=== PATIENT | male | born 1940 ===

== ENCOUNTER 2017-06-09 16:43 | Inpatient (IN) | payer MEDICARE ==
[2017-06-09 16:46] VITALS: BMI 16.6
--- NOTE | 2017-06-09 17:18 | C.PDOC ---
History Of Present Illness 77 y/o M c no known PMHx p/w general weakness, loss of appetite x 1 year. Patient lives at home alone. He states that he is increasingly weak, unable to dress himself. Fell yesterday due to lightheadedness and could not get up on his own, was helped up by 2 food delivery men after 20 minutes. Denies LOC, vomiting, diarrhea, dysuria, dyspnea, chest pain. Time Seen by Provider: 06/09/17 16:53 Chief Complaint (Nursing): Weakness/Neurological Deficit Past Medical History Vital Signs: Last Vital Signs Temp 97.4 F L 06/09/17 17:00 Pulse 88 06/09/17 18:19 Resp 20 06/09/17 18:19 BP 110/60 06/09/17 18:19 Pulse Ox 99 06/09/17 18:27 Family History: States: No Known Family Hx - Social History Hx Alcohol Use: No Hx Substance Use: No - Immunization History Hx Tetanus Toxoid Vaccination: No Hx Influenza Vaccination: No Hx Pneumococcal Vaccination: No Review Of Systems Except As Marked, All Systems Reviewed And Found Negative. Constitutional: Negative for: Fever Cardiovascular: Negative for: Chest Pain Physical Exam - Physical Exam Additional Physical Exam Comments: Constitutional: No acute distress. Elderly, frail male. Head: Normocephalic. Atraumatic. Eyes: PERRL. ENT: Dry mucous membranes. Neck: Supple. Cardiovascular: Regular rate. Radial pulses 2+ bilaterally. Chest: No tenderness. Respiratory: Clear to auscultation bilaterally. GI: Soft. Nontender. Lower abdominal protuberance. Back: No CVA tenderness. Musculoskeletal: +swelling of lower extremities. Skin: Chronic changes, lower extremities. Neurologic: Alert, no focal deficit. ED Course And Treatment - Laboratory Results Result Diagrams: 06/09/17 17:28 06/09/17 17:28 O2 Sat by Pulse Oximetry: 99 Medical Decision Making Medical Decision Making: Patient unable to care for self at home, fall risk, unsafe discharge, will require further inpatient care and likely discharge to rehab or prison. Labs reveal significant anemia, consistent with patient's symptoms. He also notes he likes ice. Chemistry shows significant uremia, elevated creatinine, hyperkalemia without EKG changes, elevated BNP. Will transfuse pRBCs slowly. Paged Dr. Wang Medicine mobile application architect for admission. He recommends Dr. Duarte for nephrology consult. Disposition Discussed With : Akhil Wang Doctor Will See Patient In The: Hospital - Disposition Disposition: HOSPITALIZED Disposition Time: 18:05 Condition: SERIOUS Forms: [facility] (Bengali) - Clinical Impression Clinical Impression: ARF (acute renal failure), Hyperkalemia, Symptomatic anemia
--- NOTE | 2017-06-09 17:29 | RAD ---
HISTORY: r/o PNA COMPARISON: None available. TECHNIQUE: Chest, one view. FINDINGS: Examination limited by patient obliquity. LUNGS: Biapical pleural thickening and granulomatous changes. Right lower lobe opacity may reflect consolidation and/or pleural effusion. No definite pneumothorax. Please note that chest x-ray has limited sensitivity for the detection of pulmonary masses. CARDIOVASCULAR: The cardiomediastinal silhouette appears within normal limits of size. OSSEOUS STRUCTURES: No acute osseous abnormality identified. VISUALIZED UPPER ABDOMEN: Elevation of the right hemidiaphragm. OTHER FINDINGS: None. IMPRESSION: Biapical pleural thickening and granulomatous changes. Right lower lobe opacity may reflect consolidation and/or pleural effusion.
[2017-06-09 17:31] LABS: BASO % 0.4 % (0.0-2.0); EOS % 0.2 % (0.0-4.0); LYMPH # 0.8 K/uL (1.0-4.3); LYMPH % 12.2 % (20.0-40.0); MEAN CELL VOLUME 108.4 fL (80.0-94.0); MEAN CORPUSCULAR HEMOGLOBIN 34.6 pg (27.0-31.0); MEAN CORPUSCULAR HGB CONC 31.9 g/dL (33.0-37.0); MEAN PLATELET VOLUME 10.4 fL (7.2-11.7); MONO # 0.3 K/uL (0.0-0.8); MONO % 4.5 % (0.0-10.0); NRBC % 0.1 % (0.0-2.0); RED CELL DISTRIBUTION WIDTH 18.3 % (11.5-14.5); WHITE BLOOD COUNT 6.6 K/uL (4.8-10.8)
[2017-06-09 17:40] LABS: INR 1.2
[2017-06-09 17:42] LABS: BILIRUBIN,TOTAL 0.8 mg/dL (0.2-1.3); TOTAL PROTEIN 7.3 g/dL (6.3-8.3)
[2017-06-09 17:43] LABS: CALCIUM 6.6 mg/dl (8.6-10.4)
[2017-06-09 17:47] LABS: ALB/GLOB RATIO 0.7 (1.0-2.1)
[2017-06-09 17:56] LABS: TROPONIN I 0.034 ng/mL (0.00-0.120)
[2017-06-09] MEDS ORDERED: Sodium Bicarbonate (8.4%) 50 Meq Syringe IVP ONE (18:33)
[2017-06-09] MEDS ORDERED: (Novolin R) Insulin Human Regular 100 units/ml vial IV ONE (18:33)
[2017-06-09] MEDS ORDERED: Dextrose 50% SYRINGE Inj (50 ml) IV STA ×2 (18:33→23:54)
[2017-06-09] MEDS ORDERED: (Novolin R) Insulin Human Regular 100 units/ml vial ONE (18:42)
[2017-06-09] MEDS ORDERED: Dextrose 50% SYRINGE Inj (50 ml) ONE (18:43)
[2017-06-09] MEDS ORDERED: Sodium Bicarbonate (8.4%) 50 Meq Syringe ONE (18:43)
[2017-06-09 21:09] LABS: IRON 47 ug/dL (49-181)
[2017-06-09 21:35] LABS: RBC URINE 17 /hpf (0-3); URINE BACTERIA RARE (<OCC); URINE BILIRUBIN NEGATIVE (NEGATIVE); URINE BLOOD 2+ (NEGATIVE); URINE COLOR Yellow (YELLOW); URINE GLUCOSE (UA) NORMAL (Normal); URINE KETONE NEGATIVE (NEGATIVE); URINE LEUKOCYTE ESTERASE 2+ Leu/uL (Negative); URINE PROTEIN NEGATIVE (NEGATIVE); URINE UROBILINOGEN NORMAL mg/dL (0.2-1.0); WBC URINE 44 /hpf (0-5)
--- NOTE | 2017-06-09 21:41 | CP.CCUPN ---
CCU Subjective - Physician Review Events Since Last Encounter (Free Text): 06/10/17 00:35 The Patient was seen and examined at the bedside, Medical records reviewed, and management issues were discussed and formulated. All clinical/lab/hemodynamic/radiographic data were reviewed 77 Years old M with no known PMHx who presented to the ER with complaint of general weakness, loss of appetite going on for one year. Also he fell yesterday due to lightheadedness and was unable to get up on his own Patient alert oriented Afebrile Denies any chest pain, Fever/chills (+) SOB On Exam noted with Bilateral swelling of legs, No evidence of active bleeding Labs significant for acute kidney injury with hyperkalemia, severe anemia, Hypocalcemia and metabolic acidosis. Pt scheduled for transfusion of 2 units packed RBCs Straight cath with 500 cc UOP, will place Beck for accurate I&O measurement in critically sick Pt CCU Objective - Vital Signs / Intake & Output Vital Signs (Last 4 hours): Vital Signs Pulse Resp BP Pulse Ox 06/09/17 21:26 88 19 102/58 L 99 06/09/17 19:15 93 H 19 108/60 100 06/09/17 18:36 99 Intake and Output (Last 8hrs): Intake & Output 06/09/17 06/09/17 06/09/17 06:59 14:59 22:59 Output Total 500 Balance -500 Output: Urine 500 - Physical Exam Physical Exam Limitations: Positive for: Clinical Condition Head: Positive for: Atraumatic, Normocephalic Pupils: Positive for: PERRL. Negative for: Sluggish, Non-Reactive Extroacular Muscles: Positive for: EOMI. Negative for: Entrapment Conjunctiva: Positive for: Normal. Negative for: Injected, Icteric Ears: Positive for: Normal, NORMAL TM Mouth: Positive for: Dry Pharnyx: Positive for: Normal. Negative for: ERYTHEMA Nose (Internal): Positive for: Normal Inspection Neck: Positive for: Normal Range of Motion, Trachea Midline. Negative for: Meningeal Signs, MIDLINE TENDERNESS, Paraspinal Tenderness, JVD, Lymphadenopathy , Bruit, Other Respiratory/Chest: Positive for: Clear to Auscultation, Good Air Exchange. Negative for: Respiratory Distress, Accessory Muscle Use, Wheezes, Decreased Breath Sounds, Rales, Retracting, Rhonchi Cardiovascular: Positive for: Regular Rate and Rhythm, Normal S1, S2, Peripheal Pulses Present. Negative for: Murmurs, Irregular Rhythm, Tachycardic, Bradycardic Abdomen: Positive for: Normal Bowel Sounds. Negative for: Tenderness, Distention, Peritoneal Signs, Rebound, Guarding Back: Positive for: Normal Inspection. Negative for: CVA Tenderness Neurological: Positive for: GCS=15, CN II-XII Intact, Speech Normal, Motor Func Grossly Intact, Normal Sensory Function Psychiatric: Positive for: Alert, Oriented x 3, Normal Insight - Patient Studies Lab Studies: Lab Studies 06/09/17 06/09/17 06/09/17 Range/Units 21:21 20:44 20:44 Iron 47 L (49-181) ug/dL TIBC 194 L (250-450) ug/dL % Saturation 24 (20-55) Ferritin 148.0 ng/mL Urine Color Yellow (YELLOW) Urine Clarity Clear (Clear) Urine pH 5.0 (5.0-8.0) Ur Specific [place] 1.011 (1.003-1.030) Urine Protein Negative (NEGATIVE) mg/dL Urine Glucose (UA) Normal (Normal) mg/dL Urine Ketones Negative (NEGATIVE) mg/dL Urine Blood 2+ H (NEGATIVE) Urine Nitrate Negative (NEGATIVE) Urine Bilirubin Negative (NEGATIVE) Urine Urobilinogen Normal (0.2-1.0) mg/dL Ur Leukocyte Esterase 2+ H (Negative) [place]/uL Urine WBC (Auto) 44 H (0-5) /hpf Urine RBC (Auto) 17 H (0-3) /hpf Urine Bacteria Rare (<OCC) Laboratory Results - last 24 hr 06/09/17 06/09/17 06/09/17 20:44 20:44 21:21 Iron 47 L TIBC 194 L % Saturation 24 Ferritin 148.0 Urine Color Yellow Urine Clarity Clear Urine pH 5.0 Ur Specific [place] 1.011 Urine Protein Negative Urine Glucose (UA) Normal Urine Ketones Negative Urine Blood 2+ H Urine Nitrate Negative Urine Bilirubin Negative Urine Urobilinogen Normal Ur Leukocyte Esterase 2+ H Urine WBC (Auto) 44 H Urine RBC (Auto) 17 H Urine Bacteria Rare Fingerstick Blood Sugar Results: 103 Review of Systems - Constitutional Constitutional: Weakness, Malaise. absent: Fever, Chills, Sweats - Cardiovascular Cardiovascular: absent: As Per HPI, Acrocyanosis, Chest Pain, Chest Pain at Rest , Chest Pain with Activity, Claudication, Diaphoresis, Dyspnea, Dyspnea on Exertion, Edema, Irregular Heart Rhythm, Pain Radiating to Arm/Neck/Jaw, Leg Edema, Leg Ulcers, Lightheadedness, Orthopnea, Palpitations, Paroxysmal Nocturnal Dyspnea, Pedal Edema, Radiating Pain, Rapid Heart Rate, Slow Heart Rate, Syncope, Other, UNREMARKABLE - Respiratory Respiratory: absent: As Per HPI, Cough, Dyspnea, Hemoptysis, Dyspnea on Exertion , Wheezing, Snoring, Stridor, Pain on Inspiration, Chest Congestion, Excessive Mucous Production, Change in Mucous Color, Pain with Coughing, Other, UNREMARKABLE Critical Care Progress Note - Extremities/Vascular Does the Patient have a Central Venous Catheter?: No Does the Patient need a Central Venous Catheter?: No Does the Patient have a Bcek Catheter?: Yes Does the Patient need a Beck Catheter?: Yes Assessment/Plan (1) ARF (acute renal failure) Current Visit: Yes Status: Acute Comment: Most likely postobstructive Continue IV fluids and monitor BUN and creatinine Hemodialysis if necessary Transfuse packed RBCs and anemia workup IV albumin and improve nutritional status (2) Hyperkalemia Current Visit: Yes Status: Acute Comment: Received hyperkalemia cocktail in the ER, will give Kayaxalate, Bicarb drip Repeat K level Low K diet Serial EKG Will place Beck for accurate I&O measurement in critically sick Pt (3) Symptomatic anemia Current Visit: Yes Status: Acute Comment: R/O GI bleeding Admit to ICU sec to hemodynamic instability Active type and screen sent, will transfuse 2U packed RBC Two large bore peripheral catheters Supplemental O2 NPO Volume resuscitation IV Hydration IV PANTOPRAZOLE Serial CBCs q 8 /HR (4) Metabolic acidosis Current Visit: Yes Status: Acute - Assessment and Plan (Free Text) Assessment: Total critical care time 62 minutes Full code
[2017-06-09] MEDS ORDERED: Sod Polystyrene Sulf 15 gm/60 ml Oral Susp PO ONE (21:42)
[2017-06-09] MEDS ORDERED: Calcium Gluconate 4.65 MEQ in Dextrose 5% In Water 100 ML IV ONE (21:42)
[2017-06-09] MEDS ORDERED: Sodium Chloride 0.9% 1,000 ML IV SCH (21:45)
--- NOTE | 2017-06-09 21:46 | CP.PCM.HP ---
History of Present Illness - History of Present Illness History of Present Illness: COMPREHENSIVE HISTORY & PHYSICAL EXAM HPI PT. WAS FOUND ON FLOOR . 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 ON THE DAY OF ADMISSION PT FELL AND BROUGHT TO ER WITH ACUTE RENAL FAILURE AND SEVERE ANEMIA . NO PREVIOUS H/O RENAL FAILURE/HTN/DM /BONE FX. PAST HIST. RENAL STONE PERSONAL HIST: Smoking. N Alcohol. N Allergy N Travel_- . FAMILY HIST : ROS : Constitutional: PT APPEARS CACHETIC AND WEAK Eyes: Negative for redness, swelling, itching, discharge, vision changes, blurry vision, double vision, glaucoma, cataracts, Ears: Negative for hearing loss, ringing, , tinnitus, vertigo Nose: Negative for rhinorrhea, stuffiness, sniffing, itching, postnasal drip, discoloration, nasal congestion and epistaxis. Throat: Negative for throat clearing, sore throat, hoarseness, difficulty swallowing and difficulty speaking. Respiratory: Negative for cough, , sputum production, chest tightness, wheezing, pleuritic chest pain ,daytime somnolence, chronic cough, hemoptysis, snoring at night, Cardiovascular: Negative for chest pain, palpitations, orthopnea, PND, Edema of legs, leg cramps, angina, claudication, , irregular heartbeat, Neurology: Negative for irritability, muscle weakness, numbness and tingling, seizures, tremors, migraines, slurred speech, syncope, memory loss, mood changes , recurrent headaches Gastrointestinal: Negative for difficulty swallowing, diarrhea, constipation, black stools, rectal bleeding, nausea, flatulence, reflux, poor appetite, changes in bowel habits, abdominal pain Genitourinary: Negative for frequent urination, hematuria, discharge, incontinencefrequent UTI, . POS URINARY RETENSION Psychiatric: Negative for depression, anxiety/panic, suicidal tendencies, Musculoskeletal: Negative for swollen joints, back pain, , neck pain, morning stiffness of joints, . Skin: Negative for rash, ulcers, itching, dry skin and pigmented lesions. P/E: Constitutional: Appears stated age and in no apparent distress. Head: Normocephalic. Ears: External ear canals patent without inflammation. Tympanic membranes intact with normal light reflex and landmark. Eyes: Pupils are central, bilaterally equal, symmetrical and reacts to light with normal movements and no icterus or pallor. Nose: External nares are patent. Mucosa is pink Mouth-Throat: Good general appearance and condition. No post-pharyngeal/oropharyngeal erythema and tonsillar hypertrophy. Good dental hygiene. Neck-Lymphatic: Neck is supple with normal ROM, no thyromegaly, lymph nodes or masses. JVD is normal with no carotid bruit. Lungs: Clear to percussion and auscultation with bilateral normal air entry. Cardiovascular: S1 and S2 are normal with no murmurs, gallops and rub. GI Exam: No hepatomegaly. Abdomen is soft and non-tender. No Organomegaly , masses or hernias are evident and bowel sounds are normal and active. DISTENSION OF LOWER ABD Neurology: Higher function and all cranial nerves intact, with no gross motor or sensory deficit. Superficial and deep reflexes are normal with downwards planters. No cerebellar deficit with normal gait. Musculoskeletal: No tender spots with normal curvature of the spine with no swelling or restricted ROM of the small and large joints. Extremities EDEMA WITH CH. SKIN CHANGES Skin: No rash, eruptions or abnormal skin pigmentation LAB/RADIOLOGY: ASSESMENT : ACTE RENAL FAILURE , PROBABLY POST RENAL ANEMIA OCCULT MALIGNANCY /SEPSIS PLAN: URGENT DIALYSIS BLOOD TRANSFUSION Present on Admission - Present on Admission Any Indicators Present on Admission: No Past Patient History - Past Social History Smoking Status: Never Smoked - PSYCHIATRIC Hx Substance Use: No - SURGICAL HISTORY Hx Surgeries: No Meds Allergies/Adverse Reactions: Allergies Allergy/AdvReac Type Severity Reaction Status Date / Time seasonal allergies Allergy Uncoded 06/09/17 16:45 Results - Vital Signs Recent Vital Signs: Last Vital Signs Temp 97.4 F L 06/09/17 17:00 Pulse 88 06/09/17 21:26 Resp 19 06/09/17 21:26 BP 102/58 L 06/09/17 21:26 Pulse Ox 99 06/09/17 21:26 - Labs Result Diagrams: 06/13/17 05:59 06/13/17 05:59 Labs: Laboratory Results - last 24 hr 06/09/17 06/09/17 06/09/17 20:44 20:44 21:21 Iron 47 L TIBC 194 L % Saturation 24 Ferritin 148.0 Urine Color Yellow Urine Clarity Clear Urine pH 5.0 Ur Specific [place] 1.011 Urine Protein Negative Urine Glucose (UA) Normal Urine Ketones Negative Urine Blood 2+ H Urine Nitrate Negative Urine Bilirubin Negative Urine Urobilinogen Normal Ur Leukocyte Esterase 2+ H Urine WBC (Auto) 44 H Urine RBC (Auto) 17 H Urine Bacteria Rare
[2017-06-09] MEDS ORDERED: Sodium Bicarbonate 8.4% 150 MEQ in Dextrose 5% In Water 850 ML IV SCH (22:00)
--- NOTE | 2017-06-09 22:06 | CP.PCM.CON ---
History of Present Illness - History of Present Illness History of Present Illness: pt is seen and examined, full consult is dictated # [id number] 1. renal failure, most likely , ESRD 2. Hyperkalemia, sec to renal failure 3. High AG met.acidosis 4. 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 Past Patient History - Past Social History Smoking Status: Never Smoked - PSYCHIATRIC Hx Substance Use: No - SURGICAL HISTORY Hx Surgeries: No Meds Allergies/Adverse Reactions: Allergies Allergy/AdvReac Type Severity Reaction Status Date / Time seasonal allergies Allergy Uncoded 06/09/17 16:45 - Medications Medications: Current Medications Calcium Gluconate 4.65 meq/ (Dextrose) 110 mls @ 100 mls/hr IV ONCE ONE Stop: 06/09/17 22:47 Sodium Chloride (Sodium Chloride 0.9%) 1,000 mls @ 75 mls/hr IV .[id number] TANI Sodium Bicarbonate 150 meq/ (Dextrose) 1,000 mls @ 70 mls/hr IV .[id number] TANI Results - Vital Signs Recent Vital Signs: Last Vital Signs Temp 97.4 F L 06/09/17 17:00 Pulse 88 06/09/17 21:26 Resp 19 06/09/17 21:26 BP 102/58 L 06/09/17 21:26 Pulse Ox 99 06/09/17 21:26 - Labs Result Diagrams: 06/09/17 23:02 06/09/17 23:02 Labs: Laboratory Results - last 24 hr 06/09/17 06/09/17 06/09/17 20:44 20:44 21:21 Iron 47 L TIBC 194 L % Saturation 24 Ferritin 148.0 Urine Color Yellow Urine Clarity Clear Urine pH 5.0 Ur Specific [place] 1.011 Urine Protein Negative Urine Glucose (UA) Normal Urine Ketones Negative Urine Blood 2+ H Urine Nitrate Negative Urine Bilirubin Negative Urine Urobilinogen Normal Ur Leukocyte Esterase 2+ H Urine WBC (Auto) 44 H Urine RBC (Auto) 17 H Urine Bacteria Rare
[2017-06-09] MEDS ORDERED: Sodium Chloride 0.9% 1,000 ML ONE (22:13)
[2017-06-09] MEDS ORDERED: Sod Polystyrene Sulf 15 gm/60 ml Oral Susp ONE (22:13)
[2017-06-09 23:09] LABS: BASO % 0.3 % (0.0-2.0); EOS % 0.5 % (0.0-4.0); HEMATOCRIT 17.5 % (35.0-51.0); LYMPH # 1.8 K/uL (1.0-4.3); LYMPH % 22.7 % (20.0-40.0); MEAN CELL VOLUME 108.7 fL (80.0-94.0); MEAN CORPUSCULAR HEMOGLOBIN 34.4 pg (27.0-31.0); MEAN CORPUSCULAR HGB CONC 31.6 g/dL (33.0-37.0); MEAN PLATELET VOLUME 10.4 fL (7.2-11.7); MONO # 0.4 K/uL (0.0-0.8); MONO % 5.6 % (0.0-10.0); WHITE BLOOD COUNT 7.8 K/uL (4.8-10.8)
[2017-06-09 23:24] LABS: CHLORIDE 116 mmol/L (98-107)
[2017-06-09 23:25] LABS: SODIUM 150 mmol/L (132-148)
--- NOTE | 2017-06-09 23:25 | US ---
EXAM: US Retroperitoneal Limited, Renal CLINICAL HISTORY: 77 years old, male; Signs and symptoms; Other: Anemia/renal failure; Additional info: Renal filure R/O hydro, kidney size TECHNIQUE: Real-time ultrasound of the retroperitoneum (limited) with image documentation. COMPARISON: No relevant prior studies available. FINDINGS: Right kidney: Moderate hydronephrosis. No stones. No solid mass. Left kidney: Moderate hydronephrosis No stones. No solid mass. Other findings: A vascular mass is identified within the bladder measuring 5.2 cm in greatest dimension. A Beck balloon is also noted. IMPRESSION: Bilateral hydronephrosis. Bladder mass.
[2017-06-09 23:27] LABS: ALKALINE PHOSPHATASE 76 U/L (38-126); AST/SGOT 16 U/L (17-59); BILIRUBIN,TOTAL 0.8 mg/dL (0.2-1.3); CARBON DIOXIDE 13 mmol/L (22-30); GFR AFRICAN-AMERICAN 6; GLUCOSE,RANDOM 60 mg/dL (75-110); TOTAL PROTEIN 6.9 g/dL (6.3-8.3)
[2017-06-09 23:28] LABS: ALT/SGPT 34 U/L (21-72); CALCIUM 6.7 mg/dl (8.6-10.4); PHOSPHOROUS 8.1 mg/dL (2.5-4.5)
[2017-06-09 23:37] LABS: ALB/GLOB RATIO 0.6 (1.0-2.1)
[2017-06-09 23:50] LABS: BLOOD UREA NITROGEN 142 mg/dL (9-20)
[2017-06-10 00:38] LABS: VENOUS BLOOD GAS BASE EXCESS -11.2 mmol/L (0.0-2.0); VENOUS BLOOD GAS PCO2 33 mmHg (40-60); VENOUS BLOOD PH 7.26 (7.32-7.43)
[2017-06-10 07:00] LABS: BASO % 0.5 % (0.0-2.0); EOS % 0.5 % (0.0-4.0); HEMATOCRIT 20.3 % (35.0-51.0); LYMPH # 0.6 K/uL (1.0-4.3); LYMPH % 12.7 % (20.0-40.0); MEAN CORPUSCULAR HEMOGLOBIN 33.6 pg (27.0-31.0); MEAN CORPUSCULAR HGB CONC 32.6 g/dL (33.0-37.0); MEAN PLATELET VOLUME 10.6 fL (7.2-11.7); MONO # 0.3 K/uL (0.0-0.8); MONO % 5.4 % (0.0-10.0); NRBC % 0.1 % (0.0-2.0); RED CELL DISTRIBUTION WIDTH 19.1 % (11.5-14.5); WHITE BLOOD COUNT 5.1 K/uL (4.8-10.8)
[2017-06-10 07:14] LABS: ALB/GLOB RATIO 0.7 (1.0-2.1); BILIRUBIN,TOTAL 0.5 mg/dL (0.2-1.3); CALCIUM 6.4 mg/dl (8.6-10.4); MAGNESIUM 1.2 mg/dL (1.6-2.3); PHOSPHOROUS 8.3 mg/dL (2.5-4.5); POTASSIUM 4.3 mmol/L (3.6-5.2)
[2017-06-10 07:43] LABS: PROSTATE SPECIFIC ANTIGEN 3.55 ng/mL (0.00-4.0)
[2017-06-10] MEDS ORDERED: Sodium Chloride 0.45% 1,000 ML IV SCH (08:00)
[2017-06-10] MEDS ORDERED: Sodium Chloride 0.9% 1,000 ML IV SCH (08:15)
[2017-06-10 09:10] LABS: CREATININE, RANDOM URINE 42.8 mg/dL
[2017-06-10] MEDS ORDERED: Sodium Chloride 0.45% 1,000 ML IV ONE (09:39)
[2017-06-10] MEDS: WATER IV SCH ×2 (11:02→19:13)
[2017-06-10] MEDS: [UNRECOGNIZED DRUG - OTHER] IV SCH ×2 (11:02→19:13)
[2017-06-10] MEDS: DEXTROSE IV SCH ×2 (11:02→19:13)
[2017-06-10] MEDS: Magnesium Sulfate 1 gm in D5W 1 GM/100 ML BAG IVPB SCH (11:03)
--- NOTE | 2017-06-10 12:12 | CON ---
DATE: The patient is located in emergency room and requested by Dr. Akhil Wang. REASON FOR RENAL CONSULTATION: Hyperkalemia, metabolic acidosis, renal failure, and severe anemia, and for further evaluation. HISTORY OF PRESENT ILLNESS: Mr. Palmer is a 77-year-old cachectic, very pleasant, male with past medical history significant for nephrolithiasis and passing stones about 20-30 years ago, never seen a physician in the last 20-30 years, and the patient was presented to the emergency room with a chief complaint of severe weakness and complains of history of fall yesterday and unable to get up and two of the food delivery people put him back on the bed and the patient came to the emergency room with complaints of difficulty to urinate on and off and also weight loss, nausea and poor appetite, weight loss about 50 pounds in the last 6-8 months. The patient also complains of bilateral leg swelling for a long time. Denies any abdominal pain. Patient has complains of abdominal distention for a long time. PAST MEDICAL HISTORY: Significant for nephrolithiasis. PAST SURGICAL HISTORY: Denies any surgeries. ALLERGIES: No known drug allergies. SOCIAL HISTORY: Denies any smoking, alcohol or drugs. PERSONAL HISTORY: He is single, and he has 1 child . FAMILY HISTORY: Not significant. REVIEW OF SYSTEMS: Significant for bilateral leg swelling, severe weakness and unable to put even his pants and unable to stand and also significant for weight loss and is also significant for anemia and also abdominal distention and difficulty to urinate. All other review of systems are reviewed and are negative. PHYSICAL EXAMINATION: VITAL SIGNS: In the emergency room, blood pressure of 114/64, pulse about 85, respirations are 20, afebrile. Height 5 feet 5 inches. Weight is 100 pounds. GENERAL: Mr. Palmer is a 77-year-old elderly, very thin, cachectic male, not in acute distress. HEENT: Pupils are normal and reactive to light and accommodation. Conjunctivae pink. Sclerae anicteric. Tongue is moist. Trachea is midline. LUNGS: Symmetric on both sides. Bilateral breath sounds present. Clear to auscultation. CARDIOVASCULAR SYSTEM: [place] at the fifth intercostal space, half inch medial to midclavicular line. S1 and S2 audible. No murmur or gallop. ABDOMEN: Normal in appearance. Bladder distended up to the epigastric region, dullness on percussion, no guarding. No rigidity. No abdominal bruit. CENTRAL NERVOUS SYSTEM: The patient is alert, awake, oriented x3. Nonfocal neuro examination. Cranial nerves II through XII grossly intact. Sensory and motor system is within normal limits. EXTREMITIES: No cyanosis, no clubbing. The patient has 2+ edema in both lower extremities. Chronic stasis changes present in both lower extremities with skin pigmentation. LABORATORY DATA: His current laboratory data include as follows as of 06/09/2017. WBC 6.6, hemoglobin 5.8, hematocrit is 18, platelets of 103. PT 13, PTT 33. Sodium 147, potassium 6, chloride 116, bicarbonate is 11, BUN 152, creatinine 10.4, and glucose is 103. Calcium is 6.6. Total bili 0.8, AST 26, ALT 31, alkaline phosphatase 105. CPK is 62 and CK-MB 0.92. Troponin 0.34. ProBNP 75,900 and total protein 7.3, albumin is 2.9 and globulin is 4.4. Lipase is 188. Urinalysis is yellow, clear, pH 5, specific gravity 1.011, protein negative. Glucose normal, ketones negative, blood 2+ and nitrites negative. Bilirubin is negative. Urobilinogen normal. Leukocyte esterase is 2+, wbc's 44, rbc's 17, bacteria rare. C3 of 71 and C4 is 19.7. Hepatitis B surface antigen is pending. His other laboroatory data; chest x-ray, bilateral pleural thickening and granulomatous changes, right lower lobe opacity may reflect consolidation and/or pleural effusion. Ultrasound of the kidneys and bladder, the right kidney measures 9.6 x 5.9 x 4.8 cm and the left kidney measures 10.5 x 7.3 x 5.8 cm. Initial report created on 06/09/2017 at 11:24 p.m. and right kidney, moderate hydronephrosis, no stone or no solid mass. Left kidney, moderate hydronephrosis with no stone, no solid mass. Vascular mass identified within the bladder measuring 5.2 cm in greatest dimension. A Beck balloon is also noted. ASSESSMENT: In summary, Estela is about 77-year-old very cachectic, thin built, male with a history of nephrolithiasis and passing stone about 20-30 years ago, presented to the emergency room after he had fall yesterday and unable to get up and the food delivery people put him back on the bed and after admitted through the emergency room with a chief complaint of severe weakness, unable to stand and even to put his pants, and he complains of severe severe weakness and found to have a low H and H and bladder was distended up to the epigastric region and increased BUN and creatinine, low bicarbonate, and hyperkalemia. 1. Renal failure secondary to obstructive uropathy and bladder outlet obstruction, rule out BPH, rule out hydronephrosis. 2. Metabolic acidosis, high anion gap secondary to renal failure. 3. Hyperkalemia. 4. Severe anemia. 5. Bladder distention secondary to bladder outlet obstruction, rule out BPH and rule hydronephrosis. Also Beck catheter was placed in the emergency room and drained about 2000 mL of dark yellow fluid. After 2000 mL of drainage, Beck catheter was clamped and abdominal distention completely disappeared, and able to feel mass in the suprapubic region about 3-4 cm, hard in consistency. 7. A stat ultrasound Doppler was sent and consistent with bilateral hydronephrosis and bladder mass about 5 cm with vascularity. PLAN: Continue IV fluids, bicarbonate drip at 70 mL per hour and followup repeat BMP, agree with Kayexalate and D15 saline, calcium gluconate, IV sodium bicarb and repeat BMP and also check hepatitis B and C serology, ALDAIR, SPEP, UPEP, serum immunofixation, urine immunofixation and consult Urology evaluation. May need a cystoscopy and also check PSA level in a.m. Discussed with the patient, we will wait for the dialysis until tomorrow for further evaluation and if renal function does not improve, the patient may need temporary dialysis and also transfuse 2 units each unit over 3-4 hours and Lasix p.rObin. Discussed with ICU attending Dr. Ruffin this evening. Thank you for allowing me to participate in your patient's care. Ruthann Duarte MD
[2017-06-10 12:47] LABS: BASO % 0.4 % (0.0-2.0); EOS % 0.7 % (0.0-4.0); HEMATOCRIT 20.1 % (35.0-51.0); LYMPH # 0.4 K/uL (1.0-4.3); LYMPH % 8.1 % (20.0-40.0); MEAN CORPUSCULAR HGB CONC 32.6 g/dL (33.0-37.0); MEAN PLATELET VOLUME 10.1 fL (7.2-11.7); MONO # 0.2 K/uL (0.0-0.8); MONO % 4.2 % (0.0-10.0); NRBC % 0.1 % (0.0-2.0); POTASSIUM 3.5 mmol/L (3.6-5.2); RED CELL DISTRIBUTION WIDTH 21.7 % (11.5-14.5); WHITE BLOOD COUNT 4.7 K/uL (4.8-10.8)
[2017-06-10 12:50] LABS: ALB/GLOB RATIO 0.6 (1.0-2.1); BILIRUBIN,TOTAL 0.7 mg/dL (0.2-1.3); TOTAL PROTEIN 5.1 g/dL (6.3-8.3)
[2017-06-10 12:53] LABS: MEAN CELL VOLUME 98.1 fL (80.0-94.0)
[2017-06-10 12:54] LABS: PLATELET COUNT 71 K/uL (130-400)
[2017-06-10 13:02] LABS: CALCIUM 5.3 mg/dl (8.6-10.4)
[2017-06-10 13:15] LABS: EOSINOPHIL 1 % (0-4); NEUTROPHIL 85 % (50-75); NUCLEATED RED BLOOD CELL 2 % (0-0); TOTAL CELLS COUNTED 100
[2017-06-10 13:17] LABS: ACANTHOCYTES SLIGHT
--- NOTE | 2017-06-10 13:37 | CP.CCUPN ---
CCU Subjective - Physician Review Events Since Last Encounter (Free Text): 06/10/17 13:34 Patient seen and examined in the intensive care unit. Case discussed with all staff in the morning. 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 Good urine output after Beck catheter insertion with improving renal function Status post transfusion of 2 units packed RBCs with no active bleeding Patient alert oriented Afebrile Denies any chest pain Bilateral swelling of legs CCU Objective - Vital Signs / Intake & Output Vital Signs (Last 4 hours): Vital Signs Temp Pulse Resp BP Pulse Ox 06/10/17 12:00 97.5 F L 70 14 92/49 L 98 06/10/17 11:01 79 14 99/54 L 99 06/10/17 11:00 78 14 99 06/10/17 10:56 83 16 99/58 L 100 06/10/17 10:00 82 12 96/58 L 98 06/10/17 09:52 97.5 F L 72 15 92/51 L Intake and Output (Last 8hrs): Intake & Output 06/09/17 06/10/17 06/10/17 22:59 06:59 14:59 Intake Total 770 2240 Output Total 500 3000 370 Balance -500 -2230 1870 Weight 63 lb 14.945 oz Intake: Intake, IV Amount 320 1815 Left Forearm 440 Right Forearm 320 1375 Blood Product 450 425 Red Blood Cells Cpd As1 0 325 Lr Unit [id number] Output: Urine 500 3000 370 Urethral (Beck) 1000 370 Other: Voiding Method Indwelling Catheter # Bowel Movements 1 - Physical Exam Head: Positive for: Atraumatic, Normocephalic Pupils: Positive for: PERRL. Negative for: Sluggish, Non-Reactive Extroacular Muscles: Positive for: EOMI. Negative for: Entrapment Conjunctiva: Positive for: Normal. Negative for: Injected, Icteric Ears: Positive for: Normal, NORMAL TM Mouth: Positive for: Dry Pharnyx: Positive for: Normal. Negative for: ERYTHEMA Nose (Internal): Positive for: Normal Inspection Neck: Positive for: Normal Range of Motion, Trachea Midline. Negative for: Meningeal Signs, MIDLINE TENDERNESS, Paraspinal Tenderness, JVD, Lymphadenopathy , Bruit, Other Respiratory/Chest: Positive for: Clear to Auscultation, Good Air Exchange. Negative for: Respiratory Distress, Accessory Muscle Use, Wheezes, Decreased Breath Sounds, Rales, Retracting, Rhonchi Cardiovascular: Positive for: Regular Rate and Rhythm, Normal S1, S2, Peripheal Pulses Present. Negative for: Murmurs, Irregular Rhythm, Tachycardic, Bradycardic Abdomen: Positive for: Normal Bowel Sounds. Negative for: Tenderness, Distention, Peritoneal Signs, Rebound, Guarding Back: Positive for: Normal Inspection. Negative for: CVA Tenderness Neurological: Positive for: GCS=15, CN II-XII Intact, Speech Normal, Motor Func Grossly Intact, Normal Sensory Function Psychiatric: Positive for: Alert, Oriented x 3, Normal Insight - Medications Active Medications: Active Medications Generic Name Dose Route Start Last Admin Trade Name Freq PRN Reason Stop Dose Admin Famotidine 20 mg 06/10/17 10:00 06/10/17 11:06 Pepcid IVP 20 mg DAILY TANI Administration Sodium Chloride 1,000 mls @ 125 mls/hr 06/10/17 09:00 06/10/17 11:02 Sodium Chloride 0.45% IV 125 mls/hr .BY DURATION TANI Administration Dextrose 1,000 mls @ 125 mls/hr 06/10/17 09:00 Dextrose 5% In Water 1000 Ml IV .BY DURATION TANI - Patient Studies Lab Studies: Lab Studies 06/10/17 06/10/17 06/10/17 Range/Units 12:29 12:29 11:52 WBC 4.7 L (4.8-10.8) K/uL RBC 2.05 L (4.40-5.90) Mil/uL Hgb 6.6 L (12.0-18.0) g/dL Hct 20.1 L (35.0-51.0) % MCV 98.1 H D (80.0-94.0) fL MCH 32.0 H (27.0-31.0) pg MCHC 32.6 L (33.0-37.0) g/dL RDW 21.7 H (11.5-14.5) % Plt Count 71 L (130-400) K/uL MPV 10.1 (7.2-11.7) fL Neut % (Auto) 86.6 H (50.0-75.0) % Lymph % (Auto) 8.1 L (20.0-40.0) % Edmunds % (Auto) 4.2 (0.0-10.0) % Eos % (Auto) 0.7 (0.0-4.0) % Baso % (Auto) 0.4 (0.0-2.0) % Neut # 4.1 (1.8-7.0) K/uL Lymph # 0.4 L (1.0-4.3) K/uL Edmunds # 0.2 (0.0-0.8) K/uL Eos # 0.0 (0.0-0.7) K/uL Baso # 0.0 (0.0-0.2) K/uL Neutrophils % (Manual) 85 H (50-75) % Lymphocytes % (Manual) 12 L (20-40) % Monocytes % (Manual) 2 (0-10) % Eosinophils % (Manual) 1 (0-4) % Nucleated RBC % 2 H (0-0) % Platelet Estimate Decreased L (NORMAL) Hypochromasia (manual) Slight Poikilocytosis (manual Slight Anisocytosis (manual) Moderate Microcytosis (manual) Slight Macrocytosis (manual) Slight Tear Drop Cells Slight Ovalocytes Slight Duc Cells Slight Acanthocytes (Spur) Slight Schistocytes Slight Puncture Site pO2 (30-55) mm/Hg Scar Test VBG pH (7.32-7.43) VBG pCO2 (40-60) mmHg VBG HCO3 mmol/L VBG O2 Sat (Calc) (40-65) % VBG Base Excess (0.0-2.0) mmol/L Sodium 143 (132-148) mmol/L Potassium 3.5 L (3.6-5.2) mmol/L Chloride 117 H (98-107) mmol/L Carbon Dioxide 12 L (22-30) mmol/L Anion Gap 18 (10-20) BUN 116 H* (9-20) mg/dL Creatinine 8.2 H* (0.8-1.5) MG/DL Est GFR ( Amer) 8 Est GFR (Non-Af Amer) 6 POC Glucose (mg/dL) 101 (65-110) mg/dL Random Glucose 85 (75-110) mg/dL Calcium 5.3 L* (8.6-10.4) mg/dl Phosphorus (2.5-4.5) mg/dL Magnesium (1.6-2.3) mg/dL Iron (49-181) ug/dL TIBC (250-450) ug/dL % Saturation (20-55) Ferritin ng/mL Total Bilirubin 0.7 (0.2-1.3) mg/dL AST 20 (17-59) U/L ALT 37 (21-72) U/L Alkaline Phosphatase 51 (38-126) U/L Total Creatine Kinase (55-170) U/L Troponin I (0.00-0.120) ng/mL Total Protein 5.1 L (6.3-8.3) g/dL Albumin 1.8 L D (3.5-5.0) g/dL Globulin 3.3 (2.2-3.9) gm/dL Albumin/Globulin Ratio 0.6 L (1.0-2.1) Prostate Specific Ag (0.00-4.0) ng/mL Urine Color (YELLOW) Urine Clarity (Clear) Urine pH (5.0-8.0) Ur Specific [place] (1.003-1.030) Urine Protein (NEGATIVE) mg/dL Urine Glucose (UA) (Normal) mg/dL Urine Ketones (NEGATIVE) mg/dL Urine Blood (NEGATIVE) Urine Nitrate (NEGATIVE) Urine Bilirubin (NEGATIVE) Urine Urobilinogen (0.2-1.0) mg/dL Ur Leukocyte Esterase (Negative) Brandon/uL Urine WBC (Auto) (0-5) /hpf Urine RBC (Auto) (0-3) /hpf Urine Bacteria (<OCC) Urine Osmolality (300-1000) mosm/kg Ur Random Creatinine mg/dL Ur Random Sodium mmol/L Stool Occult Blood (NEGATIVE) Complement C3 (88.0-165.0) mg/dL Complement C4 (14.0-44.0) mg/dL 06/10/17 06/10/17 06/10/17 Range/Units 08:56 06:52 06:48 WBC 5.1 (4.8-10.8) K/uL RBC 1.97 L (4.40-5.90) Mil/uL Hgb 6.6 L (12.0-18.0) g/dL Hct 20.3 L (35.0-51.0) % MCV 103.0 H D (80.0-94.0) fL MCH 33.6 H (27.0-31.0) pg MCHC 32.6 L (33.0-37.0) g/dL RDW 19.1 H (11.5-14.5) % Plt Count 90 L (130-400) K/uL MPV 10.6 (7.2-11.7) fL Neut % (Auto) 80.9 H (50.0-75.0) % Lymph % (Auto) 12.7 L (20.0-40.0) % Edmunds % (Auto) 5.4 (0.0-10.0) % Eos % (Auto) 0.5 (0.0-4.0) % Baso % (Auto) 0.5 (0.0-2.0) % Neut # 4.1 (1.8-7.0) K/uL Lymph # 0.6 L (1.0-4.3) K/uL Edmunds # 0.3 (0.0-0.8) K/uL Eos # 0.0 (0.0-0.7) K/uL Baso # 0.0 (0.0-0.2) K/uL Neutrophils % (Manual) (50-75) % Lymphocytes % (Manual) (20-40) % Monocytes % (Manual) (0-10) % Eosinophils % (Manual) (0-4) % Nucleated RBC % (0-0) % Platelet Estimate (NORMAL) Hypochromasia (manual) Poikilocytosis (manual Anisocytosis (manual) Microcytosis (manual) Macrocytosis (manual) Tear Drop Cells Ovalocytes [place] Cells Acanthocytes (Spur) Schistocytes Puncture Site pO2 (30-55) mm/Hg Scar Test VBG pH (7.32-7.43) VBG pCO2 (40-60) mmHg VBG HCO3 mmol/L VBG O2 Sat (Calc) (40-65) % VBG Base Excess (0.0-2.0) mmol/L Sodium 148 (132-148) mmol/L Potassium 4.3 (3.6-5.2) mmol/L Chloride 117 H (98-107) mmol/L Carbon Dioxide 12 L (22-30) mmol/L Anion Gap 23 H (10-20) BUN 141 H* (9-20) mg/dL Creatinine 10.1 H* (0.8-1.5) MG/DL Est GFR ( Amer) 6 Est GFR (Non-Af Amer) 5 POC Glucose (mg/dL) (65-110) mg/dL Random Glucose 98 (75-110) mg/dL Calcium 6.4 L (8.6-10.4) mg/dl Phosphorus 8.3 H (2.5-4.5) mg/dL Magnesium 1.2 L (1.6-2.3) mg/dL Iron (49-181) ug/dL TIBC (250-450) ug/dL % Saturation (20-55) Ferritin ng/mL Total Bilirubin 0.5 (0.2-1.3) mg/dL AST 31 (17-59) U/L ALT 38 (21-72) U/L Alkaline Phosphatase 66 (38-126) U/L Total Creatine Kinase (55-170) U/L Troponin I (0.00-0.120) ng/mL Total Protein 6.0 L (6.3-8.3) g/dL Albumin 2.4 L (3.5-5.0) g/dL Globulin 3.6 (2.2-3.9) gm/dL Albumin/Globulin Ratio 0.7 L (1.0-2.1) Prostate Specific Ag 3.55 (0.00-4.0) ng/mL Urine Color (YELLOW) Urine Clarity (Clear) Urine pH (5.0-8.0) Ur Specific [place] (1.003-1.030) Urine Protein (NEGATIVE) mg/dL Urine Glucose (UA) (Normal) mg/dL Urine Ketones (NEGATIVE) mg/dL Urine Blood (NEGATIVE) Urine Nitrate (NEGATIVE) Urine Bilirubin (NEGATIVE) Urine Urobilinogen (0.2-1.0) mg/dL Ur Leukocyte Esterase (Negative) Brandon/uL Urine WBC (Auto) (0-5) /hpf Urine RBC (Auto) (0-3) /hpf Urine Bacteria (<OCC) Urine Osmolality 359 (300-1000) mosm/kg Ur Random Creatinine 42.8 mg/dL Ur Random Sodium 95 mmol/L Stool Occult Blood (NEGATIVE) Complement C3 (88.0-165.0) mg/dL Complement C4 (14.0-44.0) mg/dL 06/10/17 06/10/17 06/10/17 Range/Units 06:47 05:54 00:33 WBC (4.8-10.8) K/uL RBC (4.40-5.90) Mil/uL Hgb (12.0-18.0) g/dL Hct (35.0-51.0) % MCV (80.0-94.0) fL MCH (27.0-31.0) pg MCHC (33.0-37.0) g/dL RDW (11.5-14.5) % Plt Count (130-400) K/uL MPV (7.2-11.7) fL Neut % (Auto) (50.0-75.0) % Lymph % (Auto) (20.0-40.0) % Edmunds % (Auto) (0.0-10.0) % Eos % (Auto) (0.0-4.0) % Baso % (Auto) (0.0-2.0) % Neut # (1.8-7.0) K/uL Lymph # (1.0-4.3) K/uL Edmunds # (0.0-0.8) K/uL Eos # (0.0-0.7) K/uL Baso # (0.0-0.2) K/uL Neutrophils % (Manual) (50-75) % Lymphocytes % (Manual) (20-40) % Monocytes % (Manual) (0-10) % Eosinophils % (Manual) (0-4) % Nucleated RBC % (0-0) % Platelet Estimate (NORMAL) Hypochromasia (manual) Poikilocytosis (manual Anisocytosis (manual) Microcytosis (manual) Macrocytosis (manual) Tear Drop Cells Ovalocytes [place] Cells Acanthocytes (Spur) Schistocytes Puncture Site Na pO2 27 L (30-55) mm/Hg Scar Test Na VBG pH 7.26 L (7.32-7.43) VBG pCO2 33 L (40-60) mmHg VBG HCO3 14.6 mmol/L VBG O2 Sat (Calc) 55.9 (40-65) % VBG Base Excess -11.2 L (0.0-2.0) mmol/L Sodium (132-148) mmol/L Potassium (3.6-5.2) mmol/L Chloride (98-107) mmol/L Carbon Dioxide (22-30) mmol/L Anion Gap (10-20) BUN (9-20) mg/dL Creatinine (0.8-1.5) MG/DL Est GFR ( Amer) Est GFR (Non-Af Amer) POC Glucose (mg/dL) 118 H (65-110) mg/dL Random Glucose (75-110) mg/dL Calcium (8.6-10.4) mg/dl Phosphorus (2.5-4.5) mg/dL Magnesium (1.6-2.3) mg/dL Iron (49-181) ug/dL TIBC (250-450) ug/dL % Saturation (20-55) Ferritin ng/mL Total Bilirubin (0.2-1.3) mg/dL AST (17-59) U/L ALT (21-72) U/L Alkaline Phosphatase (38-126) U/L Total Creatine Kinase (55-170) U/L Troponin I (0.00-0.120) ng/mL Total Protein (6.3-8.3) g/dL Albumin (3.5-5.0) g/dL Globulin (2.2-3.9) gm/dL Albumin/Globulin Ratio (1.0-2.1) Prostate Specific Ag (0.00-4.0) ng/mL Urine Color (YELLOW) Urine Clarity (Clear) Urine pH (5.0-8.0) Ur Specific [place] (1.003-1.030) Urine Protein (NEGATIVE) mg/dL Urine Glucose (UA) (Normal) mg/dL Urine Ketones (NEGATIVE) mg/dL Urine Blood (NEGATIVE) Urine Nitrate (NEGATIVE) Urine Bilirubin (NEGATIVE) Urine Urobilinogen (0.2-1.0) mg/dL Ur Leukocyte Esterase (Negative) Brandon/uL Urine WBC (Auto) (0-5) /hpf Urine RBC (Auto) (0-3) /hpf Urine Bacteria (<OCC) Urine Osmolality (300-1000) mosm/kg Ur Random Creatinine mg/dL Ur Random Sodium mmol/L Stool Occult Blood Negative (NEGATIVE) Complement C3 (88.0-165.0) mg/dL Complement C4 (14.0-44.0) mg/dL 06/09/17 06/09/17 06/09/17 Range/Units 23:02 23:02 23:02 WBC 7.8 (4.8-10.8) K/uL RBC 1.61 L (4.40-5.90) Mil/uL Hgb 5.5 L* (12.0-18.0) g/dL Hct 17.5 L (35.0-51.0) % MCV 108.7 H (80.0-94.0) fL MCH 34.4 H (27.0-31.0) pg MCHC 31.6 L (33.0-37.0) g/dL RDW 18.0 H (11.5-14.5) % Plt Count 101 L (130-400) K/uL MPV 10.4 (7.2-11.7) fL Neut % (Auto) 70.9 (50.0-75.0) % Lymph % (Auto) 22.7 (20.0-40.0) % Edmunds % (Auto) 5.6 (0.0-10.0) % Eos % (Auto) 0.5 (0.0-4.0) % Baso % (Auto) 0.3 (0.0-2.0) % Neut # 5.5 (1.8-7.0) K/uL Lymph # 1.8 (1.0-4.3) K/uL Edmunds # 0.4 (0.0-0.8) K/uL Eos # 0.0 (0.0-0.7) K/uL Baso # 0.0 (0.0-0.2) K/uL Neutrophils % (Manual) (50-75) % Lymphocytes % (Manual) (20-40) % Monocytes % (Manual) (0-10) % Eosinophils % (Manual) (0-4) % Nucleated RBC % (0-0) % Platelet Estimate (NORMAL) Hypochromasia (manual) Poikilocytosis (manual Anisocytosis (manual) Microcytosis (manual) Macrocytosis (manual) Tear Drop Cells Ovalocytes [place] Cells Acanthocytes (Spur) Schistocytes Puncture Site pO2 (30-55) mm/Hg Scar Test VBG pH (7.32-7.43) VBG pCO2 (40-60) mmHg VBG HCO3 mmol/L VBG O2 Sat (Calc) (40-65) % VBG Base Excess (0.0-2.0) mmol/L Sodium 150 H (132-148) mmol/L Potassium 5.0 (3.6-5.2) mmol/L Chloride 116 H (98-107) mmol/L Carbon Dioxide 13 L (22-30) mmol/L Anion Gap 26 H (10-20) BUN 142 H* (9-20) mg/dL Creatinine 10.3 H* (0.8-1.5) MG/DL Est GFR ( Amer) 6 Est GFR (Non-Af Amer) 5 POC Glucose (mg/dL) (65-110) mg/dL Random Glucose 60 L (75-110) mg/dL Calcium 6.7 L (8.6-10.4) mg/dl Phosphorus 8.1 H (2.5-4.5) mg/dL Magnesium (1.6-2.3) mg/dL Iron (49-181) ug/dL TIBC (250-450) ug/dL % Saturation (20-55) Ferritin ng/mL Total Bilirubin 0.8 (0.2-1.3) mg/dL AST 16 L D (17-59) U/L ALT 34 (21-72) U/L Alkaline Phosphatase 76 (38-126) U/L Total Creatine Kinase 50 L (55-170) U/L Troponin I 0.0380 (0.00-0.120) ng/mL Total Protein 6.9 (6.3-8.3) g/dL Albumin 2.7 L (3.5-5.0) g/dL Globulin 4.2 H (2.2-3.9) gm/dL Albumin/Globulin Ratio 0.6 L (1.0-2.1) Prostate Specific Ag (0.00-4.0) ng/mL Urine Color (YELLOW) Urine Clarity (Clear) Urine pH (5.0-8.0) Ur Specific [place] (1.003-1.030) Urine Protein (NEGATIVE) mg/dL Urine Glucose (UA) (Normal) mg/dL Urine Ketones (NEGATIVE) mg/dL Urine Blood (NEGATIVE) Urine Nitrate (NEGATIVE) Urine Bilirubin (NEGATIVE) Urine Urobilinogen (0.2-1.0) mg/dL Ur Leukocyte Esterase (Negative) Brandon/uL Urine WBC (Auto) (0-5) /hpf Urine RBC (Auto) (0-3) /hpf Urine Bacteria (<OCC) Urine Osmolality (300-1000) mosm/kg Ur Random Creatinine mg/dL Ur Random Sodium mmol/L Stool Occult Blood (NEGATIVE) Complement C3 71.0 L (88.0-165.0) mg/dL Complement C4 19.7 (14.0-44.0) mg/dL 06/09/17 06/09/17 06/09/17 Range/Units 21:21 20:44 20:44 WBC (4.8-10.8) K/uL RBC (4.40-5.90) Mil/uL Hgb (12.0-18.0) g/dL Hct (35.0-51.0) % MCV (80.0-94.0) fL MCH (27.0-31.0) pg MCHC (33.0-37.0) g/dL RDW (11.5-14.5) % Plt Count (130-400) K/uL MPV (7.2-11.7) fL Neut % (Auto) (50.0-75.0) % Lymph % (Auto) (20.0-40.0) % [place] % (Auto) (0.0-10.0) % Eos % (Auto) (0.0-4.0) % Baso % (Auto) (0.0-2.0) % Neut # (1.8-7.0) K/uL Lymph # (1.0-4.3) K/uL Edmunds # (0.0-0.8) K/uL Eos # (0.0-0.7) K/uL Baso # (0.0-0.2) K/uL Neutrophils % (Manual) (50-75) % Lymphocytes % (Manual) (20-40) % Monocytes % (Manual) (0-10) % Eosinophils % (Manual) (0-4) % Nucleated RBC % (0-0) % Platelet Estimate (NORMAL) Hypochromasia (manual) Poikilocytosis (manual Anisocytosis (manual) Microcytosis (manual) Macrocytosis (manual) Tear Drop Cells Ovalocytes [place] Cells Acanthocytes (Spur) Schistocytes Puncture Site pO2 (30-55) mm/Hg Scar Test VBG pH (7.32-7.43) VBG pCO2 (40-60) mmHg VBG HCO3 mmol/L VBG O2 Sat (Calc) (40-65) % VBG Base Excess (0.0-2.0) mmol/L Sodium (132-148) mmol/L Potassium (3.6-5.2) mmol/L Chloride (98-107) mmol/L Carbon Dioxide (22-30) mmol/L Anion Gap (10-20) BUN (9-20) mg/dL Creatinine (0.8-1.5) MG/DL Est GFR ( Amer) Est GFR (Non-Af Amer) POC Glucose (mg/dL) (65-110) mg/dL Random Glucose (75-110) mg/dL Calcium (8.6-10.4) mg/dl Phosphorus (2.5-4.5) mg/dL Magnesium (1.6-2.3) mg/dL Iron 47 L (49-181) ug/dL TIBC 194 L (250-450) ug/dL % Saturation 24 (20-55) Ferritin 148.0 ng/mL Total Bilirubin (0.2-1.3) mg/dL AST (17-59) U/L ALT (21-72) U/L Alkaline Phosphatase (38-126) U/L Total Creatine Kinase (55-170) U/L Troponin I (0.00-0.120) ng/mL Total Protein (6.3-8.3) g/dL Albumin (3.5-5.0) g/dL Globulin (2.2-3.9) gm/dL Albumin/Globulin Ratio (1.0-2.1) Prostate Specific Ag (0.00-4.0) ng/mL Urine Color Yellow (YELLOW) Urine Clarity Clear (Clear) Urine pH 5.0 (5.0-8.0) Ur Specific [place] 1.011 (1.003-1.030) Urine Protein Negative (NEGATIVE) mg/dL Urine Glucose (UA) Normal (Normal) mg/dL Urine Ketones Negative (NEGATIVE) mg/dL Urine Blood 2+ H (NEGATIVE) Urine Nitrate Negative (NEGATIVE) Urine Bilirubin Negative (NEGATIVE) Urine Urobilinogen Normal (0.2-1.0) mg/dL Ur Leukocyte Esterase 2+ H (Negative) Brandon/uL Urine WBC (Auto) 44 H (0-5) /hpf Urine RBC (Auto) 17 H (0-3) /hpf Urine Bacteria Rare (<OCC) Urine Osmolality (300-1000) mosm/kg Ur Random Creatinine mg/dL Ur Random Sodium mmol/L Stool Occult Blood (NEGATIVE) Complement C3 (88.0-165.0) mg/dL Complement C4 (14.0-44.0) mg/dL Laboratory Results - last 24 hr 06/09/17 06/09/17 06/09/17 20:44 20:44 21:21 WBC RBC Hgb Hct MCV MCH MCHC RDW Plt Count MPV Neut % (Auto) Lymph % (Auto) [place] % (Auto) Eos % (Auto) Baso % (Auto) Neut # Lymph # [place] # Eos # Baso # Neutrophils % (Manual) Lymphocytes % (Manual) Monocytes % (Manual) Eosinophils % (Manual) Nucleated RBC % Platelet Estimate Hypochromasia (manual) Poikilocytosis (manual Anisocytosis (manual) Microcytosis (manual) Macrocytosis (manual) Tear Drop Cells Ovalocytes [place] Cells Acanthocytes (Spur) Schistocytes Puncture Site pO2 Scar Test VBG pH VBG pCO2 VBG HCO3 VBG O2 Sat (Calc) VBG Base Excess Sodium Potassium Chloride Carbon Dioxide Anion Gap BUN Creatinine Est GFR ( Amer) Est GFR (Non-Af Amer) POC Glucose (mg/dL) Random Glucose Calcium Phosphorus Magnesium Iron 47 L TIBC 194 L % Saturation 24 Ferritin 148.0 Total Bilirubin AST ALT Alkaline Phosphatase Total Creatine Kinase Troponin I Total Protein Albumin Globulin Albumin/Globulin Ratio Prostate Specific Ag Urine Color Yellow Urine Clarity Clear Urine pH 5.0 Ur Specific [place] 1.011 Urine Protein Negative Urine Glucose (UA) Normal Urine Ketones Negative Urine Blood 2+ H Urine Nitrate Negative Urine Bilirubin Negative Urine Urobilinogen Normal Ur Leukocyte Esterase 2+ H Urine WBC (Auto) 44 H Urine RBC (Auto) 17 H Urine Bacteria Rare Urine Osmolality Ur Random Creatinine Ur Random Sodium Stool Occult Blood Complement C3 Complement C4 06/09/17 06/09/17 06/09/17 23:02 23:02 23:02 WBC 7.8 RBC 1.61 L Hgb 5.5 L* Hct 17.5 L MCV 108.7 H MCH 34.4 H MCHC 31.6 L RDW 18.0 H Plt Count 101 L MPV 10.4 Neut % (Auto) 70.9 Lymph % (Auto) 22.7 Ed[place]ds % (Auto) 5.6 Eos % (Auto) 0.5 Baso % (Auto) 0.3 Neut # 5.5 Lymph # 1.8 [place]ds # 0.4 Eos # 0.0 Baso # 0.0 Neutrophils % (Manual) Lymphocytes % (Manual) Monocytes % (Manual) Eosinophils % (Manual) Nucleated RBC % Platelet Estimate Hypochromasia (manual) Poikilocytosis (manual Anisocytosis (manual) Microcytosis (manual) Macrocytosis (manual) Tear Drop Cells Ovalocytes [place] Cells Acanthocytes (Spur) Schistocytes Puncture Site pO2 Scar Test VBG pH VBG pCO2 VBG HCO3 VBG O2 Sat (Calc) VBG Base Excess Sodium 150 H Potassium 5.0 Chloride 116 H Carbon Dioxide 13 L Anion Gap 26 H BUN 142 H* Creatinine 10.3 H* Est GFR ( Amer) 6 Est GFR (Non-Af Amer) 5 POC Glucose (mg/dL) Random Glucose 60 L Calcium 6.7 L Phosphorus 8.1 H Magnesium Iron TIBC % Saturation Ferritin Total Bilirubin 0.8 AST 16 L D ALT 34 Alkaline Phosphatase 76 Total Creatine Kinase 50 L Troponin I 0.0380 Total Protein 6.9 Albumin 2.7 L Globulin 4.2 H Albumin/Globulin Ratio 0.6 L Prostate Specific Ag Urine Color Urine Clarity Urine pH Ur Specific [place] Urine Protein Urine Glucose (UA) Urine Ketones Urine Blood Urine Nitrate Urine Bilirubin Urine Urobilinogen Ur Leukocyte Esterase Urine WBC (Auto) Urine RBC (Auto) Urine Bacteria Urine Osmolality Ur Random Creatinine Ur Random Sodium Stool Occult Blood Complement C3 71.0 L Complement C4 19.7 06/10/17 06/10/17 06/10/17 00:33 05:54 06:47 WBC RBC Hgb Hct MCV MCH MCHC RDW Plt Count MPV Neut % (Auto) Lymph % (Auto) [place] % (Auto) Eos % (Auto) Baso % (Auto) Neut # Lymph # [place] # Eos # Baso # Neutrophils % (Manual) Lymphocytes % (Manual) Monocytes % (Manual) Eosinophils % (Manual) Nucleated RBC % Platelet Estimate Hypochromasia (manual) Poikilocytosis (manual Anisocytosis (manual) Microcytosis (manual) Macrocytosis (manual) Tear Drop Cells Ovalocytes Duc Cells Acanthocytes (Spur) Schistocytes Puncture Site Na pO2 27 L Scar Test Na VBG pH 7.26 L VBG pCO2 33 L VBG HCO3 14.6 VBG O2 Sat (Calc) 55.9 VBG Base Excess -11.2 L Sodium Potassium Chloride Carbon Dioxide Anion Gap BUN Creatinine Est GFR ( Amer) Est GFR (Non-Af Amer) POC Glucose (mg/dL) 118 H Random Glucose Calcium Phosphorus Magnesium Iron TIBC % Saturation Ferritin Total Bilirubin AST ALT Alkaline Phosphatase Total Creatine Kinase Troponin I Total Protein Albumin Globulin Albumin/Globulin Ratio Prostate Specific Ag Urine Color Urine Clarity Urine pH Ur Specific [place] Urine Protein Urine Glucose (UA) Urine Ketones Urine Blood Urine Nitrate Urine Bilirubin Urine Urobilinogen Ur Leukocyte Esterase Urine WBC (Auto) Urine RBC (Auto) Urine Bacteria Urine Osmolality Ur Random Creatinine Ur Random Sodium Stool Occult Blood Negative Complement C3 Complement C4 06/10/17 06/10/17 06/10/17 06:48 06:52 08:56 WBC 5.1 RBC 1.97 L Hgb 6.6 L Hct 20.3 L MCV 103.0 H D MCH 33.6 H MCHC 32.6 L RDW 19.1 H Plt Count 90 L MPV 10.6 Neut % (Auto) 80.9 H Lymph % (Auto) 12.7 L [place] % (Auto) 5.4 Eos % (Auto) 0.5 Baso % (Auto) 0.5 Neut # 4.1 Lymph # 0.6 L [place] # 0.3 Eos # 0.0 Baso # 0.0 Neutrophils % (Manual) Lymphocytes % (Manual) Monocytes % (Manual) Eosinophils % (Manual) Nucleated RBC % Platelet Estimate Hypochromasia (manual) Poikilocytosis (manual Anisocytosis (manual) Microcytosis (manual) Macrocytosis (manual) Tear Drop Cells Ovalocytes [place] Cells Acanthocytes (Spur) Schistocytes Puncture Site pO2 Scar Test VBG pH VBG pCO2 VBG HCO3 VBG O2 Sat (Calc) VBG Base Excess Sodium 148 Potassium 4.3 Chloride 117 H Carbon Dioxide 12 L Anion Gap 23 H BUN 141 H* Creatinine 10.1 H* Est GFR ( Amer) 6 Est GFR (Non-Af Amer) 5 POC Glucose (mg/dL) Random Glucose 98 Calcium 6.4 L Phosphorus 8.3 H Magnesium 1.2 L Iron TIBC % Saturation Ferritin Total Bilirubin 0.5 AST 31 ALT 38 Alkaline Phosphatase 66 Total Creatine Kinase Troponin I Total Protein 6.0 L Albumin 2.4 L Globulin 3.6 Albumin/Globulin Ratio 0.7 L Prostate Specific Ag 3.55 Urine Color Urine Clarity Urine pH Ur Specific [place] Urine Protein Urine Glucose (UA) Urine Ketones Urine Blood Urine Nitrate Urine Bilirubin Urine Urobilinogen Ur Leukocyte Esterase Urine WBC (Auto) Urine RBC (Auto) Urine Bacteria Urine Osmolality 359 Ur Random Creatinine 42.8 Ur Random Sodium 95 Stool Occult Blood Complement C3 Complement C4 06/10/17 06/10/17 06/10/17 11:52 12:29 12:29 WBC 4.7 L RBC 2.05 L Hgb 6.6 L Hct 20.1 L MCV 98.1 H D MCH 32.0 H MCHC 32.6 L RDW 21.7 H Plt Count 71 L MPV 10.1 Neut % (Auto) 86.6 H Lymph % (Auto) 8.1 L [place] % (Auto) 4.2 Eos % (Auto) 0.7 Baso % (Auto) 0.4 Neut # 4.1 Lymph # 0.4 L [place] # 0.2 Eos # 0.0 Baso # 0.0 Neutrophils % (Manual) 85 H Lymphocytes % (Manual) 12 L Monocytes % (Manual) 2 Eosinophils % (Manual) 1 Nucleated RBC % 2 H Platelet Estimate Decreased L Hypochromasia (manual) Slight Poikilocytosis (manual Slight Anisocytosis (manual) Moderate Microcytosis (manual) Slight Macrocytosis (manual) Slight Tear Drop Cells Slight Ovalocytes Slight [place] Cells Slight Acanthocytes (Spur) Slight Schistocytes Slight Puncture Site pO2 Scar Test VBG pH VBG pCO2 VBG HCO3 VBG O2 Sat (Calc) VBG Base Excess Sodium 143 Potassium 3.5 L Chloride 117 H Carbon Dioxide 12 L Anion Gap 18 BUN 116 H* Creatinine 8.2 H* Est GFR ( Amer) 8 Est GFR (Non-Af Amer) 6 POC Glucose (mg/dL) 101 Random Glucose 85 Calcium 5.3 L* Phosphorus Magnesium Iron TIBC % Saturation Ferritin Total Bilirubin 0.7 AST 20 ALT 37 Alkaline Phosphatase 51 Total Creatine Kinase Troponin I Total Protein 5.1 L Albumin 1.8 L D Globulin 3.3 Albumin/Globulin Ratio 0.6 L Prostate Specific Ag Urine Color Urine Clarity Urine pH Ur Specific [place] Urine Protein Urine Glucose (UA) Urine Ketones Urine Blood Urine Nitrate Urine Bilirubin Urine Urobilinogen Ur Leukocyte Esterase Urine WBC (Auto) Urine RBC (Auto) Urine Bacteria Urine Osmolality Ur Random Creatinine Ur Random Sodium Stool Occult Blood Complement C3 Complement C4 Fingerstick Blood Sugar Results: 118 Assessment/Plan (1) ARF (acute renal failure) Current Visit: Yes Status: Acute Comment: Most likely postobstructive Continue IV fluids and monitor BUN and creatinine Hemodialysis if necessary Transfuse packed RBCs and anemia workup IV albumin and improve nutritional status (2) Hyperkalemia Current Visit: Yes Status: Acute (3) Metabolic acidosis Current Visit: Yes Status: Acute (4) Symptomatic anemia Current Visit: Yes Status: Acute
[2017-06-10] MEDS ORDERED: Sodium Chloride 0.9% 1,000 ML IV ONE (15:21)
[2017-06-10] MEDS ORDERED: EPOETIN ALFA 10,000 UNIT/ML ML SC ONE ×2 (15:27→17:15)
--- NOTE | 2017-06-10 15:27 | CP.PCM.PN ---
Subjective - Date & Time of Evaluation Date of Evaluation: 06/10/17 Time of Evaluation: 15:26 - Subjective Subjective: POST TRANSFUSION HG 6.6 CR. DOWN TO 8.6 SPENCER HYDRONEPHROSIS 5 CM VASCULAR BLADDER MASS EVAL Objective - Vital Signs/Intake and Output Vital Signs (last 24 hours): Temp Pulse Resp BP Pulse Ox 97.5 F L 70 14 93/51 L 98 06/10/17 12:00 06/10/17 14:00 06/10/17 14:00 06/10/17 14:00 06/10/17 14:00 Intake and Output: 06/10/17 06/10/17 11:59 23:59 Intake Total 2885 375 Output Total 1270 300 Balance 1615 75 - Medications Medications: Current Medications Famotidine (Pepcid) 20 mg IVP DAILY [facility] Last Admin: 06/10/17 11:06 Dose: 20 mg Sodium Chloride (Sodium Chloride 0.45%) 1,000 mls @ 125 mls/hr IV .BY DURATION [facility] Last Admin: 06/10/17 11:02 Dose: 125 mls/hr Dextrose (Dextrose 5% In Water 1000 Ml) 1,000 mls @ 125 mls/hr IV .BY DURATION [facility] Sodium Chloride (Sodium Chloride 0.9%) 1,000 mls @ 1,000 mls/hr IV .Q1H ONE Stop: 06/10/17 16:20 Sodium Chloride (Sodium Chloride 0.45%) 1,000 mls @ 125 mls/hr IV .Q8H [facility] Sodium Bicarbonate (Sodium Bicarbonate Tab) 650 mg PO Q6 [facility] - Labs Labs: 06/10/17 12:29 06/10/17 12:29 PT 13.0 SECONDS (9.7-12.2) H 06/09/17 17:28 INR 1.2 06/09/17 17:28 APTT 33 SECONDS (21-34) 06/09/17 17:28
[2017-06-10] MEDS ORDERED: Calcium Gluconate 4.65 mEq/10 ml Inj IVP SCH (15:30)
[2017-06-10] MEDS ORDERED: Magnesium Sulfate 1 gm in D5W 1 GM/100 ML BAG IVPB STA (15:31)
--- NOTE | 2017-06-10 15:31 | CP.PCM.PN ---
Subjective - Date & Time of Evaluation Date of Evaluation: 06/10/17 Time of Evaluation: 15:30 - Subjective Subjective: pt is seen and examined follow up consult is dictated #[id number] Objective - Vital Signs/Intake and Output Vital Signs (last 24 hours): Temp Pulse Resp BP Pulse Ox 97.5 F L 70 14 93/51 L 98 06/10/17 12:00 06/10/17 14:00 06/10/17 14:00 06/10/17 14:00 06/10/17 14:00 Intake and Output: 06/10/17 06/10/17 06:59 18:59 Intake Total 770 2490 Output Total 3500 570 Balance -2730 1920 - Medications Medications: Current Medications Calcium Acetate (Phoslo) 667 mg PO TID [facility] Calcium Gluconate (Calcium Gluconate) 4.65 meq IVP Q8 [facility] Stop: 06/11/17 15:30 Famotidine (Pepcid) 20 mg IVP DAILY [facility] Last Admin: 06/10/17 11:06 Dose: 20 mg Sodium Chloride (Sodium Chloride 0.45%) 1,000 mls @ 125 mls/hr IV .BY DURATION [facility] Last Admin: 06/10/17 11:02 Dose: 125 mls/hr Dextrose (Dextrose 5% In Water 1000 Ml) 1,000 mls @ 125 mls/hr IV .BY DURATION [facility] Sodium Chloride (Sodium Chloride 0.9%) 1,000 mls @ 1,000 mls/hr IV .Q1H ONE Stop: 06/10/17 16:20 Sodium Chloride (Sodium Chloride 0.45%) 1,000 mls @ 125 mls/hr IV .Q8H [facility] Sodium Bicarbonate (Sodium Bicarbonate Tab) 650 mg PO Q6 [facility] Vitamin B Complex/Vit C/Folic Acid (Nephro-Aleksandra) 1 tab PO 0800 [facility] - Labs Labs: 06/10/17 12:29 06/10/17 12:29 PT 13.0 SECONDS (9.7-12.2) H 06/09/17 17:28 INR 1.2 06/09/17 17:28 APTT 33 SECONDS (21-34) 06/09/17 17:28
[2017-06-10] MEDS: Sodium Chloride 0.45% 1,000 ML IV SCH ×2 (16:34→23:30)
--- NOTE | 2017-06-10 23:23 | PN ---
FOLLOWUP RENAL CONSULTATION LOCATION: The patient is located in ICU bed #10. REQUESTED BY: Dr. Akhil Wang. REASON FOR FOLLOWUP: Renal failure, hyperkalemia, metabolic acidosis, anemia and obstructive uropathy. HISTORY OF PRESENT ILLNESS: The patient is a 77-year-old elderly very cachectic male with a past medical history significant for nephrolithiasis who was admitted through the emergency room with a chief complaint of severe generalized weakness, nausea, poor appetite, weight loss, bilateral leg swelling and abdominal distention for a long time. The patient had a Beck catheter placement in the emergency room and drained immediately about 2000 mL of dark colored urine and subsequently the patient had a urine output of about 1 L for another 1 to 2 hours and the patient is on IV hydration. The patient was given a bolus of half normal saline 1 L this morning for hypotension. Afterwards, IV fluid was changed to D5W alternating with half normal saline at 125 mL per hour. The patient is slightly hypotensive, blood pressure systolic around 94. Denies any complaints. The patient is currently hungry and feeling thirsty, not in acute distress. PHYSICAL EXAMINATION GENERAL: The patient is 77-year-old elderly male, very cachectic, thin built, not in distress. VITAL SIGNS: Blood pressure 93/51, pulse 70, respirations 14, saturation 98% and temperature is 97.5. Height is 5 feet and 5 inches and weight is 63 pounds. HEENT: Pupils are normal and reactive to light and accommodation. Conjunctivae pale and sclerae anicteric. Tongue is dry. Trachea is midline. LUNGS: Symmetric on both sides. Bilateral breath sounds present. No crackles. CARDIOVASCULAR: [place] at the fifth intercostal space, midclavicular line. S1 and S2 audible. No murmur or gallop. ABDOMEN: Scaphoid, nontender. No hepatosplenomegaly. Bowel sounds are present. No guarding. No rigidity. No abdominal bruit. CENTRAL NERVOUS SYSTEM: The patient is alert, awake, oriented x3. Nonfocal neuro examination. Cranial nerves II through XII grossly intact. Sensory and motor system is within normal limits. EXTREMITIES: No cyanosis, no clubbing. The patient has 1 to 2+ edema in both lower extremities and he has chronic skin changes in both lower extremities. LABORATORY DATA: His laboratory data include as follows. As of this morning at 6:48 a.m., WBC 5.1, hemoglobin 6.6, hematocrit is 20.3 and platelets are 90. As of 06/10/2017, WBC 4.7, hemoglobin 6.6, hematocrit is 20.1 and platelets 71 and neutrophils 85, lymph is 12, monos 2 eosinophil 4 and nucleated RBC 2. Other laboratory data as of 06/10/2017; sodium 148, potassium 4.3, chloride 117, CO2 of 12, BUN 141, creatinine 10.1 and glucose is 98. Calcium is 6.4, phosphorus 8.3, magnesium 1.2, total bili 0.4, AST 31, ALT 38 and alkaline phosphatase 66. Total protein 6.0, albumin 2.4, globulin is 3.6 and PSA is 3.55. Repeat labs at 12:29 p.m.; sodium 143, potassium is 3.5, chloride 117, CO2 of 12, BUN is 116, creatinine 8.2, glucose is 85, calcium is 5.3, total bili 0.7, AST 20, ALT 37, alkaline phosphatase 51, total protein 5.1 and albumin is 1.8 and his corrected calcium is about 6.9 and globulin is 3.3. Hepatitis B surface antigen is pending, and other immunology, C3 is 71 and C4 is 19.7. Stool for occult blood is negative and urine osmolality is 359 and urine sodium is 95 and urine creatinine is 42.8. ASSESSMENT: In summary, the patient is a 77-year-old elderly, very cachectic, thin built male with a history of nephrolithiasis more than 30 years ago admitted with poor appetite, weight loss of about 50 to 60 pounds, abdominal distention, bilateral leg swelling, severe, severe weakness and found to have low H and H and platelets and low bicarb and increased BUN and creatinine, status post insertion of the Beck catheter for bladder outlet obstruction. His intake since admission to the ICU to this morning is 770 and output is 3050, negative 2230, and since morning, intake is 2490 and output is 517. 1. Renal failure, acute on chronic kidney disease secondary to obstructive uropathy and bladder outlet obstruction. 2. Bladder mass, rule out malignancy. 3. Bilateral hydronephrosis secondary to obstructive uropathy. 4. Hyperchloremic metabolic acidosis with high anion gap metabolic acidosis. 5. Hypomagnesemia. 6. Anemia. 7. Thrombocytopenia. PLAN: We will give normal saline 1 L bolus and then we will change IV fluids to half normal saline at 125 mL per hour and also we will give magnesium sulphate 1 g IV piggyback x1 and also IV calcium gluconate 1 amp IV piggyback q. 8 hours x3 doses. We will also add calcium acetate 1 tablet p.o. t.i.d. and also we will start renal diet and also we will add Nephrocaps 1 tablet daily and Epogen 10,000 units x1 dose and calcium acetate 667 mg p.o. t.i.d. Case discussed with ICU attending, Dr. Tom Ordoñez. Thank you for allowing me to participate in your patient's care. We will evaluate on a daily basis for possible need for dialysis and also follow up with urology for possible cystoscopy and possible biopsy of the bladder mass. Repeat BMP q. 8 hours and transfuse as per ICU attending, Dr. Tom Ordoñez. Ruthann Duarte MD
[2017-06-11 02:56] LABS: CALCIUM 6.6 mg/dl (8.6-10.4); POTASSIUM 3.9 mmol/L (3.6-5.2)
[2017-06-11 06:20] LABS: BASO % 0.5 % (0.0-2.0); EOS % 0.5 % (0.0-4.0); HEMATOCRIT 33.9 % (35.0-51.0); LYMPH # 0.7 K/uL (1.0-4.3); MEAN CELL VOLUME 96.2 fL (80.0-94.0); MEAN CORPUSCULAR HEMOGLOBIN 31.4 pg (27.0-31.0); MEAN CORPUSCULAR HGB CONC 32.7 g/dL (33.0-37.0); MEAN PLATELET VOLUME 10.7 fL (7.2-11.7); MONO # 0.3 K/uL (0.0-0.8); MONO % 4.4 % (0.0-10.0); NRBC % 0.1 % (0.0-2.0); RED CELL DISTRIBUTION WIDTH 20.4 % (11.5-14.5); WHITE BLOOD COUNT 7.1 K/uL (4.8-10.8)
[2017-06-11] MEDS: Sodium Chloride 0.45% 1,000 ML IV SCH ×2 (06:30→13:10)
[2017-06-11 06:36] LABS: ALB/GLOB RATIO 0.6 (1.0-2.1); BILIRUBIN,TOTAL 1.1 mg/dL (0.2-1.3); CALCIUM 6.3 mg/dl (8.6-10.4); MAGNESIUM 1.7 mg/dL (1.6-2.3); PHOSPHOROUS 7.2 mg/dL (2.5-4.5); TOTAL PROTEIN 5.5 g/dL (6.3-8.3)
[2017-06-11] MEDS: Multivitamin Vitamin B Complex (Nephro-Vite) Tab PO SCH (09:38)
[2017-06-11 12:02] LABS: BASO % 0.2 % (0.0-2.0); EOS % 0.3 % (0.0-4.0); HEMATOCRIT 36.7 % (35.0-51.0); LYMPH # 0.7 K/uL (1.0-4.3); LYMPH % 9.9 % (20.0-40.0); MEAN CELL VOLUME 94.7 fL (80.0-94.0); MEAN CORPUSCULAR HGB CONC 32.7 g/dL (33.0-37.0); MEAN PLATELET VOLUME 10.3 fL (7.2-11.7); MONO # 0.3 K/uL (0.0-0.8); MONO % 4.8 % (0.0-10.0); NRBC % 0.1 % (0.0-2.0); PLATELET COUNT 88 K/uL (130-400); RED CELL DISTRIBUTION WIDTH 20.5 % (11.5-14.5); WHITE BLOOD COUNT 6.9 K/uL (4.8-10.8)
[2017-06-11 12:14] LABS: ALB/GLOB RATIO 0.5 (1.0-2.1); TOTAL PROTEIN 6.1 g/dL (6.3-8.3)
[2017-06-11 12:15] LABS: CALCIUM 6.7 mg/dl (8.6-10.4); MAGNESIUM 1.5 mg/dL (1.6-2.3); PHOSPHOROUS 7.1 mg/dL (2.5-4.5)
[2017-06-11 12:25] LABS: NEUTROPHIL 92 % (50-75); TOTAL CELLS COUNTED 100
--- NOTE | 2017-06-11 13:56 | CP.PCM.PN ---
Subjective - Date & Time of Evaluation Date of Evaluation: 06/11/17 Time of Evaluation: 13:54 - Subjective Subjective: CHIEF COMPLAINTS TODAY : FEELS BETTER ROS. HEENT : N. Resp : No cough, wheezing ,pleuritic CP ,or hemoptysis Cardio : No anginal CP, PND, orthopnea, palpitation GI : No abd.pain, n/v ,diarrhea or GI bleeding . [place] LAYER : No headache, vertigo, focal deficit. Musculoskel : No joint swelling , Derm : No rash Psych : Normal affect. Ext : POS swelling ,calf pain PE. Pt. is alert awake in no distress. V.S As noted in the chart Head ,ear nose,throat and eyes : Normal. Neck : Supple with normal carotids. Lungs: Clear air entry. Heart : S1 & S2 normal with S4. No murmur. Abd : Soft non tender with normal bowel sounds. Neuro : Moves all ext. with no localized deficit. Ext : edema with intact pulses.Non tender calves Derm : No rashes or decubitus ulcer. LABS/RADIOLOGY: H/H 11.6, CR 8.6 ASSESSMENT/PLAN : EVAL REFUSING DIALYSIS Objective - Vital Signs/Intake and Output Vital Signs (last 24 hours): Temp Pulse Resp BP Pulse Ox 97.5 F L 74 14 101/59 L 98 06/11/17 12:00 06/11/17 12:00 06/11/17 12:00 06/11/17 12:00 06/11/17 12:00 Intake and Output: 06/11/17 06/11/17 11:59 23:59 Intake Total 1655 125 Output Total 915 100 Balance 740 25 - Medications Medications: Current Medications Calcium Acetate (Phoslo) 667 mg PO TID [facility] Last Admin: 06/10/17 17:32 Dose: 667 mg Famotidine (Pepcid) 20 mg IVP DAILY [facility] Last Admin: 06/11/17 09:39 Dose: 20 mg Sodium Chloride (Sodium Chloride 0.45%) 1,000 mls @ 125 mls/hr IV .Q8H [facility] Last Admin: 06/11/17 06:30 Dose: 125 mls/hr Calcium Gluconate 4.65 meq/ (Sodium Chloride) 110 mls @ 110 mls/hr IV Q8 [facility] Stop: 06/11/17 16:01 Last Admin: 06/11/17 06:25 Dose: 110 mls/hr Sodium Bicarbonate (Sodium Bicarbonate Tab) 650 mg PO Q6 [facility] Last Admin: 06/11/17 06:25 Dose: 650 mg Vitamin B Complex/Vit C/Folic Acid (Nephro-Aleksandra) 1 tab PO 0800 [facility] Last Admin: 06/11/17 09:38 Dose: 1 tab - Labs Labs: 06/11/17 11:56 06/11/17 11:56 PT 13.0 SECONDS (9.7-12.2) H 06/09/17 17:28 INR 1.2 06/09/17 17:28 APTT 33 SECONDS (21-34) 06/09/17 17:28
--- NOTE | 2017-06-11 13:57 | RAD ---
HISTORY: r/o obstruction COMPARISON: No prior. FINDINGS: BOWEL: Normal bowel gas pattern. No evidence of bowel obstruction. No significant retained feces. No intra-abdominal mass. There is a rounded high attenuation object with central lucency approximately 1.3 cm to the left of the L3 vertebral body, of uncertain significance. This may be extrinsic to the patient. BONES: Normal. OTHER FINDINGS: None. IMPRESSION: Normal abdominal bowel gas pattern. Rounded 13 mm object with central lucency to the left of the L3 vertebra, uncertain significance.
--- NOTE | 2017-06-11 15:27 | CT ---
CT abdomen and pelvis without IV contrast Indication: Rule out bladder mass Technique: Contiguous axial images of the abdomen and pelvis. No oral or IV contrast given. Coronal and Sagittal reformats generated and reviewed. This CT exam was performed using 1 or more of the following dose reduction techniques: Automated exposure control, adjustment of the MAA and/or kV according to patient size, and/or use of iterative reconstruction technique. Radiation dose: Total exam DLP = 335.97 MGy-cm. Comparison: Renal/urinary bladder ultrasound performed 06/09/17 Findings: Examination markedly limited due to lack of oral and IV contrast as well emaciated state. Moderate to large bilateral pleural effusions and associated consolidations. No visible pneumothorax. Partially imaged cardiomegaly. Nodular hepatic contour. Low-density lesions throughout the liver, too small to characterize. 9 x 14 mm low-density lesion in the lateral hepatic dome (series 3, image 36), appear cystic. The gallbladder appears distended. Moderate to severe hydronephrosis and proximal hydroureter. No obstructing calculi identified. The adrenal glands are not well visualized. The spleen appears diminutive, otherwise unremarkable. 8 mm probable splenule. Pancreas appears unremarkable. The stomach is nondistended. Lack of oral contrast limits evaluation for bowel pathology. The bowel loops appear within normal limits of caliber without evidence of intestinal obstruction. There is no definite free air. Dense atherosclerotic calcification of the aorta and branches. Thick-walled irregular urinary bladder. Beck catheter. Air within the urinary bladder. 3.8 x 5.3 cm masslike density within the dependent portion of the urinary bladder. Degenerative changes of the spine. Impression: Examination markedly limited due to lack of oral and IV contrast as well emaciated state. Moderate to large bilateral pleural effusions and associated consolidations. Nodular hepatic contour. Low-density lesions throughout the liver, too small to characterize. 9 x 14 mm low-density lesion in the lateral hepatic dome, appear cystic. Distended gallbladder. Moderate to severe hydronephrosis and proximal hydroureter. No obstructing calculi identified. Thick-walled irregular urinary bladder. Beck catheter. Air within the urinary bladder. 3.8 x 5.3 cm masslike density within the dependent portion of the urinary bladder.
[2017-06-11 15:49] LABS: TOTAL PROTEIN, SERUM 5.2 g/dL (6.1-8.1)
[2017-06-11] MEDS ORDERED: Sodium Chloride 0.9% 1,000 ML IV SCH (18:45)
--- NOTE | 2017-06-11 18:46 | CP.PCM.PN ---
Subjective - Date & Time of Evaluation Date of Evaluation: 06/11/17 Time of Evaluation: 18:44 - Subjective Subjective: pt is seen and examined, follow up consult is dictated #[id number] pt wants to wait for initiation of hd check hept.c viral rna by pcr, check cryglobulin level Objective - Vital Signs/Intake and Output Vital Signs (last 24 hours): Temp Pulse Resp BP Pulse Ox 97.3 F L 87 15 117/69 98 06/11/17 16:00 06/11/17 18:01 06/11/17 18:01 06/11/17 18:01 06/11/17 14:00 Intake and Output: 06/11/17 06/11/17 06:59 18:59 Intake Total 1885 1720 Output Total 900 1205 Balance 985 515 - Medications Medications: Current Medications Calcium Acetate (Phoslo) [address] [facility] Last Admin: 06/11/17 17:40 Dose: 667 mg Famotidine (Pepcid) [address] [facility] Last Admin: 06/11/17 09:39 Dose: 20 mg Sodium Chloride (Sodium Chloride 0.45%) 1,000 mls @ 125 mls/hr IV .Q8H [facility] Last Admin: 06/11/17 13:10 Dose: 125 mls/hr Sodium Bicarbonate (Sodium Bicarbonate Tab) 650 mg PO Q6 [facility] Last Admin: 06/11/17 17:40 Dose: 650 mg Vitamin B Complex/Vit C/Folic Acid (Nephro-Aleksandra) [address] [facility] Last Admin: 06/11/17 09:38 Dose: 1 tab - Labs Labs: 06/11/17 11:56 06/11/17 11:56 PT 13.0 SECONDS (9.7-12.2) H 06/09/17 17:28 INR 1.2 06/09/17 17:28 APTT 33 SECONDS (21-34) 06/09/17 17:28
[2017-06-11] MEDS: Sodium Bicarbonate 8.4% 150 MEQ in Dextrose 5% In Water 850 ML IV SCH (21:10)
--- NOTE | 2017-06-11 21:43 | CP.CCUPN ---
<Linda Toth JhonnyObi - Last Filed: 06/11/17 21:40> CCU Subjective - Physician Review Subjective (Free Text): Patient was seen and examined at bedside in the morning. Patient was alert, but remains lethargic. Patient reports still feeling weak. He reports having urinary retention. Patient denies having chest pain, shortness of breath, abdominal pain, nausea, vomiting, fevers, and headaches. 06/11/17 21:40 CCU Objective - Vital Signs / Intake & Output Vital Signs (Last 4 hours): Vital Signs Temp Pulse Resp BP Pulse Ox 06/11/17 21:00 83 17 118/68 99 06/11/17 20:00 97.5 F L 82 17 108/64 98 06/11/17 19:00 83 17 116/68 98 06/11/17 18:01 87 15 117/69 06/11/17 18:00 85 16 Intake and Output (Last 8hrs): Intake & Output 06/11/17 06/11/17 06/11/17 06:59 14:59 22:59 Intake Total 1485 1220 550 Output Total 555 665 690 Balance 930 555 -140 Weight 112 lb 6.972 oz Intake: Intake, IV Amount 950 1100 550 Right Forearm 950 1100 550 Oral 60 120 Blood Product 425 Red Blood Cells Cpd As1 325 Lr Unit [id number] Other 50 Red Blood Cells Cpd As1 50 Lr Unit [id number] Output: Urine 555 665 690 Urethral (Beck) 555 665 690 Stool 0 - Physical Exam Head: Positive for: Atraumatic, Normocephalic Pupils: Positive for: PERRL Extroacular Muscles: Positive for: EOMI Conjunctiva: Positive for: Normal. Negative for: Icteric Mouth: Positive for: Dry Nose (Internal): Positive for: Normal Inspection Neck: Positive for: Normal Range of Motion Respiratory/Chest: Positive for: Clear to Auscultation, Decreased Breath Sounds. Negative for: Respiratory Distress, Accessory Muscle Use, Wheezes, Rales, Retracting, Rhonchi Cardiovascular: Positive for: Regular Rate and Rhythm, Normal S1, S2, Peripheal Pulses Present. Negative for: Murmurs, Irregular Rhythm, Tachycardic, Bradycardic Abdomen: Positive for: Normal Bowel Sounds. Negative for: Tenderness, Distention, Rebound, Guarding Upper Extremity: Negative for: Edema, Swelling Lower Extremity: Negative for: Edema, Swelling Neurological: Positive for: GCS=15, CN II-XII Intact, Speech Normal Skin: Positive for: Warm, Normal Color, Other (LE edema and chronic skin changes ) Psychiatric: Positive for: Alert, Oriented x 3, Normal Insight - Medications Active Medications: Active Medications Generic Name Dose Route Start Last Admin Trade Name Freq PRN Reason Stop Dose Admin Calcium Acetate 667 mg 06/10/17 18:00 06/11/17 17:40 Phoslo PO 667 mg TID TANI Administration Famotidine 20 mg 06/10/17 10:00 06/11/17 09:39 Pepcid IVP 20 mg DAILY TANI Administration Sodium Bicarbonate 150 meq/ 1,000 mls @ 50 mls/hr 06/11/17 19:00 06/11/17 21: 10 Dextrose IV 50 mls/hr .Q20H TANI Administration Vitamin B Complex/Vit C/Folic Acid 1 tab 06/11/17 08:00 06/11/17 09:38 Nephro-Aleksandra PO 1 tab 0800 TANI Administration - Patient Studies Lab Studies: Microbiology Studies 06/10/17 00:48 MRSA Culture (Admit) - Final Naris MRSA NOT DETECTED 06/09/17 21:00 Blood Culture - Preliminary Blood-Venous NO GROWTH AFTER 24 HOURS 06/09/17 20:48 Blood Culture - Preliminary Blood-Venous NO GROWTH AFTER 24 HOURS Lab Studies 06/11/17 06/11/17 06/11/17 Range/Units 17:40 12:10 11:56 WBC (4.8-10.8) K/uL RBC (4.40-5.90) Mil/uL Hgb (12.0-18.0) g/dL Hct (35.0-51.0) % MCV (80.0-94.0) fL MCH (27.0-31.0) pg MCHC (33.0-37.0) g/dL RDW (11.5-14.5) % Plt Count (130-400) K/uL MPV (7.2-11.7) fL Neut % (Auto) (50.0-75.0) % Lymph % (Auto) (20.0-40.0) % [place] % (Auto) (0.0-10.0) % Eos % (Auto) (0.0-4.0) % Baso % (Auto) (0.0-2.0) % Neut # (1.8-7.0) K/uL Lymph # (1.0-4.3) K/uL [place] # (0.0-0.8) K/uL Eos # (0.0-0.7) K/uL Baso # (0.0-0.2) K/uL Neutrophils % (Manual) (50-75) % Lymphocytes % (Manual) (20-40) % Monocytes % (Manual) (0-10) % Platelet Estimate (NORMAL) Polychromasia Anisocytosis (manual) Macrocytosis (manual) Tear Drop Cells Ovalocytes Sodium 143 (132-148) mmol/L Potassium 4.0 (3.6-5.2) mmol/L Chloride 113 H (98-107) mmol/L Carbon Dioxide 12 L (22-30) mmol/L Anion Gap 22 H (10-20) BUN 116 H* (9-20) mg/dL Creatinine 8.0 H* (0.8-1.5) MG/DL Est GFR ( Amer) 8 Est GFR (Non-Af Amer) 7 POC Glucose (mg/dL) 103 96 (65-110) mg/dL Random Glucose 91 (75-110) mg/dL Calcium 6.7 L (8.6-10.4) mg/dl Phosphorus 7.1 H (2.5-4.5) mg/dL Magnesium 1.5 L (1.6-2.3) mg/dL Total Bilirubin 1.0 (0.2-1.3) mg/dL AST 13 L (17-59) U/L ALT 28 (21-72) U/L Alkaline Phosphatase 74 (38-126) U/L Total Protein 6.1 L (6.3-8.3) g/dL Total Protein (PEP) (6.1-8.1) g/dL Albumin 2.1 L (3.5-5.0) g/dL Globulin 4.0 H (2.2-3.9) gm/dL Albumin/Globulin Ratio 0.5 L (1.0-2.1) PTH Intact Whole Molec (14-64) pg/mL Urine Collection Time HRS Urine Total Volume mL Creatinine Clearance (107-139) mL/min Ur Protein 24 Hr Calc (42-225) mg/24hr Hep Bs Antigen (NEGATIVE) Hep Bs Antibody (NEGATIVE) Hep B Core IgM Ab (NEGATIVE) Hepatitis C Antibody (NEGATIVE) 06/11/17 06/11/17 06/11/17 Range/Units 11:56 07:48 06:14 WBC 6.9 (4.8-10.8) K/uL RBC 3.88 L (4.40-5.90) Mil/uL Hgb 12.0 (12.0-18.0) g/dL Hct 36.7 (35.0-51.0) % MCV 94.7 H (80.0-94.0) fL MCH 31.0 (27.0-31.0) pg MCHC 32.7 L (33.0-37.0) g/dL RDW 20.5 H (11.5-14.5) % Plt Count 88 L (130-400) K/uL MPV 10.3 (7.2-11.7) fL Neut % (Auto) 84.8 H (50.0-75.0) % Lymph % (Auto) 9.9 L (20.0-40.0) % [place] % (Auto) 4.8 (0.0-10.0) % Eos % (Auto) 0.3 (0.0-4.0) % Baso % (Auto) 0.2 (0.0-2.0) % Neut # 5.8 (1.8-7.0) K/uL Lymph # 0.7 L (1.0-4.3) K/uL [place] # 0.3 (0.0-0.8) K/uL Eos # 0.0 (0.0-0.7) K/uL Baso # 0.0 (0.0-0.2) K/uL Neutrophils % (Manual) 92 H (50-75) % Lymphocytes % (Manual) 6 L (20-40) % Monocytes % (Manual) 2 (0-10) % Platelet Estimate Decreased L (NORMAL) Polychromasia Slight Anisocytosis (manual) Slight Macrocytosis (manual) Slight Tear Drop Cells Slight Ovalocytes Slight Sodium 141 (132-148) mmol/L Potassium 4.0 (3.6-5.2) mmol/L Chloride 114 H (98-107) mmol/L Carbon Dioxide 12 L (22-30) mmol/L Anion Gap 19 (10-20) BUN 122 H* (9-20) mg/dL Creatinine 8.0 H* 8.0 H* (0.8-1.5) MG/DL Est GFR ( Amer) 8 Est GFR (Non-Af Amer) 7 POC Glucose (mg/dL) (65-110) mg/dL Random Glucose 87 (75-110) mg/dL Calcium 6.3 L (8.6-10.4) mg/dl Phosphorus 7.2 H (2.5-4.5) mg/dL Magnesium 1.7 (1.6-2.3) mg/dL Total Bilirubin 1.1 (0.2-1.3) mg/dL AST 16 L (17-59) U/L ALT 25 (21-72) U/L Alkaline Phosphatase 61 (38-126) U/L Total Protein 5.5 L (6.3-8.3) g/dL Total Protein (PEP) (6.1-8.1) g/dL Albumin 2.1 L (3.5-5.0) g/dL Globulin 3.5 (2.2-3.9) gm/dL Albumin/Globulin Ratio 0.6 L (1.0-2.1) PTH Intact Whole Molec (14-64) pg/mL Urine Collection Time 24 HRS Urine Total Volume 2100 mL Creatinine Clearance 5.0 L (107-139) mL/min Ur Protein 24 Hr Calc 2205.0 H (42-225) mg/24hr Hep Bs Antigen (NEGATIVE) Hep Bs Antibody (NEGATIVE) Hep B Core IgM Ab (NEGATIVE) Hepatitis C Antibody (NEGATIVE) 06/11/17 06/11/17 06/11/17 Range/Units 06:14 06:02 02:02 WBC 7.1 D (4.8-10.8) K/uL RBC 3.52 L (4.40-5.90) Mil/uL Hgb 11.1 L D (12.0-18.0) g/dL Hct 33.9 L (35.0-51.0) % MCV 96.2 H (80.0-94.0) fL MCH 31.4 H (27.0-31.0) pg MCHC 32.7 L (33.0-37.0) g/dL RDW 20.4 H (11.5-14.5) % Plt Count 79 L (130-400) K/uL MPV 10.7 (7.2-11.7) fL Neut % (Auto) 84.6 H (50.0-75.0) % Lymph % (Auto) 10.0 L (20.0-40.0) % [place] % (Auto) 4.4 (0.0-10.0) % Eos % (Auto) 0.5 (0.0-4.0) % Baso % (Auto) 0.5 (0.0-2.0) % Neut # 6.0 (1.8-7.0) K/uL Lymph # 0.7 L (1.0-4.3) K/uL [place] # 0.3 (0.0-0.8) K/uL Eos # 0.0 (0.0-0.7) K/uL Baso # 0.0 (0.0-0.2) K/uL Neutrophils % (Manual) (50-75) % Lymphocytes % (Manual) (20-40) % Monocytes % (Manual) (0-10) % Platelet Estimate (NORMAL) Polychromasia Anisocytosis (manual) Macrocytosis (manual) Tear Drop Cells Ovalocytes Sodium 143 (132-148) mmol/L Potassium 3.9 (3.6-5.2) mmol/L Chloride 115 H (98-107) mmol/L Carbon Dioxide 10 L* (22-30) mmol/L Anion Gap 21 H (10-20) BUN 122 H* (9-20) mg/dL Creatinine 8.2 H* (0.8-1.5) MG/DL Est GFR ( Amer) 8 Est GFR (Non-Af Amer) 6 POC Glucose (mg/dL) 92 (65-110) mg/dL Random Glucose 97 (75-110) mg/dL Calcium 6.6 L (8.6-10.4) mg/dl Phosphorus (2.5-4.5) mg/dL Magnesium (1.6-2.3) mg/dL Total Bilirubin (0.2-1.3) mg/dL AST (17-59) U/L ALT (21-72) U/L Alkaline Phosphatase (38-126) U/L Total Protein (6.3-8.3) g/dL Total Protein (PEP) (6.1-8.1) g/dL Albumin (3.5-5.0) g/dL Globulin (2.2-3.9) gm/dL Albumin/Globulin Ratio (1.0-2.1) PTH Intact Whole Molec (14-64) pg/mL Urine Collection Time HRS Urine Total Volume mL Creatinine Clearance (107-139) mL/min Ur Protein 24 Hr Calc (42-225) mg/24hr Hep Bs Antigen (NEGATIVE) Hep Bs Antibody (NEGATIVE) Hep B Core IgM Ab (NEGATIVE) Hepatitis C Antibody (NEGATIVE) 06/10/17 06/09/17 06/09/17 Range/Units 23:41 23:02 23:02 WBC (4.8-10.8) K/uL RBC (4.40-5.90) Mil/uL Hgb (12.0-18.0) g/dL Hct (35.0-51.0) % MCV (80.0-94.0) fL MCH (27.0-31.0) pg MCHC (33.0-37.0) g/dL RDW (11.5-14.5) % Plt Count (130-400) K/uL MPV (7.2-11.7) fL Neut % (Auto) (50.0-75.0) % Lymph % (Auto) (20.0-40.0) % [place] % (Auto) (0.0-10.0) % Eos % (Auto) (0.0-4.0) % Baso % (Auto) (0.0-2.0) % Neut # (1.8-7.0) K/uL Lymph # (1.0-4.3) K/uL [place] # (0.0-0.8) K/uL Eos # (0.0-0.7) K/uL Baso # (0.0-0.2) K/uL Neutrophils % (Manual) (50-75) % Lymphocytes % (Manual) (20-40) % Monocytes % (Manual) (0-10) % Platelet Estimate (NORMAL) Polychromasia Anisocytosis (manual) Macrocytosis (manual) Tear Drop Cells Ovalocytes Sodium (132-148) mmol/L Potassium (3.6-5.2) mmol/L Chloride (98-107) mmol/L Carbon Dioxide (22-30) mmol/L Anion Gap (10-20) BUN (9-20) mg/dL Creatinine (0.8-1.5) MG/DL Est GFR ( Amer) Est GFR (Non-Af Amer) POC Glucose (mg/dL) 115 H (65-110) mg/dL Random Glucose (75-110) mg/dL Calcium (8.6-10.4) mg/dl Phosphorus (2.5-4.5) mg/dL Magnesium (1.6-2.3) mg/dL Total Bilirubin (0.2-1.3) mg/dL AST (17-59) U/L ALT (21-72) U/L Alkaline Phosphatase (38-126) U/L Total Protein (6.3-8.3) g/dL Total Protein (PEP) (6.1-8.1) g/dL Albumin (3.5-5.0) g/dL Globulin (2.2-3.9) gm/dL Albumin/Globulin Ratio (1.0-2.1) PTH Intact Whole Molec (14-64) pg/mL Urine Collection Time HRS Urine Total Volume mL Creatinine Clearance (107-139) mL/min Ur Protein 24 Hr Calc (42-225) mg/24hr Hep Bs Antigen (NEGATIVE) Hep Bs Antibody Negative (NEGATIVE) Hep B Core IgM Ab Negative (NEGATIVE) Hepatitis C Antibody Reactive H (NEGATIVE) 06/09/17 06/09/17 06/09/17 Range/Units 23:02 23:02 20:44 WBC (4.8-10.8) K/uL RBC (4.40-5.90) Mil/uL Hgb (12.0-18.0) g/dL Hct (35.0-51.0) % MCV (80.0-94.0) fL MCH (27.0-31.0) pg MCHC (33.0-37.0) g/dL RDW (11.5-14.5) % Plt Count (130-400) K/uL MPV (7.2-11.7) fL Neut % (Auto) (50.0-75.0) % Lymph % (Auto) (20.0-40.0) % [place] % (Auto) (0.0-10.0) % Eos % (Auto) (0.0-4.0) % Baso % (Auto) (0.0-2.0) % Neut # (1.8-7.0) K/uL Lymph # (1.0-4.3) K/uL [place] # (0.0-0.8) K/uL Eos # (0.0-0.7) K/uL Baso # (0.0-0.2) K/uL Neutrophils % (Manual) (50-75) % Lymphocytes % (Manual) (20-40) % Monocytes % (Manual) (0-10) % Platelet Estimate (NORMAL) Polychromasia Anisocytosis (manual) Macrocytosis (manual) Tear Drop Cells Ovalocytes Sodium (132-148) mmol/L Potassium (3.6-5.2) mmol/L Chloride (98-107) mmol/L Carbon Dioxide (22-30) mmol/L Anion Gap (10-20) BUN (9-20) mg/dL Creatinine (0.8-1.5) MG/DL Est GFR ( Amer) Est GFR (Non-Af Amer) POC Glucose (mg/dL) (65-110) mg/dL Random Glucose (75-110) mg/dL Calcium (8.6-10.4) mg/dl Phosphorus (2.5-4.5) mg/dL Magnesium (1.6-2.3) mg/dL Total Bilirubin (0.2-1.3) mg/dL AST (17-59) U/L ALT (21-72) U/L Alkaline Phosphatase (38-126) U/L Total Protein (6.3-8.3) g/dL Total Protein (PEP) 5.2 L (6.1-8.1) g/dL Albumin (3.5-5.0) g/dL Globulin (2.2-3.9) gm/dL Albumin/Globulin Ratio (1.0-2.1) PTH Intact Whole Molec 187 H (14-64) pg/mL Urine Collection Time HRS Urine Total Volume mL Creatinine Clearance (107-139) mL/min Ur Protein 24 Hr Calc (42-225) mg/24hr Hep Bs Antigen Negative (NEGATIVE) Hep Bs Antibody (NEGATIVE) Hep B Core IgM Ab (NEGATIVE) Hepatitis C Antibody (NEGATIVE) Laboratory Results - last 24 hr 06/09/17 06/09/17 06/09/17 20:44 23:02 23:02 WBC RBC Hgb Hct MCV MCH MCHC RDW Plt Count MPV Neut % (Auto) Lymph % (Auto) [place] % (Auto) Eos % (Auto) Baso % (Auto) Neut # Lymph # [place] # Eos # Baso # Neutrophils % (Manual) Lymphocytes % (Manual) Monocytes % (Manual) Platelet Estimate Polychromasia Anisocytosis (manual) Macrocytosis (manual) Tear Drop Cells Ovalocytes Sodium Potassium Chloride Carbon Dioxide Anion Gap BUN Creatinine Est GFR ( Amer) Est GFR (Non-Af Amer) POC Glucose (mg/dL) Random Glucose Calcium Phosphorus Magnesium Total Bilirubin AST ALT Alkaline Phosphatase Total Protein Total Protein (PEP) 5.2 L Albumin Globulin Albumin/Globulin Ratio PTH Intact Whole Molec 187 H Urine Collection Time Urine Total Volume Creatinine Clearance Ur Protein 24 Hr Calc Hep Bs Antigen Negative Hep Bs Antibody Hep B Core IgM Ab Hepatitis C Antibody 06/09/17 06/09/17 06/10/17 23:02 23:02 23:41 WBC RBC Hgb Hct MCV MCH MCHC RDW Plt Count MPV Neut % (Auto) Lymph % (Auto) [place] % (Auto) Eos % (Auto) Baso % (Auto) Neut # Lymph # [place] # Eos # Baso # Neutrophils % (Manual) Lymphocytes % (Manual) Monocytes % (Manual) Platelet Estimate Polychromasia Anisocytosis (manual) Macrocytosis (manual) Tear Drop Cells Ovalocytes Sodium Potassium Chloride Carbon Dioxide Anion Gap BUN Creatinine Est GFR ( Amer) Est GFR (Non-Af Amer) POC Glucose (mg/dL) 115 H Random Glucose Calcium Phosphorus Magnesium Total Bilirubin AST ALT Alkaline Phosphatase Total Protein Total Protein (PEP) Albumin Globulin Albumin/Globulin Ratio PTH Intact Whole Molec Urine Collection Time Urine Total Volume Creatinine Clearance Ur Protein 24 Hr Calc Hep Bs Antigen Hep Bs Antibody Negative Hep B Core IgM Ab Negative Hepatitis C Antibody Reactive H 06/11/17 06/11/17 06/11/17 02:02 06:02 06:14 WBC 7.1 D RBC 3.52 L Hgb 11.1 L D Hct 33.9 L MCV 96.2 H MCH 31.4 H MCHC 32.7 L RDW 20.4 H Plt Count 79 L MPV 10.7 Neut % (Auto) 84.6 H Lymph % (Auto) 10.0 L [place] % (Auto) 4.4 Eos % (Auto) 0.5 Baso % (Auto) 0.5 Neut # 6.0 Lymph # 0.7 L [place] # 0.3 Eos # 0.0 Baso # 0.0 Neutrophils % (Manual) Lymphocytes % (Manual) Monocytes % (Manual) Platelet Estimate Polychromasia Anisocytosis (manual) Macrocytosis (manual) Tear Drop Cells Ovalocytes Sodium 143 Potassium 3.9 Chloride 115 H Carbon Dioxide 10 L* Anion Gap 21 H BUN 122 H* Creatinine 8.2 H* Est GFR ( Amer) 8 Est GFR (Non-Af Amer) 6 POC Glucose (mg/dL) 92 Random Glucose 97 Calcium 6.6 L Phosphorus Magnesium Total Bilirubin AST ALT Alkaline Phosphatase Total Protein Total Protein (PEP) Albumin Globulin Albumin/Globulin Ratio PTH Intact Whole Molec Urine Collection Time Urine Total Volume Creatinine Clearance Ur Protein 24 Hr Calc Hep Bs Antigen Hep Bs Antibody Hep B Core IgM Ab Hepatitis C Antibody 06/11/17 06/11/17 06/11/17 06:14 07:48 11:56 WBC 6.9 RBC 3.88 L Hgb 12.0 Hct 36.7 MCV 94.7 H MCH 31.0 MCHC 32.7 L RDW 20.5 H Plt Count 88 L MPV 10.3 Neut % (Auto) 84.8 H Lymph % (Auto) 9.9 L [place] % (Auto) 4.8 Eos % (Auto) 0.3 Baso % (Auto) 0.2 Neut # 5.8 Lymph # 0.7 L [place] # 0.3 Eos # 0.0 Baso # 0.0 Neutrophils % (Manual) 92 H Lymphocytes % (Manual) 6 L Monocytes % (Manual) 2 Platelet Estimate Decreased L Polychromasia Slight Anisocytosis (manual) Slight Macrocytosis (manual) Slight Tear Drop Cells Slight Ovalocytes Slight Sodium 141 Potassium 4.0 Chloride 114 H Carbon Dioxide 12 L Anion Gap 19 BUN 122 H* Creatinine 8.0 H* 8.0 H* Est GFR ( Amer) 8 Est GFR (Non-Af Amer) 7 POC Glucose (mg/dL) Random Glucose 87 Calcium 6.3 L Phosphorus 7.2 H Magnesium 1.7 Total Bilirubin 1.1 AST 16 L ALT 25 Alkaline Phosphatase 61 Total Protein 5.5 L Total Protein (PEP) Albumin 2.1 L Globulin 3.5 Albumin/Globulin Ratio 0.6 L PTH Intact Whole Molec Urine Collection Time 24 Urine Total Volume 2100 Creatinine Clearance 5.0 L Ur Protein 24 Hr Calc 2205.0 H Hep Bs Antigen Hep Bs Antibody Hep B Core IgM Ab Hepatitis C Antibody 06/11/17 06/11/17 06/11/17 11:56 12:10 17:40 WBC RBC Hgb Hct MCV MCH MCHC RDW Plt Count MPV Neut % (Auto) Lymph % (Auto) [place] % (Auto) Eos % (Auto) Baso % (Auto) Neut # Lymph # [place] # Eos # Baso # Neutrophils % (Manual) Lymphocytes % (Manual) Monocytes % (Manual) Platelet Estimate Polychromasia Anisocytosis (manual) Macrocytosis (manual) Tear Drop Cells Ovalocytes Sodium 143 Potassium 4.0 Chloride 113 H Carbon Dioxide 12 L Anion Gap 22 H BUN 116 H* Creatinine 8.0 H* Est GFR ( Amer) 8 Est GFR (Non-Af Amer) 7 POC Glucose (mg/dL) 96 103 Random Glucose 91 Calcium 6.7 L Phosphorus 7.1 H Magnesium 1.5 L Total Bilirubin 1.0 AST 13 L ALT 28 Alkaline Phosphatase 74 Total Protein 6.1 L Total Protein (PEP) Albumin 2.1 L Globulin 4.0 H Albumin/Globulin Ratio 0.5 L PTH Intact Whole Molec Urine Collection Time Urine Total Volume Creatinine Clearance Ur Protein 24 Hr Calc Hep Bs Antigen Hep Bs Antibody Hep B Core IgM Ab Hepatitis C Antibody Fingerstick Blood Sugar Results: 103 Review of Systems - Constitutional Constitutional: Weakness. absent: Fever - EENT Ears: absent: Dizziness - Cardiovascular Cardiovascular: Pedal Edema. absent: Chest Pain, Dyspnea - Respiratory Respiratory: absent: Cough, Dyspnea - Gastrointestinal Gastrointestinal: absent: Abdominal Pain, Constipation, Diarrhea, Nausea, Vomiting - Genitourinary Genitourinary: Other (retention) - Integumentary Integumentary: Swelling (LE) - Neurological Neurological: absent: Dizziness, Headaches Critical Care Progress Note - Nutrition Nutrition: Nutrition Category Date Time Status Renal Diet [DIET] Diets 06/10/17 Dinner Active Assessment/Plan - Assessment and Plan (Free Text) Assessment: Neuro: alert, oriented x3 Pulm: no acute issues CV: - LE edema - Duplex scan LE: f/u Endo: no acute issues - ISS GI/: Bladder mass, urinary retention - Bladder US: b/l hydronephrosis, bladder mass (5.2cm) - Urology consulted- Dr. Darby, help appreciated - Beck catheter - Stool occult: negative - PSA: 3.55 - Abd CT: mod-large pleural effusions and consolidations; nodular hepatic contour; low-density lesions throughout liver; cystic appearing liver lesion; distended gallbladder; mod-severe hydronephrosis and proximal hydroureter; thick -walled irregular urinary blader; 3.8x5.3cm mass-like density within depending portion of urinary bladder - Hepatitis panel: f/u Heme: Anemia, thrombocytopenia - At admission, Hgb 5.8 - Transfused 2 units, Hgb increased to 6.6 Renal: Renal failure - Nephrology consulted- Dr. Duarte, help appreciated - Renal failure, likely ESRD - Hyperkalemia: improved, 4.0 - Hyperphosphatemia: Continue Phoslo - Severe metabolic acidosis - Continue Sodium Bicarb IV - Continue NS @125ml/hr - Possibly required dialysis ID: no acute issues Prophylaxis: - DVT: SCDs, C/I to anticoagulation (anemia) - GI: Pepcid daily <Evan Devi - Last Filed: 06/14/17 16:23> CCU Objective - Vital Signs / Intake & Output Vital Signs (Last 4 hours): Vital Signs Pulse Resp BP Pulse Ox 06/14/17 15:00 89 19 95/54 L 99 06/14/17 14:00 102 H 17 113/70 100 06/14/17 13:00 95 H 21 107/64 100 Intake and Output (Last 8hrs): Intake & Output 06/14/17 06/14/17 06/14/17 06:59 14:59 22:59 Intake Total 400 600 0 Output Total 710 756 150 Balance -310 -156 -150 Intake: Intake, IV Amount 400 200 Left Forearm 400 200 Oral 400 0 Output: Urine 710 756 150 Urethral (Beck) 710 756 150 Other: # Bowel Movements 1 0 - Medications Active Medications: Active Medications Generic Name Dose Route Start Last Admin Trade Name Freq PRN Reason Stop Dose Admin Calcitriol 0.25 mcg 06/14/17 10:00 06/14/17 09:07 Rocaltrol PO 0.25 mcg DAILY TANI Administration Calcium Acetate 667 mg 06/10/17 18:00 06/14/17 13:22 Phoslo PO 667 mg TID TANI Administration Famotidine 20 mg 06/15/17 10:00 Pepcid PO DAILY TANI Vitamin B Complex/Vit C/Folic Acid 1 tab 06/11/17 08:00 06/14/17 08:18 Nephro-Aleksandra PO 1 tab 0800 TANI Administration - Patient Studies Lab Studies: Microbiology Studies 06/09/17 21:00 Blood Culture - Preliminary Blood-Venous NO GROWTH AFTER 4 DAYS 06/09/17 20:48 Blood Culture - Preliminary Blood-Venous NO GROWTH AFTER 4 DAYS Lab Studies 06/14/17 06/14/17 06/14/17 Range/Units 07:23 07:23 07:23 WBC (4.8-10.8) K/uL RBC (4.40-5.90) Mil/uL Hgb (12.0-18.0) g/dL Hct (35.0-51.0) % MCV (80.0-94.0) fL MCH (27.0-31.0) pg MCHC (33.0-37.0) g/dL RDW (11.5-14.5) % Plt Count (130-400) K/uL MPV (7.2-11.7) fL Neut % (Auto) (50.0-75.0) % Lymph % (Auto) (20.0-40.0) % [place] % (Auto) (0.0-10.0) % Eos % (Auto) (0.0-4.0) % Baso % (Auto) (0.0-2.0) % Neut # (1.8-7.0) K/uL Lymph # (1.0-4.3) K/uL [place] # (0.0-0.8) K/uL Eos # (0.0-0.7) K/uL Baso # (0.0-0.2) K/uL Sodium (132-148) mmol/L Potassium (3.6-5.2) mmol/L Chloride (98-107) mmol/L Carbon Dioxide (22-30) mmol/L Anion Gap (10-20) BUN (9-20) mg/dL Creatinine (0.8-1.5) MG/DL Est GFR ( Amer) Est GFR (Non-Af Amer) Random Glucose (75-110) mg/dL Calcium (8.6-10.4) mg/dl Phosphorus (2.5-4.5) mg/dL Magnesium (1.6-2.3) mg/dL Total Bilirubin (0.2-1.3) mg/dL AST (17-59) U/L ALT (21-72) U/L Alkaline Phosphatase (38-126) U/L Ammonia 22 (9-33) umol/L Total Protein (6.3-8.3) g/dL Albumin (3.5-5.0) g/dL Albumin (PEP) (3.8-4.8) g/dL Globulin (2.2-3.9) gm/dL Albumin/Globulin Ratio (1.0-2.1) Stxfx-1-Wjwxzjyzd (0.2-0.3) g/dL Anoxa-6-Ebnzmtamz (0.5-0.9) g/dL Yfjy-5-Tdyualqc (0.4-0.6) g/dL Jvrk-4-Nwwvilyq (0.2-0.5) g/dL Gamma Globulins (0.8-1.7) g/dL Abnorm Protein Band 1 (None Detected) g/dL Abnorm Protein Band 2 Abnorm Protein Band 3 Alpha Fetoprotein 1.9 (0.0-7.5) ng/mL JANES & SPEP Interp Urine Immunofixation (Not Detected) ALDAIR 6 Profile (NEGATIVE) RPR Nonreactive (NONREACTIVE) HIV 1&2 Antibody Screen (NEGATIVE) Blood Parasites Smear (NEGATIVE) 06/14/17 06/14/17 06/13/17 Range/Units 06:27 06:27 17:50 WBC 7.8 (4.8-10.8) K/uL RBC 3.53 L (4.40-5.90) Mil/uL Hgb 11.1 L (12.0-18.0) g/dL Hct 33.7 L (35.0-51.0) % MCV 95.6 H (80.0-94.0) fL MCH 31.5 H (27.0-31.0) pg MCHC 33.0 (33.0-37.0) g/dL RDW 19.2 H (11.5-14.5) % Plt Count 97 L (130-400) K/uL MPV 11.5 (7.2-11.7) fL Neut % (Auto) 77.3 H (50.0-75.0) % Lymph % (Auto) 15.7 L (20.0-40.0) % [place] % (Auto) 5.7 (0.0-10.0) % Eos % (Auto) 0.8 (0.0-4.0) % Baso % (Auto) 0.5 (0.0-2.0) % Neut # 6.0 (1.8-7.0) K/uL Lymph # 1.2 (1.0-4.3) K/uL [place] # 0.4 (0.0-0.8) K/uL Eos # 0.1 (0.0-0.7) K/uL Baso # 0.0 (0.0-0.2) K/uL Sodium 139 (132-148) mmol/L Potassium 4.1 (3.6-5.2) mmol/L Chloride 103 (98-107) mmol/L Carbon Dioxide 25 (22-30) mmol/L Anion Gap 15 (10-20) BUN 108 H* (9-20) mg/dL Creatinine 6.0 H (0.8-1.5) MG/DL Est GFR ( Amer) 11 Est GFR (Non-Af Amer) 9 Random Glucose 110 (75-110) mg/dL Calcium 6.2 L (8.6-10.4) mg/dl Phosphorus 4.7 H (2.5-4.5) mg/dL Magnesium 1.6 (1.6-2.3) mg/dL Total Bilirubin 0.7 (0.2-1.3) mg/dL AST 49 (17-59) U/L ALT 37 (21-72) U/L Alkaline Phosphatase 68 (38-126) U/L Ammonia (9-33) umol/L Total Protein 5.7 L (6.3-8.3) g/dL Albumin 2.2 L (3.5-5.0) g/dL Albumin (PEP) (3.8-4.8) g/dL Globulin 3.6 (2.2-3.9) gm/dL Albumin/Globulin Ratio 0.6 L (1.0-2.1) Dcmrf-6-Smvuwsdis (0.2-0.3) g/dL Zfnhm-5-Pqhpjlpyj (0.5-0.9) g/dL Rsfa-0-Txoujcei (0.4-0.6) g/dL Tbxf-9-Bsgucfge (0.2-0.5) g/dL Gamma Globulins (0.8-1.7) g/dL Abnorm Protein Band 1 (None Detected) g/dL Abnorm Protein Band 2 Abnorm Protein Band 3 Alpha Fetoprotein (0.0-7.5) ng/mL JANES & SPEP Interp Urine Immunofixation (Not Detected) ALDAIR 6 Profile (NEGATIVE) RPR (NONREACTIVE) HIV 1&2 Antibody Screen (NEGATIVE) Blood Parasites Smear Negative (NEGATIVE) 06/13/17 06/10/17 06/09/17 Range/Units 17:50 12:37 23:02 WBC (4.8-10.8) K/uL RBC (4.40-5.90) Mil/uL Hgb (12.0-18.0) g/dL Hct (35.0-51.0) % MCV (80.0-94.0) fL MCH (27.0-31.0) pg MCHC (33.0-37.0) g/dL RDW (11.5-14.5) % Plt Count (130-400) K/uL MPV (7.2-11.7) fL Neut % (Auto) (50.0-75.0) % Lymph % (Auto) (20.0-40.0) % [place] % (Auto) (0.0-10.0) % Eos % (Auto) (0.0-4.0) % Baso % (Auto) (0.0-2.0) % Neut # (1.8-7.0) K/uL Lymph # (1.0-4.3) K/uL [place] # (0.0-0.8) K/uL Eos # (0.0-0.7) K/uL Baso # (0.0-0.2) K/uL Sodium (132-148) mmol/L Potassium (3.6-5.2) mmol/L Chloride (98-107) mmol/L Carbon Dioxide (22-30) mmol/L Anion Gap (10-20) BUN (9-20) mg/dL Creatinine (0.8-1.5) MG/DL Est GFR ( Amer) Est GFR (Non-Af Amer) Random Glucose (75-110) mg/dL Calcium (8.6-10.4) mg/dl Phosphorus (2.5-4.5) mg/dL Magnesium (1.6-2.3) mg/dL Total Bilirubin (0.2-1.3) mg/dL AST (17-59) U/L ALT (21-72) U/L Alkaline Phosphatase (38-126) U/L Ammonia (9-33) umol/L Total Protein (6.3-8.3) g/dL Albumin (3.5-5.0) g/dL Albumin (PEP) (3.8-4.8) g/dL Globulin (2.2-3.9) gm/dL Albumin/Globulin Ratio (1.0-2.1) Sdzpx-6-Wsreybmuv (0.2-0.3) g/dL Nxqdf-9-Wzwycznjw (0.5-0.9) g/dL Gvhf-1-Dafdltbr (0.4-0.6) g/dL Urwa-2-Alpjzvcy (0.2-0.5) g/dL Gamma Globulins (0.8-1.7) g/dL Abnorm Protein Band 1 (None Detected) g/dL Abnorm Protein Band 2 Abnorm Protein Band 3 Alpha Fetoprotein (0.0-7.5) ng/mL JANES & SPEP Interp Urine Immunofixation Detected H (Not Detected) ALDAIR 6 Profile Negative (NEGATIVE) RPR (NONREACTIVE) HIV 1&2 Antibody Screen Negative (NEGATIVE) Blood Parasites Smear (NEGATIVE) 06/09/17 Range/Units 20:44 WBC (4.8-10.8) K/uL RBC (4.40-5.90) Mil/uL Hgb (12.0-18.0) g/dL Hct (35.0-51.0) % MCV (80.0-94.0) fL MCH (27.0-31.0) pg MCHC (33.0-37.0) g/dL RDW (11.5-14.5) % Plt Count (130-400) K/uL MPV (7.2-11.7) fL Neut % (Auto) (50.0-75.0) % Lymph % (Auto) (20.0-40.0) % [place] % (Auto) (0.0-10.0) % Eos % (Auto) (0.0-4.0) % Baso % (Auto) (0.0-2.0) % Neut # (1.8-7.0) K/uL Lymph # (1.0-4.3) K/uL [place] # (0.0-0.8) K/uL Eos # (0.0-0.7) K/uL Baso # (0.0-0.2) K/uL Sodium (132-148) mmol/L Potassium (3.6-5.2) mmol/L Chloride (98-107) mmol/L Carbon Dioxide (22-30) mmol/L Anion Gap (10-20) BUN (9-20) mg/dL Creatinine (0.8-1.5) MG/DL Est GFR ( Amer) Est GFR (Non-Af Amer) Random Glucose (75-110) mg/dL Calcium (8.6-10.4) mg/dl Phosphorus (2.5-4.5) mg/dL Magnesium (1.6-2.3) mg/dL Total Bilirubin (0.2-1.3) mg/dL AST (17-59) U/L ALT (21-72) U/L Alkaline Phosphatase (38-126) U/L Ammonia (9-33) umol/L Total Protein (6.3-8.3) g/dL Albumin (3.5-5.0) g/dL Albumin (PEP) 2.1 L (3.8-4.8) g/dL Globulin (2.2-3.9) gm/dL Albumin/Globulin Ratio (1.0-2.1) Fcids-6-Vvdypgzph 0.3 (0.2-0.3) g/dL Nitek-6-Okdbelhoi 0.4 L (0.5-0.9) g/dL Nqjs-5-Wxffrhck 0.3 L (0.4-0.6) g/dL Iccd-2-Plwshvfh 0.4 (0.2-0.5) g/dL Gamma Globulins 1.7 (0.8-1.7) g/dL Abnorm Protein Band 1 0.27 H (None Detected) g/dL Abnorm Protein Band 2 TEST NOT PERFORMED Abnorm Protein Band 3 TEST NOT PERFORMED Alpha Fetoprotein (0.0-7.5) ng/mL JANES & SPEP Interp See note Urine Immunofixation (Not Detected) ALDAIR 6 Profile (NEGATIVE) RPR (NONREACTIVE) HIV 1&2 Antibody Screen (NEGATIVE) Blood Parasites Smear (NEGATIVE) Laboratory Results - last 24 hr 06/09/17 06/09/17 06/10/17 20:44 23:02 12:37 WBC RBC Hgb Hct MCV MCH MCHC RDW Plt Count MPV Neut % (Auto) Lymph % (Auto) [place] % (Auto) Eos % (Auto) Baso % (Auto) Neut # Lymph # [place] # Eos # Baso # Sodium Potassium Chloride Carbon Dioxide Anion Gap BUN Creatinine Est GFR ( Amer) Est GFR (Non-Af Amer) Random Glucose Calcium Phosphorus Magnesium Total Bilirubin AST ALT Alkaline Phosphatase Ammonia Total Protein Albumin Albumin (PEP) 2.1 L Globulin Albumin/Globulin Ratio Teboq-6-Vmyvlfivy 0.3 Mawin-0-Rigjbmysi 0.4 L Dvuw-9-Rglhlrcj 0.3 L Qivv-9-Zlypmrgl 0.4 Gamma Globulins 1.7 Abnorm Protein Band 1 0.27 H Abnorm Protein Band 2 TEST NOT PERFORMED Abnorm Protein Band 3 TEST NOT PERFORMED Alpha Fetoprotein JANES & SPEP Interp See note Urine Immunofixation Detected H ALDAIR 6 Profile Negative RPR HIV 1&2 Antibody Screen Blood Parasites Smear 06/13/17 06/13/17 06/14/17 17:50 17:50 06:27 WBC 7.8 RBC 3.53 L Hgb 11.1 L Hct 33.7 L MCV 95.6 H MCH 31.5 H MCHC 33.0 RDW 19.2 H Plt Count 97 L MPV 11.5 Neut % (Auto) 77.3 H Lymph % (Auto) 15.7 L [place] % (Auto) 5.7 Eos % (Auto) 0.8 Baso % (Auto) 0.5 Neut # 6.0 Lymph # 1.2 [place] # 0.4 Eos # 0.1 Baso # 0.0 Sodium Potassium Chloride Carbon Dioxide Anion Gap BUN Creatinine Est GFR ( Amer) Est GFR (Non-Af Amer) Random Glucose Calcium Phosphorus Magnesium Total Bilirubin AST ALT Alkaline Phosphatase Ammonia Total Protein Albumin Albumin (PEP) Globulin Albumin/Globulin Ratio Hjqkt-9-Tibzkidrv Tzdmn-1-Rnqllluyd Wqow-6-Xkdwirqe Fjjk-4-Tqmrpvat Gamma Globulins Abnorm Protein Band 1 Abnorm Protein Band 2 Abnorm Protein Band 3 Alpha Fetoprotein JANES & SPEP Interp Urine Immunofixation ALDAIR 6 Profile RPR HIV 1&2 Antibody Screen Negative Blood Parasites Smear Negative 06/14/17 06/14/17 06/14/17 06:27 07:23 07:23 WBC RBC Hgb Hct MCV MCH MCHC RDW Plt Count MPV Neut % (Auto) Lymph % (Auto) [place] % (Auto) Eos % (Auto) Baso % (Auto) Neut # Lymph # [place] # Eos # Baso # Sodium 139 Potassium 4.1 Chloride 103 Carbon Dioxide 25 Anion Gap 15 BUN 108 H* Creatinine 6.0 H Est GFR ( Amer) 11 Est GFR (Non-Af Amer) 9 Random Glucose 110 Calcium 6.2 L Phosphorus 4.7 H Magnesium 1.6 Total Bilirubin 0.7 AST 49 ALT 37 Alkaline Phosphatase 68 Ammonia 22 Total Protein 5.7 L Albumin 2.2 L Albumin (PEP) Globulin 3.6 Albumin/Globulin Ratio 0.6 L Wrqdx-9-Olnszwwwz Gewso-1-Bishsvyvz Gekw-2-Bxtwznmr Jjfk-8-Tqqpmxzl Gamma Globulins Abnorm Protein Band 1 Abnorm Protein Band 2 Abnorm Protein Band 3 Alpha Fetoprotein 1.9 JANES & SPEP Interp Urine Immunofixation ALDAIR 6 Profile RPR HIV 1&2 Antibody Screen Blood Parasites Smear 06/14/17 07:23 WBC RBC Hgb Hct MCV MCH MCHC RDW Plt Count MPV Neut % (Auto) Lymph % (Auto) [place] % (Auto) Eos % (Auto) Baso % (Auto) Neut # Lymph # [place] # Eos # Baso # Sodium Potassium Chloride Carbon Dioxide Anion Gap BUN Creatinine Est GFR ( Amer) Est GFR (Non-Af Amer) Random Glucose Calcium Phosphorus Magnesium Total Bilirubin AST ALT Alkaline Phosphatase Ammonia Total Protein Albumin Albumin (PEP) Globulin Albumin/Globulin Ratio Ktvpt-0-Sxgtxqcct Nucyv-8-Rwjdxksea Sihs-3-Fpzjjnzs Cucn-3-Hrrrkehh Gamma Globulins Abnorm Protein Band 1 Abnorm Protein Band 2 Abnorm Protein Band 3 Alpha Fetoprotein JANES & SPEP Interp Urine Immunofixation ALDAIR 6 Profile RPR Nonreactive HIV 1&2 Antibody Screen Blood Parasites Smear Critical Care Progress Note - Nutrition Nutrition: Nutrition Category Date Time Status Renal Diet [DIET] Diets 06/10/17 Dinner Active Assessment/Plan (1) ARF (acute renal failure) Current Visit: Yes Status: Acute Comment: Most likely postobstructive Continue IV fluids and monitor BUN and creatinine Hemodialysis if necessary Transfuse packed RBCs and anemia workup IV albumin and improve nutritional status (2) Hyperkalemia Current Visit: Yes Status: Acute Comment: Received hyperkalemia cocktail in the ER, will give Kayaxalate, Bicarb drip Repeat K level Low K diet Serial EKG Will place Beck for accurate I&O measurement in critically sick Pt (3) Symptomatic anemia Current Visit: Yes Status: Acute Comment: R/O GI bleeding Admit to ICU sec to hemodynamic instability Active type and screen sent, will transfuse 2U packed RBC Two large bore peripheral catheters Supplemental O2 NPO Volume resuscitation IV Hydration IV PANTOPRAZOLE Serial CBCs q 8 /HR (4) Metabolic acidosis Current Visit: Yes Status: Acute Attending/Attestation - Attestation I have personally seen and examined this patient.: Yes I have fully participated in the care of the patient.: Yes I have reviewed all pertinent clinical information: Yes Notes (Text): Today: Sunday, June 11, 2017 The Patient was seen and examined at the bedside, Medical records reviewed, and management issues were discussed and formulated with the house staff. I have reviewed all the relevant clinical, laboratory, hemodynamic, radiographic data and medications Events reviewed Pain issues, skin care, head of the bed elevation, glycemic control were addressed. Agree with above treatment plans as transcribed in note I concur with resident's assessment and plan of care as transcribed in Dr. Toth note.
--- NOTE | 2017-06-12 01:13 | CON ---
DATE: 06/11/2017 TIME OF CONSULTATION: Roughly 10:40 a.m. BRIEF HISTORY: The patient is a 77-year-old male from [place], [facility], who has not seen a doctor for more than a year and is on no medications and is currently admitted for generalized weakness and found to be in acute renal failure during this hospitalization. A bladder ultrasound for distention of the lower abdomen done on 06/09/2017 showed bilateral hydronephrosis with a 5.2 cm bladder mass. The patient gives a history of gradual weakness and also mental deterioration over the past year and also a decreased urinary stream. He has nocturia, 1 to 2. No dysuria, gross hematuria, renal colic, or abdominal pain. He has no past medical history and no past surgical history. ALLERGIES: HE HAS NO KNOWN ALLERGIES TO MEDICATIONS. SOCIAL HISTORY: He has no history of any tobacco or alcohol use. He has complained of a slowly decreased urine output over the last year. PHYSICAL EXAMINATION: GENERAL: He is a well-developed, well-nourished male, alert and oriented. HEENT: Grossly within normal limits. NECK: Supple. Thyroid not palpable. ABDOMEN: Soft, nondistended at this time, he has some mild suprapubic tenderness. No CVA tenderness. GENITALIA: He is not circumcised with a normal glans and meatus and a Beck catheter is draining jane urine well at this hour without any clots. His testicles were down bilaterally, nontender, without any swelling, masses or edema. RECTAL: Showed normal rectal tone without fluctuance or masses. Prostate is slightly enlarged, wide, flat, smooth, symmetrical, and nontender, without nodules or indurations with a palpable median sulcus. VITAL SIGNS: His vital signs today, 06/11/2017, showed a pulse rate of 72, respiratory rate of 15, O2 sat of 97% on room air, and his blood pressure is 100/56. LABORATORY DATA: His laboratory evaluation today, , showed a CBC with a WBC count of 7.1, hemoglobin 11.1, hematocrit 33.9, with a platelet count of 79,000, indicating a moderate anemia with thrombocytopenia. His chem profile today, 06/11/2017, showed a sodium of 141, potassium is now in the normal range of 4.0; however, it was 6.0 on admission. His chloride is 114, CO2 was 12, BUN and creatinine are 122 and 8.0. His creatinine is down from 10 on admission with the Beck catheter. His GFR is 7 and his glucose is 92, calcium is 6.3. His AST was 16, ALT was 25. His urine shows a 24-hour urine protein of 2205.0. His urinalysis done on 06/09/2017 showed the color was yellow, clarity was clear, pH is 5.0, specific gravity 1.011, protein was negative, glucose is normal, ketones were negative, blood was 2+ and this could be secondary to the insertion of the Beck catheter, nitrite was negative, bilirubin was negative, urobilinogen normal, leukocyte esterase was 2+ with 44 wbc's and 17 rbc's with rare of bacteria per high-power field. His microbiology showed some yeast in the urine, his blood cultures showed no growth after 24 hours. DIAGNOSTIC IMPRESSION: 1. Acute renal failure. 2. Benign prostatic hypertrophy. 3. Bladder mass on ultrasound. 4. Possible urinary tract infection. 5. Microscopic hematuria. PLAN: For this patient will be to obtain an abdominopelvic CT without any oral or IV contrast for evaluation of the bladder mass. If there is a bladder mass on CT and this is not the prostate, we will probably schedule patient for a cystoscopy when his BUN has decreased into a more appropriate range. The patient will be placed on dialysis if his BUN and creatinine do not improve further with the Beck catheter. Lui Darby MD MTDD
[2017-06-12 03:16] LABS: CREATININE, RANDOM URINE 45 mg/dL (20-370)
[2017-06-12 04:15] LABS: CHLORIDE URINE 101 mmol/L (32-290)
[2017-06-12 06:39] LABS: BASO % 0.2 % (0.0-2.0); EOS % 0.3 % (0.0-4.0); HEMATOCRIT 36.6 % (35.0-51.0); LYMPH # 0.9 K/uL (1.0-4.3); LYMPH % 12.8 % (20.0-40.0); MEAN CELL VOLUME 95.2 fL (80.0-94.0); MEAN CORPUSCULAR HEMOGLOBIN 30.9 pg (27.0-31.0); MEAN CORPUSCULAR HGB CONC 32.4 g/dL (33.0-37.0); MEAN PLATELET VOLUME 10.8 fL (7.2-11.7); MONO # 0.4 K/uL (0.0-0.8); MONO % 5.8 % (0.0-10.0); NRBC % 0.2 % (0.0-2.0); RED CELL DISTRIBUTION WIDTH 20.2 % (11.5-14.5); WHITE BLOOD COUNT 7.2 K/uL (4.8-10.8)
[2017-06-12 06:57] LABS: ALB/GLOB RATIO 0.6 (1.0-2.1); BILIRUBIN,TOTAL 0.5 mg/dL (0.2-1.3); CALCIUM 6.2 mg/dl (8.6-10.4); MAGNESIUM 1.4 mg/dL (1.6-2.3); PHOSPHOROUS 6.8 mg/dL (2.5-4.5); POTASSIUM 3.8 mmol/L (3.6-5.2); TOTAL PROTEIN 5.3 g/dL (6.3-8.3)
[2017-06-12] MEDS: Multivitamin Vitamin B Complex (Nephro-Vite) Tab PO SCH (08:28)
--- NOTE | 2017-06-12 08:56 | PN ---
REQUESTING PHYSICIAN:: Dr. Akhil Wang. REASON FOR FOLLOWUP: Renal failure, hydronephrosis, metabolic acidosis, and for further evaluation. SUBJECTIVE: Mr. Palmer is a 77 years old elderly, very cachectic male with past medical history significant for nephrolithiasis, was admitted with severe-severe weakness and severe anemia, increased BUN more than 150/creatinine of 10, and found to have bladder outlet obstruction and status post Beck catheter and drained about 2 L of dark-colored urine and also felt mass in the bladder about 3 to 4 cm in diameter, hard in consistency. The patient was admitted to ICU for further management, status post transfusion of 4 units of packed RBC, and also IV hydration. The patient is not in acute distress, complains of vomiting x1 this morning. Denies any chest pain or palpitation. Denies any fever or cough. No abdominal pain. No fever. No cough. No urinary symptoms. PHYSICAL EXAMINATION GENERAL: The patient is 77 years old elderly, thin-built, very cachectic, not in acute distress. VITAL SIGNS: His blood pressure this evening 117/69, pulse 87, respirations 15, saturation 98%, and temperature 97.5. Height is 5 feet 5 inches and weight is 112 pounds. HEENT: Pupils are normal and reactive to light and accommodation. Conjunctivae pink. Sclerae anicteric. Tongue is moist. Trachea is midline. LUNGS: Symmetric on both sides. Bilateral breath sounds present. Occasional crackles present. CARDIOVASCULAR SYSTEM: [place] at the fifth intercostal space, midclavicular line. S1 and S2 audible. No murmur or gallop. ABDOMEN: Normal in appearance, slightly protuberant. Soft, tympanic. No guarding. No hepatosplenomegaly. CENTRAL NERVOUS SYSTEM: The patient is alert, awake, oriented x3. Nonfocal neuro examination. Cranial nerves II through XII grossly intact. Sensory and motor system is grossly within normal limits. EXTREMITIES: No cyanosis. No clubbing. No edema. LABORATORY DATA: Includes as follows: As of 06/11/2017, at 6:14 a.m., WBC 7.1, hemoglobin 11.1, hematocrit is 33.9, and platelet 79. Repeat labs at 11:56 a.m., WBC 6.9, hemoglobin 12, hematocrit 36.7, platelets 88, neutrophils 92, lymph 6, and monos 2. His other laboratory data as of 06/11/2017, at 11:56 a.m., sodium 143, potassium is 4, chloride 113, CO2 12, BUN is 116, creatinine is 8.0, glucose 91, calcium 6.7, phosphorus is 7.1, magnesium 1.5, total bilirubin 1.0, AST 13, ALT 28, alkaline phosphatase 74, total protein 6.1, albumin is 2.1, and globulin is 4.0. Other reports: 24-hour urine volume is 2100. 24-hour urine protein is 2205 mg and creatinine clearance is 5 mL. Stool for occult blood is negative. Complement level C3 is 71 and C4 is 19.7. Immunofixation and protein electrophoresis are pending. Serology: Hepatitis B surface antigen is negative. Surface antibody is negative. Hepatitis B core antibody IgM is negative, and hep C antibody is reactive. CT of the abdomen and pelvis: Impression: Examination markedly limited due to lack of oral or IV contrast, as well emaciated state. Gsojuyhy-fp-imxlu bilateral pleural effusion and associated consolidations. Nodular hepatic contour, low-density lesions throughout the liver, too small to characterize, 9 x 14 mm low-density lesion in the lateral hepatic dome appears cystic, distended gallbladder, and kkzseopz-ec-bijzaj hydronephrosis and proximal hydroureter. No obstructing calculi identified. Thick-walled irregular urinary bladder, Beck catheter aide within the urinary bladder, 3.8 x 5.3 cm mass-like density within the dependent portion of the urinary bladder. X-ray of the abdomen as of 06/11/2017, normal abdominal bowel gas pattern, rounded 13 mm object with central lucency to the left of the L3 vertebra, uncertain significance. CURRENT MEDICATIONS: Include Nephro-Aleksandra one tablet daily, Pepcid 20 mg daily, PhosLo 667 mg p.o. t.i.d., IV fluids D5W with sodium bicarbonate 150 mEq/L at 50 mL/hour. ASSESSMENT AND PLAN: In summary, Mr. Estela Michel is 77 years old elderly, very cachectic male with increased BUN and creatinine, low hemoglobin and hematocrit and low bicarbonate; bilateral hydronephrosis; hydroureter; bilateral pleural effusion, with bladder mass. 1. Renal failure, mvtkf-qi-qplejhp kidney disease. Serum creatinine improved from 10 to 8.0, but more significant improvement in the last 24 hours with persistent hydronephrosis. 2. High anion gap metabolic acidosis. 3. Status post anemia. Hemoglobin and hematocrit stable after transfusion. 4. Bladder mass, rule out malignancy and rule out stones. 5. Obstructive uropathy with bilateral hydronephrosis and hydroureter. The patient will need cystoscopy and may need stents placement. Follow up with Urology for further management. Also, check urine for cytology and also, we will check hepatitis C, viral RNA, and cryoglobulin levels and intravenous fluids discontinued, half-normal saline and started on D5W with 3 ampules of bicarbonate at 50 mL/hour to correct acidosis. Follow up labs in the a.m. The patient does not want to [facility]ard for the hemodialysis at this time. We will continue to monitor closely. Thank you for allowing me to participate in our patient's care. Ruthann Duarte MD
--- NOTE | 2017-06-12 09:51 | CP.PCM.PN ---
Subjective - Date & Time of Evaluation Date of Evaluation: 06/12/17 Time of Evaluation: 09:47 - Subjective Subjective: pt seen and examined, follow up consult is dictated # [id number] 1. josé antonio on ckd 2. b/l hdro ureteronephrosis 3. met. acidosis 4. bladder mass r/o cancer 5. ch. hept.c 6. proteinuria r/o ch gn 7. b/l pleural effusion 8. Severe anemai, s/p transfusion 9. thrombocytopenia r/o MM c/w ivf d5w with 3 amps nahco3 at 50 ml/hr f/u with urology c/w ca acetate supplemant mg Objective - Vital Signs/Intake and Output Vital Signs (last 24 hours): Temp Pulse Resp BP Pulse Ox 98.5 F 100 H 20 117/74 97 06/12/17 08:00 06/12/17 09:00 06/12/17 09:00 06/12/17 09:00 06/12/17 09:00 Intake and Output: 06/12/17 06/12/17 06:59 18:59 Intake Total 500 390 Output Total 730 350 Balance -230 40 - Medications Medications: Current Medications Calcium Acetate (Phoslo) 667 mg PO TID [facility] Last Admin: 06/11/17 17:40 Dose: 667 mg Famotidine (Pepcid) 20 mg IVP DAILY [facility] Last Admin: 06/11/17 09:39 Dose: 20 mg Sodium Bicarbonate 150 meq/ (Dextrose) 1,000 mls @ 50 mls/hr IV .Q20H [facility] Last Admin: 06/11/17 21:10 Dose: 50 mls/hr Magnesium Sulfate/Dextrose (Magnesium Sulfate 1 Gm/100 Ml D5w) 1 gm in 100 mls @ 300 mls/hr IVPB Q30M [facility] Stop: 06/12/17 10:34 Vitamin B Complex/Vit C/Folic Acid (Nephro-Aleksandra) 1 tab PO 0800 [facility] Last Admin: 06/12/17 08:28 Dose: 1 tab - Labs Labs: 06/12/17 06:32 06/12/17 06:32 PT 13.0 SECONDS (9.7-12.2) H 06/09/17 17:28 INR 1.2 06/09/17 17:28 APTT 33 SECONDS (21-34) 06/09/17 17:28
[2017-06-12] MEDS: Magnesium Sulfate 1 gm in D5W 1 GM/100 ML BAG IVPB SCH ×2 (10:55→11:26)
--- NOTE | 2017-06-12 12:04 | VASCLAB ---
PROCEDURE: Lower Extremity Venous Duplex Exam. HISTORY: Leg pain and swollen PRIORS: None. TECHNIQUE: Bilateral common femoral, femoral, popliteal and posterior tibial, peroneal and great saphenous veins were evaluated. Flow was assessed with color Doppler, compressibility, assessment of phasic flow and augmentation response. Report prepared by FLORENCIO Le FINDINGS: RIGHT: 1. Common Femoral Vein: 1.1. Compressibility - Fully compressible: Thrombus - None : Flow - Phasic: Augmentation -Normal: Reflux - None. 2. Femoral Vein: 2.1. Compressibility - Fully compressible: Thrombus - None : Flow - Phasic: Augmentation -Normal: Reflux - None. 3. Popliteal Vein: 3.1. Compressibility - Fully compressible: Thrombus - None : Flow - Phasic: Augmentation -Normal: Reflux - None. 4. Posterior Tibial Vein: 4.1. Compressibility - Fully compressible: Thrombus - None: Flow - Phasic: Augmentation -Normal: Reflux - None. 5. Peroneal Vein: 5.1. Compressibility - Fully compressible: Thrombus - None: Flow - Phasic: Augmentation -Normal: Reflux - None. 6. Great Saphenous Vein: 6.1. Compressibility - Fully compressible: Thrombus - None: Flow - Phasic: Augmentation - Normal: Reflux - None. LEFT: 1. Common Femoral Vein: 1.1. Compressibility - Fully compressible: Thrombus - None: Flow - Phasic: Augmentation -Normal: Reflux - None. 2. Femoral Vein: 2.1. Compressibility - Fully compressible: Thrombus - None: Flow - Phasic: Augmentation -Normal: Reflux - None. 3. Popliteal Vein: 3.1. Compressibility - Fully compressible: Thrombus - None : Flow - Phasic: Augmentation -Normal: Reflux - None. 4. Posterior Tibial Vein: 4.1. Compressibility - Fully compressible: Thrombus - None: Flow - Phasic: Augmentation -Normal: Reflux - None. 5. Peroneal Vein: 5.1. Compressibility - Fully compressible: Thrombus - None: Flow - Phasic: Augmentation -Normal: Reflux - None. 6. Great Saphenous Vein: 6.1. Compressibility - Fully compressible: Thrombus - None: Flow - Phasic: Augmentation - Normal: Reflux - None. OTHER FINDINGS: Right: None significant. Left: None significant. IMPRESSION: Right: No evidence of deep or superficial vein thrombosis of the right lower extremity. Normal valve function noted of the right side. Left: No evidence of deep or superficial vein thrombosis of the left lower extremity. Normal valve function noted of the left side.
--- NOTE | 2017-06-12 13:50 | CP.PCM.PN ---
Subjective - Date & Time of Evaluation Date of Evaluation: 06/12/17 Time of Evaluation: 13:48 - Subjective Subjective: CHIEF COMPLAINTS TODAY : FEELS BETTER AT REST TOO WEAK TO SIT IN CHAIR ROS. HEENT : N. Resp : No cough, wheezing ,pleuritic CP ,or hemoptysis Cardio : No anginal CP, PND, orthopnea, palpitation GI : No abd.pain, n/v ,diarrhea or GI bleeding . [employer] [facility] : No headache, vertigo, focal deficit. Musculoskel : No joint swelling , Derm : No rash Psych : Normal affect. Ext : POS swelling ,calf pain PE. Pt. is alert awake in no distress. V.S As noted in the chart Head ,ear nose,throat and eyes : Normal. Neck : Supple with normal carotids. Lungs: Clear air entry. Heart : S1 & S2 normal with S4. No murmur. Abd : Soft non tender with normal bowel sounds. Neuro : Moves all ext. with no localized deficit. Ext : edema with intact pulses.Non tender calves Derm : No rashes or decubitus ulcer. LABS/RADIOLOGY: H/H 11.6, CR 6.9, CT OF ABD NOTED ASSESSMENT/PLAN : EVAL TO COMMENT ON HYDRO AND BLADDER PATHOLOGY REFUSING DIALYSIS CT CHEST TO DEFINE CONSOLIDATION/EFFUSION Objective - Vital Signs/Intake and Output Vital Signs (last 24 hours): Temp Pulse Resp BP Pulse Ox 97.7 F 82 14 106/62 97 06/12/17 12:00 06/12/17 13:00 06/12/17 13:00 06/12/17 13:00 06/12/17 13:00 Intake and Output: 06/12/17 06/12/17 11:59 23:59 Intake Total 1160 100 Output Total 1410 50 Balance -250 50 - Medications Medications: Current Medications Calcium Acetate (Phoslo) 667 mg PO TID [facility] Last Admin: 06/12/17 10:55 Dose: 667 mg Famotidine (Pepcid) 20 mg IVP DAILY [facility] Last Admin: 06/11/17 09:39 Dose: 20 mg Sodium Bicarbonate 150 meq/ (Dextrose) 1,000 mls @ 50 mls/hr IV .Q20H [facility] Last Admin: 06/11/17 21:10 Dose: 50 mls/hr Vitamin B Complex/Vit C/Folic Acid (Nephro-Aleksandra) 1 tab PO 0800 [facility] Last Admin: 06/12/17 08:28 Dose: 1 tab - Labs Labs: 06/12/17 06:32 06/12/17 06:32 PT 13.0 SECONDS (9.7-12.2) H 06/09/17 17:28 INR 1.2 06/09/17 17:28 APTT 33 SECONDS (21-34) 06/09/17 17:28
--- NOTE | 2017-06-12 14:08 | CP.CCUPN ---
<Linda TothObi - Last Filed: 06/12/17 14:02> CCU Subjective - Physician Review Subjective (Free Text): Patient was seen and examined at bedside in the morning. Patient was alert, but remains weak and lethargic. He reports having urinary retention. Patient denies having chest pain, shortness of breath, abdominal pain, nausea, vomiting, fevers , and headaches. 06/12/17 14:03 CCU Objective - Vital Signs / Intake & Output Vital Signs (Last 4 hours): Vital Signs Temp Pulse Resp BP Pulse Ox 06/12/17 13:00 82 14 106/62 97 06/12/17 12:00 97.7 F 79 16 98/58 L 06/12/17 11:10 88 18 105/65 Intake and Output (Last 8hrs): Intake & Output 06/11/17 06/12/17 06/12/17 22:59 06:59 14:59 Intake Total 600 400 910 Output Total 736 820 2404 Balance -150 -120 -90 Weight 112 lb 6.972 oz Intake: Intake, IV Amount 600 400 550 Left Forearm 350 Right Forearm 600 400 200 Oral 360 Output: Urine 627 535 9426 Urethral (Beck) [phone] - Physical Exam Head: Positive for: Atraumatic, Normocephalic Pupils: Positive for: PERRL Extroacular Muscles: Positive for: EOMI Conjunctiva: Negative for: Icteric Mouth: Positive for: Dry Respiratory/Chest: Positive for: Clear to Auscultation, Decreased Breath Sounds. Negative for: Respiratory Distress, Accessory Muscle Use, Wheezes, Rales, Retracting, Rhonchi Cardiovascular: Positive for: Regular Rate and Rhythm, Normal S1, S2, Peripheal Pulses Present. Negative for: Murmurs, Irregular Rhythm, Tachycardic, Bradycardic Abdomen: Positive for: Normal Bowel Sounds. Negative for: Tenderness, Distention, Rebound, Guarding Back: Positive for: Normal Inspection. Negative for: CVA Tenderness Upper Extremity: Negative for: Edema, Swelling Lower Extremity: Positive for: Edema, Swelling Neurological: Positive for: GCS=15, CN II-XII Intact, Speech Normal Skin: Positive for: Warm, Normal Color, Other (LE edema and chronic skin changes ) Psychiatric: Positive for: Alert, Oriented x 3, Normal Insight - Medications Active Medications: Active Medications Generic Name Dose Route Start Last Admin Trade Name Wanda PRN Reason Stop Dose Admin Calcium Acetate 667 mg 06/10/17 18:00 06/12/17 10:55 Phoslo PO 667 mg TID TANI Administration Famotidine 20 mg 06/10/17 10:00 06/11/17 09:39 Pepcid IVP 20 mg DAILY TANI Administration Sodium Bicarbonate 150 meq/ 1,000 mls @ 50 mls/hr 06/11/17 19:00 06/11/17 21: 10 Dextrose IV 50 mls/hr .Q20H TANI Administration Vitamin B Complex/Vit C/Folic Acid 1 tab 06/11/17 08:00 06/12/17 08:28 Nephro-Aleksandra PO 1 tab 0800 TANI Administration - Patient Studies Lab Studies: Microbiology Studies 06/09/17 21:00 Blood Culture - Preliminary Blood-Venous NO GROWTH AFTER 48 HOURS 06/09/17 20:48 Blood Culture - Preliminary Blood-Venous NO GROWTH AFTER 48 HOURS 06/10/17 00:48 MRSA Culture (Admit) - Final Naris MRSA NOT DETECTED Lab Studies 06/12/17 06/12/17 06/12/17 Range/Units 06:48 06:32 06:32 WBC 7.2 (4.8-10.8) K/uL RBC 3.85 L (4.40-5.90) Mil/uL Hgb 11.9 L (12.0-18.0) g/dL Hct 36.6 (35.0-51.0) % MCV 95.2 H (80.0-94.0) fL MCH 30.9 (27.0-31.0) pg MCHC 32.4 L (33.0-37.0) g/dL RDW 20.2 H (11.5-14.5) % Plt Count 83 L (130-400) K/uL MPV 10.8 (7.2-11.7) fL Neut % (Auto) 80.9 H (50.0-75.0) % Lymph % (Auto) 12.8 L (20.0-40.0) % [place] % (Auto) 5.8 (0.0-10.0) % Eos % (Auto) 0.3 (0.0-4.0) % Baso % (Auto) 0.2 (0.0-2.0) % Neut # 5.8 (1.8-7.0) K/uL Lymph # 0.9 L (1.0-4.3) K/uL [place] # 0.4 (0.0-0.8) K/uL Eos # 0.0 (0.0-0.7) K/uL Baso # 0.0 (0.0-0.2) K/uL Sodium 141 (132-148) mmol/L Potassium 3.8 (3.6-5.2) mmol/L Chloride 114 H (98-107) mmol/L Carbon Dioxide 12 L (22-30) mmol/L Anion Gap 19 (10-20) BUN 113 H* (9-20) mg/dL Creatinine 6.9 H (0.8-1.5) MG/DL Est GFR ( Amer) 9 Est GFR (Non-Af Amer) 8 POC Glucose (mg/dL) 109 (65-110) mg/dL Random Glucose 84 (75-110) mg/dL Calcium 6.2 L (8.6-10.4) mg/dl Phosphorus 6.8 H (2.5-4.5) mg/dL Magnesium 1.4 L (1.6-2.3) mg/dL Total Bilirubin 0.5 (0.2-1.3) mg/dL AST 15 L (17-59) U/L ALT 26 (21-72) U/L Alkaline Phosphatase 64 (38-126) U/L Total Protein 5.3 L (6.3-8.3) g/dL Total Protein (PEP) (6.1-8.1) g/dL Albumin 2.0 L (3.5-5.0) g/dL Globulin 3.4 (2.2-3.9) gm/dL Albumin/Globulin Ratio 0.6 L (1.0-2.1) PTH Intact Whole Molec (14-64) pg/mL Ur Random Creatinine (20-370) mg/dL U Random Total Protein (22-128) mg/g creat Urine Chloride (32-290) mmol/L 06/11/17 06/11/17 06/10/17 Range/Units 23:37 17:40 12:37 WBC (4.8-10.8) K/uL RBC (4.40-5.90) Mil/uL Hgb (12.0-18.0) g/dL Hct (35.0-51.0) % MCV (80.0-94.0) fL MCH (27.0-31.0) pg MCHC (33.0-37.0) g/dL RDW (11.5-14.5) % Plt Count (130-400) K/uL MPV (7.2-11.7) fL Neut % (Auto) (50.0-75.0) % Lymph % (Auto) (20.0-40.0) % [place] % (Auto) (0.0-10.0) % Eos % (Auto) (0.0-4.0) % Baso % (Auto) (0.0-2.0) % Neut # (1.8-7.0) K/uL Lymph # (1.0-4.3) K/uL [place] # (0.0-0.8) K/uL Eos # (0.0-0.7) K/uL Baso # (0.0-0.2) K/uL Sodium (132-148) mmol/L Potassium (3.6-5.2) mmol/L Chloride (98-107) mmol/L Carbon Dioxide (22-30) mmol/L Anion Gap (10-20) BUN (9-20) mg/dL Creatinine (0.8-1.5) MG/DL Est GFR ( Amer) Est GFR (Non-Af Amer) POC Glucose (mg/dL) 120 H 103 (65-110) mg/dL Random Glucose (75-110) mg/dL Calcium (8.6-10.4) mg/dl Phosphorus (2.5-4.5) mg/dL Magnesium (1.6-2.3) mg/dL Total Bilirubin (0.2-1.3) mg/dL AST (17-59) U/L ALT (21-72) U/L Alkaline Phosphatase (38-126) U/L Total Protein (6.3-8.3) g/dL Total Protein (PEP) (6.1-8.1) g/dL Albumin (3.5-5.0) g/dL Globulin (2.2-3.9) gm/dL Albumin/Globulin Ratio (1.0-2.1) PTH Intact Whole Molec (14-64) pg/mL Ur Random Creatinine (20-370) mg/dL U Random Total Protein (22-128) mg/g creat Urine Chloride 101 (32-290) mmol/L 06/10/17 06/09/17 06/09/17 Range/Units 12:37 23:02 20:44 WBC (4.8-10.8) K/uL RBC (4.40-5.90) Mil/uL Hgb (12.0-18.0) g/dL Hct (35.0-51.0) % MCV (80.0-94.0) fL MCH (27.0-31.0) pg MCHC (33.0-37.0) g/dL RDW (11.5-14.5) % Plt Count (130-400) K/uL MPV (7.2-11.7) fL Neut % (Auto) (50.0-75.0) % Lymph % (Auto) (20.0-40.0) % [place] % (Auto) (0.0-10.0) % Eos % (Auto) (0.0-4.0) % Baso % (Auto) (0.0-2.0) % Neut # (1.8-7.0) K/uL Lymph # (1.0-4.3) K/uL [place] # (0.0-0.8) K/uL Eos # (0.0-0.7) K/uL Baso # (0.0-0.2) K/uL Sodium (132-148) mmol/L Potassium (3.6-5.2) mmol/L Chloride (98-107) mmol/L Carbon Dioxide (22-30) mmol/L Anion Gap (10-20) BUN (9-20) mg/dL Creatinine (0.8-1.5) MG/DL Est GFR ( Amer) Est GFR (Non-Af Amer) POC Glucose (mg/dL) (65-110) mg/dL Random Glucose (75-110) mg/dL Calcium (8.6-10.4) mg/dl Phosphorus (2.5-4.5) mg/dL Magnesium (1.6-2.3) mg/dL Total Bilirubin (0.2-1.3) mg/dL AST (17-59) U/L ALT (21-72) U/L Alkaline Phosphatase (38-126) U/L Total Protein (6.3-8.3) g/dL Total Protein (PEP) 5.2 L (6.1-8.1) g/dL Albumin (3.5-5.0) g/dL Globulin (2.2-3.9) gm/dL Albumin/Globulin Ratio (1.0-2.1) PTH Intact Whole Molec 187 H (14-64) pg/mL Ur Random Creatinine 45 (20-370) mg/dL U Random Total Protein 2700 H (22-128) mg/g creat Urine Chloride (32-290) mmol/L Laboratory Results - last 24 hr 06/09/17 06/09/17 06/10/17 20:44 23:02 12:37 WBC RBC Hgb Hct MCV MCH MCHC RDW Plt Count MPV Neut % (Auto) Lymph % (Auto) [place] % (Auto) Eos % (Auto) Baso % (Auto) Neut # Lymph # [place] # Eos # Baso # Sodium Potassium Chloride Carbon Dioxide Anion Gap BUN Creatinine Est GFR ( Amer) Est GFR (Non-Af Amer) POC Glucose (mg/dL) Random Glucose Calcium Phosphorus Magnesium Total Bilirubin AST ALT Alkaline Phosphatase Total Protein Total Protein (PEP) 5.2 L Albumin Globulin Albumin/Globulin Ratio PTH Intact Whole Molec 187 H Ur Random Creatinine 45 U Random Total Protein 2700 H Urine Chloride 06/10/17 06/11/17 06/11/17 12:37 17:40 23:37 WBC RBC Hgb Hct MCV MCH MCHC RDW Plt Count MPV Neut % (Auto) Lymph % (Auto) [place] % (Auto) Eos % (Auto) Baso % (Auto) Neut # Lymph # [place] # Eos # Baso # Sodium Potassium Chloride Carbon Dioxide Anion Gap BUN Creatinine Est GFR ( Amer) Est GFR (Non-Af Amer) POC Glucose (mg/dL) 103 120 H Random Glucose Calcium Phosphorus Magnesium Total Bilirubin AST ALT Alkaline Phosphatase Total Protein Total Protein (PEP) Albumin Globulin Albumin/Globulin Ratio PTH Intact Whole Molec Ur Random Creatinine U Random Total Protein Urine Chloride 101 06/12/17 06/12/17 06/12/17 06:32 06:32 06:48 WBC 7.2 RBC 3.85 L Hgb 11.9 L Hct 36.6 MCV 95.2 H MCH 30.9 MCHC 32.4 L RDW 20.2 H Plt Count 83 L MPV 10.8 Neut % (Auto) 80.9 H Lymph % (Auto) 12.8 L [place] % (Auto) 5.8 Eos % (Auto) 0.3 Baso % (Auto) 0.2 Neut # 5.8 Lymph # 0.9 L [place] # 0.4 Eos # 0.0 Baso # 0.0 Sodium 141 Potassium 3.8 Chloride 114 H Carbon Dioxide 12 L Anion Gap 19 BUN 113 H* Creatinine 6.9 H Est GFR ( Amer) 9 Est GFR (Non-Af Amer) 8 POC Glucose (mg/dL) 109 Random Glucose 84 Calcium 6.2 L Phosphorus 6.8 H Magnesium 1.4 L Total Bilirubin 0.5 AST 15 L ALT 26 Alkaline Phosphatase 64 Total Protein 5.3 L Total Protein (PEP) Albumin 2.0 L Globulin 3.4 Albumin/Globulin Ratio 0.6 L PTH Intact Whole Molec Ur Random Creatinine U Random Total Protein Urine Chloride Fingerstick Blood Sugar Results: 109 Review of Systems - Constitutional Constitutional: absent: Fever - EENT Ears: absent: Dizziness - Cardiovascular Cardiovascular: absent: Chest Pain, Dyspnea - Respiratory Respiratory: absent: Cough, Dyspnea - Gastrointestinal Gastrointestinal: absent: Abdominal Pain, Constipation, Diarrhea, Nausea, Vomiting - Genitourinary Genitourinary: Other (retention) - Integumentary Integumentary: Swelling (LE) - Neurological Neurological: Weakness. absent: Dizziness, Headaches - Endocrine Endocrine: Fatigue Critical Care Progress Note - Nutrition Nutrition: Nutrition Category Date Time Status Renal Diet [DIET] Diets 06/10/17 Dinner Active Assessment/Plan - Assessment and Plan (Free Text) Assessment: Neuro: alert, oriented x3 Pulm: no acute issues CV: - LE edema - Duplex scan LE: no DVTs B/L Endo: no acute issues GI/: Bladder mass, urinary retention - Bladder US: b/l hydronephrosis, bladder mass (5.2cm) - Urology consulted- Dr. Darby, help appreciated - Bekc catheter - Stool occult: negative - PSA: 3.55 - Abd CT: mod-large pleural effusions and consolidations; nodular hepatic contour; low-density lesions throughout liver; cystic appearing liver lesion; distended gallbladder; mod-severe hydronephrosis and proximal hydroureter; thick -walled irregular urinary bladder; 3.8x5.3cm mass-like density within depending portion of urinary bladder - Hepatitis B panel: Negative - Hepatitis C Antibody: Positive - Hepatitis C Viral RNA: F/U Heme: Anemia, thrombocytopenia - At admission, Hgb 5.8--> improving, 11.9 (06/12/17) - Transfused 2 units, Hgb increased to 6.6 - Platelets 88 (06/12/17) Renal: Renal failure - Nephrology consulted- theresa Oates appreciated - GLADYS on CKD - Hyperkalemia: improved, 4.0 - Hyperphosphatemia: Continue Phoslo - Hypomagnesemia: gave 1gm Mg Sulfate - Severe metabolic acidosis - Continue Sodium Bicarb IV - Possibly requires dialysis ID: no acute issues Prophylaxis: - DVT: SCDs, C/I to anticoagulation (anemia) - GI: Pepcid daily <Manjit Krueger S - Last Filed: 06/12/17 17:31> CCU Objective - Vital Signs / Intake & Output Vital Signs (Last 4 hours): Vital Signs Temp Pulse Resp BP Pulse Ox 06/12/17 16:00 97.8 F 86 16 100/60 95 06/12/17 15:00 88 17 102/62 97 06/12/17 14:00 90 19 119/71 98 Intake and Output (Last 8hrs): Intake & Output 06/12/17 06/12/17 06/12/17 06:59 14:59 22:59 Intake Total 400 1280 100 Output Total 520 800 100 Balance -120 480 0 Intake: Intake, IV Amount 400 600 100 Left Forearm 400 100 Right Forearm 400 200 Oral 680 Output: Urine 520 800 100 Urethral (Beck) 520 800 100 - Medications Active Medications: Active Medications Generic Name Dose Route Start Last Admin Trade Name Freq PRN Reason Stop Dose Admin Calcium Acetate 667 mg 06/10/17 18:00 06/12/17 14:46 Phoslo PO 667 mg TID TANI Administration Famotidine 20 mg 06/10/17 10:00 06/12/17 14:46 Pepcid IVP 20 mg DAILY TANI Administration Sodium Bicarbonate 150 meq/ 1,000 mls @ 50 mls/hr 06/11/17 19:00 06/11/17 21: 10 Dextrose IV 50 mls/hr .Q20H TANI Administration Vitamin B Complex/Vit C/Folic Acid 1 tab 06/11/17 08:00 06/12/17 08:28 Nephro-Aleksandra PO 1 tab 0800 TANI Administration - Patient Studies Lab Studies: Microbiology Studies 06/09/17 21:00 Blood Culture - Preliminary Blood-Venous NO GROWTH AFTER 48 HOURS 06/09/17 20:48 Blood Culture - Preliminary Blood-Venous NO GROWTH AFTER 48 HOURS Lab Studies 06/12/17 06/12/17 06/12/17 Range/Units 06:48 06:32 06:32 WBC 7.2 (4.8-10.8) K/uL RBC 3.85 L (4.40-5.90) Mil/uL Hgb 11.9 L (12.0-18.0) g/dL Hct 36.6 (35.0-51.0) % MCV 95.2 H (80.0-94.0) fL MCH 30.9 (27.0-31.0) pg MCHC 32.4 L (33.0-37.0) g/dL RDW 20.2 H (11.5-14.5) % Plt Count 83 L (130-400) K/uL MPV 10.8 (7.2-11.7) fL Neut % (Auto) 80.9 H (50.0-75.0) % Lymph % (Auto) 12.8 L (20.0-40.0) % [place] % (Auto) 5.8 (0.0-10.0) % Eos % (Auto) 0.3 (0.0-4.0) % Baso % (Auto) 0.2 (0.0-2.0) % Neut # 5.8 (1.8-7.0) K/uL Lymph # 0.9 L (1.0-4.3) K/uL [place] # 0.4 (0.0-0.8) K/uL Eos # 0.0 (0.0-0.7) K/uL Baso # 0.0 (0.0-0.2) K/uL Sodium 141 (132-148) mmol/L Potassium 3.8 (3.6-5.2) mmol/L Chloride 114 H (98-107) mmol/L Carbon Dioxide 12 L (22-30) mmol/L Anion Gap 19 (10-20) BUN 113 H* (9-20) mg/dL Creatinine 6.9 H (0.8-1.5) MG/DL Est GFR ( Amer) 9 Est GFR (Non-Af Amer) 8 POC Glucose (mg/dL) 109 (65-110) mg/dL Random Glucose 84 (75-110) mg/dL Calcium 6.2 L (8.6-10.4) mg/dl Phosphorus 6.8 H (2.5-4.5) mg/dL Magnesium 1.4 L (1.6-2.3) mg/dL Total Bilirubin 0.5 (0.2-1.3) mg/dL AST 15 L (17-59) U/L ALT 26 (21-72) U/L Alkaline Phosphatase 64 (38-126) U/L Total Protein 5.3 L (6.3-8.3) g/dL Albumin 2.0 L (3.5-5.0) g/dL Globulin 3.4 (2.2-3.9) gm/dL Albumin/Globulin Ratio 0.6 L (1.0-2.1) Ur Random Creatinine (20-370) mg/dL U Random Total Protein (22-128) mg/g creat Urine Chloride (32-290) mmol/L 06/11/17 06/11/17 06/10/17 Range/Units 23:37 17:40 12:37 WBC (4.8-10.8) K/uL RBC (4.40-5.90) Mil/uL Hgb (12.0-18.0) g/dL Hct (35.0-51.0) % MCV (80.0-94.0) fL MCH (27.0-31.0) pg MCHC (33.0-37.0) g/dL RDW (11.5-14.5) % Plt Count (130-400) K/uL MPV (7.2-11.7) fL Neut % (Auto) (50.0-75.0) % Lymph % (Auto) (20.0-40.0) % [place] % (Auto) (0.0-10.0) % Eos % (Auto) (0.0-4.0) % Baso % (Auto) (0.0-2.0) % Neut # (1.8-7.0) K/uL Lymph # (1.0-4.3) K/uL [place] # (0.0-0.8) K/uL Eos # (0.0-0.7) K/uL Baso # (0.0-0.2) K/uL Sodium (132-148) mmol/L Potassium (3.6-5.2) mmol/L Chloride (98-107) mmol/L Carbon Dioxide (22-30) mmol/L Anion Gap (10-20) BUN (9-20) mg/dL Creatinine (0.8-1.5) MG/DL Est GFR ( Amer) Est GFR (Non-Af Amer) POC Glucose (mg/dL) 120 H 103 (65-110) mg/dL Random Glucose (75-110) mg/dL Calcium (8.6-10.4) mg/dl Phosphorus (2.5-4.5) mg/dL Magnesium (1.6-2.3) mg/dL Total Bilirubin (0.2-1.3) mg/dL AST (17-59) U/L ALT (21-72) U/L Alkaline Phosphatase (38-126) U/L Total Protein (6.3-8.3) g/dL Albumin (3.5-5.0) g/dL Globulin (2.2-3.9) gm/dL Albumin/Globulin Ratio (1.0-2.1) Ur Random Creatinine (20-370) mg/dL U Random Total Protein (22-128) mg/g creat Urine Chloride 101 (32-290) mmol/L 06/10/17 Range/Units 12:37 WBC (4.8-10.8) K/uL RBC (4.40-5.90) Mil/uL Hgb (12.0-18.0) g/dL Hct (35.0-51.0) % MCV (80.0-94.0) fL MCH (27.0-31.0) pg MCHC (33.0-37.0) g/dL RDW (11.5-14.5) % Plt Count (130-400) K/uL MPV (7.2-11.7) fL Neut % (Auto) (50.0-75.0) % Lymph % (Auto) (20.0-40.0) % [place] % (Auto) (0.0-10.0) % Eos % (Auto) (0.0-4.0) % Baso % (Auto) (0.0-2.0) % Neut # (1.8-7.0) K/uL Lymph # (1.0-4.3) K/uL [place] # (0.0-0.8) K/uL Eos # (0.0-0.7) K/uL Baso # (0.0-0.2) K/uL Sodium (132-148) mmol/L Potassium (3.6-5.2) mmol/L Chloride (98-107) mmol/L Carbon Dioxide (22-30) mmol/L Anion Gap (10-20) BUN (9-20) mg/dL Creatinine (0.8-1.5) MG/DL Est GFR ( Amer) Est GFR (Non-Af Amer) POC Glucose (mg/dL) (65-110) mg/dL Random Glucose (75-110) mg/dL Calcium (8.6-10.4) mg/dl Phosphorus (2.5-4.5) mg/dL Magnesium (1.6-2.3) mg/dL Total Bilirubin (0.2-1.3) mg/dL AST (17-59) U/L ALT (21-72) U/L Alkaline Phosphatase (38-126) U/L Total Protein (6.3-8.3) g/dL Albumin (3.5-5.0) g/dL Globulin (2.2-3.9) gm/dL Albumin/Globulin Ratio (1.0-2.1) Ur Random Creatinine 45 (20-370) mg/dL U Random Total Protein 2700 H (22-128) mg/g creat Urine Chloride (32-290) mmol/L Laboratory Results - last 24 hr 06/10/17 06/10/17 06/11/17 12:37 12:37 17:40 WBC RBC Hgb Hct MCV MCH MCHC RDW Plt Count MPV Neut % (Auto) Lymph % (Auto) [place] % (Auto) Eos % (Auto) Baso % (Auto) Neut # Lymph # [place] # Eos # Baso # Sodium Potassium Chloride Carbon Dioxide Anion Gap BUN Creatinine Est GFR ( Amer) Est GFR (Non-Af Amer) POC Glucose (mg/dL) 103 Random Glucose Calcium Phosphorus Magnesium Total Bilirubin AST ALT Alkaline Phosphatase Total Protein Albumin Globulin Albumin/Globulin Ratio Ur Random Creatinine 45 U Random Total Protein 2700 H Urine Chloride 101 06/11/17 06/12/17 06/12/17 23:37 06:32 06:32 WBC 7.2 RBC 3.85 L Hgb 11.9 L Hct 36.6 MCV 95.2 H MCH 30.9 MCHC 32.4 L RDW 20.2 H Plt Count 83 L MPV 10.8 Neut % (Auto) 80.9 H Lymph % (Auto) 12.8 L [place] % (Auto) 5.8 Eos % (Auto) 0.3 Baso % (Auto) 0.2 Neut # 5.8 Lymph # 0.9 L [place] # 0.4 Eos # 0.0 Baso # 0.0 Sodium 141 Potassium 3.8 Chloride 114 H Carbon Dioxide 12 L Anion Gap 19 BUN 113 H* Creatinine 6.9 H Est GFR ( Amer) 9 Est GFR (Non-Af Amer) 8 POC Glucose (mg/dL) 120 H Random Glucose 84 Calcium 6.2 L Phosphorus 6.8 H Magnesium 1.4 L Total Bilirubin 0.5 AST 15 L ALT 26 Alkaline Phosphatase 64 Total Protein 5.3 L Albumin 2.0 L Globulin 3.4 Albumin/Globulin Ratio 0.6 L Ur Random Creatinine U Random Total Protein Urine Chloride 06/12/17 06:48 WBC RBC Hgb Hct MCV MCH MCHC RDW Plt Count MPV Neut % (Auto) Lymph % (Auto) [place] % (Auto) Eos % (Auto) Baso % (Auto) Neut # Lymph # [place] # Eos # Baso # Sodium Potassium Chloride Carbon Dioxide Anion Gap BUN Creatinine Est GFR ( Amer) Est GFR (Non-Af Amer) POC Glucose (mg/dL) 109 Random Glucose Calcium Phosphorus Magnesium Total Bilirubin AST ALT Alkaline Phosphatase Total Protein Albumin Globulin Albumin/Globulin Ratio Ur Random Creatinine U Random Total Protein Urine Chloride Critical Care Progress Note - Nutrition Nutrition: Nutrition Category Date Time Status Renal Diet [DIET] Diets 06/10/17 Dinner Active Assessment/Plan (1) ARF (acute renal failure) Current Visit: Yes Status: Acute Comment: Most likely postobstructive Continue IV fluids and monitor BUN and creatinine Hemodialysis if necessary Transfuse packed RBCs and anemia workup IV albumin and improve nutritional status (2) Hyperkalemia Current Visit: Yes Status: Acute Comment: Received hyperkalemia cocktail in the ER, will give Kayaxalate, Bicarb drip Repeat K level Low K diet Serial EKG Will place Beck for accurate I&O measurement in critically sick Pt (3) Metabolic acidosis Current Visit: Yes Status: Acute (4) Symptomatic anemia Current Visit: Yes Status: Acute Comment: R/O GI bleeding Admit to ICU sec to hemodynamic instability Active type and screen sent, will transfuse 2U packed RBC Two large bore peripheral catheters Supplemental O2 NPO Volume resuscitation IV Hydration IV PANTOPRAZOLE Serial CBCs q 8 /HR Attending/Attestation - Attestation I have personally seen and examined this patient.: Yes I have fully participated in the care of the patient.: Yes I have reviewed all pertinent clinical information: Yes Notes (Text): 06/12/17 17:29 Patient seen and examined in the intensive care unit. Case discussed with house staff in the morning. Improving renal function noted Continue IV fluids CAT scan of the abdomen and pelvis noted with bladder mass Patient seen by nephrology and ordered further tests Urology follow-up Check hepatitis C viral RNA Continue bicarbonate
--- NOTE | 2017-06-12 17:45 | CARD ---
APPROVED REPORT EKG Measurement Heart [id number] <Conclusion> Normal sinus rhythm Voltage criteria for left ventricular hypertrophy Cannot rule out Inferior infarct, age undetermined ST & T wave abnormality, consider lateral ischemia Abnormal ECG
[2017-06-12] MEDS: Sodium Bicarbonate 8.4% 150 MEQ in Dextrose 5% In Water 850 ML IV SCH (18:29)
--- NOTE | 2017-06-12 18:46 | CT ---
PROCEDURE: CT Chest without contrast HISTORY: r/o pleural effusion COMPARISON: None. TECHNIQUE: Contiguous axial images were obtained through the chest without intravenous contrast enhancement. Sagittal and coronal reconstructions were performed. Radiation dose (DLP): 256.34 mGy-cm. This CT exam was performed using one or more of the following dose reduction techniques: Automated exposure control, adjustment of the mA and/or kV according to patient size, and/or use of iterative reconstruction technique. FINDINGS: LUNGS: Right upper lobe infiltrate. Nonspecific patchy opacities in left upper lobe. Complete atelectasis of right lower lobe. Subsegmental left lower lobe atelectasis. Large bilateral pleural effusion. No pneumothorax. MEDIASTINUM: Unremarkable thoracic aorta. No aneurysm. Mild cardiomegaly. Coronary arterial calcification. No pericardial effusion. Main pulmonary artery unremarkable. No vascular congestion. No lymphadenopathy. PLEURA: As above BONES: No fracture. No destructive lesion. UPPER ABDOMEN: Ascites. Bilateral hydronephrosis. Nonspecific rounded low-attenuation lesion in the dome of the right hepatic lobe, 1.5 cm. Nonspecific 9 mm rounded low-attenuation lesion inferior right hepatic lobe. OTHER FINDINGS: Bilateral gynecomastia. Anasarca. IMPRESSION: Large bilateral pleural effusion. Complete right lower lobe atelectasis and subsegmental left lower lobe atelectasis. Right upper lobe infiltrate. Patchy nonspecific left upper lobe opacities. Ascites. Bilateral hydronephrosis. Additional minor findings as above.
--- NOTE | 2017-06-13 02:42 | PN ---
DATE: 06/12/2017 LOCATION: The patient is located in ICU bed 10. REQUESTING PHYSICIAN: Dr. Akhil Wang. REASON FOR RENAL FOLLOWUP: Acute renal failure, chronic kidney disease, metabolic acidosis, and bilateral hydroureteronephrosis and bladder mass. SUBJECTIVE: Mr. Palmer is a 77-year-old elderly, very cachectic male with a history of nephrolithiasis about 20 years ago, who was admitted with severe, severe weakness and very cachectic and also bilateral leg swelling, increased BUN and creatinine, low H and H, hyperkalemia, metabolic acidosis and bladder outlet obstruction status post Beck catheter placement and drained about 2000 mL dark-colored urine, and subsequently, the patient has a good urine output. The patient is feeling better, not in acute distress, status post transfusions of 4 units of packed RBCs since admission. The patient denies any chest pain, palpitations. Denies any nausea, vomiting. The patient does complain of generalized weakness, now better than on admission. Swelling in the legs is slowly improving. PHYSICAL EXAMINATION: GENERAL: Mr. Palmer is a 77-year-old elderly, very cachectic male, not in distress. VITAL SIGNS: As follows; blood pressure this morning is 117/74, pulse 100, respirations about 20, temperature 97.7, saturation 97%. Height is 5 feet 5 inches and weight is 112 pounds. HEENT: Pupils are normal and reactive to light and accommodation. Conjunctivae pink. Sclerae anicteric. Tongue is moist. Trachea is midline. LUNGS: Symmetric on both sides. Decreased breath sounds on bases. CARDIOVASCULAR: [place] at the fifth intercostal space, midclavicular line. S1 and S2 audible. No murmur or gallop. ABDOMEN: Normal in appearance. Soft, tympanic. No guarding. No rigidity. No hepatosplenomegaly. CENTRAL NERVOUS SYSTEM: The patient is alert, awake, and oriented x3. Nonfocal neuro examination. Cranial nerves II through XII grossly intact. Sensory and motor system are within normal limits. EXTREMITIES: No cyanosis. No clubbing. The patient has 1 to 2+ edema in the both lower extremities with chronic skin changes. CURRENT MEDICATIONS: Include as follows; IV fluids D5W with 3 amps of bicarbonate at 50 mL/hour, Nephrocaps 1 tablet daily, famotidine 20 mg IV daily, and calcium acetate 667 mg p.o. t.i.d. LABORATORY DATA: Includes as follows; as of 06/12/2017, WBC 7.2, hemoglobin 11.9, hematocrit is 36.6, platelets 283. Sodium 141, potassium 3.8, chloride 114, CO2 of 12, BUN 113, creatinine 6.9, glucose 84. Calcium 6.2, phosphorus is 6.8, magnesium 1.8, total bili 0.5, AST 15, ALT 26, alkaline phosphatase 26, and total protein 5.3. Albumin is 2.0, globulin 3.4. His iron is 47, TIBC 194, saturation 24, and ferritin is 148, and PTH intact is 187. IMPRESSION: In summary, Mr. Palmer is a 77-year-old elderly, very cachectic male with severe anemia, metabolic acidosis, and renal failure with bilateral hydroureteronephrosis and bladder mass. 1. Renal failure, acute on chronic kidney disease. 2. Hydroureteronephrosis secondary to obstructive uropathy, rule out bladder mass, rule out bladder cancer. 3. Metabolic acidosis secondary to renal failure and hydronephrosis. Continue IV fluids D5W with bicarbonate 150 mEq at 50 mL/hour. 4. Secondary hyperparathyroidism. We will add calcitriol 0.25 mcg p.o. daily and continue calcium acetate 3 times a day with food and follow with the urology for further management of bladder mass, may need a cystoscopy and biopsy, may need ureter stents if the patient has persistent hydronephrosis. Repeat labs in a.m. Consult bedside physical therapy and also check hepatitis C viral RNA/PCR, and we will check CA, CA 19-9 and alpha fetoprotein also in a.m., and also we will check echocardiogram for left ventricular ejection fraction and to rule out wall motion abnormality. Supplement magnesium also. We will follow with you. Thank you for allowing me to participate in your patient's care. Ruthann Duarte MD
[2017-06-13 06:12] LABS: BASO % 0.4 % (0.0-2.0); EOS # 0.1 K/uL (0.0-0.7); HEMATOCRIT 36.2 % (35.0-51.0); LYMPH # 1.2 K/uL (1.0-4.3); LYMPH % 18.8 % (20.0-40.0); MEAN CELL VOLUME 94.9 fL (80.0-94.0); MEAN CORPUSCULAR HEMOGLOBIN 31.9 pg (27.0-31.0); MEAN CORPUSCULAR HGB CONC 33.7 g/dL (33.0-37.0); MEAN PLATELET VOLUME 10.6 fL (7.2-11.7); MONO # 0.4 K/uL (0.0-0.8); MONO % 6.3 % (0.0-10.0); NRBC % 0.2 % (0.0-2.0); RED CELL DISTRIBUTION WIDTH 19.3 % (11.5-14.5); WHITE BLOOD COUNT 6.5 K/uL (4.8-10.8)
[2017-06-13 06:28] LABS: POTASSIUM 3.7 mmol/L (3.6-5.2)
[2017-06-13 06:30] LABS: ALB/GLOB RATIO 0.5 (1.0-2.1); BILIRUBIN,TOTAL 0.7 mg/dL (0.2-1.3); TOTAL PROTEIN 5.9 g/dL (6.3-8.3)
[2017-06-13 06:31] LABS: CALCIUM 6.5 mg/dl (8.6-10.4); MAGNESIUM 1.7 mg/dL (1.6-2.3); PHOSPHOROUS 5.7 mg/dL (2.5-4.5)
[2017-06-13] MEDS: Multivitamin Vitamin B Complex (Nephro-Vite) Tab PO SCH (08:39)
[2017-06-13 09:21] LABS: GAMMA GLOBULIN 32.4 Relative %
--- NOTE | 2017-06-13 12:52 | CP.PCM.PN ---
Subjective - Date & Time of Evaluation Date of Evaluation: 06/13/17 Time of Evaluation: 12:51 - Subjective Subjective: pt seen and examined, follow up consult is dictated #[id number] Objective - Vital Signs/Intake and Output Vital Signs (last 24 hours): Temp Pulse Resp BP Pulse Ox 97.2 F L 89 17 105/63 93 L 06/13/17 08:00 06/13/17 08:00 06/13/17 08:00 06/13/17 08:00 06/13/17 08:00 Intake and Output: 06/13/17 06/13/17 06:59 18:59 Intake Total 600 510 Output Total 855 Balance -255 510 - Medications Medications: Current Medications Calcium Acetate (Phoslo) 667 mg PO TID [facility] Last Admin: 06/13/17 10:42 Dose: 667 mg Famotidine (Pepcid) 20 mg IVP DAILY [facility] Last Admin: 06/13/17 10:43 Dose: 20 mg Sodium Bicarbonate 150 meq/ (Dextrose) 1,000 mls @ 50 mls/hr IV .Q20H [facility] Last Admin: 06/12/17 18:29 Dose: 50 mls/hr Vitamin B Complex/Vit C/Folic Acid (Nephro-Aleksandra) 1 tab PO 0800 [facility] Last Admin: 06/13/17 08:39 Dose: 1 tab - Labs Labs: 06/13/17 05:59 06/13/17 05:59 PT 13.0 SECONDS (9.7-12.2) H 06/09/17 17:28 INR 1.2 06/09/17 17:28 APTT 33 SECONDS (21-34) 06/09/17 17:28
[2017-06-13] MEDS: Sodium Bicarbonate 8.4% 150 MEQ in Dextrose 5% In Water 850 ML IV SCH ×2 (13:20→16:20)
--- NOTE | 2017-06-13 13:49 | CP.PCM.PN ---
Subjective - Date & Time of Evaluation Date of Evaluation: 06/13/17 Time of Evaluation: 13:48 - Subjective Subjective: CHIEF COMPLAINTS TODAY : FEELS BETTER AT REST TOO WEAK TO SIT IN CHAIR REFUSING DIALYSIS ROS. HEENT : N. Resp : No cough, wheezing ,pleuritic CP ,or hemoptysis Cardio : No anginal CP, PND, orthopnea, palpitation GI : No abd.pain, n/v ,diarrhea or GI bleeding . [employer] : No headache, vertigo, focal deficit. Musculoskel : No joint swelling , Derm : No rash Psych : Normal affect. Ext : POS swelling ,calf pain PE. Pt. is alert awake in no distress. V.S As noted in the chart Head ,ear nose,throat and eyes : Normal. Neck : Supple with normal carotids. Lungs: Clear air entry. Heart : S1 & S2 normal with S4. No murmur. Abd : Soft non tender with normal bowel sounds. Neuro : Moves all ext. with no localized deficit. Ext : edema with intact pulses.Non tender calves Derm : No rashes or decubitus ulcer. LABS/RADIOLOGY: H/H 11.6, CR 6.9, CT OF ABD NOTED ASSESSMENT/PLAN : EVAL TO COMMENT ON HYDRO AND BLADDER PATHOLOGY CT CHEST NOTED Objective - Vital Signs/Intake and Output Vital Signs (last 24 hours): Temp Pulse Resp BP Pulse Ox 97.2 F L 89 17 105/63 93 L 06/13/17 08:00 06/13/17 08:00 06/13/17 08:00 06/13/17 08:00 06/13/17 08:00 Intake and Output: 06/13/17 06/13/17 11:59 23:59 Intake Total 860 Output Total 430 Balance 430 - Medications Medications: Current Medications Calcium Acetate (Phoslo) 667 mg PO TID [facility] Last Admin: 06/13/17 13:22 Dose: 667 mg Famotidine (Pepcid) 20 mg IVP DAILY [facility] Last Admin: 06/13/17 10:43 Dose: 20 mg Sodium Bicarbonate 150 meq/ (Dextrose) 1,000 mls @ 50 mls/hr IV .Q20H [facility] Last Admin: 06/13/17 13:20 Dose: Not Given Vitamin B Complex/Vit C/Folic Acid (Nephro-Aleksandra) 1 tab PO 0800 [facility] Last Admin: 06/13/17 08:39 Dose: 1 tab - Labs Labs: 06/13/17 05:59 06/13/17 05:59 PT 13.0 SECONDS (9.7-12.2) H 06/09/17 17:28 INR 1.2 06/09/17 17:28 APTT 33 SECONDS (21-34) 06/09/17 17:28
--- NOTE | 2017-06-13 14:12 | CARD ---
APPROVED REPORT EXAM: Two-dimensional and M-mode echocardiogram with Doppler and color Doppler. Other Information Quality : GoodRhythm : NSR INDICATION Pleural Effusion CKD 2D DIMENSIONS IVSd0.8 (0.7-1.1cm)LVDd6.0 (3.9-5.9cm) PWd0.6 (0.7-1.1cm)LVDs5.8 (2.5-4.0cm) FS (%) 4.0 %LVEF (%)8.9 (>50%) M-Mode DIMENSIONS RVDd1.73 (2.1-3.2cm)Left Atrium (MM)2.88 (2.5-4.0cm) IVSd0.48 (0.7-1.1cm)Aortic Root3.50 (2.2-3.7cm) LVDd6.42 (4.0-5.6cm)Aortic Cusp Exc.2.40 (1.5-2.0cm) PWd0.81 (0.7-1.1cm)FS (%) 9 % LVDs5.83 (2.0-3.8cm)LVEF (%)20 (>50%) Aortic Valve AI P 1/2 [id number] Mitral Valve MV E Qqrgwkvb91.1cm/sE/A ratio0.0 TDI E/Lateral E'0.0E/Medial E'0.0 Tricuspid Valve TR Peak [id number]/sTR Peak [id number] LEFT VENTRICLE The Left Ventricle is mildly dilated. There is normal left ventricular wall thickness. Left ventricle systolic function is severely impaired. The Ejection Fraction is 10-15%. Septal motion consistent with post-operative state. Transmitral Doppler flow pattern is Grade II-pseudonormal filling dynamics. The left atrial pressure is severely elevated. No left ventricle thrombus noted on this study. There is no ventricular septal defect visualized. There is no left ventricular aneurysm. There is no mass noted in the left ventricle. RIGHT VENTRICLE The right ventricle is normal size. There is normal right ventricular wall thickness. The right ventricular systolic function is normal. ATRIA The left atrium size is normal. The right atrium size is normal. The interatrial septum is intact with no evidence for an atrial septal defect. AORTIC VALVE The aortic valve is normal in structure and function. There is mild aortic regurgitation. There is no aortic valvular stenosis. There is no aortic valvular vegetation. MITRAL VALVE The mitral valve is normal in structure and function. There is no evidence of mitral valve prolapse. There is no mitral valve stenosis. Mitral regurgitation is mild. TRICUSPID VALVE The tricuspid valve is normal in structure and function. There is mild tricuspid regurgitation. Right ventricular systolic pressure is estimated at 30-40 mmHg. There is no tricuspid valve prolapse or vegetation. There is no tricuspid valve stenosis. PULMONIC VALVE The pulmonary valve is normal in structure and function. There is no pulmonic valvular regurgitation. There is no pulmonic valvular stenosis. GREAT VESSELS The aortic root is normal in size. The ascending aorta is normal in size. The pulmonary artery is normal. The IVC is normal in size and collapses >50% with inspiration. PERICARDIAL EFFUSION The pericardium appears normal. There is moderate right pleural effusion. There is moderate left pleural effusion. <Conclusion> The Left Ventricle is mildly dilated. Left ventricle systolic function is severely impaired. The Ejection Fraction is 10-15%. Transmitral Doppler flow pattern is Grade II-pseudonormal filling dynamics. The left atrial pressure is severely elevated. There is mild aortic regurgitation. Mitral regurgitation is mild. There is moderate right pleural effusion. There is moderate left pleural effusion.
--- NOTE | 2017-06-13 15:05 | PN ---
FOLLOWUP INTERVENTIONAL CARE UNIT NOTE DATE: 06/13/2017 TIME OF FOLLOWUP: 11:05 a.m. SUBJECTIVE: The patient is currently resting comfortably in the ICU with the Beck catheter draining jane urine well with no gross blood or clots visualized. His abdominopelvic CT done on 06/11/2017 without any IV or oral contrast secondary to his acute renal failure, showed a thick-walled irregular urinary bladder with a Beck catheter and air within the urinary bladder and a 3.8 x 5.3 cm mass-like density within the dependent portion of the urinary bladder. There was also noted bilateral to large bilateral pleural effusions associated with consolidations, also nodular hepatic contour. Low density lesions throughout the liver pretty small to characterize. A 9 x 14 mm low density lesion in the lateral hepatic dome, which appears to be cystic and distended gallbladder. [id number] hydronephrosis and proximal hydroureter. No obstructing calculi identified. PE: Abdomen is soft, not distended or tender. No CVAT, minimal SPT. LABORATORY DATA: Today 06/13/2017 shows a CBC with a WBC count of 6.5, hemoglobin of 12.2, and hematocrit of 36.2 with a platelet count of 86,000, which is slightly improved from his previous platelet count of 79,000 and 83,000 from 06/12/2017. His chem profile shows a sodium of 142, potassium 3.7, chloride 107, CO2 of 20, BUN and creatinine were still moderately elevated at 113 and 6.4 respectively with GFR of 9. Calcium was 6.5 and random glucose is 124. His phosphorous was 5.7. Total bilirubin was 0.7. His AST was 18 and ALT was 24. IMPRESSION: 1. Acute renal failure. 2. Benign prostatic hypertrophy. 3. Bilateral hydronephrosis. 4. Bladder mass. PLAN: Plan for this patient is to eventually schedule the patient for cystoscopy with possible bladder biopsy and fulguration of biopsy site when the patient is stable and his BUN and creatinine are in a reasonable range with at least 50 for the BUN and his platelet count is also reasonably stabilized. Lui Darby MD cc: Lui Darby MD [facility] # [id number] [place]
--- NOTE | 2017-06-13 15:21 | CP.CCUPN ---
<Linda Toth - Last Filed: 06/13/17 17:33> CCU Subjective - Physician Review Subjective (Free Text): Patient was seen and examined at bedside in the morning. Patient is alert and reports he is feeling better today. He still feels weak and lethargic. Patient denies having chest pain, shortness of breath, abdominal pain, nausea, vomiting , fevers, and headaches. 06/13/17 15:18 CCU Objective - Vital Signs / Intake & Output Intake and Output (Last 8hrs): Intake & Output 06/13/17 06/13/17 06/13/17 06:59 14:59 22:59 Intake Total 400 510 Output Total 490 Balance -90 510 Intake: Intake, IV Amount 400 200 Left Forearm 400 200 Oral 310 Output: Urine 490 Urethral (Beck) 490 - Physical Exam Head: Positive for: Atraumatic, Normocephalic Pupils: Positive for: PERRL Extroacular Muscles: Positive for: EOMI Conjunctiva: Negative for: Icteric Mouth: Positive for: Moist Mucous Membranes Respiratory/Chest: Positive for: Clear to Auscultation, Decreased Breath Sounds. Negative for: Respiratory Distress, Accessory Muscle Use, Wheezes, Rales, Retracting, Rhonchi Cardiovascular: Positive for: Regular Rate and Rhythm, Normal S1, S2, Peripheal Pulses Present. Negative for: Murmurs, Irregular Rhythm, Tachycardic, Bradycardic Abdomen: Positive for: Normal Bowel Sounds. Negative for: Tenderness, Distention, Rebound, Guarding Upper Extremity: Negative for: Edema, Swelling Lower Extremity: Positive for: Edema, Swelling. Negative for: Normal Inspection Neurological: Positive for: Speech Normal Skin: Positive for: Warm, Dry, Normal Color, Other (LE edema and chronic skin changes) Psychiatric: Positive for: Alert, Oriented x 3, Normal Insight, Lethargic - Medications Active Medications: Active Medications Generic Name Dose Route Start Last Admin Trade Name Freq PRN Reason Stop Dose Admin Calcium Acetate 667 mg 06/10/17 18:00 06/13/17 13:22 Phoslo PO 667 mg TID TANI Administration Famotidine 20 mg 06/10/17 10:00 06/13/17 10:43 Pepcid IVP 20 mg DAILY TANI Administration Sodium Bicarbonate 150 meq/ 1,000 mls @ 50 mls/hr 06/11/17 19:00 06/13/17 13: 20 Dextrose IV Not Given .Q20H TANI Vitamin B Complex/Vit C/Folic Acid 1 tab 06/11/17 08:00 06/13/17 08:39 Nephro-Aleksandra PO 1 tab 0800 [facility] Administration - Patient Studies Lab Studies: Microbiology Studies 06/09/17 21:00 Blood Culture - Preliminary Blood-Venous NO GROWTH AFTER 3 DAYS 06/09/17 20:48 Blood Culture - Preliminary Blood-Venous NO GROWTH AFTER 3 DAYS Lab Studies 06/13/17 06/13/17 06/10/17 Range/Units 05:59 05:59 12:37 WBC 6.5 (4.8-10.8) K/uL RBC 3.81 L (4.40-5.90) Mil/uL Hgb 12.2 (12.0-18.0) g/dL Hct 36.2 (35.0-51.0) % MCV 94.9 H (80.0-94.0) fL MCH 31.9 H (27.0-31.0) pg MCHC 33.7 (33.0-37.0) g/dL RDW 19.3 H (11.5-14.5) % Plt Count 86 L (130-400) K/uL MPV 10.6 (7.2-11.7) fL Neut % (Auto) 73.5 (50.0-75.0) % Lymph % (Auto) 18.8 L (20.0-40.0) % [place] % (Auto) 6.3 (0.0-10.0) % Eos % (Auto) 1.0 (0.0-4.0) % Baso % (Auto) 0.4 (0.0-2.0) % Neut # 4.8 (1.8-7.0) K/uL Lymph # 1.2 (1.0-4.3) K/uL [place] # 0.4 (0.0-0.8) K/uL Eos # 0.1 (0.0-0.7) K/uL Baso # 0.0 (0.0-0.2) K/uL Sodium 142 (132-148) mmol/L Potassium 3.7 (3.6-5.2) mmol/L Chloride 107 (98-107) mmol/L Carbon Dioxide 20 L (22-30) mmol/L Anion Gap 19 (10-20) BUN 113 H* (9-20) mg/dL Creatinine 6.4 H (0.8-1.5) MG/DL Est GFR ( Amer) 10 Est GFR (Non-Af Amer) 9 Random Glucose 124 H (75-110) mg/dL Calcium 6.5 L (8.6-10.4) mg/dl Phosphorus 5.7 H (2.5-4.5) mg/dL Magnesium 1.7 (1.6-2.3) mg/dL Total Bilirubin 0.7 (0.2-1.3) mg/dL AST 18 (17-59) U/L ALT 24 (21-72) U/L Alkaline Phosphatase 69 (38-126) U/L Total Protein 5.9 L (6.3-8.3) g/dL Albumin 2.1 L (3.5-5.0) g/dL Globulin 3.9 (2.2-3.9) gm/dL Albumin/Globulin Ratio 0.5 L 0.51 Ginpe-8-Itibzdavw 5.3 Relative % Sbveh-5-Biuptfzqz 9.2 Relative % Beta Globulins 19.6 Relative % Gamma Globulins 32.4 Relative % Urine Albumin (PEP) 33.6 Relative % Ur Protein Fractions See note Laboratory Results - last 24 hr 06/10/17 06/13/17 06/13/17 12:37 05:59 05:59 WBC 6.5 RBC 3.81 L Hgb 12.2 Hct 36.2 MCV 94.9 H MCH 31.9 H MCHC 33.7 RDW 19.3 H Plt Count 86 L MPV 10.6 Neut % (Auto) 73.5 Lymph % (Auto) 18.8 L [place] % (Auto) 6.3 Eos % (Auto) 1.0 Baso % (Auto) 0.4 Neut # 4.8 Lymph # 1.2 [place] # 0.4 Eos # 0.1 Baso # 0.0 Sodium 142 Potassium 3.7 Chloride 107 Carbon Dioxide 20 L Anion Gap 19 BUN 113 H* Creatinine 6.4 H Est GFR ( Amer) 10 Est GFR (Non-Af Amer) 9 Random Glucose 124 H Calcium 6.5 L Phosphorus 5.7 H Magnesium 1.7 Total Bilirubin 0.7 AST 18 ALT 24 Alkaline Phosphatase 69 Total Protein 5.9 L Albumin 2.1 L Globulin 3.9 Albumin/Globulin Ratio 0.51 0.5 L Eiatd-7-Sajwfvonx 5.3 Brxnt-3-Vlrpkafpc 9.2 Beta Globulins 19.6 Gamma Globulins 32.4 Urine Albumin (PEP) 33.6 Ur Protein Fractions See note Fingerstick Blood Sugar Results: 109 Review of Systems - Constitutional Constitutional: absent: Fever - Cardiovascular Cardiovascular: Leg Edema. absent: Chest Pain, Dyspnea - Respiratory Respiratory: absent: Cough, Dyspnea - Gastrointestinal Gastrointestinal: absent: Abdominal Pain, Constipation, Diarrhea, Nausea, Vomiting - Genitourinary Genitourinary: Other (retention) - Neurological Neurological: absent: Dizziness, Headaches Critical Care Progress Note - Nutrition Nutrition: Nutrition Category Date Time Status Renal Diet [DIET] Diets 06/10/17 Dinner Active Assessment/Plan - Assessment and Plan (Free Text) Assessment: Neuro: alert, oriented x3 Pulm: no acute issues CV: - LE edema - Duplex scan LE: no DVTs B/L Endo: no acute issues GI/: Bladder mass, urinary retention - Bladder US: b/l hydronephrosis, bladder mass (5.2cm) - Urology consulted- Dr. Darby, help appreciated - As per urology, will perform cystoscopy with partial resection and biospy once BUN <50, renal function improves - Beck catheter - Stool occult: negative - PSA: 3.55 - Abd CT: mod-large pleural effusions and consolidations; nodular hepatic contour; low-density lesions throughout liver; cystic appearing liver lesion; distended gallbladder; mod-severe hydronephrosis and proximal hydroureter; thick -walled irregular urinary bladder; 3.8x5.3cm mass-like density within depending portion of urinary bladder - Hepatitis B panel: Negative - Hepatitis C Antibody: Positive - Hepatitis C Viral RNA: F/U Heme: Anemia, thrombocytopenia - At admission, Hgb 5.8--> improving, 11.9 (06/12/17) - Transfused 2 units, Hgb increased to 6.6 - Platelets 88 (06/12/17) Renal: Renal failure - Nephrology consulted- Dr. Duarte, help appreciated - GLADYS on CKD - BUN/Cr: 113/6.5 (at admission 152/10.4) - Hyperkalemia: improved, 4.0 - Hyperphosphatemia: Continue Phoslo - Hypomagnesemia: gave 1gm Mg Sulfate - Severe metabolic acidosis - Continue Sodium Bicarb IV - As per nephrology, no required dialysis at this time; continue medical management. ID: no acute issues Prophylaxis: - DVT: SCDs, C/I to anticoagulation (anemia) - GI: Pepcid daily <Manjit Krueger - Last Filed: 06/13/17 18:00> CCU Objective - Vital Signs / Intake & Output Vital Signs (Last 4 hours): Vital Signs Temp Pulse Resp BP 06/13/17 16:00 98.1 F 88 18 100/63 06/13/17 15:00 88 18 92/53 L 06/13/17 14:00 88 20 107/67 Intake and Output (Last 8hrs): Intake & Output 06/13/17 06/13/17 06/13/17 06:59 14:59 22:59 Intake Total 400 970 100 Output Total 490 0 1300 Balance -90 970 -1200 Intake: Intake, IV Amount 400 400 100 Left Forearm 400 400 100 Oral 570 Output: Urine 490 1300 Urethral (Beck) 490 1300 Stool 0 0 - Medications Active Medications: Active Medications Generic Name Dose Route Start Last Admin Trade Name Wanda PRN Reason Stop Dose Admin Calcium Acetate 667 mg 06/10/17 18:00 06/13/17 13:22 Phoslo PO 667 mg TID TANI Administration Famotidine 20 mg 06/10/17 10:00 06/13/17 10:43 Pepcid IVP 20 mg DAILY TANI Administration Sodium Bicarbonate 150 meq/ 1,000 mls @ 50 mls/hr 06/11/17 19:00 06/13/17 16: 20 Dextrose IV 50 mls/hr .Q20H TANI Administration Vitamin B Complex/Vit C/Folic Acid 1 tab 06/11/17 08:00 06/13/17 08:39 Nephro-Aleksandra PO 1 tab 0800 TANI Administration - Patient Studies Lab Studies: Microbiology Studies 06/09/17 21:00 Blood Culture - Preliminary Blood-Venous NO GROWTH AFTER 3 DAYS 06/09/17 20:48 Blood Culture - Preliminary Blood-Venous NO GROWTH AFTER 3 DAYS Lab Studies 08/06/13/17 06/10/17 Range/Units 05:59 05:59 12:37 WBC 6.5 (4.8-10.8) K/uL RBC 3.81 L (4.40-5.90) Mil/uL Hgb 12.2 (12.0-18.0) g/dL Hct 36.2 (35.0-51.0) % MCV 94.9 H (80.0-94.0) fL MCH 31.9 H (27.0-31.0) pg MCHC 33.7 (33.0-37.0) g/dL RDW 19.3 H (11.5-14.5) % Plt Count 86 L (130-400) K/uL MPV 10.6 (7.2-11.7) fL Neut % (Auto) 73.5 (50.0-75.0) % Lymph % (Auto) 18.8 L (20.0-40.0) % [place] % (Auto) 6.3 (0.0-10.0) % Eos % (Auto) 1.0 (0.0-4.0) % Baso % (Auto) 0.4 (0.0-2.0) % Neut # 4.8 (1.8-7.0) K/uL Lymph # 1.2 (1.0-4.3) K/uL [place] # 0.4 (0.0-0.8) K/uL Eos # 0.1 (0.0-0.7) K/uL Baso # 0.0 (0.0-0.2) K/uL Sodium 142 (132-148) mmol/L Potassium 3.7 (3.6-5.2) mmol/L Chloride 107 (98-107) mmol/L Carbon Dioxide 20 L (22-30) mmol/L Anion Gap 19 (10-20) BUN 113 H* (9-20) mg/dL Creatinine 6.4 H (0.8-1.5) MG/DL Est GFR ( Amer) 10 Est GFR (Non-Af Amer) 9 Random Glucose 124 H (75-110) mg/dL Calcium 6.5 L (8.6-10.4) mg/dl Phosphorus 5.7 H (2.5-4.5) mg/dL Magnesium 1.7 (1.6-2.3) mg/dL Total Bilirubin 0.7 (0.2-1.3) mg/dL AST 18 (17-59) U/L ALT 24 (21-72) U/L Alkaline Phosphatase 69 (38-126) U/L Total Protein 5.9 L (6.3-8.3) g/dL Albumin 2.1 L (3.5-5.0) g/dL Globulin 3.9 (2.2-3.9) gm/dL Albumin/Globulin Ratio 0.5 L 0.51 Jfeno-7-Msjxfzteh 5.3 Relative % Yveyl-8-Rclkaqbmn 9.2 Relative % Beta Globulins 19.6 Relative % Gamma Globulins 32.4 Relative % Urine Albumin (PEP) 33.6 Relative % Ur Protein Fractions See note Laboratory Results - last 24 hr 06/10/17 06/13/17 06/13/17 12:37 05:59 05:59 WBC 6.5 RBC 3.81 L Hgb 12.2 Hct 36.2 MCV 94.9 H MCH 31.9 H MCHC 33.7 RDW 19.3 H Plt Count 86 L MPV 10.6 Neut % (Auto) 73.5 Lymph % (Auto) 18.8 L [place] % (Auto) 6.3 Eos % (Auto) 1.0 Baso % (Auto) 0.4 Neut # 4.8 Lymph # 1.2 [place] # 0.4 Eos # 0.1 Baso # 0.0 Sodium 142 Potassium 3.7 Chloride 107 Carbon Dioxide 20 L Anion Gap 19 BUN 113 H* Creatinine 6.4 H Est GFR ( Amer) 10 Est GFR (Non-Af Amer) 9 Random Glucose 124 H Calcium 6.5 L Phosphorus 5.7 H Magnesium 1.7 Total Bilirubin 0.7 AST 18 ALT 24 Alkaline Phosphatase 69 Total Protein 5.9 L Albumin 2.1 L Globulin 3.9 Albumin/Globulin Ratio 0.51 0.5 L Tjhas-2-Hsffhqjtq 5.3 Tkjmm-2-Rrxkxozkz 9.2 Beta Globulins 19.6 Gamma Globulins 32.4 Urine Albumin (PEP) 33.6 Ur Protein Fractions See note Critical Care Progress Note - Nutrition Nutrition: Nutrition Category Date Time Status Renal Diet [DIET] Diets 06/10/17 Dinner Active Assessment/Plan (1) ARF (acute renal failure) Current Visit: Yes Status: Acute Comment: Most likely postobstructive Continue IV fluids and monitor BUN and creatinine Hemodialysis if necessary Transfuse packed RBCs and anemia workup IV albumin and improve nutritional status (2) Hyperkalemia Current Visit: Yes Status: Acute Comment: Received hyperkalemia cocktail in the ER, will give Kayaxalate, Bicarb drip Repeat K level Low K diet Serial EKG Will place Beck for accurate I&O measurement in critically sick Pt (3) Metabolic acidosis Current Visit: Yes Status: Acute (4) Symptomatic anemia Current Visit: Yes Status: Acute Comment: R/O GI bleeding Admit to ICU sec to hemodynamic instability Active type and screen sent, will transfuse 2U packed RBC Two large bore peripheral catheters Supplemental O2 NPO Volume resuscitation IV Hydration IV PANTOPRAZOLE Serial CBCs q 8 /HR Attending/Attestation - Attestation I have personally seen and examined this patient.: Yes I have fully participated in the care of the patient.: Yes I have reviewed all pertinent clinical information: Yes Notes (Text): 06/13/17 18:00 Patient seen and examined in the intensive care unit. Case discussed with house staff in the morning. Patient seen by nephrology and urology and the plan is biopsy of bladder mass Continue IV fluids and bicarbonate Monitor renal function and hemodialysis as needed Follow-up CBC
--- NOTE | 2017-06-13 17:22 | CP.PCM.CON ---
History of Present Illness - History of Present Illness History of Present Illness: 77-year-old male admitted with generalized weakness and found to be severely anemia with acute kidney injury, hyperkalemia and severe metabolic acidosis Ultrasound of the kidneys and bladder showed bladder mass. 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 denies IVDA non smoker no ETOH NKDA FH- N/C Review of Systems - Constitutional Constitutional: As Per HPI, Anorexia, Weight Loss - EENT Eyes: absent: As Per HPI, Blind Spots, Blurred Vision, Change in Vision, Decreased Night Vision, Diplopia, Discharge, Dry Eye, Exophthalmos, Floaters, Irritation, Itchy Eyes, Loss of Peripheral Vision, Pain, Photophobia, Requires Corrective Lenses, Sees Flashes, Spots in Vision, Tunnel Vision, Other Visual Disturbances, Loss of Vision, Other Ears: absent: As Per HPI, Decreased Hearing, Ear Discharge, Ear Pain, Tinnitus, Abnormal Hearing, Disequilibrium, Dizziness, Other Nose/Mouth/Throat: absent: As Per HPI, Epistaxis, Nasal Congestion, Nasal Discharge, Nasal Obstruction, Nasal Trauma, Nose Pain, Post Nasal Drip, Sinus Pain, Sinus Pressure, Bleeding Gums, Change in Voice, Dental Pain, Dry Mouth, Dysphagia, Halitosis, Hoarsness, Lip Swelling, Mouth Lesions, Mouth Pain, Odynophagia, Sore Throat, Throat Swelling, Tongue Swelling, Facial Pain, Neck Pain, Neck Mass, Other - Cardiovascular Cardiovascular: As Per HPI - Respiratory Respiratory: absent: As Per HPI, Cough, Dyspnea, Hemoptysis, Dyspnea on Exertion , Wheezing, Snoring, Stridor, Pain on Inspiration, Chest Congestion, Excessive Mucous Production, Change in Mucous Color, Pain with Coughing, Other - Gastrointestinal Gastrointestinal: absent: As Per HPI, Abdominal Pain, Belching, Bloating, Change in Bowel Habits, Change in Stool Character, Coffee Ground Emesis, Constipation, Cramping, Diarrhea, Dyspepsia, Dysphagia, Early Satiety, Excessive Flatus, Fecal Incontinence, Heartburn, Hematemesis, Hematochezia, Loose Stools, Melena, Nausea, Odynophagia, Temesmus, Vomiting, Other - Genitourinary Genitourinary: As Per HPI - Musculoskeletal Musculoskeletal: As Per HPI - Integumentary Integumentary: As Per HPI, Dry Skin - Neurological Neurological: absent: As Per HPI, Abnormal Gait, Abnormal Hearing, Abnormal Movements, Abnormal Speech, Behavioral Changes, Burning Sensations, Confusion, Convulsions, Disequilibrium, Dizziness, Numbness, Focal Weakness, Frequent Falls , Headaches, Lack of Coordination, Loss of Vision, Memory Loss, Paresthesias, Radicular Pain, Restless Legs, Sensory Deficit, Syncope, Tingling, Tremor, Vertigo, Weakness, Other Visual Disturbances, Other - Psychiatric Psychiatric: absent: As Per HPI, Abnormal Sleep Pattern, Anhedonia, Anxiety, Auditory Hallucinations, Behavioral Changes, Change in Appetite, Change in Libido, Confusion, Depression, Difficulty Concentrating, Hallucinations, Homicidal Ideation, Hopelessness, Irritability, Memory Loss, Mood Swings, Panic Attacks, Paranoia, Suicidal Ideation, Visual Hallucinations, Tactile Hallucinations, Other - Endocrine Endocrine: absent: As Per HPI, Change in Body Appearance, Change in Libido, Cold Intolorance, Deepening of Voice, Excessive Sweating, Fatigue, Flushing, Heat Intolorance, Increase in Ring/Shoe/Hat Size, Palpitations, Polydipsia, Polyphagia, Polyuria, Other - Hematologic/Lymphatic Hematologic: As Per HPI Past Patient History - Past Medical History & Family History Past Medical History?: No - Past Social History Smoking Status: Never Smoked - MUSCULOSKELETAL/RHEUMATOLOGICAL Hx Falls: Yes - PSYCHIATRIC Hx Substance Use: No - SURGICAL HISTORY Hx Surgeries: No - ANESTHESIA Hx Anesthesia: No Hx Anesthesia Reactions: No Hx Malignant Hyperthermia: No Has any member of the family had a problem w/ anesthesia?: No Meds Allergies/Adverse Reactions: Allergies Allergy/AdvReac Type Severity Reaction Status Date / Time seasonal allergies Allergy Uncoded 06/09/17 16:45 - Medications Medications: Current Medications Calcium Acetate (Phoslo) 667 mg PO TID [facility] Last Admin: 06/13/17 13:22 Dose: 667 mg Famotidine (Pepcid) 20 mg IVP DAILY [facility] Last Admin: 06/13/17 10:43 Dose: 20 mg Sodium Bicarbonate 150 meq/ (Dextrose) 1,000 mls @ 50 mls/hr IV .Q20H [facility] Last Admin: 06/13/17 16:20 Dose: 50 mls/hr Vitamin B Complex/Vit C/Folic Acid (Nephro-Aleksandra) 1 tab PO 0800 [facility] Last Admin: 06/13/17 08:39 Dose: 1 tab Physical Exam - Constitutional Appears: Non-toxic, Cachectic, Chronically Ill - Head Exam Head Exam: NORMOCEPHALIC - Eye Exam Eye Exam: absent: Scleral icterus - ENT Exam ENT Exam: Mucous Membranes Dry, Normal External Ear Exam - Neck Exam Neck exam: Negative for: Lymphadenopathy - Respiratory Exam Respiratory Exam: Decreased Breath Sounds, Rales - Cardiovascular Exam Cardiovascular Exam: REGULAR RHYTHM, +S1, +S2 - GI/Abdominal Exam GI & Abdominal Exam: Diminished Bowel Sounds, Soft. absent: Tenderness - Rectal Exam Rectal Exam: Deferred - Exam Exam: NORMAL INSPECTION - Extremities Exam Extremities exam: Positive for: tenderness, pedal pulses present. Negative for : calf tenderness, pedal edema - Back Exam Back exam: absent: CVA tenderness (L), CVA tenderness (R) - Neurological Exam Neurological exam: Alert, CN II-XII Intact, Oriented x3, Reflexes Normal - Psychiatric Exam Psychiatric exam: Normal Mood - Skin Skin Exam: Dry Results - Vital Signs Recent Vital Signs: Last Vital Signs Temp 98.1 F 06/13/17 16:00 Pulse 88 06/13/17 16:00 Resp 18 06/13/17 16:00 BP 100/63 06/13/17 16:00 Pulse Ox 95 06/13/17 11:00 - Labs Result Diagrams: 06/13/17 05:59 06/13/17 05:59 Labs: Laboratory Results - last 24 hr 06/10/17 06/13/17 06/13/17 12:37 05:59 05:59 WBC 6.5 RBC 3.81 L Hgb 12.2 Hct 36.2 MCV 94.9 H MCH 31.9 H MCHC 33.7 RDW 19.3 H Plt Count 86 L MPV 10.6 Neut % (Auto) 73.5 Lymph % (Auto) 18.8 L [place] % (Auto) 6.3 Eos % (Auto) 1.0 Baso % (Auto) 0.4 Neut # 4.8 Lymph # 1.2 [place] # 0.4 Eos # 0.1 Baso # 0.0 Sodium 142 Potassium 3.7 Chloride 107 Carbon Dioxide 20 L Anion Gap 19 BUN 113 H* Creatinine 6.4 H Est GFR ( Amer) 10 Est GFR (Non-Af Amer) 9 Random Glucose 124 H Calcium 6.5 L Phosphorus 5.7 H Magnesium 1.7 Total Bilirubin 0.7 AST 18 ALT 24 Alkaline Phosphatase 69 Total Protein 5.9 L Albumin 2.1 L Globulin 3.9 Albumin/Globulin Ratio 0.51 0.5 L Jkycy-9-Uyklbaccd 5.3 Ezglt-4-Mcsilfeee 9.2 Beta Globulins 19.6 Gamma Globulins 32.4 Urine Albumin (PEP) 33.6 Ur Protein Fractions See note Assessment & Plan (1) Hepatitis C antibody positive in blood Status: Acute (2) Cachexia Status: Acute (3) Cardiomyopathy Status: Acute (4) ARF (acute renal failure) Status: Acute (5) Hyperkalemia Status: Acute (6) Metabolic acidosis Status: Acute (7) Symptomatic anemia Status: Acute - Assessment and Plan (Free Text) Assessment: renal failure cardiomyopathy - etiology to be determined Hep C 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 recc : heme Onc eval
[2017-06-13 19:00] LABS: INTRACELLULAR PARASITE NEGATIVE (NEGATIVE)
[2017-06-14 05:39] LABS: ABNORMAL PROTEIN BAND 1 0.27 g/dL (None Detected); BETA 1 GLOBULIN 0.3 g/dL (0.4-0.6); BETA 2 GLOBULIN 0.4 g/dL (0.2-0.5); GAMMA GLOBULIN 1.7 g/dL (0.8-1.7)
[2017-06-14 06:33] LABS: BASO % 0.5 % (0.0-2.0); EOS # 0.1 K/uL (0.0-0.7); EOS % 0.8 % (0.0-4.0); HEMATOCRIT 33.7 % (35.0-51.0); LYMPH # 1.2 K/uL (1.0-4.3); LYMPH % 15.7 % (20.0-40.0); MEAN CELL VOLUME 95.6 fL (80.0-94.0); MEAN CORPUSCULAR HEMOGLOBIN 31.5 pg (27.0-31.0); MEAN PLATELET VOLUME 11.5 fL (7.2-11.7); MONO # 0.4 K/uL (0.0-0.8); MONO % 5.7 % (0.0-10.0); NRBC % 0.1 % (0.0-2.0); RED CELL DISTRIBUTION WIDTH 19.2 % (11.5-14.5); WHITE BLOOD COUNT 7.8 K/uL (4.8-10.8)
[2017-06-14 07:05] LABS: ALB/GLOB RATIO 0.6 (1.0-2.1); BILIRUBIN,TOTAL 0.7 mg/dL (0.2-1.3); CALCIUM 6.2 mg/dl (8.6-10.4); MAGNESIUM 1.6 mg/dL (1.6-2.3); PHOSPHOROUS 4.7 mg/dL (2.5-4.5); POTASSIUM 4.1 mmol/L (3.6-5.2); TOTAL PROTEIN 5.7 g/dL (6.3-8.3)
--- NOTE | 2017-06-14 07:59 | PN ---
DATE: FOLLOWUP RENAL CONSULTATION LOCATION: In ICU, bed 10. REQUESTING PHYSICIAN: Dr. Akhil Wang. REASON FOR FOLLOWUP: Renal failure, metabolic acidosis, severe anemia and hydronephrosis and for further evaluation. SUBJECTIVE: Mr. 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 Patient was admitted with generalized weakness unable to ambulate and status post fall and patient was found to have elevated BUN and creatinine, severe anemia, hyperkalemia, metabolic acidosis, status post Beck catheter placed went for obstructive uropathy. The patient still has a Beck catheter bedside bag. Patient is not in acute distress. Denies any headache, dizziness. Denies any chest pain, palpitations. Denies any fever, cough or throat pain. No nausea, vomiting. Poor apatite. PHYSICAL EXAMINATION: GENERAL: Mr. Palmer is a 77 years old elderly, very cachectic thin build male. Not in acute distress. VITAL SIGNS: As follows; blood pressure 106/62, pulse 89, respiration 18, temperature 98.2, saturation 95%. Height is 5 feet 5 inches and weight is 112 pounds. HEENT: Pupils are normal and reactive to light and accommodation. Conjunctivae pink. Sclerae anicteric. Tongue is moist. Trachea is midline. LUNGS: Symmetric on both sides. Bilateral breath sounds not present in upper chest and decreased breath sounds at bases. CARDIOPULMONARY: [place] at the fifth intercostal space, midclavicular line. S1 and S2 audible. No murmur, no gallop. ABDOMEN: Scaphoid. Soft, tympanic. No guarding. No hepatosplenomegaly. PHYSICIAN CREDENTIALING SPECIALIST: The patient is alert, awake, oriented x2 to 3. Sensory and motor system is grossly within normal limits. EXTREMITIES: No cyanosis, no clubbing. Patient has 1+ edema in both lower extremities. CURRENT MEDICATIONS: Include as follows: Nephro-Aleksandra 1 tablet daily and Pepcid 20 mg daily, PhosLo 667 mg p.o. t.i.d. and IV fluids D5W with 3 amps of bicarb at 50 mL per hour. LABORATORY DATA: Includes as follows: As of 06/13/2017; WBC 6.5, hemoglobin 12.2, hematocrit is 36.2, and platelet 86. Sodium 142, potassium is 3.7, chloride 107, CO2 of 20, BUN is 113, creatinine is 6.4 and glucose is 124, calcium 6.5, phosphorus is 5.7, magnesium is 1.7, total bilirubin 0.7. AST 18, ALT 24, alkaline phosphatase 69, total protein 5.9, albumin is 2.1, and globulin is 3.9. HIV 1 and 2 antibody screening was negative and blood parasites smear is negative. Hepatitis B surface antigen is negative. Surface antibody is negative. Core antibody is negative. Hep C antibody is reactive. Urine immunofixation +ve . ALDAIR is negative and C3 is 71, C4 19.7 and the other reports echocardiogram as of 06/12/2017. IMPRESSION: Left ventricle is mildly dilated and left ventricular systolic function severely impaired and the ejection fraction is 10-15%. left atrial pressure is severely elevated. There is mild mitral regurgitation, mild aortic regurgitation and there is moderate right pleural effusion and moderate left pleural effusion. CT of the chest as of 06/12/2017 without contrast. Impression large bilateral pleural effusion. Complete right lower lobe atelectasis and subsegmental left lower lobe atelectasis right upper lobe infiltrates and patchy nonspecific left upper lobe opacities, SIDs bilateral hydronephrosis. IN SUMMARY: Mr. Palmer is a 77 years old elderly, male with a history of nephrolithiasis about 20-30 years ago was admitted as severe weakness and very cachectic and low H and H, high BUN and creatinine and obstructive uropathy, s/p Beck catheter and was admitted with BUN more then 150 and creatinine 10. A 24-hour urine output is about 2100 mL. 1. Renal failure, acute on chronic kidney disease secondary to obstructive uropathy. Etiology is not clear rule out benign prostatic hypertrophy was bladder tumor. Rule out involving the Trigone and renal function is somewhat improved from the day of admission. Serum creatinine is improved from 10.2 to 6.4 today. 2. Metabolic acidosis improving the sodium bicarbonate. Now bicarb is 20, we will discontinue sodium bicarbonate IV and we will put him on p.o. bicarbonate 650 three times a day. 3. Secondary hyperparathyroidism, we will add calcitriol 0.25 mcg daily and rule out multiple myeloma. 4. Bilateral hydronephrosis, hydroureters. Patient will need cystoscopy eventually and biopsy may need ureteral stents placement for hydronephrosis. 5. Cardiomyopathy. 6. Bilateral pleural effusion. Now patient is still thinking about the dialysis. At this time, patient will benefit from the hemodialysis and also follow up with the hepatitis C viral RNA by PCR. Overall prognosis is poor. Thank you for allowing me to participate in your patient's care. Ruthann Duarte MD MTDD
[2017-06-14] MEDS: Multivitamin Vitamin B Complex (Nephro-Vite) Tab PO SCH (08:18)
[2017-06-14] MEDS: Sodium Bicarbonate 8.4% 150 MEQ in Dextrose 5% In Water 850 ML IV SCH (09:07)
[2017-06-14] MEDS ORDERED: Albumin Human 25% (12.5 gm/50 ml) IV ONE (10:16)
--- NOTE | 2017-06-14 11:00 | CP.PCM.CON ---
History of Present Illness - History of Present Illness History of Present Illness: Claudia Hernandez, PGY1, Consult Note for Dr. Aparicio: 77M with no significant PMH, presented for generalized weakness x loss of appetite 1 year. Pt also complained of lightheadedness, fall, and swelling of LE. Pt denies cp, diaphoresis, n/v/d, LOC. Pt has not had similar symptoms before. In ED, pt found be severely anemic Hgb 5.8, hyerpkalemic K 6, metabolic acidotic 11, elevated bun/cr 152/10.4, trops negx2, ck mbnegx1, probnp 75,900. Pt found to have bladder tumor and + Hep C serology. Echocardiogram showed EF 10 -15%, severely dilated L atrium and L ventricle systolic fxn severely impaired, midly dilated L ventricle. Cardiology consulted for management of cardiomyopathy. 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 denies IVDA, non-smoker, no ETOH Review of Systems - Constitutional Constitutional: absent: Chills, Fever - EENT Eyes: absent: Change in Vision - Cardiovascular Cardiovascular: Dyspnea on Exertion, Edema, Leg Edema, Lightheadedness, Pedal Edema - Gastrointestinal Gastrointestinal: absent: Nausea, Vomiting - Integumentary Integumentary: absent: Rash, Jaundice - Neurological Neurological: Weakness. absent: Abnormal Speech, Dizziness, Focal Weakness, Headaches, Tremor - Psychiatric Psychiatric: absent: Memory Loss - Endocrine Endocrine: Fatigue. absent: Palpitations - Hematologic/Lymphatic Hematologic: absent: Easy Bleeding, Easy Bruising Past Patient History - Past Medical History & Family History Past Medical History?: No - Past Social History Smoking Status: Never Smoked - MUSCULOSKELETAL/RHEUMATOLOGICAL Hx Falls: Yes - PSYCHIATRIC Hx Substance Use: No - SURGICAL HISTORY Hx Surgeries: No - ANESTHESIA Hx Anesthesia: No Hx Anesthesia Reactions: No Hx Malignant Hyperthermia: No Has any member of the family had a problem w/ anesthesia?: No Meds Allergies/Adverse Reactions: Allergies Allergy/AdvReac Type Severity Reaction Status Date / Time seasonal allergies Allergy Uncoded 06/09/17 16:45 - Medications Medications: Current Medications Calcitriol (Rocaltrol) 0.25 mcg PO DAILY [facility] Last Admin: 06/14/17 09:07 Dose: 0.25 mcg Calcium Acetate (Phoslo) 667 mg PO TID [facility] Last Admin: 06/14/17 09:07 Dose: 667 mg Famotidine (Pepcid) 20 mg IVP DAILY [facility] Last Admin: 06/14/17 09:06 Dose: 20 mg Vitamin B Complex/Vit C/Folic Acid (Nephro-Aleksandra) 1 tab PO 0800 [facility] Last Admin: 06/14/17 08:18 Dose: 1 tab Physical Exam - Constitutional Appears: No Acute Distress - Head Exam Head Exam: ATRAUMATIC, NORMOCEPHALIC - Eye Exam Eye Exam: PERRL - ENT Exam ENT Exam: Mucous Membranes Moist - Respiratory Exam Respiratory Exam: Decreased Breath Sounds, Rales - Cardiovascular Exam Cardiovascular Exam: RRR, +S1, +S2 - GI/Abdominal Exam GI & Abdominal Exam: Normal Bowel Sounds, Soft. absent: Tenderness - Extremities Exam Extremities exam: Negative for: pedal edema - Neurological Exam Neurological exam: Alert, Oriented x3 - Psychiatric Exam Psychiatric exam: Agitated - Skin Skin Exam: Dry, Warm Results - Vital Signs Recent Vital Signs: Last Vital Signs Temp 98.4 F 06/14/17 08:00 Pulse 96 H 06/14/17 10:00 Resp 15 06/14/17 10:00 BP 108/69 06/14/17 10:00 Pulse Ox 96 06/14/17 10:00 - Labs Result Diagrams: 06/14/17 06:27 06/14/17 06:27 Labs: Laboratory Results - last 24 hr 06/09/17 06/09/17 06/10/17 20:44 23:02 12:37 WBC RBC Hgb Hct MCV MCH MCHC RDW Plt Count MPV Neut % (Auto) Lymph % (Auto) Griggs % (Auto) Eos % (Auto) Baso % (Auto) Neut # Lymph # Griggs # Eos # Baso # Sodium Potassium Chloride Carbon Dioxide Anion Gap BUN Creatinine Est GFR ( Amer) Est GFR (Non-Af Amer) Random Glucose Calcium Phosphorus Magnesium Total Bilirubin AST ALT Alkaline Phosphatase Ammonia Total Protein Albumin Albumin (PEP) 2.1 L Globulin Albumin/Globulin Ratio Mpkmj-6-Mmndyblwq 0.3 Suafc-8-Sjlkenipv 0.4 L Kciy-0-Ygkgfwcg 0.3 L Tbvo-5-Izulkxpp 0.4 Gamma Globulins 1.7 Abnorm Protein Band 1 0.27 H Abnorm Protein Band 2 TEST NOT PERFORMED Abnorm Protein Band 3 TEST NOT PERFORMED Alpha Fetoprotein JANES & SPEP Interp See note Urine Immunofixation Detected H ALDAIR 6 Profile Negative HIV 1&2 Antibody Screen Blood Parasites Smear 06/13/17 06/13/17 06/14/17 17:50 17:50 06:27 WBC 7.8 RBC 3.53 L Hgb 11.1 L Hct 33.7 L MCV 95.6 H MCH 31.5 H MCHC 33.0 RDW 19.2 H Plt Count 97 L MPV 11.5 Neut % (Auto) 77.3 H Lymph % (Auto) 15.7 L Griggs % (Auto) 5.7 Eos % (Auto) 0.8 Baso % (Auto) 0.5 Neut # 6.0 Lymph # 1.2 Griggs # 0.4 Eos # 0.1 Baso # 0.0 Sodium Potassium Chloride Carbon Dioxide Anion Gap BUN Creatinine Est GFR ( Amer) Est GFR (Non-Af Amer) Random Glucose Calcium Phosphorus Magnesium Total Bilirubin AST ALT Alkaline Phosphatase Ammonia Total Protein Albumin Albumin (PEP) Globulin Albumin/Globulin Ratio Tvbcq-6-Qevsxeebw Euujh-5-Wulbvbaef Muag-4-Ookmswjf Iqio-5-Wkjsgrva Gamma Globulins Abnorm Protein Band 1 Abnorm Protein Band 2 Abnorm Protein Band 3 Alpha Fetoprotein JANES & SPEP Interp Urine Immunofixation ALDAIR 6 Profile HIV 1&2 Antibody Screen Negative Blood Parasites Smear Negative 06/14/17 06/14/17 06/14/17 06:27 07:23 07:23 WBC RBC Hgb Hct MCV MCH MCHC RDW Plt Count MPV Neut % (Auto) Lymph % (Auto) Griggs % (Auto) Eos % (Auto) Baso % (Auto) Neut # Lymph # Griggs # Eos # Baso # Sodium 139 Potassium 4.1 Chloride 103 Carbon Dioxide 25 Anion Gap 15 BUN 108 H* Creatinine 6.0 H Est GFR ( Amer) 11 Est GFR (Non-Af Amer) 9 Random Glucose 110 Calcium 6.2 L Phosphorus 4.7 H Magnesium 1.6 Total Bilirubin 0.7 AST 49 ALT 37 Alkaline Phosphatase 68 Ammonia 22 Total Protein 5.7 L Albumin 2.2 L Albumin (PEP) Globulin 3.6 Albumin/Globulin Ratio 0.6 L Jxcbg-0-Kevzmsipq Slekr-7-Xrdscrokv Zrxg-7-Aooyfnbw Okzq-5-Vuvpeozd Gamma Globulins Abnorm Protein Band 1 Abnorm Protein Band 2 Abnorm Protein Band 3 Alpha Fetoprotein 1.9 JANES & SPEP Interp Urine Immunofixation ALDAIR 6 Profile HIV 1&2 Antibody Screen Blood Parasites Smear Assessment & Plan - Assessment and Plan (Free Text) Assessment: 77M with no significant PMH, admitted for sympotamtic anemia, GLADYS, hyperkalemia , severe metabolic acidosis. Found to have bladder mass, + Hep C serology, advanced cachexia, systolic CHF, cardiomyopathy of unclear etiology. Cardiology consulted for management of systolic CHF and cardiomyopathy. Plan: Cardiomyopathy 2/2 likely viral etiology vs ischemic (unlikely): - Echo 06/12 shows EF 10-15%, mildly dilated L ventrcile. L ventricle systolic function severely imparied. Transmitral Doppler flow pattern: Grade II pseduonormal filling dynamics. L atrial pressure severely dilated. Mild AR. Mild MR. Moderate right and left pleural effusions. - EKG shows HR 94, NSR, QTc mildly prolonged 480 ms, T wave inversions V5, V6, I , II. - Will start low dose BB. hold because BP on low side currently. New onset systolic HF: - Echo 06/12 shows EF 10-15%, mildly dilated L ventrcile. L ventricle systolic function severely imparied. Transmitral Doppler flow pattern: Grade II pseduonormal filling dynamics. L atrial pressure severely dilated. Mild AR. Mild MR. Moderate right and left pleural effusions. - EKG shows HR 94, NSR, QTc mildly prolonged 480 ms, T wave inversions V5, V6, I , II. - Trops negx2, ckmb negx1, CK 62->50. BNP 75,900. - Can start on low dose beta esperanza (hold for now since BP on low side). Not a candidate for life vest, ICD, ADAN-i (due to poor renal function), or cardiac cath currently. - Once renal function improves, can reconsider cardiac cath. Acute renal failure 2/2 likely bladder tumor (obstructive uropathy): - BUN/Cr 152/10.4 on admission, hyperkalemia K 6, metabolic acidosis HCO3 11, Cl 116, Hgb 5.8. - Improving with sanon, draining adequate urine. - Cont management per primary team and Dr. Duarte. Discussed with attending, Dr. Markus Hernandez, PGY1 - Date & Time Date: 06/14/17 Time: 11:02
--- NOTE | 2017-06-14 14:00 | CT ---
CT chest, abdomen, and pelvis without IV contrast Indication: Pleural effusion, hydronephrosis Technique: Contiguous axial images of the chest, abdomen, and pelvis without oral or IV contrast. Coronal and Sagittal reformats generated and reviewed. This CT exam was performed using 1 or more of the falling dose reduction techniques: Automated exposure control, adjustment of the MAA and/or kV according to patient size, and/or use of iterative reconstruction technique. Radiation dose: Total exam DLP = 516.10 MGy-cm. Comparison: CT chest without contrast performed 06/12/17; CT of the abdomen and pelvis without oral or IV contrast performed 06/11/17 Findings: Cardiomegaly. Dense coronary artery calcifications. Small pericardial effusion. Patchy right upper lobe and left upper lobe infiltrates. Large bilateral pleural effusions and associated consolidations. No pneumothorax. Nodular hepatic contour. Low-density lesions throughout the liver, too small to characterize. 9 x 14 mm low-density lesion in the lateral hepatic dome, nonspecific. The gallbladder appears unremarkable. Moderate to severe hydronephrosis and proximal hydroureter. No obstructing calculi identified. The adrenal glands are not well visualized. The spleen appears diminutive, otherwise unremarkable. 8 mm probable splenule. Pancreas appears unremarkable. The stomach is nondistended. Lack of oral contrast limits evaluation for bowel pathology. Moderate constipation. No evidence of small-bowel obstruction. There is no definite free air. Dense atherosclerotic calcification of the aorta and branches. Thick-walled irregular urinary bladder. Beck catheter. Air within the urinary bladder. Masslike density re-identified within the dependent portion of the urinary bladder. Anasarca. Bilateral gynecomastia. Ascites. Degenerative changes of the spine. Impression: Cardiomegaly. Dense coronary artery calcifications. Small pericardial effusion. Patchy right upper lobe and left upper lobe infiltrates. Large bilateral pleural effusions and associated consolidations. No pneumothorax. Nodular hepatic contour. Low-density lesions throughout the liver, too small to characterize. 9 x 14 mm low-density lesion in the lateral hepatic dome, nonspecific. Moderate to severe hydronephrosis and proximal hydroureter. Moderate constipation. Thick-walled irregular urinary bladder. Beck catheter. Air within the urinary bladder. Masslike density re-identified within the dependent portion of the urinary bladder. Anasarca. Bilateral gynecomastia. Ascites.
--- NOTE | 2017-06-14 14:02 | CP.PCM.PN ---
Subjective - Date & Time of Evaluation Date of Evaluation: 06/14/17 Time of Evaluation: 14:01 - Subjective Subjective: CHIEF COMPLAINTS TODAY : FEELS BETTER AT REST TOO WEAK TO SIT IN CHAIR REFUSING DIALYSIS ROS. HEENT : N. Resp : No cough, wheezing ,pleuritic CP ,or hemoptysis Cardio : No anginal CP, PND, orthopnea, palpitation GI : No abd.pain, n/v ,diarrhea or GI bleeding . [employer] : No headache, vertigo, focal deficit. Musculoskel : No joint swelling , Derm : No rash Psych : Normal affect. Ext : POS swelling ,calf pain PE. Pt. is alert awake in no distress. V.S As noted in the chart Head ,ear nose,throat and eyes : Normal. Neck : Supple with normal carotids. Lungs: Clear air entry. Heart : S1 & S2 normal with S4. No murmur. Abd : Soft non tender with normal bowel sounds. Neuro : Moves all ext. with no localized deficit. Ext : edema with intact pulses.Non tender calves Derm : No rashes or decubitus ulcer. LABS/RADIOLOGY: H/H 11.6, CR 6. CT OF ABD NOTED ASSESSMENT/PLAN : EVAL TO COMMENT ON HYDRO AND BLADDER PATHOLOGY ID/CARD ON BOARD Objective - Vital Signs/Intake and Output Vital Signs (last 24 hours): Temp Pulse Resp BP Pulse Ox 98 F 95 H 21 107/64 100 06/14/17 12:00 06/14/17 13:00 06/14/17 13:00 06/14/17 13:00 06/14/17 13:00 Intake and Output: 06/14/17 06/14/17 11:59 23:59 Intake Total 700 250 Output Total 1071 255 Balance -371 -5 - Medications Medications: Current Medications Calcitriol (Rocaltrol) 0.25 mcg PO DAILY [facility] Last Admin: 06/14/17 09:07 Dose: 0.25 mcg Calcium Acetate (Phoslo) 667 mg PO TID [facility] Last Admin: 06/14/17 13:22 Dose: 667 mg Famotidine (Pepcid) 20 mg IVP DAILY [facility] Last Admin: 06/14/17 09:06 Dose: 20 mg Vitamin B Complex/Vit C/Folic Acid (Nephro-Aleksandra) 1 tab PO 0800 [facility] Last Admin: 06/14/17 08:18 Dose: 1 tab - Labs Labs: 06/14/17 06:27 06/14/17 06:27 PT 13.0 SECONDS (9.7-12.2) H 06/09/17 17:28 INR 1.2 06/09/17 17:28 APTT 33 SECONDS (21-34) 06/09/17 17:28
--- NOTE | 2017-06-14 17:32 | CP.CCUPN ---
<Linda Toth - Last Filed: 06/14/17 17:29> CCU Subjective - Physician Review Subjective (Free Text): Patient was seen and examined at bedside in the morning. Patient is alert and reports he feels the same as yesterday. Patient still feels weak. Patient denies having chest pain, shortness of breath, abdominal pain, nausea, vomiting , fevers, and headaches. 06/14/17 17:29 CCU Objective - Vital Signs / Intake & Output Vital Signs (Last 4 hours): Vital Signs Temp Pulse Resp BP Pulse Ox 06/14/17 17:00 90 18 101/60 99 06/14/17 16:01 91 H 17 100/58 L 99 06/14/17 16:00 97.6 F 89 19 100 06/14/17 15:00 89 19 95/54 L 99 06/14/17 14:00 102 H 17 113/70 100 Intake and Output (Last 8hrs): Intake & Output 06/14/17 06/14/17 06/14/17 06:59 14:59 22:59 Intake Total 400 600 0 Output Total 710 756 200 Balance -310 -156 -200 Weight 108 lb 6 oz Intake: Intake, IV Amount 400 200 Left Forearm 400 200 Oral 400 0 Output: Urine 710 756 200 Urethral (Beck) 710 756 200 Other: # Bowel Movements 1 0 - Physical Exam Head: Positive for: Atraumatic, Normocephalic Pupils: Positive for: PERRL Extroacular Muscles: Positive for: EOMI Conjunctiva: Negative for: Icteric Mouth: Positive for: Dry Respiratory/Chest: Positive for: Clear to Auscultation, Decreased Breath Sounds. Negative for: Respiratory Distress, Accessory Muscle Use, Wheezes, Rales, Retracting, Rhonchi Cardiovascular: Positive for: Regular Rate and Rhythm, Normal S1, S2, Peripheal Pulses Present. Negative for: Murmurs, Irregular Rhythm, Tachycardic, Bradycardic Abdomen: Positive for: Normal Bowel Sounds. Negative for: Tenderness, Distention, Rebound, Guarding Upper Extremity: Negative for: Edema, Swelling Lower Extremity: Positive for: Edema (improving), Swelling. Negative for: Normal Inspection Neurological: Positive for: Speech Normal Skin: Positive for: Warm, Dry, Normal Color, Other (LE edema and chronic skin changes) Psychiatric: Positive for: Alert, Oriented x 3, Normal Insight, Lethargic - Medications Active Medications: Active Medications Generic Name Dose Route Start Last Admin Trade Name Wanda PRN Reason Stop Dose Admin Calcitriol 0.25 mcg 06/14/17 10:00 06/14/17 09:07 Rocaltrol PO 0.25 mcg DAILY TANI Administration Calcium Acetate 667 mg 06/10/17 18:00 06/14/17 17:20 Phoslo PO 667 mg TID TANI Administration Famotidine 20 mg 06/15/17 10:00 Pepcid PO DAILY [facility] Vitamin B Complex/Vit C/Folic Acid 1 tab 06/11/17 08:00 06/14/17 08:18 Nephro-Aleksandra PO 1 tab 0800 TANI Administration - Patient Studies Lab Studies: Microbiology Studies 06/09/17 21:00 Blood Culture - Preliminary Blood-Venous NO GROWTH AFTER 4 DAYS 06/09/17 20:48 Blood Culture - Preliminary Blood-Venous NO GROWTH AFTER 4 DAYS Lab Studies 06/14/17 06/14/17 06/14/17 Range/Units 07:23 07:23 07:23 WBC (4.8-10.8) K/uL RBC (4.40-5.90) Mil/uL Hgb (12.0-18.0) g/dL Hct (35.0-51.0) % MCV (80.0-94.0) fL MCH (27.0-31.0) pg MCHC (33.0-37.0) g/dL RDW (11.5-14.5) % Plt Count (130-400) K/uL MPV (7.2-11.7) fL Neut % (Auto) (50.0-75.0) % Lymph % (Auto) (20.0-40.0) % [place] % (Auto) (0.0-10.0) % Eos % (Auto) (0.0-4.0) % Baso % (Auto) (0.0-2.0) % Neut # (1.8-7.0) K/uL Lymph # (1.0-4.3) K/uL [place] # (0.0-0.8) K/uL Eos # (0.0-0.7) K/uL Baso # (0.0-0.2) K/uL Sodium (132-148) mmol/L Potassium (3.6-5.2) mmol/L Chloride (98-107) mmol/L Carbon Dioxide (22-30) mmol/L Anion Gap (10-20) BUN (9-20) mg/dL Creatinine (0.8-1.5) MG/DL Est GFR ( Amer) Est GFR (Non-Af Amer) Random Glucose (75-110) mg/dL Calcium (8.6-10.4) mg/dl Phosphorus (2.5-4.5) mg/dL Magnesium (1.6-2.3) mg/dL Total Bilirubin (0.2-1.3) mg/dL AST (17-59) U/L ALT (21-72) U/L Alkaline Phosphatase (38-126) U/L Ammonia 22 (9-33) umol/L Total Protein (6.3-8.3) g/dL Albumin (3.5-5.0) g/dL Albumin (PEP) (3.8-4.8) g/dL Globulin (2.2-3.9) gm/dL Albumin/Globulin Ratio (1.0-2.1) Hhaev-2-Fqezledre (0.2-0.3) g/dL Jvjse-2-Snorulwid (0.5-0.9) g/dL Bvzo-2-Sitrzgbb (0.4-0.6) g/dL Xdls-1-Ghbgxiye (0.2-0.5) g/dL Gamma Globulins (0.8-1.7) g/dL Abnorm Protein Band 1 (None Detected) g/dL Abnorm Protein Band 2 Abnorm Protein Band 3 Alpha Fetoprotein 1.9 (0.0-7.5) ng/mL JANES & SPEP Interp Urine Immunofixation (Not Detected) ALDAIR 6 Profile (NEGATIVE) RPR Nonreactive (NONREACTIVE) HIV 1&2 Antibody Screen (NEGATIVE) Blood Parasites Smear (NEGATIVE) 06/14/17 06/14/17 06/13/17 Range/Units 06:27 06:27 17:50 WBC 7.8 (4.8-10.8) K/uL RBC 3.53 L (4.40-5.90) Mil/uL Hgb 11.1 L (12.0-18.0) g/dL Hct 33.7 L (35.0-51.0) % MCV 95.6 H (80.0-94.0) fL MCH 31.5 H (27.0-31.0) pg MCHC 33.0 (33.0-37.0) g/dL RDW 19.2 H (11.5-14.5) % Plt Count 97 L (130-400) K/uL MPV 11.5 (7.2-11.7) fL Neut % (Auto) 77.3 H (50.0-75.0) % Lymph % (Auto) 15.7 L (20.0-40.0) % [place] % (Auto) 5.7 (0.0-10.0) % Eos % (Auto) 0.8 (0.0-4.0) % Baso % (Auto) 0.5 (0.0-2.0) % Neut # 6.0 (1.8-7.0) K/uL Lymph # 1.2 (1.0-4.3) K/uL [place] # 0.4 (0.0-0.8) K/uL Eos # 0.1 (0.0-0.7) K/uL Baso # 0.0 (0.0-0.2) K/uL Sodium 139 (132-148) mmol/L Potassium 4.1 (3.6-5.2) mmol/L Chloride 103 (98-107) mmol/L Carbon Dioxide 25 (22-30) mmol/L Anion Gap 15 (10-20) BUN 108 H* (9-20) mg/dL Creatinine 6.0 H (0.8-1.5) MG/DL Est GFR ( Amer) 11 Est GFR (Non-Af Amer) 9 Random Glucose 110 (75-110) mg/dL Calcium 6.2 L (8.6-10.4) mg/dl Phosphorus 4.7 H (2.5-4.5) mg/dL Magnesium 1.6 (1.6-2.3) mg/dL Total Bilirubin 0.7 (0.2-1.3) mg/dL AST 49 (17-59) U/L ALT 37 (21-72) U/L Alkaline Phosphatase 68 (38-126) U/L Ammonia (9-33) umol/L Total Protein 5.7 L (6.3-8.3) g/dL Albumin 2.2 L (3.5-5.0) g/dL Albumin (PEP) (3.8-4.8) g/dL Globulin 3.6 (2.2-3.9) gm/dL Albumin/Globulin Ratio 0.6 L (1.0-2.1) Htwtn-4-Tffvaterm (0.2-0.3) g/dL Ikwyk-1-Halswqmbj (0.5-0.9) g/dL Tuxs-4-Qsmdqixb (0.4-0.6) g/dL Bard-8-Icpvszot (0.2-0.5) g/dL Gamma Globulins (0.8-1.7) g/dL Abnorm Protein Band 1 (None Detected) g/dL Abnorm Protein Band 2 Abnorm Protein Band 3 Alpha Fetoprotein (0.0-7.5) ng/mL JANES & SPEP Interp Urine Immunofixation (Not Detected) ALDAIR 6 Profile (NEGATIVE) RPR (NONREACTIVE) HIV 1&2 Antibody Screen (NEGATIVE) Blood Parasites Smear Negative (NEGATIVE) 06/13/17 06/10/17 06/09/17 Range/Units 17:50 12:37 23:02 WBC (4.8-10.8) K/uL RBC (4.40-5.90) Mil/uL Hgb (12.0-18.0) g/dL Hct (35.0-51.0) % MCV (80.0-94.0) fL MCH (27.0-31.0) pg MCHC (33.0-37.0) g/dL RDW (11.5-14.5) % Plt Count (130-400) K/uL MPV (7.2-11.7) fL Neut % (Auto) (50.0-75.0) % Lymph % (Auto) (20.0-40.0) % [place] % (Auto) (0.0-10.0) % Eos % (Auto) (0.0-4.0) % Baso % (Auto) (0.0-2.0) % Neut # (1.8-7.0) K/uL Lymph # (1.0-4.3) K/uL [place] # (0.0-0.8) K/uL Eos # (0.0-0.7) K/uL Baso # (0.0-0.2) K/uL Sodium (132-148) mmol/L Potassium (3.6-5.2) mmol/L Chloride (98-107) mmol/L Carbon Dioxide (22-30) mmol/L Anion Gap (10-20) BUN (9-20) mg/dL Creatinine (0.8-1.5) MG/DL Est GFR ( Amer) Est GFR (Non-Af Amer) Random Glucose (75-110) mg/dL Calcium (8.6-10.4) mg/dl Phosphorus (2.5-4.5) mg/dL Magnesium (1.6-2.3) mg/dL Total Bilirubin (0.2-1.3) mg/dL AST (17-59) U/L ALT (21-72) U/L Alkaline Phosphatase (38-126) U/L Ammonia (9-33) umol/L Total Protein (6.3-8.3) g/dL Albumin (3.5-5.0) g/dL Albumin (PEP) (3.8-4.8) g/dL Globulin (2.2-3.9) gm/dL Albumin/Globulin Ratio (1.0-2.1) Tljez-6-Thagryyjc (0.2-0.3) g/dL Kwxkw-7-Qvwhzpizj (0.5-0.9) g/dL Cnqq-0-Xjorshqa (0.4-0.6) g/dL Wqzc-9-Fwapxwxm (0.2-0.5) g/dL Gamma Globulins (0.8-1.7) g/dL Abnorm Protein Band 1 (None Detected) g/dL Abnorm Protein Band 2 Abnorm Protein Band 3 Alpha Fetoprotein (0.0-7.5) ng/mL JANES & SPEP Interp Urine Immunofixation Detected H (Not Detected) ALDAIR 6 Profile Negative (NEGATIVE) RPR (NONREACTIVE) HIV 1&2 Antibody Screen Negative (NEGATIVE) Blood Parasites Smear (NEGATIVE) 06/09/17 Range/Units 20:44 WBC (4.8-10.8) K/uL RBC (4.40-5.90) Mil/uL Hgb (12.0-18.0) g/dL Hct (35.0-51.0) % MCV (80.0-94.0) fL MCH (27.0-31.0) pg MCHC (33.0-37.0) g/dL RDW (11.5-14.5) % Plt Count (130-400) K/uL MPV (7.2-11.7) fL Neut % (Auto) (50.0-75.0) % Lymph % (Auto) (20.0-40.0) % [place] % (Auto) (0.0-10.0) % Eos % (Auto) (0.0-4.0) % Baso % (Auto) (0.0-2.0) % Neut # (1.8-7.0) K/uL Lymph # (1.0-4.3) K/uL [place] # (0.0-0.8) K/uL Eos # (0.0-0.7) K/uL Baso # (0.0-0.2) K/uL Sodium (132-148) mmol/L Potassium (3.6-5.2) mmol/L Chloride (98-107) mmol/L Carbon Dioxide (22-30) mmol/L Anion Gap (10-20) BUN (9-20) mg/dL Creatinine (0.8-1.5) MG/DL Est GFR ( Amer) Est GFR (Non-Af Amer) Random Glucose (75-110) mg/dL Calcium (8.6-10.4) mg/dl Phosphorus (2.5-4.5) mg/dL Magnesium (1.6-2.3) mg/dL Total Bilirubin (0.2-1.3) mg/dL AST (17-59) U/L ALT (21-72) U/L Alkaline Phosphatase (38-126) U/L Ammonia (9-33) umol/L Total Protein (6.3-8.3) g/dL Albumin (3.5-5.0) g/dL Albumin (PEP) 2.1 L (3.8-4.8) g/dL Globulin (2.2-3.9) gm/dL Albumin/Globulin Ratio (1.0-2.1) Yhocp-6-Lxyjtmtow 0.3 (0.2-0.3) g/dL Ewuiy-4-Vtmticiut 0.4 L (0.5-0.9) g/dL Alzp-3-Simlcorn 0.3 L (0.4-0.6) g/dL Qbey-1-Cvmdajpi 0.4 (0.2-0.5) g/dL Gamma Globulins 1.7 (0.8-1.7) g/dL Abnorm Protein Band 1 0.27 H (None Detected) g/dL Abnorm Protein Band 2 TEST NOT PERFORMED Abnorm Protein Band 3 TEST NOT PERFORMED Alpha Fetoprotein (0.0-7.5) ng/mL JANES & SPEP Interp See note Urine Immunofixation (Not Detected) ALDAIR 6 Profile (NEGATIVE) RPR (NONREACTIVE) HIV 1&2 Antibody Screen (NEGATIVE) Blood Parasites Smear (NEGATIVE) Laboratory Results - last 24 hr 06/09/17 06/09/17 06/10/17 20:44 23:02 12:37 WBC RBC Hgb Hct MCV MCH MCHC RDW Plt Count MPV Neut % (Auto) Lymph % (Auto) [place] % (Auto) Eos % (Auto) Baso % (Auto) Neut # Lymph # [place] # Eos # Baso # Sodium Potassium Chloride Carbon Dioxide Anion Gap BUN Creatinine Est GFR ( Amer) Est GFR (Non-Af Amer) Random Glucose Calcium Phosphorus Magnesium Total Bilirubin AST ALT Alkaline Phosphatase Ammonia Total Protein Albumin Albumin (PEP) 2.1 L Globulin Albumin/Globulin Ratio Kzsou-5-Xhvybgacl 0.3 Mkofd-6-Qcyyfqzqz 0.4 L Iajy-6-Byfhsseu 0.3 L Gvvj-9-Lduqpidp 0.4 Gamma Globulins 1.7 Abnorm Protein Band 1 0.27 H Abnorm Protein Band 2 TEST NOT PERFORMED Abnorm Protein Band 3 TEST NOT PERFORMED Alpha Fetoprotein JANES & SPEP Interp See note Urine Immunofixation Detected H ALDAIR 6 Profile Negative RPR HIV 1&2 Antibody Screen Blood Parasites Smear 06/13/17 06/13/17 06/14/17 17:50 17:50 06:27 WBC 7.8 RBC 3.53 L Hgb 11.1 L Hct 33.7 L MCV 95.6 H MCH 31.5 H MCHC 33.0 RDW 19.2 H Plt Count 97 L MPV 11.5 Neut % (Auto) 77.3 H Lymph % (Auto) 15.7 L [place] % (Auto) 5.7 Eos % (Auto) 0.8 Baso % (Auto) 0.5 Neut # 6.0 Lymph # 1.2 [place] # 0.4 Eos # 0.1 Baso # 0.0 Sodium Potassium Chloride Carbon Dioxide Anion Gap BUN Creatinine Est GFR ( Amer) Est GFR (Non-Af Amer) Random Glucose Calcium Phosphorus Magnesium Total Bilirubin AST ALT Alkaline Phosphatase Ammonia Total Protein Albumin Albumin (PEP) Globulin Albumin/Globulin Ratio Jkysx-3-Qckwdymcz Uaxyk-8-Szdjpuemx Snpd-1-Vymgmbyp Sxgc-8-Jgctiuck Gamma Globulins Abnorm Protein Band 1 Abnorm Protein Band 2 Abnorm Protein Band 3 Alpha Fetoprotein JANES & SPEP Interp Urine Immunofixation ALDAIR 6 Profile RPR HIV 1&2 Antibody Screen Negative Blood Parasites Smear Negative 06/14/17 06/14/17 06/14/17 06:27 07:23 07:23 WBC RBC Hgb Hct MCV MCH MCHC RDW Plt Count MPV Neut % (Auto) Lymph % (Auto) [place] % (Auto) Eos % (Auto) Baso % (Auto) Neut # Lymph # [place] # Eos # Baso # Sodium 139 Potassium 4.1 Chloride 103 Carbon Dioxide 25 Anion Gap 15 BUN 108 H* Creatinine 6.0 H Est GFR ( Amer) 11 Est GFR (Non-Af Amer) 9 Random Glucose 110 Calcium 6.2 L Phosphorus 4.7 H Magnesium 1.6 Total Bilirubin 0.7 AST 49 ALT 37 Alkaline Phosphatase 68 Ammonia 22 Total Protein 5.7 L Albumin 2.2 L Albumin (PEP) Globulin 3.6 Albumin/Globulin Ratio 0.6 L Ixllq-3-Khnerbgsh Agcjl-4-Avucuvbux Pihk-1-Vyaffhgm Dqmo-5-Ulmqtlup Gamma Globulins Abnorm Protein Band 1 Abnorm Protein Band 2 Abnorm Protein Band 3 Alpha Fetoprotein 1.9 JANES & SPEP Interp Urine Immunofixation ALDAIR 6 Profile RPR HIV 1&2 Antibody Screen Blood Parasites Smear 06/14/17 07:23 WBC RBC Hgb Hct MCV MCH MCHC RDW Plt Count MPV Neut % (Auto) Lymph % (Auto) [place] % (Auto) Eos % (Auto) Baso % (Auto) Neut # Lymph # [place] # Eos # Baso # Sodium Potassium Chloride Carbon Dioxide Anion Gap BUN Creatinine Est GFR ( Amer) Est GFR (Non-Af Amer) Random Glucose Calcium Phosphorus Magnesium Total Bilirubin AST ALT Alkaline Phosphatase Ammonia Total Protein Albumin Albumin (PEP) Globulin Albumin/Globulin Ratio Ujvhu-4-Sufjlwhgn Nuzxv-2-Gjuepidkg Pbie-2-Tyhykxoj Exzz-4-Auellyek Gamma Globulins Abnorm Protein Band 1 Abnorm Protein Band 2 Abnorm Protein Band 3 Alpha Fetoprotein JANES & SPEP Interp Urine Immunofixation ALDAIR 6 Profile RPR Nonreactive HIV 1&2 Antibody Screen Blood Parasites Smear Fingerstick Blood Sugar Results: 109 Review of Systems - Constitutional Constitutional: absent: Fever - EENT Ears: absent: Dizziness - Cardiovascular Cardiovascular: Leg Edema. absent: Chest Pain, Dyspnea - Respiratory Respiratory: absent: Dyspnea - Gastrointestinal Gastrointestinal: absent: Abdominal Pain, Constipation, Diarrhea, Nausea, Vomiting - Neurological Neurological: absent: Dizziness, Headaches Critical Care Progress Note - Nutrition Nutrition: Nutrition Category Date Time Status Renal Diet [DIET] Diets 06/10/17 Dinner Active Assessment/Plan - Assessment and Plan (Free Text) Assessment: Neuro: alert, oriented x3 Pulm: no acute issues - Chest/Abd/Pelv CT: patchy upper lobe infiltrates; large b/l pleural effusions and associated consolidation. CV: - LE edema - Duplex scan LE: no DVTs B/L - Chest/Abd/Pelv CT (06/14/17): cardiomegaly, dense coronary artery calcifications, small pericardial effusion. - Cardiomyopathy - Echo: EF 10-15%; mildly dilated LV, LV systolic function severely impaired; grade-II pseudonormal filling; LA pressure severely elevated; mild AR and MR; moderate right and left pleural effusions. - Cardiology consulted- , help appreciated Endo: no acute issues GI/: Bladder mass, urinary retention - Chest/Abd/Pelv CT (06/14/17): moderate to severe hydronephrosis and proximal hydroureter--> due to no improvement, will likely need nephrostomy tube. - Bladder US: b/l hydronephrosis, bladder mass (5.2cm) - Urology consulted- Dr. Darby, help appreciated - As per urology, will perform cystoscopy with partial resection and biospy once BUN <50, renal function improves - Beck catheter - Stool occult: negative - PSA: 3.55 - Abd CT: mod-large pleural effusions and consolidations; nodular hepatic contour; low-density lesions throughout liver; cystic appearing liver lesion; distended gallbladder; mod-severe hydronephrosis and proximal hydroureter; thick -walled irregular urinary bladder; 3.8x5.3cm mass-like density within depending portion of urinary bladder - Hepatitis B panel: Negative - Hepatitis C Antibody: Positive - Hepatitis C Viral RNA: F/U Heme: Anemia, thrombocytopenia - At admission, Hgb 5.8--> improving, 11.9 (06/12/17) - Transfused 2 units, Hgb increased to 6.6 - Platelets improving, 97 Renal: Renal failure - Chest/Abd/Pelv CT (06/14/17): nodular hepatic contour, low density lesions through out liver; 9/14mm low density lesion in hepatic dome; moderate to severe hydronephrosis and proximal hydroureter. anasarca, b/l gynecomastia; ascites - Will likely need nephrostomy tubes placed due to hydronephrosis - Nephrology consulted- Dr. Duarte, help appreciated - GLADYS on CKD - BUN/Cr: 108/6.0 (at admission 152/10.4) - Hyperkalemia: improved, 4.0 - Hyperphosphatemia: Continue Phoslo - Hypomagnesemia: gave 1gm Mg Sulfate - Severe metabolic acidosis - Disontinued Sodium Bicarb IV - As per nephrology, no dialysis at this time; continue medical management. ID: no acute issues Prophylaxis: - DVT: SCDs, C/I to anticoagulation (anemia) - GI: Pepcid daily <Salazar Cole P - Last Filed: 06/15/17 00:45> CCU Objective - Vital Signs / Intake & Output Vital Signs (Last 4 hours): Vital Signs Temp Pulse Resp BP Pulse Ox 06/15/17 00:00 98.9 F 94 H 16 106/64 96 06/14/17 23:00 92 H 14 110/64 98 06/14/17 22:00 92 H 16 108/62 100 06/14/17 21:01 100 H 14 103/49 L 100 06/14/17 21:00 93 H 16 98 Intake and Output (Last 8hrs): Intake & Output 0806/14/17 06/15/17 14:59 22:59 06:59 Intake Total 600 275 Output Total 756 665 40 Balance -156 -390 -40 Weight 108 lb 6 oz Intake: Intake, IV Amount 200 5 Left Forearm 200 5 Oral 400 270 Output: Urine 756 665 40 Urethral (Beck) 756 665 40 Other: # Bowel Movements 1 0 - Medications Active Medications: Active Medications Generic Name Dose Route Start Last Admin Trade Name Wanda PRN Reason Stop Dose Admin Calcitriol 0.25 mcg 06/14/17 10:00 06/14/17 09:07 Rocaltrol PO 0.25 mcg DAILY TANI Administration Calcium Acetate 667 mg 06/10/17 18:00 06/14/17 17:20 Phoslo PO 667 mg TID TANI Administration Famotidine 20 mg 06/15/17 10:00 Pepcid PO DAILY TANI Vitamin B Complex/Vit C/Folic Acid 1 tab 06/11/17 08:00 06/14/17 08:18 Nephro-Aleksandra PO 1 tab 0800 TANI Administration - Patient Studies Lab Studies: Microbiology Studies 06/09/17 21:00 Blood Culture - Final Blood-Venous NO GROWTH AFTER 5 DAYS Gram Stain - Final 06/09/17 20:48 Blood Culture - Final Blood-Venous NO GROWTH AFTER 5 DAYS Gram Stain - Final TEST NOT PERFORMED Lab Studies 06/14/17 06/14/17 06/14/17 Range/Units 07:23 07:23 07:23 WBC (4.8-10.8) K/uL RBC (4.40-5.90) Mil/uL Hgb (12.0-18.0) g/dL Hct (35.0-51.0) % MCV (80.0-94.0) fL MCH (27.0-31.0) pg MCHC (33.0-37.0) g/dL RDW (11.5-14.5) % Plt Count (130-400) K/uL MPV (7.2-11.7) fL Neut % (Auto) (50.0-75.0) % Lymph % (Auto) (20.0-40.0) % [place] % (Auto) (0.0-10.0) % Eos % (Auto) (0.0-4.0) % Baso % (Auto) (0.0-2.0) % Neut # (1.8-7.0) K/uL Lymph # (1.0-4.3) K/uL [place] # (0.0-0.8) K/uL Eos # (0.0-0.7) K/uL Baso # (0.0-0.2) K/uL Sodium (132-148) mmol/L Potassium (3.6-5.2) mmol/L Chloride (98-107) mmol/L Carbon Dioxide (22-30) mmol/L Anion Gap (10-20) BUN (9-20) mg/dL Creatinine (0.8-1.5) MG/DL Est GFR ( Amer) Est GFR (Non-Af Amer) Random Glucose (75-110) mg/dL Calcium (8.6-10.4) mg/dl Phosphorus (2.5-4.5) mg/dL Magnesium (1.6-2.3) mg/dL Total Bilirubin (0.2-1.3) mg/dL AST (17-59) U/L ALT (21-72) U/L Alkaline Phosphatase (38-126) U/L Ammonia 22 (9-33) umol/L Total Protein (6.3-8.3) g/dL Albumin (3.5-5.0) g/dL Albumin (PEP) (3.8-4.8) g/dL Globulin (2.2-3.9) gm/dL Albumin/Globulin Ratio (1.0-2.1) Qffdv-1-Trtwnwilp (0.2-0.3) g/dL Trjlm-0-Nghoocwxy (0.5-0.9) g/dL Ndnc-3-Xhwemcmf (0.4-0.6) g/dL Qiud-1-Hhkqzwju (0.2-0.5) g/dL Gamma Globulins (0.8-1.7) g/dL Abnorm Protein Band 1 (None Detected) g/dL Abnorm Protein Band 2 Abnorm Protein Band 3 Alpha Fetoprotein 1.9 (0.0-7.5) ng/mL JANES & SPEP Interp RPR Nonreactive (NONREACTIVE) 06/14/17 06/14/17 06/09/17 Range/Units 06:27 06:27 20:44 WBC 7.8 (4.8-10.8) K/uL RBC 3.53 L (4.40-5.90) Mil/uL Hgb 11.1 L (12.0-18.0) g/dL Hct 33.7 L (35.0-51.0) % MCV 95.6 H (80.0-94.0) fL MCH 31.5 H (27.0-31.0) pg MCHC 33.0 (33.0-37.0) g/dL RDW 19.2 H (11.5-14.5) % Plt Count 97 L (130-400) K/uL MPV 11.5 (7.2-11.7) fL Neut % (Auto) 77.3 H (50.0-75.0) % Lymph % (Auto) 15.7 L (20.0-40.0) % [place] % (Auto) 5.7 (0.0-10.0) % Eos % (Auto) 0.8 (0.0-4.0) % Baso % (Auto) 0.5 (0.0-2.0) % Neut # 6.0 (1.8-7.0) K/uL Lymph # 1.2 (1.0-4.3) K/uL [place] # 0.4 (0.0-0.8) K/uL Eos # 0.1 (0.0-0.7) K/uL Baso # 0.0 (0.0-0.2) K/uL Sodium 139 (132-148) mmol/L Potassium 4.1 (3.6-5.2) mmol/L Chloride 103 (98-107) mmol/L Carbon Dioxide 25 (22-30) mmol/L Anion Gap 15 (10-20) BUN 108 H* (9-20) mg/dL Creatinine 6.0 H (0.8-1.5) MG/DL Est GFR ( Amer) 11 Est GFR (Non-Af Amer) 9 Random Glucose 110 (75-110) mg/dL Calcium 6.2 L (8.6-10.4) mg/dl Phosphorus 4.7 H (2.5-4.5) mg/dL Magnesium 1.6 (1.6-2.3) mg/dL Total Bilirubin 0.7 (0.2-1.3) mg/dL AST 49 (17-59) U/L ALT 37 (21-72) U/L Alkaline Phosphatase 68 (38-126) U/L Ammonia (9-33) umol/L Total Protein 5.7 L (6.3-8.3) g/dL Albumin 2.2 L (3.5-5.0) g/dL Albumin (PEP) 2.1 L (3.8-4.8) g/dL Globulin 3.6 (2.2-3.9) gm/dL Albumin/Globulin Ratio 0.6 L (1.0-2.1) Dfdjs-2-Fbybnyjxg 0.3 (0.2-0.3) g/dL Dhooc-7-Ijnylvtip 0.4 L (0.5-0.9) g/dL Okvo-2-Nibirbfr 0.3 L (0.4-0.6) g/dL Hgnl-7-Nvklbput 0.4 (0.2-0.5) g/dL Gamma Globulins 1.7 (0.8-1.7) g/dL Abnorm Protein Band 1 0.27 H (None Detected) g/dL Abnorm Protein Band 2 TEST NOT PERFORMED Abnorm Protein Band 3 TEST NOT PERFORMED Alpha Fetoprotein (0.0-7.5) ng/mL JANES & SPEP Interp See note RPR (NONREACTIVE) Laboratory Results - last 24 hr 06/09/17 06/14/17 06/14/17 20:44 06:27 06:27 WBC 7.8 RBC 3.53 L Hgb 11.1 L Hct 33.7 L MCV 95.6 H MCH 31.5 H MCHC 33.0 RDW 19.2 H Plt Count 97 L MPV 11.5 Neut % (Auto) 77.3 H Lymph % (Auto) 15.7 L [place] % (Auto) 5.7 Eos % (Auto) 0.8 Baso % (Auto) 0.5 Neut # 6.0 Lymph # 1.2 [place] # 0.4 Eos # 0.1 Baso # 0.0 Sodium 139 Potassium 4.1 Chloride 103 Carbon Dioxide 25 Anion Gap 15 BUN 108 H* Creatinine 6.0 H Est GFR ( Amer) 11 Est GFR (Non-Af Amer) 9 Random Glucose 110 Calcium 6.2 L Phosphorus 4.7 H Magnesium 1.6 Total Bilirubin 0.7 AST 49 ALT 37 Alkaline Phosphatase 68 Ammonia Total Protein 5.7 L Albumin 2.2 L Albumin (PEP) 2.1 L Globulin 3.6 Albumin/Globulin Ratio 0.6 L Gizbo-2-Djcvzlwwd 0.3 Kjaij-7-Tanblzpyt 0.4 L Tskb-8-Gxjfhopm 0.3 L Hydm-5-Gbuxjmdg 0.4 Gamma Globulins 1.7 Abnorm Protein Band 1 0.27 H Abnorm Protein Band 2 TEST NOT PERFORMED Abnorm Protein Band 3 TEST NOT PERFORMED Alpha Fetoprotein JANES & SPEP Interp See note RPR 06/14/17 06/14/17 06/14/17 07:23 07:23 07:23 WBC RBC Hgb Hct MCV MCH MCHC RDW Plt Count MPV Neut % (Auto) Lymph % (Auto) [place] % (Auto) Eos % (Auto) Baso % (Auto) Neut # Lymph # [place] # Eos # Baso # Sodium Potassium Chloride Carbon Dioxide Anion Gap BUN Creatinine Est GFR ( Amer) Est GFR (Non-Af Amer) Random Glucose Calcium Phosphorus Magnesium Total Bilirubin AST ALT Alkaline Phosphatase Ammonia 22 Total Protein Albumin Albumin (PEP) Globulin Albumin/Globulin Ratio Mxfrh-3-Aasuxqhkq Lrtjr-5-Ilcgblduq Rwbp-5-Gdrctrtq Lrze-9-Jhybzgsi Gamma Globulins Abnorm Protein Band 1 Abnorm Protein Band 2 Abnorm Protein Band 3 Alpha Fetoprotein 1.9 JANES & SPEP Interp RPR Nonreactive Critical Care Progress Note - Nutrition Nutrition: Nutrition Category Date Time Status Renal Diet [DIET] Diets 06/10/17 Dinner Active Attending/Attestation - Attestation I have personally seen and examined this patient.: Yes I have fully participated in the care of the patient.: Yes I have reviewed all pertinent clinical information: Yes Notes (Text): No complains, f/u CT chest/abd/pelvis reviewed still present b/l effusions, b/l hydronepherosis, patient making urine, low albumin multifactorial but leading to third spacing. Albumin 25 gram ordered to control third spacing. D/w Dr Darby, who agreed upon trial of nephorstomy tube one or both side to see if renal recovery improves as process could be chronic. Will communicate wit nephrology as well for same and d/w IR. Hep C ab positive, which could have component in renal insufficiency, thrombocytopenia and hypoalbunimia. Patient also has dilated cardiomyopathy etiology not know at this point of time, which contributes to anasarca.
--- NOTE | 2017-06-14 17:52 | CP.PCM.PN ---
Subjective - Date & Time of Evaluation Date of Evaluation: 06/14/17 Time of Evaluation: 17:51 - Subjective Subjective: pt is seen and examined, follow up consult is dictated #[id number] agreed for hd pc in am by ir Objective - Vital Signs/Intake and Output Vital Signs (last 24 hours): Temp Pulse Resp BP Pulse Ox 97.6 F 90 18 101/60 99 06/14/17 16:00 06/14/17 17:00 06/14/17 17:00 06/14/17 17:00 06/14/17 17:00 Intake and Output: 06/14/17 06/14/17 06:59 18:59 Intake Total 600 600 Output Total 1010 956 Balance -410 -356 - Medications Medications: Current Medications Calcitriol (Rocaltrol) 0.25 mcg PO DAILY [facility] Last Admin: 06/14/17 09:07 Dose: 0.25 mcg Calcium Acetate (Phoslo) 667 mg PO TID [facility] Last Admin: 06/14/17 17:20 Dose: 667 mg Famotidine (Pepcid) 20 mg PO DAILY [facility] Vitamin B Complex/Vit C/Folic Acid (Nephro-Aleksandra) 1 tab PO 0800 [facility] Last Admin: 06/14/17 08:18 Dose: 1 tab - Labs Labs: 06/14/17 06:27 06/14/17 06:27 PT 13.0 SECONDS (9.7-12.2) H 06/09/17 17:28 INR 1.2 06/09/17 17:28 APTT 33 SECONDS (21-34) 06/09/17 17:28
--- NOTE | 2017-06-14 18:02 | CP.PCM.PN ---
Subjective - Date & Time of Evaluation Date of Evaluation: 06/14/17 Time of Evaluation: 09:00 - Subjective Subjective: remains weak and bedridden needs HD but reluctant Objective - Vital Signs/Intake and Output Vital Signs (last 24 hours): Temp Pulse Resp BP Pulse Ox 97.6 F 90 18 101/60 99 06/14/17 16:00 06/14/17 17:00 06/14/17 17:00 06/14/17 17:00 06/14/17 17:00 Intake and Output: 06/14/17 06/14/17 06:59 18:59 Intake Total 600 600 Output Total 1010 956 Balance -410 -356 - Medications Medications: Current Medications Calcitriol (Rocaltrol) 0.25 mcg PO DAILY [facility] Last Admin: 06/14/17 09:07 Dose: 0.25 mcg Calcium Acetate (Phoslo) 667 mg PO TID [facility] Last Admin: 06/14/17 17:20 Dose: 667 mg Famotidine (Pepcid) 20 mg PO DAILY [facility] Vitamin B Complex/Vit C/Folic Acid (Nephro-Aleksandra) 1 tab PO 0800 [facility] Last Admin: 06/14/17 08:18 Dose: 1 tab - Labs Labs: 06/14/17 06:27 06/14/17 06:27 PT 13.0 SECONDS (9.7-12.2) H 06/09/17 17:28 INR 1.2 06/09/17 17:28 APTT 33 SECONDS (21-34) 06/09/17 17:28 - Constitutional Appears: Non-toxic, Cachectic, Chronically Ill - Head Exam Head Exam: NORMOCEPHALIC - Eye Exam Eye Exam: PERRL. absent: Scleral icterus - ENT Exam ENT Exam: Mucous Membranes Dry - Neck Exam Neck Exam: absent: Lymphadenopathy - Respiratory Exam Respiratory Exam: Decreased Breath Sounds - Cardiovascular Exam Cardiovascular Exam: REGULAR RHYTHM - GI/Abdominal Exam GI & Abdominal Exam: Distended, Soft - Rectal Exam Rectal Exam: Deferred - Exam Exam: NORMAL INSPECTION - Extremities Exam Extremities Exam: Pedal Edema - Back Exam Back Exam: absent: CVA tenderness (L), CVA tenderness (R) - Neurological Exam Neurological Exam: Alert, Awake, Oriented x3 - Psychiatric Exam Psychiatric exam: Normal Mood - Skin Skin Exam: Dry Assessment and Plan (1) Hepatitis C antibody positive in blood Status: Acute (2) Cachexia Status: Acute (3) Cardiomyopathy Status: Acute (4) ARF (acute renal failure) Status: Acute (5) Hyperkalemia Status: Acute (6) Metabolic acidosis Status: Acute (7) Symptomatic anemia Status: Acute
--- NOTE | 2017-06-14 23:25 | CP.PCM.CON ---
History of Present Illness - History of Present Illness History of Present Illness: CC: Cardiolgy 2nd opinion HPI: 77 M admitted with weight loss, loss of appetite, acute renal failure, hydronephrosis, Acute systolic CHF Physical Exam - Constitutional Appears: Non-toxic, Cachectic, Chronically Ill - Head Exam Head Exam: NORMOCEPHALIC - Eye Exam Eye Exam: absent: Scleral icterus - ENT Exam ENT Exam: Mucous Membranes Dry, Normal External Ear Exam - Neck Exam Neck exam: Negative for: Lymphadenopathy - Respiratory Exam Respiratory Exam: Decreased Breath Sounds, Rales - Cardiovascular Exam Cardiovascular Exam: REGULAR RHYTHM, +S1, +S2 - GI/Abdominal Exam GI & Abdominal Exam: Diminished Bowel Sounds, Soft. absent: Tenderness - Rectal Exam Rectal Exam: Deferred - Exam Exam: NORMAL INSPECTION - Extremities Exam Extremities exam: Positive for: tenderness, pedal pulses present. Negative for : calf tenderness, pedal edema - Back Exam Back exam: absent: CVA tenderness (L), CVA tenderness (R) - Neurological Exam Neurological exam: Alert, CN II-XII Intact, Oriented x3, Reflexes Normal - Psychiatric Exam Psychiatric exam: Normal Mood - Skin Skin Exam: Dry Past Patient History - Past Medical History & Family History Past Medical History?: No - Past Social History Smoking Status: Never Smoked - MUSCULOSKELETAL/RHEUMATOLOGICAL Hx Falls: Yes - PSYCHIATRIC Hx Substance Use: No - SURGICAL HISTORY Hx Surgeries: No - ANESTHESIA Hx Anesthesia: No Hx Anesthesia Reactions: No Hx Malignant Hyperthermia: No Has any member of the family had a problem w/ anesthesia?: No Meds Allergies/Adverse Reactions: Allergies Allergy/AdvReac Type Severity Reaction Status Date / Time seasonal allergies Allergy Uncoded 06/09/17 16:45 - Medications Medications: Current Medications Calcitriol (Rocaltrol) 0.25 mcg PO DAILY [facility] Last Admin: 06/14/17 09:07 Dose: 0.25 mcg Calcium Acetate (Phoslo) 667 mg PO TID [facility] Last Admin: 06/14/17 17:20 Dose: 667 mg Famotidine (Pepcid) 20 mg PO DAILY [facility] Vitamin B Complex/Vit C/Folic Acid (Nephro-Aleksandra) 1 tab PO 0800 [facility] Last Admin: 06/14/17 08:18 Dose: 1 tab Results - Vital Signs Recent Vital Signs: Last Vital Signs Temp 98.5 F 06/14/17 20:00 Pulse 92 H 06/14/17 22:00 Resp 16 06/14/17 22:00 BP 108/62 06/14/17 22:00 Pulse Ox 100 06/14/17 22:00 - Labs Result Diagrams: 06/16/17 06:20 06/16/17 06:20 Labs: Laboratory Results - last 24 hr 06/09/17 06/14/17 06/14/17 20:44 06:27 06:27 WBC 7.8 RBC 3.53 L Hgb 11.1 L Hct 33.7 L MCV 95.6 H MCH 31.5 H MCHC 33.0 RDW 19.2 H Plt Count 97 L MPV 11.5 Neut % (Auto) 77.3 H Lymph % (Auto) 15.7 L [place] % (Auto) 5.7 Eos % (Auto) 0.8 Baso % (Auto) 0.5 Neut # 6.0 Lymph # 1.2 Crook # 0.4 Eos # 0.1 Baso # 0.0 Sodium 139 Potassium 4.1 Chloride 103 Carbon Dioxide 25 Anion Gap 15 BUN 108 H* Creatinine 6.0 H Est GFR ( Amer) 11 Est GFR (Non-Af Amer) 9 Random Glucose 110 Calcium 6.2 L Phosphorus 4.7 H Magnesium 1.6 Total Bilirubin 0.7 AST 49 ALT 37 Alkaline Phosphatase 68 Ammonia Total Protein 5.7 L Albumin 2.2 L Albumin (PEP) 2.1 L Globulin 3.6 Albumin/Globulin Ratio 0.6 L Bjddk-0-Xxmniefjs 0.3 Ddene-5-Efseyrmyn 0.4 L Dfux-6-Bcgoulln 0.3 L Umwd-4-Kmkluboq 0.4 Gamma Globulins 1.7 Abnorm Protein Band 1 0.27 H Abnorm Protein Band 2 TEST NOT PERFORMED Abnorm Protein Band 3 TEST NOT PERFORMED Alpha Fetoprotein JANES & SPEP Interp See note RPR 06/14/17 06/14/17 06/14/17 07:23 07:23 07:23 WBC RBC Hgb Hct MCV MCH MCHC RDW Plt Count MPV Neut % (Auto) Lymph % (Auto) [place] % (Auto) Eos % (Auto) Baso % (Auto) Neut # Lymph # [place] # Eos # Baso # Sodium Potassium Chloride Carbon Dioxide Anion Gap BUN Creatinine Est GFR ( Amer) Est GFR (Non-Af Amer) Random Glucose Calcium Phosphorus Magnesium Total Bilirubin AST ALT Alkaline Phosphatase Ammonia 22 Total Protein Albumin Albumin (PEP) Globulin Albumin/Globulin Ratio Wicsj-8-Jgnisapnn Ruukg-6-Rsudkbirb Ombv-9-Mtbjbbae Boxi-4-Fuhailpk Gamma Globulins Abnorm Protein Band 1 Abnorm Protein Band 2 Abnorm Protein Band 3 Alpha Fetoprotein 1.9 JANES & SPEP Interp RPR Nonreactive Assessment & Plan - Assessment and Plan (Free Text) Assessment: renal failure cardiomyopathy - etiology to be determined Hep C 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
[2017-06-15 06:17] LABS: BASO % 0.4 % (0.0-2.0); EOS # 0.1 K/uL (0.0-0.7); EOS % 0.9 % (0.0-4.0); HEMATOCRIT 33.5 % (35.0-51.0); LYMPH # 1.1 K/uL (1.0-4.3); LYMPH % 16.2 % (20.0-40.0); MEAN CELL VOLUME 95.5 fL (80.0-94.0); MEAN CORPUSCULAR HEMOGLOBIN 31.7 pg (27.0-31.0); MEAN CORPUSCULAR HGB CONC 33.2 g/dL (33.0-37.0); MEAN PLATELET VOLUME 9.9 fL (7.2-11.7); MONO # 0.4 K/uL (0.0-0.8); MONO % 6.2 % (0.0-10.0); NRBC % 0.1 % (0.0-2.0); RED CELL DISTRIBUTION WIDTH 18.8 % (11.5-14.5)
[2017-06-15 06:30] LABS: INR 1.3
[2017-06-15 06:35] LABS: POTASSIUM 3.8 mmol/L (3.6-5.2)
[2017-06-15 06:36] LABS: BILIRUBIN,TOTAL 0.6 mg/dL (0.2-1.3)
[2017-06-15 06:37] LABS: ALB/GLOB RATIO 0.6 (1.0-2.1); PHOSPHOROUS 4.3 mg/dL (2.5-4.5)
[2017-06-15 06:38] LABS: CALCIUM 6.3 mg/dl (8.6-10.4); MAGNESIUM 1.4 mg/dL (1.6-2.3)
--- NOTE | 2017-06-15 06:45 | PN ---
FOLLOWUP RENAL CONSULTATION LOCATION: The patient is located in ICU, bed #10. REQUESTING PHYSICIAN: Akhil Wang MD REASON FOR FOLLOWUP: Evaluation of hemodialysis. SUBJECTIVE: The patient is a 77-year-old elderly, very cachectic male with a past medical history significant for nephrolithiasis about 20 to 30 years ago, who was admitted with severe malnutrition, cachexia, severe weakness and severe anemia, obstructive uropathy and increased BUN and creatinine and metabolic acidosis and hyperkalemia. Subsequently, the patient had Beck catheter placement and drained about 2 L urine initially and the patient has the Beck catheter since admission at the bedside drain. His renal function is slowly improving with persistent hydroureteronephrosis and also, the patient was found to have a bladder mass, about 5 cm. The patient is not in acute distress. Denies any chest pain or palpitation. Denies any fever or cough. No abdominal pain. No nausea or vomiting today. PHYSICAL EXAMINATION VITAL SIGNS: His blood pressure is 117/65, pulse 96, respiration 18 and temperature 98.5. Saturation is 99%. GENERAL: The patient is a 77-year-old elderly, very cachectic male, not in acute distress. HEENT: Pupils normal, reacting to light and accommodation. Conjunctivae pink. Sclerae anicteric. Tongue is moist. Trachea is midline. LUNGS: Symmetric on both sides. Bilateral breath sounds present, decreased at bases. CARDIOVASCULAR: [place] at the fifth intercostal space, midclavicular line. S1 and S2 audible. No murmur or gallop. ABDOMEN: Soft and tympanic. No guarding. No rigidity. No hepatosplenomegaly. CENTRAL NERVOUS SYSTEM: The patient is alert, awake and oriented x3. Nonfocal neuro examination. Cranial nerves II through XII grossly intact. Sensory and motor system is within normal limits. EXTREMITIES: No cyanosis. No clubbing. No edema of the legs. The patient has chronic skin changes and also tenderness of the left big toe. CURRENT MEDICATIONS: Include as follows: Nephro-Aleksandra 1 tablet daily, Pepcid 20 mg p.o. daily, calcium acetate 667 mg p.o. t.i.d. and Rocaltrol 0.25 mcg p.o. daily. LABORATORY DATA: Include as follows as of 06/14/2017: WBC 7.8, hemoglobin 11.1, hematocrit is 33.7 and platelets 97. Sodium 139, potassium 4.1, chloride 103, CO2 of 25, BUN 108, creatinine 6, glucose is 110, calcium is 6.2, phosphorus is 4.7, magnesium 1.6, total bili 0.7, AST 49, ALT 37, alkaline phosphatase 68, total protein 5.7 and albumin is 2.2. Other reports: RPR is nonreactive. HIV 1 and 2 antibody screening is negative and blood parasites screening is negative. Urine for immunofixation is positive; a faint band in IgG and lamda is present against a dense polyclonal background while this may represent a reactive or inflammatory process, a developing plasma cell disorder cannot be excluded. Serum protein electrophoresis evaluation reveals faint restricted band M-spike migrating around gamma globulin region. Please refer to immunofixation analysis. 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 1. Renal failure, acute on chronic kidney disease. Renal function is slightly better, but still BUN is more than 100 and creatinine 6 with a calculated GFR of about 9. Most likely, the patient will benefit from the renal replacement therapy. I discussed with the patient regarding the renal replacement therapy. The patient agreed for the Perm-A-Cath placement and initiation of the hemodialysis. 2. Cardiomyopathy, rule out ischemic cardiomyopathy. 3. Bilateral pleural effusions. 4. Secondary hyperparathyroidism. 5. Bladder mass. 6. Chronic hepatitis C, positive check. Hepatitis C, viral RNA by PCR and we will request interventional radiology to place Perm-A-Cath and then, we will schedule for hemodialysis after Perm-A-Cath placement and also follow up with urology for further management. The patient may need cystoscopy, biopsy of the bladder mass and may need ureteric stents for hydronephrosis and hydroureter and continue Nephro-Aleksandra, calcium acetate and calcitriol. We will follow with you. Thank you for allowing me to participate in your patient's care. Ruthann Duarte MD [facility] # [id number]
[2017-06-15] MEDS: Multivitamin Vitamin B Complex (Nephro-Vite) Tab PO SCH (09:17)
[2017-06-15] MEDS: Magnesium Sulfate 1 gm in D5W 1 GM/100 ML BAG IVPB SCH ×2 (10:43→11:46)
--- NOTE | 2017-06-15 12:06 | CP.PCM.PN ---
Subjective - Date & Time of Evaluation Date of Evaluation: 06/15/17 Time of Evaluation: 12:05 - Subjective Subjective: CHIEF COMPLAINTS TODAY : FEELS BETTER AT REST TOO WEAK TO SIT IN CHAIR AGREED FOR DIALYSIS ROS. HEENT : N. Resp : No cough, wheezing ,pleuritic CP ,or hemoptysis Cardio : No anginal CP, PND, orthopnea, palpitation GI : No abd.pain, n/v ,diarrhea or GI bleeding . 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 Musculoskel : No joint swelling , Derm : No rash Psych : Normal affect. Ext : POS swelling ,calf pain PE. Pt. is alert awake in no distress. V.S As noted in the chart Head ,ear nose,throat and eyes : Normal. Neck : Supple with normal carotids. Lungs: Clear air entry. Heart : S1 & S2 normal with S4. No murmur. Abd : Soft non tender with normal bowel sounds. Neuro : Moves all ext. with no localized deficit. Ext : edema with intact pulses.Non tender calves Derm : No rashes or decubitus ulcer. LABS/RADIOLOGY: H/H 11.6, CR 5.[address] OF ABD NOTED ASSESSMENT/PLAN : EVAL TO COMMENT ON HYDRO AND BLADDER PATHOLOGY . PT IS ANAESTHESIA RISK DUE TO EF 10% AND NOT ON DIALYSIS ID/CARD ON BOARD Objective - Vital Signs/Intake and Output Vital Signs (last 24 hours): Temp Pulse Resp BP Pulse Ox 98.2 F 95 H 16 107/63 100 06/15/17 04:00 06/15/17 09:01 06/15/17 09:01 06/15/17 09:01 06/15/17 09:01 Intake and Output: 06/15/17 06/15/17 11:59 23:59 Intake Total 740 Output Total 630 Balance 110 - Medications Medications: Current Medications Calcitriol (Rocaltrol) 0.25 mcg PO DAILY [facility] Last Admin: 06/15/17 09:18 Dose: 0.25 mcg Calcium Acetate (Phoslo) 667 mg PO TID [facility] Last Admin: 06/15/17 09:18 Dose: 667 mg Famotidine (Pepcid) 20 mg PO DAILY [facility] Last Admin: 06/15/17 09:18 Dose: 20 mg Vitamin B Complex/Vit C/Folic Acid (Nephro-Aleksandra) 1 tab PO 0800 [facility] Last Admin: 06/15/17 09:17 Dose: 1 tab - Labs Labs: 06/15/17 06:08 06/15/17 06:10 PT 14.4 SECONDS (9.7-12.2) H 06/15/17 06:08 INR 1.3 06/15/17 06:08 APTT 39 SECONDS (21-34) H 06/15/17 06:08
--- NOTE | 2017-06-15 14:37 | CP.CCUPN ---
<Linda TothObi - Last Filed: 06/15/17 14:45> CCU Subjective - Physician Review Subjective (Free Text): Patient was seen and examined at bedside in the morning. Patient is alert and reports he feels weak. Patient denies having chest pain, shortness of breath, abdominal pain, nausea, vomiting, fevers, and headaches. 06/15/17 14:30 CCU Objective - Vital Signs / Intake & Output Vital Signs (Last 4 hours): Vital Signs Pulse Resp BP Pulse Ox 06/15/17 13:01 94 H 17 100/58 L 100 06/15/17 13:00 94 H 18 100 06/15/17 12:00 82 16 102/58 L 100 06/15/17 11:00 89 15 97/58 L 100 Intake and Output (Last 8hrs): Intake & Output 06/14/17 06/15/17 06/15/17 22:59 06:59 14:59 Intake Total 275 440 300 Output Total 665 600 230 Balance -390 -160 70 Weight 108 lb 6 oz 107 lb Intake: Intake, IV Amount 5 Left Forearm 5 Oral 270 440 300 Output: Urine 665 600 230 Urethral (Sanon) 665 600 230 Stool 0 Other: # Bowel Movements 0 0 - Physical Exam Head: Positive for: Atraumatic, Normocephalic Pupils: Positive for: PERRL Extroacular Muscles: Positive for: EOMI Conjunctiva: Negative for: Icteric Mouth: Positive for: Dry Pharnyx: Positive for: Normal. Negative for: ERYTHEMA Respiratory/Chest: Positive for: Clear to Auscultation, Decreased Breath Sounds. Negative for: Respiratory Distress, Accessory Muscle Use, Wheezes, Rales, Retracting, Rhonchi Cardiovascular: Positive for: Regular Rate and Rhythm, Normal S1, S2, Peripheal Pulses Present, Tachycardic. Negative for: Murmurs, Irregular Rhythm, Bradycardic Abdomen: Positive for: Normal Bowel Sounds. Negative for: Tenderness, Distention, Rebound, Guarding Back: Positive for: Normal Inspection. Negative for: CVA Tenderness Upper Extremity: Negative for: Edema, Swelling Lower Extremity: Positive for: Edema (improving), Swelling (improving). Negative for: Normal Inspection Neurological: Positive for: Speech Normal Skin: Positive for: Warm, Dry, Normal Color, Other (LE edema and chronic skin changes) Psychiatric: Positive for: Alert, Oriented x 3, Normal Insight, Lethargic - Medications Active Medications: Active Medications Generic Name Dose Route Start Last Admin Trade Name Wanda PRN Reason Stop Dose Admin Calcitriol 0.25 mcg 06/14/17 10:00 06/15/17 09:18 Rocaltrol PO 0.25 mcg DAILY TANI Administration Calcium Acetate 667 mg 06/10/17 18:00 06/15/17 09:18 Phoslo PO 667 mg TID TANI Administration Famotidine 20 mg 06/15/17 10:00 06/15/17 09:18 Pepcid PO 20 mg DAILY TANI Administration Vitamin B Complex/Vit C/Folic Acid 1 tab 06/11/17 08:00 06/15/17 09:17 Nephro-Aleksandra PO 1 tab 0800 TANI Administration - Patient Studies Lab Studies: Microbiology Studies 06/09/17 21:00 Blood Culture - Final Blood-Venous NO GROWTH AFTER 5 DAYS Gram Stain - Final 06/09/17 20:48 Blood Culture - Final Blood-Venous NO GROWTH AFTER 5 DAYS Gram Stain - Final TEST NOT PERFORMED Lab Studies 06/15/17 06/15/17 06/15/17 Range/Units 06:24 06:10 06:08 WBC 7.0 (4.8-10.8) K/uL RBC 3.51 L (4.40-5.90) Mil/uL Hgb 11.1 L (12.0-18.0) g/dL Hct 33.5 L (35.0-51.0) % MCV 95.5 H (80.0-94.0) fL MCH 31.7 H (27.0-31.0) pg MCHC 33.2 (33.0-37.0) g/dL RDW 18.8 H (11.5-14.5) % Plt Count 87 L (130-400) K/uL MPV 9.9 (7.2-11.7) fL Neut % (Auto) 76.3 H (50.0-75.0) % Lymph % (Auto) 16.2 L (20.0-40.0) % Dewitt % (Auto) 6.2 (0.0-10.0) % Eos % (Auto) 0.9 (0.0-4.0) % Baso % (Auto) 0.4 (0.0-2.0) % Neut # 5.3 (1.8-7.0) K/uL Lymph # 1.1 (1.0-4.3) K/uL Dewitt # 0.4 (0.0-0.8) K/uL Eos # 0.1 (0.0-0.7) K/uL Baso # 0.0 (0.0-0.2) K/uL Retic Count 1.0 (0.5-1.5) % PT (9.7-12.2) SECONDS INR APTT (21-34) SECONDS Sodium 142 (132-148) mmol/L Potassium 3.8 (3.6-5.2) mmol/L Chloride 104 (98-107) mmol/L Carbon Dioxide 26 (22-30) mmol/L Anion Gap 16 (10-20) BUN 101 H* (9-20) mg/dL Creatinine 5.7 H (0.8-1.5) MG/DL Est GFR ( Amer) 12 Est GFR (Non-Af Amer) 10 Random Glucose 85 (75-110) mg/dL Calcium 6.3 L (8.6-10.4) mg/dl Phosphorus 4.3 (2.5-4.5) mg/dL Magnesium 1.4 L (1.6-2.3) mg/dL Total Bilirubin 0.6 (0.2-1.3) mg/dL AST 66 H D (17-59) U/L ALT 71 (21-72) U/L Alkaline Phosphatase 78 (38-126) U/L Lactate Dehydrogenase 601 (313-618) U/L Total Protein 6.0 L (6.3-8.3) g/dL Albumin 2.3 L (3.5-5.0) g/dL Globulin 3.7 (2.2-3.9) gm/dL Albumin/Globulin Ratio 0.6 L (1.0-2.1) Vitamin B12 265 (239-931) pg/mL RPR (NONREACTIVE) 06/15/17 06/14/17 Range/Units 06:08 07:23 WBC (4.8-10.8) K/uL RBC (4.40-5.90) Mil/uL Hgb (12.0-18.0) g/dL Hct (35.0-51.0) % MCV (80.0-94.0) fL MCH (27.0-31.0) pg MCHC (33.0-37.0) g/dL RDW (11.5-14.5) % Plt Count (130-400) K/uL MPV (7.2-11.7) fL Neut % (Auto) (50.0-75.0) % Lymph % (Auto) (20.0-40.0) % Dewitt % (Auto) (0.0-10.0) % Eos % (Auto) (0.0-4.0) % Baso % (Auto) (0.0-2.0) % Neut # (1.8-7.0) K/uL Lymph # (1.0-4.3) K/uL Dewitt # (0.0-0.8) K/uL Eos # (0.0-0.7) K/uL Baso # (0.0-0.2) K/uL Retic Count (0.5-1.5) % PT 14.4 H (9.7-12.2) SECONDS INR 1.3 APTT 39 H (21-34) SECONDS Sodium (132-148) mmol/L Potassium (3.6-5.2) mmol/L Chloride (98-107) mmol/L Carbon Dioxide (22-30) mmol/L Anion Gap (10-20) BUN (9-20) mg/dL Creatinine (0.8-1.5) MG/DL Est GFR ( Amer) Est GFR (Non-Af Amer) Random Glucose (75-110) mg/dL Calcium (8.6-10.4) mg/dl Phosphorus (2.5-4.5) mg/dL Magnesium (1.6-2.3) mg/dL Total Bilirubin (0.2-1.3) mg/dL AST (17-59) U/L ALT (21-72) U/L Alkaline Phosphatase (38-126) U/L Lactate Dehydrogenase (313-618) U/L Total Protein (6.3-8.3) g/dL Albumin (3.5-5.0) g/dL Globulin (2.2-3.9) gm/dL Albumin/Globulin Ratio (1.0-2.1) Vitamin B12 (239-931) pg/mL RPR Nonreactive (NONREACTIVE) Laboratory Results - last 24 hr 06/14/17 06/15/17 06/15/17 07:23 06:08 06:08 WBC 7.0 RBC 3.51 L Hgb 11.1 L Hct 33.5 L MCV 95.5 H MCH 31.7 H MCHC 33.2 RDW 18.8 H Plt Count 87 L MPV 9.9 Neut % (Auto) 76.3 H Lymph % (Auto) 16.2 L Dewitt % (Auto) 6.2 Eos % (Auto) 0.9 Baso % (Auto) 0.4 Neut # 5.3 Lymph # 1.1 Dewitt # 0.4 Eos # 0.1 Baso # 0.0 Retic Count PT 14.4 H INR 1.3 APTT 39 H Sodium Potassium Chloride Carbon Dioxide Anion Gap BUN Creatinine Est GFR ( Amer) Est GFR (Non-Af Amer) Random Glucose Calcium Phosphorus Magnesium Total Bilirubin AST ALT Alkaline Phosphatase Lactate Dehydrogenase Total Protein Albumin Globulin Albumin/Globulin Ratio Vitamin B12 RPR Nonreactive 06/15/17 06/15/17 06:10 06:24 WBC RBC Hgb Hct MCV MCH MCHC RDW Plt Count MPV Neut % (Auto) Lymph % (Auto) Dewitt % (Auto) Eos % (Auto) Baso % (Auto) Neut # Lymph # Dewitt # Eos # Baso # Retic Count 1.0 PT INR APTT Sodium 142 Potassium 3.8 Chloride 104 Carbon Dioxide 26 Anion Gap 16 BUN 101 H* Creatinine 5.7 H Est GFR ( Amer) 12 Est GFR (Non-Af Amer) 10 Random Glucose 85 Calcium 6.3 L Phosphorus 4.3 Magnesium 1.4 L Total Bilirubin 0.6 AST 66 H D ALT 71 Alkaline Phosphatase 78 Lactate Dehydrogenase 601 Total Protein 6.0 L Albumin 2.3 L Globulin 3.7 Albumin/Globulin Ratio 0.6 L Vitamin B12 265 RPR Fingerstick Blood Sugar Results: 109 Review of Systems - Constitutional Constitutional: absent: Fever - Cardiovascular Cardiovascular: Leg Edema. absent: Chest Pain, Dyspnea - Respiratory Respiratory: absent: Dyspnea - Gastrointestinal Gastrointestinal: absent: Abdominal Pain, Constipation, Diarrhea, Nausea, Vomiting - Neurological Neurological: absent: Headaches Critical Care Progress Note - Nutrition Nutrition: Nutrition Category Date Time Status Renal Diet [DIET] Diets 06/10/17 Dinner Active Assessment/Plan - Assessment and Plan (Free Text) Assessment: Neuro: alert, oriented x3 Pulm: no acute issues - Chest/Abd/Pelv CT: patchy upper lobe infiltrates; large b/l pleural effusions and associated consolidation. CV: - LE edema - Duplex scan LE: no DVTs B/L - Chest/Abd/Pelv CT (06/14/17): cardiomegaly, dense coronary artery calcifications, small pericardial effusion. - Cardiomyopathy - Echo: EF 10-15%; mildly dilated LV, LV systolic function severely impaired; grade-II pseudonormal filling; LA pressure severely elevated; mild AR and MR; moderate right and left pleural effusions. - Cardiology consulted- , help appreciated Endo: no acute issues GI/: Bladder mass, urinary retention - Chest/Abd/Pelv CT (06/14/17): moderate to severe hydronephrosis and proximal hydroureter--> due to no improvement, will likely need nephrostomy tube. - Bladder US: b/l hydronephrosis, bladder mass (5.2cm) - Urology consulted- Dr. Darby, help appreciated - As per urology, will perform cystoscopy with partial resection and biospy once BUN <50, renal function improves - Sanon catheter - Stool occult: negative - PSA: 3.55 - Abd CT: mod-large pleural effusions and consolidations; nodular hepatic contour; low-density lesions throughout liver; cystic appearing liver lesion; distended gallbladder; mod-severe hydronephrosis and proximal hydroureter; thick -walled irregular urinary bladder; 3.8x5.3cm mass-like density within depending portion of urinary bladder - Hepatitis B panel: Negative - Hepatitis C Antibody: Positive - Hepatitis C Viral RNA: F/U Heme: Anemia, thrombocytopenia - At admission, Hgb 5.8--> improving, 11.1 - Transfused 2 units, Hgb increased to 6.6 - Platelets 87 Renal: GLADYS on CKD --> BUN/Cr improving, continue current management, no dialysis at this time. - BUN/Cr: 101/5.7 (at admission 152/10.4) - BUN/Cr improving; if stops improving, may need nephrostomy tubes placed due to hydronephrosis - Nephrology consulted- Dr. Duarte, help appreciated - Hyperkalemia: improved, 4.0 - Hyperphosphatemia: Continue Phoslo - Hypomagnesemia: gave 1gm Mg Sulfate - Severe metabolic acidosis - Disontinued Sodium Bicarb IV - As per nephrology, no dialysis at this time; continue medical management. - Chest/Abd/Pelv CT (06/14/17): nodular hepatic contour, low density lesions through out liver; 9/14mm low density lesion in hepatic dome; moderate to severe hydronephrosis and proximal hydroureter. anasarca, b/l gynecomastia; ascites ID: no acute issues Prophylaxis: - DVT: SCDs, C/I to anticoagulation (anemia) - GI: Pepcid daily <Alfonso Merrill - Last Filed: 06/15/17 15:20> CCU Subjective - Physician Review Events Since Last Encounter (Free Text): CCm chart reviewed. Pt examined. Discussed with housestaff Pt denied new complaint. No sob or chest pain Alert, nad Neck- no jvdlungs- bilat bs heart-rr aBd- benign eXt- no edema Labs, [id number] A&P GLADYS on CKD- improving Obstructive Uropathy/ draining urine from sanon Bladder Mass CMP Anemia- improved Thrombocytopenia Hep C f/u Renal scan renal fx sl. better IR for Perc. nephrostomy after scan/ ? timing No indication for acute HD maintain optimal lytes f/u labs f/u I&Os 06/15/17 15:15 CCU Objective - Vital Signs / Intake & Output Vital Signs (Last 4 hours): Vital Signs Pulse Resp BP Pulse Ox 06/15/17 13:01 94 H 17 100/58 L 100 06/15/17 13:00 94 H 18 100 06/15/17 12:00 82 16 102/58 L 100 Intake and Output (Last 8hrs): Intake & Output 06/15/17 06/15/17 06/15/17 06:59 14:59 22:59 Intake Total 440 300 Output Total 600 230 Balance -160 70 Weight 107 lb Intake: Oral 440 300 Output: Urine 600 230 Urethral (Sanon) 600 230 Stool 0 Other: # Bowel Movements 0 - Medications Active Medications: Active Medications Generic Name Dose Route Start Last Admin Trade Name Freq PRN Reason Stop Dose Admin Calcitriol 0.25 mcg 06/14/17 10:00 06/15/17 09:18 Rocaltrol PO 0.25 mcg DAILY TANI Administration Calcium Acetate 667 mg 06/10/17 18:00 06/15/17 09:18 Phoslo PO 667 mg TID TANI Administration Famotidine 20 mg 06/15/17 10:00 06/15/17 09:18 Pepcid PO 20 mg DAILY TANI Administration Vitamin B Complex/Vit C/Folic Acid 1 tab 06/11/17 08:00 06/15/17 09:17 Nephro-Aleksandra PO 1 tab 0800 TANI Administration - Patient Studies Lab Studies: Microbiology Studies 06/09/17 21:00 Blood Culture - Final Blood-Venous NO GROWTH AFTER 5 DAYS Gram Stain - Final 06/09/17 20:48 Blood Culture - Final Blood-Venous NO GROWTH AFTER 5 DAYS Gram Stain - Final TEST NOT PERFORMED Lab Studies 06/15/17 06/15/17 06/15/17 Range/Units 06:24 06:10 06:08 WBC 7.0 (4.8-10.8) K/uL RBC 3.51 L (4.40-5.90) Mil/uL Hgb 11.1 L (12.0-18.0) g/dL Hct 33.5 L (35.0-51.0) % MCV 95.5 H (80.0-94.0) fL MCH 31.7 H (27.0-31.0) pg MCHC 33.2 (33.0-37.0) g/dL RDW 18.8 H (11.5-14.5) % Plt Count 87 L (130-400) K/uL MPV 9.9 (7.2-11.7) fL Neut % (Auto) 76.3 H (50.0-75.0) % Lymph % (Auto) 16.2 L (20.0-40.0) % Dewitt % (Auto) 6.2 (0.0-10.0) % Eos % (Auto) 0.9 (0.0-4.0) % Baso % (Auto) 0.4 (0.0-2.0) % Neut # 5.3 (1.8-7.0) K/uL Lymph # 1.1 (1.0-4.3) K/uL Dewitt # 0.4 (0.0-0.8) K/uL Eos # 0.1 (0.0-0.7) K/uL Baso # 0.0 (0.0-0.2) K/uL Retic Count 1.0 (0.5-1.5) % PT (9.7-12.2) SECONDS INR APTT (21-34) SECONDS Sodium 142 (132-148) mmol/L Potassium 3.8 (3.6-5.2) mmol/L Chloride 104 (98-107) mmol/L Carbon Dioxide 26 (22-30) mmol/L Anion Gap 16 (10-20) BUN 101 H* (9-20) mg/dL Creatinine 5.7 H (0.8-1.5) MG/DL Est GFR ( Amer) 12 Est GFR (Non-Af Amer) 10 Random Glucose 85 (75-110) mg/dL Calcium 6.3 L (8.6-10.4) mg/dl Phosphorus 4.3 (2.5-4.5) mg/dL Magnesium 1.4 L (1.6-2.3) mg/dL Total Bilirubin 0.6 (0.2-1.3) mg/dL AST 66 H D (17-59) U/L ALT 71 (21-72) U/L Alkaline Phosphatase 78 (38-126) U/L Lactate Dehydrogenase 601 (313-618) U/L Total Protein 6.0 L (6.3-8.3) g/dL Albumin 2.3 L (3.5-5.0) g/dL Globulin 3.7 (2.2-3.9) gm/dL Albumin/Globulin Ratio 0.6 L (1.0-2.1) Vitamin B12 265 (239-931) pg/mL RPR (NONREACTIVE) 06/15/17 06/14/17 Range/Units 06:08 07:23 WBC (4.8-10.8) K/uL RBC (4.40-5.90) Mil/uL Hgb (12.0-18.0) g/dL Hct (35.0-51.0) % MCV (80.0-94.0) fL MCH (27.0-31.0) pg MCHC (33.0-37.0) g/dL RDW (11.5-14.5) % Plt Count (130-400) K/uL MPV (7.2-11.7) fL Neut % (Auto) (50.0-75.0) % Lymph % (Auto) (20.0-40.0) % Dewitt % (Auto) (0.0-10.0) % Eos % (Auto) (0.0-4.0) % Baso % (Auto) (0.0-2.0) % Neut # (1.8-7.0) K/uL Lymph # (1.0-4.3) K/uL Dewitt # (0.0-0.8) K/uL Eos # (0.0-0.7) K/uL Baso # (0.0-0.2) K/uL Retic Count (0.5-1.5) % PT 14.4 H (9.7-12.2) SECONDS INR 1.3 APTT 39 H (21-34) SECONDS Sodium (132-148) mmol/L Potassium (3.6-5.2) mmol/L Chloride (98-107) mmol/L Carbon Dioxide (22-30) mmol/L Anion Gap (10-20) BUN (9-20) mg/dL Creatinine (0.8-1.5) MG/DL Est GFR ( Amer) Est GFR (Non-Af Amer) Random Glucose (75-110) mg/dL Calcium (8.6-10.4) mg/dl Phosphorus (2.5-4.5) mg/dL Magnesium (1.6-2.3) mg/dL Total Bilirubin (0.2-1.3) mg/dL AST (17-59) U/L ALT (21-72) U/L Alkaline Phosphatase (38-126) U/L Lactate Dehydrogenase (313-618) U/L Total Protein (6.3-8.3) g/dL Albumin (3.5-5.0) g/dL Globulin (2.2-3.9) gm/dL Albumin/Globulin Ratio (1.0-2.1) Vitamin B12 (239-931) pg/mL RPR Nonreactive (NONREACTIVE) Laboratory Results - last 24 hr 06/14/17 06/15/17 06/15/17 07:23 06:08 06:08 WBC 7.0 RBC 3.51 L Hgb 11.1 L Hct 33.5 L MCV 95.5 H MCH 31.7 H MCHC 33.2 RDW 18.8 H Plt Count 87 L MPV 9.9 Neut % (Auto) 76.3 H Lymph % (Auto) 16.2 L Dewitt % (Auto) 6.2 Eos % (Auto) 0.9 Baso % (Auto) 0.4 Neut # 5.3 Lymph # 1.1 Dewitt # 0.4 Eos # 0.1 Baso # 0.0 Retic Count PT 14.4 H INR 1.3 APTT 39 H Sodium Potassium Chloride Carbon Dioxide Anion Gap BUN Creatinine Est GFR ( Amer) Est GFR (Non-Af Amer) Random Glucose Calcium Phosphorus Magnesium Total Bilirubin AST ALT Alkaline Phosphatase Lactate Dehydrogenase Total Protein Albumin Globulin Albumin/Globulin Ratio Vitamin B12 RPR Nonreactive 06/15/17 06/15/17 06:10 06:24 WBC RBC Hgb Hct MCV MCH MCHC RDW Plt Count MPV Neut % (Auto) Lymph % (Auto) Dewitt % (Auto) Eos % (Auto) Baso % (Auto) Neut # Lymph # Dewitt # Eos # Baso # Retic Count 1.0 PT INR APTT Sodium 142 Potassium 3.8 Chloride 104 Carbon Dioxide 26 Anion Gap 16 BUN 101 H* Creatinine 5.7 H Est GFR ( Amer) 12 Est GFR (Non-Af Amer) 10 Random Glucose 85 Calcium 6.3 L Phosphorus 4.3 Magnesium 1.4 L Total Bilirubin 0.6 AST 66 H D ALT 71 Alkaline Phosphatase 78 Lactate Dehydrogenase 601 Total Protein 6.0 L Albumin 2.3 L Globulin 3.7 Albumin/Globulin Ratio 0.6 L Vitamin B12 265 RPR Critical Care Progress Note - Nutrition Nutrition: Nutrition Category Date Time Status Renal Diet [DIET] Diets 06/10/17 Dinner Active
--- NOTE | 2017-06-15 14:39 | CP.PCM.CON ---
History of Present Illness - History of Present Illness History of Present Illness: 77 yo man admitted s/p fall, with c/o progressive generalized weakness, weight loss(30lbs), found to have severe anemia, renal failure with obstructive uropathy(?prostate, ?bladder tumor) as well. Work up showing abnormal SPEP with paraprotein, without any hypercalcemia, any visible bone lesons on CAT scans, further work up ordered but still pending. Patient being considered for hemodialysis, but on hold for now as creatinine improving. Patient says he feels better, has not seen a doctor in decades, has been having difficuly urinating for a year. The recent weight loss alarmed him. Past Patient History - Past Medical History & Family History Past Medical History?: No - Past Social History Smoking Status: Never Smoked - MUSCULOSKELETAL/RHEUMATOLOGICAL Hx Falls: Yes - PSYCHIATRIC Hx Substance Use: No - SURGICAL HISTORY Hx Surgeries: No - ANESTHESIA Hx Anesthesia: No Hx Anesthesia Reactions: No Hx Malignant Hyperthermia: No Has any member of the family had a problem w/ anesthesia?: No Meds Allergies/Adverse Reactions: Allergies Allergy/AdvReac Type Severity Reaction Status Date / Time seasonal allergies Allergy Uncoded 06/09/17 16:45 - Medications Medications: Current Medications Calcitriol (Rocaltrol) 0.25 mcg PO DAILY [facility] Last Admin: 06/15/17 09:18 Dose: 0.25 mcg Calcium Acetate (Phoslo) 667 mg PO TID [facility] Last Admin: 06/15/17 09:18 Dose: 667 mg Famotidine (Pepcid) 20 mg PO DAILY [facility] Last Admin: 06/15/17 09:18 Dose: 20 mg Vitamin B Complex/Vit C/Folic Acid (Nephro-Aleksandra) 1 tab PO 0800 [facility] Last Admin: 06/15/17 09:17 Dose: 1 tab Results - Vital Signs Recent Vital Signs: Last Vital Signs Temp 98.2 F 06/15/17 04:00 Pulse 94 H 06/15/17 13:01 Resp 17 06/15/17 13:01 BP 100/58 L 06/15/17 13:01 Pulse Ox 100 06/15/17 13:01 - Labs Result Diagrams: 06/15/17 06:08 06/15/17 06:10 Labs: Laboratory Results - last 24 hr 06/14/17 06/15/17 06/15/17 07:23 06:08 06:08 WBC 7.0 RBC 3.51 L Hgb 11.1 L Hct 33.5 L MCV 95.5 H MCH 31.7 H MCHC 33.2 RDW 18.8 H Plt Count 87 L MPV 9.9 Neut % (Auto) 76.3 H Lymph % (Auto) 16.2 L [place] % (Auto) 6.2 Eos % (Auto) 0.9 Baso % (Auto) 0.4 Neut # 5.3 Lymph # 1.1 [place]ckley # 0.4 Eos # 0.1 Baso # 0.0 Retic Count PT 14.4 H INR 1.3 APTT 39 H Sodium Potassium Chloride Carbon Dioxide Anion Gap BUN Creatinine Est GFR ( Amer) Est GFR (Non-Af Amer) Random Glucose Calcium Phosphorus Magnesium Total Bilirubin AST ALT Alkaline Phosphatase Lactate Dehydrogenase Total Protein Albumin Globulin Albumin/Globulin Ratio Vitamin B12 RPR Nonreactive 06/15/17 06/15/17 06:10 06:24 WBC RBC Hgb Hct MCV MCH MCHC RDW Plt Count MPV Neut % (Auto) Lymph % (Auto) [place] % (Auto) Eos % (Auto) Baso % (Auto) Neut # Lymph # [place] # Eos # Baso # Retic Count 1.0 PT INR APTT Sodium 142 Potassium 3.8 Chloride 104 Carbon Dioxide 26 Anion Gap 16 BUN 101 H* Creatinine 5.7 H Est GFR ( Amer) 12 Est GFR (Non-Af Amer) 10 Random Glucose 85 Calcium 6.3 L Phosphorus 4.3 Magnesium 1.4 L Total Bilirubin 0.6 AST 66 H D ALT 71 Alkaline Phosphatase 78 Lactate Dehydrogenase 601 Total Protein 6.0 L Albumin 2.3 L Globulin 3.7 Albumin/Globulin Ratio 0.6 L Vitamin B12 265 RPR Assessment & Plan - Assessment and Plan (Free Text) Assessment: 77 yo man withnew remal failure, severe anemia, paraprotein, work up still pending. 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 Above discussed with patient. Hold off on any bone marrow biopsy for now
--- NOTE | 2017-06-15 16:53 | PN ---
DATE: 06/15/2017 TIME OF FOLLOWUP: Roughly 01:45 p.m. Called to see this patient again regarding possible bilateral nephrostomy tubes for treatment of his acute renal failure and bilateral hydronephrosis. The patient's CAT scans were reviewed with Dr. Khoa Balderas, Radiology, today, and he does have almost symmetrical bilateral hydronephrosis with a bladder mass seen in the bladder with the Beck catheter. The bladder mass is either a bladder mass with invasion of the bladder rodrigues or an intravesical prostate, which could cause outlet obstruction and bilateral hydronephrosis. The patient is currently resting comfortably with the Beck catheter. He is not complaining of any pain at this time. PHYSICAL EXAMINATION: His abdomen is soft, nondistended, nontender. He has no CVA tenderness. A Beck catheter is draining actually a large amount of jane urine well with over 800 mL in the bag at the bedside at this hour. Also noted today, his BUN and creatinine has improved from 108 and 6.0 on 06/14/2017, now down to 101 and 5.7 on 06/15/2017 and his GFR is also improved from 9 to 10 with the Beck catheter drainage. This case was discussed also with Dr. Milo Merrill the bandage winding machine operator and since the patient's BUN and creatinine are slowly improving at this hour, we will hold off on the bilateral percutaneous nephrostomy tubes at this hour. Dr. Khoa Mensah is the interventional radiologist ethanol operations manager at [facility] regarding this issue. The patient is also getting a renal scan to see if one kidney is functioning better than other kidney. His urine culture did show some yeast in the urine. His CBC shows a WBC count today 06/15/2017 of 7.0 with hemoglobin of 11.1 and hematocrit of 33.5 and his platelet count 87,000, which is still low indicating a thrombocytopenia. Plan for this patient regarding urology at this time is just observation at this time. 1. Maintain the Beck catheter to gravity drainage. 2. Continue with serial SMA-7, checking the kidney functions daily. Also discussed was the possibility of the patient developing post obstructive diuresis at this time. The nephrostomy tubes can be placed at any time. Lui Darby MD MTDD
--- NOTE | 2017-06-15 17:58 | NM ---
PROCEDURE: Nuclear medicine Renal Scan HISTORY: for evaluation of better function for nephrostomy COMPARISON: Comparison is made to the previous CT dated 06/14/2017 previous ultrasound of the kidneys dated 06/09/2017 TECHNIQUE: 17.2 mCi of technetium DTPA was administered intravenously. Sequential flow images of the kidneys were obtained for 90 secs, 3 secs a frame. Perfusion images were performed over 30 mins, 1 min/frame. Finally, delayed images were obtained 30 mins post tracer injection. FINDINGS: The right kidney appears smaller in size than the left. There are large bilateral hydronephrosis. There is significant decrease and significant delayed excretion of the radionuclide by the right kidney comparing to the left. Retention of the radiotracer in the left renal pelvis. Peak Time (mins): LEFT and RIGHT kidneys: 1.5 and 1.5 minute, respectively. 1/2 Peak Time (mins): LEFT and RIGHT kidneys: 0 and 3 minutes, respectively. Differential Perfusion: LEFT and RIGHT kidneys: 49 percent and 51, respectively. IMPRESSION: Study suggestive of significant decrease in the function of both kidneys worse on the right. Moderate to severe bilateral hydronephrosis and retention of the radiotracer in the renal cortex and in the left renal pelvis .
--- NOTE | 2017-06-15 18:20 | CP.PCM.PN ---
Subjective - Date & Time of Evaluation Date of Evaluation: 06/15/17 Time of Evaluation: 09:00 - Subjective Subjective: weak and cachectic NAD afebrile heme onc on board Hep C + Objective - Vital Signs/Intake and Output Vital Signs (last 24 hours): Temp Pulse Resp BP Pulse Ox 97.6 F 90 17 104/64 100 06/15/17 16:00 06/15/17 17:00 06/15/17 17:00 06/15/17 17:00 06/15/17 17:00 Intake and Output: 06/15/17 06/15/17 06:59 18:59 Intake Total 595 660 Output Total 915 1730 Balance -320 -1070 - Medications Medications: Current Medications Calcitriol (Rocaltrol) 0.25 mcg PO DAILY [facility] Last Admin: 06/15/17 09:18 Dose: 0.25 mcg Calcium Acetate (Phoslo) 667 mg PO TID [facility] Last Admin: 06/15/17 17:47 Dose: 667 mg Famotidine (Pepcid) 20 mg PO DAILY [facility] Last Admin: 06/15/17 09:18 Dose: 20 mg Vitamin B Complex/Vit C/Folic Acid (Nephro-Aleksandra) 1 tab PO 0800 [facility] Last Admin: 06/15/17 09:17 Dose: 1 tab - Labs Labs: 06/15/17 06:08 06/15/17 06:10 PT 14.4 SECONDS (9.7-12.2) H 06/15/17 06:08 INR 1.3 06/15/17 06:08 APTT 39 SECONDS (21-34) H 06/15/17 06:08 - Constitutional Appears: Non-toxic, Cachectic, Chronically Ill - Head Exam Head Exam: NORMOCEPHALIC - Eye Exam Eye Exam: PERRL - ENT Exam ENT Exam: Mucous Membranes Dry - Neck Exam Neck Exam: absent: Lymphadenopathy - Respiratory Exam Respiratory Exam: Decreased Breath Sounds - Cardiovascular Exam Cardiovascular Exam: REGULAR RHYTHM - GI/Abdominal Exam GI & Abdominal Exam: Distended, Soft - Rectal Exam Rectal Exam: Deferred - Exam Exam: NORMAL INSPECTION Assessment and Plan (1) Hepatitis C antibody positive in blood Status: Acute (2) Cachexia Status: Acute (3) Cardiomyopathy Status: Acute (4) ARF (acute renal failure) Status: Acute (5) Hyperkalemia Status: Acute (6) Metabolic acidosis Status: Acute (7) Symptomatic anemia Status: Acute - Assessment and Plan (Free Text) Assessment: 77 yo man admitted s/p fall, with c/o progressive generalized weakness, weight loss(30lbs), found to have severe anemia, renal failure with obstructive uropathy(?prostate, ?bladder tumor) as well. Work up showing abnormal SPEP with paraprotein, without any hypercalcemia, any visible bone lesons on CAT scans, further work up ordered but still pending. Patient being considered for hemodialysis, but on hold for now as creatinine improving. Patient says he feels better, has not seen a doctor in decades, has been having difficuly urinating for a year. The recent weight loss alarmed him.
--- NOTE | 2017-06-15 20:32 | CP.PCM.PN ---
Subjective - Date & Time of Evaluation Date of Evaluation: 06/15/17 Time of Evaluation: 11:25 - Subjective Subjective: pt is seen and examined, follow up consult is dictated #[id number] will schedule for renal scan, consider pcn after scan Objective - Vital Signs/Intake and Output Vital Signs (last 24 hours): Temp Pulse Resp BP Pulse Ox 97.6 F 95 H 16 105/63 100 06/15/17 16:00 06/15/17 19:00 06/15/17 19:00 06/15/17 19:00 06/15/17 19:00 Intake and Output: 06/15/17 06/16/17 18:59 06:59 Intake Total 940 Output Total 1950 120 Balance -1010 -120 - Medications Medications: Current Medications Calcitriol (Rocaltrol) 0.25 mcg PO DAILY [facility] Last Admin: 06/15/17 09:18 Dose: 0.25 mcg Calcium Acetate (Phoslo) 667 mg PO TID [facility] Last Admin: 06/15/17 17:47 Dose: 667 mg Famotidine (Pepcid) 20 mg PO DAILY [facility] Last Admin: 06/15/17 09:18 Dose: 20 mg Vitamin B Complex/Vit C/Folic Acid (Nephro-Aleksandra) 1 tab PO 0800 [facility] Last Admin: 06/15/17 09:17 Dose: 1 tab - Labs Labs: 06/15/17 06:08 06/15/17 06:10 PT 14.4 SECONDS (9.7-12.2) H 06/15/17 06:08 INR 1.3 06/15/17 06:08 APTT 39 SECONDS (21-34) H 06/15/17 06:08
--- NOTE | 2017-06-15 23:59 | PN ---
FOLLOWUP RENAL CONSULTATION LOCATION: The patient is located in ICU, bed #10. REQUESTED BY: Akhil Wang MD REASON FOR FOLLOWUP: Obstructive uropathy, acute renal failure, chronic kidney disease, bladder mass, anemia and cardiomyopathy. SUBJECTIVE: The patient is a 77-year-old elderly, very cachectic, male, never seen a physician in decade and was admitted with severe, severe weakness and very high BUN and creatinine of more than 150/10 and metabolic acidosis, hyperkalemia, bladder outlet obstruction and also found to have a bladder mass on ultrasound with Beck catheter with a bedside drain since admission. The patient has a good urine output from 07:00 to 11:30. The patient has a urine output, about 800 to 900 mL. The patient is not in distress. Denies any headache or dizziness. Denies any chest pain or palpitation. Denies any fever or cough. PHYSICAL EXAMINATION VITAL SIGNS: Blood pressure 102/58, pulse 82, respiration 16 and temperature 97.4. GENERAL: The patient is a 77-year-old, elderly, very cachectic male, not in distress. Height 5 feet 5 inches and weight is 107 pounds. HEENT: Pupils are normal and reacting to light and accommodation. Conjunctivae pink. Sclerae anicteric. Tongue is moist and trachea is midline. LUNGS: Symmetric on both sides. Bilateral breath sounds present, decreased breath sounds at bases. CARDIOVASCULAR: [place] at the fifth intercostal space, midclavicular line. S1 and S2 audible. No murmur or gallop ABDOMEN: Normal in appearance. Soft and tympanic. No guarding. No rigidity. No hepatosplenomegaly. CENTRAL NERVOUS SYSTEM: The patient is alert, awake and oriented x2 to x3. Sensory and motor system is grossly within normal. EXTREMITIES: No cyanosis, no clubbing and no edema. The patient has tenderness of the left big toe. MEDICATIONS: His current medications include as follows: Nephro-Aleksandra 1 tablet daily, Pepcid 20 mg daily, calcium acetate 667 mg p.o. t.i.d. and Rocaltrol 0.25 mcg p.o. daily. LABORATORY DATA: Include as follows as of 06/15/2017: WBC is 7, hemoglobin 11.1, hematocrit is 33.5 and platelets 87. PT 14.4, PTT 39. Sodium is 142, potassium 3.8, chloride 104, CO2 of 26, BUN is 101, creatinine is 5.7, glucose 85, calcium 6.3, phosphorus is 4.3, magnesium 1.4, total bili 0.6, AST 66, ALT 71, alkaline phosphatase 78, LDH 601, total protein 6 and albumin is 2.3. His ammonia level as of 06/14 is 22. ASSESSMENT AND PLAN: In summary, the patient is a 77-year-old, elderly male, very cachectic with renal failure, bilateral hydronephrosis, severe anemia, cardiomyopathy, bladder mass, bilateral pleural effusion, abnormal urine protein electrophoresis and urine immunofixation with bilateral hydroureteronephrosis. 1. Renal failure, acute on chronic kidney disease secondary to obstructive uropathy, secondary to bilateral hydroureteronephrosis, rule out bladder carcinoma with involving the trigone. 2. Cardiomyopathy. 3. Bilateral pleural effusion. 4. Bladder mass. Continue his current medications, Nephro-Aleksandra, calcium acetate, Rocaltrol and Pepcid. The patient underwent renal scan today and consistent with severe bilateral hydronephrosis, left kidney function is slightly better than the right kidney function, so consider percutaneous nephrostomy, initially on the left side and may need eventually bilateral PCN or antegrade ureteric stent placement if possible by the radiology eventually and follow up with urology, Dr. Del Valle for possible cystoscopy and biopsy of the bladder mass. We will hold the hemodialysis until PCN is done, discussed with the patient regarding the plan and agreed for the plan. Thank you for allowing me to participate in your patient's care and case discussed with credit professional this morning and also with Dr. Cole. Ruthann Duarte MD
[2017-06-16 06:31] LABS: BASO % 0.5 % (0.0-2.0); EOS # 0.1 K/uL (0.0-0.7); EOS % 2.1 % (0.0-4.0); HEMATOCRIT 32.9 % (35.0-51.0); LYMPH # 1.3 K/uL (1.0-4.3); LYMPH % 21.5 % (20.0-40.0); MEAN CELL VOLUME 96.3 fL (80.0-94.0); MEAN CORPUSCULAR HEMOGLOBIN 31.8 pg (27.0-31.0); MEAN PLATELET VOLUME 9.9 fL (7.2-11.7); MONO # 0.4 K/uL (0.0-0.8); MONO % 6.9 % (0.0-10.0); RED CELL DISTRIBUTION WIDTH 19.5 % (11.5-14.5); WHITE BLOOD COUNT 6.1 K/uL (4.8-10.8)
[2017-06-16 06:38] LABS: POTASSIUM 4.2 mmol/L (3.6-5.2)
[2017-06-16 06:40] LABS: ALB/GLOB RATIO 0.6 (1.0-2.1); BILIRUBIN,TOTAL 0.6 mg/dL (0.2-1.3); TOTAL PROTEIN 6.1 g/dL (6.3-8.3)
[2017-06-16 06:41] LABS: CALCIUM 6.8 mg/dl (8.6-10.4); MAGNESIUM 1.8 mg/dL (1.6-2.3); PHOSPHOROUS 4.2 mg/dL (2.5-4.5)
[2017-06-16] MEDS: Multivitamin Vitamin B Complex (Nephro-Vite) Tab PO SCH (08:14)
--- NOTE | 2017-06-16 12:28 | RAD ---
HISTORY: intubated COMPARISON: Portable chest 06/08/2017 FINDINGS: LUNGS: Infiltrate underlying right pleural effusion not excluded increasing opacity seen posterior to the left heart suspicious for atelectasis most likely. Infiltrate at the left base is not excluded. . PLEURA: A [id number] right and likely minimal left pleural effusion are identified. No pneumothorax bilaterally. CARDIOVASCULAR: Stable cardiomediastinal silhouette is identified. No pulmonary vascular derangement. OSSEOUS STRUCTURES: No significant abnormalities. VISUALIZED UPPER ABDOMEN: Normal. OTHER FINDINGS: None. IMPRESSION: Increasing retrocardiac opacity suggests atelectasis or possible infiltrate developing air. Increased right pleural effusion is identified with minimal likely left pleural effusion present.
--- NOTE | 2017-06-16 13:48 | CP.PCM.PN ---
Subjective - Date & Time of Evaluation Date of Evaluation: 06/16/17 Time of Evaluation: 13:47 - Subjective Subjective: CHIEF COMPLAINTS TODAY : FEELS BETTER AT REST TOO WEAK TO SIT IN CHAIR ROS. HEENT : N. Resp : No cough, wheezing ,pleuritic CP ,or hemoptysis Cardio : No anginal CP, PND, orthopnea, palpitation GI : No abd.pain, n/v ,diarrhea or GI bleeding . BARISTA : No headache, vertigo, focal deficit. Musculoskel : No joint swelling , Derm : No rash Psych : Normal affect. Ext : POS swelling ,calf pain PE. Pt. is alert awake in no distress. V.S As noted in the chart Head ,ear nose,throat and eyes : Normal. Neck : Supple with normal carotids. Lungs: Clear air entry. Heart : S1 & S2 normal with S4. No murmur. Abd : Soft non tender with normal bowel sounds. Neuro : Moves all ext. with no localized deficit. Ext : edema with intact pulses.Non tender calves Derm : No rashes or decubitus ulcer. LABS/RADIOLOGY: H/H 11.6, CR 5.[address] OF ABD NOTED ASSESSMENT/PLAN : HEM. EVAL NOTED AWAITING NEPHROSTOMY , DIALYSIS ON HOLD Objective - Vital Signs/Intake and Output Vital Signs (last 24 hours): Temp Pulse Resp BP Pulse Ox 97.6 F 89 15 97/58 L 99 06/16/17 12:00 06/16/17 12:00 06/16/17 12:00 06/16/17 12:00 06/16/17 09:01 Intake and Output: 06/16/17 06/16/17 11:59 23:59 Intake Total 480 120 Output Total 850 50 Balance -370 70 - Medications Medications: Current Medications Calcitriol (Rocaltrol) 0.25 mcg PO DAILY [facility] Last Admin: 06/16/17 11:15 Dose: 0.25 mcg Calcium Acetate (Phoslo) 667 mg PO TID [facility] Last Admin: 06/16/17 11:15 Dose: 667 mg Docusate Sodium (Colace) 100 mg PO BID [facility] Famotidine (Pepcid) 20 mg PO DAILY [facility] Last Admin: 06/16/17 11:14 Dose: 20 mg Vitamin B Complex/Vit C/Folic Acid (Nephro-Aleksandra) 1 tab PO 0800 [facility] Last Admin: 06/16/17 08:14 Dose: 1 tab - Labs Labs: 06/16/17 06:20 06/16/17 06:20 PT 14.4 SECONDS (9.7-12.2) H 06/15/17 06:08 INR 1.3 06/15/17 06:08 APTT 39 SECONDS (21-34) H 06/15/17 06:08
--- NOTE | 2017-06-16 14:08 | CP.PCM.PN ---
Subjective - Date & Time of Evaluation Date of Evaluation: 06/16/17 Time of Evaluation: 14:07 - Subjective Subjective: pt seen and examined, follow up consult is dictated #[id number] Objective - Vital Signs/Intake and Output Vital Signs (last 24 hours): Temp Pulse Resp BP Pulse Ox 97.6 F 89 15 97/58 L 99 06/16/17 12:00 06/16/17 12:00 06/16/17 12:00 06/16/17 12:00 06/16/17 09:01 Intake and Output: 06/16/17 06/16/17 06:59 18:59 Intake Total 120 600 Output Total 960 450 Balance -840 150 - Medications Medications: Current Medications Calcitriol (Rocaltrol) 0.25 mcg PO DAILY [facility] Last Admin: 06/16/17 11:15 Dose: 0.25 mcg Calcium Acetate (Phoslo) 667 mg PO TID [facility] Last Admin: 06/16/17 14:03 Dose: 667 mg Docusate Sodium (Colace) 100 mg PO BID [facility] Last Admin: 06/16/17 14:03 Dose: 100 mg Famotidine (Pepcid) 20 mg PO DAILY [facility] Last Admin: 06/16/17 11:14 Dose: 20 mg Vitamin B Complex/Vit C/Folic Acid (Nephro-Aleksandra) 1 tab PO 0800 [facility] Last Admin: 06/16/17 08:14 Dose: 1 tab - Labs Labs: 06/16/17 06:20 06/16/17 06:20 PT 14.4 SECONDS (9.7-12.2) H 06/15/17 06:08 INR 1.3 06/15/17 06:08 APTT 39 SECONDS (21-34) H 06/15/17 06:08
[2017-06-16] MEDS: Sodium Chloride 0.45% 1,000 ML IV SCH (16:02)
--- NOTE | 2017-06-16 17:51 | CP.CCUPN ---
CCU Subjective - Physician Review Events Since Last Encounter (Free Text): 06/16/17 17:51 Patient is a 77-year-old male admitted to the hospital with acute renal insufficiency, bilateral hydronephrosis, thrombocytopenia, bladder mass, initially admitted with the acute renal failure, secondary to acute bladder obstruction. Patient also placed on sodium bicarbonate drip. Currently improving. He is making urine. Bilateral hydronephrosis still noted. Patient was seen by urologist, finishing area supervisor. He is complaining of bilateral lower extremity pain on and off. On examination: Not in any distress. Vital signs stable. Chest good air entry regular heart sound nontender abdomen extended is edema noted Labs, x-ray, radiology reviewed Assessment and recommendation: 77-year-old male admitted with acute urinary retention, secondary to possible bladder mass. Bilateral hydronephrosis, with renal insufficiency. Currently improving. Malignancy possible. We'll continue to monitor the patient. Today patient is improving by tomorrow, possible transfer. Patient will need biopsy of the bladder mass, and the possible intervention including stent placement. Urology, and the nephrology follow-up. Spoke to the finishing area supervisor. Will follow the patient CCU Objective - Vital Signs / Intake & Output Vital Signs (Last 4 hours): Vital Signs Pulse Resp BP 06/16/17 16:00 96 H 19 104/62 06/16/17 15:00 99 H 15 107/65 06/16/17 14:00 96 H 18 100/57 L Intake and Output (Last 8hrs): Intake & Output 06/16/17 06/16/17 06/16/17 06:59 14:59 22:59 Intake Total 720 Output Total 550 900 100 Balance -550 -180 -100 Intake: Oral 720 Output: Urine 550 900 100 Urethral (Beck) 550 900 100 Other: # Bowel Movements 1 - Physical Exam Head: Positive for: Atraumatic, Normocephalic Pupils: Positive for: PERRL Extroacular Muscles: Positive for: EOMI Conjunctiva: Negative for: Icteric Ears: Positive for: Normal, NORMAL TM Mouth: Positive for: Dry Pharnyx: Positive for: Normal. Negative for: ERYTHEMA Nose (Internal): Positive for: Normal Inspection Neck: Positive for: Normal Range of Motion Respiratory/Chest: Positive for: Clear to Auscultation, Decreased Breath Sounds. Negative for: Respiratory Distress, Accessory Muscle Use, Wheezes, Rales, Retracting, Rhonchi Cardiovascular: Positive for: Regular Rate and Rhythm, Normal S1, S2, Peripheal Pulses Present, Tachycardic. Negative for: Murmurs, Irregular Rhythm, Bradycardic Abdomen: Positive for: Normal Bowel Sounds. Negative for: Tenderness, Distention, Rebound, Guarding Back: Positive for: Normal Inspection. Negative for: CVA Tenderness Upper Extremity: Negative for: Edema, Swelling Lower Extremity: Positive for: Edema (improving), Swelling (improving). Negative for: Normal Inspection Neurological: Positive for: Speech Normal Skin: Positive for: Warm, Dry, Normal Color, Other (LE edema and chronic skin changes) Psychiatric: Positive for: Alert, Oriented x 3, Normal Insight, Lethargic - Medications Active Medications: Active Medications Generic Name Dose Route Start Last Admin Trade Name Freq PRN Reason Stop Dose Admin Calcitriol 0.25 mcg 06/14/17 10:00 06/16/17 11:15 Rocaltrol PO 0.25 mcg DAILY [facility] Administration Calcium Acetate 667 mg 06/10/17 18:00 06/16/17 14:03 Phoslo PO 667 mg TID [facility] Administration Docusate Sodium 100 mg 06/16/17 14:00 06/16/17 14:03 Colace PO 100 mg BID [facility] Administration Famotidine 20 mg 06/15/17 10:00 06/16/17 11:14 Pepcid PO 20 mg DAILY [facility] Administration Sodium Chloride 1,000 mls @ 60 mls/hr 06/16/17 15:30 06/16/17 16:02 Sodium Chloride 0.45% IV 60 mls/hr .[id number] [facility] Administration Vitamin B Complex/Vit C/Folic Acid 1 tab 06/11/17 08:00 06/16/17 08:14 Nephro-Aleksandra PO 1 tab 0800 [facility] Administration - Patient Studies Lab Studies: Lab Studies 06/16/17 06/16/17 06/16/17 Range/Units 06:20 06:20 06:20 WBC (4.8-10.8) K/uL RBC (4.40-5.90) Mil/uL Hgb (12.0-18.0) g/dL Hct (35.0-51.0) % MCV (80.0-94.0) fL MCH (27.0-31.0) pg MCHC (33.0-37.0) g/dL RDW (11.5-14.5) % Plt Count (130-400) K/uL MPV (7.2-11.7) fL Neut % (Auto) (50.0-75.0) % Lymph % (Auto) (20.0-40.0) % [place] % (Auto) (0.0-10.0) % Eos % (Auto) (0.0-4.0) % Baso % (Auto) (0.0-2.0) % Neut # (1.8-7.0) K/uL Lymph # (1.0-4.3) K/uL [place] # (0.0-0.8) K/uL Eos # (0.0-0.7) K/uL Baso # (0.0-0.2) K/uL Sodium 142 (132-148) mmol/L Potassium 4.2 (3.6-5.2) mmol/L Chloride 103 (98-107) mmol/L Carbon Dioxide 24 (22-30) mmol/L Anion Gap 19 (10-20) BUN 96 H (9-20) mg/dL Creatinine 5.8 H (0.8-1.5) MG/DL Est GFR ( Amer) 12 Est GFR (Non-Af Amer) 10 Random Glucose 81 (75-110) mg/dL Calcium 6.8 L (8.6-10.4) mg/dl Phosphorus 4.2 (2.5-4.5) mg/dL Magnesium 1.8 (1.6-2.3) mg/dL Total Bilirubin 0.6 (0.2-1.3) mg/dL AST 117 H D (17-59) U/L ALT 111 H D (21-72) U/L Alkaline Phosphatase 98 (38-126) U/L Ammonia 11 D (9-33) umol/L Total Creatine Kinase 23 L (55-170) U/L Total Protein 6.1 L (6.3-8.3) g/dL Albumin 2.3 L (3.5-5.0) g/dL Globulin 3.8 (2.2-3.9) gm/dL Albumin/Globulin Ratio 0.6 L (1.0-2.1) Alpha Fetoprotein 1.9 (0.0-7.5) ng/mL 06/16/17 Range/Units 06:20 WBC 6.1 (4.8-10.8) K/uL RBC 3.41 L (4.40-5.90) Mil/uL Hgb 10.8 L (12.0-18.0) g/dL Hct 32.9 L (35.0-51.0) % MCV 96.3 H (80.0-94.0) fL MCH 31.8 H (27.0-31.0) pg MCHC 33.0 (33.0-37.0) g/dL RDW 19.5 H (11.5-14.5) % Plt Count 91 L (130-400) K/uL MPV 9.9 (7.2-11.7) fL Neut % (Auto) 69.0 (50.0-75.0) % Lymph % (Auto) 21.5 (20.0-40.0) % [place] % (Auto) 6.9 (0.0-10.0) % Eos % (Auto) 2.1 (0.0-4.0) % Baso % (Auto) 0.5 (0.0-2.0) % Neut # 4.2 (1.8-7.0) K/uL Lymph # 1.3 (1.0-4.3) K/uL [place] # 0.4 (0.0-0.8) K/uL Eos # 0.1 (0.0-0.7) K/uL Baso # 0.0 (0.0-0.2) K/uL Sodium (132-148) mmol/L Potassium (3.6-5.2) mmol/L Chloride (98-107) mmol/L Carbon Dioxide (22-30) mmol/L Anion Gap (10-20) BUN (9-20) mg/dL Creatinine (0.8-1.5) MG/DL Est GFR ( Amer) Est GFR (Non-Af Amer) Random Glucose (75-110) mg/dL Calcium (8.6-10.4) mg/dl Phosphorus (2.5-4.5) mg/dL Magnesium (1.6-2.3) mg/dL Total Bilirubin (0.2-1.3) mg/dL AST (17-59) U/L ALT (21-72) U/L Alkaline Phosphatase (38-126) U/L Ammonia (9-33) umol/L Total Creatine Kinase (55-170) U/L Total Protein (6.3-8.3) g/dL Albumin (3.5-5.0) g/dL Globulin (2.2-3.9) gm/dL Albumin/Globulin Ratio (1.0-2.1) Alpha Fetoprotein (0.0-7.5) ng/mL Laboratory Results - last 24 hr 06/16/17 06/16/17 06/16/17 06:20 06:20 06:20 WBC 6.1 RBC 3.41 L Hgb 10.8 L Hct 32.9 L MCV 96.3 H MCH 31.8 H MCHC 33.0 RDW 19.5 H Plt Count 91 L MPV 9.9 Neut % (Auto) 69.0 Lymph % (Auto) 21.5 [place] % (Auto) 6.9 Eos % (Auto) 2.1 Baso % (Auto) 0.5 Neut # 4.2 Lymph # 1.3 [place] # 0.4 Eos # 0.1 Baso # 0.0 Sodium 142 Potassium 4.2 Chloride 103 Carbon Dioxide 24 Anion Gap 19 BUN 96 H Creatinine 5.8 H Est GFR ( Amer) 12 Est GFR (Non-Af Amer) 10 Random Glucose 81 Calcium 6.8 L Phosphorus 4.2 Magnesium 1.8 Total Bilirubin 0.6 AST 117 H D ALT 111 H D Alkaline Phosphatase 98 Ammonia 11 D Total Creatine Kinase 23 L Total Protein 6.1 L Albumin 2.3 L Globulin 3.8 Albumin/Globulin Ratio 0.6 L Alpha Fetoprotein 06/16/17 06:20 WBC RBC Hgb Hct MCV MCH MCHC RDW Plt Count MPV Neut % (Auto) Lymph % (Auto) [place] % (Auto) Eos % (Auto) Baso % (Auto) Neut # Lymph # [place] # Eos # Baso # Sodium Potassium Chloride Carbon Dioxide Anion Gap BUN Creatinine Est GFR ( Amer) Est GFR (Non-Af Amer) Random Glucose Calcium Phosphorus Magnesium Total Bilirubin AST ALT Alkaline Phosphatase Ammonia Total Creatine Kinase Total Protein Albumin Globulin Albumin/Globulin Ratio Alpha Fetoprotein 1.9 Fingerstick Blood Sugar Results: 109 Critical Care Progress Note - Nutrition Nutrition: Nutrition Category Date Time Status Renal Diet [DIET] Diets 06/10/17 Dinner Active
--- NOTE | 2017-06-16 18:54 | PN ---
FOLLOWUP RENAL CONSULTATION LOCATION: The patient is located in ICU, bed 10. REQUESTED BY: Akhil Wang MD REASON FOR FOLLOWUP: Acute renal failure, chronic kidney disease, obstructive uropathy, bilateral hydronephrosis, and bladder mass. 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 The patient was also found to have bladder mass about 5.2 cm with hydroureteronephrosis and also the patient received 4 units of packed RBC during his hospitalization. The patient was also found to have obstructive uropathy and renal scan showed severe hydronephrosis, right kidney is much worse than the left function-mac. The patient is not in acute distress. The patient claims that he is feeling better slowly and his muscle strength is improving as for the patient. PHYSICAL EXAMINATION VITAL SIGNS: Blood pressure 100/57, pulse 96, respirations 18, and temperature is 97.6. GENERAL: The patient is a 77-year-old elderly, very cachectic male, not in distress. HEENT: Pupils normal and reactive to light and accommodation. Conjunctiva pink. Sclera anicteric. Tongue is moist. Trachea is midline. LUNGS: Symmetric on both sides. Decreased breath sounds at bases. CARDIOVASCULAR: [place] at the fifth intercostal space, midclavicular line. S1 and S2 audible. No murmur or gallop. ABDOMEN: Normal in appearance. Soft and tympanic. No guarding. No rigidity. No hepatosplenomegaly. CENTRAL NERVOUS SYSTEM: The patient is alert, awake, and oriented x2 to x3. Sensory and motor system is grossly within normal limits. EXTREMITIES: No cyanosis and no clubbing. The patient has chronic skin changes due to stasis and edema. CURRENT MEDICATIONS: Include as follows: Colace 100 mg p.o. b.i.d., Nephro-Aleksandra 1 tablet daily, Pepcid 20 mg p.o. daily and calcium acetate 667 mg p.o. t.i.d. and Rocaltrol 0.25 mcg p.o. daily. I's and O's in the last 24 hours intake is 1060 and output is 2910. The patient is negative about 3.5 liters in the last 3 days. LABORATORY DATA: Include as follows, WBC 6.1, hemoglobin 10.8, hematocrit is 32.9, platelets 91 and sodium 142, potassium 4.2, chloride 103, CO2 24, BUN 96, creatinine 5.8, glucose 81, calcium 6.8, phosphorus 4.2, and magnesium 1.8, and AST 117, ALT 111, and alkaline phosphatase is 98 l, total protein 6.1, albumin is 2.3, and globulin is 3.8 and serum alpha fetoprotein is 1.9 and B12 is 265. His chest x-ray as of 06/16/2017, increasing retrocardiac opacity suggestive of atelectasis or possible infiltrate developing air, increased right pleural effusion is identified with minimal likely left pleural effusion present. ASSESSMENT AND PLAN: In summary, the patient is about 77-year-old elderly, very cachectic male with history of questionable nephrolithiasis, was admitted with severe anemia, renal failure, bilateral hydronephrosis and bladder mass and abnormal urine protein electrophoresis, serum protein electrophoresis and also bilateral hydroureteronephrosis. 1. Renal failure, [id number] kidney disease. 2. Bladder mass, rule out bladder cancer. 3. Hydroureteronephrosis most likely secondary to bladder mass and involving trigone. 4. Cardiomyopathy. 5. Bilateral pleural effusion. PLAN: We will start him on IV fluids half normal saline at 50 mL per hour and follow with Urology for further recommendation for PCN versus cystoscopy with retrograde stent placement. We will follow with you. Thank you for allowing me to participate in your patient's care. Ruthann Duarte MD [facility]
[2017-06-16 21:14] LABS: HEPATITIS C VIRAL RNA QUAL Not detected
--- NOTE | 2017-06-16 21:31 | CP.PCM.PN ---
Subjective - Date & Time of Evaluation Date of Evaluation: 06/15/17 Time of Evaluation: 18:00 - Subjective Subjective: Patient seen and evaluated Denies chest pain and dyspnea Physical Exam - Constitutional Appears: Non-toxic, Cachectic, Chronically Ill - Head Exam Head Exam: NORMOCEPHALIC - Eye Exam Eye Exam: absent: Scleral icterus - ENT Exam ENT Exam: Mucous Membranes Dry, Normal External Ear Exam - Neck Exam Neck exam: Negative for: Lymphadenopathy - Respiratory Exam Respiratory Exam: Decreased Breath Sounds, Rales - Cardiovascular Exam Cardiovascular Exam: REGULAR RHYTHM, +S1, +S2 - GI/Abdominal Exam GI & Abdominal Exam: Diminished Bowel Sounds, Soft. absent: Tenderness - Rectal Exam Rectal Exam: Deferred - Exam Exam: NORMAL INSPECTION - Extremities Exam Extremities exam: Positive for: tenderness, pedal pulses present. Negative for : calf tenderness, pedal edema - Back Exam Back exam: absent: CVA tenderness (L), CVA tenderness (R) - Neurological Exam Neurological exam: Alert, CN II-XII Intact, Oriented x3, Reflexes Normal - Psychiatric Exam Psychiatric exam: Normal Mood - Skin Skin Exam: Dry Objective - Vital Signs/Intake and Output Vital Signs (last 24 hours): Temp Pulse Resp BP Pulse Ox 97.8 F 99 H 18 113/69 100 06/16/17 16:00 06/16/17 18:01 06/16/17 18:01 06/16/17 18:01 06/16/17 18:01 Intake and Output: 06/16/17 06/17/17 18:59 06:59 Intake Total 1250 Output Total 1290 Balance -40 - Medications Medications: Current Medications Calcitriol (Rocaltrol) 0.25 mcg PO DAILY [facility] Last Admin: 06/16/17 11:15 Dose: 0.25 mcg Calcium Acetate (Phoslo) 667 mg PO TID [facility] Last Admin: 06/16/17 19:35 Dose: 667 mg Docusate Sodium (Colace) 100 mg PO BID [facility] Last Admin: 06/16/17 18:30 Dose: 100 mg Famotidine (Pepcid) 20 mg PO DAILY [facility] Last Admin: 06/16/17 11:14 Dose: 20 mg Sodium Chloride (Sodium Chloride 0.45%) 1,000 mls @ 60 mls/hr IV .[id number] [facility] Last Admin: 06/16/17 16:02 Dose: 60 mls/hr Vitamin B Complex/Vit C/Folic Acid (Nephro-Aleksandra) 1 tab PO 0800 [facility] Last Admin: 06/16/17 08:14 Dose: 1 tab - Labs Labs: 06/16/17 06:20 06/16/17 06:20 PT 14.4 SECONDS (9.7-12.2) H 06/15/17 06:08 INR 1.3 06/15/17 06:08 APTT 39 SECONDS (21-34) H 06/15/17 06:08 Assessment and Plan - Assessment and Plan (Free Text) Assessment: renal failure cardiomyopathy - etiology to be determined Hep C 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
--- NOTE | 2017-06-16 21:37 | CP.PCM.PN ---
Subjective - Date & Time of Evaluation Date of Evaluation: 06/16/17 Time of Evaluation: 15:00 - Subjective Subjective: Patient seen and evaluated Had a long discussion about his health Denies chest pain and dyspnea Physical Exam - Constitutional Appears: Non-toxic, Cachectic, Chronically Ill - Head Exam Head Exam: NORMOCEPHALIC - Eye Exam Eye Exam: absent: Scleral icterus - ENT Exam ENT Exam: Mucous Membranes Dry, Normal External Ear Exam - Neck Exam Neck exam: Negative for: Lymphadenopathy - Respiratory Exam Respiratory Exam: Decreased Breath Sounds, Rales - Cardiovascular Exam Cardiovascular Exam: REGULAR RHYTHM, +S1, +S2 - GI/Abdominal Exam GI & Abdominal Exam: Diminished Bowel Sounds, Soft. absent: Tenderness - Rectal Exam Rectal Exam: Deferred - Exam Exam: NORMAL INSPECTION - Extremities Exam Extremities exam: Positive for: tenderness, pedal pulses present. Negative for : calf tenderness, pedal edema - Back Exam Back exam: absent: CVA tenderness (L), CVA tenderness (R) - Neurological Exam Neurological exam: Alert, CN II-XII Intact, Oriented x3, Reflexes Normal - Psychiatric Exam Psychiatric exam: Normal Mood - Skin Skin Exam: Dry Objective - Vital Signs/Intake and Output Vital Signs (last 24 hours): Temp Pulse Resp BP Pulse Ox 97.8 F 99 H 18 113/69 100 06/16/17 16:00 06/16/17 18:01 06/16/17 18:01 06/16/17 18:01 06/16/17 18:01 Intake and Output: 06/16/17 06/17/17 18:59 06:59 Intake Total 1250 Output Total 1290 Balance -40 - Medications Medications: Current Medications Calcitriol (Rocaltrol) 0.25 mcg PO DAILY [facility] Last Admin: 06/16/17 11:15 Dose: 0.25 mcg Calcium Acetate (Phoslo) 667 mg PO TID [facility] Last Admin: 06/16/17 19:35 Dose: 667 mg Docusate Sodium (Colace) 100 mg PO BID [facility] Last Admin: 06/16/17 18:30 Dose: 100 mg Famotidine (Pepcid) 20 mg PO DAILY [facility] Last Admin: 06/16/17 11:14 Dose: 20 mg Sodium Chloride (Sodium Chloride 0.45%) 1,000 mls @ 60 mls/hr IV .[id number] [facility] Last Admin: 06/16/17 16:02 Dose: 60 mls/hr Vitamin B Complex/Vit C/Folic Acid (Nephro-Aleksandra) 1 tab PO 0800 [facility] Last Admin: 06/16/17 08:14 Dose: 1 tab - Labs Labs: 06/16/17 06:20 06/16/17 06:20 PT 14.4 SECONDS (9.7-12.2) H 06/15/17 06:08 INR 1.3 06/15/17 06:08 APTT 39 SECONDS (21-34) H 06/15/17 06:08 Assessment and Plan - Assessment and Plan (Free Text) Assessment: renal failure cardiomyopathy - etiology to be determined Hep C 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
[2017-06-17 06:38] LABS: POTASSIUM 4.6 mmol/L (3.6-5.2)
[2017-06-17 06:39] LABS: BASO % 0.3 % (0.0-2.0); EOS # 0.1 K/uL (0.0-0.7); EOS % 0.9 % (0.0-4.0); HEMATOCRIT 32.1 % (35.0-51.0); LYMPH # 1.4 K/uL (1.0-4.3); LYMPH % 20.1 % (20.0-40.0); MEAN CELL VOLUME 96.6 fL (80.0-94.0); MEAN CORPUSCULAR HEMOGLOBIN 32.1 pg (27.0-31.0); MEAN CORPUSCULAR HGB CONC 33.2 g/dL (33.0-37.0); MEAN PLATELET VOLUME 9.8 fL (7.2-11.7); MONO # 0.5 K/uL (0.0-0.8); MONO % 7.2 % (0.0-10.0); RED CELL DISTRIBUTION WIDTH 19.4 % (11.5-14.5); WHITE BLOOD COUNT 6.7 K/uL (4.8-10.8)
[2017-06-17 06:40] LABS: ALB/GLOB RATIO 0.6 (1.0-2.1); BILIRUBIN,TOTAL 0.6 mg/dL (0.2-1.3); TOTAL PROTEIN 6.1 g/dL (6.3-8.3)
[2017-06-17 06:41] LABS: CALCIUM 7.1 mg/dl (8.6-10.4); MAGNESIUM 1.6 mg/dL (1.6-2.3); PHOSPHOROUS 4.2 mg/dL (2.5-4.5)
[2017-06-17] MEDS: Multivitamin Vitamin B Complex (Nephro-Vite) Tab PO SCH (08:27)
[2017-06-17] MEDS: Sodium Chloride 0.45% 1,000 ML IV SCH (09:08)
--- NOTE | 2017-06-17 14:27 | CP.PCM.PN ---
Subjective - Date & Time of Evaluation Date of Evaluation: 06/17/17 Time of Evaluation: 14:25 - Subjective Subjective: D/W NEPHROLOGY : DIALYSIS ON HOLD UROLOGIST WANTS NEPHROSTOMY TUBES NO ORDERS HAVE BEEN PLACED YET CR SAME D/W PT ABOVE FINDINGS PT. HAS FLAT AFFECT WITH NO RESPONSE Objective - Vital Signs/Intake and Output Vital Signs (last 24 hours): Temp Pulse Resp BP Pulse Ox 97.4 F L 93 H 17 108/60 96 06/17/17 12:00 06/17/17 13:01 06/17/17 13:01 06/17/17 13:01 06/17/17 13:01 Intake and Output: 06/17/17 06/17/17 11:59 23:59 Intake Total 1010 230 Output Total 1090 115 Balance -80 115 - Medications Medications: Current Medications Calcitriol (Rocaltrol) 0.25 mcg PO DAILY [facility] Last Admin: 06/17/17 09:07 Dose: 0.25 mcg Calcium Acetate (Phoslo) 667 mg PO TID [facility] Last Admin: 06/17/17 13:45 Dose: 667 mg Docusate Sodium (Colace) 100 mg PO BID [facility] Last Admin: 06/17/17 09:07 Dose: 100 mg Famotidine (Pepcid) 20 mg PO DAILY [facility] Last Admin: 06/17/17 09:07 Dose: 20 mg Sodium Chloride (Sodium Chloride 0.45%) 1,000 mls @ 60 mls/hr IV .[id number] [facility] Last Admin: 06/17/17 09:08 Dose: 60 mls/hr Vitamin B Complex/Vit C/Folic Acid (Nephro-Aleksandra) 1 tab PO 0800 [facility] Last Admin: 06/17/17 08:27 Dose: 1 tab - Labs Labs: 06/17/17 06:24 06/17/17 06:19 PT 14.4 SECONDS (9.7-12.2) H 06/15/17 06:08 INR 1.3 06/15/17 06:08 APTT 39 SECONDS (21-34) H 06/15/17 06:08
--- NOTE | 2017-06-17 15:10 | CP.PCM.PN ---
Subjective - Date & Time of Evaluation Date of Evaluation: 06/17/17 Time of Evaluation: 06:00 - Subjective Subjective: weak, lethargic needs HD CT chest abd noted- possible mets Objective - Vital Signs/Intake and Output Vital Signs (last 24 hours): Temp Pulse Resp BP Pulse Ox 97.4 F L 93 H 17 108/60 96 06/17/17 12:00 06/17/17 13:01 06/17/17 13:01 06/17/17 13:01 06/17/17 13:01 Intake and Output: 06/17/17 06/17/17 06:59 18:59 Intake Total 720 820 Output Total 1040 605 Balance -320 215 - Medications Medications: Current Medications Calcitriol (Rocaltrol) 0.25 mcg PO DAILY [facility] Last Admin: 06/17/17 09:07 Dose: 0.25 mcg Calcium Acetate (Phoslo) 667 mg PO TID [facility] Last Admin: 06/17/17 13:45 Dose: 667 mg Docusate Sodium (Colace) 100 mg PO BID [facility] Last Admin: 06/17/17 09:07 Dose: 100 mg Famotidine (Pepcid) 20 mg PO DAILY [facility] Last Admin: 06/17/17 09:07 Dose: 20 mg Sodium Chloride (Sodium Chloride 0.45%) 1,000 mls @ 60 mls/hr IV .[id number] [facility] Last Admin: 06/17/17 09:08 Dose: 60 mls/hr Vitamin B Complex/Vit C/Folic Acid (Nephro-Aleksandra) 1 tab PO 0800 [facility] Last Admin: 06/17/17 08:27 Dose: 1 tab - Labs Labs: 06/17/17 06:24 06/17/17 06:19 PT 14.4 SECONDS (9.7-12.2) H 06/15/17 06:08 INR 1.3 06/15/17 06:08 APTT 39 SECONDS (21-34) H 06/15/17 06:08 - Constitutional Appears: Non-toxic, Cachectic, Chronically Ill - Head Exam Head Exam: NORMOCEPHALIC - Eye Exam Eye Exam: PERRL - ENT Exam ENT Exam: Mucous Membranes Dry, Normal External Ear Exam - Neck Exam Neck Exam: absent: Lymphadenopathy - Respiratory Exam Respiratory Exam: Decreased Breath Sounds - Cardiovascular Exam Cardiovascular Exam: REGULAR RHYTHM - GI/Abdominal Exam GI & Abdominal Exam: Distended, Soft. absent: Tenderness - Rectal Exam Rectal Exam: Deferred - Exam Exam: NORMAL INSPECTION - Extremities Exam Extremities Exam: absent: Pedal Edema - Back Exam Back Exam: absent: CVA tenderness (L), CVA tenderness (R) - Neurological Exam Neurological Exam: Alert, Awake, Oriented x3 Assessment and Plan (1) Hepatitis C antibody positive in blood Status: Acute (2) Cachexia Status: Acute (3) Cardiomyopathy Status: Acute (4) ARF (acute renal failure) Status: Acute (5) Hyperkalemia Status: Acute (6) Metabolic acidosis Status: Acute (7) Symptomatic anemia Status: Acute
--- NOTE | 2017-06-17 15:48 | CP.PCM.PN ---
Subjective - Date & Time of Evaluation Date of Evaluation: 06/17/17 Time of Evaluation: 15:48 - Subjective Subjective: pt is luke and examined, follow up consult is dictated #[id number] Objective - Vital Signs/Intake and Output Vital Signs (last 24 hours): Temp Pulse Resp BP Pulse Ox 97.4 F L 93 H 17 108/60 96 06/17/17 12:00 06/17/17 13:01 06/17/17 13:01 06/17/17 13:01 06/17/17 13:01 Intake and Output: 06/17/17 06/17/17 06:59 18:59 Intake Total 720 820 Output Total 1040 605 Balance -320 215 - Medications Medications: Current Medications Calcitriol (Rocaltrol) 0.25 mcg PO DAILY [facility] Last Admin: 06/17/17 09:07 Dose: 0.25 mcg Calcium Acetate (Phoslo) 667 mg PO TID [facility] Last Admin: 06/17/17 13:45 Dose: 667 mg Docusate Sodium (Colace) 100 mg PO BID [facility] Last Admin: 06/17/17 09:07 Dose: 100 mg Famotidine (Pepcid) 20 mg PO DAILY [facility] Last Admin: 06/17/17 09:07 Dose: 20 mg Sodium Chloride (Sodium Chloride 0.45%) 1,000 mls @ 60 mls/hr IV .[id number] [facility] Last Admin: 06/17/17 09:08 Dose: 60 mls/hr Vitamin B Complex/Vit C/Folic Acid (Nephro-Aleksandra) 1 tab PO 0800 [facility] Last Admin: 06/17/17 08:27 Dose: 1 tab - Labs Labs: 06/17/17 06:24 06/17/17 06:19 PT 14.4 SECONDS (9.7-12.2) H 06/15/17 06:08 INR 1.3 06/15/17 06:08 APTT 39 SECONDS (21-34) H 06/15/17 06:08
--- NOTE | 2017-06-17 18:03 | CP.CCUPN ---
CCU Subjective - Physician Review Events Since Last Encounter (Free Text): 06/17/17 18:02 Patient is a 77-year-old male admitted to the hospital with acute renal insufficiency, bilateral hydronephrosis, thrombocytopenia, bladder mass, initially admitted with the acute renal failure, secondary to acute bladder obstruction. Patient also placed on sodium bicarbonate drip. Currently improving. He is making urine. Bilateral hydronephrosis still noted. Patient was seen by urologist, tacking stitch remover. He is complaining of bilateral lower extremity pain on and off. On examination: Not in any distress. Vital signs stable. Chest good air entry regular heart sound nontender abdomen extended is edema noted Branch Sales Manager and tacking stitch remover spoke to the patient. Patient is currently stable at this time. Assessment and recommendation: 77-year-old male admitted with acute urinary retention, secondary to possible bladder mass. Bilateral hydronephrosis, with renal insufficiency. Currently improving. Malignancy possible. Patient is clinical stable. Renal function improving. Clinical stable for transfer to the floor Patient will need biopsy of the bladder mass, and the possible intervention including stent placement. Urology, and the nephrology follow-up. Spoke to the tacking stitch remover. Will follow the patient CCU Objective - Vital Signs / Intake & Output Intake and Output (Last 8hrs): Intake & Output 06/17/17 06/17/17 06/17/17 06:59 14:59 22:59 Intake Total 480 820 Output Total 680 605 Balance -200 215 Weight 106 lb Intake: Intake, IV Amount 480 420 Left Forearm 480 420 Oral 400 Output: Urine 680 605 Urethral (Beck) 680 605 Other: # Bowel Movements 1 - Physical Exam Head: Positive for: Atraumatic, Normocephalic Pupils: Positive for: PERRL Extroacular Muscles: Positive for: EOMI Conjunctiva: Negative for: Icteric Ears: Positive for: Normal, NORMAL TM Mouth: Positive for: Dry Pharnyx: Positive for: Normal. Negative for: ERYTHEMA Nose (Internal): Positive for: Normal Inspection Neck: Positive for: Normal Range of Motion Respiratory/Chest: Positive for: Clear to Auscultation, Decreased Breath Sounds. Negative for: Respiratory Distress, Accessory Muscle Use, Wheezes, Rales, Retracting, Rhonchi Cardiovascular: Positive for: Regular Rate and Rhythm, Normal S1, S2, Peripheal Pulses Present, Tachycardic. Negative for: Murmurs, Irregular Rhythm, Bradycardic Abdomen: Positive for: Normal Bowel Sounds. Negative for: Tenderness, Distention, Rebound, Guarding Back: Positive for: Normal Inspection. Negative for: CVA Tenderness Upper Extremity: Negative for: Edema, Swelling Lower Extremity: Positive for: Edema (improving), Swelling (improving). Negative for: Normal Inspection Neurological: Positive for: Speech Normal Skin: Positive for: Warm, Dry, Normal Color, Other (LE edema and chronic skin changes) Psychiatric: Positive for: Alert, Oriented x 3, Normal Insight, Lethargic - Medications Active Medications: Active Medications Generic Name Dose Route Start Last Admin Trade Name Freq PRN Reason Stop Dose Admin Calcitriol 0.25 mcg 06/14/17 10:00 06/17/17 09:07 Rocaltrol PO 0.25 mcg DAILY [facility] Administration Calcium Acetate 667 mg 06/10/17 18:00 06/17/17 13:45 Phoslo PO 667 mg TID [facility] Administration Docusate Sodium 100 mg 06/16/17 14:00 06/17/17 09:07 Colace PO 100 mg BID [facility] Administration Famotidine 20 mg 06/15/17 10:00 06/17/17 09:07 Pepcid PO 20 mg DAILY [facility] Administration Sodium Chloride 1,000 mls @ 60 mls/hr 06/16/17 15:30 06/17/17 09:08 Sodium Chloride 0.45% IV 60 mls/hr .[id number] [facility] Administration Vitamin B Complex/Vit C/Folic Acid 1 tab 06/11/17 08:00 06/17/17 08:27 Nephro-Aleksandra PO 1 tab 0800 [facility] Administration - Patient Studies Lab Studies: Lab Studies 06/17/17 06/17/17 06/16/17 Range/Units 06:24 06:19 06:20 WBC 6.7 (4.8-10.8) K/uL RBC 3.32 L (4.40-5.90) Mil/uL Hgb 10.7 L (12.0-18.0) g/dL Hct 32.1 L (35.0-51.0) % MCV 96.6 H (80.0-94.0) fL MCH 32.1 H (27.0-31.0) pg MCHC 33.2 (33.0-37.0) g/dL RDW 19.4 H (11.5-14.5) % Plt Count 97 L (130-400) K/uL MPV 9.8 (7.2-11.7) fL Neut % (Auto) 71.5 (50.0-75.0) % Lymph % (Auto) 20.1 (20.0-40.0) % [place] % (Auto) 7.2 (0.0-10.0) % Eos % (Auto) 0.9 (0.0-4.0) % Baso % (Auto) 0.3 (0.0-2.0) % Neut # 4.8 (1.8-7.0) K/uL Lymph # 1.4 (1.0-4.3) K/uL [place] # 0.5 (0.0-0.8) K/uL Eos # 0.1 (0.0-0.7) K/uL Baso # 0.0 (0.0-0.2) K/uL Sodium 137 (132-148) mmol/L Potassium 4.6 (3.6-5.2) mmol/L Chloride 101 (98-107) mmol/L Carbon Dioxide 23 (22-30) mmol/L Anion Gap 18 (10-20) BUN 94 H (9-20) mg/dL Creatinine 5.3 H (0.8-1.5) MG/DL Est GFR ( Amer) 13 Est GFR (Non-Af Amer) 11 Random Glucose 82 (75-110) mg/dL Calcium 7.1 L (8.6-10.4) mg/dl Phosphorus 4.2 (2.5-4.5) mg/dL Magnesium 1.6 (1.6-2.3) mg/dL Total Bilirubin 0.6 (0.2-1.3) mg/dL AST 69 H D (17-59) U/L ALT 97 H (21-72) U/L Alkaline Phosphatase 94 (38-126) U/L Total Protein 6.1 L (6.3-8.3) g/dL Albumin 2.2 L (3.5-5.0) g/dL Globulin 3.9 (2.2-3.9) gm/dL Albumin/Globulin Ratio 0.6 L (1.0-2.1) Rheum Arthritis Panel Negative (NEGATIVE) HCV RNA Qual (TMA) 06/12/17 Range/Units 07:44 WBC (4.8-10.8) K/uL RBC (4.40-5.90) Mil/uL Hgb (12.0-18.0) g/dL Hct (35.0-51.0) % MCV (80.0-94.0) fL MCH (27.0-31.0) pg MCHC (33.0-37.0) g/dL RDW (11.5-14.5) % Plt Count (130-400) K/uL MPV (7.2-11.7) fL Neut % (Auto) (50.0-75.0) % Lymph % (Auto) (20.0-40.0) % [place] % (Auto) (0.0-10.0) % Eos % (Auto) (0.0-4.0) % Baso % (Auto) (0.0-2.0) % Neut # (1.8-7.0) K/uL Lymph # (1.0-4.3) K/uL [place] # (0.0-0.8) K/uL Eos # (0.0-0.7) K/uL Baso # (0.0-0.2) K/uL Sodium (132-148) mmol/L Potassium (3.6-5.2) mmol/L Chloride (98-107) mmol/L Carbon Dioxide (22-30) mmol/L Anion Gap (10-20) BUN (9-20) mg/dL Creatinine (0.8-1.5) MG/DL Est GFR ( Amer) Est GFR (Non-Af Amer) Random Glucose (75-110) mg/dL Calcium (8.6-10.4) mg/dl Phosphorus (2.5-4.5) mg/dL Magnesium (1.6-2.3) mg/dL Total Bilirubin (0.2-1.3) mg/dL AST (17-59) U/L ALT (21-72) U/L Alkaline Phosphatase (38-126) U/L Total Protein (6.3-8.3) g/dL Albumin (3.5-5.0) g/dL Globulin (2.2-3.9) gm/dL Albumin/Globulin Ratio (1.0-2.1) Rheum Arthritis Panel (NEGATIVE) HCV RNA Qual (TMA) Not detected Laboratory Results - last 24 hr 06/12/17 06/16/17 06/17/17 07:44 06:20 06:19 WBC RBC Hgb Hct MCV MCH MCHC RDW Plt Count MPV Neut % (Auto) Lymph % (Auto) [place] % (Auto) Eos % (Auto) Baso % (Auto) Neut # Lymph # [place] # Eos # Baso # Sodium 137 Potassium 4.6 Chloride 101 Carbon Dioxide 23 Anion Gap 18 BUN 94 H Creatinine 5.3 H Est GFR ( Amer) 13 Est GFR (Non-Af Amer) 11 Random Glucose 82 Calcium 7.1 L Phosphorus 4.2 Magnesium 1.6 Total Bilirubin 0.6 AST 69 H D ALT 97 H Alkaline Phosphatase 94 Total Protein 6.1 L Albumin 2.2 L Globulin 3.9 Albumin/Globulin Ratio 0.6 L Rheum Arthritis Panel Negative HCV RNA Qual (TMA) Not detected 06/17/17 06:24 WBC 6.7 RBC 3.32 L Hgb 10.7 L Hct 32.1 L MCV 96.6 H MCH 32.1 H MCHC 33.2 RDW 19.4 H Plt Count 97 L MPV 9.8 Neut % (Auto) 71.5 Lymph % (Auto) 20.1 [place] % (Auto) 7.2 Eos % (Auto) 0.9 Baso % (Auto) 0.3 Neut # 4.8 Lymph # 1.4 [place] # 0.5 Eos # 0.1 Baso # 0.0 Sodium Potassium Chloride Carbon Dioxide Anion Gap BUN Creatinine Est GFR ( Amer) Est GFR (Non-Af Amer) Random Glucose Calcium Phosphorus Magnesium Total Bilirubin AST ALT Alkaline Phosphatase Total Protein Albumin Globulin Albumin/Globulin Ratio Rheum Arthritis Panel HCV RNA Qual (TMA) Fingerstick Blood Sugar Results: 109 Critical Care Progress Note - Nutrition Nutrition: Nutrition Category Date Time Status Renal Diet [DIET] Diets 06/10/17 Dinner Active
--- NOTE | 2017-06-17 20:02 | CP.PCM.PN ---
Subjective - Date & Time of Evaluation Date of Evaluation: 06/17/17 Time of Evaluation: 15:10 - Subjective Subjective: Patient seen and evaluated Denies chest pain and dyspnea Objective - Vital Signs/Intake and Output Vital Signs (last 24 hours): Temp Pulse Resp BP Pulse Ox 97.5 F L 99 H 17 106/61 96 06/17/17 16:00 06/17/17 19:00 06/17/17 19:00 06/17/17 19:00 06/17/17 19:00 Intake and Output: 06/17/17 06/18/17 18:59 06:59 Intake Total 938 Output Total 1005 Balance -67 - Medications Medications: Current Medications Calcitriol (Rocaltrol) 0.25 mcg PO DAILY [facility] Last Admin: 06/17/17 09:07 Dose: 0.25 mcg Calcium Acetate (Phoslo) 667 mg PO TID [facility] Last Admin: 06/17/17 18:14 Dose: 667 mg Docusate Sodium (Colace) 100 mg PO BID [facility] Last Admin: 06/17/17 18:14 Dose: 100 mg Famotidine (Pepcid) 20 mg PO DAILY [facility] Last Admin: 06/17/17 09:07 Dose: 20 mg Sodium Chloride (Sodium Chloride 0.45%) 1,000 mls @ 60 mls/hr IV .[id number] [facility] Last Admin: 06/17/17 09:08 Dose: 60 mls/hr Vitamin B Complex/Vit C/Folic Acid (Nephro-Aleksandra) 1 tab PO 0800 [facility] Last Admin: 06/17/17 08:27 Dose: 1 tab - Labs Labs: 06/17/17 06:24 06/17/17 06:19 PT 14.4 SECONDS (9.7-12.2) H 06/15/17 06:08 INR 1.3 06/15/17 06:08 APTT 39 SECONDS (21-34) H 06/15/17 06:08 - Head Exam Head Exam: ATRAUMATIC, NORMAL INSPECTION - Eye Exam Eye Exam: EOMI, PERRL Pupil Exam: NORMAL ACCOMODATION - ENT Exam ENT Exam: Mucous Membranes Moist - Neck Exam Neck Exam: Full ROM, Normal Inspection - Respiratory Exam Respiratory Exam: NORMAL BREATHING PATTERN - Cardiovascular Exam Cardiovascular Exam: REGULAR RHYTHM, +S1, +S2 - GI/Abdominal Exam GI & Abdominal Exam: Soft, Normal Bowel Sounds - Neurological Exam Neurological Exam: Alert, Awake, CN II-XII Intact, Oriented x3 - Skin Skin Exam: Warm Assessment and Plan - Assessment and Plan (Free Text) Assessment: renal failure cardiomyopathy - etiology to be determined Hep C 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
--- NOTE | 2017-06-17 21:06 | PN ---
DATE: FOLLOWUP RENAL CONSULTATION LOCATION: The patient is located in ICU, bed 10. REQUESTED BY: Akhil Wang MD REASON FOR FOLLOWUP: Acute renal failure, chronic kidney disease and obstructive uropathy. SUBJECTIVE: Mr. 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 The patient has a good urine output, not in acute distress, on gentle IV hydration, no complains. No chest pain. No palpitations. No fever. No cough. No nausea, vomiting or diarrhea. PHYSICAL EXAMINATION GENERAL: Mr. Palmer is 77 years old elderly, very cachectic male, not in distress. VITAL SIGNS: As follows; blood pressure 108/60, pulse 93, respirations 17, saturation 96% and temperature is 97.4. HEENT: Pupils are normal and reactive to light and accommodation. Conjunctivae pink. Sclerae anicteric. Tongue is moist. Trachea is midline. CARDIOVASCULAR: [place] at the fifth intercostal space, midclavicular line. S1 and S2 audible. No murmur or gallop. LUNGS: Symmetric on both sides. Decreased breath sounds at bases. ABDOMEN: Normal in appearance, slightly distended soft, tympanic. No guarding. No rigidity. No hepatosplenomegaly. CENTRAL NERVOUS SYSTEM: The patient is alert, awake, oriented x3. Nonfocal neuro examination. Cranial nerves II through XII grossly intact. Sensory and motor system is within normal limits. EXTREMITIES: No cyanosis. No clubbing. No edema. The patient has chronic skin changes due to stasis and edema. CURRENT MEDICATIONS: Include as follows; Colace 100 mg p.o. b.i.d., Nephro-Aleksandra 1 tablet daily, Pepcid 20 mg p.o. daily, calcium acetate 667 mg p.o. t.i.d., Rocaltrol 0.25 mcg p.o. daily., IV fluid half normal saline at 60 mL per hour. LABORATORY DATA: Include as follows as of 06/17/2017; WBC 6.7, hemoglobin 10.7, hematocrit is 32.1 and platelets 97. Sodium 127, potassium 4.6, chloride 101, CO2 of 23, BUN 94, creatinine 5.3, glucose 82, calcium 7.1, phosphorus 4.2, magnesium 1.6, total bili 0.6, AST 69, ALT 97, alkaline phosphatase is 94, total protein 6.1, albumin is 2.2, and globulin 3.9. Rheumatoid arthritis panel is negative as of 06/16/2017. Hepatitis C, viral RNA and PCR is negative not detected. In summary, Mr. Palmer is 77 years old elderly, very cachectic male with history of questionable nephrolithiasis, was admitted with severe anemia, cachexia, renal failure, metabolic acidosis, hyperkalemia, obstructive uropathy status post Beck catheter placement on admission and drained 2 L on admission and with good urine output and also bladder mass bilateral hydronephrosis right more than the left. 1. Renal failure, acute on chronic kidney disease secondary to obstructive uropathy secondary to bilateral hydronephrosis secondary to bladder mass. 2. Bladder mass rule out malignancy. 3. Cardiomyopathy. 4. Anemia rule out multiple myeloma. PLAN: We will continue gentle IV hydration and follow with urology. The patient may benefit from the percutaneous nephrostomy on the left side. The patient will need cystoscopy and biopsy of the bladder and also possible may need bilateral ureteric stents for hydronephrosis. We also add lactulose 30 mL p.o. daily p.r.n. and continue physical therapy at bedside. Thank you for allowing me to participate in your patient's care. Ruthann Duarte MD
[2017-06-18] MEDS: Sodium Chloride 0.45% 1,000 ML IV SCH ×2 (01:30→18:21)
[2017-06-18] MEDS: Multivitamin Vitamin B Complex (Nephro-Vite) Tab PO SCH (08:59)
--- NOTE | 2017-06-18 11:14 | CP.PCM.PN ---
Subjective - Date & Time of Evaluation Date of Evaluation: 06/18/17 Time of Evaluation: 11:13 - Subjective Subjective: pt is seen and examined, follow up consult is dictated #[id number] check cbc, cmp today follow up with urology for possible cysto and stent or PCN Objective - Vital Signs/Intake and Output Vital Signs (last 24 hours): Temp Pulse Resp BP Pulse Ox 97.8 F 96 H 19 105/66 96 06/18/17 08:39 06/18/17 08:39 06/18/17 08:39 06/18/17 08:39 06/18/17 08:39 Intake and Output: 06/18/17 06/18/17 06:59 18:59 Intake Total 720 60 Output Total 500 200 Balance 220 -140 - Medications Medications: Current Medications Calcitriol (Rocaltrol) 0.25 mcg PO DAILY [facility] Last Admin: 06/18/17 09:52 Dose: 0.25 mcg Calcium Acetate (Phoslo) 667 mg PO TID [facility] Last Admin: 06/18/17 09:52 Dose: 667 mg Docusate Sodium (Colace) 100 mg PO BID [facility] Last Admin: 06/18/17 09:52 Dose: 100 mg Famotidine (Pepcid) 20 mg PO DAILY [facility] Last Admin: 06/18/17 09:52 Dose: 20 mg Sodium Chloride (Sodium Chloride 0.45%) 1,000 mls @ 60 mls/hr IV .[id number] [facility] Last Admin: 06/18/17 01:30 Dose: 60 mls/hr Tamsulosin HCl (Flomax) 0.4 mg PO DAILY [facility] Vitamin B Complex/Vit C/Folic Acid (Nephro-Aleksandra) 1 tab PO 0800 [facility] Last Admin: 06/18/17 08:59 Dose: 1 tab - Labs Labs: 06/17/17 06:24 06/17/17 06:19 PT 14.4 SECONDS (9.7-12.2) H 06/15/17 06:08 INR 1.3 06/15/17 06:08 APTT 39 SECONDS (21-34) H 06/15/17 06:08
[2017-06-18 12:41] LABS: POTASSIUM 4.5 mmol/L (3.6-5.2)
[2017-06-18] MEDS: Acetaminophen-Codeine 300/30 mg Tab PO PRN (12:41)
[2017-06-18 12:44] LABS: ALB/GLOB RATIO 0.6 (1.0-2.1); BILIRUBIN,TOTAL 0.5 mg/dL (0.2-1.3); CALCIUM 7.3 mg/dl (8.6-10.4)
[2017-06-18 13:11] LABS: RBC URINE 15 /hpf (0-3); URINE BILIRUBIN NEGATIVE (NEGATIVE); URINE BLOOD 1+ (NEGATIVE); URINE COLOR Straw (YELLOW); URINE GLUCOSE (UA) NORMAL (Normal); URINE KETONE NEGATIVE (NEGATIVE); URINE LEUKOCYTE ESTERASE 3+ Leu/uL (Negative); URINE PROTEIN 1+ mg/dL (NEGATIVE); URINE UROBILINOGEN NORMAL mg/dL (0.2-1.0); WBC URINE 20 /hpf (0-5)
--- NOTE | 2017-06-18 13:46 | CP.PCM.PN ---
Subjective - Date & Time of Evaluation Date of Evaluation: 06/18/17 Time of Evaluation: 13:45 - Subjective Subjective: CLINICALLY REMAINS SAME NO IMPROVEMENT ON CXR WITH EFFUSION AND INFILTRATE AWAITING FROM UROLOGIST TO PLAN FURTHER INTERVENTION PULDustin KHOURY Objective - Vital Signs/Intake and Output Vital Signs (last 24 hours): Temp Pulse Resp BP Pulse Ox 97.8 F 96 H 19 105/66 96 06/18/17 08:39 06/18/17 08:39 06/18/17 08:39 06/18/17 08:39 06/18/17 08:39 Intake and Output: 06/18/17 06/18/17 11:59 23:59 Intake Total 780 Output Total 700 Balance 80 - Medications Medications: Current Medications Acetaminophen/Codeine Phosphate (Tylenol/Codeine 300 Mg/30 Mg) 1 ea PO Q6 PRN PRN Reason: Pain, moderate (4-7) Stop: 06/19/17 23:59 Last Admin: 06/18/17 12:41 Dose: 1 ea Calcitriol (Rocaltrol) 0.25 mcg PO DAILY [facility] Last Admin: 06/18/17 09:52 Dose: 0.25 mcg Calcium Acetate (Phoslo) 667 mg PO TID [facility] Last Admin: 06/18/17 13:06 Dose: 667 mg Docusate Sodium (Colace) 100 mg PO BID [facility] Last Admin: 06/18/17 09:52 Dose: 100 mg Famotidine (Pepcid) 20 mg PO DAILY [facility] Last Admin: 06/18/17 09:52 Dose: 20 mg Sodium Chloride (Sodium Chloride 0.45%) 1,000 mls @ 60 mls/hr IV .[id number] [facility] Last Admin: 06/18/17 01:30 Dose: 60 mls/hr Tamsulosin HCl (Flomax) 0.4 mg PO DAILY [facility] Last Admin: 06/18/17 12:00 Dose: 0.4 mg Vitamin B Complex/Vit C/Folic Acid (Nephro-Aleksandra) 1 tab PO 0800 [facility] Last Admin: 06/18/17 08:59 Dose: 1 tab - Labs Labs: 06/17/17 06:24 06/18/17 12:17 PT 14.4 SECONDS (9.7-12.2) H 06/15/17 06:08 INR 1.3 06/15/17 06:08 APTT 39 SECONDS (21-34) H 06/15/17 06:08
--- NOTE | 2017-06-18 13:47 | PN ---
DATE: 06/18/2017 SUBJECTIVE: The patient is now out of the ICU and is resting comfortably. His BUN and creatinine continue to drop just with Beck catheterization. On 06/17/2017, his BUN was 94 and his creatinine was 5.3 down from 96 and 5.8 on 06/16/2017. PHYSICAL EXAMINATION: ABDOMEN: Soft, nondistended, nontender. No CVA tenderness. No suprapubic tenderness. His Beck catheter is currently draining jane urine well. He drained 500 mL overnight. IMPRESSION: 1. Urinary retention. 2. Renal failure slowly improving with just applying Beck catheterization. 3. Bladder mass versus intravesical prostate pushing up the bladder. 4. Bilateral hydronephrosis possibly secondary to outlet obstruction. The patient had a renal scan done on 06/15/2017, and the scan was compare to the previous CT dated at 06/14/2017 and also previous ultrasound dated 06/09/2017. The the study suggested a significant decrease in the function of both kidneys worse on the right and [id number] bilateral hydronephrosis and retention of the radiotracer in the renal cortex and in the left renal pelvis, but the function of the left kidney seems to be better than the right kidney at this time. PLAN: Plan for this patient will be to continue to observe the patient just with Beck catheterization at this time to see if his BUN and creatinine continue to drop just with Beck catheterization. Eventually, the patient will need a cystoscopy to evaluate the presumed bladder mass versus intravesical prostate. We will also send the urine for a cytology and analysis and with followup culture and sensitivity. Lui Darby MD MTD[facility]amond
[2017-06-18 17:20] LABS: FREE KAPPA SERUM 248.3 mg/L (3.3-19.4); FREE LAMBDA SERUM 257.1 mg/L (5.7-26.3)
--- NOTE | 2017-06-19 01:29 | CON ---
FOLLOWUP RENAL CONSULTATION LOCATION: The patient is located in room 564, bed 8. REQUESTED BY: Akhil Wang MD. REASON FOR FOLLOWUP: Acute renal failure, chronic kidney disease, obstructive uropathy and bilateral hydronephrosis for further evaluation. SUBJECTIVE: Mr. Palmer is a 77 years old elderly very cachectic male with no significant past medical history except questionable nephrolithiasis who was admitted with a chief complaint of severe weakness and malnourished and also very cachectic and increased BUN creatinine of more than 150/10 and hemoglobin about 5.5 and requiring an admission to ICU and transfusion of 4 units of packed RBC and also Beck catheter placement for obstructive uropathy. The patient is not in acute distress. Denies any chest pain or palpitation. Denies any fever or cough. No nausea, vomiting or diarrhea. The patient does complain of pain in the left big toe. PHYSICAL EXAMINATION GENERAL: Mr. Palmer is a 77 years old elderly male, moderately built, moderately nourished, not in any acute distress. VITAL SIGNS: Blood pressure this morning was 105/66, pulse 96, respirations 19, temperature 97.8, and saturation 96%. HEENT: Pupils are normally reactive to light and accommodation. Conjunctivae pink. Sclerae anicteric. Tongue is moist. Trachea is midline. LUNGS: Symmetric on both sides. Bilateral breath sounds present. Bilateral basal crackles present. CARDIOVASCULAR SYSTEM: [place] at the fifth intercostal space, midclavicular line. S1 and S2 audible. No murmur or gallop. ABDOMEN: Normal in appearance. Soft, tympanic. No guarding. No hepatosplenomegaly. CENTRAL NERVOUS SYSTEM: The patient is alert, awake, oriented x2-3. Sensory and motor system is grossly within normal limits. EXTREMITIES: No cyanosis. No clubbing. No edema. The patient has chronic skin changes from edema and tenderness of the left big toe. CURRENT MEDICATIONS: Include as follows; Colace 100 mg p.o. b.i.d., lactulose 30 g p.o. x1, Flomax 0.4 mg daily, and Nephro-Aleksandra 1 tablet daily, calcium acetate 667 mg p.o. t.i.d., Rocaltrol 0.25 mcg p.o. daily., B12 1000 mcg IM daily, IV fluid half normal saline at 60 mL per hour, and Tylenol #3 one tablet q. 6 hours p.r.n. for pain. LABORATORY DATA: Include as follows as of 06/18/2017: Sodium 136, potassium 4.5, chloride 102, CO2 of 20, BUN is 98, creatinine is 5.0, GFR is about 11 mL and glucose 135, calcium 7.3, total bilirubin 0.5, AST 38, ALT 65, alkaline phosphatase 91, total protein 6.0 and albumin is 2.2, globulin is 3.8. Urinalysis straw-colored, clear, pH 7, specific gravity 1.010, protein 1+. Glucose normal, ketones negative, blood 1+, nitrites negative. Bilirubin negative. Urobilinogen normal. Leukocyte esterase 3+, wbcs 20, rbcs 15, budding yeast is few. Free kappa light chains is 248.3 and free lambda chain is 257.1 and free kappa and lambda ratio is 0.97. ASSESSMENT: In summary, Mr. Palmer is about 77 years old, elderly, very cachectic male with a history of cardiomyopathy exam with left ventricular function 10-15%, bilateral hydroureteronephrosis, bladder mass, renal failure, anemia, secondary hyperparathyroidism. IMPRESSION: 1. Renal failure, really acute on chronic. 2. Bilateral hydroureteronephrosis, as etiology is not clear rule out bladder cancer in the presence of a bladder mass. 3. Secondary hyperparathyroidism. 4. Cardiomyopathy. 5. Rule out urinary tract infection. PLAN: Follow up urine culture reports. Follow up with ID for a possible antibody coverage for possible UTI and follow up with urology for further management and follow up BMP daily. Continue Tylenol #3 p.r.n. for pain in the left leg and check uric acid level and also continue lactulose and Colace for constipation. We will follow with you. Thank you for allowing me to participate in your patient's care. Ruthann Duarte MD
[2017-06-19 07:29] LABS: BASO % 0.3 % (0.0-2.0); EOS # 0.1 K/uL (0.0-0.7); EOS % 0.6 % (0.0-4.0); HEMATOCRIT 30.7 % (35.0-51.0); LYMPH # 1.3 K/uL (1.0-4.3); LYMPH % 14.5 % (20.0-40.0); MEAN CORPUSCULAR HEMOGLOBIN 31.7 pg (27.0-31.0); MEAN CORPUSCULAR HGB CONC 32.7 g/dL (33.0-37.0); MEAN PLATELET VOLUME 9.5 fL (7.2-11.7); MONO # 0.5 K/uL (0.0-0.8); MONO % 5.7 % (0.0-10.0); NRBC % 0.1 % (0.0-2.0); RED CELL DISTRIBUTION WIDTH 19.5 % (11.5-14.5); WHITE BLOOD COUNT 9.1 K/uL (4.8-10.8)
[2017-06-19 07:42] LABS: POTASSIUM 5.2 mmol/L (3.6-5.2)
[2017-06-19 07:44] LABS: ALB/GLOB RATIO 0.6 (1.0-2.1); BILIRUBIN,TOTAL 0.5 mg/dL (0.2-1.3); TOTAL PROTEIN 6.1 g/dL (6.3-8.3)
[2017-06-19 07:45] LABS: CALCIUM 7.3 mg/dl (8.6-10.4); URIC ACID 7.4 mg/dL (3.5-8.5)
[2017-06-19] MEDS: Multivitamin Vitamin B Complex (Nephro-Vite) Tab PO SCH (08:57)
[2017-06-19] MEDS: Sodium Chloride 0.45% 1,000 ML IV SCH (10:21)
[2017-06-19] MEDS: Acetaminophen-Codeine 300/30 mg Tab PO PRN (10:27)
--- NOTE | 2017-06-19 10:38 | CP.PCM.CON ---
History of Present Illness - History of Present Illness History of Present Illness: reason for consultation: bilateral pleural effusion 77-year-old male was admitted on 06/09 with severe cachexia and very high BUN and creatini and was found to have obstructive uropat, metabolic acidosis, hyperkalemia. Patient drained 2 L of urine after the Beck catheter was placed and subsequently had good urine output. Patient also was found to have bladder mass with hydroureteronephrosis and urology consult was obtained and awaiting bladder biopsy/stent placement. CAT scan of the chest showed large bilateral pleural effusion. Patient denies shortness of breath, denies cough, denies fever chills. Review of Systems - Review of Systems All systems: reviewed and no additional remarkable complaints except (weakness and lethargy/weight loss) Past Patient History - Past Medical History & Family History Past Medical History?: No - Past Social History Smoking Status: Never Smoked - MUSCULOSKELETAL/RHEUMATOLOGICAL Hx Falls: Yes - PSYCHIATRIC Hx Substance Use: No - SURGICAL HISTORY Hx Surgeries: No - ANESTHESIA Hx Anesthesia: No Hx Anesthesia Reactions: No Hx Malignant Hyperthermia: No Has any member of the family had a problem w/ anesthesia?: No Meds Allergies/Adverse Reactions: Allergies Allergy/AdvReac Type Severity Reaction Status Date / Time seasonal allergies Allergy Uncoded 06/09/17 16:45 - Medications Medications: Current Medications Acetaminophen/Codeine Phosphate (Tylenol/Codeine 300 Mg/30 Mg) 1 ea PO Q6 PRN PRN Reason: Pain, moderate (4-7) Stop: 06/19/17 23:59 Last Admin: 06/19/17 10:27 Dose: 1 ea Calcitriol (Rocaltrol) 0.25 mcg PO DAILY [facility] Last Admin: 06/19/17 10:21 Dose: 0.25 mcg Calcium Acetate (Phoslo) 667 mg PO TID [facility] Last Admin: 06/19/17 10:20 Dose: 667 mg Cyanocobalamin (Vitamin B12 1000 Mcg/Ml Inj) 1,000 mcg SC DAILY [facility] Stop: 06/23/17 23:59 Last Admin: 06/19/17 10:21 Dose: 1,000 mcg Docusate Sodium (Colace) 100 mg PO BID [facility] Last Admin: 06/19/17 10:22 Dose: Not Given Famotidine (Pepcid) 20 mg PO DAILY [facility] Last Admin: 06/19/17 10:21 Dose: 20 mg Sodium Chloride (Sodium Chloride 0.45%) 1,000 mls @ 60 mls/hr IV .[id number] [facility] Last Admin: 06/19/17 10:21 Dose: 60 mls/hr Lactulose (Enulose) 30 gm PO HS [facility] Last Admin: 06/18/17 22:08 Dose: Not Given Tamsulosin HCl (Flomax) 0.4 mg PO DAILY [facility] Last Admin: 06/19/17 10:21 Dose: 0.4 mg Vitamin B Complex/Vit C/Folic Acid (Nephro-Aleksandra) 1 tab PO 0800 [facility] Last Admin: 06/19/17 08:57 Dose: 1 tab Physical Exam - Head Exam Head Exam: ATRAUMATIC, NORMOCEPHALIC - ENT Exam ENT Exam: Mucous Membranes Moist - Neck Exam Neck exam: Positive for: Normal Inspection - Respiratory Exam Respiratory Exam: Decreased Breath Sounds - Cardiovascular Exam Cardiovascular Exam: REGULAR RHYTHM - GI/Abdominal Exam GI & Abdominal Exam: Normal Bowel Sounds, Soft - Extremities Exam Extremities exam: Positive for: normal inspection - Neurological Exam Neurological exam: Alert Results - Vital Signs Recent Vital Signs: Last Vital Signs Temp 98 F 06/19/17 07:51 Pulse 109 H 06/19/17 08:16 Resp 20 06/19/17 07:51 BP 108/65 06/19/17 07:51 Pulse Ox 95 06/19/17 07:51 - Labs Result Diagrams: 06/19/17 07:13 06/19/17 07:13 Labs: Laboratory Results - last 24 hr 06/15/17 06/18/17 06/18/17 06:10 12:17 12:59 WBC RBC Hgb Hct MCV MCH MCHC RDW Plt Count MPV Neut % (Auto) Lymph % (Auto) [place] % (Auto) Eos % (Auto) Baso % (Auto) Neut # Lymph # [place] # Eos # Baso # Sodium 136 Potassium 4.5 Chloride 102 Carbon Dioxide 20 L Anion Gap 19 BUN 98 H Creatinine 5.0 H Est GFR ( Amer) 14 Est GFR (Non-Af Amer) 11 Random Glucose 135 H Uric Acid Calcium 7.3 L Total Bilirubin 0.5 AST 38 ALT 65 Alkaline Phosphatase 91 Total Protein 6.0 L Albumin 2.2 L Globulin 3.8 Albumin/Globulin Ratio 0.6 L Urine Color Straw Urine Clarity Clear Urine pH 7.0 Ur Specific [place] 1.010 Urine Protein 1+ H Urine Glucose (UA) Normal Urine Ketones Negative Urine Blood 1+ H Urine Nitrate Negative Urine Bilirubin Negative Urine Urobilinogen Normal Ur Leukocyte Esterase 3+ H Urine WBC (Auto) 20 H Urine RBC (Auto) 15 H Urine Yeast (Budding) Few H Free [place] Light Chains 248.3 H Free Lambda Light Chain 257.1 H Free [place]/Lambda Ratio 0.97 06/19/17 06/19/17 07:13 07:13 WBC 9.1 RBC 3.17 L Hgb 10.1 L Hct 30.7 L MCV 97.0 H MCH 31.7 H MCHC 32.7 L RDW 19.5 H Plt Count 103 L MPV 9.5 Neut % (Auto) 78.9 H Lymph % (Auto) 14.5 L [place] % (Auto) 5.7 Eos % (Auto) 0.6 Baso % (Auto) 0.3 Neut # 7.2 H Lymph # 1.3 [place] # 0.5 Eos # 0.1 Baso # 0.0 Sodium 135 Potassium 5.2 Chloride 101 Carbon Dioxide 20 L Anion Gap 19 BUN 92 H Creatinine 4.7 H Est GFR ( Amer) 15 Est GFR (Non-Af Amer) 12 Random Glucose 73 L Uric Acid 7.4 Calcium 7.3 L Total Bilirubin 0.5 AST 28 ALT 59 Alkaline Phosphatase 106 Total Protein 6.1 L Albumin 2.2 L Globulin 3.9 Albumin/Globulin Ratio 0.6 L Urine Color Urine Clarity Urine pH Ur Specific [place] Urine Protein Urine Glucose (UA) Urine Ketones Urine Blood Urine Nitrate Urine Bilirubin Urine Urobilinogen Ur Leukocyte Esterase Urine WBC (Auto) Urine RBC (Auto) Urine Yeast (Budding) Free [place] Light Chains Free Lambda Light Chain Free [place]/Lambda Ratio Assessment & Plan (1) Pleural effusion Status: Acute Comment: pleural effusion most likely secondary to hypoalbuminemia and CHF. Consider thoracentesis by IR (patient refusing thoracentesis at this point). Consider AICD and improve nutritional status. Continue medical management (2) ARF (acute renal failure) Status: Acute (3) Hyperkalemia Status: Acute (4) Metabolic acidosis Status: Acute (5) Symptomatic anemia Status: Acute
[2017-06-19 11:34] LABS: IGG,SERUM 2049 mg/dL (694-1618); IGM,SERUM 70 mg/dL (48-271)
--- NOTE | 2017-06-19 11:41 | CP.PCM.PN ---
Subjective - Date & Time of Evaluation Date of Evaluation: 06/19/17 Time of Evaluation: 11:41 - Subjective Subjective: pt is seen and examined follow up consult is dictated #[id number] add diflucan 100 mg po qd'agreed for thoracentesis Objective - Vital Signs/Intake and Output Vital Signs (last 24 hours): Temp Pulse Resp BP Pulse Ox 98 F 109 H 20 108/65 95 06/19/17 07:51 06/19/17 08:16 06/19/17 07:51 06/19/17 07:51 06/19/17 07:51 Intake and Output: 06/19/17 06/19/17 06:59 18:59 Intake Total 880 480 Output Total 1000 Balance -120 480 - Medications Medications: Current Medications Acetaminophen/Codeine Phosphate (Tylenol/Codeine 300 Mg/30 Mg) 1 ea PO Q6 PRN PRN Reason: Pain, moderate (4-7) Stop: 06/19/17 23:59 Last Admin: 06/19/17 10:27 Dose: 1 ea Calcitriol (Rocaltrol) 0.25 mcg PO DAILY [facility] Last Admin: 06/19/17 10:21 Dose: 0.25 mcg Calcium Acetate (Phoslo) 667 mg PO TID [facility] Last Admin: 06/19/17 10:20 Dose: 667 mg Cyanocobalamin (Vitamin B12 1000 Mcg/Ml Inj) 1,000 mcg SC DAILY [facility] Stop: 06/23/17 23:59 Last Admin: 06/19/17 10:21 Dose: 1,000 mcg Docusate Sodium (Colace) 100 mg PO BID [facility] Last Admin: 06/19/17 10:22 Dose: Not Given Famotidine (Pepcid) 20 mg PO DAILY [facility] Last Admin: 06/19/17 10:21 Dose: 20 mg Fluconazole (Diflucan) 100 mg PO DAILY [facility] Sodium Chloride (Sodium Chloride 0.45%) 1,000 mls @ 60 mls/hr IV .[id number] [facility] Last Admin: 06/19/17 10:21 Dose: 60 mls/hr Lactulose (Enulose) 30 gm PO HS [facility] Last Admin: 06/18/17 22:08 Dose: Not Given Tamsulosin HCl (Flomax) 0.4 mg PO DAILY [facility] Last Admin: 06/19/17 10:21 Dose: 0.4 mg Vitamin B Complex/Vit C/Folic Acid (Nephro-Aleksandra) 1 tab PO 0800 [facility] Last Admin: 06/19/17 08:57 Dose: 1 tab - Labs Labs: 06/19/17 07:13 06/19/17 07:13 PT 14.4 SECONDS (9.7-12.2) H 06/15/17 06:08 INR 1.3 06/15/17 06:08 APTT 39 SECONDS (21-34) H 06/15/17 06:08
--- NOTE | 2017-06-19 14:00 | CP.PCM.PN ---
Subjective - Date & Time of Evaluation Date of Evaluation: 06/19/17 Time of Evaluation: 13:58 - Subjective Subjective: CLINICALLY SAME CR. 4.7 FOR THORACENTASIS CARDIAC STATUS STABLE PAIN IN TOES CHECK URIC ACID CONSTIPATION ON LACTULOSE Objective - Vital Signs/Intake and Output Vital Signs (last 24 hours): Temp Pulse Resp BP Pulse Ox 98 F 102 H 20 108/65 95 06/19/17 07:51 06/19/17 12:00 06/19/17 07:51 06/19/17 07:51 06/19/17 07:51 Intake and Output: 06/19/17 06/19/17 11:59 23:59 Intake Total 480 Output Total 1000 Balance -520 - Medications Medications: Current Medications Acetaminophen/Codeine Phosphate (Tylenol/Codeine 300 Mg/30 Mg) 1 ea PO Q6 PRN PRN Reason: Pain, moderate (4-7) Stop: 06/19/17 23:59 Last Admin: 06/19/17 10:27 Dose: 1 ea Calcitriol (Rocaltrol) 0.25 mcg PO DAILY [facility] Last Admin: 06/19/17 10:21 Dose: 0.25 mcg Calcium Acetate (Phoslo) 667 mg PO TID [facility] Last Admin: 06/19/17 13:21 Dose: 667 mg Cyanocobalamin (Vitamin B12 1000 Mcg/Ml Inj) 1,000 mcg SC DAILY [facility] Stop: 06/23/17 23:59 Last Admin: 06/19/17 10:21 Dose: 1,000 mcg Docusate Sodium (Colace) 100 mg PO BID [facility] Last Admin: 06/19/17 10:22 Dose: Not Given Famotidine (Pepcid) 20 mg PO DAILY [facility] Last Admin: 06/19/17 10:21 Dose: 20 mg Fluconazole (Diflucan) 100 mg PO DAILY [facility] Last Admin: 06/19/17 12:43 Dose: 100 mg Sodium Chloride (Sodium Chloride 0.45%) 1,000 mls @ 60 mls/hr IV .[id number] [facility] Last Admin: 06/19/17 10:21 Dose: 60 mls/hr Lactulose (Enulose) 30 gm PO HS [facility] Last Admin: 06/18/17 22:08 Dose: Not Given Tamsulosin HCl (Flomax) 0.4 mg PO DAILY [facility] Last Admin: 06/19/17 10:21 Dose: 0.4 mg Vitamin B Complex/Vit C/Folic Acid (Nephro-Aleksandra) 1 tab PO 0800 [facility] Last Admin: 06/19/17 08:57 Dose: 1 tab - Labs Labs: 06/19/17 07:13 06/19/17 07:13 PT 14.4 SECONDS (9.7-12.2) H 06/15/17 06:08 INR 1.3 06/15/17 06:08 APTT 39 SECONDS (21-34) H 06/15/17 06:08
--- NOTE | 2017-06-19 22:43 | CP.PCM.PN ---
Subjective - Date & Time of Evaluation Date of Evaluation: 06/18/17 Time of Evaluation: 11:20 - Subjective Subjective: Patient seen and evaluated Denies chest pain and dyspnea Objective - Vital Signs/Intake and Output Vital Signs (last 24 hours): Temp Pulse Resp BP Pulse Ox 97.6 F 89 20 103/62 97 06/19/17 15:33 06/19/17 15:33 06/19/17 15:33 06/19/17 15:33 06/19/17 15:33 Intake and Output: 06/19/17 06/20/17 18:59 06:59 Intake Total 1320 Output Total 900 600 Balance 420 -600 - Medications Medications: Current Medications Acetaminophen/Codeine Phosphate (Tylenol/Codeine 300 Mg/30 Mg) 1 ea PO Q6 PRN PRN Reason: Pain, moderate (4-7) Stop: 06/19/17 23:59 Last Admin: 06/19/17 10:27 Dose: 1 ea Calcitriol (Rocaltrol) 0.25 mcg PO DAILY [facility] Last Admin: 06/19/17 10:21 Dose: 0.25 mcg Calcium Acetate (Phoslo) 667 mg PO TID [facility] Last Admin: 06/19/17 18:21 Dose: 667 mg Cyanocobalamin (Vitamin B12 1000 Mcg/Ml Inj) 1,000 mcg SC DAILY [facility] Stop: 06/23/17 23:59 Last Admin: 06/19/17 10:21 Dose: 1,000 mcg Docusate Sodium (Colace) 100 mg PO BID [facility] Last Admin: 06/19/17 18:21 Dose: 100 mg Famotidine (Pepcid) 20 mg PO DAILY [facility] Last Admin: 06/19/17 10:21 Dose: 20 mg Fluconazole (Diflucan) 100 mg PO DAILY [facility] Last Admin: 06/19/17 12:43 Dose: 100 mg Lactulose (Enulose) 30 gm PO HS [facility] Last Admin: 06/19/17 22:16 Dose: 30 gm Tamsulosin HCl (Flomax) 0.4 mg PO DAILY [facility] Last Admin: 06/19/17 10:21 Dose: 0.4 mg Vitamin B Complex/Vit C/Folic Acid (Nephro-Aleksandra) 1 tab PO 0800 [facility] Last Admin: 06/19/17 08:57 Dose: 1 tab - Labs Labs: 06/19/17 07:13 06/19/17 07:13 PT 14.4 SECONDS (9.7-12.2) H 06/15/17 06:08 INR 1.3 06/15/17 06:08 APTT 39 SECONDS (21-34) H 06/15/17 06:08 - Head Exam Head Exam: ATRAUMATIC, NORMAL INSPECTION - Eye Exam Eye Exam: EOMI, PERRL Pupil Exam: NORMAL ACCOMODATION - ENT Exam ENT Exam: Mucous Membranes Moist, Normal Exam - Neck Exam Neck Exam: Full ROM, Normal Inspection - Respiratory Exam Respiratory Exam: Clear to Ausculation Bilateral, NORMAL BREATHING PATTERN - Cardiovascular Exam Cardiovascular Exam: Irregular Rhythm, +S1, +S2 - GI/Abdominal Exam GI & Abdominal Exam: Soft, Normal Bowel Sounds - Extremities Exam Extremities Exam: Full ROM, Normal Capillary Refill - Neurological Exam Neurological Exam: Alert, CN II-XII Intact, Oriented x3 - Psychiatric Exam Psychiatric exam: Normal Mood - Skin Skin Exam: Dry, Warm Assessment and Plan - Assessment and Plan (Free Text) Assessment: 1. Cardiomyopathy with Low EF 2. Hypotension 3. Bladder tumor (?Malignancy) 4. Pleural effusion s/p Tap 5. CKD 6. Marked wsting and weight loss Recommend Bladder tumor biopsy r/o malignancy
--- NOTE | 2017-06-19 22:44 | CP.PCM.PN ---
Subjective - Date & Time of Evaluation Date of Evaluation: 06/19/17 Time of Evaluation: 09:40 - Subjective Subjective: Patient seen and evaluated No cardiac symptoms Objective - Vital Signs/Intake and Output Vital Signs (last 24 hours): Temp Pulse Resp BP Pulse Ox 97.6 F 89 20 103/62 97 06/19/17 15:33 06/19/17 15:33 06/19/17 15:33 06/19/17 15:33 06/19/17 15:33 Intake and Output: 06/19/17 06/20/17 18:59 06:59 Intake Total 1320 Output Total 900 600 Balance 420 -600 - Medications Medications: Current Medications Acetaminophen/Codeine Phosphate (Tylenol/Codeine 300 Mg/30 Mg) 1 ea PO Q6 PRN PRN Reason: Pain, moderate (4-7) Stop: 06/19/17 23:59 Last Admin: 06/19/17 10:27 Dose: 1 ea Calcitriol (Rocaltrol) 0.25 mcg PO DAILY [facility] Last Admin: 06/19/17 10:21 Dose: 0.25 mcg Calcium Acetate (Phoslo) 667 mg PO TID [facility] Last Admin: 06/19/17 18:21 Dose: 667 mg Cyanocobalamin (Vitamin B12 1000 Mcg/Ml Inj) 1,000 mcg SC DAILY [facility] Stop: 06/23/17 23:59 Last Admin: 06/19/17 10:21 Dose: 1,000 mcg Docusate Sodium (Colace) 100 mg PO BID [facility] Last Admin: 06/19/17 18:21 Dose: 100 mg Famotidine (Pepcid) 20 mg PO DAILY [facility] Last Admin: 06/19/17 10:21 Dose: 20 mg Fluconazole (Diflucan) 100 mg PO DAILY [facility] Last Admin: 06/19/17 12:43 Dose: 100 mg Lactulose (Enulose) 30 gm PO HS [facility] Last Admin: 06/19/17 22:16 Dose: 30 gm Tamsulosin HCl (Flomax) 0.4 mg PO DAILY [facility] Last Admin: 06/19/17 10:21 Dose: 0.4 mg Vitamin B Complex/Vit C/Folic Acid (Nephro-Aleksandra) 1 tab PO 0800 [facility] Last Admin: 06/19/17 08:57 Dose: 1 tab - Labs Labs: 06/19/17 07:13 06/19/17 07:13 PT 14.4 SECONDS (9.7-12.2) H 06/15/17 06:08 INR 1.3 06/15/17 06:08 APTT 39 SECONDS (21-34) H 06/15/17 06:08 - Head Exam Head Exam: ATRAUMATIC, NORMAL INSPECTION - Eye Exam Eye Exam: EOMI, PERRL Pupil Exam: NORMAL ACCOMODATION - ENT Exam ENT Exam: Mucous Membranes Moist, Normal Exam - Neck Exam Neck Exam: Full ROM, Normal Inspection - Respiratory Exam Respiratory Exam: NORMAL BREATHING PATTERN - GI/Abdominal Exam GI & Abdominal Exam: Soft, Normal Bowel Sounds - Extremities Exam Extremities Exam: Full ROM - Back Exam Back Exam: NORMAL INSPECTION - Neurological Exam Neurological Exam: Alert, Awake, Oriented x3 - Skin Skin Exam: Warm Assessment and Plan - Assessment and Plan (Free Text) Assessment: 1. Cardiomyopathy with Low EF 2. Hypotension 3. Bladder tumor (?Malignancy) 5. CKD 6. Marked wsting and weight loss Recommend Bladder tumor biopsy r/o malignancy
[2017-06-19] MEDS: Sodium Chloride 0.9% 1,000 ML IV SCH (23:32)
--- NOTE | 2017-06-20 00:08 | CON ---
FOLLOWUP RENAL CONSULTATION DATE: LOCATION: The patient is located in room 564, bed A. REQUESTED BY: Akhil Wang MD. REASON FOR FOLLOWUP: Acute renal failure, chronic kidney disease, obstructive uropathy and cardiomyopathy. 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 The patient denies any complaints of no chest pain, no palpitation. No fever, no cough. The patient was refusing thoracentesis this morning. PHYSICAL EXAMINATION: VITAL SIGNS: His vitals signs this morning as well as blood pressure 108/65, pulse 106, respirations 20, temperature 98, and saturation 95%. Height is 5 feet 5 inches and weight is 100 pounds. GENERAL: Mr. Palmer is a 77-year-old elderly, very cachectic male, not in distress. HEENT: Pupils are normal and reactive to light and accommodation. Conjunctivae pink. Sclerae anicteric. Tongue is moist. Trachea is midline. LUNGS: Symmetric on both sides. Decreased breath sounds on both side. CARDIOVASCULAR: [place] of sixth intercostal space, midclavicular line. S1 and S2 audible. No murmur or gallop. ABDOMEN: Normal in appearance. Soft, tympanic. No guarding. No rigidity. No hepatosplenomegaly. CENTRAL NERVOUS SYSTEM: The patient is alert, awake, and oriented x3. Nonfocal neuro examination. Cranial nerves II through XII grossly intact. Sensory and motor system are within normal limits. EXTREMITIES: No cyanosis. No clubbing. No edema. The patient has chronic skin changes due to no chronic edema. The patient also has tenderness of the left big toe. CURRENT MEDICATIONS: Include as follows; Colace 100 mg p.o. b.i.d., lactulose 30 mL at bedtime, Flomax 0.4 mg p.o. daily, Nephro-Aleksandra 1 tablet daily, famotidine 20 mg daily, PhosLo 667 p.o. t.i.d., Rocaltrol 0.25 mcg daily, IV fluids half normal saline at 60 mL per hour, Tylenol with codeine one tablet q. 6 hours p.r.n., and B12 1000 mcg IM subcu daily. LABORATORY DATA: Includes as follows; as of 06/19/2017, WBC 9.1, hemoglobin 10.1, hematocrit is 30.7, platelets 103. Sodium 135, potassium 5.2, chloride 101, CO2 of 20, BUN 92, creatinine 4.7, and glucose 73. Uric acid 7.4, calcium is 7.3, total bili 0.5, AST 28, ALT 59, alkaline phosphatase 106, and total protein 6.1. Albumin is 2.2 and globulin 3.9. Urine culture positive for yeast as of 06/18/2017. Chest x-ray as of 06/16/2017I; impression, increasing retrocardiac opacity suggestive of atelectasis or pleural infiltrate developing air, increased right pleural effusion is identified with minimal likely left pleural effusion present. In summary, Mr. Palmer is a 77-year-old elderly male with history of questionable nephrolithiasis with severe anemia with hemoglobin of 5.2 on admission status post transfusions of about 4 units of packed RBCs with bilateral hydroureteronephrosis and bladder outlet obstruction status post Beck catheter placement with improving creatinine from 10.5 to 4.7 today, with bilateral air flow pleural effusion and poor LV function. 1. Acute renal failure on chronic kidney disease secondary to obstructive uropathy. 2. Bilateral hydroureteronephrosis. 3. Bladder mass, rule out malignancy. 4. Cardiomyopathy. 5. Bilateral pleural effusion, right more than the left. Now, patient agreed for the thoracentesis by interventional radiologist. Discussed with Dr. Tom Ordoñez. He will plan further thoracentesis by interventional radiologist. Now, we will continue gentle IV hydration and continue to monitor BMP daily and follow with contact center specialist to rule out multiple myeloma. We will follow with you. Thank you for allowing me to participate in your patient's care and also followup with urology for further management. The patient will need cystoscopy and stent placement eventually and we will also add Diflucan for UTI 100 mg p.o. daily. Ruthann Duarte MD
[2017-06-20] MEDS: Sodium Chloride 0.9% 1,000 ML IV SCH (03:23)
[2017-06-20 08:27] LABS: BASO % 0.5 % (0.0-2.0); EOS % 0.6 % (0.0-4.0); HEMATOCRIT 28.8 % (35.0-51.0); LYMPH # 1.5 K/uL (1.0-4.3); LYMPH % 17.3 % (20.0-40.0); MEAN CELL VOLUME 96.5 fL (80.0-94.0); MEAN CORPUSCULAR HEMOGLOBIN 32.1 pg (27.0-31.0); MEAN CORPUSCULAR HGB CONC 33.3 g/dL (33.0-37.0); MEAN PLATELET VOLUME 9.3 fL (7.2-11.7); MONO # 0.6 K/uL (0.0-0.8); MONO % 6.4 % (0.0-10.0); RED CELL DISTRIBUTION WIDTH 19.1 % (11.5-14.5); WHITE BLOOD COUNT 8.7 K/uL (4.8-10.8)
[2017-06-20] MEDS: Multivitamin Vitamin B Complex (Nephro-Vite) Tab PO SCH (08:27)
[2017-06-20 09:03] LABS: POTASSIUM 5.5 mmol/L (3.6-5.2)
[2017-06-20 09:05] LABS: ALB/GLOB RATIO 0.6 (1.0-2.1); BILIRUBIN,TOTAL 0.5 mg/dL (0.2-1.3); CALCIUM 7.6 mg/dl (8.6-10.4); TOTAL PROTEIN 6.2 g/dL (6.3-8.3)
--- NOTE | 2017-06-20 10:26 | PCM.SURG1 ---
Surgeon's Initial Post Op Note - Surgeon's Notes Surgeon: Momo English MD Roll Cutter: NONE Type of Anesthesia: Local Pre-Operative Diagnosis: Right pleural effusion, weight loss Operative Findings: US showed a large right effusion Post-Operative Diagnosis: Right pleural effusion, weight loss Operation Performed: US guided right thoracentesis Specimen/Specimens Removed: 1200 cc of jane colored fluid Estimated Blood Loss: EBL {In ML}: 0 Blood Products Given: N/A Drains Used: No Drains Post-Op Condition: Fair Date of Surgery/Procedure: 06/20/17 Time of Surgery/Procedure: 10:20
--- NOTE | 2017-06-20 10:36 | US ---
PROCEDURE: Date of procedure: 06/20/2017 Procedure: 1. Ultrasound-guided Right thoracentesis, CPT 10514 Medications: 5cc 1% Lidocaine HISTORY: Right pleural effusion, shortness of breath TECHNIQUE: Following informed consent ,the Patients' right chest was marked. Procedure time-out was called, and the patient was placed in the sitting position and limited ultrasound showed a large right effusion. The patient's right back was prepped and draped in the usual sterile fashion. After the skin was anesthetized with lidocaine, a drainage catheter was advanced under ultrasound guidance into the pleural space. Ultrasound-guided thoracentesis was performed. A total of 1200 cubic centimeters of jane-colored fluid removed without complication. A Xeroform dressing was applied. IMPRESSION: Ultrasound guided Right thoracentesis. There were no immediate complications.
--- NOTE | 2017-06-20 13:59 | RAD ---
PROCEDURE: CHEST RADIOGRAPH, 1 VIEW HISTORY: Status post right thoracentesis. COMPARISON: 06/16/2017 FINDINGS: LUNGS: Opacity at left base most likely reflects dependent pleural fluid. Cannot rule out left basilar infiltrate superimposed. No abnormal opacity elsewhere. PLEURA: Left pleural effusion. No evidence of right pleural effusion. No pneumothorax. CARDIOVASCULAR: Normal. OSSEOUS STRUCTURES: No significant abnormalities. VISUALIZED UPPER ABDOMEN: Normal. OTHER FINDINGS: None. IMPRESSION: Left pleural effusion. This likely accounts for the opacity in the lower left hilary thorax. Cannot rule out additional superimposed infiltrate. No additional abnormality.
[2017-06-20] MEDS: Sodium Chloride 0.45% 1,000 ML IV SCH (17:45)
--- NOTE | 2017-06-20 18:27 | CP.PCM.PN ---
Subjective - Date & Time of Evaluation Date of Evaluation: 06/20/17 Time of Evaluation: 17:00 - Subjective Subjective: Status post thoracentesis and 1200 mL of fluid removed Afebrile with no chest pain No shortness of breath Objective - Vital Signs/Intake and Output Vital Signs (last 24 hours): Temp Pulse Resp BP Pulse Ox 98.1 F 96 H 20 106/62 96 06/20/17 15:20 06/20/17 15:20 06/20/17 07:00 06/20/17 15:20 06/20/17 15:20 Intake and Output: 06/20/17 06/20/17 06:59 18:59 Output Total 1250 Balance -1250 - Medications Medications: Current Medications Calcitriol (Rocaltrol) 0.25 mcg PO DAILY [facility] Last Admin: 06/20/17 13:39 Dose: 0.25 mcg Calcium Acetate (Phoslo) 667 mg PO TID [facility] Last Admin: 06/20/17 17:45 Dose: 667 mg Cyanocobalamin (Vitamin B12 1000 Mcg/Ml Inj) 1,000 mcg SC DAILY [facility] Stop: 06/23/17 23:59 Last Admin: 06/20/17 13:40 Dose: 1,000 mcg Docusate Sodium (Colace) 100 mg PO BID [facility] Last Admin: 06/20/17 17:46 Dose: Not Given Famotidine (Pepcid) 20 mg PO DAILY [facility] Last Admin: 06/20/17 13:39 Dose: 20 mg Fluconazole (Diflucan) 100 mg PO DAILY [facility] Last Admin: 06/20/17 13:40 Dose: 100 mg Sodium Chloride (Sodium Chloride 0.45%) 1,000 mls @ 60 mls/hr IV .[id number] [facility] Last Admin: 06/20/17 17:45 Dose: 60 mls/hr Lactulose (Enulose) 30 gm PO HS [facility] Last Admin: 06/19/17 22:16 Dose: 30 gm Tamsulosin HCl (Flomax) 0.4 mg PO DAILY [facility] Last Admin: 06/20/17 13:40 Dose: 0.4 mg Vitamin B Complex/Vit C/Folic Acid (Nephro-Aleksandra) 1 tab PO 0800 [facility] Last Admin: 06/20/17 08:27 Dose: 1 tab - Labs Labs: 06/20/17 08:11 06/20/17 08:11 PT 14.4 SECONDS (9.7-12.2) H 06/15/17 06:08 INR 1.3 06/15/17 06:08 APTT 39 SECONDS (21-34) H 06/15/17 06:08 - Head Exam Head Exam: ATRAUMATIC, NORMOCEPHALIC - ENT Exam ENT Exam: Mucous Membranes Moist - Neck Exam Neck Exam: Normal Inspection - Respiratory Exam Respiratory Exam: Decreased Breath Sounds - Cardiovascular Exam Cardiovascular Exam: REGULAR RHYTHM - GI/Abdominal Exam GI & Abdominal Exam: Soft, Normal Bowel Sounds Assessment and Plan (1) Pleural effusion Assessment & Plan: Status post thoracentesis Fluid analysis Continue present treatment Status: Acute (2) ARF (acute renal failure) Status: Acute (3) Hyperkalemia Status: Acute (4) Metabolic acidosis Status: Acute (5) Symptomatic anemia Status: Acute
--- NOTE | 2017-06-20 18:59 | CP.PCM.PN ---
Subjective - Date & Time of Evaluation Date of Evaluation: 06/20/17 Time of Evaluation: 18:58 - Subjective Subjective: Maynor patient says he feels better, c/o pain in the left big toe, otherwise has a better appetite without nausea or vomiting Objective - Vital Signs/Intake and Output Vital Signs (last 24 hours): Temp Pulse Resp BP Pulse Ox 98.1 F 90 20 106/62 96 06/20/17 15:20 06/20/17 18:00 06/20/17 07:00 06/20/17 15:20 06/20/17 15:20 Intake and Output: 06/20/17 06/20/17 06:59 18:59 Output Total 1250 Balance -1250 - Medications Medications: Current Medications Calcitriol (Rocaltrol) 0.25 mcg PO DAILY [facility] Last Admin: 06/20/17 13:39 Dose: 0.25 mcg Calcium Acetate (Phoslo) 667 mg PO TID [facility] Last Admin: 06/20/17 17:45 Dose: 667 mg Cyanocobalamin (Vitamin B12 1000 Mcg/Ml Inj) 1,000 mcg SC DAILY [facility] Stop: 06/23/17 23:59 Last Admin: 06/20/17 13:40 Dose: 1,000 mcg Docusate Sodium (Colace) 100 mg PO BID [facility] Last Admin: 06/20/17 17:46 Dose: Not Given Famotidine (Pepcid) 20 mg PO DAILY [facility] Last Admin: 06/20/17 13:39 Dose: 20 mg Fluconazole (Diflucan) 100 mg PO DAILY [facility] Last Admin: 06/20/17 13:40 Dose: 100 mg Sodium Chloride (Sodium Chloride 0.45%) 1,000 mls @ 60 mls/hr IV .[id number] [facility] Last Admin: 06/20/17 17:45 Dose: 60 mls/hr Lactulose (Enulose) 30 gm PO HS [facility] Last Admin: 06/19/17 22:16 Dose: 30 gm Tamsulosin HCl (Flomax) 0.4 mg PO DAILY [facility] Last Admin: 06/20/17 13:40 Dose: 0.4 mg Vitamin B Complex/Vit C/Folic Acid (Nephro-Aleksandra) 1 tab PO 0800 [facility] Last Admin: 06/20/17 08:27 Dose: 1 tab - Labs Labs: 06/20/17 08:11 06/20/17 08:11 PT 14.4 SECONDS (9.7-12.2) H 06/15/17 06:08 INR 1.3 06/15/17 06:08 APTT 39 SECONDS (21-34) H 06/15/17 06:08 Assessment and Plan (1) IgG gammopathy Assessment & Plan: Monoclonal gammopathy, abnormal SPEP, with elevated Ig G lambda monoclonal protein in serum and urine , Free light chain ratio and IgG levels not high enough to classify as myeloma. Will also get 24 hour urine protein. No further work up at this time. Status: Acute
--- NOTE | 2017-06-20 20:29 | CP.PCM.PN ---
Subjective - Date & Time of Evaluation Date of Evaluation: 06/20/17 Time of Evaluation: 20:28 - Subjective Subjective: pt seen and examined, follow up consult is dictated #[id number] Objective - Vital Signs/Intake and Output Vital Signs (last 24 hours): Temp Pulse Resp BP Pulse Ox 98.1 F 90 20 106/62 96 06/20/17 15:20 06/20/17 18:00 06/20/17 07:00 06/20/17 15:20 06/20/17 15:20 - Medications Medications: Current Medications Calcitriol (Rocaltrol) 0.25 mcg PO DAILY [facility] Last Admin: 06/20/17 13:39 Dose: 0.25 mcg Calcium Acetate (Phoslo) 667 mg PO TID [facility] Last Admin: 06/20/17 17:45 Dose: 667 mg Cyanocobalamin (Vitamin B12 1000 Mcg/Ml Inj) 1,000 mcg SC DAILY [facility] Stop: 06/23/17 23:59 Last Admin: 06/20/17 13:40 Dose: 1,000 mcg Docusate Sodium (Colace) 100 mg PO BID [facility] Last Admin: 06/20/17 17:46 Dose: Not Given Famotidine (Pepcid) 20 mg PO DAILY [facility] Last Admin: 06/20/17 13:39 Dose: 20 mg Fluconazole (Diflucan) 100 mg PO DAILY [facility] Last Admin: 06/20/17 13:40 Dose: 100 mg Sodium Chloride (Sodium Chloride 0.45%) 1,000 mls @ 60 mls/hr IV .[id number] [facility] Last Admin: 06/20/17 17:45 Dose: 60 mls/hr Lactulose (Enulose) 30 gm PO HS [facility] Last Admin: 06/19/17 22:16 Dose: 30 gm Tamsulosin HCl (Flomax) 0.4 mg PO DAILY [facility] Last Admin: 06/20/17 13:40 Dose: 0.4 mg Vitamin B Complex/Vit C/Folic Acid (Nephro-Aleksandra) 1 tab PO 0800 [facility] Last Admin: 06/20/17 08:27 Dose: 1 tab - Labs Labs: 06/20/17 08:11 06/20/17 08:11 PT 14.4 SECONDS (9.7-12.2) H 06/15/17 06:08 INR 1.3 06/15/17 06:08 APTT 39 SECONDS (21-34) H 06/15/17 06:08
[2017-06-20] MEDS ORDERED: Sod Polystyrene Sulf 15 gm/60 ml Oral Susp PO ONE (21:02)
--- NOTE | 2017-06-20 23:09 | PN ---
FOLLOWUP RENAL CONSULTATION LOCATION: The patient is located in room 564, bed A. REQUESTED BY: Akhil Wang MD REASON FOR FOLLOWUP: Acute renal failure, chronic kidney disease and for further evaluation. 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 Renal function is slowly improving. The patient also underwent right thoracentesis and drained about 1.2 L. The patient claims short of breath after thoracentesis. The patient is resting comfortably at this time. PHYSICAL EXAMINATION GENERAL: The patient is a 77-year-old elderly male, very cachectic, not in acute distress. VITAL SIGNS: As follow; blood pressure 106/62, pulse 96, respirations 20, temperature 98.1 and saturation 96%. Height is 5 feet 5 inches and weight is 100 pounds. HEENT: Pupils are normal and reactive to light and accommodation. Conjunctivae pink. Sclerae anicteric. Tongue is moist. Trachea is midline. LUNGS: Symmetric on both sides. Bilateral breath sounds present. Basal crackles present. CARDIOVASCULAR SYSTEM: [place] at the fifth intercostal space, midclavicular line. S1 and S2 audible. No murmur or gallop. ABDOMEN: Normal in appearance. Soft, tympanic. No guarding. No rigidity. No hepatosplenomegaly. CENTRAL NERVOUS SYSTEM: The patient is alert, awake, oriented x2-3. Sensory and motor system is grossly within normal limits. EXTREMITIES: No cyanosis. No clubbing. No edema. The patient has chronic skin changes due to previous edema and mild to moderate tenderness of the left big toe. CURRENT MEDICATIONS: Include as follows; Colace 100 mg p.o. b.i.d., Diflucan 100 p.o. daily, lactulose 30 mL p.o. at bedtime, Flomax 0.4 mg p.o. daily, Nephro-Aleksandra 1 tablet daily, Pepcid 20 mg daily, PhosLo 667 mg p.o. t.i.d., calcitriol 0.25 mcg p.o. daily., IV fluid half normal saline at 60 mL per hour and vitamin B12 1000 mcg subQ daily. LABORATORY DATA: As of 06/20/2017: WBC 8.7, hemoglobin 9.6, hematocrit is 28.8 and platelets 112. Sodium 135, potassium 5.5, chloride 101, CO2 of 19, BUN 83, creatinine 4.4, glucose is 74, calcium is 7.6, total bili 0.5, AST 23, ALT 47, alkaline phosphatase 97, total protein 6.2, albumin 2.2 and globulin is 4. Chest x-ray, 06/20/2017, at 10:24 a.m. Impression; left pleural effusion, likely account for distal opacity in the lower left hemithorax, cannot rule out additional superimposed infiltrate, no additional abnormalities, left pleural effusion, no evidence of right pleural effusion, no pneumothorax, status post right thoracentesis. ASSESSMENT AND PLAN: In summary, the patient is a 77-year-old elderly cachectic male with a history of cardiomyopathy, obstructive uropathy, bilateral hydroureter nephropathy, anemia with low bicarbonate and hyperkalemia. 1. Renal failure, acute on chronic kidney disease secondary to obstructive uropathy most likely secondary to bladder mass. 2. Cardiomyopathy. 3. Anemia, rule out multiple myeloma. 4. Metabolic acidosis secondary to renal failure. 5. Hyperkalemia secondary to renal failure. 6. Left pleural effusion and the patient underwent thoracentesis this morning on the right side with no pneumothorax in the portion of thoracentesis. PLAN: Continue gentle IV hydration and repeat BMP in the a.m. We will add sodium bicarbonate 650 mg p.o. t.i.d. and also we will give Kayexalate 15 g p.o. x1 dose. We will follow with you. Thank you for allowing me to participate in your patient's care and also we will check beta 2 microglobulin. Overall prognosis is very poor. Ruthann Duarte MD
--- NOTE | 2017-06-20 23:32 | CP.PCM.PN ---
Subjective - Date & Time of Evaluation Date of Evaluation: 06/20/17 Time of Evaluation: 09:05 - Subjective Subjective: Patient comfortable S/P thoracentasis No cardiac events Objective - Vital Signs/Intake and Output Vital Signs (last 24 hours): Temp Pulse Resp BP Pulse Ox 98.1 F 90 20 106/62 96 06/20/17 15:20 06/20/17 18:00 06/20/17 07:00 06/20/17 15:20 06/20/17 15:20 Intake and Output: 06/20/17 06/21/17 18:59 06:59 Output Total 600 200 Balance -600 -200 - Medications Medications: Current Medications Calcitriol (Rocaltrol) 0.25 mcg PO DAILY [facility] Last Admin: 06/20/17 13:39 Dose: 0.25 mcg Calcium Acetate (Phoslo) 667 mg PO TID [facility] Last Admin: 06/20/17 17:45 Dose: 667 mg Cyanocobalamin (Vitamin B12 1000 Mcg/Ml Inj) 1,000 mcg SC DAILY [facility] Stop: 06/23/17 23:59 Last Admin: 06/20/17 13:40 Dose: 1,000 mcg Docusate Sodium (Colace) 100 mg PO BID [facility] Last Admin: 06/20/17 17:46 Dose: Not Given Famotidine (Pepcid) 20 mg PO DAILY [facility] Last Admin: 06/20/17 13:39 Dose: 20 mg Fluconazole (Diflucan) 100 mg PO DAILY [facility] Last Admin: 06/20/17 13:40 Dose: 100 mg Sodium Chloride (Sodium Chloride 0.45%) 1,000 mls @ 60 mls/hr IV .[id number] [facility] Last Admin: 06/20/17 17:45 Dose: 60 mls/hr Lactulose (Enulose) 30 gm PO HS [facility] Last Admin: 06/20/17 21:11 Dose: Not Given Sodium Bicarbonate (Sodium Bicarbonate Tab) 650 mg PO Q8 [facility] Last Admin: 06/20/17 21:52 Dose: 650 mg Tamsulosin HCl (Flomax) 0.4 mg PO DAILY [facility] Last Admin: 06/20/17 13:40 Dose: 0.4 mg Vitamin B Complex/Vit C/Folic Acid (Nephro-Aleksandra) 1 tab PO 0800 [facility] Last Admin: 06/20/17 08:27 Dose: 1 tab - Labs Labs: 06/20/17 08:11 06/20/17 08:11 PT 14.4 SECONDS (9.7-12.2) H 06/15/17 06:08 INR 1.3 06/15/17 06:08 APTT 39 SECONDS (21-34) H 06/15/17 06:08 - Head Exam Head Exam: ATRAUMATIC, NORMAL INSPECTION - Eye Exam Eye Exam: EOMI, PERRL Pupil Exam: NORMAL ACCOMODATION - ENT Exam ENT Exam: Mucous Membranes Moist - Neck Exam Neck Exam: Full ROM - Respiratory Exam Respiratory Exam: NORMAL BREATHING PATTERN - Cardiovascular Exam Cardiovascular Exam: REGULAR RHYTHM, +S1, +S2 - GI/Abdominal Exam GI & Abdominal Exam: Soft, Normal Bowel Sounds - Extremities Exam Extremities Exam: Full ROM - Neurological Exam Neurological Exam: Alert, Awake, CN II-XII Intact, Oriented x3 - Skin Skin Exam: Warm Assessment and Plan - Assessment and Plan (Free Text) Assessment: 1. Cardiomyopathy with Low EF 2. Hypotension 3. Bladder tumor (?Malignancy) 4. CKD 5. Marked wsting and weight loss Recommend Bladder tumor biopsy r/o malignancy
[2017-06-21 07:49] LABS: BASO % 0.4 % (0.0-2.0); EOS # 0.1 K/uL (0.0-0.7); EOS % 1.2 % (0.0-4.0); HEMATOCRIT 26.8 % (35.0-51.0); LYMPH # 1.3 K/uL (1.0-4.3); LYMPH % 14.9 % (20.0-40.0); MEAN CELL VOLUME 97.1 fL (80.0-94.0); MEAN CORPUSCULAR HEMOGLOBIN 31.5 pg (27.0-31.0); MEAN CORPUSCULAR HGB CONC 32.5 g/dL (33.0-37.0); MEAN PLATELET VOLUME 8.9 fL (7.2-11.7); MONO # 0.7 K/uL (0.0-0.8); MONO % 8.4 % (0.0-10.0); RED CELL DISTRIBUTION WIDTH 18.8 % (11.5-14.5); WHITE BLOOD COUNT 8.7 K/uL (4.8-10.8)
[2017-06-21 07:58] LABS: POTASSIUM 5.2 mmol/L (3.6-5.2)
[2017-06-21 08:00] LABS: ALB/GLOB RATIO 0.6 (1.0-2.1); BILIRUBIN,TOTAL 0.5 mg/dL (0.2-1.3); TOTAL PROTEIN 5.8 g/dL (6.3-8.3)
[2017-06-21 08:01] LABS: CALCIUM 7.3 mg/dl (8.6-10.4)
[2017-06-21] MEDS: Multivitamin Vitamin B Complex (Nephro-Vite) Tab PO SCH ×3 (09:39→12:28)
[2017-06-21] MEDS: Sodium Chloride 0.45% 1,000 ML IV SCH (09:45)
--- NOTE | 2017-06-21 11:45 | CP.PCM.PN ---
Subjective - Date & Time of Evaluation Date of Evaluation: 06/21/17 Time of Evaluation: 11:44 - Subjective Subjective: pt is seen and examined, follow up consult is dictated #[phone] consider [place] , as per hematology Objective - Vital Signs/Intake and Output Vital Signs (last 24 hours): Temp Pulse Resp BP Pulse Ox 98.0 F 95 H 20 109/65 99 06/21/17 07:00 06/21/17 08:47 06/21/17 07:00 06/21/17 07:00 06/21/17 07:00 Intake and Output: 06/21/17 06/21/17 06:59 18:59 Output Total 900 Balance -900 - Medications Medications: Current Medications Calcitriol (Rocaltrol) 0.25 mcg PO DAILY [facility] Last Admin: 06/21/17 09:47 Dose: Not Given Calcium Acetate (Phoslo) 667 mg PO TID [facility] Last Admin: 06/21/17 09:47 Dose: Not Given Cyanocobalamin (Vitamin B12 1000 Mcg/Ml Inj) 1,000 mcg SC DAILY [facility] Stop: 06/23/17 23:59 Last Admin: 06/21/17 09:40 Dose: 1,000 mcg Docusate Sodium (Colace) 100 mg PO BID [facility] Last Admin: 06/21/17 09:19 Dose: Not Given Famotidine (Pepcid) 20 mg PO DAILY [facility] Last Admin: 06/21/17 09:47 Dose: Not Given Fluconazole (Diflucan) 100 mg PO DAILY [facility] Last Admin: 06/21/17 09:47 Dose: Not Given Sodium Chloride (Sodium Chloride 0.45%) 1,000 mls @ 60 mls/hr IV .[id number] [facility] Last Admin: 06/21/17 09:45 Dose: 60 mls/hr Lactulose (Enulose) 30 gm PO HS [facility] Last Admin: 06/20/17 21:11 Dose: Not Given Sodium Bicarbonate (Sodium Bicarbonate Tab) 650 mg PO Q8 [facility] Last Admin: 06/21/17 05:56 Dose: Not Given Tamsulosin HCl (Flomax) 0.4 mg PO DAILY [facility] Last Admin: 06/21/17 09:47 Dose: Not Given Vitamin B Complex/Vit C/Folic Acid (Nephro-Aleksandra) 1 tab PO 0800 [facility] Last Admin: 06/21/17 09:47 Dose: Not Given - Labs Labs: 06/21/17 07:30 06/21/17 07:30 PT 14.4 SECONDS (9.7-12.2) H 06/15/17 06:08 INR 1.3 06/15/17 06:08 APTT 39 SECONDS (21-34) H 06/15/17 06:08
[2017-06-21] MEDS: Epoetin Alfa 10,000 unit/ml Dialysis SC SCH (13:41)
--- NOTE | 2017-06-21 18:04 | CP.PCM.PN ---
Subjective - Date & Time of Evaluation Date of Evaluation: 06/21/17 Time of Evaluation: 10:30 - Subjective Subjective: patient seen and examined. Status post thoracentesis Denies shortness of breath Complaining of pain at thoracentesis site Afebrile Objective - Vital Signs/Intake and Output Vital Signs (last 24 hours): Temp Pulse Resp BP Pulse Ox 98.6 F 101 H 20 93/59 L 99 06/21/17 15:14 06/21/17 15:14 06/21/17 15:14 06/21/17 15:14 06/21/17 15:14 Intake and Output: 06/21/17 06/21/17 06:59 18:59 Intake Total 960 Output Total 900 1000 Balance -900 -40 - Medications Medications: Current Medications Calcitriol (Rocaltrol) 0.25 mcg PO DAILY [facility] Last Admin: 06/21/17 12:28 Dose: 0.25 mcg Calcium Acetate (Phoslo) 667 mg PO TID [facility] Last Admin: 06/21/17 13:41 Dose: 667 mg Cyanocobalamin (Vitamin B12 1000 Mcg/Ml Inj) 1,000 mcg SC DAILY [facility] Stop: 06/23/17 23:59 Last Admin: 06/21/17 09:40 Dose: 1,000 mcg Epoetin Pepe (Procrit) 10,[facility] Last Admin: 06/21/17 13:41 Dose: 10,000 unit Famotidine (Pepcid) 20 mg PO DAILY [facility] Last Admin: 06/21/17 12:28 Dose: 20 mg Fluconazole (Diflucan) 100 mg PO DAILY [facility] Last Admin: 06/21/17 12:28 Dose: 100 mg Sodium Chloride (Sodium Chloride 0.45%) 1,000 mls @ 60 mls/hr IV .[id number] [facility] Last Admin: 06/21/17 09:45 Dose: 60 mls/hr Sodium Bicarbonate (Sodium Bicarbonate Tab) 650 mg PO Q8 [facility] Last Admin: 06/21/17 13:41 Dose: 650 mg Tamsulosin HCl (Flomax) 0.4 mg PO DAILY [facility] Last Admin: 06/21/17 12:28 Dose: 0.4 mg Vitamin B Complex/Vit C/Folic Acid (Nephro-Aleksandra) 1 tab PO 0800 [facility] Last Admin: 06/21/17 12:28 Dose: 1 tab - Labs Labs: 06/21/17 07:30 06/21/17 07:30 PT 14.4 SECONDS (9.7-12.2) H 06/15/17 06:08 INR 1.3 06/15/17 06:08 APTT 39 SECONDS (21-34) H 06/15/17 06:08 - Head Exam Head Exam: ATRAUMATIC, NORMOCEPHALIC - Eye Exam Eye Exam: Normal appearance - ENT Exam ENT Exam: Mucous Membranes Moist - Neck Exam Neck Exam: Normal Inspection - Respiratory Exam Respiratory Exam: Decreased Breath Sounds - Cardiovascular Exam Cardiovascular Exam: REGULAR RHYTHM - GI/Abdominal Exam GI & Abdominal Exam: Soft, Normal Bowel Sounds - Neurological Exam Neurological Exam: Alert Assessment and Plan (1) Pleural effusion Assessment & Plan: status post thoracentesis Awaiting fluid analysis Followup chest x-ray Continue present treatment Status: Acute (2) ARF (acute renal failure) Status: Acute (3) Hyperkalemia Status: Acute (4) Metabolic acidosis Status: Acute (5) Symptomatic anemia Status: Acute
--- NOTE | 2017-06-21 23:01 | CP.PCM.PN ---
Subjective - Date & Time of Evaluation Date of Evaluation: 06/21/17 Time of Evaluation: 11:30 - Subjective Subjective: Coverage Note for Dr. Wang Patient seen and evaluated Pleural fluid cytology pending No new events noted Objective - Vital Signs/Intake and Output Vital Signs (last 24 hours): Temp Pulse Resp BP Pulse Ox 98.6 F 101 H 20 93/59 L 99 06/21/17 15:14 06/21/17 15:14 06/21/17 15:14 06/21/17 15:14 06/21/17 15:14 Intake and Output: 06/21/17 06/22/17 18:59 06:59 Intake Total 960 Output Total 1000 550 Balance -40 -550 - Medications Medications: Current Medications Calcitriol (Rocaltrol) 0.25 mcg PO DAILY [facility] Last Admin: 06/21/17 12:28 Dose: 0.25 mcg Calcium Acetate (Phoslo) 667 mg PO TID [facility] Last Admin: 06/21/17 18:20 Dose: 667 mg Cyanocobalamin (Vitamin B12 1000 Mcg/Ml Inj) 1,000 mcg SC DAILY [facility] Stop: 06/23/17 23:59 Last Admin: 06/21/17 09:40 Dose: 1,000 mcg Epoetin Pepe (Procrit) 10,000 unit SC TUTH [facility] Last Admin: 06/21/17 13:41 Dose: 10,000 unit Famotidine (Pepcid) 20 mg PO DAILY [facility] Last Admin: 06/21/17 12:28 Dose: 20 mg Fluconazole (Diflucan) 100 mg PO DAILY [facility] Last Admin: 06/21/17 12:28 Dose: 100 mg Sodium Chloride (Sodium Chloride 0.45%) 1,000 mls @ 60 mls/hr IV .[id number] [facility] Last Admin: 06/21/17 09:45 Dose: 60 mls/hr Sodium Bicarbonate (Sodium Bicarbonate Tab) 650 mg PO Q8 [facility] Last Admin: 06/21/17 22:29 Dose: 650 mg Tamsulosin HCl (Flomax) 0.4 mg PO DAILY [facility] Last Admin: 06/21/17 12:28 Dose: 0.4 mg Vitamin B Complex/Vit C/Folic Acid (Nephro-Aleksandra) 1 tab PO 0800 [facility] Last Admin: 06/21/17 12:28 Dose: 1 tab - Labs Labs: 06/21/17 07:30 06/21/17 07:30 PT 14.4 SECONDS (9.7-12.2) H 06/15/17 06:08 INR 1.3 06/15/17 06:08 APTT 39 SECONDS (21-34) H 06/15/17 06:08 - Head Exam Head Exam: ATRAUMATIC, NORMAL INSPECTION - Eye Exam Eye Exam: EOMI, PERRL Pupil Exam: NORMAL ACCOMODATION - ENT Exam ENT Exam: Mucous Membranes Moist, Normal Exam - Neck Exam Neck Exam: Full ROM, Normal Inspection - Respiratory Exam Respiratory Exam: Clear to Ausculation Bilateral, NORMAL BREATHING PATTERN - GI/Abdominal Exam GI & Abdominal Exam: Soft, Normal Bowel Sounds - Extremities Exam Extremities Exam: Full ROM - Neurological Exam Neurological Exam: Alert, CN II-XII Intact, Oriented x3 - Psychiatric Exam Psychiatric exam: Normal Mood - Skin Skin Exam: Warm Assessment and Plan - Assessment and Plan (Free Text) Assessment: 1. Cardiomyopathy with Low EF 2. Hypotension 3. Bladder tumor (?Malignancy) 4. Pleural effusion s/p Tap 5. CKD 6. Marked wsting and weight loss Recommend Bladder tumor biopsy r/o malignancy
[2017-06-22] MEDS: Sodium Chloride 0.45% 1,000 ML IV SCH ×2 (03:31→19:55)
[2017-06-22 07:23] LABS: BASO % 0.5 % (0.0-2.0); EOS # 0.1 K/uL (0.0-0.7); EOS % 1.7 % (0.0-4.0); HEMATOCRIT 27.4 % (35.0-51.0); LYMPH # 1.5 K/uL (1.0-4.3); LYMPH % 22.3 % (20.0-40.0); MEAN CELL VOLUME 96.7 fL (80.0-94.0); MEAN CORPUSCULAR HEMOGLOBIN 31.8 pg (27.0-31.0); MEAN CORPUSCULAR HGB CONC 32.9 g/dL (33.0-37.0); MEAN PLATELET VOLUME 9.4 fL (7.2-11.7); MONO # 0.6 K/uL (0.0-0.8); MONO % 8.8 % (0.0-10.0); RED CELL DISTRIBUTION WIDTH 18.7 % (11.5-14.5); WHITE BLOOD COUNT 6.5 K/uL (4.8-10.8)
[2017-06-22 07:59] LABS: POTASSIUM 5.4 mmol/L (3.6-5.2)
[2017-06-22 08:02] LABS: ALB/GLOB RATIO 0.6 (1.0-2.1); BILIRUBIN,TOTAL 0.5 mg/dL (0.2-1.3); CALCIUM 7.3 mg/dl (8.6-10.4)
[2017-06-22] MEDS: Multivitamin Vitamin B Complex (Nephro-Vite) Tab PO SCH (09:00)
--- NOTE | 2017-06-22 10:10 | PN ---
LOCATION: The patient is located in room #615, bed B. SUBJECTIVE: Mr. Palmer is a 77-year-old elderly male with a past medical history significant for questionable nephrolithiasis, was admitted with severe generalized weakness, very cachectic, renal failure, anemia, metabolic acidosis, hyperkalemia and found to have obstructive uropathy, status post Beck catheter placement since admission. The patient has good urine output. The patient also underwent thoracentesis yesterday, received 4 units of packed RBC since admission for severe anemia of hemoglobin about 5.2. The patient is not in acute distress. Complains of feeling weak and tired today, complains of loose bowel movement after Kayexalate last night. Denies any chest pain or palpitation. Denies any fever or cough. PHYSICAL EXAMINATION VITAL SIGNS: Blood pressure this morning 109/65, pulse 94, respirations 20, temperature 98, sats 99%, height 5 feet 5 inches, weight is 100 pounds. GENERAL: Mr. Palmer is a 77-year-old elderly, very cachectic male, who is not in distress, resting comfortably. HEENT: Pupils normal, reactive to light and accommodation. Conjunctivae pink. Sclerae anicteric. Tongue is moist. Trachea is midline. LUNGS: Symmetric on both sides. Bilateral breath sounds present, decreased breath sounds in left base. CARDIOVASCULAR SYSTEM: [place] at the fifth intercostal space, midclavicular line. S1 and S2 audible. No murmur or gallop. ABDOMEN: Normal in appearance. Soft, tympanic. No guarding. No rigidity. No hepatosplenomegaly. CENTRAL NERVOUS SYSTEM: The patient is alert, awake, and oriented x3. Nonfocal neuro examination. Cranial nerves II to XII grossly intact. Sensory and motor system is within normal limits. EXTREMITIES: No cyanosis. No clubbing. No edema. The patient has chronic skin changes in both lower extremities secondary to previous edema. CURRENT MEDICATIONS: Include as follows: Diflucan 100 mg p.o. daily; Flomax 0.4 mg p.o. daily; Nephro-Aleksandra 1 tablet daily; Pepcid 20 mg p.o. daily; PhosLo 667 mg p.o. t.i.d.; Epogen 10,000 units 2 times a week; Rocaltrol 0.25 mcg p.o. daily; sodium bicarb 650 mg p.o. q. 8 hours; B12 of 1000 mcg subQ daily and IV fluids half-normal saline at 60 mL/hour. LABORATORY DATA: Include as follows: As of 06/21/2017: WBC 8.7, hemoglobin 8.7, hematocrit is 26.8 and platelets are 114. Sodium 135, potassium 5.2, chloride 103, CO2 of 21, BUN 80, creatinine 4.1, glucose 78 and calcium 7.3. Total bili 0.5, AST 24, ALT 47, alkaline phosphatase 107, total protein 5.9, albumin is 2.1, and globulin 3.7. Urine cytology as of 06/18/2017: Fungal organism brandy present, microscopic hematuria, crystalluria, acute inflammatory cells present, benign and atypical urothelial cells, red blood cells, neutrophils, bacteria, crystals and fungal organism morphologically consistent with brandy species. Urine cytology as of 06/15/2017: Again microscopic hematuria, acute inflammatory cells present, fungal organism brandy present, atypical urothelial cells. Further workup is recommended. ASSESSMENT AND PLAN: In summary again, Mr. Palmer is a 77-year-old elderly, very cachectic male with a history of questionable nephrolithiasis with cachexia, cardiomyopathy, renal failure after uropathy. He had normal UPEP, SPEP and urine immunofixation. Increased PTH and bilateral hydroureteronephrosis and bladder mass. 1. Renal failure, acute on chronic kidney disease. Renal function is slowly improving. 2. Anemia, most likely secondary to multifactorial, secondary to renal failure and cannot rule out multiple myeloma and/or malignancy. 3. Bladder mass, rule out bladder stone, rule out bladder mass. 4. Hydroureteronephrosis, rule out again underlying malignancy and obstruction of ureteral orifices, partial. 5. Metabolic acidosis. 6. Hyperkalemia, status post Kayexalate last night and serum potassium slightly better today and bicarb is improving. Continue sodium bicarb and Procrit or Epogen as per the hematology recommendations. Advised to follow up with hematology. Thank you for allowing me to participate in your patient's care. Repeat BMP in a.m. Ruthann Duarte MD
--- NOTE | 2017-06-22 17:57 | CP.PCM.PN ---
Subjective - Date & Time of Evaluation Date of Evaluation: 06/22/17 Time of Evaluation: 17:57 - Subjective Subjective: pt is seen and examined, follow up consult is dictated #[id number] check labs in am, r/o myeloma Objective - Vital Signs/Intake and Output Vital Signs (last 24 hours): Temp Pulse Resp BP Pulse Ox 98.8 F 97 H 20 105/61 97 06/22/17 15:00 06/22/17 15:00 06/22/17 15:00 06/22/17 15:00 06/22/17 15:00 Intake and Output: 06/22/17 06/22/17 06:59 18:59 Intake Total 930 500 Output Total 1150 300 Balance -220 200 - Medications Medications: Current Medications Calcitriol (Rocaltrol) 0.25 mcg PO DAILY [facility] Last Admin: 06/22/17 09:49 Dose: 0.25 mcg Calcium Acetate (Phoslo) 667 mg PO TID [facility] Last Admin: 06/22/17 17:46 Dose: 667 mg Cyanocobalamin (Vitamin B12 1000 Mcg/Ml Inj) 1,000 mcg SC DAILY [facility] Stop: 06/23/17 23:59 Last Admin: 06/22/17 09:51 Dose: 1,000 mcg Epoetin Pepe (Procrit) 10,000 unit SC TUTH [facility] Last Admin: 06/21/17 13:41 Dose: 10,000 unit Famotidine (Pepcid) 20 mg PO DAILY [facility] Last Admin: 06/22/17 09:50 Dose: 20 mg Fluconazole (Diflucan) 100 mg PO DAILY [facility] Last Admin: 06/22/17 09:50 Dose: 100 mg Sodium Chloride (Sodium Chloride 0.45%) 1,000 mls @ 60 mls/hr IV .[id number] [facility] Last Admin: 06/22/17 03:31 Dose: 60 mls/hr Sodium Bicarbonate (Sodium Bicarbonate Tab) 650 mg PO Q8 [facility] Last Admin: 06/22/17 14:15 Dose: 650 mg Tamsulosin HCl (Flomax) 0.4 mg PO DAILY [facility] Last Admin: 06/22/17 09:50 Dose: 0.4 mg Vitamin B Complex/Vit C/Folic Acid (Nephro-Aleksandra) 1 tab PO 0800 [facility] Last Admin: 06/22/17 09:00 Dose: 1 tab - Labs Labs: 06/22/17 07:04 06/22/17 07:04 PT 14.4 SECONDS (9.7-12.2) H 06/15/17 06:08 INR 1.3 06/15/17 06:08 APTT 39 SECONDS (21-34) H 06/15/17 06:08
[2017-06-23 07:24] LABS: BASO % 0.3 % (0.0-2.0); EOS # 0.1 K/uL (0.0-0.7); HEMATOCRIT 27.6 % (35.0-51.0); LYMPH # 1.2 K/uL (1.0-4.3); LYMPH % 14.4 % (20.0-40.0); MEAN CELL VOLUME 96.8 fL (80.0-94.0); MEAN CORPUSCULAR HEMOGLOBIN 32.2 pg (27.0-31.0); MEAN CORPUSCULAR HGB CONC 33.2 g/dL (33.0-37.0); MEAN PLATELET VOLUME 8.6 fL (7.2-11.7); MONO # 0.6 K/uL (0.0-0.8); MONO % 7.7 % (0.0-10.0); RED CELL DISTRIBUTION WIDTH 18.5 % (11.5-14.5); WHITE BLOOD COUNT 8.3 K/uL (4.8-10.8)
[2017-06-23] MEDS: Multivitamin Vitamin B Complex (Nephro-Vite) Tab PO SCH (07:30)
--- NOTE | 2017-06-23 07:39 | CP.PCM.PN ---
Subjective - Date & Time of Evaluation Date of Evaluation: 06/22/17 Time of Evaluation: 07:20 - Subjective Subjective: Patient seen and evaluated Offers no complaints No events noted Objective - Vital Signs/Intake and Output Vital Signs (last 24 hours): Temp Pulse Resp BP Pulse Ox 98.5 F 111 H 20 108/53 L 98 06/22/17 23:30 06/23/17 00:44 06/22/17 23:30 06/22/17 23:30 06/22/17 23:30 Intake and Output: 06/23/17 06/23/17 06:59 18:59 Intake Total 300 Output Total 3100 Balance -2800 - Medications Medications: Current Medications Calcitriol (Rocaltrol) 0.25 mcg PO DAILY [facility] Last Admin: 06/22/17 09:49 Dose: 0.25 mcg Calcium Acetate (Phoslo) 667 mg PO TID [facility] Last Admin: 06/22/17 17:46 Dose: 667 mg Cyanocobalamin (Vitamin B12 1000 Mcg/Ml Inj) 1,000 mcg SC DAILY [facility] Stop: 06/23/17 23:59 Last Admin: 06/22/17 09:51 Dose: 1,000 mcg Epoetin Pepe (Procrit) 10,000 unit SC TUTH [facility] Last Admin: 06/21/17 13:41 Dose: 10,000 unit Famotidine (Pepcid) 20 mg PO DAILY [facility] Last Admin: 06/22/17 09:50 Dose: 20 mg Fluconazole (Diflucan) 100 mg PO DAILY [facility] Last Admin: 06/22/17 09:50 Dose: 100 mg Heparin Sodium (Porcine) (Heparin) 5,000 units SC Q12 [facility] Sodium Chloride (Sodium Chloride 0.45%) 1,000 mls @ 60 mls/hr IV .[id number] [facility] Last Admin: 06/22/17 19:55 Dose: 60 mls/hr Pantoprazole Sodium (Protonix Ec Tab) 20 mg PO DAILY [facility] Sodium Bicarbonate (Sodium Bicarbonate Tab) 650 mg PO Q8 [facility] Last Admin: 06/23/17 06:05 Dose: 650 mg Tamsulosin HCl (Flomax) 0.4 mg PO DAILY [facility] Last Admin: 06/22/17 09:50 Dose: 0.4 mg Vitamin B Complex/Vit C/Folic Acid (Nephro-Aleksandra) 1 tab PO 0800 [facility] Last Admin: 06/22/17 09:00 Dose: 1 tab - Labs Labs: 06/23/17 07:17 06/22/17 07:04 PT 14.4 SECONDS (9.7-12.2) H 06/15/17 06:08 INR 1.3 06/15/17 06:08 APTT 39 SECONDS (21-34) H 06/15/17 06:08 - Head Exam Head Exam: ATRAUMATIC - Eye Exam Eye Exam: EOMI, PERRL Pupil Exam: NORMAL ACCOMODATION - ENT Exam ENT Exam: Mucous Membranes Moist - Neck Exam Neck Exam: Full ROM - Respiratory Exam Respiratory Exam: Clear to Ausculation Bilateral, NORMAL BREATHING PATTERN - Cardiovascular Exam Cardiovascular Exam: REGULAR RHYTHM, +S1, +S2 - Extremities Exam Extremities Exam: Full ROM - Neurological Exam Neurological Exam: Alert, Oriented x3 - Skin Skin Exam: Warm Assessment and Plan - Assessment and Plan (Free Text) Assessment: 1. Cardiomyopathy with Low EF 2. Hypotension 3. Bladder tumor (?Malignancy) 4. Pleural effusion s/p Tap 5. CKD 6. Marked wsting and weight loss Recommend Bladder tumor biopsy r/o malignancy
[2017-06-23 07:51] LABS: ALB/GLOB RATIO 0.6 (1.0-2.1); BILIRUBIN,TOTAL 0.4 mg/dL (0.2-1.3); CALCIUM 7.5 mg/dl (8.6-10.4); POTASSIUM 5.7 mmol/L (3.6-5.2); TOTAL PROTEIN 5.7 g/dL (6.3-8.3)
[2017-06-23] MEDS: Pantoprazole 20 mg EC Tab PO SCH (09:00)
[2017-06-23] MEDS: Sodium Chloride 0.45% 1,000 ML IV SCH ×2 (10:55→13:01)
--- NOTE | 2017-06-23 11:58 | CP.PCM.PN ---
Subjective - Date & Time of Evaluation Date of Evaluation: 06/23/17 Time of Evaluation: 11:57 - Subjective Subjective: pt is seen and examined, follow up consult is dictated #[id number] Objective - Vital Signs/Intake and Output Vital Signs (last 24 hours): Temp Pulse Resp BP Pulse Ox 98.1 F 101 H 20 100/58 L 97 06/23/17 07:00 06/23/17 07:00 06/23/17 07:00 06/23/17 07:00 06/23/17 07:00 Intake and Output: 06/23/17 06/23/17 06:59 18:59 Intake Total 900 Output Total 3100 Balance -2200 - Medications Medications: Current Medications Calcitriol (Rocaltrol) 0.25 mcg PO DAILY [facility] Last Admin: 06/22/17 09:49 Dose: 0.25 mcg Calcium Acetate (Phoslo) 667 mg PO TID [facility] Last Admin: 06/22/17 17:46 Dose: 667 mg Cyanocobalamin (Vitamin B12 1000 Mcg/Ml Inj) 1,000 mcg SC DAILY [facility] Stop: 06/23/17 23:59 Last Admin: 06/22/17 09:51 Dose: 1,000 mcg Epoetin Pepe (Procrit) 10,000 unit SC TUTH [facility] Last Admin: 06/21/17 13:41 Dose: 10,000 unit Famotidine (Pepcid) 20 mg PO DAILY [facility] Last Admin: 06/22/17 09:50 Dose: 20 mg Fluconazole (Diflucan) 100 mg PO DAILY [facility] Last Admin: 06/22/17 09:50 Dose: 100 mg Heparin Sodium (Porcine) (Heparin) 5,000 units SC Q12 [facility] Sodium Chloride (Sodium Chloride 0.45%) 1,000 mls @ 60 mls/hr IV .[id number] [facility] Last Admin: 06/22/17 19:55 Dose: 60 mls/hr Pantoprazole Sodium (Protonix Ec Tab) 20 mg PO DAILY [facility] Sodium Bicarbonate (Sodium Bicarbonate Tab) 650 mg PO Q8 [facility] Last Admin: 06/23/17 06:05 Dose: 650 mg Sodium Polystyrene Sulfonate (Kayexalate Oral Susp) 15 gm PO ONCE ONE Stop: 06/23/17 11:58 Tamsulosin HCl (Flomax) 0.4 mg PO DAILY [facility] Last Admin: 06/22/17 09:50 Dose: 0.4 mg Vitamin B Complex/Vit C/Folic Acid (Nephro-Aleksandra) 1 tab PO 0800 [facility] Last Admin: 06/22/17 09:00 Dose: 1 tab - Labs Labs: 06/23/17 07:17 06/23/17 07:17 PT 14.4 SECONDS (9.7-12.2) H 06/15/17 06:08 INR 1.3 06/15/17 06:08 APTT 39 SECONDS (21-34) H 06/15/17 06:08
[2017-06-23] MEDS ORDERED: Sod Polystyrene Sulf 15 gm/60 ml Oral Susp PO ONE (12:00)
--- NOTE | 2017-06-23 22:19 | CP.PCM.PN ---
Subjective - Date & Time of Evaluation Date of Evaluation: 06/23/17 Time of Evaluation: 14:30 - Subjective Subjective: Patient seen and evaluated Denies chest pain and dyspnea Comfortable Objective - Vital Signs/Intake and Output Vital Signs (last 24 hours): Temp Pulse Resp BP Pulse Ox 98.7 F 99 H 20 94/53 L 96 06/23/17 15:53 06/23/17 15:53 06/23/17 15:53 06/23/17 15:53 06/23/17 15:53 Intake and Output: 06/23/17 06/24/17 18:59 06:59 Intake Total 880 Output Total 500 Balance 380 - Medications Medications: Current Medications Calcitriol (Rocaltrol) 0.25 mcg PO DAILY [facility] Last Admin: 06/23/17 12:44 Dose: 0.25 mcg Calcium Acetate (Phoslo) 667 mg PO TID [facility] Last Admin: 06/23/17 19:00 Dose: 667 mg Cyanocobalamin (Vitamin B12 1000 Mcg/Ml Inj) 1,000 mcg SC DAILY [facility] Stop: 06/23/17 23:59 Last Admin: 06/23/17 12:54 Dose: 1,000 mcg Epoetin Pepe (Procrit) 10,000 unit SC TUTH [facility] Last Admin: 06/21/17 13:41 Dose: 10,000 unit Famotidine (Pepcid) 20 mg PO DAILY [facility] Last Admin: 06/23/17 12:44 Dose: 20 mg Fluconazole (Diflucan) 100 mg PO DAILY [facility] Last Admin: 06/23/17 13:02 Dose: 100 mg Heparin Sodium (Porcine) (Heparin) 5,000 units SC Q12 [facility] Last Admin: 06/23/17 13:03 Dose: Not Given Pantoprazole Sodium (Protonix Ec Tab) 20 mg PO DAILY [facility] Last Admin: 06/23/17 09:00 Dose: Not Given Sodium Bicarbonate (Sodium Bicarbonate Tab) 650 mg PO Q8 [facility] Last Admin: 06/23/17 14:34 Dose: 650 mg Tamsulosin HCl (Flomax) 0.4 mg PO DAILY [facility] Last Admin: 06/23/17 12:44 Dose: 0.4 mg Vitamin B Complex/Vit C/Folic Acid (Nephro-Aleksandra) 1 tab PO 0800 [facility] Last Admin: 06/23/17 07:30 Dose: 1 tab - Labs Labs: 06/23/17 07:17 06/23/17 07:17 PT 14.4 SECONDS (9.7-12.2) H 06/15/17 06:08 INR 1.3 06/15/17 06:08 APTT 39 SECONDS (21-34) H 06/15/17 06:08 - Head Exam Head Exam: ATRAUMATIC, NORMAL INSPECTION - Eye Exam Eye Exam: EOMI, PERRL Pupil Exam: NORMAL ACCOMODATION - ENT Exam ENT Exam: Mucous Membranes Moist - Neck Exam Neck Exam: Full ROM, Normal Inspection - Respiratory Exam Respiratory Exam: Clear to Ausculation Bilateral, NORMAL BREATHING PATTERN - Cardiovascular Exam Cardiovascular Exam: REGULAR RHYTHM, +S1, +S2 - GI/Abdominal Exam GI & Abdominal Exam: Soft, Normal Bowel Sounds - Extremities Exam Extremities Exam: Full ROM - Neurological Exam Neurological Exam: Awake, CN II-XII Intact, Oriented x3 - Skin Skin Exam: Warm Assessment and Plan - Assessment and Plan (Free Text) Assessment: 1. Cardiomyopathy with Low EF 2. Hypotension 3. Bladder tumor (?Malignancy) 4. Pleural effusion s/p Tap 5. CKD 6. Marked wsting and weight loss Recommend Bladder tumor biopsy r/o malignancy
--- NOTE | 2017-06-24 04:22 | PN ---
DATE: LOCATION: The patient is located in room 658, bed B. REQUESTED BY: Akhil Wagn MD. REASON FOR FOLLOWUP: Acute renal failure, chronic kidney disease, obstructive uropathy, anemia secondary to hyperparathyroidism. SUBJECTIVE: Mr. Palmer is a 77 years old elderly, very cachectic, male with questionable past medical history significant for nephrolithiasis and was admitted with severe malnutrition, cachexia, severe weakness, anemia with a hemoglobin about 5 and BUN and creatinine more then 150/10 and obstructive uropathy, status post Beck catheter placement and drained about 2 L on admission, since then the patient has a Beck catheter with a bedside drain bag no. urine is cloudy and the patient is being treated for possible UTI secondary to yeast, on Diflucan. Denies any complaints. No chest pain, no palpitation, no fever, no cough, no abdominal pain. No nausea, vomiting or diarrhea. PHYSICAL EXAMINATION: GENERAL: Mr. Palmer is a 77 years old elderly male, very cachectic, not in distress. VITAL SIGNS: As follows; blood pressure 100/58, pulse 101, respirations 20, temperature 98.1, and saturation 97%. Height 5 feet 5 inches and weight is 100 pounds. HEENT: Pupils normal and reactive to light and accommodation. Conjunctivae pink. Sclerae anicteric. Tongue is moist. Trachea is midline. LUNGS: Symmetric on both sides. Bilateral breath sounds present. Clear on auscultation. CVS: [place] at the sixth intercostal space, midclavicular line, S1, S2 audible. No murmur or gallop. ABDOMEN: Normal in appearance, soft tympanic, no guarding, no hepatosplenomegaly. 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 Sensory and motor system is grossly within normal limits. EXTREMITIES: No cyanosis, no clubbing, no edema. The patient has chronic skin changes in both lower extremities secondary to chronic edema. Dorsalis pedis pulses are very feeble. CURRENT MEDICATIONS: Include as follows: Diflucan 100 mg p.o. daily, Flomax 0.4 mg p.o. daily, subcutaneous heparin 5000 q.12 hours, Nephro-Aleksandra one tablet daily, Pepcid 20 mg p.o. daily, calcium acetate 667 mg p.o. t.i.d., Epogen 10,000 units subcutaneous two times a week, Protonix 20 mg p.o. daily, calcitriol 0.25 mcg p.o. daily, sodium bicarbonate 650 mg p.o. q.8 hours, vitamin B12 1000 mcg subcutaneous daily. LABORATORY DATA: Include as follows: WBC 8.3, hemoglobin 9.2, hematocrit is 27.6 and platelets 154. Sodium 129, potassium 5.7, chloride 100, CO2 18, BUN 90, creatinine 5.2, glucose 73 and calcium 7.5. Total bilirubin 0.4, AST 20, ALT 42, alkaline phosphatase 90, total protein is 5.7, albumin is 2.2, and globulin is 3.5. ASSESSMENT: In summary, Mr. 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 Renal failure, acute on chronic kidney disease, this might be his baseline. 2. Urinary tract infection, repeat urinalysis and urine cultures and also change the Beck catheter in a.m. 3. Hyperkalemia. 4. Metabolic acidosis, secondary to renal failure. We will give Kayexalate 15 g p.o. x1 dose. 5. Anemia. 6. Rule out multiple myeloma. 7. Chronic kidney disease. 8. Secondary hyperparathyroidism. Continue calcitriol and also Epogen. 9. Cardiomyopathy. PLAN: Followup with Dr. Wang and I will followup with data warehouse consultant and also urology. Overall prognosis is guarded. Followup with ID for UTI. Thank you for allowing me to participate in our patient's care. Ruthann Duarte MD
[2017-06-24] MEDS: Sodium Chloride 0.45% 1,000 ML IV SCH ×3 (05:55→21:57)
[2017-06-24] MEDS: Multivitamin Vitamin B Complex (Nephro-Vite) Tab PO SCH (09:00)
[2017-06-24] MEDS: Pantoprazole 20 mg EC Tab PO SCH (10:58)
--- NOTE | 2017-06-24 19:52 | CP.PCM.PN ---
Subjective - Date & Time of Evaluation Date of Evaluation: 06/24/17 Time of Evaluation: 19:52 - Subjective Subjective: pt is seen and examined, follow up consult is dictated #[id number] Objective - Vital Signs/Intake and Output Vital Signs (last 24 hours): Temp Pulse Resp BP Pulse Ox 98.5 F 103 H 18 107/65 99 06/24/17 15:25 06/24/17 15:25 06/24/17 15:25 06/24/17 15:25 06/24/17 15:25 Intake and Output: 06/24/17 06/25/17 18:59 06:59 Intake Total 930 Output Total 1300 Balance -370 - Medications Medications: Current Medications Calcitriol (Rocaltrol) 0.25 mcg PO DAILY [facility] Last Admin: 06/24/17 10:57 Dose: 0.25 mcg Calcium Acetate (Phoslo) 667 mg PO TID [facility] Last Admin: 06/24/17 18:07 Dose: 667 mg Epoetin Pepe (Procrit) 10,000 unit SC TUTH [facility] Last Admin: 06/21/17 13:41 Dose: 10,000 unit Famotidine (Pepcid) 20 mg PO DAILY [facility] Last Admin: 06/24/17 10:57 Dose: 20 mg Fluconazole (Diflucan) 100 mg PO DAILY [facility] Heparin Sodium (Porcine) (Heparin) 5,000 units SC Q12 [facility] Last Admin: 06/24/17 11:00 Dose: Not Given Sodium Chloride (Sodium Chloride 0.45%) 1,000 mls @ 60 mls/hr IV .[id number] [facility] Pantoprazole Sodium (Protonix Ec Tab) 20 mg PO DAILY [facility] Last Admin: 06/24/17 10:58 Dose: 20 mg Sodium Bicarbonate (Sodium Bicarbonate Tab) 650 mg PO Q8 [facility] Last Admin: 06/24/17 14:55 Dose: Not Given Tamsulosin HCl (Flomax) 0.4 mg PO DAILY [facility] Last Admin: 06/24/17 10:57 Dose: 0.4 mg Vitamin B Complex/Vit C/Folic Acid (Nephro-Aleksandra) 1 tab PO 0800 [facility] Last Admin: 06/24/17 09:00 Dose: 1 tab - Labs Labs: 06/23/17 07:17 06/23/17 07:17 PT 14.4 SECONDS (9.7-12.2) H 06/15/17 06:08 INR 1.3 06/15/17 06:08 APTT 39 SECONDS (21-34) H 06/15/17 06:08
--- NOTE | 2017-06-24 20:22 | CP.PCM.PN ---
Subjective - Date & Time of Evaluation Date of Evaluation: 06/24/17 Time of Evaluation: 10:10 - Subjective Subjective: Patient without clinical events Objective - Vital Signs/Intake and Output Vital Signs (last 24 hours): Temp Pulse Resp BP Pulse Ox 98.5 F 103 H 18 107/65 99 06/24/17 15:25 06/24/17 15:25 06/24/17 15:25 06/24/17 15:25 06/24/17 15:25 Intake and Output: 06/24/17 06/25/17 18:59 06:59 Intake Total 930 Output Total 1300 Balance -370 - Medications Medications: Current Medications Calcitriol (Rocaltrol) 0.25 mcg PO DAILY [facility] Last Admin: 06/24/17 10:57 Dose: 0.25 mcg Calcium Acetate (Phoslo) 667 mg PO TID [facility] Last Admin: 06/24/17 18:07 Dose: 667 mg Epoetin Pepe (Procrit) 10,000 unit SC TUTH [facility] Last Admin: 06/21/17 13:41 Dose: 10,000 unit Famotidine (Pepcid) 20 mg PO DAILY [facility] Last Admin: 06/24/17 10:57 Dose: 20 mg Fluconazole (Diflucan) 100 mg PO DAILY [facility] Heparin Sodium (Porcine) (Heparin) 5,000 units SC Q12 [facility] Last Admin: 06/24/17 11:00 Dose: Not Given Sodium Chloride (Sodium Chloride 0.45%) 1,000 mls @ 60 mls/hr IV .[id number] [facility] Pantoprazole Sodium (Protonix Ec Tab) 20 mg PO DAILY [facility] Last Admin: 06/24/17 10:58 Dose: 20 mg Sodium Bicarbonate (Sodium Bicarbonate Tab) 650 mg PO Q8 [facility] Last Admin: 06/24/17 14:55 Dose: Not Given Tamsulosin HCl (Flomax) 0.4 mg PO DAILY [facility] Last Admin: 06/24/17 10:57 Dose: 0.4 mg Vitamin B Complex/Vit C/Folic Acid (Nephro-Aleksandra) 1 tab PO 0800 [facility] Last Admin: 06/24/17 09:00 Dose: 1 tab - Labs Labs: 06/23/17 07:17 06/23/17 07:17 PT 14.4 SECONDS (9.7-12.2) H 06/15/17 06:08 INR 1.3 06/15/17 06:08 APTT 39 SECONDS (21-34) H 06/15/17 06:08 - Head Exam Head Exam: ATRAUMATIC, NORMAL INSPECTION - Eye Exam Eye Exam: EOMI, PERRL Pupil Exam: NORMAL ACCOMODATION - ENT Exam ENT Exam: Mucous Membranes Moist - Neck Exam Neck Exam: Full ROM, Normal Inspection - Cardiovascular Exam Cardiovascular Exam: REGULAR RHYTHM, +S1, +S2 - GI/Abdominal Exam GI & Abdominal Exam: Soft, Normal Bowel Sounds - Extremities Exam Extremities Exam: Full ROM - Neurological Exam Neurological Exam: Alert, Oriented x3 - Skin Skin Exam: Warm Assessment and Plan - Assessment and Plan (Free Text) Assessment: 1. Cardiomyopathy with Low EF 2. Hypotension 3. Bladder tumor (?Malignancy) 4. Pleural effusion s/p Tap 5. CKD 6. Marked wsting and weight loss Recommend Bladder tumor biopsy r/o malignancy
[2017-06-25 01:07] LABS: RBC URINE 75 /hpf (0-3); URINE BILIRUBIN NEGATIVE (NEGATIVE); URINE BLOOD 2+ (NEGATIVE); URINE COLOR Yellow (YELLOW); URINE GLUCOSE (UA) NORMAL (Normal); URINE KETONE NEGATIVE (NEGATIVE); URINE LEUKOCYTE ESTERASE 3+ Leu/uL (Negative); URINE PROTEIN 2+ mg/dL (NEGATIVE); URINE UROBILINOGEN NORMAL mg/dL (0.2-1.0); WBC CLUMPS MANY /hpf; WBC URINE 600 /hpf (0-5)
[2017-06-25 07:48] LABS: CALCIUM 7.7 mg/dl (8.6-10.4); POTASSIUM 5.2 mmol/L (3.6-5.2)
[2017-06-25] MEDS: Multivitamin Vitamin B Complex (Nephro-Vite) Tab PO SCH (09:00)
[2017-06-25] MEDS: Pantoprazole 20 mg EC Tab PO SCH (09:28)
[2017-06-25] MEDS: Sodium Chloride 0.45% 1,000 ML IV SCH ×2 (09:41→14:52)
--- NOTE | 2017-06-25 11:21 | PN ---
FOLLOWUP RENAL CONSULTATION LOCATION: The patient is located in room #658, bed B. REQUESTING PHYSICIAN: Dr. Akhil Wang. REASON FOR THE FOLLOWUP: Acute renal failure, chronic kidney disease, bilateral hydroureteronephrosis, bladder mass and anemia, secondary hyperparathyroidism, HISTORY OF PRESENT ILLNESS: The patient is 77 years old, elderly, very cachectic, male with a history of questionable nephrolithiasis, was admitted with severe malnutrition, severe cachexia, severe anemia and severe renal failure requiring transfusion of 4 units of packed RBCs on admission and also the Beck catheter placement for obstructive uropathy. His serum creatinine improved from 10.5 to about 4.2 now with the Beck catheter, and the patient is being treated for a UTI with yeast. He denies any complaints. No chest pain, no palpitation, no fever, no cough. No nausea, vomiting, and no diarrhea. PHYSICAL EXAMINATION: VITAL SIGNS: As follows; blood pressure 107/65, pulse 103, respirations 18, temperature 98.5, and saturation 99%. Height 5 feet 5 inches and weight is 100 pounds. GENERAL: On physical exam, the patient is a 77-year-old, elderly, very cachectic male, thin built, not in distress. HEENT: Pupils are normal and reactive to light and accommodation. Conjunctivae pink. Sclerae anicteric. Tongue is moist. Trachea is midline. LUNGS: Symmetric on both sides. Bilateral breath sounds present, decreased on the left side and clear on the right side. CARDIOVASCULAR SYSTEM: [place] at the fifth intercostal space, midclavicular line. S1 and S2 audible. No murmur, no gallop. ABDOMEN: Normal in appearance. Soft, tympanic. No guarding. No rigidity. No hepatosplenomegaly. CENTRAL NERVOUS SYSTEM: The patient is alert, awake, oriented x3. Nonfocal neuro examination. Cranial nerves II through XII grossly intact. Sensory and motor system is within normal limits. EXTREMITIES: No cyanosis, no clubbing, no edema. The patient has chronic skin changes from the previous edema. Dorsalis pedis pulses are feeble. CURRENT MEDICATIONS: Include as follows: Diflucan 100 mg p.o. daily, Flomax 0.4 mg p.o. daily, subcu heparin 5000 q. 12 hours, Nephro-Aleksandra 1 tablet p.o. daily, Pepcid 20 mg p.o. daily, calcium acetate 667 mg p.o. t.i.d., Procrit 10,000 units Sunday and , Protonix 40 mg p.o. daily, Rocaltrol 0.25 mcg p.o. daily, sodium bicarbonate 650 mg p.o. q. 8 hours, and IV fluids half-normal saline at 60 mL/hour. LABORATORY DATA: No new labs are available as of today and from 06/23/2017, H and H 9.2 and 27.6, platelets 154. Sodium 129, potassium 5.7, chloride 100, CO2 of 18, BUN 90, creatinine 4.2, glucose 73, and uric acid 7.5. Total bili 0.4, AST 20, ALT 42, alkaline phosphatase 90, total protein 5.7, and albumin is 2.2. ASSESSMENT AND PLAN: In summary, the patient is 77 years old elderly, male with a history of anemia and renal failure, very cachectic. 1. Renal failure, [id number] kidney disease. This may be his baseline now. 2. Hydroureteronephrosis, rule out malignancy. 3. Bladder mass, etiology is not clear, cannot rule out bladder cancer, rule out bladder stone. 4. Anemia, rule out multiple myeloma and/or secondary to chronic kidney disease. 5. Cardiomyopathy. 6. Secondary hyperparathyroidism. Continue calcitriol 0.25 mcg p.o. daily. 7. Hypercalcemia, status post Kayexalate given last night and no new labs for today. Repeat BMP in the a.m. and continue low-sodium, low-potassium diet. Overall prognosis is very poor. Thank you for allowing me to participate in your patient's care. Ruthann Duarte MD [facility]
--- NOTE | 2017-06-25 19:50 | CP.PCM.PN ---
Subjective - Date & Time of Evaluation Date of Evaluation: 06/25/17 Time of Evaluation: 19:50 - Subjective Subjective: pt is seen and examined, follow up consult is dictated #[id number] Objective - Vital Signs/Intake and Output Vital Signs (last 24 hours): Temp Pulse Resp BP Pulse Ox 99 F 100 H 18 104/67 97 06/25/17 15:00 06/25/17 15:00 06/25/17 15:00 06/25/17 07:10 06/25/17 15:00 Intake and Output: 06/25/17 06/26/17 18:59 06:59 Intake Total 1560 Output Total 2100 Balance -540 - Medications Medications: Current Medications Calcitriol (Rocaltrol) 0.25 mcg PO DAILY [facility] Last Admin: 06/25/17 09:28 Dose: 0.25 mcg Epoetin Pepe (Procrit) 10,000 unit SC TUTH [facility] Last Admin: 06/21/17 13:41 Dose: 10,000 unit Famotidine (Pepcid) 20 mg PO DAILY [facility] Last Admin: 06/25/17 09:28 Dose: 20 mg Fluconazole (Diflucan) 100 mg PO DAILY [facility] Last Admin: 06/25/17 09:27 Dose: 100 mg Heparin Sodium (Porcine) (Heparin) 5,000 units SC Q12 [facility] Last Admin: 06/25/17 09:32 Dose: Not Given Sodium Chloride (Sodium Chloride 0.45%) 1,000 mls @ 60 mls/hr IV .[id number] [facility] Last Admin: 06/25/17 09:41 Dose: Not Given Pantoprazole Sodium (Protonix Ec Tab) 20 mg PO DAILY [facility] Last Admin: 06/25/17 09:28 Dose: 20 mg Sodium Bicarbonate (Sodium Bicarbonate Tab) 650 mg PO Q8 [facility] Last Admin: 06/25/17 14:53 Dose: 650 mg Tamsulosin HCl (Flomax) 0.4 mg PO DAILY [facility] Last Admin: 06/25/17 09:28 Dose: 0.4 mg Vitamin B Complex/Vit C/Folic Acid (Nephro-Aleksandra) 1 tab PO 0800 [facility] Last Admin: 06/25/17 09:00 Dose: 1 tab - Labs Labs: 06/23/17 07:17 06/25/17 07:08 PT 14.4 SECONDS (9.7-12.2) H 06/15/17 06:08 INR 1.3 06/15/17 06:08 APTT 39 SECONDS (21-34) H 06/15/17 06:08
--- NOTE | 2017-06-25 20:53 | CP.PCM.PN ---
Subjective - Date & Time of Evaluation Date of Evaluation: 06/25/17 Time of Evaluation: 09:40 - Subjective Subjective: Patient without cardiac events Objective - Vital Signs/Intake and Output Vital Signs (last 24 hours): Temp Pulse Resp BP Pulse Ox 99 F 100 H 18 104/67 97 06/25/17 15:00 06/25/17 15:00 06/25/17 15:00 06/25/17 07:10 06/25/17 15:00 Intake and Output: 06/25/17 06/26/17 18:59 06:59 Intake Total 1560 Output Total 2100 Balance -540 - Medications Medications: Current Medications Calcitriol (Rocaltrol) 0.25 mcg PO DAILY [facility] Last Admin: 06/25/17 09:28 Dose: 0.25 mcg Epoetin Pepe (Procrit) 10,000 unit SC TUTH [facility] Last Admin: 06/21/17 13:41 Dose: 10,000 unit Famotidine (Pepcid) 20 mg PO DAILY [facility] Last Admin: 06/25/17 09:28 Dose: 20 mg Fluconazole (Diflucan) 100 mg PO DAILY [facility] Last Admin: 06/25/17 09:27 Dose: 100 mg Heparin Sodium (Porcine) (Heparin) 5,000 units SC Q12 [facility] Last Admin: 06/25/17 09:32 Dose: Not Given Sodium Chloride (Sodium Chloride 0.45%) 1,000 mls @ 60 mls/hr IV .[id number] [facility] Last Admin: 06/25/17 09:41 Dose: Not Given Pantoprazole Sodium (Protonix Ec Tab) 20 mg PO DAILY [facility] Last Admin: 06/25/17 09:28 Dose: 20 mg Sodium Bicarbonate (Sodium Bicarbonate Tab) 650 mg PO Q8 [facility] Last Admin: 06/25/17 14:53 Dose: 650 mg Tamsulosin HCl (Flomax) 0.4 mg PO DAILY [facility] Last Admin: 06/25/17 09:28 Dose: 0.4 mg Vitamin B Complex/Vit C/Folic Acid (Nephro-Aleksandra) 1 tab PO 0800 [facility] Last Admin: 06/25/17 09:00 Dose: 1 tab - Labs Labs: 06/23/17 07:17 06/25/17 07:08 PT 14.4 SECONDS (9.7-12.2) H 08/25/17 06:08 INR 1.3 06/15/17 06:08 APTT 39 SECONDS (21-34) H 06/15/17 06:08 - Head Exam Head Exam: ATRAUMATIC, NORMAL INSPECTION - Eye Exam Eye Exam: EOMI, PERRL Pupil Exam: NORMAL ACCOMODATION - ENT Exam ENT Exam: Mucous Membranes Moist - Neck Exam Neck Exam: Full ROM, Normal Inspection - Respiratory Exam Respiratory Exam: Clear to Ausculation Bilateral, NORMAL BREATHING PATTERN - Cardiovascular Exam Cardiovascular Exam: REGULAR RHYTHM, +S1, +S2 - GI/Abdominal Exam GI & Abdominal Exam: Soft, Normal Bowel Sounds - Extremities Exam Extremities Exam: Full ROM, Normal Capillary Refill - Back Exam Back Exam: NORMAL INSPECTION - Neurological Exam Neurological Exam: Alert, Awake, Oriented x3 Assessment and Plan - Assessment and Plan (Free Text) Assessment: 1. Cardiomyopathy with Low EF 2. Hypotension 3. Bladder tumor (?Malignancy) 4. Pleural effusion s/p Tap 5. CKD 6. Marked wsting and weight loss Recommend Bladder tumor biopsy r/o malignancy
[2017-06-26] MEDS: Sodium Chloride 0.45% 1,000 ML IV SCH ×3 (02:20→22:28)
--- NOTE | 2017-06-26 02:35 | PN ---
FOLLOWUP RENAL CONSULTATION LOCATION: The patient is located in room 658, bed B. REQUESTING PHYSICIAN: Dr. Akhil Wang. REASON FOR FOLLOWUP: Acute renal failure, chronic kidney disease, bilateral hydroureteronephrosis, bladder mass, anemia, hyperkalemia, metabolic acidosis. HISTORY OF PRESENT ILLNESS: The patient is 77 years old, elderly, very cachectic male with questionable nephrolithiasis, was admitted with severe anemia, severe renal failure, metabolic acidosis, hyperkalemia, and bladder outlet obstruction, status post Beck catheter placement since admission. The patient has a good urine output, but urine is cloudy. The patient is not in acute distress. Denies any nausea, vomiting, diarrhea. Denies any chest pain or palpitations. Denies any fever or cough. PHYSICAL EXAMINATION: VITAL SIGNS: Today, as follows; blood pressure 104/67, pulse 100, respirations 18, temperature 99, and saturation 97%. Height 5 feet 5 inches and weight is 100 pounds. GENERAL: On physical examination, the patient is a 77-year-old elderly, male, very cachectic, not in distress. HEENT: Pupils are normal and reactive to light and accommodation. Conjunctivae slightly pale. Sclerae anicteric. Tongue is moist. Trachea is midline. LUNGS: Symmetric on both sides. Occasional basal crackles on the left side, right side clear. CARDIOVASCULAR SYSTEM: [place] at the sixth intercostal space, midclavicular line. S1 and S2 audible. No murmur, no gallop. ABDOMEN: Normal in appearance. Soft, tympanic. No guarding. No rigidity. No hepatosplenomegaly. CENTRAL NERVOUS SYSTEM: The patient is alert, awake, oriented x2 to x3. Sensory and motor system is grossly within normal limits. EXTREMITIES: No cyanosis, no clubbing, no edema. The patient has chronic skin changes in both lower extremities. The patient is mostly bedridden since admission. CURRENT MEDICATIONS: Include as follows: Diflucan 100 mg p.o. daily, Flomax 0.4 mg p.o. daily, subcu heparin 5000 units q. 12 hours, Nephro-Aleksandra 1 tablet daily, Pepcid 20 mg p.o. daily, Procrit 10,000 units subcu 2 times a week, Sunday and , and Protonix 20 mg p.o. daily, calcitriol 0.25 mcg p.o. daily, sodium bicarbonate 650 p.o. q. 8 hours, IV fluids half-normal saline at 66 mL/hour. CURRENT LABORATORY DATA: As of 06/25/2017: Sodium 131, potassium 5.2, chloride 99, CO2 of 18, BUN 91, creatinine 4.7, glucose 98, calcium 7.7, phosphorous is 4.0. Urinalysis; yellow, turbid, pH 7, specific gravity 1.009, protein 2+, glucose normal, ketones negative, blood 2+, nitrites negative, urobilinogen negative, leukocyte esterase 3+, wbc is 600, rbc is 75, and wbc clumps many and casts 11-20 and yeast budding many. Urine culture as of now 819 and 828, positive for yeast. Repeat culture from 06/24/2017, is pending. ASSESSMENT: In summary, the patient is a 77-year-old elderly male with cardiomyopathy; anemia; secondary hyperparathyroidism; bilateral hydroureteronephrosis; bladder outlet obstruction; bladder mass, status post Beck catheter placement; anemia, status post transfusion about 4 units on admission; being treated for urinary tract infection with yeast. 1. Renal failure secondary to [id number] kidney disease. This may be his baseline between 4 to 4.5 at this time. 2. Bilateral hydroureteronephrosis, rule out malignancy. 3. Bladder mass. 4. Metabolic acidosis. 5. Hyperkalemia secondary to renal failure. 6. Anemia. 7. Cardiomyopathy. 8. Rule out multiple myeloma. PLAN: Continue Procrit, continue calcitriol, continue sodium bicarb, and continue to monitor BMP and repeat urine culture and adjust antibiotics as per ID recommendations. Follow up with ID and follow up with urology for possible cystoscopy and stent placement. Consider physical therapy at bedside and out of bed to chair. Consider subacute rehab placement, if no urology intervention was going to be done at this time. The patient is stable from the renal standpoint at this time. The patient is not willing for dialysis at this time. Thank you for allowing me to participate in your patient's care. Ruthann Duarte MD
--- NOTE | 2017-06-26 09:10 | CON ---
DATE: The patient located in room 658, bed B. REQUESTING PHYSICIAN: Akhil Wang MD. REASON FOR FOLLOWUP: Acute renal failure, chronic kidney disease, obstructive uropathy, anemia, in for further evaluation. 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 Patient has a Beck catheter since admission and also being treated for UTI with yeast. Patient is not in acute distress and patient is feeling better and denies any nausea, vomiting, diarrhea. Denies any fever and cough. No chest pain, no palpitations. PHYSICAL EXAMINATION: GENERAL: Mr. Palmer is a 77 years old elderly very cachectic male, not in distress, resting comfortably. VITAL SIGNS: As follows; blood pressure 105/61, pulse 97, respiration 20, temperature 98.8, saturation 97%, height 5 feet 5 inches and weight is 100 pounds. HEENT: Pupils normal, reactive to light and accommodation. Conjunctiva slightly pink. Sclerae anicteric. Tongue is moist. Trachea is midline. CARDIOVASCULAR: [place] at the fifth intercostal space, midclavicular line. S1 and S2 audible. No murmur, no gallop.. LUNGS: Symmetry on both sides, bilateral breath sounds present. Left basal crackles present. ABDOMEN: Normal in appearance, soft and tympanitic. No guarding. No rigidity. No hepatosplenomegaly. CENTRAL NERVOUS SYSTEM: The patient is alert, awake and oriented x2-3. Sensory and motor system is grossly within normal limits. EXTREMITIES: No cyanosis, no clubbing. No edema of the legs at this time. SKIN: Patient has chronic skin changes due to chronic edema. LABORATORY DATA: Include, as follows as of 06/22/2017: WBC 6.5, hemoglobin 9, hematocrit is 27.4, platelets 133. Sodium 135, potassium 5.4, chloride 104, CO2 of 22, BUN 85, creatinine 4.5, glucose 79, calcium 7.3, total bili 0.5, AST 29, ALT 50, alkaline phosphatase 93, total protein 6, albumin is 2.3, globulin 3.8 and beta-2 microglobulin 16.4 as of 06/21/2017. CURRENT MEDICATIONS: Include as follows; Diflucan 100 mg p.o. daily, Flomax 0.4 mg p.o. daily, Nephro-Aleksandra 1 tablet daily, Pepcid 20 mg p.o. daily, PhosLo 667 mg p.o. t.i.d. and Procrit 10,000 units up to Sunday and and Rocaltrol 0.25 mcg p.o. daily, Sodium bicarb 650 mg p.o. q. 8 hours, IV fluids, half normal saline at 60 mL per hour and vitamin B12 1000 mcg by mouth daily. ASSESSMENT AND PLAN: 1. Renal failure, most likely chronic kidney disease V. This might be his new baseline. 2. Cardiomyopathy. 3. Bilateral hydroureteronephrosis, rule out bladder mass and rule out bladder cancer. 4. Anemia, most likely secondary to renal failure cannot rule out underlying multiple myeloma, cannot rule out monoclonal gammopathy of undetermined significance. 5. Bladder mass, rule out malignancy. PLAN: Continue IV fluids and a half normal saline. We will continue 60 mL per hour and increase p.o. fluid intake, advice to walk, advice to drink more and more fluid, and also continue the Procrit as per the hematology and follow up with the hematology for possible bone marrow biopsy and also possible with the urology for cystoscopy and possible stent placement. This may be new baseline serum creatinine between 4 and 4.5 at this time. Repeat labs in a.m. Thank you for allowing me to participating in your patient's care and also advise low potassium diet. The patient has a good urine output and a 24-hour urine volume is above 2150. Ruthann Duarte MD
[2017-06-26] MEDS: Pantoprazole 20 mg EC Tab PO SCH (10:34)
[2017-06-26] MEDS: Multivitamin Vitamin B Complex (Nephro-Vite) Tab PO SCH ×2 (10:35→10:36)
[2017-06-26] MEDS: Epoetin Alfa 10,000 unit/ml Dialysis SC SCH (10:42)
[2017-06-26] MEDS ORDERED: EPOETIN ALFA 10,000 UNIT/ML ML SC SCH ×2 (10:45→14:00)
[2017-06-26 11:45] LABS: POTASSIUM 5.1 mmol/L (3.6-5.2)
[2017-06-26 11:48] LABS: CALCIUM 7.2 mg/dl (8.6-10.4)
--- NOTE | 2017-06-26 12:08 | CP.PCM.PN ---
Subjective - Date & Time of Evaluation Date of Evaluation: 06/26/17 Time of Evaluation: 12:08 - Subjective Subjective: pt is farshad nd examined, follow up consult is dictated #[id number] Objective - Vital Signs/Intake and Output Vital Signs (last 24 hours): Temp Pulse Resp BP Pulse Ox 99.4 F 108 H 18 108/68 97 06/26/17 08:00 06/26/17 08:00 06/26/17 08:00 06/26/17 08:00 06/26/17 08:00 Intake and Output: 06/26/17 06/26/17 06:59 18:59 Intake Total 300 480 Output Total 1250 Balance -950 480 - Medications Medications: Current Medications Calcitriol (Rocaltrol) 0.25 mcg PO DAILY [facility] Last Admin: 06/26/17 10:34 Dose: 0.25 mcg Calcium Acetate (Phoslo) 667 mg PO TID [facility] Epoetin Pepe (Procrit) 10,000 unit SC TUTH [facility] Last Admin: 06/26/17 11:27 Dose: Not Given Famotidine (Pepcid) 20 mg PO DAILY [facility] Last Admin: 06/26/17 10:35 Dose: 20 mg Fluconazole (Diflucan) 100 mg PO DAILY [facility] Last Admin: 06/26/17 10:34 Dose: 100 mg Sodium Chloride (Sodium Chloride 0.45%) 1,000 mls @ 60 mls/hr IV .[id number] [facility] Last Admin: 06/26/17 05:51 Dose: 60 mls/hr Pantoprazole Sodium (Protonix Ec Tab) 20 mg PO DAILY [facility] Last Admin: 06/26/17 10:34 Dose: 20 mg Sodium Bicarbonate (Sodium Bicarbonate Tab) 650 mg PO Q8 [facility] Last Admin: 06/26/17 05:44 Dose: 650 mg Tamsulosin HCl (Flomax) 0.4 mg PO DAILY [facility] Last Admin: 06/26/17 10:35 Dose: 0.4 mg Vitamin B Complex/Vit C/Folic Acid (Nephro-Aleksandra) 1 tab PO 0800 [facility] Last Admin: 06/26/17 10:36 Dose: 1 tab - Labs Labs: 06/23/17 07:17 06/26/17 11:19 PT 14.4 SECONDS (9.7-12.2) H 06/15/17 06:08 INR 1.3 06/15/17 06:08 APTT 39 SECONDS (21-34) H 06/15/17 06:08
--- NOTE | 2017-06-26 13:44 | CP.PCM.PN ---
Subjective - Date & Time of Evaluation Date of Evaluation: 06/26/17 Time of Evaluation: 09:00 - Subjective Subjective: urine c/s Positive gram neg rods as well as fungus iv rx ordered for eval Objective - Vital Signs/Intake and Output Vital Signs (last 24 hours): Temp Pulse Resp BP Pulse Ox 99.4 F 103 H 18 108/68 97 06/26/17 08:00 06/26/17 08:08 06/26/17 08:00 06/26/17 08:00 06/26/17 08:00 Intake and Output: 06/26/17 06/26/17 06:59 18:59 Intake Total 300 480 Output Total 1250 Balance -950 480 - Medications Medications: Current Medications Calcitriol (Rocaltrol) 0.25 mcg PO DAILY [facility] Last Admin: 06/26/17 10:34 Dose: 0.25 mcg Calcium Acetate (Phoslo) 667 mg PO TID [facility] Epoetin Pepe (Procrit) 10,000 unit SC TUTH [facility] Last Admin: 06/26/17 11:27 Dose: Not Given Famotidine (Pepcid) 20 mg PO DAILY [facility] Last Admin: 06/26/17 10:35 Dose: 20 mg Fluconazole (Diflucan) 100 mg PO DAILY [facility] Last Admin: 06/26/17 10:34 Dose: 100 mg Sodium Chloride (Sodium Chloride 0.45%) 1,000 mls @ 60 mls/hr IV .[id number] [facility] Last Admin: 06/26/17 05:51 Dose: 60 mls/hr Meropenem 500 mg/ Sodium (Chloride) 100 mls @ 100 mls/hr IVPB Q12 [facility] Pantoprazole Sodium (Protonix Ec Tab) 20 mg PO DAILY [facility] Last Admin: 06/26/17 10:34 Dose: 20 mg Sodium Bicarbonate (Sodium Bicarbonate Tab) 650 mg PO Q8 [facility] Last Admin: 06/26/17 05:44 Dose: 650 mg Tamsulosin HCl (Flomax) 0.4 mg PO DAILY [facility] Last Admin: 06/26/17 10:35 Dose: 0.4 mg Vitamin B Complex/Vit C/Folic Acid (Nephro-Aleksandra) 1 tab PO 0800 [facility] Last Admin: 06/26/17 10:36 Dose: 1 tab - Labs Labs: 06/23/17 07:17 06/26/17 11:19 PT 14.4 SECONDS (9.7-12.2) H 06/15/17 06:08 INR 1.3 06/15/17 06:08 APTT 39 SECONDS (21-34) H 06/15/17 06:08 - Constitutional Appears: Non-toxic, Cachectic - Eye Exam Eye Exam: absent: Scleral icterus - ENT Exam ENT Exam: Mucous Membranes Dry - Neck Exam Neck Exam: absent: Lymphadenopathy - Respiratory Exam Respiratory Exam: Decreased Breath Sounds - Cardiovascular Exam Cardiovascular Exam: REGULAR RHYTHM Assessment and Plan (1) Hepatitis C antibody positive in blood Status: Acute (2) Cachexia Status: Acute (3) Cardiomyopathy Status: Acute (4) ARF (acute renal failure) Status: Acute (5) Hyperkalemia Status: Acute (6) Metabolic acidosis Status: Acute (7) Symptomatic anemia Status: Acute
[2017-06-26 16:02] VITALS: RESP 20; O2SAT 98
[2017-06-26] MEDS: Meropenem 500 MG in Sodium Chloride 0.9% 100 ML IVPB SCH (22:31)
--- NOTE | 2017-06-27 00:22 | CP.PCM.PN ---
Subjective - Date & Time of Evaluation Date of Evaluation: 06/26/17 Time of Evaluation: 09:10 - Subjective Subjective: Patient seen and evaluated Comfortable Objective - Vital Signs/Intake and Output Vital Signs (last 24 hours): Temp Pulse Resp BP Pulse Ox 98.7 F 101 H 20 94/58 L 98 06/26/17 16:01 06/26/17 16:01 06/26/17 16:01 06/26/17 16:01 06/26/17 16:01 Intake and Output: 06/26/17 06/27/17 18:59 06:59 Intake Total 1510 Output Total 1100 700 Balance 410 -700 - Medications Medications: Current Medications Calcitriol (Rocaltrol) 0.25 mcg PO DAILY [facility] Last Admin: 06/26/17 10:34 Dose: 0.25 mcg Calcium Acetate (Phoslo) 667 mg PO TID [facility] Last Admin: 06/26/17 18:42 Dose: 667 mg Epoetin Pepe (Procrit) 10,000 unit SC TUTH [facility] Last Admin: 06/26/17 11:27 Dose: Not Given Famotidine (Pepcid) 20 mg PO DAILY [facility] Last Admin: 06/26/17 10:35 Dose: 20 mg Fluconazole (Diflucan) 100 mg PO DAILY [facility] Last Admin: 06/26/17 10:34 Dose: 100 mg Sodium Chloride (Sodium Chloride 0.45%) 1,000 mls @ 60 mls/hr IV .[id number] [facility] Last Admin: 06/26/17 22:28 Dose: 60 mls/hr Meropenem 500 mg/ Sodium (Chloride) 100 mls @ 100 mls/hr IVPB Q12 [facility] Last Admin: 06/26/17 22:31 Dose: 100 mls/hr Pantoprazole Sodium (Protonix Ec Tab) 20 mg PO DAILY [facility] Last Admin: 06/26/17 10:34 Dose: 20 mg Sodium Bicarbonate (Sodium Bicarbonate Tab) 650 mg PO Q8 [facility] Last Admin: 06/26/17 22:28 Dose: 650 mg Tamsulosin HCl (Flomax) 0.4 mg PO DAILY [facility] Last Admin: 06/26/17 10:35 Dose: 0.4 mg Vitamin B Complex/Vit C/Folic Acid (Nephro-Aleksandra) 1 tab PO 0800 [facility] Last Admin: 06/26/17 10:36 Dose: 1 tab - Labs Labs: 06/23/17 07:17 06/26/17 11:19 PT 14.4 SECONDS (9.7-12.2) H 06/15/17 06:08 INR 1.3 06/15/17 06:08 APTT 39 SECONDS (21-34) H 06/15/17 06:08 - Head Exam Head Exam: ATRAUMATIC, NORMAL INSPECTION - Eye Exam Eye Exam: EOMI, PERRL - ENT Exam ENT Exam: Mucous Membranes Moist, Normal Exam - Neck Exam Neck Exam: Full ROM - Respiratory Exam Respiratory Exam: Clear to Ausculation Bilateral, NORMAL BREATHING PATTERN - Cardiovascular Exam Cardiovascular Exam: REGULAR RHYTHM, +S1, +S2 - GI/Abdominal Exam GI & Abdominal Exam: Soft, Normal Bowel Sounds - Extremities Exam Extremities Exam: Full ROM - Neurological Exam Neurological Exam: Alert, Oriented x3 - Psychiatric Exam Psychiatric exam: Normal Mood - Skin Skin Exam: Warm Assessment and Plan - Assessment and Plan (Free Text) Assessment: 1. Bladder tumor' 2. Cardiomyopathy with low EF 3. CKD 4. Weight loss awaiting for tumor work up
--- NOTE | 2017-06-27 01:02 | CON ---
DATE: FOLLOWUP RENAL CONSULTATION LOCATION: Patient is located in room 658, bed B. REQUESTED BY: Dr. Akhil Wang. REASON FOR FOLLOWUP: 1. Acute renal failure. 2. Chronic kidney disease. 3. Anemia secondary to hyperparathyroidism. 4. Obstructive uropathy. SUBJECTIVE: Mr. Palmer is a 77-year-old elderly very cachectic male with a history of questionable nephrolithiasis, was admitted through the emergency room with severe generalized weakness, severe anemia, renal failure, hypokalemia, metabolic acidosis, cachexia. The patient was found to have obstructive uropathy in the emergency room on admission. Initially, a Beck catheter was placed with good urine outpatient. The renal function slowly improving. Now serum creatinine in the range of 4 to 4.5. Patient is not in acute distress. Denies any headache, dizziness. Denies any chest pain, palpitation. Denies any fever, cough. No abdominal pain. No nausea, vomiting, diarrhea. Urine is cloudy. PHYSICAL EXAMINATION: GENERAL: Mr. Palmer is a 77-year-old elderly male, very cachectic, not in distress. VITAL SIGNS: As follows: Blood pressure this morning 108/68, pulse 108, respirations 18, temperature 99.4, and saturation 97%. Height 5 feet 5 inches and weight is 100 pounds. HEENT: Pupils are normal and reactive to light and accommodation. Conjunctivae pink. Sclerae anicteric. Tongue is moist. Trachea is midline. LUNGS: Symmetric on both sides. Clear on auscultation on the right side and basal crackles present on the left side. CARDIOVASCULAR SYSTEM: [place] at the sixth intercostal space, midclavicular line. S1 and S2 audible. No murmur, no gallop. ABDOMEN: Normal in appearance. Soft, tympanic. No guarding. No hepatosplenomegaly. CENTRAL NERVOUS SYSTEM: The patient is alert, awake, oriented x3. Nonfocal neuro examination. Patient is out of bed to chair. EXTREMITIES: No cyanosis, no clubbing, no edema. The patient has chronic skin changes in both lower extremities secondary to previous edema. MEDICATIONS: Include as follows: Diflucan 100 mg p.o. daily, Flomax 0.4 mg daily, meropenem 500 mg IV piggyback q. 12 hours, Nephro-Aleksandra 1 tablet p.o. daily, Pepcid 20 mg p.o. daily, PhosLo 600 mg p.o. t.i.d., Procrit 85854 units subcutaneous two times a week Sunday and , Protonix 20 mg p.o. daily, Rocaltrol 0.25 mcg p.o. daily, sodium bicarbonate 650 mg p.o. q. 8 hours, and IV fluids half-normal saline at 60 mL/hour. CURRENT LABORATORY DATA: Include as follows as of 06/26/2017, sodium 133, potassium 5.1, chloride 102, CO2 16, BUN 93, creatinine 4.8, glucose is 174, calcium is 7.1. Urine culture report as of 06/24/2017, gram negative rods, more than 100,000 colony forming units per mL. ASSESSMENT: In summary, Mr. Palmer is a 77-year-old elderly, very cachectic male with anemia, secondary hyperparathyroidism, renal failure, bilateral hydroureteronephrosis, bladder mass, cardiomyopathy, anemia. 1. Renal failure, acute on chronic kidney disease, this might be his baseline between 4 to 4.5. 2. Urinary tract infection secondary to gram negative rods. 3. Anemia, rule out multiple myeloma versus secondary to chronic kidney disease. 4. Cardiomyopathy. 5. Secondary hyperparathyroidism. 6. Bilateral hydroureteronephrosis PLAN: Continue IV antibiotics as per ID recommendation meropenem 500 q. 12 and continue Diflucan for one more day and then discontinue and continue Epogen as for concrete rubber, continue Nephro caps, continue sodium bicarbonate for severe metabolic acidosis. Followup with urology for possible cystoscopy and also possible stent placement. Overall, prognosis is very poor. Ruthann Duarte MD
[2017-06-27] MEDS: Multivitamin Vitamin B Complex (Nephro-Vite) Tab PO SCH (09:00)
[2017-06-27] MEDS: Meropenem 500 MG in Sodium Chloride 0.9% 100 ML IVPB SCH (09:25)
--- NOTE | 2017-06-27 10:54 | CP.PCM.PN ---
Subjective - Date & Time of Evaluation Date of Evaluation: 06/27/17 Time of Evaluation: 10:54 - Subjective Subjective: pt is seen and examined, follow up consult is dictated #[id number] Objective - Vital Signs/Intake and Output Vital Signs (last 24 hours): Temp Pulse Resp BP Pulse Ox 97.8 F 99 H 20 103/63 98 06/27/17 07:00 06/27/17 07:00 06/27/17 07:00 06/27/17 07:00 06/27/17 07:00 Intake and Output: 06/27/17 06/27/17 06:59 18:59 Intake Total 980 Output Total 1700 Balance -720 - Medications Medications: Current Medications Calcitriol (Rocaltrol) 0.25 mcg PO DAILY [facility] Last Admin: 06/27/17 09:25 Dose: 0.25 mcg Calcium Acetate (Phoslo) 667 mg PO TID [facility] Last Admin: 06/27/17 09:25 Dose: 667 mg Epoetin Pepe (Procrit) 10,000 unit SC TUTH [facility] Last Admin: 06/26/17 11:27 Dose: Not Given Sodium Chloride (Sodium Chloride 0.45%) 1,000 mls @ 60 mls/hr IV .[id number] [facility] Last Admin: 06/26/17 22:28 Dose: 60 mls/hr Meropenem 500 mg/ Sodium (Chloride) 100 mls @ 100 mls/hr IVPB Q12 [facility] Last Admin: 06/27/17 09:25 Dose: 100 mls/hr Pantoprazole Sodium (Protonix Ec Tab) 20 mg PO DAILY [facility] Last Admin: 06/26/17 10:34 Dose: 20 mg Sodium Bicarbonate (Sodium Bicarbonate Tab) 650 mg PO Q8 [facility] Last Admin: 06/27/17 06:09 Dose: 650 mg Tamsulosin HCl (Flomax) 0.4 mg PO DAILY [facility] Last Admin: 06/27/17 09:25 Dose: 0.4 mg Vitamin B Complex/Vit C/Folic Acid (Nephro-Aleksandra) 1 tab PO 0800 [facility] Last Admin: 06/27/17 09:00 Dose: 1 tab - Labs Labs: 06/23/17 07:17 06/26/17 11:19 PT 14.4 SECONDS (9.7-12.2) H 06/15/17 06:08 INR 1.3 08/25/17 06:08 APTT 39 SECONDS (21-34) H 06/15/17 06:08
[2017-06-27] MEDS: Pantoprazole 20 mg EC Tab PO SCH ×2 (11:44→14:26)
[2017-06-27] MEDS: Sodium Chloride 0.45% 1,000 ML IV SCH (11:45)
[2017-06-27 14:03] LABS: HEMATOCRIT 26.9 % (35.0-51.0); MEAN CORPUSCULAR HEMOGLOBIN 31.9 pg (27.0-31.0); MEAN CORPUSCULAR HGB CONC 33.2 g/dL (33.0-37.0); MEAN PLATELET VOLUME 8.1 fL (7.2-11.7); RED CELL DISTRIBUTION WIDTH 18.7 % (11.5-14.5); WHITE BLOOD COUNT 7.5 K/uL (4.8-10.8)
[2017-06-27 14:17] LABS: CALCIUM 7.6 mg/dl (8.6-10.4); POTASSIUM 5.4 mmol/L (3.6-5.2)
[2017-06-27 16:00] VITALS: BP 112/68; PULSE 101; TEMP 98.4
[2017-06-27] MEDS ORDERED: Cefepime IV 1 gm in Dextrose 1 GM/50 ML BAG IVPB SCH (18:00)
--- NOTE | 2017-06-27 18:34 | CP.PCM.PN ---
Subjective - Date & Time of Evaluation Date of Evaluation: 06/27/17 Time of Evaluation: 18:31 - Subjective Subjective: Patient is much better, appetite improved, still remains weak, mostly in bed. Denies bone pain, N,V,C,D. Discussed with patient the results of his lab and urine tests Objective - Vital Signs/Intake and Output Vital Signs (last 24 hours): Temp Pulse Resp BP Pulse Ox 98.4 F 101 H 20 112/68 98 06/27/17 15:59 06/27/17 15:59 06/27/17 15:59 06/27/17 15:59 06/27/17 15:59 Intake and Output: 06/27/17 06/27/17 06:59 18:59 Intake Total 980 520 Output Total 1700 1000 Balance -720 -480 - Medications Medications: Current Medications Calcitriol (Rocaltrol) 0.25 mcg PO DAILY [facility] Last Admin: 06/27/17 09:25 Dose: 0.25 mcg Calcium Acetate (Phoslo) 667 mg PO TID [facility] Last Admin: 06/27/17 17:20 Dose: 667 mg Epoetin Pepe (Procrit) 10,000 unit SC TUTH [facility] Last Admin: 06/26/17 11:27 Dose: Not Given Cefepime HCl (Maxipime Iv 1 Gm Premix) 1 gm in 50 mls @ 100 mls/hr IVPB Q24H [facility] Last Admin: 06/27/17 18:11 Dose: 100 mls/hr Pantoprazole Sodium (Protonix Ec Tab) 20 mg PO DAILY [facility] Last Admin: 06/27/17 14:26 Dose: 20 mg Sodium Bicarbonate (Sodium Bicarbonate Tab) 650 mg PO Q8 [facility] Last Admin: 06/27/17 14:25 Dose: 650 mg Tamsulosin HCl (Flomax) 0.4 mg PO DAILY [facility] Last Admin: 06/27/17 09:25 Dose: 0.4 mg Vitamin B Complex/Vit C/Folic Acid (Nephro-Aleksandra) 1 tab PO 0800 [facility] Last Admin: 06/27/17 09:00 Dose: 1 tab - Labs Labs: 06/27/17 13:55 06/27/17 13:55 PT 14.4 SECONDS (9.7-12.2) H 06/15/17 06:08 INR 1.3 06/15/17 06:08 APTT 39 SECONDS (21-34) H 06/15/17 06:08 Assessment and Plan (1) IgG gammopathy Assessment & Plan: 77 yo man with a small monoclonal spike in blood, lab tests and urine tests not consistent with multiple myeloma, only a monoclonal gammopathy that will need to be followed every 6 months or so. Patient to be transferred to rehab facility today Status: Acute
--- NOTE | 2017-06-29 08:41 | DS ---
DICTATED FOR: Akhil Wang MD LOCATION: The patient is located in room 658, bed B. 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, presented to the emergency room initially with severe generalized weakness; unable to pull his pants and even unable to hold anything; difficult to ambulate and very cachectic; severe anemia with hemoglobin of about 5.2, requiring multiple transfusions, about 4 units, and found to have an increased BUN and creatinine; metabolic acidosis; hyperkalemia; obstructive uropathy, status post Beck catheter replacement since admission and also found to have a severe cardiomyopathy with LV function 10% to 15% and also CHF; pleural effusion, status post right thoracentesis, drained about 1200 mL fluid, and anemia; secondary hyperparathyroidism; bilateral hydroureteronephrosis and bladder mass; being treated for UTI. The patient is feeling better, not in distress. No complaints, no chest pain or palpitation, no fever and no cough, no abdominal pain, no nausea, vomiting or diarrhea. PHYSICAL EXAMINATION: VITAL SIGNS: As follows: Blood pressure 112/68, pulse 101, respirations 20, temperature 98.4, saturations 98%. Height 5 feet 5 inches and weight is 99 pounds. GENERAL: The patient is a 77-year-old elderly cachectic male, not in distress. HEENT: Pupils normal, reactive to light and accommodation. Conjunctivae pink. Sclerae anicteric. Tongue is moist. Trachea is midline. LUNGS: Symmetric on both sides. Bilateral breath sounds present. Occasional left basal crackles present. CARDIOVASCULAR: [place] at the sixth intercostal space, midclavicular line. S1 and S2 audible. No murmur, no gallop. ABDOMEN: Normal in appearance, soft, nontender. No guarding. No rigidity. No hepatosplenomegaly. CENTRAL NERVOUS SYSTEM: The patient is alert, awake and oriented x3. Nonfocal neuro examination. Cranial nerves II through XII grossly intact. Sensory and motor system is within normal limits. EXTREMITIES: No cyanosis, no clubbing, no edema. CURRENT MEDICATIONS: Include Protonix, Nephro-Aleksandra, Epogen 10,000 units Sunday and , sodium bicarb, calcitriol. LABORATORY DATA: Include as follows; as of 06/27/2017, WBC is 7.4, hemoglobin 8.9, hematocrit is 26.9, and platelets 212. Sodium 133, potassium 5.4, chloride 102, CO2 of 17, BUN 96, creatinine 4.8, glucose 108, calcium 7.6. Urine culture positive for E. coli, sensitive to Zosyn, sensitive to aztreonam and also ceftriaxone and ertapenem, cefazolin, ciprofloxacin, cefepime, nitrofurantoin, gentamicin, imipenem and meropenem. ASSESSMENT: In summary, the patient is a 77-year-old elderly male, very cachectic with anemia, bilateral hydroureteronephrosis and bladder mass with Beck catheter. 1. Renal failure, [id number] kidney disease, maybe he is in a baseline between 4 to 4.8. 2. Anemia, rule out multiple myeloma. He cannot rule out secondary to chronic kidney disease. 3. Cardiomyopathy. 4. Urinary tract infection. 5. Secondary hyperparathyroidism. 6. Metabolic acidosis. 7. Hyperkalemia secondary to hydronephrosis and metabolic acidosis. PLAN: Continue Kayexalate p.r.n. and continue sodium bicarb. Continue IV antibiotics as per ID recommendation. The patient was [facility]. The patient was cleared by Urology to be discharged to subacute rehab. The patient will be followed with Urology in 2 weeks and also continue antibiotics for another 4 to 5 days as per ID recommendation of Anthony. We will advise the patient to follow as an outpatient with Renal. Ruthann Duarte MD
== END 2017-06-27 19:30 | DRG 814 ==
LOC: C.ER 16:43 → C.9E 18:34 → C.9I 22:41 → C.5T 06-18 08:14 → C.6T 06-21 14:28
PROVIDERS: ADMIT Internal Medicine Cardiovascular Disease; ATTEND Internal Medicine Cardiovascular Disease
PROC: 30233N1 Transfusion of Nonautologous Red Blood Cells into Peripheral Vein, Percutaneous Approach (ICD-10-PCS; 2017-06-09)
PROC: 0W993ZZ Drainage of Right Pleural Cavity, Percutaneous Approach (ICD-10-PCS; principal; 2017-06-20)
DX: D47.2 Monoclonal gammopathy (principal); I50.21 Acute systolic (congestive) heart failure; N17.9 Acute kidney failure, unspecified; R64 Cachexia; J90 Pleural effusion, not elsewhere classified; N18.6 End stage renal disease; R18.8 Other ascites; I42.0 Dilated cardiomyopathy; E87.2 Acidosis; N13.8 Other obstructive and reflux uropathy; B37.49 Other urogenital candidiasis; J98.11 Atelectasis; N13.2 Hydronephrosis with renal and ureteral calculous obstruction; N25.81 Secondary hyperparathyroidism of renal origin; D49.4 Neoplasm of unspecified behavior of bladder; E87.8 Other disorders of electrolyte and fluid balance, not elsewhere classified; D69.6 Thrombocytopenia, unspecified; E87.5 Hyperkalemia; N32.0 Bladder-neck obstruction; D50.9 Iron deficiency anemia, unspecified; N40.1 Benign prostatic hyperplasia with lower urinary tract symptoms; B18.2 Chronic viral hepatitis C; K59.00 Constipation, unspecified; E83.39 Other disorders of phosphorus metabolism; E83.42 Hypomagnesemia; Z87.442 Personal history of urinary calculi

== ENCOUNTER 2017-06-30 20:33 | Emergency (ER) | payer MEDICARE ==
[2017-06-30 20:33] VITALS: BMI 16.6
--- NOTE | 2017-06-30 21:17 | C.PDOC ---
History Of Present Illness 77 year old male with a Hx of CKD and anemia who was sent to the ER by [facility] for abnormal lab results. Patient was found to have a potassium of 5; he was given kayexalate in [place], had an episode of diarrhea, and was found to have his potassium increased to 6 on repeat labs. pt then sent to er for eval. In the ER patient is stating "I feel fine", denies any complaints. Time Seen by Provider: 06/30/17 20:41 Chief Complaint (Nursing): Medical Clearance History Per: Patient History/Exam Limitations: no limitations Onset/Duration Of Symptoms: Hrs Current Symptoms Are (Timing): Still Present Recent travel outside of the [place]: No Past Medical History Reviewed: Historical Data, Nursing Documentation, Vital Signs Vital Signs: Last Vital Signs Temp 98 F 06/30/17 23:39 Pulse 111 H 06/30/17 23:39 Resp 20 06/30/17 23:39 BP 103/55 L 06/30/17 23:39 Pulse Ox 100 06/30/17 23:39 - Medical History PMH: Anemia Surgical History: No Surg Hx - [facility] Procedures DRAINAGE OF RIGHT PLEURAL CAVITY, PERCUTANEOUS APPROACH (06/09/17) Family History: States: Unknown Family Hx - Social History Hx Alcohol Use: No Hx Substance Use: No - Immunization History Hx Tetanus Toxoid Vaccination: No Hx Influenza Vaccination: No Hx Pneumococcal Vaccination: No Review Of Systems Constitutional: Negative for: Fever, Chills Cardiovascular: Negative for: Chest Pain, Palpitations Respiratory: Negative for: Shortness of Breath Gastrointestinal: Positive for: Diarrhea. Negative for: Nausea, Vomiting, Abdominal Pain Genitourinary: Negative for: Dysuria, Hematuria Neurological: Negative for: Weakness, Numbness Physical Exam - Physical Exam Appears: Non-toxic, No Acute Distress Skin: Normal Color, Warm, Dry Head: Atraumatic, Normacephalic Oral Mucosa: Moist Neck: Normal, Supple Chest: Symmetrical, No Tenderness Cardiovascular: Rhythm Regular, No Murmur Respiratory: Normal Breath Sounds, No Rales, No Rhonchi, No Wheezing Gastrointestinal/Abdominal: Soft, No Tenderness Neurological/Psych: Oriented x3, Normal Speech, Normal Cognition ED Course And Treatment - Laboratory Results Result Diagrams: 06/30/17 21:22 06/30/17 21:22 O2 Sat by Pulse Oximetry: 98 (Room air) Pulse Ox Interpretation: Normal Medical Decision Making Medical Decision Making: r/o hyperkalemia. 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 states bun/cr at baseline. known uti on antibiotics at in. advises to dose kayexalate and d/c back to in. pt also refusing admission, requesting to be d/c back to in Disposition - Disposition Referrals: Cecile Duarte MD [Staff Provider] - Ruthann Duarte MD [Staff Provider] - Disposition: HOME/ ROUTINE Disposition Time: 22:28 Condition: STABLE Additional Instructions: please follow up with your doctor. return to er with worsening symptoms or concenrs. Instructions: Chronic Kidney Disease (ED), Hyperkalemia (ED) Forms: [employer] [facility] ([place] Islander) - Clinical Impression Clinical Impression: Hyperkalemia, Renal insufficiency - Scribe Statement The provider has reviewed the documentation as recorded by the Scribe Fabio Arreola All medical record entries made by the Scribe were at my direction and personally dictated by me. I have reviewed the chart and agree that the record accurately reflects my personal performance of the history, physical exam, medical decision making, and the department course for this patient. I have also personally directed, reviewed, and agree with the discharge instructions and disposition.
[2017-06-30 21:29] LABS: BASO # 0.1 K/uL (0.0-0.2); BASO % 0.9 % (0.0-2.0); EOS # 0.1 K/uL (0.0-0.7); EOS % 2.1 % (0.0-4.0); HEMATOCRIT 28.6 % (35.0-51.0); LYMPH # 1.5 K/uL (1.0-4.3); LYMPH % 20.9 % (20.0-40.0); MEAN CELL VOLUME 96.9 fL (80.0-94.0); MEAN CORPUSCULAR HGB CONC 33.1 g/dL (33.0-37.0); MEAN PLATELET VOLUME 7.4 fL (7.2-11.7); MONO # 0.5 K/uL (0.0-0.8); MONO % 7.3 % (0.0-10.0); NRBC % 0.1 % (0.0-2.0); RED CELL DISTRIBUTION WIDTH 18.9 % (11.5-14.5); WHITE BLOOD COUNT 7.1 K/uL (4.8-10.8)
[2017-06-30 21:36] LABS: RBC URINE 36 /hpf (0-3); URINE BACTERIA FEW (<OCC); URINE BILIRUBIN NEGATIVE (NEGATIVE); URINE BLOOD 1+ (NEGATIVE); URINE COLOR Yellow (YELLOW); URINE GLUCOSE (UA) NORMAL (Normal); URINE KETONE NEGATIVE (NEGATIVE); URINE LEUKOCYTE ESTERASE 3+ Leu/uL (Negative); URINE PROTEIN 1+ mg/dL (NEGATIVE); URINE UROBILINOGEN NORMAL mg/dL (0.2-1.0); WBC URINE 407 /hpf (0-5)
[2017-06-30 21:37] LABS: INR 1.2
[2017-06-30 21:41] LABS: ALB/GLOB RATIO 0.6 (1.0-2.1); BILIRUBIN,TOTAL 0.3 mg/dL (0.2-1.3); CALCIUM 8.1 mg/dl (8.6-10.4); POTASSIUM 5.5 mmol/L (3.6-5.2)
[2017-06-30 21:52] LABS: TROPONIN I 0.016 ng/mL (0.00-0.120)
[2017-06-30 22:07] VITALS: RESP 20
[2017-06-30] MEDS ORDERED: Sod Polystyrene Sulf 15 gm/60 ml Oral Susp PO ONE (22:24)
[2017-06-30] MEDS ORDERED: Sod Polystyrene Sulf 15 gm/60 ml Oral Susp ONE (22:27)
[2017-06-30 23:40] VITALS: BP 103/55; PULSE 111; TEMP 98
[2017-07-01 00:19] VITALS: O2SAT 98
--- NOTE | 2017-07-03 17:18 | CARD ---
APPROVED REPORT EKG Measurement Heart [id number] MA [id number] <Conclusion> Sinus tachycardia Left ventricular hypertrophy with repolarization abnormality Abnormal ECG
== END 2017-06-30 23:58 | disposition home or self-care (01) ==
LOC: C.ER 20:33
DX: E87.5 Hyperkalemia (principal); N28.9 Disorder of kidney and ureter, unspecified

== ENCOUNTER 2017-07-08 20:17 | Inpatient (IN) | payer MEDICARE ==
[2017-07-08 20:18] VITALS: BMI 16.6
--- NOTE | 2017-07-08 21:07 | C.PDOC ---
History Of Present Illness 77 year old male who presents to the ER with a complaint of hematuria that began tonight. Patient reports having a previous episode of hematuria last night at approximately 22:00 that resolved this morning. Patient has a sanon catheter in place. Denies pain or other associated symptoms. Chief Complaint (Nursing): Male Genitourinary History Per: Patient History/Exam Limitations: no limitations Onset/Duration Of Symptoms: Hrs Current Symptoms Are (Timing): Still Present Severity: None Associated Symptoms: Urinary Symptoms (Hematuria). denies: Fever, Chills, Nausea, Vomiting, Diarrhea, Back Pain Alleviating Factors: None Recent travel outside of the [place]: No Past Medical History Reviewed: Historical Data, Nursing Documentation, Vital Signs Vital Signs: Last Vital Signs Temp 98 F 07/09/17 01:02 Pulse 87 07/09/17 01:02 Resp 16 07/09/17 01:02 BP 95/63 L 07/09/17 01:02 Pulse Ox 98 07/09/17 03:18 - Medical History PMH: Anemia Surgical History: No Surg Hx - [facility] Procedures DRAINAGE OF RIGHT PLEURAL CAVITY, PERCUTANEOUS APPROACH (06/09/17) TRANSFUSE NONAUT RED BLOOD CELLS IN PERIPH VEIN, PERC (06/09/17) Family History: States: Unknown Family Hx - Social History Hx Alcohol Use: No Hx Substance Use: No - Immunization History Hx Tetanus Toxoid Vaccination: No Hx Influenza Vaccination: No Hx Pneumococcal Vaccination: No Review Of Systems Constitutional: Negative for: Fever, Chills Gastrointestinal: Negative for: Nausea, Vomiting, Abdominal Pain, Diarrhea Genitourinary: Positive for: Hematuria. Negative for: Dysuria, Scrotal Pain, Penile Pain Physical Exam - Physical Exam Appears: Non-toxic, No Acute Distress Skin: Normal Color, Warm, Dry Head: Atraumatic, Normacephalic Oral Mucosa: Moist Chest: Symmetrical, No Tenderness Cardiovascular: No Rhythm Regular, No Murmur Respiratory: No Rales, No Rhonchi, No Wheezing, Other (Diminished breath sounds at the left lower base) Gastrointestinal/Abdominal: Soft, No Tenderness Male Genital: Other (Sanon catheter in place with gross hematuria collection in bag) ED Course And Treatment - Laboratory Results Result Diagrams: 07/08/17 21:18 07/08/17 21:18 O2 Sat by Pulse Oximetry: 98 (Room air) Pulse Ox Interpretation: Normal - CT Scan/US CT abd/pel Other Rad Studies (CT/US): Read By Radiologist, Radiology Report Reviewed CT/US Interpretation: FINDINGS: Lungs: Bilateral moderate pleural effusions with pulmonary edema and mild scattered subsegmental. atelectasis or scarring. Moderate bilateral centrilobular emphysematous changes are present. There. is pleural-parenchymal scarring noted in the lung apices. Pleural space: See above. Heart: There is coronary artery calcification. No significant pericardial effusion. Stomach and bowel: There is a prominent amount of retained gas and stool in the colon. No. obstruction. No mucosal thickening. Appendix: No findings to suggest acute appendicitis. PELVIS: Bladder: See above. Reproductive: The prostate gland is markedly enlarged, indenting the base of the bladder. ABDOMEN and PELVIS: Intraperitoneal space: Unremarkable. No free air. No significant fluid collection. Bones/joints: No acute fracture. No dislocation. Soft tissues: Unremarkable. Vasculature: Unremarkable. No abdominal aortic aneurysm. Lymph nodes: Unremarkable. No enlarged lymph nodes. IMPRESSION: Marked prostatic hypertrophy, indenting the base of the bladder. A bladder or prostate mass cannot. be excluded. Bilateral moderate hydronephrosis and bilateral moderate renal atrophy. CT Chest Other Rad Studies (CT/US): Read By Radiologist, Radiology Report Reviewed CT/US Interpretation: FINDINGS: Lungs: Bilateral moderate pleural effusions with pulmonary edema and mild scattered subsegmental. atelectasis or scarring. Moderate bilateral centrilobular emphysematous changes are present. There. is pleural-parenchymal scarring noted in the lung apices. Pleural space: See above. Heart: There is coronary artery calcification. No significant pericardial effusion. Bones/joints: Unremarkable. No acute fracture. No dislocation. Soft tissues: Unremarkable. Vasculature: No evidence of aortic aneurysm. Lymph nodes: Unremarkable. No enlarged lymph nodes. IMPRESSION: Bilateral moderate pleural effusions with pulmonary edema and mild scattered subsegmental atelectasis or scarring. Bladder US Other Rad Studies (CT/US): Read By Radiologist, Radiology Report Reviewed CT/US Interpretation: FINDINGS: Marked prostatic hypertrophy, protruding into the bladder. No other mass seen. The prostate volume. is 49 cc. There is a Sanon catheter present. Bladder wall thickening measures up to 11 mm. Prevoid bladder volume is 160 CC. IMPRESSION: Marked prostatic hypertrophy, with prostate protruding into the bladder base. No primary bladder. mass is seen. There is diffuse bladder wall thickening likely secondary to chronic bladder outlet obstruction. Progress Note: Blood work, CT abd/pel/chest, urine culture, and urinalysis ordered. Disposition Discussed With : Akhil Wang Doctor Will See Patient In The: Hospital Counseled Patient/Family Regarding: Diagnosis - Disposition Disposition: HOSPITALIZED Disposition Time: 03:03 Condition: STABLE Forms: [facility] (Moroccan) - POA Present On Arrival: None - Clinical Impression Clinical Impression: Renal failure, Hematuria - Scribe Statement The provider has reviewed the documentation as recorded by the Scribe Fabio Arreola All medical record entries made by the Scribe were at my direction and personally dictated by me. I have reviewed the chart and agree that the record accurately reflects my personal performance of the history, physical exam, medical decision making, and the department course for this patient. I have also personally directed, reviewed, and agree with the discharge instructions and disposition.
[2017-07-08 21:23] LABS: BASO # 0.1 K/uL (0.0-0.2); BASO % 0.7 % (0.0-2.0); EOS # 0.2 K/uL (0.0-0.7); EOS % 1.8 % (0.0-4.0); HEMATOCRIT 26.8 % (35.0-51.0); LYMPH # 1.8 K/uL (1.0-4.3); LYMPH % 21.4 % (20.0-40.0); MEAN CELL VOLUME 98.9 fL (80.0-94.0); MEAN CORPUSCULAR HEMOGLOBIN 32.5 pg (27.0-31.0); MEAN CORPUSCULAR HGB CONC 32.8 g/dL (33.0-37.0); MEAN PLATELET VOLUME 7.5 fL (7.2-11.7); MONO # 0.6 K/uL (0.0-0.8); MONO % 7.3 % (0.0-10.0); RED CELL DISTRIBUTION WIDTH 19.2 % (11.5-14.5); WHITE BLOOD COUNT 8.3 K/uL (4.8-10.8)
[2017-07-08 21:33] LABS: ALB/GLOB RATIO 0.6 (1.0-2.1); BILIRUBIN,TOTAL 0.3 mg/dL (0.2-1.3); CALCIUM 8.3 mg/dl (8.6-10.4); POTASSIUM 5.7 mmol/L (3.6-5.2); TOTAL PROTEIN 6.9 g/dL (6.3-8.3)
[2017-07-08 22:31] LABS: RBC URINE 3075 /hpf (0-3); URINE BACTERIA OCC (<OCC); URINE BILIRUBIN NEGATIVE (NEGATIVE); URINE BLOOD 3+ (NEGATIVE); URINE COLOR Red (YELLOW); URINE GLUCOSE (UA) NORMAL (Normal); URINE KETONE NEGATIVE (NEGATIVE); URINE LEUKOCYTE ESTERASE 3+ Leu/uL (Negative); URINE PROTEIN 2+ mg/dL (NEGATIVE); URINE UROBILINOGEN NORMAL mg/dL (0.2-1.0); WBC URINE 775 /hpf (0-5)
[2017-07-09] MEDS ORDERED: Sodium Chloride 0.9% 1,000 ML IV ONE (02:53)
--- NOTE | 2017-07-09 08:27 | CT ---
PROCEDURE: CT Chest, Abdomen and Pelvis without intravenous contrast HISTORY: hematuria COMPARISON: Chest, abdomen and pelvis CT without contrast 06/14/2017. TECHNIQUE: Radiation dose: Total exam DLP = 380 mGy-cm. This CT exam was performed using one or more of the following dose reduction techniques: Automated exposure control, adjustment of the mA and/or kV according to patient size, and/or use of iterative reconstruction technique. FINDINGS: CT CHEST WITHOUT CONTRAST: LUNGS: Improved aeration is appreciate the right greater than left lungs relative to diminishing bilateral pleural effusions. Compressive atelectasis identified at the left greater than right lower lobes with biapical fibrotic changes again appreciated, partially calcified. Occasional trace ground-glass opacity scattered at the bilateral upper lobes as well. The central airways remain clear. MEDIASTINUM: Cardiomegaly is again identified with extensive coronary artery calcifications. A mild pericardial effusion is again evident, unchanged. LYMPH NODES: No prominent lymphadenopathy. Lack images contrast limits evaluation the mediastinum nevertheless. PLEURA: Diminishing bilateral pleural effusions now appear mild at the right and moderate at the left. A mild pericardial effusion is stable as discussed above. BONES: No interval suspicious lytic or blastic change. OTHER FINDINGS: None. CT ABDOMEN AND PELVIS: LIVER: A 1.5 cm cyst is seen in the right lobe of the liver at the dome with an additional cystic lucency identified at the inferior margins of the right lobe measuring 7 mm greatest dimension, with both foci unchanged in appearance in the interval but limited evaluation to lack of IV contrast material. Remainder of the liver appears unremarkable. . GALLBLADDER AND BILE DUCTS: Surgically absent versus complete contraction. PANCREAS: Unremarkable. No gross lesion or ductal dilatation. SPLEEN: Unremarkable. ADRENALS: Unremarkable. No mass. KIDNEYS AND URETERS: Bilateral hydronephrosis persists but appears significantly reduced, particularly at the right side with [id number] bilateral hydronephrosis identified. Mild bilateral renal atrophy is again appreciated. VASCULATURE: Unremarkable. No aortic aneurysm. BOWEL: Moderate rectal fecal impaction is appreciated. There is no bowel obstruction appreciated throughout. A moderate amount of retained fecal material scattered throughout the colon with the stomach mildly distended with retained food and gas. APPENDIX: Unable to identify the appendix. Fluid-filled small bowel loops obscure the right lower quadrant. Clinically correlate here. If pathology is suspected here then follow-up contrast-enhanced abdomen and pelvis CT is advised there is no contraindication. PERITONEUM: Unremarkable. No free fluid. No free air. Diminished anasarca appearance. LYMPH NODES: Unremarkable. No enlarged lymph nodes. BLADDER: Urinary bladder is decompressed by Beck catheter with the base again noted to be lifted by a enlarged prostate gland. REPRODUCTIVE: Enlarged prostate gland. BONES: No acute fracture. OTHER FINDINGS: None. IMPRESSION: 1. Diminishing bilateral pleural effusions now appearing [id number] the right and moderate the left with a mild pericardial effusion stable. Compressive atelectasis at the bilateral lower lobes is diminished. 2. Biapical pulmonary fibrosis is again evident with infrequent scattered limited ground-glass opacity the bulbar upper lobes indicates Ronald at the superior segments bilateral lower lobes without prominent alveolitis is appreciated. 3. Cardiomegaly. 4. Diminishing bilateral hydronephrosis now appearing [id number] in severity. Etiology remains unclear with the urinary bladder not decompressed by Beck catheter. 5. Moderate rectal fecal impaction. 6. Diminished anasarca appearance.
--- NOTE | 2017-07-09 08:57 | US ---
Urinary bladder ultrasound History: Hematuria. Possible bladder mass. Comparison: None available. Technique: Real-time sonography was performed through the urinary bladder. Findings: Marked prostatic hypertrophy protruding into the urinary bladder. This measures up to 4.7 x 4.3 x 5.3 centimeters. This may be better evaluated with cystoscopy to exclude underlying bladder mass. Prostate volume measures up to 49 cc. Beck catheter present in the urinary bladder. Urinary bladder wall thickening measuring up to 11 millimeters. Pre void bladder volume is 160 cc. Patient has a Beck catheter. Bilateral ureteral jets were not well visualized. No gross bladder calculi visualized. Impression: Marked prostatic hypertrophy with prostate protruding into the urinary bladder base. This measures up to 4.7 x 4.3 x 5.3 centimeters. This may be better evaluated with cystoscopy to exclude possible underlying bladder mass. Diffuse urinary bladder wall thickening likely secondary to chronic bladder outlet obstruction. These findings were preliminarily reported at 2:11 a.m. on 07/09/[address] Martha Foster from [facility].
--- NOTE | 2017-07-09 11:32 | CP.PCM.CON ---
Past Patient History - Past Medical History & Family History Past Medical History?: No - Past Social History Smoking Status: Never Smoked - RENAL Hx Renal Failure: Yes (acute) Other/Comment: admitted on 06-27 - for acute renal failure - ENDOCRINE/METABOLIC Hx Endocrine Disorders: No - HEMATOLOGICAL/ONCOLOGICAL Hx Anemia: Yes - INTEGUMENTARY Hx Dermatological Problems: No - MUSCULOSKELETAL/RHEUMATOLOGICAL Hx Falls: Yes - GASTROINTESTINAL Hx Gastroesophageal Reflux: Yes Other/Comment:  - GENITOURINARY/GYNECOLOGICAL Hx Prostate Problems: Yes Hx Urinary Tract Infection: Yes Other/Comment: hx utis-pt has indwelling sanon from skilled nursing - PSYCHIATRIC Hx Substance Use: No - SURGICAL HISTORY Hx Surgeries: No - ANESTHESIA Hx Anesthesia: No Hx Anesthesia Reactions: No Hx Malignant Hyperthermia: No Meds Allergies/Adverse Reactions: Allergies Allergy/AdvReac Type Severity Reaction Status Date / Time seasonal allergies Allergy Mild Uncoded 07/08/17 20:37 - Medications Medications: Current Medications Acetaminophen (Tylenol 325mg Tab) 325 mg PO Q6 PRN PRN Reason: Pain, moderate (4-7) Calcium Acetate (Phoslo) 667 mg PO TID TANI Last Admin: 07/09/17 10:08 Dose: 667 mg Sodium Chloride (Sodium Chloride 0.9%) 1,000 mls @ 100 mls/hr IV .Q10H ONE Stop: 07/09/17 12:52 Last Admin: 07/09/17 05:00 Dose: 100 mls/hr Results - Vital Signs Recent Vital Signs: Last Vital Signs Temp 97.4 F L 07/09/17 10:36 Pulse 72 07/09/17 10:36 Resp 20 07/09/17 10:36 BP 116/59 L 07/09/17 10:36 Pulse Ox 99 07/09/17 10:36 - Labs Result Diagrams: 07/08/17 21:18 07/08/17 21:18 Assessment & Plan - Assessment and Plan (Free Text) Assessment: IMP: HEMATURIA AZOTEMIA WEIGHT LOSS RETENTION 'hYDRONEPHROSIS FULL NOTE T/F THANK YOU ys - Date & Time Date: 07/09/17 Time: 11:15
--- NOTE | 2017-07-09 13:47 | CP.PCM.HP ---
History of Present Illness - History of Present Illness History of Present Illness: COMPREHENSIVE HISTORY & PHYSICAL EXAM HPI ADMITTED FROM REHAB FOR HEMATURIA PT WAS ADMITTED IN 1 MONTH AGO IN ACUTE RENAL FAILURE . CR 10, AND HYDRONEPHROSIS WITH POSSIBLE BLADDER TUMOR . PT IMPROVED ON IV FLUIDS AND CR. HAS REMAINED 4.5 , BUN, 100 PT HAS REFUSED DIALYSIS PT ALSO HAS SEVERE CARDIOMYOPATHY EF 15% . COULD NOT DO ANY CARDIAC W/U , CATH, DUE TO HIGH CR PT FIRST TIME HAD HEMATURIS LAST NITE IN REHAB PT IS CACHETIC AND SIGNIFICANT MUSCLE LOSS HAD UTI WAS TREATED WITH IV AB NOW PT HAS MANY WBC IN URINE PAST HIST. PERSONAL HIST: Smoking. N Alcohol. N Allergy N Travel_- . FAMILY HIST : ROS : Constitutional: GEN WEAKNESS AND USES WALKER Eyes: Negative for redness, swelling, itching, discharge, vision changes, blurry vision, double vision, glaucoma, cataracts, Ears: Negative for hearing loss, ringing, , tinnitus, vertigo Nose: Negative for rhinorrhea, stuffiness, sniffing, itching, postnasal drip, discoloration, nasal congestion and epistaxis. Throat: Negative for throat clearing, sore throat, hoarseness, difficulty swallowing and difficulty speaking. Respiratory: Negative for cough, , sputum production, chest tightness, wheezing, pleuritic chest pain ,daytime somnolence, chronic cough, hemoptysis, snoring at night, Cardiovascular: Negative for chest pain, palpitations, orthopnea, PND, Edema of legs, leg cramps, angina, claudication, , irregular heartbeat, Neurology: Negative for irritability, muscle weakness, numbness and tingling, seizures, tremors, migraines, slurred speech, syncope, memory loss, mood changes , recurrent headaches Gastrointestinal: Negative for difficulty swallowing, diarrhea, constipation, black stools, rectal bleeding, nausea, flatulence, reflux, poor appetite, changes in bowel habits, abdominal pain Genitourinary: Negative for frequent urination, hematuria, discharge, incontinence, urinary retention, frequent UTI, Psychiatric: Negative for depression, anxiety/panic, suicidal tendencies, Musculoskeletal: Negative for swollen joints, back pain, , neck pain, morning stiffness of joints, . Skin: Negative for rash, ulcers, itching, dry skin and pigmented lesions. P/E: Constitutional: Appears stated age and in no apparent distress. Head: Normocephalic. Ears: External ear canals patent without inflammation. Tympanic membranes intact with normal light reflex and landmark. Eyes: Pupils are central, bilaterally equal, symmetrical and reacts to light with normal movements and no icterus or pallor. Nose: External nares are patent. Mucosa is pink Mouth-Throat: Good general appearance and condition. No post-pharyngeal/oropharyngeal erythema and tonsillar hypertrophy. Good dental hygiene. Neck-Lymphatic: Neck is supple with normal ROM, no thyromegaly, lymph nodes or masses. JVD is normal with no carotid bruit. Lungs: Clear to percussion and auscultation with bilateral normal air entry. Cardiovascular: S1 and S2 are normal with no murmurs, gallops and rub. GI Exam: No hepatomegaly. Abdomen is soft and non-tender. No Organomegaly , masses or hernias are evident and bowel sounds are normal and active. Neurology: Higher function and all cranial nerves intact, with no gross motor or sensory deficit. Superficial and deep reflexes are normal with downwards planters. No cerebellar deficit with normal gait. Musculoskeletal: No tender spots with normal curvature of the spine with no swelling or restricted ROM of the small and large joints. LOSS OF MUSCLE MASS Extremities: Homans sign absent. Intact pulses with no pitting edema, calf tenderness or skin color changes. Skin: No rash, eruptions or abnormal skin pigmentation LAB/RADIOLOGY: ASSESMENT : HEMATURIA , WITH H/O BLADDER MASS CH. RENAL FAILURE CARDIOMYOPATHY , EF 15 % PLAN: URO EVAL CPT Present on Admission - Present on Admission Any Indicators Present on Admission: No Past Patient History - Past Medical History & Family History Past Medical History?: No - Past Social History Smoking Status: Never Smoked - RENAL Hx Renal Failure: Yes (acute) Other/Comment: admitted on 06-27 - for acute renal failure - ENDOCRINE/METABOLIC Hx Endocrine Disorders: No - HEMATOLOGICAL/ONCOLOGICAL Hx Anemia: Yes - INTEGUMENTARY Hx Dermatological Problems: No - MUSCULOSKELETAL/RHEUMATOLOGICAL Hx Falls: Yes - GASTROINTESTINAL Hx Gastroesophageal Reflux: Yes Other/Comment:  - GENITOURINARY/GYNECOLOGICAL Hx Prostate Problems: Yes Hx Urinary Tract Infection: Yes Other/Comment: hx utis-pt has indwelling sanon from [facility] - PSYCHIATRIC Hx Substance Use: No - SURGICAL HISTORY Hx Surgeries: No - ANESTHESIA Hx Anesthesia: No Hx Anesthesia Reactions: No Hx Malignant Hyperthermia: No Meds Allergies/Adverse Reactions: Allergies Allergy/AdvReac Type Severity Reaction Status Date / Time seasonal allergies Allergy Mild Uncoded 07/08/17 20:37 Results - Vital Signs Recent Vital Signs: Last Vital Signs Temp 97.4 F L 07/09/17 10:36 Pulse 72 07/09/17 10:36 Resp 20 07/09/17 10:36 BP 116/59 L 07/09/17 10:36 Pulse Ox 99 07/09/17 10:36 - Labs Result Diagrams: 07/08/17 21:18 07/08/17 21:18
[2017-07-09 17:45] LABS: POTASSIUM 5.3 mmol/L (3.6-5.2)
--- NOTE | 2017-07-09 18:59 | CP.PCM.CON ---
History of Present Illness - History of Present Illness History of Present Illness: pt is seen and examined, full consult is dictated #[id number] Past Patient History - Past Medical History & Family History Past Medical History?: No - Past Social History Smoking Status: Never Smoked - RENAL Hx Renal Failure: Yes (acute) Other/Comment: admitted on 06-27 - for acute renal failure - ENDOCRINE/METABOLIC Hx Endocrine Disorders: No - HEMATOLOGICAL/ONCOLOGICAL Hx Anemia: Yes - INTEGUMENTARY Hx Dermatological Problems: No - MUSCULOSKELETAL/RHEUMATOLOGICAL Hx Falls: Yes - GASTROINTESTINAL Hx Gastroesophageal Reflux: Yes Other/Comment:  - GENITOURINARY/GYNECOLOGICAL Hx Prostate Problems: Yes Hx Urinary Tract Infection: Yes Other/Comment: hx utis-pt has indwelling sanon from [facility] - PSYCHIATRIC Hx Substance Use: No - SURGICAL HISTORY Hx Surgeries: No - ANESTHESIA Hx Anesthesia: No Hx Anesthesia Reactions: No Hx Malignant Hyperthermia: No Meds Allergies/Adverse Reactions: Allergies Allergy/AdvReac Type Severity Reaction Status Date / Time seasonal allergies Allergy Mild Uncoded 07/08/17 20:37 - Medications Medications: Current Medications Acetaminophen (Tylenol 325mg Tab) 325 mg PO Q6 PRN PRN Reason: Pain, moderate (4-7) Calcium Acetate (Phoslo) 667 mg PO TID [facility] Last Admin: 07/09/17 18:15 Dose: 667 mg Results - Vital Signs Recent Vital Signs: Last Vital Signs Temp 97.6 F 07/09/17 15:25 Pulse 82 07/09/17 15:25 Resp 20 07/09/17 15:25 BP 119/62 07/09/17 15:25 Pulse Ox 99 07/09/17 15:25 - Labs Result Diagrams: 07/08/17 21:18 07/09/17 17:29 Labs: Laboratory Results - last 24 hr 07/09/17 17:29 Sodium 137 Potassium 5.3 H Chloride 107 Carbon Dioxide 22 Anion Gap 14 BUN 91 H Creatinine 4.0 H Est GFR ( Amer) 18 Est GFR (Non-Af Amer) 15 Random Glucose 123 H Calcium 8.0 L
[2017-07-09] MEDS ORDERED: Alum-Mag Hydrox-Simethicone Susp (30 mL) PO PRN (19:50)
[2017-07-10 08:11] LABS: BASO # 0.1 K/uL (0.0-0.2); BASO % 0.9 % (0.0-2.0); EOS # 0.2 K/uL (0.0-0.7); EOS % 2.5 % (0.0-4.0); HEMATOCRIT 28.3 % (35.0-51.0); LYMPH # 1.7 K/uL (1.0-4.3); LYMPH % 21.7 % (20.0-40.0); MEAN CELL VOLUME 98.5 fL (80.0-94.0); MEAN CORPUSCULAR HEMOGLOBIN 32.3 pg (27.0-31.0); MEAN CORPUSCULAR HGB CONC 32.8 g/dL (33.0-37.0); MEAN PLATELET VOLUME 7.5 fL (7.2-11.7); MONO # 0.7 K/uL (0.0-0.8); MONO % 8.5 % (0.0-10.0); RED CELL DISTRIBUTION WIDTH 19.4 % (11.5-14.5); WHITE BLOOD COUNT 7.8 K/uL (4.8-10.8)
[2017-07-10 08:44] LABS: IRON 23 ug/dL (49-181)
[2017-07-10 08:48] LABS: ALB/GLOB RATIO 0.7 (1.0-2.1); BILIRUBIN,TOTAL 0.4 mg/dL (0.2-1.3); CALCIUM 8.1 mg/dl (8.6-10.4); TOTAL PROTEIN 7.1 g/dL (6.3-8.3)
--- NOTE | 2017-07-10 10:29 | PCM.URO ---
Urology Progress Note - General General: No Complaints, Tolerating Diet - Subjective Abdominal Pain: No Flank Pain: No Voiding Well: No Hematuria: No (urine is now yellow) Dsypnea: No Chest Pain: No Fever & Chills: No - Objective Lab Studies: Reviewed (creat=4.7 hct=28) Lab Results Last 24 Hours: Laboratory Results - last 24 hr 07/09/17 07/10/17 07/10/17 17:29 07:51 07:51 WBC 7.8 RBC 2.87 L Hgb 9.3 L Hct 28.3 L MCV 98.5 H MCH 32.3 H MCHC 32.8 L RDW 19.4 H Plt Count 364 MPV 7.5 Neut % (Auto) 66.4 Lymph % (Auto) 21.7 [place] % (Auto) 8.5 Eos % (Auto) 2.5 Baso % (Auto) 0.9 Neut # 5.2 Lymph # 1.7 [place]lette # 0.7 Eos # 0.2 Baso # 0.1 Sodium 137 Potassium 5.3 H Chloride 107 Carbon Dioxide 22 Anion Gap 14 BUN 91 H Creatinine 4.0 H Est GFR ( Amer) 18 Est GFR (Non-Af Amer) 15 Random Glucose 123 H Calcium 8.0 L Phosphorus Iron 23 L TIBC 215 L % Saturation 11 L Ferritin Total Bilirubin AST ALT Alkaline Phosphatase Total Protein Albumin Globulin Albumin/Globulin Ratio 07/10/17 07:51 WBC RBC Hgb Hct MCV MCH MCHC RDW Plt Count MPV Neut % (Auto) Lymph % (Auto) [place] % (Auto) Eos % (Auto) Baso % (Auto) Neut # Lymph # [place] # Eos # Baso # Sodium 137 Potassium 6.0 H Chloride 106 Carbon Dioxide 23 Anion Gap 15 BUN 95 H Creatinine 4.7 H Est GFR ( Amer) 15 Est GFR (Non-Af Amer) 12 Random Glucose 84 Calcium 8.1 L Phosphorus 4.0 Iron TIBC % Saturation Ferritin 213.0 Total Bilirubin 0.4 AST 29 ALT 35 Alkaline Phosphatase 114 Total Protein 7.1 Albumin 2.9 L Globulin 4.2 H Albumin/Globulin Ratio 0.7 L Intake & Output: Intake & Output 07/09/17 07/10/17 07/10/17 18:59 06:59 18:59 Intake Total 420 Output Total 575 550 Balance -575 -130 Intake: Oral 420 Output: Urine 575 550 Urethral (Sanon) 550 Other: Voiding Method Indwelling Catheter # Bowel Movements 1 Vital Signs: Vital Signs - 24 hr 07/09/17 07/09/17 07/09/17 10:36 14:40 15:25 Temperature 97.4 F L 97.3 F L 97.6 F Pulse Rate 72 74 82 Respiratory 20 20 20 Rate Blood Pressure 116/59 L 114/72 119/62 O2 Sat by Pulse 99 97 99 Oximetry 07/09/17 07/10/17 23:50 08:06 Temperature 97.9 F 97.8 F Pulse Rate 90 83 Respiratory 20 20 Rate Blood Pressure 117/68 113/66 O2 Sat by Pulse 98 97 Oximetry - Physical Exam Abdominal Exam: Soft, Non-Tender, Non-Distended Back: No CVA Tenderness Genitalia: Without Inflammation Urinary Catheter Draining Well: Yes Urine Color: Clear, Yellow - Plan Catheter Care: Yes Intake & Output: Yes Additional Information: imp: urinary retention. renal failure. P/Rec: sanon catheter. culture. psa. for cysto in am - Date & Time of Note Date: 07/10/17 Time: 10:29
[2017-07-10] MEDS: Magnesium Hydroxide Susp 30 ml UD PO SCH (10:38)
[2017-07-10] MEDS: Multivitamin Vitamin B Complex (Nephro-Vite) Tab PO SCH (10:38)
[2017-07-10] MEDS: EPOETIN ALFA 10,000 UNIT/ML ML SC SCH (10:39)
[2017-07-10] MEDS: Pantoprazole 20 mg EC Tab PO SCH (10:39)
--- NOTE | 2017-07-10 10:48 | CON ---
UROLOGY CONSULTATION DATE: 07/09/2017 REQUESTED BY: Akhil Wang MD REASON FOR CONSULTATION: Hematuria. HISTORY OF PRESENT ILLNESS: The patient is a 77-year-old male with hematuria. The patient is in otherwise fair health. The patient was transferred from his rehab center to the emergency room last night for hematuria. The patient has been in indwelling Beck catheter. Catheter was inserted last month for urinary retention. The patient was found to have renal failure and hydronephrosis associated with his urinary retention. The patient reports history of urolithiasis many years ago. He reports no history of urinary tract infection. The patient previously voided with fair urinary stream. He has nocturia. The patient reports fair appetite. He has had weight loss. The patient reports that he has not been ambulating of late. He has had generalized weakness. There is no flank pain. The patient reports occasional abdominal pain. The patient has normal bowel movements. There has been no recent fever or rigors. The patient is retired. The patient reports no recent chest pain. No blackouts, seizures or strokes. PHYSICAL EXAMINATION GENERAL: The patient is well-developed elderly male. The patient is awake and alert. ABDOMEN: Soft. Mildly distended. Nontender. No mass or organomegaly. BACK: No CVA tenderness. GENITALIA: Normal male. Beck catheter in place. There is mild hematuria via the Beck catheter. Genitalia without inflammation. RECTAL: Normal sphincter tone. Prostatic enlargement is noted. Prostate is approximately 40 g in size. Prostate is supple and smooth without fixation, induration or nodularity. LABORATORY DATA: Reviewed as well. IMPRESSION: This is a 77-year-old male with indwelling Beck catheter. Urinary retention. Azotemia. Anemia. Hydronephrosis. Renal failure. There has been improvement in his renal function. The etiology of the hematuria maybe due to neoplasia, urolithiasis, and/or infection. The etiology of urinary retention may be due to bladder outlet obstruction and/or detrusor muscle hypofunction. PLAN/RECOMMENDATIONS: Beck catheter indwelling. Urinalysis. Urine culture. Urine cytology. Cystoscopy to follow. Serum PSA. Further evaluation and therapy to follow. Possible cystogram and cystometrogram. Thank you for recommending the patient for urology consultation. Further care in therapy to follow according to the patient's clinical course as well as results of above. Britany Varela MD cc: MD Akhil Mai MD [facility] # [id number]
--- NOTE | 2017-07-10 11:24 | CON ---
DATE: 07/10/2017 LOCATION: The patient is located in room 659, bed B. REQUESTING PHYSICIAN: Akhil Wang MD REASON FOR CONSULTATION: Chronic kidney disease and UTI and cachexia. 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 Beck catheter was placed and drained initially about 2 liters and subsequently the patient was kept with Beck catheter and found to have severe poor LV function with LV function about 10-15% and also pleural effusion, status post right thoracentesis during his last admission, and his serum creatinine slowly improved to 4 to 4.5 and also UTI with brandy during his last admission and also the patient was found to have bladder mass, solid, and also the bilateral hydronephrosis with no improvement with Beck catheter placement. The patient was also found to have hyperkalemia on and off and the patient is being treated with Kayexalate. Now the patient was admitted from the halfway with a chief complaint of hematuria. The patient denies chest pain or palpitations. Denies any fever or cough. Denies any abdominal pain. The patient does complaints constipation and the patient claims his urine is clearing up from the blood from admission. PAST MEDICAL HISTORY: Significant for questionable nephrolithiasis and also cardiomyopathy and bilateral hydroureteronephrosis, bladder mass, and chronic kidney disease stage IV and severe anemia and secondary hyperparathyroidism. PAST SURGICAL HISTORY: Unknown, status post thoracentesis few weeks ago. ALLERGIES: SEASONAL ALLERGIES. NO KNOWN DRUG ALLERGIES. SOCIAL HISTORY: No smoking. No alcohol. No drugs. PERSONAL HISTORY: He is single. FAMILY HISTORY: Not significant. REVIEW OF SYSTEMS: Significant for gross hematuria and severe cachexia. All other review of systems are reviewed and are negative. 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 VITAL SIGNS: As follows: His blood pressure is 119/62, pulse 82, respirations 20, temperature 97.6, saturation 99%, height 5 feet 5 inches and weight is 95 pounds. HEENT: Pupils are normal and reactive to light and accommodation. Conjunctivae pink. Sclerae anicteric. Tongue is moist. NECK: Trachea is midline. LUNGS: Symmetric on both sides. Bilateral breath sounds present and clear on auscultation. CARDIOVASCULAR: Braggs at the sixth intercostal space, midclavicular line. S1 and S2 audible. No murmur. No gallop. ABDOMEN: Slightly protuberant, soft and tympanic. No guarding. No rigidity. No hepatosplenomegaly. CENTRAL NERVOUS SYSTEM: The patient is alert, awake, and oriented x2-3. Sensory and motor system is grossly within normal limits. EXTREMITIES: No cyanosis. No clubbing. No edema. Chronic skin changes present from the stasis. MEDICATIONS: Include as follows, Flomax 0.4 mg p.o. daily; Maalox 30 mL p.o. q.4 hours; magnesium hydroxide 30 mL p.o. daily; Nephro-Aleksandra one tablet daily; calcium acetate 667 mg p.o. t.i.d.; Epogen 10,000 units subcu weekly; Protonix 20 mg p.o. daily; Rocaltrol 0.25 mcg p.o. daily; sodium bicarbonate 650 mg p.o. q.8 hours; Tylenol 325 mg p.o. q. 6 hours. LABORATORY DATA: Include as follows: As of 07/08/2017, WBC 8.3, hemoglobin 8.8, hematocrit is 26.8, platelets 352. Sodium 135, potassium 5.7, chloride 102, CO2 of 22, BUN 100, creatinine 4.2, glucose 120, calcium 8.3. Total bili 0.3. AST 26, ALT 36, alkaline phosphatase 119, total protein 6.9, albumin is 2.7, and the lipase is 499. Urine is red, hazy, pH 7, specific gravity is 1.011, protein 2+, glucose normal, ketones negative, blood 3+ and leukocyte esterase 3+ and wbc 775 and rbc 3075, bacteria occasional. His repeat labs as of 07/09/2017: Sodium 137, potassium 5.3, chloride 107, CO2 of 22, BUN 91, creatinine is 4 and GFR is about is 15, glucose is 123, calcium is 8. Urine culture is pending. ADDENDUM: For the labs, ultrasound of urinary bladder, marked prostate hypertrophy protruding into the urinary bladder. This measures up to 4.7 x 4.3 x 5.3 cm. This may be better evaluated with cystoscopy to exclude underlying bladder mass. Prostate volume measures 249 mL and Beck catheter present in urinary bladder. Urinary bladder wall thickening measuring up to 11 mm. And the other report, CT of the abdomen, chest and pelvis as of 07/08/2017 with impression of diminishing bilateral pleural effusion, now appearing [id number] on the right and moderate on the left with mild pericardial effusion, stable. Compression atelectasis at the bilateral lower lobe is diminished. Apical pulmonary fibrosis again evident with infrequent scattered limited ground glass opacity of the upper lobes superior segments. Bilateral lower lobes without prominent alveolitis is appreciated. Cardiomegaly. Diminishing bilateral hydronephrosis now appearing [id number] in severity. Etiology remains unclear with the urinary bladder, not decompressed by Beck catheter, moderate. Rectal fecal impaction and diminished anasarca appearance. Follow up with urology for further management, may need a cystoscopy and biopsy of the prostate. 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 1. Renal failure with chronic kidney disease, stage IV to V. This is most likely baseline now. 2. Anemia secondary to renal failure. 3. Bilateral hydroureteronephrosis. 4. Bladder mass. 5. Hyperkalemia. 6. Urinary tract infection. PLAN: Check urine cultures and sensitivity and check PTH intact level. The patient will benefit from the renal replacement therapy. Follow up with Urology for possible cystoscopy and biopsy of the bladder mass and for possible need for the stent placement for persistent hydronephrosis, and repeat ultrasound of the kidneys for the evaluation of the hydronephrosis. We will follow with you. Thank you for allowing me to participate in your patient's care. Ruthann Duarte MD
--- NOTE | 2017-07-10 11:55 | CP.PCM.PN ---
Subjective - Date & Time of Evaluation Date of Evaluation: 07/10/17 Time of Evaluation: 11:54 - Subjective Subjective: pt is seen and examined, follow up consult is dictated #[id number] kayexalate 30 gm po x 1, ivf 1/2 ns at 60 ml/hr Objective - Vital Signs/Intake and Output Vital Signs (last 24 hours): Temp Pulse Resp BP Pulse Ox 97.8 F 83 20 113/66 97 07/10/17 08:06 07/10/17 08:06 07/10/17 08:06 07/10/17 08:06 07/10/17 08:06 Intake and Output: 07/10/17 07/10/17 06:59 18:59 Intake Total 420 Output Total 550 Balance -130 - Medications Medications: Current Medications Acetaminophen (Tylenol 325mg Tab) 325 mg PO Q6 PRN PRN Reason: Pain, moderate (4-7) Al Hydrox/Mg Hydrox/Simethicone (Maalox Plus 30 Ml) 30 ml PO Q4H PRN PRN Reason: Indigestion Calcitriol (Rocaltrol) 0.25 mcg PO DAILY [facility] Calcium Acetate (Phoslo) 667 mg PO TID [facility] Last Admin: 07/10/17 10:38 Dose: 667 mg Epoetin Pepe (Procrit) 10,000 unit SC QWK [facility] Last Admin: 07/10/17 10:39 Dose: 10,000 unit Epoetin Pepe (Procrit) 10,000 unit SC QWK [facility] Magnesium Hydroxide (Milk Of Magnesia) 30 ml PO DAILY [facility] Last Admin: 07/10/17 10:38 Dose: 30 ml Pantoprazole Sodium (Protonix Ec Tab) 20 mg PO DAILY [facility] Sodium Bicarbonate (Sodium Bicarbonate Tab) 650 mg PO Q8H [facility] Last Admin: 07/10/17 03:15 Dose: 650 mg Tamsulosin HCl (Flomax) 0.4 mg PO DAILY [facility] Last Admin: 07/10/17 10:38 Dose: 0.4 mg Vitamin B Complex/Vit C/Folic Acid (Nephro-Aleksandra) 1 tab PO DAILY [facility] Last Admin: 07/10/17 10:38 Dose: 1 tab - Labs Labs: 07/10/17 07:51 07/10/17 07:51
[2017-07-10] MEDS ORDERED: Sod Polystyrene Sulf 15 gm/60 ml Oral Susp PO ONE (12:30)
[2017-07-10] MEDS: Sodium Chloride 0.45% 1,000 ML IV SCH (12:38)
--- NOTE | 2017-07-10 13:07 | CP.PCM.PN ---
Subjective - Date & Time of Evaluation Date of Evaluation: 07/10/17 Time of Evaluation: 13:05 - Subjective Subjective: CHIEF COMPLAINTS TODAY : BLOOD TINGED URINE ROS. HEENT : N. Resp : No cough, wheezing ,pleuritic CP ,or hemoptysis Cardio : No anginal CP, PND, orthopnea, palpitation GI : No abd.pain, n/v ,diarrhea or GI bleeding . ESCROW REPRESENTATIVE : No headache, vertigo, focal deficit. Musculoskel : No joint swelling , Derm : No rash Psych : Normal affect. Ext : No swelling ,calf pain PE. Pt. is alert awake in no distress. CACHEXIA V.S As noted in the chart Head ,ear nose,throat and eyes : Normal. Neck : Supple with normal carotids. Lungs: Clear air entry. Heart : S1 & S2 normal with S4. No murmur. Abd : Soft non tender with normal bowel sounds. Neuro : Moves all ext. with no localized deficit. Ext : No edema with intact pulses.Non tender calves Derm : No rashes or decubitus ulcer. LABS/RADIOLOGY: CHECK LABS ASSESSMENT/PLAN : CPM PT. IS MODERATE RISK FOR ANESTHESIA DUE TO LOW LV EF , RENAL FAILURE AND UNSTABLE ELECTROLYTES AND LOW BODY MASS Objective - Vital Signs/Intake and Output Vital Signs (last 24 hours): Temp Pulse Resp BP Pulse Ox 97.8 F 83 20 113/66 97 07/10/17 08:06 07/10/17 08:06 07/10/17 08:06 07/10/17 08:06 07/10/17 08:06 Intake and Output: 07/10/17 07/10/17 11:59 23:59 Intake Total 120 Balance 120 - Medications Medications: Current Medications Acetaminophen (Tylenol 325mg Tab) 325 mg PO Q6 PRN PRN Reason: Pain, moderate (4-7) Al Hydrox/Mg Hydrox/Simethicone (Maalox Plus 30 Ml) 30 ml PO Q4H PRN PRN Reason: Indigestion Calcitriol (Rocaltrol) 0.25 mcg PO DAILY [facility] Last Admin: 07/10/17 12:28 Dose: 0.25 mcg Calcium Acetate (Phoslo) 667 mg PO TID [facility] Last Admin: 07/10/17 10:38 Dose: 667 mg Epoetin Pepe (Procrit) 10,000 unit SC QWK [facility] Last Admin: 07/10/17 10:39 Dose: 10,000 unit Epoetin Pepe (Procrit) 10,000 unit SC QWK [facility] Sodium Chloride (Sodium Chloride 0.45%) 1,000 mls @ 60 mls/hr IV .[id number] [facility] Last Admin: 07/10/17 12:38 Dose: 60 mls/hr Magnesium Hydroxide (Milk Of Magnesia) 30 ml PO DAILY [facility] Last Admin: 07/10/17 10:38 Dose: 30 ml Pantoprazole Sodium (Protonix Ec Tab) 20 mg PO DAILY [facility] Last Admin: 07/10/17 10:39 Dose: 20 mg Sodium Bicarbonate (Sodium Bicarbonate Tab) 650 mg PO Q8H [facility] Last Admin: 07/10/17 12:23 Dose: 650 mg Tamsulosin HCl (Flomax) 0.4 mg PO DAILY [facility] Last Admin: 07/10/17 10:38 Dose: 0.4 mg Vitamin B Complex/Vit C/Folic Acid (Nephro-Aleksandra) 1 tab PO DAILY [facility] Last Admin: 07/10/17 10:38 Dose: 1 tab - Labs Labs: 07/10/17 07:51 07/10/17 07:51
[2017-07-10 13:31] LABS: RBC URINE 9 /hpf (0-3); URINE BILIRUBIN NEGATIVE (NEGATIVE); URINE BLOOD 1+ (NEGATIVE); URINE COLOR Yellow (YELLOW); URINE GLUCOSE (UA) NORMAL (Normal); URINE KETONE NEGATIVE (NEGATIVE); URINE LEUKOCYTE ESTERASE 3+ Leu/uL (Negative); URINE PROTEIN 1+ mg/dL (NEGATIVE); URINE UROBILINOGEN NORMAL mg/dL (0.2-1.0); WBC CLUMPS FEW /hpf; WBC URINE 119 /hpf (0-5)
[2017-07-10 22:52] LABS: POTASSIUM 5.3 mmol/L (3.6-5.2)
[2017-07-10 22:55] LABS: CALCIUM 7.8 mg/dl (8.6-10.4)
[2017-07-11] MEDS: Sodium Chloride 0.45% 1,000 ML IV SCH ×3 (05:40→22:00)
--- NOTE | 2017-07-11 06:31 | CON ---
FOLLOWUP RENAL CONSULTATION DATE: LOCATION: The patient is located in room 654, bed P. REQUESTING PHYSICIAN: Dr. Akhil Wang. REASON FOR FOLLOWUP: CKD V. 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 The patient has a Beck catheter for the last 4 weeks. The patient was recently admitted to [facility] with chief complaints of severe weakness, severe anemia, hemoglobin about 5, requiring multiple transfusions about 4 units and also found to have cardiomyopathy with LV function 10-15% and renal failure, BUN and creatinine more than 150 and 10 with obstructive uropathy, bilateral hydronephrosis. Subsequently, the patient had a Beck catheter placement and drained about 2 liters of urine and since then, the patient has Beck catheter and being treated for UTI with brandy. The patient is not in acute distress. Denies any chest pain or palpitations. Denies any fever or cough. No abdominal pain. No nausea, vomiting or diarrhea. PHYSICAL EXAMINATION: GENERAL: Mr. Palmer is a 77-year-old elderly, very cachectic male with poor p.o. intake. VITAL SIGNS: This morning, blood pressure is 102/58, pulse 78, respirations 18, temperature 98.1, saturation 95%, height 5 feet 5 inches and weight is 95 pounds. HEENT: Pupils are normal and reactive to light and accommodation. Conjunctivae pink. Sclerae anicteric. Tongue is moist. NECK: Trachea is midline. LUNGS: Symmetric on both sides. Bilateral breath sounds present. No crackles seen. CARDIOVASCULAR: [place] at the sixth intercostal space, midclavicular line. S1 and S2 audible. No murmur, no gallop. ABDOMEN: Normal in appearance, soft, tympanic. No guarding. No rigidity. No hepatosplenomegaly. CENTRAL NERVOUS SYSTEM: The patient is alert, awake and oriented x2 to x3. Sensory and motor system is grossly within normal limits. EXTREMITIES: No cyanosis, no clubbing, no edema. SKIN: Turgor is poor. CURRENT MEDICATIONS: Include as follows: Flomax 0.4 mg p.o. daily, Maalox 30 mL p.o. q. 4 hours and milk of magnesia 30 mL p.o. daily, Nephro-Aleksandra 1 tablet daily, calcium acetate 667 mg p.o. t.i.d., Procrit 10,000 units subcu q. weekly, and Protonix 20 mg p.o. daily, Rocaltrol 0.25 mcg p.o. daily, sodium bicarbonate 650 mg p.o. q. 8 hours, Tylenol. LABORATORY DATA: This morning include as of 07/10/2017 WBC 7.3, hemoglobin 9.3, hematocrit is 28.3, platelets 364. Sodium 137, potassium is 6, chloride 106, CO2 23, BUN 95, creatinine 4.7, glucose 84, calcium 8.1, phosphorus 4, and iron is 23, TIBC 215, iron saturation is 11, and ferritin is 213. A total bili 0.4, AST 29, ALT 25, alkaline phosphatase 114, total protein 7.1, albumin is 2.9, globulin 4.2. Urine analysis, yellow, hazy, pH 7, specific gravity is 1.011, protein 1+, ketones negative, glucose is normal, blood 1+, nitrites negative, bilirubin negative, urobilinogen normal, leukocyte esterase 3+, wbc 119, rbc 9, wbc clumps few. Urine culture as of 07/08/2017, no growth. ASSESSMENT: In summary, Mr. Palmer is a 77-year-old elderly very cachectic, male with a history of cardiomyopathy, renal failure, hyperkalemia, urinary tract infection who was admitted with hematuria and hyperkalemia with a poor p.o. intake. 1. Renal failure, chronic kidney disease V. Most likely this is his baseline now. No significant improvement in the last 2 to 3 weeks in the creatinine. 2. Hyperkalemia. 3. Cardiomyopathy. 4. Anemia secondary to renal failure and iron deficiency, cannot rule out multiple myeloma. PLAN: Kayexalate 30 g p.o. x1 dose. Also we will start IV fluids half normal saline at 60 mL per hour and repeat BMP stat and repeat again BMP in the a.m. We will follow with you. Follow with urology for possible cystoscopy. Thank you for allowing me to participate in your patient's care. Ruthann Duarte MD [facility] # [id number]
[2017-07-11 08:17] LABS: BASO # 0.1 K/uL (0.0-0.2); BASO % 0.9 % (0.0-2.0); EOS # 0.2 K/uL (0.0-0.7); HEMATOCRIT 27.8 % (35.0-51.0); LYMPH # 1.5 K/uL (1.0-4.3); MEAN CELL VOLUME 99.3 fL (80.0-94.0); MEAN CORPUSCULAR HEMOGLOBIN 32.4 pg (27.0-31.0); MEAN CORPUSCULAR HGB CONC 32.6 g/dL (33.0-37.0); MEAN PLATELET VOLUME 7.8 fL (7.2-11.7); MONO # 0.6 K/uL (0.0-0.8); RED CELL DISTRIBUTION WIDTH 19.6 % (11.5-14.5); WHITE BLOOD COUNT 6.4 K/uL (4.8-10.8)
[2017-07-11 08:29] LABS: POTASSIUM 5.4 mmol/L (3.6-5.2)
[2017-07-11 08:31] LABS: ALB/GLOB RATIO 0.7 (1.0-2.1); BILIRUBIN,TOTAL 0.5 mg/dL (0.2-1.3); TOTAL PROTEIN 6.6 g/dL (6.3-8.3)
[2017-07-11 08:32] LABS: CALCIUM 7.7 mg/dl (8.6-10.4)
[2017-07-11] MEDS ORDERED: Iohexol 240 (50 ml) ONE (08:47)
[2017-07-11] MEDS: Lidocaine 2% Jelly (Uro-Jet) ONE ×2 (08:51→09:38)
[2017-07-11] MEDS ORDERED: Lactated Ringer's 1,000 ML IV ONE ×2 (08:52)
[2017-07-11] MEDS: cefTRIAXone IV 1 gm in Dextros 50 ML IVPB ONE ×2 (08:52→09:26)
[2017-07-11] MEDS ORDERED: Etomidate 20 mg/10ml Inj IV ONE (09:16)
[2017-07-11] MEDS ORDERED: Iohexol 240 200 ML IJ ONE (09:19)
[2017-07-11] MEDS ORDERED: Midazolam 2 MG/2 ML VIAL ONE (09:24)
[2017-07-11] MEDS: Pantoprazole 20 mg EC Tab PO SCH (10:00)
[2017-07-11] MEDS: Magnesium Hydroxide Susp 30 ml UD PO SCH (10:00)
[2017-07-11] MEDS: Multivitamin Vitamin B Complex (Nephro-Vite) Tab PO SCH (10:00)
--- NOTE | 2017-07-11 10:01 | PCM.SURG1 ---
Surgeon's Initial Post Op Note - Surgeon's Notes Surgeon: aj garcia Cardiology Coordinator: none Type of Anesthesia: IV Sedation Pre-Operative Diagnosis: urinary retention. hematuria Operative Findings: same. bph. cystitis Post-Operative Diagnosis: same Operation Performed: cystogram. ccystoscopy (16 Fr flexible cystoscope) Specimen/Specimens Removed: none Estimated Blood Loss: EBL {In ML}: 0 Blood Products Given: N/A Post-Op Condition: Good Date of Surgery/Procedure: 07/11/17 Time of Surgery/Procedure: 09:55
[2017-07-11] MEDS ORDERED: HYDROmorphone 0.5 mg/0.5 ml ISec IVP PRN (10:03)
--- NOTE | 2017-07-11 13:18 | CP.PCM.PN ---
Subjective - Date & Time of Evaluation Date of Evaluation: 07/11/17 Time of Evaluation: 13:17 - Subjective Subjective: CHIEF COMPLAINTS TODAY : BLOOD TINGED URINE S/P CYSTOSCOPY ROS. HEENT : N. Resp : No cough, wheezing ,pleuritic CP ,or hemoptysis Cardio : No anginal CP, PND, orthopnea, palpitation GI : No abd.pain, n/v ,diarrhea or GI bleeding . TRIMMING PRESS OPERATOR : No headache, vertigo, focal deficit. Musculoskel : No joint swelling , Derm : No rash Psych : Normal affect. Ext : No swelling ,calf pain PE. Pt. is alert awake in no distress. [place] V.S As noted in the chart Head ,ear nose,throat and eyes : Normal. Neck : Supple with normal carotids. Lungs: Clear air entry. Heart : S1 & S2 normal with S4. No murmur. Abd : Soft non tender with normal bowel sounds. Neuro : Moves all ext. with no localized deficit. Ext : No edema with intact pulses.Non tender calves Derm : No rashes or decubitus ulcer. LABS/RADIOLOGY: CHECK LABS ASSESSMENT/PLAN : MONITOR RENAL PARAMETERS URINE C/S NEG Objective - Vital Signs/Intake and Output Vital Signs (last 24 hours): Temp Pulse Resp BP Pulse Ox 97.1 F L 85 15 94/65 L 100 07/11/17 11:00 07/11/17 11:00 07/11/17 11:00 07/11/17 11:00 07/11/17 11:00 Intake and Output: 07/11/17 07/11/17 11:59 23:59 Intake Total 480 Output Total 1200 Balance -720 - Medications Medications: Current Medications Acetaminophen (Tylenol 325mg Tab) 325 mg PO Q6 PRN PRN Reason: Pain, moderate (4-7) Al Hydrox/Mg Hydrox/Simethicone (Maalox Plus 30 Ml) 30 ml PO Q4H PRN PRN Reason: Indigestion Calcitriol (Rocaltrol) 0.25 mcg PO DAILY [facility] Last Admin: 07/11/17 10:00 Dose: Not Given Calcium Acetate (Phoslo) 667 mg PO TID [facility] Last Admin: 07/11/17 10:00 Dose: Not Given Epoetin Pepe (Procrit) 10,000 unit SC QWK [facility] Last Admin: 07/10/17 10:39 Dose: 10,000 unit Epoetin Pepe (Procrit) 10,000 unit SC QWK [facility] Sodium Chloride (Sodium Chloride 0.45%) 1,000 mls @ 60 mls/hr IV .[id number] [facility] Last Admin: 07/11/17 05:40 Dose: Not Given Magnesium Hydroxide (Milk Of Magnesia) 30 ml PO DAILY [facility] Last Admin: 07/11/17 10:00 Dose: Not Given Pantoprazole Sodium (Protonix Ec Tab) 20 mg PO DAILY [facility] Last Admin: 07/11/17 10:00 Dose: Not Given Sodium Bicarbonate (Sodium Bicarbonate Tab) 650 mg PO Q8H [facility] Last Admin: 07/11/17 03:01 Dose: Not Given Tamsulosin HCl (Flomax) 0.4 mg PO DAILY [facility] Last Admin: 07/11/17 10:00 Dose: Not Given Vitamin B Complex/Vit C/Folic Acid (Nephro-Aleksandra) 1 tab PO DAILY [facility] Last Admin: 07/11/17 10:00 Dose: Not Given - Labs Labs: 07/11/17 08:04 07/11/17 08:04
--- NOTE | 2017-07-11 19:18 | CP.PCM.PN ---
Subjective - Date & Time of Evaluation Date of Evaluation: 07/11/17 Time of Evaluation: 19:18 - Subjective Subjective: pt is seen and examined, follow up consult is dictated #[id number] Objective - Vital Signs/Intake and Output Vital Signs (last 24 hours): Temp Pulse Resp BP Pulse Ox 97.9 F 87 20 97/60 L 100 07/11/17 16:00 07/11/17 16:00 07/11/17 16:00 07/11/17 16:00 07/11/17 16:00 Intake and Output: 07/11/17 07/12/17 18:59 06:59 Output Total 750 Balance -750 - Medications Medications: Current Medications Acetaminophen (Tylenol 325mg Tab) 325 mg PO Q6 PRN PRN Reason: Pain, moderate (4-7) Al Hydrox/Mg Hydrox/Simethicone (Maalox Plus 30 Ml) 30 ml PO Q4H PRN PRN Reason: Indigestion Calcitriol (Rocaltrol) 0.25 mcg PO DAILY [facility] Last Admin: 07/11/17 10:00 Dose: Not Given Calcium Acetate (Phoslo) 667 mg PO TID [facility] Last Admin: 07/11/17 18:34 Dose: 667 mg Epoetin Pepe (Procrit) 10,000 unit SC QWK [facility] Last Admin: 07/10/17 10:39 Dose: 10,000 unit Epoetin Pepe (Procrit) 10,000 unit SC QWK [facility] Sodium Chloride (Sodium Chloride 0.45%) 1,000 mls @ 60 mls/hr IV .[id number] [facility] Last Admin: 07/11/17 18:32 Dose: 60 mls/hr Magnesium Hydroxide (Milk Of Magnesia) 30 ml PO DAILY [facility] Last Admin: 07/11/17 10:00 Dose: Not Given Pantoprazole Sodium (Protonix Ec Tab) 20 mg PO DAILY [facility] Last Admin: 07/11/17 10:00 Dose: Not Given Sodium Bicarbonate (Sodium Bicarbonate Tab) 650 mg PO Q8H [facility] Last Admin: 07/11/17 13:00 Dose: 650 mg Tamsulosin HCl (Flomax) 0.4 mg PO DAILY [facility] Last Admin: 07/11/17 10:00 Dose: Not Given Vitamin B Complex/Vit C/Folic Acid (Nephro-Aleksandra) 1 tab PO DAILY [facility] Last Admin: 07/11/17 10:00 Dose: Not Given - Labs Labs: 07/11/17 08:04 07/11/17 08:04
[2017-07-12 00:16] LABS: TOTAL PSA 4.3 ng/mL (<=4.0)
--- NOTE | 2017-07-12 00:48 | PN ---
FOLLOWUP RENAL CONSULTATION LOCATION: The patient is located in room 654, bed B. REQUESTED BY: Dr. Akhil Wang. REASON FOR FOLLOWUP: CKD V for further evaluation. 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 The patient has a history of obstructive uropathy, severe anemia, renal failure and bilateral hydroureteronephrosis and bladder outlet obstruction, status post Beck catheter placement about 4-5 weeks ago. The patient was also found to have a cardiomyopathy, secondary hyperparathyroidism and anemia and positive SPEP and UPEP. The patient is not in acute distress. The patient underwent cystoscopy this morning. Denies any chest pain or palpitation. Denies any fever or cough. Urine is slightly dark in color, cannot rule out MA, hematuria post cystoscopy. No complaints at this time. PHYSICAL EXAMINATION: GENERAL: The patient is a 77 years old elderly, very thin built, very cachectic male, not in distress. VITAL SIGNS: As follows; blood pressure 97/60, pulse 87, respiration 20, temperature 97.9, saturation 100%. Height is 5 feet 5inches and weight is 96 pounds. HEENT: Pupils are normally reactive to light and accommodation. Conjunctivae slightly pale. Sclerae are anicteric. Tongue is moist. Trachea is midline. LUNGS: Symmetric on both sides. Bilateral breath sounds present. Occasional basilar crackles present. CARDIOVASCULAR SYSTEM: [place] at the sixth intercostal space, midclavicular line. S1 and S2 audible. No murmur, no gallop. ABDOMEN: Normal in appearance. Soft and tympanic. No guarding. No hepatosplenomegaly. CENTRAL NERVOUS SYSTEM: The patient is alert, awake, and oriented x3. Nonfocal neuro examination. Cranial nerves II through XII grossly intact. Sensory and motor system is within normal limits. EXTREMITIES: No cyanosis. No clubbing. No edema. SKIN: Turgor is poor. CURRENT MEDICATIONS: Include as follows; Flomax 0.4 mg daily, Maalox 30 mL p.o. q. 4 hours p.r.n., milk of magnesia 30 mL daily, Nephro-Aleksandra 1 tablet daily, calcium acetate 667 mg p.o. t.i.d., Epogen 10,000 units subQ weekly, Protonix 20 mg daily, Rocaltrol 0.25 mcg daily, sodium bicarbonate 650 mg p.o. q. 8 hours, IV fluids half-normal saline at 60 mL per hour, and Tylenol. LABORATORY DATA: Includes as follows; as of 07/11/2017, WBC is 6.4, hemoglobin 9, hematocrit is 27.8, platelets 354. Sodium 137, potassium 5.4, chloride 107, CO2 of 22, BUN 94, creatinine is 4, calcium is 7.7, glucose 69. Total bili 0.5, AST 26, ALT 31, alkaline phosphatase is 104, total protein 6.6, albumin is 2.6. ASSESSMENT: In summary, the patient is a 77 years old elderly male with a history of renal failure, chronic kidney disease V, secondary hyperparathyroidism, cardiomyopathy, anemia with abnormal SPEP and UPEP and bilateral hydroureteronephrosis and benign prostatic hypertrophy with Beck catheter for the last 4 to 5 weeks and yesterday's post cystoscopy consistent with benign prostatic hypertrophy and cystitis. 1. Chronic kidney disease V, this may be his baseline. 2. Hyperkalemia secondary to renal failure. 3. Anemia secondary to renal failure, cannot rule out multiple myeloma. 4. Benign prostatic hypertrophy. 5. Cardiomyopathy. 6. Metabolic acidosis secondary to renal failure. PLAN: Continue gentle IV hydration and repeat BMP in a.m. Follow up with urology for further management post cystoscopy. The patient will benefit from the hemodialysis. Overall prognosis is guarded. Thank you for allowing me to participate in your patient's care. If the patient agrees, consider PermCath placement and initiation of the hemodialysis. Ruthann Duarte MD
[2017-07-12 06:21] LABS: BASO # 0.1 K/uL (0.0-0.2); BASO % 0.8 % (0.0-2.0); EOS # 0.2 K/uL (0.0-0.7); EOS % 2.6 % (0.0-4.0); HEMATOCRIT 26.8 % (35.0-51.0); LYMPH # 1.9 K/uL (1.0-4.3); LYMPH % 26.7 % (20.0-40.0); MEAN CELL VOLUME 97.7 fL (80.0-94.0); MEAN CORPUSCULAR HEMOGLOBIN 32.8 pg (27.0-31.0); MEAN CORPUSCULAR HGB CONC 33.5 g/dL (33.0-37.0); MEAN PLATELET VOLUME 7.3 fL (7.2-11.7); MONO # 0.6 K/uL (0.0-0.8); MONO % 8.1 % (0.0-10.0); RED CELL DISTRIBUTION WIDTH 19.3 % (11.5-14.5); WHITE BLOOD COUNT 7.2 K/uL (4.8-10.8)
[2017-07-12 06:31] LABS: POTASSIUM 5.8 mmol/L (3.6-5.2)
[2017-07-12 06:34] LABS: ALB/GLOB RATIO 0.6 (1.0-2.1); BILIRUBIN,TOTAL 0.3 mg/dL (0.2-1.3); CALCIUM 8.1 mg/dl (8.6-10.4); TOTAL PROTEIN 6.6 g/dL (6.3-8.3)
--- NOTE | 2017-07-12 08:30 | OP ---
PROCEDURE DATE: 07/11/2017 UROLOGY OPERATIVE REPORT PREOPERATIVE DIAGNOSES: 1. Urinary retention. 2. Hematuria. POSTOPERATIVE DIAGNOSES: 1. Urinary retention. 2. Hematuria. 3. Benign prostatic hypertrophy. 4. Cystitis. 5. Prostatic enlargement. PROCEDURES: 1. Cystogram. 2. Cystoscopy. OPERATING SURGEON: Dr. Britany Varela. DETAILS OF PROCEDURE: As follows. The patient received perioperative antibiotics. The patient was in the supine position. The cystogram was performed under fluoroscopic control. Ethylbenzene Converter Helper fluoroscopy of the pelvis was performed. Iodinated contrast dye was instilled via the Beck catheter. Fluoroscopic views of the bladder were obtained in TA and both oblique views. FINDINGS: The cystogram views demonstrated moderate trabeculation. There was elevation of the bladder base consistent with prostatic hypertrophy. There were no intrinsic or extrinsic filling defects within the bladder. There was no vesicoureteral reflux. Post-drainage films were obtained as well. The genitalia prepped and sterilely. Lidocaine jelly was instilled per urethra. Mild sedation was provided by the anesthesiologist. A 16-[place] flexible cystoscope sheath was introduced under direct vision. Urethra, prostate and bladder were inspected. FINDINGS There was no stricture in the anterior urethra. There was evidence of lateral lobe hypertrophy. In addition, there was middle lobe hypertrophy with intravesical intrusion. There was moderate bladder trabeculation. There was no bladder tumor. There was no bladder stone. There was diffuse moderate inflammation of the bladder. There were more focal areas of inflammation at various sites within the bladder. There was some hyperplastic mucosal changes as well. The bladder neck was reviewed in the retroflexed view. There was significant intravesical intrusion of the prostate with suggestion of a "ball valve" obstruction. The right trigone was inspected. The ureteral orifices were not identified. The lateral rodrigues of the bladder and the anterior wall of the bladder were well visualized. There was no bladder diverticulum noted. The cystoscope was removed. Beck catheter was inserted. Bladder drainage was clear. The patient tolerated the procedure without complications. Britany Varela MD cc: MD Akhil Roberson MD Yale Shulman, MD [facility] # [id number]
[2017-07-12] MEDS ORDERED: Sod Polystyrene Sulf 15 gm/60 ml Oral Susp PO ONE (08:32)
[2017-07-12] MEDS: Multivitamin Vitamin B Complex (Nephro-Vite) Tab PO SCH (10:00)
[2017-07-12] MEDS: Sodium Chloride 0.45% 1,000 ML IV SCH (10:07)
[2017-07-12] MEDS: Magnesium Hydroxide Susp 30 ml UD PO SCH (10:08)
--- NOTE | 2017-07-12 10:36 | RAD ---
INTRAOPERATIVE FLUOROSCOPY HISTORY: Cystogram. Urinary retention. TECHNIQUE/FINDINGS: Fluoroscopic guidance was provided by Radiology department. Please see operative report for full details. Seven images were provided. Total fluoroscopy time was 8.3 seconds. IMPRESSION: As above
--- NOTE | 2017-07-12 12:20 | CP.PCM.PN ---
Subjective - Date & Time of Evaluation Date of Evaluation: 07/12/17 Time of Evaluation: 12:19 - Subjective Subjective: CHIEF COMPLAINTS TODAY : BLOOD TINGED URINE S/P CYSTOSCOPY , ONLY CYSTITIS ROS. HEENT : N. Resp : No cough, wheezing ,pleuritic CP ,or hemoptysis Cardio : No anginal CP, PND, orthopnea, palpitation GI : No abd.pain, n/v ,diarrhea or GI bleeding . COB SAWYER : No headache, vertigo, focal deficit. Musculoskel : No joint swelling , Derm : No rash Psych : Normal affect. Ext : No swelling ,calf pain PE. Pt. is alert awake in no distress. CACHEX[place] V.S As noted in the chart Head ,ear nose,throat and eyes : Normal. Neck : Supple with normal carotids. Lungs: Clear air entry. Heart : S1 & S2 normal with S4. No murmur. Abd : Soft non tender with normal bowel sounds. Neuro : Moves all ext. with no localized deficit. Ext : No edema with intact pulses.Non tender calves Derm : No rashes or decubitus ulcer. LABS/RADIOLOGY: CR. DOWN TO 3.8, BUN 86 , URINE E.COLI+ COAG.NEG STAPH RESISITENT AB ASSESSMENT/PLAN : ID EVAL PT Objective - Vital Signs/Intake and Output Vital Signs (last 24 hours): Temp Pulse Resp BP Pulse Ox 98.0 F 89 18 101/65 99 07/12/17 07:40 07/12/17 07:40 07/12/17 07:40 07/12/17 07:40 07/12/17 07:40 Intake and Output: 07/12/17 07/12/17 11:59 23:59 Output Total 650 Balance -650 - Medications Medications: Current Medications Acetaminophen (Tylenol 325mg Tab) 325 mg PO Q6 PRN PRN Reason: Pain, moderate (4-7) Al Hydrox/Mg Hydrox/Simethicone (Maalox Plus 30 Ml) 30 ml PO Q4H PRN PRN Reason: Indigestion Calcitriol (Rocaltrol) 0.25 mcg PO DAILY [facility] Last Admin: 07/12/17 10:00 Dose: 0.25 mcg Calcium Acetate (Phoslo) 667 mg PO TID [facility] Last Admin: 07/12/17 10:00 Dose: 667 mg Epoetin Pepe (Procrit) 10,000 unit SC QWK [facility] Last Admin: 07/10/17 10:39 Dose: 10,000 unit Epoetin Pepe (Procrit) 10,000 unit SC QWK [facility] Sodium Chloride (Sodium Chloride 0.45%) 1,000 mls @ 60 mls/hr IV .[id number] [facility] Last Admin: 07/12/17 10:07 Dose: 60 mls/hr Magnesium Hydroxide (Milk Of Magnesia) 30 ml PO DAILY [facility] Last Admin: 07/12/17 10:08 Dose: Not Given Pantoprazole Sodium (Protonix Ec Tab) 20 mg PO DAILY [facility] Last Admin: 07/11/17 10:00 Dose: Not Given Sodium Bicarbonate (Sodium Bicarbonate Tab) 650 mg PO Q8H [facility] Last Admin: 07/12/17 04:28 Dose: 650 mg Tamsulosin HCl (Flomax) 0.4 mg PO DAILY [facility] Last Admin: 07/12/17 10:00 Dose: 0.4 mg Vitamin B Complex/Vit C/Folic Acid (Nephro-Aleksandra) 1 tab PO DAILY [facility] Last Admin: 07/12/17 10:00 Dose: 1 tab - Labs Labs: 07/12/17 06:09 07/12/17 06:09
[2017-07-12] MEDS: Pantoprazole 20 mg EC Tab PO SCH (12:48)
--- NOTE | 2017-07-12 13:31 | CP.PCM.CON ---
History of Present Illness - History of Present Illness History of Present Illness: INFECTIOUS DISEASE CONSULTATION HPI. 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 Patient creatinine on admission was more than 10 with the urine of 151. Patient underwent Sanon catheter insertion which drained about 2 L and subsequently the patient was kept on Sanon catheter. Patient was also found to have severe poor left ventricle function with left ventricular function of about 10-15% and also with bilateral pleural effusions status post right thoracentesis during his last admission. Patient also was found to have a UTI with Escherichia coli and Nina and was treated with IV Merrem and IV fluconazole. Patient was discharged to subacute rehabilitation from where he was admitted with chief complaints of hematuria on 07/09/17. Patient underwent cystogram and cystoscopy on 07/11/17 and found to have cystitis and benign prostatic hypertrophy. Urine cultures reported positive for pyuria with 3+ urinary leukocytes.URINE CULTURE +VE ESCHERICHIA COLI/SCN Infectious disease consultation therefore requested by PMD after instrumentation and cystoscopy of the bladder. Patient presently has a Sanon catheter in place which was changed during cystoscopy on 07/11/17. Patient denies any fever or chills. Patient had a CT chest abdomen and pelvis without contrast on 07/08/17 which showed decreasing bilateral pleural effusions with by EP for pulmonary fibrosis and cardiomegaly. Patient has also decreasing bilateral hydronephrosis and decreasing anasarca with enlarged prostate. Patient had a bladder ultrasound done on 06/07/17 during his previous hospitalization which also confirmed markedly enlarged prostate 4.7 x 4.3 x 5.3 cm and diffuse bladder wall thickening secondary to chronic bladder outlet obstruction. Patient presents creatinine is 3.8/BUN of 86 and potassium of 5.8. PSA is 4.3. 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 HEPATITIS C, ADVANCED CACHEXIA/MUSCLE LOSS. 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 DENIES SMOKING, ETHANOL USE, IVDA/SUBSTANCE ABUSE ALLERGIES; NKA. FH; NONCONTRIBUTORY. MEDS ; REVIEWED Review of Systems - Constitutional Constitutional: Weight Loss, Weakness. absent: Fever, Headache - EENT Eyes: absent: Dry Eye, Photophobia Nose/Mouth/Throat: absent: Mouth Lesions - Cardiovascular Cardiovascular: Dyspnea on Exertion. absent: Chest Pain - Respiratory Respiratory: absent: Cough, Change in Mucous Color - Gastrointestinal Gastrointestinal: Constipation. absent: Abdominal Pain, Diarrhea, Nausea, Vomiting - Genitourinary Genitourinary: Hematuria, Pyuria, Urinary Hesitance (+ve folys), Hx Renal/ Bladder Calculi. absent: Bladder Distension - Musculoskeletal Musculoskeletal: Atrophy (of muscle generalized), Muscle Weakness - Neurological Neurological: absent: Memory Loss - Endocrine Endocrine: Fatigue - Hematologic/Lymphatic Hematologic: As Per HPI Past Patient History - Past Medical History & Family History Past Medical History?: No - Past Social History Smoking Status: Never Smoked - RENAL Hx Renal Failure: Yes (acute) Other/Comment: admitted on 06-27 - for acute renal failure - ENDOCRINE/METABOLIC Hx Endocrine Disorders: No - HEMATOLOGICAL/ONCOLOGICAL Hx Anemia: Yes - INTEGUMENTARY Hx Dermatological Problems: No - MUSCULOSKELETAL/RHEUMATOLOGICAL Hx Falls: Yes - GASTROINTESTINAL Hx Gastroesophageal Reflux: Yes Other/Comment:  - GENITOURINARY/GYNECOLOGICAL Hx Prostate Problems: Yes Hx Urinary Tract Infection: Yes Other/Comment: hx utis-pt has indwelling sanon from long-term - PSYCHIATRIC Hx Substance Use: No - SURGICAL HISTORY Hx Surgeries: No - ANESTHESIA Hx Anesthesia: No Hx Anesthesia Reactions: No Hx Malignant Hyperthermia: No Meds Allergies/Adverse Reactions: Allergies Allergy/AdvReac Type Severity Reaction Status Date / Time seasonal allergies Allergy Mild Uncoded 07/08/17 20:37 - Medications Medications: Current Medications Acetaminophen (Tylenol 325mg Tab) 325 mg PO Q6 PRN PRN Reason: Pain, moderate (4-7) Calcitriol (Rocaltrol) 0.25 mcg PO DAILY [facility] Last Admin: 07/12/17 10:00 Dose: 0.25 mcg Calcium Acetate (Phoslo) 667 mg PO TID [facility] Last Admin: 07/12/17 10:00 Dose: 667 mg Epoetin Pepe (Procrit) 10,000 unit SC QWK [facility] Last Admin: 07/10/17 10:39 Dose: 10,000 unit Epoetin Pepe (Procrit) 10,000 unit SC QWK [facility] Sodium Chloride (Sodium Chloride 0.45%) 1,000 mls @ 60 mls/hr IV .[id number] [facility] Last Admin: 07/12/17 10:07 Dose: 60 mls/hr Pantoprazole Sodium (Protonix Ec Tab) 20 mg PO DAILY [facility] Last Admin: 07/12/17 12:48 Dose: 20 mg Sodium Bicarbonate (Sodium Bicarbonate Tab) 650 mg PO Q8H [facility] Last Admin: 07/12/17 12:48 Dose: 650 mg Tamsulosin HCl (Flomax) 0.4 mg PO DAILY [facility] Last Admin: 07/12/17 10:00 Dose: 0.4 mg Vitamin B Complex/Vit C/Folic Acid (Nephro-Aleksandra) 1 tab PO DAILY [facility] Last Admin: 07/12/17 10:00 Dose: 1 tab Physical Exam - Constitutional Appears: No Acute Distress, Cachectic, Chronically Ill - Head Exam Head Exam: NORMAL INSPECTION - Eye Exam Eye Exam: EOMI, PERRL. absent: Scleral icterus - ENT Exam ENT Exam: Normal Oropharynx - Neck Exam Neck exam: Positive for: Normal Inspection - Respiratory Exam Respiratory Exam: Decreased Breath Sounds - Cardiovascular Exam Cardiovascular Exam: REGULAR RHYTHM, +S1, +S2 - GI/Abdominal Exam GI & Abdominal Exam: Normal Bowel Sounds, Soft. absent: Tenderness - Extremities Exam Extremities exam: Positive for: pedal edema. Negative for: calf tenderness - Back Exam Back exam: absent: CVA tenderness (L), CVA tenderness (R) - Neurological Exam Neurological exam: Alert, CN II-XII Intact, Oriented x3, Reflexes Normal - Psychiatric Exam Psychiatric exam: Normal Mood - Skin Skin Exam: Dry, Warm Results - Vital Signs Recent Vital Signs: Last Vital Signs Temp 98.0 F 07/12/17 07:40 Pulse 89 07/12/17 07:40 Resp 18 07/12/17 07:40 BP 101/65 07/12/17 07:40 Pulse Ox 99 07/12/17 07:40 - Labs Result Diagrams: 07/12/17 06:09 07/12/17 06:09 Labs: Laboratory Results - last 24 hr 07/10/17 07/10/17 07/12/17 07:51 14:08 06:09 WBC 7.2 RBC 2.74 L Hgb 9.0 L Hct 26.8 L MCV 97.7 H MCH 32.8 H MCHC 33.5 RDW 19.3 H Plt Count 324 MPV 7.3 Neut % (Auto) 61.8 Lymph % (Auto) 26.7 [place] % (Auto) 8.1 Eos % (Auto) 2.6 Baso % (Auto) 0.8 Neut # 4.4 Lymph # 1.9 [place] # 0.6 Eos # 0.2 Baso # 0.1 Sodium Potassium Chloride Carbon Dioxide Anion Gap BUN Creatinine Est GFR ( Amer) Est GFR (Non-Af Amer) Random Glucose Calcium Total Bilirubin AST ALT Alkaline Phosphatase Total Protein Albumin Globulin Albumin/Globulin Ratio Free PSA 1.8 % Free PSA 42 Total PSA 4.3 H Prostate Cancer Risk 8 Calcium (PTH Intact) 8.0 L 07/12/17 06:09 WBC RBC Hgb Hct MCV MCH MCHC RDW Plt Count MPV Neut % (Auto) Lymph % (Auto) [place] % (Auto) Eos % (Auto) Baso % (Auto) Neut # Lymph # [place] # Eos # Baso # Sodium 136 Potassium 5.8 H Chloride 102 Carbon Dioxide 22 Anion Gap 18 BUN 86 H Creatinine 3.8 H Est GFR ( Amer) 19 Est GFR (Non-Af Amer) 16 Random Glucose 73 L Calcium 8.1 L Total Bilirubin 0.3 AST 19 ALT 30 Alkaline Phosphatase 96 Total Protein 6.6 Albumin 2.5 L Globulin 4.1 H Albumin/Globulin Ratio 0.6 L Free PSA % Free PSA Total PSA Prostate Cancer Risk Calcium (PTH Intact) - Imaging and Cardiology CT scan - chestabdomen and pelvis without contrast Status: Report reviewed by me Assessment & Plan (1) Urinary retention due to benign prostatic hyperplasia Status: Acute (2) Cystitis Status: Acute (3) Renal failure Status: Acute (4) Cachexia Status: Acute (5) Cardiomyopathy Status: Acute (6) Hepatitis C antibody positive in blood Status: Acute (7) Symptomatic anemia Status: Acute - Assessment and Plan (Free Text) Assessment: IMPRESSION; . URINARY RETENTION/ HEMATURIA WITH BILATERAL HYDRONEPHROSIS. . CYSTITIS. . BENIGN PROSTATIC HYPERTROPHY S/P CYSTOGRAM/CYSTOSCOPY 07/11/17. . RENAL FAILURE. . CARDIOMYOPATHY ?UNCLEAR ETIOLOGY. . MARKED CACHEXIA/WEIGHT LOSS ? MALIGNANCY. . HEPATITIS C -ANTIBODY-POSITIVE. . SYMPTOMATIC ANEMIA. . B/L PLEURAL EFFUSIONS/ANASARCA. . HX CONSTIPATION PLAN; PANCULTURES REPEAT UA URINE CULTURES. START iv CEFTRIAXONE 1 G EVERY 24 HOURLY .07/12/17. ESR, CRP TSH 25-HYDROXY VITAMIN D3 - LEVELS. fOLLOW-UP CULTURES TO ADJUST ANTIBIOTICS.. STOOLS FOR OCCULT BLOOD WILL FOLLOW ALONG WITH YOU AND MAKE ADJUSTMENTS NEEDED. CASE DISCUSSED WITH THE STAFF/PMD..
[2017-07-12 14:51] LABS: RBC URINE 9 /hpf (0-3); URINE BILIRUBIN NEGATIVE (NEGATIVE); URINE BLOOD 1+ (NEGATIVE); URINE COLOR Yellow (YELLOW); URINE GLUCOSE (UA) NORMAL (Normal); URINE KETONE NEGATIVE (NEGATIVE); URINE LEUKOCYTE ESTERASE 3+ Leu/uL (Negative); URINE PROTEIN 2+ mg/dL (NEGATIVE); URINE UROBILINOGEN NORMAL mg/dL (0.2-1.0); WBC URINE 30 /hpf (0-5)
--- NOTE | 2017-07-12 17:09 | CP.PCM.PN ---
Subjective - Date & Time of Evaluation Date of Evaluation: 07/12/17 Time of Evaluation: 17:08 - Subjective Subjective: pt is seen and examined, follow up consult is dictated #[id number] agree with lizzy Objective - Vital Signs/Intake and Output Vital Signs (last 24 hours): Temp Pulse Resp BP Pulse Ox 98.2 F 88 20 97/56 L 99 07/12/17 15:25 07/12/17 15:25 07/12/17 15:25 07/12/17 15:25 07/12/17 15:25 Intake and Output: 07/12/17 07/12/17 06:59 18:59 Intake Total 200 1000 Output Total 1550 850 Balance -1350 150 - Medications Medications: Current Medications Acetaminophen (Tylenol 325mg Tab) 325 mg PO Q6 PRN PRN Reason: Pain, moderate (4-7) Calcitriol (Rocaltrol) 0.25 mcg PO DAILY [facility] Last Admin: 07/12/17 10:00 Dose: 0.25 mcg Calcium Acetate (Phoslo) 667 mg PO TID [facility] Last Admin: 07/12/17 14:32 Dose: 667 mg Epoetin Pepe (Procrit) 10,000 unit SC QWK [facility] Last Admin: 07/10/17 10:39 Dose: 10,000 unit Epoetin Pepe (Procrit) 10,000 unit SC QWK [facility] Sodium Chloride (Sodium Chloride 0.45%) 1,000 mls @ 60 mls/hr IV .[id number] [facility] Last Admin: 07/12/17 10:07 Dose: 60 mls/hr Ceftriaxone Sodium 1 gm/ (Sodium Chloride) 100 mls @ 100 mls/hr IVPB DAILY [facility] Last Admin: 07/12/17 14:32 Dose: 100 mls/hr Pantoprazole Sodium (Protonix Ec Tab) 20 mg PO DAILY [facility] Last Admin: 07/12/17 12:48 Dose: 20 mg Sodium Bicarbonate (Sodium Bicarbonate Tab) 650 mg PO Q8H [facility] Last Admin: 07/12/17 12:48 Dose: 650 mg Tamsulosin HCl (Flomax) 0.4 mg PO DAILY [facility] Last Admin: 07/12/17 10:00 Dose: 0.4 mg Vitamin B Complex/Vit C/Folic Acid (Nephro-Aleksandra) 1 tab PO DAILY [facility] Last Admin: 07/12/17 10:00 Dose: 1 tab - Labs Labs: 07/12/17 06:09 07/12/17 06:09
--- NOTE | 2017-07-13 01:42 | PN ---
FOLLOWUP RENAL CONSULTATION DATE: LOCATION: The patient is located in room 654, bed P. REQUESTED BY: Akhil Wang MD REASON FOR FOLLOWUP: Chronic kidney disease and for further evaluation. 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 The patient underwent cystoscopy yesterday consistent with BPH and cystitis. The patient is also being treated for hyperkalemia. The patient is not in acute distress. He denies any chest pain, or palpitation. He denies any fever or cough. Status post Kayexalate and claims he has a good bowel movement. PHYSICAL EXAMINATION: VITAL SIGNS: As follows: blood pressure of 97/56, pulse of 88, respirations of 20, temperature of 98.2, and oxygen saturation of 99%. Height is 5 feet 5 inches and weight is 96 pounds. GENERAL: Mr. Palmer is a 77 years old elderly, very cachectic male, thin build and malnourished. HEENT: Pupils are normally reactive to light and accommodation. Conjunctivae are pink. Sclerae are anicteric. Tongue is moist. Trachea is midline. LUNGS: Symmetric on both sides. Bilateral breath sounds present. No crackles. CARDIOVASCULAR SYSTEM: [place] at the sixth intercostal space, midclavicular line. S1 and S2 audible. No murmur and no gallop. ABDOMEN: Normal in appearance. Soft and tympanic. No guarding and no hepatosplenomegaly. CENTRAL NERVOUS SYSTEM: The patient is alert, awake, and oriented x3. Nonfocal neurological examination. Cranial nerves II through XII grossly intact. Sensory system is grossly within normal. Motor system; power 3 to 4/5 in both lower extremities and upper extremities power 5/5. EXTREMITIES: No cyanosis. No clubbing. No edema. CURRENT MEDICATIONS: Include as follows Rocephin 1 g daily and Flomax 0.4 mg p.o. daily, Nephro-Aleksandra 1 tablet daily, PhosLo 667 mg p.o. t.i.d., Epogen 10,000 units subcutaneously weekly, Protonix 40 mg p.o. daily, Rocaltrol 0.25 mcg daily, sodium bicarbonate 650 mg p.o. q. 8 hours, IV fluids half-normal saline at 60 mL per hour, and Tylenol 325 mg p.o q. 6 hours. LABORATORY DATA: His other laboratory data as follows: As of 07/12/2017, WBC of 7.3, hemoglobin of 9, hematocrit is 26.8, and platelets are 324. Sodium is 136, potassium is 5.8, chloride is 102, CO2 is 22, BUN is 86, and creatinine 3.8. Glucose is 73 and calcium is 8.1. Total bilirubin is 0.3. AST is 19, ALT is 30, alkaline phosphatase is 96, total protein is 6.6, and albumin is 2.5. Urinalysis, yellow clear, pH of 7, specific gravity is 1.010, protein 2+ and glucose normal, ketones negative, blood 1+ and bilirubin is 92, urobilinogen is normal, leukocyte esterase is 3+ and wbc's of 30 and rbc's of 9. Urine cultures as of 07/10/2017, positive for E. coli and Staphylococcus coagulase negative, colony count 10,000 to 50,000 colony for sensitive. ASSESSMENT: In summary, Mr. Palmer is a 77 years old elderly very cachectic, male with cardiomyopathy, renal failure, anemia, secondary hyperparathyroidism and hyperkalemia. 1. Renal failure, chronic kidney disease V with renal function slightly improving secondary to bladder outlet obstruction. Continue Beck catheter. Continue Flomax 0.4 mg p.o. daily. 2. Cardiomyopathy. 3. Anemia secondary to renal failure, cannot rule out multiple myeloma. 4. Urinary tract infection. Continue antibiotics as per ID recommendation Dr. Rajwinder Richardson. We will check 24- hour urine protein, creatinine-creatinine clearance. We will follow with you. 5. Hyperkalemia. Agree with Kayexalate and followup BMP and potassium. Thank you for allowing me to participate in your patient's care. Ruthann Duarte MD
[2017-07-13] MEDS: Sodium Chloride 0.45% 1,000 ML IV SCH ×2 (03:12→20:29)
[2017-07-13 08:21] LABS: POTASSIUM 4.8 mmol/L (3.6-5.2)
[2017-07-13 08:23] LABS: ALB/GLOB RATIO 0.6 (1.0-2.1); BILIRUBIN,TOTAL 0.5 mg/dL (0.2-1.3); TOTAL PROTEIN 6.7 g/dL (6.3-8.3)
[2017-07-13 08:24] LABS: CALCIUM 7.5 mg/dl (8.6-10.4)
[2017-07-13 08:45] LABS: BASO # 0.1 K/uL (0.0-0.2); BASO % 0.8 % (0.0-2.0); EOS # 0.3 K/uL (0.0-0.7); EOS % 3.6 % (0.0-4.0); HEMATOCRIT 28.1 % (35.0-51.0); LYMPH # 2.4 K/uL (1.0-4.3); LYMPH % 33.9 % (20.0-40.0); MEAN CELL VOLUME 99.1 fL (80.0-94.0); MEAN CORPUSCULAR HEMOGLOBIN 33.3 pg (27.0-31.0); MEAN CORPUSCULAR HGB CONC 33.6 g/dL (33.0-37.0); MEAN PLATELET VOLUME 7.8 fL (7.2-11.7); MONO # 0.6 K/uL (0.0-0.8); MONO % 8.1 % (0.0-10.0); NRBC % 0.1 % (0.0-2.0); RED CELL DISTRIBUTION WIDTH 19.6 % (11.5-14.5)
[2017-07-13 08:54] LABS: THYROID STIMULATING HORMONE 2.19 mIU/L (0.46-4.68)
[2017-07-13] MEDS: Pantoprazole 20 mg EC Tab PO SCH (09:50)
[2017-07-13] MEDS: Multivitamin Vitamin B Complex (Nephro-Vite) Tab PO SCH (09:50)
--- NOTE | 2017-07-13 13:58 | CP.PCM.PN ---
Subjective - Date & Time of Evaluation Date of Evaluation: 07/13/17 Time of Evaluation: 13:57 - Subjective Subjective: CLINICALLY IMPROVING BUN/CR DOWN CYSTOSCOPY SHOWED ONLY CYSTITIS AND BPH WILL D/W URLO/ID TO TRANSFER BACK TO REHAB Objective - Vital Signs/Intake and Output Vital Signs (last 24 hours): Temp Pulse Resp BP Pulse Ox 97.4 F L 84 20 112/63 96 07/13/17 07:00 07/13/17 07:00 07/13/17 07:00 07/13/17 07:00 07/13/17 07:00 Intake and Output: 07/13/17 07/13/17 11:59 23:59 Output Total 400 Balance -400 - Medications Medications: Current Medications Acetaminophen (Tylenol 325mg Tab) 325 mg PO Q6 PRN PRN Reason: Pain, moderate (4-7) Calcitriol (Rocaltrol) 0.25 mcg PO DAILY [facility] Last Admin: 07/13/17 09:50 Dose: 0.25 mcg Calcium Acetate (Phoslo) 667 mg PO TID [facility] Last Admin: 07/13/17 09:50 Dose: 667 mg Epoetin Pepe (Procrit) 10,000 unit SC QWK [facility] Last Admin: 07/10/17 10:39 Dose: 10,000 unit Epoetin Pepe (Procrit) 10,000 unit SC QWK [facility] Ceftriaxone Sodium 1 gm/ (Sodium Chloride) 100 mls @ 100 mls/hr IVPB DAILY [facility] Last Admin: 07/13/17 09:52 Dose: 100 mls/hr Pantoprazole Sodium (Protonix Ec Tab) 20 mg PO DAILY [facility] Last Admin: 07/13/17 09:50 Dose: 20 mg Sodium Bicarbonate (Sodium Bicarbonate Tab) 650 mg PO Q8H [facility] Last Admin: 07/13/17 12:18 Dose: 650 mg Tamsulosin HCl (Flomax) 0.4 mg PO DAILY [facility] Last Admin: 07/13/17 09:50 Dose: 0.4 mg Vitamin B Complex/Vit C/Folic Acid (Nephro-Aleksandra) 1 tab PO DAILY [facility] Last Admin: 07/13/17 09:50 Dose: 1 tab - Labs Labs: 07/13/17 08:42 07/13/17 08:00
--- NOTE | 2017-07-13 18:38 | CP.PCM.PN ---
Subjective - Date & Time of Evaluation Date of Evaluation: 07/13/17 Time of Evaluation: 18:37 - Subjective Subjective: pt is seen and examined, follow up consult is dictated #[id number] Objective - Vital Signs/Intake and Output Vital Signs (last 24 hours): Temp Pulse Resp BP Pulse Ox 97.4 F L 99 H 20 98/58 L 95 07/13/17 15:05 07/13/17 15:05 07/13/17 15:05 07/13/17 15:05 07/13/17 15:05 Intake and Output: 07/13/17 07/13/17 06:59 18:59 Intake Total 680 Output Total 1120 Balance -440 - Medications Medications: Current Medications Acetaminophen (Tylenol 325mg Tab) 325 mg PO Q6 PRN PRN Reason: Pain, moderate (4-7) Calcitriol (Rocaltrol) 0.25 mcg PO DAILY [facility] Last Admin: 07/13/17 09:50 Dose: 0.25 mcg Calcium Acetate (Phoslo) 667 mg PO TID [facility] Last Admin: 07/13/17 17:50 Dose: 667 mg Epoetin Pepe (Procrit) 10,000 unit SC QWK [facility] Last Admin: 07/10/17 10:39 Dose: 10,000 unit Epoetin Pepe (Procrit) 10,000 unit SC QWK [facility] Ceftriaxone Sodium 1 gm/ (Sodium Chloride) 100 mls @ 100 mls/hr IVPB DAILY [facility] Last Admin: 07/13/17 09:52 Dose: 100 mls/hr Pantoprazole Sodium (Protonix Ec Tab) 20 mg PO DAILY [facility] Last Admin: 07/13/17 09:50 Dose: 20 mg Sodium Bicarbonate (Sodium Bicarbonate Tab) 650 mg PO Q8H [facility] Last Admin: 07/13/17 12:18 Dose: 650 mg Tamsulosin HCl (Flomax) 0.4 mg PO DAILY [facility] Last Admin: 07/13/17 09:50 Dose: 0.4 mg Vitamin B Complex/Vit C/Folic Acid (Nephro-Aleksandra) 1 tab PO DAILY [facility] Last Admin: 07/13/17 09:50 Dose: 1 tab - Labs Labs: 07/13/17 08:42 07/13/17 08:00
--- NOTE | 2017-07-13 20:05 | CP.PCM.PN ---
Subjective - Date & Time of Evaluation Date of Evaluation: 07/13/17 Time of Evaluation: 20:05 - Subjective Subjective: AFEBRILE FEELING BETTER URINE IN THE [place] CLEARING UP. NO FURTHER HEMATURIA. LABS; CREATININE 3.6/bun IMPROVING BLOOD CULTURES 07/12/17 -VE GROWTH FOR 24 HOURS. TSH N CRP -HIGH Objective - Vital Signs/Intake and Output Vital Signs (last 24 hours): Temp Pulse Resp BP Pulse Ox 97.4 F L 99 H 20 98/58 L 95 07/13/17 15:05 07/13/17 15:05 07/13/17 15:05 07/13/17 15:05 07/13/17 15:05 - Medications Medications: Current Medications Acetaminophen (Tylenol 325mg Tab) 325 mg PO Q6 PRN PRN Reason: Pain, moderate (4-7) Calcitriol (Rocaltrol) 0.25 mcg PO DAILY [facility] Last Admin: 07/13/17 09:50 Dose: 0.25 mcg Calcium Acetate (Phoslo) 667 mg PO TID [facility] Last Admin: 07/13/17 17:50 Dose: 667 mg Epoetin Pepe (Procrit) 10,000 unit SC QWK [facility] Last Admin: 07/10/17 10:39 Dose: 10,000 unit Epoetin Pepe (Procrit) 10,000 unit SC QWK [facility] Ceftriaxone Sodium 1 gm/ (Sodium Chloride) 100 mls @ 100 mls/hr IVPB DAILY [facility] Last Admin: 07/13/17 09:52 Dose: 100 mls/hr Pantoprazole Sodium (Protonix Ec Tab) 20 mg PO DAILY [facility] Last Admin: 07/13/17 09:50 Dose: 20 mg Sodium Bicarbonate (Sodium Bicarbonate Tab) 650 mg PO Q8H [facility] Last Admin: 07/13/17 12:18 Dose: 650 mg Tamsulosin HCl (Flomax) 0.4 mg PO DAILY [facility] Last Admin: 07/13/17 09:50 Dose: 0.4 mg Vitamin B Complex/Vit C/Folic Acid (Nephro-Aleksandra) 1 tab PO DAILY [facility] Last Admin: 07/13/17 09:50 Dose: 1 tab - Labs Labs: 07/13/17 08:42 07/13/17 08:00 - Constitutional Appears: No Acute Distress, Cachectic, Chronically Ill - Head Exam Head Exam: NORMAL INSPECTION - Eye Exam Eye Exam: EOMI, PERRL. absent: Scleral icterus - ENT Exam ENT Exam: Normal Oropharynx - Neck Exam Neck Exam: Normal Inspection - Respiratory Exam Respiratory Exam: Decreased Breath Sounds - Cardiovascular Exam Cardiovascular Exam: Tachycardia, +S1, +S2 - GI/Abdominal Exam GI & Abdominal Exam: Soft, Normal Bowel Sounds. absent: Organomegaly - Back Exam Back Exam: absent: CVA tenderness (L), CVA tenderness (R) - Neurological Exam Neurological Exam: Alert, Awake, CN II-XII Intact, Oriented x3 (SEVERE MUSCLE WASTING) - Psychiatric Exam Psychiatric exam: Normal Mood - Skin Skin Exam: Dry, Warm Assessment and Plan (1) Urinary retention due to benign prostatic hyperplasia Status: Acute (2) Cystitis Status: Acute (3) Renal failure Status: Acute (4) Cachexia Status: Acute (5) Cardiomyopathy Status: Acute (6) Hepatitis C antibody positive in blood Status: Acute (7) Symptomatic anemia Status: Acute - Assessment and Plan (Free Text) Assessment: IMPRESSION; . URINARY RETENTION/ HEMATURIA WITH BILATERAL HYDRONEPHROSIS. . CYSTITIS. . BENIGN PROSTATIC HYPERTROPHY S/P CYSTOGRAM/CYSTOSCOPY 07/11/17. . RENAL FAILURE IMPROVING . CARDIOMYOPATHY ?UNCLEAR ETIOLOGY. . MARKED CACHEXIA/WEIGHT LOSS ? MALIGNANCY. . HEPATITIS C -ANTIBODY-POSITIVE. . SYMPTOMATIC ANEMIA. . B/L PLEURAL EFFUSIONS/ANASARCA. . HX CONSTIPATION PLAN; PANCULTURES REPEAT UA URINE CULTURES. ON iv CEFTRIAXONE 1 G EVERY 24 HOURLY .07/12/17. 25-HYDROXY VITAMIN D - LEVELS. fOLLOW-UP CULTURES TO ADJUST ANTIBIOTICS.. STOOLS FOR OCCULT BLOOD PATIENT STARTED ON fLOMAX 0.4 MG ONCE A DAY. CASE DISCUSSED WITH pmd AND STAFF.
--- NOTE | 2017-07-14 05:11 | PN ---
LOCATION: The patient is located in room 654, bed P. REQUESTED BY: Akhil Wang MD REASON FOR FOLLOWUP: Chronic kidney disease, for further evaluation. 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 The patient underwent cystoscopy consistent with BPH and cystitis. The patient is feeling better, not in no acute distress. Denies any chest pain, palpitation. Denies any fever, cough. The patient was now out of bed to chair today. PHYSICAL EXAMINATION GENERAL: This is a 77-year-old very cachectic elderly male, not in distress. VITAL SIGNS: Blood pressure 98/58, pulse 99, respirations 20, temperature 97.4, saturation 95%. Height 5 feet 5 inches. Weight is 96 pounds. HEENT: Pupils are normally reactive to light and accommodation. Conjunctivae are pink. Sclerae are anicteric. Tongue is moist. Trachea is midline. CVS: [place] at the sixth intercostal space, midclavicular line. S1 and S2 audible. No murmur or gallop. LUNGS: Symmetric on both sides. Bilateral breath sounds present. Clear on auscultation. ABDOMEN: Scaphoid, soft. Tympanic. No guarding. No rigidity. No hepatosplenomegaly. EXTREMITIES: No cyanosis, no clubbing, no edema. 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 Nonfocal neuro examination. Cranial nerves II through XII grossly intact. Sensory and motor system is within normal limits. LABORATORY DATA: Include as follows, WBC 7, hemoglobin 9.4, hematocrit 28.1, platelets 322. ESR is 54. Sodium 137, potassium 4.8, chloride 106, CO2 of 20, BUN 81, creatinine 3.6, glucose is 79, calcium 7.5, total bilirubin 0.2, AST 21, ALT 30, alkaline phosphatase 92, and C-reactive protein is 6.8, total protein 6.7, albumin 2.6. Vitamin D total is less than 12.8 and TSH is 2.19. Urine culture as of 07/12/2017, urine culture is negative, less than 100,000 colony-forming units and blood culture x2 negative day #1. CURRENT MEDICATIONS: Include as follows, Rocephin 1 g daily, Flomax 0.4 mg p.o. daily, Nephro-Aleksandra 1 tablet daily, PhosLo 667 mg p.o. t.i.d., Epogen 10,000 units weekly, Protonix 20 mg p.o. daily, Rocaltrol 0.25 mcg p.o. daily, and sodium bicarbonate 650 mg p.o. q. 8 hours, and Tylenol. 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 1. Acute renal failure on chronic kidney disease. His initial BUN and creatinine more than 150/10. Now the BUN and creatinine is slowly improving with Beck catheter placement for the last 6 weeks. Continue bedside drainage. 2. Anemia secondary to renal failure, cannot rule out multiple myeloma. 3. Secondary hyperparathyroidism. Continue calcitriol 0.25 mcg daily and also continue Nephro-Aleksandra. 4. Cardiomyopathy. 5. Status post hyperkalemia, serum potassium level is within normal limits today. Continue low-potassium diet and continue IV fluids, gentle IV hydration, half normal saline at 60 to 70 mL per hour and follow BMP in the a.m. Continue Procrit weekly. Thank you for allowing me to participate in your patient's care. Ruthann Duarte MD
[2017-07-14] MEDS ORDERED: EPOETIN ALFA 10,000 UNIT/ML ML SC SCH (10:00)
[2017-07-14] MEDS: Multivitamin Vitamin B Complex (Nephro-Vite) Tab PO SCH (10:16)
[2017-07-14] MEDS: Pantoprazole 20 mg EC Tab PO SCH (10:16)
--- NOTE | 2017-07-14 14:00 | CP.PCM.PN ---
Subjective - Date & Time of Evaluation Date of Evaluation: 07/14/17 Time of Evaluation: 14:00 - Subjective Subjective: CLINICALLY IMPROVING BUN/CR DOWN CYSTOSCOPY SHOWED ONLY CYSTITIS AND BPH WILL D/W URLO/ID TO TRANSFER BACK TO REHAB Objective - Vital Signs/Intake and Output Vital Signs (last 24 hours): Temp Pulse Resp BP Pulse Ox 98.3 F 81 20 99/63 L 99 07/14/17 07:35 07/14/17 07:35 07/14/17 07:35 07/14/17 07:35 07/14/17 07:35 Intake and Output: 07/14/17 07/14/17 11:59 23:59 Intake Total 580 Output Total 1000 Balance -420 - Medications Medications: Current Medications Acetaminophen (Tylenol 325mg Tab) 325 mg PO Q6 PRN PRN Reason: Pain, moderate (4-7) Calcitriol (Rocaltrol) 0.25 mcg PO DAILY [facility] Last Admin: 07/14/17 10:15 Dose: 0.25 mcg Calcium Acetate (Phoslo) 667 mg PO TID [facility] Last Admin: 07/14/17 10:16 Dose: 667 mg Epoetin Pepe (Procrit) 10,000 unit SC QWK [facility] Last Admin: 07/10/17 10:39 Dose: 10,000 unit Epoetin Pepe (Procrit) 10,000 unit SC QWK [facility] Last Admin: 07/14/17 10:32 Dose: 10,000 unit Ceftriaxone Sodium 1 gm/ (Sodium Chloride) 100 mls @ 100 mls/hr IVPB DAILY [facility] Last Admin: 07/14/17 10:16 Dose: 100 mls/hr Pantoprazole Sodium (Protonix Ec Tab) 20 mg PO DAILY [facility] Last Admin: 07/14/17 10:16 Dose: 20 mg Sodium Bicarbonate (Sodium Bicarbonate Tab) 650 mg PO Q8H [facility] Last Admin: 07/14/17 11:31 Dose: 650 mg Tamsulosin HCl (Flomax) 0.4 mg PO DAILY [facility] Last Admin: 07/14/17 10:15 Dose: 0.4 mg Vitamin B Complex/Vit C/Folic Acid (Nephro-Aleksandra) 1 tab PO DAILY [facility] Last Admin: 07/14/17 10:16 Dose: 1 tab - Labs Labs: 07/13/17 08:42 07/13/17 08:00
--- NOTE | 2017-07-14 14:11 | CP.PCM.PN ---
Subjective - Date & Time of Evaluation Date of Evaluation: 07/14/17 Time of Evaluation: 14:11 - Subjective Subjective: pt is seen and examined, follow up consult is dictated #[id number] Objective - Vital Signs/Intake and Output Vital Signs (last 24 hours): Temp Pulse Resp BP Pulse Ox 98.3 F 81 20 99/63 L 99 07/14/17 07:35 07/14/17 07:35 07/14/17 07:35 07/14/17 07:35 07/14/17 07:35 Intake and Output: 07/14/17 07/14/17 06:59 18:59 Intake Total 1300 Output Total 1750 Balance -450 - Medications Medications: Current Medications Acetaminophen (Tylenol 325mg Tab) 325 mg PO Q6 PRN PRN Reason: Pain, moderate (4-7) Calcitriol (Rocaltrol) 0.25 mcg PO DAILY [facility] Last Admin: 07/14/17 10:15 Dose: 0.25 mcg Calcium Acetate (Phoslo) 667 mg PO TID [facility] Last Admin: 07/14/17 14:07 Dose: 667 mg Epoetin Pepe (Procrit) 10,000 unit SC QWK [facility] Last Admin: 07/10/17 10:39 Dose: 10,000 unit Epoetin Pepe (Procrit) 10,000 unit SC QWK [facility] Last Admin: 07/14/17 10:32 Dose: 10,000 unit Ceftriaxone Sodium 1 gm/ (Sodium Chloride) 100 mls @ 100 mls/hr IVPB DAILY [facility] Last Admin: 07/14/17 10:16 Dose: 100 mls/hr Pantoprazole Sodium (Protonix Ec Tab) 20 mg PO DAILY [facility] Last Admin: 07/14/17 10:16 Dose: 20 mg Sodium Bicarbonate (Sodium Bicarbonate Tab) 650 mg PO Q8H [facility] Last Admin: 07/14/17 11:31 Dose: 650 mg Tamsulosin HCl (Flomax) 0.4 mg PO DAILY [facility] Last Admin: 07/14/17 10:15 Dose: 0.4 mg Vitamin B Complex/Vit C/Folic Acid (Nephro-Aleksandra) 1 tab PO DAILY [facility] Last Admin: 07/14/17 10:16 Dose: 1 tab - Labs Labs: 07/13/17 08:42 07/13/17 08:00
[2017-07-14] MEDS: Sodium Chloride 0.45% 1,000 ML IV SCH (17:22)
--- NOTE | 2017-07-14 19:33 | CON ---
FOLLOWUP RENAL CONSULTATION LOCATION: The patient is located in room 654, private room. 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 Now, the patient was admitted with hematuria and hyperkalemia. The patient underwent cystoscopy this week and consistent with BPH and cystitis. The patient is feeling much better. Urine is clear and has a good urine output. No chest pain or palpitation. No fever, no cough, no abdomen pain. No nausea, vomiting, or diarrhea. PHYSICAL EXAMINATION: VITAL SIGNS: Blood pressure 99/63, pulse 81, respirations 20, temperature 98.3, saturation 99%m, height 5 feet 5 inches and weight is 96 pounds. GENERAL: The patient is a 77-year-old elderly, thin-built, very cachectic male not in distress. HEENT: Pupils are normally reactive to light and accommodation. Conjunctivae are pink. Sclerae are anicteric. Tongue is moist. Trachea is midline. LUNGS: Symmetric on both sides. Bilateral breath sounds present. Clear to auscultation. CARDIOVASCULAR: [place] at the sixth intercostal space, midclavicular line. S1 and S2 audible. No murmur or gallop. ABDOMEN: Normal in appearance. Tympanic. No guarding. No rigidity. No hepatosplenomegaly. CENTRAL NERVOUS SYSTEM: The patient is alert, awake and oriented x3. Nonfocal neuro examination. Cranial nerves II through XII grossly intact. Sensory and motor system is within normal limits. EXTREMITIES: No cyanosis, no clubbing, no edema. CURRENT MEDICATIONS: Include as follows Rocephin 1 g daily, Flomax 0.4 mg p.o. daily, Nephro-Aleksandra 1 tablet daily, calcium 667 mg p.o. t.i.d., Epogen 10,000 units q. weekly, Protonix 20 mg daily, Rocaltrol 0.25 mcg p.o. daily, and sodium bicarbonate 650 mg p.o. q. 8 hours, and Tylenol. LABORATORY DATA: No news labs are available for today. As of 07/13/2017: H and H 9.4 and 28.1, potassium is 4.8, BUN 81, creatinine 3.6, sodium 137. SUMMARY: The patient is a 77-year-old elderly, male with cardiomyopathy, obstructive uropathy, BPH, anemia, and renal failure. 1. Renal failure, acute on chronic kidney disease, secondary obstructive uropathy. The patient has a Beck catheter for the last 4 to 6 weeks. Continue Beck catheter as per the urology. If he is okay to the urology, consider to remove the Beck catheter and monitor for the voiding trail. 2. Cardiomyopathy. Blood pressure is stable. 3. Anemia secondary to renal failure, cannot rule out multiple myeloma. 4. Status post hyperkalemia, last potassium is within normal limits. Continue to monitor the potassium and advised low-potassium diet. Continue to monitor BMP. We will follow with you. Thank you for allowing me to participate in your patient's care. Ruthann Duarte MD
--- NOTE | 2017-07-14 21:14 | CP.PCM.PN ---
Subjective - Date & Time of Evaluation Date of Evaluation: 07/14/17 Time of Evaluation: 21:00 - Subjective Subjective: AFEBRILE FEELING BETTER URINE IN THE [place] CLEARING UP. NO FURTHER HEMATURIA. LABS; CREATININE 3.6/bun IMPROVING BLOOD CULTURES 07/12/17 -VE GROWTH FOR 48 HOURS. Objective - Vital Signs/Intake and Output Vital Signs (last 24 hours): Temp Pulse Resp BP Pulse Ox 98.1 F 89 20 101/55 L 99 07/14/17 15:17 07/14/17 15:17 07/14/17 15:17 07/14/17 15:17 07/14/17 15:17 Intake and Output: 07/14/17 07/15/17 18:59 06:59 Output Total 1200 Balance -1200 - Medications Medications: Current Medications Acetaminophen (Tylenol 325mg Tab) 325 mg PO Q6 PRN PRN Reason: Pain, moderate (4-7) Calcitriol (Rocaltrol) 0.25 mcg PO DAILY [facility] Last Admin: 07/14/17 10:15 Dose: 0.25 mcg Calcium Acetate (Phoslo) 667 mg PO TID [facility] Last Admin: 07/14/17 17:22 Dose: 667 mg Epoetin Pepe (Procrit) 10,000 unit SC QWK [facility] Last Admin: 07/10/17 10:39 Dose: 10,000 unit Epoetin Pepe (Procrit) 10,000 unit SC QWK [facility] Last Admin: 07/14/17 10:32 Dose: 10,000 unit Ceftriaxone Sodium 1 gm/ (Sodium Chloride) 100 mls @ 100 mls/hr IVPB DAILY [facility] Last Admin: 07/14/17 10:16 Dose: 100 mls/hr Sodium Chloride (Sodium Chloride 0.45%) 1,000 mls @ 60 mls/hr IV .[id number] [facility] Stop: 07/18/17 18:00 Last Admin: 07/14/17 17:22 Dose: 60 mls/hr Pantoprazole Sodium (Protonix Ec Tab) 20 mg PO DAILY [facility] Last Admin: 07/14/17 10:16 Dose: 20 mg Sodium Bicarbonate (Sodium Bicarbonate Tab) 650 mg PO Q8H [facility] Last Admin: 07/14/17 11:31 Dose: 650 mg Tamsulosin HCl (Flomax) 0.4 mg PO DAILY [facility] Last Admin: 07/14/17 10:15 Dose: 0.4 mg Vitamin B Complex/Vit C/Folic Acid (Nephro-Aleksandra) 1 tab PO DAILY [facility] Last Admin: 07/14/17 10:16 Dose: 1 tab - Labs Labs: 07/13/17 08:42 07/13/17 08:00 - Constitutional Appears: No Acute Distress, Cachectic, Chronically Ill - Head Exam Head Exam: NORMAL INSPECTION - Eye Exam Eye Exam: EOMI, PERRL - ENT Exam ENT Exam: Normal Oropharynx - Neck Exam Neck Exam: Normal Inspection - Respiratory Exam Respiratory Exam: Clear to Ausculation Bilateral - Cardiovascular Exam Cardiovascular Exam: REGULAR RHYTHM, +S1, +S2 - GI/Abdominal Exam GI & Abdominal Exam: Soft, Normal Bowel Sounds. absent: Organomegaly - Extremities Exam Extremities Exam: absent: Calf Tenderness, Pedal Edema - Neurological Exam Neurological Exam: Awake, CN II-XII Intact, Oriented x3 - Psychiatric Exam Psychiatric exam: Normal Mood - Skin Skin Exam: Dry, Warm Assessment and Plan (1) Urinary retention due to benign prostatic hyperplasia Status: Acute (2) Cystitis Status: Acute (3) Renal failure Status: Acute (4) Cachexia Status: Acute (5) Cardiomyopathy Status: Acute (6) Hepatitis C antibody positive in blood Status: Acute (7) Symptomatic anemia Status: Acute - Assessment and Plan (Free Text) Assessment: IMPRESSION; . URINARY RETENTION/ HEMATURIA WITH BILATERAL HYDRONEPHROSIS. . CYSTITIS. . BENIGN PROSTATIC HYPERTROPHY S/P CYSTOGRAM/CYSTOSCOPY 07/11/17. . RENAL FAILURE IMPROVING . CARDIOMYOPATHY ?UNCLEAR ETIOLOGY. . MARKED CACHEXIA/WEIGHT LOSS ? MALIGNANCY. . HEPATITIS C -ANTIBODY-POSITIVE.(HEP C RNA QUANTITATIVE LEVELS UNDETECTABLE ) . SYMPTOMATIC ANEMIA. . B/L PLEURAL EFFUSIONS/ANASARCA. . HX CONSTIPATION PLAN; ON iv CEFTRIAXONE 1 G EVERY 24 HOURLY .07/12/17.-DAY 3 X 7DAYS 25-HYDROXY VITAMIN D - LEVELS.-P fOLLOW-UP CULTURES TO ADJUST ANTIBIOTICS.. STOOLS FOR OCCULT BLOOD PATIENT STARTED ON fLOMAX 0.4 MG ONCE A DAY. CASE DISCUSSED WITH PMD AND STAFF.
[2017-07-15 07:15] LABS: BASO % 0.7 % (0.0-2.0); EOS # 0.2 K/uL (0.0-0.7); EOS % 3.6 % (0.0-4.0); HEMATOCRIT 27.2 % (35.0-51.0); LYMPH # 1.6 K/uL (1.0-4.3); LYMPH % 25.5 % (20.0-40.0); MEAN CELL VOLUME 99.1 fL (80.0-94.0); MEAN CORPUSCULAR HGB CONC 33.3 g/dL (33.0-37.0); MEAN PLATELET VOLUME 7.6 fL (7.2-11.7); MONO # 0.4 K/uL (0.0-0.8); MONO % 6.9 % (0.0-10.0); RED CELL DISTRIBUTION WIDTH 19.5 % (11.5-14.5); WHITE BLOOD COUNT 6.5 K/uL (4.8-10.8)
[2017-07-15 07:22] LABS: CALCIUM 7.9 mg/dl (8.6-10.4); PHOSPHOROUS 4.4 mg/dL (2.5-4.5); POTASSIUM 4.9 mmol/L (3.6-5.2)
[2017-07-15] MEDS: Sodium Chloride 0.45% 1,000 ML IV SCH ×3 (08:00→18:42)
[2017-07-15] MEDS: Multivitamin Vitamin B Complex (Nephro-Vite) Tab PO SCH (10:12)
[2017-07-15] MEDS: Pantoprazole 20 mg EC Tab PO SCH (10:14)
--- NOTE | 2017-07-15 14:21 | CP.PCM.PN ---
Subjective - Date & Time of Evaluation Date of Evaluation: 07/15/17 Time of Evaluation: 14:19 - Subjective Subjective: pt is seen and examined, follow up consult is dictated #[id number] renal function is improving, consider to d/c sanon cath if ok to urology and voiding trail may need TURP Objective - Vital Signs/Intake and Output Vital Signs (last 24 hours): Temp Pulse Resp BP Pulse Ox 97.9 F 82 18 106/61 96 07/15/17 07:25 07/15/17 07:25 07/15/17 07:25 07/15/17 07:25 07/15/17 07:25 Intake and Output: 07/15/17 07/15/17 06:59 18:59 Intake Total 480 598 Output Total 1725 Balance -1245 598 - Medications Medications: Current Medications Acetaminophen (Tylenol 325mg Tab) 325 mg PO Q6 PRN PRN Reason: Pain, moderate (4-7) Calcitriol (Rocaltrol) 0.25 mcg PO DAILY [facility] Last Admin: 07/15/17 10:13 Dose: 0.25 mcg Calcium Acetate (Phoslo) 667 mg PO TID [facility] Last Admin: 07/15/17 10:13 Dose: 667 mg Epoetin Pepe (Procrit) 10,000 unit SC QWK [facility] Last Admin: 07/10/17 10:39 Dose: 10,000 unit Epoetin Pepe (Procrit) 10,000 unit SC QWK [facility] Last Admin: 07/14/17 10:32 Dose: 10,000 unit Ceftriaxone Sodium 1 gm/ (Sodium Chloride) 100 mls @ 100 mls/hr IVPB DAILY [facility] Last Admin: 07/15/17 10:18 Dose: 100 mls/hr Sodium Chloride (Sodium Chloride 0.45%) 1,000 mls @ 60 mls/hr IV .[id number] [facility] Stop: 07/18/17 18:00 Last Admin: 07/14/17 17:22 Dose: 60 mls/hr Pantoprazole Sodium (Protonix Ec Tab) 20 mg PO DAILY [facility] Last Admin: 07/15/17 10:14 Dose: 20 mg Sodium Bicarbonate (Sodium Bicarbonate Tab) 650 mg PO Q8H [facility] Last Admin: 07/15/17 11:27 Dose: 650 mg Tamsulosin HCl (Flomax) 0.4 mg PO DAILY [facility] Last Admin: 07/15/17 10:13 Dose: 0.4 mg Vitamin B Complex/Vit C/Folic Acid (Nephro-Aleksandra) 1 tab PO DAILY [facility] Last Admin: 07/15/17 10:12 Dose: 1 tab - Labs Labs: 07/15/17 07:04 07/15/17 07:04
--- NOTE | 2017-07-15 14:31 | CP.PCM.PN ---
Subjective - Date & Time of Evaluation Date of Evaluation: 07/15/17 Time of Evaluation: 14:31 - Subjective Subjective: CLINICALLY IMPROVING BUN/CR DOWN CYSTOSCOPY SHOWED ONLY CYSTITIS AND BPH WILL D/W URLO/ID TO TRANSFER BACK TO REHAB Objective - Vital Signs/Intake and Output Vital Signs (last 24 hours): Temp Pulse Resp BP Pulse Ox 97.9 F 82 18 106/61 96 07/15/17 07:25 07/15/17 07:25 07/15/17 07:25 07/15/17 07:25 07/15/17 07:25 Intake and Output: 07/15/17 07/15/17 11:59 23:59 Intake Total 598 Output Total 825 Balance -227 - Medications Medications: Current Medications Acetaminophen (Tylenol 325mg Tab) 325 mg PO Q6 PRN PRN Reason: Pain, moderate (4-7) Calcitriol (Rocaltrol) 0.25 mcg PO DAILY [facility] Last Admin: 07/15/17 10:13 Dose: 0.25 mcg Calcium Acetate (Phoslo) 667 mg PO TID [facility] Last Admin: 07/15/17 10:13 Dose: 667 mg Epoetin Pepe (Procrit) 10,000 unit SC QWK [facility] Last Admin: 07/10/17 10:39 Dose: 10,000 unit Epoetin Pepe (Procrit) 10,000 unit SC QWK [facility] Last Admin: 07/14/17 10:32 Dose: 10,000 unit Ceftriaxone Sodium 1 gm/ (Sodium Chloride) 100 mls @ 100 mls/hr IVPB DAILY [facility] Last Admin: 07/15/17 10:18 Dose: 100 mls/hr Sodium Chloride (Sodium Chloride 0.45%) 1,000 mls @ 60 mls/hr IV .[id number] [facility] Stop: 07/18/17 18:00 Last Admin: 07/14/17 17:22 Dose: 60 mls/hr Pantoprazole Sodium (Protonix Ec Tab) 20 mg PO DAILY [facility] Last Admin: 07/15/17 10:14 Dose: 20 mg Sodium Bicarbonate (Sodium Bicarbonate Tab) 650 mg PO Q8H [facility] Last Admin: 07/15/17 11:27 Dose: 650 mg Tamsulosin HCl (Flomax) 0.4 mg PO DAILY [facility] Last Admin: 07/15/17 10:13 Dose: 0.4 mg Vitamin B Complex/Vit C/Folic Acid (Nephro-Aleksandra) 1 tab PO DAILY [facility] Last Admin: 07/15/17 10:12 Dose: 1 tab - Labs Labs: 07/15/17 07:04 07/15/17 07:04
[2017-07-15 16:45] VITALS: RESP 20
--- NOTE | 2017-07-15 20:58 | CON ---
FOLLOWUP RENAL CONSULTATION DATE: LOCATION: The patient is located in room 654. REQUESTED BY: Dr. Akhil Wang. REASON FOR FOLLOWUP: Chronic kidney disease, hyperkalemia and anemia for further evaluation. 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 Now the urine is clear and has a good urine output. Denies any complaints. No chest pain. No palpitation. No fever. No cough. No abdominal pain. No nausea, vomiting or diarrhea. PHYSICAL EXAMINATION: GENERAL: Mr. Palmer is 77 years old elderly male, very cachectic, thin built, not in distress. VITAL SIGNS: As follows: Blood pressure 106/61, pulse 82, respirations 18, temperature 97.9, saturation 96%, height 5 feet 5 inches, tara is 96 pounds. HEENT: Pupils are normal and reactive to light and accommodation. Conjunctivae are pink. Sclerae are anicteric. Tongue is moist. Trachea is midline. LUNGS: Symmetric on both sides. Bilateral breath sounds present. Clear on auscultation. CARDIOVASCULAR SYSTEM: [place] at the sixth intercostal space, midclavicular line. S1 and S2 audible. No murmur or gallop. ABDOMEN: Normal in appearance. Soft and tympanic. No guarding. No hepatosplenomegaly. CENTRAL NERVOUS SYSTEM: The patient is alert, awake, oriented x3. Sensory and motor system is grossly within normal limits. EXTREMITIES: No cyanosis, no clubbing, and no edema. LABORATORY DATA: Include as follows, as of 07/15/2017, WBC is 6.4, hemoglobin 9.1, hematocrit is 27.2, platelets 267. Sodium 133, potassium 4.9, chloride 103, CO2 21, BUN 74, creatinine 3.3. Glucose is 71, calcium is 7.9, phosphorus 4.4. Urine culture as of 07/10/2017 positive for Staph coagulase negative and also E. coli. Repeat urine culture as of 07/12/2017 was negative less than 1000 colony forming units and blood cultures x2 negative day #2 from 07/12/2017. CURRENT MEDICATIONS: Include as follows, Rocephin 1 g daily, Flomax 0.4 mg daily, Nephro-Aleksandra 1 tablet daily, PhosLo 667 mg p.o. t.i.d., Procrit 10,000 units weekly and Protonix 20 mg p.o. daily, Rocaltrol 0.25 mcg daily, sodium bicarbonate 650 q. 8 hours, IV fluids half normal saline at 60 mL per hours and Tylenol 325 mg q. 6h. p.r.n. ASSESSMENT AND PLAN: In summary, Mr. Palmer is 77 years old elderly male, very cachectic with cardiomyopathy, anemia, renal failure, obstructive uropathy, hyperkalemia, metabolic acidosis, hyperparathyroidism. 1. Renal failure. Acute on chronic kidney disease. Renal function is slowly improving. Now continue Beck catheter with bedside drain and also continue Flomax. Consider to remove the Beck catheter and voiding trial tomorrow if it is okay with Urology. 2. Cardiomyopathy. 3. Anemia, secondary to renal failure cannot rule out multiple myeloma. 4. Benign prostatic hyperplasia. Continue Flomax. We will continue IV fluids and continue sodium bicarbonate and Epogen. I advise the patient to watch low potassium diet. No fluid restriction at this time. We will follow with you. Thank you for allowing me to participating in your patient's care. Ruthann Duarte MD
[2017-07-16] MEDS: Sodium Chloride 0.45% 1,000 ML IV SCH ×3 (01:35→18:18)
[2017-07-16] MEDS: Multivitamin Vitamin B Complex (Nephro-Vite) Tab PO SCH (09:02)
[2017-07-16] MEDS: Pantoprazole 20 mg EC Tab PO SCH (09:02)
--- NOTE | 2017-07-16 13:23 | CP.PCM.DIS ---
Provider - Provider Date of Admission: 07/09/17 03:04 Attending physician: Akhil Wang MD Time Spent in preparation of Discharge (in minutes): 30 Hospital Course - Lab Results Lab Results: Micro Results 07/12/17 13:35 Blood-Venous Blood Culture - Preliminary NO GROWTH AFTER 3 DAYS 07/12/17 13:35 Blood-Venous Blood Culture - Preliminary NO GROWTH AFTER 3 DAYS 07/12/17 14:50 Urine,Beck Urine Culture - Final No Growth (<1,000 CFU/ML) 07/10/17 11:10 Urine,Random Urine Culture - Final Escherichia Coli Coagulase Neg Staphylococcus 07/09/17 22:52 Urine,Beck Urine Culture - Final No Growth (<1,000 CFU/ML) 07/08/17 21:03 Urine Urine Culture - Final No Growth (<1,000 CFU/ML) Most Recent Lab Values WBC 6.5 K/uL (4.8-10.8) 07/15/17 07:04 RBC 2.75 Mil/uL (4.40-5.90) L 07/15/17 07:04 Hgb 9.1 g/dL (12.0-18.0) L 07/15/17 07:04 Hct 27.2 % (35.0-51.0) L 07/15/17 07:04 MCV 99.1 fL (80.0-94.0) H 07/15/17 07:04 MCH 33.0 pg (27.0-31.0) H 07/15/17 07:04 MCHC 33.3 g/dL (33.0-37.0) 07/15/17 07:04 RDW 19.5 % (11.5-14.5) H 07/15/17 07:04 Plt Count 267 K/uL (130-400) 07/15/17 07:04 MPV 7.6 fL (7.2-11.7) 07/15/17 07:04 Neut % (Auto) 63.3 % (50.0-75.0) 07/15/17 07:04 Lymph % (Auto) 25.5 % (20.0-40.0) 07/15/17 07:04 [place] % (Auto) 6.9 % (0.0-10.0) 07/15/17 07:04 Eos % (Auto) 3.6 % (0.0-4.0) 07/15/17 07:04 Baso % (Auto) 0.7 % (0.0-2.0) 07/15/17 07:04 Neut # 4.1 K/uL (1.8-7.0) 07/15/17 07:04 Lymph # 1.6 K/uL (1.0-4.3) 07/15/17 07:04 [place] # 0.4 K/uL (0.0-0.8) 07/15/17 07:04 Eos # 0.2 K/uL (0.0-0.7) 07/15/17 07:04 Baso # 0.0 K/uL (0.0-0.2) 07/15/17 07:04 ESR 54 mm/hr (0-15) H 07/13/17 08:42 Sodium 133 mmol/L (132-148) 07/15/17 07:04 Potassium 4.9 mmol/L (3.6-5.2) 07/15/17 07:04 Chloride 103 mmol/L (98-107) 07/15/17 07:04 Carbon Dioxide 21 mmol/L (22-30) L 07/15/17 07:04 Anion Gap 14 (10-20) 07/15/17 07:04 BUN 74 mg/dL (9-20) H 07/15/17 07:04 Creatinine 3.3 MG/DL (0.8-1.5) H 07/15/17 07:04 Est GFR ( Amer) 22 07/15/17 07:04 Est GFR (Non-Af Amer) 18 07/15/17 07:04 Random Glucose 71 mg/dL (75-110) L 07/15/17 07:04 Calcium 7.9 mg/dl (8.6-10.4) L 07/15/17 07:04 Phosphorus 4.4 mg/dL (2.5-4.5) 07/15/17 07:04 Iron 23 ug/dL (49-181) L 07/10/17 07:51 TIBC 215 ug/dL (250-450) L 07/10/17 07:51 % Saturation 11 (20-55) L 07/10/17 07:51 Ferritin 213.0 ng/mL 07/10/17 07:51 Total Bilirubin 0.5 mg/dL (0.2-1.3) 07/13/17 08:00 AST 21 U/L (17-59) 07/13/17 08:00 ALT 30 U/L (21-72) 07/13/17 08:00 Alkaline Phosphatase 92 U/L (38-126) 07/13/17 08:00 C-React Prot High Sens 6.84 mg/L (1.00-3.00) H 07/13/17 08:00 Total Protein 6.7 g/dL (6.3-8.3) 07/13/17 08:00 Albumin 2.6 g/dL (3.5-5.0) L 07/13/17 08:00 Globulin 4.1 gm/dL (2.2-3.9) H 07/13/17 08:00 Albumin/Globulin Ratio 0.6 (1.0-2.1) L 07/13/17 08:00 Lipase 499 U/L (23-300) H 07/08/17 21:18 Free PSA 1.8 ng/mL 07/10/17 14:08 % Free PSA 42 Percent (>25) 07/10/17 14:08 Total PSA 4.3 ng/mL (<=4.0) H 07/10/17 14:08 Prostate Cancer Risk 8 Percent 07/10/17 14:08 25-OH Vitamin D Total < 12.8 NG/ML (30.0-100.0) L 07/13/17 08:00 TSH 3rd Generation 2.19 mIU/L (0.46-4.68) 07/13/17 08:00 Calcium (PTH Intact) 8.0 mg/dL (8.6-10.3) L 07/10/17 07:51 PTH w/Ion &Tot Calcium 100 pg/mL (14-64) H 07/10/17 07:51 Urine Color Yellow (YELLOW) 07/12/17 14:30 Urine Clarity Clear (Clear) 07/12/17 14:30 Urine pH 7.0 (5.0-8.0) 07/12/17 14:30 Ur Specific [place] 1.010 (1.003-1.030) 07/12/17 14:30 Urine Protein 2+ mg/dL (NEGATIVE) H 07/12/17 14:30 Urine Glucose (UA) Normal mg/dL (Normal) 07/12/17 14:30 Urine Ketones Negative mg/dL (NEGATIVE) 07/12/17 14:30 Urine Blood 1+ (NEGATIVE) H 07/12/17 14:30 Urine Nitrate Negative (NEGATIVE) 07/12/17 14:30 Urine Bilirubin Negative (NEGATIVE) 07/12/17 14:30 Urine Urobilinogen Normal mg/dL (0.2-1.0) 07/12/17 14:30 Ur Leukocyte Esterase 3+ [place]/uL (Negative) H 07/12/17 14:30 Urine WBC (Auto) 30 /hpf (0-5) H 07/12/17 14:30 Urine RBC (Auto) 9 /hpf (0-3) H 07/12/17 14:30 Urine WBC Clumps (Auto) Few /hpf (NONE) H 07/10/17 13:16 Urine Bacteria Occ (<OCC) H 07/08/17 22:16 - Hospital Course Hospital Course: ADMITTED FROM REHAB FOR HEMATURIA PT WAS ADMITTED IN 1 MONTH AGO IN ACUTE RENAL FAILURE . CR 10, AND HYDRONEPHROSIS WITH POSSIBLE BLADDER TUMOR . PT IMPROVED ON IV FLUIDS AND CR. HAS REMAINED 4.5 , BUN, 100 PT HAS REFUSED DIALYSIS PT ALSO HAS SEVERE CARDIOMYOPATHY EF 15% . COULD NOT DO ANY CARDIAC W/U , CATH, DUE TO HIGH CR PT FIRST TIME HAD HEMATURIS LAST NITE IN REHAB PT IS CACHETIC AND SIGNIFICANT MUSCLE LOSS HAD UTI WAS TREATED WITH IV AB NOW PT HAS MANY WBC IN URINE ID/UROLOGY CONSULTED CYSTOSCOPY: MILD CYSTITIS , BPH PT WAS PUT ON FLOMAX BID AND IMPROVED WITH CR 3.7 URINE SHOWED E.COLI , RESPONDED TO IV AB PT RETURN TO REHAB Discharge Exam - Head Exam Head Exam: NORMAL INSPECTION Discharge Plan - Follow Up Plan Condition: STABLE Disposition: HOME/ ROUTINE
--- NOTE | 2017-07-16 13:55 | CP.PCM.PN ---
Subjective - Date & Time of Evaluation Date of Evaluation: 07/16/17 Time of Evaluation: 13:55 - Subjective Subjective: AFEBRILE S/P Mitchell REMOVAL BUT PATIENT UNABLE TO VOID Mitchell REINSERTED PER DR. HARRISON. 900 CC URINE OBTAINED. Mitchell LEFT IN NOTED. pATIENT PRESENTLY COMFORTABLE. LABS; CREATININE 3.3/bun IMPROVING BLOOD CULTURES 07/12/17 -VE GROWTH FOR 48 HOURS. URINE CULTURES NEGATIVE GROWTH. Objective - Vital Signs/Intake and Output Vital Signs (last 24 hours): Temp Pulse Resp BP Pulse Ox 97 F L 91 H 20 105/59 L 98 07/16/17 07:15 07/16/17 07:15 07/16/17 07:15 07/16/17 07:15 07/16/17 07:15 Intake and Output: 07/16/17 07/16/17 06:59 18:59 Intake Total 1516 Output Total 1100 Balance 416 - Medications Medications: Current Medications Acetaminophen (Tylenol 325mg Tab) 325 mg PO Q6 PRN PRN Reason: Pain, moderate (4-7) Calcitriol (Rocaltrol) 0.25 mcg PO DAILY [facility] Last Admin: 07/16/17 09:02 Dose: 0.25 mcg Calcium Acetate (Phoslo) 667 mg PO TID [facility] Last Admin: 07/16/17 13:30 Dose: 667 mg Epoetin Pepe (Procrit) 10,000 unit SC QWK [facility] Last Admin: 07/10/17 10:39 Dose: 10,000 unit Epoetin Pepe (Procrit) 10,000 unit SC QWK [facility] Last Admin: 07/14/17 10:32 Dose: 10,000 unit Ceftriaxone Sodium 1 gm/ (Sodium Chloride) 100 mls @ 100 mls/hr IVPB DAILY [facility] Last Admin: 07/16/17 09:00 Dose: 100 mls/hr Sodium Chloride (Sodium Chloride 0.45%) 1,000 mls @ 60 mls/hr IV .[id number] [facility] Stop: 07/18/17 18:00 Last Admin: 07/16/17 10:10 Dose: 60 mls/hr Pantoprazole Sodium (Protonix Ec Tab) 20 mg PO DAILY [facility] Last Admin: 07/16/17 09:02 Dose: 20 mg Sodium Bicarbonate (Sodium Bicarbonate Tab) 650 mg PO Q8H [facility] Last Admin: 07/16/17 13:30 Dose: 650 mg Tamsulosin HCl (Flomax) 0.4 mg PO BID [facility] Last Admin: 07/16/17 09:02 Dose: 0.4 mg Vitamin B Complex/Vit C/Folic Acid (Nephro-Aleksandra) 1 tab PO DAILY [facility] Last Admin: 07/16/17 09:02 Dose: 1 tab - Labs Labs: 07/15/17 07:04 07/15/17 07:04 - Constitutional Appears: No Acute Distress, Cachectic, Chronically Ill - Head Exam Head Exam: NORMAL INSPECTION - Eye Exam Eye Exam: EOMI, PERRL - ENT Exam ENT Exam: Normal Oropharynx - Neck Exam Neck Exam: Normal Inspection - Respiratory Exam Respiratory Exam: Clear to Ausculation Bilateral - GI/Abdominal Exam GI & Abdominal Exam: Soft, Normal Bowel Sounds. absent: Tenderness - Back Exam Back Exam: absent: CVA tenderness (L), CVA tenderness (R) - Neurological Exam Neurological Exam: Alert, Awake, CN II-XII Intact, Oriented x3 - Psychiatric Exam Psychiatric exam: Normal Mood - Skin Skin Exam: Dry, Warm Assessment and Plan (1) Urinary retention due to benign prostatic hyperplasia Status: Acute (2) Cystitis Status: Acute (3) Renal failure Status: Acute (4) Cachexia Status: Acute (5) Cardiomyopathy Status: Acute (6) Hepatitis C antibody positive in blood Status: Acute (7) Symptomatic anemia Status: Acute - Assessment and Plan (Free Text) Assessment: IMPRESSION; . URINARY RETENTION/ HEMATURIA WITH BILATERAL HYDRONEPHROSIS. . CYSTITIS. . BENIGN PROSTATIC HYPERTROPHY S/P CYSTOGRAM/CYSTOSCOPY 07/11/17. . RENAL FAILURE IMPROVING . CARDIOMYOPATHY ?UNCLEAR ETIOLOGY. . MARKED CACHEXIA/WEIGHT LOSS ? MALIGNANCY. . HEPATITIS C -ANTIBODY-POSITIVE.(HEP C RNA QUANTITATIVE LEVELS UNDETECTABLE ) . SYMPTOMATIC ANEMIA. . B/L PLEURAL EFFUSIONS/ANASARCA. . HX CONSTIPATION PLAN; ON iv CEFTRIAXONE 1 G EVERY 24 HOURLY .07/12/17.-DAY 5 X 2DAYS MORE 25-HYDROXY VITAMIN D - LEVELS LOW. WE DISCUSSED WITH RENAL IF OKAY TO GIVE VITAMIN D 50,000 UNITS WEEKLY X3 3 MONTHS PATIENT ON fLOMAX 0.4 MG ONCE A DAY. Mitchell IN PLACE REINSERTED 07/16/17. aS PER DR HARRISON. ?TURP .
--- NOTE | 2017-07-16 19:15 | CP.PCM.PN ---
Subjective - Date & Time of Evaluation Date of Evaluation: 07/16/17 Time of Evaluation: 19:15 - Subjective Subjective: pt is seen and examined, follow up consult is dictated #[id number] Objective - Vital Signs/Intake and Output Vital Signs (last 24 hours): Temp Pulse Resp BP Pulse Ox 97.3 F L 93 H 20 97/58 L 96 07/16/17 15:15 07/16/17 15:15 07/16/17 15:15 07/16/17 15:15 07/16/17 15:15 Intake and Output: 07/16/17 07/17/17 18:59 06:59 Output Total 900 Balance -900 - Medications Medications: Current Medications Acetaminophen (Tylenol 325mg Tab) 325 mg PO Q6 PRN PRN Reason: Pain, moderate (4-7) Calcitriol (Rocaltrol) 0.25 mcg PO DAILY [facility] Last Admin: 07/16/17 09:02 Dose: 0.25 mcg Calcium Acetate (Phoslo) 667 mg PO TID [facility] Last Admin: 07/16/17 18:13 Dose: 667 mg Epoetin Pepe (Procrit) 10,000 unit SC QWK [facility] Last Admin: 07/10/17 10:39 Dose: 10,000 unit Epoetin Pepe (Procrit) 10,000 unit SC QWK [facility] Last Admin: 07/14/17 10:32 Dose: 10,000 unit Ceftriaxone Sodium 1 gm/ (Sodium Chloride) 100 mls @ 100 mls/hr IVPB DAILY [facility] Last Admin: 07/16/17 09:00 Dose: 100 mls/hr Sodium Chloride (Sodium Chloride 0.45%) 1,000 mls @ 60 mls/hr IV .[id number] [facility] Stop: 07/18/17 18:00 Last Admin: 07/16/17 18:18 Dose: Not Given Pantoprazole Sodium (Protonix Ec Tab) 20 mg PO DAILY [facility] Last Admin: 07/16/17 09:02 Dose: 20 mg Sodium Bicarbonate (Sodium Bicarbonate Tab) 650 mg PO Q8H [facility] Last Admin: 07/16/17 13:30 Dose: 650 mg Tamsulosin HCl (Flomax) 0.4 mg PO BID [facility] Last Admin: 07/16/17 18:13 Dose: 0.4 mg Vitamin B Complex/Vit C/Folic Acid (Nephro-Aleksandra) 1 tab PO DAILY [facility] Last Admin: 07/16/17 09:02 Dose: 1 tab - Labs Labs: 07/15/17 07:04 07/15/17 07:04
--- NOTE | 2017-07-17 00:10 | PN ---
FOLLOWUP RENAL CONSULTATION DATE: LOCATION: The patient is located in room 654. REQUESTED BY: Akhil Wang MD REASON FOR FOLLOWUP: Chronic kidney disease, anemia, and for further evaluation. SUBJECTIVE: Mr. Palmer is a 77 years old, elderly, male with past medical history significant for cardiomyopathy, renal failure, obstructive uropathy, BPH, bilateral hydroureteronephrosis, anemia with increased BUN and creatinine more than 150/10, was admitted about six weeks ago, and found to have a bladder outlet obstruction. Subsequently, a Beck catheter was placed during that admission and since then the patient is Beck catheter dependent. Beck catheter was removed this morning and voiding trial was observed. The patient was not able to void after the removal of the Beck catheter and the Beck catheter was reinserted this afternoon and drained about 900 mL of urine. The patient is feeling better, not in acute distress and denies any complaints. Denies any chest pain and palpitations. Denies any fever. No cough. No abdominal pain. Status post cystoscopy last week consistent with BPH and cystitis. The patient is resting comfortably. No complaints this evening. PHYSICAL EXAMINATION: VITAL SIGNS: His blood pressure 97/68, pulse 93, respirations 20, temperature 97.3, and saturation 96%. Height 5 feet 5 inches and weight is 96 pounds. GENERAL: Mr. Palmer is a 77 years old, elderly, very cachectic, malnourished, male not in distress. HEENT: Pupils are normal and reactive to light and accommodation. Conjunctivae are pink. Sclerae are anicteric. Tongue is moist. Trachea is midline. LUNGS: Symmetric on both sides. Bilateral breath sounds present and clear on auscultation. CARDIOVASCULAR SYSTEM: [place] at the sixth intercostal space, midclavicular line. S1 and S2 audible. No murmur or gallop. ABDOMEN: Normal in appearance. Soft and tympanic. No guarding. No hepatosplenomegaly. CENTRAL NERVOUS SYSTEM: The patient is alert, awake, and oriented x3. Nonfocal neuro examination. Cranial nerves II through XII grossly intact. Sensory and motor system is within normal limits. EXTREMITIES: No cyanosis, no clubbing, and no edema. MEDICATIONS: His current medications include as follows: Rocephin 1 g daily, Flomax 0.4 mg p.o. b.i.d., Nephro-Aleksandra 1 tablet daily, PhosLo 667 mg p.o. t.i.d., Epogen 10,000 subcutaneous weekly, Protonix 20 mg p.o. daily, Rocaltrol 0.25 mcg daily, sodium bicarbonate 650 q. 8 hours, IV fluids half normal saline at 60 mL per hours, and Tylenol. LABORATORY DATA: Include as follows: As of 07/15/2017, WBC 6.4, hemoglobin 9.1, hematocrit 27.2, and platelet 267. Potassium 4.9, BUN 74, and creatinine 3.3. ASSESSMENT AND PLAN: In summary, Mr. Palmer is a 77 years old, elderly, very cachectic, malnourished, male with cardiomyopathy, obstructive uropathy, bladder outlet obstruction, anemia, and renal failure with gradual improvement of the renal function from BUN and creatinine 150/10 about six weeks ago with multiple urinary tract infections. 1. Acute renal failure and chronic kidney disease. Renal function is slowly improving with the Beck catheter secondary to obstructive uropathy secondary to benign prostatic hypertrophy. 2. Anemia secondary to renal failure, cannot rule out multiple myeloma. 3. Secondary hyperparathyroidism. 4. Cardiomyopathy. 5. Urinary tract infection. Continue Rocephin and Dr. Rajwinder Richardson and continue his current medications, Nephro-Aleksandra, Procrit, sodium bicarbonate, and Calcitriol. Continue Flomax 0.4 mg twice a day and follow with the urologist for further recommendation. Repeat CBC and BMP in the a.m. Thank you for allowing me to participate in your patient's care. Ruthann Duarte MD [facility] # [id number]
[2017-07-17] MEDS: Sodium Chloride 0.45% 1,000 ML IV SCH ×2 (04:48→13:17)
[2017-07-17 06:29] LABS: BASO % 0.6 % (0.0-2.0); EOS # 0.4 K/uL (0.0-0.7); EOS % 4.7 % (0.0-4.0); HEMATOCRIT 26.9 % (35.0-51.0); LYMPH # 1.6 K/uL (1.0-4.3); LYMPH % 20.8 % (20.0-40.0); MEAN CELL VOLUME 99.3 fL (80.0-94.0); MEAN CORPUSCULAR HEMOGLOBIN 32.9 pg (27.0-31.0); MEAN CORPUSCULAR HGB CONC 33.1 g/dL (33.0-37.0); MEAN PLATELET VOLUME 7.8 fL (7.2-11.7); MONO # 0.5 K/uL (0.0-0.8); MONO % 7.1 % (0.0-10.0); RED CELL DISTRIBUTION WIDTH 19.3 % (11.5-14.5); WHITE BLOOD COUNT 7.5 K/uL (4.8-10.8)
[2017-07-17 08:28] LABS: RBC URINE 8 /hpf (0-3); URINE BILIRUBIN NEGATIVE (NEGATIVE); URINE BLOOD 2+ (NEGATIVE); URINE COLOR Yellow (YELLOW); URINE GLUCOSE (UA) NORMAL (Normal); URINE KETONE NEGATIVE (NEGATIVE); URINE LEUKOCYTE ESTERASE 3+ Leu/uL (Negative); URINE PROTEIN 1+ mg/dL (NEGATIVE); URINE UROBILINOGEN NORMAL mg/dL (0.2-1.0); WBC URINE 33 /hpf (0-5)
[2017-07-17 08:37] VITALS: BP 94/62; PULSE 95; TEMP 97.8; O2SAT 97
[2017-07-17] MEDS: EPOETIN ALFA 10,000 UNIT/ML ML SC SCH (09:14)
[2017-07-17] MEDS: Multivitamin Vitamin B Complex (Nephro-Vite) Tab PO SCH (09:14)
[2017-07-17] MEDS: Pantoprazole 20 mg EC Tab PO SCH (09:14)
--- NOTE | 2017-07-17 10:09 | PCM.URO ---
Urology Progress Note - General General: No Complaints, Tolerating Diet - Subjective Abdominal Pain: No Flank Pain: No Nausea: No Vomiting: No Voiding Well: No Hematuria: No Chest Pain: No Fever & Chills: No Other: catheter removed this am for trial of voiding. Pt has not voided yet, 7 hrs after cath removal - Objective Lab Studies: Reviewed Lab Results Last 24 Hours: Laboratory Results - last 24 hr 07/17/17 07/17/17 07/17/17 06:01 06:01 07:44 WBC 7.5 RBC 2.71 L Hgb 8.9 L Hct 26.9 L MCV 99.3 H MCH 32.9 H MCHC 33.1 RDW 19.3 H Plt Count 251 MPV 7.8 Neut % (Auto) 66.8 Lymph % (Auto) 20.8 [place] % (Auto) 7.1 Eos % (Auto) 4.7 H Baso % (Auto) 0.6 Neut # 5.0 Lymph # 1.6 [place] # 0.5 Eos # 0.4 Baso # 0.0 Phosphorus 4.6 H Urine Color Yellow Urine Clarity Clear Urine pH 7.0 Ur Specific [place] 1.009 Urine Protein 1+ H Urine Glucose (UA) Normal Urine Ketones Negative Urine Blood 2+ H Urine Nitrate Negative Urine Bilirubin Negative Urine Urobilinogen Normal Ur Leukocyte Esterase 3+ H Urine WBC (Auto) 33 H Urine RBC (Auto) 8 H Ur Squamous Epith Cells < 1 Intake & Output: Intake & Output 07/16/17 07/17/17 07/17/17 18:59 06:59 18:59 Intake Total 840 480 Output Total 900 1800 Balance -900 -960 480 Intake: Intake, IV Amount 480 480 Left Forearm 480 480 Oral 360 Output: Urine 900 1800 Urethral ([place]) 900 1800 Other: # Bowel Movements 1 0 Vital Signs: Vital Signs - 24 hr 07/16/17 07/16/17 07/17/17 15:15 23:15 04:00 Temperature 97.3 F L 97.8 F 97.6 F Pulse Rate 93 H 97 H 93 H Respiratory 20 20 20 Rate Blood Pressure 97/58 L 99/60 L 103/62 O2 Sat by Pulse 96 96 95 Oximetry 07/17/17 07:40 Temperature 97.8 F Pulse Rate 95 H Respiratory 20 Rate Blood Pressure 94/62 L O2 Sat by Pulse 97 Oximetry - Physical Exam Abdominal Exam: Soft, Non-Tender. absent: Non-Distended (mild bladder distention to percussion.) Bowel Sounds: Normal Genitalia: Without Inflammation - Male Phallus: Normal - Plan See Orders: Yes Additional Information: Imp: stable p cysto. Hx of retention, obstructive uropathy. 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 Rec/plan: on tamsulosin bid. encourqge pt to void. bladder scan. sanon cath insertion if unable to void - Date & Time of Note Date: 07/16/17 Time: 13:30
--- NOTE | 2017-07-17 11:25 | CP.PCM.PN ---
Subjective - Date & Time of Evaluation Date of Evaluation: 07/17/17 Time of Evaluation: 11:25 - Subjective Subjective: pt is seen and examined, follow up consult is dictated #[id number] Objective - Vital Signs/Intake and Output Vital Signs (last 24 hours): Temp Pulse Resp BP Pulse Ox 97.8 F 95 H 20 94/62 L 97 07/17/17 07:40 07/17/17 07:40 07/17/17 07:40 07/17/17 07:40 07/17/17 07:40 Intake and Output: 07/17/17 07/17/17 06:59 18:59 Intake Total 840 480 Output Total 1800 Balance -960 480 - Medications Medications: Current Medications Acetaminophen (Tylenol 325mg Tab) 325 mg PO Q6 PRN PRN Reason: Pain, moderate (4-7) Calcitriol (Rocaltrol) 0.25 mcg PO DAILY [facility] Last Admin: 07/17/17 09:14 Dose: 0.25 mcg Calcium Acetate (Phoslo) 667 mg PO TID [facility] Last Admin: 07/17/17 09:14 Dose: 667 mg Epoetin Pepe (Procrit) 10,000 unit SC QWK [facility] Last Admin: 07/17/17 09:14 Dose: 10,000 unit Epoetin Pepe (Procrit) 10,000 unit SC QWK [facility] Last Admin: 07/14/17 10:32 Dose: 10,000 unit Ceftriaxone Sodium 1 gm/ (Sodium Chloride) 100 mls @ 100 mls/hr IVPB DAILY [facility] Last Admin: 07/17/17 09:15 Dose: 100 mls/hr Sodium Chloride (Sodium Chloride 0.45%) 1,000 mls @ 60 mls/hr IV .[id number] [facility] Stop: 07/18/17 18:00 Last Admin: 07/17/17 04:48 Dose: 60 mls/hr Pantoprazole Sodium (Protonix Ec Tab) 20 mg PO DAILY [facility] Last Admin: 07/17/17 09:14 Dose: 20 mg Sodium Bicarbonate (Sodium Bicarbonate Tab) 650 mg PO Q8H [facility] Last Admin: 07/17/17 04:47 Dose: 650 mg Tamsulosin HCl (Flomax) 0.4 mg PO BID [facility] Last Admin: 07/17/17 09:14 Dose: 0.4 mg Vitamin B Complex/Vit C/Folic Acid (Nephro-Aleksandra) 1 tab PO DAILY [facility] Last Admin: 07/17/17 09:14 Dose: 1 tab - Labs Labs: 07/17/17 06:01 07/15/17 07:04
--- NOTE | 2017-07-17 13:42 | CP.PCM.DIS ---
Provider - Provider Date of Admission: 07/09/17 03:04 Attending physician: Akhil Wang MD Time Spent in preparation of Discharge (in minutes): 30 Hospital Course - Lab Results Lab Results: Micro Results 07/12/17 13:35 Blood-Venous Blood Culture - Preliminary NO GROWTH AFTER 4 DAYS 07/12/17 13:35 Blood-Venous Blood Culture - Preliminary NO GROWTH AFTER 4 DAYS 07/12/17 14:50 Urine,Beck Urine Culture - Final No Growth (<1,000 CFU/ML) 07/10/17 11:10 Urine,Random Urine Culture - Final Escherichia Coli Coagulase Neg Staphylococcus 07/09/17 22:52 Urine,Beck Urine Culture - Final No Growth (<1,000 CFU/ML) 07/08/17 21:03 Urine Urine Culture - Final No Growth (<1,000 CFU/ML) Most Recent Lab Values WBC 7.5 K/uL (4.8-10.8) 07/17/17 06:01 RBC 2.71 Mil/uL (4.40-5.90) L 07/17/17 06:01 Hgb 8.9 g/dL (12.0-18.0) L 07/17/17 06:01 Hct 26.9 % (35.0-51.0) L 07/17/17 06:01 MCV 99.3 fL (80.0-94.0) H 07/17/17 06:01 MCH 32.9 pg (27.0-31.0) H 07/17/17 06:01 MCHC 33.1 g/dL (33.0-37.0) 07/17/17 06:01 RDW 19.3 % (11.5-14.5) H 07/17/17 06:01 Plt Count 251 K/uL (130-400) 07/17/17 06:01 MPV 7.8 fL (7.2-11.7) 07/17/17 06:01 Neut % (Auto) 66.8 % (50.0-75.0) 07/17/17 06:01 Lymph % (Auto) 20.8 % (20.0-40.0) 07/17/17 06:01 [place] % (Auto) 7.1 % (0.0-10.0) 07/17/17 06:01 Eos % (Auto) 4.7 % (0.0-4.0) H 07/17/17 06:01 Baso % (Auto) 0.6 % (0.0-2.0) 07/17/17 06:01 Neut # 5.0 K/uL (1.8-7.0) 07/17/17 06:01 Lymph # 1.6 K/uL (1.0-4.3) 07/17/17 06:01 [place] # 0.5 K/uL (0.0-0.8) 07/17/17 06:01 Eos # 0.4 K/uL (0.0-0.7) 07/17/17 06:01 Baso # 0.0 K/uL (0.0-0.2) 07/17/17 06:01 ESR 54 mm/hr (0-15) H 07/13/17 08:42 Sodium 133 mmol/L (132-148) 07/15/17 07:04 Potassium 4.9 mmol/L (3.6-5.2) 07/15/17 07:04 Chloride 103 mmol/L (98-107) 07/15/17 07:04 Carbon Dioxide 21 mmol/L (22-30) L 07/15/17 07:04 Anion Gap 14 (10-20) 07/15/17 07:04 BUN 74 mg/dL (9-20) H 07/15/17 07:04 Creatinine 3.3 MG/DL (0.8-1.5) H 07/15/17 07:04 Est GFR ( Amer) 22 07/15/17 07:04 Est GFR (Non-Af Amer) 18 07/15/17 07:04 Random Glucose 71 mg/dL (75-110) L 07/15/17 07:04 Calcium 7.9 mg/dl (8.6-10.4) L 07/15/17 07:04 Phosphorus 4.6 mg/dL (2.5-4.5) H 07/17/17 06:01 Iron 23 ug/dL (49-181) L 07/10/17 07:51 TIBC 215 ug/dL (250-450) L 07/10/17 07:51 % Saturation 11 (20-55) L 07/10/17 07:51 Ferritin 213.0 ng/mL 07/10/17 07:51 Total Bilirubin 0.5 mg/dL (0.2-1.3) 07/13/17 08:00 AST 21 U/L (17-59) 07/13/17 08:00 ALT 30 U/L (21-72) 07/13/17 08:00 Alkaline Phosphatase 92 U/L (38-126) 07/13/17 08:00 C-React Prot High Sens 6.84 mg/L (1.00-3.00) H 07/13/17 08:00 Total Protein 6.7 g/dL (6.3-8.3) 07/13/17 08:00 Albumin 2.6 g/dL (3.5-5.0) L 07/13/17 08:00 Globulin 4.1 gm/dL (2.2-3.9) H 07/13/17 08:00 Albumin/Globulin Ratio 0.6 (1.0-2.1) L 07/13/17 08:00 Lipase 499 U/L (23-300) H 07/08/17 21:18 Free PSA 1.8 ng/mL 07/10/17 14:08 % Free PSA 42 Percent (>25) 07/10/17 14:08 Total PSA 4.3 ng/mL (<=4.0) H 07/10/17 14:08 Prostate Cancer Risk 8 Percent 07/10/17 14:08 25-OH Vitamin D Total < 12.8 NG/ML (30.0-100.0) L 07/13/17 08:00 TSH 3rd Generation 2.19 mIU/L (0.46-4.68) 07/13/17 08:00 Calcium (PTH Intact) 8.0 mg/dL (8.6-10.3) L 07/10/17 07:51 PTH w/Ion &Tot Calcium 100 pg/mL (14-64) H 07/10/17 07:51 Urine Color Yellow (YELLOW) 07/17/17 07:44 Urine Clarity Clear (Clear) 07/17/17 07:44 Urine pH 7.0 (5.0-8.0) 07/17/17 07:44 Ur Specific [place] 1.009 (1.003-1.030) 07/17/17 07:44 Urine Protein 1+ mg/dL (NEGATIVE) H 07/17/17 07:44 Urine Glucose (UA) Normal mg/dL (Normal) 07/17/17 07:44 Urine Ketones Negative mg/dL (NEGATIVE) 07/17/17 07:44 Urine Blood 2+ (NEGATIVE) H 07/17/17 07:44 Urine Nitrate Negative (NEGATIVE) 07/17/17 07:44 Urine Bilirubin Negative (NEGATIVE) 07/17/17 07:44 Urine Urobilinogen Normal mg/dL (0.2-1.0) 07/17/17 07:44 Ur Leukocyte Esterase 3+ [place]/uL (Negative) H 07/17/17 07:44 Urine WBC (Auto) 33 /hpf (0-5) H 07/17/17 07:44 Urine RBC (Auto) 8 /hpf (0-3) H 07/17/17 07:44 Urine WBC Clumps (Auto) Few /hpf (NONE) H 07/10/17 13:16 Ur Squamous Epith Cells < 1 /hpf (0-5) 07/17/17 07:44 Urine Bacteria Occ (<OCC) H 07/08/17 22:16 - Hospital Course Hospital Course: SEE D/C NOTE OF 07/16 Discharge Exam - Head Exam Head Exam: NORMAL INSPECTION Discharge Plan - Follow Up Plan Condition: STABLE Disposition: HOME/ ROUTINE Instructions: Cystoscopy (DC), Renal Failure Diet (DC), Beck Catheter Placement and Care (DC), Acute Hematuria (DC)
--- NOTE | 2017-07-18 09:23 | PN ---
DATE: FOLLOWUP RENAL CONSULTATION LOCATION: The patient is located in room 654. REQUESTED BY: Akhil Wang MD REASON FOR FOLLOWUP: Chronic kidney disease, cardiomyopathy, anemia, secondary hyperparathyroidism, and for further evaluation. SUBJECTIVE: Mr. 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 The patient has a Beck catheter since then and the patient is not in acute distress. The patient is being treated for UTI. The patient also underwent cystoscopy last week and found to have a BPH with a mild hydronephrosis and cystitis. The patient failed on voiding trail and the Beck catheter was reinserted yesterday afternoon. The patient has a good urine output. Denies any chest pain, palpitations. Denies any fever, cough. No abdominal pain. No nausea, vomiting or diarrhea. PHYSICAL EXAMINATION VITAL SIGNS: This morning as follows; blood pressure 94/62, pulse 95, respirations 20, temperature 97.8, and saturation 97%. Height 5 feet 5 inches and weight is 96 pounds. GENERAL: On physical exam, Mr. 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 HEENT: Pupils are normal and reactive to light and accommodation. Conjunctivae pink. Sclerae anicteric. Tongue is moist. Trachea is midline. LUNGS: Symmetric on both sides. Bilateral breath sounds present. Clear on auscultation. CARDIOVASCULAR SYSTEM: [place] at the fifth intercostal space, midclavicular line. S1 and S2 audible. No murmur, no gallop. ABDOMEN: Normal in appearance. Soft, tympanic. No guarding. No rigidity. No hepatosplenomegaly. CENTRAL NERVOUS SYSTEM: The patient is alert, awake, oriented x3. Nonfocal neuro examination. Cranial nerves II through XII grossly intact. Sensory and motor system is within normal limits. EXTREMITIES: No cyanosis, no clubbing, no edema. CURRENT MEDICATIONS: Include as follows; Nephro-Aleksandra 1 tablet daily, Flomax 0.4 mg p.o. b.i.d., Maalox 30 mL p.o. q. 4 hours and sodium bicarb 650 mg q. 8 hours, Protonix 20 mg p.o. daily, milk of magnesia p.r.n. and calcium acetate 667 mg p.o. t.i.d., Tylenol and Epogen 10,000 units subcutaneous q. weekly. LABORATORY DATA: Includes as follows; as of 07/17/2017, WBC is 7.5, hemoglobin 8.9, hematocrit is 26.9, platelets 251 and phosphorus is 4.6. Urinalysis; yellow, clear. Specific gravity 1.009, protein 1+ and glucose normal. Ketones, negative, blood is 2+, nitrites negative, bilirubin negative, urobilinogen normal, leukocytosis 3+ and wbc 33, rbc 8, squamous epithelial cells 1. ASSESSMENT AND PLAN: In summary, Mr. Palmer is a 77-year-old, elderly, thin built, very cachectic male with anemia,cardiomyopathy, obstructive uropathy, bilateral hydroureter nephrosis and benign prostatic hypertrophy status post Beck catheter placement for the last 5 to 6 weeks and also being treated for urinary tract infection with gradual improvement of renal function. 1. Renal failure, chronic kidney disease stage IV. His renal function gradually improving for the last 6 weeks. This is a lowest so far the creatine 3.3 since he was admitted about 6 weeks. Continue to monitor his BMP. Continue gentle IV hydration. 2. Anemia secondary to renal failure, secondary to multiple myeloma. 3. Secondary hyperparathyroidism. 4. Cardiomyopathy. 5. Obstructive uropathy secondary to benign prostatic hypertrophy. Continue Beck catheter and continue Flomax and follow with urology as an outpatient. No need for hemodialysis. At this time, continue to monitor electrolytes and low sodium, low-potassium diet. 6. Urinary tract infection. Continue IV antibiotics as per Dr. Rajwinder Richardson. Thank you for allowing me to participate in your patient's care. The patient is being discharged back to alf for the rehab. Ruthann Duarte MD [facility] # [id number]
--- NOTE | 2017-07-18 23:28 | PCM.URO ---
Urology Progress Note - General General: No Complaints, Tolerating Diet - Subjective Abdominal Pain: No Flank Pain: No Nausea: No Vomiting: No Voiding Well: No (retention. Catheter re-inserted last PM for retention.) Hematuria: No Dsypnea: No Chest Pain: No Fever & Chills: No Other: Pt reports that he feels stronger overall. - Objective Lab Studies: Reviewed - Physical Exam Abdominal Exam: Soft, Non-Tender, Non-Distended Back: No CVA Tenderness Genitalia: Without Inflammation Urinary Catheter Draining Well: Yes Urine Color: Clear, Yellow - Plan Catheter Care: Yes Additional Information: Imp: urinary retention, failed trial of voiding. BPH. Prob detrusor hypofunction. Renal failure. Heart failure, low EF. rec/p: sanon cath in place. Pt to go to rehab. Further rx t/f. YS - Date & Time of Note Date: 07/17/17 Time: 10:50
== END 2017-07-17 14:50 | DRG 683 ==
LOC: C.ER 20:17 → C.9E 07-09 03:04 → C.6T 07-09 13:40
PROVIDERS: ADMIT Internal Medicine Cardiovascular Disease; ATTEND Internal Medicine Cardiovascular Disease
PROC: 0TJB8ZZ Inspection of Bladder, Via Natural or Artificial Opening Endoscopic (ICD-10-PCS; 2017-07-11)
PROC: BT10YZZ Fluoroscopy of Bladder using Other Contrast (ICD-10-PCS; principal; 2017-07-11 09:00)
DX: N17.9 Acute kidney failure, unspecified (principal); I42.9 Cardiomyopathy, unspecified; R64 Cachexia; E87.2 Acidosis; J90 Pleural effusion, not elsewhere classified; E46 Unspecified protein-calorie malnutrition; C90.00 Multiple myeloma not having achieved remission; N13.8 Other obstructive and reflux uropathy; E87.5 Hyperkalemia; N30.91 Cystitis, unspecified with hematuria; D63.1 Anemia in chronic kidney disease; N13.30 Unspecified hydronephrosis; N40.1 Benign prostatic hyperplasia with lower urinary tract symptoms; K21.9 Gastro-esophageal reflux disease without esophagitis; R33.8 Other retention of urine; N18.5 Chronic kidney disease, stage 5; B96.20 Unspecified Escherichia coli [E. coli] as the cause of diseases classified elsewhere; B19.20 Unspecified viral hepatitis C without hepatic coma

== ENCOUNTER 2017-08-15 11:42 | Emergency (ER) | payer MEDICARE ==
[2017-08-15 11:42] VITALS: BMI 16.6
[2017-08-15 11:59] VITALS: RESP 20; O2SAT 99
--- NOTE | 2017-08-15 13:21 | C.PDOC ---
History Of Present Illness 77 y/o male is referred by Dr. Britany Varela for evaluation s/p recent sanon placement for urinary retention, hydronephrosis and renal failure. . Patient was evaluated here a month ago for renal failure due to an obstruction in the urinary outlet, now in rehab. Patient states he lost a lot of weigh, became very wek, not able to stand. . Patient has no medical complaints at this time. . Denies abdominal pain, dysuria, fever, or chills. No nausea or vomiting. Time Seen by Provider: 08/15/17 12:37 Chief Complaint (Nursing): Male Genitourinary History Per: Patient History/Exam Limitations: no limitations Onset/Duration Of Symptoms: Days Current Symptoms Are (Timing): Still Present Severity: Mild Associated Symptoms: denies: Fever, Chills Recent travel outside of the [place]: No Additional History Per: Patient Past Medical History Reviewed: Historical Data, Nursing Documentation, Vital Signs Vital Signs: Last Vital Signs Temp 97.3 F L 08/15/17 11:58 Pulse 91 H 08/15/17 11:58 Resp 20 08/15/17 11:58 BP 127/69 08/15/17 11:58 Pulse Ox 99 08/15/17 13:23 - Medical History PMH: Anemia - [facility] Procedures DRAINAGE OF RIGHT PLEURAL CAVITY, PERCUTANEOUS APPROACH (06/09/17) FLUOROSCOPY OF BLADDER USING OTHER CONTRAST (07/09/17) INSPECTION OF BLADDER, ENDO (07/09/17) TRANSFUSE NONAUT RED BLOOD CELLS IN PERIPH VEIN, PERC (06/09/17) Family History: States: Unknown Family Hx - Social History Hx Alcohol Use: No Hx Substance Use: No - Immunization History Hx Tetanus Toxoid Vaccination: No Hx Influenza Vaccination: No Hx Pneumococcal Vaccination: No Review Of Systems Except As Marked, All Systems Reviewed And Found Negative. Constitutional: Negative for: Fever, Chills Gastrointestinal: Negative for: Nausea, Vomiting, Abdominal Pain Genitourinary: Negative for: Dysuria Physical Exam - Physical Exam Appears: Non-toxic, No Acute Distress Skin: Warm, Dry Head: Atraumatic, Normacephalic Gastrointestinal/Abdominal: Soft, No Tenderness, No Distention, No Guarding Neurological/Psych: Oriented x3, Normal Speech, Normal Cognition ED Course And Treatment - Laboratory Results Result Diagrams: 08/15/17 13:21 08/15/17 13:21 O2 Sat by Pulse Oximetry: 99 (RA) Pulse Ox Interpretation: Normal Medical Decision Making Medical Decision Making: Plans: * Blood labs * UA * IV fluids Sanon removed. Dr. Varela at the bed side. Plan to d/c. He will f/u as needed. Disposition Discussed With : Britany Varela Counseled Patient/Family Regarding: Studies Performed, Diagnosis, Need For Followup - Disposition Referrals: Britany Varela MD [Staff Provider] - Disposition: HOME/ ROUTINE Disposition Time: 15:47 Condition: STABLE Additional Instructions: Any other concerns, contact Dr. Magana in the Emergency Department [phone] Instructions: Urinary Retention in Men (ED) Forms: [facility] (Libyan), General Discharge Instructions - Clinical Impression Clinical Impression: Renal insufficiency, mild - Scribe Statement The provider has reviewed the documentation as recorded by the Scribe [place] wild All medical record entries made by the Scribe were at my direction and personally dictated by me. I have reviewed the chart and agree that the record accurately reflects my personal performance of the history, physical exam, medical decision making, and the department course for this patient. I have also personally directed, reviewed, and agree with the discharge instructions and disposition.
[2017-08-15 13:25] LABS: BASO % 0.7 % (0.0-2.0); EOS # 0.3 K/uL (0.0-0.7); EOS % 3.9 % (0.0-4.0); HEMATOCRIT 31.4 % (35.0-51.0); LYMPH % 26.8 % (20.0-40.0); MEAN CELL VOLUME 100.9 fL (80.0-94.0); MEAN CORPUSCULAR HGB CONC 31.7 g/dL (33.0-37.0); MEAN PLATELET VOLUME 7.4 fL (7.2-11.7); MONO # 0.5 K/uL (0.0-0.8); NRBC % 0.2 % (0.0-2.0); RED CELL DISTRIBUTION WIDTH 17.9 % (11.5-14.5); WHITE BLOOD COUNT 7.3 K/uL (4.8-10.8)
[2017-08-15 14:08] LABS: ALB/GLOB RATIO 0.7 (1.0-2.1); BILIRUBIN,TOTAL 0.4 mg/dL (0.2-1.3); TOTAL PROTEIN 8.7 g/dL (6.3-8.3)
[2017-08-15 14:09] LABS: CALCIUM 8.6 mg/dl (8.6-10.4)
[2017-08-15 14:12] LABS: POTASSIUM 5.6 mmol/L (3.6-5.2)
[2017-08-15 16:19] VITALS: BP 128/79; PULSE 93; TEMP 97.2
== END 2017-08-15 18:02 | disposition home or self-care (01) ==
LOC: C.ER 11:42
DX: N28.9 Disorder of kidney and ureter, unspecified (principal)

== ENCOUNTER 2017-09-24 12:39 | Inpatient (IN) | payer MEDICARE ==
[2017-09-24 12:39] VITALS: BMI 16.6
[2017-09-24] MEDS ORDERED: Sodium Chloride 0.9% 500 ML IV ONE ×2 (13:53→15:21)
[2017-09-24 14:12] LABS: BASO % 0.4 % (0.0-2.0); EOS % 0.1 % (0.0-4.0); HEMOGLOBIN 10.6 g/dL (12.0-18.0); LYMPH # 0.4 K/uL (1.0-4.3); LYMPH % 4.3 % (20.0-40.0); MEAN CELL VOLUME 97.1 fL (80.0-94.0); MEAN CORPUSCULAR HGB CONC 30.9 g/dL (33.0-37.0); MEAN PLATELET VOLUME 8.6 fL (7.2-11.7); MONO # 0.7 K/uL (0.0-0.8); MONO % 7.5 % (0.0-10.0); NEUT # 8.8 K/uL (1.8-7.0); NEUT % 87.7 % (50.0-75.0); NRBC % 0.3 % (0.0-2.0); PLATELET COUNT 200 K/uL (130-400); RBC 3.53 Mil/uL (4.40-5.90); RED CELL DISTRIBUTION WIDTH 17.5 % (11.5-14.5)
--- NOTE | 2017-09-24 14:20 | RAD ---
HISTORY: Renal failure COMPARISON: 06/20/2017 FINDINGS: LUNGS: There are ill-defined opacities at both lung bases. These may be due, at least in part, to dependent pleural fluid. PLEURA: Small bilateral pleural effusion. No pneumothorax. CARDIOVASCULAR: Normal. OSSEOUS STRUCTURES: No significant abnormalities. VISUALIZED UPPER ABDOMEN: Normal. OTHER FINDINGS: None. IMPRESSION: Bilateral small pleural effusion with ill-defined opacities at both lung bases.
[2017-09-24 14:51] LABS: ANISOCYTOSIS SLIGHT; HYPOCHROMIC SLIGHT; LYMPHOCYTE 5 % (20-40); MONOCYTE 2 % (0-10); NEUTROPHIL 93 % (50-75); PLATELET ESTIMATE NORMAL (NORMAL); POLYCHROMIC SLIGHT; TOTAL CELLS COUNTED 100
[2017-09-24 15:09] LABS: ALB/GLOB RATIO 0.8 (1.0-2.1); ALBUMIN 3.8 g/dL (3.5-5.0); CALCIUM 7.8 mg/dl (8.6-10.4)
[2017-09-24] MEDS ORDERED: Sodium Bicarbonate (8.4%) 50 Meq Syringe IVP STA (15:15)
[2017-09-24] MEDS ORDERED: Sodium Bicarbonate (8.4%) 50 Meq Syringe ONE ×2 (15:21→17:05)
[2017-09-24 15:40] LABS: URINE BILIRUBIN NEGATIVE (NEGATIVE); URINE BLOOD 3+ (NEGATIVE); URINE CLARITY Hazy (Clear); URINE COLOR Yellow (YELLOW); URINE GLUCOSE (UA) NORMAL (Normal); URINE LEUKOCYTE ESTERASE 3+ Leu/uL (Negative); URINE NITRATE NEGATIVE (NEGATIVE); URINE PROTEIN 2+ mg/dL (NEGATIVE); URINE UROBILINOGEN NORMAL mg/dL (0.2-1.0)
[2017-09-24] MEDS ORDERED: cefTRIAXone IV 1 gm in Dextros 50 ML IVPB STA (15:42)
--- NOTE | 2017-09-24 16:33 | C.PDOC ---
History Of Present Illness Pt states that his Beck catheter has not been putting out much urine and c/o suprapubic pain for the past 2 days. Time Seen by Provider: 09/24/17 13:19 Chief Complaint (Nursing): Male Genitourinary History Per: Patient Onset/Duration Of Symptoms: Days (2) Current Symptoms Are (Timing): Still Present Severity: Moderate Quality Of Discomfort: "Pain" Associated Symptoms: Urinary Symptoms Alleviating Factors: None Additional History Per: Prior Records Past Medical History Reviewed: Historical Data, Nursing Documentation, Vital Signs Vital Signs: Last Vital Signs Temp 98.3 F 09/24/17 15:20 Pulse 108 H 09/24/17 15:20 Resp 18 09/24/17 15:20 BP 111/72 09/24/17 15:20 Pulse Ox 97 09/24/17 15:20 - Medical History PMH: Anemia, Benign Prostatic Hyperplasia, Chronic Kidney Disease Surgical History: No Surg Hx - [facility] Procedures DRAINAGE OF RIGHT PLEURAL CAVITY, PERCUTANEOUS APPROACH (06/09/17) FLUOROSCOPY OF BLADDER USING OTHER CONTRAST (07/09/17) INSPECTION OF BLADDER, ENDO (07/09/17) TRANSFUSE NONAUT RED BLOOD CELLS IN PERIPH VEIN, PERC (06/09/17) Family History: States: Unknown Family Hx - Social History Hx Alcohol Use: No Hx Substance Use: No - Immunization History Hx Tetanus Toxoid Vaccination: No Hx Influenza Vaccination: No Hx Pneumococcal Vaccination: No Review Of Systems Except As Marked, All Systems Reviewed And Found Negative. Constitutional: Negative for: Fever Cardiovascular: Negative for: Chest Pain Respiratory: Negative for: Shortness of Breath Gastrointestinal: Negative for: Vomiting, Diarrhea Genitourinary: Positive for: Other (Urinary retension). Negative for: Scrotal Pain Musculoskeletal: Negative for: Neck Pain, Back Pain Skin: Negative for: Rash Neurological: Negative for: Weakness, Numbness, Seizures Physical Exam - Physical Exam Appears: Chronically Ill Skin: Normal Color, Warm, Dry Head: Atraumatic, Normacephalic Eye(s): bilateral: PERRL, EOMI Neck: Normal ROM, Supple Cardiovascular: Rhythm Regular Respiratory: Normal Breath Sounds, No Accessory Muscle Use Gastrointestinal/Abdominal: Soft, Distention (of urinary bladder) Back: No CVA Tenderness Male Genital: No Scrotal Swelling, Other (Beck catheter in place but not draining urine. ) Extremity: Normal ROM, No Pedal Edema Neurological/Psych: Oriented x3, Normal Motor, Normal Sensation ED Course And Treatment - Laboratory Results Result Diagrams: 09/24/17 14:08 09/24/17 14:08 Lab Interpretation: Abnormal Interpretation Of Abnormal: Renal failure with acidosis and hyperkalemia. UTI, urine C&S sent. ECG: Interpreted By Me, Viewed By Me ECG Rhythm: Sinus Rhythm, Sinus Tachycardia, Nonspecific Changes Rate From EC O2 Sat by Pulse Oximetry: 97 Pulse Ox Interpretation: Normal - Radiology CXR: Viewed By Me, Read By Radiologist CXR Interpretation: Yes: Other (b/l pleural effusions) Progress Note: A new Beck catheter was placed by RN with return of 3L of cloudy urine. Progress - Interventions Interventions:: Observation, Intravenous fluid - Medications Administered Intravenous: Other (Sodium Bicarb., Abx.) - Data Reviewed Data Reviewed: Lab, Diagnostic imaging, EKG, Old records - Patient Status Patient status: Mostly improved - Critical Care Citical Care: Excluding Proc Time Critical Care Time: 45 minutes - Continuity of Care Discussed patient case with:: Patient, Family-HIPPA compliant, ED Nurse, On- call PMD-pt unassigned - Patient Plan Patient Plan: Admission, Telemetry Disposition Discussed With : Akhil Wang Comment: He accepted pt on his service. Doctor Will See Patient In The: Hospital Counseled Patient/Family Regarding: Studies Performed, Diagnosis - Disposition Disposition: HOSPITALIZED Disposition Time: 16:35 Condition: SERIOUS - Clinical Impression Clinical Impression: Renal failure, acute on chronic, Acute urinary retention, Obstructed Beck catheter
[2017-09-24] MEDS ORDERED: SODIUM BICARBONATE IV SCH (17:00)
[2017-09-24] MEDS ORDERED: SODIUM CHLORIDE 0.45% IV SCH (17:00)
--- NOTE | 2017-09-24 20:04 | CP.PCM.HP ---
History of Present Illness - History of Present Illness History of Present Illness: COMPREHENSIVE HISTORY & PHYSICAL EXAM HPI 72 years old male with a history of chronic renal failure. He uropathy secondary to hypertrophic prostate was recently discharged from rehabilitation center with the indwelling Sanon catheter. According to the patient the catheter blocked and patient was unable to pass urine. In the emergency room patient had a BUn 138 and creatinine of 8.1 K was normal. Patient is now admitted for further evaluation. Patient had a similar episode in the last admission and patient refuses renal dialysis the last creatinine was 4.8. 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 Patient also has intermittent CHF with pleural effusion which required pleural tap on the last admission PAST HIST. PERSONAL HIST: Smoking. N Alcohol. N Allergy N Travel_- . FAMILY HIST : ROS : Constitutional: Negative for weight change, chills, night sweats, , pos usage of assist device. Eyes: Negative for redness, swelling, itching, discharge, vision changes, blurry vision, double vision, glaucoma, cataracts, Ears: Negative for hearing loss, ringing, , tinnitus, vertigo Nose: Negative for rhinorrhea, stuffiness, sniffing, itching, postnasal drip, discoloration, nasal congestion and epistaxis. Throat: Negative for throat clearing, sore throat, hoarseness, difficulty swallowing and difficulty speaking. Respiratory: Negative for sputum or phlegm, chronic cough, hemoptysis, wheezing, snoring at night, pleuritic chest pain and daytime somnolence. Cardiovascular: Negative for chest pain, leg cramps, angina, claudication, , irregular heartbeat, Neurology: Negative for irritability, muscle weakness, numbness and tingling, seizures, tremors, migraines, slurred speech, syncope, memory loss, mood changes , recurrent headaches Gastrointestinal: Negative for difficulty swallowing, diarrhea, constipation, black stools, rectal bleeding, nausea, flatulence, reflux, poor appetite, changes in bowel habits, abdominal pain Genitourinary: POS urinary retention, frequent UTI, Psychiatric: Negative for depression, anxiety/panic, suicidal tendencies, Musculoskeletal: Negative for swollen joints, back pain, , neck pain, morning stiffness of joints, . Skin: Negative for rash, ulcers, itching, dry skin and pigmented lesions. P/E: Constitutional: Appears stated age and in no apparent distress. Head: Normocephalic. Ears: External ear canals patent without inflammation. Tympanic membranes intact with normal light reflex and landmark. Eyes: Pupils are central, bilaterally equal, symmetrical and reacts to light with normal movements and no icterus or pallor. Nose: External nares are patent. Mucosa is pink Mouth-Throat: Good general appearance and condition. No post-pharyngeal/oropharyngeal erythema and tonsillar hypertrophy. Good dental hygiene. Neck-Lymphatic: Neck is supple with normal ROM, no thyromegaly, lymph nodes or masses. JVD is normal with no carotid bruit. Lungs: Clear to percussion and auscultation with bilateral normal air entry. Cardiovascular: S1 and S2 are normal with no murmurs, gallops and rub. GI Exam: No hepatomegaly. Abdomen is soft and non-tender. No Organomegaly , masses or hernias are evident and bowel sounds are normal and active. Neurology: Higher function and all cranial nerves intact, with no gross motor or sensory deficit. Superficial and deep reflexes are normal with downwards planters. No cerebellar deficit with normal gait. Musculoskeletal: No tender spots with normal curvature of the spine with no swelling or restricted ROM of the small and large joints. Extremities: Homans sign absent. Intact pulses with pitting edema, calf tenderness or skin color changes. Skin: No rash, eruptions or abnormal skin pigmentation LAB/RADIOLOGY: ASSESMENT : Acute on chronic renal failure. Obstructive uropathy. Urinary tract infection. Cardiomyopathy. Plan See orders Present on Admission - Present on Admission Any Indicators Present on Admission: No Past Patient History - Past Medical History & Family History Past Medical History?: No - Past Social History Smoking Status: Never Smoked - CARDIAC Hx Cardiac Disorders: Yes Other/Comment: CARDIOMYOPATHY - RENAL Hx Chronic Kidney Disease: Yes - ENDOCRINE/METABOLIC Hx Endocrine Disorders: No - HEMATOLOGICAL/ONCOLOGICAL Hx Anemia: Yes - INTEGUMENTARY Hx Dermatological Problems: No - MUSCULOSKELETAL/RHEUMATOLOGICAL Hx Musculoskeletal Disorders: Yes Hx Falls: Yes - GASTROINTESTINAL Hx Gastrointestinal Disorders: Yes Hx Gastroesophageal Reflux: Yes Other/Comment:  - GENITOURINARY/GYNECOLOGICAL Hx Genitourinary Disorders: Yes Hx Prostate Problems: Yes Hx Urinary Tract Infection: Yes Other/Comment: hx utis-pt has indwelling sanon from [facility] - PSYCHIATRIC Hx Substance Use: No - SURGICAL HISTORY Hx Surgeries: No - ANESTHESIA Hx Anesthesia: No Hx Anesthesia Reactions: No Hx Malignant Hyperthermia: No Meds Home Medications: Home Medication List Medication Instructions Recorded Confirmed Type Acetaminophen [Tylenol 325mg tab] 650 mg PO Q4 PRN tab 10/12/17 Rx Amiodarone [Cordarone] 400 mg PO BID tab 10/12/17 Rx Calcitriol [Rocaltrol] 0.5 mcg PO DAILY sgl 10/12/17 Rx Calcium Acetate [Phoslo] 667 mg PO TIDCC tab 10/12/17 Rx Famotidine [Pepcid] 20 mg PO DAILY tab 10/12/17 Rx Gentamicin 100 mg IVPB MWF #2 vial 10/12/17 Rx Midodrine [Proamatine] 2.5 mg PO TID tab 10/12/17 Rx Tamsulosin [Flomax] 0.4 mg PO DAILY cap 10/12/17 Rx Vitamin B Complex/Vit C/Folic 1 tab PO DAILY tab 10/12/17 Rx [Nephro-Aleksandra] Allergies/Adverse Reactions: Allergies Allergy/AdvReac Type Severity Reaction Status Date / Time No Known Allergies Allergy Verified 09/24/17 12:54 Results - Vital Signs Recent Vital Signs: Last Vital Signs Temp 98.3 F 09/24/17 15:20 Pulse 108 H 09/24/17 15:20 Resp 18 09/24/17 15:20 BP 111/72 09/24/17 15:20 Pulse Ox 97 09/24/17 16:50 - Labs Result Diagrams: 10/21/17 06:52 10/21/17 06:51 Labs: Laboratory Results - last 24 hr 09/24/17 09/24/17 09/24/17 13:50 14:08 14:08 WBC 10.0 RBC 3.53 L Hgb 10.6 L Hct 34.3 L MCV 97.1 H D MCH 30.0 MCHC 30.9 L RDW 17.5 H Plt Count 200 D MPV 8.6 Neut % (Auto) 87.7 H Lymph % (Auto) 4.3 L [place] % (Auto) 7.5 Eos % (Auto) 0.1 Baso % (Auto) 0.4 Neut # 8.8 H Lymph # 0.4 L [place] # 0.7 Eos # 0.0 Baso # 0.0 Neutrophils % (Manual) 93 H Lymphocytes % (Manual) 5 L Monocytes % (Manual) 2 Platelet Estimate Normal Polychromasia Slight Hypochromasia (manual) Slight Anisocytosis (manual) Slight Sodium 146 Potassium 5.8 H Chloride 120 H Carbon Dioxide 8 L* D Anion Gap 24 H BUN 138 H* D Creatinine 8.0 H* D Est GFR ( Amer) 8 Est GFR (Non-Af Amer) 7 Random Glucose 114 H Calcium 7.8 L Total Bilirubin 0.7 AST 15 L D ALT 26 Alkaline Phosphatase 91 Total Protein 8.7 H Albumin 3.8 Globulin 4.9 H Albumin/Globulin Ratio 0.8 L Urine Color Urine Clarity Urine pH Ur Specific [place] Urine Protein Urine Glucose (UA) Urine Ketones Urine Blood Urine Nitrate Urine Bilirubin Urine Urobilinogen Ur Leukocyte Esterase Urine WBC (Auto) Urine RBC (Auto) Stool Occult Blood Negative 09/24/17 15:17 WBC RBC Hgb Hct MCV MCH MCHC RDW Plt Count MPV Neut % (Auto) Lymph % (Auto) [place] % (Auto) Eos % (Auto) Baso % (Auto) Neut # Lymph # [place] # Eos # Baso # Neutrophils % (Manual) Lymphocytes % (Manual) Monocytes % (Manual) Platelet Estimate Polychromasia Hypochromasia (manual) Anisocytosis (manual) Sodium Potassium Chloride Carbon Dioxide Anion Gap BUN Creatinine Est GFR ( Amer) Est GFR (Non-Af Amer) Random Glucose Calcium Total Bilirubin AST ALT Alkaline Phosphatase Total Protein Albumin Globulin Albumin/Globulin Ratio Urine Color Yellow Urine Clarity Hazy Urine pH 5.0 Ur Specific [place] 1.010 Urine Protein 2+ H Urine Glucose (UA) Normal Urine Ketones Negative Urine Blood 3+ H Urine Nitrate Negative Urine Bilirubin Negative Urine Urobilinogen Normal Ur Leukocyte Esterase 3+ H Urine WBC (Auto) 450 H Urine RBC (Auto) 7 H Stool Occult Blood
[2017-09-25 08:04] LABS: BASO % 0.4 % (0.0-2.0); EOS # 0.1 K/uL (0.0-0.7); EOS % 0.8 % (0.0-4.0); HEMOGLOBIN 9.3 g/dL (12.0-18.0); LYMPH # 0.6 K/uL (1.0-4.3); LYMPH % 7.7 % (20.0-40.0); MEAN CORPUSCULAR HEMOGLOBIN 30.1 pg (27.0-31.0); MEAN CORPUSCULAR HGB CONC 31.7 g/dL (33.0-37.0); MEAN PLATELET VOLUME 8.8 fL (7.2-11.7); MONO # 0.5 K/uL (0.0-0.8); MONO % 7.3 % (0.0-10.0); NEUT # 6.3 K/uL (1.8-7.0); NEUT % 83.8 % (50.0-75.0); NRBC % 0.3 % (0.0-2.0); PLATELET COUNT 176 K/uL (130-400); RBC 3.08 Mil/uL (4.40-5.90); RED CELL DISTRIBUTION WIDTH 17.1 % (11.5-14.5); WHITE BLOOD COUNT 7.5 K/uL (4.8-10.8)
[2017-09-25 08:15] LABS: MEAN CELL VOLUME 94.9 fL (80.0-94.0)
[2017-09-25 08:38] LABS: ALB/GLOB RATIO 0.7 (1.0-2.1); ALBUMIN 2.9 g/dL (3.5-5.0); CALCIUM 6.8 mg/dl (8.6-10.4)
[2017-09-25 09:28] LABS: EOSINOPHIL 1 % (0-4); LYMPHOCYTE 5 % (20-40); MONOCYTE 7 % (0-10); NEUTROPHIL 87 % (50-75); TOTAL CELLS COUNTED 100
[2017-09-25 09:32] LABS: ANISOCYTOSIS SLIGHT; HYPOCHROMIC SLIGHT; PLATELET ESTIMATE NORMAL (NORMAL); POLYCHROMIC SLIGHT; TARGET CELLS SLIGHT
[2017-09-25] MEDS ORDERED: Pantoprazole 20 mg EC Tab PO SCH (10:00)
[2017-09-25] MEDS: Multivitamin Vitamin B Complex (Nephro-Vite) Tab PO SCH (10:29)
--- NOTE | 2017-09-25 12:08 | CP.PCM.CON ---
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 Pt also has chronic b/l hydroureteronephrosis 2 /2 severe bph and bladder dysfunction, indwelling sanon, follows w/ Dr Varela. According to the patient he was recently discharged from rehab and the catheter was blocked and patient was unable to pass urine. He also c/o severe abdominal tenderness last night, now improved after sanon replaced. In the emergency room patient had a BUn 138 and creatinine of 8.1 Patient is now admitted for further evaluation. Patient had a similar episode in the last admission and patient refuses renal dialysis the last creatinine was 4.8. 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 Patient also has intermittent CHF with pleural effusion which required pleural tap on the last admission Review of Systems - Constitutional Constitutional: Weight Loss Additional comments: decreased appetite - EENT Eyes: absent: Change in Vision, Other Visual Disturbances Ears: Dizziness. absent: Ear Discharge Nose/Mouth/Throat: absent: Epistaxis, Dry Mouth, Sore Throat - Cardiovascular Cardiovascular: Edema, Pedal Edema, Syncope. absent: Chest Pain - Respiratory Respiratory: Dyspnea - Gastrointestinal Gastrointestinal: Abdominal Pain. absent: Diarrhea, Vomiting - Genitourinary Genitourinary: As Per HPI - Musculoskeletal Musculoskeletal: absent: Abnormal Gait, Muscle Weakness, Numbness - Integumentary Integumentary: absent: Rash - Neurological Neurological: Dizziness, Syncope - Hematologic/Lymphatic Hematologic: absent: Easy Bleeding Past Patient History - Past Medical History & Family History Past Medical History?: No - Past Social History Smoking Status: Never Smoked - CARDIAC Hx Cardiac Disorders: Yes Other/Comment: CARDIOMYOPATHY - PULMONARY Hx Respiratory Disorders: No - NEUROLOGICAL Hx Neurological Disorder: No - HEENT Hx HEENT Problems: No - RENAL Hx Chronic Kidney Disease: Yes - ENDOCRINE/METABOLIC Hx Endocrine Disorders: No - HEMATOLOGICAL/ONCOLOGICAL Hx Anemia: Yes - INTEGUMENTARY Hx Dermatological Problems: No - MUSCULOSKELETAL/RHEUMATOLOGICAL Hx Musculoskeletal Disorders: Yes Hx Falls: Yes - GASTROINTESTINAL Hx Gastrointestinal Disorders: Yes Hx Gastroesophageal Reflux: Yes Other/Comment:  - GENITOURINARY/GYNECOLOGICAL Hx Genitourinary Disorders: Yes Hx Prostate Problems: Yes Hx Urinary Tract Infection: Yes Other/Comment: hx utis-pt has indwelling sanon from [facility] - PSYCHIATRIC Hx Substance Use: No - SURGICAL HISTORY Hx Surgeries: No - ANESTHESIA Hx Anesthesia: No Hx Anesthesia Reactions: No Hx Malignant Hyperthermia: No Meds Allergies/Adverse Reactions: Allergies Allergy/AdvReac Type Severity Reaction Status Date / Time No Known Allergies Allergy Verified 09/24/17 12:54 - Medications Medications: Current Medications Acetaminophen (Tylenol 325mg Tab) 650 mg PO Q4 PRN PRN Reason: Pain, moderate (4-7) Calcitriol (Rocaltrol) 0.25 mcg PO DAILY [facility] Last Admin: 09/25/17 10:29 Dose: 0.25 mcg Calcium Acetate (Phoslo) 667 mg PO TIDCC [facility] Last Admin: 09/25/17 08:27 Dose: 667 mg Heparin Sodium (Porcine) (Heparin) 5,000 units SC BID [facility] Last Admin: 09/25/17 10:30 Dose: 5,000 units Sodium Bicarbonate 75 meq/ (Sodium Chloride) 1,075 mls @ 30 mls/hr IV .Q24H [facility] Last Admin: 09/24/17 17:45 Dose: 30 mls/hr Pantoprazole Sodium (Protonix Ec Tab) 20 mg PO DAILY [facility] Last Admin: 09/25/17 10:29 Dose: 20 mg Tamsulosin HCl (Flomax) 0.4 mg PO DAILY [facility] Last Admin: 09/25/17 10:29 Dose: 0.4 mg Vitamin B Complex/Vit C/Folic Acid (Nephro-Aleksandra) 1 tab PO DAILY [facility] Last Admin: 09/25/17 10:29 Dose: 1 tab Physical Exam - Constitutional Appears: Non-toxic, No Acute Distress, Chronically Ill - Head Exam Head Exam: NORMAL INSPECTION - Eye Exam Eye Exam: Normal appearance Pupil Exam: PERRL - ENT Exam ENT Exam: Mucous Membranes Moist, Normal Exam - Neck Exam Neck exam: Positive for: Normal Inspection - Respiratory Exam Respiratory Exam: NORMAL BREATHING PATTERN (decreased breatrh sounds bases) - Cardiovascular Exam Cardiovascular Exam: REGULAR RHYTHM, RRR - GI/Abdominal Exam Additional comments: pt didnt allow palpation - Extremities Exam Additional comments: chronic skin changes no edema - Neurological Exam Neurological exam: Alert, Oriented x3 - Psychiatric Exam Psychiatric exam: Normal Affect - Skin Skin Exam: Dry Results - Vital Signs Recent Vital Signs: Last Vital Signs Temp 98.4 F 12/05/17 08:48 Pulse 117 H 09/25/17 08:48 Resp 20 09/25/17 08:48 BP 105/63 09/25/17 08:48 Pulse Ox 94 L 09/25/17 08:48 - Labs Result Diagrams: 09/25/17 07:52 09/25/17 07:52 Labs: Laboratory Results - last 24 hr 09/24/17 09/24/17 09/24/17 13:50 14:08 14:08 WBC 10.0 RBC 3.53 L Hgb 10.6 L Hct 34.3 L MCV 97.1 H D MCH 30.0 MCHC 30.9 L RDW 17.5 H Plt Count 200 D MPV 8.6 Neut % (Auto) 87.7 H Lymph % (Auto) 4.3 L [place] % (Auto) 7.5 Eos % (Auto) 0.1 Baso % (Auto) 0.4 Neut # 8.8 H Lymph # 0.4 L [place] # 0.7 Eos # 0.0 Baso # 0.0 Neutrophils % (Manual) 93 H Lymphocytes % (Manual) 5 L Monocytes % (Manual) 2 Eosinophils % (Manual) Platelet Estimate Normal Polychromasia Slight Hypochromasia (manual) Slight Anisocytosis (manual) Slight Target Cells Sodium 146 Potassium 5.8 H Chloride 120 H Carbon Dioxide 8 L* D Anion Gap 24 H BUN 138 H* D Creatinine 8.0 H* D Est GFR ( Amer) 8 Est GFR (Non-Af Amer) 7 Random Glucose 114 H Calcium 7.8 L Total Bilirubin 0.7 AST 15 L D ALT 26 Alkaline Phosphatase 91 Total Protein 8.7 H Albumin 3.8 Globulin 4.9 H Albumin/Globulin Ratio 0.8 L Urine Color Urine Clarity Urine pH Ur Specific [place] Urine Protein Urine Glucose (UA) Urine Ketones Urine Blood Urine Nitrate Urine Bilirubin Urine Urobilinogen Ur Leukocyte Esterase Urine WBC (Auto) Urine RBC (Auto) Stool Occult Blood Negative 09/24/17 09/25/17 09/25/17 15:17 07:52 07:52 WBC 7.5 RBC 3.08 L Hgb 9.3 L Hct 29.2 L MCV 94.9 H D MCH 30.1 MCHC 31.7 L RDW 17.1 H Plt Count 176 MPV 8.8 Neut % (Auto) 83.8 H Lymph % (Auto) 7.7 L [place] % (Auto) 7.3 Eos % (Auto) 0.8 Baso % (Auto) 0.4 Neut # 6.3 Lymph # 0.6 L [place] # 0.5 Eos # 0.1 Baso # 0.0 Neutrophils % (Manual) 87 H Lymphocytes % (Manual) 5 L Monocytes % (Manual) 7 Eosinophils % (Manual) 1 Platelet Estimate Normal Polychromasia Slight Hypochromasia (manual) Slight Anisocytosis (manual) Slight Target Cells Slight Sodium 147 Potassium 5.0 Chloride 119 H Carbon Dioxide 12 L Anion Gap 21 H BUN > 120 H* Creatinine 7.0 H Est GFR ( Amer) 9 Est GFR (Non-Af Amer) 8 Random Glucose 90 Calcium 6.8 L Total Bilirubin 0.6 AST 20 ALT 27 Alkaline Phosphatase 75 Total Protein 6.8 Albumin 2.9 L D Globulin 3.9 Albumin/Globulin Ratio 0.7 L Urine Color Yellow Urine Clarity Hazy Urine pH 5.0 Ur Specific [place] 1.010 Urine Protein 2+ H Urine Glucose (UA) Normal Urine Ketones Negative Urine Blood 3+ H Urine Nitrate Negative Urine Bilirubin Negative Urine Urobilinogen Normal Ur Leukocyte Esterase 3+ H Urine WBC (Auto) 450 H Urine RBC (Auto) 7 H Stool Occult Blood Assessment & Plan (1) UTI (urinary tract infection) Status: Acute (2) Acute urinary retention Status: Acute (3) Obstructed Sanon catheter Status: Acute (4) Renal failure, acute on chronic Status: Acute (5) Cardiomyopathy Status: Acute (6) Metabolic acidosis Status: Acute (7) Urinary retention due to benign prostatic hyperplasia Status: Acute - Assessment and Plan (Free Text) Assessment: ckd 5 josé antonio / obstructive uropathy, bph ?bladder mass met acidosis, hyperkalemia cardiomyopathy ef 15% uti iv fluids, change to bicarb gtt antibiotics for uti, follow cultures check renal ultrasound repeat chem tonight, check phos pth iron stores Discussed w/ pt, doesnt want dialysis at this time.
--- NOTE | 2017-09-25 13:38 | CP.PCM.PN ---
Subjective - Date & Time of Evaluation Date of Evaluation: 09/25/17 Time of Evaluation: 13:36 - Subjective Subjective: CHIEF COMPLAINTS TODAY : FEELING BETTER OUT PUT 4.8 LIT CR DOWN 7 ROS. HEENT : N. Resp : No cough, wheezing ,pleuritic CP ,or hemoptysis Cardio : No anginal CP, PND, orthopnea, palpitation GI : No abd.pain, n/v ,diarrhea or GI bleeding . 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 Musculoskel : No joint swelling , Derm : No rash Psych : Normal affect. Ext : No swelling ,calf pain PE. Pt. is alert awake in no distress. V.S As noted in the chart Head ,ear nose,throat and eyes : Normal. Neck : Supple with normal carotids. Lungs: Clear air entry. Heart : S1 & S2 normal with S4. No murmur. Abd : Soft non tender with normal bowel sounds. Neuro : Moves all ext. with no localized deficit. Ext : + edema with intact pulses.Non tender calves Derm : No rashes or decubitus ulcer. LABS/RADIOLOGY: ASSESSMENT/PLAN : IV FLUIDS WITH NA BICARB CR TRENDING DOWN PT REFUSES DIALYSIS Objective - Vital Signs/Intake and Output Vital Signs (last 24 hours): Temp Pulse Resp BP Pulse Ox 98.4 F 117 H 20 105/63 94 L 09/25/17 08:48 09/25/17 08:48 09/25/17 08:48 09/25/17 08:48 09/25/17 08:48 Intake and Output: 09/25/17 09/25/17 11:59 23:59 Intake Total 490 Output Total 800 Balance -310 - Medications Medications: Current Medications Acetaminophen (Tylenol 325mg Tab) 650 mg PO Q4 PRN PRN Reason: Pain, moderate (4-7) Calcitriol (Rocaltrol) 0.25 mcg PO DAILY [facility] Last Admin: 09/25/17 10:29 Dose: 0.25 mcg Calcium Acetate (Phoslo) 667 mg PO TIDCC [facility] Last Admin: 09/25/17 12:56 Dose: 667 mg Famotidine (Pepcid) 20 mg PO DAILY [facility] Heparin Sodium (Porcine) (Heparin) 5,000 units SC BID [facility] Last Admin: 09/25/17 10:30 Dose: 5,000 units Sodium Bicarbonate 100 meq/ (Sodium Chloride) 1,000 mls @ 75 mls/hr IV .[id number] [facility] Tamsulosin HCl (Flomax) 0.4 mg PO DAILY [facility] Last Admin: 09/25/17 10:29 Dose: 0.4 mg Vitamin B Complex/Vit C/Folic Acid (Nephro-Aleksandra) 1 tab PO DAILY [facility] Last Admin: 09/25/17 10:29 Dose: 1 tab - Labs Labs: 09/25/17 07:52 09/25/17 07:52
[2017-09-25] MEDS: Sodium Bicarbonate 8.4% 100 MEQ in Sodium Chloride 0.45% 900 ML IV SCH ×2 (14:25→21:01)
--- NOTE | 2017-09-25 16:17 | US ---
PROCEDURE: Ultrasound of the Kidneys HISTORY: urinary retention, ?bladder mass COMPARISON: Ultrasound of the urinary bladder from 07/09/2017 TECHNIQUE: Sonogram of the kidneys. FINDINGS: RIGHT KIDNEY: Measures: 9.8 cm. There is diffuse increased echogenicity in the kidneys with cortical atrophy. There is mild hydronephrosis. No nephrolithiasis. LEFT KIDNEY: Measures: 9.8 cm. There is diffuse increased echogenicity in the kidneys with cortical atrophy. There is mild hydronephrosis. No nephrolithiasis OTHER FINDINGS: There is an indwelling Beck catheter within the urinary bladder with subsequent decompression. Allowing for this, the prostate gland is enlargement medial lobe hypertrophic indenting on the base of the urinary bladder the IMPRESSION: 1. Medical renal disease and bilateral renal cortical atrophy. 2. Urinary bladder is decompressed subsequent to indwelling Beck catheter. 3. Enlarged prostate gland with median lobe hypertrophy indenting on the base of the urinary bladder.
--- NOTE | 2017-09-25 17:11 | CP.PCM.CON ---
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 Patient states he was recently discharged from rehabilitation and the catheter was blocked and patient was unable to pass urine. Patient was found to have a BUN of 138 and creatinine of 8.1 on admission. Patient had a Purcell catheter placed in the ER and presently feels much improved. He still continues to have abdominal pain especially suprapubic. Patient is being followed by [facility]. Last cystoscopy done on 07/11/17. Patient also has markedly enlarged prostate with history of diffuse bladder wall thickening secondary to chronic bladder outlet obstruction. Last PSA was 4.3. Infectious disease consultation requested by PMD for positive urine cultures for gram-negative rods/gram-positive cocci. Patient received a dose of ceftriaxone in the ER. PATIENT DENIES ANY FEVERS OR CHILLS BUT STATES HE HAS VERY POOR APPETITE AND VERY WEAK. 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 HEPATITIS C, ADVANCED CACHEXIA/MUSCLE LOSS. 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 DENIES SMOKING, ETHANOL USE, IVDA/SUBSTANCE ABUSE ALLERGIES; NKA. FH; NONCONTRIBUTORY. MEDS ; REVIEWED Review of Systems - Constitutional Constitutional: Weakness. absent: Chills, Fever - EENT Eyes: absent: Floaters Nose/Mouth/Throat: absent: Dry Mouth - Cardiovascular Cardiovascular: Dyspnea on Exertion, Leg Edema. absent: Chest Pain - Respiratory Respiratory: absent: Cough - Gastrointestinal Gastrointestinal: Abdominal Pain (LOWER.) - Genitourinary Genitourinary: Dysuria, Flank Pain (B/L.), Pyuria, Urinary Hesitance, Bladder Distension. absent: Hematuria, Freq UTI - Musculoskeletal Musculoskeletal: Muscle Weakness - Neurological Neurological: Weakness. absent: Dizziness, Headaches - Hematologic/Lymphatic Hematologic: As Per HPI Past Patient History - Past Medical History & Family History Past Medical History?: No - Past Social History Smoking Status: Never Smoked - CARDIAC Hx Cardiac Disorders: Yes Other/Comment: CARDIOMYOPATHY - PULMONARY Hx Respiratory Disorders: No - NEUROLOGICAL Hx Neurological Disorder: No - HEENT Hx HEENT Problems: No - RENAL Hx Chronic Kidney Disease: Yes - ENDOCRINE/METABOLIC Hx Endocrine Disorders: No - HEMATOLOGICAL/ONCOLOGICAL Hx Anemia: Yes - INTEGUMENTARY Hx Dermatological Problems: No - MUSCULOSKELETAL/RHEUMATOLOGICAL Hx Musculoskeletal Disorders: Yes Hx Falls: Yes - GASTROINTESTINAL Hx Gastrointestinal Disorders: Yes Hx Gastroesophageal Reflux: Yes Other/Comment:  - GENITOURINARY/GYNECOLOGICAL Hx Genitourinary Disorders: Yes Hx Prostate Problems: Yes Hx Urinary Tract Infection: Yes Other/Comment: hx utis-pt has indwelling purcell from [facility] - PSYCHIATRIC Hx Substance Use: No - SURGICAL HISTORY Hx Surgeries: No - ANESTHESIA Hx Anesthesia: No Hx Anesthesia Reactions: No Hx Malignant Hyperthermia: No Meds Allergies/Adverse Reactions: Allergies Allergy/AdvReac Type Severity Reaction Status Date / Time No Known Allergies Allergy Verified 09/24/17 12:54 - Medications Medications: Current Medications Acetaminophen (Tylenol 325mg Tab) 650 mg PO Q4 PRN PRN Reason: Pain, moderate (4-7) Calcitriol (Rocaltrol) 0.25 mcg PO DAILY [facility] Last Admin: 09/25/17 10:29 Dose: 0.25 mcg Calcium Acetate (Phoslo) 667 mg PO TIDCC [facility] Last Admin: 09/25/17 12:56 Dose: 667 mg Famotidine (Pepcid) 20 mg PO DAILY [facility] Heparin Sodium (Porcine) (Heparin) 5,000 units SC BID [facility] Last Admin: 09/25/17 10:30 Dose: 5,000 units Sodium Bicarbonate 100 meq/ (Sodium Chloride) 1,000 mls @ 75 mls/hr IV .[id number] [facility] Last Admin: 09/25/17 14:25 Dose: Not Given Ceftriaxone Sodium 1 gm/ (Dextrose) 50 mls @ 100 mls/hr IVPB Q24H [facility] Tamsulosin HCl (Flomax) 0.4 mg PO DAILY [facility] Last Admin: 09/25/17 10:29 Dose: 0.4 mg Vitamin B Complex/Vit C/Folic Acid (Nephro-Aleksandra) 1 tab PO DAILY [facility] Last Admin: 09/25/17 10:29 Dose: 1 tab Physical Exam - Constitutional Appears: No Acute Distress, Cachectic, Chronically Ill - Head Exam Head Exam: NORMAL INSPECTION - Eye Exam Eye Exam: EOMI, PERRL - ENT Exam ENT Exam: Normal Oropharynx - Neck Exam Neck exam: Positive for: Normal Inspection - Respiratory Exam Respiratory Exam: Decreased Breath Sounds - Cardiovascular Exam Cardiovascular Exam: REGULAR RHYTHM, +S1, +S2 - GI/Abdominal Exam GI & Abdominal Exam: Hypoactive Bowel Sounds, Soft, Tenderness (SUPRAPUBIC AND BILATERAL FLANKS.) - Extremities Exam Extremities exam: Positive for: pedal edema. Negative for: calf tenderness - Neurological Exam Neurological exam: Alert, CN II-XII Intact, Oriented x3, Reflexes Normal - Skin Skin Exam: Normal Color, Warm Results - Vital Signs Recent Vital Signs: Last Vital Signs Temp 98.1 F 09/25/17 16:24 Pulse 111 H 09/25/17 16:24 Resp 20 09/25/17 16:24 BP 97/58 L 09/25/17 16:24 Pulse Ox 94 L 09/25/17 16:24 - Labs Result Diagrams: 09/25/17 07:52 09/25/17 19:44 Labs: Laboratory Results - last 24 hr 09/25/17 09/25/17 07:52 07:52 WBC 7.5 RBC 3.08 L Hgb 9.3 L Hct 29.2 L MCV 94.9 H D MCH 30.1 MCHC 31.7 L RDW 17.1 H Plt Count 176 MPV 8.8 Neut % (Auto) 83.8 H Lymph % (Auto) 7.7 L [place] % (Auto) 7.3 Eos % (Auto) 0.8 Baso % (Auto) 0.4 Neut # 6.3 Lymph # 0.6 L [place] # 0.5 Eos # 0.1 Baso # 0.0 Neutrophils % (Manual) 87 H Lymphocytes % (Manual) 5 L Monocytes % (Manual) 7 Eosinophils % (Manual) 1 Platelet Estimate Normal Polychromasia Slight Hypochromasia (manual) Slight Anisocytosis (manual) Slight Target Cells Slight Sodium 147 Potassium 5.0 Chloride 119 H Carbon Dioxide 12 L Anion Gap 21 H BUN 130 H* Creatinine 7.0 H Est GFR ( Amer) 9 Est GFR (Non-Af Amer) 8 Random Glucose 90 Calcium 6.8 L Total Bilirubin 0.6 AST 20 ALT 27 Alkaline Phosphatase 75 Total Protein 6.8 Albumin 2.9 L D Globulin 3.9 Albumin/Globulin Ratio 0.7 L - Imaging and Cardiology Chest x-ray Status: Report reviewed by me (bilateral pleural effusions with ill-defined opacities in lung bases.) Assessment & Plan (1) UTI (urinary tract infection) Assessment and Plan: urine cultures+ve GNR/GPC. WEBSTER - CULTURES CONTINUE iv ROCEPHIN 1 G ONCE A DAY DAILY . 09/24/17 fOLLOW-UP URINE CULTURES TO ADJUST ANTIBIOTICS. PURCELL CATHETER CHANGED IN THE ER OBSTRUCTED.. Status: Acute (2) Acute urinary retention Assessment and Plan: PATIENT HAS BENIGN PROSTATIC HYPERPLASIA BY HISTORY. fOLLOW-UP BLADDER ULTRASOUND FOR NEW INFORMATION. Status: Acute (3) Obstructed Purcell catheter Assessment and Plan: NEW Purcell IN PLACE. PATIENT ADMITS TO LESS DISCOMFORT SUPRAPUBIC AND LOWER ABDOMEN AFTER PLACEMENT OF CATHETER. Status: Acute (4) Renal failure, acute on chronic Assessment and Plan: NEPHROLOGY ON BOARD. bun 120 TODAY/CREATININE OF 7.0 IMPROVING FROM 8.0. CONTINUE TO FOLLOW UP RENAL FUNCTIONS. NEPHROLOGY ON BOARD. pATIENT REFUSING HEMODIALYSIS. Status: Acute (5) Cachexia Assessment and Plan: PATIENT ADMITS TO POOR APPETITE FOR PAST ONE WEEK. dIETITIAN TO SEE THE PATIENT AND ADJUST DIET. Status: Acute (6) Cardiomyopathy Assessment and Plan: PATIENT HAS CARDIOMYOPATHY OF UNKNOWN ORIGIN. EJECTION FRACTION 10-15%. Status: Acute (7) Benign prostatic hyperplasia Assessment and Plan: PATIENT HAS BENIGN PROSTATIC HYPERPLASIA. F/U RENAL FUNCTIONS. Status: Acute
[2017-09-25 20:18] LABS: CALCIUM 6.5 mg/dl (8.6-10.4)
--- NOTE | 2017-09-25 21:51 | CARD ---
APPROVED REPORT EKG Measurement Heart [id number] <Conclusion> Sinus tachycardia Left ventricular hypertrophy with repolarization abnormality Abnormal ECG
[2017-09-26] MEDS: Sodium Bicarbonate 8.4% 100 MEQ in Sodium Chloride 0.45% 900 ML IV SCH ×3 (05:54→15:55)
[2017-09-26] MEDS: Multivitamin Vitamin B Complex (Nephro-Vite) Tab PO SCH (10:04)
--- NOTE | 2017-09-26 13:38 | CP.PCM.PN ---
Subjective - Date & Time of Evaluation Date of Evaluation: 09/26/17 Time of Evaluation: 13:38 - Subjective Subjective: CHIEF COMPLAINTS TODAY : FEELING BETTER OUT PUT 2.8 LIT CR DOWN 6 ROS. HEENT : N. Resp : No cough, wheezing ,pleuritic CP ,or hemoptysis Cardio : No anginal CP, PND, orthopnea, palpitation GI : No abd.pain, n/v ,diarrhea or GI bleeding . 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 Musculoskel : No joint swelling , Derm : No rash Psych : Normal affect. Ext : No swelling ,calf pain PE. Pt. is alert awake in no distress. V.S As noted in the chart Head ,ear nose,throat and eyes : Normal. Neck : Supple with normal carotids. Lungs: Clear air entry. Heart : S1 & S2 normal with S4. No murmur. Abd : Soft non tender with normal bowel sounds. Neuro : Moves all ext. with no localized deficit. Ext : + edema with intact pulses.Non tender calves Derm : No rashes or decubitus ulcer. LABS/RADIOLOGY: ASSESSMENT/PLAN : IV FLUIDS WITH NA BICARB CR TRENDING DOWN PT REFUSES DIALYSIS Objective - Vital Signs/Intake and Output Vital Signs (last 24 hours): Temp Pulse Resp BP Pulse Ox 98.6 F 106 H 20 103/63 96 09/26/17 07:00 09/26/17 07:55 09/26/17 07:00 09/26/17 07:00 09/26/17 07:00 Intake and Output: 09/26/17 09/26/17 11:59 23:59 Intake Total 800 Output Total 800 Balance 0 - Medications Medications: Current Medications Acetaminophen (Tylenol 325mg Tab) 650 mg PO Q4 PRN PRN Reason: Pain, moderate (4-7) Calcitriol (Rocaltrol) 0.25 mcg PO DAILY [facility] Last Admin: 09/26/17 10:04 Dose: 0.25 mcg Calcium Acetate (Phoslo) 667 mg PO TIDCC [facility] Last Admin: 09/26/17 10:05 Dose: 667 mg Famotidine (Pepcid) 20 mg PO DAILY [facility] Last Admin: 09/26/17 10:04 Dose: 20 mg Heparin Sodium (Porcine) (Heparin) 5,000 units SC BID [facility] Last Admin: 09/26/17 10:06 Dose: 5,000 units Sodium Bicarbonate 100 meq/ (Sodium Chloride) 1,000 mls @ 75 mls/hr IV .[id number] [facility] Last Admin: 09/26/17 05:54 Dose: Not Given Ceftriaxone Sodium 1 gm/ (Dextrose) 50 mls @ 100 mls/hr IVPB Q24H [facility] Last Admin: 09/26/17 10:06 Dose: 100 mls/hr Tamsulosin HCl (Flomax) 0.4 mg PO DAILY [facility] Last Admin: 09/26/17 10:05 Dose: 0.4 mg Vitamin B Complex/Vit C/Folic Acid (Nephro-Aleksandra) 1 tab PO DAILY [facility] Last Admin: 09/26/17 10:04 Dose: 1 tab - Labs Labs: 09/25/17 07:52 09/25/17 19:44
--- NOTE | 2017-09-26 14:14 | CP.PCM.PN ---
Subjective - Date & Time of Evaluation Date of Evaluation: 09/26/17 Time of Evaluation: 08:30 - Subjective Subjective: on ivf with hco3 urine in sanon poor appetite feels sob feels weak no headache no rash no pain no vomiting or diarrhea no sinusitis no blood in stool Long discussion about starting dialysis,pt refusing at present Objective - Vital Signs/Intake and Output Vital Signs (last 24 hours): Temp Pulse Resp BP Pulse Ox 98.6 F 106 H 20 103/63 96 09/26/17 07:00 09/26/17 07:55 09/26/17 07:00 09/26/17 07:00 09/26/17 07:00 Intake and Output: 09/26/17 09/26/17 06:59 18:59 Intake Total 1700 Output Total 1600 Balance 100 - Medications Medications: Current Medications Acetaminophen (Tylenol 325mg Tab) 650 mg PO Q4 PRN PRN Reason: Pain, moderate (4-7) Calcitriol (Rocaltrol) 0.25 mcg PO DAILY [facility] Last Admin: 09/26/17 10:04 Dose: 0.25 mcg Calcium Acetate (Phoslo) 667 mg PO TIDCC [facility] Last Admin: 09/26/17 12:45 Dose: 667 mg Famotidine (Pepcid) 20 mg PO DAILY [facility] Last Admin: 09/26/17 10:04 Dose: 20 mg Heparin Sodium (Porcine) (Heparin) 5,000 units SC BID [facility] Last Admin: 09/26/17 10:06 Dose: 5,000 units Sodium Bicarbonate 100 meq/ (Sodium Chloride) 1,000 mls @ 75 mls/hr IV .[id number] [facility] Last Admin: 09/26/17 05:54 Dose: Not Given Ceftriaxone Sodium 1 gm/ (Dextrose) 50 mls @ 100 mls/hr IVPB Q24H [facility] Last Admin: 09/26/17 10:06 Dose: 100 mls/hr Tamsulosin HCl (Flomax) 0.4 mg PO DAILY [facility] Last Admin: 09/26/17 10:05 Dose: 0.4 mg Vitamin B Complex/Vit C/Folic Acid (Nephro-Aleksandra) 1 tab PO DAILY [facility] Last Admin: 09/26/17 10:04 Dose: 1 tab - Labs Labs: 09/25/17 07:52 09/25/17 19:44 - Constitutional Appears: Non-toxic, Chronically Ill - Head Exam Head Exam: ATRAUMATIC, NORMAL INSPECTION - Eye Exam Eye Exam: EOMI, Normal appearance - ENT Exam ENT Exam: Mucous Membranes Moist - Neck Exam Neck Exam: Full ROM. absent: Lymphadenopathy - Respiratory Exam Respiratory Exam: Decreased Breath Sounds. absent: Accessory Muscle Use - Cardiovascular Exam Cardiovascular Exam: REGULAR RHYTHM. absent: Rubs - GI/Abdominal Exam GI & Abdominal Exam: Distended. absent: Guarding, Tenderness - Extremities Exam Extremities Exam: absent: Pedal Edema - Neurological Exam Neurological Exam: Alert, Oriented x3 Assessment and Plan - Assessment and Plan (Free Text) Assessment: uremia josé antonio on ckd underlying ckd obstructive uropathy cardiomyopathy needs to start HD pt refusing continue medical management for now
--- NOTE | 2017-09-26 23:24 | CP.PCM.PN ---
Subjective - Date & Time of Evaluation Date of Evaluation: 09/26/17 Time of Evaluation: 23:24 - Subjective Subjective: afebrile c/o poor appetite and food not tasting good Seen by RUBY HARRISON. REFUSING DIALYSIS. BUN/CREAT SLOW IMPROVEMENT. Objective - Vital Signs/Intake and Output Vital Signs (last 24 hours): Temp Pulse Resp BP Pulse Ox 98.1 F 108 H 20 107/69 96 09/26/17 15:19 09/26/17 16:13 09/26/17 15:19 09/26/17 15:19 09/26/17 15:19 Intake and Output: 09/26/17 09/27/17 18:59 06:59 Intake Total 650 Output Total 900 700 Balance -250 -700 - Medications Medications: Current Medications Acetaminophen (Tylenol 325mg Tab) 650 mg PO Q4 PRN PRN Reason: Pain, moderate (4-7) Calcitriol (Rocaltrol) 0.25 mcg PO DAILY [facility] Last Admin: 09/26/17 10:04 Dose: 0.25 mcg Calcium Acetate (Phoslo) 667 mg PO TIDCC [facility] Last Admin: 09/26/17 18:01 Dose: 667 mg Famotidine (Pepcid) 20 mg PO DAILY [facility] Last Admin: 09/26/17 10:04 Dose: 20 mg Heparin Sodium (Porcine) (Heparin) 5,000 units SC BID [facility] Last Admin: 09/26/17 18:01 Dose: 5,000 units Sodium Bicarbonate 100 meq/ (Sodium Chloride) 1,000 mls @ 75 mls/hr IV .[id number] [facility] Last Admin: 09/26/17 15:55 Dose: 75 mls/hr Ceftriaxone Sodium 1 gm/ (Dextrose) 50 mls @ 100 mls/hr IVPB Q24H [facility] Last Admin: 09/26/17 10:06 Dose: 100 mls/hr Tamsulosin HCl (Flomax) 0.4 mg PO DAILY [facility] Last Admin: 09/26/17 10:05 Dose: 0.4 mg Vitamin B Complex/Vit C/Folic Acid (Nephro-Aleksandra) 1 tab PO DAILY [facility] Last Admin: 09/26/17 10:04 Dose: 1 tab - Labs Labs: 09/25/17 07:52 09/25/17 19:44 - Constitutional Appears: No Acute Distress, Cachectic, Chronically Ill - Head Exam Head Exam: NORMAL INSPECTION - Eye Exam Eye Exam: EOMI, PERRL - ENT Exam ENT Exam: Normal Oropharynx - Neck Exam Neck Exam: Normal Inspection - Respiratory Exam Respiratory Exam: Decreased Breath Sounds - Cardiovascular Exam Cardiovascular Exam: Tachycardia, +S1, +S2 - GI/Abdominal Exam GI & Abdominal Exam: Soft, Tenderness (DECREASING TENDERNESS OVER SUPRAPUBIC REGION.), Normal Bowel Sounds - Extremities Exam Extremities Exam: Normal Capillary Refill. absent: Calf Tenderness, Pedal Edema - Neurological Exam Neurological Exam: Awake, CN II-XII Intact, Oriented x3 - Psychiatric Exam Psychiatric exam: Normal Mood - Skin Skin Exam: Dry, Warm Assessment and Plan (1) UTI (urinary tract infection) Assessment & Plan: urine cultures+ve E. COLI /GPC. CONTINUE iv ROCEPHIN 1 G ONCE A DAY DAILY . 09/24/17 fOLLOW-UP URINE CULTURES TO ADJUST ANTIBIOTICS. BECK CATHETER CHANGED IN THE ER OBSTRUCTED. SEEN BY . Status: Acute (2) Acute urinary retention Status: Acute (3) Obstructed Beck catheter Status: Acute (4) Renal failure, acute on chronic Status: Acute (5) Cachexia Status: Acute (6) Cardiomyopathy Status: Acute (7) Benign prostatic hyperplasia Status: Acute
--- NOTE | 2017-09-26 23:33 | CP.PCM.CON ---
Past Patient History - Past Medical History & Family History Past Medical History?: No - Past Social History Smoking Status: Never Smoked - CARDIAC Hx Cardiac Disorders: Yes Other/Comment: CARDIOMYOPATHY - PULMONARY Hx Respiratory Disorders: No - NEUROLOGICAL Hx Neurological Disorder: No - HEENT Hx HEENT Problems: No - RENAL Hx Chronic Kidney Disease: Yes - ENDOCRINE/METABOLIC Hx Endocrine Disorders: No - HEMATOLOGICAL/ONCOLOGICAL Hx Anemia: Yes - INTEGUMENTARY Hx Dermatological Problems: No - MUSCULOSKELETAL/RHEUMATOLOGICAL Hx Musculoskeletal Disorders: Yes Hx Falls: Yes - GASTROINTESTINAL Hx Gastrointestinal Disorders: Yes Hx Gastroesophageal Reflux: Yes Other/Comment:  - GENITOURINARY/GYNECOLOGICAL Hx Genitourinary Disorders: Yes Hx Prostate Problems: Yes Hx Urinary Tract Infection: Yes Other/Comment: hx utis-pt has indwelling sanon from detention - PSYCHIATRIC Hx Substance Use: No - SURGICAL HISTORY Hx Surgeries: No - ANESTHESIA Hx Anesthesia: No Hx Anesthesia Reactions: No Hx Malignant Hyperthermia: No Meds Allergies/Adverse Reactions: Allergies Allergy/AdvReac Type Severity Reaction Status Date / Time No Known Allergies Allergy Verified 09/24/17 12:54 - Medications Medications: Current Medications Acetaminophen (Tylenol 325mg Tab) 650 mg PO Q4 PRN PRN Reason: Pain, moderate (4-7) Calcitriol (Rocaltrol) 0.25 mcg PO DAILY [facility] Last Admin: 09/26/17 10:04 Dose: 0.25 mcg Calcium Acetate (Phoslo) 667 mg PO TIDCC [facility] Last Admin: 09/26/17 18:01 Dose: 667 mg Famotidine (Pepcid) 20 mg PO DAILY [facility] Last Admin: 09/26/17 10:04 Dose: 20 mg Heparin Sodium (Porcine) (Heparin) 5,000 units SC BID [facility] Last Admin: 09/26/17 18:01 Dose: 5,000 units Sodium Bicarbonate 100 meq/ (Sodium Chloride) 1,000 mls @ 75 mls/hr IV .[id number] [facility] Last Admin: 09/26/17 15:55 Dose: 75 mls/hr Ceftriaxone Sodium 1 gm/ (Dextrose) 50 mls @ 100 mls/hr IVPB Q24H [facility] Last Admin: 09/26/17 10:06 Dose: 100 mls/hr Tamsulosin HCl (Flomax) 0.4 mg PO DAILY [facility] Last Admin: 09/26/17 10:05 Dose: 0.4 mg Vitamin B Complex/Vit C/Folic Acid (Nephro-Aleksandra) 1 tab PO DAILY [facility] Last Admin: 09/26/17 10:04 Dose: 1 tab Results - Vital Signs Recent Vital Signs: Last Vital Signs Temp 98.1 F 09/26/17 15:19 Pulse 108 H 09/26/17 16:13 Resp 20 09/26/17 15:19 BP 107/69 09/26/17 15:19 Pulse Ox 96 09/26/17 15:19 - Labs Result Diagrams: 09/25/17 07:52 09/25/17 19:44 Assessment & Plan - Assessment and Plan (Free Text) Assessment: Imp: urinary retention BPH Renal failure CHF Full note t/f Thank you YS - Date & Time Date: 09/26/17 Time: 12:40
[2017-09-27] MEDS: Sodium Bicarbonate 8.4% 100 MEQ in Sodium Chloride 0.45% 900 ML IV SCH ×3 (03:50→18:58)
[2017-09-27] MEDS: Multivitamin Vitamin B Complex (Nephro-Vite) Tab PO SCH (09:22)
--- NOTE | 2017-09-27 11:14 | CP.PCM.PN ---
Subjective - Date & Time of Evaluation Date of Evaluation: 09/27/17 Time of Evaluation: 11:11 - Subjective Subjective: Remains on bicarb gtt still very weak, poor appetite has h/o profound weight loss last few mos no new labs today long discussion with pt- explained need for dialysis Objective - Vital Signs/Intake and Output Vital Signs (last 24 hours): Temp Pulse Resp BP Pulse Ox 98.2 F 112 H 20 106/66 95 09/26/17 23:15 09/27/17 00:00 09/26/17 23:15 09/26/17 23:15 09/26/17 23:15 Intake and Output: 09/27/17 09/27/17 06:59 18:59 Intake Total 800 Output Total 1550 Balance -750 - Medications Medications: Current Medications Acetaminophen (Tylenol 325mg Tab) 650 mg PO Q4 PRN PRN Reason: Pain, moderate (4-7) Calcitriol (Rocaltrol) 0.25 mcg PO DAILY [facility] Last Admin: 09/26/17 10:04 Dose: 0.25 mcg Calcium Acetate (Phoslo) 667 mg PO TIDCC [facility] Last Admin: 09/27/17 09:21 Dose: 667 mg Famotidine (Pepcid) 20 mg PO DAILY [facility] Last Admin: 09/27/17 09:21 Dose: 20 mg Heparin Sodium (Porcine) (Heparin) 5,000 units SC BID [facility] Last Admin: 09/27/17 09:22 Dose: 5,000 units Sodium Bicarbonate 100 meq/ (Sodium Chloride) 1,000 mls @ 75 mls/hr IV .[id number] [facility] Last Admin: 09/27/17 06:19 Dose: Not Given Ceftriaxone Sodium 1 gm/ (Dextrose) 50 mls @ 100 mls/hr IVPB Q24H [facility] Last Admin: 09/26/17 10:06 Dose: 100 mls/hr Tamsulosin HCl (Flomax) 0.4 mg PO DAILY [facility] Last Admin: 09/27/17 09:22 Dose: 0.4 mg Vitamin B Complex/Vit C/Folic Acid (Nephro-Aleksandra) 1 tab PO DAILY [facility] Last Admin: 09/27/17 09:22 Dose: 1 tab - Labs Labs: 09/25/17 07:52 09/25/17 19:44 - Constitutional Appears: No Acute Distress, Cachectic, Chronically Ill - Head Exam Head Exam: ATRAUMATIC, NORMAL INSPECTION - Eye Exam Eye Exam: EOMI, Normal appearance - Neck Exam Neck Exam: Normal Inspection. absent: Tenderness - Respiratory Exam Respiratory Exam: Clear to Ausculation Bilateral, NORMAL BREATHING PATTERN - Cardiovascular Exam Cardiovascular Exam: REGULAR RHYTHM, +S1 - GI/Abdominal Exam GI & Abdominal Exam: Soft. absent: Tenderness - Extremities Exam Extremities Exam: Normal Inspection. absent: Tenderness - Neurological Exam Neurological Exam: Alert, CN II-XII Intact - Skin Skin Exam: Dry, Warm Assessment and Plan (1) CKD (chronic kidney disease) stage 5, GFR less than 15 ml/min Status: Acute (2) Acute urinary retention Status: Acute (3) Obstructed Beck catheter Status: Acute (4) Cardiomyopathy Status: Acute (5) Hepatitis C antibody positive in blood Status: Acute (6) Metabolic acidosis Status: Acute (7) VRE (vancomycin resistant enterococcus) culture positive Status: Acute - Assessment and Plan (Free Text) Plan: Continue bicarb gtt unlikely to resolve uremia- renal US with severe echoes, minimal hydro treat VRE UTI Will discuss again about COMPLIANCE LEAD in AM; meanwhile to repeat labs
--- NOTE | 2017-09-27 13:36 | CP.PCM.PN ---
Subjective - Date & Time of Evaluation Date of Evaluation: 09/27/17 Time of Evaluation: 13:36 - Subjective Subjective: AFEBRILE, TACHY APPETITE STILL POOR. NEPHROLOGY F/U NOTED AND APPRECIATED. URINE CULTURE +VE E. COLI / VRE CREAT 5.4/UMH292 Objective - Vital Signs/Intake and Output Vital Signs (last 24 hours): Temp Pulse Resp BP Pulse Ox 98.2 F 112 H 20 106/66 95 09/26/17 23:15 09/27/17 00:00 09/26/17 23:15 09/26/17 23:15 09/26/17 23:15 Intake and Output: 09/27/17 09/27/17 06:59 18:59 Intake Total 800 Output Total 1550 Balance -750 - Medications Medications: Current Medications Acetaminophen (Tylenol 325mg Tab) 650 mg PO Q4 PRN PRN Reason: Pain, moderate (4-7) Calcitriol (Rocaltrol) 0.25 mcg PO DAILY [facility] Last Admin: 09/26/17 10:04 Dose: 0.25 mcg Calcium Acetate (Phoslo) 667 mg PO TIDCC [facility] Last Admin: 09/27/17 09:21 Dose: 667 mg Daptomycin (Cubicin) 220 mg 4 mg/kg (220 mg) IV Q48H [facility] Stop: 10/02/17 13:46 Famotidine (Pepcid) 20 mg PO DAILY [facility] Last Admin: 09/27/17 09:21 Dose: 20 mg Heparin Sodium (Porcine) (Heparin) 5,000 units SC BID [facility] Last Admin: 09/27/17 09:22 Dose: 5,000 units Sodium Bicarbonate 100 meq/ (Sodium Chloride) 1,000 mls @ 75 mls/hr IV .[id number] [facility] Last Admin: 09/27/17 06:19 Dose: Not Given Ceftriaxone Sodium 1 gm/ (Dextrose) 50 mls @ 100 mls/hr IVPB Q24H [facility] Last Admin: 09/26/17 10:06 Dose: 100 mls/hr Tamsulosin HCl (Flomax) 0.4 mg PO DAILY [facility] Last Admin: 09/27/17 09:22 Dose: 0.4 mg Vitamin B Complex/Vit C/Folic Acid (Nephro-Aleksandra) 1 tab PO DAILY [facility] Last Admin: 12/07/17 09:22 Dose: 1 tab - Labs Labs: 09/25/17 07:52 09/25/17 19:44 - Constitutional Appears: No Acute Distress, Cachectic, Chronically Ill - Head Exam Head Exam: NORMAL INSPECTION - Eye Exam Eye Exam: EOMI, PERRL - ENT Exam ENT Exam: Normal Oropharynx - Neck Exam Neck Exam: Normal Inspection - Respiratory Exam Respiratory Exam: Clear to Ausculation Bilateral - GI/Abdominal Exam GI & Abdominal Exam: Soft, Tenderness (SUPRAPUBIC.), Normal Bowel Sounds - Extremities Exam Extremities Exam: Pedal Edema. absent: Calf Tenderness - Neurological Exam Neurological Exam: Awake, CN II-XII Intact, Oriented x3 - Psychiatric Exam Psychiatric exam: Normal Mood - Skin Skin Exam: Normal Color, Warm Assessment and Plan (1) UTI (urinary tract infection) Assessment & Plan: CONTINUE iv ROCEPHIN 1 G ONCE A DAY DAILY . 09/24/17 ADD IV DAPTOMYCIN 4MG /KG IVPB Q 48HRLY. 09/27/17 PT HAS ANEW FOLY CATHETHER PLACED IN ER. Status: Acute (2) Acute urinary retention Status: Acute (3) Obstructed Beck catheter Status: Acute (4) Renal failure, acute on chronic Status: Acute (5) Cachexia Status: Acute (6) Cardiomyopathy Status: Acute (7) Benign prostatic hyperplasia Status: Acute
[2017-09-27] MEDS ORDERED: DAPTOMYCIN IV SCH (13:45)
[2017-09-27] MEDS ORDERED: SODIUM CHLORIDE 0.9% IV SCH (13:45)
--- NOTE | 2017-09-27 14:02 | CP.PCM.PN ---
Subjective - Date & Time of Evaluation Date of Evaluation: 09/27/17 Time of Evaluation: 14:01 - Subjective Subjective: CHIEF COMPLAINTS TODAY : FEELING BETTER OUT PUT 2.4 LIT CR DOWN 6 ROS. HEENT : N. Resp : No cough, wheezing ,pleuritic CP ,or hemoptysis Cardio : No anginal CP, PND, orthopnea, palpitation GI : No abd.pain, n/v ,diarrhea or GI bleeding . DISTRIBUTION ANALYST : No headache, vertigo, focal deficit. Musculoskel : No joint swelling , Derm : No rash Psych : Normal affect. Ext : No swelling ,calf pain PE. Pt. is alert awake in no distress. V.S As noted in the chart Head ,ear nose,throat and eyes : Normal. Neck : Supple with normal carotids. Lungs: Clear air entry. Heart : S1 & S2 normal with S4. No murmur. Abd : Soft non tender with normal bowel sounds. Neuro : Moves all ext. with no localized deficit. Ext : + edema with intact pulses.Non tender calves Derm : No rashes or decubitus ulcer. LABS/RADIOLOGY: URINE VRE ASSESSMENT/PLAN : IV FLUIDS WITH NA BICARB CR TRENDING DOWN PT REFUSES DIALYSIS IV DAPTO Objective - Vital Signs/Intake and Output Vital Signs (last 24 hours): Temp Pulse Resp BP Pulse Ox 98.2 F 112 H 20 106/66 95 09/26/17 23:15 09/27/17 00:00 09/26/17 23:15 09/26/17 23:15 09/26/17 23:15 Intake and Output: 09/27/17 09/27/17 11:59 23:59 Intake Total 800 Output Total 850 Balance -50 - Medications Medications: Current Medications Acetaminophen (Tylenol 325mg Tab) 650 mg PO Q4 PRN PRN Reason: Pain, moderate (4-7) Calcitriol (Rocaltrol) 0.25 mcg PO DAILY [facility] Last Admin: 09/26/17 10:04 Dose: 0.25 mcg Calcium Acetate (Phoslo) 667 mg PO TIDCC [facility] Last Admin: 09/27/17 09:21 Dose: 667 mg Famotidine (Pepcid) 20 mg PO DAILY [facility] Last Admin: 09/27/17 09:21 Dose: 20 mg Heparin Sodium (Porcine) (Heparin) 5,000 units SC BID [facility] Last Admin: 09/27/17 09:22 Dose: 5,000 units Sodium Bicarbonate 100 meq/ (Sodium Chloride) 1,000 mls @ 75 mls/hr IV .[id number] [facility] Last Admin: 09/27/17 06:19 Dose: Not Given Ceftriaxone Sodium 1 gm/ (Dextrose) 50 mls @ 100 mls/hr IVPB Q24H [facility] Last Admin: 09/26/17 10:06 Dose: 100 mls/hr Daptomycin 220 mg/ Sodium (Chloride) 50 mls @ 100 mls/hr IV Q48H [facility] Stop: 10/02/17 14:31 Tamsulosin HCl (Flomax) 0.4 mg PO DAILY [facility] Last Admin: 09/27/17 09:22 Dose: 0.4 mg Vitamin B Complex/Vit C/Folic Acid (Nephro-Aleksandra) 1 tab PO DAILY [facility] Last Admin: 09/27/17 09:22 Dose: 1 tab - Labs Labs: 09/25/17 07:52 09/25/17 19:44
[2017-09-27] MEDS ORDERED: DAPTOmycin 500 mg Inj (Cubicin) IV SCH (14:15)
[2017-09-27 14:48] LABS: ALB/GLOB RATIO 0.7 (1.0-2.1); ALBUMIN 2.8 g/dL (3.5-5.0); CALCIUM 6.2 mg/dl (8.6-10.4)
[2017-09-27] MEDS: SODIUM CHLORIDE 0.9% IV SCH (16:29)
[2017-09-27] MEDS: DAPTOMYCIN IV SCH (16:29)
[2017-09-27 17:52] LABS: URINE BACTERIA MOD (<OCC); URINE BILIRUBIN NEGATIVE (NEGATIVE); URINE BLOOD 2+ (NEGATIVE); URINE CLARITY Turbid (Clear); URINE GLUCOSE (UA) NORMAL (Normal); URINE LEUKOCYTE ESTERASE 2+ Leu/uL (Negative); URINE NITRATE NEGATIVE (NEGATIVE); URINE PROTEIN 2+ mg/dL (NEGATIVE); URINE UROBILINOGEN NORMAL mg/dL (0.2-1.0); WBC CLUMPS MANY /hpf
[2017-09-27 17:58] LABS: URINE COLOR STRAW (YELLOW)
[2017-09-28 07:09] LABS: HEMOGLOBIN 9.7 g/dL (12.0-18.0); MEAN CORPUSCULAR HEMOGLOBIN 29.7 pg (27.0-31.0); MEAN PLATELET VOLUME 9.1 fL (7.2-11.7); RBC 3.28 Mil/uL (4.40-5.90); RED CELL DISTRIBUTION WIDTH 16.8 % (11.5-14.5); WHITE BLOOD COUNT 7.5 K/uL (4.8-10.8)
[2017-09-28 07:17] LABS: MEAN CELL VOLUME 92.9 fL (80.0-94.0)
[2017-09-28 08:12] LABS: HEPATITIS B SURFACE AG NEGATIVE (NEGATIVE)
[2017-09-28 08:17] LABS: HEPATITIS B CORE AB Negative (NEGATIVE)
[2017-09-28 08:21] LABS: ALB/GLOB RATIO 0.6 (1.0-2.1); ALBUMIN 2.8 g/dL (3.5-5.0); ALT/SGPT 39 U/L (21-72); AST/SGOT 23 U/L (17-59); BLOOD UREA NITROGEN 99 mg/dL (9-20); CALCIUM 6.3 mg/dl (8.6-10.4); GFR AFRICAN-AMERICAN 14; GFR NON-AFRICAN AMERICAN 12
[2017-09-28] MEDS: Sodium Bicarbonate 8.4% 100 MEQ in Sodium Chloride 0.45% 900 ML IV SCH (08:45)
[2017-09-28] MEDS: Multivitamin Vitamin B Complex (Nephro-Vite) Tab PO SCH (10:05)
[2017-09-28 11:28] LABS: HEPATITIS C ANTIBODY Reactive (NEGATIVE)
--- NOTE | 2017-09-28 14:05 | CP.PCM.PN ---
Subjective - Date & Time of Evaluation Date of Evaluation: 09/28/17 Time of Evaluation: 14:03 - Subjective Subjective: CHIEF COMPLAINTS TODAY : FEELING BETTER OUT PUT 2.4 LIT CR DOWN 4.8 HAD EPISODE OF V TACHY IN EARLY AM ROS. HEENT : N. Resp : No cough, wheezing ,pleuritic CP ,or hemoptysis Cardio : No anginal CP, PND, orthopnea, palpitation GI : No abd.pain, n/v ,diarrhea or GI bleeding . INSPECTOR ASSEMBLY : No headache, vertigo, focal deficit. Musculoskel : No joint swelling , Derm : No rash Psych : Normal affect. Ext : No swelling ,calf pain PE. Pt. is alert awake in no distress. V.S As noted in the chart Head ,ear nose,throat and eyes : Normal. Neck : Supple with normal carotids. Lungs: Clear air entry. Heart : S1 & S2 normal with S4. No murmur. Abd : Soft non tender with normal bowel sounds. Neuro : Moves all ext. with no localized deficit. Ext : + edema with intact pulses.Non tender calves Derm : No rashes or decubitus ulcer. LABS/RADIOLOGY: URINE VRE ASSESSMENT/PLAN : IV FLUIDS WITH NA BICARB CR TRENDING DOWN PT REFUSES DIALYSIS WILL ADD AMIODORONE PT WILL NEED FURTHER CARDIAC W/U , CARDIAC CATH IF HE AGREES ON DIALYSIS AND LATER AICD Objective - Vital Signs/Intake and Output Vital Signs (last 24 hours): Temp Pulse Resp BP Pulse Ox 98.0 F 110 H 20 96/61 L 95 09/28/17 01:00 09/28/17 11:26 09/28/17 01:00 09/28/17 01:00 09/28/17 01:00 Intake and Output: 09/28/17 09/28/17 11:59 23:59 Output Total 700 Balance -700 - Medications Medications: Current Medications Acetaminophen (Tylenol 325mg Tab) 650 mg PO Q4 PRN PRN Reason: Pain, moderate (4-7) Calcitriol (Rocaltrol) 0.25 mcg PO DAILY [facility] Last Admin: 09/28/17 10:04 Dose: 0.25 mcg Calcium Acetate (Phoslo) 667 mg PO TIDCC [facility] Last Admin: 09/28/17 12:00 Dose: 667 mg Famotidine (Pepcid) 20 mg PO DAILY [facility] Last Admin: 09/28/17 10:09 Dose: 20 mg Sodium Bicarbonate 100 meq/ (Sodium Chloride) 1,000 mls @ 75 mls/hr IV .[id number] [facility] Last Admin: 09/28/17 08:45 Dose: 75 mls/hr Ceftriaxone Sodium 1 gm/ (Dextrose) 50 mls @ 100 mls/hr IVPB Q24H [facility] Last Admin: 09/28/17 10:09 Dose: 100 mls/hr Daptomycin 220 mg/ Sodium (Chloride) 50 mls @ 100 mls/hr IV Q48H [facility] Stop: 10/02/17 14:31 Last Admin: 09/27/17 16:29 Dose: 100 mls/hr Tamsulosin HCl (Flomax) 0.4 mg PO DAILY [facility] Last Admin: 09/28/17 10:05 Dose: 0.4 mg Vitamin B Complex/Vit C/Folic Acid (Nephro-Aleksandra) 1 tab PO DAILY [facility] Last Admin: 09/28/17 10:05 Dose: 1 tab - Labs Labs: 09/28/17 06:41 09/28/17 06:41
--- NOTE | 2017-09-28 15:08 | CP.PCM.PN ---
Subjective - Date & Time of Evaluation Date of Evaluation: 09/28/17 Time of Evaluation: 15:06 - Subjective Subjective: feels better on treatment for VRE UTI metabolic acidosis corrected sanon management as per Azotemia improved with IV fluids pt will agree for AV access; wants to hold off on dialysis Objective - Vital Signs/Intake and Output Vital Signs (last 24 hours): Temp Pulse Resp BP Pulse Ox 98.0 F 110 H 20 96/61 L 95 09/28/17 01:00 09/28/17 11:26 09/28/17 01:00 09/28/17 01:00 09/28/17 01:00 Intake and Output: 09/28/17 09/28/17 06:59 18:59 Output Total 1550 Balance -1550 - Medications Medications: Current Medications Acetaminophen (Tylenol 325mg Tab) 650 mg PO Q4 PRN PRN Reason: Pain, moderate (4-7) Amiodarone HCl (Cordarone) 400 mg PO BID [facility] Calcitriol (Rocaltrol) 0.25 mcg PO DAILY [facility] Last Admin: 09/28/17 10:04 Dose: 0.25 mcg Calcium Acetate (Phoslo) 667 mg PO TIDCC [facility] Last Admin: 09/28/17 12:00 Dose: 667 mg Famotidine (Pepcid) 20 mg PO DAILY [facility] Last Admin: 09/28/17 10:09 Dose: 20 mg Ceftriaxone Sodium 1 gm/ (Dextrose) 50 mls @ 100 mls/hr IVPB Q24H [facility] Last Admin: 09/28/17 10:09 Dose: 100 mls/hr Daptomycin 220 mg/ Sodium (Chloride) 50 mls @ 100 mls/hr IV Q48H [facility] Stop: 10/02/17 14:31 Last Admin: 09/27/17 16:29 Dose: 100 mls/hr Tamsulosin HCl (Flomax) 0.4 mg PO DAILY [facility] Last Admin: 09/28/17 10:05 Dose: 0.4 mg Vitamin B Complex/Vit C/Folic Acid (Nephro-Aleksandra) 1 tab PO DAILY [facility] Last Admin: 09/28/17 10:05 Dose: 1 tab - Labs Labs: 09/28/17 06:41 09/28/17 06:41 - Constitutional Appears: No Acute Distress, Chronically Ill - Head Exam Head Exam: ATRAUMATIC, NORMAL INSPECTION - Eye Exam Eye Exam: EOMI, Normal appearance - Neck Exam Neck Exam: Normal Inspection. absent: Tenderness - Respiratory Exam Respiratory Exam: Clear to Ausculation Bilateral, NORMAL BREATHING PATTERN - Cardiovascular Exam Cardiovascular Exam: REGULAR RHYTHM, +S1 - GI/Abdominal Exam GI & Abdominal Exam: Soft. absent: Tenderness - Extremities Exam Extremities Exam: Tenderness. absent: Normal Inspection - Neurological Exam Neurological Exam: Alert, CN II-XII Intact - Skin Skin Exam: Dry, Warm Assessment and Plan (1) CKD (chronic kidney disease) stage 5, GFR less than 15 ml/min Status: Acute (2) Acute urinary retention Status: Acute (3) Obstructed [place] catheter Status: Acute (4) Cardiomyopathy Status: Acute (5) Hepatitis C antibody positive in blood Status: Acute (6) Metabolic acidosis Status: Acute (7) VRE (vancomycin resistant enterococcus) culture positive Status: Acute - Assessment and Plan (Free Text) Plan: stop IV fluids add oral bicarb IV ABs vascular eval for AV access repeat chemistries
[2017-09-28] MEDS: Ferric Sodium Gluconat Complex 62.5 mg/5 ml Vial IVPB SCH ×2 (15:59→16:00)
--- NOTE | 2017-09-28 23:56 | CP.PCM.PN ---
Subjective - Date & Time of Evaluation Date of Evaluation: 09/28/17 Time of Evaluation: 23:56 - Subjective Subjective: afebrile, BP LOW. APPETITE POOR. NO NEW COMPLAINTS. ON ABX FOR VRE/ECOLI UROSEPSIS. LABS REVIEWED. wbc 7.5. pLATELETS IMPROVING 190 k LFTS OK. CREAT 4.8/BUN 99-IMPROVING Objective - Vital Signs/Intake and Output Vital Signs (last 24 hours): Temp Pulse Resp BP Pulse Ox 98 F 107 H 20 107/62 96 09/28/17 10:00 09/28/17 18:00 09/28/17 10:00 09/28/17 10:00 09/28/17 10:00 Intake and Output: 09/28/17 09/29/17 18:59 06:59 Intake Total 880 Output Total 700 900 Balance 180 -900 - Medications Medications: Current Medications Acetaminophen (Tylenol 325mg Tab) 650 mg PO Q4 PRN PRN Reason: Pain, moderate (4-7) Amiodarone HCl (Cordarone) 400 mg PO BID [facility] Last Admin: 09/28/17 17:34 Dose: 400 mg Calcitriol (Rocaltrol) 0.25 mcg PO DAILY [facility] Last Admin: 09/28/17 10:04 Dose: 0.25 mcg Calcium Acetate (Phoslo) 667 mg PO TIDCC [facility] Last Admin: 09/28/17 17:34 Dose: 667 mg Famotidine (Pepcid) 20 mg PO DAILY [facility] Last Admin: 09/28/17 10:09 Dose: 20 mg Ferric Sodium Gluconate Complex (Ferrlecit) 125 mg IVPB DAILY [facility] Stop: 10/03/17 16:01 Last Admin: 09/28/17 16:00 Dose: 125 mg Ceftriaxone Sodium 1 gm/ (Dextrose) 50 mls @ 100 mls/hr IVPB Q24H [facility] Last Admin: 09/28/17 10:09 Dose: 100 mls/hr Daptomycin 220 mg/ Sodium (Chloride) 50 mls @ 100 mls/hr IV Q48H [facility] Stop: 10/02/17 14:31 Last Admin: 09/27/17 16:29 Dose: 100 mls/hr Sodium Bicarbonate (Sodium Bicarbonate Tab) 650 mg PO BID [facility] Last Admin: 09/28/17 17:34 Dose: 650 mg Tamsulosin HCl (Flomax) 0.4 mg PO DAILY [facility] Last Admin: 09/28/17 10:05 Dose: 0.4 mg Vitamin B Complex/Vit C/Folic Acid (Nephro-Aleksandra) 1 tab PO DAILY [facility] Last Admin: 09/28/17 10:05 Dose: 1 tab - Labs Labs: 09/28/17 06:41 09/28/17 06:41 - Constitutional Appears: No Acute Distress, Cachectic, Chronically Ill - Eye Exam Eye Exam: EOMI, PERRL. absent: Scleral icterus - ENT Exam ENT Exam: Normal Oropharynx - Neck Exam Neck Exam: Normal Inspection - Respiratory Exam Respiratory Exam: Clear to Ausculation Bilateral - Cardiovascular Exam Cardiovascular Exam: Tachycardia, +S1, +S2 - GI/Abdominal Exam GI & Abdominal Exam: Soft, Normal Bowel Sounds - Extremities Exam Extremities Exam: absent: Calf Tenderness, Pedal Edema - Neurological Exam Neurological Exam: Awake, CN II-XII Intact, Oriented x3 - Skin Skin Exam: Normal Color, Warm Assessment and Plan (1) UTI (urinary tract infection) Assessment & Plan: CONTINUE iv ANTIBIOTICS. Status: Acute (2) Acute urinary retention Status: Acute (3) Obstructed Beck catheter Status: Acute (4) Renal failure, acute on chronic Assessment & Plan: VASCULAR EVALUATION FOR AV -ACCESS PER RENAL. Status: Acute (5) Cachexia Status: Acute (6) Cardiomyopathy Status: Acute (7) Benign prostatic hyperplasia Status: Acute
[2017-09-29 09:04] LABS: ALB/GLOB RATIO 0.8 (1.0-2.1); ALBUMIN 2.9 g/dL (3.5-5.0); CALCIUM 6.6 mg/dl (8.6-10.4)
--- NOTE | 2017-09-29 09:22 | CP.PCM.PN ---
Subjective - Date & Time of Evaluation Date of Evaluation: 09/29/17 Time of Evaluation: 08:30 - Subjective Subjective: no acute events off ivf requests cardiology eval no cough chronic sob no change in urine stream no rash no pruritis no headache no chest pain no palpitations no abdominal pain no fever or chills appetite fair, "forcing himself" Objective - Vital Signs/Intake and Output Vital Signs (last 24 hours): Temp Pulse Resp BP Pulse Ox 98.4 F 98 H 20 159/96 H 98 09/29/17 07:00 09/29/17 07:00 09/29/17 07:00 09/29/17 07:00 09/29/17 07:00 Intake and Output: 09/29/17 09/29/17 06:59 18:59 Intake Total 120 Output Total 1400 Balance -1400 120 - Medications Medications: Current Medications Acetaminophen (Tylenol 325mg Tab) 650 mg PO Q4 PRN PRN Reason: Pain, moderate (4-7) Amiodarone HCl (Cordarone) 400 mg PO BID [facility] Last Admin: 09/28/17 17:34 Dose: 400 mg Calcitriol (Rocaltrol) 0.25 mcg PO DAILY [facility] Last Admin: 09/28/17 10:04 Dose: 0.25 mcg Calcium Acetate (Phoslo) 667 mg PO TIDCC [facility] Last Admin: 09/28/17 17:34 Dose: 667 mg Famotidine (Pepcid) 20 mg PO DAILY [facility] Last Admin: 09/28/17 10:09 Dose: 20 mg Ferric Sodium Gluconate Complex (Ferrlecit) 125 mg IVPB DAILY [facility] Stop: 10/03/17 16:01 Last Admin: 09/28/17 16:00 Dose: 125 mg Ceftriaxone Sodium 1 gm/ (Dextrose) 50 mls @ 100 mls/hr IVPB Q24H [facility] Last Admin: 09/28/17 10:09 Dose: 100 mls/hr Daptomycin 220 mg/ Sodium (Chloride) 50 mls @ 100 mls/hr IV Q48H [facility] Stop: 10/02/17 14:31 Last Admin: 09/27/17 16:29 Dose: 100 mls/hr Sodium Bicarbonate (Sodium Bicarbonate Tab) 650 mg PO BID [facility] Last Admin: 09/28/17 17:34 Dose: 650 mg Tamsulosin HCl (Flomax) 0.4 mg PO DAILY [facility] Last Admin: 09/28/17 10:05 Dose: 0.4 mg Vitamin B Complex/Vit C/Folic Acid (Nephro-Aleksandra) 1 tab PO DAILY [facility] Last Admin: 09/28/17 10:05 Dose: 1 tab - Labs Labs: 09/28/17 06:41 09/29/17 08:17 - Constitutional Appears: No Acute Distress, Chronically Ill - Head Exam Head Exam: ATRAUMATIC - Eye Exam Eye Exam: EOMI, Normal appearance - ENT Exam ENT Exam: Mucous Membranes Moist - Neck Exam Neck Exam: Full ROM. absent: Lymphadenopathy - Respiratory Exam Respiratory Exam: Decreased Breath Sounds, Rhonchi. absent: Accessory Muscle Use - Cardiovascular Exam Cardiovascular Exam: REGULAR RHYTHM. 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
[2017-09-29] MEDS: Multivitamin Vitamin B Complex (Nephro-Vite) Tab PO SCH (10:04)
[2017-09-29] MEDS: Ferric Sodium Gluconat Complex 62.5 mg/5 ml Vial IVPB SCH (11:00)
--- NOTE | 2017-09-29 14:37 | CP.PCM.PN ---
Subjective - Date & Time of Evaluation Date of Evaluation: 09/29/17 Time of Evaluation: 14:36 - Subjective Subjective: CHIEF COMPLAINTS TODAY : FEELING BETTER OUT PUT 2.4 LIT CR DOWN 4.8 HAD EPISODE OF V TACHY IN EARLY AM ROS. HEENT : N. Resp : No cough, wheezing ,pleuritic CP ,or hemoptysis Cardio : No anginal CP, PND, orthopnea, palpitation GI : No abd.pain, n/v ,diarrhea or GI bleeding . 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 Musculoskel : No joint swelling , Derm : No rash Psych : Normal affect. Ext : No swelling ,calf pain PE. Pt. is alert awake in no distress. V.S As noted in the chart Head ,ear nose,throat and eyes : Normal. Neck : Supple with normal carotids. Lungs: Clear air entry. Heart : S1 & S2 normal with S4. No murmur. Abd : Soft non tender with normal bowel sounds. Neuro : Moves all ext. with no localized deficit. Ext : + edema with intact pulses.Non tender calves Derm : No rashes or decubitus ulcer. LABS/RADIOLOGY: URINE VRE ASSESSMENT/PLAN : CR TRENDING DOWN WILL ADD AMIODORONE PT WILL NEED FURTHER CARDIAC W/U , CARDIAC CATH IF HE AGREES ON DIALYSIS AND LATER AICD IV NAZANIN MON Objective - Vital Signs/Intake and Output Vital Signs (last 24 hours): Temp Pulse Resp BP Pulse Ox 98.4 F 92 H 20 159/96 H 98 09/29/17 07:00 09/29/17 07:47 09/29/17 07:00 09/29/17 07:00 09/29/17 07:00 Intake and Output: 09/29/17 09/29/17 11:59 23:59 Intake Total 120 Output Total 500 Balance -380 - Medications Medications: Current Medications Acetaminophen (Tylenol 325mg Tab) 650 mg PO Q4 PRN PRN Reason: Pain, moderate (4-7) Amiodarone HCl (Cordarone) 400 mg PO BID [facility] Last Admin: 09/29/17 10:04 Dose: 400 mg Calcitriol (Rocaltrol) 0.25 mcg PO DAILY [facility] Last Admin: 09/29/17 10:03 Dose: 0.25 mcg Calcium Acetate (Phoslo) 667 mg PO TIDCC [facility] Last Admin: 09/29/17 08:03 Dose: 667 mg Famotidine (Pepcid) 20 mg PO DAILY [facility] Last Admin: 09/29/17 10:04 Dose: 20 mg Ferric Sodium Gluconate Complex (Ferrlecit) 125 mg IVPB DAILY [facility] Stop: 10/03/17 16:01 Last Admin: 09/29/17 11:00 Dose: 125 mg Ceftriaxone Sodium 1 gm/ (Dextrose) 50 mls @ 100 mls/hr IVPB Q24H [facility] Last Admin: 09/29/17 10:04 Dose: 100 mls/hr Daptomycin 220 mg/ Sodium (Chloride) 50 mls @ 100 mls/hr IV Q48H [facility] Stop: 10/02/17 14:31 Last Admin: 09/27/17 16:29 Dose: 100 mls/hr Sodium Bicarbonate (Sodium Bicarbonate Tab) 650 mg PO BID [facility] Last Admin: 09/29/17 10:04 Dose: 650 mg Tamsulosin HCl (Flomax) 0.4 mg PO DAILY [facility] Last Admin: 09/29/17 10:04 Dose: 0.4 mg Vitamin B Complex/Vit C/Folic Acid (Nephro-Aleksandra) 1 tab PO DAILY [facility] Last Admin: 09/29/17 10:04 Dose: 1 tab - Labs Labs: 09/28/17 06:41 09/29/17 08:17
[2017-09-29] MEDS: DAPTOMYCIN IV SCH (15:03)
[2017-09-29] MEDS: SODIUM CHLORIDE 0.9% IV SCH (15:03)
--- NOTE | 2017-09-29 20:05 | CP.PCM.PN ---
Subjective - Date & Time of Evaluation Date of Evaluation: 09/29/17 Time of Evaluation: 20:05 - Subjective Subjective: CHIEF COMPLAINTS TODAY : AFEBRILE FEELING BETTER HAD EPISODE OF V TACHY IN EARLY AM ROS. HEENT : N. Resp : No cough, wheezing ,pleuritic CP ,or hemoptysis Cardio : No anginal CP, PND, orthopnea, palpitation GI : No abd.pain, n/v ,diarrhea or GI bleeding . 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 Musculoskel : No joint swelling , Derm : No rash Psych : Normal affect. Ext : No swelling ,calf pain PE. Pt. is alert awake in no distress. V.S As noted in the chart Head ,ear nose,throat and eyes : Normal. Neck : Supple with normal carotids. Lungs: Clear air entry. Heart : S1 & S2 normal with S4. No murmur. Abd : Soft non tender with normal bowel sounds. Neuro : Moves all ext. with no localized deficit. Ext : + edema with intact pulses.Non tender calves Derm : No rashes or decubitus ulcer. LABS/RADIOLOGY: URINE VRE/ECOLI wbc 7.5 H/H 9.7 pLATELETS IMPROVING TO 190 CREATININE 5.1/bun 89 DECREASING. LFTS OKAY ASSESSMENT; UROSEPSIS-E.COLI/VRE. ACUTE URINARY RETENTION S/P Mitchell INSERTION. CARDIOMYOPATHY. VENTRICULAR ARRHYTHMIA. RENAL FAILURE BPH. CACHEXIA PLAN : CONTINUE iv CEFTRIAXONE 1 G ONCE A DAY DAILY. CONTINUE iv DAPTOMYCIN 220 MG EVERY 48 HOURLY 09/27/17 AMIODORONE ADDED TODAY PT FOR CARDIAC W/U PER PMD IV NAZANIN MON . PER RENAL. CONTACT PRECAUTIONS-VRE IN URINE. Objective - Vital Signs/Intake and Output Vital Signs (last 24 hours): Temp Pulse Resp BP Pulse Ox 98 F 100 H 20 106/71 98 09/29/17 15:00 09/29/17 15:00 09/29/17 15:00 09/29/17 15:00 09/29/17 15:00 Intake and Output: 09/29/17 09/30/17 18:59 06:59 Intake Total 220 Output Total 600 Balance -380 - Medications Medications: Current Medications Acetaminophen (Tylenol 325mg Tab) 650 mg PO Q4 PRN PRN Reason: Pain, moderate (4-7) Amiodarone HCl (Cordarone) 400 mg PO BID [facility] Last Admin: 09/29/17 18:08 Dose: 400 mg Calcitriol (Rocaltrol) 0.25 mcg PO DAILY [facility] Last Admin: 09/29/17 10:03 Dose: 0.25 mcg Calcium Acetate (Phoslo) 667 mg PO TIDCC [facility] Last Admin: 09/29/17 18:08 Dose: 667 mg Famotidine (Pepcid) 20 mg PO DAILY [facility] Last Admin: 09/29/17 10:04 Dose: 20 mg Ferric Sodium Gluconate Complex (Ferrlecit) 125 mg IVPB DAILY [facility] Stop: 10/03/17 16:01 Last Admin: 09/29/17 11:00 Dose: 125 mg Ceftriaxone Sodium 1 gm/ (Dextrose) 50 mls @ 100 mls/hr IVPB Q24H [facility] Last Admin: 09/29/17 10:04 Dose: 100 mls/hr Daptomycin 220 mg/ Sodium (Chloride) 50 mls @ 100 mls/hr IV Q48H [facility] Stop: 10/02/17 14:31 Last Admin: 09/29/17 15:03 Dose: 100 mls/hr Sodium Bicarbonate (Sodium Bicarbonate Tab) 650 mg PO BID [facility] Last Admin: 09/29/17 18:08 Dose: 650 mg Tamsulosin HCl (Flomax) 0.4 mg PO DAILY [facility] Last Admin: 09/29/17 10:04 Dose: 0.4 mg Vitamin B Complex/Vit C/Folic Acid (Nephro-Aleksandra) 1 tab PO DAILY [facility] Last Admin: 09/29/17 10:04 Dose: 1 tab - Labs Labs: 09/28/17 06:41 09/29/17 08:17 Assessment and Plan (1) UTI (urinary tract infection) Status: Acute (2) Acute urinary retention Status: Acute (3) Obstructed Mitchell catheter Status: Acute (4) Renal failure, acute on chronic Status: Acute (5) Cachexia Status: Acute (6) Cardiomyopathy Status: Acute (7) Benign prostatic hyperplasia Status: Acute
[2017-09-30] MEDS: Ferric Sodium Gluconat Complex 125 MG in Sodium Chloride 0.9% 100 ML IVPB SCH (10:35)
[2017-09-30] MEDS: Multivitamin Vitamin B Complex (Nephro-Vite) Tab PO SCH (10:39)
--- NOTE | 2017-09-30 15:36 | CP.PCM.PN ---
Subjective - Date & Time of Evaluation Date of Evaluation: 09/30/17 Time of Evaluation: 15:35 - Subjective Subjective: IV LEXISCAN MYOVIEW IN AM Objective - Vital Signs/Intake and Output Vital Signs (last 24 hours): Temp Pulse Resp BP Pulse Ox 97.5 F L 86 20 106/72 98 09/30/17 04:00 09/30/17 11:56 09/30/17 04:00 09/30/17 04:00 09/30/17 11:56 Intake and Output: 09/30/17 09/30/17 11:59 23:59 Output Total 500 Balance -500 - Medications Medications: Current Medications Acetaminophen (Tylenol 325mg Tab) 650 mg PO Q4 PRN PRN Reason: Pain, moderate (4-7) Amiodarone HCl (Cordarone) 400 mg PO BID [facility] Last Admin: 09/30/17 10:31 Dose: 400 mg Calcitriol (Rocaltrol) 0.25 mcg PO DAILY [facility] Last Admin: 09/30/17 10:29 Dose: 0.25 mcg Calcium Acetate (Phoslo) 667 mg PO TIDCC [facility] Last Admin: 09/30/17 13:00 Dose: 667 mg Famotidine (Pepcid) 20 mg PO DAILY [facility] Last Admin: 09/30/17 10:38 Dose: 20 mg Ceftriaxone Sodium 1 gm/ (Dextrose) 50 mls @ 100 mls/hr IVPB Q24H [facility] Last Admin: 09/30/17 10:00 Dose: 100 mls/hr Daptomycin 220 mg/ Sodium (Chloride) 50 mls @ 100 mls/hr IV Q48H [facility] Stop: 10/02/17 14:31 Last Admin: 09/29/17 15:03 Dose: 100 mls/hr Ferric Sodium Gluconate Complex 125 mg/ Sodium Chloride 110 mls @ 110 mls/hr IVPB DAILY [facility] Stop: 10/08/17 10:01 Last Admin: 09/30/17 10:35 Dose: 110 mls/hr Sodium Bicarbonate (Sodium Bicarbonate Tab) 650 mg PO BID [facility] Last Admin: 09/30/17 10:29 Dose: 650 mg Tamsulosin HCl (Flomax) 0.4 mg PO DAILY [facility] Last Admin: 09/30/17 10:30 Dose: 0.4 mg Vitamin B Complex/Vit C/Folic Acid (Nephro-Aleksandra) 1 tab PO DAILY [facility] Last Admin: 09/30/17 10:39 Dose: 1 tab - Labs Labs: 09/28/17 06:41 09/29/17 08:17
--- NOTE | 2017-10-01 07:14 | CON ---
DATE: 09/26/2017 UROLOGY CONSULTATION REQUESTED BY: Akhil Wang MD FILLED BY: rBitany Varela MD REASON FOR CONSULTATION: Urinary retention. HISTORY OF PRESENT ILLNESS: Patient is a 77-year-old male with urinary retention. Patient is in, otherwise, [id number]. Patient has history of renal failure. Patient has history of congestive heart failure. Patient has an indwelling Beck catheter. Patient has previous urologic evaluation for urinary retention. He is found to have prostatic enlargement. However, due to patient's associated overall weakness, debilitated state, frailty, nutritional status, and congestive heart failure, patient was felt not to be a good candidate for prostate surgery. He has been managed with an indwelling Beck catheter. However, patient noted at home that his Beck catheter had not been draining urine. He developed abdominal pain and suprapubic pain for the last 2 days. Patient presented to the emergency room. He is found to have urinary retention. He had worsening of his renal function. On presentation to the emergency room, BUN is 138 and creatinine is 8.0. Patient reports the catheter has been draining well since it was replaced. Patient has history of arrhythmia. No recent chest pain. No recent hematuria. No recent fever or rigors. Patient has ischemic cardiomyopathy. His ejection fraction is 15%. Patient reports fair appetite. He reports normal bowel movements. No chest pain. No hematuria. PHYSICAL EXAMINATION: GENERAL: Patient is a well-developed, thin elderly male. The patient is awake and alert. The patient is in bed. ABDOMEN: Soft, nontender, nondistended. No mass or organomegaly. GENITALIA: Without inflammation. Urine is clear via the Beck catheter. (Previous prostatic examination revealed prostatic enlargement.) LABORATORY DATA: Urine culture reveals E. coli and Enterococcus faecalis. See attached reports. Laboratory data reveals some improvement in renal function. Creatinine has gone from 8 on admission to 6.7. BUN has gone from 138 to 124. Urinalysis reveals 150 white blood cells, 7 red blood cells per high-power field. Two plus protein is noted. IMPRESSION: Urinary retention due to catheter malfunction. Exacerbation of renal failure due to catheter malfunction. Urinary retention due to prostatic enlargement. Multiple other problems as listed above including congestive heart failure due to ischemic cardiomyopathy. RECOMMENDATIONS AND PLAN: Beck catheter indwelling. I discussed the options of therapy with patient including possible intermittent self-catheterization, possible indwelling Beck catheter, possible cystostomy tube. Patient has also inquired about the possibility of prostatic surgery. Further therapy to follow according to the patient's clinical course. Further care as per various consultants including infectious disease, cardiology, and nephrology. Thank you for recommending patient for urology consultation. Arsh Varela MD
[2017-10-01 08:04] LABS: BASO % 0.7 % (0.0-2.0); EOS # 0.2 K/uL (0.0-0.7); EOS % 2.3 % (0.0-4.0); HEMOGLOBIN 9.6 g/dL (12.0-18.0); LYMPH # 1.1 K/uL (1.0-4.3); LYMPH % 16.4 % (20.0-40.0); MEAN CORPUSCULAR HEMOGLOBIN 30.6 pg (27.0-31.0); MEAN CORPUSCULAR HGB CONC 32.5 g/dL (33.0-37.0); MEAN PLATELET VOLUME 9.4 fL (7.2-11.7); MONO # 0.4 K/uL (0.0-0.8); MONO % 5.6 % (0.0-10.0); RBC 3.15 Mil/uL (4.40-5.90); RED CELL DISTRIBUTION WIDTH 16.8 % (11.5-14.5); WHITE BLOOD COUNT 6.7 K/uL (4.8-10.8)
--- NOTE | 2017-10-01 08:41 | CP.PCM.CON ---
History of Present Illness - History of Present Illness History of Present Illness: Vascular Surgery Dr. Ordoñez 77 y/o M w/ PMHx of CKD, CHF, and urinary retention w/ indwelling sanon presented to the ED on 09/24/17 for abd pain and obstructed sanon. Pt unwillling to answer questions or discuss plans for AVF. Pt for nuclear stress test this afternoon. PMHx: see above, Hep C, LVEF 15%, IA, arrhythmia, BPH, GERD Meds: reviewed in chart NKDA PSHx: denies SHx: denies tobacco, EtOH, Drug use FHx: noncontributory Review of Systems - Review of Systems Systems not reviewed;Unavailable: Uncooperative (pt refused interview) Past Patient History - Past Medical History & Family History Past Medical History?: No - Past Social History Smoking Status: Never Smoked - CARDIAC Hx Cardiac Disorders: Yes Other/Comment: CARDIOMYOPATHY - PULMONARY Hx Respiratory Disorders: No - NEUROLOGICAL Hx Neurological Disorder: No - HEENT Hx HEENT Problems: No - RENAL Hx Chronic Kidney Disease: Yes - ENDOCRINE/METABOLIC Hx Endocrine Disorders: No - HEMATOLOGICAL/ONCOLOGICAL Hx Anemia: Yes - INTEGUMENTARY Hx Dermatological Problems: No - MUSCULOSKELETAL/RHEUMATOLOGICAL Hx Musculoskeletal Disorders: Yes Hx Falls: Yes - GASTROINTESTINAL Hx Gastrointestinal Disorders: Yes Hx Gastroesophageal Reflux: Yes Other/Comment:  - GENITOURINARY/GYNECOLOGICAL Hx Genitourinary Disorders: Yes Hx Prostate Problems: Yes Hx Urinary Tract Infection: Yes Other/Comment: hx utis-pt has indwelling sanon from [facility] - PSYCHIATRIC Hx Substance Use: No - SURGICAL HISTORY Hx Surgeries: No - ANESTHESIA Hx Anesthesia: No Hx Anesthesia Reactions: No Hx Malignant Hyperthermia: No Meds Allergies/Adverse Reactions: Allergies Allergy/AdvReac Type Severity Reaction Status Date / Time No Known Allergies Allergy Verified 09/24/17 12:54 - Medications Medications: Current Medications Acetaminophen (Tylenol 325mg Tab) 650 mg PO Q4 PRN PRN Reason: Pain, moderate (4-7) Amiodarone HCl (Cordarone) 400 mg PO BID [facility] Last Admin: 09/30/17 17:10 Dose: 400 mg Calcitriol (Rocaltrol) 0.25 mcg PO DAILY [facility] Last Admin: 09/30/17 10:29 Dose: 0.25 mcg Calcium Acetate (Phoslo) 667 mg PO TIDCC [facility] Last Admin: 10/01/17 08:04 Dose: 667 mg Famotidine (Pepcid) 20 mg PO DAILY [facility] Last Admin: 09/30/17 10:38 Dose: 20 mg Ceftriaxone Sodium 1 gm/ (Dextrose) 50 mls @ 100 mls/hr IVPB Q24H [facility] Last Admin: 09/30/17 10:00 Dose: 100 mls/hr Daptomycin 220 mg/ Sodium (Chloride) 50 mls @ 100 mls/hr IV Q48H [facility] Stop: 10/02/17 14:31 Last Admin: 09/29/17 15:03 Dose: 100 mls/hr Ferric Sodium Gluconate Complex 125 mg/ Sodium Chloride 110 mls @ 110 mls/hr IVPB DAILY [facility] Stop: 10/08/17 10:01 Last Admin: 09/30/17 10:35 Dose: 110 mls/hr Sodium Bicarbonate (Sodium Bicarbonate Tab) 650 mg PO BID [facility] Last Admin: 09/30/17 17:10 Dose: 650 mg Tamsulosin HCl (Flomax) 0.4 mg PO DAILY [facility] Last Admin: 09/30/17 10:30 Dose: 0.4 mg Vitamin B Complex/Vit C/Folic Acid (Nephro-Aleksandra) 1 tab PO DAILY [facility] Last Admin: 09/30/17 10:39 Dose: 1 tab Physical Exam - Constitutional Appears: Non-toxic, No Acute Distress - Head Exam Head Exam: NORMAL INSPECTION - Eye Exam Eye Exam: Normal appearance - ENT Exam ENT Exam: Mucous Membranes Moist - Respiratory Exam Respiratory Exam: NORMAL BREATHING PATTERN. absent: Accessory Muscle Use, Respiratory Distress - Extremities Exam Extremities exam: Positive for: normal inspection - Neurological Exam Neurological exam: Alert, Oriented x3 - Psychiatric Exam Psychiatric exam: Normal Affect, Normal Mood - Skin Skin Exam: Dry, Intact, Normal Color, Warm Results - Vital Signs Recent Vital Signs: Last Vital Signs Temp 97.4 F L 09/30/17 17:05 Pulse 89 10/01/17 08:35 Resp 18 09/30/17 17:05 BP 110/74 09/30/17 17:05 Pulse Ox 93 L 09/30/17 17:05 - Labs Result Diagrams: 10/01/17 07:49 10/01/17 07:49 Labs: Laboratory Results - last 24 hr 09/30/17 10/01/17 11:57 07:49 WBC 6.7 RBC 3.15 L Hgb 9.6 L Hct 29.7 L MCV 94.0 MCH 30.6 MCHC 32.5 L RDW 16.8 H Plt Count 221 MPV 9.4 Neut % (Auto) 75.0 Lymph % (Auto) 16.4 L Donley % (Auto) 5.6 Eos % (Auto) 2.3 Baso % (Auto) 0.7 Neut # 5.0 Lymph # 1.1 Donley # 0.4 Eos # 0.2 Baso # 0.0 POC Glucose (mg/dL) 144 H Assessment & Plan - Assessment and Plan (Free Text) Assessment: 77 y/o M w/ acute on chronic kidney injury 2/2 urinary retention - f/u nuclear stress test - f/u Urology recs - f/u cardiology recs for possible surgery - possible OR this admission for AVF pending cardiac clearance and pt cooperation Pt discussed w/ Dr. Tiago Bishop DO PGY2
[2017-10-01 09:03] LABS: CALCIUM 7.3 mg/dl (8.6-10.4)
[2017-10-01] MEDS ORDERED: Aminophylline 25 mg/ml Inj ONE (09:32)
[2017-10-01] MEDS: Multivitamin Vitamin B Complex (Nephro-Vite) Tab PO SCH (10:01)
--- NOTE | 2017-10-01 11:11 | CP.PCM.PN ---
Subjective - Date & Time of Evaluation Date of Evaluation: 10/01/17 Time of Evaluation: 11:08 - Subjective Subjective: Feels better overall; still dysneic with exertion No CPs, poor appetite For stress test today Discussed need for dialysis - patient will agree for dialysis in AM Will need AV fistula- wait for results of EST prior to planning surgery Labs/ weight loss indicate advanced uremia still Objective - Vital Signs/Intake and Output Vital Signs (last 24 hours): Temp Pulse Resp BP Pulse Ox 97.4 F L 89 18 110/74 93 L 09/30/17 17:05 10/01/17 08:35 09/30/17 17:05 09/30/17 17:05 09/30/17 17:05 Intake and Output: 10/01/17 10/01/17 06:59 18:59 Intake Total 400 Output Total 800 Balance -400 - Medications Medications: Current Medications Acetaminophen (Tylenol 325mg Tab) 650 mg PO Q4 PRN PRN Reason: Pain, moderate (4-7) Amiodarone HCl (Cordarone) 400 mg PO BID [facility] Last Admin: 10/01/17 10:01 Dose: 400 mg Calcitriol (Rocaltrol) 0.25 mcg PO DAILY [facility] Last Admin: 10/01/17 10:00 Dose: 0.25 mcg Calcium Acetate (Phoslo) 667 mg PO TIDCC [facility] Last Admin: 10/01/17 08:04 Dose: 667 mg Famotidine (Pepcid) 20 mg PO DAILY [facility] Last Admin: 10/01/17 10:01 Dose: 20 mg Ceftriaxone Sodium 1 gm/ (Dextrose) 50 mls @ 100 mls/hr IVPB Q24H [facility] Last Admin: 10/01/17 09:59 Dose: 100 mls/hr Daptomycin 220 mg/ Sodium (Chloride) 50 mls @ 100 mls/hr IV Q48H [facility] Stop: 10/02/17 14:31 Last Admin: 09/29/17 15:03 Dose: 100 mls/hr Ferric Sodium Gluconate Complex 125 mg/ Sodium Chloride 110 mls @ 110 mls/hr IVPB DAILY [facility] Stop: 10/08/17 10:01 Last Admin: 09/30/17 10:35 Dose: 110 mls/hr Sodium Bicarbonate (Sodium Bicarbonate Tab) 650 mg PO BID [facility] Last Admin: 10/01/17 10:00 Dose: 650 mg Tamsulosin HCl (Flomax) 0.4 mg PO DAILY [facility] Last Admin: 10/01/17 10:01 Dose: 0.4 mg Vitamin B Complex/Vit C/Folic Acid (Nephro-Aleksandra) 1 tab PO DAILY [facility] Last Admin: 10/01/17 10:01 Dose: 1 tab - Labs Labs: 10/01/17 07:49 10/01/17 07:49 - Constitutional Appears: No Acute Distress, Cachectic, Chronically Ill - Head Exam Head Exam: ATRAUMATIC, NORMAL INSPECTION - Eye Exam Eye Exam: EOMI, Normal appearance - Neck Exam Neck Exam: Normal Inspection. absent: Tenderness - Respiratory Exam Respiratory Exam: Clear to Ausculation Bilateral, NORMAL BREATHING PATTERN - Cardiovascular Exam Cardiovascular Exam: REGULAR RHYTHM, +S1 - GI/Abdominal Exam GI & Abdominal Exam: Soft. absent: Tenderness - Extremities Exam Extremities Exam: Normal Inspection, Tenderness - Neurological Exam Neurological Exam: Alert, CN II-XII Intact - Skin Skin Exam: Dry, Warm Assessment and Plan (1) CKD (chronic kidney disease) stage 5, GFR less than 15 ml/min Status: Acute (2) Acute urinary retention Status: Acute (3) Obstructed Beck catheter Status: Acute (4) Cardiomyopathy Status: Acute (5) Hepatitis C antibody positive in blood Status: Acute (6) Metabolic acidosis Status: Acute (7) VRE (vancomycin resistant enterococcus) culture positive Status: Acute - Assessment and Plan (Free Text) Plan: Add EPO Increase calcitriol Dialysis cath in AM EST today AV access pending results of EST Wants to sign dialysis consent tomorrow
[2017-10-01] MEDS: Ferric Sodium Gluconat Complex 125 MG in Sodium Chloride 0.9% 100 ML IVPB SCH (11:33)
--- NOTE | 2017-10-01 12:40 | CP.PCM.PN ---
Subjective - Date & Time of Evaluation Date of Evaluation: 10/01/17 Time of Evaluation: 12:39 - Subjective Subjective: CHIEF COMPLAINTS TODAY : FEELING BETTER OUT PUT 2.4 LIT CR DOWN 4.8 HAD EPISODE OF V TACHY IN EARLY AM ROS. HEENT : N. Resp : No cough, wheezing ,pleuritic CP ,or hemoptysis Cardio : No anginal CP, PND, orthopnea, palpitation GI : No abd.pain, n/v ,diarrhea or GI bleeding . 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 Musculoskel : No joint swelling , Derm : No rash Psych : Normal affect. Ext : No swelling ,calf pain PE. Pt. is alert awake in no distress. V.S As noted in the chart Head ,ear nose,throat and eyes : Normal. Neck : Supple with normal carotids. Lungs: Clear air entry. Heart : S1 & S2 normal with S4. No murmur. Abd : Soft non tender with normal bowel sounds. Neuro : Moves all ext. with no localized deficit. Ext : + edema with intact pulses.Non tender calves Derm : No rashes or decubitus ulcer. LABS/RADIOLOGY: URINE VRE ASSESSMENT/PLAN : CR TRENDING DOWN WILL ADD AMIODORONE PT WILL NEED FURTHER CARDIAC W/U , CARDIAC CATH IF HE AGREES ON DIALYSIS AND LATER AICD Objective - Vital Signs/Intake and Output Vital Signs (last 24 hours): Temp Pulse Resp BP Pulse Ox 97.4 F L 89 18 110/74 93 L 09/30/17 17:05 10/01/17 08:35 09/30/17 17:05 09/30/17 17:05 09/30/17 17:05 Intake and Output: 10/01/17 10/01/17 11:59 23:59 Output Total 200 Balance -200 - Medications Medications: Current Medications Acetaminophen (Tylenol 325mg Tab) 650 mg PO Q4 PRN PRN Reason: Pain, moderate (4-7) Amiodarone HCl (Cordarone) 400 mg PO BID [facility] Last Admin: 10/01/17 10:01 Dose: 400 mg Calcitriol (Rocaltrol) 0.5 mcg PO DAILY [facility] Calcium Acetate (Phoslo) 667 mg PO TIDCC [facility] Last Admin: 10/01/17 11:35 Dose: Not Given Epoetin Pepe (Procrit) 10,000 unit SC [facility] Famotidine (Pepcid) 20 mg PO DAILY [facility] Last Admin: 10/01/17 10:01 Dose: 20 mg Ceftriaxone Sodium 1 gm/ (Dextrose) 50 mls @ 100 mls/hr IVPB Q24H [facility] Last Admin: 10/01/17 09:59 Dose: 100 mls/hr Daptomycin 220 mg/ Sodium (Chloride) 50 mls @ 100 mls/hr IV Q48H [facility] Stop: 10/02/17 14:31 Last Admin: 09/29/17 15:03 Dose: 100 mls/hr Ferric Sodium Gluconate Complex 125 mg/ Sodium Chloride 110 mls @ 110 mls/hr IVPB DAILY [facility] Stop: 10/08/17 10:01 Last Admin: 10/01/17 11:33 Dose: 110 mls/hr Sodium Bicarbonate (Sodium Bicarbonate Tab) 650 mg PO BID [facility] Last Admin: 10/01/17 10:00 Dose: 650 mg Tamsulosin HCl (Flomax) 0.4 mg PO DAILY [facility] Last Admin: 10/01/17 10:01 Dose: 0.4 mg Vitamin B Complex/Vit C/Folic Acid (Nephro-Aleksandra) 1 tab PO DAILY [facility] Last Admin: 10/01/17 10:01 Dose: 1 tab - Labs Labs: 10/01/17 07:49 10/01/17 07:49
[2017-10-01] MEDS: DAPTOMYCIN IV SCH (18:30)
[2017-10-01] MEDS: SODIUM CHLORIDE 0.9% IV SCH (18:30)
--- NOTE | 2017-10-01 22:09 | CP.PCM.PN ---
Subjective - Date & Time of Evaluation Date of Evaluation: 10/01/17 Time of Evaluation: 22:08 - Subjective Subjective: AFEBRILE, NO COMPLAINTS. TOLERATING DIET PT FOR LEXICAM MYOSCAN OF HEART TODAY NOTED PATIENT TOLERATING ANTIBIOTICS lABS REVIEWED; wbc 6.7. H/H 9.6/29.7 PLATELETS ADEQUATE cREATININE 5.8/bun 93 09/28/17 CORRECTED HEPATITIS C ANTIBODY REPORTED REACTIVE. Objective - Vital Signs/Intake and Output Vital Signs (last 24 hours): Temp Pulse Resp BP Pulse Ox 97.7 F 82 20 116/69 92 L 10/01/17 17:15 10/01/17 17:15 10/01/17 17:15 10/01/17 17:15 10/01/17 17:15 - Medications Medications: Current Medications Acetaminophen (Tylenol 325mg Tab) 650 mg PO Q4 PRN PRN Reason: Pain, moderate (4-7) Amiodarone HCl (Cordarone) 400 mg PO BID [facility] Last Admin: 10/01/17 18:30 Dose: 400 mg Calcitriol (Rocaltrol) 0.5 mcg PO DAILY [facility] Calcium Acetate (Phoslo) 667 mg PO TIDCC [facility] Last Admin: 10/01/17 18:30 Dose: 667 mg Epoetin Pepe (Procrit) 10,000 unit SC MWF [facility] Famotidine (Pepcid) 20 mg PO DAILY [facility] Last Admin: 10/01/17 10:01 Dose: 20 mg Ceftriaxone Sodium 1 gm/ (Dextrose) 50 mls @ 100 mls/hr IVPB Q24H [facility] Last Admin: 10/01/17 09:59 Dose: 100 mls/hr Daptomycin 220 mg/ Sodium (Chloride) 50 mls @ 100 mls/hr IV Q48H [facility] Stop: 10/02/17 14:31 Last Admin: 10/01/17 18:30 Dose: 100 mls/hr Ferric Sodium Gluconate Complex 125 mg/ Sodium Chloride 110 mls @ 110 mls/hr IVPB DAILY [facility] Stop: 10/08/17 10:01 Last Admin: 10/01/17 11:33 Dose: 110 mls/hr Sodium Bicarbonate (Sodium Bicarbonate Tab) 650 mg PO BID [facility] Last Admin: 10/01/17 18:30 Dose: 650 mg Tamsulosin HCl (Flomax) 0.4 mg PO DAILY [facility] Last Admin: 12/11/17 10:01 Dose: 0.4 mg Vitamin B Complex/Vit C/Folic Acid (Nephro-Aleksandra) 1 tab PO DAILY [facility] Last Admin: 10/01/17 10:01 Dose: 1 tab - Labs Labs: 10/01/17 07:49 10/01/17 07:49 - Constitutional Appears: No Acute Distress, Cachectic, Chronically Ill - Head Exam Head Exam: NORMAL INSPECTION - Eye Exam Eye Exam: EOMI, PERRL - ENT Exam ENT Exam: Normal Oropharynx - Neck Exam Neck Exam: Normal Inspection - Respiratory Exam Respiratory Exam: Rales (BASILAR RALES.) - Cardiovascular Exam Cardiovascular Exam: REGULAR RHYTHM, +S1, +S2 - GI/Abdominal Exam GI & Abdominal Exam: Soft, Normal Bowel Sounds - Extremities Exam Extremities Exam: absent: Calf Tenderness, Pedal Edema - Neurological Exam Neurological Exam: Awake, Oriented x3 - Skin Skin Exam: Normal Color, Warm Assessment and Plan (1) UTI (urinary tract infection) Assessment & Plan: CONTINUE iv CEFTRIAXONE 1 G ONCE A DAY DAILY. CONTINUE iv DAPTOMYCIN 220 MG EVERY 48 HOURLY 09/27/17 f/u repeat UA urine cultures. Status: Acute (2) Acute urinary retention Status: Acute (3) Obstructed Beck catheter Status: Acute (4) Renal failure, acute on chronic Status: Acute (5) Cachexia Status: Acute (6) Cardiomyopathy Assessment & Plan: PATIENT FOR LEXICON mYOsCAN OF HEART TODAY. Status: Acute (7) Benign prostatic hyperplasia Status: Acute (8) Hepatitis C antibody test positive Assessment & Plan: 09/28/17- hepatitis C antibody reactive ( corrected ) Hepatitis C genotype HCV RNA PCR QUANTITATIVE LEVELS. Status: Acute
--- NOTE | 2017-10-01 22:56 | PCM.URO ---
Urology Progress Note - General General: No Complaints, Tolerating Diet - Subjective Abdominal Pain: No Flank Pain: No Nausea: No Voiding Well: No Hematuria: No Dsypnea: No Chest Pain: No Fever & Chills: No - Objective Lab Studies: Reviewed Lab Results Last 24 Hours: Laboratory Results - last 24 hr 09/28/17 10/01/17 10/01/17 06:41 07:49 07:49 WBC 6.7 RBC 3.15 L Hgb 9.6 L Hct 29.7 L MCV 94.0 MCH 30.6 MCHC 32.5 L RDW 16.8 H Plt Count 221 MPV 9.4 Neut % (Auto) 75.0 Lymph % (Auto) 16.4 L [place] % (Auto) 5.6 Eos % (Auto) 2.3 Baso % (Auto) 0.7 Neut # 5.0 Lymph # 1.1 [place] # 0.4 Eos # 0.2 Baso # 0.0 Sodium 144 Potassium 4.7 Chloride 107 Carbon Dioxide 23 Anion Gap 18 BUN 93 H Creatinine 5.8 H Est GFR ( Amer) 12 Est GFR (Non-Af Amer) 10 Random Glucose 102 Calcium 7.3 L PTH Intact Whole Molec 257 H Intake & Output: Intake & Output 10/01/17 10/01/17 10/02/17 06:59 18:59 06:59 Intake Total 400 Output Total 800 Balance -400 Intake: Oral 400 Output: Urine 800 Urethral (Beck) 800 Other: # Bowel Movements 1 Vital Signs: Vital Signs - 24 hr 09/30/17 10/01/17 10/01/17 23:35 03:30 08:35 Temperature Pulse Rate 99 H 100 H 89 Respiratory Rate Blood Pressure O2 Sat by Pulse Oximetry 10/01/17 10/01/17 16:00 17:15 Temperature 97.7 F Pulse Rate 93 H 82 Respiratory 20 Rate Blood Pressure 116/69 O2 Sat by Pulse 92 L Oximetry - Physical Exam Abdominal Exam: Soft, Non-Tender, Non-Distended Back: No CVA Tenderness Genitalia: Without Inflammation Urinary Catheter Draining Well: Yes Urine Color: Yellow - Plan Additional Information: Imp: urinary retention. renal failure. BPH. CHF, cardiomyopathy. rec/plan;. Catheter in place. findings and options reviewed w pt - Date & Time of Note Date: 10/01/17 Time: 11:10
[2017-10-02 05:00] LABS: SQUAMOUS EPITHIAL < 1 /hpf (0-5); URINE BILIRUBIN NEGATIVE (NEGATIVE); URINE BLOOD 1+ (NEGATIVE); URINE CLARITY Hazy (Clear); URINE COLOR Yellow (YELLOW); URINE GLUCOSE (UA) NORMAL (Normal); URINE LEUKOCYTE ESTERASE 3+ Leu/uL (Negative); URINE NITRATE NEGATIVE (NEGATIVE); URINE PROTEIN 2+ mg/dL (NEGATIVE); URINE UROBILINOGEN NORMAL mg/dL (0.2-1.0); WBC CLUMPS FEW /hpf
[2017-10-02] MEDS: Multivitamin Vitamin B Complex (Nephro-Vite) Tab PO SCH (09:52)
--- NOTE | 2017-10-02 10:58 | CP.PCM.PN ---
Subjective - Date & Time of Evaluation Date of Evaluation: 10/02/17 Time of Evaluation: 10:57 - Subjective Subjective: seen and examined labs noted uop 1.5L, net negative v tach this am myocardial perfusion scan results pending denies any nausea vomiting fevers chills chest pain dizziness. short of breath with minimal exertion pt consented for hd, in chart Objective - Vital Signs/Intake and Output Vital Signs (last 24 hours): Temp Pulse Resp BP Pulse Ox 97.4 F L 86 20 97/66 L 98 10/01/17 23:45 10/02/17 03:35 10/01/17 23:45 10/01/17 23:45 10/01/17 23:45 Intake and Output: 10/02/17 10/02/17 06:59 18:59 Intake Total 290 Output Total 650 200 Balance -360 -200 - Medications Medications: Current Medications Acetaminophen (Tylenol 325mg Tab) 650 mg PO Q4 PRN PRN Reason: Pain, moderate (4-7) Amiodarone HCl (Cordarone) 400 mg PO BID [facility] Last Admin: 10/02/17 09:52 Dose: 400 mg Calcitriol (Rocaltrol) 0.5 mcg PO DAILY [facility] Last Admin: 10/02/17 09:52 Dose: 0.5 mcg Calcium Acetate (Phoslo) 667 mg PO TIDCC [facility] Last Admin: 10/02/17 08:48 Dose: 667 mg Epoetin Pepe (Procrit) 10,000 unit SC F [facility] Famotidine (Pepcid) 20 mg PO DAILY [facility] Last Admin: 10/02/17 09:52 Dose: 20 mg Ceftriaxone Sodium 1 gm/ (Dextrose) 50 mls @ 100 mls/hr IVPB Q24H [facility] Last Admin: 10/02/17 09:52 Dose: 100 mls/hr Daptomycin 220 mg/ Sodium (Chloride) 50 mls @ 100 mls/hr IV Q48H [facility] Stop: 10/02/17 14:31 Last Admin: 10/01/17 18:30 Dose: 100 mls/hr Ferric Sodium Gluconate Complex 125 mg/ Sodium Chloride 110 mls @ 110 mls/hr IVPB DAILY [facility] Stop: 10/08/17 10:01 Last Admin: 10/01/17 11:33 Dose: 110 mls/hr Sodium Bicarbonate (Sodium Bicarbonate Tab) 650 mg PO BID [facility] Last Admin: 10/02/17 09:52 Dose: 650 mg Tamsulosin HCl (Flomax) 0.4 mg PO DAILY [facility] Last Admin: 10/02/17 09:52 Dose: 0.4 mg Vitamin B Complex/Vit C/Folic Acid (Nephro-Aleksandra) 1 tab PO DAILY [facility] Last Admin: 10/02/17 09:52 Dose: 1 tab - Labs Labs: 10/01/17 07:49 10/01/17 07:49 - Constitutional Appears: Non-toxic, No Acute Distress, Older Than Stated Age, Cachectic, Chronically Ill - Head Exam Head Exam: NORMAL INSPECTION - Eye Exam Eye Exam: Normal appearance - ENT Exam ENT Exam: Mucous Membranes Moist, Normal Exam - Neck Exam Neck Exam: Normal Inspection - Respiratory Exam Respiratory Exam: Decreased Breath Sounds, NORMAL BREATHING PATTERN - Cardiovascular Exam Cardiovascular Exam: REGULAR RHYTHM, RRR - GI/Abdominal Exam GI & Abdominal Exam: Distended, Soft - Exam Additional comments: sanon - Extremities Exam Extremities Exam: Full ROM, Normal Inspection, Pedal Edema Assessment and Plan (1) UTI (urinary tract infection) Status: Acute (2) Acute urinary retention Status: Acute (3) Obstructed Sanon catheter Status: Acute (4) Renal failure, acute on chronic Status: Acute (5) Cardiomyopathy Status: Acute (6) Metabolic acidosis Status: Acute (7) Urinary retention due to benign prostatic hyperplasia Status: Acute - Assessment and Plan (Free Text) Assessment: advanced ckd 5 w/ uremic symptoms chf / cardiomyopathy chronic obstructive uropathy, indwelling sanon anemia metabolic bone dz initiate hd after catheter placement today on calcitriol tyrell w/ hd
[2017-10-02] MEDS: Ferric Sodium Gluconat Complex 125 MG in Sodium Chloride 0.9% 100 ML IVPB SCH (11:11)
[2017-10-02] MEDS ORDERED: Lidocaine 1% Inj (20ml) ONE (13:20)
[2017-10-02] MEDS ORDERED: HEPARIN-NS 5,000 UNITS/500 ML 5,000 UNIT/500 ML BAG IV ONE (13:20)
--- NOTE | 2017-10-02 14:18 | CP.PCM.PN ---
Subjective - Date & Time of Evaluation Date of Evaluation: 10/02/17 Time of Evaluation: 14:16 - Subjective Subjective: CHIEF COMPLAINTS TODAY : SOB ON MINIMAL EXERTION FOR SUB CATHER FOR HD ROS. HEENT : N. Resp : No cough, wheezing ,pleuritic CP ,or hemoptysis Cardio : No anginal CP, GI : No abd.pain, n/v ,diarrhea or GI bleeding . 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 Musculoskel : No joint swelling , Derm : No rash Psych : Normal affect. Ext : No swelling ,calf pain PE. Pt. is alert awake in no distress. V.S As noted in the chart Head ,ear nose,throat and eyes : Normal. Neck : Supple with normal carotids. Lungs: Clear air entry. RONCHI Heart : S1 & S2 normal with S4. No murmur. Abd : Soft non tender with normal bowel sounds. Neuro : Moves all ext. with no localized deficit. Ext : + edema with intact pulses.Non tender calves Derm : No rashes or decubitus ulcer. LABS/RADIOLOGY: URINE VRE ASSESSMENT/PLAN : IV NAZANIN PENDING EP EVAL FOR AICD HEMODIALYS Objective - Vital Signs/Intake and Output Vital Signs (last 24 hours): Temp Pulse Resp BP Pulse Ox 97.4 F L 86 20 97/66 L 98 10/01/17 23:45 10/02/17 08:15 10/01/17 23:45 10/01/17 23:45 10/01/17 23:45 Intake and Output: 10/02/17 10/02/17 11:59 23:59 Output Total 650 Balance -650 - Medications Medications: Current Medications Acetaminophen (Tylenol 325mg Tab) 650 mg PO Q4 PRN PRN Reason: Pain, moderate (4-7) Amiodarone HCl (Cordarone) 400 mg PO BID [facility] Last Admin: 10/02/17 09:52 Dose: 400 mg Calcitriol (Rocaltrol) 0.5 mcg PO DAILY [facility] Last Admin: 10/02/17 09:52 Dose: 0.5 mcg Calcium Acetate (Phoslo) 667 mg PO TIDCC [facility] Last Admin: 10/02/17 12:22 Dose: Not Given Epoetin Pepe (Procrit) 10,000 unit SC [facility] Famotidine (Pepcid) 20 mg PO DAILY [facility] Last Admin: 10/02/17 09:52 Dose: 20 mg Ceftriaxone Sodium 1 gm/ (Dextrose) 50 mls @ 100 mls/hr IVPB Q24H [facility] Last Admin: 10/02/17 09:52 Dose: 100 mls/hr Daptomycin 220 mg/ Sodium (Chloride) 50 mls @ 100 mls/hr IV Q48H [facility] Stop: 10/02/17 14:31 Last Admin: 10/01/17 18:30 Dose: 100 mls/hr Ferric Sodium Gluconate Complex 125 mg/ Sodium Chloride 110 mls @ 110 mls/hr IVPB DAILY [facility] Stop: 10/08/17 10:01 Last Admin: 10/02/17 11:11 Dose: 110 mls/hr Sodium Bicarbonate (Sodium Bicarbonate Tab) 650 mg PO BID [facility] Last Admin: 10/02/17 09:52 Dose: 650 mg Tamsulosin HCl (Flomax) 0.4 mg PO DAILY [facility] Last Admin: 10/02/17 09:52 Dose: 0.4 mg Vitamin B Complex/Vit C/Folic Acid (Nephro-Aleksandra) 1 tab PO DAILY [facility] Last Admin: 10/02/17 09:52 Dose: 1 tab - Labs Labs: 10/01/17 07:49 10/01/17 07:49
[2017-10-02] MEDS ORDERED: Sodium Chloride 0.9% 250 ML IV ONE (15:00)
[2017-10-02] MEDS ORDERED: Midazolam 2 MG/2 ML VIAL ONE (15:13)
[2017-10-02] MEDS ORDERED: Oxycodone/Acetaminophen 5/325 mg Tab PO PRN (15:50)
--- NOTE | 2017-10-02 15:52 | PCM.SURG1 ---
Surgeon's Initial Post Op Note - Surgeon's Notes Surgeon: Dr Ordoñez Butcher'S Assistant: Dr Hoskins PGY3 Type of Anesthesia: IV Sedation Pre-Operative Diagnosis: renal failure Operative Findings: see report Post-Operative Diagnosis: as above Operation Performed: right IJ permacath insertion with ultrasound guidance Specimen/Specimens Removed: none Estimated Blood Loss: EBL {In ML}: 10 Blood Products Given: N/A Drains Used: No Drains Post-Op Condition: Good Date of Surgery/Procedure: 10/02/17 Time of Surgery/Procedure: 15:52
--- NOTE | 2017-10-02 16:17 | CARD ---
APPROVED REPORT Protocol: PHARMACOLOGICAL STRESS Test Type: LEXISCAN Test Indications: ACUTE RENAL FAILURE Medications: LIST SCAN Medical History: ACUTE CHRONIC RENAL FAILURE Target HR: 143 bpm Resting Heart Rate: 96 bpm Resting Blood Pressure: 130/70mmHg submaximum (85%): 122 bpm TEST SUMMARY [id number]. INFUSIONDOSE 100:[id number]/70.0. [id number]/70.0. PROCEDURE Pharmacologic stress testing was performed using 0.4mg per 5ml of regadenoson given intravenously over 7-10 seconds. POST EXERCISE Target HR: No Max HR: 98 bpm 78% of Maximum Predicted HR: 143 bpm Exercise duration: 00:30 min:sec, 0 Stage Exercise capacity: 1.0METs Max Blood Pressure: 170/70mmHg Chest Pain: Yes, Angina index: 0 Arrhythmia: Yes, ST Change: Yes, Deviation: 0 mm EXAM: Myocardial Perfusion REST/STRESS Imaging Protocol The imaging protocol used to acquire images was Rest Tc-99m/stress Tc-99m 1 day Rest Spect myocardial perfusion imaging was performed in supine position 39 minutes following the injection of 12 mCi of Tc-99 Myoview. Gated Stress Spect was performed 42 minutes after intravenous 32.1 mCi Tc-99 Myoview injection. The images were gated to evaluate regional wall motion and calculate ventricular ejection fraction.Images were reconstructed using backfilter projection method in short horizontal and verticle long axis. Spect slices were generated. RESTING DATA [id number]/min LCI795.00mlMyocardial Trsc652.00g Av. Heart Rate94.00bpm EF28.00% STRESS DATA ZHH606.01ibPU8.00L/min UAR793.00mlMyocardial Jiri867.00g EF21.00% Regional WT score at stress:3.00 Regional WM score at stress:3.00 Summed WT score at stress:46.00 Av. Heart Rate98.00bpmSummed WM score at stress:54.00 LV Perf. Quant 17 Seg. SSS18.00 17 Seg. SRS10.00 17 Seg. SDS8.00 Stress Defect Extent (% LAD)27.50Rest Defect Extent (% LAD)10.00Rev. Defect Extent (% LAD)11.90 Stress Defect Extent (% LCX)82.50Rest Defect Extent (% LCX)47.50Rev. Defect Extent (% LCX)45.00 Stress Defect Extent (% RCA)11.10Rest Defect Extent (% RCA)5.60Rev. Defect Extent (% RCA)7.80 Stress Defect Extent (% ROWAN)40.40Rest Defect Extent (% ROWAN)18.00Rev. Defect Extent (% ROWAN)23.00 Conclusion 1. ABNORMAL STUDY 2. REVERSIBLE PERFUSION DEFECT LARGE IN LATERAL WALL AND SMALL DEFECT IN ANTERIOR AND INFERIOIR SEGMENT SUGGEST ISCHEMIA 3. SEVERLY DEPRESSED LV EF AT 20%
--- NOTE | 2017-10-02 16:19 | RAD ---
HISTORY: s/p RIJ permacath placement COMPARISON: 09/24/2017 1410 hours FINDINGS: LUNGS: Bilateral pleural effusions -renoted ; slightly bilaterally increased. Bibasilar compressive atelectasis -inferred Underlying concomitant infiltrates not excluded PLEURA: Bilateral pleural effusions -as above. No pneumothorax apparent. CARDIOVASCULAR: Probable cardiomegaly -similar. Pulmonary venous congestion -increased OSSEOUS STRUCTURES: No significant abnormalities. VISUALIZED UPPER ABDOMEN: Normal. OTHER FINDINGS: Hemodialysis catheter certain tip right atrium -interval change IMPRESSION: Interval insertion hemodialysis catheter. Bilateral pleural effusions - bilaterally slightly increased - up to 1/2 each hemithoracic height. Bibasilar compressive atelectasis -inferred. Underlying infiltrates not excluded Cardiomegaly. Pulmonary venous congestion- slightly increased
--- NOTE | 2017-10-02 22:09 | CP.PCM.PN ---
Subjective - Date & Time of Evaluation Date of Evaluation: 10/02/17 Time of Evaluation: 22:09 - Subjective Subjective: AFEBRILE, SOB ON MINIMAL EXERTION S/P RT IJ PERMA CATHETHER 10/02/17 CARDIOLOGY WORKUP IN PROGRESS. Objective - Vital Signs/Intake and Output Vital Signs (last 24 hours): Temp Pulse Resp BP Pulse Ox 97.3 F L 86 18 111/63 96 10/02/17 20:30 10/02/17 20:30 10/02/17 20:30 10/02/17 20:30 10/02/17 20:30 Intake and Output: 10/02/17 10/03/17 18:59 06:59 Output Total 250 Balance -250 - Medications Medications: Current Medications Acetaminophen (Tylenol 325mg Tab) 650 mg PO Q4 PRN PRN Reason: Pain, moderate (4-7) Amiodarone HCl (Cordarone) 400 mg PO BID [facility] Last Admin: 10/02/17 21:07 Dose: 400 mg Calcitriol (Rocaltrol) 0.5 mcg PO DAILY [facility] Last Admin: 10/02/17 09:52 Dose: 0.5 mcg Calcium Acetate (Phoslo) 667 mg PO TIDCC [facility] Last Admin: 10/02/17 21:07 Dose: 667 mg Epoetin Pepe (Procrit) 10,[address] [facility] Famotidine (Pepcid) 20 mg PO DAILY [facility] Last Admin: 10/02/17 09:52 Dose: 20 mg Ceftriaxone Sodium 1 gm/ (Dextrose) 50 mls @ 100 mls/hr IVPB Q24H [facility] Last Admin: 10/02/17 09:52 Dose: 100 mls/hr Ferric Sodium Gluconate Complex 125 mg/ Sodium Chloride 110 mls @ 110 mls/hr IVPB DAILY [facility] Stop: 10/08/17 10:01 Last Admin: 10/02/17 11:11 Dose: 110 mls/hr Oxycodone/Acetaminophen (Percocet 5/325 Mg Tab) 1 tab PO Q4H PRN PRN Reason: Pain, moderate (4-7) Stop: 10/05/17 15:51 Sodium Bicarbonate (Sodium Bicarbonate Tab) 650 mg PO BID [facility] Last Admin: 10/02/17 21:07 Dose: 650 mg Tamsulosin HCl (Flomax) 0.4 mg PO DAILY [facility] Last Admin: 10/02/17 09:52 Dose: 0.4 mg Vitamin B Complex/Vit C/Folic Acid (Nephro-Aleksandra) 1 tab PO DAILY [facility] Last Admin: 10/02/17 09:52 Dose: 1 tab - Labs Labs: 10/01/17 07:49 10/01/17 07:49 - Constitutional Appears: No Acute Distress, Cachectic, Chronically Ill - Head Exam Head Exam: NORMAL INSPECTION - Eye Exam Eye Exam: EOMI, PERRL - ENT Exam ENT Exam: Normal Oropharynx - Neck Exam Neck Exam: Normal Inspection - Respiratory Exam Respiratory Exam: Rales (bILATERAL BASILAR RALES.) - Cardiovascular Exam Cardiovascular Exam: REGULAR RHYTHM, +S1, +S2 - GI/Abdominal Exam GI & Abdominal Exam: Soft, Normal Bowel Sounds - Extremities Exam Extremities Exam: Pedal Edema. absent: Calf Tenderness - Neurological Exam Neurological Exam: Awake, CN II-XII Intact, Oriented x3 - Psychiatric Exam Psychiatric exam: Normal Mood - Skin Skin Exam: Normal Color, Warm Assessment and Plan (1) UTI (urinary tract infection) Assessment & Plan: F/U REPEAT ua URINE CULTURES CONTINUE iv CEFTRIAXONE 1 G ONCE A DAY DAILY. CONTINUE iv DAPTOMYCIN 220 MG EVERY 48 HOURLY 09/27/17 Status: Acute (2) Acute urinary retention Assessment & Plan: PATIENT HAS A Mitchell CATHETER IN PLACE Status: Acute (3) Obstructed Mitchell catheter Status: Acute (4) Renal failure, acute on chronic Status: Acute (5) Cachexia Status: Acute (6) Cardiomyopathy Assessment & Plan: FOLLOW-UP CARDIAC MYOVIEW. PATIENT BEING EVALUATED FOR AICD/CARDIAC CATHETERIZATION R/O CAD. Status: Acute (7) Benign prostatic hyperplasia Status: Acute (8) Hepatitis C antibody test positive Status: Acute
--- NOTE | 2017-10-02 23:47 | CP.PCM.CON ---
History of Present Illness - History of Present Illness History of Present Illness: 77M with no significant PMH, presented for generalized weakness x loss of appetite 1 year. Pt also complained of lightheadedness, fall, and swelling of LE. Pt denies cp, diaphoresis, n/v/d, LOC. Echocardiogram showed EF 10-15%, severely dilated L atrium and L ventricle systolic fxn severely impaired, midly dilated L ventricle. Cardiology consulted for management of cardiomyopathy. 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 denies IVDA, non-smoker, no ETOH Review of Systems - Constitutional Constitutional: absent: Chills, Fever - EENT Eyes: absent: Change in Vision - Cardiovascular Cardiovascular: Dyspnea on Exertion, Edema, Leg Edema, Lightheadedness, Pedal Edema - Gastrointestinal Gastrointestinal: absent: Nausea, Vomiting - Integumentary Integumentary: absent: Rash, Jaundice - Neurological Neurological: Weakness. absent: Abnormal Speech, Dizziness, Focal Weakness, Headaches, Tremor - Psychiatric Psychiatric: absent: Memory Loss - Endocrine Endocrine: Fatigue. absent: Palpitations - Hematologic/Lymphatic Hematologic: absent: Easy Bleeding, Easy Bruising Past Patient History - Past Medical History & Family History Past Medical History?: No - Past Social History Smoking Status: Never Smoked - MUSCULOSKELETAL/RHEUMATOLOGICAL Hx Falls: Yes - PSYCHIATRIC Hx Substance Use: No - SURGICAL HISTORY Hx Surgeries: No - ANESTHESIA Hx Anesthesia: No Hx Anesthesia Reactions: No Hx Malignant Hyperthermia: No Has any member of the family had a problem w/ anesthesia?: No Physical Exam - Constitutional Appears: No Acute Distress - Head Exam Head Exam: ATRAUMATIC, NORMOCEPHALIC - Eye Exam Eye Exam: PERRL - ENT Exam ENT Exam: Mucous Membranes Moist - Respiratory Exam Respiratory Exam: Decreased Breath Sounds, Rales - Cardiovascular Exam Cardiovascular Exam: RRR, +S1, +S2 - GI/Abdominal Exam GI & Abdominal Exam: Normal Bowel Sounds, Soft. absent: Tenderness - Extremities Exam Extremities exam: Negative for: pedal edema - Neurological Exam Neurological exam: Alert, Oriented x3 - Psychiatric Exam Psychiatric exam: Agitated - Skin Skin Exam: Dry, Warm Results - Vital Signs Recent Vital Signs: Last Vital Signs Past Patient History - Past Medical History & Family History Past Medical History?: No - Past Social History Smoking Status: Never Smoked - CARDIAC Hx Cardiac Disorders: Yes Other/Comment: CARDIOMYOPATHY - PULMONARY Hx Respiratory Disorders: No - NEUROLOGICAL Hx Neurological Disorder: No - HEENT Hx HEENT Problems: No - RENAL Hx Chronic Kidney Disease: Yes - ENDOCRINE/METABOLIC Hx Endocrine Disorders: No - HEMATOLOGICAL/ONCOLOGICAL Hx Anemia: Yes - INTEGUMENTARY Hx Dermatological Problems: No - MUSCULOSKELETAL/RHEUMATOLOGICAL Hx Musculoskeletal Disorders: Yes Hx Falls: Yes - GASTROINTESTINAL Hx Gastrointestinal Disorders: Yes Hx Gastroesophageal Reflux: Yes Other/Comment:  - GENITOURINARY/GYNECOLOGICAL Hx Genitourinary Disorders: Yes Hx Prostate Problems: Yes Hx Urinary Tract Infection: Yes Other/Comment: hx utis-pt has indwelling sanon from [facility] - PSYCHIATRIC Hx Substance Use: No - SURGICAL HISTORY Hx Surgeries: No - ANESTHESIA Hx Anesthesia: No Hx Anesthesia Reactions: No Hx Malignant Hyperthermia: No Meds Allergies/Adverse Reactions: Allergies Allergy/AdvReac Type Severity Reaction Status Date / Time No Known Allergies Allergy Verified 09/24/17 12:54 - Medications Medications: Current Medications Acetaminophen (Tylenol 325mg Tab) 650 mg PO Q4 PRN PRN Reason: Pain, moderate (4-7) Amiodarone HCl (Cordarone) 400 mg PO BID [facility] Last Admin: 10/02/17 21:07 Dose: 400 mg Calcitriol (Rocaltrol) 0.5 mcg PO DAILY [facility] Last Admin: 10/02/17 09:52 Dose: 0.5 mcg Calcium Acetate (Phoslo) 667 mg PO TIDCC [facility] Last Admin: 10/02/17 21:07 Dose: 667 mg Epoetin Pepe (Procrit) 10,000 unit [facility] Famotidine (Pepcid) 20 mg PO DAILY [facility] Last Admin: 10/02/17 09:52 Dose: 20 mg Ceftriaxone Sodium 1 gm/ (Dextrose) 50 mls @ 100 mls/hr IVPB Q24H [facility] Last Admin: 10/02/17 09:52 Dose: 100 mls/hr Ferric Sodium Gluconate Complex 125 mg/ Sodium Chloride 110 mls @ 110 mls/hr IVPB DAILY [facility] Stop: 10/08/17 10:01 Last Admin: 10/02/17 11:11 Dose: 110 mls/hr Oxycodone/Acetaminophen (Percocet 5/325 Mg Tab) 1 tab PO Q4H PRN PRN Reason: Pain, moderate (4-7) Stop: 10/05/17 15:51 Sodium Bicarbonate (Sodium Bicarbonate Tab) 650 mg PO BID [facility] Last Admin: 10/02/17 21:07 Dose: 650 mg Tamsulosin HCl (Flomax) 0.4 mg PO DAILY [facility] Last Admin: 10/02/17 09:52 Dose: 0.4 mg Vitamin B Complex/Vit C/Folic Acid (Nephro-Aleksandra) 1 tab PO DAILY [facility] Last Admin: 10/02/17 09:52 Dose: 1 tab Results - Vital Signs Recent Vital Signs: Last Vital Signs Temp 97.3 F L 10/02/17 20:30 Pulse 86 10/02/17 20:30 Resp 18 10/02/17 20:30 BP 111/63 10/02/17 20:30 Pulse Ox 96 10/02/17 20:30 - Labs Result Diagrams: 10/07/17 07:57 10/07/17 07:57 Labs: Laboratory Results - last 24 hr 10/02/17 04:50 Urine Color Yellow Urine Clarity Hazy Urine pH 6.0 Ur Specific [place] 1.012 Urine Protein 2+ H Urine Glucose (UA) Normal Urine Ketones Negative Urine Blood 1+ H Urine Nitrate Negative Urine Bilirubin Negative Urine Urobilinogen Normal Ur Leukocyte Esterase 3+ H Urine WBC (Auto) 337 H Urine RBC (Auto) 7 H Urine WBC Clumps (Auto) Few H Ur Squamous Epith Cells < 1 Assessment & Plan - Assessment and Plan (Free Text) Assessment: 77M with no significant PMH, admitted for acute on Chronic systolic CHF Plan: Cardiomyopathy 2/2 likely viral etiology vs ischemic (unlikely): - Echo 06/12 shows EF 10-15%, mildly dilated L ventrcile. L ventricle systolic function severely imparied. Transmitral Doppler flow pattern: Grade II pseduonormal filling dynamics. L atrial pressure severely dilated. Mild AR. Mild MR. Moderate right and left pleural effusions. - EKG shows HR 94, NSR, QTc mildly prolonged 480 ms, T wave inversions V5, V6, I , II. - Will start low dose BB. hold because BP on low side currently. Will perform cardiac cath to assess coronaries Chronic renal failure Likely needs HD LifeVset and ICD eval by Dr. cruz
[2017-10-03] MEDS ORDERED: EPOETIN ALFA 10,000 UNIT/ML ML SC SCH (09:00)
[2017-10-03] MEDS: Multivitamin Vitamin B Complex (Nephro-Vite) Tab PO SCH (10:30)
--- NOTE | 2017-10-03 10:56 | VASCLAB ---
PROCEDURE: Upper Extremity Venous Duplex Exam HISTORY: CKD; AVF access PRIORS: None. TECHNIQUE: Bilateral upper extremity, internal jugular, subclavian, axillary, brachial, ulnar, radial, basilic and upper cephalic veins were evaluated. Flow was assessed with color Doppler, compressibility, assessment of phasic flow and augmentation response. Report prepared by RANDI Gibson, RVT FINDINGS: RIGHT: 1. Internal Jugular Vein: Compressibility - Fully compressible: Thrombus - None : Flow - Phasic 2. Subclavian Vein:Compressibility - Fully compressible: Thrombus - None : Flow - Phasic 3. Axillary Vein: Compressibility - Fully compressible: Thrombus - None 4. Brachial Vein: Compressibility - Fully compressible: Thrombus - None 5. Ulnar Vein:Compressibility - Fully compressible: Thrombus - None 6. Radial Vein:Compressibility - Fully compressible: Thrombus - None 7. Cephalic Vein: Compressibility - Fully compressible: thrombus - None 7.1. Upper Arm: Proximal Diameter: 0.33cm. Mid Diameter: 0.27cm. Distal Diameter: 0.34cm. Antecubital Fossa: 0.45cm. 7.2. Forearm: Proximal Diameter: cm. Mid Diameter:cm. Distal Diameter: cm 8. Basilic Vein:Compressibility - Fully compressible: thrombus - None 8.1. Upper Arm:Proximal Diameter: cm. Mid Diameter: cm. Distal Diameter: cm. Antecubital Fossa: cm. 8.2. Forearm: Proximal Diameter: 0.14cm. Mid Diameter:0.16cm. Distal Diameter: 0.12cm. LEFT: 1. Internal Jugular Vein: Compressibility - Fully compressible: Thrombus - None : Flow - Phasic 2. Subclavian Vein:Compressibility - Fully compressible: Thrombus - None : Flow - Phasic 3. Axillary Vein: Compressibility - Fully compressible: Thrombus - None 4. Brachial Vein: Compressibility - Fully compressible: Thrombus - None 5. Ulnar Vein:Compressibility - Fully compressible: Thrombus - None 6. Radial Vein:Compressibility - Fully compressible: Thrombus - None 7. Cephalic Vein: Compressibility - Fully compressible: thrombus - None 7.1. Upper Arm: Proximal Diameter: 0.32cm. Mid Diameter: 0.30cm. Distal Diameter: 0.28cm. Antecubital Fossa: 0.38cm. 7.2. Forearm: Proximal Diameter: 0.30cm. Mid Diameter:cm. Distal Diameter: cm 8. Basilic Vein:Compressibility - Fully compressible: thrombus - None 8.1. Upper Arm:Proximal Diameter: 0.42cm. Mid Diameter: 0.30cm. Distal Diameter: 0.24cm. Antecubital Fossa: 0.28cm. 8.2. Forearm: Proximal Diameter: 0.19cm. Mid Diameter:0.18cm. Distal Diameter: 0.21cm. OTHER FINDINGS: POLI Rowe notified about the findings. IMPRESSION: Right: Acute superficial vein thrombosis noted in the right forearm cephalic and upper arm basilic veins. Diameter measurements of the right cephalic vein is measured between 0.27 cm and 0.45 cm and basilic vein is measured between 0.12 cm and 0.16 cm. Left: Acute superficial vein thrombosis noted in the left forearm cephalic vein. Diameter measurements of the left cephalic vein is measured between 0.28 cm and 0.38 cm and basilic vein is measured between 0.18cm and 0.42cm.
--- NOTE | 2017-10-03 11:03 | CP.PCM.PN ---
Subjective - Date & Time of Evaluation Date of Evaluation: 10/03/17 Time of Evaluation: 09:45 - Subjective Subjective: Vascular Surgery Dr. Ordoñez Pt S&E @bedside. Pt had dialysis catheter placed yesterday. Pt tolerated the procedure well w/ no complications. NAEO. Pt has no complaints. not very cooperative to interview or exam. tolerating diet. Objective - Vital Signs/Intake and Output Vital Signs (last 24 hours): Temp Pulse Resp BP Pulse Ox 97.3 F L 86 18 111/63 96 10/02/17 20:30 10/03/17 03:20 10/02/17 20:30 10/02/17 20:30 10/02/17 20:30 Intake and Output: 10/03/17 10/03/17 06:59 18:59 Output Total 275 Balance -275 - Medications Medications: Current Medications Acetaminophen (Tylenol 325mg Tab) 650 mg PO Q4 PRN PRN Reason: Pain, moderate (4-7) Amiodarone HCl (Cordarone) 400 mg PO BID [facility] Last Admin: 10/02/17 21:07 Dose: 400 mg Calcitriol (Rocaltrol) 0.5 mcg PO DAILY [facility] Last Admin: 10/03/17 10:30 Dose: 0.5 mcg Calcium Acetate (Phoslo) 667 mg PO TIDCC [facility] Last Admin: 10/03/17 08:46 Dose: 667 mg Epoetin Pepe (Procrit) 10,000 unit SC [facility] Famotidine (Pepcid) 20 mg PO DAILY [facility] Last Admin: 10/03/17 10:30 Dose: 20 mg Ceftriaxone Sodium 1 gm/ (Dextrose) 50 mls @ 100 mls/hr IVPB Q24H [facility] Last Admin: 10/03/17 10:29 Dose: 100 mls/hr Ferric Sodium Gluconate Complex 125 mg/ Sodium Chloride 110 mls @ 110 mls/hr IVPB DAILY [facility] Stop: 10/08/17 10:01 Last Admin: 10/02/17 11:11 Dose: 110 mls/hr Oxycodone/Acetaminophen (Percocet 5/325 Mg Tab) 1 tab PO Q4H PRN PRN Reason: Pain, moderate (4-7) Stop: 10/05/17 15:51 Sodium Bicarbonate (Sodium Bicarbonate Tab) 650 mg PO BID [facility] Last Admin: 10/03/17 10:30 Dose: 650 mg Tamsulosin HCl (Flomax) 0.4 mg PO DAILY [facility] Last Admin: 10/03/17 10:30 Dose: 0.4 mg Vitamin B Complex/Vit C/Folic Acid (Nephro-Aleksandra) 1 tab PO DAILY [facility] Last Admin: 10/03/17 10:30 Dose: 1 tab - Labs Labs: 10/01/17 07:49 10/01/17 07:49 - Constitutional Appears: Non-toxic, No Acute Distress - Head Exam Head Exam: NORMAL INSPECTION - Eye Exam Eye Exam: Normal appearance - ENT Exam ENT Exam: Mucous Membranes Moist - Neck Exam Additional comments: permacath in place dressing c/d/i - Respiratory Exam Respiratory Exam: NORMAL BREATHING PATTERN. absent: Accessory Muscle Use, Respiratory Distress - Neurological Exam Neurological Exam: Alert, Awake, Oriented x3 - Psychiatric Exam Psychiatric exam: Normal Affect, Normal Mood - Skin Skin Exam: Dry, Warm Assessment and Plan - Assessment and Plan (Free Text) Assessment: 77 y/o M POD#1 s/p permacath placement - permacath good to use for dialysis - f/u vein mapping - pt will need cardiac clearance prior to AVF placement - f/u cardiology recs - cont medical management per medical team Pt discussed w/ Dr. Tiago Bishop DO PGY2
[2017-10-03] MEDS: Ferric Sodium Gluconat Complex 125 MG in Sodium Chloride 0.9% 100 ML IVPB SCH (12:46)
--- NOTE | 2017-10-03 13:40 | CP.PCM.PN ---
Subjective - Date & Time of Evaluation Date of Evaluation: 10/03/17 Time of Evaluation: 13:39 - Subjective Subjective: CHIEF COMPLAINTS TODAY : SOB ON MINIMAL EXERTION FOR SUB CATHER FOR HD ROS. HEENT : N. Resp : No cough, wheezing ,pleuritic CP ,or hemoptysis Cardio : No anginal CP, GI : No abd.pain, n/v ,diarrhea or GI bleeding . [employer] F[employer]OR[employer] : No headache, vertigo, focal deficit. Musculoskel : No joint swelling , Derm : No rash Psych : Normal affect. Ext : No swelling ,calf pain PE. Pt. is alert awake in no distress. V.S As noted in the chart Head ,ear nose,throat and eyes : Normal. Neck : Supple with normal carotids. Lungs: Clear air entry. RONCHI Heart : S1 & S2 normal with S4. No murmur. Abd : Soft non tender with normal bowel sounds. Neuro : Moves all ext. with no localized deficit. Ext : + edema with intact pulses.Non tender calves Derm : No rashes or decubitus ulcer. LABS/RADIOLOGY: URINE VRE IV LEXISIS POSITIVE FOR ISCHEMIA ASSESSMENT/PLAN : CARD [place] , FOR CATH IN AM IN HEMODIALYSIS Objective - Vital Signs/Intake and Output Vital Signs (last 24 hours): Temp Pulse Resp BP Pulse Ox 97.3 F L 86 18 111/63 96 10/02/17 20:30 10/03/17 03:20 10/02/17 20:30 10/02/17 20:30 10/02/17 20:30 Intake and Output: 10/03/17 10/03/17 11:59 23:59 Output Total 275 Balance -275 - Medications Medications: Current Medications Acetaminophen (Tylenol 325mg Tab) 650 mg PO Q4 PRN PRN Reason: Pain, moderate (4-7) Amiodarone HCl (Cordarone) 400 mg PO BID [facility] Last Admin: 10/03/17 10:30 Dose: 400 mg Calcitriol (Rocaltrol) 0.5 mcg PO DAILY [facility] Last Admin: 10/03/17 10:30 Dose: 0.5 mcg Calcium Acetate (Phoslo) 667 mg PO TIDCC [facility] Last Admin: 10/03/17 12:28 Dose: 667 mg Epoetin Pepe (Procrit) 10,000 unit SC MWF [facility] Last Admin: 10/03/17 10:42 Dose: 10,000 unit Famotidine (Pepcid) 20 mg PO DAILY [facility] Last Admin: 10/03/17 10:30 Dose: 20 mg Ceftriaxone Sodium 1 gm/ (Dextrose) 50 mls @ 100 mls/hr IVPB Q24H [facility] Last Admin: 10/03/17 10:29 Dose: 100 mls/hr Ferric Sodium Gluconate Complex 125 mg/ Sodium Chloride 110 mls @ 110 mls/hr IVPB DAILY [facility] Stop: 10/08/17 10:01 Last Admin: 10/03/17 12:46 Dose: 110 mls/hr Oxycodone/Acetaminophen (Percocet 5/325 Mg Tab) 1 tab PO Q4H PRN PRN Reason: Pain, moderate (4-7) Stop: 10/05/17 15:51 Sodium Bicarbonate (Sodium Bicarbonate Tab) 650 mg PO BID [facility] Last Admin: 10/03/17 10:30 Dose: 650 mg Tamsulosin HCl (Flomax) 0.4 mg PO DAILY [facility] Last Admin: 10/03/17 10:30 Dose: 0.4 mg Vitamin B Complex/Vit C/Folic Acid (Nephro-Aleksandra) 1 tab PO DAILY [facility] Last Admin: 10/03/17 10:30 Dose: 1 tab - Labs Labs: 10/01/17 07:49 10/01/17 07:49
--- NOTE | 2017-10-03 13:53 | CP.PCM.PN ---
Subjective - Date & Time of Evaluation Date of Evaluation: 10/03/17 Time of Evaluation: 13:50 - Subjective Subjective: Tolerated dialysis 10/02 myocardial scan abnormal- LV EF - 20% s/p episode of VTACH Permcath worked well still c/o weakness, has atypical chest pains as well on ESAs and IV Fe still with orhopnea, nausea Objective - Vital Signs/Intake and Output Vital Signs (last 24 hours): Temp Pulse Resp BP Pulse Ox 97.3 F L 86 18 111/63 96 10/02/17 20:30 10/03/17 03:20 10/02/17 20:30 10/02/17 20:30 10/02/17 20:30 Intake and Output: 10/03/17 10/03/17 06:59 18:59 Output Total 275 Balance -275 - Medications Medications: Current Medications Acetaminophen (Tylenol 325mg Tab) 650 mg PO Q4 PRN PRN Reason: Pain, moderate (4-7) Amiodarone HCl (Cordarone) 400 mg PO BID [facility] Last Admin: 10/03/17 10:30 Dose: 400 mg Calcitriol (Rocaltrol) 0.5 mcg PO DAILY [facility] Last Admin: 10/03/17 10:30 Dose: 0.5 mcg Calcium Acetate (Phoslo) 667 mg PO TIDCC [facility] Last Admin: 10/03/17 12:28 Dose: 667 mg Epoetin Pepe (Procrit) 10,000 unit IV F [facility] Famotidine (Pepcid) 20 mg PO DAILY [facility] Last Admin: 10/03/17 10:30 Dose: 20 mg Ceftriaxone Sodium 1 gm/ (Dextrose) 50 mls @ 100 mls/hr IVPB Q24H [facility] Last Admin: 10/03/17 10:29 Dose: 100 mls/hr Ferric Sodium Gluconate Complex 125 mg/ Sodium Chloride 110 mls @ 110 mls/hr IVPB DAILY [facility] Stop: 10/08/17 10:01 Last Admin: 10/03/17 12:46 Dose: 110 mls/hr Oxycodone/Acetaminophen (Percocet 5/325 Mg Tab) 1 tab PO Q4H PRN PRN Reason: Pain, moderate (4-7) Stop: 10/05/17 15:51 Tamsulosin HCl (Flomax) 0.4 mg PO DAILY [facility] Last Admin: 10/03/17 10:30 Dose: 0.4 mg Vitamin B Complex/Vit C/Folic Acid (Nephro-Aleksandra) 1 tab PO DAILY [facility] Last Admin: 10/03/17 10:30 Dose: 1 tab - Labs Labs: 10/01/17 07:49 10/01/17 07:49 - Constitutional Appears: No Acute Distress, Chronically Ill - Head Exam Head Exam: ATRAUMATIC, NORMAL INSPECTION - Eye Exam Eye Exam: EOMI, Normal appearance - Neck Exam Neck Exam: Normal Inspection. absent: Tenderness - Respiratory Exam Respiratory Exam: Clear to Ausculation Bilateral, NORMAL BREATHING PATTERN - Cardiovascular Exam Cardiovascular Exam: REGULAR RHYTHM, +S1 - GI/Abdominal Exam GI & Abdominal Exam: Soft. absent: Tenderness - Extremities Exam Extremities Exam: Normal Inspection. absent: Tenderness - Neurological Exam Neurological Exam: Alert, CN II-XII Intact - Skin Skin Exam: Dry, Warm Assessment and Plan (1) CKD (chronic kidney disease) stage 5, GFR less than 15 ml/min Status: Acute (2) Acute urinary retention Status: Acute (3) Obstructed Beck catheter Status: Acute (4) Cardiomyopathy Status: Acute (5) Hepatitis C antibody positive in blood Status: Acute (6) Metabolic acidosis Status: Resolved (7) VRE (vancomycin resistant enterococcus) culture positive Status: Acute - Assessment and Plan (Free Text) Plan: Repeat dialysis again today continue IV Fe, ESAs cardiac cath in AM
[2017-10-03] MEDS ORDERED: EPOETIN ALFA 10,000 UNIT/ML ML IV SCH (14:30)
--- NOTE | 2017-10-03 15:36 | RAD ---
PROCEDURE: Intraoperative Fluoroscopy. HISTORY: RENAL FAILURE FINDINGS: Fluoroscopic assistance was provided 13.4 seconds of fluoroscopy time utilized during this procedure. Radiation dose = 2.26 mGy
--- NOTE | 2017-10-03 19:26 | CP.PCM.CON ---
History of Present Illness - History of Present Illness History of Present Illness: Chart and consults and imaging reviewed Admitted with obstructive uropathy; Carries a diagnosis of 'ischemic cardiomyopathy Consult for consideration for a device implant for sudden prophylaxis Past Patient History - Past Medical History & Family History Past Medical History?: No - Past Social History Smoking Status: Never Smoked - CARDIAC Hx Cardiac Disorders: Yes Other/Comment: CARDIOMYOPATHY - PULMONARY Hx Respiratory Disorders: No - NEUROLOGICAL Hx Neurological Disorder: No - HEENT Hx HEENT Problems: No - RENAL Hx Chronic Kidney Disease: Yes - ENDOCRINE/METABOLIC Hx Endocrine Disorders: No - HEMATOLOGICAL/ONCOLOGICAL Hx Anemia: Yes - INTEGUMENTARY Hx Dermatological Problems: No - MUSCULOSKELETAL/RHEUMATOLOGICAL Hx Musculoskeletal Disorders: Yes Hx Falls: Yes - GASTROINTESTINAL Hx Gastrointestinal Disorders: Yes Hx Gastroesophageal Reflux: Yes Other/Comment:  - GENITOURINARY/GYNECOLOGICAL Hx Genitourinary Disorders: Yes Hx Prostate Problems: Yes Hx Urinary Tract Infection: Yes Other/Comment: hx utis-pt has indwelling [facility] - PSYCHIATRIC Hx Substance Use: No - SURGICAL HISTORY Hx Surgeries: No - ANESTHESIA Hx Anesthesia: No Hx Anesthesia Reactions: No Hx Malignant Hyperthermia: No Meds Allergies/Adverse Reactions: Allergies Allergy/AdvReac Type Severity Reaction Status Date / Time No Known Allergies Allergy Verified 09/24/17 12:54 - Medications Medications: Current Medications Acetaminophen (Tylenol 325mg Tab) 650 mg PO Q4 PRN PRN Reason: Pain, moderate (4-7) Amiodarone HCl (Cordarone) 400 mg PO BID [facility] Last Admin: 10/03/17 17:46 Dose: Not Given Calcitriol (Rocaltrol) 0.5 mcg PO DAILY [facility] Last Admin: 10/03/17 10:30 Dose: 0.5 mcg Calcium Acetate (Phoslo) 667 mg PO TIDCC [facility] Last Admin: 10/03/17 17:47 Dose: Not Given Epoetin Pepe (Procrit) 10,000 unit IV MWF [facility] Famotidine (Pepcid) 20 mg PO DAILY [facility] Last Admin: 10/03/17 10:30 Dose: 20 mg Ceftriaxone Sodium 1 gm/ (Dextrose) 50 mls @ 100 mls/hr IVPB Q24H [facility] Last Admin: 10/03/17 10:29 Dose: 100 mls/hr Ferric Sodium Gluconate Complex 125 mg/ Sodium Chloride 110 mls @ 110 mls/hr IVPB DAILY [facility] Stop: 10/08/17 10:01 Last Admin: 10/03/17 12:46 Dose: 110 mls/hr Oxycodone/Acetaminophen (Percocet 5/325 Mg Tab) 1 tab PO Q4H PRN PRN Reason: Pain, moderate (4-7) Stop: 10/05/17 15:51 Tamsulosin HCl (Flomax) 0.4 mg PO DAILY [facility] Last Admin: 10/03/17 10:30 Dose: 0.4 mg Vitamin B Complex/Vit C/Folic Acid (Nephro-Aleksandra) 1 tab PO DAILY [facility] Last Admin: 10/03/17 10:30 Dose: 1 tab Results - Vital Signs Recent Vital Signs: Last Vital Signs Temp 97.4 F L 10/03/17 15:55 Pulse 95 H 10/03/17 15:55 Resp 20 10/03/17 15:55 BP 91/61 L 10/03/17 19:00 Pulse Ox 98 10/03/17 16:00 - Labs Result Diagrams: 10/10/17 06:26 10/10/17 06:26 Assessment & Plan - Assessment and Plan (Free Text) Assessment: Based on the clinical data he is a candidate for a device assuming ischemic disease of the myocardium and permanence of left ventricular systolic dysfunction and that he is not a candidate for revascularization of the coronaries Options include an external device with a life vest Plan: DW patient s options Intervention at some point In the interim would continue with beta blockers
--- NOTE | 2017-10-03 22:59 | CP.PCM.PN ---
Subjective - Date & Time of Evaluation Date of Evaluation: 10/03/17 Time of Evaluation: 22:59 - Subjective Subjective: AFEBRILE PRESENTLY GETTING SECOND HEMODIALYSIS 10/03/17 FIRST DIALYSIS 10/02/17. C/O GENERALIZED WEAKNESS. / SOB WITH MINIMAL EXERTION. ABNORMAL MYOSCAN -LVEF -20% ISCHEMIA NOTED ?CAD. PATIENT SEEN BY INTERVENTIONAL CARDIOLOGY-DR LANDAVERDE -fOR CARDIAC CATHETERIZATION IN A.M. Objective - Vital Signs/Intake and Output Vital Signs (last 24 hours): Temp Pulse Resp BP Pulse Ox 97.3 F L 81 20 91/61 L 93 L 10/03/17 18:15 10/03/17 18:15 10/03/17 18:15 10/03/17 19:00 10/03/17 18:15 Intake and Output: 10/03/17 10/04/17 18:59 06:59 Intake Total 240 Output Total 275 Balance -35 - Medications Medications: Current Medications Acetaminophen (Tylenol 325mg Tab) 650 mg PO Q4 PRN PRN Reason: Pain, moderate (4-7) Amiodarone HCl (Cordarone) 400 mg PO BID [facility] Last Admin: 10/03/17 17:46 Dose: Not Given Calcitriol (Rocaltrol) 0.5 mcg PO DAILY [facility] Last Admin: 10/03/17 10:30 Dose: 0.5 mcg Calcium Acetate (Phoslo) 667 mg PO TIDCC [facility] Last Admin: 10/03/17 17:47 Dose: Not Given Epoetin Pepe (Procrit) 10,000 [place] [facility]amot[place] (Pepcid) 20 mg PO DAILY [facility] Last Admin: 10/03/17 10:30 Dose: 20 mg Ceftriaxone Sodium 1 gm/ (Dextrose) 50 mls @ 100 mls/hr IVPB Q24H [facility] Last Admin: 10/03/17 10:29 Dose: 100 mls/hr Ferric Sodium Gluconate Complex 125 mg/ Sodium Chloride 110 mls @ 110 mls/hr IVPB DAILY [facility] Stop: 10/08/17 10:01 Last Admin: 10/03/17 12:46 Dose: 110 mls/hr Oxycodone/Acetaminophen (Percocet 5/325 Mg Tab) 1 tab PO Q4H PRN PRN Reason: Pain, moderate (4-7) Stop: 10/05/17 15:51 Tamsulosin HCl (Flomax) 0.4 mg PO DAILY [facility] Last Admin: 10/03/17 10:30 Dose: 0.4 mg Vitamin B Complex/Vit C/Folic Acid (Nephro-Aleksandra) 1 tab PO DAILY [facility] Last Admin: 10/03/17 10:30 Dose: 1 tab - Labs Labs: 10/01/17 07:49 10/01/17 07:49 - Constitutional Appears: No Acute Distress, Cachectic, Chronically Ill - Head Exam Head Exam: NORMAL INSPECTION - Eye Exam Eye Exam: EOMI, PERRL - ENT Exam ENT Exam: Normal Oropharynx - Respiratory Exam Respiratory Exam: Rales (BASILAR RALES.) - Cardiovascular Exam Cardiovascular Exam: REGULAR RHYTHM, +S1, +S2 - GI/Abdominal Exam GI & Abdominal Exam: Soft, Normal Bowel Sounds - Exam Exam: Bladder Distension (+VE FOLYS) - Extremities Exam Extremities Exam: Pedal Edema. absent: Calf Tenderness - Neurological Exam Neurological Exam: Awake, CN II-XII Intact, Oriented x3 - Psychiatric Exam Psychiatric exam: Normal Mood - Skin Skin Exam: Normal Color, Warm Assessment and Plan (1) UTI (urinary tract infection) Assessment & Plan: REPEAT URINE CULTURE +VE .GNR 10/02/17 ? COLONIZATION. PATIENT ON CEFTRIAXONE 1 G EVERY 24 HOURLY.08/02/17- DC DAPTOMYCIN Status: Acute (2) Acute urinary retention Status: Acute (3) Obstructed Beck catheter Status: Acute (4) Renal failure, acute on chronic Assessment & Plan: RIGHT ij PERMANENT CATHETER IN PLACE 10/02/17. pATIENT ON HEMODIALYSIS SECOND TIME TODAY PER RENAL. Status: Acute (5) Cachexia Status: Acute (6) Cardiomyopathy Assessment & Plan: CARDIAC WORKUP IN PROGRESS. PATIENT FOR CARDIAC CATHETERIZATION IN THE A.M. BY DR LANDAVERDE. PATIENT ALSO SEEN BY EP FOR AICD TODAY Status: Acute (7) Benign prostatic hyperplasia Status: Acute (8) Hepatitis C antibody test positive Status: Acute
--- NOTE | 2017-10-04 09:33 | CP.PCM.PN ---
Subjective - Date & Time of Evaluation Date of Evaluation: 10/04/17 Time of Evaluation: 07:30 - Subjective Subjective: Surgery Progress note. Dr. Ordoñez Pt seen and examined at bedside. No acute events overnight. 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 No F/C. No new complaints. Objective - Vital Signs/Intake and Output Vital Signs (last 24 hours): Temp Pulse Resp BP Pulse Ox 98.0 F 83 20 100/61 95 10/03/17 23:25 10/04/17 04:17 10/03/17 23:25 10/03/17 23:25 10/03/17 23:25 Intake and Output: 10/04/17 10/04/17 06:59 18:59 Intake Total 240 Output Total 375 Balance -135 - Medications Medications: Current Medications Acetaminophen (Tylenol 325mg Tab) 650 mg PO Q4 PRN PRN Reason: Pain, moderate (4-7) Amiodarone HCl (Cordarone) 400 mg PO BID [facility] Last Admin: 10/03/17 17:46 Dose: Not Given Calcitriol (Rocaltrol) 0.5 mcg PO DAILY [facility] Last Admin: 10/03/17 10:30 Dose: 0.5 mcg Calcium Acetate (Phoslo) 667 mg PO TIDCC [facility] Last Admin: 10/03/17 17:47 Dose: Not Given Epoetin Pepe (Procrit) 10,000 unit IV MWF [facility] Famotidine (Pepcid) 20 mg PO DAILY [facility] Last Admin: 10/03/17 10:30 Dose: 20 mg Ceftriaxone Sodium 1 gm/ (Dextrose) 50 mls @ 100 mls/hr IVPB Q24H [facility] Last Admin: 10/03/17 10:29 Dose: 100 mls/hr Ferric Sodium Gluconate Complex 125 mg/ Sodium Chloride 110 mls @ 110 mls/hr IVPB DAILY [facility] Stop: 10/08/17 10:01 Last Admin: 10/03/17 12:46 Dose: 110 mls/hr Oxycodone/Acetaminophen (Percocet 5/325 Mg Tab) 1 tab PO Q4H PRN PRN Reason: Pain, moderate (4-7) Stop: 10/05/17 15:51 Tamsulosin HCl (Flomax) 0.4 mg PO DAILY [facility] Last Admin: 10/03/17 10:30 Dose: 0.4 mg Vitamin B Complex/Vit C/Folic Acid (Nephro-Aleksandra) 1 tab PO DAILY [facility] Last Admin: 10/03/17 10:30 Dose: 1 tab - Labs Labs: 10/01/17 07:49 10/01/17 07:49 - Constitutional Appears: Well, Non-toxic, No Acute Distress - Head Exam Head Exam: ATRAUMATIC, NORMAL INSPECTION, NORMOCEPHALIC - Eye Exam Eye Exam: EOMI - ENT Exam ENT Exam: Mucous Membranes Moist - Cardiovascular Exam Cardiovascular Exam: absent: JVD Additional comments: Right upper chest dressing in place, clean, dry and intact. No hematoma. - GI/Abdominal Exam GI & Abdominal Exam: Soft. absent: Firm, Guarding, Rigid, Tenderness Assessment and Plan - Assessment and Plan (Free Text) Assessment: 77yo M POD2 s/p permacath placement - f/u vein mapping - Needs cardiac clearance prior to AVF placement - For Cardiac CATH today - cont medical management per medical team Further recs as per Dr. Tiago Toussaint PGY1 surgery pager: [phone]
--- NOTE | 2017-10-04 09:44 | CP.PCM.PN ---
Subjective - Date & Time of Evaluation Date of Evaluation: 10/04/17 Time of Evaluation: 09:41 - Subjective Subjective: Tolerated dialysis well 10/03- UF 2000ml Awaiting cardiac cath today- will likely eventually need PCI Less dyspnea post dialysis Still with moderate orthopnea, poor appetite No more CPs No noted repeat VT On IV FE, ESAs, On rx for UTI Objective - Vital Signs/Intake and Output Vital Signs (last 24 hours): Temp Pulse Resp BP Pulse Ox 98.0 F 83 20 100/61 95 10/03/17 23:25 10/04/17 04:17 10/03/17 23:25 10/03/17 23:25 10/03/17 23:25 Intake and Output: 10/04/17 10/04/17 06:59 18:59 Intake Total 240 Output Total 375 Balance -135 - Medications Medications: Current Medications Acetaminophen (Tylenol 325mg Tab) 650 mg PO Q4 PRN PRN Reason: Pain, moderate (4-7) Amiodarone HCl (Cordarone) 400 mg PO BID [facility] Last Admin: 10/03/17 17:46 Dose: Not Given Calcitriol (Rocaltrol) 0.5 mcg PO DAILY [facility] Last Admin: 10/03/17 10:30 Dose: 0.5 mcg Calcium Acetate (Phoslo) 667 mg PO TIDCC [facility] Last Admin: 10/03/17 17:47 Dose: Not Given Epoetin Pepe (Procrit) 10,000 unit IV [facility] [place] Famotidine (Pepcid) 20 mg PO DAILY [facility] Last Admin: 10/03/17 10:30 Dose: 20 mg Ceftriaxone Sodium 1 gm/ (Dextrose) 50 mls @ 100 mls/hr IVPB Q24H [facility] Last Admin: 10/03/17 10:29 Dose: 100 mls/hr Ferric Sodium Gluconate Complex 125 mg/ Sodium Chloride 110 mls @ 110 mls/hr IVPB DAILY [facility] Stop: 10/08/17 10:01 Last Admin: 10/03/17 12:46 Dose: 110 mls/hr Oxycodone/Acetaminophen (Percocet 5/325 Mg Tab) 1 tab PO Q4H PRN PRN Reason: Pain, moderate (4-7) Stop: 10/05/17 15:51 Tamsulosin HCl (Flomax) 0.4 mg PO DAILY [facility] Last Admin: 10/03/17 10:30 Dose: 0.4 mg Vitamin B Complex/Vit C/Folic Acid (Nephro-Aleksandra) 1 tab PO DAILY [facility] Last Admin: 10/03/17 10:30 Dose: 1 tab - Labs Labs: 10/01/17 07:49 10/01/17 07:49 - Constitutional Appears: No Acute Distress, Cachectic, Chronically Ill - Head Exam Head Exam: ATRAUMATIC, NORMAL INSPECTION - Eye Exam Eye Exam: EOMI, Normal appearance - Neck Exam Neck Exam: Full ROM. absent: Normal Inspection - Respiratory Exam Respiratory Exam: Clear to Ausculation Bilateral, NORMAL BREATHING PATTERN - Cardiovascular Exam Cardiovascular Exam: REGULAR RHYTHM, +S1 - GI/Abdominal Exam GI & Abdominal Exam: Soft. absent: Tenderness - Extremities Exam Extremities Exam: Normal Inspection. absent: Tenderness - Neurological Exam Neurological Exam: Awake, CN II-XII Intact - Skin Skin Exam: Dry, Warm Assessment and Plan (1) CKD (chronic kidney disease) stage 5, GFR less than 15 ml/min Status: Acute (2) Acute urinary retention Status: Acute (3) Obstructed Beck catheter Status: Acute (4) Cardiomyopathy Status: Acute (5) Hepatitis C antibody positive in blood Status: Acute (6) VRE (vancomycin resistant enterococcus) culture positive Status: Acute (7) ESRD (end stage renal disease) on dialysis Status: Acute (8) Hepatitis C antibody test positive Status: Acute - Assessment and Plan (Free Text) Plan: Dialysis MWF with adequate UF recheck labs await cardiac cath, possible PCI Rx UTI Same other meds When cleared will need AV access
[2017-10-04] MEDS ORDERED: Ferric Sodium Gluconat Complex 62.5 mg/5 ml Vial ONE (10:04)
[2017-10-04] MEDS: Multivitamin Vitamin B Complex (Nephro-Vite) Tab PO SCH ×2 (10:29→10:30)
[2017-10-04] MEDS: Ferric Sodium Gluconat Complex 125 MG in Sodium Chloride 0.9% 100 ML IVPB SCH (11:28)
[2017-10-04] MEDS ORDERED: Midazolam 2 MG/2 ML VIAL ONE (12:37)
--- NOTE | 2017-10-04 13:37 | CP.PCM.PN ---
Subjective - Date & Time of Evaluation Date of Evaluation: 10/04/17 Time of Evaluation: 13:35 - Subjective Subjective: Patient s/p cath 1. L Main: Patent 2. LAD/Diags: Mid LAD 30% 3. L Cx: Mid 60% 4. RCA: Dominant and patent 5. EF: 15%, Dialated cardiomyopathy. EDP 25 A/P: Non ischemic CMP with EF of 15% Plan LifeVest/AICD Ameen on case Objective - Vital Signs/Intake and Output Vital Signs (last 24 hours): Temp Pulse Resp BP Pulse Ox 98.0 F 83 20 100/61 95 10/03/17 23:25 10/04/17 04:17 10/03/17 23:25 10/03/17 23:25 10/03/17 23:25 Intake and Output: 10/04/17 10/04/17 06:59 18:59 Intake Total 240 Output Total 375 Balance -135 - Medications Medications: Current Medications Acetaminophen (Tylenol 325mg Tab) 650 mg PO Q4 PRN PRN Reason: Pain, moderate (4-7) Amiodarone HCl (Cordarone) 400 mg PO BID [facility] Last Admin: 10/04/17 10:29 Dose: Not Given Calcitriol (Rocaltrol) 0.5 mcg PO DAILY [facility] Last Admin: 10/04/17 10:30 Dose: Not Given Calcium Acetate (Phoslo) 667 mg PO TIDCC [facility] Last Admin: 10/04/17 12:06 Dose: Not Given Epoetin Pepe (Procrit) 10,000 unit IV [facility] [place] Famotidine (Pepcid) 20 mg PO DAILY [facility] Last Admin: 10/04/17 10:30 Dose: Not Given Ceftriaxone Sodium 1 gm/ (Dextrose) 50 mls @ 100 mls/hr IVPB Q24H [facility] Last Admin: 10/04/17 10:29 Dose: 100 mls/hr Ferric Sodium Gluconate Complex 125 mg/ Sodium Chloride 110 mls @ 110 mls/hr IVPB DAILY [facility] Stop: 10/08/17 10:01 Last Admin: 10/04/17 11:28 Dose: Not Given Oxycodone/Acetaminophen (Percocet 5/325 Mg Tab) 1 tab PO Q4H PRN PRN Reason: Pain, moderate (4-7) Stop: 10/05/17 15:51 Tamsulosin HCl (Flomax) 0.4 mg PO DAILY [facility] Last Admin: 10/04/17 10:29 Dose: Not Given Vitamin B Complex/Vit C/Folic Acid (Nephro-Aleksandra) 1 tab PO DAILY [facility] Last Admin: 10/04/17 10:29 Dose: Not Given - Labs Labs: 10/01/17 07:49 10/01/17 07:49
--- NOTE | 2017-10-04 13:58 | CP.PCM.PN ---
Subjective - Date & Time of Evaluation Date of Evaluation: 10/04/17 Time of Evaluation: 13:56 - Subjective Subjective: CHIEF COMPLAINTS TODAY : SOB ON MINIMAL EXERTION S/P CATH : NON SIGNIFICANT CAD WITH EF 15%, ROS. HEENT : N. Resp : No cough, wheezing ,pleuritic CP ,or hemoptysis Cardio : No anginal CP, GI : No abd.pain, n/v ,diarrhea or GI bleeding . 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 Musculoskel : No joint swelling , Derm : No rash Psych : Normal affect. Ext : No swelling ,calf pain PE. Pt. is alert awake in no distress. V.S As noted in the chart Head ,ear nose,throat and eyes : Normal. Neck : Supple with normal carotids. Lungs: Clear air entry. RONCHI Heart : S1 & S2 normal with S4. No murmur. Abd : Soft non tender with normal bowel sounds. Neuro : Moves all ext. with no localized deficit. Ext : + edema with intact pulses.Non tender calves Derm : No rashes or decubitus ulcer. LABS/RADIOLOGY: URINE VRE ASSESSMENT/PLAN : CONT DIALYSIS IV AB NON ISCHEMIC CARDIOMYOPATHY , WILL NEED AICD , ON VEST NOW Objective - Vital Signs/Intake and Output Vital Signs (last 24 hours): Temp Pulse Resp BP Pulse Ox 98.0 F 83 20 100/61 95 10/03/17 23:25 10/04/17 04:17 10/03/17 23:25 10/03/17 23:25 10/03/17 23:25 Intake and Output: 10/04/17 10/04/17 11:59 23:59 Output Total 100 Balance -100 - Medications Medications: Current Medications Acetaminophen (Tylenol 325mg Tab) 650 mg PO Q4 PRN PRN Reason: Pain, moderate (4-7) Amiodarone HCl (Cordarone) 400 mg PO BID [facility] Last Admin: 10/04/17 10:29 Dose: Not Given Calcitriol (Rocaltrol) 0.5 mcg PO DAILY [facility] Last Admin: 10/04/17 10:30 Dose: Not Given Calcium Acetate (Phoslo) 667 mg PO TIDCC [facility] Last Admin: 10/04/17 12:06 Dose: Not Given Epoetin Pepe (Procrit) 10,000 unit IV [facility] [place] Famotidine (Pepcid) 20 mg PO DAILY [facility] Last Admin: 10/04/17 10:30 Dose: Not Given Ceftriaxone Sodium 1 gm/ (Dextrose) 50 mls @ 100 mls/hr IVPB Q24H [facility] Last Admin: 10/04/17 10:29 Dose: 100 mls/hr Ferric Sodium Gluconate Complex 125 mg/ Sodium Chloride 110 mls @ 110 mls/hr IVPB DAILY [facility] Stop: 10/08/17 10:01 Last Admin: 10/04/17 11:28 Dose: Not Given Oxycodone/Acetaminophen (Percocet 5/325 Mg Tab) 1 tab PO Q4H PRN PRN Reason: Pain, moderate (4-7) Stop: 10/05/17 15:51 Tamsulosin HCl (Flomax) 0.4 mg PO DAILY [facility] Last Admin: 10/04/17 10:29 Dose: Not Given Vitamin B Complex/Vit C/Folic Acid (Nephro-Aleksandra) 1 tab PO DAILY [facility] Last Admin: 10/04/17 10:29 Dose: Not Given - Labs Labs: 10/01/17 07:49 10/01/17 07:49
--- NOTE | 2017-10-04 20:41 | CP.PCM.PN ---
Subjective - Date & Time of Evaluation Date of Evaluation: 10/04/17 Time of Evaluation: 20:41 - Subjective Subjective: CHIEF COMPLAINTS TODAY : afebrile S/P CATH : NON SIGNIFICANT CAD WITH EF 15%, states breathing is much better after hemodialysis. ROS. HEENT : N. Resp : No cough, wheezing ,pleuritic CP ,or hemoptysis Cardio : No anginal CP, GI : No abd.pain, n/v ,diarrhea or GI bleeding . 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 Musculoskel : No joint swelling , Derm : No rash Psych : Normal affect. Ext : No swelling ,calf pain PE. Pt. is alert awake in no distress. V.S As noted in the chart Head ,ear nose,throat and eyes : Normal. Neck : Supple with normal carotids. Lungs: Clear air entry. RONCHI Heart : S1 & S2 normal with S4. No murmur. Abd : Soft non tender with normal bowel sounds. Neuro : Moves all ext. with no localized deficit. Ext : + edema with intact pulses.Non tender calves Derm : No rashes or decubitus ulcer. LABS/RADIOLOGY: urine culture repeat; PSEUDOMONAS AERUGINOSA -s-cefepime. Labs reviewed. ASSESSMENT; *urosepsis-pseudomonas aeruginosa. * acute urinary retention s/p Foleys * BPH. 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 * acute renal failure s/p RT.IJ HD cathether 10/02/17. On HD. *Hepatitis C+ve /PLAN : DC IV ceftriaxone. Start IV cefepime 1 g once a day daily for better pseudomonal coverage... TO CLEAR THE URINE INFECTION. Will check serology Trypanasoma Cruzi. Patient for AICD/LifeVest as per cardiology. Hemodialysis as per renal. Dr. Wright on the case FOR AICD Objective - Vital Signs/Intake and Output Vital Signs (last 24 hours): Temp Pulse Resp BP Pulse Ox 97.7 F 84 18 90/38 L 95 10/04/17 15:10 10/04/17 15:10 10/04/17 15:10 10/04/17 15:10 10/04/17 15:10 - Medications Medications: Current Medications Acetaminophen (Tylenol 325mg Tab) 650 mg PO Q4 PRN PRN Reason: Pain, moderate (4-7) Amiodarone HCl (Cordarone) 400 mg PO BID [facility] Last Admin: 10/04/17 18:16 Dose: 400 mg Calcitriol (Rocaltrol) 0.5 mcg PO DAILY [facility] Last Admin: 10/04/17 10:30 Dose: Not Given Calcium Acetate (Phoslo) 667 mg PO TIDCC [facility] Last Admin: 10/04/17 17:55 Dose: 667 mg Epoetin Pepe (Procrit) 10,000 unit IV [facility] [place] Famotidine (Pepcid) 20 mg PO DAILY [facility] Last Admin: 10/04/17 10:30 Dose: Not Given Ceftriaxone Sodium 1 gm/ (Dextrose) 50 mls @ 100 mls/hr IVPB Q24H [facility] Last Admin: 10/04/17 10:29 Dose: 100 mls/hr Ferric Sodium Gluconate Complex 125 mg/ Sodium Chloride 110 mls @ 110 mls/hr IVPB DAILY [facility] Stop: 10/08/17 10:01 Last Admin: 10/04/17 11:28 Dose: Not Given Oxycodone/Acetaminophen (Percocet 5/325 Mg Tab) 1 tab PO Q4H PRN PRN Reason: Pain, moderate (4-7) Stop: 10/05/17 15:51 Tamsulosin HCl (Flomax) 0.4 mg PO DAILY [facility] Last Admin: 10/04/17 10:29 Dose: Not Given Vitamin B Complex/Vit C/Folic Acid (Nephro-Aleksandra) 1 tab PO DAILY [facility] Last Admin: 10/04/17 10:29 Dose: Not Given - Labs Labs: 10/01/17 07:49 10/01/17 07:49 Assessment and Plan (1) UTI (urinary tract infection) Status: Acute (2) Acute urinary retention Status: Acute (3) Obstructed Beck catheter Status: Acute (4) Renal failure, acute on chronic Status: Acute (5) Cachexia Status: Acute (6) Cardiomyopathy Status: Acute (7) Benign prostatic hyperplasia Status: Acute (8) Hepatitis C antibody test positive Status: Acute
[2017-10-05 07:56] LABS: HEMOGLOBIN 8.9 g/dL (12.0-18.0); MEAN CELL VOLUME 94.3 fL (80.0-94.0); MEAN CORPUSCULAR HGB CONC 31.8 g/dL (33.0-37.0); MEAN PLATELET VOLUME 8.7 fL (7.2-11.7); RBC 2.95 Mil/uL (4.40-5.90); WHITE BLOOD COUNT 7.4 K/uL (4.8-10.8)
[2017-10-05 08:08] LABS: ALB/GLOB RATIO 0.7 (1.0-2.1); CALCIUM 7.4 mg/dl (8.6-10.4)
[2017-10-05] MEDS: Epoetin Alfa 10,000 unit/ml Dialysis IV SCH (11:35)
[2017-10-05] MEDS: Multivitamin Vitamin B Complex (Nephro-Vite) Tab PO SCH (13:20)
[2017-10-05] MEDS: Cefepime IV 1 gm in Dextrose 1 GM/50 ML BAG IVPB SCH (13:21)
--- NOTE | 2017-10-05 13:28 | CP.PCM.PN ---
Subjective - Date & Time of Evaluation Date of Evaluation: 10/05/17 Time of Evaluation: 13:25 - Subjective Subjective: s/p dialysis now- UF 1500ml very weak- claims he cannot tolerate 3 hrs of dialysis BP low- has chronic hypotension Hg dropped- on EPO/ ferrlecit results of cath noted- EF very reduced and will ICD/lifevest IV ABs changed for UTI pseudomonas coverage not dyspneic, no CPs, fevers, chills, nausea Objective - Vital Signs/Intake and Output Vital Signs (last 24 hours): Temp Pulse Resp BP Pulse Ox 97.6 F 87 18 86/56 L 95 10/05/17 09:15 10/05/17 09:15 10/05/17 09:15 10/05/17 12:20 10/05/17 08:21 Intake and Output: 10/05/17 10/05/17 06:59 18:59 Intake Total 480 Output Total 500 Balance -20 - Medications Medications: Current Medications Acetaminophen (Tylenol 325mg Tab) 650 mg PO Q4 PRN PRN Reason: Pain, moderate (4-7) Amiodarone HCl (Cordarone) 400 mg PO BID [facility] Last Admin: 10/04/17 18:16 Dose: 400 mg Calcitriol (Rocaltrol) 0.5 mcg PO DAILY [facility] Last Admin: 10/04/17 10:30 Dose: Not Given Calcium Acetate (Phoslo) 667 mg PO TIDCC [facility] Last Admin: 10/05/17 08:52 Dose: 667 mg Epoetin Pepe (Procrit) 10,000 unit IV MWF [facility] Last Admin: 10/05/17 11:35 Dose: 10,000 unit Famotidine (Pepcid) 20 mg PO DAILY [facility] Last Admin: 10/04/17 10:30 Dose: Not Given Ferric Sodium Gluconate Complex 125 mg/ Sodium Chloride 110 mls @ 110 mls/hr IVPB DAILY [facility] Stop: 10/08/17 10:01 Last Admin: 10/04/17 11:28 Dose: Not Given Cefepime HCl (Maxipime Iv 1 Gm Premix) 1 gm in 50 mls @ 100 mls/hr IVPB Q24H [facility] Oxycodone/Acetaminophen (Percocet 5/325 Mg Tab) 1 tab PO Q4H PRN PRN Reason: Pain, moderate (4-7) Stop: 10/05/17 15:51 Tamsulosin HCl (Flomax) 0.4 mg PO DAILY [facility] Last Admin: 10/04/17 10:29 Dose: Not Given Vitamin B Complex/Vit C/Folic Acid (Nephro-Aleksandra) 1 tab PO DAILY [facility] Last Admin: 10/04/17 10:29 Dose: Not Given - Labs Labs: 10/05/17 07:39 10/05/17 07:39 - Constitutional Appears: No Acute Distress, Chronically Ill - Head Exam Head Exam: ATRAUMATIC, NORMAL INSPECTION - Eye Exam Eye Exam: EOMI, PERRL - Neck Exam Neck Exam: Normal Inspection. absent: Tenderness - Respiratory Exam Respiratory Exam: Clear to Ausculation Bilateral, NORMAL BREATHING PATTERN - Cardiovascular Exam Cardiovascular Exam: REGULAR RHYTHM, +S1 - GI/Abdominal Exam GI & Abdominal Exam: Soft. absent: Tenderness - Extremities Exam Extremities Exam: Normal Inspection. absent: Tenderness - Neurological Exam Neurological Exam: Alert, CN II-XII Intact - Skin Skin Exam: Dry, Warm Assessment and Plan (1) CKD (chronic kidney disease) stage 5, GFR less than 15 ml/min Status: Acute (2) Acute urinary retention Status: Acute (3) Obstructed Beck catheter Status: Acute (4) Cardiomyopathy Status: Acute (5) Hepatitis C antibody positive in blood Status: Acute (6) VRE (vancomycin resistant enterococcus) culture positive Status: Acute (7) ESRD (end stage renal disease) on dialysis Status: Acute (8) Hepatitis C antibody test positive Status: Acute - Assessment and Plan (Free Text) Plan: Dialysis MWF Decrease UF goal and time on machine for better tolerance ICD IV cefepime Add midodrine Consider AV access now- no significant CAD
--- NOTE | 2017-10-05 13:53 | CP.PCM.PN ---
Subjective - Date & Time of Evaluation Date of Evaluation: 10/05/17 Time of Evaluation: 13:52 - Subjective Subjective: CHIEF COMPLAINTS TODAY : SOB ON MINIMAL EXERTION S/P CATH : NON SIGNIFICANT CAD WITH EF 15%, LOW BP TODAY ROS. HEENT : N. Resp : No cough, wheezing ,pleuritic CP ,or hemoptysis Cardio : No anginal CP, GI : No abd.pain, n/v ,diarrhea or GI bleeding . 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 Musculoskel : No joint swelling , Derm : No rash Psych : Normal affect. Ext : No swelling ,calf pain PE. Pt. is alert awake in no distress. V.S As noted in the chart Head ,ear nose,throat and eyes : Normal. Neck : Supple with normal carotids. Lungs: Clear air entry. RONCHI Heart : S1 & S2 normal with S4. No murmur. Abd : Soft non tender with normal bowel sounds. Neuro : Moves all ext. with no localized deficit. Ext : + edema with intact pulses.Non tender calves Derm : No rashes or decubitus ulcer. LABS/RADIOLOGY: URINE VRE ASSESSMENT/PLAN : CONT DIALYSIS IV AB NON ISCHEMIC CARDIOMYOPATHY , WILL NEED AICD , ON VEST NOW MONITOR BP Objective - Vital Signs/Intake and Output Vital Signs (last 24 hours): Temp Pulse Resp BP Pulse Ox 97.6 F 87 18 86/56 L 95 10/05/17 09:15 10/05/17 09:15 10/05/17 09:15 10/05/17 12:20 10/05/17 08:21 Intake and Output: 10/05/17 10/05/17 11:59 23:59 Output Total 150 Balance -150 - Medications Medications: Current Medications Acetaminophen (Tylenol 325mg Tab) 650 mg PO Q4 PRN PRN Reason: Pain, moderate (4-7) Amiodarone HCl (Cordarone) 400 mg PO BID [facility] Last Admin: 10/05/17 13:20 Dose: 400 mg Calcitriol (Rocaltrol) 0.5 mcg PO DAILY [facility] Last Admin: 10/05/17 13:20 Dose: 0.5 mcg Calcium Acetate (Phoslo) 667 mg PO TIDCC [facility] Last Admin: 10/05/17 13:21 Dose: 667 mg Epoetin Pepe (Procrit) 10,000 unit IV MWF [facility] Last Admin: 10/05/17 11:35 Dose: 10,000 unit Famotidine (Pepcid) 20 mg PO DAILY [facility] Last Admin: 10/05/17 13:21 Dose: 20 mg Ferric Sodium Gluconate Complex 125 mg/ Sodium Chloride 110 mls @ 110 mls/hr IVPB DAILY [facility] Stop: 10/08/17 10:01 Last Admin: 10/04/17 11:28 Dose: Not Given Cefepime HCl (Maxipime Iv 1 Gm Premix) 1 gm in 50 mls @ 100 mls/hr IVPB Q24H [facility] Last Admin: 10/05/17 13:21 Dose: 100 mls/hr Midodrine (Proamatine) 2.5 mg PO TID [facility] Oxycodone/Acetaminophen (Percocet 5/325 Mg Tab) 1 tab PO Q4H PRN PRN Reason: Pain, moderate (4-7) Stop: 10/05/17 15:51 Tamsulosin HCl (Flomax) 0.4 mg PO DAILY [facility] Last Admin: 10/05/17 13:21 Dose: 0.4 mg Vitamin B Complex/Vit C/Folic Acid (Nephro-Aleksandra) 1 tab PO DAILY [facility] Last Admin: 10/05/17 13:20 Dose: 1 tab - Labs Labs: 10/05/17 07:39 10/05/17 07:39
[2017-10-05] MEDS: Ferric Sodium Gluconat Complex 125 MG in Sodium Chloride 0.9% 100 ML IVPB SCH (14:34)
--- NOTE | 2017-10-05 22:39 | CP.PCM.PN ---
Subjective - Date & Time of Evaluation Date of Evaluation: 10/05/17 Time of Evaluation: 22:39 - Subjective Subjective: CHIEF COMPLAINTS TODAY : afebrile S/P CATH : NON SIGNIFICANT CAD WITH EF 15%, FEELS WEAK BP LOW ROS. HEENT : N. Resp : No cough, wheezing ,pleuritic CP ,or hemoptysis Cardio : No anginal CP, GI : No abd.pain, n/v ,diarrhea or GI bleeding . 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 Musculoskel : No joint swelling , Derm : No rash Psych : Normal affect. Ext : No swelling ,calf pain PE. Pt. is alert awake in no distress. V.S As noted in the chart Head ,ear nose,throat and eyes : Normal. Neck : Supple with normal carotids. Lungs: Clear air entry. RONCHI Heart : S1 & S2 normal with S4. No murmur. Abd : Soft non tender with normal bowel sounds. Neuro : Moves all ext. with no localized deficit. Ext : + edema with intact pulses.Non tender calves Derm : HYPERPIGMENTATION B/L LE LABS/RADIOLOGY: urine culture repeat; PSEUDOMONAS AERUGINOSA -s-cefepime. Labs reviewed. ASSESSMENT; *urosepsis-pseudomonas aeruginosa. * acute urinary retention s/p Foleys * BPH. 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 * acute renal failure s/p RT.IJ HD cathether 10/02/17. On HD. *Hepatitis C+ve /PLAN : SERUM CORTISOL LEVEL ON IV cefepime 1 g once a day daily for better pseudomonal coverage..10/04/17. TO CLEAR THE URINE INFECTION. Serology Trypanasoma Cruzi. Patient for AICD/LifeVest as per cardiology. Hemodialysis as per renal. Dr. Wright on the case FOR AICD Objective - Vital Signs/Intake and Output Vital Signs (last 24 hours): Temp Pulse Resp BP Pulse Ox 98.3 F 82 94 H 89/38 L 95 10/05/17 16:00 10/05/17 16:00 10/05/17 16:00 10/05/17 16:00 10/05/17 08:21 - Medications Medications: Current Medications Acetaminophen (Tylenol 325mg Tab) 650 mg PO Q4 PRN PRN Reason: Pain, moderate (4-7) Amiodarone HCl (Cordarone) 400 mg PO BID [facility] Last Admin: 10/05/17 17:40 Dose: 400 mg Calcitriol (Rocaltrol) 0.5 mcg PO DAILY [facility] Last Admin: 10/05/17 13:20 Dose: 0.5 mcg Calcium Acetate (Phoslo) 667 mg PO TIDCC [facility] Last Admin: 10/05/17 17:41 Dose: 667 mg Epoetin Pepe (Procrit) 10,000 unit IV MWF [facility] Last Admin: 10/05/17 11:35 Dose: 10,000 unit Famotidine (Pepcid) 20 mg PO DAILY [facility] Last Admin: 10/05/17 13:21 Dose: 20 mg Ferric Sodium Gluconate Complex 125 mg/ Sodium Chloride 110 mls @ 110 mls/hr IVPB DAILY [facility] Stop: 10/08/17 10:01 Last Admin: 10/05/17 14:34 Dose: 110 mls/hr Cefepime HCl (Maxipime Iv 1 Gm Premix) 1 gm in 50 mls @ 100 mls/hr IVPB Q24H [facility] Last Admin: 10/05/17 13:21 Dose: 100 mls/hr Midodrine (Proamatine) 2.5 mg PO TID [facility] Last Admin: 10/05/17 17:41 Dose: 2.5 mg Tamsulosin HCl (Flomax) 0.4 mg PO DAILY [facility] Last Admin: 10/05/17 13:21 Dose: 0.4 mg Vitamin B Complex/Vit C/Folic Acid (Nephro-Aleksandra) 1 tab PO DAILY [facility] Last Admin: 10/05/17 13:20 Dose: 1 tab - Labs Labs: 10/05/17 07:39 10/05/17 07:39 Assessment and Plan (1) UTI (urinary tract infection) Status: Acute (2) Acute urinary retention Status: Acute (3) Obstructed Beck catheter Status: Acute (4) Renal failure, acute on chronic Status: Acute (5) Cachexia Status: Acute (6) Cardiomyopathy Status: Acute (7) Benign prostatic hyperplasia Status: Acute (8) Hepatitis C antibody test positive Status: Acute
--- NOTE | 2017-10-06 06:37 | CP.PCM.PN ---
Subjective - Date & Time of Evaluation Date of Evaluation: 10/06/17 Time of Evaluation: 06:36 - Subjective Subjective: Vascular Surgery Progress Note for Dr. Ordoñez This patient was seen and examined this AM at bedside no acute events to report overnight. The patient denies any chest pain fevers chills or SOB. Objective - Vital Signs/Intake and Output Vital Signs (last 24 hours): Temp Pulse Resp BP Pulse Ox 98 F 76 20 101/59 L 95 10/06/17 03:11 10/06/17 03:53 10/06/17 03:11 10/06/17 03:11 10/06/17 03:11 Intake and Output: 10/05/17 10/06/17 18:59 06:59 Intake Total 240 Output Total 500 Balance -260 - Medications Medications: Current Medications Acetaminophen (Tylenol 325mg Tab) 650 mg PO Q4 PRN PRN Reason: Pain, moderate (4-7) Amiodarone HCl (Cordarone) 400 mg PO BID [facility] Last Admin: 10/05/17 17:40 Dose: 400 mg Calcitriol (Rocaltrol) 0.5 mcg PO DAILY [facility] Last Admin: 10/05/17 13:20 Dose: 0.5 mcg Calcium Acetate (Phoslo) 667 mg PO TIDCC [facility] Last Admin: 10/05/17 17:41 Dose: 667 mg Epoetin Pepe (Procrit) 10,000 unit IV MWF [facility] Last Admin: 10/05/17 11:35 Dose: 10,000 unit Famotidine (Pepcid) 20 mg PO DAILY [facility] Last Admin: 10/05/17 13:21 Dose: 20 mg Ferric Sodium Gluconate Complex 125 mg/ Sodium Chloride 110 mls @ 110 mls/hr IVPB DAILY [facility] Stop: 10/08/17 10:01 Last Admin: 10/05/17 14:34 Dose: 110 mls/hr Cefepime HCl (Maxipime Iv 1 Gm Premix) 1 gm in 50 mls @ 100 mls/hr IVPB Q24H [facility] Last Admin: 10/05/17 13:21 Dose: 100 mls/hr Midodrine (Proamatine) 2.5 mg PO TID [facility] Last Admin: 10/05/17 17:41 Dose: 2.5 mg Tamsulosin HCl (Flomax) 0.4 mg PO DAILY [facility] Last Admin: 10/05/17 13:21 Dose: 0.4 mg Vitamin B Complex/Vit C/Folic Acid (Nephro-Aleksandra) 1 tab PO DAILY [facility] Last Admin: 10/05/17 13:20 Dose: 1 tab - Labs Labs: 10/05/17 07:39 10/05/17 07:39
--- NOTE | 2017-10-06 09:18 | CP.PCM.PN ---
Subjective - Date & Time of Evaluation Date of Evaluation: 10/06/17 Time of Evaluation: 09:15 - Subjective Subjective: afebrile no new chems awake alert comfortable ate most of breakfast dizziness with dialysis 10/05 ROS no dizziness today no chest pain sob abd pain nausea vomiting diarrhea Objective - Vital Signs/Intake and Output Vital Signs (last 24 hours): Temp Pulse Resp BP Pulse Ox 98 F 79 20 101/59 L 95 10/06/17 03:11 10/06/17 08:23 10/06/17 03:11 10/06/17 03:11 10/06/17 03:11 Intake and Output: 10/06/17 10/06/17 06:59 18:59 Intake Total 240 Output Total 500 Balance -260 - Medications Medications: Current Medications Acetaminophen (Tylenol 325mg Tab) 650 mg PO Q4 PRN PRN Reason: Pain, moderate (4-7) Amiodarone HCl (Cordarone) 400 mg PO BID [facility] Last Admin: 10/05/17 17:40 Dose: 400 mg Calcitriol (Rocaltrol) 0.5 mcg PO DAILY [facility] Last Admin: 10/05/17 13:20 Dose: 0.5 mcg Calcium Acetate (Phoslo) 667 mg PO TIDCC [facility] Last Admin: 10/06/17 08:02 Dose: 667 mg Epoetin Pepe (Procrit) 10,000 unit IV MWF [facility] Last Admin: 10/05/17 11:35 Dose: 10,000 unit Famotidine (Pepcid) 20 mg PO DAILY [facility] Last Admin: 10/05/17 13:21 Dose: 20 mg Ferric Sodium Gluconate Complex 125 mg/ Sodium Chloride 110 mls @ 110 mls/hr IVPB DAILY [facility] Stop: 10/08/17 10:01 Last Admin: 10/05/17 14:34 Dose: 110 mls/hr Cefepime HCl (Maxipime Iv 1 Gm Premix) 1 gm in 50 mls @ 100 mls/hr IVPB Q24H [facility] Last Admin: 10/05/17 13:21 Dose: 100 mls/hr Midodrine (Proamatine) 2.5 mg PO TID [facility] Last Admin: 10/05/17 17:41 Dose: 2.5 mg Tamsulosin HCl (Flomax) 0.4 mg PO DAILY [facility] Last Admin: 10/05/17 13:21 Dose: 0.4 mg Vitamin B Complex/Vit C/Folic Acid (Nephro-Aleksandra) 1 tab PO DAILY [facility] Last Admin: 10/05/17 13:20 Dose: 1 tab - Labs Labs: 10/05/17 07:39 10/05/17 07:39 - Constitutional Appears: Well, No Acute Distress - ENT Exam ENT Exam: Mucous Membranes Moist - Respiratory Exam Respiratory Exam: Clear to Ausculation Bilateral. absent: Accessory Muscle Use - Cardiovascular Exam Cardiovascular Exam: REGULAR RHYTHM - GI/Abdominal Exam GI & Abdominal Exam: Soft. absent: Distended, Tenderness - Extremities Exam Extremities Exam: absent: Calf Tenderness - Back Exam Back Exam: absent: CVA tenderness (L), CVA tenderness (R) - Psychiatric Exam Psychiatric exam: absent: Agitated, Anxious, Depressed Assessment and Plan (1) Benign prostatic hyperplasia Status: Acute (2) ESRD (end stage renal disease) on dialysis Assessment & Plan: dialysis 10/08 schedule reduce ultrfiltrtrion Status: Acute (3) Hepatitis C antibody test positive Status: Acute (4) Cardiomyopathy Status: Acute (5) Urinary retention due to benign prostatic hyperplasia Status: Acute
[2017-10-06] MEDS: Multivitamin Vitamin B Complex (Nephro-Vite) Tab PO SCH (09:40)
[2017-10-06] MEDS: Ferric Sodium Gluconat Complex 125 MG in Sodium Chloride 0.9% 100 ML IVPB SCH (09:42)
[2017-10-06] MEDS: Cefepime IV 1 gm in Dextrose 1 GM/50 ML BAG IVPB SCH (11:58)
--- NOTE | 2017-10-06 13:05 | CP.PCM.PN ---
Subjective - Date & Time of Evaluation Date of Evaluation: 10/06/17 Time of Evaluation: 13:04 - Subjective Subjective: CHIEF COMPLAINTS TODAY : SOB LESS S/P CATH : NON SIGNIFICANT CAD WITH EF 15%, ROS. HEENT : N. Resp : No cough, wheezing ,pleuritic CP ,or hemoptysis Cardio : No anginal CP, GI : No abd.pain, n/v ,diarrhea or GI bleeding . 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 Musculoskel : No joint swelling , Derm : No rash Psych : Normal affect. Ext : No swelling ,calf pain PE. Pt. is alert awake in no distress. V.S As noted in the chart Head ,ear nose,throat and eyes : Normal. Neck : Supple with normal carotids. Lungs: Clear air entry. RONCHI Heart : S1 & S2 normal with S4. No murmur. Abd : Soft non tender with normal bowel sounds. Neuro : Moves all ext. with no localized deficit. Ext : + edema with intact pulses.Non tender calves Derm : No rashes or decubitus ulcer. LABS/RADIOLOGY: URINE VRE ASSESSMENT/PLAN : CONT DIALYSIS IV AB NON ISCHEMIC CARDIOMYOPATHY , WILL NEED AICD , ON VEST NOW Objective - Vital Signs/Intake and Output Vital Signs (last 24 hours): Temp Pulse Resp BP Pulse Ox 98 F 79 20 101/59 L 95 10/06/17 03:11 10/06/17 08:23 10/06/17 03:11 10/06/17 03:11 10/06/17 03:11 Intake and Output: 10/06/17 10/06/17 11:59 23:59 Output Total 300 Balance -300 - Medications Medications: Current Medications Acetaminophen (Tylenol 325mg Tab) 650 mg PO Q4 PRN PRN Reason: Pain, moderate (4-7) Amiodarone HCl (Cordarone) 400 mg PO BID [facility] Last Admin: 10/06/17 09:41 Dose: 400 mg Calcitriol (Rocaltrol) 0.5 mcg PO DAILY [facility] Last Admin: 10/06/17 09:40 Dose: 0.5 mcg Calcium Acetate (Phoslo) 667 mg PO TIDCC [facility] Last Admin: 10/06/17 12:39 Dose: 667 mg Epoetin Pepe (Procrit) 10,000 unit IV MWF [facility] Last Admin: 10/05/17 11:35 Dose: 10,000 unit Famotidine (Pepcid) 20 mg PO DAILY [facility] Last Admin: 10/06/17 09:41 Dose: 20 mg Ferric Sodium Gluconate Complex 125 mg/ Sodium Chloride 110 mls @ 110 mls/hr IVPB DAILY [facility] Stop: 10/08/17 10:01 Last Admin: 10/06/17 09:42 Dose: 110 mls/hr Cefepime HCl (Maxipime Iv 1 Gm Premix) 1 gm in 50 mls @ 100 mls/hr IVPB Q24H [facility] Last Admin: 10/06/17 11:58 Dose: 100 mls/hr Midodrine (Proamatine) 2.5 mg PO TID [facility] Last Admin: 10/06/17 09:41 Dose: 2.5 mg Tamsulosin HCl (Flomax) 0.4 mg PO DAILY [facility] Last Admin: 10/06/17 09:41 Dose: 0.4 mg Vitamin B Complex/Vit C/Folic Acid (Nephro-Aleksandra) 1 tab PO DAILY [facility] Last Admin: 10/06/17 09:40 Dose: 1 tab - Labs Labs: 10/05/17 07:39 10/05/17 07:39
--- NOTE | 2017-10-06 19:37 | CP.PCM.PN ---
Subjective - Date & Time of Evaluation Date of Evaluation: 10/06/17 Time of Evaluation: 11:15 - Subjective Subjective: Surgery Progress note. Dr. Ordoñez Pt seen and examined at bedside. No acute events reported overnight. Patient denies any complaints. No N/V/D. No F/C. Agreeable for AVF creation on Sunday. Objective - Vital Signs/Intake and Output Vital Signs (last 24 hours): Temp Pulse Resp BP Pulse Ox 97.5 F L 78 20 93/56 L 96 10/06/17 15:19 10/06/17 15:19 10/06/17 15:19 10/06/17 15:19 10/06/17 15:19 - Medications Medications: Current Medications Acetaminophen (Tylenol 325mg Tab) 650 mg PO Q4 PRN PRN Reason: Pain, moderate (4-7) Amiodarone HCl (Cordarone) 400 mg PO BID [facility] Last Admin: 10/06/17 19:11 Dose: Not Given Calcitriol (Rocaltrol) 0.5 mcg PO DAILY [facility] Last Admin: 10/06/17 09:40 Dose: 0.5 mcg Calcium Acetate (Phoslo) 667 mg PO TIDCC [facility] Last Admin: 10/06/17 17:56 Dose: 667 mg Epoetin Pepe (Procrit) 10,000 unit IV MWF [facility] Last Admin: 10/05/17 11:35 Dose: 10,000 unit Famotidine (Pepcid) 20 mg PO DAILY [facility] Last Admin: 10/06/17 09:41 Dose: 20 mg Ferric Sodium Gluconate Complex 125 mg/ Sodium Chloride 110 mls @ 110 mls/hr IVPB DAILY [facility] Stop: 10/08/17 10:01 Last Admin: 10/06/17 09:42 Dose: 110 mls/hr Cefepime HCl (Maxipime Iv 1 Gm Premix) 1 gm in 50 mls @ 100 mls/hr IVPB Q24H [facility] Last Admin: 10/06/17 11:58 Dose: 100 mls/hr Midodrine (Proamatine) 2.5 mg PO TID [facility] Last Admin: 10/06/17 17:56 Dose: 2.5 mg Tamsulosin HCl (Flomax) 0.4 mg PO DAILY [facility] Last Admin: 10/06/17 09:41 Dose: 0.4 mg Vitamin B Complex/Vit C/Folic Acid (Nephro-Aleksandra) 1 tab PO DAILY [facility] Last Admin: 10/06/17 09:40 Dose: 1 tab - Labs Labs: 10/05/17 07:39 10/05/17 07:39 - Constitutional Appears: Non-toxic, No Acute Distress - Head Exam Head Exam: ATRAUMATIC, NORMAL INSPECTION, NORMOCEPHALIC - Eye Exam Eye Exam: EOMI, Normal appearance - ENT Exam ENT Exam: Mucous Membranes Moist - Respiratory Exam Respiratory Exam: NORMAL BREATHING PATTERN. absent: Accessory Muscle Use, Respiratory Distress - Cardiovascular Exam Cardiovascular Exam: absent: JVD - GI/Abdominal Exam GI & Abdominal Exam: Soft. absent: Distended, Firm, Guarding, Rigid, Tenderness - Extremities Exam Extremities Exam: Normal Inspection. absent: Calf Tenderness - Neurological Exam Neurological Exam: Alert, Awake, Oriented x3 - Psychiatric Exam Psychiatric exam: Normal Affect, Normal Mood - Skin Skin Exam: Dry, Intact, Normal Color, Warm Assessment and Plan - Assessment and Plan (Free Text) Assessment: 77yo M with CKD. POD 4 R IJ permacath placement. Pending AVF. - To OR for AVF on Sunday afternoon, 10/08 - Recommend Dialysis Sunday morning - Patient consented. On chart - NPO past mn Sunday, 10/07 Further recs as per Dr. Tiago Toussaint PGY1 surgery pager: [phone]
--- NOTE | 2017-10-06 20:12 | CP.PCM.PN ---
Subjective - Date & Time of Evaluation Date of Evaluation: 10/06/17 Time of Evaluation: 20:12 - Subjective Subjective: awake. alert. VS BP LOW 90"S SYST. states he cannot tolerate HD X 3HOURS. FEELS WEAK. DENIES SOB OR CHESTPAIN. PT FOR AVF ?SUNDAY. LABS REVIEWED: SERUM CORTISOL -N. Objective - Vital Signs/Intake and Output Vital Signs (last 24 hours): Temp Pulse Resp BP Pulse Ox 97.5 F L 78 20 93/56 L 96 10/06/17 15:19 10/06/17 15:19 10/06/17 15:19 10/06/17 15:19 10/06/17 15:19 - Medications Medications: Current Medications Acetaminophen (Tylenol 325mg Tab) 650 mg PO Q4 PRN PRN Reason: Pain, moderate (4-7) Amiodarone HCl (Cordarone) 400 mg PO BID [facility] Last Admin: 10/06/17 19:11 Dose: Not Given Calcitriol (Rocaltrol) 0.5 mcg PO DAILY [facility] Last Admin: 10/06/17 09:40 Dose: 0.5 mcg Calcium Acetate (Phoslo) 667 mg PO TIDCC [facility] Last Admin: 10/06/17 17:56 Dose: 667 mg Epoetin Pepe (Procrit) 10,000 unit IV MWF [facility] Last Admin: 10/05/17 11:35 Dose: 10,000 unit Famotidine (Pepcid) 20 mg PO DAILY [facility] Last Admin: 10/06/17 09:41 Dose: 20 mg Ferric Sodium Gluconate Complex 125 mg/ Sodium Chloride 110 mls @ 110 mls/hr IVPB DAILY [facility] Stop: 10/08/17 10:01 Last Admin: 10/06/17 09:42 Dose: 110 mls/hr Cefepime HCl (Maxipime Iv 1 Gm Premix) 1 gm in 50 mls @ 100 mls/hr IVPB Q24H [facility] Last Admin: 10/06/17 11:58 Dose: 100 mls/hr Midodrine (Proamatine) 2.5 mg PO TID [facility] Last Admin: 10/06/17 17:56 Dose: 2.5 mg Tamsulosin HCl (Flomax) 0.4 mg PO DAILY [facility] Last Admin: 10/06/17 09:41 Dose: 0.4 mg Vitamin B Complex/Vit C/Folic Acid (Nephro-Aleksandra) 1 tab PO DAILY [facility] Last Admin: 10/06/17 09:40 Dose: 1 tab - Labs Labs: 10/05/17 07:39 10/05/17 07:39 - Constitutional Appears: No Acute Distress, Cachectic, Chronically Ill - Head Exam Head Exam: NORMAL INSPECTION - Eye Exam Eye Exam: EOMI, PERRL - ENT Exam ENT Exam: Normal Oropharynx - Neck Exam Neck Exam: Normal Inspection - Respiratory Exam Respiratory Exam: Clear to Ausculation Bilateral - Cardiovascular Exam Cardiovascular Exam: REGULAR RHYTHM, +S1, +S2 - GI/Abdominal Exam GI & Abdominal Exam: Soft, Normal Bowel Sounds - Extremities Exam Extremities Exam: absent: Calf Tenderness, Pedal Edema (HYPERPIGMENTATION B/L LE.) - Neurological Exam Neurological Exam: Awake, CN II-XII Intact, Oriented x3 - Psychiatric Exam Psychiatric exam: Normal Mood - Skin Skin Exam: Normal Color, Warm Assessment and Plan (1) UTI (urinary tract infection) Status: Acute (2) Acute urinary retention Status: Acute (3) Obstructed Beck catheter Status: Acute (4) Renal failure, acute on chronic Status: Acute (5) Cachexia Status: Acute (6) Cardiomyopathy Status: Acute (7) Benign prostatic hyperplasia Status: Acute (8) Hepatitis C antibody test positive Status: Acute - Assessment and Plan (Free Text) Plan: ON IV cefepime 1 g once a day daily for better pseudomonal coverage..10/04/17. TO CLEAR THE URINE INFECTION. Serology Trypanasoma Cruzi.-P Patient for AICD/LifeVest as per cardiology. Hemodialysis as per renal. Dr. Wright on the case FOR AICD. PT AGREEABLE FOR AVF PER RENAL.
--- NOTE | 2017-10-07 07:41 | CP.PCM.PN ---
Subjective - Date & Time of Evaluation Date of Evaluation: 10/07/17 Time of Evaluation: 05:15 - Subjective Subjective: Vascular Surgery Progress note. Dr. Ordoñez Pt seen and examined at bedside. No acute events overnight. No complaints Objective - Vital Signs/Intake and Output Vital Signs (last 24 hours): Temp Pulse Resp BP Pulse Ox 97.8 F 83 20 94/50 L 95 10/06/17 23:20 10/06/17 23:20 10/06/17 23:20 10/06/17 23:20 10/06/17 23:20 Intake and Output: 10/07/17 10/07/17 06:59 18:59 Intake Total 420 Output Total 625 Balance -205 - Medications Medications: Current Medications Acetaminophen (Tylenol 325mg Tab) 650 mg PO Q4 PRN PRN Reason: Pain, moderate (4-7) Amiodarone HCl (Cordarone) 400 mg PO BID [facility] Last Admin: 10/06/17 19:11 Dose: Not Given Calcitriol (Rocaltrol) 0.5 mcg PO DAILY [facility] Last Admin: 10/06/17 09:40 Dose: 0.5 mcg Calcium Acetate (Phoslo) 667 mg PO TIDCC [facility] Last Admin: 10/06/17 17:56 Dose: 667 mg Epoetin Pepe (Procrit) 10,000 unit IV MWF [facility] Last Admin: 10/05/17 11:35 Dose: 10,000 unit Famotidine (Pepcid) 20 mg PO DAILY [facility] Last Admin: 10/06/17 09:41 Dose: 20 mg Ferric Sodium Gluconate Complex 125 mg/ Sodium Chloride 110 mls @ 110 mls/hr IVPB DAILY [facility] Stop: 10/08/17 10:01 Last Admin: 10/06/17 09:42 Dose: 110 mls/hr Cefepime HCl (Maxipime Iv 1 Gm Premix) 1 gm in 50 mls @ 100 mls/hr IVPB Q24H [facility] Last Admin: 10/06/17 11:58 Dose: 100 mls/hr Midodrine (Proamatine) 2.5 mg PO TID [facility] Last Admin: 10/06/17 17:56 Dose: 2.5 mg Tamsulosin HCl (Flomax) 0.4 mg PO DAILY [facility] Last Admin: 10/06/17 09:41 Dose: 0.4 mg Vitamin B Complex/Vit C/Folic Acid (Nephro-Aleksandra) 1 tab PO DAILY [facility] Last Admin: 10/06/17 09:40 Dose: 1 tab - Labs Labs: 10/05/17 07:39 10/05/17 07:39 - Constitutional Appears: Well, Non-toxic, No Acute Distress - Head Exam Head Exam: ATRAUMATIC, NORMAL INSPECTION, NORMOCEPHALIC - Eye Exam Eye Exam: EOMI - ENT Exam ENT Exam: Mucous Membranes Moist - Respiratory Exam Respiratory Exam: NORMAL BREATHING PATTERN. absent: Accessory Muscle Use, Respiratory Distress - Cardiovascular Exam Cardiovascular Exam: absent: JVD - GI/Abdominal Exam GI & Abdominal Exam: Soft. absent: Distended, Firm, Guarding, Rigid, Tenderness - Extremities Exam Extremities Exam: Normal Inspection. absent: Calf Tenderness - Neurological Exam Neurological Exam: Alert, Awake, Oriented x3 - Skin Skin Exam: Dry, Intact, Normal Color, Warm Assessment and Plan - Assessment and Plan (Free Text) Assessment: 77yo M with CKD. POD 5 R IJ permacath placement. Pending AVF. - OR for AVF on Sunday afternoon, 10/08 - Recommend Dialysis Sunday prior to OR - Patient consent on chart - NPO past mn Sunday, 10/07 Further recs as per Dr. Tiago Toussaint PGY1 surgery pager: [phone]
[2017-10-07 08:13] LABS: INR 1.2; PROTHROMBIN TIME 13.4 SECONDS (9.7-12.2)
[2017-10-07 08:16] LABS: BASO % 0.7 % (0.0-2.0); EOS # 0.1 K/uL (0.0-0.7); LYMPH # 1.2 K/uL (1.0-4.3); LYMPH % 16.5 % (20.0-40.0); MEAN CELL VOLUME 95.3 fL (80.0-94.0); MEAN CORPUSCULAR HGB CONC 32.5 g/dL (33.0-37.0); MEAN PLATELET VOLUME 9.1 fL (7.2-11.7); MONO # 0.6 K/uL (0.0-0.8); MONO % 7.9 % (0.0-10.0); NEUT # 5.2 K/uL (1.8-7.0); NEUT % 72.9 % (50.0-75.0); NRBC % 0.2 % (0.0-2.0); RBC 2.89 Mil/uL (4.40-5.90); WHITE BLOOD COUNT 7.2 K/uL (4.8-10.8)
[2017-10-07 08:29] LABS: ALB/GLOB RATIO 0.8 (1.0-2.1); CALCIUM 7.5 mg/dl (8.6-10.4)
[2017-10-07] MEDS: Cefepime IV 1 gm in Dextrose 1 GM/50 ML BAG IVPB SCH (09:59)
[2017-10-07] MEDS: Multivitamin Vitamin B Complex (Nephro-Vite) Tab PO SCH (09:59)
[2017-10-07] MEDS: Ferric Sodium Gluconat Complex 125 MG in Sodium Chloride 0.9% 100 ML IVPB SCH (10:51)
--- NOTE | 2017-10-07 14:32 | CP.PCM.PN ---
Subjective - Date & Time of Evaluation Date of Evaluation: 10/07/17 Time of Evaluation: 14:31 - Subjective Subjective: CHIEF COMPLAINTS TODAY : SOB LESS S/P CATH : NON SIGNIFICANT CAD WITH EF 15%, ROS. HEENT : N. Resp : No cough, wheezing ,pleuritic CP ,or hemoptysis Cardio : No anginal CP, GI : No abd.pain, n/v ,diarrhea or GI bleeding . [employer] : No headache, vertigo, focal deficit. Musculoskel : No joint swelling , Derm : No rash Psych : Normal affect. Ext : No swelling ,calf pain PE. Pt. is alert awake in no distress. V.S As noted in the chart Head ,ear nose,throat and eyes : Normal. Neck : Supple with normal carotids. Lungs: Clear air entry. RONCHI Heart : S1 & S2 normal with S4. No murmur. Abd : Soft non tender with normal bowel sounds. Neuro : Moves all ext. with no localized deficit. Ext : + edema with intact pulses.Non tender calves Derm : No rashes or decubitus ulcer. LABS/RADIOLOGY: URINE VRE ASSESSMENT/PLAN : CONT DIALYSIS IV AB NON ISCHEMIC CARDIOMYOPATHY , WILL NEED AICD , ON VEST NOW OR IN AM FOR AVF , MODERATE RISK FOR SURGERY . PT FULLY AWARE AND SURGERY WILL ELABORATE ON RISK FACTORS Objective - Vital Signs/Intake and Output Vital Signs (last 24 hours): Temp Pulse Resp BP Pulse Ox 97.8 F 77 20 94/50 L 95 10/06/17 23:20 10/07/17 08:00 10/06/17 23:20 10/06/17 23:20 10/06/17 23:20 Intake and Output: 10/07/17 10/07/17 11:59 23:59 Output Total 225 Balance -225 - Medications Medications: Current Medications Acetaminophen (Tylenol 325mg Tab) 650 mg PO Q4 PRN PRN Reason: Pain, moderate (4-7) Amiodarone HCl (Cordarone) 400 mg PO BID [facility] Last Admin: 10/07/17 09:59 Dose: 400 mg Calcitriol (Rocaltrol) 0.5 mcg PO DAILY [facility] Last Admin: 10/07/17 09:59 Dose: 0.5 mcg Calcium Acetate (Phoslo) 667 mg PO TIDCC [facility] Last Admin: 10/07/17 12:35 Dose: 667 mg Epoetin Pepe (Procrit) 10,000 unit IV MWF [facility] Last Admin: 10/05/17 11:35 Dose: 10,000 unit Famotidine (Pepcid) 20 mg PO DAILY [facility] Last Admin: 10/07/17 09:59 Dose: 20 mg Ferric Sodium Gluconate Complex 125 mg/ Sodium Chloride 110 mls @ 110 mls/hr IVPB DAILY [facility] Stop: 10/08/17 10:01 Last Admin: 10/07/17 10:51 Dose: 110 mls/hr Cefepime HCl (Maxipime Iv 1 Gm Premix) 1 gm in 50 mls @ 100 mls/hr IVPB Q24H [facility] Last Admin: 10/07/17 09:59 Dose: 100 mls/hr Midodrine (Proamatine) 2.5 mg PO TID [facility] Last Admin: 10/07/17 13:50 Dose: 2.5 mg Tamsulosin HCl (Flomax) 0.4 mg PO DAILY [facility] Last Admin: 10/07/17 09:59 Dose: 0.4 mg Vitamin B Complex/Vit C/Folic Acid (Nephro-Aleksandra) 1 tab PO DAILY [facility] Last Admin: 10/07/17 09:59 Dose: 1 tab - Labs Labs: 10/07/17 07:57 10/07/17 07:57 PT 13.4 SECONDS (9.7-12.2) H 10/07/17 07:57 INR 1.2 10/07/17 07:57 APTT 36 SECONDS (21-34) H 10/07/17 07:57
[2017-10-08 06:55] LABS: BASO % 0.6 % (0.0-2.0); EOS # 0.1 K/uL (0.0-0.7); EOS % 1.8 % (0.0-4.0); HEMOGLOBIN 8.8 g/dL (12.0-18.0); LYMPH # 1.1 K/uL (1.0-4.3); LYMPH % 15.8 % (20.0-40.0); MEAN CELL VOLUME 94.7 fL (80.0-94.0); MEAN CORPUSCULAR HEMOGLOBIN 30.5 pg (27.0-31.0); MEAN CORPUSCULAR HGB CONC 32.2 g/dL (33.0-37.0); MEAN PLATELET VOLUME 8.5 fL (7.2-11.7); MONO # 0.6 K/uL (0.0-0.8); MONO % 9.1 % (0.0-10.0); NEUT % 72.7 % (50.0-75.0); NRBC % 0.2 % (0.0-2.0); RBC 2.88 Mil/uL (4.40-5.90); RED CELL DISTRIBUTION WIDTH 17.5 % (11.5-14.5)
[2017-10-08 07:38] LABS: ALB/GLOB RATIO 0.8 (1.0-2.1); CALCIUM 7.6 mg/dl (8.6-10.4)
[2017-10-08] MEDS ORDERED: Ferric Sodium Gluconat Complex 62.5 mg/5 ml Vial ONE (10:33)
[2017-10-08] MEDS: Epoetin Alfa 10,000 unit/ml Dialysis IV SCH (10:37)
--- NOTE | 2017-10-08 11:35 | PCM.URO ---
Urology Progress Note - General General: No Complaints, Tolerating Diet - Subjective Abdominal Pain: No Flank Pain: No Nausea: No Vomiting: No Hematuria: No Chest Pain: No Fever & Chills: No - Objective Lab Studies: Reviewed Lab Results Last 24 Hours: Laboratory Results - last 24 hr 10/08/17 10/08/17 06:46 06:46 WBC 7.0 RBC 2.88 L Hgb 8.8 L Hct 27.3 L MCV 94.7 H MCH 30.5 MCHC 32.2 L RDW 17.5 H Plt Count 198 MPV 8.5 Neut % (Auto) 72.7 Lymph % (Auto) 15.8 L [place] % (Auto) 9.1 Eos % (Auto) 1.8 Baso % (Auto) 0.6 Neut # 5.0 Lymph # 1.1 [place] # 0.6 Eos # 0.1 Baso # 0.0 Sodium 138 Potassium 4.3 Chloride 104 Carbon Dioxide 24 Anion Gap 15 BUN 71 H Creatinine 7.0 H Est GFR ( Amer) 9 Est GFR (Non-Af Amer) 8 Random Glucose 86 Calcium 7.6 L Total Bilirubin 0.4 AST 31 ALT 38 Alkaline Phosphatase 89 Total Protein 6.9 Albumin 3.0 L Globulin 3.8 Albumin/Globulin Ratio 0.8 L Intake & Output: Intake & Output 10/07/17 10/08/17 10/08/17 18:59 06:59 18:59 Intake Total 600 Output Total 1000 Balance -400 Intake: Oral 600 Output: Urine 1000 Urethral (Beck) 1000 Vital Signs: Vital Signs - 24 hr 10/07/17 10/07/17 10/08/17 15:15 23:20 07:55 Temperature 97.7 F 98.5 F 97.8 F Pulse Rate 76 76 80 Pulse Rate [ Right Brachial] Respiratory 20 20 20 Rate Blood Pressure 94/52 L 101/56 L 107/62 Blood Pressure [Right Arm] O2 Sat by Pulse 95 95 95 Oximetry 10/08/17 10/08/17 10/08/17 08:35 08:50 09:05 Temperature 97.1 F L 97.1 F L Pulse Rate 78 Pulse Rate [ 78 Right Brachial] Respiratory 16 16 Rate Blood Pressure 100/62 Blood Pressure 110/59 L 104/65 [Right Arm] O2 Sat by Pulse 100 Oximetry 10/08/17 10/08/17 10/08/17 09:23 09:35 10:05 Temperature Pulse Rate Pulse Rate [ Right Brachial] Respiratory Rate Blood Pressure Blood Pressure 100/62 101/60 103/60 [Right Arm] O2 Sat by Pulse Oximetry - Physical Exam Abdominal Exam: Soft, Non-Tender, Non-Distended Back: No CVA Tenderness Genitalia: Without Inflammation Urinary Catheter Draining Well: Yes Urine Color: Clear - Plan Additional Information: Imp: urinary retention. ESKD. CHF. P: catheter in place. Discussed re option s of further treatment - Date & Time of Note Date: 10/08/17 Time: 11:35
--- NOTE | 2017-10-08 12:00 | CP.PCM.PN ---
Subjective - Date & Time of Evaluation Date of Evaluation: 10/08/17 Time of Evaluation: 11:57 - Subjective Subjective: Seen on dialysis Pt trying to cut time on machine- advised against this BP better with midodrine Rehab plans noted AV access planned for today Less nausea; no vomiting, fever,chills, CPs Less dyspneic Objective - Vital Signs/Intake and Output Vital Signs (last 24 hours): Temp Pulse Resp BP Pulse Ox 97.4 F L 73 16 98/55 L 97 10/08/17 11:33 10/08/17 11:33 10/08/17 08:50 10/08/17 11:33 10/08/17 11:33 Intake and Output: 10/08/17 10/08/17 06:59 18:59 Intake Total 600 Output Total 1000 Balance -400 - Medications Medications: Current Medications Acetaminophen (Tylenol 325mg Tab) 650 mg PO Q4 PRN PRN Reason: Pain, moderate (4-7) Amiodarone HCl (Cordarone) 400 mg PO BID [facility] Last Admin: 10/07/17 17:44 Dose: 400 mg Calcitriol (Rocaltrol) 0.5 mcg PO DAILY [facility] Last Admin: 10/07/17 09:59 Dose: 0.5 mcg Calcium Acetate (Phoslo) 667 mg PO TIDCC [facility] Last Admin: 10/08/17 08:07 Dose: 667 mg Epoetin Pepe (Procrit) 10,000 unit IV [facility] Last Admin: 10/08/17 10:37 Dose: 10,000 unit Famotidine (Pepcid) 20 mg PO DAILY [facility] Last Admin: 10/07/17 09:59 Dose: 20 mg Heparin Sodium (Porcine) (Heparin) 3,700 units IVP [facility] Stop: 10/19/17 09:01 Last Admin: 10/08/17 11:38 Dose: 3,700 units Cefepime HCl (Maxipime Iv 1 Gm Premix) 1 gm in 50 mls @ 100 mls/hr IVPB Q24H [facility] Last Admin: 10/07/17 09:59 Dose: 100 mls/hr Midodrine (Proamatine) 2.5 mg PO TID [facility] Last Admin: 10/08/17 11:39 Dose: Not Given Tamsulosin HCl (Flomax) 0.4 mg PO DAILY [facility] Last Admin: 10/07/17 09:59 Dose: 0.4 mg Vitamin B Complex/Vit C/Folic Acid (Nephro-Aleksandra) 1 tab PO DAILY [facility] Last Admin: 10/07/17 09:59 Dose: 1 tab - Labs Labs: 10/08/17 06:46 10/08/17 06:46 PT 13.4 SECONDS (9.7-12.2) H 10/07/17 07:57 INR 1.2 10/07/17 07:57 APTT 36 SECONDS (21-34) H 10/07/17 07:57 - Constitutional Appears: No Acute Distress, Chronically Ill - Head Exam Head Exam: ATRAUMATIC, NORMAL INSPECTION - Eye Exam Eye Exam: EOMI, PERRL - Neck Exam Neck Exam: Normal Inspection. absent: Tenderness - Respiratory Exam Respiratory Exam: Clear to Ausculation Bilateral, NORMAL BREATHING PATTERN - Cardiovascular Exam Cardiovascular Exam: REGULAR RHYTHM, +S1 - GI/Abdominal Exam GI & Abdominal Exam: Soft. absent: Tenderness - Extremities Exam Extremities Exam: Normal Inspection. absent: Tenderness - Neurological Exam Neurological Exam: Alert, CN II-XII Intact - Skin Skin Exam: Dry, Warm Assessment and Plan (1) CKD (chronic kidney disease) stage 5, GFR less than 15 ml/min Status: Acute (2) Acute urinary retention Status: Acute (3) Obstructed Beck catheter Status: Acute (4) Cardiomyopathy Status: Acute (5) Hepatitis C antibody positive in blood Status: Acute (6) VRE (vancomycin resistant enterococcus) culture positive Status: Acute (7) ESRD (end stage renal disease) on dialysis Status: Acute (8) Hepatitis C antibody test positive Status: Acute - Assessment and Plan (Free Text) Plan: dialysis MWF Same meds continue midodrine for hypotension AV access today Rehab transfer eventually [facility]As
[2017-10-08] MEDS ORDERED: Sodium Chloride 0.9% 1,000 ML IV ONE (12:59)
[2017-10-08] MEDS ORDERED: Lidocaine 1% Inj (20ml) ONE (13:14)
[2017-10-08] MEDS ORDERED: Propofol 10 mg/ml Inj (20 ML) ONE (13:19)
[2017-10-08] MEDS ORDERED: Midazolam 2 MG/2 ML VIAL ONE (13:19)
[2017-10-08] MEDS: Cefepime IV 1 gm in Dextrose 1 GM/50 ML BAG IVPB SCH (13:20)
--- NOTE | 2017-10-08 13:37 | CP.PCM.PN ---
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 HEENT : N. Resp : No cough, wheezing ,pleuritic CP ,or hemoptysis Cardio : No anginal CP, GI : No abd.pain, n/v ,diarrhea or GI bleeding . 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 Musculoskel : No joint swelling , Derm : No rash Psych : Normal affect. Ext : No swelling ,calf pain PE. Pt. is alert awake in no distress. V.S As noted in the chart Head ,ear nose,throat and eyes : Normal. Neck : Supple with normal carotids. Lungs: Clear air entry. RONCHI Heart : S1 & S2 normal with S4. No murmur. Abd : Soft non tender with normal bowel sounds. Neuro : Moves all ext. with no localized deficit. Ext : + edema with intact pulses.Non tender calves Derm : No rashes or decubitus ulcer. LABS/RADIOLOGY: URINE VRE ASSESSMENT/PLAN : CONT DIALYSIS IV AB NON ISCHEMIC CARDIOMYOPATHY , WILL NEED AICD , ON VEST NOW OR IN AM FOR AVF , MODERATE RISK FOR SURGERY . PT FULLY AWARE AND SURGERY WILL ELABORATE ON RISK FACTORS Objective - Vital Signs/Intake and Output Vital Signs (last 24 hours): Temp Pulse Resp BP Pulse Ox 97.4 F L 73 16 98/55 L 97 10/08/17 11:33 10/08/17 11:33 10/08/17 08:50 10/08/17 11:33 10/08/17 11:33 Intake and Output: 10/08/17 10/08/17 11:59 23:59 Output Total 200 Balance -200 - Medications Medications: Current Medications Acetaminophen (Tylenol 325mg Tab) 650 mg PO Q4 PRN PRN Reason: Pain, moderate (4-7) Amiodarone HCl (Cordarone) 400 mg PO BID [facility] Last Admin: 10/07/17 17:44 Dose: 400 mg Calcitriol (Rocaltrol) 0.5 mcg PO DAILY [facility] Last Admin: 10/07/17 09:59 Dose: 0.5 mcg Calcium Acetate (Phoslo) 667 mg PO TIDCC [facility] Last Admin: 10/08/17 08:07 Dose: 667 mg Epoetin Pepe (Procrit) 10,000 [place] [facility] [facility] [place] Admin: 10/08/17 10:37 Dose: 10,000 unit Famotidine (Pepcid) 20 mg PO DAILY [facility] Last Admin: 10/07/17 09:59 Dose: 20 mg Heparin Sodium (Porcine) (Heparin) 3,700 units [place]P [facility] Stop: 10/19/17 09:01 Last Admin: 10/08/17 11:38 Dose: 3,700 units Cefepime HCl (Maxipime Iv 1 Gm Premix) 1 gm in 50 mls @ 100 mls/hr IVPB Q24H [facility] Last Admin: 10/07/17 09:59 Dose: 100 mls/hr Midodrine (Proamatine) 2.5 mg PO TID [facility] Last Admin: 10/08/17 11:39 Dose: Not Given Tamsulosin HCl (Flomax) 0.4 mg PO DAILY [facility] Last Admin: 10/07/17 09:59 Dose: 0.4 mg Vitamin B Complex/Vit C/Folic Acid (Nephro-Aleksandra) 1 tab PO DAILY [facility] Last Admin: 10/07/17 09:59 Dose: 1 tab - Labs Labs: 10/08/17 06:46 10/08/17 06:46 PT 13.4 SECONDS (9.7-12.2) H 10/07/17 07:57 INR 1.2 10/07/17 07:57 APTT 36 SECONDS (21-34) H 10/07/17 07:57
[2017-10-08] MEDS ORDERED: HEPARIN-NS 5,000 UNITS/500 ML 5,000 UNIT/500 ML BAG IV ONE (13:57)
--- NOTE | 2017-10-08 14:59 | PCM.SURG1 ---
Surgeon's Initial Post Op Note - Surgeon's Notes Surgeon: Dr. Ordoñez Bulk Gas Specialist: Dr. Bishop PGY2 Type of Anesthesia: General IV Pre-Operative Diagnosis: ESRD Operative Findings: see dictation Post-Operative Diagnosis: same Operation Performed: left AV fistula Specimen/Specimens Removed: none Estimated Blood Loss: EBL {In ML}: 25 Post-Op Condition: Good Date of Surgery/Procedure: 10/08/17 Time of Surgery/Procedure: 13:00
--- NOTE | 2017-10-08 18:06 | CP.PCM.PN ---
Subjective - Date & Time of Evaluation Date of Evaluation: 10/08/17 Time of Evaluation: 18:06 - Subjective Subjective: S/P AVF LT ARM. VS AFEBRILE, BP 97/60S COMFORTABLE RENAL FOLLOW-UP NOTED. Objective - Vital Signs/Intake and Output Vital Signs (last 24 hours): Temp Pulse Resp BP Pulse Ox 97.0 F L 76 16 96/57 L 100 10/08/17 16:10 10/08/17 16:10 10/08/17 16:10 10/08/17 16:10 10/08/17 16:10 Intake and Output: 10/08/17 10/08/17 06:59 18:59 Intake Total 600 Output Total 1000 50 Balance -400 -50 - Medications Medications: Current Medications Acetaminophen (Tylenol 325mg Tab) 650 mg PO Q4 PRN PRN Reason: Pain, moderate (4-7) Amiodarone HCl (Cordarone) 400 mg PO BID [facility] Last Admin: 10/07/17 17:44 Dose: 400 mg Calcitriol (Rocaltrol) 0.5 mcg PO DAILY [facility] Last Admin: 10/07/17 09:59 Dose: 0.5 mcg Calcium Acetate (Phoslo) 667 mg PO TIDCC [facility] Last Admin: 10/08/17 08:07 Dose: 667 mg Epoetin Pepe (Procrit) 10,000 unit IV [facility] Last Admin: 10/08/17 10:37 Dose: 10,000 unit Famotidine (Pepcid) 20 mg PO DAILY [facility] Last Admin: 10/07/17 09:59 Dose: 20 mg Heparin Sodium (Porcine) (Heparin) 3,700 units IVP [facility] Stop: 10/19/17 09:01 Last Admin: 10/08/17 11:38 Dose: 3,700 units Cefepime HCl (Maxipime Iv 1 Gm Premix) 1 gm in 50 mls @ 100 mls/hr IVPB Q24H [facility] Last Admin: 10/08/17 13:20 Dose: 50 mls Sodium Chloride (Sodium Chloride 0.9%) 1,000 mls @ 70 mls/hr IV .[id number] [facility] Midodrine (Proamatine) 2.5 mg PO TID [facility] Last Admin: 10/08/17 11:39 Dose: Not Given Tamsulosin HCl (Flomax) 0.4 mg PO DAILY [facility] Last Admin: 10/07/17 09:59 Dose: 0.4 mg Vitamin B Complex/Vit C/Folic Acid (Nephro-Aleksandra) 1 tab PO DAILY [facility] Last Admin: 10/07/17 09:59 Dose: 1 tab - Labs Labs: 10/08/17 06:46 10/08/17 06:46 PT 13.4 SECONDS (9.7-12.2) H 10/07/17 07:57 INR 1.2 10/07/17 07:57 APTT 36 SECONDS (21-34) H 10/07/17 07:57 - Constitutional Appears: No Acute Distress, Cachectic, Chronically Ill - Eye Exam Eye Exam: EOMI, PERRL - ENT Exam ENT Exam: Normal Oropharynx - Neck Exam Neck Exam: Normal Inspection - Respiratory Exam Respiratory Exam: Decreased Breath Sounds - Cardiovascular Exam Cardiovascular Exam: REGULAR RHYTHM, +S1, +S2 - GI/Abdominal Exam GI & Abdominal Exam: Soft, Normal Bowel Sounds - Extremities Exam Extremities Exam: Normal Capillary Refill. absent: Calf Tenderness, Pedal Edema - Neurological Exam Neurological Exam: Awake, Oriented x3 - Psychiatric Exam Psychiatric exam: Normal Mood - Skin Skin Exam: Warm Assessment and Plan (1) UTI (urinary tract infection) Assessment & Plan: REPEAT UA/URINE CULTURE IN AM. PATIENT HAS CHRONIC Mitchell. CONTINUE IV ANTIBIOTICS. Status: Acute (2) Acute urinary retention Status: Acute (3) Obstructed Mitchell catheter Status: Acute (4) Renal failure, acute on chronic Assessment & Plan: S/P AVF. ON HD PER RENAL. Status: Acute (5) Cachexia Status: Acute (6) Cardiomyopathy Assessment & Plan: PATIENT HAS NONISCHEMIC-IDIOPATHIC CARDIOMYOPATHY. WILL FOLLOW SEROLOGY FOR CHAGAS DISEASE. PATIENT FROM [facility]. Status: Acute (7) Benign prostatic hyperplasia Status: Acute (8) Hepatitis C antibody test positive Assessment & Plan: HCV RNA NOT DETECTED. LFTS -N. WILL CONTINUE TO MONITOR HEP C. Status: Acute
[2017-10-08] MEDS: Sodium Chloride 0.9% 1,000 ML IV SCH (18:24)
--- NOTE | 2017-10-08 19:02 | OP ---
PROCEDURE DATE: 10/08/2017 PREOPERATIVE DIAGNOSIS: Renal failure. PROCEDURE CARRIED OUT: Brachio-basilic fistula, left arm. SURGEON: Aric Ordoñez Jr., MD BARREL RIFLER: None. TYPE OF ANESTHESIA: Local sedation. ANESTHESIA ADMINISTERED BY: Dr. Garcia. INDICATIONS: Patient is an elderly man with severe cardiomyopathy who I was asked to see for placement of dialysis access. Preoperatively, the patient has much better veins on the right side, but 00:31 refused placement of the fistula in his right arm. Because of this we were forced to use the basilic vein because the cephalic veins in two locations have been thrombosed. Patient was well aware of the fact that he had better veins on the opposite limb. DESCRIPTION OF PROCEDURE: Patient was given local anesthesia. Using ultrasound guidance, the vein and the adjacent artery were marked. These were then anastomosed was done using heparin anticoagulation. The patient did quite well. At the end of the procedure, we had diminished pulse to wrist, but we had excellent triphasic Doppler signals and good profusion as measured on a pulse oximeter. After completion of this, the wound was closed with Monocryl and Vicryl sutures. The heparin was then reversed. An end-to-side fistula was carried out that most likely will require mobilization in the future. The operation carried out was brachio-basilic fistula, left arm. Aric Ordoñez Jr., MD cc: Shola Flores MD
[2017-10-09] MEDS: Sodium Chloride 0.9% 1,000 ML IV SCH (04:02)
--- NOTE | 2017-10-09 07:57 | CP.PCM.PN ---
Subjective - Date & Time of Evaluation Date of Evaluation: 10/09/17 Time of Evaluation: 06:45 - Subjective Subjective: Vascular Surgery Dr. Ordoñez Pt S&E @bedside. Pt underwent L AVF placement yesterday. Pt tolerated the procedure well w/ no complications. NAEO. Pt has no complaints. Kahlil F/C, N/V. tolerating diet. Objective - Vital Signs/Intake and Output Vital Signs (last 24 hours): Temp Pulse Resp BP Pulse Ox 97.0 F L 93 H 16 96/57 L 100 10/08/17 16:10 10/09/17 04:14 10/08/17 16:10 10/08/17 16:10 10/08/17 16:10 Intake and Output: 10/09/17 10/09/17 06:59 18:59 Intake Total 1330 Output Total 200 Balance 1130 - Medications Medications: Current Medications Acetaminophen (Tylenol 325mg Tab) 650 mg PO Q4 PRN PRN Reason: Pain, moderate (4-7) Amiodarone HCl (Cordarone) 400 mg PO BID [facility] Last Admin: 10/08/17 18:22 Dose: 400 mg Calcitriol (Rocaltrol) 0.5 mcg PO DAILY [facility] Last Admin: 10/07/17 09:59 Dose: 0.5 mcg Calcium Acetate (Phoslo) 667 mg PO TIDCC [facility] Last Admin: 10/08/17 18:22 Dose: 667 mg Epoetin Pepe (Procrit) 10,000 unit [place] [facility] [place] Last Admin: 10/08/17 10:37 Dose: 10,000 unit Famotidine (Pepcid) 20 mg PO DAILY [facility] Last Admin: 10/07/17 09:59 Dose: 20 mg Heparin Sodium (Porcine) (Heparin) 3,700 units [place] [facility] [place] Stop: 10/19/17 09:01 Last Admin: 10/08/17 11:38 Dose: 3,700 units Cefepime HCl (Maxipime Iv 1 Gm Premix) 1 gm in 50 mls @ 100 mls/hr IVPB Q24H [facility] Last Admin: 10/08/17 13:20 Dose: 50 mls Sodium Chloride (Sodium Chloride 0.9%) 1,000 mls @ 70 mls/hr IV .[id number] [facility] Last Admin: 10/09/17 04:02 Dose: 70 mls/hr Midodrine (Proamatine) 2.5 mg PO TID [facility] Last Admin: 10/08/17 18:22 Dose: 2.5 mg Tamsulosin HCl (Flomax) 0.4 mg PO DAILY [facility] Last Admin: 10/07/17 09:59 Dose: 0.4 mg Vitamin B Complex/Vit C/Folic Acid (Nephro-Aleksandra) 1 tab PO DAILY [facility] Last Admin: 10/07/17 09:59 Dose: 1 tab - Labs Labs: 10/08/17 06:46 10/08/17 06:46 PT 13.4 SECONDS (9.7-12.2) H 10/07/17 07:57 INR 1.2 10/07/17 07:57 APTT 36 SECONDS (21-34) H 10/07/17 07:57 - Constitutional Appears: Non-toxic, No Acute Distress - Head Exam Head Exam: NORMAL INSPECTION - Eye Exam Eye Exam: Normal appearance - ENT Exam ENT Exam: Mucous Membranes Moist - Respiratory Exam Respiratory Exam: NORMAL BREATHING PATTERN. absent: Accessory Muscle Use, Respiratory Distress - Extremities Exam Additional comments: L arm dressing c/d/i palpable thrill present - Neurological Exam Neurological Exam: Alert, Awake, Oriented x3 - Psychiatric Exam Psychiatric exam: Normal Affect, Normal Mood - Skin Skin Exam: Dry, Intact, Normal Color, Warm Assessment and Plan - Assessment and Plan (Free Text) Assessment: 77 y/o M POD#1 s/p L AVF placement, POD#5 s/p permacath placement - monitor pulses - cont dialysis through permacath - cont pain management - cont medical management per PMD - Pt cleared for discharge from surgical standpoint - no further surgical intervention at this time, please reconsult if needed Pt discussed w/ Dr. Tiago Bishop DO PGY2
[2017-10-09 08:34] LABS: BASO % 0.4 % (0.0-2.0); EOS # 0.1 K/uL (0.0-0.7); EOS % 0.7 % (0.0-4.0); HEMOGLOBIN 9.6 g/dL (12.0-18.0); LYMPH # 1.8 K/uL (1.0-4.3); LYMPH % 19.5 % (20.0-40.0); MEAN CORPUSCULAR HEMOGLOBIN 31.3 pg (27.0-31.0); MEAN CORPUSCULAR HGB CONC 32.3 g/dL (33.0-37.0); MEAN PLATELET VOLUME 9.1 fL (7.2-11.7); MONO # 0.8 K/uL (0.0-0.8); MONO % 8.3 % (0.0-10.0); NEUT # 6.5 K/uL (1.8-7.0); NEUT % 71.1 % (50.0-75.0); NRBC % 0.2 % (0.0-2.0); RBC 3.05 Mil/uL (4.40-5.90); WHITE BLOOD COUNT 9.1 K/uL (4.8-10.8)
[2017-10-09 08:42] LABS: MEAN CELL VOLUME 97.1 fL (80.0-94.0)
[2017-10-09 08:53] LABS: ALB/GLOB RATIO 0.6 (1.0-2.1); ALBUMIN 3.3 g/dL (3.5-5.0); CALCIUM 7.7 mg/dl (8.6-10.4)
[2017-10-09] MEDS: Cefepime IV 1 gm in Dextrose 1 GM/50 ML BAG IVPB SCH (10:37)
[2017-10-09] MEDS: Multivitamin Vitamin B Complex (Nephro-Vite) Tab PO SCH (10:37)
--- NOTE | 2017-10-09 10:42 | CP.PCM.PN ---
Subjective - Date & Time of Evaluation Date of Evaluation: 10/09/17 Time of Evaluation: 10:40 - Subjective Subjective: seen and examined s/p avf surgery yesterday hd yesterday Objective - Vital Signs/Intake and Output Vital Signs (last 24 hours): Temp Pulse Resp BP Pulse Ox 99.1 F 80 20 118/62 99 10/09/17 08:00 10/09/17 08:00 10/09/17 08:00 10/09/17 08:00 10/09/17 08:00 Intake and Output: 10/09/17 10/09/17 06:59 18:59 Intake Total 1330 Output Total 200 Balance 1130 - Medications Medications: Current Medications Acetaminophen (Tylenol 325mg Tab) 650 mg PO Q4 PRN PRN Reason: Pain, moderate (4-7) Amiodarone HCl (Cordarone) 400 mg PO BID [facility] Last Admin: 10/09/17 10:32 Dose: 400 mg Calcitriol (Rocaltrol) 0.5 mcg PO DAILY [facility] Last Admin: 10/09/17 10:33 Dose: 0.5 mcg Calcium Acetate (Phoslo) 667 mg PO TIDCC [facility] Last Admin: 10/09/17 08:39 Dose: 667 mg Epoetin Pepe (Procrit) 10,000 unit IV [facility] Last Admin: 10/08/17 10:37 Dose: 10,000 unit Famotidine (Pepcid) 20 mg PO DAILY [facility] Last Admin: 10/09/17 10:32 Dose: 20 mg Heparin Sodium (Porcine) (Heparin) 3,700 units IVP [facility] Stop: 10/19/17 09:01 Last Admin: 10/08/17 11:38 Dose: 3,700 units Cefepime HCl (Maxipime Iv 1 Gm Premix) 1 gm in 50 mls @ 100 mls/hr IVPB Q24H [facility] Last Admin: 10/09/17 10:37 Dose: 100 mls/hr Sodium Chloride (Sodium Chloride 0.9%) 1,000 mls @ 70 mls/hr IV .[id number] [facility] Last Admin: 10/09/17 04:02 Dose: 70 mls/hr Midodrine (Proamatine) 2.5 mg PO TID [facility] Last Admin: 10/09/17 10:33 Dose: 2.5 mg Tamsulosin HCl (Flomax) 0.4 mg PO DAILY [facility] Last Admin: 10/09/17 10:32 Dose: 0.4 mg Vitamin B Complex/Vit C/Folic Acid (Nephro-Aleksandra) 1 tab PO DAILY [facility] Last Admin: 10/09/17 10:37 Dose: 1 tab - Labs Labs: 10/09/17 08:17 10/09/17 08:16 PT 13.4 SECONDS (9.7-12.2) H 10/07/17 07:57 INR 1.2 10/07/17 07:57 APTT 36 SECONDS (21-34) H 10/07/17 07:57 - Constitutional Appears: Non-toxic, No Acute Distress, Chronically Ill - Head Exam Head Exam: NORMAL INSPECTION - Eye Exam Eye Exam: Normal appearance, PERRL - ENT Exam ENT Exam: Mucous Membranes Moist, Normal Exam - Neck Exam Neck Exam: Normal Inspection - Respiratory Exam Respiratory Exam: Clear to Ausculation Bilateral, NORMAL BREATHING PATTERN - Cardiovascular Exam Cardiovascular Exam: REGULAR RHYTHM, RRR - GI/Abdominal Exam GI & Abdominal Exam: Distended, Soft, Normal Bowel Sounds - Exam Exam: NORMAL INSPECTION (sanon ) - Extremities Exam Extremities Exam: Normal Inspection (lue avf w/ thrill) - Neurological Exam Neurological Exam: Alert, Awake, Oriented x3 Assessment and Plan (1) UTI (urinary tract infection) Status: Acute (2) Acute urinary retention Status: Acute (3) Obstructed Sanon catheter Status: Acute (4) Renal failure, acute on chronic Status: Acute (5) Cardiomyopathy Status: Acute (6) Urinary retention due to benign prostatic hyperplasia Status: Acute - Assessment and Plan (Free Text) Assessment: maintain hd mwf tyrell w/ hd midodrine for low bp stable from renal standpoint for dc rehab?
--- NOTE | 2017-10-09 13:19 | CP.PCM.PN ---
Subjective - Date & Time of Evaluation Date of Evaluation: 10/09/17 Time of Evaluation: 13:16 - Subjective Subjective: CHIEF COMPLAINTS TODAY : SOB LESS S/P L ARM AV FISTULA , HEALING ROS. HEENT : N. Resp : No cough, wheezing ,pleuritic CP ,or hemoptysis Cardio : No anginal CP, GI : No abd.pain, n/v ,diarrhea or GI bleeding . 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 Musculoskel : No joint swelling , Derm : No rash Psych : Normal affect. Ext : No swelling ,calf pain PE. Pt. is alert awake in no distress. V.S As noted in the chart Head ,ear nose,throat and eyes : Normal. Neck : Supple with normal carotids. Lungs: Clear air entry. RONCHI Heart : S1 & S2 normal with S4. No murmur. Abd : Soft non tender with normal bowel sounds. Neuro : Moves all ext. with no localized deficit. Ext : + edema with intact pulses.Non tender calves Derm : No rashes or decubitus ulcer. LABS/RADIOLOGY: URINE VRE ASSESSMENT/PLAN : CONT DIALYSIS IV AB MATTEO OT HOME Objective - Vital Signs/Intake and Output Vital Signs (last 24 hours): Temp Pulse Resp BP Pulse Ox 99.1 F 80 20 118/62 99 10/09/17 08:00 10/09/17 08:00 10/09/17 08:00 10/09/17 08:00 10/09/17 08:00 Intake and Output: 10/09/17 10/09/17 11:59 23:59 Intake Total 590 Output Total 100 Balance 490 - Medications Medications: Current Medications Acetaminophen (Tylenol 325mg Tab) 650 mg PO Q4 PRN PRN Reason: Pain, moderate (4-7) Amiodarone HCl (Cordarone) 400 mg PO BID [facility] Last Admin: 10/09/17 10:32 Dose: 400 mg Calcitriol (Rocaltrol) 0.5 mcg PO DAILY [facility] Last Admin: 10/09/17 10:33 Dose: 0.5 mcg Calcium Acetate (Phoslo) 667 mg PO TIDCC [facility] Last Admin: 10/09/17 12:15 Dose: 667 mg Epoetin Pepe (Procrit) 10,000 unit IV [facility]WF [facility] Last Admin: 10/08/17 10:37 Dose: 10,000 unit Famotidine (Pepcid) 20 mg PO DAILY [facility] Last Admin: 10/09/17 10:32 Dose: 20 mg Heparin Sodium (Porcine) (Heparin) 3,700 units IVP MWF [facility] Stop: 10/19/17 09:01 Last Admin: 10/08/17 11:38 Dose: 3,700 units Cefepime HCl (Maxipime Iv 1 Gm Premix) 1 gm in 50 mls @ 100 mls/hr IVPB Q24H [facility] Last Admin: 10/09/17 10:37 Dose: 100 mls/hr Sodium Chloride (Sodium Chloride 0.9%) 1,000 mls @ 70 mls/hr IV .[id number] [facility] Last Admin: 10/09/17 04:02 Dose: 70 mls/hr Midodrine (Proamatine) 2.5 mg PO TID [facility] Last Admin: 10/09/17 10:33 Dose: 2.5 mg Tamsulosin HCl (Flomax) 0.4 mg PO DAILY [facility] Last Admin: 10/09/17 10:32 Dose: 0.4 mg Vitamin B Complex/Vit C/Folic Acid (Nephro-Aleksandra) 1 tab PO DAILY [facility] Last Admin: 10/09/17 10:37 Dose: 1 tab - Labs Labs: 10/09/17 08:17 10/09/17 08:16 PT 13.4 SECONDS (9.7-12.2) H 10/07/17 07:57 INR 1.2 10/07/17 07:57 APTT 36 SECONDS (21-34) H 10/07/17 07:57
[2017-10-09 18:15] LABS: URINE BACTERIA MANY (<OCC); URINE BILIRUBIN NEGATIVE (NEGATIVE); URINE BLOOD 2+ (NEGATIVE); URINE CLARITY Hazy (Clear); URINE COLOR Yellow (YELLOW); URINE GLUCOSE (UA) NORMAL (Normal); URINE LEUKOCYTE ESTERASE 3+ Leu/uL (Negative); URINE NITRATE NEGATIVE (NEGATIVE); URINE PROTEIN 2+ mg/dL (NEGATIVE); URINE UROBILINOGEN NORMAL mg/dL (0.2-1.0); WBC CLUMPS MOD /hpf
--- NOTE | 2017-10-09 23:30 | CP.PCM.PN ---
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 HEENT : N. Resp : No cough, wheezing ,pleuritic CP ,or hemoptysis Cardio : No anginal CP, GI : No abd.pain, n/v ,diarrhea or GI bleeding . 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 Musculoskel : No joint swelling , Derm : No rash Psych : Normal affect. Ext : No swelling ,calf pain PE. Pt. is alert awake in no distress. V.S As noted in the chart Head ,ear nose,throat and eyes : Normal. Neck : Supple with normal carotids. Lungs: Clear air entry. RONCHI Heart : S1 & S2 normal with S4. No murmur. Abd : Soft non tender with normal bowel sounds. Neuro : Moves all ext. with no localized deficit. Ext : + edema with intact pulses.Non tender calves Derm : No rashes or decubitus ulcer. LABS/RADIOLOGY: .wbc 9.9. H/H 9.6. LFTS N Repeat UA 3+ urinary leukocytes, 2+ blood, 689 WBCs, 22 RBCs WBC clumps. ASSESSMENT; *urosepsis-pseudomonas aeruginosa. * acute urinary retention s/p Foleys * BPH. 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 * acute renal failure s/p RT.IJ HD cathether 10/02/17. 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 STARTED IV AVYCAZ 1.25 G EVERY 24 HOURLY TO INFUSE OVER IN 60 MINUTES FOR PSEUDOMONAL COVERAGE 10/09/17 ADD iv GENTAMICIN 100 MG POST HEMODIALYSIS MWF.. X3 DOSES. PLEASE GIVE ANTIBIOTICS POST HEMODIALYSIS ON HEMODIALYSIS DAYS. CASE DISCUSSED WITH THE STAFF AT LENGTH. HEMODIALYSIS PER RENAL. Objective - Vital Signs/Intake and Output Vital Signs (last 24 hours): Temp Pulse Resp BP Pulse Ox 97.3 F L 92 H 20 106/67 94 L 10/09/17 15:16 10/09/17 21:41 10/09/17 21:41 10/09/17 21:41 10/09/17 15:16 Intake and Output: 10/09/17 10/10/17 18:59 06:59 Intake Total 320 Output Total 300 Balance 20 - Medications Medications: Current Medications Amiodarone HCl (Cordarone) 400 mg PO BID [facility] Last Admin: 10/09/17 18:21 Dose: 400 mg Calcitriol (Rocaltrol) 0.5 mcg PO DAILY [facility] Last Admin: 10/09/17 10:33 Dose: 0.5 mcg Calcium Acetate (Phoslo) 667 mg PO TIDCC [facility] Last Admin: 10/09/17 18:22 Dose: 667 mg Epoetin Pepe (Procrit) 10,000 unit IV MWF [facility] Last Admin: 10/08/17 10:37 Dose: 10,000 unit Famotidine (Pepcid) 20 mg PO DAILY [facility] Last Admin: 10/09/17 10:32 Dose: 20 mg Heparin Sodium (Porcine) (Heparin) 3,[address] [facility] Stop: 10/19/17 09:01 Last Admin: 10/08/17 11:38 Dose: 3,700 units Midodrine (Proamatine) 2.5 mg PO TID [facility] Last Admin: 10/09/17 18:21 Dose: 2.5 mg Tamsulosin HCl (Flomax) 0.4 mg PO DAILY [facility] Last Admin: 10/09/17 10:32 Dose: 0.4 mg Vitamin B Complex/Vit C/Folic Acid (Nephro-Aleksandra) 1 tab PO DAILY [facility] Last Admin: 10/09/17 10:37 Dose: 1 tab - Labs Labs: 10/09/17 08:17 10/09/17 08:16 PT 13.4 SECONDS (9.7-12.2) H 10/07/17 07:57 INR 1.2 10/07/17 07:57 APTT 36 SECONDS (21-34) H 10/07/17 07:57 Assessment and Plan (1) UTI (urinary tract infection) Status: Acute (2) Acute urinary retention Status: Acute (3) Obstructed Beck catheter Status: Acute (4) Renal failure, acute on chronic Status: Acute (5) Cachexia Status: Acute (6) Cardiomyopathy Status: Acute (7) Benign prostatic hyperplasia Status: Acute (8) Hepatitis C antibody test positive Status: Acute
[2017-10-10 06:33] LABS: BASO % 0.7 % (0.0-2.0); EOS # 0.1 K/uL (0.0-0.7); EOS % 0.9 % (0.0-4.0); HEMOGLOBIN 9.1 g/dL (12.0-18.0); LYMPH % 14.7 % (20.0-40.0); MEAN CELL VOLUME 95.8 fL (80.0-94.0); MEAN CORPUSCULAR HEMOGLOBIN 31.1 pg (27.0-31.0); MEAN CORPUSCULAR HGB CONC 32.4 g/dL (33.0-37.0); MEAN PLATELET VOLUME 8.7 fL (7.2-11.7); MONO # 0.6 K/uL (0.0-0.8); MONO % 8.5 % (0.0-10.0); NEUT # 5.1 K/uL (1.8-7.0); NEUT % 75.2 % (50.0-75.0); NRBC % 0.1 % (0.0-2.0); RBC 2.94 Mil/uL (4.40-5.90); RED CELL DISTRIBUTION WIDTH 17.5 % (11.5-14.5); WHITE BLOOD COUNT 6.8 K/uL (4.8-10.8)
[2017-10-10 07:00] LABS: ALB/GLOB RATIO 0.8 (1.0-2.1); ALBUMIN 3.2 g/dL (3.5-5.0); CALCIUM 8.1 mg/dl (8.6-10.4)
[2017-10-10] MEDS: Epoetin Alfa 10,000 unit/ml Dialysis IV SCH (10:04)
--- NOTE | 2017-10-10 10:58 | CP.PCM.PN ---
Subjective - Date & Time of Evaluation Date of Evaluation: 10/10/17 Time of Evaluation: 10:56 - Subjective Subjective: seen and examined for hd today low bp noted, on midodrine. asymptomatic denies any nasuea vomiting diarrhea sob chest pain dizziness chronic indwelling sanon last urine cx- pseudomonas Objective - Vital Signs/Intake and Output Vital Signs (last 24 hours): Temp Pulse Resp BP Pulse Ox 96.9 F L 84 18 88/59 L 98 10/10/17 09:05 10/10/17 09:05 10/10/17 09:05 10/10/17 10:35 10/10/17 09:05 Intake and Output: 10/10/17 10/10/17 06:59 18:59 Intake Total 320 Output Total 350 Balance -30 - Medications Medications: Current Medications Amiodarone HCl (Cordarone) 400 mg PO BID [facility] Last Admin: 10/09/17 18:21 Dose: 400 mg Calcitriol (Rocaltrol) 0.5 mcg PO DAILY [facility] Last Admin: 10/09/17 10:33 Dose: 0.5 mcg Epoetin Pepe (Procrit) 10,000 unit IV [facility] Last Admin: 10/10/17 10:04 Dose: 10,000 unit Famotidine (Pepcid) 20 mg PO DAILY [facility] Last Admin: 10/09/17 10:32 Dose: 20 mg Heparin Sodium (Porcine) (Heparin) 3,700 units IVP [facility] Stop: 10/19/17 09:01 Last Admin: 10/10/17 10:04 Dose: 3,700 units Ceftazidime/Avibactam 1.25 gm/ (Sodium Chloride) 100 mls @ 50 mls/hr IV Q24H [facility] Gentamicin Sulfate 100 mg/ (Sodium Chloride) 102.5 mls @ 100 mls/hr IVPB [facility] Stop: 10/15/17 10:02 Midodrine (Proamatine) 5 mg PO TID [facility] - Labs Labs: 10/10/17 06:26 10/10/17 06:26 PT 13.4 SECONDS (9.7-12.2) H 10/07/17 07:57 INR 1.2 10/07/17 07:57 APTT 36 SECONDS (21-34) H 10/07/17 07:57 - Constitutional Appears: No Acute Distress - Head Exam Head Exam: NORMAL INSPECTION - Eye Exam Eye Exam: Normal appearance Pupil Exam: PERRL - ENT Exam ENT Exam: Mucous Membranes Moist, Normal Exam - Neck Exam Neck Exam: Normal Inspection - Respiratory Exam Respiratory Exam: Clear to Ausculation Bilateral, NORMAL BREATHING PATTERN - Cardiovascular Exam Cardiovascular Exam: REGULAR RHYTHM, RRR - GI/Abdominal Exam GI & Abdominal Exam: Distended, Soft, Normal Bowel Sounds - Extremities Exam Extremities Exam: Normal Inspection (lue avf w/ thrill) - Neurological Exam Neurological Exam: Alert, Awake, Oriented x3 - Psychiatric Exam Psychiatric exam: Normal Affect, Normal Mood Assessment and Plan (1) UTI (urinary tract infection) Status: Acute (2) Acute urinary retention Status: Acute (3) Obstructed Sanon catheter Status: Acute (4) Renal failure, acute on chronic Status: Acute (5) Cardiomyopathy Status: Acute (6) Urinary retention due to benign prostatic hyperplasia Status: Acute - Assessment and Plan (Free Text) Assessment: hd mwf hd placement- [place] bal awan antibiotics for uti tyrell w/ hd increase midodrine dose
[2017-10-10] MEDS: Multivitamin Vitamin B Complex (Nephro-Vite) Tab PO SCH ×2 (11:09→13:45)
--- NOTE | 2017-10-10 13:21 | CP.PCM.PN ---
Subjective - Date & Time of Evaluation Date of Evaluation: 10/10/17 Time of Evaluation: 13:21 - Subjective Subjective: CHIEF COMPLAINTS TODAY : SOB LESS S/P L ARM AV FISTULA , HEALING ROS. HEENT : N. Resp : No cough, wheezing ,pleuritic CP ,or hemoptysis Cardio : No anginal CP, GI : No abd.pain, n/v ,diarrhea or GI bleeding . 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 Musculoskel : No joint swelling , Derm : No rash Psych : Normal affect. Ext : No swelling ,calf pain PE. Pt. is alert awake in no distress. V.S As noted in the chart Head ,ear nose,throat and eyes : Normal. Neck : Supple with normal carotids. Lungs: Clear air entry. RONCHI Heart : S1 & S2 normal with S4. No murmur. Abd : Soft non tender with normal bowel sounds. Neuro : Moves all ext. with no localized deficit. Ext : + edema with intact pulses.Non tender calves Derm : No rashes or decubitus ulcer. LABS/RADIOLOGY: URINE VRE ASSESSMENT/PLAN : CONT DIALYSIS IV AB MATTEO OT HOME Objective - Vital Signs/Intake and Output Vital Signs (last 24 hours): Temp Pulse Resp BP Pulse Ox 97.5 F L 72 18 86/53 L 97 10/10/17 11:35 10/10/17 11:35 10/10/17 11:35 10/10/17 11:35 10/10/17 11:35 Intake and Output: 10/10/17 10/10/17 11:59 23:59 Output Total 50 Balance -50 - Medications Medications: Current Medications Amiodarone HCl (Cordarone) 400 mg PO BID [facility] Last Admin: 10/10/17 11:09 Dose: Not Given Calcitriol (Rocaltrol) 0.5 mcg PO DAILY [facility] Last Admin: 10/10/17 11:10 Dose: Not Given Epoetin Pepe (Procrit) 10,000 unit IV [facility] Last Admin: 10/10/17 10:04 Dose: 10,000 unit Famotidine (Pepcid) 20 mg PO DAILY [facility] Last Admin: 10/10/17 11:09 Dose: Not Given Heparin Sodium (Porcine) (Heparin) 3,700 units IVP [facility] Stop: 10/19/17 09:01 Last Admin: 10/10/17 10:04 Dose: 3,700 units Ceftazidime/Avibactam 1.25 gm/ (Sodium Chloride) 100 mls @ 50 mls/hr IV Q24H [facility] Gentamicin Sulfate 100 mg/ (Sodium Chloride) 102.5 mls @ 100 mls/hr IVPB F [facility] Stop: 10/15/17 10:02 Last Admin: 10/10/17 12:06 Dose: 100 mls/hr Midodrine (Proamatine) 5 mg PO TID [facility] - Labs Labs: 10/10/17 06:26 10/10/17 06:26 PT 13.4 SECONDS (9.7-12.2) H 10/07/17 07:57 INR 1.2 10/07/17 07:57 APTT 36 SECONDS (21-34) H 10/07/17 07:57
--- NOTE | 2017-10-10 16:48 | CP.PCM.PN ---
Subjective - Date & Time of Evaluation Date of Evaluation: 10/10/17 Time of Evaluation: 16:47 - Subjective Subjective: Events and chart reviewed Objective - Vital Signs/Intake and Output Vital Signs (last 24 hours): Temp Pulse Resp BP Pulse Ox 97.5 F L 72 18 86/53 L 97 10/10/17 11:35 10/10/17 11:35 10/10/17 11:35 10/10/17 11:35 10/10/17 11:35 Intake and Output: 10/10/17 10/10/17 06:59 18:59 Intake Total 320 Output Total 350 Balance -30 - Medications Medications: Current Medications Amiodarone HCl (Cordarone) 400 mg PO BID [facility] Last Admin: 10/10/17 11:09 Dose: Not Given Calcitriol (Rocaltrol) 0.5 mcg PO DAILY [facility] Last Admin: 10/10/17 13:44 Dose: 0.5 mcg Epoetin Pepe (Procrit) 10,000 unit IV [facility] Last Admin: 10/10/17 10:04 Dose: 10,000 unit Famotidine (Pepcid) 20 mg PO DAILY [facility] Last Admin: 10/10/17 13:46 Dose: 20 mg Heparin Sodium (Porcine) (Heparin) 3,700 units IVP [facility] Stop: 10/19/17 09:01 Last Admin: 10/10/17 10:04 Dose: 3,700 units Ceftazidime/Avibactam 1.25 gm/ (Sodium Chloride) 100 mls @ 50 mls/hr IV Q24H [facility] Gentamicin Sulfate 100 mg/ (Sodium Chloride) 102.5 mls @ 100 mls/hr IVPB [facility] Stop: 10/15/17 10:02 Last Admin: 10/10/17 12:06 Dose: 100 mls/hr Midodrine (Proamatine) 5 mg PO TID [facility] Last Admin: 10/10/17 14:28 Dose: 5 mg - Labs Labs: 10/10/17 06:26 10/10/17 06:26 PT 13.4 SECONDS (9.7-12.2) H 10/07/17 07:57 INR 1.2 10/07/17 07:57 APTT 36 SECONDS (21-34) H 10/07/17 07:57 Assessment and Plan - Assessment and Plan (Free Text) Assessment: as reiterated earlier based on the clinical data he is a candidate for a device assuming ischemic disease of the myocardium and permanence of left ventricular systolic dysfunction and that he is not a candidate for revascularization of the coronaries Options include an external device with a life vest Plan: Life vest outpatient follow up Plan: RONIT wynne with life vest/Zoll
--- NOTE | 2017-10-10 18:25 | CARDCATH ---
PROCEDURE DATE: 10/04/2017 PROCEDURES: 1. Left heart catheterization. 2. Coronary angiogram. CLINICAL INDICATIONS: 1. Abnormal stress test. 2. Dyspnea. 3. Hypertension. 4. Chronic systolic congestive heart failure. REFERRING PHYSICIAN: Akhil Wang MD PERFORMING PHYSICIAN: Krishna Aparicio MD PROCEDURE IN DETAIL: After informed consent, patient was prepped and draped in the usual sterile fashion. Lidocaine 2% was given in the right groin for local anesthesia. Using micropuncture technique, 6F sheath was introduced into Right [employer] JL4 diagnostic catheter engaged into left main coronary artery. Contrast injected and left coronary angiogram was performed. JR4, 6-Swiss diagnostic catheter crossed into left ventricle across the aortic valve. LV end diastolic pressure measured. Contrast injected and LV angiogram was performed and the catheter was pulled back across the aortic valve into the aorta and the pressure gradient measured. The same JR4 catheter engaged into the right coronary artery. Contrast injected and right coronary angiogram was performed. Radiological supervision and radiological interpretation of the left heart catheterization and coronary angiogram was done. FINDINGS: 1. Left main coronary artery is patent. 2. LAD and diagonal branches are patent. 3. Mid left circumflex coronary artery has a 60% nonobstructive stenosis. Obtuse marginal branches are patent. 4. Right coronary artery is dominant and patent. 5. LV ejection fraction is 20%. Dilated left ventricle. End-diastolic pressure is 20. Global severe hypokinesis. CONCLUSIONS: Dilated nonischemic cardiomyopathy with an ejection fraction of 20%. PLAN: Recommend medical management. LifeVest and ICD evaluation Krishna Aparicio MD MTDD
--- NOTE | 2017-10-10 22:56 | CP.PCM.PN ---
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 HEENT : N. Resp : No cough, wheezing ,pleuritic CP ,or hemoptysis Cardio : No anginal CP, GI : No abd.pain, n/v ,diarrhea or GI bleeding . 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 Musculoskel : No joint swelling , Derm : No rash Psych : Normal affect. Ext : No swelling ,calf pain PE. Pt. is alert awake in no distress. V.S As noted in the chart Head ,ear nose,throat and eyes : Normal. Neck : Supple with normal carotids. Lungs: Clear air entry. RONCHI Heart : S1 & S2 normal with S4. No murmur. Abd : Soft non tender with normal bowel sounds. Neuro : Moves all ext. with no localized deficit. Ext : + edema with intact pulses.Non tender calves Derm : No rashes or decubitus ulcer. LABS/RADIOLOGY: .wbc 6.8 H/H 9.1/28.1 , PLATELETS 177. LFTS N Repeat UA 3+ urinary leukocytes, 2+ blood, 689 WBCs, 22 RBCs WBC clumps. REPEAT URINE CULTURE --MULTIPLE SPECIES ? CONTAMINANT. ASSESSMENT; *urosepsis-pseudomonas aeruginosa. * acute urinary retention s/p Foleys * BPH. 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 * acute renal failure s/p RT.IJ HD cathether 10/02/17. 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 DC IV AVYCAZ 1.25 G EVERY 24 HOURLY 10/09/17. ON iv GENTAMICIN 100 MG POST HEMODIALYSIS MWF.. X3 DOSES.10/10, 10/12,10/15/17. PLEASE GIVE ANTIBIOTIC POST HEMODIALYSIS ON HEMODIALYSIS DAYS. CASE DISCUSSED WITH THE STAFF AT LENGTH. HEMODIALYSIS PER RENAL. ? CAN WE GIVE A TRIAL OF VOIDING IF FEASABLE. TO DISCUSS WITH . Objective - Vital Signs/Intake and Output Vital Signs (last 24 hours): Temp Pulse Resp BP Pulse Ox 97.8 F 83 18 90/50 L 97 10/10/17 17:00 10/10/17 17:00 10/10/17 17:00 10/10/17 17:00 10/10/17 17:00 Intake and Output: 10/10/17 10/11/17 18:59 06:59 Intake Total 220 Output Total 50 Balance 170 - Medications Medications: Current Medications Amiodarone HCl (Cordarone) 400 mg PO BID [facility] Last Admin: 10/10/17 17:48 Dose: 400 mg Calcitriol (Rocaltrol) 0.5 mcg PO DAILY [facility] Last Admin: 10/10/17 13:44 Dose: 0.5 mcg Epoetin Pepe (Procrit) 10,000 unit IV [facility] Last Admin: 10/10/17 10:04 Dose: 10,000 unit Famotidine (Pepcid) 20 mg PO DAILY [facility] Last Admin: 10/10/17 13:46 Dose: 20 mg Heparin Sodium (Porcine) (Heparin) 3,700 units IVP [facility] Stop: 10/19/17 09:01 Last Admin: 10/10/17 10:04 Dose: 3,700 units Ceftazidime/Avibactam 1.25 gm/ (Sodium Chloride) 100 mls @ 50 mls/hr IV Q24H [facility] Last Admin: 10/10/17 17:49 Dose: 50 mls/hr Gentamicin Sulfate 100 mg/ (Sodium Chloride) 102.5 mls @ 100 mls/hr IVPB [facility] Stop: 10/15/17 10:02 Last Admin: 10/10/17 12:06 Dose: 100 mls/hr Midodrine (Proamatine) 5 mg PO TID [facility] Last Admin: 10/10/17 17:49 Dose: 5 mg - Labs Labs: 10/10/17 06:26 10/10/17 06:26 PT 13.4 SECONDS (9.7-12.2) H 10/07/17 07:57 INR 1.2 10/07/17 07:57 APTT 36 SECONDS (21-34) H 10/07/17 07:57 Assessment and Plan (1) UTI (urinary tract infection) Status: Acute (2) Acute urinary retention Status: Acute (3) Obstructed Beck catheter Status: Acute (4) Renal failure, acute on chronic Status: Acute (5) Cachexia Status: Acute (6) Cardiomyopathy Status: Acute (7) Benign prostatic hyperplasia Status: Acute (8) Hepatitis C antibody test positive Status: Acute
--- NOTE | 2017-10-11 09:40 | CP.PCM.PN ---
Subjective - Date & Time of Evaluation Date of Evaluation: 10/11/17 Time of Evaluation: 09:38 - Subjective Subjective: seen and examined s/p hd yesterday, cut short treatment to 2.5 h. unable to tolerate more hours due to weakness dizziness urine culture noted no nausea vomiting diarrhea sob chest pain fevers chills rash. sanon in place Objective - Vital Signs/Intake and Output Vital Signs (last 24 hours): Temp Pulse Resp BP Pulse Ox 97.9 F 80 20 96/57 L 97 10/11/17 07:20 10/11/17 07:20 10/11/17 07:20 10/11/17 07:20 10/11/17 07:20 Intake and Output: 10/11/17 10/11/17 06:59 18:59 Intake Total 220 Output Total 150 Balance 70 - Medications Medications: Current Medications Amiodarone HCl (Cordarone) 400 mg PO BID [facility] Last Admin: 10/10/17 17:48 Dose: 400 mg Calcitriol (Rocaltrol) 0.5 mcg PO DAILY [facility] Last Admin: 10/10/17 13:44 Dose: 0.5 mcg Epoetin Pepe (Procrit) 10,000 unit IV [facility] [place] Last Admin: 10/10/17 10:04 Dose: 10,000 unit Famotidine (Pepcid) 20 mg PO DAILY [facility] Last Admin: 10/10/17 13:46 Dose: 20 mg Heparin Sodium (Porcine) (Heparin) 3,700 units IVP [facility] [place] Stop: 10/19/17 09:01 Last Admin: 10/10/17 10:04 Dose: 3,700 units Gentamicin Sulfate 100 mg/ (Sodium Chloride) 102.5 mls @ 100 mls/hr IVPB [facility] [place] Stop: 10/15/17 10:02 Last Admin: 10/10/17 12:06 Dose: 100 mls/hr Midodrine (Proamatine) 5 mg PO TID [facility] Last Admin: 10/10/17 17:49 Dose: 5 mg - Labs Labs: 10/10/17 06:26 10/10/17 06:26 PT 13.4 SECONDS (9.7-12.2) H 10/07/17 07:57 INR 1.2 10/07/17 07:57 APTT 36 SECONDS (21-34) H 10/07/17 07:57 - Constitutional Appears: No Acute Distress, Cachectic, Chronically Ill - Head Exam Head Exam: NORMAL INSPECTION - Eye Exam Eye Exam: Normal appearance Pupil Exam: PERRL - ENT Exam ENT Exam: Mucous Membranes Moist, Normal Exam - Neck Exam Neck Exam: Normal Inspection - Respiratory Exam Respiratory Exam: Clear to Ausculation Bilateral, NORMAL BREATHING PATTERN - Cardiovascular Exam Cardiovascular Exam: REGULAR RHYTHM, RRR - GI/Abdominal Exam GI & Abdominal Exam: Distended, Soft - Exam Exam: NORMAL INSPECTION (sanon) - Extremities Exam Extremities Exam: Full ROM, Normal Inspection - Neurological Exam Neurological Exam: Alert, Awake, Oriented x3 - Psychiatric Exam Psychiatric exam: Normal Affect, Normal Mood - Skin Skin Exam: Normal Color Assessment and Plan (1) UTI (urinary tract infection) Status: Acute (2) Acute urinary retention Status: Acute (3) Obstructed Sanon catheter Status: Acute (4) Renal failure, acute on chronic Status: Acute (5) Cardiomyopathy Status: Acute (6) Urinary retention due to benign prostatic hyperplasia Status: Acute - Assessment and Plan (Free Text) Assessment: maintain hd mwf, outpt at [facility] awaiting life vest prior to dc to rehab
--- NOTE | 2017-10-11 13:44 | CP.PCM.DIS ---
Provider - Provider Date of Admission: 09/24/17 16:37 Attending physician: Akhil Wang MD Time Spent in preparation of Discharge (in minutes): 35 Hospital Course - Lab Results Lab Results: Micro Results 10/09/17 05:03 Urine,Catheterized Urine Culture - Final MULTIPLE SPECIES. SUGGEST REPEAT SPECIMEN. 10/02/17 08:00 Urine,Beck Urine Culture - Final Pseudomonas Aeruginosa 09/27/17 18:53 Urine,Catheterized Urine Culture - Final Escherichia Coli Vancomycin Res E.faecalis 09/24/17 13:53 Urine Urine Culture - Final Escherichia Coli Vancomycin Res E.faecalis Most Recent Lab Values WBC 6.8 K/uL (4.8-10.8) 10/10/17 06:26 RBC 2.94 Mil/uL (4.40-5.90) L 10/10/17 06:26 Hgb 9.1 g/dL (12.0-18.0) L 10/10/17 06:26 Hct 28.1 % (35.0-51.0) L 10/10/17 06:26 MCV 95.8 fL (80.0-94.0) H 10/10/17 06:26 MCH 31.1 pg (27.0-31.0) H 10/10/17 06:26 MCHC 32.4 g/dL (33.0-37.0) L 10/10/17 06:26 RDW 17.5 % (11.5-14.5) H 10/10/17 06:26 Plt Count 177 K/uL (130-400) 10/10/17 06:26 MPV 8.7 fL (7.2-11.7) 10/10/17 06:26 Neut % (Auto) 75.2 % (50.0-75.0) H 10/10/17 06:26 Lymph % (Auto) 14.7 % (20.0-40.0) L 10/10/17 06:26 [place] % (Auto) 8.5 % (0.0-10.0) 10/10/17 06:26 Eos % (Auto) 0.9 % (0.0-4.0) 10/10/17 06:26 Baso % (Auto) 0.7 % (0.0-2.0) 10/10/17 06:26 Neut # 5.1 K/uL (1.8-7.0) 10/10/17 06:26 Lymph # 1.0 K/uL (1.0-4.3) 10/10/17 06:26 [place] # 0.6 K/uL (0.0-0.8) 10/10/17 06:26 Eos # 0.1 K/uL (0.0-0.7) 10/10/17 06:26 Baso # 0.0 K/uL (0.0-0.2) 10/10/17 06:26 Neutrophils % (Manual) 87 % (50-75) H 09/25/17 07:52 Lymphocytes % (Manual) 5 % (20-40) L 09/25/17 07:52 Monocytes % (Manual) 7 % (0-10) 09/25/17 07:52 Eosinophils % (Manual) 1 % (0-4) 09/25/17 07:52 Platelet Estimate Normal (NORMAL) 09/25/17 07:52 Polychromasia Slight 09/25/17 07:52 Hypochromasia (manual) Slight 09/25/17 07:52 Anisocytosis (manual) Slight 09/25/17 07:52 Target Cells Slight 09/25/17 07:52 PT 13.4 SECONDS (9.7-12.2) H 10/07/17 07:57 INR 1.2 10/07/17 07:57 APTT 36 SECONDS (21-34) H 10/07/17 07:57 Sodium 132 mmol/L (132-148) 10/10/17 06:26 Potassium 4.8 mmol/L (3.6-5.2) 10/10/17 06:26 Chloride 100 mmol/L (98-107) 10/10/17 06:26 Carbon Dioxide 22 mmol/L (22-30) 10/10/17 06:26 Anion Gap 15 (10-20) 10/10/17 06:26 BUN 63 mg/dL (9-20) H 10/10/17 06:26 Creatinine 7.2 mg/dL (0.8-1.5) H 10/10/17 06:26 Est GFR ( Amer) 9 10/10/17 06:26 Est GFR (Non-Af Amer) 7 10/10/17 06:26 POC Glucose (mg/dL) 144 mg/dL (65-110) H 09/30/17 11:57 Random Glucose 93 mg/dL (75-110) 10/10/17 06:26 Calcium 8.1 mg/dl (8.6-10.4) L 10/10/17 06:26 Phosphorus 4.9 mg/dL (2.5-4.5) H 10/05/17 07:39 % Saturation 12 (20-55) L 09/28/17 06:41 Ferritin 172.0 ng/mL 09/28/17 06:41 Total Bilirubin 0.5 mg/dL (0.2-1.3) 10/10/17 06:26 AST 26 U/L (17-59) 10/10/17 06:26 ALT 20 U/L (21-72) L D 10/10/17 06:26 Alkaline Phosphatase 89 U/L (38-126) 10/10/17 06:26 Total Protein 7.1 g/dL (6.3-8.3) 10/10/17 06:26 Albumin 3.2 g/dL (3.5-5.0) L 10/10/17 06:26 Globulin 3.9 gm/dL (2.2-3.9) 10/10/17 06:26 Albumin/Globulin Ratio 0.8 (1.0-2.1) L 10/10/17 06:26 PTH Intact Whole Molec 257 pg/mL (14-64) H 09/28/17 06:41 Cortisol AM Sample 14.4 ug/dL (4.46-22.7) 10/06/17 06:29 Urine Color Yellow (YELLOW) 10/09/17 17:19 Urine Clarity Hazy (Clear) 10/09/17 17:19 Urine pH 5.0 (5.0-8.0) 10/09/17 17:19 Ur Specific [place] 1.016 (1.003-1.030) 10/09/17 17:19 Urine Protein 2+ mg/dL (NEGATIVE) H 10/09/17 17:19 Urine Glucose (UA) Normal mg/dL (Normal) 10/09/17 17:19 Urine Ketones Negative mg/dL (NEGATIVE) 10/09/17 17:19 Urine Blood 2+ (NEGATIVE) H 10/09/17 17:19 Urine Nitrate Negative (NEGATIVE) 10/09/17 17:19 Urine Bilirubin Negative (NEGATIVE) 10/09/17 17:19 Urine Urobilinogen Normal mg/dL (0.2-1.0) 10/09/17 17:19 Ur Leukocyte Esterase 3+ Brandon/uL (Negative) H 10/09/17 17:19 Urine WBC (Auto) 689 /hpf (0-5) H 10/09/17 17:19 Urine RBC (Auto) 22 /hpf (0-3) H 10/09/17 17:19 Urine WBC Clumps (Auto) Mod /hpf (NONE) H 10/09/17 17:19 Ur Squamous Epith Cells < 1 /hpf (0-5) 10/02/17 04:50 Urine Bacteria Many (<OCC) H 10/09/17 17:19 Stool Occult Blood Negative (NEGATIVE) 09/24/17 13:50 Hep Bs Antigen Negative (NEGATIVE) 09/28/17 06:41 Hep Bs Antibody Negative (NEGATIVE) 09/28/17 06:41 Hep B Core IgM Ab Negative (NEGATIVE) 09/28/17 06:41 Hepatitis C Antibody Reactive (NEGATIVE) 09/28/17 06:41 HCV RNA Genotype LiPA Not detected (Not Detected) 10/02/17 07:41 Blood Type O POSITIVE 10/07/17 07:57 Antibody Screen Negative 10/07/17 07:57 - Hospital Course Hospital Course: 72 years old male with a history of chronic renal failure. 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 According to the patient the catheter blocked and patient was unable to pass urine. In the emergency room patient had a BUn 138 and creatinine of 8.1 K was normal. Patient is now admitted for further evaluation. Patient had a similar episode in the last admission and patient refuses renal dialysis the last creatinine was 4.8. 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 Patient also has intermittent CHF with pleural effusion which required pleural tap on the last admission NEPHROLOGY /ID/VASCULAR CONSULTED PT UNDER [facility] HD 3 TIMES A WEEK WITH IMPROVEMENT OF CHF CARDIAC CATH WAS DONE WITH NON SIG. CAD WITH LVEF 15% LIFE VEST WAS GIVEN PRIOR TO D/C LEFT ARM AVF WAS PLACED URINE HAS PSEUDO +ESBL INFECTION CURRENTLY PT IS TRANSFERRED TO REHAB Discharge Exam - Head Exam Head Exam: NORMAL INSPECTION Discharge Plan - Follow Up Plan Condition: SERIOUS Disposition: HOME/ ROUTINE
[2017-10-12] MEDS: Epoetin Alfa 10,000 unit/ml Dialysis IV SCH (12:15)
--- NOTE | 2017-10-12 13:12 | PCM.HF ---
Heart Failure Core Measure - Heart Failure Ejection Fraction: Less Than 40 % ADAN Inhibitor Prescribed: No Contraindication/Reason for not providing: ESRD Contraindication/Reason for not providing: bp low 90,s Angiotensin II Receptor Juan Antonio Prescribed: No Contraindication/Reason for not providing: esrd AnticoagulationTherapy for Atrial Fibrillation/Atrialflutter: No Contraindication/Reason for not providing: no hx of afib Aldosterone Antagonist Prescribed: No Contraindication/Reason for not providing: ESRD / risk for hyperkalemia Hydralazine Nitrate Prescribed: No Contraindication/Reason for not providing: bp running low / on amiodorone Implantable Cardioverter Defibrillator Therapy: No Contraindication/Reason for not providing: on vest therapy trial Cardiac Resynchronization Therapy Prescribed: No Contraindication/Reason for not providing: on vest therapy trail - Follow up Will be discharged to: Intermediate Facility ([facility]) Follow Up Date (must be within 7 days from discharge): 10/16/17 Follow Up Time: 09:00
--- NOTE | 2017-10-12 13:18 | CP.PCM.PN ---
Subjective - Date & Time of Evaluation Date of Evaluation: 10/12/17 Time of Evaluation: 13:16 - Subjective Subjective: seen on hd tolerated well baseline bp in 80-90 range, asymptomatic on midodrine denies any weakness fevers chills sob chest pain dizziness palpitations nasuea vomiting diarrhea chronic indwelling sanon Objective - Vital Signs/Intake and Output Vital Signs (last 24 hours): Temp Pulse Resp BP Pulse Ox 97.4 F L 80 16 98/52 L 18 L 10/12/17 12:20 10/12/17 12:20 10/12/17 12:20 10/12/17 12:20 10/12/17 12:20 Intake and Output: 10/12/17 10/12/17 06:59 18:59 Intake Total 320 Output Total 180 Balance 140 - Medications Medications: Current Medications Amiodarone HCl (Cordarone) 400 mg PO BID [facility] Last Admin: 10/11/17 18:12 Dose: 400 mg Calcitriol (Rocaltrol) 0.5 mcg PO DAILY [facility] Last Admin: 10/11/17 11:00 Dose: 0.5 mcg Calcium Acetate (Phoslo) 667 mg PO TIDCC [facility] Last Admin: 10/12/17 08:53 Dose: 667 mg Epoetin Pepe (Procrit) 10,000 unit IV [facility] [place] Last Admin: 10/12/17 12:15 Dose: 10,000 unit Famotidine (Pepcid) 20 mg PO DAILY [facility] Last Admin: 10/11/17 11:00 Dose: 20 mg Heparin Sodium (Porcine) (Heparin) 3,700 units IVP [facility] [place] Stop: 10/19/17 09:01 Last Admin: 10/12/17 12:15 Dose: 3,700 units Gentamicin Sulfate 100 mg/ (Sodium Chloride) 52.5 mls @ 100 mls/hr IVPB [facility] [place] Stop: 10/15/17 10:02 Midodrine (Proamatine) 2.5 mg PO TID [facility] Last Admin: 10/12/17 10:52 Dose: 2.5 mg Tamsulosin HCl (Flomax) 0.4 mg PO DAILY [facility] Vitamin B Complex/Vit C/Folic Acid (Nephro-Aleksandra) 1 tab PO DAILY [facility] - Labs Labs: 10/10/17 06:26 10/10/17 06:26 PT 13.4 SECONDS (9.7-12.2) H 10/07/17 07:57 INR 1.2 10/07/17 07:57 APTT 36 SECONDS (21-34) H 10/07/17 07:57 - Constitutional Appears: No Acute Distress, Cachectic, Chronically Ill - Head Exam Head Exam: NORMAL INSPECTION - Eye Exam Eye Exam: Normal appearance Pupil Exam: NORMAL ACCOMODATION - ENT Exam ENT Exam: Mucous Membranes Moist, Normal Exam - Neck Exam Neck Exam: Full ROM, Normal Inspection - Respiratory Exam Respiratory Exam: Clear to Ausculation Bilateral, NORMAL BREATHING PATTERN - Cardiovascular Exam Cardiovascular Exam: REGULAR RHYTHM, RRR - GI/Abdominal Exam GI & Abdominal Exam: Distended (sanon), Soft, Normal Bowel Sounds - Extremities Exam Extremities Exam: Full ROM, Normal Inspection - Neurological Exam Neurological Exam: Alert, Awake, Oriented x3 - Skin Skin Exam: Normal Color, Warm Assessment and Plan (1) UTI (urinary tract infection) Status: Acute (2) Acute urinary retention Status: Acute (3) Obstructed Sanon catheter Status: Acute (4) Renal failure, acute on chronic Status: Acute (5) Cardiomyopathy Status: Acute (6) Urinary retention due to benign prostatic hyperplasia Status: Acute - Assessment and Plan (Free Text) Assessment: maintain hd 3times/week stable from renal standpoint follow up w/ urology about sanon
[2017-10-12] MEDS: Multivitamin Vitamin B Complex (Nephro-Vite) Tab PO SCH (13:26)
--- NOTE | 2017-10-12 13:57 | CP.PCM.DIS ---
Provider - Provider Date of Admission: 09/24/17 16:37 Attending physician: Akhil Wang MD Time Spent in preparation of Discharge (in minutes): 35 Hospital Course - Lab Results Lab Results: Micro Results 10/09/17 05:03 Urine,Catheterized Urine Culture - Final MULTIPLE SPECIES. SUGGEST REPEAT SPECIMEN. 10/02/17 08:00 Urine,Beck Urine Culture - Final Pseudomonas Aeruginosa 09/27/17 18:53 Urine,Catheterized Urine Culture - Final Escherichia Coli Vancomycin Res E.faecalis 09/24/17 13:53 Urine Urine Culture - Final Escherichia Coli Vancomycin Res E.faecalis Most Recent Lab Values WBC 6.8 K/uL (4.8-10.8) 10/10/17 06:26 RBC 2.94 Mil/uL (4.40-5.90) L 10/10/17 06:26 Hgb 9.1 g/dL (12.0-18.0) L 10/10/17 06:26 Hct 28.1 % (35.0-51.0) L 10/10/17 06:26 MCV 95.8 fL (80.0-94.0) H 10/10/17 06:26 MCH 31.1 pg (27.0-31.0) H 10/10/17 06:26 MCHC 32.4 g/dL (33.0-37.0) L 10/10/17 06:26 RDW 17.5 % (11.5-14.5) H 10/10/17 06:26 Plt Count 177 K/uL (130-400) 10/10/17 06:26 MPV 8.7 fL (7.2-11.7) 10/10/17 06:26 Neut % (Auto) 75.2 % (50.0-75.0) H 10/10/17 06:26 Lymph % (Auto) 14.7 % (20.0-40.0) L 10/10/17 06:26 [place] % (Auto) 8.5 % (0.0-10.0) 10/10/17 06:26 Eos % (Auto) 0.9 % (0.0-4.0) 10/10/17 06:26 Baso % (Auto) 0.7 % (0.0-2.0) 10/10/17 06:26 Neut # 5.1 K/uL (1.8-7.0) 10/10/17 06:26 Lymph # 1.0 K/uL (1.0-4.3) 10/10/17 06:26 [place] # 0.6 K/uL (0.0-0.8) 10/10/17 06:26 Eos # 0.1 K/uL (0.0-0.7) 10/10/17 06:26 Baso # 0.0 K/uL (0.0-0.2) 10/10/17 06:26 Neutrophils % (Manual) 87 % (50-75) H 09/25/17 07:52 Lymphocytes % (Manual) 5 % (20-40) L 09/25/17 07:52 Monocytes % (Manual) 7 % (0-10) 09/25/17 07:52 Eosinophils % (Manual) 1 % (0-4) 09/25/17 07:52 Platelet Estimate Normal (NORMAL) 09/25/17 07:52 Polychromasia Slight 09/25/17 07:52 Hypochromasia (manual) Slight 09/25/17 07:52 Anisocytosis (manual) Slight 09/25/17 07:52 Target Cells Slight 09/25/17 07:52 PT 13.4 SECONDS (9.7-12.2) H 10/07/17 07:57 INR 1.2 10/07/17 07:57 APTT 36 SECONDS (21-34) H 10/07/17 07:57 Sodium 132 mmol/L (132-148) 10/10/17 06:26 Potassium 4.8 mmol/L (3.6-5.2) 10/10/17 06:26 Chloride 100 mmol/L (98-107) 10/10/17 06:26 Carbon Dioxide 22 mmol/L (22-30) 10/10/17 06:26 Anion Gap 15 (10-20) 10/10/17 06:26 BUN 63 mg/dL (9-20) H 10/10/17 06:26 Creatinine 7.2 mg/dL (0.8-1.5) H 10/10/17 06:26 Est GFR ( Amer) 9 10/10/17 06:26 Est GFR (Non-Af Amer) 7 10/10/17 06:26 POC Glucose (mg/dL) 144 mg/dL (65-110) H 09/30/17 11:57 Random Glucose 93 mg/dL (75-110) 10/10/17 06:26 Calcium 8.1 mg/dl (8.6-10.4) L 10/10/17 06:26 Phosphorus 4.9 mg/dL (2.5-4.5) H 10/05/17 07:39 % Saturation 12 (20-55) L 09/28/17 06:41 Ferritin 172.0 ng/mL 09/28/17 06:41 Total Bilirubin 0.5 mg/dL (0.2-1.3) 10/10/17 06:26 AST 26 U/L (17-59) 10/10/17 06:26 ALT 20 U/L (21-72) L D 10/10/17 06:26 Alkaline Phosphatase 89 U/L (38-126) 10/10/17 06:26 Total Protein 7.1 g/dL (6.3-8.3) 10/10/17 06:26 Albumin 3.2 g/dL (3.5-5.0) L 10/10/17 06:26 Globulin 3.9 gm/dL (2.2-3.9) 10/10/17 06:26 Albumin/Globulin Ratio 0.8 (1.0-2.1) L 10/10/17 06:26 PTH Intact Whole [place] 257 pg/mL (14-64) H 09/28/17 06:41 Cortisol AM Sample 14.4 ug/dL (4.46-22.7) 10/06/17 06:29 Urine Color Yellow (YELLOW) 10/09/17 17:19 Urine Clarity Hazy (Clear) 10/09/17 17:19 Urine pH 5.0 (5.0-8.0) 10/09/17 17:19 Ur Specific [place] 1.016 (1.003-1.030) 10/09/17 17:19 Urine Protein 2+ mg/dL (NEGATIVE) H 10/09/17 17:19 Urine Glucose (UA) Normal mg/dL (Normal) 10/09/17 17:19 Urine Ketones Negative mg/dL (NEGATIVE) 10/09/17 17:19 Urine Blood 2+ (NEGATIVE) H 10/09/17 17:19 Urine Nitrate Negative (NEGATIVE) 10/09/17 17:19 Urine Bilirubin Negative (NEGATIVE) 10/09/17 17:19 Urine Urobilinogen Normal mg/dL (0.2-1.0) 10/09/17 17:19 Ur Leukocyte Esterase 3+ Brandon/uL (Negative) H 10/09/17 17:19 Urine WBC (Auto) 689 /hpf (0-5) H 10/09/17 17:19 Urine RBC (Auto) 22 /hpf (0-3) H 10/09/17 17:19 Urine WBC Clumps (Auto) Mod /hpf (NONE) H 10/09/17 17:19 Ur Squamous Epith Cells < 1 /hpf (0-5) 10/02/17 04:50 Urine Bacteria Many (<OCC) H 10/09/17 17:19 Stool Occult Blood Negative (NEGATIVE) 09/24/17 13:50 Hep Bs Antigen Negative (NEGATIVE) 09/28/17 06:41 Hep Bs Antibody Negative (NEGATIVE) 09/28/17 06:41 Hep B Core IgM Ab Negative (NEGATIVE) 09/28/17 06:41 Hepatitis C Antibody Reactive (NEGATIVE) 09/28/17 06:41 HCV RNA Genotype LiPA Not detected (Not Detected) 10/02/17 07:41 Blood Type O POSITIVE 10/07/17 07:57 Antibody Screen Negative 10/07/17 07:57 - Hospital Course Hospital Course: SEE D/C NOTE OF 10/11/17 Discharge Exam - Head Exam Head Exam: NORMAL INSPECTION Discharge Plan - Follow Up Plan Condition: SERIOUS Disposition: HOME/ ROUTINE Additional Instructions: PLEASE ADMIT PATIENT UNDER DR. WANG SERVICE - CALL DR. WANG UPON PATIENT ARRIVAL TO [facility] CONTINUE HD SCHEDULED - [facility] [place] CONTINUE GENTAMYCIN X 2 DOSES POST HD ON 10/15/12- RX FAXED TO HD CENTER CONTINUE MEDICATION PER MED. REC. KEEP F/C IN UNTIL SEEN BY UROLOGIST - DR. HARRISON. Y- CALL AND MAKE APPOINTMENT T F/U WITH DR. KULKARNI OFFICE IN 2-3 WEEKS KEEP LIFE VEST ALL TIMES
--- NOTE | 2017-10-12 21:52 | PCM.URO ---
Urology Progress Note - General General: No Complaints, Tolerating Diet - Subjective Abdominal Pain: No Flank Pain: No Nausea: No Vomiting: No Voiding Well: No Hematuria: No Good Stream: No (catheter in place) Chest Pain: No Fever & Chills: No - Objective Lab Results Last 24 Hours: Laboratory Results - last 24 hr 10/12/17 21:09 Total Creatine Kinase 24 L Intake & Output: Intake & Output 10/12/17 10/12/17 10/13/17 06:59 18:59 06:59 Intake Total 320 Output Total 180 Balance 140 Intake: Oral 320 Output: Urine 180 Urethral (Beck) 180 Other: # Bowel Movements 0 Vital Signs: Vital Signs - 24 hr 10/12/17 10/12/17 10/12/17 01:24 07:00 09:50 Temperature 97.9 F 97.4 F L Pulse Rate 83 75 Pulse Rate [ 77 Right Brachial] Respiratory 20 18 Rate Blood Pressure 94/57 L 105/64 Blood Pressure 85/61 L [Right Arm] O2 Sat by Pulse 99 98 Oximetry 10/12/17 10/12/17 10/12/17 10:05 10:20 10:35 Temperature Pulse Rate Pulse Rate [ Right Brachial] Respiratory Rate Blood Pressure Blood Pressure 89/52 L 76/48 L 73/47 L [Right Arm] O2 Sat by Pulse Oximetry 10/12/17 10/12/17 10/12/17 10:50 11:20 11:50 Temperature Pulse Rate Pulse Rate [ Right Brachial] Respiratory Rate Blood Pressure Blood Pressure 84/49 L 92/55 L 91/53 L [Right Arm] O2 Sat by Pulse Oximetry 10/12/17 10/12/17 12:20 15:00 Temperature 97.4 F L 98 F Pulse Rate 77 Pulse Rate [ 80 Right Brachial] Respiratory 16 20 Rate Blood Pressure 100/57 L Blood Pressure 98/52 L [Right Arm] O2 Sat by Pulse 18 L 97 Oximetry - Physical Exam Abdominal Exam: Soft, Non-Tender, Non-Distended Back: No CVA Tenderness Genitalia: Without Inflammation Urinary Catheter Draining Well: Yes Urine Color: Yellow - Plan Catheter Care: Yes Intake & Output: Yes Additional Information: IMP: urinary retention. enlarged prostate. renal failure, on HD. CHF. Arrhythmia, wearing lifevest defibrillator - Date & Time of Note Date: 10/12/17 Time: 10:50
[2017-10-12 22:05] LABS: CK-MB 1.66 ng/mL (0.0-3.38); TROPONIN I 0.044 ng/mL (0.00-0.120)
--- NOTE | 2017-10-12 22:51 | CP.PCM.PN ---
Subjective - Date & Time of Evaluation Date of Evaluation: 10/12/17 Time of Evaluation: 22:50 - Subjective Subjective: afebrile, S/P HD TODAY. OFFERS NO COMPLAINTS. WEARING LIFE- VEST CASE DISCUSSED W STAFF. ANTIBIOTICS DISCUSSED +VE CHRONIC INDWELLING FOLYS. SEEN BY . TO KEEP FOLY FOR BPH /URINARY RETENTION. Objective - Vital Signs/Intake and Output Vital Signs (last 24 hours): Temp Pulse Resp BP Pulse Ox 98 F 77 20 100/57 L 97 10/12/17 15:00 10/12/17 15:00 10/12/17 15:00 10/12/17 15:00 10/12/17 15:00 - Medications Medications: Current Medications Amiodarone HCl (Cordarone) 400 mg PO BID [facility] Last Admin: 10/12/17 18:19 Dose: Not Given Calcitriol (Rocaltrol) 0.5 mcg PO DAILY [facility] Last Admin: 10/12/17 13:25 Dose: 0.5 mcg Calcium Acetate (Phoslo) 667 mg PO TIDCC [facility] Last Admin: 10/12/17 18:19 Dose: 667 mg Epoetin Pepe (Procrit) 10,000 unit IV [facility] [place] Last Admin: 10/12/17 12:15 Dose: 10,000 unit Famotidine (Pepcid) 20 mg PO DAILY [facility] Last Admin: 10/12/17 13:25 Dose: 20 mg Heparin Sodium (Porcine) (Heparin) 3,700 units IVP [facility] [place] Stop: 10/19/17 09:01 Last Admin: 10/12/17 12:15 Dose: 3,700 units Gentamicin Sulfate 100 mg/ (Sodium Chloride) 52.5 mls @ 100 mls/hr IVPB [facility] Stop: 10/15/17 10:02 Last Admin: 10/12/17 13:26 Dose: 100 mls/hr Midodrine (Proamatine) 2.5 mg PO TID [facility] Last Admin: 10/12/17 18:19 Dose: 2.5 mg Tamsulosin HCl (Flomax) 0.4 mg PO DAILY [facility] Last Admin: 10/12/17 13:26 Dose: 0.4 mg Vitamin B Complex/Vit C/Folic Acid (Nephro-Aleksandra) 1 tab PO DAILY [facility] Last Admin: 10/12/17 13:26 Dose: 1 tab - Labs Labs: 10/10/17 06:26 10/10/17 06:26 PT 13.4 SECONDS (9.7-12.2) H 10/07/17 07:57 INR 1.2 10/07/17 07:57 APTT 36 SECONDS (21-34) H 10/07/17 07:57 - Constitutional Appears: No Acute Distress, Cachectic, Chronically Ill - Head Exam Head Exam: NORMAL INSPECTION - Eye Exam Eye Exam: EOMI, PERRL - ENT Exam ENT Exam: Normal Oropharynx - Neck Exam Neck Exam: Normal Inspection - Respiratory Exam Respiratory Exam: Clear to Ausculation Bilateral - Cardiovascular Exam Cardiovascular Exam: REGULAR RHYTHM, +S1, +S2 - GI/Abdominal Exam GI & Abdominal Exam: Soft, Normal Bowel Sounds - Extremities Exam Extremities Exam: absent: Calf Tenderness, Pedal Edema (HYPERPIGMENTED SKIN LE. SKIN DRY.) - Neurological Exam Neurological Exam: Awake, CN II-XII Intact, Oriented x3 - Psychiatric Exam Psychiatric exam: Normal Mood - Skin Skin Exam: Normal Color, Warm Assessment and Plan (1) UTI (urinary tract infection) Assessment & Plan: REPEAT URINE CULTURE-MULTIPLE ORGS- ? CONTAMINANT. ON IV GENTAMICIN LAST DOSE 10/15/17 DISCUSSED W STAFF. PT CAN GET THAT WITH HD . Status: Acute (2) Acute urinary retention Assessment & Plan: +VE CHRONIC FOLYS PER . Status: Acute (3) Obstructed Beck catheter Status: Acute (4) Renal failure, acute on chronic Assessment & Plan: ON HD MWF. LT AVF +VE BRUIT. Status: Acute (5) Cachexia Status: Acute (6) Cardiomyopathy Status: Acute (7) Benign prostatic hyperplasia Status: Acute (8) Hepatitis C antibody test positive Status: Acute
--- NOTE | 2017-10-13 09:58 | CP.PCM.PN ---
Subjective - Date & Time of Evaluation Date of Evaluation: 10/13/17 Time of Evaluation: 09:55 - Subjective Subjective: Notes reviewed Patient described cp episode overnight and testing that was completed No pain currently No sob or cough Tolerated hd 10/12 without difficulty or hypotension D/c planning noted Does not want to wear life vest due to discomfort Objective - Vital Signs/Intake and Output Vital Signs (last 24 hours): Temp Pulse Resp BP Pulse Ox 97.8 F 81 20 98/60 L 98 10/13/17 08:36 10/13/17 08:36 10/13/17 08:36 10/13/17 08:36 10/13/17 08:36 Intake and Output: 10/13/17 10/13/17 06:59 18:59 Output Total 275 Balance -275 - Medications Medications: Current Medications Amiodarone HCl (Cordarone) 400 mg PO BID [facility] Last Admin: 10/12/17 18:19 Dose: Not Given Calcitriol (Rocaltrol) 0.5 mcg PO DAILY [facility] Last Admin: 10/12/17 13:25 Dose: 0.5 mcg Calcium Acetate (Phoslo) 667 mg PO TIDCC [facility] Last Admin: 10/12/17 18:19 Dose: 667 mg Epoetin Pepe (Procrit) 10,[address] [facility] Last Admin: 10/12/17 12:15 Dose: 10,000 unit Famotidine (Pepcid) 20 mg PO DAILY [facility] Last Admin: 10/12/17 13:25 Dose: 20 mg Heparin Sodium (Porcine) (Heparin) 3,[address] [facility] Stop: 10/19/17 09:01 Last Admin: 10/12/17 12:15 Dose: 3,700 units Gentamicin Sulfate 100 mg/ (Sodium Chloride) 52.5 mls @ 100 mls/hr IVPB [facility] Stop: 10/15/17 10:02 Last Admin: 10/12/17 13:26 Dose: 100 mls/hr Midodrine (Proamatine) 2.5 mg PO TID [facility] Last Admin: 10/12/17 18:19 Dose: 2.5 mg Tamsulosin HCl (Flomax) 0.4 mg PO DAILY [facility] Last Admin: 10/12/17 13:26 Dose: 0.4 mg Vitamin B Complex/Vit C/Folic Acid (Nephro-Aleksandra) 1 tab PO DAILY [facility] Last Admin: 10/12/17 13:26 Dose: 1 tab - Labs Labs: 10/10/17 06:26 10/10/17 06:26 PT 13.4 SECONDS (9.7-12.2) H 10/07/17 07:57 INR 1.2 10/07/17 07:57 APTT 36 SECONDS (21-34) H 10/07/17 07:57 - Constitutional Appears: Well, Non-toxic - Head Exam Head Exam: ATRAUMATIC, NORMAL INSPECTION - Eye Exam Eye Exam: EOMI, Normal appearance - ENT Exam ENT Exam: Mucous Membranes Moist, Normal Oropharynx - Respiratory Exam Respiratory Exam: Clear to Ausculation Bilateral. absent: Rhonchi - Cardiovascular Exam Cardiovascular Exam: +S1, +S2. absent: Rubs - GI/Abdominal Exam GI & Abdominal Exam: Soft, Normal Bowel Sounds - Extremities Exam Extremities Exam: absent: Pedal Edema, Tenderness - Neurological Exam Neurological Exam: Alert, Awake, Oriented x3 - Skin Skin Exam: Dry, Normal Color, Warm Assessment and Plan (1) Acute urinary retention Status: Acute (2) Benign prostatic hyperplasia Status: Acute (3) ESRD (end stage renal disease) on dialysis Status: Acute (4) Hepatitis C antibody test positive Status: Acute (5) Renal failure, acute on chronic Status: Acute (6) UTI (urinary tract infection) Status: Acute - Assessment and Plan (Free Text) Assessment: Maintain dialysis schedule Bp stable recent troponin negative Await cardiology follow up Continue current care Stable renal mac
[2017-10-13] MEDS: Multivitamin Vitamin B Complex (Nephro-Vite) Tab PO SCH (12:09)
--- NOTE | 2017-10-13 14:35 | CP.PCM.PN ---
Subjective - Date & Time of Evaluation Date of Evaluation: 10/13/17 Time of Evaluation: 14:34 - Subjective Subjective: CHIEF COMPLAINTS TODAY : SOB LESS TRANSFER TO [facility] POSTPONED DUE TO INS. ISSUES ROS. HEENT : N. Resp : No cough, wheezing ,pleuritic CP ,or hemoptysis Cardio : No anginal CP, GI : No abd.pain, n/v ,diarrhea or GI bleeding . 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 Musculoskel : No joint swelling , Derm : No rash Psych : Normal affect. Ext : No swelling ,calf pain PE. Pt. is alert awake in no distress. V.S As noted in the chart Head ,ear nose,throat and eyes : Normal. Neck : Supple with normal carotids. Lungs: Clear air entry. RONCHI Heart : S1 & S2 normal with S4. No murmur. Abd : Soft non tender with normal bowel sounds. Neuro : Moves all ext. with no localized deficit. Ext : + edema with intact pulses.Non tender calves Derm : No rashes or decubitus ulcer. LABS/RADIOLOGY: URINE VRE ASSESSMENT/PLAN : CONT DIALYSIS Objective - Vital Signs/Intake and Output Vital Signs (last 24 hours): Temp Pulse Resp BP Pulse Ox 97.8 F 78 20 98/60 L 98 10/13/17 08:36 10/13/17 09:00 10/13/17 08:36 10/13/17 08:36 10/13/17 08:36 Intake and Output: 10/13/17 10/13/17 11:59 23:59 Output Total 275 Balance -275 - Medications Medications: Current Medications Amiodarone HCl (Cordarone) 400 mg PO BID [facility] Last Admin: 10/13/17 12:10 Dose: 400 mg Calcitriol (Rocaltrol) 0.5 mcg PO DAILY [facility] Last Admin: 10/13/17 10:11 Dose: 0.5 mcg Calcium Acetate (Phoslo) 667 mg PO TIDCC REPLAC[facility] Last Admin: 10/13/17 12:10 Dose: 667 mg Epoetin Pepe (Procrit) 10,000 unit IV MWF [facility] Last Admin: 10/12/17 12:15 Dose: 10,000 unit Famotidine (Pepcid) 20 mg PO DAILY [facility] Last Admin: 10/13/17 10:10 Dose: 20 mg Heparin Sodium (Porcine) (Heparin) 3,700 units IVP [facility] Stop: 10/19/17 09:01 Last Admin: 10/12/17 12:15 Dose: 3,700 units Gentamicin Sulfate 100 mg/ (Sodium Chloride) 52.5 mls @ 100 mls/hr IVPB [facility] Stop: 10/15/17 10:02 Last Admin: 10/12/17 13:26 Dose: 100 mls/hr Midodrine (Proamatine) 2.5 mg PO TID [facility] Last Admin: 10/13/17 10:10 Dose: 2.5 mg Tamsulosin HCl (Flomax) 0.4 mg PO DAILY [facility] Last Admin: 10/13/17 10:10 Dose: 0.4 mg Vitamin B Complex/Vit C/Folic Acid (Nephro-Aleksandra) 1 tab PO DAILY [facility] Last Admin: 10/13/17 12:09 Dose: Not Given - Labs Labs: 10/10/17 06:26 10/10/17 06:26 PT 13.4 SECONDS (9.7-12.2) H 10/07/17 07:57 INR 1.2 10/07/17 07:57 APTT 36 SECONDS (21-34) H 10/07/17 07:57
[2017-10-14] MEDS: Multivitamin Vitamin B Complex (Nephro-Vite) Tab PO SCH (10:22)
--- NOTE | 2017-10-14 15:27 | CP.PCM.PN ---
Subjective - Date & Time of Evaluation Date of Evaluation: 10/14/17 Time of Evaluation: 15:27 - Subjective Subjective: CHIEF COMPLAINTS TODAY : SOB LESS TRANSFER TO [facility] POSTPONED DUE TO INS. ISSUES ROS. HEENT : N. Resp : No cough, wheezing ,pleuritic CP ,or hemoptysis Cardio : No anginal CP, GI : No abd.pain, n/v ,diarrhea or GI bleeding . 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 Musculoskel : No joint swelling , Derm : No rash Psych : Normal affect. Ext : No swelling ,calf pain PE. Pt. is alert awake in no distress. V.S As noted in the chart Head ,ear nose,throat and eyes : Normal. Neck : Supple with normal carotids. Lungs: Clear air entry. RONCHI Heart : S1 & S2 normal with S4. No murmur. Abd : Soft non tender with normal bowel sounds. Neuro : Moves all ext. with no localized deficit. Ext : + edema with intact pulses.Non tender calves Derm : No rashes or decubitus ulcer. LABS/RADIOLOGY: URINE VRE ASSESSMENT/PLAN : CONT DIALYSIS Objective - Vital Signs/Intake and Output Vital Signs (last 24 hours): Temp Pulse Resp BP Pulse Ox 97.5 F L 81 20 107/66 97 10/14/17 09:31 10/14/17 09:31 10/14/17 09:31 10/14/17 09:31 10/14/17 09:31 Intake and Output: 10/14/17 10/14/17 11:59 23:59 Intake Total 600 Output Total 375 Balance 225 - Medications Medications: Current Medications Amiodarone HCl (Cordarone) 400 mg PO BID [facility] Last Admin: 10/14/17 10:24 Dose: 400 mg Calcitriol (Rocaltrol) 0.5 mcg PO DAILY [facility] Last Admin: 10/14/17 10:22 Dose: 0.5 mcg Calcium Acetate (Phoslo) 667 mg PO TIDCC [facility] Last Admin: 10/14/17 15:15 Dose: Not Given Epoetin Pepe (Procrit) 10,000 unit IV MWF [facility] Last Admin: 10/12/17 12:15 Dose: 10,000 unit Famotidine (Pepcid) 20 mg PO DAILY [facility] Last Admin: 10/14/17 10:24 Dose: 20 mg Gentamicin Sulfate 100 mg/ (Sodium Chloride) 52.5 mls @ 100 mls/hr IVPB MWF [facility] Stop: 10/15/17 10:02 Last Admin: 10/12/17 13:26 Dose: 100 mls/hr Midodrine (Proamatine) 2.5 mg PO TID [facility] Last Admin: 10/14/17 13:33 Dose: 2.5 mg Tamsulosin HCl (Flomax) 0.4 mg PO DAILY [facility] Last Admin: 10/14/17 10:22 Dose: 0.4 mg Vitamin B Complex/Vit C/Folic Acid (Nephro-Aleksandra) 1 tab PO DAILY [facility] Last Admin: 10/14/17 10:22 Dose: 1 tab - Labs Labs: 10/10/17 06:26 10/10/17 06:26 PT 13.4 SECONDS (9.7-12.2) H 10/07/17 07:57 INR 1.2 10/07/17 07:57 APTT 36 SECONDS (21-34) H 10/07/17 07:57
--- NOTE | 2017-10-15 08:09 | CP.PCM.PN ---
Subjective - Date & Time of Evaluation Date of Evaluation: 10/15/17 Time of Evaluation: 08:07 - Subjective Subjective: events noted stable overnight hd planned for tomorrow pt consistently cutting dialysis treatments to 2.5H , citing dizziness and weakness worried about dc to rehab. unable to walk to bathroom c/o chest pain that occured 3 days ago, resolved in 45 min. Per pt- ekg and troponins were negative Objective - Vital Signs/Intake and Output Vital Signs (last 24 hours): Temp Pulse Resp BP Pulse Ox 98 F 72 20 96/56 L 97 10/14/17 23:15 10/14/17 23:15 10/14/17 23:15 10/14/17 23:15 10/14/17 23:15 - Medications Medications: Current Medications Amiodarone HCl (Cordarone) 400 mg PO BID [facility] Last Admin: 10/14/17 17:53 Dose: 400 mg Calcitriol (Rocaltrol) 0.5 mcg PO DAILY [facility] Last Admin: 10/14/17 10:22 Dose: 0.5 mcg Calcium Acetate (Phoslo) 667 mg PO TIDCC [facility] Last Admin: 10/14/17 17:53 Dose: 667 mg Epoetin Pepe (Procrit) 10,000 unit IV MWF [facility] Last Admin: 10/12/17 12:15 Dose: 10,000 unit Famotidine (Pepcid) 20 mg PO DAILY [facility] Last Admin: 10/14/17 10:24 Dose: 20 mg Gentamicin Sulfate 100 mg/ (Sodium Chloride) 52.5 mls @ 100 mls/hr IVPB MWF [facility] Stop: 10/15/17 10:02 Last Admin: 10/12/17 13:26 Dose: 100 mls/hr Midodrine (Proamatine) 2.5 mg PO TID [facility] Last Admin: 10/14/17 17:53 Dose: 2.5 mg Tamsulosin HCl (Flomax) 0.4 mg PO DAILY [facility] Last Admin: 10/14/17 10:22 Dose: 0.4 mg Vitamin B Complex/Vit C/Folic Acid (Nephro-Aleksandra) 1 tab PO DAILY [facility] Last Admin: 10/14/17 10:22 Dose: 1 tab - Labs Labs: 10/10/17 06:26 10/10/17 06:26 PT 13.4 SECONDS (9.7-12.2) H 10/07/17 07:57 INR 1.2 10/07/17 07:57 APTT 36 SECONDS (21-34) H 10/07/17 07:57 - Constitutional Appears: Non-toxic, No Acute Distress, Cachectic, Chronically Ill - Head Exam Head Exam: NORMAL INSPECTION - Eye Exam Eye Exam: Normal appearance Pupil Exam: PERRL - ENT Exam ENT Exam: Mucous Membranes Moist, Normal Exam - Neck Exam Neck Exam: Full ROM, Normal Inspection - Respiratory Exam Respiratory Exam: Clear to Ausculation Bilateral, NORMAL BREATHING PATTERN - Cardiovascular Exam Cardiovascular Exam: REGULAR RHYTHM, RRR - GI/Abdominal Exam GI & Abdominal Exam: Soft, Normal Bowel Sounds - Extremities Exam Extremities Exam: Normal Inspection (lue av fistula. rt chest permcath) - Neurological Exam Neurological Exam: Alert, Awake, Oriented x3 - Psychiatric Exam Psychiatric exam: Normal Affect, Normal Mood - Skin Skin Exam: Dry, Intact Assessment and Plan (1) Acute urinary retention Status: Acute (2) Renal failure, acute on chronic Status: Acute (3) Cardiomyopathy Status: Acute (4) Urinary retention due to benign prostatic hyperplasia Status: Acute - Assessment and Plan (Free Text) Assessment: maintain hd, next treatment tomorrow cardiac management MATTEO placement
[2017-10-15] MEDS: Multivitamin Vitamin B Complex (Nephro-Vite) Tab PO SCH (09:34)
[2017-10-15] MEDS: Epoetin Alfa 10,000 unit/ml Dialysis IV SCH (10:21)
--- NOTE | 2017-10-15 14:05 | CP.PCM.PN ---
Subjective - Date & Time of Evaluation Date of Evaluation: 10/15/17 Time of Evaluation: 14:04 - Subjective Subjective: CHIEF COMPLAINTS TODAY : SOB LESS TRANSFER TO [facility] POSTPONED DUE TO INS. ISSUES ROS. HEENT : N. Resp : No cough, wheezing ,pleuritic CP ,or hemoptysis Cardio : No anginal CP, GI : No abd.pain, n/v ,diarrhea or GI bleeding . 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 Musculoskel : No joint swelling , Derm : No rash Psych : Normal affect. Ext : No swelling ,calf pain PE. Pt. is alert awake in no distress. V.S As noted in the chart Head ,ear nose,throat and eyes : Normal. Neck : Supple with normal carotids. Lungs: Clear air entry. RONCHI Heart : S1 & S2 normal with S4. No murmur. Abd : Soft non tender with normal bowel sounds. Neuro : Moves all ext. with no localized deficit. Ext : + edema with intact pulses.Non tender calves Derm : No rashes or decubitus ulcer. LABS/RADIOLOGY: URINE VRE ASSESSMENT/PLAN : CONT DIALYSIS Objective - Vital Signs/Intake and Output Vital Signs (last 24 hours): Temp Pulse Resp BP Pulse Ox 96 F L 72 18 101/59 L 96 10/15/17 12:20 10/15/17 09:50 10/15/17 12:20 10/15/17 12:20 10/15/17 12:20 - Medications Medications: Current Medications Amiodarone HCl (Cordarone) 400 mg PO BID [facility] Last Admin: 10/15/17 09:26 Dose: 400 mg Calcitriol (Rocaltrol) 0.5 mcg PO DAILY [facility] Last Admin: 10/15/17 09:35 Dose: 0.5 mcg Calcium Acetate (Phoslo) 667 mg PO TIDCC [facility] Last Admin: 10/15/17 13:04 Dose: 667 mg Epoetin Pepe (Procrit) 10,000 unit IV MWF [facility] Last Admin: 10/15/17 10:21 Dose: 10,000 unit Famotidine (Pepcid) 20 mg PO DAILY [facility] Last Admin: 10/15/17 09:34 Dose: 20 mg Midodrine (Proamatine) 2.5 mg PO TID [facility] Last Admin: 10/15/17 13:04 Dose: 2.5 mg Tamsulosin HCl (Flomax) 0.4 mg PO DAILY [facility] Last Admin: 10/15/17 09:26 Dose: 0.4 mg Vitamin B Complex/Vit C/Folic Acid (Nephro-Aleksandra) 1 tab PO DAILY [facility] Last Admin: 10/15/17 09:34 Dose: 1 tab - Labs Labs: 10/10/17 06:26 10/10/17 06:26 PT 13.4 SECONDS (9.7-12.2) H 10/07/17 07:57 INR 1.2 10/07/17 07:57 APTT 36 SECONDS (21-34) H 10/07/17 07:57
--- NOTE | 2017-10-15 17:31 | CP.PCM.PN ---
Subjective - Date & Time of Evaluation Date of Evaluation: 10/15/17 Time of Evaluation: 17:31 - Subjective Subjective: AFEBRILE, NO MORE CHEST PAIN . PT VERY WEAK . NEEDS TO GO TO REHAB. AWAITING DR LANDAVERDE (INTERVENTIONAL CARDIOLOGY )FOR LIFEVEST QUESTIONS. PT FOR HD IN AM REPORTED Objective - Vital Signs/Intake and Output Vital Signs (last 24 hours): Temp Pulse Resp BP Pulse Ox 97.7 F 69 20 98/55 L 96 10/15/17 15:00 10/15/17 15:00 10/15/17 15:00 10/15/17 15:00 10/15/17 15:00 - Medications Medications: Current Medications Amiodarone HCl (Cordarone) 400 mg PO BID [facility] Last Admin: 10/15/17 09:26 Dose: 400 mg Calcitriol (Rocaltrol) 0.5 mcg PO DAILY [facility] Last Admin: 10/15/17 09:35 Dose: 0.5 mcg Calcium Acetate (Phoslo) 667 mg PO TIDCC [facility] Last Admin: 10/15/17 13:04 Dose: 667 mg Epoetin Pepe (Procrit) 10,000 unit IV MWF [facility] Last Admin: 10/15/17 10:21 Dose: 10,000 unit Famotidine (Pepcid) 20 mg PO DAILY [facility] Last Admin: 10/15/17 09:34 Dose: 20 mg Midodrine (Proamatine) 2.5 mg PO TID [facility] Last Admin: 10/15/17 13:04 Dose: 2.5 mg Tamsulosin HCl (Flomax) 0.4 mg PO DAILY [facility] Last Admin: 10/15/17 09:26 Dose: 0.4 mg Vitamin B Complex/Vit C/Folic Acid (Nephro-Aleksandra) 1 tab PO DAILY [facility] Last Admin: 10/15/17 09:34 Dose: 1 tab - Labs Labs: 10/10/17 06:26 10/10/17 06:26 PT 13.4 SECONDS (9.7-12.2) H 10/07/17 07:57 INR 1.2 10/07/17 07:57 APTT 36 SECONDS (21-34) H 10/07/17 07:57 - Constitutional Appears: No Acute Distress, Cachectic, Chronically Ill - Head Exam Head Exam: NORMAL INSPECTION - Eye Exam Eye Exam: EOMI, PERRL - ENT Exam ENT Exam: Normal Oropharynx - Neck Exam Neck Exam: Normal Inspection - Respiratory Exam Respiratory Exam: Clear to Ausculation Bilateral - Cardiovascular Exam Cardiovascular Exam: REGULAR RHYTHM, +S1, +S2 - GI/Abdominal Exam GI & Abdominal Exam: Soft, Normal Bowel Sounds - Extremities Exam Extremities Exam: absent: Calf Tenderness, Pedal Edema - Neurological Exam Neurological Exam: Abnormal Gait, Awake, Oriented x3 - Psychiatric Exam Psychiatric exam: Normal Mood - Skin Skin Exam: Normal Color, Warm Assessment and Plan (1) UTI (urinary tract infection) Assessment & Plan: REPEAT URINE CULTURE-MULTIPLE ORGS- ? CONTAMINANT. ON IV GENTAMICIN LAST DOSE 10/16/17 POST HD IN AM Status: Acute (2) Acute urinary retention Status: Acute (3) Obstructed Beck catheter Status: Acute (4) Renal failure, acute on chronic Assessment & Plan: ON HD MWF. LT AVF +VE BRUIT Status: Acute (5) Cachexia Status: Acute (6) Cardiomyopathy Status: Acute (7) Benign prostatic hyperplasia Status: Acute (8) Hepatitis C antibody test positive Status: Acute
--- NOTE | 2017-10-16 10:10 | CP.PCM.PN ---
Subjective - Date & Time of Evaluation Date of Evaluation: 10/16/17 Time of Evaluation: 10:08 - Subjective Subjective: seen and erxamined anxious about dc to rehab no further chest pain episodes but pt is very anxious about his heart and breathing cuts short hd time consistently, refusing to increasing midodrine dose sob w/ minimal exertion, no cp palpitations dizziness weakness numbness nausea vomiting rash Objective - Vital Signs/Intake and Output Vital Signs (last 24 hours): Temp Pulse Resp BP Pulse Ox 97.7 F 56 L 20 108/55 L 93 L 10/16/17 08:00 10/16/17 08:00 10/16/17 08:00 10/16/17 08:00 10/16/17 08:00 - Medications Medications: Current Medications Amiodarone HCl (Cordarone) 400 mg PO BID [facility] Last Admin: 10/15/17 17:42 Dose: 400 mg Calcitriol (Rocaltrol) 0.5 mcg PO DAILY [facility] Last Admin: 10/15/17 09:35 Dose: 0.5 mcg Calcium Acetate (Phoslo) 667 mg PO TIDCC [facility] Last Admin: 10/15/17 17:42 Dose: 667 mg Epoetin Pepe (Procrit) 10,000 unit IV MWF [facility] Last Admin: 10/15/17 10:21 Dose: 10,000 unit Famotidine (Pepcid) 20 mg PO DAILY [facility] Last Admin: 10/15/17 09:34 Dose: 20 mg Midodrine (Proamatine) 2.5 mg PO TID [facility] Last Admin: 10/15/17 17:43 Dose: 2.5 mg Tamsulosin HCl (Flomax) 0.4 mg PO DAILY [facility] Last Admin: 10/15/17 09:26 Dose: 0.4 mg Vitamin B Complex/Vit C/Folic Acid (Nephro-Aleksandra) 1 tab PO DAILY [facility] Last Admin: 10/15/17 09:34 Dose: 1 tab - Labs Labs: 10/10/17 06:26 10/10/17 06:26 PT 13.4 SECONDS (9.7-12.2) H 10/07/17 07:57 INR 1.2 10/07/17 07:57 APTT 36 SECONDS (21-34) H 10/07/17 07:57 - Constitutional Appears: No Acute Distress, Cachectic, Chronically Ill - Head Exam Head Exam: NORMAL INSPECTION - Eye Exam Eye Exam: Normal appearance, PERRL Pupil Exam: NORMAL ACCOMODATION - ENT Exam ENT Exam: Mucous Membranes Moist, Normal Exam - Neck Exam Neck Exam: Full ROM, Normal Inspection - Respiratory Exam Respiratory Exam: Decreased Breath Sounds, NORMAL BREATHING PATTERN - Cardiovascular Exam Cardiovascular Exam: REGULAR RHYTHM, RRR - GI/Abdominal Exam GI & Abdominal Exam: Distended, Soft, Normal Bowel Sounds - Extremities Exam Extremities Exam: Normal Inspection (chronic stasis, lue avf) - Neurological Exam Neurological Exam: Alert, Awake, Oriented x3 - Skin Skin Exam: Dry, Normal Color, Warm Assessment and Plan (1) Acute urinary retention Status: Acute (2) Renal failure, acute on chronic Status: Acute (3) Cardiomyopathy Status: Acute (4) Urinary retention due to benign prostatic hyperplasia Status: Acute - Assessment and Plan (Free Text) Assessment: maintain hd mwf, outpt placement [address] calcium improved, electrolytes stable cardiology management. maintain midodrine consider psych eval
[2017-10-16] MEDS: Multivitamin Vitamin B Complex (Nephro-Vite) Tab PO SCH (10:47)
--- NOTE | 2017-10-16 13:48 | CP.PCM.PN ---
Subjective - Date & Time of Evaluation Date of Evaluation: 10/16/17 Time of Evaluation: 13:48 - Subjective Subjective: CHIEF COMPLAINTS TODAY : SOB LESS TRANSFER TO [facility] POSTPONED DUE TO INS. ISSUES ROS. HEENT : N. Resp : No cough, wheezing ,pleuritic CP ,or hemoptysis Cardio : No anginal CP, GI : No abd.pain, n/v ,diarrhea or GI bleeding . 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 Musculoskel : No joint swelling , Derm : No rash Psych : Normal affect. Ext : No swelling ,calf pain PE. Pt. is alert awake in no distress. V.S As noted in the chart Head ,ear nose,throat and eyes : Normal. Neck : Supple with normal carotids. Lungs: Clear air entry. RONCHI Heart : S1 & S2 normal with S4. No murmur. Abd : Soft non tender with normal bowel sounds. Neuro : Moves all ext. with no localized deficit. Ext : + edema with intact pulses.Non tender calves Derm : No rashes or decubitus ulcer. LABS/RADIOLOGY: URINE VRE ASSESSMENT/PLAN : CONT DIALYSIS Objective - Vital Signs/Intake and Output Vital Signs (last 24 hours): Temp Pulse Resp BP Pulse Ox 97.7 F 56 L 20 108/55 L 93 L 10/16/17 08:00 10/16/17 08:00 10/16/17 08:00 10/16/17 08:00 10/16/17 08:00 - Medications Medications: Current Medications Amiodarone HCl (Cordarone) 400 mg PO BID [facility] Last Admin: 10/16/17 10:47 Dose: 400 mg Calcium Acetate (Phoslo) 667 mg PO TIDCC [facility] Last Admin: 10/16/17 13:28 Dose: 667 mg Epoetin Pepe (Procrit) 10,000 unit IV MWF [facility] Last Admin: 10/15/17 10:21 Dose: 10,000 unit Famotidine (Pepcid) 20 mg PO DAILY [facility] Last Admin: 10/16/17 10:47 Dose: 20 mg Midodrine (Proamatine) 2.5 mg PO TID [facility] Last Admin: 10/16/17 13:28 Dose: 2.5 mg Tamsulosin HCl (Flomax) 0.4 mg PO DAILY [facility] Last Admin: 10/16/17 10:47 Dose: 0.4 mg Vitamin B Complex/Vit C/Folic Acid (Nephro-Aleksandra) 1 tab PO DAILY [facility] Last Admin: 10/16/17 10:47 Dose: 1 tab - Labs Labs: 10/10/17 06:26 10/10/17 06:26 PT 13.4 SECONDS (9.7-12.2) H 10/07/17 07:57 INR 1.2 10/07/17 07:57 APTT 36 SECONDS (21-34) H 10/07/17 07:57
[2017-10-17 11:28] LABS: CALCIUM 7.5 mg/dl (8.6-10.4)
--- NOTE | 2017-10-17 11:38 | CARD ---
APPROVED REPORT EKG Measurement Heart [id number] <Conclusion> Normal sinus rhythm Nonspecific intraventricular conduction delay Nonspecific ST and T wave abnormality Prolonged QT Abnormal ECG
[2017-10-17] MEDS: Epoetin Alfa 10,000 unit/ml Dialysis IV SCH (12:21)
--- NOTE | 2017-10-17 12:35 | CP.PCM.PN ---
Subjective - Date & Time of Evaluation Date of Evaluation: 10/17/17 Time of Evaluation: 12:32 - Subjective Subjective: seen on Hd using catheter cuts time down to 21/2 hours notes chronic sob no nausea urinating normally weith sanon no chest pain no fever no abdominal pain no headache no rash no focal weakness no sinus tenderness Objective - Vital Signs/Intake and Output Vital Signs (last 24 hours): Temp Pulse Resp BP Pulse Ox 97.4 F L 72 24 98/64 L 97 10/17/17 10:15 10/17/17 10:15 10/17/17 10:15 10/17/17 11:45 10/17/17 10:15 Intake and Output: 10/17/17 10/17/17 06:59 18:59 Intake Total 240 Output Total 125 Balance 115 - Medications Medications: Current Medications Amiodarone HCl (Cordarone) 400 mg PO BID [facility] Last Admin: 10/17/17 11:37 Dose: Not Given Calcium Acetate (Phoslo) 667 mg PO TIDCC [facility] Last Admin: 10/17/17 09:00 Dose: Not Given Epoetin Pepe (Procrit) 10,000 unit IV MWF [facility] Last Admin: 10/17/17 12:21 Dose: 10,000 unit Famotidine (Pepcid) 20 mg PO DAILY [facility] Last Admin: 10/16/17 10:47 Dose: 20 mg Midodrine (Proamatine) 2.5 mg PO TID [facility] Last Admin: 10/17/17 11:38 Dose: Not Given Tamsulosin HCl (Flomax) 0.4 mg PO DAILY [facility] Last Admin: 10/16/17 10:47 Dose: 0.4 mg Vitamin B Complex/Vit C/Folic Acid (Nephro-Aleksandra) 1 tab PO DAILY [facility] Last Admin: 10/16/17 10:47 Dose: 1 tab - Labs Labs: 10/10/17 06:26 10/17/17 11:05 PT 13.4 SECONDS (9.7-12.2) H 10/07/17 07:57 INR 1.2 10/07/17 07:57 APTT 36 SECONDS (21-34) H 10/07/17 07:57 - Constitutional Appears: Non-toxic, Chronically Ill - Head Exam Head Exam: ATRAUMATIC - Eye Exam Eye Exam: EOMI - ENT Exam ENT Exam: Mucous Membranes Moist - Neck Exam Neck Exam: Full ROM. absent: Lymphadenopathy - Respiratory Exam Respiratory Exam: Decreased Breath Sounds. absent: Chest Wall Tenderness - Cardiovascular Exam Cardiovascular Exam: REGULAR RHYTHM. absent: Rubs - GI/Abdominal Exam GI & Abdominal Exam: Distended, Soft. absent: Tenderness - Extremities Exam Extremities Exam: absent: Pedal Edema - Neurological Exam Neurological Exam: Alert, Awake Assessment and Plan - Assessment and Plan (Free Text) Assessment: dialysis dependent indwelling sanon cardiomyopathy encourage compliance with dialysis continue UF as BP permits
--- NOTE | 2017-10-17 14:04 | CP.PCM.PN ---
Subjective - Date & Time of Evaluation Date of Evaluation: 10/17/17 Time of Evaluation: 14:03 - Subjective Subjective: CHIEF COMPLAINTS TODAY : SOB GOING TO BATHROOM TRANSFER TO [facility] POSTPONED DUE TO INS. ISSUES PT IS CUTTING DOWN THE DURATION OF DIALYSIS ROS. HEENT : N. Resp : No cough, wheezing ,pleuritic CP ,or hemoptysis Cardio : No anginal CP, GI : No abd.pain, n/v ,diarrhea or GI bleeding . 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 Musculoskel : No joint swelling , Derm : No rash Psych : Normal affect. Ext : No swelling ,calf pain PE. Pt. is alert awake in no distress. V.S As noted in the chart Head ,ear nose,throat and eyes : Normal. Neck : Supple with normal carotids. Lungs: Clear air entry. RONCHI Heart : S1 & S2 normal with S4. No murmur. Abd : Soft non tender with normal bowel sounds. Neuro : Moves all ext. with no localized deficit. Ext : + edema with intact pulses.Non tender calves Derm : No rashes or decubitus ulcer. LABS/RADIOLOGY: URINE VRE ASSESSMENT/PLAN : CONT DIALYSIS BP TOLERATED Objective - Vital Signs/Intake and Output Vital Signs (last 24 hours): Temp Pulse Resp BP Pulse Ox 97.3 F L 67 18 118/62 94 L 10/17/17 13:00 10/17/17 13:00 10/17/17 13:00 10/17/17 13:00 10/17/17 13:00 Intake and Output: 10/17/17 10/17/17 11:59 23:59 Output Total 50 Balance -50 - Medications Medications: Current Medications Amiodarone HCl (Cordarone) 400 mg PO BID [facility] Last Admin: 10/17/17 11:37 Dose: Not Given Calcium Acetate (Phoslo) 667 mg PO TIDCC [facility] Last Admin: 10/17/17 09:00 Dose: Not Given Epoetin Pepe (Procrit) 10,000 unit IV MWF [facility] Last Admin: 10/17/17 12:21 Dose: 10,000 unit Famotidine (Pepcid) 20 mg PO DAILY [facility] Last Admin: 10/16/17 10:47 Dose: 20 mg Midodrine (Proamatine) 2.5 mg PO TID [facility] Last Admin: 10/17/17 11:38 Dose: Not Given Tamsulosin HCl (Flomax) 0.4 mg PO DAILY [facility] Last Admin: 10/16/17 10:47 Dose: 0.4 mg Vitamin B Complex/Vit C/Folic Acid (Nephro-Aleksandra) 1 tab PO DAILY [facility] Last Admin: 10/16/17 10:47 Dose: 1 tab - Labs Labs: 10/10/17 06:26 10/17/17 11:05 PT 13.4 SECONDS (9.7-12.2) H 10/07/17 07:57 INR 1.2 10/07/17 07:57 APTT 36 SECONDS (21-34) H 10/07/17 07:57
[2017-10-17] MEDS: Multivitamin Vitamin B Complex (Nephro-Vite) Tab PO SCH (14:07)
[2017-10-18] MEDS: Multivitamin Vitamin B Complex (Nephro-Vite) Tab PO SCH (09:26)
--- NOTE | 2017-10-18 10:36 | CP.PCM.PN ---
Subjective - Date & Time of Evaluation Date of Evaluation: 10/18/17 Time of Evaluation: 10:33 - Subjective Subjective: c/o weakness post dialysis BP still low Does not tolerate dialysis well- refusing more than 150 mins Remains oliguric No f, chills, n, v, HAs, ; has MAYES still Objective - Vital Signs/Intake and Output Vital Signs (last 24 hours): Temp Pulse Resp BP Pulse Ox 97.7 F 85 20 103/56 L 99 10/18/17 08:30 10/18/17 08:30 10/18/17 08:30 10/18/17 08:30 10/18/17 08:30 Intake and Output: 10/18/17 10/18/17 06:59 18:59 Intake Total 240 Output Total 225 Balance 15 - Medications Medications: Current Medications Amiodarone HCl (Cordarone) 400 mg PO BID [facility] Last Admin: 10/18/17 09:26 Dose: 400 mg Calcium Acetate (Phoslo) 667 mg PO TIDCC [facility] Last Admin: 10/18/17 09:26 Dose: 667 mg Epoetin Pepe (Procrit) 10,000 unit IV MWF [facility] Last Admin: 10/17/17 12:21 Dose: 10,000 unit Famotidine (Pepcid) 20 mg PO DAILY [facility] Last Admin: 10/18/17 09:26 Dose: 20 mg Midodrine (Proamatine) 5 mg PO TID [facility] Tamsulosin HCl (Flomax) 0.4 mg PO DAILY [facility] Last Admin: 10/18/17 09:26 Dose: 0.4 mg Vitamin B Complex/Vit C/Folic Acid (Nephro-Aleksandra) 1 tab PO DAILY [facility] Last Admin: 10/18/17 09:26 Dose: 1 tab - Labs Labs: 10/10/17 06:26 10/17/17 11:05 PT 13.4 SECONDS (9.7-12.2) H 10/07/17 07:57 INR 1.2 10/07/17 07:57 APTT 36 SECONDS (21-34) H 10/07/17 07:57 - Constitutional Appears: No Acute Distress, Chronically Ill - Head Exam Head Exam: ATRAUMATIC, NORMAL INSPECTION - Eye Exam Eye Exam: EOMI, Normal appearance - Neck Exam Neck Exam: Normal Inspection. absent: Tenderness - Respiratory Exam Respiratory Exam: Rhonchi, NORMAL BREATHING PATTERN - Cardiovascular Exam Cardiovascular Exam: REGULAR RHYTHM, +S1 - GI/Abdominal Exam GI & Abdominal Exam: Soft. absent: Tenderness - Extremities Exam Extremities Exam: Normal Inspection. absent: Tenderness - Neurological Exam Neurological Exam: Awake, CN II-XII Intact - Skin Skin Exam: Dry, Warm Assessment and Plan (1) CKD (chronic kidney disease) stage 5, GFR less than 15 ml/min Status: Acute (2) Acute urinary retention Status: Acute (3) Obstructed Beck catheter Status: Acute (4) Cardiomyopathy Status: Acute (5) Hepatitis C antibody positive in blood Status: Acute (6) VRE (vancomycin resistant enterococcus) culture positive Status: Acute (7) ESRD (end stage renal disease) on dialysis Status: Acute (8) Hepatitis C antibody test positive Status: Acute - Assessment and Plan (Free Text) Plan: Decrease time on machine, UF rate Incraese midodrine dose Monitor dialysis access consider HD placement
--- NOTE | 2017-10-18 13:51 | CP.PCM.PN ---
Subjective - Date & Time of Evaluation Date of Evaluation: 10/18/17 Time of Evaluation: 13:51 - Subjective Subjective: CHIEF COMPLAINTS TODAY : SOB GOING TO BATHROOM TRANSFER TO [facility] POSTPONED DUE TO INS. ISSUES PT IS CUTTING DOWN THE DURATION OF DIALYSIS ROS. HEENT : N. Resp : No cough, wheezing ,pleuritic CP ,or hemoptysis Cardio : No anginal CP, GI : No abd.pain, n/v ,diarrhea or GI bleeding . VIDEO LIBRARY ASSISTANT : No headache, vertigo, focal deficit. Musculoskel : No joint swelling , Derm : No rash Psych : Normal affect. Ext : No swelling ,calf pain PE. Pt. is alert awake in no distress. V.S As noted in the chart Head ,ear nose,throat and eyes : Normal. Neck : Supple with normal carotids. Lungs: Clear air entry. RONCHI Heart : S1 & S2 normal with S4. No murmur. Abd : Soft non tender with normal bowel sounds. Neuro : Moves all ext. with no localized deficit. Ext : + edema with intact pulses.Non tender calves Derm : No rashes or decubitus ulcer. LABS/RADIOLOGY: URINE VRE ASSESSMENT/PLAN : CONT DIALYSIS BP TOLERATED Objective - Vital Signs/Intake and Output Vital Signs (last 24 hours): Temp Pulse Resp BP Pulse Ox 97.7 F 69 20 103/56 L 99 10/18/17 08:30 10/18/17 11:43 10/18/17 08:30 10/18/17 08:30 10/18/17 08:30 Intake and Output: 10/18/17 10/18/17 11:59 23:59 Output Total 75 Balance -75 - Medications Medications: Current Medications Amiodarone HCl (Cordarone) 400 mg PO BID [facility] Last Admin: 10/18/17 09:26 Dose: 400 mg Calcium Acetate (Phoslo) 667 mg PO TIDCC [facility] Last Admin: 10/18/17 13:32 Dose: 667 mg Epoetin Pepe (Procrit) 10,000 unit IV MWF [facility] Last Admin: 10/17/17 12:21 Dose: 10,000 unit Famotidine (Pepcid) 20 mg PO DAILY [facility] Last Admin: 10/18/17 09:26 Dose: 20 mg Midodrine (Proamatine) 5 mg PO TID [facility] Last Admin: 10/18/17 13:32 Dose: 5 mg Tamsulosin HCl (Flomax) 0.4 mg PO DAILY [facility] Last Admin: 10/18/17 09:26 Dose: 0.4 mg Vitamin B Complex/Vit C/Folic Acid (Nephro-Aleksandra) 1 tab PO DAILY [facility] Last Admin: 10/18/17 09:26 Dose: 1 tab - Labs Labs: 10/10/17 06:26 10/17/17 11:05 PT 13.4 SECONDS (9.7-12.2) H 10/07/17 07:57 INR 1.2 10/07/17 07:57 APTT 36 SECONDS (21-34) H 10/07/17 07:57
[2017-10-19] MEDS: Multivitamin Vitamin B Complex (Nephro-Vite) Tab PO SCH (11:05)
--- NOTE | 2017-10-19 13:36 | CP.PCM.PN ---
Subjective - Date & Time of Evaluation Date of Evaluation: 10/19/17 Time of Evaluation: 13:33 - Subjective Subjective: Still c/o MAYES Due for dialysis today- will not permit UF > 750ml Explained need for fluid removal Appetite better No other complaint Objective - Vital Signs/Intake and Output Vital Signs (last 24 hours): Temp Pulse Resp BP Pulse Ox 97.9 F 67 20 90/57 L 96 10/19/17 07:00 10/19/17 11:38 10/19/17 07:00 10/19/17 07:00 10/19/17 07:00 Intake and Output: 10/19/17 10/19/17 06:59 18:59 Intake Total 200 Output Total 100 Balance 100 - Medications Medications: Current Medications Amiodarone HCl (Cordarone) 400 mg PO BID [facility] Last Admin: 10/19/17 11:04 Dose: 400 mg Calcium Acetate (Phoslo) 667 mg PO TIDCC [facility] Last Admin: 10/19/17 11:04 Dose: 667 mg Epoetin Pepe (Procrit) 10,000 unit IV MWF [facility] Last Admin: 10/17/17 12:21 Dose: 10,000 unit Famotidine (Pepcid) 20 mg PO DAILY [facility] Last Admin: 10/19/17 11:05 Dose: 20 mg Midodrine (Proamatine) 5 mg PO TID [facility] Last Admin: 10/19/17 11:04 Dose: 5 mg Tamsulosin HCl (Flomax) 0.4 mg PO DAILY [facility] Last Admin: 10/19/17 11:05 Dose: 0.4 mg Vitamin B Complex/Vit C/Folic Acid (Nephro-Aleksandra) 1 tab PO DAILY [facility] Last Admin: 10/19/17 11:05 Dose: 1 tab - Labs Labs: 10/10/17 06:26 10/17/17 11:05 PT 13.4 SECONDS (9.7-12.2) H 10/07/17 07:57 INR 1.2 10/07/17 07:57 APTT 36 SECONDS (21-34) H 10/07/17 07:57 - Constitutional Appears: No Acute Distress, Chronically Ill - Head Exam Head Exam: ATRAUMATIC, NORMAL INSPECTION - Eye Exam Eye Exam: EOMI, Normal appearance - Neck Exam Neck Exam: Normal Inspection. absent: Tenderness - Cardiovascular Exam Cardiovascular Exam: REGULAR RHYTHM, +S1 - GI/Abdominal Exam GI & Abdominal Exam: Soft. absent: Tenderness - Extremities Exam Extremities Exam: Normal Inspection. absent: Tenderness - Neurological Exam Neurological Exam: Alert, CN II-XII Intact - Skin Skin Exam: Dry, Warm Assessment and Plan (1) CKD (chronic kidney disease) stage 5, GFR less than 15 ml/min Status: Acute (2) Acute urinary retention Status: Acute (3) Obstructed Beck catheter Status: Acute (4) Cardiomyopathy Status: Acute (5) Hepatitis C antibody positive in blood Status: Acute (6) VRE (vancomycin resistant enterococcus) culture positive Status: Acute (7) ESRD (end stage renal disease) on dialysis Status: Acute (8) Hepatitis C antibody test positive Status: Acute - Assessment and Plan (Free Text) Plan: UF as much as possible- pt resistant to this Midodrine increased Dialysis MWF Monitor BP CXR to evaluate CHF post HD Stop phoslo due to constipation
--- NOTE | 2017-10-19 13:48 | CP.PCM.PN ---
Subjective - Date & Time of Evaluation Date of Evaluation: 10/19/17 Time of Evaluation: 13:48 - Subjective Subjective: CHIEF COMPLAINTS TODAY : SOB GOING TO BATHROOM TRANSFER TO [facility] POSTPONED DUE TO INS. ISSUES PT IS CUTTING DOWN THE DURATION OF DIALYSIS ROS. HEENT : N. Resp : No cough, wheezing ,pleuritic CP ,or hemoptysis Cardio : No anginal CP, GI : No abd.pain, n/v ,diarrhea or GI bleeding . DECORATOR CONSULTANT : No headache, vertigo, focal deficit. Musculoskel : No joint swelling , Derm : No rash Psych : Normal affect. Ext : No swelling ,calf pain PE. Pt. is alert awake in no distress. V.S As noted in the chart Head ,ear nose,throat and eyes : Normal. Neck : Supple with normal carotids. Lungs: Clear air entry. RONCHI Heart : S1 & S2 normal with S4. No murmur. Abd : Soft non tender with normal bowel sounds. Neuro : Moves all ext. with no localized deficit. Ext : + edema with intact pulses.Non tender calves Derm : No rashes or decubitus ulcer. LABS/RADIOLOGY: URINE VRE ASSESSMENT/PLAN : CONT DIALYSIS BP TOLERATED Objective - Vital Signs/Intake and Output Vital Signs (last 24 hours): Temp Pulse Resp BP Pulse Ox 97.9 F 67 20 90/57 L 96 10/19/17 07:00 10/19/17 11:38 10/19/17 07:00 10/19/17 07:00 10/19/17 07:00 Intake and Output: 10/19/17 10/19/17 11:59 23:59 Output Total 100 Balance -100 - Medications Medications: Current Medications Amiodarone HCl (Cordarone) 400 mg PO BID [facility] Last Admin: 10/19/17 11:04 Dose: 400 mg Epoetin Pepe (Procrit) 10,000 unit IV MWF [facility] Last Admin: 10/17/17 12:21 Dose: 10,000 unit Famotidine (Pepcid) 20 mg PO DAILY [facility] Last Admin: 10/19/17 11:05 Dose: 20 mg Midodrine (Proamatine) 5 mg PO TID [facility] Last Admin: 10/19/17 11:04 Dose: 5 mg Tamsulosin HCl (Flomax) 0.4 mg PO DAILY [facility] Last Admin: 10/19/17 11:05 Dose: 0.4 mg Vitamin B Complex/Vit C/Folic Acid (Nephro-Aleksandra) 1 tab PO DAILY [facility] Last Admin: 10/19/17 11:05 Dose: 1 tab - Labs Labs: 10/10/17 06:26 10/17/17 11:05 PT 13.4 SECONDS (9.7-12.2) H 10/07/17 07:57 INR 1.2 10/07/17 07:57 APTT 36 SECONDS (21-34) H 10/07/17 07:57
--- NOTE | 2017-10-19 16:48 | CP.PCM.CON ---
<Karina Rivera - Last Filed: 10/19/17 18:11> History of Present Illness - History of Present Illness History of Present Illness: ICU Consult Note for Dr. Krueger 77 year old male with PMHx of BPH, urinary retention, renal failure on dialysis , CHF, arrhythmia admitted 09/24 for urinary retention. Diagnosed with UTI, cultures positive for VRE and Pseudomonas. Treated with IV Gentamicin, last dose 10/16/17. SUPPLY SERVICE WORKER called 10/19 secondary to symptomatic bradycardia. 2 doses of atropine given without increase in HR. Transferred to ICU. Transvenous pacer placed by Dr. Krueger via Left IJ.Patient had a low heart rate of 35bpm. Patient was seen and examined at bedside with difficulty moving from sitting back into bed. Patient did not have life vest on, but it was placed on by nursing and this resident at bedside. Patient stated he did not feel well. STAT ekg was done , 0.5 mg atropine pushed with flush, 5 minute wait, 0.5mg atropine with flush pushed. No improvement, patient was brought to ICU after notifying Dr. Krueger and Dr. Aparicio. Rapid Response was called. Patient had a transcutaneous pacemaker placed via left IJ. Patient's heartrate is at 79bpm. 10/04 Right IJ permacath by Dr. Ordoñez 10/[address] Ordoñez 10/10 Cardiac Cath: Dilated nonischemic cardiomyopathy with an ejection fraction of 20% PMHx of BPH, urinary retention, renal failure on dialysis, CHF, arrhythmia PSH: Right IJ permacath by Dr. Ordoñez (10/04/17), Left AVF by Dr. Ordoñez () Past Patient History - Past Medical History & Family History Past Medical History?: No - Past Social History Smoking Status: Never Smoked - CARDIAC Hx Cardiac Disorders: Yes Other/Comment: CARDIOMYOPATHY - PULMONARY Hx Respiratory Disorders: No - NEUROLOGICAL Hx Neurological Disorder: No - HEENT Hx HEENT Problems: No - RENAL Hx Chronic Kidney Disease: Yes - ENDOCRINE/METABOLIC Hx Endocrine Disorders: No - HEMATOLOGICAL/ONCOLOGICAL Hx Anemia: Yes - INTEGUMENTARY Hx Dermatological Problems: No - MUSCULOSKELETAL/RHEUMATOLOGICAL Hx Musculoskeletal Disorders: Yes Hx Falls: Yes - GASTROINTESTINAL Hx Gastrointestinal Disorders: Yes Hx Gastroesophageal Reflux: Yes Other/Comment:  - GENITOURINARY/GYNECOLOGICAL Hx Genitourinary Disorders: Yes Hx Prostate Problems: Yes Hx Urinary Tract Infection: Yes Other/Comment: hx utis-pt has indwelling sanon from half-way - PSYCHIATRIC Hx Substance Use: No - SURGICAL HISTORY Hx Surgeries: No - ANESTHESIA Hx Anesthesia: No Hx Anesthesia Reactions: No Hx Malignant Hyperthermia: No Meds Home Medications: Home Medication List Medication Instructions Recorded Confirmed Type Acetaminophen [Tylenol 325mg tab] 650 mg PO Q4 PRN tab 10/12/17 Rx Amiodarone [Cordarone] 400 mg PO BID tab 10/12/17 Rx Calcitriol [Rocaltrol] 0.5 mcg PO DAILY sgl 10/12/17 Rx Calcium Acetate [Phoslo] 667 mg PO TIDCC tab 10/12/17 Rx Famotidine [Pepcid] 20 mg PO DAILY tab 10/12/17 Rx Gentamicin 100 mg IVPB MWF #2 vial 10/12/17 Rx Midodrine [Proamatine] 2.5 mg PO TID tab 10/12/17 Rx Tamsulosin [Flomax] 0.4 mg PO DAILY cap 10/12/17 Rx Vitamin B Complex/Vit C/Folic 1 tab PO DAILY tab 10/12/17 Rx [Nephro-Aleksandra] Allergies/Adverse Reactions: Allergies Allergy/AdvReac Type Severity Reaction Status Date / Time No Known Allergies Allergy Verified 09/24/17 12:54 - Medications Medications: Current Medications Amiodarone HCl (Cordarone) 400 mg PO BID [facility] Last Admin: 10/19/17 11:04 Dose: 400 mg Epoetin Pepe (Procrit) 10,000 unit IV MWF [facility] Last Admin: 10/17/17 12:21 Dose: 10,000 unit Famotidine (Pepcid) 20 mg PO DAILY [facility] Last Admin: 10/19/17 11:05 Dose: 20 mg Midodrine (Proamatine) 5 mg PO TID [facility] Last Admin: 10/19/17 14:09 Dose: 5 mg Tamsulosin HCl (Flomax) 0.4 mg PO DAILY [facility] Last Admin: 10/19/17 11:05 Dose: 0.4 mg Vitamin B Complex/Vit C/Folic Acid (Nephro-Aleksandra) 1 tab PO DAILY [facility] Last Admin: 10/19/17 11:05 Dose: 1 tab Results - Vital Signs Recent Vital Signs: Last Vital Signs Temp 97.9 F 10/19/17 07:00 Pulse 25 L 10/19/17 15:45 Resp 20 10/19/17 07:00 BP 90/57 L 10/19/17 07:00 Pulse Ox 96 10/19/17 07:00 - Labs Result Diagrams: 10/10/17 06:26 10/17/17 11:05 Labs: Laboratory Results - last 24 hr 10/19/17 15:04 POC Glucose (mg/dL) 135 H Assessment & Plan - Assessment and Plan (Free Text) Assessment: 77M with PMHx of BPH, urinary retention, renal failure on dialysis, CHF, arrhythmia admitted 09/24 for urinary retention. Patient had symptomatic bradycardia, life vest was placed on patient, and patient was brought to ICU after 0.5mg IV Atropine, 5minute wait, 0.5mg IV Atropine was pushed. Patient has a transcutaneous pacer placed 10/19 Cardio symptomatic bradycardia EF 20% 10/19 Transcutaneous pacer, CXR confirmation Life vest consult: Dr. Wright for AICD Pulm: BIPAP Monitor vitals BPH Flomax 0.4mg POQD Renal Renal Failure Renal Diet Midodrine 5mg PO TID [facility] 10,000 u IV MWF Dialysis MWF Vitamin B complex 1 tab PO QD 10/02 Urine Cx Pseudomonas Aeruginosa GI CMP ID: E. Coli VRE urine Prophylaxis: Pepcid 20mg PO QD SCDs - Date & Time Date: 10/19/17 Time: 18:10 <Manjit Krueger - Last Filed: 10/19/17 18:26> Meds - Medications Medications: Current Medications Amiodarone HCl (Cordarone) 400 mg PO BID [facility] Last Admin: 10/19/17 18:08 Dose: Not Given Epoetin Pepe (Procrit) 10,000 unit IV MWF [facility] Last Admin: 10/17/17 12:21 Dose: 10,000 unit Famotidine (Pepcid) 20 mg PO DAILY [facility] Last Admin: 10/19/17 11:05 Dose: 20 mg Midodrine (Proamatine) 5 mg PO TID [facility] Last Admin: 10/19/17 14:09 Dose: 5 mg Tamsulosin HCl (Flomax) 0.4 mg PO DAILY [facility] Last Admin: 10/19/17 11:05 Dose: 0.4 mg Vitamin B Complex/Vit C/Folic Acid (Nephro-Aleksandra) 1 tab PO DAILY [facility] Last Admin: 10/19/17 11:05 Dose: 1 tab Results - Vital Signs Recent Vital Signs: Last Vital Signs Temp 97.9 F 10/19/17 07:00 Pulse 25 L 10/19/17 15:45 Resp 20 10/19/17 07:00 BP 90/57 L 10/19/17 07:00 Pulse Ox 96 10/19/17 07:00 - Labs Result Diagrams: 10/10/17 06:26 10/17/17 11:05 Labs: Laboratory Results - last 24 hr 10/19/17 15:04 POC Glucose (mg/dL) 135 H Attending/Attestation - Attestation I have personally seen and examined this patient.: Yes I have fully participated in the care of the patient.: Yes I have reviewed all pertinent clinical information: Yes Notes (Text): 10/19/17 18:25 patient seen and examined Patient transferred to intensive care unit for severe bradycardia under aseptic conditions transvenous pacemaker inserted Check potassium level hemodialysis Cardiology follow-up
--- NOTE | 2017-10-19 16:52 | PCM.PROC ---
Additional Comments - Additional Comments Additional Comments: chlorhexadine prep at Left IJ from chin to clavicles of left side. Patient draped appropriately with full body drape. Left internal jugular visualized by ultrasound. Transcutaneous pacer inserted via seldinger technique. Confirmed placement by CXR. HR set to 70s bpm. EBL 5cc no complications
[2017-10-19] MEDS ORDERED: Amiodarone 150mg/3 ml vial IV ONE (17:26)
[2017-10-19 18:40] LABS: ALB/GLOB RATIO 0.7 (1.0-2.1); ALBUMIN 3.2 g/dL (3.5-5.0); CALCIUM 7.3 mg/dl (8.6-10.4)
--- NOTE | 2017-10-19 18:45 | RAD ---
HISTORY: transcutaneous pacer confirmation COMPARISON: Comparison is made to the previous study. FINDINGS: LUNGS: No significant interval change in the lungs noted since the previous exam. Moderate pulmonary vascular congestion is again noted. Partial atelectasis of the lower lobes are again suspected due to pleural effusion. PLEURA: Moderate bilateral pleural effusion is again noted. CARDIOVASCULAR: Cardiomegaly is again noted. There is interval insertion of transcutaneous pacer through the left jugular vein extending to the heart. Again seen is right-sided hemodialysis catheter in place. OSSEOUS STRUCTURES: No significant abnormalities. VISUALIZED UPPER ABDOMEN: Normal. OTHER FINDINGS: None. IMPRESSION: Appropriate position of the support devices. No significant interval change noted since the previous exam in the lungs.
--- NOTE | 2017-10-19 19:23 | PCM.RRT ---
BEAVER TRAPPER Nurses Assessment - Situation Date: 10/19/17 Time BEAVER TRAPPER was called: 15:07 BEAVER TRAPPER Responder Arrival Time:: 15:07 BEAVER TRAPPER Location:: Med/Surg Room Number: 667A BEAVER TRAPPER Reason for Call: Bradycardia BEAVER TRAPPER Called By: RN - IV IV Inserted during BEAVER TRAPPER?: Yes New IV Insertion Tolerance: Excellent - Respiratory BEAVER TRAPPER Delivery Method: Non Rebreather @% Oxygen Flow Rate: 25 Received Nebulizer Treatments: No Was the Patient Ventilated with Bag/Mask 100% O2?: Yes Secretions Suctioned?: No Was the Patient Intubated?: No Was the Patient Placed on a Ventilator?: No - Ventilator Settings SAO2 %: 100 FIO2 (% Oxygen): 100 - Medication Medications Administered During BEAVER TRAPPER: 1515 Amiodarone 0.5mg. 1524 Amiodarone 0.5mg - Diagnostic Test Ordered EKG: Yes Chest X-Ray: No CT Scan: No CPR started during BEAVER TRAPPER?: No - Vital Signs Vital Signs: Rapid Response Vital Sign Blood Pressure 90/50 Pulse Rate 37 Respiratory Rate 16 Temperature 98 F Oxygen Saturation 95 - Vital Signs at end of BEAVER TRAPPER Vital Signs at end of BEAVER TRAPPER: Rapid Response End Vital Sign Blood Pressure 80/40 Pulse Rate 30 Respiratory Rate 16 Temperature 98 F O2 Sat by Pulse Oximetry 100 - Recommendations Notifications: Attending Physician I.Reason for BEAVER TRAPPER - A) Acute Change in Patient: (Select all that apply): Acute change in heart rate less than 50 or greater than 120 - Neurological Status (Select all that apply): Alert, Responsive, Oriented, Verbal, Follows Commands - Respiratory Oxygen Delivery Method: Non Rebreather @% Oxygen Flow Rate: 25 - Constitutional Appears: Well, No Acute Distress - Head Head Exam: ATRAUMATIC, NORMAL INSPECTION - Eyes Eye Exam: EOMI, Normal appearance - Respiratory Exam Respiratory Exam: Clear to Ausculation Bilateral, NORMAL BREATHING PATTERN. absent: Rales, Rhonchi, Wheezes - Cardiovascular Exam Cardiovascular Exam: Bradycardia, +S1, +S2 - GI/Abdominal Exam GI & Abdominal Exam: Soft, Normal Bowel Sounds. absent: Guarding, Rigid, Tenderness - Neurological Exam Neurological Exam: Alert, Awake, Oriented x3 - Extremities Exam Extremities Exam: Full ROM, Normal Inspection Plan - Assessment of Findings&Treatment Plan Patient is a 77 year old male with past medical history BPH, urinary retention, renal failure on dialysis, CHF, arrhythmia admitted 09/24 for urinary retention. Diagnosed with UTI, cultures positive for VRE and Pseudomonas. Rapid Response was called at 3:07pm for symptomatic bradycardia. Patient was found to have a heart rate in the 30s. At that time, patient did no have life vest on, however vest was placed by nursing. STAT EKG was done and showed marked sinus bradycardia with sinus arrhythmia. Patient was given Atropine 0.5mg at 3:18pm. He was given another dose of Atropine 0.5mg at 3:24pm. There was no improvement in HR. Case was discussed with Dr Aparicio who recommended ICU for closer monitoring , dopamine drip and possible temporary pacemaker placement. Dr Krueger, returned materials inspector , came up and evaluated the patient. Patient was transferred to the ICU for further management.
[2017-10-19] MEDS: Epoetin Alfa 10,000 unit/ml Dialysis IV SCH (20:12)
--- NOTE | 2017-10-19 20:18 | CP.PCM.PN ---
Subjective - Date & Time of Evaluation Date of Evaluation: 10/19/17 Time of Evaluation: 20:11 - Subjective Subjective: Patient c/o left sided paresthesia. Objective - Vital Signs/Intake and Output Vital Signs (last 24 hours): Temp Pulse Resp BP Pulse Ox 97.9 F 72 20 90/57 L 96 10/19/17 07:00 10/19/17 19:43 10/19/17 07:00 10/19/17 07:00 10/19/17 07:00 - Medications Medications: Current Medications Amiodarone HCl (Cordarone) 400 mg PO BID [facility] Last Admin: 10/19/17 18:08 Dose: Not Given Aspirin (Aspirin Chewable) 81 mg PO DAILY [facility] Epoetin Pepe (Procrit) 10,000 unit IV MWF [facility] Last Admin: 10/17/17 12:21 Dose: 10,000 unit Famotidine (Pepcid) 20 mg PO DAILY [facility] Last Admin: 10/19/17 11:05 Dose: 20 mg Midodrine (Proamatine) 5 mg PO TID [facility] Last Admin: 10/19/17 19:11 Dose: 5 mg Rosuvastatin Calcium (Crestor) 10 mg PO HS [facility] Tamsulosin HCl (Flomax) 0.4 mg PO DAILY [facility] Last Admin: 10/19/17 11:05 Dose: 0.4 mg Vitamin B Complex/Vit C/Folic Acid (Nephro-Aleksandra) 1 tab PO DAILY [facility] Last Admin: 10/19/17 11:05 Dose: 1 tab - Labs Labs: 10/10/17 06:26 10/19/17 18:07 PT 13.4 SECONDS (9.7-12.2) H 10/07/17 07:57 INR 1.2 10/07/17 07:57 APTT 36 SECONDS (21-34) H 10/07/17 07:57 - Constitutional Appears: Well - Head Exam Head Exam: ATRAUMATIC, NORMAL INSPECTION - Eye Exam Eye Exam: Normal appearance - Respiratory Exam Respiratory Exam: NORMAL BREATHING PATTERN - Neurological Exam Neurological Exam: Alert, Awake, Oriented x3 Neuro motor strength exam: Left Upper Extremity: 5, Right Upper Extremity: 5, Left Lower Extremity: 5 (subjective paresthesia), Right Lower Extremity: 5 Assessment and Plan - Assessment and Plan (Free Text) Plan: Left sided numbess: patient with h/o PVD, ESRD on HD, will benefit from asa + statin, check CT head -neurology consult for further input
--- NOTE | 2017-10-19 21:02 | CT ---
EXAM: CT Head Without Intravenous Contrast EXAM DATE/TIME: 10/19/2017 8:06 PM CLINICAL HISTORY: 77 years old, male; Signs and symptoms; Numbness / parasthesia; Left; Additional info: Left sided parethesia TECHNIQUE: Axial computed tomography images of the head/brain without intravenous contrast. All CT scans at this facility use one or more dose reduction techniques, viz.: automated exposure control; ma/kV adjustment per patient size (including targeted exams where dose is matched to indication; i.e. head); or iterative reconstruction technique. Coronal and sagittal reformatted images were created and reviewed. COMPARISON: No relevant prior studies available. FINDINGS: LIMITATIONS: Mild to moderate streak/motion artifact. BRAIN: Areas of low density in the periventricular white matter bilaterally, most likely representing mild chronic small vessel ischemic changes. Diffuse, marked, age-related cortical atrophy and ventriculomegaly. No significant acute abnormality identified. No acute hemorrhage seen within the brain. No acute extra-axial fluid collections visualized. No evidence of significant mass effect within the brain. No CT findings to suggest an acute, large territorial infarct, however, small or early acute infarcts may not be visible on CT. VENTRICLES: See above. BONES/JOINTS: No acute fractures or other acute bony abnormality noted. SOFT TISSUES: No acute abnormality of the visualized soft tissues is seen. VASCULATURE: Atherosclerotic calcification. SINUSES: Mild mucosal thickening in the bilateral ethmoid and left frontal sinuses. MASTOID AIR CELLS: Mastoid air cells appear clear. IMPRESSION: - No acute findings seen within the brain, allowing for motion artifact. - See above for remaining findings.
--- NOTE | 2017-10-19 21:10 | CP.PCM.PN ---
Subjective - Date & Time of Evaluation Date of Evaluation: 10/19/17 Time of Evaluation: 21:10 - Subjective Subjective: CHIEF COMPLAINTS TODAY : patient seen in ICU at 4:30 PM events noted. Status post rapid response Severe bradycardia and hypotension. s/p temporary pacemaker left IJ catheter vs blood pressure 85/55 heart rate set up at 70 ROS. HEENT : N. Resp : No cough, wheezing ,pleuritic CP ,or hemoptysis Cardio : No anginal CP, GI : No abd.pain, n/v ,diarrhea or GI bleeding . FUR CUTTER : No headache, vertigo, focal deficit. Musculoskel : No joint swelling , Derm : No rash Psych : Normal affect. Ext : No swelling ,calf pain PE. Pt. is alert awake in no distress. V.S As noted in the chart Head ,ear nose,throat and eyes : Normal. Neck : Supple with normal carotids. TRANSVENOUS PACER LEFT IJ. Lungs: Clear air entry. ANTERIORLY Heart : S1 & S2 normal with S4. No murmur. Abd : Soft non tender with normal bowel sounds. Neuro : Moves all ext. with no localized deficit. Ext : + edema with intact pulses.Non tender calves Derm : No rashes or decubitus ulcer. LABS/RADIOLOGY: .reviewed REPEAT URINE CULTURE --MULTIPLE SPECIES ? CONTAMINANT. ASSESSMENT; * S/P BRADYCARDIA WITH HYPOTENSION. S/P TRANSVENOUS PACER LEFT IJ * S/P urosepsis-pseudomonas aeruginosa /VRE. * acute urinary retention s/p CHRONIC FOLY * BPH. 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 * acute renal failure s/p RT.IJ HD cathether 10/02/17. On HD.S/P AVF * Hepatitis C+ve (HIV RNA QT. LEVELS UNDETECTABLE ) /PLAN : CASE DISCUSSED WITH THE STAFF/and arc cutter DR DENISE AT LENGTH. HEMODIALYSIS PER RENAL. WILL FOLLOW CLOSELY. pLEASE NOTIFY IF ANY TEMPERATURE ABOVE 100.4. CONTACT PRECAUTIONS HAS HISTORY OF VRE. PER CARDIOLOGY DR LANDAVERDE Objective - Vital Signs/Intake and Output Vital Signs (last 24 hours): Temp Pulse Resp BP Pulse Ox 97.5 F L 72 30 H 104/67 99 10/19/17 20:00 10/19/17 20:55 10/19/17 20:55 10/19/17 20:55 10/19/17 20:55 Intake and Output: 10/19/17 10/20/17 18:59 06:59 Intake Total 25 Output Total 100 0 Balance -75 0 - Medications Medications: Current Medications Amiodarone HCl (Cordarone) 400 mg PO BID [facility] Last Admin: 10/19/17 18:08 Dose: Not Given Aspirin (Aspirin Chewable) 81 mg PO DAILY [facility] Epoetin Pepe (Procrit) 10,000 unit IV MWF [facility] Last Admin: 10/19/17 20:12 Dose: Not Given Famotidine (Pepcid) 20 mg PO DAILY [facility] Last Admin: 10/19/17 11:05 Dose: 20 mg Midodrine (Proamatine) 5 mg PO TID [facility] Last Admin: 10/19/17 19:11 Dose: 5 mg Rosuvastatin Calcium (Crestor) 10 mg PO [facility] Tamsulosin HCl (Flomax) 0.4 mg PO DAILY [facility] Last Admin: 10/19/17 11:05 Dose: 0.4 mg Vitamin B Complex/Vit C/Folic Acid (Nephro-Aleksandra) 1 tab PO DAILY [facility] Last Admin: 10/19/17 11:05 Dose: 1 tab - Labs Labs: 10/10/17 06:26 10/19/17 18:07 PT 13.4 SECONDS (9.7-12.2) H 10/07/17 07:57 INR 1.2 10/07/17 07:57 APTT 36 SECONDS (21-34) H 10/07/17 07:57 Assessment and Plan (1) UTI (urinary tract infection) Status: Acute (2) Acute urinary retention Status: Acute (3) Obstructed Beck catheter Status: Acute (4) Renal failure, acute on chronic Status: Acute (5) Cachexia Status: Acute (6) Cardiomyopathy Status: Acute (7) Benign prostatic hyperplasia Status: Acute (8) Hepatitis C antibody test positive Status: Acute
[2017-10-20 06:29] LABS: BASO % 0.4 % (0.0-2.0); EOS % 0.6 % (0.0-4.0); HEMOGLOBIN 9.7 g/dL (12.0-18.0); LYMPH # 0.6 K/uL (1.0-4.3); LYMPH % 10.2 % (20.0-40.0); MEAN CELL VOLUME 97.7 fL (80.0-94.0); MEAN CORPUSCULAR HEMOGLOBIN 31.6 pg (27.0-31.0); MEAN CORPUSCULAR HGB CONC 32.3 g/dL (33.0-37.0); MEAN PLATELET VOLUME 9.3 fL (7.2-11.7); MONO # 0.6 K/uL (0.0-0.8); NEUT # 4.3 K/uL (1.8-7.0); NEUT % 78.8 % (50.0-75.0); NRBC % 0.1 % (0.0-2.0); RBC 3.07 Mil/uL (4.40-5.90); RED CELL DISTRIBUTION WIDTH 20.3 % (11.5-14.5); WHITE BLOOD COUNT 5.5 K/uL (4.8-10.8)
[2017-10-20 07:19] LABS: ALB/GLOB RATIO 0.8 (1.0-2.1); ALBUMIN 3.4 g/dL (3.5-5.0); CALCIUM 7.3 mg/dl (8.6-10.4); MAGNESIUM 1.8 mg/dL (1.6-2.3)
[2017-10-20] MEDS: Multivitamin Vitamin B Complex (Nephro-Vite) Tab PO SCH (10:00)
--- NOTE | 2017-10-20 11:05 | CP.CCUPN ---
CCU Subjective - Physician Review Events Since Last Encounter (Free Text): 10/20/17 11:03 patient seen and examined in the intensive care unit. Status post transvenous pacemaker insertion patient refusing dialysis Neurology evaluation for numbness patient is awake and responsive no shortness of breath, no chest pain Afebrile CCU Objective - Vital Signs / Intake & Output Vital Signs (Last 4 hours): Vital Signs Pulse Resp BP Pulse Ox 10/20/17 10:11 72 15 86/57 L 97 10/20/17 10:10 72 12 96 10/20/17 10:00 72 20 88 L 10/20/17 09:55 72 23 90/52 L 94 L 10/20/17 09:50 72 23 98 10/20/17 09:40 72 24 86/52 L 10/20/17 09:35 72 23 92/51 L 10/20/17 09:30 72 22 10/20/17 09:25 72 23 87/52 L 10/20/17 09:20 72 11 L 10/20/17 09:10 72 24 95/51 L 10/20/17 09:00 72 25 H 10/20/17 08:55 72 28 H 96/61 L 10/20/17 08:50 72 29 H 10/20/17 08:40 72 17 102/57 L 10/20/17 08:30 72 13 10/20/17 08:20 77 16 10/20/17 08:10 72 20 93/61 L 10/20/17 08:00 72 20 10/20/17 07:56 72 25 H 97/57 L 10/20/17 07:50 72 26 H 10/20/17 07:40 72 21 100/56 L 10/20/17 07:30 72 27 H 10/20/17 07:26 73 19 101/71 10/20/17 07:20 89 22 99 10/20/17 07:10 72 20 90/53 L 96 Intake and Output (Last 8hrs): Intake & Output 10/19/17 10/20/17 10/20/17 22:59 06:59 14:59 Intake Total 225 240 Output Total 100 100 Balance 125 140 Weight 121 lb 120 lb 8 oz Intake: Intake, IV Amount 0 Right Hand 0 Oral 225 240 Output: Urine 100 [address] 2-way Urethral 0 Urethral (Beck) 100 100 Stool 0 0 Other: # Bowel Movements 0 - Physical Exam Head: Positive for: Atraumatic, Normocephalic Conjunctiva: Positive for: Normal Mouth: Positive for: Moist Mucous Membranes Neck: Positive for: Normal Range of Motion Respiratory/Chest: Positive for: Clear to Auscultation Cardiovascular: Positive for: Regular Rate and Rhythm Abdomen: Positive for: Normal Bowel Sounds Upper Extremity: Positive for: Normal Inspection Lower Extremity: Positive for: Normal Inspection - Medications Active Medications: Active Medications Generic Name Dose Route Start Last Admin Trade Name Freq PRN Reason Stop Dose Admin Amiodarone HCl 400 mg 09/28/17 18:00 10/19/17 18:08 Cordarone PO Not Given BID [facility] Aspirin 81 mg 10/21/17 10:00 Aspirin Chewable PO DAILY [facility] Famotidine 20 mg 09/26/17 10:00 10/19/17 11:05 Pepcid PO 20 mg DAILY [facility] Administration Midodrine 5 mg 10/18/17 10:32 10/19/17 19:11 Proamatine PO 5 mg TID [facility] Administration Rosuvastatin Calcium 10 mg 10/19/17 22:00 10/19/17 21:36 Crestor PO 10 mg HS [facility] Administration Tamsulosin HCl 0.4 mg 10/12/17 10:00 10/19/17 11:05 Flomax PO 0.4 mg DAILY [facility] Administration Vitamin B Complex/Vit C/Folic Acid 1 tab 10/12/17 10:00 10/19/17 11:05 Nephro-Aleksandra PO 1 tab DAILY [facility] Administration - Patient Studies Lab Studies: Lab Studies 10/20/17 10/20/17 10/19/17 Range/Units 06:24 06:19 18:07 WBC 5.5 (4.8-10.8) K/uL RBC 3.07 L (4.40-5.90) Mil/uL Hgb 9.7 L (12.0-18.0) g/dL Hct 30.0 L (35.0-51.0) % MCV 97.7 H (80.0-94.0) fL MCH 31.6 H (27.0-31.0) pg MCHC 32.3 L (33.0-37.0) g/dL RDW 20.3 H (11.5-14.5) % Plt Count 147 (130-400) K/uL MPV 9.3 (7.2-11.7) fL Neut % (Auto) 78.8 H (50.0-75.0) % Lymph % (Auto) 10.2 L (20.0-40.0) % Howell % (Auto) 10.0 (0.0-10.0) % Eos % (Auto) 0.6 (0.0-4.0) % Baso % (Auto) 0.4 (0.0-2.0) % Neut # 4.3 (1.8-7.0) K/uL Lymph # 0.6 L (1.0-4.3) K/uL Howell # 0.6 (0.0-0.8) K/uL Eos # 0.0 (0.0-0.7) K/uL Baso # 0.0 (0.0-0.2) K/uL Sodium 131 L 131 L (132-148) mmol/L Potassium 6.2 H* 5.9 H (3.6-5.2) mmol/L Chloride 96 L 95 L (98-107) mmol/L Carbon Dioxide 21 L 24 (22-30) mmol/L Anion Gap 20 18 (10-20) BUN 88 H 78 H (9-20) mg/dL Creatinine 9.1 H* 8.9 H* (0.8-1.5) mg/dL Est GFR ( Amer) 7 7 Est GFR (Non-Af Amer) 6 6 POC Glucose (mg/dL) (65-110) mg/dL Random Glucose 92 113 H (75-110) mg/dL Calcium 7.3 L 7.3 L (8.6-10.4) mg/dl Phosphorus 8.4 H 7.8 H (2.5-4.5) mg/dL Magnesium 1.8 (1.6-2.3) mg/dL Total Bilirubin 0.5 0.6 (0.2-1.3) mg/dL AST 40 45 (17-59) U/L ALT 50 47 (21-72) U/L Alkaline Phosphatase 168 H 166 H D (38-126) U/L Total Protein 7.7 7.6 (6.3-8.3) g/dL Albumin 3.4 L 3.2 L (3.5-5.0) g/dL Globulin 4.3 H 4.4 H (2.2-3.9) gm/dL Albumin/Globulin Ratio 0.8 L 0.7 L (1.0-2.1) TSH 3rd Generation 1.42 (0.46-4.68) mIU/L 10/19/17 Range/Units 15:04 WBC (4.8-10.8) K/uL RBC (4.40-5.90) Mil/uL Hgb (12.0-18.0) g/dL Hct (35.0-51.0) % MCV (80.0-94.0) fL MCH (27.0-31.0) pg MCHC (33.0-37.0) g/dL RDW (11.5-14.5) % Plt Count (130-400) K/uL MPV (7.2-11.7) fL Neut % (Auto) (50.0-75.0) % Lymph % (Auto) (20.0-40.0) % Howell % (Auto) (0.0-10.0) % Eos % (Auto) (0.0-4.0) % Baso % (Auto) (0.0-2.0) % Neut # (1.8-7.0) K/uL Lymph # (1.0-4.3) K/uL Howell # (0.0-0.8) K/uL Eos # (0.0-0.7) K/uL Baso # (0.0-0.2) K/uL Sodium (132-148) mmol/L Potassium (3.6-5.2) mmol/L Chloride (98-107) mmol/L Carbon Dioxide (22-30) mmol/L Anion Gap (10-20) BUN (9-20) mg/dL Creatinine (0.8-1.5) mg/dL Est GFR ( Amer) Est GFR (Non-Af Amer) POC Glucose (mg/dL) 135 H (65-110) mg/dL Random Glucose (75-110) mg/dL Calcium (8.6-10.4) mg/dl Phosphorus (2.5-4.5) mg/dL Magnesium (1.6-2.3) mg/dL Total Bilirubin (0.2-1.3) mg/dL AST (17-59) U/L ALT (21-72) U/L Alkaline Phosphatase (38-126) U/L Total Protein (6.3-8.3) g/dL Albumin (3.5-5.0) g/dL Globulin (2.2-3.9) gm/dL Albumin/Globulin Ratio (1.0-2.1) TSH 3rd Generation (0.46-4.68) mIU/L Laboratory Results - last 24 hr 10/19/17 10/19/17 10/20/17 15:04 18:07 06:19 WBC RBC Hgb Hct MCV MCH MCHC RDW Plt Count MPV Neut % (Auto) Lymph % (Auto) Howell % (Auto) Eos % (Auto) Baso % (Auto) Neut # Lymph # Howell # Eos # Baso # Sodium 131 L 131 L Potassium 5.9 H 6.2 H* Chloride 95 L 96 L Carbon Dioxide 24 21 L Anion Gap 18 20 BUN 78 H 88 H Creatinine 8.9 H* 9.1 H* Est GFR ( Amer) 7 7 Est GFR (Non-Af Amer) 6 6 POC Glucose (mg/dL) 135 H Random Glucose 113 H 92 Calcium 7.3 L 7.3 L Phosphorus 7.8 H 8.4 H Magnesium 1.8 Total Bilirubin 0.6 0.5 AST 45 40 ALT 47 50 Alkaline Phosphatase 166 H D 168 H Total Protein 7.6 7.7 Albumin 3.2 L 3.4 L Globulin 4.4 H 4.3 H Albumin/Globulin Ratio 0.7 L 0.8 L TSH 3rd Generation 1.42 10/20/17 06:24 WBC 5.5 RBC 3.07 L Hgb 9.7 L Hct 30.0 L MCV 97.7 H MCH 31.6 H MCHC 32.3 L RDW 20.3 H Plt Count 147 MPV 9.3 Neut % (Auto) 78.8 H Lymph % (Auto) 10.2 L Howell % (Auto) 10.0 Eos % (Auto) 0.6 Baso % (Auto) 0.4 Neut # 4.3 Lymph # 0.6 L Howell # 0.6 Eos # 0.0 Baso # 0.0 Sodium Potassium Chloride Carbon Dioxide Anion Gap BUN Creatinine Est GFR ( Amer) Est GFR (Non-Af Amer) POC Glucose (mg/dL) Random Glucose Calcium Phosphorus Magnesium Total Bilirubin AST ALT Alkaline Phosphatase Total Protein Albumin Globulin Albumin/Globulin Ratio TSH 3rd Generation EKG/Cardiology Studies: Cardiology / EKG Studies 10/19/17 15:11 EKG [ELECTROCARDIOGRAM] Stat Comment: Mode Of Transportation: Reason For Exam: symptomatic bradycardia Isolation: Contact 10/20/17 09:00 EKG [ELECTROCARDIOGRAM] Routine Comment: off pacing Mode Of Transportation: PORTABLE Reason For Exam: eval QTC Isolation: Contact Critical Care Progress Note - Nutrition Nutrition: Nutrition Category Date Time Status Renal Diet [DIET] Diets 10/08/17 Dinner Active Assessment/Plan (1) Bradycardia Current Visit: Yes Status: Acute Comment: secondary to third-degree heart block, status post temporary pacemaker insertion Cardiology and EPS evaluation Patient refusing hemodialysis Follow-up lites Neurology evaluation Continue antibiotics for VRE (2) ESRD (end stage renal disease) on dialysis Current Visit: Yes Status: Acute (3) VRE (vancomycin resistant enterococcus) culture positive Current Visit: Yes Status: Acute (4) Cardiomyopathy Current Visit: No Status: Acute
[2017-10-20] MEDS ORDERED: Sodium Bicarbonate (8.4%) 50 Meq Syringe IVP ONE (11:08)
--- NOTE | 2017-10-20 11:10 | RAD ---
HISTORY: chf eval COMPARISON: Comparison is made with 10/19/2017 FINDINGS: LUNGS: Interval mild improvement in the lungs since the previous study. PLEURA: Bilateral pleural effusions are again seen. No significant interval change noted since the previous exam. CARDIOVASCULAR: Suboptimal evaluation of the cardiac silhouette due to bilateral pleural effusion and lower lobe atelectasis. OSSEOUS STRUCTURES: No significant interval change in the osseous structures P VISUALIZED UPPER ABDOMEN: Normal. OTHER FINDINGS: Right-sided hemodialysis catheter is again seen in place. Multiple wires and catheter overlying the chest. IMPRESSION: Interval mild improvement in the lungs since the previous exam.
--- NOTE | 2017-10-20 11:13 | CP.PCM.PN ---
Subjective - Date & Time of Evaluation Date of Evaluation: 10/20/17 Time of Evaluation: 11:11 - Subjective Subjective: transfered to ICU yesterday for SOB refused HD yesterday complaints of constipation no SOB ROS- as per HPI, other than that 10 point ROS negative Objective - Vital Signs/Intake and Output Vital Signs (last 24 hours): Temp Pulse Resp BP Pulse Ox 97.9 F 72 15 86/57 L 97 10/20/17 04:00 10/20/17 10:11 10/20/17 10:11 10/20/17 10:11 10/20/17 10:11 Intake and Output: 10/20/17 10/20/17 06:59 18:59 Intake Total 440 Output Total 100 Balance 340 - Medications Medications: Current Medications Amiodarone HCl (Cordarone) 400 mg PO BID [facility] Last Admin: 10/19/17 18:08 Dose: Not Given Aspirin (Aspirin Chewable) 81 mg PO DAILY [facility] [place] Famotidine (Pepcid) 20 mg PO DAILY [facility] [place] Last Admin: 10/19/17 11:05 Dose: 20 mg Calcium Gluconate 4.65 meq/ (Sodium Chloride) 110 mls @ 100 mls/hr IV ONCE ONE Stop: 10/20/17 12:13 Midodrine (Proamatine) 5 mg PO TID [facility] [place] Last Admin: 10/19/17 19:11 Dose: 5 mg Rosuvastatin Calcium (Crestor) 10 mg PO HS [facility] [place] Last Admin: 10/19/17 21:36 Dose: 10 mg Sodium Bicarbonate (Sodium Bicarbonate (8.4%) 50 Meq Syringe) 50 meq IVP ONCE ONE Stop: 10/20/17 11:09 Tamsulosin HCl (Flomax) 0.4 mg PO DAILY [facility] [place] Last Admin: 10/19/17 11:05 Dose: 0.4 mg Vitamin B Complex/Vit C/Folic Acid (Nephro-Aleksandra) 1 tab PO DAILY [facility] [place] Last Admin: 10/19/17 11:05 Dose: 1 tab - Labs Labs: 10/20/17 06:24 10/20/17 06:19 PT 13.4 SECONDS (9.7-12.2) H 10/07/17 07:57 INR 1.2 10/07/17 07:57 APTT 36 SECONDS (21-34) H 10/07/17 07:57 - Constitutional Appears: Well, Non-toxic, Older Than Stated Age - Head Exam Head Exam: ATRAUMATIC, NORMOCEPHALIC - Eye Exam Eye Exam: EOMI, Normal appearance - ENT Exam ENT Exam: Mucous Membranes Moist - Neck Exam Neck Exam: Full ROM - Respiratory Exam Respiratory Exam: Decreased Breath Sounds. absent: Rhonchi, Wheezes - Cardiovascular Exam Cardiovascular Exam: REGULAR RHYTHM, +S1, +S2 - GI/Abdominal Exam GI & Abdominal Exam: Soft. absent: Tenderness - Extremities Exam Extremities Exam: Normal Inspection. absent: Pedal Edema - Neurological Exam Neurological Exam: Alert, Awake, Oriented x3 - Psychiatric Exam Psychiatric exam: Flat Affect - Skin Skin Exam: Normal Color, Warm Assessment and Plan (1) Benign prostatic hyperplasia Status: Acute (2) ESRD (end stage renal disease) on dialysis Status: Acute (3) Hepatitis C antibody test positive Status: Acute (4) VRE (vancomycin resistant enterococcus) culture positive Status: Acute (5) Cardiomyopathy Status: Acute (6) Pleural effusion Status: Acute - Assessment and Plan (Free Text) Plan: had long discussion with patient regarding need for dialysis HD today if patient aggreable
--- NOTE | 2017-10-20 14:03 | CP.PCM.PN ---
Subjective - Date & Time of Evaluation Date of Evaluation: 10/20/17 Time of Evaluation: 14:03 - Subjective Subjective: DROPPED HR TO 30'S , ON TRANSVENOUS PACEMAKER AT 70/MIN BP LOW , 90-100 REFUSING MEDS AND DIALYSIS WANTS TO BE TRANSFERRED TO CARDIOLOGY HOSP WILL D/W DR. LANDAVERDE Objective - Vital Signs/Intake and Output Vital Signs (last 24 hours): Temp Pulse Resp BP Pulse Ox 97.6 F 72 24 98/54 L 99 10/20/17 12:00 10/20/17 13:50 10/20/17 13:50 10/20/17 13:41 10/20/17 10:40 Intake and Output: 10/20/17 10/20/17 11:59 23:59 Intake Total 500 0 Output Total 100 0 Balance 400 0 - Medications Medications: Current Medications Amiodarone HCl (Cordarone) 400 mg PO BID [facility] Last Admin: 10/20/17 10:00 Dose: Not Given Aspirin (Aspirin Chewable) 81 mg PO DAILY [facility] Famotidine (Pepcid) 20 mg PO DAILY [facility] Last Admin: 10/20/17 10:00 Dose: Not Given Midodrine (Proamatine) 5 mg PO TID [facility] Last Admin: 10/20/17 10:00 Dose: Not Given Rosuvastatin Calcium (Crestor) 10 mg PO HS [facility] Last Admin: 10/19/17 21:36 Dose: 10 mg Tamsulosin HCl (Flomax) 0.4 mg PO DAILY [facility] Last Admin: 10/20/17 10:00 Dose: Not Given Vitamin B Complex/Vit C/Folic Acid (Nephro-Aleksandra) 1 tab PO DAILY [facility] Last Admin: 10/20/17 10:00 Dose: Not Given - Labs Labs: 10/20/17 06:24 10/20/17 06:19 PT 13.4 SECONDS (9.7-12.2) H 10/07/17 07:57 INR 1.2 10/07/17 07:57 APTT 36 SECONDS (21-34) H 10/07/17 07:57
[2017-10-20] MEDS ORDERED: Epoetin Alfa 10,000 unit/ml Dialysis SC ONE (14:32)
[2017-10-20] MEDS: EPOETIN ALFA 10,000 UNIT/ML ML IV ONE ×2 (16:09→16:15)
--- NOTE | 2017-10-20 16:17 | CON ---
DATE: ATTENDING PHYSICIAN: Akhil Wang MD. REASON FOR CONSULTATION: Left arm numbness and tingling. HISTORY OF PRESENT ILLNESS: The patient is a 77-year-old gentleman with past medical history of CHF; pleural effusion; renal insufficiency, on dialysis; hypertension. The patient was initially admitted because of urinary tract infection and urinary frequency and urgency because of prostate hypertrophy and the patient was admitted for further evaluation because of significantly increased BUN and creatinine and initially the patient refused a renal dialysis. The patient's last creatinine was 4.8, currently at admission 8.1. The patient was admitted for evaluation and treatment and then the patient developed bradycardia and needed temporary pacemaker and the patient was complaining of numbness and tingling of the left arm and neuro consult was requested, but no weakness. The patient denies any weakness in the upper or lower extremities. Although, the patient is competent, oriented x3. PAST MEDICAL HISTORY: As mentioned above. In addition, past medical history of chronic renal failure, obstructive uropathy, urinary tract infection, cardiomyopathy. FAMILY HISTORY: Noncontributory. SOCIAL HISTORY: No smoker, no ethanol or drug abuser. ALLERGY: NO KNOWN ALLERGIC REACTION TO MEDICATIONS. MEDICATIONS: Reviewed as per chart. REVIEW OF SYSTEMS: As per H and P and ER note reviewed. PHYSICAL EXAMINATION: VITAL SIGNS: Blood pressure 111/91, pulse 72, respirations 16, temperature afebrile. NEUROLOGIC: Mental state: The patient is alert, awake, oriented x3. Normal naming, repetition and comprehension. No agnosia. No apraxia. No right to left confusion. No finger agnosia. Cranial nerves: Pupils asymmetrical, left pupil slightly deformed secondary to cataract surgery several years ago. Right pupil 3 mm, reactive with a dense cataract, although able to recognize the fingers. No facial asymmetry. V1 to V3 intact. Tongue midline. Accessory nerve intact. No nystagmus. No double vision. No field defect. Motor: Normal tone in upper and lower extremity. There is positive asterixis and myoclonic jerks in upper extremities while extending the arms with hyperextension of the wrist. 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 Lower extremities, hip flexion, knee flexion, extension, ankle dorsiflexion, plantar extension 5/5. Deep tendon reflexes 1 in upper extremities, knee, elbow, 1 in the lower extremity and the knee and ankle 0. Plantar flexion on both sides. Sensory: Pinprick, light touch symmetrical, increased in distal upper extremities distal to the wrist and in the lower extremities just below the knees bilaterally with hyperpigmentation of the leg bilaterally, most likely secondary to peripheral vascular disease. Coordination: [id number] intact. LABORATORY DATA: CAT scan of the brain reviewed consistent with periventricular white matter disease, mostly on the left parietal region in centrum semiovale area. In addition to frontal atrophy. I have reviewed the CAT scan. IMPRESSION: Transient numbness, tingling of the arm resolved. It could be secondary to the patient's neuropathy. 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 In addition, the patient has asterixis and myoclonus secondary to uremia. The patient will get the dialysis soon, in a few minutes will be started. We will repeat the CAT scan to rule out the cerebrovascular accident [ i doubt it] and carotid Doppler to rule out carotid stenosis. The patient is already on rosuvastatin and aspirin at this point and had temporary pacemaker at this point for his arrhythmia. Neurology mac, no further workup recommended at this point except for CAT scan and carotid Doppler. Thank you for the consultation. Linus Quinones MD [facility]
--- NOTE | 2017-10-20 21:11 | CP.PCM.PN ---
Subjective - Date & Time of Evaluation Date of Evaluation: 10/20/17 Time of Evaluation: 21:11 - Subjective Subjective: afebrile, BP 90-100S,HR 72/MIN Status post transvenous pacemaker [id number]/29/30 patient refusing dialysis Neurology evaluation for numbness patient is awake and responsive no shortness of breath, no chest pain Objective - Vital Signs/Intake and Output Vital Signs (last 24 hours): Temp Pulse Resp BP Pulse Ox 98 F 73 16 83/52 L 98 10/20/17 20:00 10/20/17 20:00 10/20/17 20:00 10/20/17 19:55 10/20/17 20:00 Intake and Output: 10/20/17 10/21/17 18:59 06:59 Intake Total 1880 100 Output Total 750 90 Balance 1130 10 - Medications Medications: Current Medications Amiodarone HCl (Cordarone) 400 mg PO BID [facility] Last Admin: 10/20/17 18:00 Dose: Not Given Aspirin (Aspirin Chewable) 81 mg PO DAILY [facility] Famotidine (Pepcid) 20 mg PO DAILY [facility] Last Admin: 10/20/17 10:00 Dose: Not Given Heparin Sodium (Porcine) (Heparin) 5,000 units SC Q12 [facility] Midodrine (Proamatine) 5 mg PO TID [facility] Last Admin: 10/20/17 18:45 Dose: 5 mg Rosuvastatin Calcium (Crestor) 10 mg PO HS [facility] Last Admin: 10/19/17 21:36 Dose: 10 mg Tamsulosin HCl (Flomax) 0.4 mg PO DAILY [facility] Last Admin: 10/20/17 10:00 Dose: Not Given Vitamin B Complex/Vit C/Folic Acid (Nephro-Aleksandra) 1 tab PO DAILY [facility] Last Admin: 10/20/17 10:00 Dose: Not Given - Labs Labs: 10/20/17 06:24 10/20/17 06:19 PT 13.4 SECONDS (9.7-12.2) H 10/07/17 07:57 INR 1.2 10/07/17 07:57 APTT 36 SECONDS (21-34) H 10/07/17 07:57 - Constitutional Appears: No Acute Distress, Cachectic, Chronically Ill - Head Exam Head Exam: NORMAL INSPECTION - Eye Exam Eye Exam: EOMI, PERRL, Scleral icterus - ENT Exam ENT Exam: Normal Oropharynx - Respiratory Exam Respiratory Exam: Clear to Ausculation Bilateral - Cardiovascular Exam Cardiovascular Exam: REGULAR RHYTHM, +S1, +S2 - GI/Abdominal Exam GI & Abdominal Exam: Soft, Normal Bowel Sounds - Extremities Exam Extremities Exam: Normal Capillary Refill. absent: Calf Tenderness, Pedal Edema - Neurological Exam Neurological Exam: Awake, CN II-XII Intact, Oriented x3 - Skin Skin Exam: Normal Color, Warm Assessment and Plan (1) UTI (urinary tract infection) Status: Acute (2) Acute urinary retention Status: Acute (3) Obstructed Beck catheter Status: Acute (4) Renal failure, acute on chronic Status: Acute (5) Cachexia Status: Acute (6) Cardiomyopathy Status: Acute (7) Benign prostatic hyperplasia Status: Acute (8) Hepatitis C antibody test positive Status: Acute - Assessment and Plan (Free Text) Assessment: ASSESSMENT; * S/P BRADYCARDIA WITH HYPOTENSION. S/P TRANSVENOUS PACER LEFT IJ * S/P urosepsis-pseudomonas aeruginosa /VRE. * acute urinary retention s/p CHRONIC FOLY * BPH. 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 * acute renal failure s/p RT.IJ HD cathether 10/02/17. On HD.S/P AVF * Hepatitis C+ve (HIV RNA QT. LEVELS UNDETECTABLE ) /PLAN : PT WANTS TO BE TRANSFERRED TO A [facility]. CASE DISCUSSED WITH THE STAFF HEMODIALYSIS PER RENAL. WILL FOLLOW CLOSELY. pLEASE NOTIFY IF ANY TEMPERATURE ABOVE 100.4. CONTACT [facility] HAS HISTORY OF VRE. PER CARDIOLOGY DR LANDAVERDE/ DR KEY
[2017-10-21 07:09] LABS: BASO % 1.1 % (0.0-2.0); EOS # 0.1 K/uL (0.0-0.7); EOS % 2.1 % (0.0-4.0); HEMOGLOBIN 9.3 g/dL (12.0-18.0); LYMPH # 0.6 K/uL (1.0-4.3); LYMPH % 14.2 % (20.0-40.0); MEAN CELL VOLUME 97.1 fL (80.0-94.0); MEAN CORPUSCULAR HEMOGLOBIN 31.5 pg (27.0-31.0); MEAN CORPUSCULAR HGB CONC 32.5 g/dL (33.0-37.0); MEAN PLATELET VOLUME 9.7 fL (7.2-11.7); MONO # 0.5 K/uL (0.0-0.8); MONO % 11.6 % (0.0-10.0); NEUT # 2.9 K/uL (1.8-7.0); NRBC % 0.2 % (0.0-2.0); RBC 2.95 Mil/uL (4.40-5.90); RED CELL DISTRIBUTION WIDTH 20.4 % (11.5-14.5); WHITE BLOOD COUNT 4.1 K/uL (4.8-10.8)
[2017-10-21 07:20] LABS: ALB/GLOB RATIO 0.7 (1.0-2.1); MAGNESIUM 1.7 mg/dL (1.6-2.3)
[2017-10-21] MEDS: Multivitamin Vitamin B Complex (Nephro-Vite) Tab PO SCH (10:05)
--- NOTE | 2017-10-21 14:40 | CP.PCM.PN ---
Subjective - Date & Time of Evaluation Date of Evaluation: 10/21/17 Time of Evaluation: 14:40 - Subjective Subjective: D/W DR LANDAVERDE Objective - Vital Signs/Intake and Output Vital Signs (last 24 hours): Temp Pulse Resp BP Pulse Ox 98.2 F 73 17 82/50 L 98 10/21/17 07:30 10/21/17 11:00 10/21/17 11:00 10/21/17 10:32 10/21/17 11:00 Intake and Output: 10/21/17 10/21/17 11:59 23:59 Output Total 300 Balance -300 - Medications Medications: Current Medications Amiodarone HCl (Cordarone) 400 mg PO BID [facility] Last Admin: 10/21/17 10:00 Dose: Not Given Aspirin (Aspirin Chewable) 81 mg PO DAILY [facility] Last Admin: 10/21/17 10:04 Dose: 81 mg Famotidine (Pepcid) 20 mg PO DAILY [facility] Last Admin: 10/21/17 10:04 Dose: 20 mg Heparin Sodium (Porcine) (Heparin) 5,000 units SC Q12 [facility] Last Admin: 10/21/17 10:04 Dose: 5,000 units Midodrine (Proamatine) 5 mg PO TID [facility] Last Admin: 10/21/17 13:34 Dose: 5 mg Rosuvastatin Calcium (Crestor) 10 mg PO HS [facility] Last Admin: 10/20/17 21:21 Dose: 10 mg Tamsulosin HCl (Flomax) 0.4 mg PO DAILY [facility] Last Admin: 10/21/17 10:04 Dose: 0.4 mg Vitamin B Complex/Vit C/Folic Acid (Nephro-Aleksandra) 1 tab PO DAILY [facility] Last Admin: 10/21/17 10:05 Dose: 1 tab - Labs Labs: 10/21/17 06:52 10/21/17 06:51 PT 13.4 SECONDS (9.7-12.2) H 10/07/17 07:57 INR 1.2 10/07/17 07:57 APTT 36 SECONDS (21-34) H 10/07/17 07:57
--- NOTE | 2017-10-21 20:08 | CP.CCUPN ---
CCU Subjective - Physician Review Events Since Last Encounter (Free Text): 10/21/17 20:07 no complaints. CCU Objective - Vital Signs / Intake & Output Vital Signs (Last 4 hours): Vital Signs Temp Pulse Resp BP Pulse Ox 10/21/17 20:00 98 F 72 18 98 10/21/17 19:17 72 15 89/54 L 98 10/21/17 18:17 72 14 85/48 L 98 10/21/17 18:00 72 22 98 10/21/17 17:17 72 22 81/49 L 98 10/21/17 17:00 72 19 100 10/21/17 16:17 72 22 90/50 L 100 Intake and Output (Last 8hrs): Intake & Output 10/21/17 10/21/17 10/21/17 06:59 14:59 22:59 Output Total 300 Balance -300 Weight 120 lb Output: Urine 300 Urethral (Beck) 300 - Physical Exam Head: Positive for: Atraumatic, Normocephalic Conjunctiva: Positive for: Normal Mouth: Positive for: Moist Mucous Membranes Neck: Positive for: Normal Range of Motion Respiratory/Chest: Positive for: Clear to Auscultation Cardiovascular: Positive for: Regular Rate and Rhythm Abdomen: Positive for: Normal Bowel Sounds Upper Extremity: Positive for: Normal Inspection Lower Extremity: Positive for: Normal Inspection - Medications Active Medications: Active Medications Generic Name Dose Route Start Last Admin Trade Name Freq PRN Reason Stop Dose Admin Amiodarone HCl 400 mg 09/28/17 18:00 10/21/17 18:00 Cordarone PO Not Given BID [facility] Aspirin 81 mg 10/21/17 10:00 10/21/17 10:04 Aspirin Chewable PO 81 mg DAILY [facility] Administration Famotidine 20 mg 09/26/17 10:00 10/21/17 10:04 Pepcid PO 20 mg DAILY [facility] Administration Heparin Sodium (Porcine) 5,000 units 10/20/17 22:00 10/21/17 10:04 Heparin SC 5,000 units Q12 [facility] Administration Midodrine 5 mg 10/18/17 10:32 10/21/17 18:19 Proamatine PO 5 mg TID [facility] Administration Rosuvastatin Calcium 10 mg 10/19/17 22:00 10/20/17 21:21 Crestor PO 10 mg HS [facility] Administration Tamsulosin HCl 0.4 mg 10/12/17 10:00 10/21/17 10:04 Flomax PO 0.4 mg DAILY [facility] Administration Vitamin B Complex/Vit C/Folic Acid 1 tab 10/12/17 10:00 10/21/17 10:05 Nephro-Aleksandra PO 1 tab DAILY [facility] Administration - Patient Studies Lab Studies: Microbiology Studies 10/19/17 19:00 MRSA Culture (Admit) - Final Naris MRSA NOT DETECTED Lab Studies 10/21/17 10/21/17 Range/Units 06:52 06:51 WBC 4.1 L (4.8-10.8) K/uL RBC 2.95 L (4.40-5.90) Mil/uL Hgb 9.3 L (12.0-18.0) g/dL Hct 28.6 L (35.0-51.0) % MCV 97.1 H (80.0-94.0) fL MCH 31.5 H (27.0-31.0) pg MCHC 32.5 L (33.0-37.0) g/dL RDW 20.4 H (11.5-14.5) % Plt Count 132 (130-400) K/uL MPV 9.7 (7.2-11.7) fL Neut % (Auto) 71.0 (50.0-75.0) % Lymph % (Auto) 14.2 L (20.0-40.0) % [place] % (Auto) 11.6 H (0.0-10.0) % Eos % (Auto) 2.1 (0.0-4.0) % Baso % (Auto) 1.1 (0.0-2.0) % Neut # 2.9 (1.8-7.0) K/uL Lymph # 0.6 L (1.0-4.3) K/uL [place] # 0.5 (0.0-0.8) K/uL Eos # 0.1 (0.0-0.7) K/uL Baso # 0.0 (0.0-0.2) K/uL Sodium 132 (132-148) mmol/L Potassium 4.6 (3.6-5.2) mmol/L Chloride 95 L (98-107) mmol/L Carbon Dioxide 26 (22-30) mmol/L Anion Gap 15 (10-20) BUN 61 H (9-20) mg/dL Creatinine 6.9 H (0.8-1.5) mg/dL Est GFR ( Amer) 9 Est GFR (Non-Af Amer) 8 Random Glucose 75 (75-110) mg/dL Calcium 7.0 L (8.6-10.4) mg/dl Phosphorus 5.3 H (2.5-4.5) mg/dL Magnesium 1.7 (1.6-2.3) mg/dL Total Bilirubin 0.4 (0.2-1.3) mg/dL AST 49 (17-59) U/L ALT 64 (21-72) U/L Alkaline Phosphatase 162 H (38-126) U/L Total Protein 7.1 (6.3-8.3) g/dL Albumin 3.0 L (3.5-5.0) g/dL Globulin 4.1 H (2.2-3.9) gm/dL Albumin/Globulin Ratio 0.7 L (1.0-2.1) Laboratory Results - last 24 hr 10/21/17 10/21/17 06:51 06:52 WBC 4.1 L RBC 2.95 L Hgb 9.3 L Hct 28.6 L MCV 97.1 H MCH 31.5 H MCHC 32.5 L RDW 20.4 H Plt Count 132 MPV 9.7 Neut % (Auto) 71.0 Lymph % (Auto) 14.2 L [place] % (Auto) 11.6 H Eos % (Auto) 2.1 Baso % (Auto) 1.1 Neut # 2.9 Lymph # 0.6 L [place] # 0.5 Eos # 0.1 Baso # 0.0 Sodium 132 Potassium 4.6 Chloride 95 L Carbon Dioxide 26 Anion Gap 15 BUN 61 H Creatinine 6.9 H Est GFR ( Amer) 9 Est GFR (Non-Af Amer) 8 Random Glucose 75 Calcium 7.0 L Phosphorus 5.3 H Magnesium 1.7 Total Bilirubin 0.4 AST 49 ALT 64 Alkaline Phosphatase 162 H Total Protein 7.1 Albumin 3.0 L Globulin 4.1 H Albumin/Globulin Ratio 0.7 L Review of Systems - Review of Systems All systems: reviewed and no additional remarkable complaints except Critical Care Progress Note - Nutrition Nutrition: Nutrition Category Date Time Status Renal Diet [DIET] Diets 10/08/17 Dinner Active Assessment/Plan (1) Bradycardia Assessment and plan: Past medical history of BPH, CHF with ejection fraction of 15%. During this admission patient was started on dialysis (MWF). Patient also needs PPM placement for bradycardia, currently awaiting placement. Continue midodrine for hypotension during dialysis. BPH, continue Flomax. Current Visit: Yes Status: Acute Comment: secondary to third-degree heart block, status post temporary pacemaker insertion Cardiology and EPS evaluation Patient refusing hemodialysis Follow-up lites Neurology evaluation Continue antibiotics for VRE
[2017-10-22 06:58] LABS: EOS # 0.1 K/uL (0.0-0.7); EOS % 2.9 % (0.0-4.0); HEMOGLOBIN 9.6 g/dL (12.0-18.0); LYMPH # 0.8 K/uL (1.0-4.3); LYMPH % 19.2 % (20.0-40.0); MEAN CELL VOLUME 97.4 fL (80.0-94.0); MEAN CORPUSCULAR HEMOGLOBIN 31.2 pg (27.0-31.0); MEAN CORPUSCULAR HGB CONC 32.1 g/dL (33.0-37.0); MEAN PLATELET VOLUME 9.6 fL (7.2-11.7); MONO # 0.4 K/uL (0.0-0.8); MONO % 10.5 % (0.0-10.0); NEUT # 2.8 K/uL (1.8-7.0); NEUT % 66.4 % (50.0-75.0); NRBC % 0.2 % (0.0-2.0); RBC 3.07 Mil/uL (4.40-5.90); RED CELL DISTRIBUTION WIDTH 20.3 % (11.5-14.5); WHITE BLOOD COUNT 4.2 K/uL (4.8-10.8)
[2017-10-22 07:45] LABS: ALB/GLOB RATIO 0.8 (1.0-2.1); CALCIUM 6.9 mg/dl (8.6-10.4); MAGNESIUM 1.9 mg/dL (1.6-2.3)
[2017-10-22] MEDS: Multivitamin Vitamin B Complex (Nephro-Vite) Tab PO SCH (09:30)
--- NOTE | 2017-10-22 12:27 | CP.PCM.PN ---
Subjective - Date & Time of Evaluation Date of Evaluation: 10/22/17 Time of Evaluation: 12:25 - Subjective Subjective: Events noted; s/p sherron episode Due for dialysis now- mininal UF due to sherron episode Hg lower- to start EPO Phos elevated again - resume phoslo No more CPs, less MAYES, same weakness BP acceptable now Objective - Vital Signs/Intake and Output Vital Signs (last 24 hours): Temp Pulse Resp BP Pulse Ox 98.3 F 73 21 96/57 L 95 10/22/17 12:00 10/22/17 12:00 10/22/17 12:00 10/22/17 11:17 10/22/17 12:00 Intake and Output: 10/22/17 10/22/17 06:59 18:59 Intake Total 100 Output Total 100 Balance 100 -100 - Medications Medications: Current Medications Amiodarone HCl (Cordarone) 400 mg PO BID [facility] Last Admin: 10/22/17 09:30 Dose: 400 mg Aspirin (Aspirin Chewable) 81 mg PO DAILY [facility] Last Admin: 10/21/17 10:04 Dose: 81 mg Calcium Acetate (Phoslo) 667 mg PO TID [facility] Epoetin Pepe (Procrit) 10,000 unit IV MWF [facility] Famotidine (Pepcid) 20 mg PO DAILY [facility] Last Admin: 10/22/17 09:29 Dose: 20 mg Heparin Sodium (Porcine) (Heparin) 5,000 units SC Q12 [facility] Last Admin: 10/22/17 09:30 Dose: 5,000 units Midodrine (Proamatine) 5 mg PO TID [facility] Last Admin: 10/22/17 09:30 Dose: 5 mg Rosuvastatin Calcium (Crestor) 10 mg PO HS [facility] Last Admin: 10/21/17 21:37 Dose: 10 mg Tamsulosin HCl (Flomax) 0.4 mg PO DAILY [facility] Last Admin: 10/22/17 09:30 Dose: 0.4 mg Vitamin B Complex/Vit C/Folic Acid (Nephro-Aleksandra) 1 tab PO DAILY [facility] Last Admin: 10/22/17 09:30 Dose: 1 tab - Labs Labs: 10/22/17 06:36 10/22/17 06:36 PT 13.4 SECONDS (9.7-12.2) H 10/07/17 07:57 INR 1.2 10/07/17 07:57 APTT 36 SECONDS (21-34) H 10/07/17 07:57 - Constitutional Appears: No Acute Distress, Agitated, Chronically Ill - Head Exam Head Exam: ATRAUMATIC, NORMAL INSPECTION - Eye Exam Eye Exam: EOMI, Normal appearance - Neck Exam Neck Exam: Normal Inspection. absent: Tenderness - Respiratory Exam Respiratory Exam: Clear to Ausculation Bilateral, NORMAL BREATHING PATTERN - Cardiovascular Exam Cardiovascular Exam: REGULAR RHYTHM, +S1 - GI/Abdominal Exam GI & Abdominal Exam: Soft. absent: Tenderness - Extremities Exam Extremities Exam: Normal Inspection. absent: Tenderness - Neurological Exam Neurological Exam: Alert, CN II-XII Intact - Skin Skin Exam: Dry, Warm Assessment and Plan (1) CKD (chronic kidney disease) stage 5, GFR less than 15 ml/min Status: Acute (2) Acute urinary retention Status: Acute (3) Obstructed Beck catheter Status: Acute (4) Cardiomyopathy Status: Acute (5) Hepatitis C antibody positive in blood Status: Acute (6) VRE (vancomycin resistant enterococcus) culture positive Status: Acute (7) ESRD (end stage renal disease) on dialysis Status: Acute (8) Hepatitis C antibody test positive Status: Acute - Assessment and Plan (Free Text) Plan: Dialysis now UF minimal Add ESAs Re-add phoslo Might need PPM
[2017-10-22] MEDS ORDERED: Albumin Human 25% (12.5 gm/50 ml) IV ONE (12:45)
[2017-10-22] MEDS: Epoetin Alfa 10,000 unit/ml Dialysis IV SCH (14:30)
--- NOTE | 2017-10-22 14:33 | CP.PCM.PN ---
Subjective - Date & Time of Evaluation Date of Evaluation: 10/22/17 Time of Evaluation: 14:30 - Subjective Subjective: on dialysis bp stable paced rhythm awaiting EP INPUT Objective - Vital Signs/Intake and Output Vital Signs (last 24 hours): Temp Pulse Resp BP Pulse Ox 96.2 F L 72 18 89/59 L 98 10/22/17 12:20 10/22/17 14:20 10/22/17 14:20 10/22/17 14:20 10/22/17 14:20 Intake and Output: 10/22/17 10/22/17 11:59 23:59 Output Total 100 Balance -100 - Medications Medications: Current Medications Amiodarone HCl (Cordarone) 400 mg PO BID [facility] Last Admin: 10/22/17 09:30 Dose: 400 mg Aspirin (Aspirin Chewable) 81 mg PO DAILY [facility] Last Admin: 10/22/17 12:41 Dose: 81 mg Calcium Acetate (Phoslo) 667 mg PO TID [facility] Epoetin Pepe (Procrit) 10,000 unit IV MWF [facility] Famotidine (Pepcid) 20 mg PO DAILY [facility] Last Admin: 10/22/17 09:29 Dose: 20 mg Heparin Sodium (Porcine) (Heparin) 5,000 units SC Q12 [facility] Last Admin: 10/22/17 09:30 Dose: 5,000 units Midodrine (Proamatine) 5 mg PO TID [facility] Last Admin: 10/22/17 09:30 Dose: 5 mg Rosuvastatin Calcium (Crestor) 10 mg PO HS [facility] Last Admin: 10/21/17 21:37 Dose: 10 mg Tamsulosin HCl (Flomax) 0.4 mg PO DAILY [facility] Last Admin: 10/22/17 09:30 Dose: 0.4 mg Vitamin B Complex/Vit C/Folic Acid (Nephro-Aleksandra) 1 tab PO DAILY [facility] Last Admin: 10/22/17 09:30 Dose: 1 tab - Labs Labs: 10/22/17 06:36 10/22/17 06:36 PT 13.4 SECONDS (9.7-12.2) H 10/07/17 07:57 INR 1.2 10/07/17 07:57 APTT 36 SECONDS (21-34) H 10/07/17 07:57
--- NOTE | 2017-10-22 19:04 | CP.CCUPN ---
CCU Subjective - Physician Review Events Since Last Encounter (Free Text): 10/22/17 19:03 no complaints. CCU Objective - Vital Signs / Intake & Output Vital Signs (Last 4 hours): Vital Signs Temp Pulse Resp BP Pulse Ox 10/22/17 16:00 97.8 F 10/22/17 15:17 73 21 87/50 L 97 Intake and Output (Last 8hrs): Intake & Output 10/22/17 10/22/17 10/22/17 06:59 14:59 22:59 Output Total 100 Balance -100 Weight 120 lb 8 oz Output: Urine 100 Urethral (Beck) 100 - Physical Exam Head: Positive for: Atraumatic, Normocephalic Conjunctiva: Positive for: Normal Mouth: Positive for: Moist Mucous Membranes Neck: Positive for: Normal Range of Motion Respiratory/Chest: Positive for: Clear to Auscultation Cardiovascular: Positive for: Regular Rate and Rhythm Abdomen: Positive for: Normal Bowel Sounds Upper Extremity: Positive for: Normal Inspection Lower Extremity: Positive for: Normal Inspection - Medications Active Medications: Active Medications Generic Name Dose Route Start Last Admin Trade Name Freq PRN Reason Stop Dose Admin Amiodarone HCl 400 mg 09/28/17 18:00 10/22/17 09:30 Cordarone PO 400 mg BID [facility] Administration Aspirin 81 mg 10/21/17 10:00 10/22/17 12:41 Aspirin Chewable PO 81 mg DAILY [facility] Administration Calcium Acetate 667 mg 10/22/17 14:00 10/22/17 15:15 Phoslo PO 667 mg TID [facility] Administration Epoetin Pepe 10,000 unit 10/22/17 14:30 10/22/17 14:30 Procrit IV 10,000 unit MWF [facility] Administration Famotidine 20 mg 09/26/17 10:00 10/22/17 09:29 Pepcid PO 20 mg DAILY [facility] Administration Heparin Sodium (Porcine) 5,000 units 10/20/17 22:00 10/22/17 09:30 Heparin SC 5,000 units Q12 [facility] Administration Midodrine 5 mg 10/18/17 10:32 10/22/17 15:15 Proamatine PO 5 mg TID [facility] Administration Rosuvastatin Calcium 10 mg 10/19/17 22:00 10/21/17 21:37 Crestor PO 10 mg HS [facility] Administration Tamsulosin HCl 0.4 mg 10/12/17 10:00 10/22/17 09:30 Flomax PO 0.4 mg DAILY [facility] Administration Vitamin B Complex/Vit C/Folic Acid 1 tab 10/12/17 10:00 10/22/17 09:30 Nephro-Aleksandra PO 1 tab DAILY [facility] Administration - Patient Studies Lab Studies: Lab Studies 10/22/17 10/22/17 Range/Units 06:36 06:36 WBC 4.2 L (4.8-10.8) K/uL RBC 3.07 L (4.40-5.90) Mil/uL Hgb 9.6 L (12.0-18.0) g/dL Hct 29.9 L (35.0-51.0) % MCV 97.4 H (80.0-94.0) fL MCH 31.2 H (27.0-31.0) pg MCHC 32.1 L (33.0-37.0) g/dL RDW 20.3 H (11.5-14.5) % Plt Count 144 (130-400) K/uL MPV 9.6 (7.2-11.7) fL Neut % (Auto) 66.4 (50.0-75.0) % Lymph % (Auto) 19.2 L (20.0-40.0) % [place] % (Auto) 10.5 H (0.0-10.0) % Eos % (Auto) 2.9 (0.0-4.0) % Baso % (Auto) 1.0 (0.0-2.0) % Neut # 2.8 (1.8-7.0) K/uL Lymph # 0.8 L (1.0-4.3) K/uL [place] # 0.4 (0.0-0.8) K/uL Eos # 0.1 (0.0-0.7) K/uL Baso # 0.0 (0.0-0.2) K/uL Sodium 132 (132-148) mmol/L Potassium 4.8 (3.6-5.2) mmol/L Chloride 96 L (98-107) mmol/L Carbon Dioxide 22 (22-30) mmol/L Anion Gap 18 (10-20) BUN 81 H (9-20) mg/dL Creatinine 8.4 H* D (0.8-1.5) mg/dL Est GFR ( Amer) 8 Est GFR (Non-Af Amer) 6 Random Glucose 105 (75-110) mg/dL Calcium 6.9 L (8.6-10.4) mg/dl Phosphorus 6.9 H (2.5-4.5) mg/dL Magnesium 1.9 (1.6-2.3) mg/dL Total Bilirubin 0.4 (0.2-1.3) mg/dL AST 44 (17-59) U/L ALT 64 (21-72) U/L Alkaline Phosphatase 147 H (38-126) U/L Total Protein 7.0 (6.3-8.3) g/dL Albumin 3.0 L (3.5-5.0) g/dL Globulin 3.9 (2.2-3.9) gm/dL Albumin/Globulin Ratio 0.8 L (1.0-2.1) Laboratory Results - last 24 hr 10/22/17 10/22/17 06:36 06:36 WBC 4.2 L RBC 3.07 L Hgb 9.6 L Hct 29.9 L MCV 97.4 H MCH 31.2 H MCHC 32.1 L RDW 20.3 H Plt Count 144 MPV 9.6 Neut % (Auto) 66.4 Lymph % (Auto) 19.2 L [place] % (Auto) 10.5 H Eos % (Auto) 2.9 Baso % (Auto) 1.0 Neut # 2.8 Lymph # 0.8 L [place] # 0.4 Eos # 0.1 Baso # 0.0 Sodium 132 Potassium 4.8 Chloride 96 L Carbon Dioxide 22 Anion Gap 18 BUN 81 H Creatinine 8.4 H* D Est GFR ( Amer) 8 Est GFR (Non-Af Amer) 6 Random Glucose 105 Calcium 6.9 L Phosphorus 6.9 H Magnesium 1.9 Total Bilirubin 0.4 AST 44 ALT 64 Alkaline Phosphatase 147 H Total Protein 7.0 Albumin 3.0 L Globulin 3.9 Albumin/Globulin Ratio 0.8 L Review of Systems - Review of Systems All systems: reviewed and no additional remarkable complaints except Critical Care Progress Note - Nutrition Nutrition: Nutrition Category Date Time Status Renal Diet [DIET] Diets 10/08/17 Dinner Active Assessment/Plan (1) Bradycardia Assessment and plan: Past medical history of BPH, CHF with ejection fraction of 15%. During this admission patient was started on dialysis (MWF). Patient also needs PPM placement for bradycardia, currently awaiting placement. Continue midodrine for hypotension during dialysis. BPH, continue Flomax. Current Visit: Yes Status: Acute Comment: secondary to third-degree heart block, status post temporary pacemaker insertion Cardiology and EPS evaluation Patient refusing hemodialysis Follow-up lites Neurology evaluation Continue antibiotics for VRE
--- NOTE | 2017-10-22 22:30 | CP.PCM.PN ---
Subjective - Date & Time of Evaluation Date of Evaluation: 10/22/17 Time of Evaluation: 22:22 - Subjective Subjective: Case reviewed Imaging telemetry seen and examined offered no complaints Objective - Vital Signs/Intake and Output Vital Signs (last 24 hours): Temp Pulse Resp BP Pulse Ox 97.8 F 72 14 97/52 L 93 L 10/22/17 16:00 10/22/17 20:00 10/22/17 20:00 10/22/17 19:20 10/22/17 19:20 Intake and Output: 10/22/17 10/23/17 18:59 06:59 Output Total 100 Balance -100 - Medications Medications: Current Medications Amiodarone HCl (Cordarone) 400 mg PO BID [facility] Last Admin: 10/22/17 20:03 Dose: 400 mg Aspirin (Aspirin Chewable) 81 mg PO DAILY [facility] Last Admin: 10/22/17 12:41 Dose: 81 mg Calcium Acetate (Phoslo) 667 mg PO TID [facility] Last Admin: 10/22/17 21:55 Dose: 667 mg Epoetin Pepe (Procrit) 10,000 unit IV MWF [facility] Last Admin: 10/22/17 14:30 Dose: 10,000 unit Famotidine (Pepcid) 20 mg PO DAILY [facility] Last Admin: 10/22/17 09:29 Dose: 20 mg Heparin Sodium (Porcine) (Heparin) 5,000 units SC Q12 [facility] Last Admin: 10/22/17 21:55 Dose: 5,000 units Midodrine (Proamatine) 5 mg PO TID [facility] Last Admin: 10/22/17 20:02 Dose: 5 mg Rosuvastatin Calcium (Crestor) 10 mg PO HS [facility] Last Admin: 10/22/17 21:54 Dose: 10 mg Tamsulosin HCl (Flomax) 0.4 mg PO DAILY [facility] Last Admin: 10/22/17 09:30 Dose: 0.4 mg Vitamin B Complex/Vit C/Folic Acid (Nephro-Aleksandra) 1 tab PO DAILY [facility] Last Admin: 10/22/17 09:30 Dose: 1 tab - Labs Labs: 10/22/17 06:36 10/22/17 06:36 PT 13.4 SECONDS (9.7-12.2) H 10/07/17 07:57 INR 1.2 10/07/17 07:57 APTT 36 SECONDS (21-34) H 10/07/17 07:57 Assessment and Plan - Assessment and Plan (Free Text) Assessment: Dr. Palmer developed an interval bradycardia with a third degree AV block per DR. Aparicio with an escape rate in the thirtees; a transvenous pacemaker was placed emergently and transferred to the ICU. There was no suggestion or setting for a vagal response or a ana-dialytic process Currently is paced at heart rates of 60 with an underlying slow sinus rhythm and a first degree AV block and prolonged (2 seconds pauses) Pacemaker is set at 60 with sensitivity of 4 and amplitude of 25 V Given the absence of a known myocardial conduction stressor (medications vagal etc) warranting the need for a device, options include placement of a pacemaker and a life vest and reassess the need for an ICD in 90 days; however it may be prudent to place an ICD; of note some obstructive vascular disease Plan venous dopplers of the upper extremities NPO post breakfast Possible ICD in PM tomorrow or sunday Avoid AV kenzie stressors including electrolyte aberrations
--- NOTE | 2017-10-22 23:06 | CP.PCM.PN ---
Subjective - Date & Time of Evaluation Date of Evaluation: 10/22/17 Time of Evaluation: 23:06 - Subjective Subjective: afebrile, BP 90S HEART RHYTHM PACED OFFERS NO COMPLAINTS. Status post transvenous pacemaker insertion 10/19/[address] KULKARNI PT FOR VENOUS DOPPLER UPPER EXTREMITIES. Objective - Vital Signs/Intake and Output Vital Signs (last 24 hours): Temp Pulse Resp BP Pulse Ox 98 F 63 25 H 93/44 L 100 10/22/17 20:00 10/22/17 22:17 10/22/17 22:17 10/22/17 22:06 10/22/17 22:17 Intake and Output: 10/22/17 10/23/17 18:59 06:59 Output Total 100 Balance -100 - Medications Medications: Current Medications Amiodarone HCl (Cordarone) 400 mg PO BID [facility] Last Admin: 10/22/17 20:03 Dose: 400 mg Aspirin (Aspirin Chewable) 81 mg PO DAILY [facility] Last Admin: 10/22/17 12:41 Dose: 81 mg Calcium Acetate (Phoslo) 667 mg PO TID [facility] Last Admin: 10/22/17 21:55 Dose: 667 mg Epoetin Pepe (Procrit) 10,000 unit IV MWF [facility] Last Admin: 10/22/17 14:30 Dose: 10,000 unit Famotidine (Pepcid) 20 mg PO DAILY [facility] Last Admin: 10/22/17 09:29 Dose: 20 mg Heparin Sodium (Porcine) (Heparin) 5,000 units SC Q12 [facility] Last Admin: 10/22/17 21:55 Dose: 5,000 units Midodrine (Proamatine) 5 mg PO TID [facility] Last Admin: 10/22/17 20:02 Dose: 5 mg Rosuvastatin Calcium (Crestor) 10 mg PO HS [facility] Last Admin: 10/22/17 21:54 Dose: 10 mg Tamsulosin HCl (Flomax) 0.4 mg PO DAILY [facility] Last Admin: 10/22/17 09:30 Dose: 0.4 mg Vitamin B Complex/Vit C/Folic Acid (Nephro-Aleksandra) 1 tab PO DAILY [facility] Last Admin: 10/22/17 09:30 Dose: 1 tab - Labs Labs: 10/22/17 06:36 10/22/17 06:36 PT 13.4 SECONDS (9.7-12.2) H 10/07/17 07:57 INR 1.2 10/07/17 07:57 APTT 36 SECONDS (21-34) H 10/07/17 07:57 - Constitutional Appears: No Acute Distress, Cachectic, Chronically Ill - Head Exam Head Exam: NORMAL INSPECTION - Eye Exam Eye Exam: EOMI, PERRL - ENT Exam ENT Exam: Normal Oropharynx - Neck Exam Neck Exam: Normal Inspection - Respiratory Exam Respiratory Exam: Clear to Ausculation Bilateral - Cardiovascular Exam Cardiovascular Exam: REGULAR RHYTHM, +S1, +S2 - GI/Abdominal Exam GI & Abdominal Exam: Soft, Normal Bowel Sounds - Extremities Exam Extremities Exam: absent: Calf Tenderness, Pedal Edema - Neurological Exam Neurological Exam: Awake, CN II-XII Intact, Oriented x3 - Psychiatric Exam Psychiatric exam: Normal Mood - Skin Skin Exam: Normal Color, Warm Assessment and Plan (1) Bradycardia Assessment & Plan: PT W LT.IJ TRANSVENOUS PACEMAKER. SEEN BY EPS DR KULKARNI . FOR ICD PER DR KULKARNI Status: Acute (2) UTI (urinary tract infection) Assessment & Plan: S/P UTI. OFF ABX. +VE CHRONIC FOLYS Status: Acute (3) Acute urinary retention Status: Acute (4) Obstructed Beck catheter Status: Acute (5) Renal failure, acute on chronic Assessment & Plan: ON HD MWF. Status: Acute (6) Cachexia Status: Acute (7) Cardiomyopathy Status: Acute (8) Benign prostatic hyperplasia Status: Acute (9) Hepatitis C antibody test positive Status: Acute
[2017-10-23 06:34] LABS: BASO % 0.8 % (0.0-2.0); EOS % 0.7 % (0.0-4.0); HEMOGLOBIN 9.6 g/dL (12.0-18.0); LYMPH # 0.7 K/uL (1.0-4.3); LYMPH % 13.2 % (20.0-40.0); MEAN CELL VOLUME 97.5 fL (80.0-94.0); MEAN CORPUSCULAR HEMOGLOBIN 31.7 pg (27.0-31.0); MEAN CORPUSCULAR HGB CONC 32.5 g/dL (33.0-37.0); MEAN PLATELET VOLUME 9.9 fL (7.2-11.7); MONO # 0.5 K/uL (0.0-0.8); MONO % 10.1 % (0.0-10.0); NEUT # 3.9 K/uL (1.8-7.0); NEUT % 75.2 % (50.0-75.0); NRBC % 0.1 % (0.0-2.0); RBC 3.01 Mil/uL (4.40-5.90); RED CELL DISTRIBUTION WIDTH 20.3 % (11.5-14.5); WHITE BLOOD COUNT 5.2 K/uL (4.8-10.8)
[2017-10-23 06:49] LABS: ALB/GLOB RATIO 0.8 (1.0-2.1); ALBUMIN 3.3 g/dL (3.5-5.0); CALCIUM 7.3 mg/dl (8.6-10.4); MAGNESIUM 1.8 mg/dL (1.6-2.3)
[2017-10-23] MEDS: Multivitamin Vitamin B Complex (Nephro-Vite) Tab PO SCH (09:17)
--- NOTE | 2017-10-23 12:44 | CARD ---
APPROVED REPORT EKG Measurement Heart [id number] <Conclusion> Ventricular-paced rhythm Abnormal ECG
--- NOTE | 2017-10-23 13:54 | CP.PCM.PN ---
Subjective - Date & Time of Evaluation Date of Evaluation: 10/23/17 Time of Evaluation: 13:51 - Subjective Subjective: CLINICALLY STABLE HR AT 60/MIN PACED EVALUATED BY EP , FOR AICD PT VERY STUBBORN AND WANTS TREATMENT HE WISHES AND REFUSING TREATMENT AND BLOOD TESTS MULTIPLE TIMES Objective - Vital Signs/Intake and Output Vital Signs (last 24 hours): Temp Pulse Resp BP Pulse Ox 98.2 F 62 17 81/45 L 100 10/23/17 12:00 10/23/17 13:09 10/23/17 13:09 10/23/17 13:09 10/23/17 12:00 Intake and Output: 10/23/17 10/23/17 11:59 23:59 Intake Total 420 0 Output Total 220 Balance 200 0 - Medications Medications: Current Medications Amiodarone HCl (Cordarone) 400 mg PO BID [facility] Last Admin: 10/23/17 09:17 Dose: 400 mg Aspirin (Aspirin Chewable) 81 mg PO DAILY [facility] Last Admin: 10/23/17 09:17 Dose: 81 mg Calcium Acetate (Phoslo) 667 mg PO TID [facility] Last Admin: 10/23/17 09:17 Dose: 667 mg Epoetin Pepe (Procrit) 10,000 unit IV MWF [facility] Last Admin: 10/22/17 14:30 Dose: 10,000 unit Famotidine (Pepcid) 20 mg PO DAILY [facility] Last Admin: 10/23/17 09:18 Dose: 20 mg Heparin Sodium (Porcine) (Heparin) 5,000 units SC Q12 [facility] Last Admin: 10/23/17 09:18 Dose: 5,000 units Midodrine (Proamatine) 5 mg PO TID [facility] Last Admin: 10/23/17 09:16 Dose: 5 mg Rosuvastatin Calcium (Crestor) 10 mg PO HS [facility] Last Admin: 10/22/17 21:54 Dose: 10 mg Tamsulosin HCl (Flomax) 0.4 mg PO DAILY [facility] Last Admin: 10/23/17 09:18 Dose: 0.4 mg Vitamin B Complex/Vit C/Folic Acid (Nephro-Aleksandra) 1 tab PO DAILY [facility] Last Admin: 10/23/17 09:17 Dose: 1 tab - Labs Labs: 10/23/17 06:10 10/23/17 06:11 PT 13.4 SECONDS (9.7-12.2) H 10/07/17 07:57 INR 1.2 10/07/17 07:57 APTT 36 SECONDS (21-34) H 10/07/17 07:57
--- NOTE | 2017-10-23 14:27 | CARD ---
APPROVED REPORT EKG Measurement Heart [id number] <Conclusion> Marked sinus bradycardia with sinus arrhythmia with 1st degree AV block Nonspecific intraventricular block Abnormal ECG
--- NOTE | 2017-10-23 14:30 | CP.CCUPN ---
Addendum entered and electronically signed by Karina Rivera DO 10/23/17 16:07: left DVT of upper extremity Addendum entered and electronically signed by Karina Rivera DO 10/23/17 15:45: patient has a transvenous pacer Original Note: <Karina Rivera - Last Filed: 10/23/17 14:27> CCU Subjective - Physician Review Subjective (Free Text): 10/23/17 14:[address] Gordo Negron seen and examined at bedside. Patient states he tolerated dialysis yesterday and is aware that he needs an AICD. Patient denies chest pain, fever, chills, shortness of breath. Critical Care Time Spent (in minutes): 35 CCU Objective - Vital Signs / Intake & Output Vital Signs (Last 4 hours): Vital Signs Temp Pulse Resp BP Pulse Ox 10/23/17 13:09 62 17 81/45 L 10/23/17 12:09 65 21 87/51 L 10/23/17 12:00 98.2 F 100 10/23/17 11:09 65 22 89/50 L Intake and Output (Last 8hrs): Intake & Output 10/22/17 10/23/17 10/23/17 22:59 06:59 14:59 Intake Total 420 Output Total 220 Balance 200 Weight 120 lb 8 oz Intake: Oral 420 Output: Urine 220 Urethral (Beck) 220 - Physical Exam Head: Positive for: Atraumatic, Normocephalic Conjunctiva: Positive for: Normal Mouth: Positive for: Moist Mucous Membranes Neck: Positive for: Normal Range of Motion, Other (temporary pacemaker) Respiratory/Chest: Positive for: Clear to Auscultation Cardiovascular: Positive for: Regular Rate and Rhythm Abdomen: Positive for: Normal Bowel Sounds Upper Extremity: Positive for: Normal Inspection Lower Extremity: Positive for: Normal Inspection - Medications Active Medications: Active Medications Generic Name Dose Route Start Last Admin Trade Name Freq PRN Reason Stop Dose Admin Amiodarone HCl 400 mg 09/28/17 18:00 10/23/17 09:17 Cordarone PO 400 mg BID [facility] Administration Aspirin 81 mg 10/21/17 10:00 10/23/17 09:17 Aspirin Chewable PO 81 mg DAILY [facility] Administration Calcium Acetate 667 mg 10/22/17 14:00 10/23/17 13:56 Phoslo PO 667 mg TID [facility] Administration Epoetin Pepe 10,000 unit 10/22/17 14:30 10/22/17 14:30 Procrit IV 10,000 unit MWF [facility] Administration Famotidine 20 mg 09/26/17 10:00 10/23/17 09:18 Pepcid PO 20 mg DAILY [facility] Administration Heparin Sodium (Porcine) 5,000 units 10/20/17 22:00 10/23/17 09:18 Heparin SC 5,000 units Q12 [facility] Administration Midodrine 5 mg 10/18/17 10:32 10/23/17 13:56 Proamatine PO 5 mg TID [facility] Administration Rosuvastatin Calcium 10 mg 10/19/17 22:00 10/22/17 21:54 Crestor PO 10 mg HS [facility] Administration Tamsulosin HCl 0.4 mg 10/12/17 10:00 10/23/17 09:18 Flomax PO 0.4 mg DAILY [facility] Administration Vitamin B Complex/Vit C/Folic Acid 1 tab 10/12/17 10:00 10/23/17 09:17 Nephro-Aleksandra PO 1 tab DAILY [facility] Administration - Patient Studies Lab Studies: Lab Studies 10/23/17 10/23/17 Range/Units 06:11 06:10 WBC 5.2 (4.8-10.8) K/uL RBC 3.01 L (4.40-5.90) Mil/uL Hgb 9.6 L (12.0-18.0) g/dL Hct 29.4 L (35.0-51.0) % MCV 97.5 H (80.0-94.0) fL MCH 31.7 H (27.0-31.0) pg MCHC 32.5 L (33.0-37.0) g/dL RDW 20.3 H (11.5-14.5) % Plt Count 133 (130-400) K/uL MPV 9.9 (7.2-11.7) fL Neut % (Auto) 75.2 H (50.0-75.0) % Lymph % (Auto) 13.2 L (20.0-40.0) % [place] % (Auto) 10.1 H (0.0-10.0) % Eos % (Auto) 0.7 (0.0-4.0) % Baso % (Auto) 0.8 (0.0-2.0) % Neut # 3.9 (1.8-7.0) K/uL Lymph # 0.7 L (1.0-4.3) K/uL [place] # 0.5 (0.0-0.8) K/uL Eos # 0.0 (0.0-0.7) K/uL Baso # 0.0 (0.0-0.2) K/uL Sodium 131 L (132-148) mmol/L Potassium 4.8 (3.6-5.2) mmol/L Chloride 96 L (98-107) mmol/L Carbon Dioxide 26 (22-30) mmol/L Anion Gap 14 (10-20) BUN 56 H (9-20) mg/dL Creatinine 6.5 H (0.8-1.5) mg/dL Est GFR ( Amer) 10 Est GFR (Non-Af Amer) 8 Random Glucose 99 (75-110) mg/dL Calcium 7.3 L (8.6-10.4) mg/dl Phosphorus 5.0 H (2.5-4.5) mg/dL Magnesium 1.8 (1.6-2.3) mg/dL Total Bilirubin 0.5 (0.2-1.3) mg/dL AST 47 (17-59) U/L ALT 64 (21-72) U/L Alkaline Phosphatase 144 H (38-126) U/L Total Protein 7.4 (6.3-8.3) g/dL Albumin 3.3 L (3.5-5.0) g/dL Globulin 4.1 H (2.2-3.9) gm/dL Albumin/Globulin Ratio 0.8 L (1.0-2.1) Laboratory Results - last 24 hr 10/23/17 10/23/17 06:10 06:11 WBC 5.2 RBC 3.01 L Hgb 9.6 L Hct 29.4 L MCV 97.5 H MCH 31.7 H MCHC 32.5 L RDW 20.3 H Plt Count 133 MPV 9.9 Neut % (Auto) 75.2 H Lymph % (Auto) 13.2 L [place] % (Auto) 10.1 H Eos % (Auto) 0.7 Baso % (Auto) 0.8 Neut # 3.9 Lymph # 0.7 L [place] # 0.5 Eos # 0.0 Baso # 0.0 Sodium 131 L Potassium 4.8 Chloride 96 L Carbon Dioxide 26 Anion Gap 14 BUN 56 H Creatinine 6.5 H Est GFR ( Amer) 10 Est GFR (Non-Af Amer) 8 Random Glucose 99 Calcium 7.3 L Phosphorus 5.0 H Magnesium 1.8 Total Bilirubin 0.5 AST 47 ALT 64 Alkaline Phosphatase 144 H Total Protein 7.4 Albumin 3.3 L Globulin 4.1 H Albumin/Globulin Ratio 0.8 L Critical Care Progress Note - Nutrition Nutrition: Nutrition Category Date Time Status NPO Diet [DIET] Diets 10/23/17 Lunch Active Assessment/Plan - Assessment and Plan (Free Text) Assessment: 77M with PMHx of BPH, urinary retention, renal failure on dialysis, CHF, arrhythmia admitted 09/24 for urinary retention. Patient had symptomatic bradycardia, life vest was placed on patient, and patient was brought to ICU after 0.5mg IV Atropine, 5 minute wait, 0.5mg IV Atropine was pushed. Patient has a transcutaneous pacer placed 10/19, to have AICD by Dr. Wright today 2017 Neuro: 10/[address] No acute findings seen within the brain, allowing for motion artifact Cardio symptomatic bradycardia EF 20% 10/19 Transcutaneous pacer (Set at 60 with sensitivity of 4 and amp of 25 V), CXR confirmation Life vest consult: Dr. Wright for AICD Follow-up US dopplers of upper-extremities Amiodarone 400 mg PO BID [facility] Aspirin 81 mg PO Daily [facility] Crestor 10 mg PO HS [facility] Pulm: Monitor vitals 10/20 Chest XRAY Interval mild improvement in the lungs since the previous exam 10/19 Chest XRAY Appropriate position of the support devices. No significant interval change noted since the previous exam in the lungs. 10/02 Chest XRAY Interval insertion hemodialysis catheter. Bilateral pleural effusions - bilaterally slightly increased - up to each hemithoracic height. Bibasilar compressive atelectasis-inferred. Underlying infiltrates not excluded. Cardiomegaly. Pulmonary venous congestion-slightly increased. BPH Flomax 0.4mg POQD Renal Renal Failure Renal Diet Phoslo 667 mg PO TID [facility] Midodrine 5mg PO TID Procrit 10,000 u IV MWF Dialysis MWF s/p RIJ Permacath (10/04) and Left AVF (10/09) Vitamin B complex 1 tab PO QD Please see ID for details GI CMP ID: 10/19 Naris - MRSA not detected 10/09 Urine Cx Multiple species 10/02 Urine Cx Pseudomonas Aeruginosa 09/27 Urine Cx EColi, VRE 09/24 Urine Cx EColi, VRE IV Gentamicin, last dose 10/16/17 Prophylaxis: GI: Pepcid 20mg PO QD DVT: Heparin 5,000 units SC Q12 [facility], SCDs Discussed with Dr. Gordo Rivera DO PGY1 - Date & Time Date: 10/23/17 Time: 14:28 <Sukumar Caro - Last Filed: 10/23/17 18:24> CCU Objective - Vital Signs / Intake & Output Vital Signs (Last 4 hours): Vital Signs Temp Pulse Resp BP Pulse Ox 10/23/17 17:09 62 19 81/44 L 10/23/17 16:09 62 21 86/48 L 10/23/17 16:00 98.2 F 100 10/23/17 15:09 65 22 95/50 L Intake and Output (Last 8hrs): Intake & Output 10/23/17 10/23/17 10/23/17 06:59 14:59 22:59 Intake Total 420 0 Output Total 220 Balance 200 0 Weight 120 lb 8 oz Intake: Oral 420 0 Output: Urine 220 Urethral (Beck) 220 - Medications Active Medications: Active Medications Generic Name Dose Route Start Last Admin Trade Name Wanda PRN Reason Stop Dose Admin Amiodarone HCl 400 mg 09/28/17 18:00 10/23/17 09:17 Cordarone PO 400 mg BID [facility] Administration Aspirin 81 mg 10/21/17 10:00 10/23/17 09:17 Aspirin Chewable PO 81 mg DAILY [facility] Administration Calcium Acetate 667 mg 10/22/17 14:00 10/23/17 13:56 Phoslo PO 667 mg TID [facility] Administration Epoetin Pepe 10,000 unit 10/22/17 14:30 10/22/17 14:30 Procrit IV 10,000 unit MWF [facility] Administration Famotidine 20 mg 09/26/17 10:00 10/23/17 09:18 Pepcid PO 20 mg DAILY [facility] Administration Heparin Sodium (Porcine) 5,000 units 10/20/17 22:00 10/23/17 09:18 Heparin SC 5,000 units Q12 [facility] Administration Heparin Sodium/Sodium Chloride 25,000 units in 250 mls @ 9.838 mls/hr 16:05 Heparin 16948 Units/250ml 1/2 Normal Saline IV .Q24H PRN PROTOCOL Protocol 18 U/KG/HR Midodrine 5 mg 10/18/17 10:32 10/23/17 13:56 Proamatine PO 5 mg TID [facility] Administration Rosuvastatin Calcium 10 mg 10/19/17 22:00 10/22/17 21:54 Crestor PO 10 mg HS [facility] Administration Tamsulosin HCl 0.4 mg 10/12/17 10:00 10/23/17 09:18 Flomax PO 0.4 mg DAILY [facility] Administration Vitamin B Complex/Vit C/Folic Acid 1 tab 10/12/17 10:00 10/23/17 09:17 Nephro-Aleksandra PO 1 tab DAILY [facility] Administration - Patient Studies Lab Studies: Lab Studies 10/23/17 10/23/17 Range/Units 06:11 06:10 WBC 5.2 (4.8-10.8) K/uL RBC 3.01 L (4.40-5.90) Mil/uL Hgb 9.6 L (12.0-18.0) g/dL Hct 29.4 L (35.0-51.0) % MCV 97.5 H (80.0-94.0) fL MCH 31.7 H (27.0-31.0) pg MCHC 32.5 L (33.0-37.0) g/dL RDW 20.3 H (11.5-14.5) % Plt Count 133 (130-400) K/uL MPV 9.9 (7.2-11.7) fL Neut % (Auto) 75.2 H (50.0-75.0) % Lymph % (Auto) 13.2 L (20.0-40.0) % [place] % (Auto) 10.1 H (0.0-10.0) % Eos % (Auto) 0.7 (0.0-4.0) % Baso % (Auto) 0.8 (0.0-2.0) % Neut # 3.9 (1.8-7.0) K/uL Lymph # 0.7 L (1.0-4.3) K/uL [place] # 0.5 (0.0-0.8) K/uL Eos # 0.0 (0.0-0.7) K/uL Baso # 0.0 (0.0-0.2) K/uL Sodium 131 L (132-148) mmol/L Potassium 4.8 (3.6-5.2) mmol/L Chloride 96 L (98-107) mmol/L Carbon Dioxide 26 (22-30) mmol/L Anion Gap 14 (10-20) BUN 56 H (9-20) mg/dL Creatinine 6.5 H (0.8-1.5) mg/dL Est GFR ( Amer) 10 Est GFR (Non-Af Amer) 8 Random Glucose 99 (75-110) mg/dL Calcium 7.3 L (8.6-10.4) mg/dl Phosphorus 5.0 H (2.5-4.5) mg/dL Magnesium 1.8 (1.6-2.3) mg/dL Total Bilirubin 0.5 (0.2-1.3) mg/dL AST 47 (17-59) U/L ALT 64 (21-72) U/L Alkaline Phosphatase 144 H (38-126) U/L Total Protein 7.4 (6.3-8.3) g/dL Albumin 3.3 L (3.5-5.0) g/dL Globulin 4.1 H (2.2-3.9) gm/dL Albumin/Globulin Ratio 0.8 L (1.0-2.1) Laboratory Results - last 24 hr 10/23/17 10/23/17 06:10 06:11 WBC 5.2 RBC 3.01 L Hgb 9.6 L Hct 29.4 L MCV 97.5 H MCH 31.7 H MCHC 32.5 L RDW 20.3 H Plt Count 133 MPV 9.9 Neut % (Auto) 75.2 H Lymph % (Auto) 13.2 L [place] % (Auto) 10.1 H Eos % (Auto) 0.7 Baso % (Auto) 0.8 Neut # 3.9 Lymph # 0.7 L [place] # 0.5 Eos # 0.0 Baso # 0.0 Sodium 131 L Potassium 4.8 Chloride 96 L Carbon Dioxide 26 Anion Gap 14 BUN 56 H Creatinine 6.5 H Est GFR ( Amer) 10 Est GFR (Non-Af Amer) 8 Random Glucose 99 Calcium 7.3 L Phosphorus 5.0 H Magnesium 1.8 Total Bilirubin 0.5 AST 47 ALT 64 Alkaline Phosphatase 144 H Total Protein 7.4 Albumin 3.3 L Globulin 4.1 H Albumin/Globulin Ratio 0.8 L Critical Care Progress Note - Nutrition Nutrition: Nutrition Category Date Time Status NPO Diet [DIET] Diets 10/23/17 Lunch Active NPO Diet [DIET] Diets 10/24/17 Dinner Active Assessment/Plan (1) Bradycardia Current Visit: Yes Status: Acute Comment: secondary to third-degree heart block, status post temporary pacemaker insertion Cardiology and EPS evaluation Patient refusing hemodialysis Follow-up lites Neurology evaluation Continue antibiotics for VRE Attending/Attestation - Attestation I have personally seen and examined this patient.: Yes I have fully participated in the care of the patient.: Yes I have reviewed all pertinent clinical information: Yes Notes (Text): 10/23/17 18:23 I have seen and examined the patient. Medical records, lab studies, and imaging were reviewed by me and a management plan was formulated on multidisciplinary rounds with resident Dr. Rivera. I agree with their documented assessment and plan. Patient to get AICD placement tomorrow. Left UE DVT, starting on heparin gtt, will need 3 months of treatment with oral a/c in addition to ASA/Plavix. Critical Care Time 35 minutes. Multi-disciplinary rounds were performed with house staff, nursing, speech therapy, respiratory therapy, pharmacy and nutrition with integrated input from the primary team/attending and other consulting services. The documented time is cumulative and includes review of patient data/exams/labs/chart review and examination of the patient on rounds and throughout the day; time is exclusive of any procedures or teaching time.
--- NOTE | 2017-10-23 15:50 | VASCLAB ---
PROCEDURE: Upper Extremity Venous Duplex Exam HISTORY: prior to AICD placement PRIORS: None. TECHNIQUE: Bilateral upper extremity, internal jugular, subclavian, axillary, brachial, ulnar, radial, basilic and upper cephalic veins were evaluated. Flow was assessed with color Doppler, compressibility, assessment of phasic flow and augmentation response. Report prepared by RANDI Gibson, RVT FINDINGS: RIGHT: 1. Internal Jugular: 1.1. Compressibility - Fully compressible: Thrombus - None : Flow - Phasic: Augmentation -Normal: Reflux - None. 2. Subclavian: 2.1. Compressibility - : Thrombus - : Flow - : Augmentation -: Reflux - . 3. Axillary: 3.1. Compressibility - Fully compressible: Thrombus - None : Flow - Phasic: Augmentation -Normal: Reflux - None. 4. Brachial: 4.1. Compressibility - Fully compressible: Thrombus - None: Flow - Phasic: Augmentation -Normal: Reflux - None. 5. Ulnar: 5.1. Compressibility - Fully compressible: Thrombus - None: Flow - Phasic: Augmentation -Normal: Reflux - None. 6. Radial: 6.1. Compressibility - Fully compressible: Thrombus - None: Flow - Phasic: Augmentation - Normal: Reflux - None. 7. Cephalic: 7.1. Compressibility - Fully compressible: Thrombus - None: Flow - Phasic: Augmentation -Normal: Reflux - None. 8. Basilic: 8.1. Compressibility - Fully compressible: Thrombus - None: Flow - Phasic: Augmentation -Normal: Reflux - None. LEFT: 1. Internal Jugular: 1.1. Compressibility - : Thrombus - : Flow - : Augmentation -: Reflux - . 2. Subclavian: 2.1. Compressibility - Fully compressible: Thrombus - None : Flow - Phasic: Augmentation -Normal: Reflux - None. 3. Axillary: 3.1. Compressibility - Fully compressible: Thrombus - None : Flow - Phasic: Augmentation -Normal: Reflux - None. 4. Brachial: 4.1. Compressibility - Fully compressible: Thrombus - None: Flow - Phasic: Augmentation -Normal: Reflux - None. 5. Ulnar: 5.1. Compressibility - Fully compressible: Thrombus - None: Flow - Phasic: Augmentation -Normal: Reflux - None. 6. Radial: 6.1. Compressibility - Fully compressible: Thrombus - None: Flow - Phasic: Augmentation - Normal: Reflux - None. 7. Cephalic: 7.1. Compressibility - Partial: Thrombus - Acute: Flow - Reduced : Augmentation -None: Reflux - None. 8. Basilic: 8.1. Compressibility - Fully compressible: Thrombus - None: Flow - Phasic: Augmentation -Normal: Reflux - None. OTHER FINDINGS: Right: Unable to image the right subclavian vein due to catheter in the chest. Left: Unable to image the left jugular vein due to catheter in the neck. POLI Sparks notified about the findings. IMPRESSION: Right: No evidence of vein thrombosis of the right upper extremity with excellent venous flow. Normal valve function noted of the right side. Left: Superficial thrombophlebitis of the left mid upper arm cephalic vein with severe reduction of the venous return. No evidence of deep vein thrombosis of the left upper extremity with excellent venous flow. Normal valve function noted of the left side.
[2017-10-23] MEDS ORDERED: Heparin25000 units/250ml 1/2NS 25,000 UNITS/250 ML BAG IV PRN (16:05)
--- NOTE | 2017-10-23 17:37 | CP.PCM.PN ---
Subjective - Date & Time of Evaluation Date of Evaluation: 10/23/17 Time of Evaluation: 17:34 - Subjective Subjective: seen and examined. pt very anxious about hd treatment affecting his heart wants to cut back to twice daily hd denies any dizziness chest pain palpitations sob nausea vomiting rash fevers chills at this time Objective - Vital Signs/Intake and Output Vital Signs (last 24 hours): Temp Pulse Resp BP Pulse Ox 98.2 F 65 22 95/50 L 100 10/23/17 12:00 10/23/17 15:09 10/23/17 15:09 10/23/17 15:09 10/23/17 12:00 Intake and Output: 10/23/17 10/23/17 06:59 18:59 Intake Total 420 Output Total 220 Balance 200 - Medications Medications: Current Medications Amiodarone HCl (Cordarone) 400 mg PO BID [facility] Last Admin: 10/23/17 09:17 Dose: 400 mg Aspirin (Aspirin Chewable) 81 mg PO DAILY [facility] Last Admin: 10/23/17 09:17 Dose: 81 mg Calcium Acetate (Phoslo) 667 mg PO TID [facility] Last Admin: 10/23/17 13:56 Dose: 667 mg Epoetin Pepe (Procrit) 10,000 unit IV MWF [facility] Last Admin: 10/22/17 14:30 Dose: 10,000 unit Famotidine (Pepcid) 20 mg PO DAILY [facility] Last Admin: 10/23/17 09:18 Dose: 20 mg Heparin Sodium (Porcine) (Heparin) 5,000 units SC Q12 [facility] Last Admin: 10/23/17 09:18 Dose: 5,000 units Heparin Sodium/Sodium Chloride (Heparin 83826 Units/250ml 1/2 Normal Saline) 25 ,000 units in 250 mls @ 9.838 mls/hr IV .Q24H PRN; Protocol; 18 U/KG/HR PRN Reason: PROTOCOL Midodrine (Proamatine) 5 mg PO TID [facility] Last Admin: 10/23/17 13:56 Dose: 5 mg Rosuvastatin Calcium (Crestor) 10 mg PO HS [facility] Last Admin: 10/22/17 21:54 Dose: 10 mg Tamsulosin HCl (Flomax) 0.4 mg PO DAILY [facility] Last Admin: 10/23/17 09:18 Dose: 0.4 mg Vitamin B Complex/Vit C/Folic Acid (Nephro-Aleksandra) 1 tab PO DAILY [facility] Last Admin: 10/23/17 09:17 Dose: 1 tab - Labs Labs: 10/23/17 06:10 10/23/17 06:11 PT 13.4 SECONDS (9.7-12.2) H 10/07/17 07:57 INR 1.2 10/07/17 07:57 APTT 36 SECONDS (21-34) H 10/07/17 07:57 - Constitutional Appears: No Acute Distress, Cachectic, Chronically Ill - Head Exam Head Exam: NORMAL INSPECTION - Eye Exam Eye Exam: Normal appearance Pupil Exam: PERRL - ENT Exam ENT Exam: Mucous Membranes Moist, Normal Exam - Neck Exam Neck Exam: Full ROM, Normal Inspection Additional comments: rt permcath - Respiratory Exam Respiratory Exam: Clear to Ausculation Bilateral, NORMAL BREATHING PATTERN - Cardiovascular Exam Cardiovascular Exam: REGULAR RHYTHM (transvenous pacer left. ) - Extremities Exam Extremities Exam: Normal Inspection (lue avf) - Neurological Exam Neurological Exam: Alert, Awake, Oriented x3 - Psychiatric Exam Psychiatric exam: Anxious, Normal Affect, Normal Mood - Skin Skin Exam: Dry, Intact Assessment and Plan (1) Acute urinary retention Status: Acute (2) Renal failure, acute on chronic Status: Acute (3) Cardiomyopathy Status: Acute (4) Urinary retention due to benign prostatic hyperplasia Status: Acute (5) Bradycardia Status: Acute - Assessment and Plan (Free Text) Assessment: hd tomorrow, minimal uf. attempt to keep K>4, mag>2 maintain midodrine cardiology management
--- NOTE | 2017-10-23 22:09 | CP.PCM.PN ---
Subjective - Date & Time of Evaluation Date of Evaluation: 10/23/17 Time of Evaluation: 22:09 - Subjective Subjective: afebrile, BP 90S HEART RHYTHM PACED OFFERS NO COMPLAINTS. Status post transvenous pacemaker insertion 10/19/30. LABS/RADIOLOGY left DVT of upper extremity Objective - Vital Signs/Intake and Output Vital Signs (last 24 hours): Temp Pulse Resp BP Pulse Ox 98.4 F 64 19 91/47 L 100 10/23/17 20:00 10/23/17 21:09 10/23/17 21:09 10/23/17 21:09 10/23/17 20:00 Intake and Output: 10/23/17 10/24/17 18:59 06:59 Intake Total 420 Output Total 220 Balance 200 - Medications Medications: Current Medications Amiodarone HCl (Cordarone) 400 mg PO BID [facility] Last Admin: 10/23/17 19:13 Dose: 400 mg Aspirin (Aspirin Chewable) 81 mg PO DAILY [facility] Last Admin: 10/23/17 09:17 Dose: 81 mg Calcium Acetate (Phoslo) 667 mg PO TID [facility] Last Admin: 10/23/17 19:13 Dose: 667 mg Epoetin Pepe (Procrit) 10,000 unit IV MWF [facility] Last Admin: 10/22/17 14:30 Dose: 10,000 unit Famotidine (Pepcid) 20 mg PO DAILY [facility] Last Admin: 10/23/17 09:18 Dose: 20 mg Heparin Sodium/Sodium Chloride (Heparin 12853 Units/250ml 1/2 Normal Saline) 25 ,000 units in 250 mls @ 9.838 mls/hr IV .Q24H PRN; Protocol; 18 U/KG/HR PRN Reason: PROTOCOL Last Admin: 10/23/17 16:30 Dose: 18 u/kg/hr, 9.838 mls/hr Midodrine (Proamatine) 5 mg PO TID [facility] Last Admin: 10/23/17 19:14 Dose: 5 mg Rosuvastatin Calcium (Crestor) 10 mg PO HS [facility] Last Admin: 10/23/17 21:47 Dose: 10 mg Tamsulosin HCl (Flomax) 0.4 mg PO DAILY [facility] Last Admin: 10/23/17 09:18 Dose: 0.4 mg Vitamin B Complex/Vit C/Folic Acid (Nephro-Aleksandra) 1 tab PO DAILY [facility] Last Admin: 10/23/17 09:17 Dose: 1 tab - Labs Labs: 10/23/17 06:10 10/23/17 06:11 PT 13.4 SECONDS (9.7-12.2) H 10/07/17 07:57 INR 1.2 10/07/17 07:57 APTT 36 SECONDS (21-34) H 10/07/17 07:57 - Constitutional Appears: No Acute Distress, Cachectic, Chronically Ill - Eye Exam Eye Exam: EOMI, PERRL - ENT Exam ENT Exam: Normal Oropharynx - Neck Exam Neck Exam: Normal Inspection - Respiratory Exam Respiratory Exam: Rales (FEW BASILAR RALES) - Cardiovascular Exam Cardiovascular Exam: REGULAR RHYTHM, +S1, +S2 - GI/Abdominal Exam GI & Abdominal Exam: Soft, Normal Bowel Sounds - Extremities Exam Extremities Exam: absent: Calf Tenderness, Pedal Edema, Tenderness - Neurological Exam Neurological Exam: Awake, CN II-XII Intact, Oriented x3 - Skin Skin Exam: Normal Color, Warm Assessment and Plan (1) Bradycardia Assessment & Plan: S/P LEFT IJ TRANSVENOUS PACEMAKER IN PLACE. PATIENT WITH PACED RHYTHM Status: Acute (2) UTI (urinary tract infection) Assessment & Plan: S/P UTI. OFF ABX. 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
[2017-10-24] MEDS ORDERED: Heparin25000 units/250ml 1/2NS 25,000 UNITS/250 ML BAG IV PRN (01:00)
[2017-10-24 06:29] LABS: BASO % 0.8 % (0.0-2.0); EOS # 0.1 K/uL (0.0-0.7); EOS % 1.2 % (0.0-4.0); HEMOGLOBIN 9.8 g/dL (12.0-18.0); LYMPH # 0.8 K/uL (1.0-4.3); LYMPH % 18.9 % (20.0-40.0); MEAN CORPUSCULAR HEMOGLOBIN 31.7 pg (27.0-31.0); MEAN CORPUSCULAR HGB CONC 32.4 g/dL (33.0-37.0); MEAN PLATELET VOLUME 9.6 fL (7.2-11.7); MONO # 0.5 K/uL (0.0-0.8); MONO % 10.5 % (0.0-10.0); NEUT % 68.6 % (50.0-75.0); NRBC % 0.1 % (0.0-2.0); RBC 3.08 Mil/uL (4.40-5.90); RED CELL DISTRIBUTION WIDTH 20.3 % (11.5-14.5); WHITE BLOOD COUNT 4.3 K/uL (4.8-10.8)
[2017-10-24 06:42] LABS: ALB/GLOB RATIO 0.8 (1.0-2.1); ALBUMIN 3.3 g/dL (3.5-5.0); CALCIUM 7.7 mg/dl (8.6-10.4); INR 1.2; MAGNESIUM 1.8 mg/dL (1.6-2.3); PROTHROMBIN TIME 13.9 SECONDS (9.7-12.2)
--- NOTE | 2017-10-24 08:11 | CP.CCUPN ---
<Karina Rivera - Last Filed: 10/24/17 13:55> CCU Subjective - Physician Review Subjective (Free Text): Progress Note for Dr. Krueger Patient seen and examined at bedside. Patient to be transferred once insurance clears [place] [facility] [place]. Dr. Wright may do AICD in OR at . Will update with new information. Patient denies chest pain, shortness of breath. Transvenous pacer needed to be readjusted. HR was seen to be in 30s. Adjusted to 60s. Patient aware that he is not to be transferred today [place] [facility] Critical Care Time Spent (in minutes): 35 CCU Objective - Vital Signs / Intake & Output Vital Signs (Last 4 hours): Vital Signs Pulse Resp BP 10/24/17 07:09 32 L 19 100/40 L 10/24/17 07:00 35 L 21 10/24/17 06:09 62 17 99/45 L 10/24/17 06:00 58 L 17 10/24/17 05:09 32 L 98/39 L 10/24/17 05:00 21 Intake and Output (Last 8hrs): Intake & Output 10/23/17 10/24/17 10/24/17 22:59 06:59 14:59 Intake Total 0 30 Balance 0 30 Weight 122 lb Intake: IV 30 Oral 0 - Physical Exam Head: Positive for: Atraumatic, Normocephalic Conjunctiva: Positive for: Normal Mouth: Positive for: Moist Mucous Membranes Neck: Positive for: Normal Range of Motion, Other (temporary transvenous pacer) Respiratory/Chest: Positive for: Clear to Auscultation Cardiovascular: Positive for: Regular Rate and Rhythm Abdomen: Positive for: Normal Bowel Sounds Upper Extremity: Positive for: Normal Inspection Lower Extremity: Positive for: Normal Inspection - Medications Active Medications: Active Medications Generic Name Dose Route Start Last Admin Trade Name Freq PRN Reason Stop Dose Admin Amiodarone HCl 400 mg 09/28/17 18:00 10/23/17 19:13 Cordarone PO 400 mg BID [facility] Administration Aspirin 81 mg 10/21/17 10:00 10/23/17 09:17 Aspirin Chewable PO 81 mg DAILY [facility] Administration Calcium Acetate 667 mg 10/22/17 14:00 10/23/17 19:13 Phoslo PO 667 mg TID [facility] Administration Epoetin Pepe 10,000 unit 10/22/17 14:30 10/22/17 14:30 Procrit IV 10,000 unit MWF [facility] Administration Famotidine 20 mg 09/26/17 10:00 10/23/17 09:18 Pepcid PO 20 mg DAILY [facility] Administration Heparin Sodium/Sodium Chloride 25,000 units in 250 mls @ 8.199 mls/hr 01:00 10/24/17 00:50 Heparin 86092 Units/250ml 1/2 Normal Saline IV 15 u/kg/hr .Q24H PRN 8.199 mls/hr PROTOCOL Administration Protocol 15 U/KG/HR Magnesium Sulfate/Dextrose 1 gm in 100 mls @ 100 mls/hr 10/24/17 09:00 Magnesium Sulfate 1 Gm/100 Ml D5w IVPB 10/24/17 09:59 ONCE ONE Midodrine 5 mg 10/18/17 10:32 10/23/17 19:14 Proamatine PO 5 mg TID [facility] Administration Rosuvastatin Calcium 10 mg 10/19/17 22:00 10/23/17 21:47 Crestor PO 10 mg HS [facility] Administration Tamsulosin HCl 0.4 mg 10/12/17 10:00 10/23/17 09:18 Flomax PO 0.4 mg DAILY [facility] Administration Vitamin B Complex/Vit C/Folic Acid 1 tab 10/12/17 10:00 10/23/17 09:17 Nephro-Aleksandra PO 1 tab DAILY [facility] Administration - Patient Studies Lab Studies: Lab Studies 10/24/17 10/24/17 10/24/17 Range/Units 06:20 06:20 06:20 WBC 4.3 L (4.8-10.8) K/uL RBC 3.08 L (4.40-5.90) Mil/uL Hgb 9.8 L (12.0-18.0) g/dL Hct 30.2 L (35.0-51.0) % MCV 98.0 H (80.0-94.0) fL MCH 31.7 H (27.0-31.0) pg MCHC 32.4 L (33.0-37.0) g/dL RDW 20.3 H (11.5-14.5) % Plt Count 139 (130-400) K/uL MPV 9.6 (7.2-11.7) fL Neut % (Auto) 68.6 (50.0-75.0) % Lymph % (Auto) 18.9 L (20.0-40.0) % [place]berson % (Auto) 10.5 H (0.0-10.0) % Eos % (Auto) 1.2 (0.0-4.0) % Baso % (Auto) 0.8 (0.0-2.0) % Neut # 3.0 (1.8-7.0) K/uL Lymph # 0.8 L (1.0-4.3) K/uL [place]berson # 0.5 (0.0-0.8) K/uL Eos # 0.1 (0.0-0.7) K/uL Baso # 0.0 (0.0-0.2) K/uL PT 13.9 H (9.7-12.2) SECONDS INR 1.2 APTT 57 H D (21-34) SECONDS Sodium 134 (132-148) mmol/L Potassium 5.2 (3.6-5.2) mmol/L Chloride 97 L (98-107) mmol/L Carbon Dioxide 23 (22-30) mmol/L Anion Gap 19 (10-20) BUN 74 H (9-20) mg/dL Creatinine 8.4 H* D (0.8-1.5) mg/dL Est GFR ( Amer) 8 Est GFR (Non-Af Amer) 6 Random Glucose 93 (75-110) mg/dL Calcium 7.7 L (8.6-10.4) mg/dl Phosphorus 6.4 H (2.5-4.5) mg/dL Magnesium 1.8 (1.6-2.3) mg/dL Total Bilirubin 0.4 (0.2-1.3) mg/dL AST 33 (17-59) U/L ALT 59 (21-72) U/L Alkaline Phosphatase 141 H (38-126) U/L Total Protein 7.4 (6.3-8.3) g/dL Albumin 3.3 L (3.5-5.0) g/dL Globulin 4.1 H (2.2-3.9) gm/dL Albumin/Globulin Ratio 0.8 L (1.0-2.1) 01/02/18 Range/Units 23:00 WBC (4.8-10.8) K/uL RBC (4.40-5.90) Mil/uL Hgb (12.0-18.0) g/dL Hct (35.0-51.0) % MCV (80.0-94.0) fL MCH (27.0-31.0) pg MCHC (33.0-37.0) g/dL RDW (11.5-14.5) % Plt Count (130-400) K/uL MPV (7.2-11.7) fL Neut % (Auto) (50.0-75.0) % Lymph % (Auto) (20.0-40.0) % Culberson % (Auto) (0.0-10.0) % Eos % (Auto) (0.0-4.0) % Baso % (Auto) (0.0-2.0) % Neut # (1.8-7.0) K/uL Lymph # (1.0-4.3) K/uL Culberson # (0.0-0.8) K/uL Eos # (0.0-0.7) K/uL Baso # (0.0-0.2) K/uL PT (9.7-12.2) SECONDS INR APTT 120 H* (21-34) SECONDS Sodium (132-148) mmol/L Potassium (3.6-5.2) mmol/L Chloride (98-107) mmol/L Carbon Dioxide (22-30) mmol/L Anion Gap (10-20) BUN (9-20) mg/dL Creatinine (0.8-1.5) mg/dL Est GFR ( Amer) Est GFR (Non-Af Amer) Random Glucose (75-110) mg/dL Calcium (8.6-10.4) mg/dl Phosphorus (2.5-4.5) mg/dL Magnesium (1.6-2.3) mg/dL Total Bilirubin (0.2-1.3) mg/dL AST (17-59) U/L ALT (21-72) U/L Alkaline Phosphatase (38-126) U/L Total Protein (6.3-8.3) g/dL Albumin (3.5-5.0) g/dL Globulin (2.2-3.9) gm/dL Albumin/Globulin Ratio (1.0-2.1) Laboratory Results - last 24 hr 10/23/17 10/24/17 10/24/17 23:00 06:20 06:20 WBC 4.3 L RBC 3.08 L Hgb 9.8 L Hct 30.2 L MCV 98.0 H MCH 31.7 H MCHC 32.4 L RDW 20.3 H Plt Count 139 MPV 9.6 Neut % (Auto) 68.6 Lymph % (Auto) 18.9 L Culberson % (Auto) 10.5 H Eos % (Auto) 1.2 Baso % (Auto) 0.8 Neut # 3.0 Lymph # 0.8 L Culberson # 0.5 Eos # 0.1 Baso # 0.0 PT 13.9 H INR 1.2 APTT 120 H* 57 H D Sodium Potassium Chloride Carbon Dioxide Anion Gap BUN Creatinine Est GFR ( Amer) Est GFR (Non-Af Amer) Random Glucose Calcium Phosphorus Magnesium Total Bilirubin AST ALT Alkaline Phosphatase Total Protein Albumin Globulin Albumin/Globulin Ratio 10/24/17 06:20 WBC RBC Hgb Hct MCV MCH MCHC RDW Plt Count MPV Neut % (Auto) Lymph % (Auto) Culberson % (Auto) Eos % (Auto) Baso % (Auto) Neut # Lymph # Culberson # Eos # Baso # PT INR APTT Sodium 134 Potassium 5.2 Chloride 97 L Carbon Dioxide 23 Anion Gap 19 BUN 74 H Creatinine 8.4 H* D Est GFR ( Amer) 8 Est GFR (Non-Af Amer) 6 Random Glucose 93 Calcium 7.7 L Phosphorus 6.4 H Magnesium 1.8 Total Bilirubin 0.4 AST 33 ALT 59 Alkaline Phosphatase 141 H Total Protein 7.4 Albumin 3.3 L Globulin 4.1 H Albumin/Globulin Ratio 0.8 L Critical Care Progress Note - Nutrition Nutrition: Nutrition Category Date Time Status NPO Diet [DIET] Diets 10/23/17 Lunch Active NPO Diet [DIET] Diets 10/24/17 Dinner Active Assessment/Plan - Assessment and Plan (Free Text) Assessment: 77M with PMHx of BPH, urinary retention, renal failure on dialysis, CHF, arrhythmia admitted 09/24 for urinary retention. Patient had symptomatic bradycardia, life vest was placed on patient, and patient was brought to ICU after 0.5mg IV Atropine, 5 minute wait, 0.5mg IV Atropine was pushed. Patient has a transvenous pacer placed 10/19, to have AICD by Dr. Wright. Neuro: 10/[address] No acute findings seen within the brain, allowing for motion artifact Cardio symptomatic bradycardia EF 20% 10/19 Transvenous pacer (Set at 60 with sensitivity of 4 and amp of 25 V), CXR confirmation Life vest consult: Dr. Wright for AICD 10/23 Upper-extremity Dopplers: L - superficial thrombophlebitis of the left mid upper arm cephalic vein with severe reduction of the venous return R - No evidence of DVT of the left upper extremity with excellent venous flow. Normal valve function noted of the left side 10/23 Transvenous pacer not capturing. Advanced until HR of 60. Currently awaiting authorization for ICD, follow-up with case-manager development ([place]), possibly Sunday. Amiodarone 400 mg PO BID [facility] Aspirin 81 mg PO Daily [facility] Crestor 10 mg PO HS [facility] Heparin 25,000 units in 250 mls @8.199 mls/hr IV Q24H PRN Pulm: Monitor vitals 10/20 Chest XRAY Interval mild improvement in the lungs since the previous exam 10/19 Chest XRAY Appropriate position of the support devices. No significant interval change noted since the previous exam in the lungs. 10/02 Chest XRAY Interval insertion hemodialysis catheter. Bilateral pleural effusions - bilaterally slightly increased - up to each hemithoracic height. Bibasilar compressive atelectasis-inferred. Underlying infiltrates not excluded. Cardiomegaly. Pulmonary venous congestion-slightly increased. BPH Flomax 0.4mg POQD Renal Renal Failure Renal Diet Phoslo 667 mg PO TID [facility] Midodrine 5mg PO TID [facility] 10,000 u IV MWF Dialysis MWF s/p RIJ Permacath (10/04) and Left AVF (10/09) Vitamin B complex 1 tab PO QD As per Dr. Adair, keep K > 4, Mag > 2 Please see ID for details GI CMP ID: 10/[id number] Naris - MRSA not detected 10/09 Urine Cx Multiple species 10/02 Urine Cx Pseudomonas Aeruginosa 09/27 Urine Cx EColi, VRE 09/24 Urine Cx EColi, VRE IV Gentamicin, last dose 10/16/17 Prophylaxis: GI: Pepcid 20mg PO QD DVT: SCDs Discussed with Dr. Evans Rivera DO PGY1 - Date & Time Date: 10/24/17 Time: 14:00 <Manjit Krueger - Last Filed: 10/24/17 16:42> CCU Objective - Vital Signs / Intake & Output Vital Signs (Last 4 hours): Vital Signs Temp Pulse Resp BP BP 10/24/17 16:30 129/67 10/24/17 16:00 130/69 10/24/17 15:30 128/66 10/24/17 15:15 121/64 10/24/17 15:00 117/68 10/24/17 14:45 115/67 10/24/17 14:30 119/54 L 10/24/17 14:20 97.6 F 62 24 113/60 Intake and Output (Last 8hrs): Intake & Output 10/24/17 10/24/17 10/24/17 06:59 14:59 22:59 Intake Total 30 Balance 30 Weight 122 lb Intake: IV 30 - Medications Active Medications: Active Medications Generic Name Dose Route Start Last Admin Trade Name Freq PRN Reason Stop Dose Admin Amiodarone HCl 400 mg 09/28/17 18:00 10/24/17 10:40 Cordarone PO Not Given BID [facility] Aspirin 81 mg 10/21/17 10:00 10/24/17 10:54 Aspirin Chewable PO Not Given DAILY [facility] Calcium Acetate 667 mg 10/22/17 14:00 10/24/17 14:00 Phoslo PO Not Given TID [facility] Epoetin Pepe 10,000 unit 10/22/17 14:30 10/22/17 14:30 Procrit IV 10,000 unit MWF [facility] Administration Famotidine 20 mg 09/26/17 10:00 10/24/17 10:57 Pepcid PO Not Given DAILY [facility] Heparin Sodium/Sodium Chloride 25,000 units in 250 mls @ 8.199 mls/hr 01:00 10/24/17 00:50 Heparin 08828 Units/250ml 1/2 Normal Saline IV 15 u/kg/hr .Q24H PRN 8.199 mls/hr PROTOCOL Administration Protocol 15 U/KG/HR Midodrine 5 mg 10/18/17 10:32 10/24/17 15:16 Proamatine PO Not Given TID [facility] Rosuvastatin Calcium 10 mg 10/19/17 22:00 10/23/17 21:47 Crestor PO 10 mg HS [facility] Administration Tamsulosin HCl 0.4 mg 10/12/17 10:00 10/24/17 10:55 Flomax PO Not Given DAILY [facility] Vitamin B Complex/Vit C/Folic Acid 1 tab 10/12/17 10:00 10/24/17 10:56 Nephro-Aleksandra PO Not Given DAILY [facility] - Patient Studies Lab Studies: Lab Studies 10/24/17 10/24/17 10/24/17 Range/Units 06:20 06:20 06:20 WBC 4.3 L (4.8-10.8) K/uL RBC 3.08 L (4.40-5.90) Mil/uL Hgb 9.8 L (12.0-18.0) g/dL Hct 30.2 L (35.0-51.0) % MCV 98.0 H (80.0-94.0) fL MCH 31.7 H (27.0-31.0) pg MCHC 32.4 L (33.0-37.0) g/dL RDW 20.3 H (11.5-14.5) % Plt Count 139 (130-400) K/uL MPV 9.6 (7.2-11.7) fL Neut % (Auto) 68.6 (50.0-75.0) % Lymph % (Auto) 18.9 L (20.0-40.0) % [place] % (Auto) 10.5 H (0.0-10.0) % Eos % (Auto) 1.2 (0.0-4.0) % Baso % (Auto) 0.8 (0.0-2.0) % Neut # 3.0 (1.8-7.0) K/uL Lymph # 0.8 L (1.0-4.3) K/uL [place]on # 0.5 (0.0-0.8) K/uL Eos # 0.1 (0.0-0.7) K/uL Baso # 0.0 (0.0-0.2) K/uL PT 13.9 H (9.7-12.2) SECONDS INR 1.2 APTT 57 H D (21-34) SECONDS Sodium 134 (132-148) mmol/L Potassium 5.2 (3.6-5.2) mmol/L Chloride 97 L (98-107) mmol/L Carbon Dioxide 23 (22-30) mmol/L Anion Gap 19 (10-20) BUN 74 H (9-20) mg/dL Creatinine 8.4 H* D (0.8-1.5) mg/dL Est GFR ( Amer) 8 Est GFR (Non-Af Amer) 6 Random Glucose 93 (75-110) mg/dL Calcium 7.7 L (8.6-10.4) mg/dl Phosphorus 6.4 H (2.5-4.5) mg/dL Magnesium 1.8 (1.6-2.3) mg/dL Total Bilirubin 0.4 (0.2-1.3) mg/dL AST 33 (17-59) U/L ALT 59 (21-72) U/L Alkaline Phosphatase 141 H (38-126) U/L Total Protein 7.4 (6.3-8.3) g/dL Albumin 3.3 L (3.5-5.0) g/dL Globulin 4.1 H (2.2-3.9) gm/dL Albumin/Globulin Ratio 0.8 L (1.0-2.1) 10/23/17 Range/Units 23:00 WBC (4.8-10.8) K/uL RBC (4.40-5.90) Mil/uL Hgb (12.0-18.0) g/dL Hct (35.0-51.0) % MCV (80.0-94.0) fL MCH (27.0-31.0) pg MCHC (33.0-37.0) g/dL RDW (11.5-14.5) % Plt Count (130-400) K/uL MPV (7.2-11.7) fL Neut % (Auto) (50.0-75.0) % Lymph % (Auto) (20.0-40.0) % [place] % (Auto) (0.0-10.0) % Eos % (Auto) (0.0-4.0) % Baso % (Auto) (0.0-2.0) % Neut # (1.8-7.0) K/uL Lymph # (1.0-4.3) K/uL [place] # (0.0-0.8) K/uL Eos # (0.0-0.7) K/uL Baso # (0.0-0.2) K/uL PT (9.7-12.2) SECONDS INR APTT 120 H* (21-34) SECONDS Sodium (132-148) mmol/L Potassium (3.6-5.2) mmol/L Chloride (98-107) mmol/L Carbon Dioxide (22-30) mmol/L Anion Gap (10-20) BUN (9-20) mg/dL Creatinine (0.8-1.5) mg/dL Est GFR ( Amer) Est GFR (Non-Af Amer) Random Glucose (75-110) mg/dL Calcium (8.6-10.4) mg/dl Phosphorus (2.5-4.5) mg/dL Magnesium (1.6-2.3) mg/dL Total Bilirubin (0.2-1.3) mg/dL AST (17-59) U/L ALT (21-72) U/L Alkaline Phosphatase (38-126) U/L Total Protein (6.3-8.3) g/dL Albumin (3.5-5.0) g/dL Globulin (2.2-3.9) gm/dL Albumin/Globulin Ratio (1.0-2.1) Laboratory Results - last 24 hr 10/23/17 10/24/17 10/24/17 23:00 06:20 06:20 WBC 4.3 L RBC 3.08 L Hgb 9.8 L Hct 30.2 L MCV 98.0 H MCH 31.7 H MCHC 32.4 L RDW 20.3 H Plt Count 139 MPV 9.6 Neut % (Auto) 68.6 Lymph % (Auto) 18.9 L [place] % (Auto) 10.5 H Eos % (Auto) 1.2 Baso % (Auto) 0.8 Neut # 3.0 Lymph # 0.8 L [place] # 0.5 Eos # 0.1 Baso # 0.0 PT 13.9 H INR 1.2 APTT 120 H* 57 H D Sodium Potassium Chloride Carbon Dioxide Anion Gap BUN Creatinine Est GFR ( Amer) Est GFR (Non-Af Amer) Random Glucose Calcium Phosphorus Magnesium Total Bilirubin AST ALT Alkaline Phosphatase Total Protein Albumin Globulin Albumin/Globulin Ratio 10/24/17 06:20 WBC RBC Hgb Hct MCV MCH MCHC RDW Plt Count MPV Neut % (Auto) Lymph % (Auto) [place] % (Auto) Eos % (Auto) Baso % (Auto) Neut # Lymph # [place] # Eos # Baso # PT INR APTT Sodium 134 Potassium 5.2 Chloride 97 L Carbon Dioxide 23 Anion Gap 19 BUN 74 H Creatinine 8.4 H* D Est GFR ( Amer) 8 Est GFR (Non-Af Amer) 6 Random Glucose 93 Calcium 7.7 L Phosphorus 6.4 H Magnesium 1.8 Total Bilirubin 0.4 AST 33 ALT 59 Alkaline Phosphatase 141 H Total Protein 7.4 Albumin 3.3 L Globulin 4.1 H Albumin/Globulin Ratio 0.8 L Critical Care Progress Note - Nutrition Nutrition: Nutrition Category Date Time Status Heart Healthy Diet [DIET] Diets 10/24/17 Dinner Active Assessment/Plan (1) Bradycardia Current Visit: Yes Status: Acute Comment: secondary to third-degree heart block, status post temporary pacemaker insertion Cardiology and EPS evaluation Patient refusing hemodialysis Follow-up lites Neurology evaluation Continue antibiotics for VRE (2) ESRD (end stage renal disease) on dialysis Current Visit: Yes Status: Acute (3) VRE (vancomycin resistant enterococcus) culture positive Current Visit: Yes Status: Acute (4) Cardiomyopathy Current Visit: No Status: Acute Attending/Attestation - Attestation I have personally seen and examined this patient.: Yes I have fully participated in the care of the patient.: Yes I have reviewed all pertinent clinical information: Yes Notes (Text): 10/24/17 16:39 patient seen and examined in the intensive care unit. Case discussed with house staff in the morning. Transvenous pacemaker readjusted For AICD tomorrow Continue hemodialysis Continue antibiotics
[2017-10-24] MEDS ORDERED: Magnesium Sulfate 1 gm in D5W 1 GM/100 ML BAG IVPB ONE ×2 (09:00→11:00)
[2017-10-24] MEDS: Multivitamin Vitamin B Complex (Nephro-Vite) Tab PO SCH ×2 (10:42→10:56)
--- NOTE | 2017-10-24 14:07 | CP.PCM.PN ---
Subjective - Date & Time of Evaluation Date of Evaluation: 10/24/17 Time of Evaluation: 14:07 - Subjective Subjective: FOR AICD TODAY CLINICALLY SAME WILL NEED SHORT TERM PLACEMENT Objective - Vital Signs/Intake and Output Vital Signs (last 24 hours): Temp Pulse Resp BP Pulse Ox 98.3 F 32 L 19 100/40 L 100 10/24/17 04:00 10/24/17 07:09 10/24/17 07:09 10/24/17 07:09 10/24/17 04:00 - Medications Medications: Current Medications Amiodarone HCl (Cordarone) 400 mg PO BID COUNT INCLUDES [facility] Last Admin: 10/24/17 10:40 Dose: Not Given Aspirin (Aspirin Chewable) 81 mg PO DAILY COUNT INCLUDES [facility] Last Admin: 10/24/17 10:54 Dose: Not Given Calcium Acetate (Phoslo) 667 mg PO TID COUNT INCLUDES [facility] Last Admin: 10/24/17 10:57 Dose: Not Given Epoetin Pepe (Procrit) 10,000 unit IV MWF COUNT INCLUDES [facility] Last Admin: 10/22/17 14:30 Dose: 10,000 unit Famotidine (Pepcid) 20 mg PO DAILY COUNT [facility]CLUDES [facility] Last Admin: 10/24/17 10:57 Dose: Not Given Heparin Sodium/Sodium Chloride (Heparin 35076 Units/250ml 1/2 Normal Saline) 25 ,000 units in 250 mls @ 8.199 mls/hr IV .Q24H PRN; Protocol; 15 U/KG/HR PRN Reason: PROTOCOL Last Admin: 10/24/17 00:50 Dose: 15 u/kg/hr, 8.199 mls/hr Midodrine (Proamatine) 5 mg PO TID COUNT INCLUDES [facility] Last Admin: 10/24/17 10:57 Dose: Not Given Rosuvastatin Calcium (Crestor) 10 mg PO HS COUNT INCLUDES [facility] Last Admin: 10/23/17 21:47 Dose: 10 mg Tamsulosin HCl (Flomax) 0.4 mg PO DAILY COUNT [facility]CLUDES [facility] Last Admin: 10/24/17 10:55 Dose: Not Given Vitamin B Complex/Vit C/Folic Acid (Nephro-Aleksandra) 1 tab PO DAILY COUNT INCLUDES [facility] Last Admin: 10/24/17 10:56 Dose: Not Given - Labs Labs: 10/24/17 06:20 10/24/17 06:20 PT 13.9 SECONDS (9.7-12.2) H 10/24/17 06:20 INR 1.2 10/24/17 06:20 APTT 57 SECONDS (21-34) H D 10/24/17 06:20
--- NOTE | 2017-10-24 15:54 | CP.PCM.PN ---
Subjective - Date & Time of Evaluation Date of Evaluation: 10/24/17 Time of Evaluation: 15:00 - Subjective Subjective: on HD insists on no more then 1 kg uf for AICD no chest pain chronic sob Beck dependence no fever no rash no arthralgias no edema no headache Objective - Vital Signs/Intake and Output Vital Signs (last 24 hours): Temp Pulse Resp BP Pulse Ox 97.6 F 62 24 128/66 100 10/24/17 14:20 10/24/17 14:20 10/24/17 14:20 10/24/17 15:30 10/24/17 04:00 Intake and Output: 10/24/17 10/24/17 06:59 18:59 Intake Total 30 Balance 30 - Medications Medications: Current Medications Amiodarone HCl (Cordarone) 400 mg PO BID [facility] Last Admin: 10/24/17 10:40 Dose: Not Given Aspirin (Aspirin Chewable) 81 mg PO DAILY [facility] Last Admin: 10/24/17 10:54 Dose: Not Given Calcium Acetate (Phoslo) 667 mg PO TID [facility] Last Admin: 10/24/17 14:00 Dose: Not Given Epoetin Pepe (Procrit) 10,000 unit IV MWF [facility] Last Admin: 10/22/17 14:30 Dose: 10,000 unit Famotidine (Pepcid) 20 mg PO DAILY [facility] Last Admin: 10/24/17 10:57 Dose: Not Given Heparin Sodium/Sodium Chloride (Heparin 93956 Units/250ml 1/2 Normal Saline) 25 ,000 units in 250 mls @ 8.199 mls/hr IV .Q24H PRN; Protocol; 15 U/KG/HR PRN Reason: PROTOCOL Last Admin: 10/24/17 00:50 Dose: 15 u/kg/hr, 8.199 mls/hr Midodrine (Proamatine) 5 mg PO TID [facility] Last Admin: 10/24/17 15:16 Dose: Not Given Rosuvastatin Calcium (Crestor) 10 mg PO HS [facility] Last Admin: 10/23/17 21:47 Dose: 10 mg Tamsulosin HCl (Flomax) 0.4 mg PO DAILY [facility] Last Admin: 10/24/17 10:55 Dose: Not Given Vitamin B Complex/Vit C/Folic Acid (Nephro-Aleksandra) 1 tab PO DAILY [facility] Last Admin: 10/24/17 10:56 Dose: Not Given - Labs Labs: 10/24/17 06:20 10/24/17 06:20 PT 13.9 SECONDS (9.7-12.2) H 10/24/17 06:20 INR 1.2 10/24/17 06:20 APTT 57 SECONDS (21-34) H D 10/24/17 06:20 - Constitutional Appears: Non-toxic, Chronically Ill - Head Exam Head Exam: ATRAUMATIC - Eye Exam Eye Exam: EOMI, Normal appearance - ENT Exam ENT Exam: Mucous Membranes Moist - Neck Exam Neck Exam: Full ROM. absent: Lymphadenopathy - Respiratory Exam Respiratory Exam: Decreased Breath Sounds. absent: Accessory Muscle Use - Cardiovascular Exam Cardiovascular Exam: REGULAR RHYTHM Additional comments: transvenous pacemaker - Neurological Exam Neurological Exam: Alert, Oriented x3 Assessment and Plan - Assessment and Plan (Free Text) Assessment: dialysis dependent cardiomyopathy neurogenic bladder bradyarrhythmia await aicd maint HD rehab and placement
[2017-10-24] MEDS: Epoetin Alfa 10,000 unit/ml Dialysis IV SCH (16:40)
--- NOTE | 2017-10-24 23:03 | CP.PCM.PN ---
Subjective - Date & Time of Evaluation Date of Evaluation: 10/24/17 Time of Evaluation: 23:03 - Subjective Subjective: AFEBRILE, HR DROPPED TO 30S. PACEMAKER HAD TO BE ADJUSTED PER [facility] [employer].. PATIENT FOR AICD AT [facility]/OR [facility] BY DR. MORELOS. PATIENT PRESENTLY DENIES SHORTNESS OF BREATH OR CHEST PAIN. HAS CHRONIC Mitchell CATHETER IN PLACE BENIGN PROSTATIC HYPERTROPHY. ALL CULTURES NEGATIVE TO DATE. PATIENT OFF ANTIBIOTICS Objective - Vital Signs/Intake and Output Vital Signs (last 24 hours): Temp Pulse Resp BP Pulse Ox 97.8 F 64 21 99/60 L 48 L 10/24/17 20:00 10/24/17 22:18 10/24/17 22:18 10/24/17 22:19 10/24/17 15:17 Intake and Output: 10/24/17 10/25/17 18:59 06:59 Intake Total 116 Output Total 300 Balance -184 - Medications Medications: Current Medications Amiodarone HCl (Cordarone) 400 mg PO BID [facility] Last Admin: 10/24/17 18:42 Dose: 400 mg Aspirin (Aspirin Chewable) 81 mg PO DAILY [facility] Last Admin: 10/24/17 10:54 Dose: Not Given Calcium Acetate (Phoslo) 667 mg PO TID [facility] Last Admin: 10/24/17 18:41 Dose: 667 mg Epoetin Pepe (Procrit) 10,000 unit IV MWF [facility] Last Admin: 10/24/17 16:40 Dose: 10,000 unit Famotidine (Pepcid) 20 mg PO DAILY [facility] Last Admin: 10/24/17 10:57 Dose: Not Given Heparin Sodium/Sodium Chloride (Heparin 93127 Units/250ml 1/2 Normal Saline) 25 ,000 units in 250 mls @ 8.199 mls/hr IV .Q24H PRN; Protocol; 15 U/KG/HR PRN Reason: PROTOCOL Last Admin: 10/24/17 00:50 Dose: 15 u/kg/hr, 8.199 mls/hr Midodrine (Proamatine) 5 mg PO TID [facility] Last Admin: 10/24/17 18:39 Dose: Not Given Rosuvastatin Calcium (Crestor) 10 mg PO HS [facility] Last Admin: 10/24/17 21:57 Dose: 10 mg Tamsulosin HCl (Flomax) 0.4 mg PO DAILY [facility] Last Admin: 10/24/17 10:55 Dose: Not Given Vitamin B Complex/Vit C/Folic Acid (Nephro-Aleksandra) 1 tab PO DAILY [facility] Last Admin: 10/24/17 10:56 Dose: Not Given - Labs Labs: 10/24/17 06:20 10/24/17 06:20 PT 13.9 SECONDS (9.7-12.2) H 10/24/17 06:20 INR 1.2 10/24/17 06:20 APTT 57 SECONDS (21-34) H D 10/24/17 06:20 - Constitutional Appears: No Acute Distress, Cachectic, Chronically Ill - Eye Exam Eye Exam: EOMI, PERRL - ENT Exam ENT Exam: Normal Oropharynx - Neck Exam Neck Exam: Normal Inspection - Respiratory Exam Respiratory Exam: Clear to Ausculation Bilateral - Cardiovascular Exam Cardiovascular Exam: REGULAR RHYTHM, +S1, +S2 - GI/Abdominal Exam GI & Abdominal Exam: Soft, Normal Bowel Sounds - Extremities Exam Extremities Exam: absent: Calf Tenderness, Pedal Edema Additional comments: hyperpigmented lower extremities. - Neurological Exam Neurological Exam: Abnormal Gait, Awake, CN II-XII Intact, Oriented x3 - Skin Skin Exam: Warm Assessment and Plan (1) Bradycardia Status: Acute (2) UTI (urinary tract infection) Status: Acute (3) Acute urinary retention Status: Acute (4) Obstructed Mitchell catheter Status: Acute (5) Renal failure, acute on chronic Status: Acute (6) Cachexia Status: Acute (7) Cardiomyopathy Status: Acute (8) Benign prostatic hyperplasia Status: Acute (9) Hepatitis C antibody test positive Status: Acute (10) DVT of axillary vein, acute left Status: Acute - Assessment and Plan (Free Text) Assessment: IMPRESSION; BRADYCARDIA ARRHYTHMIAS. NEUROGENIC BLADDER S/P UTI BENIGN PROSTATIC HYPERTROPHY/OBSTRUCTIVE UROPATHY S/P CHRONIC fOLEYS CARDIOMYOPATHY. ESRD ON HD MWF. ANEMIA. HEPATITIS C (VL NOT DETECTED ) DVT LT.UPPER EXTREMITY. [place]HEXIA OF CHRONIC HEART DISEASE/CRF PLAN; PATIENT FOR AICD IN AM PER CARDIOLOGY. PATIENT PRESENTLY HAS TEMPORARY TRANSVENOUS PACEMAKER LT/IJ. PATIENT ON HEPARIN DRIP. PRESENTLY OFF ANTIBIOTICS. OK FOR AICD PER ID. PER MEDICAL/AND INTESIVIST TEAM.
--- NOTE | 2017-10-25 07:33 | CP.CCUPN ---
<Karina Rivera - Last Filed: 10/25/17 13:41> CCU Subjective - Physician Review Subjective (Free Text): Progress Note for Dr. Krueger Patient seen and examined at bedside. Patient was made NPO after breakfast by Dr. Wright. Patient denies chest pain, shortness of breath. Transvenous pacer needed to be readjusted. HR is paced in 60s. Patient aware that authorization from insurance went through. Waiting for Dr. Wright to call about when patient can be transferred. Critical Care Time Spent (in minutes): 35 CCU Objective - Vital Signs / Intake & Output Vital Signs (Last 4 hours): Vital Signs Temp Pulse Resp BP 10/25/17 06:49 62 19 82/45 L 10/25/17 06:20 35 L 25 H 95/50 L 10/25/17 06:00 41 L 21 10/25/17 05:50 41 L 17 89/46 L 10/25/17 05:19 55 L 22 92/48 L 10/25/17 05:07 62 20 89/49 L 10/25/17 05:00 62 22 10/25/17 04:49 50 L 23 75/53 L 10/25/17 04:19 52 L 24 82/48 L 10/25/17 04:17 52 L 24 88/43 L 10/25/17 04:00 97.9 F 45 L 14 10/25/17 03:50 47 L 22 90/52 L Intake and Output (Last 8hrs): Intake & Output 10/24/17 10/25/17 10/25/17 22:59 06:59 14:59 Intake Total 116 Output Total 300 Balance -184 Weight 120 lb Intake: Intake, IV Amount 96 Right Hand 96 Oral 20 Output: Urine 300 Urethral (Bcek) 300 Other: # Bowel Movements 1 - Physical Exam Head: Positive for: Atraumatic, Normocephalic Extroacular Muscles: Positive for: EOMI. Negative for: Gaze Palsy Conjunctiva: Positive for: Normal Mouth: Positive for: Moist Mucous Membranes, Normal Lips Neck: Positive for: Normal Range of Motion, Other (temporary transvenous pacer) Respiratory/Chest: Positive for: Clear to Auscultation Cardiovascular: Positive for: Regular Rate and Rhythm Abdomen: Positive for: Normal Bowel Sounds Upper Extremity: Positive for: Normal Inspection, Capillary Refill < 2s. Negative for: Edema Lower Extremity: Positive for: Normal Inspection, Capillary Refill < 2 s. Negative for: Edema Neurological: Positive for: Speech Normal Psychiatric: Positive for: Alert, Oriented x 3 - Medications Active Medications: Active Medications Generic Name Dose Route Start Last Admin Trade Name Freq PRN Reason Stop Dose Admin Amiodarone HCl 400 mg 09/28/17 18:00 10/24/17 18:42 Cordarone PO 400 mg BID [facility] Administration Aspirin 81 mg 10/21/17 10:00 10/24/17 10:54 Aspirin Chewable PO Not Given DAILY [facility] Calcium Acetate 667 mg 10/22/17 14:00 10/24/17 18:41 Phoslo PO 667 mg TID [facility] Administration Epoetin Pepe 10,000 unit 10/22/17 14:30 10/24/17 16:40 Procrit IV 10,000 unit MWF [facility] Administration Famotidine 20 mg 09/26/17 10:00 10/24/17 10:57 Pepcid PO Not Given DAILY [facility] Heparin Sodium/Sodium Chloride 25,000 units in 250 mls @ 8.199 mls/hr 01:00 10/24/17 00:50 Heparin 85279 Units/250ml 1/2 Normal Saline IV 15 u/kg/hr .Q24H PRN 8.199 mls/hr PROTOCOL Administration Protocol 15 U/KG/HR Midodrine 5 mg 10/18/17 10:32 10/24/17 18:39 Proamatine PO Not Given TID [facility] Rosuvastatin Calcium 10 mg 10/19/17 22:00 10/24/17 21:57 Crestor PO 10 mg HS [facility] Administration Tamsulosin HCl 0.4 mg 10/12/17 10:00 10/24/17 10:55 Flomax PO Not Given DAILY [facility] Vitamin B Complex/Vit C/Folic Acid 1 tab 10/12/17 10:00 10/24/17 10:56 Nephro-Aleksandra PO Not Given DAILY [facility] Critical Care Progress Note - Nutrition Nutrition: Nutrition Category Date Time Status NPO Diet [DIET] Diets 10/25/17 Breakfast Active Assessment/Plan - Assessment and Plan (Free Text) Assessment: 77M with PMHx of BPH, urinary retention, renal failure on dialysis, CHF, arrhythmia admitted 09/24 for urinary retention. Patient had symptomatic bradycardia, life vest was placed on patient, and patient was brought to ICU after 0.5mg IV Atropine, 5 minute wait, 0.5mg IV Atropine was pushed. Patient has a transcutaneous pacer placed 10/19. NPO for breakfast, tentative plan for AICD by Dr. Wright today 10/25/2017 Neuro: 10/[address] No acute findings seen within the brain, allowing for motion artifact Cardio symptomatic bradycardia EF 20% 10/19 Transvenous pacer (Set at 60 with sensitivity of 4 and amp of 25 V), CXR confirmation Life vest consult: Dr. Wright for AICD 10/23 Upper-extremity Dopplers: L - superficial thrombophlebitis of the left mid upper arm cephalic vein with severe reduction of the venous return R - No evidence of DVT of the left upper extremity with excellent venous flow. Normal valve function noted of the left side 10/23 Transvenous pacer not capturing. Advanced until HR of 60. Currently awaiting authorization for ICD, follow-up with case-manager summer ([place]), possibly Sunday. Amiodarone 400 mg PO BID [facility] Aspirin 81 mg PO Daily [facility] Crestor 10 mg PO HS [facility] Heparin 25,000 units in 250 mls @8.199 mls/hr IV Q24H PRN Pulm: Monitor vitals 10/20 Chest XRAY Interval mild improvement in the lungs since the previous exam 10/19 Chest XRAY Appropriate position of the support devices. No significant interval change noted since the previous exam in the lungs. 10/02 Chest XRAY Interval insertion hemodialysis catheter. Bilateral pleural effusions - bilaterally slightly increased - up to each hemithoracic height. Bibasilar compressive atelectasis-inferred. Underlying infiltrates not excluded. Cardiomegaly. Pulmonary venous congestion-slightly increased. BPH Flomax 0.4mg POQD Renal Renal Failure Patient has ESRD Dialysis, MWF Phoslo 667 mg PO TID [facility] Midodrine 5mg PO TID [facility] 10,000 u IV MWF Dialysis MWF s/p RIJ Permacath (10/04) and Left AVF (10/09) Vitamin B complex 1 tab PO QD As per Dr. Adair, keep K > 4, Mag > 2 Please see ID for details GI CMP Diet: Renal ID: 10/19 Naris - MRSA not detected 10/09 Urine Cx Multiple species 10/02 Urine Cx Pseudomonas Aeruginosa 09/27 Urine Cx EColi, VRE 09/24 Urine Cx EColi, VRE IV Gentamicin, last dose 10/16/17 Prophylaxis: GI: Pepcid 20mg PO QD DVT: SCDs 10/24/17 transvenous pacer readjusted to rate of 60s 10/25/17 to be transferred for AICD per Dr. Wright if patient has a spot in OR schedule at [facility] Discussed with Dr. Gordo Rivera DO PGY1 - Date & Time Date: 10/25/17 <Sukumar Caro - Last Filed: 10/25/17 16:52> CCU Objective - Vital Signs / Intake & Output Vital Signs (Last 4 hours): Vital Signs Pulse Resp BP BP 10/25/17 14:49 62 17 93/47 L 10/25/17 14:20 62 20 89/53 L 10/25/17 14:00 62 17 10/25/17 13:50 62 17 72/45 L 10/25/17 13:40 128/68 10/25/17 13:19 62 16 94/40 L 10/25/17 13:10 119/66 10/25/17 13:00 62 19 Intake and Output (Last 8hrs): Intake & Output 10/25/17 10/25/17 10/25/17 06:59 14:59 22:59 Weight 120 lb - Medications Active Medications: Active Medications Generic Name Dose Route Start Last Admin Trade Name Freq PRN Reason Stop Dose Admin Amiodarone HCl 400 mg 09/28/17 18:00 10/25/17 09:49 Cordarone PO Not Given BID [facility] Aspirin 81 mg 10/21/17 10:00 10/25/17 09:49 Aspirin Chewable PO Not Given DAILY [facility] Calcium Acetate 667 mg 10/22/17 14:00 10/25/17 14:49 Phoslo PO Not Given TID [facility] Epoetin Pepe 10,000 unit 10/22/17 14:30 10/24/17 16:40 Procrit IV 10,000 unit MWF [facility] Administration Famotidine 20 mg 09/26/17 10:00 10/25/17 09:50 Pepcid PO Not Given DAILY [facility] Heparin Sodium/Sodium Chloride 25,000 units in 250 mls @ 8.199 mls/hr 01:00 10/24/17 00:50 Heparin 77801 Units/250ml 1/2 Normal Saline IV 15 u/kg/hr .Q24H PRN 8.199 mls/hr PROTOCOL Administration Protocol 15 U/KG/HR Midodrine 5 mg 10/18/17 10:32 10/25/17 14:49 Proamatine PO Not Given TID [facility] Rosuvastatin Calcium 10 mg 10/19/17 22:00 10/24/17 21:57 Crestor PO 10 mg HS [facility] Administration Tamsulosin HCl 0.4 mg 10/12/17 10:00 10/25/17 09:50 Flomax PO Not Given DAILY [facility] Vitamin B Complex/Vit C/Folic Acid 1 tab 10/12/17 10:00 10/25/17 09:50 Nephro-Aleksandra PO Not Given DAILY [facility] - Patient Studies Lab Studies: Lab Studies 10/25/17 10/25/17 10/25/17 Range/Units 11:46 11:46 11:46 WBC 4.4 L (4.8-10.8) K/uL RBC 3.27 L (4.40-5.90) Mil/uL Hgb 10.1 L (12.0-18.0) g/dL Hct 31.8 L (35.0-51.0) % MCV 97.4 H (80.0-94.0) fL MCH 30.9 (27.0-31.0) pg MCHC 31.8 L (33.0-37.0) g/dL RDW 20.1 H (11.5-14.5) % Plt Count 137 (130-400) K/uL MPV 9.9 (7.2-11.7) fL Neut % (Auto) 75.9 H (50.0-75.0) % Lymph % (Auto) 13.1 L (20.0-40.0) % [place] % (Auto) 9.9 (0.0-10.0) % Eos % (Auto) 0.3 (0.0-4.0) % Baso % (Auto) 0.8 (0.0-2.0) % Neut # 3.4 (1.8-7.0) K/uL Lymph # 0.6 L (1.0-4.3) K/uL [place] # 0.4 (0.0-0.8) K/uL Eos # 0.0 (0.0-0.7) K/uL Baso # 0.0 (0.0-0.2) K/uL APTT 103 H* D (21-34) SECONDS Sodium 132 (132-148) mmol/L Potassium 5.3 H (3.6-5.2) mmol/L Chloride 95 L (98-107) mmol/L Carbon Dioxide 25 (22-30) mmol/L Anion Gap 16 (10-20) BUN 52 H (9-20) mg/dL Creatinine 6.7 H (0.8-1.5) mg/dL Est GFR ( Amer) 10 Est GFR (Non-Af Amer) 8 Random Glucose 162 H (75-110) mg/dL Calcium 7.7 L (8.6-10.4) mg/dl Phosphorus 6.0 H (2.5-4.5) mg/dL Magnesium 1.8 (1.6-2.3) mg/dL Total Bilirubin 0.6 (0.2-1.3) mg/dL AST 24 (17-59) U/L ALT 51 (21-72) U/L Alkaline Phosphatase 133 H (38-126) U/L Total Protein 7.5 (6.3-8.3) g/dL Albumin 3.3 L (3.5-5.0) g/dL Globulin 4.2 H (2.2-3.9) gm/dL Albumin/Globulin Ratio 0.8 L (1.0-2.1) Laboratory Results - last 24 hr 10/25/17 10/25/17 10/25/17 11:46 11:46 11:46 WBC 4.4 L RBC 3.27 L Hgb 10.1 L Hct 31.8 L MCV 97.4 H MCH 30.9 MCHC 31.8 L RDW 20.1 H Plt Count 137 MPV 9.9 Neut % (Auto) 75.9 H Lymph % (Auto) 13.1 L [place] % (Auto) 9.9 Eos % (Auto) 0.3 Baso % (Auto) 0.8 Neut # 3.4 Lymph # 0.6 L [place] # 0.4 Eos # 0.0 Baso # 0.0 APTT 103 H* D Sodium 132 Potassium 5.3 H Chloride 95 L Carbon Dioxide 25 Anion Gap 16 BUN 52 H Creatinine 6.7 H Est GFR ( Amer) 10 Est GFR (Non-Af Amer) 8 Random Glucose 162 H Calcium 7.7 L Phosphorus 6.0 H Magnesium 1.8 Total Bilirubin 0.6 AST 24 ALT 51 Alkaline Phosphatase 133 H Total Protein 7.5 Albumin 3.3 L Globulin 4.2 H Albumin/Globulin Ratio 0.8 L Critical Care Progress Note - Nutrition Nutrition: Nutrition Category Date Time Status Heart Healthy Diet [DIET] Diets 10/25/17 Lunch Active Assessment/Plan (1) Bradycardia Current Visit: Yes Status: Acute Comment: secondary to third-degree heart block, status post temporary pacemaker insertion Cardiology and EPS evaluation Patient refusing hemodialysis Follow-up lites Neurology evaluation Continue antibiotics for VRE Attending/Attestation - Attestation I have personally seen and examined this patient.: Yes I have fully participated in the care of the patient.: Yes I have reviewed all pertinent clinical information: Yes Notes (Text): 10/25/17 16:51 I have seen and examined the patient. Medical records, lab studies, and imaging were reviewed by me and a management plan was formulated on multidisciplinary rounds with resident Dr. Rivera. I agree with their documented assessment and plan. Awaiting AICD placement, transvenous pacer still in place. LUE cephalic vein DVT, on heparin drip. Critical Care Time 35 minutes. Multi-disciplinary rounds were performed with house staff, nursing, speech therapy, respiratory therapy, pharmacy and nutrition with integrated input from the primary team/attending and other consulting services. The documented time is cumulative and includes review of patient data/exams/labs/chart review and examination of the patient on rounds and throughout the day; time is exclusive of any procedures or teaching time.
[2017-10-25] MEDS: Multivitamin Vitamin B Complex (Nephro-Vite) Tab PO SCH (09:50)
[2017-10-25 11:53] LABS: BASO % 0.8 % (0.0-2.0); EOS % 0.3 % (0.0-4.0); HEMOGLOBIN 10.1 g/dL (12.0-18.0); LYMPH # 0.6 K/uL (1.0-4.3); LYMPH % 13.1 % (20.0-40.0); MEAN CELL VOLUME 97.4 fL (80.0-94.0); MEAN CORPUSCULAR HEMOGLOBIN 30.9 pg (27.0-31.0); MEAN CORPUSCULAR HGB CONC 31.8 g/dL (33.0-37.0); MEAN PLATELET VOLUME 9.9 fL (7.2-11.7); MONO # 0.4 K/uL (0.0-0.8); MONO % 9.9 % (0.0-10.0); NEUT # 3.4 K/uL (1.8-7.0); NEUT % 75.9 % (50.0-75.0); NRBC % 0.2 % (0.0-2.0); RBC 3.27 Mil/uL (4.40-5.90); RED CELL DISTRIBUTION WIDTH 20.1 % (11.5-14.5); WHITE BLOOD COUNT 4.4 K/uL (4.8-10.8)
[2017-10-25 12:48] LABS: ALB/GLOB RATIO 0.8 (1.0-2.1); ALBUMIN 3.3 g/dL (3.5-5.0); CALCIUM 7.7 mg/dl (8.6-10.4); MAGNESIUM 1.8 mg/dL (1.6-2.3)
--- NOTE | 2017-10-25 14:50 | CP.PCM.PN ---
Subjective - Date & Time of Evaluation Date of Evaluation: 10/25/17 Time of Evaluation: 14:49 - Subjective Subjective: AWAITING AICD REHAB PLACEMENT Objective - Vital Signs/Intake and Output Vital Signs (last 24 hours): Temp Pulse Resp BP Pulse Ox 97.8 F 62 21 128/68 48 L 10/25/17 08:00 10/25/17 10:20 10/25/17 10:20 10/25/17 13:40 10/24/17 15:17 - Medications Medications: Current Medications Amiodarone HCl (Cordarone) 400 mg PO BID [facility] Last Admin: 10/25/17 09:49 Dose: Not Given Aspirin (Aspirin Chewable) 81 mg PO DAILY [facility] Last Admin: 10/25/17 09:49 Dose: Not Given Calcium Acetate (Phoslo) 667 mg PO TID [facility] Last Admin: 10/25/17 09:50 Dose: Not Given Epoetin Pepe (Procrit) 10,000 unit IV MWF [facility] Last Admin: 10/24/17 16:40 Dose: 10,000 unit Famotidine (Pepcid) 20 mg PO DAILY [facility] Last Admin: 10/25/17 09:50 Dose: Not Given Heparin Sodium/Sodium Chloride (Heparin 02512 Units/250ml 1/2 Normal Saline) 25 ,000 units in 250 mls @ 8.199 mls/hr IV .Q24H PRN; Protocol; 15 U/KG/HR PRN Reason: PROTOCOL Last Admin: 10/24/17 00:50 Dose: 15 u/kg/hr, 8.199 mls/hr Midodrine (Proamatine) 5 mg PO TID [facility] Last Admin: 10/25/17 09:18 Dose: 5 mg Rosuvastatin Calcium (Crestor) 10 mg PO HS [facility] Last Admin: 10/24/17 21:57 Dose: 10 mg Tamsulosin HCl (Flomax) 0.4 mg PO DAILY [facility] Last Admin: 10/25/17 09:50 Dose: Not Given Vitamin B Complex/Vit C/Folic Acid (Nephro-Aleksandra) 1 tab PO DAILY [facility] Last Admin: 10/25/17 09:50 Dose: Not Given - Labs Labs: 10/25/17 11:46 10/25/17 11:46 PT 13.9 SECONDS (9.7-12.2) H 10/24/17 06:20 INR 1.2 10/24/17 06:20 APTT 103 SECONDS (21-34) H* D 10/25/17 11:46
[2017-10-25] MEDS ORDERED: Heparin25000 units/250ml 1/2NS 25,000 UNITS/250 ML BAG IV PRN (23:45)
[2017-10-26] MEDS: Heparin25000 units/250ml 1/2NS 25,000 UNITS/250 ML BAG IV PRN (00:15)
[2017-10-26 06:14] LABS: BASO # 0.1 K/uL (0.0-0.2); BASO % 1.1 % (0.0-2.0); EOS % 0.7 % (0.0-4.0); HEMOGLOBIN 10.2 g/dL (12.0-18.0); LYMPH # 0.8 K/uL (1.0-4.3); MEAN CELL VOLUME 98.1 fL (80.0-94.0); MEAN CORPUSCULAR HEMOGLOBIN 31.7 pg (27.0-31.0); MEAN CORPUSCULAR HGB CONC 32.3 g/dL (33.0-37.0); MONO # 0.6 K/uL (0.0-0.8); NEUT # 3.2 K/uL (1.8-7.0); NEUT % 68.2 % (50.0-75.0); NRBC % 0.3 % (0.0-2.0); RBC 3.23 Mil/uL (4.40-5.90); RED CELL DISTRIBUTION WIDTH 20.6 % (11.5-14.5); WHITE BLOOD COUNT 4.8 K/uL (4.8-10.8)
[2017-10-26 06:45] LABS: ALB/GLOB RATIO 0.8 (1.0-2.1); ALBUMIN 3.3 g/dL (3.5-5.0); CALCIUM 7.7 mg/dl (8.6-10.4); MAGNESIUM 1.8 mg/dL (1.6-2.3)
--- NOTE | 2017-10-26 08:38 | CP.PCM.PN ---
Subjective - Date & Time of Evaluation Date of Evaluation: 10/26/17 Time of Evaluation: 08:35 - Subjective Subjective: appears same awaiting ICD BP remains low intolerant of significant UF with HD phos elevated- on binders Objective - Vital Signs/Intake and Output Vital Signs (last 24 hours): Temp Pulse Resp BP Pulse Ox 98.2 F 62 18 98/51 L 92 L 10/26/17 04:00 10/26/17 06:00 10/26/17 06:00 10/26/17 05:49 10/26/17 06:00 Intake and Output: 10/26/17 10/26/17 06:59 18:59 Intake Total 92 Output Total 200 Balance -108 - Medications Medications: Current Medications Amiodarone HCl (Cordarone) 400 mg PO BID [facility] Last Admin: 10/25/17 18:50 Dose: Not Given Aspirin (Aspirin Chewable) 81 mg PO DAILY [facility] Last Admin: 10/25/17 09:49 Dose: Not Given Calcium Acetate (Phoslo) 667 mg PO TID [facility] Last Admin: 10/25/17 18:50 Dose: Not Given Epoetin Pepe (Procrit) 10,000 unit IV MWF [facility] Last Admin: 10/24/17 16:40 Dose: 10,000 unit Heparin Sodium/Sodium Chloride (Heparin 93734 Units/250ml 1/2 Normal Saline) 25 ,000 units in 250 mls @ 8.199 mls/hr IV .Q24H PRN; Protocol; 15 U/KG/HR PRN Reason: PROTOCOL Last Admin: 10/26/17 00:15 Dose: 15 u/kg/hr, 8.199 mls/hr Midodrine (Proamatine) 10 mg PO TID [facility] Rosuvastatin Calcium (Crestor) 10 mg PO HS [facility] Last Admin: 10/25/17 20:59 Dose: 10 mg Tamsulosin HCl (Flomax) 0.4 mg PO DAILY [facility] Last Admin: 10/25/17 09:50 Dose: Not Given Vitamin B Complex/Vit C/Folic Acid (Nephro-Aleksandra) 1 tab PO DAILY [facility] Last Admin: 10/25/17 09:50 Dose: Not Given - Labs Labs: 10/26/17 05:56 10/26/17 05:58 PT 13.9 SECONDS (9.7-12.2) H 10/24/17 06:20 INR 1.2 10/24/17 06:20 APTT 73 SECONDS (21-34) H D 10/26/17 05:57 - Constitutional Appears: No Acute Distress, Chronically Ill - Head Exam Head Exam: ATRAUMATIC, NORMAL INSPECTION - Eye Exam Eye Exam: EOMI, Normal appearance - Neck Exam Neck Exam: Normal Inspection. absent: Tenderness - Respiratory Exam Respiratory Exam: Clear to Ausculation Bilateral, NORMAL BREATHING PATTERN - Cardiovascular Exam Cardiovascular Exam: REGULAR RHYTHM, +S1 - GI/Abdominal Exam GI & Abdominal Exam: Tenderness. absent: Soft - Extremities Exam Extremities Exam: absent: Tenderness - Neurological Exam Neurological Exam: Awake, CN II-XII Intact - Skin Skin Exam: Warm Assessment and Plan (1) CKD (chronic kidney disease) stage 5, GFR less than 15 ml/min Status: Acute (2) Acute urinary retention Status: Acute (3) Obstructed Beck catheter Status: Acute (4) Cardiomyopathy Status: Acute (5) Hepatitis C antibody positive in blood Status: Acute (6) VRE (vancomycin resistant enterococcus) culture positive Status: Acute (7) ESRD (end stage renal disease) on dialysis Status: Acute (8) Hepatitis C antibody test positive Status: Acute - Assessment and Plan (Free Text) Plan: Dialysis today Increase midodrine Minimal UF with dialysis await ICD
[2017-10-26] MEDS ORDERED: ceFAZolin IV 1 gm in Dextrose 1 GM/50 ML BAG IVPB ONE (13:44)
[2017-10-26] MEDS ORDERED: Thrombin Topical 5,000 Int Units Spray Kit ONE (13:45)
[2017-10-26] MEDS ORDERED: Lidocaine 1% Inj (20ml) ONE (13:45)
--- NOTE | 2017-10-26 13:51 | CP.PCM.PN ---
Subjective - Date & Time of Evaluation Date of Evaluation: 10/26/17 Time of Evaluation: 13:49 - Subjective Subjective: NO CHANGE IN CLINICAL STATUS REFUSED DIALYSIS LAST PM STILL AWAITING AICD REHAB Objective - Vital Signs/Intake and Output Vital Signs (last 24 hours): Temp Pulse Resp BP Pulse Ox 97.4 F L 60 17 109/55 L 98 10/26/17 08:00 10/26/17 13:19 10/26/17 13:19 10/26/17 13:19 10/26/17 08:50 Intake and Output: 10/26/17 10/26/17 11:59 23:59 Intake Total 168 8 Output Total 200 Balance -32 8 - Medications Medications: Current Medications Amiodarone HCl (Cordarone) 400 mg PO BID [facility] Last Admin: 10/26/17 10:00 Dose: Not Given Aspirin (Aspirin Chewable) 81 mg PO DAILY [facility] Last Admin: 10/25/17 09:49 Dose: Not Given Calcium Acetate (Phoslo) 667 mg PO TID [facility] Last Admin: 10/26/17 10:00 Dose: Not Given Epoetin Pepe (Procrit) 10,000 unit IV MWF [facility] Last Admin: 10/24/17 16:40 Dose: 10,000 unit Heparin Sodium/Sodium Chloride (Heparin 86342 Units/250ml 1/2 Normal Saline) 25 ,000 units in 250 mls @ 8.199 mls/hr IV .Q24H PRN; Protocol; 15 U/KG/HR PRN Reason: PROTOCOL Last Admin: 10/26/17 00:15 Dose: 15 u/kg/hr, 8.199 mls/hr Bacitracin 50,000 unit/ Sodium (Chloride) 1,000 mls @ 1,000 mls/hr IR .Q1H [facility] Stop: 10/26/17 14:44 Midodrine (Proamatine) 10 mg PO TID [facility] Last Admin: 10/26/17 10:00 Dose: Not Given Rosuvastatin Calcium (Crestor) 10 mg PO HS [facility] Last Admin: 10/25/17 20:59 Dose: 10 mg Tamsulosin HCl (Flomax) 0.4 mg PO DAILY [facility] Last Admin: 10/25/17 09:50 Dose: Not Given Vitamin B Complex/Vit C/Folic Acid (Nephro-Aleksandra) 1 tab PO DAILY [facility] Last Admin: 10/25/17 09:50 Dose: Not Given - Labs Labs: 10/26/17 05:56 10/26/17 05:58 PT 13.9 SECONDS (9.7-12.2) H 10/24/17 06:20 INR 1.2 10/24/17 06:20 APTT 73 SECONDS (21-34) H D 10/26/17 05:57
[2017-10-26] MEDS ORDERED: Bacitracin 50,000 UNIT in Sodium Chloride 0.9% Irrig 1,000 ML IR SCH (14:00)
--- NOTE | 2017-10-26 15:16 | CP.CCUPN ---
<Karina Rivera - Last Filed: 10/26/17 15:16> CCU Subjective - Physician Review Subjective (Free Text): Progress Note for Dr. Caro Patient seen and examined at bedside. Patient was made NPO after breakfast by Dr. Wright. Patient denies chest pain, shortness of breath. Transvenous pacer in place. Patient is aware he's going to OR today for AICD placement. It was explained yesterday that patient has thrombophlebitis in superficial veins of left upper extremity. and Left UE cephalic vein dvt Critical Care Time Spent (in minutes): 35 CCU Objective - Vital Signs / Intake & Output Vital Signs (Last 4 hours): Vital Signs Pulse Resp BP 10/26/17 13:19 60 17 109/55 L 10/26/17 13:00 60 20 10/26/17 12:49 62 17 105/53 L 10/26/17 12:19 48 L 22 112/56 L 10/26/17 12:00 57 L 20 10/26/17 11:49 59 L 20 110/58 L 10/26/17 11:20 58 L 28 H 100/54 L Intake and Output (Last 8hrs): Intake & Output 10/26/17 10/26/17 10/26/17 06:59 14:59 22:59 Intake Total 64 120 Output Total 200 Balance -136 120 Weight 121 lb 8 oz Intake: Intake, IV Amount 64 120 Right Hand 64 120 Oral 0 Output: Urine 200 Urethral (Beck) 200 Other: # Bowel Movements 1 - Physical Exam Head: Positive for: Atraumatic, Normocephalic Extroacular Muscles: Positive for: EOMI. Negative for: Gaze Palsy Conjunctiva: Positive for: Normal Mouth: Positive for: Moist Mucous Membranes, Normal Lips Neck: Positive for: Normal Range of Motion, Other (temporary transvenous pacer) Respiratory/Chest: Positive for: Clear to Auscultation Cardiovascular: Positive for: Regular Rate and Rhythm Abdomen: Positive for: Normal Bowel Sounds Upper Extremity: Positive for: Normal Inspection, Capillary Refill < 2s. Negative for: Edema Lower Extremity: Positive for: Normal Inspection, Capillary Refill < 2 s. Negative for: Edema Neurological: Positive for: Speech Normal Psychiatric: Positive for: Alert, Oriented x 3 - Medications Active Medications: Active Medications Generic Name Dose Route Start Last Admin Trade Name Freq PRN Reason Stop Dose Admin Amiodarone HCl 400 mg 09/28/17 18:00 10/26/17 10:00 Cordarone PO Not Given BID [facility] Aspirin 81 mg 10/21/17 10:00 10/25/17 09:49 Aspirin Chewable PO Not Given DAILY [facility] Calcium Acetate 667 mg 10/22/17 14:00 10/26/17 10:00 Phoslo PO Not Given TID [facility] Epoetin Pepe 10,000 unit 10/22/17 14:30 10/24/17 16:40 Procrit IV 10,000 unit MWF [facility] Administration Heparin Sodium/Sodium Chloride 25,000 units in 250 mls @ 8.199 mls/hr 00:15 10/26/17 00:15 Heparin 11489 Units/250ml 1/2 Normal Saline IV 15 u/kg/hr .Q24H PRN 8.199 mls/hr PROTOCOL Administration Protocol 15 U/KG/HR Midodrine 10 mg 10/26/17 08:33 10/26/17 10:00 Proamatine PO Not Given TID [facility] Rosuvastatin Calcium 10 mg 10/19/17 22:00 10/25/17 20:59 Crestor PO 10 mg HS [facility] Administration Tamsulosin HCl 0.4 mg 10/12/17 10:00 10/25/17 09:50 Flomax PO Not Given DAILY [facility] Vitamin B Complex/Vit C/Folic Acid 1 tab 10/12/17 10:00 10/25/17 09:50 Nephro-Aleksandra PO Not Given DAILY [facility] - Patient Studies Lab Studies: Lab Studies 10/26/17 10/26/17 10/26/17 Range/Units 05:58 05:57 05:56 WBC 4.8 (4.8-10.8) K/uL RBC 3.23 L (4.40-5.90) Mil/uL Hgb 10.2 L (12.0-18.0) g/dL Hct 31.7 L (35.0-51.0) % MCV 98.1 H (80.0-94.0) fL MCH 31.7 H (27.0-31.0) pg MCHC 32.3 L (33.0-37.0) g/dL RDW 20.6 H (11.5-14.5) % Plt Count 132 (130-400) K/uL MPV 10.0 (7.2-11.7) fL Neut % (Auto) 68.2 (50.0-75.0) % Lymph % (Auto) 17.0 L (20.0-40.0) % [place] % (Auto) 13.0 H (0.0-10.0) % Eos % (Auto) 0.7 (0.0-4.0) % Baso % (Auto) 1.1 (0.0-2.0) % Neut # 3.2 (1.8-7.0) K/uL Lymph # 0.8 L (1.0-4.3) K/uL [place] # 0.6 (0.0-0.8) K/uL Eos # 0.0 (0.0-0.7) K/uL Baso # 0.1 (0.0-0.2) K/uL APTT 73 H D (21-34) SECONDS Sodium 131 L (132-148) mmol/L Potassium 5.3 H (3.6-5.2) mmol/L Chloride 96 L (98-107) mmol/L Carbon Dioxide 23 (22-30) mmol/L Anion Gap 17 (10-20) BUN 68 H (9-20) mg/dL Creatinine 7.5 H* (0.8-1.5) mg/dL Est GFR ( Amer) 9 Est GFR (Non-Af Amer) 7 Random Glucose 99 (75-110) mg/dL Calcium 7.7 L (8.6-10.4) mg/dl Phosphorus 6.6 H (2.5-4.5) mg/dL Magnesium 1.8 (1.6-2.3) mg/dL Total Bilirubin 0.6 (0.2-1.3) mg/dL AST 28 (17-59) U/L ALT 48 (21-72) U/L Alkaline Phosphatase 162 H D (38-126) U/L Total Protein 7.4 (6.3-8.3) g/dL Albumin 3.3 L (3.5-5.0) g/dL Globulin 4.1 H (2.2-3.9) gm/dL Albumin/Globulin Ratio 0.8 L (1.0-2.1) 01/04/18 Range/Units 22:35 WBC (4.8-10.8) K/uL RBC (4.40-5.90) Mil/uL Hgb (12.0-18.0) g/dL Hct (35.0-51.0) % MCV (80.0-94.0) fL MCH (27.0-31.0) pg MCHC (33.0-37.0) g/dL RDW (11.5-14.5) % Plt Count (130-400) K/uL MPV (7.2-11.7) fL Neut % (Auto) (50.0-75.0) % Lymph % (Auto) (20.0-40.0) % [place] % (Auto) (0.0-10.0) % Eos % (Auto) (0.0-4.0) % Baso % (Auto) (0.0-2.0) % Neut # (1.8-7.0) K/uL Lymph # (1.0-4.3) K/uL [place] # (0.0-0.8) K/uL Eos # (0.0-0.7) K/uL Baso # (0.0-0.2) K/uL APTT 36 H D (21-34) SECONDS Sodium (132-148) mmol/L Potassium (3.6-5.2) mmol/L Chloride (98-107) mmol/L Carbon Dioxide (22-30) mmol/L Anion Gap (10-20) BUN (9-20) mg/dL Creatinine (0.8-1.5) mg/dL Est GFR ( Amer) Est GFR (Non-Af Amer) Random Glucose (75-110) mg/dL Calcium (8.6-10.4) mg/dl Phosphorus (2.5-4.5) mg/dL Magnesium (1.6-2.3) mg/dL Total Bilirubin (0.2-1.3) mg/dL AST (17-59) U/L ALT (21-72) U/L Alkaline Phosphatase (38-126) U/L Total Protein (6.3-8.3) g/dL Albumin (3.5-5.0) g/dL Globulin (2.2-3.9) gm/dL Albumin/Globulin Ratio (1.0-2.1) Laboratory Results - last 24 hr 10/25/17 10/26/17 10/26/17 22:35 05:56 05:57 WBC 4.8 RBC 3.23 L Hgb 10.2 L Hct 31.7 L MCV 98.1 H MCH 31.7 H MCHC 32.3 L RDW 20.6 H Plt Count 132 MPV 10.0 Neut % (Auto) 68.2 Lymph % (Auto) 17.0 L [place] % (Auto) 13.0 H Eos % (Auto) 0.7 Baso % (Auto) 1.1 Neut # 3.2 Lymph # 0.8 L [place] # 0.6 Eos # 0.0 Baso # 0.1 APTT 36 H D 73 H D Sodium Potassium Chloride Carbon Dioxide Anion Gap BUN Creatinine Est GFR ( Amer) Est GFR (Non-Af Amer) Random Glucose Calcium Phosphorus Magnesium Total Bilirubin AST ALT Alkaline Phosphatase Total Protein Albumin Globulin Albumin/Globulin Ratio 10/26/17 05:58 WBC RBC Hgb Hct MCV MCH MCHC RDW Plt Count MPV Neut % (Auto) Lymph % (Auto) [place] % (Auto) Eos % (Auto) Baso % (Auto) Neut # Lymph # [place] # Eos # Baso # APTT Sodium 131 L Potassium 5.3 H Chloride 96 L Carbon Dioxide 23 Anion Gap 17 BUN 68 H Creatinine 7.5 H* Est GFR ( Amer) 9 Est GFR (Non-Af Amer) 7 Random Glucose 99 Calcium 7.7 L Phosphorus 6.6 H Magnesium 1.8 Total Bilirubin 0.6 AST 28 ALT 48 Alkaline Phosphatase 162 H D Total Protein 7.4 Albumin 3.3 L Globulin 4.1 H Albumin/Globulin Ratio 0.8 L Critical Care Progress Note - Nutrition Nutrition: Nutrition Category Date Time Status NPO Diet [DIET] Diets 10/26/17 Breakfast Active Assessment/Plan - Assessment and Plan (Free Text) Assessment: 77M with PMHx of BPH, urinary retention, renal failure on dialysis, CHF, arrhythmia admitted 09/24 for urinary retention. Patient had symptomatic bradycardia, life vest was placed on patient, and patient was brought to ICU after 0.5mg IV Atropine, 5 minute wait, 0.5mg IV Atropine was pushed. Patient has a transcutaneous pacer placed 10/19. NPO for breakfast, tentative plan for AICD by Dr. Wright today 10/25/2017 Neuro: 10/[address] No acute findings seen within the brain, allowing for motion artifact Cardio symptomatic bradycardia EF 20% 10/19 Transvenous pacer (Set at 60 with sensitivity of 4 and amp of 25 V), CXR confirmation Life vest consult: Dr. Wright for AICD 10/23 Upper-extremity Dopplers: L - superficial thrombophlebitis of the left mid upper arm cephalic vein with severe reduction of the venous return R - No evidence of DVT of the left upper extremity with excellent venous flow. Normal valve function noted of the left side 10/23 Transvenous pacer not capturing. Advanced until HR of 60. 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 Amiodarone 400 mg PO BID [facility] Aspirin 81 mg PO Daily [facility] Crestor 10 mg PO HS [facility] Heparin 25,000 units in 250 mls @8.199 mls/hr IV Q24H PRN Pulm: Monitor vitals 10/20 Chest XRAY Interval mild improvement in the lungs since the previous exam 10/19 Chest XRAY Appropriate position of the support devices. No significant interval change noted since the previous exam in the lungs. 10/02 Chest XRAY Interval insertion hemodialysis catheter. Bilateral pleural effusions - bilaterally slightly increased - up to each hemithoracic height. Bibasilar compressive atelectasis-inferred. Underlying infiltrates not excluded. Cardiomegaly. Pulmonary venous congestion-slightly increased. BPH Flomax 0.4mg POQD Renal Renal Failure Patient has ESRD Dialysis, MWF Phoslo 667 mg PO TID [facility] Midodrine 5mg PO TID Procrit 10,000 u IV MWF Dialysis MWF s/p RIJ Permacath (10/04) and Left AVF (10/09) Vitamin B complex 1 tab PO QD As per Dr. Adair, keep K > 4, Mag > 2 Please see ID for details GI CMP Diet: Renal ID: 10/19 Naris - MRSA not detected 10/09 Urine Cx Multiple species 10/02 Urine Cx Pseudomonas Aeruginosa 09/27 Urine Cx EColi, VRE 09/24 Urine Cx EColi, VRE IV Gentamicin, last dose 10/16/17 Prophylaxis: GI: Pepcid 20mg PO QD DVT: SCDs 10/24/17 transvenous pacer readjusted to rate of 60s 10/25/17 to be transferred for AICD per Dr. Wright if patient has a spot in OR schedule at [facility] 10/26/17 patient to have AICD to be placed by Dr. Wright in [facility] OR. Patient NPO Per nursing, patient is refusing heparin drip, refusing to be cleaned. Discussed with Dr. Gordo Rivera DO PGY1 - Date & Time Date: 10/26/17 Time: 15:14 <Sukumar Caro - Last Filed: 10/26/17 18:27> CCU Objective - Vital Signs / Intake & Output Vital Signs (Last 4 hours): Vital Signs BP 10/26/17 14:50 118/67 Intake and Output (Last 8hrs): Intake & Output 10/26/17 10/26/17 10/26/17 06:59 14:59 22:59 Intake Total 64 136 8 Output Total 200 Balance -136 136 8 Weight 121 lb 8 oz Intake: Intake, IV Amount 64 136 8 Right Hand 64 136 8 Oral 0 0 Output: Urine 200 Urethral (Beck) 200 Other: # Bowel Movements 1 - Medications Active Medications: Active Medications Generic Name Dose Route Start Last Admin Trade Name Freq PRN Reason Stop Dose Admin Amiodarone HCl 400 mg 09/28/17 18:00 10/26/17 10:00 Cordarone PO Not Given BID [facility] Aspirin 81 mg 10/21/17 10:00 10/25/17 09:49 Aspirin Chewable PO Not Given DAILY [facility] Calcium Acetate 667 mg 10/22/17 14:00 10/26/17 14:00 Phoslo PO Not Given TID [facility] Epoetin Pepe 10,000 unit 10/22/17 14:30 10/24/17 16:40 Procrit IV 10,000 unit [facility] Administration Heparin Sodium/Sodium Chloride 25,000 units in 250 mls @ 8.199 mls/hr 00:15 10/26/17 00:15 Heparin 79556 Units/250ml 1/2 Normal Saline IV 15 u/kg/hr .Q24H PRN 8.199 mls/hr PROTOCOL Administration Protocol 15 U/KG/HR Midodrine 10 mg 10/26/17 08:33 10/26/17 14:00 Proamatine PO Not Given TID [facility] Rosuvastatin Calcium 10 mg 10/19/17 22:00 10/25/17 20:59 Crestor PO 10 mg HS [facility] Administration Tamsulosin HCl 0.4 mg 10/12/17 10:00 10/25/17 09:50 Flomax PO Not Given DAILY [facility] Vitamin B Complex/Vit C/Folic Acid 1 tab 10/12/17 10:00 10/25/17 09:50 Nephro-Aleksandra PO Not Given DAILY [facility] - Patient Studies Lab Studies: Lab Studies 10/26/17 10/26/17 10/26/17 Range/Units 05:58 05:57 05:56 WBC 4.8 (4.8-10.8) K/uL RBC 3.23 L (4.40-5.90) Mil/uL Hgb 10.2 L (12.0-18.0) g/dL Hct 31.7 L (35.0-51.0) % MCV 98.1 H (80.0-94.0) fL MCH 31.7 H (27.0-31.0) pg MCHC 32.3 L (33.0-37.0) g/dL RDW 20.6 H (11.5-14.5) % Plt Count 132 (130-400) K/uL MPV 10.0 (7.2-11.7) fL Neut % (Auto) 68.2 (50.0-75.0) % Lymph % (Auto) 17.0 L (20.0-40.0) % [place] % (Auto) 13.0 H (0.0-10.0) % Eos % (Auto) 0.7 (0.0-4.0) % Baso % (Auto) 1.1 (0.0-2.0) % Neut # 3.2 (1.8-7.0) K/uL Lymph # 0.8 L (1.0-4.3) K/uL [place] # 0.6 (0.0-0.8) K/uL Eos # 0.0 (0.0-0.7) K/uL Baso # 0.1 (0.0-0.2) K/uL APTT 73 H D (21-34) SECONDS Sodium 131 L (132-148) mmol/L Potassium 5.3 H (3.6-5.2) mmol/L Chloride 96 L (98-107) mmol/L Carbon Dioxide 23 (22-30) mmol/L Anion Gap 17 (10-20) BUN 68 H (9-20) mg/dL Creatinine 7.5 H* (0.8-1.5) mg/dL Est GFR ( Amer) 9 Est GFR (Non-Af Amer) 7 Random Glucose 99 (75-110) mg/dL Calcium 7.7 L (8.6-10.4) mg/dl Phosphorus 6.6 H (2.5-4.5) mg/dL Magnesium 1.8 (1.6-2.3) mg/dL Total Bilirubin 0.6 (0.2-1.3) mg/dL AST 28 (17-59) U/L ALT 48 (21-72) U/L Alkaline Phosphatase 162 H D (38-126) U/L Total Protein 7.4 (6.3-8.3) g/dL Albumin 3.3 L (3.5-5.0) g/dL Globulin 4.1 H (2.2-3.9) gm/dL Albumin/Globulin Ratio 0.8 L (1.0-2.1) 10/25/17 Range/Units 22:35 WBC (4.8-10.8) K/uL RBC (4.40-5.90) Mil/uL Hgb (12.0-18.0) g/dL Hct (35.0-51.0) % MCV (80.0-94.0) fL MCH (27.0-31.0) pg MCHC (33.0-37.0) g/dL RDW (11.5-14.5) % Plt Count (130-400) K/uL MPV (7.2-11.7) fL Neut % (Auto) (50.0-75.0) % Lymph % (Auto) (20.0-40.0) % [place] % (Auto) (0.0-10.0) % Eos % (Auto) (0.0-4.0) % Baso % (Auto) (0.0-2.0) % Neut # (1.8-7.0) K/uL Lymph # (1.0-4.3) K/uL [place] # (0.0-0.8) K/uL Eos # (0.0-0.7) K/uL Baso # (0.0-0.2) K/uL APTT 36 H D (21-34) SECONDS Sodium (132-148) mmol/L Potassium (3.6-5.2) mmol/L Chloride (98-107) mmol/L Carbon Dioxide (22-30) mmol/L Anion Gap (10-20) BUN (9-20) mg/dL Creatinine (0.8-1.5) mg/dL Est GFR ( Amer) Est GFR (Non-Af Amer) Random Glucose (75-110) mg/dL Calcium (8.6-10.4) mg/dl Phosphorus (2.5-4.5) mg/dL Magnesium (1.6-2.3) mg/dL Total Bilirubin (0.2-1.3) mg/dL AST (17-59) U/L ALT (21-72) U/L Alkaline Phosphatase (38-126) U/L Total Protein (6.3-8.3) g/dL Albumin (3.5-5.0) g/dL Globulin (2.2-3.9) gm/dL Albumin/Globulin Ratio (1.0-2.1) Laboratory Results - last 24 hr 10/25/17 10/26/17 10/26/17 22:35 05:56 05:57 WBC 4.8 RBC 3.23 L Hgb 10.2 L Hct 31.7 L MCV 98.1 H MCH 31.7 H MCHC 32.3 L RDW 20.6 H Plt Count 132 MPV 10.0 Neut % (Auto) 68.2 Lymph % (Auto) 17.0 L [place] % (Auto) 13.0 H Eos % (Auto) 0.7 Baso % (Auto) 1.1 Neut # 3.2 Lymph # 0.8 L [place] # 0.6 Eos # 0.0 Baso # 0.1 APTT 36 H D 73 H D Sodium Potassium Chloride Carbon Dioxide Anion Gap BUN Creatinine Est GFR ( Amer) Est GFR (Non-Af Amer) Random Glucose Calcium Phosphorus Magnesium Total Bilirubin AST ALT Alkaline Phosphatase Total Protein Albumin Globulin Albumin/Globulin Ratio 10/26/17 05:58 WBC RBC Hgb Hct MCV MCH MCHC RDW Plt Count MPV Neut % (Auto) Lymph % (Auto) [place] % (Auto) Eos % (Auto) Baso % (Auto) Neut # Lymph # [place] # Eos # Baso # APTT Sodium 131 L Potassium 5.3 H Chloride 96 L Carbon Dioxide 23 Anion Gap 17 BUN 68 H Creatinine 7.5 H* Est GFR ( Amer) 9 Est GFR (Non-Af Amer) 7 Random Glucose 99 Calcium 7.7 L Phosphorus 6.6 H Magnesium 1.8 Total Bilirubin 0.6 AST 28 ALT 48 Alkaline Phosphatase 162 H D Total Protein 7.4 Albumin 3.3 L Globulin 4.1 H Albumin/Globulin Ratio 0.8 L Critical Care Progress Note - Nutrition Nutrition: Nutrition Category Date Time Status NPO Diet [DIET] Diets 10/26/17 Breakfast Active Assessment/Plan (1) Bradycardia Current Visit: Yes Status: Acute Comment: secondary to third-degree heart block, status post temporary pacemaker insertion Cardiology and EPS evaluation Patient refusing hemodialysis Follow-up lites Neurology evaluation Continue antibiotics for VRE Attending/Attestation - Attestation I have personally seen and examined this patient.: Yes I have fully participated in the care of the patient.: Yes I have reviewed all pertinent clinical information: Yes Notes (Text): 10/26/17 18:25 I have seen and examined the patient. Medical records, lab studies, and imaging were reviewed by me and a management plan was formulated on multidisciplinary rounds with resident Dr. Rivera. I agree with their documented assessment and plan. Patient still awaiting AICD placement. Refusing heparin gtt for LUE DVT. Will need group home oral a/c x 3 months. Critical Care Time 35 minutes. Multi-disciplinary rounds were performed with house staff, nursing, speech therapy, respiratory therapy, pharmacy and nutrition with integrated input from the primary team/attending and other consulting services. The documented time is cumulative and includes review of patient data/exams/labs/chart review and examination of the patient on rounds and throughout the day; time is exclusive of any procedures or teaching time. 10/26/17 18:27
[2017-10-26] MEDS ORDERED: Lactated Ringer's 1,000 ML IV ONE (16:00)
[2017-10-26] MEDS ORDERED: Iohexol 240 (50 ml) ONE (16:59)
--- NOTE | 2017-10-26 18:34 | PCM.OP ---
Operative Report - Operative Report Date of Surgery/Procedure: 10/26/17 Time of Surgery/Procedure: 18:24 Surgeon: Jose Wright Anesthesia/Sedation: Mac Pre-Operative Diagnosis: complete AV block. Cardiomyopathy Post-Operative Diagnosis: Complete AV block. Permanent pacemaker Indication for Surgery: complete heart block Operative Findings: Permanent pacemaker implant. Dual chamber pacemaker Procedure/Operation Description: The left pectoral region was prepped in the usual fashion; the axillary vein was accessed twice after local anesthesia and antibiotics were administred'. Two six trinidadian sheaths were placed, next a 3 cm incision was made over the left pectoral region and a pocket created after hemostasis was ensured; next a 46 cm and 53 cm leads were placed in the right atrial appendage and the right ventricular apex respectively; the leads were tested for pace and sense signals; after acceptable parameters were ascertained ; the sensed P was 2mV; impedance gyr360 ohms and 2.5V capture threshold; in the ventricle the sense R was 6mV; impedance was 550 ohms and the capture threshold was 1.5V. the leads were secured to the pectoral muscle; the leads were then attached to the new pacemaker st erick generator MRI compatible; the pocket was then closed in layers. skin was closed with miko and covered with tegaderm and telfa. next the temporary transvenous pacemaker was removed gently under fluoroscopic guidance; the IJ sheath was then removed; Estimated Blood Loss: 10 cc Blood Replaced: no Complications: none Discharge & Condition: stable
--- NOTE | 2017-10-26 18:40 | CP.PCM.PN ---
Subjective - Date & Time of Evaluation Date of Evaluation: 10/24/17 Time of Evaluation: 18:38 - Subjective Subjective: Clinical events reviewed Objective - Vital Signs/Intake and Output Vital Signs (last 24 hours): Temp Pulse Resp BP Pulse Ox 97.6 F 60 17 118/67 98 10/26/17 12:00 10/26/17 14:19 10/26/17 14:19 10/26/17 14:50 10/26/17 08:50 Intake and Output: 10/26/17 10/26/17 06:59 18:59 Intake Total 92 144 Output Total 200 Balance -108 144 - Medications Medications: Current Medications Amiodarone HCl (Cordarone) 400 mg PO BID [facility] Last Admin: 10/26/17 10:00 Dose: Not Given Aspirin (Aspirin Chewable) 81 mg PO DAILY [facility] Last Admin: 10/25/17 09:49 Dose: Not Given Calcium Acetate (Phoslo) 667 mg PO TID [facility] Last Admin: 10/26/17 14:00 Dose: Not Given Epoetin Pepe (Procrit) 10,000 unit IV MWF [facility] Last Admin: 10/24/17 16:40 Dose: 10,000 unit Heparin Sodium/Sodium Chloride (Heparin 95323 Units/250ml 1/2 Normal Saline) 25 ,000 units in 250 mls @ 8.199 mls/hr IV .Q24H PRN; Protocol; 15 U/KG/HR PRN Reason: PROTOCOL Last Admin: 10/26/17 00:15 Dose: 15 u/kg/hr, 8.199 mls/hr Midodrine (Proamatine) 10 mg PO TID [facility] Last Admin: 10/26/17 14:00 Dose: Not Given Rosuvastatin Calcium (Crestor) 10 mg PO HS [facility] Last Admin: 10/25/17 20:59 Dose: 10 mg Tamsulosin HCl (Flomax) 0.4 mg PO DAILY [facility] Last Admin: 10/25/17 09:50 Dose: Not Given Vitamin B Complex/Vit C/Folic Acid (Nephro-Aleksandra) 1 tab PO DAILY [facility] Last Admin: 10/25/17 09:50 Dose: Not Given - Labs Labs: 10/26/17 05:56 10/26/17 05:58 PT 13.9 SECONDS (9.7-12.2) H 10/24/17 06:20 INR 1.2 10/24/17 06:20 APTT 73 SECONDS (21-34) H D 10/26/17 05:57 Assessment and Plan - Assessment and Plan (Free Text) Assessment: Scheduled procedures were deferred due to logistics and insurance issues Plan: possible pacemaker implant in am discussed with patient at length issues the need for staged implant given the possibility of reversibility of LV function
[2017-10-27 06:32] LABS: EOS % 0.1 % (0.0-4.0); HEMOGLOBIN 10.3 g/dL (12.0-18.0); LYMPH # 0.4 K/uL (1.0-4.3); LYMPH % 7.9 % (20.0-40.0); MEAN CELL VOLUME 97.8 fL (80.0-94.0); MEAN CORPUSCULAR HEMOGLOBIN 31.5 pg (27.0-31.0); MEAN CORPUSCULAR HGB CONC 32.2 g/dL (33.0-37.0); MONO # 0.5 K/uL (0.0-0.8); MONO % 10.5 % (0.0-10.0); NEUT # 3.9 K/uL (1.8-7.0); NEUT % 80.5 % (50.0-75.0); NRBC % 0.5 % (0.0-2.0); PLATELET COUNT 121 K/uL (130-400); RBC 3.28 Mil/uL (4.40-5.90); RED CELL DISTRIBUTION WIDTH 19.9 % (11.5-14.5); WHITE BLOOD COUNT 4.8 K/uL (4.8-10.8)
[2017-10-27 06:47] LABS: ALB/GLOB RATIO 0.8 (1.0-2.1); ALBUMIN 3.3 g/dL (3.5-5.0); CALCIUM 7.8 mg/dl (8.6-10.4); MAGNESIUM 1.9 mg/dL (1.6-2.3)
[2017-10-27 08:49] LABS: BANDS 1 % (0-2); LYMPHOCYTE 8 % (20-40); MONOCYTE 13 % (0-10); NEUTROPHIL 78 % (50-75); PLATELET ESTIMATE DECREASED (NORMAL); TOTAL CELLS COUNTED 100
[2017-10-27 08:50] LABS: ANISOCYTOSIS MODERATE; BURR CELLS SLIGHT; HYPOCHROMIC SLIGHT; POIKILOCYTOSIS SLIGHT; POLYCHROMIC SLIGHT
[2017-10-27 08:51] LABS: OVALOCYTES SLIGHT; TEARDROP CELLS SLIGHT
--- NOTE | 2017-10-27 09:28 | CP.PCM.PN ---
Subjective - Date & Time of Evaluation Date of Evaluation: 10/27/17 Time of Evaluation: 09:25 - Subjective Subjective: s/p PPM insertion 10/26 refused dialysis 10/26- now K=6 explained urgency of dialysis to patient still weak, will accept dialysis today phos increased as well Objective - Vital Signs/Intake and Output Vital Signs (last 24 hours): Temp Pulse Resp BP Pulse Ox 98.0 F 53 L 19 98/53 L 100 10/27/17 04:00 10/27/17 07:00 10/27/17 07:00 10/27/17 06:35 10/27/17 07:00 Intake and Output: 10/27/17 10/27/17 06:59 18:59 Intake Total 656 8 Output Total 150 150 Balance 506 -142 - Medications Medications: Current Medications Amiodarone HCl (Cordarone) 400 mg PO BID [facility] Last Admin: 10/26/17 18:00 Dose: Not Given Aspirin (Aspirin Chewable) 81 mg PO DAILY [facility] Last Admin: 10/26/17 10:00 Dose: Not Given Calcium Acetate (Phoslo) 667 mg PO TID [facility] Last Admin: 10/26/17 18:00 Dose: Not Given Epoetin Pepe (Procrit) 10,000 unit IV MWF [facility] Last Admin: 10/24/17 16:40 Dose: 10,000 unit Heparin Sodium/Sodium Chloride (Heparin 29785 Units/250ml 1/2 Normal Saline) 25 ,000 units in 250 mls @ 8.199 mls/hr IV .Q24H PRN; Protocol; 15 U/KG/HR PRN Reason: PROTOCOL Last Admin: 10/26/17 00:15 Dose: 15 u/kg/hr, 8.199 mls/hr Midodrine (Proamatine) 10 mg PO TID [facility] Last Admin: 10/26/17 18:00 Dose: Not Given Rosuvastatin Calcium (Crestor) 10 mg PO HS [facility] Last Admin: 10/26/17 21:15 Dose: 10 mg Tamsulosin HCl (Flomax) 0.4 mg PO DAILY [facility] Last Admin: 10/26/17 10:00 Dose: Not Given Vitamin B Complex/Vit C/Folic Acid (Nephro-Aleksandra) 1 tab PO DAILY [facility] Last Admin: 10/25/17 09:50 Dose: Not Given - Labs Labs: 10/27/17 06:22 10/27/17 06:22 PT 13.9 SECONDS (9.7-12.2) H 10/24/17 06:20 INR 1.2 10/24/17 06:20 APTT 53 SECONDS (21-34) H D 10/27/17 06:22 - Constitutional Appears: Confused, Chronically Ill - Head Exam Head Exam: ATRAUMATIC, NORMAL INSPECTION - Eye Exam Eye Exam: EOMI, Normal appearance - Respiratory Exam Respiratory Exam: Rhonchi, NORMAL BREATHING PATTERN - Cardiovascular Exam Cardiovascular Exam: Tachycardia, +S1 - GI/Abdominal Exam GI & Abdominal Exam: Soft. absent: Tenderness - Extremities Exam Extremities Exam: Normal Inspection, Tenderness - Neurological Exam Neurological Exam: Awake, CN II-XII Intact - Skin Skin Exam: Dry, Warm Assessment and Plan (1) CKD (chronic kidney disease) stage 5, GFR less than 15 ml/min Status: Acute (2) Acute urinary retention Status: Acute (3) Obstructed Beck catheter Status: Acute (4) Cardiomyopathy Status: Acute (5) Hepatitis C antibody positive in blood Status: Acute (6) VRE (vancomycin resistant enterococcus) culture positive Status: Acute (7) ESRD (end stage renal disease) on dialysis Status: Acute (8) Hepatitis C antibody test positive Status: Acute - Assessment and Plan (Free Text) Plan: dialysis today and 10/29 try to increase UF goal if pt permits increase phos binders
[2017-10-27] MEDS: Multivitamin Vitamin B Complex (Nephro-Vite) Tab PO SCH (09:49)
--- NOTE | 2017-10-27 13:59 | CP.PCM.PN ---
Subjective - Date & Time of Evaluation Date of Evaluation: 10/27/17 Time of Evaluation: 13:58 - Subjective Subjective: ONLY PERM. PACEMAKER WAS PLACED . REFUSING DIALYSIS INTERMITTENTLY , BP STABLE [place] Objective - Vital Signs/Intake and Output Vital Signs (last 24 hours): Temp Pulse Resp BP Pulse Ox 97.8 F 60 24 90/54 L 90 L 10/27/17 12:00 10/27/17 13:00 10/27/17 13:00 10/27/17 12:35 10/27/17 12:00 Intake and Output: 10/27/17 10/27/17 11:59 23:59 Intake Total 266 66 Output Total 150 Balance 116 66 - Medications Medications: Current Medications Amiodarone HCl (Cordarone) 400 mg PO BID [facility] Last Admin: 10/27/17 09:49 Dose: 400 mg Aspirin (Aspirin Chewable) 81 mg PO DAILY [facility] Last Admin: 10/27/17 09:50 Dose: 81 mg Calcium Acetate (Phoslo) 1,334 mg PO TIDCC [facility] Last Admin: 10/27/17 12:58 Dose: 1,334 mg Epoetin Pepe (Procrit) 10,000 unit IV MWF [facility] Last Admin: 10/24/17 16:40 Dose: 10,000 unit Heparin Sodium/Sodium Chloride (Heparin 75156 Units/250ml 1/2 Normal Saline) 25 ,000 units in 250 mls @ 8.199 mls/hr IV .Q24H PRN; Protocol; 15 U/KG/HR PRN Reason: PROTOCOL Last Admin: 10/26/17 00:15 Dose: 15 u/kg/hr, 8.199 mls/hr Midodrine (Proamatine) 10 mg PO TID [facility] Last Admin: 10/27/17 09:48 Dose: 10 mg Rosuvastatin Calcium (Crestor) 10 mg PO HS [facility] Last Admin: 10/26/17 21:15 Dose: 10 mg Tamsulosin HCl (Flomax) 0.4 mg PO DAILY [facility] Last Admin: 10/27/17 09:49 Dose: 0.4 mg Vitamin B Complex/Vit C/Folic Acid (Nephro-Aleksandra) 1 tab PO DAILY [facility] Last Admin: 10/27/17 09:49 Dose: 1 tab - Labs Labs: 10/27/17 06:22 01/06/18 06:22 PT 13.9 SECONDS (9.7-12.2) H 10/24/17 06:20 INR 1.2 10/24/17 06:20 APTT 53 SECONDS (21-34) H D 10/27/17 06:22
[2017-10-27] MEDS ORDERED: Epoetin Alfa 10,000 unit/ml Dialysis SC ONE (18:03)
[2017-10-27] MEDS ORDERED: Epoetin Alfa 10,000 unit/ml Dialysis IV ONE (18:03)
--- NOTE | 2017-10-27 23:47 | CP.PCM.PN ---
Subjective - Date & Time of Evaluation Date of Evaluation: 10/27/17 Time of Evaluation: 23:47 - Subjective Subjective: afebrile,BP102/57 S/P DUAL CHAMBER PPM INSERTION 10/26/16. RENAL F/U NOTED PT REFUSING HD INTERMITTENTLY. FEELS WEAK Objective - Vital Signs/Intake and Output Vital Signs (last 24 hours): Temp Pulse Resp BP Pulse Ox 97.4 F L 59 L 18 106/46 L 90 L 10/27/17 20:00 10/27/17 22:00 10/27/17 22:00 10/27/17 21:50 10/27/17 12:00 Intake and Output: 10/27/17 10/28/17 18:59 06:59 Intake Total 366 108 Output Total 250 Balance 116 108 - Medications Medications: Current Medications Amiodarone HCl (Cordarone) 400 mg PO BID [facility] Last Admin: 10/27/17 19:45 Dose: 400 mg Aspirin (Aspirin Chewable) 81 mg PO DAILY [facility] Last Admin: 10/27/17 09:50 Dose: 81 mg Calcium Acetate (Phoslo) 1,334 mg PO TIDCC [facility] Last Admin: 10/27/17 18:11 Dose: 1,334 mg Epoetin Pepe (Procrit) 10,000 unit IV MWF [facility] Last Admin: 10/24/17 16:40 Dose: 10,000 unit Heparin Sodium/Sodium Chloride (Heparin 12680 Units/250ml 1/2 Normal Saline) 25 ,000 units in 250 mls @ 8.199 mls/hr IV .Q24H PRN; Protocol; 15 U/KG/HR PRN Reason: PROTOCOL Last Admin: 10/26/17 00:15 Dose: 15 u/kg/hr, 8.199 mls/hr Midodrine (Proamatine) 10 mg PO TID [facility] Last Admin: 10/27/17 18:11 Dose: 10 mg Rosuvastatin Calcium (Crestor) 10 mg PO HS [facility] Last Admin: 10/26/17 21:15 Dose: 10 mg Tamsulosin HCl (Flomax) 0.4 mg PO DAILY [facility] Last Admin: 10/27/17 09:49 Dose: 0.4 mg Vitamin B Complex/Vit C/Folic Acid (Nephro-Aleksandra) 1 tab PO DAILY [facility] Last Admin: 10/27/17 09:49 Dose: 1 tab - Labs Labs: 10/27/17 06:22 10/27/17 06:22 PT 13.9 SECONDS (9.7-12.2) H 10/24/17 06:20 INR 1.2 10/24/17 06:20 APTT 52 SECONDS (21-34) H 10/27/17 14:55 - Constitutional Appears: No Acute Distress, Cachectic, Chronically Ill - Head Exam Head Exam: NORMAL INSPECTION - Eye Exam Eye Exam: EOMI, PERRL - ENT Exam ENT Exam: Normal Oropharynx - Neck Exam Neck Exam: Normal Inspection - Respiratory Exam Respiratory Exam: Clear to Ausculation Bilateral - Cardiovascular Exam Cardiovascular Exam: REGULAR RHYTHM, +S1, +S2 (HR IN 60S) - GI/Abdominal Exam GI & Abdominal Exam: Soft, Normal Bowel Sounds - Extremities Exam Extremities Exam: absent: Calf Tenderness, Pedal Edema - Neurological Exam Neurological Exam: Awake, CN II-XII Intact, Oriented x3 - Psychiatric Exam Psychiatric exam: Normal Mood - Skin Skin Exam: Normal Color, Warm Assessment and Plan (1) Bradycardia Assessment & Plan: S/P DUAL CHAMBER PPM INSERTION 10/26/17. FEELS BETTER. Status: Acute (2) UTI (urinary tract infection) Assessment & Plan: STABLE. PT WITH [facility]YS FOR BPH. Status: Acute (3) Acute urinary retention Status: Acute (4) Obstructed Beck catheter Status: Acute (5) Renal failure, acute on chronic Status: Acute (6) Cachexia Status: Acute (7) Cardiomyopathy Status: Acute (8) Benign prostatic hyperplasia Status: Acute (9) Hepatitis C antibody test positive Status: Acute (10) DVT of axillary vein, acute left Status: Acute
--- NOTE | 2017-10-28 08:38 | RAD ---
PROCEDURE: Intraoperative Fluoroscopy. HISTORY: BRACHYCARDIA FINDINGS: Fluoroscopic assistance was provided for CVA device placement. Please fluoroscopic time is 793.7 seconds total radiation cumulative dose 76.13 mGy.
[2017-10-28] MEDS: Multivitamin Vitamin B Complex (Nephro-Vite) Tab PO SCH ×2 (10:13→10:14)
[2017-10-28] MEDS: Heparin25000 units/250ml 1/2NS 25,000 UNITS/250 ML BAG IV PRN (10:50)
--- NOTE | 2017-10-28 14:52 | CP.PCM.PN ---
Subjective - Date & Time of Evaluation Date of Evaluation: 10/28/17 Time of Evaluation: 14:51 Objective - Vital Signs/Intake and Output Vital Signs (last 24 hours): Temp Pulse Resp BP Pulse Ox 97.9 F 57 L 19 97/52 L 90 L 10/28/17 08:00 10/28/17 14:00 10/28/17 14:00 10/28/17 13:27 10/27/17 12:00 Intake and Output: 10/28/17 10/28/17 11:59 23:59 Intake Total 787.4 Output Total 0 Balance 787.4 - Medications Medications: Current Medications Amiodarone HCl (Cordarone) 400 mg PO BID [facility] Last Admin: 10/28/17 10:13 Dose: 400 mg Aspirin (Aspirin Chewable) 81 mg PO DAILY [facility] Last Admin: 10/28/17 10:13 Dose: 81 mg Calcium Acetate (Phoslo) 1,334 mg PO TIDCC [facility] Last Admin: 10/28/17 09:28 Dose: 667 mg Epoetin Pepe (Procrit) 10,000 unit IV MWF [facility] Last Admin: 10/24/17 16:40 Dose: 10,000 unit Heparin Sodium/Sodium Chloride (Heparin 28852 Units/250ml 1/2 Normal Saline) 25 ,000 units in 250 mls @ 8.199 mls/hr IV .Q24H PRN; Protocol; 15 U/KG/HR PRN Reason: PROTOCOL Last Admin: 10/28/17 10:50 Dose: 15 u/kg/hr, 8.199 mls/hr Midodrine (Proamatine) 10 mg PO TID [facility] Last Admin: 10/28/17 10:13 Dose: 10 mg Rosuvastatin Calcium (Crestor) 10 mg PO HS [facility] Last Admin: 10/26/17 21:15 Dose: 10 mg Tamsulosin HCl (Flomax) 0.4 mg PO DAILY [facility] Last Admin: 10/28/17 10:13 Dose: 0.4 mg Vitamin B Complex/Vit C/Folic Acid (Nephro-Aleksandra) 1 tab PO DAILY [facility] Last Admin: 10/28/17 10:14 Dose: 1 tab - Labs Labs: 10/27/17 06:22 10/27/17 06:22 PT 13.9 SECONDS (9.7-12.2) H 10/24/17 06:20 INR 1.2 10/24/17 06:20 APTT 36 SECONDS (21-34) H D 10/28/17 13:52
[2017-10-29] MEDS ORDERED: Heparin25000 units/250ml 1/2NS 25,000 UNITS/250 ML BAG IV PRN (09:25)
--- NOTE | 2017-10-29 11:21 | CP.PCM.PN ---
Subjective - Date & Time of Evaluation Date of Evaluation: 10/29/17 Time of Evaluation: 11:18 - Subjective Subjective: for dialysis now refusing to allow full treatments BP better now will attempt adequate dialysis now and adequate UF Objective - Vital Signs/Intake and Output Vital Signs (last 24 hours): Temp Pulse Resp BP Pulse Ox 97.8 F 65 16 125/64 96 10/28/17 20:00 10/29/17 06:00 10/29/17 06:00 10/29/17 06:00 10/29/17 00:00 Intake and Output: 10/29/17 10/29/17 06:59 18:59 Intake Total 375 Output Total 450 Balance -75 - Medications Medications: Current Medications Amiodarone HCl (Cordarone) 400 mg PO BID [facility] Last Admin: 10/28/17 19:02 Dose: 400 mg Aspirin (Aspirin Chewable) 81 mg PO DAILY [facility] Last Admin: 10/28/17 10:13 Dose: 81 mg Calcium Acetate (Phoslo) 1,334 mg PO TIDCC [facility] Last Admin: 10/29/17 09:01 Dose: Not Given Epoetin Pepe (Procrit) 10,000 unit IV MWF [facility] Last Admin: 10/24/17 16:40 Dose: 10,000 unit Heparin Sodium/Sodium Chloride (Heparin 00370 Units/250ml 1/2 Normal Saline) 25 ,000 units in 250 mls @ 9.969 mls/hr IV .Q24H PRN; Protocol; 18 UNITS/KG/HR PRN Reason: ADJUST RATE PER PROTOCOL Lactulose (Enulose) 20 gm PO HS PRN PRN Reason: Constipation Midodrine (Proamatine) 10 mg PO TID [facility] Last Admin: 10/28/17 19:02 Dose: Not Given Rosuvastatin Calcium (Crestor) 10 mg PO HS [facility] Last Admin: 10/28/17 22:14 Dose: 10 mg Tamsulosin HCl (Flomax) 0.4 mg PO DAILY [facility] Last Admin: 10/28/17 10:13 Dose: 0.4 mg Vitamin B Complex/Vit C/Folic Acid (Nephro-Aleksandra) 1 tab PO DAILY [facility] Last Admin: 10/28/17 10:14 Dose: 1 tab - Labs Labs: 10/27/17 06:22 10/27/17 06:22 PT 13.9 SECONDS (9.7-12.2) H 10/24/17 06:20 INR 1.2 10/24/17 06:20 APTT 47 SECONDS (21-34) H D 10/28/17 21:28 - Constitutional Appears: No Acute Distress, Chronically Ill - Head Exam Head Exam: ATRAUMATIC, NORMAL INSPECTION - Eye Exam Eye Exam: EOMI, Normal appearance - Neck Exam Neck Exam: Normal Inspection. absent: Tenderness - Respiratory Exam Respiratory Exam: Clear to Ausculation Bilateral, NORMAL BREATHING PATTERN - Cardiovascular Exam Cardiovascular Exam: REGULAR RHYTHM, +S1 - GI/Abdominal Exam GI & Abdominal Exam: Soft. absent: Tenderness - Extremities Exam Extremities Exam: Tenderness. absent: Normal Inspection - Neurological Exam Neurological Exam: Altered, CN II-XII Intact - Skin Skin Exam: Dry, Warm Assessment and Plan (1) CKD (chronic kidney disease) stage 5, GFR less than 15 ml/min Status: Acute (2) Acute urinary retention Status: Acute (3) Obstructed Beck catheter Status: Acute (4) Cardiomyopathy Status: Acute (5) Hepatitis C antibody positive in blood Status: Acute (6) VRE (vancomycin resistant enterococcus) culture positive Status: Acute (7) ESRD (end stage renal disease) on dialysis Status: Acute (8) Hepatitis C antibody test positive Status: Acute - Assessment and Plan (Free Text) Plan: Dialysis now and MWF Try proper UF if pt permits recheck chemistries
[2017-10-29] MEDS: Multivitamin Vitamin B Complex (Nephro-Vite) Tab PO SCH (12:19)
--- NOTE | 2017-10-29 13:41 | CP.PCM.PN ---
Subjective - Date & Time of Evaluation Date of Evaluation: 10/29/17 Time of Evaluation: 13:39 - Subjective Subjective: DECLINING FULL DIALYSIS INSPITE OF BP STABLE AT 118/125 MM OF HG SYSTOLIC PACED RHYTHM CONT SUPPORTIVE RX Objective - Vital Signs/Intake and Output Vital Signs (last 24 hours): Temp Pulse Resp BP Pulse Ox 98.3 F 63 21 118/58 L 99 10/29/17 13:26 10/29/17 13:26 10/29/17 13:26 10/29/17 13:26 10/29/17 10:00 Intake and Output: 10/29/17 10/29/17 11:59 23:59 Intake Total 100 Output Total 200 Balance -100 - Medications Medications: Current Medications Amiodarone HCl (Cordarone) 400 mg PO BID [facility] Last Admin: 10/29/17 12:18 Dose: Not Given Aspirin (Aspirin Chewable) 81 mg PO DAILY [facility] Last Admin: 10/29/17 12:18 Dose: Not Given Calcium Acetate (Phoslo) 1,334 mg PO TIDCC [facility] Last Admin: 10/29/17 12:19 Dose: Not Given Epoetin Pepe (Procrit) 10,000 unit IV MWF [facility] Last Admin: 10/24/17 16:40 Dose: 10,000 unit Heparin Sodium/Sodium Chloride (Heparin 01799 Units/250ml 1/2 Normal Saline) 25 ,000 units in 250 mls @ 9.969 mls/hr IV .Q24H PRN; Protocol; 18 UNITS/KG/HR PRN Reason: ADJUST RATE PER PROTOCOL Lactulose (Enulose) 20 gm PO HS PRN PRN Reason: Constipation Midodrine (Proamatine) 10 mg PO TID [facility] Last Admin: 10/29/17 12:19 Dose: Not Given Rosuvastatin Calcium (Crestor) 10 mg PO HS [facility] Last Admin: 10/28/17 22:14 Dose: 10 mg Tamsulosin HCl (Flomax) 0.4 mg PO DAILY [facility] Last Admin: 10/29/17 12:18 Dose: Not Given Vitamin B Complex/Vit C/Folic Acid (Nephro-Aleksandra) 1 tab PO DAILY [facility] Last Admin: 10/29/17 12:19 Dose: Not Given - Labs Labs: 10/27/17 06:22 10/27/17 06:22 PT 13.9 SECONDS (9.7-12.2) H 10/24/17 06:20 INR 1.2 10/24/17 06:20 APTT 47 SECONDS (21-34) H D 10/28/17 21:28
[2017-10-29] MEDS: Epoetin Alfa 10,000 unit/ml Dialysis IV SCH ×3 (15:59→21:22)
[2017-10-30 06:20] LABS: BASO % 0.6 % (0.0-2.0); EOS % 0.8 % (0.0-4.0); HEMOGLOBIN 10.7 g/dL (12.0-18.0); LYMPH # 0.7 K/uL (1.0-4.3); LYMPH % 12.4 % (20.0-40.0); MEAN CELL VOLUME 98.3 fL (80.0-94.0); MEAN CORPUSCULAR HEMOGLOBIN 30.7 pg (27.0-31.0); MEAN CORPUSCULAR HGB CONC 31.2 g/dL (33.0-37.0); MEAN PLATELET VOLUME 9.9 fL (7.2-11.7); MONO # 0.4 K/uL (0.0-0.8); NEUT # 4.1 K/uL (1.8-7.0); NEUT % 78.2 % (50.0-75.0); NRBC % 0.5 % (0.0-2.0); RBC 3.49 Mil/uL (4.40-5.90); RED CELL DISTRIBUTION WIDTH 20.6 % (11.5-14.5); WHITE BLOOD COUNT 5.3 K/uL (4.8-10.8)
[2017-10-30 06:44] LABS: ALB/GLOB RATIO 0.8 (1.0-2.1); ALBUMIN 3.4 g/dL (3.5-5.0); CALCIUM 7.5 mg/dl (8.6-10.4)
[2017-10-30] MEDS: Multivitamin Vitamin B Complex (Nephro-Vite) Tab PO SCH (10:35)
--- NOTE | 2017-10-30 13:06 | CP.PCM.PN ---
Subjective - Date & Time of Evaluation Date of Evaluation: 10/30/17 Time of Evaluation: 13:04 - Subjective Subjective: seen and examined c/o poor appetite, weakness +sob hd yesterday Objective - Vital Signs/Intake and Output Vital Signs (last 24 hours): Temp Pulse Resp BP Pulse Ox 97.8 F 76 22 110/54 L 96 10/30/17 12:00 10/30/17 12:00 10/30/17 12:00 10/30/17 11:29 10/30/17 12:00 Intake and Output: 10/30/17 10/30/17 06:59 18:59 Intake Total 351.6 147.0 Output Total 200 Balance 151.6 147.0 - Medications Medications: Current Medications Amiodarone HCl (Cordarone) 400 mg PO BID [facility] Last Admin: 10/30/17 10:35 Dose: 400 mg Aspirin (Aspirin Chewable) 81 mg PO DAILY [facility] Last Admin: 10/30/17 10:35 Dose: 81 mg Calcium Acetate (Phoslo) 1,334 mg PO TIDCC [facility] Last Admin: 10/30/17 11:13 Dose: 1,334 mg Epoetin Pepe (Procrit) 10,000 unit IV MWF [facility] Last Admin: 10/29/17 21:22 Dose: 10,000 unit Heparin Sodium/Sodium Chloride (Heparin 76719 Units/250ml 1/2 Normal Saline) 25 ,000 units in 250 mls @ 9.969 mls/hr IV .Q24H PRN; Protocol; 18 UNITS/KG/HR PRN Reason: ADJUST RATE PER PROTOCOL Last Admin: 10/29/17 19:29 Dose: 17 units/kg/hr, 9.415 mls/hr Lactulose (Enulose) 20 gm PO HS PRN PRN Reason: Constipation Midodrine (Proamatine) 10 mg PO TID [facility] Last Admin: 10/30/17 10:35 Dose: 10 mg Rosuvastatin Calcium (Crestor) 10 mg PO HS [facility] Last Admin: 10/29/17 21:30 Dose: 10 mg Tamsulosin HCl (Flomax) 0.4 mg PO DAILY [facility] Last Admin: 10/30/17 10:35 Dose: 0.4 mg Vitamin B Complex/Vit C/Folic Acid (Nephro-Aleksandra) 1 tab PO DAILY [facility] Last Admin: 10/30/17 10:35 Dose: 1 tab - Labs Labs: 10/30/17 06:12 10/30/17 06:12 PT 13.9 SECONDS (9.7-12.2) H 10/24/17 06:20 INR 1.2 10/24/17 06:20 APTT 57 SECONDS (21-34) H D 10/30/17 06:12 - Constitutional Appears: No Acute Distress, Cachectic, Chronically Ill - Head Exam Head Exam: NORMAL INSPECTION - Eye Exam Eye Exam: Normal appearance - ENT Exam ENT Exam: Mucous Membranes Moist, Normal Exam - Neck Exam Neck Exam: Normal Inspection - Respiratory Exam Respiratory Exam: Decreased Breath Sounds (rt chest permcath), NORMAL BREATHING PATTERN - Cardiovascular Exam Cardiovascular Exam: REGULAR RHYTHM - GI/Abdominal Exam GI & Abdominal Exam: Distended, Soft - Extremities Exam Extremities Exam: Normal Inspection - Neurological Exam Neurological Exam: Alert, Awake, Oriented x3 - Skin Skin Exam: Normal Color, Warm Assessment and Plan (1) Acute urinary retention Status: Acute (2) Renal failure, acute on chronic Status: Acute (3) Cardiomyopathy Status: Acute (4) Urinary retention due to benign prostatic hyperplasia Status: Acute (5) Bradycardia Status: Acute - Assessment and Plan (Free Text) Assessment: maintain hd mwf epogen cardiology management
--- NOTE | 2017-10-30 13:40 | CP.PCM.PN ---
Subjective - Date & Time of Evaluation Date of Evaluation: 10/30/17 Time of Evaluation: 13:39 - Subjective Subjective: CLINICALLY REMAINS SAME ON INTERMITTENT DIALYSIS PACED RHYTHM DISCHARGE PLANNING Objective - Vital Signs/Intake and Output Vital Signs (last 24 hours): Temp Pulse Resp BP Pulse Ox 97.8 F 76 22 110/54 L 96 10/30/17 12:00 10/30/17 12:00 10/30/17 12:00 10/30/17 11:29 10/30/17 12:00 Intake and Output: 10/30/17 10/30/17 11:59 23:59 Intake Total 389.2 268.8 Output Total 200 Balance 189.2 268.8 - Medications Medications: Current Medications Amiodarone HCl (Cordarone) 400 mg PO BID [facility] Last Admin: 10/30/17 10:35 Dose: 400 mg Aspirin (Aspirin Chewable) 81 mg PO DAILY [facility] Last Admin: 10/30/17 10:35 Dose: 81 mg Calcium Acetate (Phoslo) 1,334 mg PO TIDCC [facility] Last Admin: 10/30/17 11:13 Dose: 1,334 mg Epoetin Pepe (Procrit) 10,000 unit IV MWF [facility] Last Admin: 10/29/17 21:22 Dose: 10,000 unit Heparin Sodium/Sodium Chloride (Heparin 02612 Units/250ml 1/2 Normal Saline) 25 ,000 units in 250 mls @ 9.969 mls/hr IV .Q24H PRN; Protocol; 18 UNITS/KG/HR PRN Reason: ADJUST RATE PER PROTOCOL Last Admin: 10/29/17 19:29 Dose: 17 units/kg/hr, 9.415 mls/hr Lactulose (Enulose) 20 gm PO HS PRN PRN Reason: Constipation Midodrine (Proamatine) 10 mg PO TID [facility] Last Admin: 10/30/17 10:35 Dose: 10 mg Rosuvastatin Calcium (Crestor) 10 mg PO HS [facility] Last Admin: 10/29/17 21:30 Dose: 10 mg Tamsulosin HCl (Flomax) 0.4 mg PO DAILY [facility] Last Admin: 10/30/17 10:35 Dose: 0.4 mg Vitamin B Complex/Vit C/Folic Acid (Nephro-Aleksandra) 1 tab PO DAILY [facility] Last Admin: 10/30/17 10:35 Dose: 1 tab - Labs Labs: 10/30/17 06:12 10/30/17 06:12 PT 13.9 SECONDS (9.7-12.2) H 10/24/17 06:20 INR 1.2 10/24/17 06:20 APTT 57 SECONDS (21-34) H D 10/30/17 06:12
[2017-10-31] MEDS: Multivitamin Vitamin B Complex (Nephro-Vite) Tab PO SCH ×2 (10:03→14:00)
[2017-10-31] MEDS: Epoetin Alfa 10,000 unit/ml Dialysis IV SCH (10:30)
--- NOTE | 2017-10-31 13:22 | CP.PCM.PN ---
Subjective - Date & Time of Evaluation Date of Evaluation: 10/31/17 Time of Evaluation: 13:20 - Subjective Subjective: Events reviewed Offered no new complaints Objective - Vital Signs/Intake and Output Vital Signs (last 24 hours): Temp Pulse Resp BP Pulse Ox 97.2 F L 60 24 120/64 98 10/31/17 09:54 10/31/17 09:54 10/31/17 10:15 10/31/17 13:15 10/31/17 10:15 Intake and Output: 10/31/17 10/31/17 06:59 18:59 Intake Total 300 Output Total 200 Balance 300 -200 - Medications Medications: Current Medications Amiodarone HCl (Cordarone) 400 mg PO BID REPLACED BY [facility] Last Admin: 10/31/17 10:03 Dose: Not Given Aspirin (Aspirin Chewable) 81 mg PO DAILY REPLACED BY [facility] Last Admin: 10/31/17 10:03 Dose: Not Given Calcium Acetate (Phoslo) 1,334 mg PO TIDCC REPLACED BY [facility] Last Admin: 10/31/17 08:47 Dose: 1,334 mg Epoetin Pepe (Procrit) 10,000 unit IV MWF REPLACED BY [facility] Last Admin: 10/31/17 10:30 Dose: 10,000 unit Heparin Sodium (Porcine) (Heparin) 5,000 units SC Q8 REPLACED BY [facility] Last Admin: 10/31/17 05:15 Dose: 5,000 units Lactulose (Enulose) 20 gm PO HS PRN PRN Reason: Constipation Midodrine (Proamatine) 10 mg PO TID REPLACED BY [facility] Last Admin: 10/31/17 09:48 Dose: 10 mg Rosuvastatin Calcium (Crestor) 10 mg PO HS REPLACED BY [facility] Last Admin: 10/30/17 21:47 Dose: 10 mg Tamsulosin HCl (Flomax) 0.4 mg PO DAILY REPLACED BY [facility] Last Admin: 10/31/17 10:03 Dose: Not Given Vitamin B Complex/Vit C/Folic Acid (Nephro-Aleksandra) 1 tab PO DAILY REPLACED BY [facility] Last Admin: 10/31/17 10:03 Dose: Not Given - Labs Labs: 10/30/17 06:12 10/30/17 06:12 PT 13.9 SECONDS (9.7-12.2) H 10/24/17 06:20 INR 1.2 10/24/17 06:20 APTT 57 SECONDS (21-34) H D 10/30/17 06:12 Assessment and Plan - Assessment and Plan (Free Text) Assessment: S/p permanent pacemaker implant: wound clean On a life vest Cardiomyopathy: severe; stable Complete Heart block: paced rhythm ESRD Plan: [place] to be discontinued next week Continue with Life vest Possible ICD upgrade if LV function remains depressed
--- NOTE | 2017-10-31 13:26 | CP.PCM.PN ---
Subjective - Date & Time of Evaluation Date of Evaluation: 10/31/17 Time of Evaluation: 13:26 - Subjective Subjective: CLINICALLY REMAINS SAME ON INTERMITTENT DIALYSIS PACED RHYTHM DISCHARGE PLANNING Objective - Vital Signs/Intake and Output Vital Signs (last 24 hours): Temp Pulse Resp BP Pulse Ox 97.2 F L 60 24 120/64 98 10/31/17 09:54 10/31/17 09:54 10/31/17 10:15 10/31/17 13:15 10/31/17 10:15 Intake and Output: 10/31/17 10/31/17 11:59 23:59 Output Total 200 Balance -200 - Medications Medications: Current Medications Amiodarone HCl (Cordarone) 400 mg PO BID [facility] Last Admin: 10/31/17 10:03 Dose: Not Given Aspirin (Aspirin Chewable) 81 mg PO DAILY [facility] Last Admin: 10/31/17 10:03 Dose: Not Given Calcium Acetate (Phoslo) 1,334 mg PO TIDCC [facility] Last Admin: 10/31/17 13:24 Dose: Not Given Epoetin Pepe (Procrit) 10,000 unit IV MWF [facility] Last Admin: 10/31/17 10:30 Dose: 10,000 unit Heparin Sodium (Porcine) (Heparin) 5,000 units SC Q8 [facility] Last Admin: 10/31/17 05:15 Dose: 5,000 units Lactulose (Enulose) 20 gm PO HS PRN PRN Reason: Constipation Midodrine (Proamatine) 10 mg PO TID [facility] Last Admin: 10/31/17 09:48 Dose: 10 mg Rosuvastatin Calcium (Crestor) 10 mg PO HS [facility] Last Admin: 10/30/17 21:47 Dose: 10 mg Tamsulosin HCl (Flomax) 0.4 mg PO DAILY [facility] Last Admin: 10/31/17 10:03 Dose: Not Given Vitamin B Complex/Vit C/Folic Acid (Nephro-Aleksandra) 1 tab PO DAILY [facility] Last Admin: 10/31/17 10:03 Dose: Not Given - Labs Labs: 10/30/17 06:12 10/30/17 06:12 PT 13.9 SECONDS (9.7-12.2) H 10/24/17 06:20 INR 1.2 10/24/17 06:20 APTT 57 SECONDS (21-34) H D 10/30/17 06:12
--- NOTE | 2017-10-31 13:35 | CP.PCM.PN ---
Subjective - Date & Time of Evaluation Date of Evaluation: 10/31/17 Time of Evaluation: 13:32 - Subjective Subjective: seen at dialysis - to increase UF goal- 1800ml- well tolerated so far BP stable Hg better AV access placed Objective - Vital Signs/Intake and Output Vital Signs (last 24 hours): Temp Pulse Resp BP Pulse Ox 97.2 F L 60 24 120/64 98 10/31/17 09:54 10/31/17 09:54 10/31/17 10:15 10/31/17 13:15 10/31/17 10:15 Intake and Output: 10/31/17 10/31/17 06:59 18:59 Intake Total 300 Output Total 200 Balance 300 -200 - Medications Medications: Current Medications Amiodarone HCl (Cordarone) 400 mg PO BID [facility] Last Admin: 10/31/17 10:03 Dose: Not Given Aspirin (Aspirin Chewable) 81 mg PO DAILY [facility] Last Admin: 10/31/17 10:03 Dose: Not Given Calcium Acetate (Phoslo) 1,334 mg PO TIDCC [facility] Last Admin: 10/31/17 13:24 Dose: Not Given Epoetin Pepe (Procrit) 10,000 unit IV MWF [facility] Last Admin: 10/31/17 10:30 Dose: 10,000 unit Heparin Sodium (Porcine) (Heparin) 5,000 units SC Q8 [facility] Last Admin: 10/31/17 05:15 Dose: 5,000 units Lactulose (Enulose) 20 gm PO HS PRN PRN Reason: Constipation Midodrine (Proamatine) 10 mg PO TID [facility] Last Admin: 10/31/17 09:48 Dose: 10 mg Rosuvastatin Calcium (Crestor) 10 mg PO HS [facility] Last Admin: 10/30/17 21:47 Dose: 10 mg Tamsulosin HCl (Flomax) 0.4 mg PO DAILY [facility] Last Admin: 10/31/17 10:03 Dose: Not Given Vitamin B Complex/Vit C/Folic Acid (Nephro-Aleksandra) 1 tab PO DAILY [facility] Last Admin: 10/31/17 10:03 Dose: Not Given - Labs Labs: 10/30/17 06:12 10/30/17 06:12 PT 13.9 SECONDS (9.7-12.2) H 10/24/17 06:20 INR 1.2 10/24/17 06:20 APTT 57 SECONDS (21-34) H D 10/30/17 06:12 - Constitutional Appears: No Acute Distress, Chronically Ill - Head Exam Head Exam: ATRAUMATIC, NORMAL INSPECTION - Eye Exam Eye Exam: EOMI, Normal appearance - Neck Exam Neck Exam: Normal Inspection. absent: Tenderness - Respiratory Exam Respiratory Exam: Clear to Ausculation Bilateral, NORMAL BREATHING PATTERN - Cardiovascular Exam Cardiovascular Exam: REGULAR RHYTHM, +S1 - GI/Abdominal Exam GI & Abdominal Exam: Soft. absent: Tenderness - Extremities Exam Extremities Exam: Normal Inspection. absent: Tenderness - Neurological Exam Neurological Exam: Alert, CN II-XII Intact - Skin Skin Exam: Dry, Warm Assessment and Plan (1) CKD (chronic kidney disease) stage 5, GFR less than 15 ml/min Status: Acute (2) Acute urinary retention Status: Acute (3) Obstructed Beck catheter Status: Acute (4) Cardiomyopathy Status: Acute (5) Hepatitis C antibody positive in blood Status: Acute (6) VRE (vancomycin resistant enterococcus) culture positive Status: Acute (7) ESRD (end stage renal disease) on dialysis Status: Acute (8) Hepatitis C antibody test positive Status: Acute - Assessment and Plan (Free Text) Plan: Dialysis MWF Adequate UF Monitor labs Cardiac plans
[2017-10-31 21:15] LABS: HEPATITIS B SURFACE AG NEGATIVE (NEGATIVE)
[2017-10-31 21:19] LABS: HEPATITIS A IGM NEGATIVE (NEGATIVE); HEPATITIS B CORE AB Negative (NEGATIVE)
[2017-10-31 22:36] LABS: HEPATITIS C ANTIBODY Reactive (NEGATIVE)
--- NOTE | 2017-10-31 22:55 | CP.PCM.PN ---
Subjective - Date & Time of Evaluation Date of Evaluation: 10/31/17 Time of Evaluation: 22:55 - Subjective Subjective: patient transferred to the floor. afebrile,BP improved. patient on LifeVest as per cardiology S/P DUAL CHAMBER PPM INSERTION 10/26/17 c/o generalized weakness Gait instability.. PATIENT NEEDS AGGRESSIVE PT AT BEDSIDE. DIETITIAN TO SEE PT Objective - Vital Signs/Intake and Output Vital Signs (last 24 hours): Temp Pulse Resp BP Pulse Ox 97.5 F L 71 18 119/62 97 10/31/17 14:00 10/31/17 14:00 10/31/17 14:00 10/31/17 14:00 10/31/17 14:00 Intake and Output: 10/31/17 11/01/17 18:59 06:59 Intake Total 480 600 Output Total 300 Balance 180 600 - Medications Medications: Current Medications Amiodarone HCl (Cordarone) 400 mg PO BID [facility] Last Admin: 10/31/17 18:06 Dose: 400 mg Aspirin (Aspirin Chewable) 81 mg PO DAILY [facility] Last Admin: 10/31/17 14:00 Dose: 81 mg Calcium Acetate (Phoslo) 1,334 mg PO TIDCC [facility] Last Admin: 10/31/17 18:05 Dose: 1,334 mg Epoetin Pepe (Procrit) 10,000 unit IV MWF [facility] Last Admin: 10/31/17 10:30 Dose: 10,000 unit Heparin Sodium (Porcine) (Heparin) 5,000 units SC Q8 [facility] Last Admin: 10/31/17 21:38 Dose: 5,000 units Lactulose (Enulose) 20 gm PO HS PRN PRN Reason: Constipation Midodrine (Proamatine) 10 mg PO TID [facility] Last Admin: 10/31/17 18:06 Dose: 10 mg Rosuvastatin Calcium (Crestor) 10 mg PO HS [facility] Last Admin: 10/31/17 21:38 Dose: 10 mg Tamsulosin HCl (Flomax) 0.4 mg PO DAILY [facility] Last Admin: 10/31/17 14:00 Dose: 0.4 mg Vitamin B Complex/Vit C/Folic Acid (Nephro-Aleksandra) 1 tab PO DAILY [facility] Last Admin: 10/31/17 14:00 Dose: 1 tab - Labs Labs: 10/30/17 06:12 10/30/17 06:12 PT 13.9 SECONDS (9.7-12.2) H 10/24/17 06:20 INR 1.2 10/24/17 06:20 APTT 57 SECONDS (21-34) H D 10/30/17 06:12 - Constitutional Appears: No Acute Distress, Cachectic, Chronically Ill - Head Exam Head Exam: NORMAL INSPECTION - Eye Exam Eye Exam: EOMI, PERRL - ENT Exam ENT Exam: Normal Oropharynx - Neck Exam Neck Exam: Normal Inspection - Respiratory Exam Respiratory Exam: Clear to Ausculation Bilateral - Cardiovascular Exam Cardiovascular Exam: REGULAR RHYTHM, +S1, +S2 (PERMANENT PACEMAKER LEFT ANTERIOR CHEST WITH DRESSING IN PLACE. lIFEvEST ON.) - GI/Abdominal Exam GI & Abdominal Exam: Soft, Normal Bowel Sounds - Extremities Exam Extremities Exam: Normal Capillary Refill (SKIN DRY AND HYPERPIGMENTED.). absent: Calf Tenderness, Pedal Edema - Neurological Exam Neurological Exam: Abnormal Gait, Awake, CN II-XII Intact, Oriented x3 - Psychiatric Exam Psychiatric exam: Normal Mood - Skin Skin Exam: Dry, Normal Color, Warm Assessment and Plan (1) Bradycardia Assessment & Plan: PATIENT STATUS POST DUAL-CHAMBER PACEMAKER. lIFEvEST ON. rHYTHM PLACED Status: Acute (2) UTI (urinary tract infection) Assessment & Plan: PATIENT HAS CHRONIC MITCHELL. REPEAT URINE CULTURES NEGATIVE TO DATE. DC CONTACT PRECAUTIONS. Status: Acute (3) Acute urinary retention Assessment & Plan: PATIENT HAS CHRONIC Mitchell. Status: Acute (4) Obstructed Mitchell catheter Status: Acute (5) Renal failure, acute on chronic Status: Acute (6) Cachexia Assessment & Plan: CARDIAC CACHEXIA. NUTRITIONAL CACHEXIA. DIETITIAN TO SEE THE PATIENT. Status: Acute (7) Cardiomyopathy Status: Acute (8) Benign prostatic hyperplasia Status: Acute (9) Hepatitis C antibody test positive Assessment & Plan: PATIENT'S VIRAL LOAD FOR HEPATITIS c UNDETECTABLE. lIVER FUNCTION TESTS NORMAL. fOLLOW-UP VIRAL LOAD hcv rna pcr QUANTITATIVE LEVELS IN 6 MONTHS Status: Acute (10) DVT of axillary vein, acute left Status: Acute (11) Gait instability Assessment & Plan: patient needs PT AT BEDSIDE DAILY Status: Acute
[2017-11-01] MEDS: Multivitamin Vitamin B Complex (Nephro-Vite) Tab PO SCH (09:16)
--- NOTE | 2017-11-01 10:55 | CP.PCM.PN ---
Subjective - Date & Time of Evaluation Date of Evaluation: 11/01/17 Time of Evaluation: 10:52 - Subjective Subjective: Stable dialysis 10/31 UF 1500ml- well tolerated 10/31 Same c/o MAYES Objective - Vital Signs/Intake and Output Vital Signs (last 24 hours): Temp Pulse Resp BP Pulse Ox 98.0 F 60 20 107/53 L 97 11/01/17 07:40 11/01/17 07:40 11/01/17 07:40 11/01/17 07:40 11/01/17 07:40 Intake and Output: 11/01/17 11/01/17 06:59 18:59 Intake Total 700 Output Total 50 Balance 650 - Medications Medications: Current Medications Amiodarone HCl (Cordarone) 400 mg PO BID [facility] Last Admin: 11/01/17 09:16 Dose: 400 mg Aspirin (Aspirin Chewable) 81 mg PO DAILY [facility] Last Admin: 11/01/17 09:17 Dose: 81 mg Calcium Acetate (Phoslo) 1,334 mg PO TIDCC [facility] Last Admin: 11/01/17 09:17 Dose: 1,334 mg Epoetin Pepe (Procrit) 10,000 unit IV MWF [facility] Last Admin: 10/31/17 10:30 Dose: 10,000 unit Heparin Sodium (Porcine) (Heparin) 5,000 units SC Q8 [facility] Last Admin: 11/01/17 06:04 Dose: 5,000 units Lactulose (Enulose) 20 gm PO HS PRN PRN Reason: Constipation Midodrine (Proamatine) 10 mg PO TID [facility] Last Admin: 10/31/17 18:06 Dose: 10 mg Rosuvastatin Calcium (Crestor) 10 mg PO HS [facility] Last Admin: 10/31/17 21:38 Dose: 10 mg Tamsulosin HCl (Flomax) 0.4 mg PO DAILY [facility] Last Admin: 10/31/17 14:00 Dose: 0.4 mg Vitamin B Complex/Vit C/Folic Acid (Nephro-Aleksandra) 1 tab PO DAILY [facility] Last Admin: 11/01/17 09:16 Dose: 1 tab - Labs Labs: 10/30/17 06:12 10/30/17 06:12 PT 13.9 SECONDS (9.7-12.2) H 10/24/17 06:20 INR 1.2 10/24/17 06:20 APTT 57 SECONDS (21-34) H D 10/30/17 06:12 - Constitutional Appears: Non-toxic, Chronically Ill - Head Exam Head Exam: ATRAUMATIC, NORMAL INSPECTION - Eye Exam Eye Exam: EOMI. absent: Normal appearance - Neck Exam Neck Exam: Normal Inspection. absent: Tenderness - Respiratory Exam Respiratory Exam: Rales, NORMAL BREATHING PATTERN - Cardiovascular Exam Cardiovascular Exam: REGULAR RHYTHM, +S1 - GI/Abdominal Exam GI & Abdominal Exam: Soft. absent: Tenderness - Extremities Exam Extremities Exam: absent: Pedal Edema, Tenderness - Neurological Exam Neurological Exam: Alert, CN II-XII Intact - Skin Skin Exam: Dry, Warm Assessment and Plan (1) CKD (chronic kidney disease) stage 5, GFR less than 15 ml/min Status: Acute (2) Acute urinary retention Status: Acute (3) Obstructed Beck catheter Status: Acute (4) Cardiomyopathy Status: Acute (5) Hepatitis C antibody positive in blood Status: Acute (6) VRE (vancomycin resistant enterococcus) culture positive Status: Acute (7) ESRD (end stage renal disease) on dialysis Status: Acute (8) Hepatitis C antibody test positive Status: Acute - Assessment and Plan (Free Text) Plan: Dialysis MWF- try to increase UF goal if pt permits Await further cardiac plans
--- NOTE | 2017-11-01 13:10 | CP.PCM.PN ---
Subjective - Date & Time of Evaluation Date of Evaluation: 11/01/17 Time of Evaluation: 13:10 - Subjective Subjective: NO NEW DEVELOPMENT ON HD FOR [place]O Objective - Vital Signs/Intake and Output Vital Signs (last 24 hours): Temp Pulse Resp BP Pulse Ox 98.0 F 60 20 107/53 L 97 11/01/17 07:40 11/01/17 07:40 11/01/17 07:40 11/01/17 07:40 11/01/17 07:40 Intake and Output: 11/01/17 11/01/17 11:59 23:59 Intake Total 100 Output Total 50 Balance 50 - Medications Medications: Current Medications Amiodarone HCl (Cordarone) 400 mg PO BID [facility] Last Admin: 11/01/17 09:16 Dose: 400 mg Aspirin (Aspirin Chewable) 81 mg PO DAILY [facility] Last Admin: 11/01/17 09:17 Dose: 81 mg Calcium Acetate (Phoslo) 1,334 mg PO TIDCC [facility] Last Admin: 11/01/17 09:17 Dose: 1,334 mg Epoetin Pepe (Procrit) 10,000 unit IV MWF [facility] Last Admin: 10/31/17 10:30 Dose: 10,000 unit Heparin Sodium (Porcine) (Heparin) 5,000 units SC Q8 [facility] Last Admin: 11/01/17 06:04 Dose: 5,000 units Lactulose (Enulose) 20 gm PO HS PRN PRN Reason: Constipation Midodrine (Proamatine) 10 mg PO TID [facility] Last Admin: 11/01/17 11:34 Dose: 10 mg Rosuvastatin Calcium (Crestor) 10 mg PO HS [facility] Last Admin: 10/31/17 21:38 Dose: 10 mg Tamsulosin HCl (Flomax) 0.4 mg PO DAILY [facility] Last Admin: 11/01/17 11:34 Dose: 0.4 mg Vitamin B Complex/Vit C/Folic Acid (Nephro-Aleksandra) 1 tab PO DAILY [facility] Last Admin: 11/01/17 09:16 Dose: 1 tab - Labs Labs: 10/30/17 06:12 10/30/17 06:12 PT 13.9 SECONDS (9.7-12.2) H 10/24/17 06:20 INR 1.2 10/24/17 06:20 APTT 57 SECONDS (21-34) H D 10/30/17 06:12
[2017-11-02 11:22] LABS: BASO % 1.1 % (0.0-2.0); EOS # 0.1 K/uL (0.0-0.7); EOS % 1.8 % (0.0-4.0); HEMOGLOBIN 9.6 g/dL (12.0-18.0); LYMPH # 0.7 K/uL (1.0-4.3); LYMPH % 16.3 % (20.0-40.0); MEAN CELL VOLUME 96.4 fL (80.0-94.0); MEAN CORPUSCULAR HEMOGLOBIN 31.5 pg (27.0-31.0); MEAN CORPUSCULAR HGB CONC 32.7 g/dL (33.0-37.0); MEAN PLATELET VOLUME 10.2 fL (7.2-11.7); MONO # 0.4 K/uL (0.0-0.8); MONO % 7.7 % (0.0-10.0); NEUT # 3.3 K/uL (1.8-7.0); NEUT % 73.1 % (50.0-75.0); RBC 3.03 Mil/uL (4.40-5.90); WHITE BLOOD COUNT 4.6 K/uL (4.8-10.8)
[2017-11-02 11:38] LABS: ALB/GLOB RATIO 0.8 (1.0-2.1); ALBUMIN 3.1 g/dL (3.5-5.0); CALCIUM 7.4 mg/dl (8.6-10.4); MAGNESIUM 1.7 mg/dL (1.6-2.3)
[2017-11-02] MEDS: Epoetin Alfa 10,000 unit/ml Dialysis IV SCH (12:47)
--- NOTE | 2017-11-02 13:17 | CP.PCM.PN ---
Subjective - Date & Time of Evaluation Date of Evaluation: 11/02/17 Time of Evaluation: 13:14 - Subjective Subjective: Seen at dialysis; alert; BP stable Still insisting on decreasing UF goal appears depressed- does not want treatment Hg decreased- on ESAs- will check Fe stores Objective - Vital Signs/Intake and Output Vital Signs (last 24 hours): Temp Pulse Resp BP Pulse Ox 97.6 F 71 16 101/53 L 95 11/02/17 13:00 11/02/17 10:30 11/02/17 13:00 11/02/17 13:00 11/02/17 13:00 Intake and Output: 11/02/17 11/02/17 06:59 18:59 Output Total 300 Balance -300 - Medications Medications: Current Medications Amiodarone HCl (Cordarone) 400 mg PO BID [facility] Last Admin: 11/02/17 10:20 Dose: Not Given Aspirin (Aspirin Chewable) 81 mg PO DAILY [facility] Last Admin: 11/01/17 09:17 Dose: 81 mg Calcium Acetate (Phoslo) 1,334 mg PO TIDCC [facility] Last Admin: 11/02/17 12:13 Dose: Not Given Epoetin Pepe (Procrit) 10,000 unit IV MWF [facility] Last Admin: 11/02/17 12:47 Dose: 10,000 unit Heparin Sodium (Porcine) (Heparin) 5,000 units SC Q8 [facility] Last Admin: 11/02/17 05:44 Dose: 5,000 units Lactulose (Enulose) 20 gm PO HS PRN PRN Reason: Constipation Midodrine (Proamatine) 10 mg PO TID [facility] Last Admin: 11/02/17 09:27 Dose: Not Given Rosuvastatin Calcium (Crestor) 10 mg PO HS [facility] Last Admin: 11/01/17 23:01 Dose: Not Given Tamsulosin HCl (Flomax) 0.4 mg PO DAILY [facility] Last Admin: 11/01/17 11:34 Dose: 0.4 mg Vitamin B Complex/Vit C/Folic Acid (Nephro-Aleksandra) 1 tab PO DAILY [facility] Last Admin: 11/01/17 09:16 Dose: 1 tab - Labs Labs: 11/02/17 11:16 11/02/17 11:16 PT 13.9 SECONDS (9.7-12.2) H 01/03/18 06:20 INR 1.2 10/24/17 06:20 APTT 57 SECONDS (21-34) H D 10/30/17 06:12 - Constitutional Appears: No Acute Distress, Chronically Ill - Head Exam Head Exam: ATRAUMATIC, NORMAL INSPECTION - Eye Exam Eye Exam: EOMI, Normal appearance - Neck Exam Neck Exam: Normal Inspection. absent: Tenderness - Respiratory Exam Respiratory Exam: Clear to Ausculation Bilateral, NORMAL BREATHING PATTERN - Cardiovascular Exam Cardiovascular Exam: REGULAR RHYTHM, +S1 - GI/Abdominal Exam GI & Abdominal Exam: Soft. absent: Tenderness - Extremities Exam Extremities Exam: Normal Inspection. absent: Tenderness - Neurological Exam Neurological Exam: Alert, CN II-XII Intact - Psychiatric Exam Psychiatric exam: Anxious, Depressed - Skin Skin Exam: Dry, Warm Assessment and Plan (1) CKD (chronic kidney disease) stage 5, GFR less than 15 ml/min Status: Acute (2) Acute urinary retention Status: Acute (3) Obstructed Beck catheter Status: Acute (4) Cardiomyopathy Status: Acute (5) Hepatitis C antibody positive in blood Status: Acute (6) VRE (vancomycin resistant enterococcus) culture positive Status: Acute (7) ESRD (end stage renal disease) on dialysis Status: Acute (8) Hepatitis C antibody test positive Status: Acute - Assessment and Plan (Free Text) Plan: Still try to UF 1500ml with HD Check iron stores- continue ESAs Unclear if further cardiac treatment needed
--- NOTE | 2017-11-02 13:59 | CP.PCM.PN ---
Subjective - Date & Time of Evaluation Date of Evaluation: 11/02/17 Time of Evaluation: 13:58 - Subjective Subjective: ARGUMENTATIVE AND DECLINING FULL DIALYSIS AND THEN C/O SOB BP STABLE FOR REHAB Objective - Vital Signs/Intake and Output Vital Signs (last 24 hours): Temp Pulse Resp BP Pulse Ox 97.6 F 71 16 101/53 L 95 11/02/17 13:00 11/02/17 10:30 11/02/17 13:00 11/02/17 13:00 11/02/17 13:00 Intake and Output: 11/02/17 11/02/17 11:59 23:59 Output Total 300 Balance -300 - Medications Medications: Current Medications Amiodarone HCl (Cordarone) 400 mg PO BID [facility] Last Admin: 11/02/17 10:20 Dose: Not Given Aspirin (Aspirin Chewable) 81 mg PO DAILY [facility] Last Admin: 11/01/17 09:17 Dose: 81 mg Calcium Acetate (Phoslo) 1,334 mg PO TIDCC [facility] Last Admin: 11/02/17 12:13 Dose: Not Given Epoetin Pepe (Procrit) 10,000 unit IV MWF [facility] Last Admin: 11/02/17 12:47 Dose: 10,000 unit Heparin Sodium (Porcine) (Heparin) 5,000 units SC Q8 [facility] Last Admin: 11/02/17 05:44 Dose: 5,000 units Lactulose (Enulose) 20 gm PO HS PRN PRN Reason: Constipation Midodrine (Proamatine) 10 mg PO TID [facility] Last Admin: 11/02/17 09:27 Dose: Not Given Rosuvastatin Calcium (Crestor) 10 mg PO HS [facility] Last Admin: 11/01/17 23:01 Dose: Not Given Tamsulosin HCl (Flomax) 0.4 mg PO DAILY [facility] Last Admin: 11/01/17 11:34 Dose: 0.4 mg Vitamin B Complex/Vit C/Folic Acid (Nephro-Aleksandra) 1 tab PO DAILY [facility] Last Admin: 11/01/17 09:16 Dose: 1 tab - Labs Labs: 11/02/17 11:16 11/02/17 11:16 PT 13.9 SECONDS (9.7-12.2) H 10/24/17 06:20 INR 1.2 10/24/17 06:20 APTT 57 SECONDS (21-34) H D 10/30/17 06:12
[2017-11-02] MEDS: Multivitamin Vitamin B Complex (Nephro-Vite) Tab PO SCH (14:37)
[2017-11-03] MEDS: Multivitamin Vitamin B Complex (Nephro-Vite) Tab PO SCH (10:12)
--- NOTE | 2017-11-03 12:02 | CP.PCM.PN ---
Subjective - Date & Time of Evaluation Date of Evaluation: 11/03/17 Time of Evaluation: 12:00 - Subjective Subjective: no acute complaints tolerating HD, although cuts time chronic sob brother at bedside sanon dependent appetite ok no chest pain no cough no abdominal pain no rash no fever no headache Objective - Vital Signs/Intake and Output Vital Signs (last 24 hours): Temp Pulse Resp BP Pulse Ox 98.0 F 60 20 109/54 L 95 11/03/17 08:00 11/03/17 08:00 11/03/17 08:00 11/03/17 08:00 11/03/17 08:00 Intake and Output: 11/03/17 11/03/17 06:59 18:59 Output Total 325 Balance -325 - Medications Medications: Current Medications Amiodarone HCl (Cordarone) 400 mg PO BID [facility] Last Admin: 11/03/17 10:12 Dose: 400 mg Aspirin (Aspirin Chewable) 81 mg PO DAILY [facility] Last Admin: 11/03/17 10:12 Dose: 81 mg Calcium Acetate (Phoslo) 1,334 mg PO TIDCC [facility] Last Admin: 11/03/17 09:00 Dose: 1,334 mg Epoetin Pepe (Procrit) 10,000 unit IV MWF [facility] Last Admin: 11/02/17 12:47 Dose: 10,000 unit Heparin Sodium (Porcine) (Heparin) 5,000 units SC Q8 [facility] Last Admin: 11/03/17 05:19 Dose: Not Given Lactulose (Enulose) 20 gm PO HS PRN PRN Reason: Constipation Midodrine (Proamatine) 10 mg PO TID [facility] Last Admin: 11/03/17 10:12 Dose: 10 mg Rosuvastatin Calcium (Crestor) 10 mg PO HS [facility] Last Admin: 11/02/17 22:53 Dose: 10 mg Tamsulosin HCl (Flomax) 0.4 mg PO DAILY [facility] Last Admin: 11/03/17 10:10 Dose: Not Given Vitamin B Complex/Vit C/Folic Acid (Nephro-Aleksandra) 1 tab PO DAILY [facility] Last Admin: 11/03/17 10:12 Dose: 1 tab - Labs Labs: 11/02/17 11:16 11/02/17 11:16 PT 13.9 SECONDS (9.7-12.2) H 01/03/18 06:20 INR 1.2 10/24/17 06:20 APTT 57 SECONDS (21-34) H D 10/30/17 06:12 - Constitutional Appears: Non-toxic, Chronically Ill - Head Exam Head Exam: ATRAUMATIC, NORMAL INSPECTION - Eye Exam Eye Exam: EOMI, Normal appearance - ENT Exam ENT Exam: Mucous Membranes Moist - Neck Exam Neck Exam: Full ROM. absent: Lymphadenopathy - Respiratory Exam Respiratory Exam: Decreased Breath Sounds. absent: Accessory Muscle Use - Cardiovascular Exam Cardiovascular Exam: REGULAR RHYTHM. absent: Rubs - GI/Abdominal Exam GI & Abdominal Exam: Soft. absent: Tenderness - Neurological Exam Neurological Exam: Alert, Awake Assessment and Plan - Assessment and Plan (Free Text) Assessment: maint HD reviewed fluid restriction requests cardiology re-evaluation
--- NOTE | 2017-11-03 14:03 | CP.PCM.PN ---
Subjective - Date & Time of Evaluation Date of Evaluation: 11/03/17 Time of Evaluation: 14:02 - Subjective Subjective: TOLERATING DIALYSIS CARDIAC STATUS STABLE REF TO REHAB Objective - Vital Signs/Intake and Output Vital Signs (last 24 hours): Temp Pulse Resp BP Pulse Ox 98.0 F 60 20 109/54 L 95 11/03/17 08:00 11/03/17 08:00 11/03/17 08:00 11/03/17 08:00 11/03/17 08:00 Intake and Output: 11/03/17 11/03/17 11:59 23:59 Output Total 100 Balance -100 - Medications Medications: Current Medications Amiodarone HCl (Cordarone) 400 mg PO BID [facility] Last Admin: 11/03/17 10:12 Dose: 400 mg Aspirin (Aspirin Chewable) 81 mg PO DAILY [facility] Last Admin: 11/03/17 10:12 Dose: 81 mg Calcium Acetate (Phoslo) 1,334 mg PO TIDCC [facility] Last Admin: 11/03/17 09:00 Dose: 1,334 mg Epoetin Pepe (Procrit) 10,000 unit IV MWF [facility] Last Admin: 11/02/17 12:47 Dose: 10,000 unit Heparin Sodium (Porcine) (Heparin) 5,000 units SC Q8 [facility] Last Admin: 11/03/17 05:19 Dose: Not Given Lactulose (Enulose) 20 gm PO HS PRN PRN Reason: Constipation Midodrine (Proamatine) 10 mg PO TID [facility] Last Admin: 11/03/17 10:12 Dose: 10 mg Rosuvastatin Calcium (Crestor) 10 mg PO HS [facility] Last Admin: 11/02/17 22:53 Dose: 10 mg Tamsulosin HCl (Flomax) 0.4 mg PO DAILY [facility] Last Admin: 11/03/17 10:10 Dose: Not Given Vitamin B Complex/Vit C/Folic Acid (Nephro-Aleksandra) 1 tab PO DAILY [facility] Last Admin: 11/03/17 10:12 Dose: 1 tab - Labs Labs: 11/02/17 11:16 11/02/17 11:16 PT 13.9 SECONDS (9.7-12.2) H 10/24/17 06:20 INR 1.2 10/24/17 06:20 APTT 57 SECONDS (21-34) H D 10/30/17 06:12
--- NOTE | 2017-11-03 20:15 | CP.PCM.PN ---
Subjective - Date & Time of Evaluation Date of Evaluation: 11/03/17 Time of Evaluation: 20:15 - Subjective Subjective: afebrile,BP improved. patient on LifeVest as per cardiology S/P DUAL CHAMBER PPM INSERTION 10/26/17 FEELS WELL. OFF ANTIBIOTICS. Gait instability. CHRONIC Mitchell INSERTION SECONDARY TO URINARY RETENTION AND ENLARGED PROSTATE. SURGICAL INTERVENTION POSTPONED BECAUSE OF HIS CARDIOMYOPATHY. Objective - Vital Signs/Intake and Output Vital Signs (last 24 hours): Temp Pulse Resp BP Pulse Ox 97.7 F 60 20 102/61 94 L 11/03/17 15:00 11/03/17 15:00 11/03/17 15:00 11/03/17 15:00 11/03/17 15:00 - Medications Medications: Current Medications Amiodarone HCl (Cordarone) 400 mg PO BID [facility] Last Admin: 11/03/17 17:43 Dose: 400 mg Calcium Acetate (Phoslo) 1,334 mg PO TIDCC [facility] Last Admin: 11/03/17 17:43 Dose: 1,334 mg Epoetin Pepe (Procrit) 10,000 unit IV MWF [facility] Last Admin: 11/02/17 12:47 Dose: 10,000 unit Heparin Sodium (Porcine) (Heparin) 5,000 units SC Q8 [facility] Last Admin: 11/03/17 14:38 Dose: Not Given Lactulose (Enulose) 20 gm PO HS PRN PRN Reason: Constipation Midodrine (Proamatine) 10 mg PO TID [facility] Last Admin: 11/03/17 17:43 Dose: 10 mg Tamsulosin HCl (Flomax) 0.4 mg PO DAILY [facility] Last Admin: 11/03/17 10:10 Dose: Not Given Vitamin B Complex/Vit C/Folic Acid (Nephro-Aleksandra) 1 tab PO DAILY [facility] Last Admin: 11/03/17 10:12 Dose: 1 tab - Labs Labs: 11/02/17 11:16 11/02/17 11:16 PT 13.9 SECONDS (9.7-12.2) H 10/24/17 06:20 INR 1.2 10/24/17 06:20 APTT 57 SECONDS (21-34) H D 10/30/17 06:12 - Constitutional Appears: No Acute Distress, Cachectic, Chronically Ill - Head Exam Head Exam: NORMAL INSPECTION - Eye Exam Eye Exam: EOMI, PERRL - ENT Exam ENT Exam: Normal Oropharynx - Respiratory Exam Respiratory Exam: Clear to Ausculation Bilateral - Cardiovascular Exam Cardiovascular Exam: REGULAR RHYTHM, +S1, +S2 - Extremities Exam Extremities Exam: absent: Calf Tenderness, Pedal Edema - Neurological Exam Neurological Exam: Alert, Awake, CN II-XII Intact - Skin Skin Exam: Normal Color, Warm Assessment and Plan (1) Bradycardia Assessment & Plan: PATIENT HAS A PERMANENT PACEMAKER DUAL CHAMBER. aLSO ON lIFEvEST. aS PER CARDIOLOGY Status: Acute (2) UTI (urinary tract infection) Assessment & Plan: REPEAT URINE CULTURES NEGATIVE. cHRONIC Mitchell INSERTION PER HIS gu. oFF ANTIBIOTICS. sTABLE. RECALL IF NEEDED . wE WILL SIGN OFF FOR NOW. Status: Acute (3) Acute urinary retention Status: Acute (4) Obstructed Mitchell catheter Status: Acute (5) Renal failure, acute on chronic Status: Acute (6) Cachexia Status: Acute (7) Cardiomyopathy Status: Acute (8) Benign prostatic hyperplasia Assessment & Plan: PATIENT HAS A CHRONIC Mitchell. wILL FOLLOW-UP WITH FOR HIS BENIGN PROSTATE HYPERTROPHY Status: Acute (9) Hepatitis C antibody test positive Status: Acute (10) DVT of axillary vein, acute left Status: Acute (11) Gait instability Status: Acute
[2017-11-04] MEDS: Multivitamin Vitamin B Complex (Nephro-Vite) Tab PO SCH (09:49)
--- NOTE | 2017-11-04 16:16 | CP.PCM.PN ---
Subjective - Date & Time of Evaluation Date of Evaluation: 11/04/17 Time of Evaluation: 16:14 - Subjective Subjective: LAST NITE HAD DISCUSSION ABOUT DISPOSITION PT. DECLARES THAT IF MATTEO DOES MOT ACCEPT HIM THEN HE WILL GO HOME Objective - Vital Signs/Intake and Output Vital Signs (last 24 hours): Temp Pulse Resp BP Pulse Ox 97.8 F 60 20 112/47 L 96 11/04/17 15:00 11/04/17 15:00 11/04/17 15:00 11/04/17 15:00 11/04/17 15:00 Intake and Output: 11/04/17 11/04/17 11:59 23:59 Intake Total 500 Output Total 200 100 Balance -200 400 - Medications Medications: Current Medications Amiodarone HCl (Cordarone) 400 mg PO BID [facility] Last Admin: 11/04/17 09:49 Dose: 400 mg Calcium Acetate (Phoslo) 1,334 mg PO TIDCC [facility] Last Admin: 11/04/17 13:08 Dose: 1,334 mg Epoetin Pepe (Procrit) 10,000 unit IV MWF [facility] Last Admin: 11/02/17 12:47 Dose: 10,000 unit Heparin Sodium (Porcine) (Heparin) 5,000 units SC Q8 [facility] Last Admin: 11/04/17 13:09 Dose: Not Given Lactulose (Enulose) 20 gm PO HS PRN PRN Reason: Constipation Midodrine (Proamatine) 10 mg PO TID [facility] Last Admin: 11/04/17 13:08 Dose: Not Given Tamsulosin HCl (Flomax) 0.4 mg PO DAILY [facility] Last Admin: 11/04/17 09:49 Dose: 0.4 mg Vitamin B Complex/Vit C/Folic Acid (Nephro-Aleksandra) 1 tab PO DAILY [facility] Last Admin: 11/04/17 09:49 Dose: 1 tab - Labs Labs: 11/02/17 11:16 11/02/17 11:16 PT 13.9 SECONDS (9.7-12.2) H 10/24/17 06:20 INR 1.2 10/24/17 06:20 APTT 57 SECONDS (21-34) H D 10/30/17 06:12
[2017-11-05 09:17] LABS: ABG ALLEN TEST POS; ARTERIAL BLOOD GAS HCO3 21.4 mmol/L (21-28); ARTERIAL BLOOD GAS HEMOGLOBIN 10.8 g/dL (11.7-17.4); ARTERIAL BLOOD GAS O2 SAT 85.5 % (95-98); ARTERIAL BLOOD GAS PCO2 28 mm/Hg (35-45); ARTERIAL BLOOD GAS PH 7.44 (7.35-7.45); ARTERIAL BLOOD GAS PO2 48 mm/Hg (80-100); ARTERIAL BLOOD GAS TCO2 19.9 mmol/L (22-28)
[2017-11-05] MEDS ORDERED: Ferric Sodium Gluconat Complex 62.5 mg/5 ml Vial IVPB SCH (10:00)
--- NOTE | 2017-11-05 10:00 | RAD ---
Chest x-ray single frontal view History: Shortness of breath. Comparison: 10/20/2017 Findings: Right central venous catheter in tip stable position. Left-sided pacemaker. Persistent diffuse confluent bilateral patchy airspace opacities most prominent in the left midlung zone and bilateral lung bases. Small bilateral pleural effusions. Linear atelectasis at the right lung base. Is Biapical pleural thickening with upper lobe granulomatous changes. Cardiomegaly. Degenerative changes in the spine and shoulders. Impression: No significant interval change.
[2017-11-05] MEDS: Multivitamin Vitamin B Complex (Nephro-Vite) Tab PO SCH (10:16)
--- NOTE | 2017-11-05 11:53 | CP.PCM.PN ---
Subjective - Date & Time of Evaluation Date of Evaluation: 11/05/17 Time of Evaluation: 11:51 - Subjective Subjective: Seen on dialysis CXR show increased CHF; pulse ox has been very low Pt c/o visual hallucinations and has had asterixis Has refused adequate UF and time on machine- explained to pt again necessity of adequate dialysis and fluid removal Objective - Vital Signs/Intake and Output Vital Signs (last 24 hours): Temp Pulse Resp BP Pulse Ox 98.4 F 63 24 104/60 92 L 11/05/17 10:42 11/05/17 10:25 11/05/17 10:42 11/05/17 10:57 11/05/17 10:42 Intake and Output: 11/05/17 11/05/17 06:59 18:59 Intake Total 280 Output Total 100 Balance 180 - Medications Medications: Current Medications Amiodarone HCl (Cordarone) 400 mg PO BID [facility] Last Admin: 11/05/17 10:11 Dose: 400 mg Calcium Acetate (Phoslo) 1,334 mg PO TIDCC [facility] Last Admin: 11/05/17 10:16 Dose: Not Given Epoetin Pepe (Procrit) 10,000 unit IV MWF [facility] Last Admin: 11/02/17 12:47 Dose: 10,000 unit Heparin Sodium (Porcine) (Heparin) 5,000 units SC Q8 [facility] Last Admin: 11/04/17 22:36 Dose: Not Given Lactulose (Enulose) 20 gm PO HS PRN PRN Reason: Constipation Midodrine (Proamatine) 10 mg PO TID [facility] Last Admin: 11/05/17 10:18 Dose: Not Given Tamsulosin HCl (Flomax) 0.4 mg PO DAILY [facility] Last Admin: 11/05/17 10:18 Dose: Not Given Vitamin B Complex/Vit C/Folic Acid (Nephro-Aleksandra) 1 tab PO DAILY [facility] Last Admin: 11/05/17 10:16 Dose: 1 tab - Labs Labs: 11/02/17 11:16 11/02/17 11:16 PT 13.9 SECONDS (9.7-12.2) H 10/24/17 06:20 INR 1.2 10/24/17 06:20 APTT 57 SECONDS (21-34) H D 10/30/17 06:12 - Constitutional Appears: In Acute Distress, Chronically Ill - Head Exam Head Exam: ATRAUMATIC, NORMAL INSPECTION - Eye Exam Eye Exam: EOMI, Normal appearance - Neck Exam Neck Exam: Normal Inspection. absent: Tenderness - Respiratory Exam Respiratory Exam: Rales, Respiratory Distress - GI/Abdominal Exam GI & Abdominal Exam: Soft. absent: Tenderness - Extremities Exam Extremities Exam: Normal Inspection. absent: Tenderness - Neurological Exam Neurological Exam: Awake, CN II-XII Intact - Skin Skin Exam: Dry, Warm Assessment and Plan (1) CKD (chronic kidney disease) stage 5, GFR less than 15 ml/min Status: Acute (2) Acute urinary retention Status: Acute (3) Obstructed Beck catheter Status: Acute (4) Cardiomyopathy Status: Acute (5) Hepatitis C antibody positive in blood Status: Acute (6) VRE (vancomycin resistant enterococcus) culture positive Status: Acute (7) ESRD (end stage renal disease) on dialysis Status: Acute (8) Hepatitis C antibody test positive Status: Acute (9) CHF (congestive heart failure) Status: Acute (10) Metabolic encephalopathy Status: Acute - Assessment and Plan (Free Text) Plan: Advised strongly need for adequate fluid removal and time on machine Attempt UF 2L fluid removal Cardio follow up
--- NOTE | 2017-11-05 12:55 | CP.PCM.PN ---
Subjective - Date & Time of Evaluation Date of Evaluation: 11/05/17 Time of Evaluation: 12:53 - Subjective Subjective: INSPITE OF STABLE BP , PT. IS REFUSING COMPLETE DIALYSIS THIS IS LEADING TO CHF AND HYPOEXEMIA AND REFUSING TO USE O2 . WILL RENDER TREATMENT WHAT IS POSSIUBLE Objective - Vital Signs/Intake and Output Vital Signs (last 24 hours): Temp Pulse Resp BP Pulse Ox 98.4 F 63 24 108/51 L 92 L 11/05/17 10:42 11/05/17 10:25 11/05/17 10:42 11/05/17 11:57 11/05/17 10:42 - Medications Medications: Current Medications Amiodarone HCl (Cordarone) 400 mg PO BID [facility] Last Admin: 11/05/17 10:11 Dose: 400 mg Calcium Acetate (Phoslo) 1,334 mg PO TIDCC [facility] Last Admin: 11/05/17 10:16 Dose: Not Given Epoetin Pepe (Procrit) 10,000 unit IV MWF [facility] Last Admin: 11/02/17 12:47 Dose: 10,000 unit Heparin Sodium (Porcine) (Heparin) 5,000 units SC Q8 [facility] Last Admin: 11/04/17 22:36 Dose: Not Given Ferric Sodium Gluconate Complex 125 mg/ Sodium Chloride 110 mls @ 110 mls/hr IVPB DAILY [facility] Stop: 11/13/17 14:31 Lactulose (Enulose) 20 gm PO HS PRN PRN Reason: Constipation Midodrine (Proamatine) 10 mg PO TID [facility] Last Admin: 11/05/17 10:18 Dose: Not Given Tamsulosin HCl (Flomax) 0.4 mg PO DAILY [facility] Last Admin: 11/05/17 10:18 Dose: Not Given Vitamin B Complex/Vit C/Folic Acid (Nephro-Aleksandra) 1 tab PO DAILY [facility] Last Admin: 11/05/17 10:16 Dose: 1 tab - Labs Labs: 11/02/17 11:16 11/02/17 11:16 PT 13.9 SECONDS (9.7-12.2) H 10/24/17 06:20 INR 1.2 10/24/17 06:20 APTT 57 SECONDS (21-34) H D 10/30/17 06:12
[2017-11-05] MEDS: Ferric Sodium Gluconat Complex 125 MG in Sodium Chloride 0.9% 100 ML IVPB SCH ×2 (13:03→16:41)
[2017-11-05] MEDS: Epoetin Alfa 10,000 unit/ml Dialysis IV SCH (13:16)
[2017-11-05] MEDS ORDERED: Piperacillin/Tazobact 3.375 GM in Sodium Chloride 100 ML IVPB STA (16:30)
--- NOTE | 2017-11-05 16:56 | RAD ---
HISTORY: resp distress; hypoxic; infiltrates/effusion prior COMPARISON: Chest x-ray performed 11/05/17 at 942 hours TECHNIQUE: Chest, one view. FINDINGS: Numerous external wires, leads, and devices obscure evaluation of the underlying parenchyma. Right sided dialysis catheter re-identified. Cardiomegaly. Left-sided pacemaker. Small to moderate bilateral pleural effusions and associated consolidations. Interstitial prominence may reflect infection or edema. Biapical pleural thickening. No definite pneumothorax. Please note that chest x-ray has limited sensitivity for the detection of pulmonary masses. Degenerative changes. Osseous demineralization. IMPRESSION: Right sided dialysis catheter re-identified. Cardiomegaly. Left-sided pacemaker. Small to moderate bilateral pleural effusions and associated consolidations. Interstitial prominence may reflect infection or edema. Biapical pleural thickening.
[2017-11-05] MEDS ORDERED: Propofol 10 mg/ml 1,000 MG/100 ML VIAL IV PRN (17:08)
[2017-11-05] MEDS ORDERED: SODIUM CHLORIDE IVPB SCH (17:15)
[2017-11-05] MEDS ORDERED: PIPERACILLIN IVPB SCH (17:15)
[2017-11-05] MEDS ORDERED: TAZOBACT IVPB SCH (17:15)
--- NOTE | 2017-11-05 17:23 | CP.PCM.PN ---
Subjective - Date & Time of Evaluation Date of Evaluation: 11/05/17 Time of Evaluation: 17:23 - Subjective Subjective: EVENTS NOTED OF TODAY S/P RAPID RESPONSE TODAY PATIENT GOT DESATURATED AND HYPOXEMIC WITH A po2 OFF 48 AND OXYGEN SATURATION 83%. PATIENT HAD TO BE INTUBATED AND TRANSFERRED TO ICU. PATIENT SPIKED FEVER OF 102.5 REPORTED. PRESENTLY PATIENT ON PROPOFOL/SEDATED. CASE DISCUSSED WITH RESIDENT DR BRAN. BLOOD CULTURES AND URINE CULTURES ORDERED. PATIENT HAS CHRONIC Mitchell AND HAS HISTORY OF pSEUDOMONAS IN THE URINE. Source of fever questionable aspiration pneumonia versus sepsis PATIENT STARTED ON CEFEPIME 1 G ONCE A DAY DAILY EMPIRICALLY WHILE AWAITING CULTURES. Objective - Vital Signs/Intake and Output Vital Signs (last 24 hours): Temp Pulse Resp BP Pulse Ox 98.3 F 91 H 20 143/56 L 73 L 11/05/17 16:38 11/05/17 16:38 11/05/17 16:38 11/05/17 16:38 11/05/17 16:38 Intake and Output: 11/05/17 11/05/17 06:59 18:59 Intake Total 280 400 Output Total 100 150 Balance 180 250 - Medications Medications: Current Medications Amiodarone HCl (Cordarone) 200 mg PO BID [facility] Calcium Acetate (Phoslo) 1,334 mg PO TIDCC [facility] Last Admin: 11/05/17 14:02 Dose: Not Given Epoetin Pepe (Procrit) 10,000 unit IV MWF [facility] Last Admin: 11/05/17 13:16 Dose: 10,000 unit Heparin Sodium (Porcine) (Heparin) 5,000 units SC Q8 [facility] Last Admin: 11/05/17 14:02 Dose: Not Given Ferric Sodium Gluconate Complex 125 mg/ Sodium Chloride 110 mls @ 110 mls/hr IVPB DAILY [facility] Stop: 11/13/17 14:31 Last Admin: 11/05/17 16:41 Dose: Not Given Propofol (Diprivan) 1,000 mg in 100 mls @ 0 mls/hr IV .Q0M PRN; Protocol; Per Protocol PRN Reason: TITRATE PER MD ORDER Piperacillin Sod/Tazobactam Sod (Zosyn 2.25 Gm Iv Premix) 2.25 gm in 50 mls @ 100 mls/hr IVPB Q8H [facility] Vancomycin/Sodium Chloride (Vancomycin 1 Gm/Ns 200 Ml) 1 gm in 200 mls @ 133 mls/hr IVPB Q24H [facility] Stop: 11/10/17 19:01 Lactulose (Enulose) 20 gm PO HS PRN PRN Reason: Constipation Midodrine (Proamatine) 10 mg PO TID [facility] Last Admin: 11/05/17 14:03 Dose: Not Given Tamsulosin HCl (Flomax) 0.4 mg PO DAILY [facility] Last Admin: 11/05/17 10:18 Dose: Not Given Vitamin B Complex/Vit C/Folic Acid (Nephro-Aleksandra) 1 tab PO DAILY [facility] Last Admin: 11/05/17 10:16 Dose: 1 tab - Labs Labs: 11/02/17 11:16 11/02/17 11:16 PT 13.9 SECONDS (9.7-12.2) H 10/24/17 06:20 INR 1.2 10/24/17 06:20 APTT 57 SECONDS (21-34) H D 10/30/17 06:12 - Constitutional Appears: No Acute Distress, Cachectic, Chronically Ill - Head Exam Head Exam: ATRAUMATIC - Eye Exam Eye Exam: PERRL - ENT Exam ENT Exam: Normal Exam - Neck Exam Neck Exam: Normal Inspection - Respiratory Exam Respiratory Exam: Decreased Breath Sounds - Cardiovascular Exam Cardiovascular Exam: REGULAR RHYTHM, +S1, +S2 - GI/Abdominal Exam GI & Abdominal Exam: Soft, Normal Bowel Sounds - Extremities Exam Extremities Exam: absent: Calf Tenderness, Pedal Edema - Neurological Exam Neurological Exam: Altered (ON VENTILATOR SEDATED.) - Skin Skin Exam: Warm Assessment and Plan (1) Respiratory failure with hypoxia Assessment & Plan: patient had respiratory failure with hypoxia requiring intubation. Questionable aspiration vs exacerbation of CHF. Patient also spiked a fever of 102.5. Pancultures started on IV cefepime 1 g once a day daily.11/05/17. Follow-up chest x-ray pending intubation. Follow-up cultures to adjust antibiotics. Patient on subcutaneous heparin. Has history of left DVT -axillary vein s/p temporary pacemaker. Status: Acute (2) Bradycardia Assessment & Plan: patient has a permanent pacemaker dual chamber. Status: Acute (3) UTI (urinary tract infection) Status: Acute (4) Acute urinary retention Status: Acute (5) Obstructed Mitchell catheter Status: Acute (6) Renal failure, acute on chronic Assessment & Plan: PATIENT HAS HEMODIALYSIS CATHETER CHEST. ON HEMODIALYSIS MWF Status: Acute (7) Cachexia Status: Acute (8) Cardiomyopathy Status: Acute (9) Benign prostatic hyperplasia Status: Acute (10) Hepatitis C antibody test positive Status: Acute (11) DVT of axillary vein, acute left Status: Acute (12) Gait instability Status: Acute - Assessment and Plan (Free Text) Plan: DR DAVEY ID TO FOLLOW-UP THE PATIENT FROM 11/06/17 TO 11/12/17. PLEASE NOTIFY HIM OF ANY CHANGES IN THE STATUS OF THE PATIENT AND ALSO FOR RENEWAL OFF ANTIBIOTICS. THANK YOU.
[2017-11-05] MEDS ORDERED: Cefepime 1 GM in Sodium Chloride 0.9% 50 ML IVPB SCH (17:30)
[2017-11-05] MEDS: Propofol 10 mg/ml 1,000 MG/100 ML VIAL IV PRN (17:30)
--- NOTE | 2017-11-05 17:44 | CP.PCM.CON ---
<Krishna Brooks - Last Filed: 11/05/17 18:07> History of Present Illness - History of Present Illness History of Present Illness: CCU Consult Note HPI: 77 year old male with PMHx of BPH, urinary retention, renal failure on dialysis, CHF. Patient refuses noncompliant with dialysis. RR was called. Patient was on BiPAP w/a sat of 71. CCU consult was called. Dr. Perez saw the patient. Had him transferred to the unit where he was intubated. At that time had a fever of 102. Attending and ID was notified. Patient was started on propofol. NGT inserted. Blood cultures and urine cultures drawn. CXR ordered. PMH: BPH, urinary retention, renal failure on dialysis, CHF, arrhythmia. Patient has a lifevest PSH: Right IJ permacath Left AVF Review of Systems - Review of Systems Review of Systems: per HPI Past Patient History - Past Medical History & Family History Past Medical History?: No - Past Social History Smoking Status: Never Smoked - CARDIAC Hx Cardiac Disorders: Yes - PULMONARY Hx Respiratory Disorders: No - NEUROLOGICAL Hx Neurological Disorder: No - HEENT Hx HEENT Problems: No - RENAL Hx Chronic Kidney Disease: Yes - ENDOCRINE/METABOLIC Hx Endocrine Disorders: No - HEMATOLOGICAL/ONCOLOGICAL Hx Anemia: Yes - INTEGUMENTARY Hx Dermatological Problems: No - MUSCULOSKELETAL/RHEUMATOLOGICAL Hx Musculoskeletal Disorders: Yes Hx Falls: Yes - GASTROINTESTINAL Hx Gastrointestinal Disorders: Yes Hx Gastroesophageal Reflux: Yes Other/Comment:  - GENITOURINARY/GYNECOLOGICAL Hx Genitourinary Disorders: Yes Hx Prostate Problems: Yes Hx Urinary Tract Infection: Yes Other/Comment: hx utis-pt has indwelling sanon from halfway - PSYCHIATRIC Hx Substance Use: No - SURGICAL HISTORY Hx Surgeries: No - ANESTHESIA Hx Anesthesia: No Hx Anesthesia Reactions: No Hx Malignant Hyperthermia: No Meds Home Medications: Home Medication List Medication Instructions Recorded Confirmed Type Acetaminophen [Tylenol 325mg tab] 650 mg PO Q4 PRN tab 10/12/17 Rx Amiodarone [Cordarone] 400 mg PO BID tab 10/12/17 Rx Calcitriol [Rocaltrol] 0.5 mcg PO DAILY sgl 10/12/17 Rx Calcium Acetate [Phoslo] 667 mg PO TIDCC tab 10/12/17 Rx Famotidine [Pepcid] 20 mg PO DAILY tab 10/12/17 Rx Gentamicin 100 mg IVPB MWF #2 vial 10/12/17 Rx Midodrine [Proamatine] 2.5 mg PO TID tab 10/12/17 Rx Tamsulosin [Flomax] 0.4 mg PO DAILY cap 10/12/17 Rx Vitamin B Complex/Vit C/Folic 1 tab PO DAILY tab 10/12/17 Rx [Nephro-Aleksandra] Allergies/Adverse Reactions: Allergies Allergy/AdvReac Type Severity Reaction Status Date / Time No Known Allergies Allergy Verified 09/24/17 12:54 - Medications Medications: Current Medications Amiodarone HCl (Cordarone) 200 mg PO BID FOR[facility]LY [facility], [facility] Calcium Acetate (Phoslo) 1,334 mg PO TIDCC FOR[facility], [facility]1983 Last Admin: 11/05/17 14:02 Dose: Not Given Epoetin Pepe (Procrit) 10,000 unit IV MWF FORMERLY [facility], [facility] Last Admin: 11/05/17 13:16 Dose: 10,000 unit Heparin Sodium (Porcine) (Heparin) 5,000 units SC Q8 FOR[facility]LY [facility], [facility]1983 Last Admin: 11/05/17 14:02 Dose: Not Given Ferric Sodium Gluconate Complex 125 mg/ Sodium Chloride 110 mls @ 110 mls/hr IVPB DAILY FOR[facility], [facility]1983 Stop: 11/13/17 14:31 Last Admin: 11/05/17 16:41 Dose: Not Given Propofol (Diprivan) 1,000 mg in 100 mls @ 0 mls/hr IV .Q0M PRN; Protocol; Per Protocol PRN Reason: TITRATE PER MD ORDER Cefepime HCl 1 gm/ Sodium (Chloride) 50 mls @ 100 mls/hr IVPB Q24H [facility], [facility]1983 Lactulose (Enulose) 20 gm PO HS PRN PRN Reason: Constipation Midodrine (Proamatine) 10 mg PO TID [facility], [facility] Last Admin: 11/05/17 14:03 Dose: Not Given Tamsulosin HCl (Flomax) 0.4 mg PO DAILY [facility], [facility] Last Admin: 11/05/17 10:18 Dose: Not Given Vitamin B Complex/Vit C/Folic Acid (Nephro-Aleksandra) 1 tab PO DAILY [facility] Last Admin: 11/05/17 10:16 Dose: 1 tab Physical Exam - Constitutional Appears: In Acute Distress - Head Exam Head Exam: ATRAUMATIC, NORMAL INSPECTION, NORMOCEPHALIC - Eye Exam Eye Exam: EOMI - ENT Exam ENT Exam: Mucous Membranes Moist Additional comments: intubated - Respiratory Exam Additional comments: intubated - Cardiovascular Exam Cardiovascular Exam: REGULAR RHYTHM - GI/Abdominal Exam GI & Abdominal Exam: Normal Bowel Sounds, Soft. absent: Distended, Tenderness - Neurological Exam Neurological exam: Alert, Oriented x3 - Psychiatric Exam Psychiatric exam: Normal Affect, Normal Mood - Skin Skin Exam: Dry, Intact, Normal Color, Warm Results - Vital Signs Recent Vital Signs: Last Vital Signs Temp 98.3 F 11/05/17 16:38 Pulse 60 11/05/17 16:45 Resp 20 11/05/17 16:38 BP 143/56 L 11/05/17 16:38 Pulse Ox 73 L 11/05/17 16:38 - Labs Result Diagrams: 11/05/17 17:42 11/05/17 17:42 Labs: Laboratory Results - last 24 hr 11/05/17 11/05/17 11/05/17 09:14 12:49 12:49 Puncture Site Rba pCO2 28 L pO2 48 L HCO3 21.4 ABG pH 7.44 ABG Total CO2 19.9 L ABG O2 Saturation 85.5 L ABG Base Excess -4.1 L ABG Hemoglobin 10.8 L ABG Carboxyhemoglobin 1.8 H POC ABG HHb (Measured) 14.1 H ABG Methemoglobin 0.9 Scar Test Pos Hgb O2 Saturation 83.3 L Liter Flow 5.0 POC Glucose (mg/dL) % Saturation 3.7 L Ferritin 355.0 11/05/17 16:08 Puncture Site pCO2 pO2 HCO3 ABG pH ABG Total CO2 ABG O2 Saturation ABG Base Excess ABG Hemoglobin ABG Carboxyhemoglobin POC ABG HHb (Measured) ABG Methemoglobin Scar Test Hgb O2 Saturation Liter Flow POC Glucose (mg/dL) 191 H % Saturation Ferritin Assessment & Plan - Assessment and Plan (Free Text) Assessment: 77M w/ Respiratory distress, intubated Plan: Cardio Cards ([place]) Lifevest Amiodarone 200 PO BID Pulm on BiPAP, RR called, CCU consult and patient intubated Vent 18/450/5/80 f/u CXR Propofol Light sedation Renal Nephro ([place]) ESRD on dialysis has been noncomplinant on dialysis, refusing to finish sessions Uro (Gildardo Varela) urinary retention - flomax 0.4 PO QD ID ID (Debra) Tmax 102 f/u blood cultures f/u urine cultures F/u cxr cefepime 1g IV qd Stat CMP, CBC, PSA PPx Heparin 5000 SC Q8 PT/OT <Sandy Perez - Last Filed: 11/15/17 02:21> Meds - Medications Medications: Current Medications Acetaminophen (Tylenol 650mg/20.3ml Solution Ud) 650 mg PO Q4 PRN PRN Reason: Temperature Last Admin: 11/14/17 12:06 Dose: 650 mg Albuterol/Ipratropium (Duoneb 3 Mg/0.5 Mg (3 Ml) Ud) 3 ml INH RQ6 [facility], [facility] Last Admin: 11/15/17 02:08 Dose: 3 ml Amiodarone HCl (Cordarone) 200 mg PO BID [facility], [facility] Last Admin: 11/14/17 18:07 Dose: 200 mg Epoetin Pepe (Procrit) 10,000 unit IV MWF [facility], [facility] Last Admin: 11/14/17 15:10 Dose: 10,000 unit Cefepime HCl (Maxipime Iv 1 Gm Premix) 1 gm in 50 mls @ 100 mls/hr IVPB Q24H [facility] Last Admin: 11/14/17 18:07 Dose: 100 mls/hr Linezolid (Zyvox 600mg/300ml D5w) 600 mg in 300 mls @ 200 mls/hr IVPB Q12H [facility] Last Admin: 11/14/17 17:24 Dose: 200 mls/hr Meropenem 500 mg/ Sodium (Chloride) 100 mls @ 100 mls/hr IVPB Q12H [facility] Last Admin: 11/14/17 22:31 Dose: 100 mls/hr Micafungin Sodium 100 mg/ (Sodium Chloride) 100 mls @ 100 mls/hr IV Q24H [facility] Last Admin: 11/14/17 12:42 Dose: 100 mls/hr Lidocaine HCl/Dextrose (Lidocaine 2 Grams In D5w) 2,000 mg in 500 mls @ 15 mls/ hr IV .Q24H TANI PRN Reason: 1 MG/MIN Last Admin: 11/14/17 17:22 Dose: 15 mls/hr Phenylephrine HCl 120 mg/ (Sodium Chloride) 1,000 mls @ 10 mls/hr IV .Q24H PRN ; Protocol; 20 MCG/MIN PRN Reason: TITRATE PER MD ORDER Last Admin: 11/14/17 19:09 Dose: 180 mcg/min, 90 mls/hr Vasopressin 40 units/ Sodium (Chloride) 40 mls @ 2.4 mls/hr IV .[id number] TNAI; 0.04 UNITS/MIN PRN Reason: Protocol Last Admin: 11/14/17 13:13 Dose: 0.04 units/min, 2.4 mls/hr Norepinephrine Bitartrate 16 (mg/ Sodium Chloride) 1,000 mls @ 15 mls/hr IV .Q24H PRN; Protocol; 4 MCG/MIN PRN Reason: TITRATE PER MD ORDER Last Admin: 11/14/17 19:19 Dose: 20 mcg/min, 75 mls/hr Midazolam HCl (Versed Inj) 2 mg IVP Q4H PRN PRN Reason: Agitation Last Admin: 11/13/17 14:58 Dose: 2 mg Midodrine (Proamatine) 10 mg PO TID [facility] Last Admin: 11/14/17 17:24 Dose: 10 mg Pantoprazole Sodium (Protonix Inj) 40 mg IVP DAILY [facility] Last Admin: 11/14/17 10:26 Dose: 40 mg Vitamin B Complex/Vit C/Folic Acid (Nephro-Aleksandra) 1 tab PO DAILY [facility] Last Admin: 11/14/17 10:27 Dose: 1 tab Results - Vital Signs Recent Vital Signs: Last Vital Signs Temp 99.8 F H 11/15/17 00:00 Pulse 60 11/15/17 02:00 Resp 27 H 11/15/17 02:00 BP 59/23 L 11/15/17 01:45 Pulse Ox 100 11/14/17 19:09 - Labs Result Diagrams: 11/14/17 06:22 11/14/17 06:22 Labs: Laboratory Results - last 24 hr 11/14/17 11/14/17 11/14/17 05:40 06:22 06:22 WBC 6.1 RBC 2.87 L Hgb 8.8 L Hct 27.4 L MCV 95.5 H MCH 30.6 MCHC 32.0 L RDW 19.8 H Plt Count 31 L MPV 9.6 Neut % (Auto) 88.0 H Lymph % (Auto) 6.0 L Hendricks % (Auto) 6.0 Eos % (Auto) 0.0 Baso % (Auto) 0.0 Neut # 5.3 Lymph # 0.4 L Hendricks # 0.4 Eos # 0.0 Baso # 0.0 Neutrophils % (Manual) 86 H Band Neutrophils % 4 H Lymphocytes % (Manual) 6 L Monocytes % (Manual) 4 Nucleated RBC % 2 H Platelet Estimate Markedly decreased L Poikilocytosis (manual Slight Anisocytosis (manual) Moderate Duc Cells Moderate Retic Count 0.9 Puncture Site R bra pCO2 31 L pO2 252 H HCO3 13.9 L ABG pH 7.21 L ABG Total CO2 13.4 L ABG O2 Saturation 98.9 H ABG Base Excess -14.2 L ABG Hemoglobin 7.3 L ABG Carboxyhemoglobin 0.4 L POC ABG HHb (Measured) 1.1 ABG Methemoglobin 1.5 Scar Test Na A-a O2 Difference 422.0 Respiratory Index 1.7 Hgb O2 Saturation 97.0 Vent Mode Prvc Mechanical Rate 18 FiO2 100.0 Tidal Volume 400 PEEP 5 Sodium 124 L Potassium 5.8 H Chloride 95 L Carbon Dioxide 15 L Anion Gap 19 BUN 50 H Creatinine 3.4 H Est GFR ( Amer) 21 Est GFR (Non-Af Amer) 18 Random Glucose 132 H Calcium 6.4 L Magnesium 1.8 Ferritin 6540.0 Total Bilirubin 1.2 AST 192 H D ALT 75 H D Alkaline Phosphatase 125 Total Protein 5.4 L Albumin 2.2 L Globulin 3.1 Albumin/Globulin Ratio 0.7 L Vitamin B12 612 Folate > 20.0 Attending/Attestation - Attestation I have personally seen and examined this patient.: Yes I have fully participated in the care of the patient.: Yes I have reviewed all pertinent clinical information: Yes Notes (Text): Agree with the resident notes, discussion was made to during the rounds. Labs reviewed Continue the current treatment
[2017-11-05 17:47] LABS: BASO # 0.1 K/uL (0.0-0.2); BASO % 1.1 % (0.0-2.0); HEMOGLOBIN 10.3 g/dL (12.0-18.0); LYMPH # 0.1 K/uL (1.0-4.3); LYMPH % 2.1 % (20.0-40.0); MEAN CELL VOLUME 96.4 fL (80.0-94.0); MEAN CORPUSCULAR HEMOGLOBIN 30.5 pg (27.0-31.0); MEAN CORPUSCULAR HGB CONC 31.6 g/dL (33.0-37.0); MEAN PLATELET VOLUME 9.2 fL (7.2-11.7); MONO # 0.3 K/uL (0.0-0.8); MONO % 5.3 % (0.0-10.0); NEUT # 4.7 K/uL (1.8-7.0); NEUT % 91.5 % (50.0-75.0); NRBC % 0.1 % (0.0-2.0); RBC 3.39 Mil/uL (4.40-5.90); RED CELL DISTRIBUTION WIDTH 19.9 % (11.5-14.5); WHITE BLOOD COUNT 5.2 K/uL (4.8-10.8)
[2017-11-05 17:50] LABS: PLATELET COUNT 125 K/uL (130-400)
[2017-11-05] MEDS ORDERED: Piperacill/Tazo 2.25gm in Dex 2.25 GM/50 ML BAG IVPB SCH (18:00)
[2017-11-05 18:03] LABS: ALB/GLOB RATIO 0.8 (1.0-2.1); ALBUMIN 3.2 g/dL (3.5-5.0); CALCIUM 7.2 mg/dl (8.6-10.4)
--- NOTE | 2017-11-05 18:20 | RAD ---
HISTORY: Intubation. COMPARISON: Multiple serial examinations preceding the most recent study: 2017. Time of the most recent examination: 16:20. FINDINGS: LUNGS: Stable multifocal infiltrates left greater than right. PLEURA: Stable pleural effusions incompletely visualize related to overlying support apparatus. CARDIOVASCULAR: No significant interval change compared to the prior examination(s). Venous access catheter in stable, satisfactory position.Position/ configuration of pacemaker OSSEOUS STRUCTURES: No significant abnormalities. VISUALIZED UPPER ABDOMEN: Normal. OTHER FINDINGS: Satisfactory position of recently placed endotracheal tube. Satisfactory position of recently placed nasogastric tube. IMPRESSION: Satisfactory position of recently placed support apparatus. Stable multifocal infiltrates. Stable bilateral pleural effusions.
[2017-11-05] MEDS ORDERED: Sodium Chloride 0.9% 100 ML IV SCH (18:30)
[2017-11-05] MEDS: Cefepime IV 1 gm in Dextrose 1 GM/50 ML BAG IVPB SCH (18:42)
[2017-11-05 18:59] LABS: BANDS 9 % (0-2); EOSINOPHIL 1 % (0-4); HYPOCHROMIC SLIGHT; LYMPHOCYTE 3 % (20-40); MICROCYTOSIS SLIGHT; MONOCYTE 3 % (0-10); NEUTROPHIL 84 % (50-75); PLATELET ESTIMATE SLIGHTLY DECREASED (NORMAL); TOTAL CELLS COUNTED 100
[2017-11-05] MEDS ORDERED: Vancomycin 1 gm/NS 200 ml 1 GM/200 ML BAG IVPB SCH (19:00)
[2017-11-05 19:37] LABS: ARTERIAL BLOOD GAS HCO3 29.4 mmol/L (21-28); ARTERIAL BLOOD GAS O2 SAT 98.6 % (95-98); ARTERIAL BLOOD GAS PCO2 35 mm/Hg (35-45); ARTERIAL BLOOD GAS PH 7.52 (7.35-7.45); ARTERIAL BLOOD GAS PO2 127 mm/Hg (80-100); ARTERIAL BLOOD GAS TCO2 29.7 mmol/L (22-28)
--- NOTE | 2017-11-05 22:46 | PCM.RRT ---
<VinnyLorenzoMaryan - Last Filed: 11/05/17 22:40> DIP LUBE OPERATOR Nurses Assessment - Situation Date: 11/05/17 Time DIP LUBE OPERATOR was called: 16:04 DIP LUBE OPERATOR Responder Arrival Time:: 16:05 DIP LUBE OPERATOR Location:: Med/Surg Room Number: 562A DIP LUBE OPERATOR Reason for Call: O2 Saturation below 90% DIP LUBE OPERATOR Called By: RN - IV IV Inserted during DIP LUBE OPERATOR?: No New IV Insertion Tolerance: Good - Respiratory DIP LUBE OPERATOR Delivery Method: Nasal Cannula @L/min Oxygen Flow Rate: 5 Was the Patient Ventilated with Bag/Mask 100% O2?: Yes Secretions Suctioned?: No Was the Patient Intubated?: No Was the Patient Placed on a Ventilator?: No - Ventilator Settings Mode: PRVC Ventilator Respiratory Rate Settin Ventilator Tidal Volume Settin PEEP/CPAP (cm H2O): 5 SAO2 %: 100 FIO2 (% Oxygen): 50 - Medication Medications Administered During DIP LUBE OPERATOR: 1515 Amiodarone 0.5mg. 1524 Amiodarone 0.5mg - Diagnostic Test Ordered EKG: Yes Chest X-Ray: Yes CT Scan: No CPR started during DIP LUBE OPERATOR?: No - Vital Signs Vital Signs: Rapid Response Vital Sign Blood Pressure 143/56 Pulse Rate 60 Respiratory Rate 24 Temperature 98.5 F Oxygen Saturation 73 - Time DIP LUBE OPERATOR Ended Time DIP LUBE OPERATOR Ended: 14:45 - Vital Signs at end of DIP LUBE OPERATOR Vital Signs at end of DIP LUBE OPERATOR: Rapid Response End Vital Sign Blood Pressure 125/65 Pulse Rate 65 Respiratory Rate 24 Temperature 98.3 F O2 Sat by Pulse Oximetry 95 - Recommendations Notifications: Attending Physician - Respiratory Oxygen Delivery Method: Nasal Cannula @L/min Oxygen Flow Rate: 5 - Constitutional Appears: Non-toxic, In Acute Distress - Head Head Exam: ATRAUMATIC, NORMAL INSPECTION - Eyes Eye Exam: EOMI - Respiratory Exam Respiratory Exam: Accessory Muscle Use, Rhonchi, Respiratory Distress - Cardiovascular Exam Cardiovascular Exam: REGULAR RHYTHM, +S1, +S2 - GI/Abdominal Exam GI & Abdominal Exam: Soft - Neurological Exam Neurological Exam: Alert, Awake, CN II-XII Intact Plan - Assessment of Findings&Treatment Plan Rapid response was called because per nursing the patient desaturated into the 60s via pulse ox. Per nursing the patient has been noncompliant as in refusing medications, dialysis, and removing his nasal cannula during the day. The patient was put on a nonrebreather mask and the saturation came up to 90%. ABG performed earlier in the day showed the patient was not oxygenating well. Labs, chest x ray and abg was ordered. Patient continued to hypoxic so bipap was ordered. After the bipap was placed the patient vomited. Patient continued to be in respiratory distress and was using accessory muscles. It was explained to the patient that he would likely need to be intubated for airway protection and for better oxygenation delivery. The patient agreed to intubation. Dr. Wang was at bedside. ICU was consulted and the patient was transferred to the ICU and was intubated. <Colleen Jameson V - Last Filed: 11/06/17 14:42> DIP LUBE OPERATOR Nurses Assessment - Vital Signs Vital Signs: Rapid Response Vital Sign Blood Pressure 143/56 Pulse Rate 60 Respiratory Rate 24 Temperature 98.5 F Oxygen Saturation 73 - Vital Signs at end of DIP LUBE OPERATOR Vital Signs at end of DIP LUBE OPERATOR: Rapid Response End Vital Sign Blood Pressure 125/65 Pulse Rate 65 Respiratory Rate 24 Temperature 98.3 F O2 Sat by Pulse Oximetry 95 Attending/Attestation - Attestation I have personally seen and examined this patient.: Yes I have fully participated in the care of the patient.: Yes I have reviewed all pertinent clinical information, including history, physical exam and plan: Yes Notes (Text): This is late computer entry for 11/05/2017. Brief hospitalist note I responded to a proper response called for hypoxia where in patient's pulse ox noted to be in the 60s patient with a known history of cardiomyopathy with ejection fraction between 10-15%, appears to be possibly pneumonia, as well as renal insufficiency. Patient had completed dialysis prior to my arrival wherein he reports 1.5 L were removed which was confirmed with nursing staff per review of record patient has been refusing medications, dialysis, and has been removing his nasal cannula during the day. Patient placed on telemetry, patient placed on BiPAP given the chest x-ray does not appear well possibly cardiogenic edema versus pneumonia. I did discuss with patient at bedside with his brother present patient will allow for intubation if his breathing is compromised and he is aware he'll be connected to a breathing machine. Patient's primary doctor Dr. Gary present rapid response as well requesting for critical care evaluation given possible acute respiratory failure and thinks patient will need intubation sooner. Patient's ABG and chest x-ray ordered. Patient placed on BiPAP however vomited. Discuss case with the educational technology specialist Dr. Perez recommending for intubation and transfer to the intensive care unit. Anesthesia was paged for intubation.
--- NOTE | 2017-11-05 23:01 | PCM.RRT ---
INTERIOR WALL ASSEMBLER Nurses Assessment - Situation Date: 11/05/17 Time INTERIOR WALL ASSEMBLER was called: 16:04 INTERIOR WALL ASSEMBLER Responder Arrival Time:: 16:05 INTERIOR WALL ASSEMBLER Location:: Med/Surg Room Number: 562A INTERIOR WALL ASSEMBLER Reason for Call: O2 Saturation below 90% INTERIOR WALL ASSEMBLER Called By: RN - IV IV Inserted during INTERIOR WALL ASSEMBLER?: No New IV Insertion Tolerance: Good - Respiratory INTERIOR WALL ASSEMBLER Delivery Method: Nasal Cannula @L/min Oxygen Flow Rate: 5 Was the Patient Ventilated with Bag/Mask 100% O2?: Yes Secretions Suctioned?: No Was the Patient Intubated?: No Was the Patient Placed on a Ventilator?: No - Ventilator Settings Mode: PRVC Ventilator Respiratory Rate Settin Ventilator Tidal Volume Settin PEEP/CPAP (cm H2O): 5 SAO2 %: 100 FIO2 (% Oxygen): 50 - Medication Medications Administered During INTERIOR WALL ASSEMBLER: 1515 Amiodarone 0.5mg. 1524 Amiodarone 0.5mg - Diagnostic Test Ordered EKG: Yes Chest X-Ray: Yes CT Scan: No CPR started during INTERIOR WALL ASSEMBLER?: No - Vital Signs Vital Signs: Rapid Response Vital Sign Blood Pressure 143/56 Pulse Rate 60 Respiratory Rate 24 Temperature 98.5 F Oxygen Saturation 73 - Time INTERIOR WALL ASSEMBLER Ended Time INTERIOR WALL ASSEMBLER Ended: 14:45 - Vital Signs at end of INTERIOR WALL ASSEMBLER Vital Signs at end of INTERIOR WALL ASSEMBLER: Rapid Response End Vital Sign Blood Pressure 125/65 Pulse Rate 65 Respiratory Rate 24 Temperature 98.3 F O2 Sat by Pulse Oximetry 95 - Recommendations Notifications: Attending Physician - Respiratory Oxygen Delivery Method: Nasal Cannula @L/min Oxygen Flow Rate: 5 - Constitutional Appears: In Acute Distress, Chronically Ill - Head Head Exam: ATRAUMATIC, NORMAL INSPECTION - Eyes Eye Exam: EOMI - Respiratory Exam Respiratory Exam: Accessory Muscle Use, Rales, Respiratory Distress - Cardiovascular Exam Cardiovascular Exam: REGULAR RHYTHM, +S1, +S2 - GI/Abdominal Exam GI & Abdominal Exam: Soft - Neurological Exam Neurological Exam: Alert, Awake
[2017-11-06 05:49] LABS: ARTERIAL BLOOD GAS HEMOGLOBIN 10.1 g/dL (11.7-17.4); ARTERIAL BLOOD GAS O2 SAT 97.3 % (95-98); ARTERIAL BLOOD GAS PCO2 33 mm/Hg (35-45); ARTERIAL BLOOD GAS PO2 83 mm/Hg (80-100); ARTERIAL BLOOD GAS TCO2 26.7 mmol/L (22-28)
[2017-11-06 08:15] LABS: BASO % 0.5 % (0.0-2.0); HEMOGLOBIN 10.1 g/dL (12.0-18.0); LYMPH # 0.6 K/uL (1.0-4.3); LYMPH % 10.4 % (20.0-40.0); MEAN CELL VOLUME 97.5 fL (80.0-94.0); MEAN CORPUSCULAR HEMOGLOBIN 30.9 pg (27.0-31.0); MEAN CORPUSCULAR HGB CONC 31.7 g/dL (33.0-37.0); MEAN PLATELET VOLUME 10.1 fL (7.2-11.7); MONO # 0.3 K/uL (0.0-0.8); MONO % 4.4 % (0.0-10.0); NEUT % 84.7 % (50.0-75.0); NRBC % 0.4 % (0.0-2.0); RBC 3.26 Mil/uL (4.40-5.90); RED CELL DISTRIBUTION WIDTH 20.5 % (11.5-14.5); WHITE BLOOD COUNT 5.9 K/uL (4.8-10.8)
[2017-11-06 08:33] LABS: ALB/GLOB RATIO 0.8 (1.0-2.1); ALBUMIN 3.1 g/dL (3.5-5.0); CALCIUM 7.3 mg/dl (8.6-10.4); MAGNESIUM 1.5 mg/dL (1.6-2.3)
--- NOTE | 2017-11-06 09:07 | RAD ---
HISTORY: ETT COMPARISON: 11/05/2017. FINDINGS: Endotracheal tube is low in position and terminates just proximal to the jackeline. The right-sided dialysis catheter terminates in the right atrium. LUNGS: There is persistent consolidation in the right lower lobe and no change in multifocal airspace disease in the left lung. PLEURA: Again seen are bilateral pleural effusions, no pneumothorax apparent. CARDIOVASCULAR: The cardiomediastinal silhouette is stable. There is stable position of a left-sided pacemaker. OSSEOUS STRUCTURES: No significant abnormalities. VISUALIZED UPPER ABDOMEN: Normal. OTHER FINDINGS: None. IMPRESSION: Endotracheal tube terminates just proximal to the jackeline. No change in right lower lobe consolidation, multifocal consolidation in the left lung and bilateral pleural effusions.
--- NOTE | 2017-11-06 09:47 | RAD ---
HISTORY: TLC COMPARISON: 11/06/2017 at 0632 hours FINDINGS: LUNGS: Bilateral patchy airspace opacities interval increase coalescence left mid to lower lung zone an increasing in the right mid to lower lung zone. Elevated right hemidiaphragm and similar status PLEURA: Bilateral pleural effusions inferred. , no gross pneumothorax apparent. CARDIOVASCULAR: Cardiomegaly OSSEOUS STRUCTURES: No significant abnormalities. VISUALIZED UPPER ABDOMEN: Normal. OTHER FINDINGS: Endotracheal tube tip approximately 3 cm proximal to jackeline. Lowercase nextPosition/ configuration of pacemaker Satisfactory. NG tube position appears satisfactory right dialysis catheter tip in right atrium Possible interval insertion left internal jugular vein central catheter - tip probably superior vena cava. Multiple overlying wires leads and electrodes obscuring central anatomy. IMPRESSION: Worsening bilateral pulmonary infiltrates. Multiple support lines and tubes positions estimated as above. Correlate clinically with all lines that are indeed now present recommended
[2017-11-06] MEDS ORDERED: Ferric Sodium Gluconat Complex 62.5 mg/5 ml Vial ONE (09:55)
[2017-11-06] MEDS: Ferric Sodium Gluconat Complex 125 MG in Sodium Chloride 0.9% 100 ML IVPB SCH (10:08)
[2017-11-06] MEDS: Multivitamin Vitamin B Complex (Nephro-Vite) Tab PO SCH (10:09)
[2017-11-06] MEDS ORDERED: Acetaminophen 650mg/20.3ml solution UD NG STA ×2 (10:45→13:06)
--- NOTE | 2017-11-06 11:30 | CP.CCUPN ---
<Krishna Brooks - Last Filed: 11/06/17 14:49> CCU Subjective - Physician Review Events Since Last Encounter (Free Text): 11/06/17 11:04 Patient seen and examined at bedside. Awake and alert On propofol low dose Intubated; 18, 400, 5, 50 TLC L. IJ inserted today CCU Objective - Vital Signs / Intake & Output Vital Signs (Last 4 hours): Vital Signs Temp Pulse Resp BP Pulse Ox 11/06/17 08:47 60 20 81/43 L 99 11/06/17 08:00 100.3 F H 98 11/06/17 07:47 60 20 72/38 L 89 L Intake and Output (Last 8hrs): Intake & Output 11/05/17 11/06/17 11/06/17 22:59 06:59 14:59 Intake Total 507.5 12.0 3.0 Output Total 225 30 0 Balance 282.5 -18.0 3.0 Weight 114 lb 4.8 oz 115 lb Intake: Intake, IV Amount 107.5 12.0 3.0 Right Antecubital 7.5 12.0 3.0 Right Wrist 100 0 Oral 400 Output: Urine 225 30 0 Urethral ([place]) 225 30 0 Other: # Bowel Movements 0 0 - Physical Exam Head: Positive for: Atraumatic, Normocephalic Extroacular Muscles: Positive for: EOMI. Negative for: Gaze Palsy Conjunctiva: Positive for: Normal Mouth: Positive for: Moist Mucous Membranes, Normal Lips Neck: Positive for: Normal Range of Motion, Other (L IJ) Respiratory/Chest: Positive for: Clear to Auscultation, Other (intubated) Cardiovascular: Positive for: Regular Rate and Rhythm Abdomen: Positive for: Normal Bowel Sounds Upper Extremity: Positive for: Normal Inspection, Capillary Refill < 2s. Negative for: Edema Lower Extremity: Positive for: Normal Inspection, Capillary Refill < 2 s. Negative for: Edema Neurological: Positive for: Speech Normal Psychiatric: Positive for: Alert, Oriented x 3 - Medications Active Medications: Active Medications Generic Name Dose Route Start Last Admin Trade Name Freq PRN Reason Stop Dose Admin Amiodarone HCl 200 mg 11/05/17 17:17 11/06/17 10:09 Cordarone PO 200 mg BID TANI Administration Calcium Acetate 1,334 mg 10/27/17 09:29 11/06/17 09:00 Phoslo PO 1,334 mg TIDCC TANI Administration Epoetin Pepe 10,000 unit 10/22/17 14:30 11/05/17 13:16 Procrit IV 10,000 unit MWF TANI Administration Heparin Sodium (Porcine) 5,000 units 10/30/17 22:00 11/06/17 05:50 Heparin SC 5,000 units Q8 TANI Administration Ferric Sodium Gluconate 110 mls @ 110 mls/hr 11/05/17 14:30 11/06/17 10:08 Complex 125 mg/ Sodium IVPB 11/13/17 14:31 110 mls/hr Chloride DAILY TANI Administration Cefepime HCl 1 gm in 50 mls @ 100 mls/hr 11/05/17 19:00 11/05/17 18:42 Maxipime Iv 1 Gm Premix IVPB 100 mls/hr Q24H TANI Administration Propofol 1,000 mg in 100 mls @ 1.555 mls/hr 11/05/17 18:43 11/05/17 17:30 Diprivan IV 5 mcg/kg/min .Q24H PRN 1.555 mls/hr TITRATE PER MD ORDER Administration Protocol 5 MCG/KG/MIN Lactulose 20 gm 10/29/17 22:00 Enulose PO HS PRN Constipation Midodrine 10 mg 10/26/17 08:33 11/06/17 10:10 Proamatine PO 10 mg TID TANI Administration Tamsulosin HCl 0.4 mg 10/12/17 10:00 11/06/17 10:09 Flomax PO 0.4 mg DAILY TANI Administration Vitamin B Complex/Vit C/Folic Acid 1 tab 10/12/17 10:00 11/06/17 10:09 Nephro-Aleksandra PO 1 tab DAILY TANI Administration - Patient Studies Lab Studies: Lab Studies 11/06/17 11/06/17 11/06/17 Range/Units 07:51 07:51 05:27 WBC 5.9 (4.8-10.8) K/uL RBC 3.26 L (4.40-5.90) Mil/uL Hgb 10.1 L (12.0-18.0) g/dL Hct 31.8 L (35.0-51.0) % MCV 97.5 H (80.0-94.0) fL MCH 30.9 (27.0-31.0) pg MCHC 31.7 L (33.0-37.0) g/dL RDW 20.5 H (11.5-14.5) % Plt Count 101 L D (130-400) K/uL MPV 10.1 (7.2-11.7) fL Neut % (Auto) 84.7 H (50.0-75.0) % Lymph % (Auto) 10.4 L (20.0-40.0) % [place] % (Auto) 4.4 (0.0-10.0) % Eos % (Auto) 0.0 (0.0-4.0) % Baso % (Auto) 0.5 (0.0-2.0) % Neut # 5.0 (1.8-7.0) K/uL Lymph # 0.6 L (1.0-4.3) K/uL [place] # 0.3 (0.0-0.8) K/uL Eos # 0.0 (0.0-0.7) K/uL Baso # 0.0 (0.0-0.2) K/uL Neutrophils % (Manual) (50-75) % Band Neutrophils % (0-2) % Lymphocytes % (Manual) (20-40) % Monocytes % (Manual) (0-10) % Eosinophils % (Manual) (0-4) % Platelet Estimate (NORMAL) Hypochromasia (manual) Microcytosis (manual) Puncture Site Rb pCO2 33 L (35-45) mm/Hg pO2 83 (80-100) mm/Hg HCO3 27.0 (21-28) mmol/L ABG pH 7.50 H (7.35-7.45) ABG Total CO2 26.7 (22-28) mmol/L ABG O2 Saturation 97.3 (95-98) % ABG Base Excess 2.7 (-2.0-3.0) mmol/L ABG Hemoglobin 10.1 L (11.7-17.4) g/dL ABG Carboxyhemoglobin 1.6 H (0.5-1.5) % POC ABG HHb (Measured) 2.6 (0.0-5.0) % ABG Methemoglobin 0.8 (0.0-3.0) % Scar Test Na ABG Potassium (3.6-5.2) mmol/L A-a O2 Difference 232.0 mm/Hg Respiratory Index 2.8 Hgb O2 Saturation 95.1 (95.0-98.0) % Glucose (75-110) mg/dl Lactate (0.7-2.1) mmol/L Vent Mode Prvc Mechanical Rate 18 FiO2 50.0 % Tidal Volume 400 PEEP 5 Sodium 131 L (132-148) mmol/L Potassium 4.7 (3.6-5.2) mmol/L Chloride 96 L (98-107) mmol/L Carbon Dioxide 25 (22-30) mmol/L Anion Gap 16 (10-20) BUN 53 H (9-20) mg/dL Creatinine 5.9 H (0.8-1.5) mg/dL Est GFR ( Amer) 11 Est GFR (Non-Af Amer) 9 POC Glucose (mg/dL) (65-110) mg/dL Random Glucose 84 (75-110) mg/dL Calcium 7.3 L (8.6-10.4) mg/dl Phosphorus 4.8 H (2.5-4.5) mg/dL Magnesium 1.5 L (1.6-2.3) mg/dL % Saturation (20-55) Ferritin ng/mL Total Bilirubin 0.9 (0.2-1.3) mg/dL AST 68 H D (17-59) U/L ALT 51 (21-72) U/L Alkaline Phosphatase 95 (38-126) U/L Total Protein 7.3 (6.3-8.3) g/dL Albumin 3.1 L (3.5-5.0) g/dL Globulin 4.1 H (2.2-3.9) gm/dL Albumin/Globulin Ratio 0.8 L (1.0-2.1) Prostate Specific Ag (0.00-4.0) ng/mL Arterial Blood Potassium (3.6-5.2) mmol/L 11/05/17 11/05/17 11/05/17 Range/Units 19:34 17:42 17:42 WBC 5.2 (4.8-10.8) K/uL RBC 3.39 L (4.40-5.90) Mil/uL Hgb 10.3 L (12.0-18.0) g/dL Hct 32.7 L (35.0-51.0) % MCV 96.4 H (80.0-94.0) fL MCH 30.5 (27.0-31.0) pg MCHC 31.6 L (33.0-37.0) g/dL RDW 19.9 H (11.5-14.5) % Plt Count 125 L D (130-400) K/uL MPV 9.2 (7.2-11.7) fL Neut % (Auto) 91.5 H (50.0-75.0) % Lymph % (Auto) 2.1 L (20.0-40.0) % [place] % (Auto) 5.3 (0.0-10.0) % Eos % (Auto) 0.0 (0.0-4.0) % Baso % (Auto) 1.1 (0.0-2.0) % Neut # 4.7 (1.8-7.0) K/uL Lymph # 0.1 L (1.0-4.3) K/uL [place] # 0.3 (0.0-0.8) K/uL Eos # 0.0 (0.0-0.7) K/uL Baso # 0.1 (0.0-0.2) K/uL Neutrophils % (Manual) 84 H (50-75) % Band Neutrophils % 9 H (0-2) % Lymphocytes % (Manual) 3 L (20-40) % Monocytes % (Manual) 3 (0-10) % Eosinophils % (Manual) 1 (0-4) % Platelet Estimate Slightly decreased L (NORMAL) Hypochromasia (manual) Slight Microcytosis (manual) Slight Puncture Site Rba pCO2 35 (35-45) mm/Hg pO2 127 H (80-100) mm/Hg HCO3 29.4 H (21-28) mmol/L ABG pH 7.52 H (7.35-7.45) ABG Total CO2 29.7 H (22-28) mmol/L ABG O2 Saturation 98.6 H (95-98) % ABG Base Excess 5.7 H (-2.0-3.0) mmol/L ABG Hemoglobin (11.7-17.4) g/dL ABG Carboxyhemoglobin (0.5-1.5) % POC ABG HHb (Measured) (0.0-5.0) % ABG Methemoglobin (0.0-3.0) % Scar Test Na ABG Potassium 4.0 (3.6-5.2) mmol/L A-a O2 Difference 328.0 mm/Hg Respiratory Index 2.6 Hgb O2 Saturation (95.0-98.0) % Glucose 118 H (75-110) mg/dl Lactate 1.3 (0.7-2.1) mmol/L Vent Mode Prvc Mechanical Rate 18 FiO2 70.0 % Tidal Volume 450 PEEP 5 Sodium 133.0 131 L (132-148) mmol/L Potassium 4.2 (3.6-5.2) mmol/L Chloride 100.0 94 L (98-107) mmol/L Carbon Dioxide 25 (22-30) mmol/L Anion Gap 15 (10-20) BUN 41 H (9-20) mg/dL Creatinine 4.8 H (0.8-1.5) mg/dL Est GFR ( Amer) 14 Est GFR (Non-Af Amer) 12 POC Glucose (mg/dL) (65-110) mg/dL Random Glucose 126 H (75-110) mg/dL Calcium 7.2 L (8.6-10.4) mg/dl Phosphorus (2.5-4.5) mg/dL Magnesium (1.6-2.3) mg/dL % Saturation (20-55) Ferritin ng/mL Total Bilirubin 0.9 (0.2-1.3) mg/dL AST 49 (17-59) U/L ALT 38 (21-72) U/L Alkaline Phosphatase 96 (38-126) U/L Total Protein 7.3 (6.3-8.3) g/dL Albumin 3.2 L (3.5-5.0) g/dL Globulin 4.2 H (2.2-3.9) gm/dL Albumin/Globulin Ratio 0.8 L (1.0-2.1) Prostate Specific Ag 10.7 H (0.00-4.0) ng/mL Arterial Blood Potassium 4.0 (3.6-5.2) mmol/L 11/05/17 11/05/17 11/05/17 Range/Units 16:08 12:49 12:49 WBC (4.8-10.8) K/uL RBC (4.40-5.90) Mil/uL Hgb (12.0-18.0) g/dL Hct (35.0-51.0) % MCV (80.0-94.0) fL MCH (27.0-31.0) pg MCHC (33.0-37.0) g/dL RDW (11.5-14.5) % Plt Count (130-400) K/uL MPV (7.2-11.7) fL Neut % (Auto) (50.0-75.0) % Lymph % (Auto) (20.0-40.0) % [place] % (Auto) (0.0-10.0) % Eos % (Auto) (0.0-4.0) % Baso % (Auto) (0.0-2.0) % Neut # (1.8-7.0) K/uL Lymph # (1.0-4.3) K/uL [place] # (0.0-0.8) K/uL Eos # (0.0-0.7) K/uL Baso # (0.0-0.2) K/uL Neutrophils % (Manual) (50-75) % Band Neutrophils % (0-2) % Lymphocytes % (Manual) (20-40) % Monocytes % (Manual) (0-10) % Eosinophils % (Manual) (0-4) % Platelet Estimate (NORMAL) Hypochromasia (manual) Microcytosis (manual) Puncture Site pCO2 (35-45) mm/Hg pO2 (80-100) mm/Hg HCO3 (21-28) mmol/L ABG pH (7.35-7.45) ABG Total CO2 (22-28) mmol/L ABG O2 Saturation (95-98) % ABG Base Excess (-2.0-3.0) mmol/L ABG Hemoglobin (11.7-17.4) g/dL ABG Carboxyhemoglobin (0.5-1.5) % POC ABG HHb (Measured) (0.0-5.0) % ABG Methemoglobin (0.0-3.0) % Scar Test ABG Potassium (3.6-5.2) mmol/L A-a O2 Difference mm/Hg Respiratory Index Hgb O2 Saturation (95.0-98.0) % Glucose (75-110) mg/dl Lactate (0.7-2.1) mmol/L Vent Mode Mechanical Rate FiO2 % Tidal Volume PEEP Sodium (132-148) mmol/L Potassium (3.6-5.2) mmol/L Chloride (98-107) mmol/L Carbon Dioxide (22-30) mmol/L Anion Gap (10-20) BUN (9-20) mg/dL Creatinine (0.8-1.5) mg/dL Est GFR ( Amer) Est GFR (Non-Af Amer) POC Glucose (mg/dL) 191 H (65-110) mg/dL Random Glucose (75-110) mg/dL Calcium (8.6-10.4) mg/dl Phosphorus (2.5-4.5) mg/dL Magnesium (1.6-2.3) mg/dL % Saturation 3.7 L (20-55) Ferritin 355.0 ng/mL Total Bilirubin (0.2-1.3) mg/dL AST (17-59) U/L ALT (21-72) U/L Alkaline Phosphatase (38-126) U/L Total Protein (6.3-8.3) g/dL Albumin (3.5-5.0) g/dL Globulin (2.2-3.9) gm/dL Albumin/Globulin Ratio (1.0-2.1) Prostate Specific Ag (0.00-4.0) ng/mL Arterial Blood Potassium (3.6-5.2) mmol/L Laboratory Results - last 24 hr 11/05/17 11/05/17 11/05/17 12:49 12:49 16:08 WBC RBC Hgb Hct MCV MCH MCHC RDW Plt Count MPV Neut % (Auto) Lymph % (Auto) [place] % (Auto) Eos % (Auto) Baso % (Auto) Neut # Lymph # [place] # Eos # Baso # Neutrophils % (Manual) Band Neutrophils % Lymphocytes % (Manual) Monocytes % (Manual) Eosinophils % (Manual) Platelet Estimate Hypochromasia (manual) Microcytosis (manual) Puncture Site pCO2 pO2 HCO3 ABG pH ABG Total CO2 ABG O2 Saturation ABG Base Excess ABG Hemoglobin ABG Carboxyhemoglobin POC ABG HHb (Measured) ABG Methemoglobin Scar Test ABG Potassium A-a O2 Difference Respiratory Index Hgb O2 Saturation Glucose Lactate Vent Mode Mechanical Rate FiO2 Tidal Volume PEEP Sodium Potassium Chloride Carbon Dioxide Anion Gap BUN Creatinine Est GFR ( Amer) Est GFR (Non-Af Amer) POC Glucose (mg/dL) 191 H Random Glucose Calcium Phosphorus Magnesium % Saturation 3.7 L Ferritin 355.0 Total Bilirubin AST ALT Alkaline Phosphatase Total Protein Albumin Globulin Albumin/Globulin Ratio Prostate Specific Ag Arterial Blood Potassium 11/05/17 11/05/17 11/05/17 17:42 17:42 19:34 WBC 5.2 RBC 3.39 L Hgb 10.3 L Hct 32.7 L MCV 96.4 H MCH 30.5 MCHC 31.6 L RDW 19.9 H Plt Count 125 L D MPV 9.2 Neut % (Auto) 91.5 H Lymph % (Auto) 2.1 L [place] % (Auto) 5.3 Eos % (Auto) 0.0 Baso % (Auto) 1.1 Neut # 4.7 Lymph # 0.1 L [place] # 0.3 Eos # 0.0 Baso # 0.1 Neutrophils % (Manual) 84 H Band Neutrophils % 9 H Lymphocytes % (Manual) 3 L Monocytes % (Manual) 3 Eosinophils % (Manual) 1 Platelet Estimate Slightly decreased L Hypochromasia (manual) Slight Microcytosis (manual) Slight Puncture Site Rba pCO2 35 pO2 127 H HCO3 29.4 H ABG pH 7.52 H ABG Total CO2 29.7 H ABG O2 Saturation 98.6 H ABG Base Excess 5.7 H ABG Hemoglobin ABG Carboxyhemoglobin POC ABG HHb (Measured) ABG Methemoglobin Scar Test Na ABG Potassium 4.0 A-a O2 Difference 328.0 Respiratory Index 2.6 Hgb O2 Saturation Glucose 118 H Lactate 1.3 Vent Mode Prvc Mechanical Rate 18 FiO2 70.0 Tidal Volume 450 PEEP 5 Sodium 131 L 133.0 Potassium 4.2 Chloride 94 L 100.0 Carbon Dioxide 25 Anion Gap 15 BUN 41 H Creatinine 4.8 H Est GFR ( Amer) 14 Est GFR (Non-Af Amer) 12 POC Glucose (mg/dL) Random Glucose 126 H Calcium 7.2 L Phosphorus Magnesium % Saturation Ferritin Total Bilirubin 0.9 AST 49 ALT 38 Alkaline Phosphatase 96 Total Protein 7.3 Albumin 3.2 L Globulin 4.2 H Albumin/Globulin Ratio 0.8 L Prostate Specific Ag 10.7 H Arterial Blood Potassium 4.0 11/06/17 11/06/17 11/06/17 05:27 07:51 07:51 WBC 5.9 RBC 3.26 L Hgb 10.1 L Hct 31.8 L MCV 97.5 H MCH 30.9 MCHC 31.7 L RDW 20.5 H Plt Count 101 L D MPV 10.1 Neut % (Auto) 84.7 H Lymph % (Auto) 10.4 L [place] % (Auto) 4.4 Eos % (Auto) 0.0 Baso % (Auto) 0.5 Neut # 5.0 Lymph # 0.6 L [place] # 0.3 Eos # 0.0 Baso # 0.0 Neutrophils % (Manual) Band Neutrophils % Lymphocytes % (Manual) Monocytes % (Manual) Eosinophils % (Manual) Platelet Estimate Hypochromasia (manual) Microcytosis (manual) Puncture Site Rb pCO2 33 L pO2 83 HCO3 27.0 ABG pH 7.50 H ABG Total CO2 26.7 ABG O2 Saturation 97.3 ABG Base Excess 2.7 ABG Hemoglobin 10.1 L ABG Carboxyhemoglobin 1.6 H POC ABG HHb (Measured) 2.6 ABG Methemoglobin 0.8 Scar Test Na ABG Potassium A-a O2 Difference 232.0 Respiratory Index 2.8 Hgb O2 Saturation 95.1 Glucose Lactate Vent Mode Prvc Mechanical Rate 18 FiO2 50.0 Tidal Volume 400 PEEP 5 Sodium 131 L Potassium 4.7 Chloride 96 L Carbon Dioxide 25 Anion Gap 16 BUN 53 H Creatinine 5.9 H Est GFR ( Amer) 11 Est GFR (Non-Af Amer) 9 POC Glucose (mg/dL) Random Glucose 84 Calcium 7.3 L Phosphorus 4.8 H Magnesium 1.5 L % Saturation Ferritin Total Bilirubin 0.9 AST 68 H D ALT 51 Alkaline Phosphatase 95 Total Protein 7.3 Albumin 3.1 L Globulin 4.1 H Albumin/Globulin Ratio 0.8 L Prostate Specific Ag Arterial Blood Potassium Critical Care Progress Note - Nutrition Nutrition: Nutrition Category Date Time Status Renal Diet [DIET] Diets 10/27/17 Breakfast Active Assessment/Plan - Assessment and Plan (Free Text) Assessment: Assessment: 77M w/ Respiratory distress, intubated Plan: Cardio Cards ([place]) Lifevest Amiodarone 200 PO BID Pulm Intubated Vent 18/400/5/80 CXR shows pleural effusion, F/U repeat Chest CT Propofol Light sedation Renal Nephro ([place]) ESRD on dialysis has been noncomplinant on dialysis, refusing to finish sessions Uro (Gildardo Varela) urinary retention - flomax 0.4 PO QD sanon removed today ID ID (Debra) Tmax 102, persistent fever 100.3 overnight. Tylenol per NGT f/u blood cultures f/u urine cultures cefepime 1g IV qd F/U Procal Hypotensive today. TLC inserted L. IJ PPx Heparin 5000 SC Q8 PT/OT Renal Diet Proc: Central Venous Access - Time Performed Time Performed: 08:45 - Time Out Time Out: Side verified - Procedure Procedure: Central Line placement: Left Technique:: Seldinger technique, Ultrasound guidance, Internal jugular vein - Consent obtained Consent obtained: Written - Performed by Performed by: Attending Physician - Indications Indication(s):: Other (hypotension) Contraindications: None Tube type:: Triple lumen - Local Anesthetic Local Anesthetic: Lidocaine: 5ml - Number of Attempts Attempts: 1 - Line sutured in place Line sutured in place:: Yes - Confirmation Confirmation:: CXR -tube approp position, No pneumothorax - Complications Complications: none - Patient tolerated procedure Patient Tolerated Procedure:: Well <Manjit Krueger - Last Filed: 11/06/17 16:44> CCU Objective - Vital Signs / Intake & Output Vital Signs (Last 4 hours): Vital Signs Temp Pulse Pulse Resp BP BP Pulse Ox 11/06/17 16:25 115/57 L 11/06/17 16:10 119/56 L 11/06/17 15:55 119/56 L 11/06/17 15:40 121/59 L 11/06/17 15:20 113/56 L 11/06/17 15:15 52 L 25 H 100/47 L 93 L 11/06/17 15:10 100/47 L 11/06/17 15:01 60 24 98/44 L 98 11/06/17 15:00 60 23 95 11/06/17 14:55 98/44 L 11/06/17 14:47 60 26 H 81/37 L 93 L 11/06/17 14:45 60 26 H 75/39 L 93 L 11/06/17 14:40 75/39 L 11/06/17 14:28 60 26 H 82/39 L 96 11/06/17 14:25 100.2 F H 60 22 82/39 L 95 11/06/17 14:20 100.2 F H 60 22 94/42 L 11/06/17 14:00 60 26 H 95 11/06/17 13:47 60 26 H 94/42 L 94 L 11/06/17 13:37 60 22 97/44 L 97 11/06/17 13:10 102.3 F H 11/06/17 13:07 60 22 86/41 L 98 11/06/17 13:00 60 20 98 11/06/17 12:47 60 20 86/41 L 97 Intake and Output (Last 8hrs): Intake & Output 11/06/17 11/06/17 11/06/17 06:59 14:59 22:59 Intake Total 12.0 49.2 39.0 Output Total 30 20 Balance -18.0 29.2 39.0 Weight 115 lb Intake: Intake, IV Amount 12.0 49.2 39.0 Left Medial Port 37.2 37.5 Left Proximal Port 3.0 1.5 Right Antecubital 12.0 9.0 0 Right Wrist 0 Output: Urine 30 20 Urethral ([place]) 30 20 Other: # Bowel Movements 0 - Medications Active Medications: Active Medications Generic Name Dose Route Start Last Admin Trade Name Freq PRN Reason Stop Dose Admin Amiodarone HCl 200 mg 11/05/17 17:17 11/06/17 10:09 Cordarone PO 200 mg BID [facility] Administration Calcium Acetate 1,334 mg 10/27/17 09:29 11/06/17 13:06 Phoslo PO 1,334 mg TIDCC [facility] Administration Epoetin Pepe 10,000 unit 10/22/17 14:30 11/05/17 13:16 Procrit IV 10,000 unit MWF [facility] Administration Heparin Sodium (Porcine) 5,000 units 10/30/17 22:00 11/06/17 13:07 Heparin SC 5,000 units Q8 TANI Administration Ferric Sodium Gluconate 110 mls @ 110 mls/hr 11/05/17 14:30 11/06/17 10:08 Complex 125 mg/ Sodium IVPB 11/13/17 14:31 110 mls/hr Chloride DAILY TANI Administration Cefepime HCl 1 gm in 50 mls @ 100 mls/hr 11/05/17 19:00 11/05/17 18:42 Maxipime Iv 1 Gm Premix IVPB 100 mls/hr Q24H TANI Administration Propofol 1,000 mg in 100 mls @ 1.555 mls/hr 11/05/17 18:43 11/05/17 17:30 Diprivan IV 5 mcg/kg/min .Q24H PRN 1.555 mls/hr TITRATE PER MD ORDER Administration Protocol 5 MCG/KG/MIN Norepinephrine Bitartrate 4 mg 254 mls @ 19.05 mls/hr 11/06/17 13:00 13:07 / Sodium Chloride IV 5 mcg/min .[id number] PRN 19.05 mls/hr TITRATE PER MD ORDER Administration Protocol 5 MCG/MIN Lactulose 20 gm 10/29/17 22:00 Enulose PO HS PRN Constipation Midodrine 10 mg 10/26/17 08:33 11/06/17 13:07 Proamatine PO 10 mg TID TANI Administration Tamsulosin HCl 0.4 mg 10/12/17 10:00 11/06/17 10:09 Flomax PO 0.4 mg DAILY TANI Administration Vitamin B Complex/Vit C/Folic Acid 1 tab 10/12/17 10:00 11/06/17 10:09 Nephro-Aleksandra PO 1 tab DAILY TANI Administration - Patient Studies Lab Studies: Lab Studies 11/06/17 11/06/17 11/06/17 Range/Units 07:51 07:51 05:27 WBC 5.9 (4.8-10.8) K/uL RBC 3.26 L (4.40-5.90) Mil/uL Hgb 10.1 L (12.0-18.0) g/dL Hct 31.8 L (35.0-51.0) % MCV 97.5 H (80.0-94.0) fL MCH 30.9 (27.0-31.0) pg MCHC 31.7 L (33.0-37.0) g/dL RDW 20.5 H (11.5-14.5) % Plt Count 101 L D (130-400) K/uL MPV 10.1 (7.2-11.7) fL Neut % (Auto) 84.7 H (50.0-75.0) % Lymph % (Auto) 10.4 L (20.0-40.0) % [place] % (Auto) 4.4 (0.0-10.0) % Eos % (Auto) 0.0 (0.0-4.0) % Baso % (Auto) 0.5 (0.0-2.0) % Neut # 5.0 (1.8-7.0) K/uL Lymph # 0.6 L (1.0-4.3) K/uL [place] # 0.3 (0.0-0.8) K/uL Eos # 0.0 (0.0-0.7) K/uL Baso # 0.0 (0.0-0.2) K/uL Neutrophils % (Manual) (50-75) % Band Neutrophils % (0-2) % Lymphocytes % (Manual) (20-40) % Monocytes % (Manual) (0-10) % Eosinophils % (Manual) (0-4) % Differential Comment Platelet Estimate (NORMAL) Hypochromasia (manual) Microcytosis (manual) Puncture Site Rb pCO2 33 L (35-45) mm/Hg pO2 83 (80-100) mm/Hg HCO3 27.0 (21-28) mmol/L ABG pH 7.50 H (7.35-7.45) ABG Total CO2 26.7 (22-28) mmol/L ABG O2 Saturation 97.3 (95-98) % ABG Base Excess 2.7 (-2.0-3.0) mmol/L ABG Hemoglobin 10.1 L (11.7-17.4) g/dL ABG Carboxyhemoglobin 1.6 H (0.5-1.5) % POC ABG HHb (Measured) 2.6 (0.0-5.0) % ABG Methemoglobin 0.8 (0.0-3.0) % Scar Test Na ABG Potassium (3.6-5.2) mmol/L A-a O2 Difference 232.0 mm/Hg Respiratory Index 2.8 Hgb O2 Saturation 95.1 (95.0-98.0) % Glucose (75-110) mg/dl Lactate (0.7-2.1) mmol/L Vent Mode Prvc Mechanical Rate 18 FiO2 50.0 % Tidal Volume 400 PEEP 5 Sodium 131 L (132-148) mmol/L Potassium 4.7 (3.6-5.2) mmol/L Chloride 96 L (98-107) mmol/L Carbon Dioxide 25 (22-30) mmol/L Anion Gap 16 (10-20) BUN 53 H (9-20) mg/dL Creatinine 5.9 H (0.8-1.5) mg/dL Est GFR ( Amer) 11 Est GFR (Non-Af Amer) 9 Random Glucose 84 (75-110) mg/dL Calcium 7.3 L (8.6-10.4) mg/dl Phosphorus 4.8 H (2.5-4.5) mg/dL Magnesium 1.5 L (1.6-2.3) mg/dL Total Bilirubin 0.9 (0.2-1.3) mg/dL AST 68 H D (17-59) U/L ALT 51 (21-72) U/L Alkaline Phosphatase 95 (38-126) U/L Total Protein 7.3 (6.3-8.3) g/dL Albumin 3.1 L (3.5-5.0) g/dL Globulin 4.1 H (2.2-3.9) gm/dL Albumin/Globulin Ratio 0.8 L (1.0-2.1) Prostate Specific Ag (0.00-4.0) ng/mL Arterial Blood Potassium (3.6-5.2) mmol/L 11/05/17 11/05/17 11/05/17 Range/Units 19:34 17:42 17:42 WBC 5.2 (4.8-10.8) K/uL RBC 3.39 L (4.40-5.90) Mil/uL Hgb 10.3 L (12.0-18.0) g/dL Hct 32.7 L (35.0-51.0) % MCV 96.4 H (80.0-94.0) fL MCH 30.5 (27.0-31.0) pg MCHC 31.6 L (33.0-37.0) g/dL RDW 19.9 H (11.5-14.5) % Plt Count 125 L D (130-400) K/uL MPV 9.2 (7.2-11.7) fL Neut % (Auto) 91.5 H (50.0-75.0) % Lymph % (Auto) 2.1 L (20.0-40.0) % [place] % (Auto) 5.3 (0.0-10.0) % Eos % (Auto) 0.0 (0.0-4.0) % Baso % (Auto) 1.1 (0.0-2.0) % Neut # 4.7 (1.8-7.0) K/uL Lymph # 0.1 L (1.0-4.3) K/uL [place] # 0.3 (0.0-0.8) K/uL Eos # 0.0 (0.0-0.7) K/uL Baso # 0.1 (0.0-0.2) K/uL Neutrophils % (Manual) 84 H (50-75) % Band Neutrophils % 9 H (0-2) % Lymphocytes % (Manual) 3 L (20-40) % Monocytes % (Manual) 3 (0-10) % Eosinophils % (Manual) 1 (0-4) % Differential Comment Platelet Estimate Slightly decreased L (NORMAL) Hypochromasia (manual) Slight Microcytosis (manual) Slight Puncture Site Rba pCO2 35 (35-45) mm/Hg pO2 127 H (80-100) mm/Hg HCO3 29.4 H (21-28) mmol/L ABG pH 7.52 H (7.35-7.45) ABG Total CO2 29.7 H (22-28) mmol/L ABG O2 Saturation 98.6 H (95-98) % ABG Base Excess 5.7 H (-2.0-3.0) mmol/L ABG Hemoglobin (11.7-17.4) g/dL ABG Carboxyhemoglobin (0.5-1.5) % POC ABG HHb (Measured) (0.0-5.0) % ABG Methemoglobin (0.0-3.0) % Scar Test Na ABG Potassium 4.0 (3.6-5.2) mmol/L A-a O2 Difference 328.0 mm/Hg Respiratory Index 2.6 Hgb O2 Saturation (95.0-98.0) % Glucose 118 H (75-110) mg/dl Lactate 1.3 (0.7-2.1) mmol/L Vent Mode Prvc Mechanical Rate 18 FiO2 70.0 % Tidal Volume 450 PEEP 5 Sodium 133.0 131 L (132-148) mmol/L Potassium 4.2 (3.6-5.2) mmol/L Chloride 100.0 94 L (98-107) mmol/L Carbon Dioxide 25 (22-30) mmol/L Anion Gap 15 (10-20) BUN 41 H (9-20) mg/dL Creatinine 4.8 H (0.8-1.5) mg/dL Est GFR ( Amer) 14 Est GFR (Non-Af Amer) 12 Random Glucose 126 H (75-110) mg/dL Calcium 7.2 L (8.6-10.4) mg/dl Phosphorus (2.5-4.5) mg/dL Magnesium (1.6-2.3) mg/dL Total Bilirubin 0.9 (0.2-1.3) mg/dL AST 49 (17-59) U/L ALT 38 (21-72) U/L Alkaline Phosphatase 96 (38-126) U/L Total Protein 7.3 (6.3-8.3) g/dL Albumin 3.2 L (3.5-5.0) g/dL Globulin 4.2 H (2.2-3.9) gm/dL Albumin/Globulin Ratio 0.8 L (1.0-2.1) Prostate Specific Ag 10.7 H (0.00-4.0) ng/mL Arterial Blood Potassium 4.0 (3.6-5.2) mmol/L Laboratory Results - last 24 hr 11/05/17 11/05/17 11/05/17 17:42 17:42 19:34 WBC 5.2 RBC 3.39 L Hgb 10.3 L Hct 32.7 L MCV 96.4 H MCH 30.5 MCHC 31.6 L RDW 19.9 H Plt Count 125 L D MPV 9.2 Neut % (Auto) 91.5 H Lymph % (Auto) 2.1 L [place] % (Auto) 5.3 Eos % (Auto) 0.0 Baso % (Auto) 1.1 Neut # 4.7 Lymph # 0.1 L [place] # 0.3 Eos # 0.0 Baso # 0.1 Neutrophils % (Manual) 84 H Band Neutrophils % 9 H Lymphocytes % (Manual) 3 L Monocytes % (Manual) 3 Eosinophils % (Manual) 1 Differential Comment Platelet Estimate Slightly decreased L Hypochromasia (manual) Slight Microcytosis (manual) Slight Puncture Site Rba pCO2 35 pO2 127 H HCO3 29.4 H ABG pH 7.52 H ABG Total CO2 29.7 H ABG O2 Saturation 98.6 H ABG Base Excess 5.7 H ABG Hemoglobin ABG Carboxyhemoglobin POC ABG HHb (Measured) ABG Methemoglobin Scar Test Na ABG Potassium 4.0 A-a O2 Difference 328.0 Respiratory Index 2.6 Hgb O2 Saturation Glucose 118 H Lactate 1.3 Vent Mode Prvc Mechanical Rate 18 FiO2 70.0 Tidal Volume 450 PEEP 5 Sodium 131 L 133.0 Potassium 4.2 Chloride 94 L 100.0 Carbon Dioxide 25 Anion Gap 15 BUN 41 H Creatinine 4.8 H Est GFR ( Amer) 14 Est GFR (Non-Af Amer) 12 Random Glucose 126 H Calcium 7.2 L Phosphorus Magnesium Total Bilirubin 0.9 AST 49 ALT 38 Alkaline Phosphatase 96 Total Protein 7.3 Albumin 3.2 L Globulin 4.2 H Albumin/Globulin Ratio 0.8 L Prostate Specific Ag 10.7 H Arterial Blood Potassium 4.0 11/06/17 11/06/17 11/06/17 05:27 07:51 07:51 WBC 5.9 RBC 3.26 L Hgb 10.1 L Hct 31.8 L MCV 97.5 H MCH 30.9 MCHC 31.7 L RDW 20.5 H Plt Count 101 L D MPV 10.1 Neut % (Auto) 84.7 H Lymph % (Auto) 10.4 L [place] % (Auto) 4.4 Eos % (Auto) 0.0 Baso % (Auto) 0.5 Neut # 5.0 Lymph # 0.6 L [place] # 0.3 Eos # 0.0 Baso # 0.0 Neutrophils % (Manual) Band Neutrophils % Lymphocytes % (Manual) Monocytes % (Manual) Eosinophils % (Manual) Differential Comment Platelet Estimate Hypochromasia (manual) Microcytosis (manual) Puncture Site Rb pCO2 33 L pO2 83 HCO3 27.0 ABG pH 7.50 H ABG Total CO2 26.7 ABG O2 Saturation 97.3 ABG Base Excess 2.7 ABG Hemoglobin 10.1 L ABG Carboxyhemoglobin 1.6 H POC ABG HHb (Measured) 2.6 ABG Methemoglobin 0.8 Scar Test Na ABG Potassium A-a O2 Difference 232.0 Respiratory Index 2.8 Hgb O2 Saturation 95.1 Glucose Lactate Vent Mode Prvc Mechanical Rate 18 FiO2 50.0 Tidal Volume 400 PEEP 5 Sodium 131 L Potassium 4.7 Chloride 96 L Carbon Dioxide 25 Anion Gap 16 BUN 53 H Creatinine 5.9 H Est GFR ( Amer) 11 Est GFR (Non-Af Amer) 9 Random Glucose 84 Calcium 7.3 L Phosphorus 4.8 H Magnesium 1.5 L Total Bilirubin 0.9 AST 68 H D ALT 51 Alkaline Phosphatase 95 Total Protein 7.3 Albumin 3.1 L Globulin 4.1 H Albumin/Globulin Ratio 0.8 L Prostate Specific Ag Arterial Blood Potassium Critical Care Progress Note - Nutrition Nutrition: Nutrition Category Date Time Status Renal Diet [DIET] Diets 10/27/17 Breakfast Active Assessment/Plan (1) Bradycardia Current Visit: Yes Status: Acute Comment: secondary to third-degree heart block, status post temporary pacemaker insertion Cardiology and EPS evaluation Patient refusing hemodialysis Follow-up lites Neurology evaluation Continue antibiotics for VRE (2) ESRD (end stage renal disease) on dialysis Current Visit: Yes Status: Acute (3) VRE (vancomycin resistant enterococcus) culture positive Current Visit: Yes Status: Acute (4) Cardiomyopathy Current Visit: No Status: Acute Attending/Attestation - Attestation I have personally seen and examined this patient.: Yes I have fully participated in the care of the patient.: Yes I have reviewed all pertinent clinical information: Yes Notes (Text): 11/06/17 16:43 patient seen and examined in the intensive care unit. Case discussed with house staff in the morning rounds. Patient remains intubated on ventilatory support Reduce FiO2 as tolerated CAT scan of the chest consistent with multifocal pneumonia and large pleural effusion Thoracentesis Continue antibiotics Follow-up culture and sensitivity Triple-lumen catheter inserted Continue hemodialysis Start NGT feeding Spoke with family at length
--- NOTE | 2017-11-06 12:02 | CP.PCM.PN ---
Subjective - Date & Time of Evaluation Date of Evaluation: 11/06/17 Time of Evaluation: 12:00 - Subjective Subjective: pt seen and examined, events noted intubated for respiratory distress non compliant w? hd treatments bp stable, chronically in 80s systolic ros couldnt be obtained, pt intubated Objective - Vital Signs/Intake and Output Vital Signs (last 24 hours): Temp Pulse Resp BP Pulse Ox 100.3 F H 60 20 81/43 L 99 11/06/17 08:00 11/06/17 08:47 11/06/17 08:47 11/06/17 08:47 11/06/17 08:47 Intake and Output: 11/06/17 11/06/17 06:59 18:59 Intake Total 18.0 3.0 Output Total 30 0 Balance -12.0 3.0 - Medications Medications: Current Medications Amiodarone HCl (Cordarone) 200 mg PO BID [facility] Last Admin: 11/06/17 10:09 Dose: 200 mg Calcium Acetate (Phoslo) 1,334 mg PO TIDCC [facility] Last Admin: 11/06/17 09:00 Dose: 1,334 mg Epoetin Pepe (Procrit) 10,000 unit IV MWF [facility] Last Admin: 11/05/17 13:16 Dose: 10,000 unit Heparin Sodium (Porcine) (Heparin) 5,000 units SC Q8 [facility] Last Admin: 11/06/17 05:50 Dose: 5,000 units Ferric Sodium Gluconate Complex 125 mg/ Sodium Chloride 110 mls @ 110 mls/hr IVPB DAILY [facility] Stop: 11/13/17 14:31 Last Admin: 11/06/17 10:08 Dose: 110 mls/hr Cefepime HCl (Maxipime Iv 1 Gm Premix) 1 gm in 50 mls @ 100 mls/hr IVPB Q24H [facility] Last Admin: 11/05/17 18:42 Dose: 100 mls/hr Propofol (Diprivan) 1,000 mg in 100 mls @ 1.555 mls/hr IV .Q24H PRN; Protocol; 5 MCG/KG/MIN PRN Reason: TITRATE PER MD ORDER Last Admin: 11/05/17 17:30 Dose: 5 mcg/kg/min, 1.555 mls/hr Lactulose (Enulose) 20 gm PO HS PRN PRN Reason: Constipation Midodrine (Proamatine) 10 mg PO TID [facility] Last Admin: 11/06/17 10:10 Dose: 10 mg Tamsulosin HCl (Flomax) 0.4 mg PO DAILY [facility] Last Admin: 11/06/17 10:09 Dose: 0.4 mg Vitamin B Complex/Vit C/Folic Acid (Nephro-Aleksandra) 1 tab PO DAILY [facility] Last Admin: 11/06/17 10:09 Dose: 1 tab - Labs Labs: 11/06/17 07:51 11/06/17 07:51 PT 13.9 SECONDS (9.7-12.2) H 10/24/17 06:20 INR 1.2 10/24/17 06:20 APTT 57 SECONDS (21-34) H D 10/30/17 06:12 - Constitutional Appears: No Acute Distress (intubated sedated) - Head Exam Head Exam: NORMAL INSPECTION - Eye Exam Eye Exam: Normal appearance - ENT Exam ENT Exam: Mucous Membranes Moist (et tube) - Neck Exam Neck Exam: Normal Inspection - Respiratory Exam Respiratory Exam: Decreased Breath Sounds (mechanical vent sounds) - Cardiovascular Exam Cardiovascular Exam: REGULAR RHYTHM, RRR (life vest) - GI/Abdominal Exam GI & Abdominal Exam: Distended, Soft, Normal Bowel Sounds - Extremities Exam Extremities Exam: Normal Inspection (chronic skin changes) - Neurological Exam Neurological Exam: absent: Alert, Awake (sedated) Assessment and Plan (1) Acute urinary retention Status: Acute (2) Renal failure, acute on chronic Status: Acute (3) Cardiomyopathy Status: Acute (4) Urinary retention due to benign prostatic hyperplasia Status: Acute (5) Bradycardia Status: Acute - Assessment and Plan (Free Text) Assessment: pulmonary congestion/ vdrf will dialyze today, uf as tolerated. recommend pressor support consider daily dialysis if tolerated
--- NOTE | 2017-11-06 12:13 | CP.PCM.PN ---
Subjective - Date & Time of Evaluation Date of Evaluation: 11/06/17 Time of Evaluation: 12:12 - Subjective Subjective: RESP. FAILURE , INTUBATED LOW GRADE TEMP FOR DIALYSIS PACING AT 60/MIN PROGNOSIS POOR Objective - Vital Signs/Intake and Output Vital Signs (last 24 hours): Temp Pulse Resp BP Pulse Ox 100.3 F H 60 20 81/43 L 99 11/06/17 08:00 11/06/17 08:47 11/06/17 08:47 11/06/17 08:47 11/06/17 08:47 Intake and Output: 11/06/17 11/06/17 11:59 23:59 Intake Total 13.5 Output Total 30 Balance -16.5 - Medications Medications: Current Medications Amiodarone HCl (Cordarone) 200 mg PO BID [facility] Last Admin: 11/06/17 10:09 Dose: 200 mg Calcium Acetate (Phoslo) 1,334 mg PO TIDCC [facility] Last Admin: 11/06/17 09:00 Dose: 1,334 mg Epoetin Pepe (Procrit) 10,000 unit IV MWF [facility] Last Admin: 11/05/17 13:16 Dose: 10,000 unit Heparin Sodium (Porcine) (Heparin) 5,000 units SC Q8 [facility] Last Admin: 11/06/17 05:50 Dose: 5,000 units Ferric Sodium Gluconate Complex 125 mg/ Sodium Chloride 110 mls @ 110 mls/hr IVPB DAILY [facility] Stop: 11/13/17 14:31 Last Admin: 11/06/17 10:08 Dose: 110 mls/hr Cefepime HCl (Maxipime Iv 1 Gm Premix) 1 gm in 50 mls @ 100 mls/hr IVPB Q24H [facility] Last Admin: 11/05/17 18:42 Dose: 100 mls/hr Propofol (Diprivan) 1,000 mg in 100 mls @ 1.555 mls/hr IV .Q24H PRN; Protocol; 5 MCG/KG/MIN PRN Reason: TITRATE PER MD ORDER Last Admin: 11/05/17 17:30 Dose: 5 mcg/kg/min, 1.555 mls/hr Lactulose (Enulose) 20 gm PO HS PRN PRN Reason: Constipation Midodrine (Proamatine) 10 mg PO TID [facility] Last Admin: 11/06/17 10:10 Dose: 10 mg Tamsulosin HCl (Flomax) 0.4 mg PO DAILY [facility] Last Admin: 11/06/17 10:09 Dose: 0.4 mg Vitamin B Complex/Vit C/Folic Acid (Nephro-Aleksandra) 1 tab PO DAILY [facility] Last Admin: 11/06/17 10:09 Dose: 1 tab - Labs Labs: 11/06/17 07:51 11/06/17 07:51 PT 13.9 SECONDS (9.7-12.2) H 10/24/17 06:20 INR 1.2 10/24/17 06:20 APTT 57 SECONDS (21-34) H D 10/30/17 06:12
--- NOTE | 2017-11-06 13:14 | CT ---
PROCEDURE: CT Chest without contrast HISTORY: f/u pleural effusion COMPARISON: 07/08/2017. TECHNIQUE: Contiguous axial images were obtained through the chest without intravenous contrast enhancement. Sagittal and coronal reconstructions were performed. Radiation dose (DLP): 620.62 mGy-cm. This CT exam was performed using one or more of the following dose reduction techniques: Automated exposure control, adjustment of the mA and/or kV according to patient size, and/or use of iterative reconstruction technique. FINDINGS: LUNGS: The tracheostomy tube terminates in the lower trachea. The nasogastric tube terminates in the stomach. The right IJV line terminates in the right atrium. There is interval development of multifocal consolidation in the lungs including posterior segment of the right upper lobe, left upper lobe, lingula and both lower lobes. There are no endobronchial lesions. MEDIASTINUM: The aorta is normal in caliber. There is mild cardiomegaly. No pericardial effusion. There atherosclerotic coronary artery calcifications. No pathologic bulky mediastinal adenopathy. Small subcentimeter mediastinal lymph nodes are likely reactive in etiology. PLEURA: There is interval worsening of pleural effusions, now off large on both sides. No pneumothorax. BONES: No fracture. No destructive lesion. Within normal limits for the patient's age. UPPER ABDOMEN: There is a stable simple cyst in the right hepatic dome. There is thickening of the adrenal glands without discrete nodule. OTHER FINDINGS: None. IMPRESSION: Interval development of multifocal pneumonia in both lungs, worse on the left. Worsening large pleural effusions.
[2017-11-06] MEDS: Cefepime IV 1 gm in Dextrose 1 GM/50 ML BAG IVPB SCH (18:20)
[2017-11-07] MEDS: Propofol 10 mg/ml 1,000 MG/100 ML VIAL IV PRN (05:36)
[2017-11-07 05:37] LABS: ARTERIAL BLOOD GAS HCO3 25.7 mmol/L (21-28); ARTERIAL BLOOD GAS HEMOGLOBIN 10.1 g/dL (11.7-17.4); ARTERIAL BLOOD GAS O2 SAT 96.9 % (95-98); ARTERIAL BLOOD GAS PCO2 36 mm/Hg (35-45); ARTERIAL BLOOD GAS PH 7.45 (7.35-7.45); ARTERIAL BLOOD GAS PO2 81 mm/Hg (80-100); ARTERIAL BLOOD GAS TCO2 26.1 mmol/L (22-28)
[2017-11-07 07:04] LABS: MAGNESIUM 1.7 mg/dL (1.6-2.3)
[2017-11-07 07:05] LABS: ALB/GLOB RATIO 0.7 (1.0-2.1); ALBUMIN 2.7 g/dL (3.5-5.0); CALCIUM 7.1 mg/dl (8.6-10.4)
[2017-11-07 07:25] LABS: BASO % 0.3 % (0.0-2.0); EOS % 0.1 % (0.0-4.0); HEMOGLOBIN 10.1 g/dL (12.0-18.0); LYMPH # 0.3 K/uL (1.0-4.3); LYMPH % 6.4 % (20.0-40.0); MEAN CELL VOLUME 96.1 fL (80.0-94.0); MEAN CORPUSCULAR HGB CONC 32.3 g/dL (33.0-37.0); MEAN PLATELET VOLUME 10.1 fL (7.2-11.7); MONO # 0.1 K/uL (0.0-0.8); MONO % 2.5 % (0.0-10.0); NEUT # 4.3 K/uL (1.8-7.0); NEUT % 90.7 % (50.0-75.0); NRBC % 0.3 % (0.0-2.0); PLATELET COUNT 111 K/uL (130-400); RBC 3.25 Mil/uL (4.40-5.90); RED CELL DISTRIBUTION WIDTH 19.5 % (11.5-14.5); WHITE BLOOD COUNT 4.7 K/uL (4.8-10.8)
--- NOTE | 2017-11-07 08:37 | RAD ---
PROCEDURE: CHEST RADIOGRAPH, 1 VIEW HISTORY: intubated patient COMPARISON: None available. FINDINGS: Telemetry devices obscure the chest once again. An endotracheal tube is identified not significantly changed in position as well as nasogastric tube. Left central venous line is unchanged in position as well as right central venous dialysis catheter. Cardiac pacemaker again evident. LUNGS: Heterogeneous infiltrates are unchanged remaining greater the left and right sides. PLEURA: Mild bilateral pleural effusions are suspected. No pneumothorax identified bilaterally once again. CARDIOVASCULAR: Stable cardiomegaly noted. Borderline pulmonary venous congestion is difficult to exclude given bilateral infiltrates obscuring the hilar regions bilaterally. OSSEOUS STRUCTURES: No significant abnormalities. VISUALIZED UPPER ABDOMEN: Normal. OTHER FINDINGS: None. IMPRESSION: Stable bilateral infiltrates remaining greater the left and right sides with underlying CHF not completely excluded though not proven either. Continued clinical and radiographic monitoring are advised.
[2017-11-07] MEDS ORDERED: Ferric Sodium Gluconat Complex 62.5 mg/5 ml Vial ONE (09:32)
[2017-11-07] MEDS: Multivitamin Vitamin B Complex (Nephro-Vite) Tab PO SCH (09:33)
[2017-11-07 09:47] LABS: BANDS 16 % (0-2); LYMPHOCYTE 1 % (20-40); NEUTROPHIL 83 % (50-75); TOTAL CELLS COUNTED 100
[2017-11-07 09:49] LABS: ANISOCYTOSIS SLIGHT; PLATELET ESTIMATE SLIGHTLY DECREASED (NORMAL)
[2017-11-07 09:50] LABS: HYPOCHROMIC SLIGHT; POLYCHROMIC SLIGHT; TARGET CELLS SLIGHT
[2017-11-07 09:51] LABS: TEARDROP CELLS SLIGHT
[2017-11-07] MEDS: Ferric Sodium Gluconat Complex 125 MG in Sodium Chloride 0.9% 100 ML IVPB SCH (10:05)
--- NOTE | 2017-11-07 10:25 | CP.CCUPN ---
<Krishna Broosk - Last Filed: 11/07/17 10:58> CCU Subjective - Physician Review Events Since Last Encounter (Free Text): 11/07/17 10:25 Patient seen and examined at bedside. Intubated 18, 400, 5, 50 Dialysis currently Chest tube later today Sanon removed yesterday, no UO Still fever with increased bands, contacted ID, will add vanco stat dose and then continue MWF, will also add zithromax family at bedside, discussed in detail 11/07/17 10:59 CCU Objective - Vital Signs / Intake & Output Vital Signs (Last 4 hours): Vital Signs Temp Pulse Resp BP Pulse Ox 11/07/17 09:00 60 22 100 11/07/17 08:05 60 22 104/54 L 98 11/07/17 08:00 98.3 F 11/07/17 07:05 60 20 94/46 L 96 Intake and Output (Last 8hrs): Intake & Output 11/06/17 11/07/17 11/07/17 22:59 06:59 14:59 Intake Total 956.6 692.3 113.8 Output Total 0 0 Balance 956.6 692.3 113.8 Weight 112 lb Intake: IV 422.8 180.2 Intake, IV Amount 413.8 332.1 73.8 Left Distal Port 100 Left Medial Port 300.2 304.2 67.6 Left Proximal Port 13.6 27.9 6.2 Right Antecubital 0 Tube Feeding 120 180 40 Output: Emesis 0 0 Other: # Voids Urethral (Sanon) 0 # Bowel Movements 0 1 1 - Physical Exam Head: Positive for: Atraumatic, Normocephalic Extroacular Muscles: Positive for: EOMI. Negative for: Gaze Palsy Conjunctiva: Positive for: Normal Mouth: Positive for: Moist Mucous Membranes, Normal Lips Neck: Positive for: Normal Range of Motion, Other (L IJ) Respiratory/Chest: Positive for: Clear to Auscultation, Other (intubated) Cardiovascular: Positive for: Regular Rate and Rhythm Abdomen: Positive for: Normal Bowel Sounds Upper Extremity: Positive for: Normal Inspection, Capillary Refill < 2s. Negative for: Edema Lower Extremity: Positive for: Normal Inspection, Capillary Refill < 2 s. Negative for: Edema Neurological: Positive for: Speech Normal Psychiatric: Positive for: Alert, Oriented x 3 - Medications Active Medications: Active Medications Generic Name Dose Route Start Last Admin Trade Name Freq PRN Reason Stop Dose Admin Acetaminophen 650 mg 11/06/17 23:47 Tylenol 650mg/20.3ml Solution Ud PO Q4 PRN Temperature Amiodarone HCl 200 mg 11/05/17 17:17 11/07/17 09:33 Cordarone PO 200 mg BID TANI Administration Calcium Acetate 1,334 mg 10/27/17 09:29 11/07/17 09:33 Phoslo PO 1,334 mg TIDCC TANI Administration Epoetin Pepe 10,000 unit 10/22/17 14:30 11/05/17 13:16 Procrit IV 10,000 unit MWF TANI Administration Heparin Sodium (Porcine) 5,000 units 10/30/17 22:00 11/07/17 05:36 Heparin SC 5,000 units Q8 TANI Administration Ferric Sodium Gluconate 110 mls @ 110 mls/hr 11/05/17 14:30 11/07/17 10:05 Complex 125 mg/ Sodium IVPB 11/13/17 14:31 110 mls/hr Chloride DAILY TANI Administration Cefepime HCl 1 gm in 50 mls @ 100 mls/hr 11/05/17 19:00 11/06/17 18:20 Maxipime Iv 1 Gm Premix IVPB 100 mls/hr Q24H TANI Administration Propofol 1,000 mg in 100 mls @ 1.555 mls/hr 11/05/17 18:43 11/07/17 05:36 Diprivan IV 10 mcg/kg/min .Q24H PRN 3.111 mls/hr TITRATE PER MD ORDER Administration Protocol 5 MCG/KG/MIN Norepinephrine Bitartrate 4 mg 254 mls @ 19.05 mls/hr 11/06/17 13:00 02:54 / Sodium Chloride IV 9 mcg/min .[id number] PRN 34.29 mls/hr TITRATE PER MD ORDER Administration Protocol 5 MCG/MIN Lactulose 20 gm 10/29/17 22:00 Enulose PO HS PRN Constipation Midodrine 10 mg 10/26/17 08:33 11/07/17 09:34 Proamatine PO 10 mg TID TANI Administration Tamsulosin HCl 0.4 mg 10/12/17 10:00 11/07/17 09:34 Flomax PO 0.4 mg DAILY TANI Administration Vitamin B Complex/Vit C/Folic Acid 1 tab 10/12/17 10:00 11/07/17 09:33 Nephro-Aleksandra PO 1 tab DAILY TANI Administration - Patient Studies Lab Studies: Microbiology Studies 11/05/17 18:00 MRSA Culture (Admit) - Final Naris MRSA NOT DETECTED 11/05/17 18:00 Blood Culture - Preliminary Blood-Venous NO GROWTH AFTER 24 HOURS 11/05/17 18:00 Blood Culture - Preliminary Blood-Venous NO GROWTH AFTER 24 HOURS Lab Studies 11/07/17 11/07/17 11/07/17 Range/Units 06:30 06:30 06:27 WBC 4.7 L (4.8-10.8) K/uL RBC 3.25 L (4.40-5.90) Mil/uL Hgb 10.1 L (12.0-18.0) g/dL Hct 31.3 L (35.0-51.0) % MCV 96.1 H (80.0-94.0) fL MCH 31.0 (27.0-31.0) pg MCHC 32.3 L (33.0-37.0) g/dL RDW 19.5 H (11.5-14.5) % Plt Count 111 L (130-400) K/uL MPV 10.1 (7.2-11.7) fL Neut % (Auto) 90.7 H (50.0-75.0) % Lymph % (Auto) 6.4 L (20.0-40.0) % Trigg % (Auto) 2.5 (0.0-10.0) % Eos % (Auto) 0.1 (0.0-4.0) % Baso % (Auto) 0.3 (0.0-2.0) % Neut # 4.3 (1.8-7.0) K/uL Lymph # 0.3 L (1.0-4.3) K/uL Trigg # 0.1 (0.0-0.8) K/uL Eos # 0.0 (0.0-0.7) K/uL Baso # 0.0 (0.0-0.2) K/uL Neutrophils % (Manual) 83 H (50-75) % Band Neutrophils % 16 H* (0-2) % Lymphocytes % (Manual) 1 L (20-40) % Monocytes % (Manual) TEST NOT PERFORMED Differential Comment Platelet Estimate Slightly decreased L (NORMAL) Polychromasia Slight Hypochromasia (manual) Slight Anisocytosis (manual) Slight Target Cells Slight Tear Drop Cells Slight Puncture Site pCO2 (35-45) mm/Hg pO2 (80-100) mm/Hg HCO3 (21-28) mmol/L ABG pH (7.35-7.45) ABG Total CO2 (22-28) mmol/L ABG O2 Saturation (95-98) % ABG Base Excess (-2.0-3.0) mmol/L ABG Hemoglobin (11.7-17.4) g/dL ABG Carboxyhemoglobin (0.5-1.5) % POC ABG HHb (Measured) (0.0-5.0) % ABG Methemoglobin (0.0-3.0) % Scar Test A-a O2 Difference mm/Hg Respiratory Index Hgb O2 Saturation (95.0-98.0) % Vent Mode Mechanical Rate FiO2 % Tidal Volume PEEP Sodium 130 L (132-148) mmol/L Potassium 4.5 (3.6-5.2) mmol/L Chloride 98 (98-107) mmol/L Carbon Dioxide 25 (22-30) mmol/L Anion Gap 11 (10-20) BUN 46 H (9-20) mg/dL Creatinine 4.6 H (0.8-1.5) mg/dL Est GFR ( Amer) 15 Est GFR (Non-Af Amer) 12 Random Glucose 112 H (75-110) mg/dL Calcium 7.1 L (8.6-10.4) mg/dl Phosphorus 4.4 (2.5-4.5) mg/dL Magnesium 1.7 (1.6-2.3) mg/dL Total Bilirubin 0.8 (0.2-1.3) mg/dL AST 91 H D (17-59) U/L ALT 58 (21-72) U/L Alkaline Phosphatase 116 (38-126) U/L Total Protein 6.4 (6.3-8.3) g/dL Albumin 2.7 L (3.5-5.0) g/dL Globulin 3.8 (2.2-3.9) gm/dL Albumin/Globulin Ratio 0.7 L (1.0-2.1) Procalcitonin (0.19-0.49) NG/ML 11/07/17 11/06/17 11/06/17 Range/Units 05:04 12:07 07:51 WBC (4.8-10.8) K/uL RBC (4.40-5.90) Mil/uL Hgb (12.0-18.0) g/dL Hct (35.0-51.0) % MCV (80.0-94.0) fL MCH (27.0-31.0) pg MCHC (33.0-37.0) g/dL RDW (11.5-14.5) % Plt Count (130-400) K/uL MPV (7.2-11.7) fL Neut % (Auto) (50.0-75.0) % Lymph % (Auto) (20.0-40.0) % Trigg % (Auto) (0.0-10.0) % Eos % (Auto) (0.0-4.0) % Baso % (Auto) (0.0-2.0) % Neut # (1.8-7.0) K/uL Lymph # (1.0-4.3) K/uL Trigg # (0.0-0.8) K/uL Eos # (0.0-0.7) K/uL Baso # (0.0-0.2) K/uL Neutrophils % (Manual) (50-75) % Band Neutrophils % (0-2) % Lymphocytes % (Manual) (20-40) % Monocytes % (Manual) Differential Comment Platelet Estimate (NORMAL) Polychromasia Hypochromasia (manual) Anisocytosis (manual) Target Cells Tear Drop Cells Puncture Site Rb pCO2 36 (35-45) mm/Hg pO2 81 (80-100) mm/Hg HCO3 25.7 (21-28) mmol/L ABG pH 7.45 (7.35-7.45) ABG Total CO2 26.1 (22-28) mmol/L ABG O2 Saturation 96.9 (95-98) % ABG Base Excess 1.1 (-2.0-3.0) mmol/L ABG Hemoglobin 10.1 L (11.7-17.4) g/dL ABG Carboxyhemoglobin 1.3 (0.5-1.5) % POC ABG HHb (Measured) 3.0 (0.0-5.0) % ABG Methemoglobin 1.0 (0.0-3.0) % Scar Test Na A-a O2 Difference 231.0 mm/Hg Respiratory Index 2.9 Hgb O2 Saturation 94.6 L (95.0-98.0) % Vent Mode Prvc Mechanical Rate 18 FiO2 50.0 % Tidal Volume 400 PEEP 5 Sodium (132-148) mmol/L Potassium (3.6-5.2) mmol/L Chloride (98-107) mmol/L Carbon Dioxide (22-30) mmol/L Anion Gap (10-20) BUN (9-20) mg/dL Creatinine (0.8-1.5) mg/dL Est GFR ( Amer) Est GFR (Non-Af Amer) Random Glucose (75-110) mg/dL Calcium (8.6-10.4) mg/dl Phosphorus (2.5-4.5) mg/dL Magnesium (1.6-2.3) mg/dL Total Bilirubin (0.2-1.3) mg/dL AST (17-59) U/L ALT (21-72) U/L Alkaline Phosphatase (38-126) U/L Total Protein (6.3-8.3) g/dL Albumin (3.5-5.0) g/dL Globulin (2.2-3.9) gm/dL Albumin/Globulin Ratio (1.0-2.1) Procalcitonin 5.99 H (0.19-0.49) NG/ML Laboratory Results - last 24 hr 11/06/17 11/06/17 11/07/17 07:51 12:07 05:04 WBC RBC Hgb Hct MCV MCH MCHC RDW Plt Count MPV Neut % (Auto) Lymph % (Auto) Trigg % (Auto) Eos % (Auto) Baso % (Auto) Neut # Lymph # Trigg # Eos # Baso # Neutrophils % (Manual) Band Neutrophils % Lymphocytes % (Manual) Monocytes % (Manual) Differential Comment Platelet Estimate Polychromasia Hypochromasia (manual) Anisocytosis (manual) Target Cells Tear Drop Cells Puncture Site Rb pCO2 36 pO2 81 HCO3 25.7 ABG pH 7.45 ABG Total CO2 26.1 ABG O2 Saturation 96.9 ABG Base Excess 1.1 ABG Hemoglobin 10.1 L ABG Carboxyhemoglobin 1.3 POC ABG HHb (Measured) 3.0 ABG Methemoglobin 1.0 Scar Test Na A-a O2 Difference 231.0 Respiratory Index 2.9 Hgb O2 Saturation 94.6 L Vent Mode Prvc Mechanical Rate 18 FiO2 50.0 Tidal Volume 400 PEEP 5 Sodium Potassium Chloride Carbon Dioxide Anion Gap BUN Creatinine Est GFR ( Amer) Est GFR (Non-Af Amer) Random Glucose Calcium Phosphorus Magnesium Total Bilirubin AST ALT Alkaline Phosphatase Total Protein Albumin Globulin Albumin/Globulin Ratio Procalcitonin 5.99 H 11/07/17 11/07/17 11/07/17 06:27 06:30 06:30 WBC 4.7 L RBC 3.25 L Hgb 10.1 L Hct 31.3 L MCV 96.1 H MCH 31.0 MCHC 32.3 L RDW 19.5 H Plt Count 111 L MPV 10.1 Neut % (Auto) 90.7 H Lymph % (Auto) 6.4 L Trigg % (Auto) 2.5 Eos % (Auto) 0.1 Baso % (Auto) 0.3 Neut # 4.3 Lymph # 0.3 L Trigg # 0.1 Eos # 0.0 Baso # 0.0 Neutrophils % (Manual) 83 H Band Neutrophils % 16 H* Lymphocytes % (Manual) 1 L Monocytes % (Manual) TEST NOT PERFORMED Differential Comment Platelet Estimate Slightly decreased L Polychromasia Slight Hypochromasia (manual) Slight Anisocytosis (manual) Slight Target Cells Slight Tear Drop Cells Slight Puncture Site pCO2 pO2 HCO3 ABG pH ABG Total CO2 ABG O2 Saturation ABG Base Excess ABG Hemoglobin ABG Carboxyhemoglobin POC ABG HHb (Measured) ABG Methemoglobin Scar Test A-a O2 Difference Respiratory Index Hgb O2 Saturation Vent Mode Mechanical Rate FiO2 Tidal Volume PEEP Sodium 130 L Potassium 4.5 Chloride 98 Carbon Dioxide 25 Anion Gap 11 BUN 46 H Creatinine 4.6 H Est GFR ( Amer) 15 Est GFR (Non-Af Amer) 12 Random Glucose 112 H Calcium 7.1 L Phosphorus 4.4 Magnesium 1.7 Total Bilirubin 0.8 AST 91 H D ALT 58 Alkaline Phosphatase 116 Total Protein 6.4 Albumin 2.7 L Globulin 3.8 Albumin/Globulin Ratio 0.7 L Procalcitonin Critical Care Progress Note - Nutrition Nutrition: Nutrition Category Date Time Status Renal Diet [DIET] Diets 10/27/17 Breakfast Active Assessment/Plan - Assessment and Plan (Free Text) Assessment: 77M w/ Respiratory distress, intubated Plan: Cardio Cards ([place]) Lifevest Amiodarone 200 PO BID Pulm Intubated Vent 18/400/5/80 Large pleural effusion, Chest tube today Multifocal pneumonia, Cefepime 1g IV QD Propofol Light sedation Renal Nephro ([place]) ESRD on dialysis has been noncomplinant on dialysis, refusing to finish sessions Uro (Gildardo Varela) urinary retention - flomax 0.4 PO QD sanon removed today ID ID (Debra) - Calin covering fever 99.7. Tylenol per NGT f/u blood cultures - negative to date f/u urine cultures - negative to date cefepime 1g IV qd, zithromax 500 IV, Vanco 1g stat dose, Vanco MWF Procal 5.99 Hypotensive today. TLC inserted L. IJ PPx Heparin 5000 SC Q8 PT/OT Renal Diet <Manjit Krueger S - Last Filed: 11/07/17 16:40> CCU Objective - Vital Signs / Intake & Output Vital Signs (Last 4 hours): Vital Signs Temp Pulse Pulse Resp BP BP Pulse Ox 11/07/17 16:00 60 23 99 11/07/17 15:48 60 20 99/46 L 98 11/07/17 15:21 60 17 91/42 L 98 11/07/17 15:00 60 20 93 L 11/07/17 14:48 60 20 88/35 L 95 11/07/17 14:00 60 21 97 11/07/17 13:48 60 18 105/41 L 96 11/07/17 13:00 59 L 22 98 11/07/17 12:48 57 L 25 H 103/47 L 99 11/07/17 12:45 98.4 F 60 19 97/49 L 99 11/07/17 12:40 60 22 97/49 L 98 Intake and Output (Last 8hrs): Intake & Output 11/07/17 11/07/17 11/07/17 06:59 14:59 22:59 Intake Total 692.3 703.8 592.4 Output Total 0 1050 Balance 692.3 703.8 -457.6 Weight 112 lb Intake: IV 180.2 254 Intake, IV Amount 332.1 279.8 532.4 Left Distal Port 450 Left Medial Port 304.2 258.1 76.2 Left Proximal Port 27.9 21.7 6.2 Tube Feeding 180 170 60 Output: Chest Tube Drainage 1050 Right Posterior Chest 1050 Emesis 0 0 Other: # Bowel Movements 1 0 0 - Medications Active Medications: Active Medications Generic Name Dose Route Start Last Admin Trade Name Freq PRN Reason Stop Dose Admin Acetaminophen 650 mg 11/06/17 23:47 Tylenol 650mg/20.3ml Solution Ud PO Q4 PRN Temperature Amiodarone HCl 200 mg 11/05/17 17:17 11/07/17 09:33 Cordarone PO 200 mg BID TANI Administration Calcium Acetate 1,334 mg 10/27/17 09:29 11/07/17 13:08 Phoslo PO 1,334 mg TIDCC TANI Administration Epoetin Pepe 10,000 unit 10/22/17 14:30 11/05/17 13:16 Procrit IV 10,000 unit MWF TANI Administration Heparin Sodium (Porcine) 5,000 units 10/30/17 22:00 11/07/17 15:33 Heparin SC 5,000 units Q8 TANI Administration Ferric Sodium Gluconate 110 mls @ 110 mls/hr 11/05/17 14:30 11/07/17 10:05 Complex 125 mg/ Sodium IVPB 11/13/17 14:31 110 mls/hr Chloride DAILY TANI Administration Cefepime HCl 1 gm in 50 mls @ 100 mls/hr 11/05/17 19:00 11/06/17 18:20 Maxipime Iv 1 Gm Premix IVPB 100 mls/hr Q24H TANI Administration Propofol 1,000 mg in 100 mls @ 1.555 mls/hr 11/05/17 18:43 11/07/17 05:36 Diprivan IV 10 mcg/kg/min .Q24H PRN 3.111 mls/hr TITRATE PER MD ORDER Administration Protocol 5 MCG/KG/MIN Norepinephrine Bitartrate 4 mg 254 mls @ 19.05 mls/hr 11/06/17 13:00 10:10 / Sodium Chloride IV 10 mcg/min .[id number] PRN 38.1 mls/hr TITRATE PER MD ORDER Administration Protocol 5 MCG/MIN Azithromycin 500 mg/ Sodium 250 mls @ 250 mls/hr 11/07/17 13:00 11/07/17 13: 12 Chloride IVPB 250 mls/hr Q24H TANI Administration Vancomycin HCl 1 gm/ Sodium 200 mls @ 166.7 mls/hr 11/09/17 12:00 Chloride IVPB MWF TANI Lactulose 20 gm 10/29/17 22:00 Enulose PO HS PRN Constipation Midodrine 10 mg 10/26/17 08:33 11/07/17 13:09 Proamatine PO 10 mg TID TANI Administration Tamsulosin HCl 0.4 mg 10/12/17 10:00 11/07/17 09:34 Flomax PO 0.4 mg DAILY TANI Administration Vitamin B Complex/Vit C/Folic Acid 1 tab 10/12/17 10:00 11/07/17 09:33 Nephro-Aleksandra PO 1 tab DAILY TANI Administration - Patient Studies Lab Studies: Microbiology Studies 11/05/17 18:00 MRSA Culture (Admit) - Final Naris MRSA NOT DETECTED 11/05/17 18:00 Blood Culture - Preliminary Blood-Venous NO GROWTH AFTER 24 HOURS 11/05/17 18:00 Blood Culture - Preliminary Blood-Venous NO GROWTH AFTER 24 HOURS Lab Studies 11/07/17 11/07/17 11/07/17 Range/Units 15:53 06:30 06:30 WBC (4.8-10.8) K/uL RBC (4.40-5.90) Mil/uL Hgb (12.0-18.0) g/dL Hct (35.0-51.0) % MCV (80.0-94.0) fL MCH (27.0-31.0) pg MCHC (33.0-37.0) g/dL RDW (11.5-14.5) % Plt Count (130-400) K/uL MPV (7.2-11.7) fL Neut % (Auto) (50.0-75.0) % Lymph % (Auto) (20.0-40.0) % Trigg % (Auto) (0.0-10.0) % Eos % (Auto) (0.0-4.0) % Baso % (Auto) (0.0-2.0) % Neut # (1.8-7.0) K/uL Lymph # (1.0-4.3) K/uL Trigg # (0.0-0.8) K/uL Eos # (0.0-0.7) K/uL Baso # (0.0-0.2) K/uL Neutrophils % (Manual) (50-75) % Band Neutrophils % (0-2) % Lymphocytes % (Manual) (20-40) % Monocytes % (Manual) Platelet Estimate (NORMAL) Polychromasia Hypochromasia (manual) Anisocytosis (manual) Target Cells Tear Drop Cells Puncture Site pCO2 (35-45) mm/Hg pO2 (80-100) mm/Hg HCO3 (21-28) mmol/L ABG pH (7.35-7.45) ABG Total CO2 (22-28) mmol/L ABG O2 Saturation (95-98) % ABG Base Excess (-2.0-3.0) mmol/L ABG Hemoglobin (11.7-17.4) g/dL ABG Carboxyhemoglobin (0.5-1.5) % POC ABG HHb (Measured) (0.0-5.0) % ABG Methemoglobin (0.0-3.0) % Scar Test A-a O2 Difference mm/Hg Respiratory Index Hgb O2 Saturation (95.0-98.0) % Vent Mode Mechanical Rate FiO2 % Tidal Volume PEEP Sodium 130 L (132-148) mmol/L Potassium 4.5 (3.6-5.2) mmol/L Chloride 98 (98-107) mmol/L Carbon Dioxide 25 (22-30) mmol/L Anion Gap 11 (10-20) BUN 46 H (9-20) mg/dL Creatinine 4.6 H (0.8-1.5) mg/dL Est GFR ( Amer) 15 Est GFR (Non-Af Amer) 12 Random Glucose 112 H (75-110) mg/dL Calcium 7.1 L (8.6-10.4) mg/dl Phosphorus 4.4 (2.5-4.5) mg/dL Magnesium 1.7 (1.6-2.3) mg/dL Total Bilirubin 0.8 (0.2-1.3) mg/dL AST 91 H D (17-59) U/L ALT 58 (21-72) U/L Alkaline Phosphatase 116 (38-126) U/L Total Protein 6.4 (6.3-8.3) g/dL Albumin 2.7 L (3.5-5.0) g/dL Globulin 3.8 (2.2-3.9) gm/dL Albumin/Globulin Ratio 0.7 L (1.0-2.1) Procalcitonin (0.19-0.49) NG/ML Fluid Source Pleural 11/07/17 11/07/17 11/06/17 Range/Units 06:27 05:04 12:07 WBC 4.7 L (4.8-10.8) K/uL RBC 3.25 L (4.40-5.90) Mil/uL Hgb 10.1 L (12.0-18.0) g/dL Hct 31.3 L (35.0-51.0) % MCV 96.1 H (80.0-94.0) fL MCH 31.0 (27.0-31.0) pg MCHC 32.3 L (33.0-37.0) g/dL RDW 19.5 H (11.5-14.5) % Plt Count 111 L (130-400) K/uL MPV 10.1 (7.2-11.7) fL Neut % (Auto) 90.7 H (50.0-75.0) % Lymph % (Auto) 6.4 L (20.0-40.0) % Trigg % (Auto) 2.5 (0.0-10.0) % Eos % (Auto) 0.1 (0.0-4.0) % Baso % (Auto) 0.3 (0.0-2.0) % Neut # 4.3 (1.8-7.0) K/uL Lymph # 0.3 L (1.0-4.3) K/uL Trigg # 0.1 (0.0-0.8) K/uL Eos # 0.0 (0.0-0.7) K/uL Baso # 0.0 (0.0-0.2) K/uL Neutrophils % (Manual) 83 H (50-75) % Band Neutrophils % 16 H* (0-2) % Lymphocytes % (Manual) 1 L (20-40) % Monocytes % (Manual) TEST NOT PERFORMED Platelet Estimate Slightly decreased L (NORMAL) Polychromasia Slight Hypochromasia (manual) Slight Anisocytosis (manual) Slight Target Cells Slight Tear Drop Cells Slight Puncture Site Rb pCO2 36 (35-45) mm/Hg pO2 81 (80-100) mm/Hg HCO3 25.7 (21-28) mmol/L ABG pH 7.45 (7.35-7.45) ABG Total CO2 26.1 (22-28) mmol/L ABG O2 Saturation 96.9 (95-98) % ABG Base Excess 1.1 (-2.0-3.0) mmol/L ABG Hemoglobin 10.1 L (11.7-17.4) g/dL ABG Carboxyhemoglobin 1.3 (0.5-1.5) % POC ABG HHb (Measured) 3.0 (0.0-5.0) % ABG Methemoglobin 1.0 (0.0-3.0) % Scar Test Na A-a O2 Difference 231.0 mm/Hg Respiratory Index 2.9 Hgb O2 Saturation 94.6 L (95.0-98.0) % Vent Mode Prvc Mechanical Rate 18 FiO2 50.0 % Tidal Volume 400 PEEP 5 Sodium (132-148) mmol/L Potassium (3.6-5.2) mmol/L Chloride (98-107) mmol/L Carbon Dioxide (22-30) mmol/L Anion Gap (10-20) BUN (9-20) mg/dL Creatinine (0.8-1.5) mg/dL Est GFR ( Amer) Est GFR (Non-Af Amer) Random Glucose (75-110) mg/dL Calcium (8.6-10.4) mg/dl Phosphorus (2.5-4.5) mg/dL Magnesium (1.6-2.3) mg/dL Total Bilirubin (0.2-1.3) mg/dL AST (17-59) U/L ALT (21-72) U/L Alkaline Phosphatase (38-126) U/L Total Protein (6.3-8.3) g/dL Albumin (3.5-5.0) g/dL Globulin (2.2-3.9) gm/dL Albumin/Globulin Ratio (1.0-2.1) Procalcitonin 5.99 H (0.19-0.49) NG/ML Fluid Source Laboratory Results - last 24 hr 11/06/17 11/07/17 11/07/17 12:07 05:04 06:27 WBC 4.7 L RBC 3.25 L Hgb 10.1 L Hct 31.3 L MCV 96.1 H MCH 31.0 MCHC 32.3 L RDW 19.5 H Plt Count 111 L MPV 10.1 Neut % (Auto) 90.7 H Lymph % (Auto) 6.4 L Trigg % (Auto) 2.5 Eos % (Auto) 0.1 Baso % (Auto) 0.3 Neut # 4.3 Lymph # 0.3 L Trigg # 0.1 Eos # 0.0 Baso # 0.0 Neutrophils % (Manual) 83 H Band Neutrophils % 16 H* Lymphocytes % (Manual) 1 L Monocytes % (Manual) TEST NOT PERFORMED Platelet Estimate Slightly decreased L Polychromasia Slight Hypochromasia (manual) Slight Anisocytosis (manual) Slight Target Cells Slight Tear Drop Cells Slight Puncture Site Rb pCO2 36 pO2 81 HCO3 25.7 ABG pH 7.45 ABG Total CO2 26.1 ABG O2 Saturation 96.9 ABG Base Excess 1.1 ABG Hemoglobin 10.1 L ABG Carboxyhemoglobin 1.3 POC ABG HHb (Measured) 3.0 ABG Methemoglobin 1.0 Scar Test Na A-a O2 Difference 231.0 Respiratory Index 2.9 Hgb O2 Saturation 94.6 L Vent Mode Prvc Mechanical Rate 18 FiO2 50.0 Tidal Volume 400 PEEP 5 Sodium Potassium Chloride Carbon Dioxide Anion Gap BUN Creatinine Est GFR ( Amer) Est GFR (Non-Af Amer) Random Glucose Calcium Phosphorus Magnesium Total Bilirubin AST ALT Alkaline Phosphatase Total Protein Albumin Globulin Albumin/Globulin Ratio Procalcitonin 5.99 H Fluid Source 11/07/17 11/07/17 11/07/17 06:30 06:30 15:53 WBC RBC Hgb Hct MCV MCH MCHC RDW Plt Count MPV Neut % (Auto) Lymph % (Auto) Trigg % (Auto) Eos % (Auto) Baso % (Auto) Neut # Lymph # Trigg # Eos # Baso # Neutrophils % (Manual) Band Neutrophils % Lymphocytes % (Manual) Monocytes % (Manual) Platelet Estimate Polychromasia Hypochromasia (manual) Anisocytosis (manual) Target Cells Tear Drop Cells Puncture Site pCO2 pO2 HCO3 ABG pH ABG Total CO2 ABG O2 Saturation ABG Base Excess ABG Hemoglobin ABG Carboxyhemoglobin POC ABG HHb (Measured) ABG Methemoglobin Scar Test A-a O2 Difference Respiratory Index Hgb O2 Saturation Vent Mode Mechanical Rate FiO2 Tidal Volume PEEP Sodium 130 L Potassium 4.5 Chloride 98 Carbon Dioxide 25 Anion Gap 11 BUN 46 H Creatinine 4.6 H Est GFR ( Amer) 15 Est GFR (Non-Af Amer) 12 Random Glucose 112 H Calcium 7.1 L Phosphorus 4.4 Magnesium 1.7 Total Bilirubin 0.8 AST 91 H D ALT 58 Alkaline Phosphatase 116 Total Protein 6.4 Albumin 2.7 L Globulin 3.8 Albumin/Globulin Ratio 0.7 L Procalcitonin Fluid Source Pleural Critical Care Progress Note - Nutrition Nutrition: Nutrition Category Date Time Status Renal Diet [DIET] Diets 10/27/17 Breakfast Active Assessment/Plan (1) Bradycardia Current Visit: Yes Status: Acute Comment: secondary to third-degree heart block, status post temporary pacemaker insertion Cardiology and EPS evaluation Patient refusing hemodialysis Follow-up lites Neurology evaluation Continue antibiotics for VRE (2) ESRD (end stage renal disease) on dialysis Current Visit: Yes Status: Acute (3) VRE (vancomycin resistant enterococcus) culture positive Current Visit: Yes Status: Acute (4) Cardiomyopathy Current Visit: No Status: Acute Attending/Attestation - Attestation I have personally seen and examined this patient.: Yes I have fully participated in the care of the patient.: Yes I have reviewed all pertinent clinical information: Yes Notes (Text): 11/07/17 16:38 patient seen and examined in the intensive care unit Remains intubated on ventilatory support Status post hemodialysis Pigtail catheter inserted on the right side for large pleural effusion Small pneumothorax noted Pigtail catheter on suction Follow-up culture and sensitivity of pleural fluid Continue antibiotics per infectious disease Start weaning Continue feeding
--- NOTE | 2017-11-07 11:10 | CP.PCM.PN ---
Subjective - Date & Time of Evaluation Date of Evaluation: 11/07/17 Time of Evaluation: 11:08 - Subjective Subjective: INTUBATED ON RESP LOW GRADE TEMP SYS BP IN 100 CT CHEST , SPENCER PNEUMONIA WITH LARGE L PL EFFUSION , CHEST TUBE CARDIAC RHYTHM STABLE Objective - Vital Signs/Intake and Output Vital Signs (last 24 hours): Temp Pulse Resp BP Pulse Ox 98.9 F 60 24 91/49 L 99 11/07/17 09:45 11/07/17 09:45 11/07/17 09:45 11/07/17 10:30 11/07/17 09:45 Intake and Output: 11/06/17 11/07/17 23:59 11:59 Intake Total 1117.1 692.3 Output Total 5 0 Balance 1112.1 692.3 - Medications Medications: Current Medications Acetaminophen (Tylenol 650mg/20.3ml Solution Ud) 650 mg PO Q4 PRN PRN Reason: Temperature Amiodarone HCl (Cordarone) 200 mg PO BID [facility] Last Admin: 11/07/17 09:33 Dose: 200 mg Calcium Acetate (Phoslo) 1,334 mg PO TIDCC [facility] Last Admin: 11/07/17 09:33 Dose: 1,334 mg Epoetin Pepe (Procrit) 10,000 unit IV MWF [facility] Last Admin: 11/05/17 13:16 Dose: 10,000 unit Heparin Sodium (Porcine) (Heparin) 5,000 units SC Q8 [facility] Last Admin: 11/07/17 05:36 Dose: 5,000 units Ferric Sodium Gluconate Complex 125 mg/ Sodium Chloride 110 mls @ 110 mls/hr IVPB DAILY [facility] Stop: 11/13/17 14:31 Last Admin: 11/07/17 10:05 Dose: 110 mls/hr Cefepime HCl (Maxipime Iv 1 Gm Premix) 1 gm in 50 mls @ 100 mls/hr IVPB Q24H [facility] Last Admin: 11/06/17 18:20 Dose: 100 mls/hr Propofol (Diprivan) 1,000 mg in 100 mls @ 1.555 mls/hr IV .Q24H PRN; Protocol; 5 MCG/KG/MIN PRN Reason: TITRATE PER MD ORDER Last Admin: 11/07/17 05:36 Dose: 10 mcg/kg/min, 3.111 mls/hr Norepinephrine Bitartrate 4 mg (/ Sodium Chloride) 254 mls @ 19.05 mls/hr IV .[id number] PRN; Protocol; 5 MCG/MIN PRN Reason: TITRATE PER MD ORDER Last Admin: 11/07/17 02:54 Dose: 9 mcg/min, 34.29 mls/hr Azithromycin 500 mg/ Sodium (Chloride) 250 mls @ 250 mls/hr IVPB Q24H [facility] Vancomycin HCl 1 gm/ Sodium (Chloride) 200 mls @ 133.333 mls/hr IVPB ONCE ONE Stop: 11/07/17 12:59 Vancomycin HCl 1 gm/ Sodium (Chloride) 200 mls @ 166.7 mls/hr IVPB MWF [facility] Lactulose (Enulose) 20 gm PO HS PRN PRN Reason: Constipation Midodrine (Proamatine) 10 mg PO TID [facility] Last Admin: 11/07/17 09:34 Dose: 10 mg Tamsulosin HCl (Flomax) 0.4 mg PO DAILY [facility] Last Admin: 11/07/17 09:34 Dose: 0.4 mg Vitamin B Complex/Vit C/Folic Acid (Nephro-Aleksandra) 1 tab PO DAILY [facility] Last Admin: 11/07/17 09:33 Dose: 1 tab - Labs Labs: 11/07/17 06:27 11/07/17 06:30 PT 13.9 SECONDS (9.7-12.2) H 10/24/17 06:20 INR 1.2 10/24/17 06:20 APTT 57 SECONDS (21-34) H D 10/30/17 06:12
[2017-11-07] MEDS ORDERED: Vancomycin 1 GM in Sodium Chloride 0.9% 200 ML IVPB ONE ×2 (11:30→12:00)
[2017-11-07] MEDS ORDERED: Azithromycin 500 MG in Sodium Chloride 0.9% 250 ML IVPB SCH (13:00)
--- NOTE | 2017-11-07 14:12 | CP.PCM.PN ---
Subjective - Date & Time of Evaluation Date of Evaluation: 11/07/17 Time of Evaluation: 14:09 - Subjective Subjective: on respirator for thoracentesis HD today, 1.5 kg uf on levophed Objective - Vital Signs/Intake and Output Vital Signs (last 24 hours): Temp Pulse Resp BP Pulse Ox 98.4 F 59 L 22 103/47 L 98 11/07/17 12:45 11/07/17 13:00 11/07/17 13:00 11/07/17 12:48 11/07/17 13:00 Intake and Output: 11/07/17 11/07/17 06:59 18:59 Intake Total 1352.9 378.6 Output Total 0 0 Balance 1352.9 378.6 - Medications Medications: Current Medications Acetaminophen (Tylenol 650mg/20.3ml Solution Ud) 650 mg PO Q4 PRN PRN Reason: Temperature Amiodarone HCl (Cordarone) 200 mg PO BID [facility] Last Admin: 11/07/17 09:33 Dose: 200 mg Calcium Acetate (Phoslo) 1,334 mg PO TIDCC [facility] Last Admin: 11/07/17 13:08 Dose: 1,334 mg Epoetin Pepe (Procrit) 10,000 unit IV MWF [facility] Last Admin: 11/05/17 13:16 Dose: 10,000 unit Heparin Sodium (Porcine) (Heparin) 5,000 units SC Q8 [facility] Last Admin: 11/07/17 05:36 Dose: 5,000 units Ferric Sodium Gluconate Complex 125 mg/ Sodium Chloride 110 mls @ 110 mls/hr IVPB DAILY [facility] Stop: 11/13/17 14:31 Last Admin: 11/07/17 10:05 Dose: 110 mls/hr Cefepime HCl (Maxipime Iv 1 Gm Premix) 1 gm in 50 mls @ 100 mls/hr IVPB Q24H [facility] Last Admin: 11/06/17 18:20 Dose: 100 mls/hr Propofol (Diprivan) 1,000 mg in 100 mls @ 1.555 mls/hr IV .Q24H PRN; Protocol; 5 MCG/KG/MIN PRN Reason: TITRATE PER MD ORDER Last Admin: 11/07/17 05:36 Dose: 10 mcg/kg/min, 3.111 mls/hr Norepinephrine Bitartrate 4 mg (/ Sodium Chloride) 254 mls @ 19.05 mls/hr IV .[id number] PRN; Protocol; 5 MCG/MIN PRN Reason: TITRATE PER MD ORDER Last Admin: 11/07/17 02:54 Dose: 9 mcg/min, 34.29 mls/hr Azithromycin 500 mg/ Sodium (Chloride) 250 mls @ 250 mls/hr IVPB Q24H [facility] Last Admin: 11/07/17 13:12 Dose: 250 mls/hr Vancomycin HCl 1 gm/ Sodium (Chloride) 200 mls @ 166.7 mls/hr IVPB MWF [facility] Lactulose (Enulose) 20 gm PO HS PRN PRN Reason: Constipation Midodrine (Proamatine) 10 mg PO TID [facility] Last Admin: 11/07/17 13:09 Dose: 10 mg Tamsulosin HCl (Flomax) 0.4 mg PO DAILY [facility] Last Admin: 11/07/17 09:34 Dose: 0.4 mg Vitamin B Complex/Vit C/Folic Acid (Nephro-Aleksandra) 1 tab PO DAILY [facility] Last Admin: 11/07/17 09:33 Dose: 1 tab - Labs Labs: 11/07/17 06:27 11/07/17 06:30 PT 13.9 SECONDS (9.7-12.2) H 10/24/17 06:20 INR 1.2 10/24/17 06:20 APTT 57 SECONDS (21-34) H D 10/30/17 06:12 - Constitutional Appears: Cachectic, Chronically Ill - Eye Exam Eye Exam: Normal appearance - ENT Exam ENT Exam: Mucous Membranes Moist Additional comments: endotracheal tube - Neck Exam Neck Exam: Full ROM. absent: Lymphadenopathy - Respiratory Exam Respiratory Exam: Decreased Breath Sounds - Cardiovascular Exam Cardiovascular Exam: Tachycardia Additional comments: aicd - GI/Abdominal Exam GI & Abdominal Exam: Distended. absent: Tenderness - Extremities Exam Extremities Exam: absent: Pedal Edema Assessment and Plan - Assessment and Plan (Free Text) Assessment: respiratory failure cardiomyopathy dialysis dependent sanon dependent daily HD f/u pleural fluid studies
[2017-11-07] MEDS ORDERED: Midazolam 2 MG/2 ML VIAL ONE (14:45)
[2017-11-07] MEDS ORDERED: Midazolam 2 MG/2 ML VIAL IVP ONE (15:29)
--- NOTE | 2017-11-07 15:35 | RAD ---
HISTORY: chest tube COMPARISON: Chest x-ray performed 11/07/17 TECHNIQUE: Chest, one view. FINDINGS: Numerous external wires, leads, and devices obscure evaluation of the underlying parenchyma. Endotracheal tube ; relation to the jackeline cannot be adequately assessed on this examination. Nasogastric tube extends beyond the hemidiaphragm towards expected location of the stomach. Right-sided dialysis catheter appears grossly in satisfactory position. Left central venous catheter, distal tip not well-visualized. Partially imaged right-sided pigtail drainage catheter. LUNGS: Interstitial prominence may reflect infection or edema. Bilateral patchy infiltrates. Probable bilateral pleural effusions. Interval development of right apical pneumothorax measuring approximately 2.9 cm from pleural edge. CARDIOVASCULAR: Left-sided pacemaker. Cardiomegaly. OSSEOUS STRUCTURES: No acute osseous abnormality is detected. VISUALIZED UPPER ABDOMEN: Unremarkable. OTHER FINDINGS: None. IMPRESSION: Interstitial prominence may reflect infection or edema. Bilateral patchy infiltrates. Probable bilateral pleural effusions. Interval development of right apical pneumothorax measuring approximately 2.9 cm from pleural edge. Cardiomegaly. Support lines and tubes as above. Findings discussed with Dr. Brooks on 11/07/17 at 3:32 p.m.
[2017-11-07 15:58] LABS: BODY FLUID TYPE PLEURAL
--- NOTE | 2017-11-07 16:41 | CP.PCM.CON ---
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 Review of Systems - Review of Systems Systems not reviewed;Unavailable: Altered Mental Status, Intubated Past Patient History - Past Medical History & Family History Past Medical History?: No - Past Social History Smoking Status: Never Smoked - CARDIAC Hx Cardiac Disorders: Yes - PULMONARY Hx Respiratory Disorders: No - NEUROLOGICAL Hx Neurological Disorder: No - HEENT Hx HEENT Problems: No - RENAL Hx Chronic Kidney Disease: Yes - ENDOCRINE/METABOLIC Hx Endocrine Disorders: No - HEMATOLOGICAL/ONCOLOGICAL Hx Anemia: Yes - INTEGUMENTARY Hx Dermatological Problems: No - MUSCULOSKELETAL/RHEUMATOLOGICAL Hx Musculoskeletal Disorders: Yes Hx Falls: Yes - GASTROINTESTINAL Hx Gastrointestinal Disorders: Yes Hx Gastroesophageal Reflux: Yes Other/Comment:  - GENITOURINARY/GYNECOLOGICAL Hx Genitourinary Disorders: Yes Hx Prostate Problems: Yes Hx Urinary Tract Infection: Yes Other/Comment: hx utis-pt has indwelling sanon from senior living - PSYCHIATRIC Hx Substance Use: No - SURGICAL HISTORY Hx Surgeries: No - ANESTHESIA Hx Anesthesia: No Hx Anesthesia Reactions: No Hx Malignant Hyperthermia: No Meds Home Medications: Home Medication List Medication Instructions Recorded Confirmed Type Acetaminophen [Tylenol 325mg tab] 650 mg PO Q4 PRN tab 10/12/17 Rx Amiodarone [Cordarone] 400 mg PO BID tab 10/12/17 Rx Calcitriol [Rocaltrol] 0.5 mcg PO DAILY sgl 10/12/17 Rx Calcium Acetate [Phoslo] 667 mg PO TIDCC tab 10/12/17 Rx Famotidine [Pepcid] 20 mg PO DAILY tab 10/12/17 Rx Gentamicin 100 mg IVPB MWF #2 vial 10/12/17 Rx Midodrine [Proamatine] 2.5 mg PO TID tab 10/12/17 Rx Tamsulosin [Flomax] 0.4 mg PO DAILY cap 10/12/17 Rx Vitamin B Complex/Vit C/Folic 1 tab PO DAILY tab 10/12/17 Rx [Nephro-Aleksandra] Allergies/Adverse Reactions: Allergies Allergy/AdvReac Type Severity Reaction Status Date / Time No Known Allergies Allergy Verified 09/24/17 12:54 - Medications Medications: Current Medications Acetaminophen (Tylenol 650mg/20.3ml Solution Ud) 650 mg PO Q4 PRN PRN Reason: Temperature Amiodarone HCl (Cordarone) 200 mg PO BID [facility] Last Admin: 11/07/17 09:33 Dose: 200 mg Calcium Acetate (Phoslo) 1,334 mg PO TIDCC [facility] Last Admin: 11/07/17 13:08 Dose: 1,334 mg Epoetin Pepe (Procrit) 10,000 unit IV MWF [facility] Last Admin: 11/05/17 13:16 Dose: 10,000 unit Heparin Sodium (Porcine) (Heparin) 5,000 units SC Q8 [facility] Last Admin: 11/07/17 15:33 Dose: 5,000 units Ferric Sodium Gluconate Complex 125 mg/ Sodium Chloride 110 mls @ 110 mls/hr IVPB DAILY [facility] Stop: 11/13/17 14:31 Last Admin: 11/07/17 10:05 Dose: 110 mls/hr Cefepime HCl (Maxipime Iv 1 Gm Premix) 1 gm in 50 mls @ 100 mls/hr IVPB Q24H [facility] Last Admin: 11/06/17 18:20 Dose: 100 mls/hr Propofol (Diprivan) 1,000 mg in 100 mls @ 1.555 mls/hr IV .Q24H PRN; Protocol; 5 MCG/KG/MIN PRN Reason: TITRATE PER MD ORDER Last Admin: 11/07/17 05:36 Dose: 10 mcg/kg/min, 3.111 mls/hr Norepinephrine Bitartrate 4 mg (/ Sodium Chloride) 254 mls @ 19.05 mls/hr IV .[id number] PRN; Protocol; 5 MCG/MIN PRN Reason: TITRATE PER MD ORDER Last Admin: 11/07/17 10:10 Dose: 10 mcg/min, 38.1 mls/hr Azithromycin 500 mg/ Sodium (Chloride) 250 mls @ 250 mls/hr IVPB Q24H [facility] Last Admin: 11/07/17 13:12 Dose: 250 mls/hr Vancomycin HCl 1 gm/ Sodium (Chloride) 200 mls @ 166.7 mls/hr IVPB MWF [facility] Lactulose (Enulose) 20 gm PO HS PRN PRN Reason: Constipation Midodrine (Proamatine) 10 mg PO TID [facility] Last Admin: 11/07/17 13:09 Dose: 10 mg Tamsulosin HCl (Flomax) 0.4 mg PO DAILY [facility] Last Admin: 11/07/17 09:34 Dose: 0.4 mg Vitamin B Complex/Vit C/Folic Acid (Nephro-Aleksandra) 1 tab PO DAILY [facility] Last Admin: 11/07/17 09:33 Dose: 1 tab Physical Exam - Constitutional Appears: Cachectic, Chronically Ill - Head Exam Head Exam: NORMAL INSPECTION - Eye Exam Eye Exam: PERRL - ENT Exam ENT Exam: Mucous Membranes Dry - Neck Exam Neck exam: Negative for: Lymphadenopathy - Respiratory Exam Respiratory Exam: Decreased Breath Sounds - Cardiovascular Exam Cardiovascular Exam: REGULAR RHYTHM - GI/Abdominal Exam GI & Abdominal Exam: Diminished Bowel Sounds, Soft. absent: Tenderness - Rectal Exam Rectal Exam: Deferred - Exam Exam: NORMAL INSPECTION - Extremities Exam Extremities exam: Negative for: pedal edema - Back Exam Back exam: absent: CVA tenderness (L), CVA tenderness (R) Results - Vital Signs Recent Vital Signs: Last Vital Signs Temp 98.4 F 11/07/17 12:45 Pulse 60 11/07/17 16:00 Resp 23 11/07/17 16:00 BP 99/46 L 11/07/17 15:48 Pulse Ox 99 11/07/17 16:00 - Labs Result Diagrams: 11/07/17 06:27 11/07/17 06:30 Labs: Laboratory Results - last 24 hr 11/06/17 11/07/17 11/07/17 12:07 05:04 06:27 WBC 4.7 L RBC 3.25 L Hgb 10.1 L Hct 31.3 L MCV 96.1 H MCH 31.0 MCHC 32.3 L RDW 19.5 H Plt Count 111 L MPV 10.1 Neut % (Auto) 90.7 H Lymph % (Auto) 6.4 L [place] % (Auto) 2.5 Eos % (Auto) 0.1 Baso % (Auto) 0.3 Neut # 4.3 Lymph # 0.3 L [place] # 0.1 Eos # 0.0 Baso # 0.0 Neutrophils % (Manual) 83 H Band Neutrophils % 16 H* Lymphocytes % (Manual) 1 L Monocytes % (Manual) TEST NOT PERFORMED Platelet Estimate Slightly decreased L Polychromasia Slight Hypochromasia (manual) Slight Anisocytosis (manual) Slight Target Cells Slight Tear Drop Cells Slight Puncture Site Rb pCO2 36 pO2 81 HCO3 25.7 ABG pH 7.45 ABG Total CO2 26.1 ABG O2 Saturation 96.9 ABG Base Excess 1.1 ABG Hemoglobin 10.1 L ABG Carboxyhemoglobin 1.3 POC ABG HHb (Measured) 3.0 ABG Methemoglobin 1.0 Scar Test Na A-a O2 Difference 231.0 Respiratory Index 2.9 Hgb O2 Saturation 94.6 L Vent Mode Prvc Mechanical Rate 18 FiO2 50.0 Tidal Volume 400 PEEP 5 Sodium Potassium Chloride Carbon Dioxide Anion Gap BUN Creatinine Est GFR ( Amer) Est GFR (Non-Af Amer) Random Glucose Calcium Phosphorus Magnesium Total Bilirubin AST ALT Alkaline Phosphatase Total Protein Albumin Globulin Albumin/Globulin Ratio Procalcitonin 5.99 H Fluid Source 11/07/17 11/07/17 11/07/17 06:30 06:30 15:53 WBC RBC Hgb Hct MCV MCH MCHC RDW Plt Count MPV Neut % (Auto) Lymph % (Auto) [place] % (Auto) Eos % (Auto) Baso % (Auto) Neut # Lymph # [place] # Eos # Baso # Neutrophils % (Manual) Band Neutrophils % Lymphocytes % (Manual) Monocytes % (Manual) Platelet Estimate Polychromasia Hypochromasia (manual) Anisocytosis (manual) Target Cells Tear Drop Cells Puncture Site pCO2 pO2 HCO3 ABG pH ABG Total CO2 ABG O2 Saturation ABG Base Excess ABG Hemoglobin ABG Carboxyhemoglobin POC ABG HHb (Measured) ABG Methemoglobin Scar Test A-a O2 Difference Respiratory Index Hgb O2 Saturation Vent Mode Mechanical Rate FiO2 Tidal Volume PEEP Sodium 130 L Potassium 4.5 Chloride 98 Carbon Dioxide 25 Anion Gap 11 BUN 46 H Creatinine 4.6 H Est GFR ( Amer) 15 Est GFR (Non-Af Amer) 12 Random Glucose 112 H Calcium 7.1 L Phosphorus 4.4 Magnesium 1.7 Total Bilirubin 0.8 AST 91 H D ALT 58 Alkaline Phosphatase 116 Total Protein 6.4 Albumin 2.7 L Globulin 3.8 Albumin/Globulin Ratio 0.7 L Procalcitonin Fluid Source Pleural Assessment & Plan - Assessment and Plan (Free Text) Assessment: SEPSIS , RESP FAILURE PNEUMONIA, ESRD ON HD, S/P PPM AWAITING CHEST TUBE 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
--- NOTE | 2017-11-07 16:54 | PCM.PROC ---
Procedures Attestation:: I certify that I have explained the specified Operation(s) or Procedure(s), risks, benefits and reasonable alternatives to the Patient and/or other person responsible. The opportunity was given to ask questions and all questions answered - Chest Tube Chest Tube Location: Lateral Chest Right, Mid-Axillary Right Size of Tube (cm): 10 Chest Tube Procedure: Chlorhexidine Tube Sutured to Skin: Yes Sterile Dressing Applied: Yes Anesthesia: Lidocaine 1% Volume Anesthetic (mls): 5 Incision Made With: #10 blade Post Procedure: sutured to skin, sterile dressing applied [place]azariegos of Air [place]: No Amount of Initial Drainage: 300 Post Procedure CXR?: Yes Patient Tolerated Procedure: Yes
[2017-11-07] MEDS ORDERED: Sodium Chloride 0.9% 100 ML IV ONE (17:19)
[2017-11-07 18:22] LABS: BF GROSS APPEARANCE SL CLOUDY (CLEAR); BODY FLUID MONO/MACROPHAGE 51 % (0-0)
[2017-11-07 18:23] LABS: BODY FLUID TOTAL COUNT 100 (0-0)
[2017-11-07] MEDS: Cefepime IV 1 gm in Dextrose 1 GM/50 ML BAG IVPB SCH (18:27)
[2017-11-07] MEDS: Linezolid 600 mg in D5W 300 ml 600 MG/300 ML BAG IVPB SCH (18:42)
[2017-11-07] MEDS: Norepinephrine 8 MG in Sodium Chloride 0.9% 500 ML IV PRN (21:58)
[2017-11-08] MEDS: Acetaminophen 650mg/20.3ml solution UD PO PRN (00:16)
[2017-11-08] MEDS: Linezolid 600 mg in D5W 300 ml 600 MG/300 ML BAG IVPB SCH ×2 (05:42→17:58)
[2017-11-08 05:45] LABS: ARTERIAL BLOOD GAS HCO3 26.5 mmol/L (21-28); ARTERIAL BLOOD GAS HEMOGLOBIN 10.6 g/dL (11.7-17.4); ARTERIAL BLOOD GAS O2 SAT 97.5 % (95-98); ARTERIAL BLOOD GAS PCO2 40 mm/Hg (35-45); ARTERIAL BLOOD GAS PH 7.43 (7.35-7.45); ARTERIAL BLOOD GAS PO2 94 mm/Hg (80-100); ARTERIAL BLOOD GAS TCO2 27.7 mmol/L (22-28)
[2017-11-08] MEDS: Norepinephrine 8 MG in Sodium Chloride 0.9% 500 ML IV PRN ×2 (06:33→17:06)
[2017-11-08 08:47] LABS: BASO % 0.2 % (0.0-2.0); EOS % 0.1 % (0.0-4.0); HEMOGLOBIN 10.4 g/dL (12.0-18.0); LYMPH # 0.3 K/uL (1.0-4.3); LYMPH % 5.1 % (20.0-40.0); MEAN CELL VOLUME 96.6 fL (80.0-94.0); MEAN CORPUSCULAR HEMOGLOBIN 30.6 pg (27.0-31.0); MEAN CORPUSCULAR HGB CONC 31.7 g/dL (33.0-37.0); MEAN PLATELET VOLUME 9.6 fL (7.2-11.7); MONO # 0.1 K/uL (0.0-0.8); MONO % 1.6 % (0.0-10.0); NEUT # 4.7 K/uL (1.8-7.0); NRBC % 0.1 % (0.0-2.0); PLATELET COUNT 97 K/uL (130-400); WHITE BLOOD COUNT 5.1 K/uL (4.8-10.8)
[2017-11-08 09:01] LABS: ALB/GLOB RATIO 0.7 (1.0-2.1); ALBUMIN 2.6 g/dL (3.5-5.0); CALCIUM 7.5 mg/dl (8.6-10.4)
--- NOTE | 2017-11-08 09:12 | RAD ---
Chest x-ray single frontal view History: Chest tube advancement. Comparison: 11/07/2017 Findings: Endotracheal and NG tubes are stable position. Other lines and tubes are in stable position. Multiple external wires battery packs, limit evaluation. Moderate left and small right pleural effusion. Patchy airspace consolidative changes seen throughout the left lung and at the right lung base. Cardiomegaly. Degenerative changes in the spine and shoulders. Impression: Endotracheal and NG tubes are stable position. Other lines and tubes are in stable position. Multiple external wires battery packs, limit evaluation. Moderate left and small right pleural effusion. Patchy airspace consolidative changes seen throughout the left lung and at the right lung base. Cardiomegaly.
--- NOTE | 2017-11-08 09:23 | RAD ---
Chest x-ray single frontal view History: Pneumonia. Comparison: 11/07/2017 Findings: Lines and tubes in stable position. Left-sided pacemaker. Moderate left and small right pleural effusion. Right pleural drain in place. Persistent confluent consolidative changes throughout the left lung and at the right lung base. Biapical pleural thickening. Mild cardiomegaly. Impression: Lines and tubes in stable position. Left-sided pacemaker. Moderate left and small right pleural effusion. Right pleural drain in place. Persistent confluent consolidative changes throughout the left lung and at the right lung base. Biapical pleural thickening. Mild cardiomegaly.
[2017-11-08] MEDS: Multivitamin Vitamin B Complex (Nephro-Vite) Tab PO SCH (09:25)
[2017-11-08] MEDS: Propofol 10 mg/ml 1,000 MG/100 ML VIAL IV PRN (09:26)
--- NOTE | 2017-11-08 09:34 | US ---
Limited right hilary thorax ultrasound History: Pleural effusion. Comparison: None available. Technique: Real-time sonography was performed through the right hilary thorax. Findings: Limited study to evaluate right pleural effusion for subsequent pigtail catheter placement. Impression: Limited study to evaluate right pleural effusion for subsequent pigtail catheter placement.
--- NOTE | 2017-11-08 09:54 | CP.PCM.PN ---
Subjective - Date & Time of Evaluation Date of Evaluation: 11/08/17 Time of Evaluation: 09:52 - Subjective Subjective: transferred ti ICU with respiratory failure s/p chest tube placement last HD 11/07- UF 2000ml BP has been low- on levo at 15 mcg/min now +UTI noted - on IV ABs remains awake- on vent Objective - Vital Signs/Intake and Output Vital Signs (last 24 hours): Temp Pulse Resp BP Pulse Ox 99.2 F 66 25 H 122/56 L 100 11/08/17 06:00 11/08/17 09:00 11/08/17 09:00 11/08/17 08:55 11/08/17 09:00 Intake and Output: 11/08/17 11/08/17 06:59 18:59 Intake Total 2034.5 371.9 Output Total 280 Balance 1754.5 371.9 - Medications Medications: Current Medications Acetaminophen (Tylenol 650mg/20.3ml Solution Ud) 650 mg PO Q4 PRN PRN Reason: Temperature Last Admin: 11/08/17 00:16 Dose: 650 mg Amiodarone HCl (Cordarone) 200 mg PO BID [facility] Last Admin: 11/08/17 09:25 Dose: 200 mg Calcium Acetate (Phoslo) 1,334 mg PO TIDCC [facility] Last Admin: 11/08/17 09:25 Dose: 1,334 mg Epoetin Pepe (Procrit) 10,000 unit IV MWF [facility] Last Admin: 11/05/17 13:16 Dose: 10,000 unit Ferric Sodium Gluconate Complex 125 mg/ Sodium Chloride 110 mls @ 110 mls/hr IVPB DAILY [facility] Stop: 11/13/17 14:31 Last Admin: 11/07/17 10:05 Dose: 110 mls/hr Cefepime HCl (Maxipime Iv 1 Gm Premix) 1 gm in 50 mls @ 100 mls/hr IVPB Q24H [facility] Last Admin: 11/07/17 18:27 Dose: 100 mls/hr Propofol (Diprivan) 1,000 mg in 100 mls @ 1.555 mls/hr IV .Q24H PRN; Protocol; 5 MCG/KG/MIN PRN Reason: TITRATE PER MD ORDER Last Admin: 11/08/17 09:26 Dose: 10 mcg/kg/min, 3.111 mls/hr Linezolid (Zyvox 600mg/300ml D5w) 600 mg in 300 mls @ 200 mls/hr IVPB Q12H [facility] Last Admin: 11/08/17 05:42 Dose: 200 mls/hr Norepinephrine Bitartrate 8 mg (/ Sodium Chloride) 508 mls @ 19.05 mls/hr IV .Q24H PRN; Protocol; 5 MCG/MIN PRN Reason: TITRATE PER MD ORDER Last Titration: 11/08/17 07:56 Dose: 15 mcg/min, 57.15 mls/hr Azithromycin 500 mg/ Dextrose 250 mls @ 250 mls/hr IVPB Q24H [facility] Lactulose (Enulose) 20 gm PO HS PRN PRN Reason: Constipation Midodrine (Proamatine) 10 mg PO TID [facility] Last Admin: 11/08/17 09:25 Dose: 10 mg Tamsulosin HCl (Flomax) 0.4 mg PO DAILY [facility] Last Admin: 11/08/17 09:25 Dose: 0.4 mg Vitamin B Complex/Vit C/Folic Acid (Nephro-Aleksandra) 1 tab PO DAILY [facility] Last Admin: 11/08/17 09:25 Dose: 1 tab - Labs Labs: 11/08/17 08:39 11/08/17 08:39 PT 13.9 SECONDS (9.7-12.2) H 10/24/17 06:20 INR 1.2 10/24/17 06:20 APTT 57 SECONDS (21-34) H D 10/30/17 06:12 - Constitutional Appears: In Acute Distress, Chronically Ill - Head Exam Head Exam: ATRAUMATIC, NORMAL INSPECTION - Eye Exam Eye Exam: EOMI, Normal appearance - Neck Exam Neck Exam: Normal Inspection. absent: Tenderness - Respiratory Exam Respiratory Exam: Decreased Breath Sounds, Respiratory Distress - Cardiovascular Exam Cardiovascular Exam: REGULAR RHYTHM, +S1 - GI/Abdominal Exam GI & Abdominal Exam: Soft. absent: Tenderness - Extremities Exam Extremities Exam: Normal Inspection. absent: Tenderness - Neurological Exam Neurological Exam: Awake, CN II-XII Intact - Skin Skin Exam: Warm Assessment and Plan (1) CKD (chronic kidney disease) stage 5, GFR less than 15 ml/min Status: Acute (2) Acute urinary retention Status: Acute (3) Obstructed Beck catheter Status: Acute (4) Cardiomyopathy Status: Acute (5) Hepatitis C antibody positive in blood Status: Acute (6) VRE (vancomycin resistant enterococcus) culture positive Status: Acute (7) ESRD (end stage renal disease) on dialysis Status: Acute (8) Hepatitis C antibody test positive Status: Acute (9) CHF (congestive heart failure) Status: Acute (10) Metabolic encephalopathy Status: Acute - Assessment and Plan (Free Text) Plan: Continue aggressive dialysis with adequate UF IV ABs vent/ chest tube management attempt full dialysis attempts if patient allows
[2017-11-08 10:10] LABS: BANDS 10 % (0-2); LYMPHOCYTE 4 % (20-40); MONOCYTE 4 % (0-10); NEUTROPHIL 82 % (50-75); TOTAL CELLS COUNTED 100
[2017-11-08 10:15] LABS: ANISOCYTOSIS SLIGHT; HYPOCHROMIC SLIGHT; PLATELET ESTIMATE DECREASED (NORMAL)
[2017-11-08 10:16] LABS: OVALOCYTES SLIGHT; POLYCHROMIC SLIGHT; TARGET CELLS SLIGHT
[2017-11-08 10:17] LABS: BURR CELLS SLIGHT
[2017-11-08] MEDS: Enoxaparin 40 mg Syringe SC SCH (11:09)
--- NOTE | 2017-11-08 11:42 | CP.CCUPN ---
<Krishna Brooks - Last Filed: 11/08/17 11:35> CCU Subjective - Physician Review Subjective (Free Text): 11/08/17 11:42 patient seen and examined at bedside 1800 out of chest tube serosang intubate, / no dialysis today sepsis likely secondary to vre/pneumonia tube feeds nephro goal 50 family at bedside, discussed in detail CCU Objective - Vital Signs / Intake & Output Vital Signs (Last 4 hours): Vital Signs Temp Pulse Resp BP Pulse Ox 11/08/17 11:00 63 21 99 11/08/17 10:55 63 21 104/46 L 97 11/08/17 10:25 63 20 122/55 L 99 11/08/17 10:00 97.7 F 64 21 100 11/08/17 09:55 64 20 123/56 L 100 11/08/17 09:25 66 24 126/58 L 99 11/08/17 09:00 66 25 H 100 11/08/17 08:55 66 25 H 122/56 L 99 11/08/17 08:25 66 25 H 121/55 L 99 11/08/17 08:00 67 25 H 100 11/08/17 07:55 67 25 H 124/53 L 100 Intake and Output (Last 8hrs): Intake & Output 11/07/17 11/08/17 11/08/17 22:59 06:59 14:59 Intake Total 1616.5 1552.8 836.9 Output Total 1250 280 Balance 366.5 1272.8 836.9 Weight 112 lb 9.6 oz Intake: IV 280 508 100 Intake, IV Amount 1096.5 804.8 486.9 Left Distal Port 650 300 250 Left Medial Port 421.7 480 221.4 Left Proximal Port 24.8 24.8 15.5 Right Hand 0 Tube Feeding 240 240 150 Other 100 Output: Chest Tube Drainage 1250 280 Right Posterior Chest 1250 280 Emesis 0 Other: # Bowel Movements 0 0 0 - Physical Exam Head: Positive for: Atraumatic, Normocephalic Extroacular Muscles: Positive for: EOMI. Negative for: Gaze Palsy Conjunctiva: Positive for: Normal Mouth: Positive for: Moist Mucous Membranes, Normal Lips Neck: Positive for: Normal Range of Motion, Other (L IJ) Respiratory/Chest: Positive for: Clear to Auscultation, Other (intubated) Cardiovascular: Positive for: Regular Rate and Rhythm Abdomen: Positive for: Normal Bowel Sounds Upper Extremity: Positive for: Normal Inspection, Capillary Refill < 2s. Negative for: Edema Lower Extremity: Positive for: Normal Inspection, Capillary Refill < 2 s. Negative for: Edema Neurological: Positive for: Speech Normal Psychiatric: Positive for: Alert, Oriented x 3 - Medications Active Medications: Active Medications Generic Name Dose Route Start Last Admin Trade Name Freq PRN Reason Stop Dose Admin Acetaminophen 650 mg 11/06/17 23:47 11/08/17 00:16 Tylenol 650mg/20.3ml Solution Ud PO 650 mg Q4 PRN Administration Temperature Amiodarone HCl 200 mg 11/05/17 17:17 11/08/17 09:25 Cordarone PO 200 mg BID TANI Administration Calcium Acetate 1,334 mg 10/27/17 09:29 11/08/17 09:25 Phoslo PO 1,334 mg TIDCC TANI Administration Enoxaparin Sodium 40 mg 11/08/17 10:30 11/08/17 11:09 Lovenox SC 40 mg DAILY TANI Administration Epoetin Pepe 10,000 unit 10/22/17 14:30 11/05/17 13:16 Procrit IV 10,000 unit MWF TANI Administration Ferric Sodium Gluconate 110 mls @ 110 mls/hr 11/05/17 14:30 11/07/17 10:05 Complex 125 mg/ Sodium IVPB 11/13/17 14:31 110 mls/hr Chloride DAILY TANI Administration Cefepime HCl 1 gm in 50 mls @ 100 mls/hr 11/05/17 19:00 11/07/17 18:27 Maxipime Iv 1 Gm Premix IVPB 100 mls/hr Q24H TANI Administration Propofol 1,000 mg in 100 mls @ 1.555 mls/hr 11/05/17 18:43 11/08/17 09:26 Diprivan IV 10 mcg/kg/min .Q24H PRN 3.111 mls/hr TITRATE PER MD ORDER Administration Protocol 5 MCG/KG/MIN Linezolid 600 mg in 300 mls @ 200 mls/hr 11/07/17 18:00 11/08/17 05:42 Zyvox 600mg/300ml D5w IVPB 200 mls/hr Q12H TANI Administration Norepinephrine Bitartrate 8 mg 508 mls @ 19.05 mls/hr 11/07/17 21:28 10:01 / Sodium Chloride IV 13 mcg/min .Q24H PRN 49.53 mls/hr TITRATE PER MD ORDER Titration Protocol 5 MCG/MIN Azithromycin 500 mg/ Dextrose 250 mls @ 250 mls/hr 11/08/17 09:00 11/08/17 10 :00 IVPB 250 mls/hr Q24H TANI Administration Lactulose 20 gm 10/29/17 22:00 Enulose PO HS PRN Constipation Midodrine 10 mg 10/26/17 08:33 11/08/17 09:25 Proamatine PO 10 mg TID TANI Administration Pantoprazole Sodium 40 mg 11/08/17 10:30 11/08/17 11:09 Protonix Inj IVP 40 mg DAILY TANI Administration Tamsulosin HCl 0.4 mg 10/12/17 10:00 11/08/17 09:25 Flomax PO 0.4 mg DAILY TANI Administration Vitamin B Complex/Vit C/Folic Acid 1 tab 10/12/17 10:00 11/08/17 09:25 Nephro-Aleksandra PO 1 tab DAILY TANI Administration - Patient Studies Lab Studies: Microbiology Studies 11/05/17 17:24 Urine Culture - Final Urine,Catheterized Pseudomonas Aeruginosa Enterococcus Faecalis 11/05/17 18:00 Blood Culture - Preliminary Blood-Venous NO GROWTH AFTER 48 HOURS 11/05/17 18:00 Blood Culture - Preliminary Blood-Venous NO GROWTH AFTER 48 HOURS 11/07/17 14:45 Gram Stain - Final Pleural Fluid Lab Studies 11/08/17 11/08/17 11/08/17 Range/Units 08:39 08:39 05:23 WBC 5.1 (4.8-10.8) K/uL RBC 3.40 L (4.40-5.90) Mil/uL Hgb 10.4 L (12.0-18.0) g/dL Hct 32.9 L (35.0-51.0) % MCV 96.6 H (80.0-94.0) fL MCH 30.6 (27.0-31.0) pg MCHC 31.7 L (33.0-37.0) g/dL RDW 19.0 H (11.5-14.5) % Plt Count 97 L (130-400) K/uL MPV 9.6 (7.2-11.7) fL Neut % (Auto) 93.0 H (50.0-75.0) % Lymph % (Auto) 5.1 L (20.0-40.0) % Cecil % (Auto) 1.6 (0.0-10.0) % Eos % (Auto) 0.1 (0.0-4.0) % Baso % (Auto) 0.2 (0.0-2.0) % Neut # 4.7 (1.8-7.0) K/uL Lymph # 0.3 L (1.0-4.3) K/uL Cecil # 0.1 (0.0-0.8) K/uL Eos # 0.0 (0.0-0.7) K/uL Baso # 0.0 (0.0-0.2) K/uL Neutrophils % (Manual) 82 H (50-75) % Band Neutrophils % 10 H (0-2) % Lymphocytes % (Manual) 4 L (20-40) % Monocytes % (Manual) 4 (0-10) % Platelet Estimate Decreased L (NORMAL) Polychromasia Slight Hypochromasia (manual) Slight Anisocytosis (manual) Slight Macrocytosis (manual) Slight Target Cells Slight Ovalocytes Slight [place] Cells Slight Puncture Site Rb pCO2 40 (35-45) mm/Hg pO2 94 (80-100) mm/Hg HCO3 26.5 (21-28) mmol/L ABG pH 7.43 (7.35-7.45) ABG Total CO2 27.7 (22-28) mmol/L ABG O2 Saturation 97.5 (95-98) % ABG Base Excess 2.0 (-2.0-3.0) mmol/L ABG Hemoglobin 10.6 L (11.7-17.4) g/dL ABG Carboxyhemoglobin 1.2 (0.5-1.5) % POC ABG HHb (Measured) 2.4 (0.0-5.0) % ABG Methemoglobin 1.2 (0.0-3.0) % Scar Test Na A-a O2 Difference 213.0 mm/Hg Respiratory Index 2.3 Hgb O2 Saturation 95.3 (95.0-98.0) % Vent Mode Prvc Mechanical Rate 18 FiO2 50.0 % Tidal Volume 400 PEEP 5 Sodium 129 L (132-148) mmol/L Potassium 3.6 (3.6-5.2) mmol/L Chloride 93 L (98-107) mmol/L Carbon Dioxide 28 (22-30) mmol/L Anion Gap 11 (10-20) BUN 44 H (9-20) mg/dL Creatinine 4.2 H (0.8-1.5) mg/dL Est GFR ( Amer) 17 Est GFR (Non-Af Amer) 14 Random Glucose 148 H (75-110) mg/dL Calcium 7.5 L (8.6-10.4) mg/dl Total Bilirubin 0.7 (0.2-1.3) mg/dL AST 90 H (17-59) U/L ALT 60 (21-72) U/L Alkaline Phosphatase 186 H D (38-126) U/L Total Protein 6.2 L (6.3-8.3) g/dL Albumin 2.6 L (3.5-5.0) g/dL Globulin 3.7 (2.2-3.9) gm/dL Albumin/Globulin Ratio 0.7 L (1.0-2.1) Fluid Source Fluid Appearance (CLEAR) Fluid WBC (0.0-300.0) /mm3 Fluid RBC (0.0-0.0) /mm3 Fluid Tot Cell Count (0-0) Fluid Neutrophils (0-0) % Fluid Lymphocytes (0-0) % Fld Monocyte/Macrophag (0-0) % Fluid Comment 11/07/17 Range/Units 15:53 WBC (4.8-10.8) K/uL RBC (4.40-5.90) Mil/uL Hgb (12.0-18.0) g/dL Hct (35.0-51.0) % MCV (80.0-94.0) fL MCH (27.0-31.0) pg MCHC (33.0-37.0) g/dL RDW (11.5-14.5) % Plt Count (130-400) K/uL MPV (7.2-11.7) fL Neut % (Auto) (50.0-75.0) % Lymph % (Auto) (20.0-40.0) % Cecil % (Auto) (0.0-10.0) % Eos % (Auto) (0.0-4.0) % Baso % (Auto) (0.0-2.0) % Neut # (1.8-7.0) K/uL Lymph # (1.0-4.3) K/uL Cecil # (0.0-0.8) K/uL Eos # (0.0-0.7) K/uL Baso # (0.0-0.2) K/uL Neutrophils % (Manual) (50-75) % Band Neutrophils % (0-2) % Lymphocytes % (Manual) (20-40) % Monocytes % (Manual) (0-10) % Platelet Estimate (NORMAL) Polychromasia Hypochromasia (manual) Anisocytosis (manual) Macrocytosis (manual) Target Cells Ovalocytes [place] Cells Puncture Site pCO2 (35-45) mm/Hg pO2 (80-100) mm/Hg HCO3 (21-28) mmol/L ABG pH (7.35-7.45) ABG Total CO2 (22-28) mmol/L ABG O2 Saturation (95-98) % ABG Base Excess (-2.0-3.0) mmol/L ABG Hemoglobin (11.7-17.4) g/dL ABG Carboxyhemoglobin (0.5-1.5) % POC ABG HHb (Measured) (0.0-5.0) % ABG Methemoglobin (0.0-3.0) % Scar Test A-a O2 Difference mm/Hg Respiratory Index Hgb O2 Saturation (95.0-98.0) % Vent Mode Mechanical Rate FiO2 % Tidal Volume PEEP Sodium (132-148) mmol/L Potassium (3.6-5.2) mmol/L Chloride (98-107) mmol/L Carbon Dioxide (22-30) mmol/L Anion Gap (10-20) BUN (9-20) mg/dL Creatinine (0.8-1.5) mg/dL Est GFR ( Amer) Est GFR (Non-Af Amer) Random Glucose (75-110) mg/dL Calcium (8.6-10.4) mg/dl Total Bilirubin (0.2-1.3) mg/dL AST (17-59) U/L ALT (21-72) U/L Alkaline Phosphatase (38-126) U/L Total Protein (6.3-8.3) g/dL Albumin (3.5-5.0) g/dL Globulin (2.2-3.9) gm/dL Albumin/Globulin Ratio (1.0-2.1) Fluid Source Pleural Fluid Appearance Sl cloudy (CLEAR) Fluid WBC 120.0 (0.0-300.0) /mm3 Fluid RBC 1990.0 H (0.0-0.0) /mm3 Fluid Tot Cell Count 100 H (0-0) Fluid Neutrophils 9.0 H (0-0) % Fluid Lymphocytes 40.0 H (0-0) % Fld Monocyte/Macrophag 51 H (0-0) % Fluid Comment Laboratory Results - last 24 hr 11/07/17 11/08/17 11/08/17 15:53 05:23 08:39 WBC 5.1 RBC 3.40 L Hgb 10.4 L Hct 32.9 L MCV 96.6 H MCH 30.6 MCHC 31.7 L RDW 19.0 H Plt Count 97 L MPV 9.6 Neut % (Auto) 93.0 H Lymph % (Auto) 5.1 L Cecil % (Auto) 1.6 Eos % (Auto) 0.1 Baso % (Auto) 0.2 Neut # 4.7 Lymph # 0.3 L Cecil # 0.1 Eos # 0.0 Baso # 0.0 Neutrophils % (Manual) 82 H Band Neutrophils % 10 H Lymphocytes % (Manual) 4 L Monocytes % (Manual) 4 Platelet Estimate Decreased L Polychromasia Slight Hypochromasia (manual) Slight Anisocytosis (manual) Slight Macrocytosis (manual) Slight Target Cells Slight Ovalocytes Slight [place] Cells Slight Puncture Site Rb pCO2 40 pO2 94 HCO3 26.5 ABG pH 7.43 ABG Total CO2 27.7 ABG O2 Saturation 97.5 ABG Base Excess 2.0 ABG Hemoglobin 10.6 L ABG Carboxyhemoglobin 1.2 POC ABG HHb (Measured) 2.4 ABG Methemoglobin 1.2 Scar Test Na A-a O2 Difference 213.0 Respiratory Index 2.3 Hgb O2 Saturation 95.3 Vent Mode Prvc Mechanical Rate 18 FiO2 50.0 Tidal Volume 400 PEEP 5 Sodium Potassium Chloride Carbon Dioxide Anion Gap BUN Creatinine Est GFR ( Amer) Est GFR (Non-Af Amer) Random Glucose Calcium Total Bilirubin AST ALT Alkaline Phosphatase Total Protein Albumin Globulin Albumin/Globulin Ratio Fluid Source Pleural Fluid Appearance Sl cloudy Fluid WBC 120.0 Fluid RBC 1990.0 H Fluid Tot Cell Count 100 H Fluid Neutrophils 9.0 H Fluid Lymphocytes 40.0 H Fld Monocyte/Macrophag 51 H Fluid Comment 11/08/17 08:39 WBC RBC Hgb Hct MCV MCH MCHC RDW Plt Count MPV Neut % (Auto) Lymph % (Auto) Cecil % (Auto) Eos % (Auto) Baso % (Auto) Neut # Lymph # Cecil # Eos # Baso # Neutrophils % (Manual) Band Neutrophils % Lymphocytes % (Manual) Monocytes % (Manual) Platelet Estimate Polychromasia Hypochromasia (manual) Anisocytosis (manual) Macrocytosis (manual) Target Cells Ovalocytes [place] Cells Puncture Site pCO2 pO2 HCO3 ABG pH ABG Total CO2 ABG O2 Saturation ABG Base Excess ABG Hemoglobin ABG Carboxyhemoglobin POC ABG HHb (Measured) ABG Methemoglobin Scar Test A-a O2 Difference Respiratory Index Hgb O2 Saturation Vent Mode Mechanical Rate FiO2 Tidal Volume PEEP Sodium 129 L Potassium 3.6 Chloride 93 L Carbon Dioxide 28 Anion Gap 11 BUN 44 H Creatinine 4.2 H Est GFR ( Amer) 17 Est GFR (Non-Af Amer) 14 Random Glucose 148 H Calcium 7.5 L Total Bilirubin 0.7 AST 90 H ALT 60 Alkaline Phosphatase 186 H D Total Protein 6.2 L Albumin 2.6 L Globulin 3.7 Albumin/Globulin Ratio 0.7 L Fluid Source Fluid Appearance Fluid WBC Fluid RBC Fluid Tot Cell Count Fluid Neutrophils Fluid Lymphocytes Fld Monocyte/Macrophag Fluid Comment Critical Care Progress Note - Nutrition Nutrition: Nutrition Category Date Time Status Renal Diet [DIET] Diets 10/27/17 Breakfast Active Assessment/Plan - Assessment and Plan (Free Text) Assessment: 77M w/ Respiratory distress 2/2 fluid overload, intubated Plan: Cardio Cards ([place]) Lifevest - removed. No contact with skin with chest tube Amiodarone 200 PO BID Pulm Intubated Vent 18/400/5/50 Chest tube inserted on right - 1800 out serosanguinous, small pneumo resolving will insert chest tube on left today Multifocal pneumonia, Cefepime 1g IV QD, zithromax, zyvox Propofol Light sedation Renal Nephro ([place]) ESRD on dialysis has been noncomplinant on dialysis, refusing to finish sessions Uro (Gildardo Varela) urinary retention - flomax 0.4 PO QD sanon removed today ID ID (Debra) - [place] covering fever 99.7. Tylenol per NGT f/u blood cultures - negative to date f/u urine cultures - negative to date cefepime 1g IV qd, zithromax 500 IV, zyvox Procal 5.99 Hypotensive today. TLC inserted L. IJ Sepsis secondary to VRE urine and/or pneumonia PPx Heparin 5000 SC Q8 PT/OT Renal Diet <LuisanafEvan M - Last Filed: 11/08/17 18:54> CCU Objective - Vital Signs / Intake & Output Vital Signs (Last 4 hours): Vital Signs Temp Pulse Resp BP Pulse Ox 11/08/17 18:00 98.5 F 65 25 H 102/43 L 97 11/08/17 17:55 64 27 H 102/43 L 97 11/08/17 17:25 72 22 108/51 L 97 11/08/17 17:06 66 25 H 109/52 L 98 11/08/17 17:00 68 22 98 11/08/17 16:55 67 22 109/52 L 98 11/08/17 16:25 67 23 106/50 L 98 11/08/17 16:00 66 22 98 11/08/17 15:55 64 20 108/46 L 98 11/08/17 15:25 64 23 109/51 L 98 11/08/17 15:00 63 23 99 11/08/17 14:55 63 22 108/48 L 98 Intake and Output (Last 8hrs): Intake & Output 11/08/17 11/08/17 11/08/17 06:59 14:59 22:59 Intake Total 1552.8 1323.3 1196.1 Output Total 280 150 Balance 1272.8 1323.3 1046.1 Weight 112 lb 9.6 oz Intake: IV 508 100 508 Intake, IV Amount 804.8 853.3 448.1 Left Distal Port 300 360 300 Left Medial Port 480 465.4 138.8 Left Proximal Port 24.8 27.9 9.3 Right Hand 0 0 Tube Feeding 240 270 90 Other 100 150 Output: Chest Tube Drainage 280 150 Right Posterior Chest 280 150 Other: # Bowel Movements 0 0 1 - Medications Active Medications: Active Medications Generic Name Dose Route Start Last Admin Trade Name Freq PRN Reason Stop Dose Admin Acetaminophen 650 mg 11/06/17 23:47 11/08/17 00:16 Tylenol 650mg/20.3ml Solution Ud PO 650 mg Q4 PRN Administration Temperature Amiodarone HCl 200 mg 11/05/17 17:17 11/08/17 17:58 Cordarone PO 200 mg BID TANI Administration Calcium Acetate 1,334 mg 10/27/17 09:29 11/08/17 17:57 Phoslo PO 1,334 mg TIDCC TANI Administration Enoxaparin Sodium 40 mg 11/08/17 10:30 11/08/17 11:09 Lovenox SC 40 mg DAILY TANI Administration Epoetin Pepe 10,000 unit 10/22/17 14:30 11/05/17 13:16 Procrit IV 10,000 unit MWF TANI Administration Ferric Sodium Gluconate 110 mls @ 110 mls/hr 11/05/17 14:30 11/08/17 11:51 Complex 125 mg/ Sodium IVPB 11/13/17 14:31 110 mls/hr Chloride DAILY TANI Administration Cefepime HCl 1 gm in 50 mls @ 100 mls/hr 11/05/17 19:00 11/08/17 18:00 Maxipime Iv 1 Gm Premix IVPB 100 mls/hr Q24H TANI Administration Propofol 1,000 mg in 100 mls @ 1.555 mls/hr 11/05/17 18:43 11/08/17 09:26 Diprivan IV 10 mcg/kg/min .Q24H PRN 3.111 mls/hr TITRATE PER MD ORDER Administration Protocol 5 MCG/KG/MIN Linezolid 600 mg in 300 mls @ 200 mls/hr 11/07/17 18:00 11/08/17 17:58 Zyvox 600mg/300ml D5w IVPB 200 mls/hr Q12H TANI Administration Norepinephrine Bitartrate 8 mg 508 mls @ 19.05 mls/hr 11/07/17 21:28 17:06 / Sodium Chloride IV 12 mcg/min .Q24H PRN 45.72 mls/hr TITRATE PER MD ORDER Administration Protocol 5 MCG/MIN Azithromycin 500 mg/ Dextrose 250 mls @ 250 mls/hr 11/08/17 09:00 11/08/17 10 :00 IVPB 250 mls/hr Q24H TANI Administration Lactulose 20 gm 10/29/17 22:00 Enulose PO HS PRN Constipation Midodrine 10 mg 10/26/17 08:33 11/08/17 17:58 Proamatine PO 10 mg TID TANI Administration Pantoprazole Sodium 40 mg 11/08/17 10:30 11/08/17 11:09 Protonix Inj IVP 40 mg DAILY TANI Administration Tamsulosin HCl 0.4 mg 10/12/17 10:00 11/08/17 09:25 Flomax PO 0.4 mg DAILY TANI Administration Vitamin B Complex/Vit C/Folic Acid 1 tab 10/12/17 10:00 11/08/17 09:25 Nephro-Aleksandra PO 1 tab DAILY TANI Administration - Patient Studies Lab Studies: Microbiology Studies 11/07/17 14:45 Gram Stain - Final Pleural Fluid Body Fluid Culture - Preliminary NO GROWTH AFTER 24 HOURS 11/05/17 18:00 Blood Culture - Preliminary Blood-Venous NO GROWTH AFTER 3 DAYS 11/05/17 18:00 Blood Culture - Preliminary Blood-Venous NO GROWTH AFTER 3 DAYS 11/05/17 17:24 Urine Culture - Final Urine,Catheterized Pseudomonas Aeruginosa Enterococcus Faecalis Lab Studies 11/08/17 11/08/17 11/08/17 Range/Units 08:39 08:39 05:23 WBC 5.1 (4.8-10.8) K/uL RBC 3.40 L (4.40-5.90) Mil/uL Hgb 10.4 L (12.0-18.0) g/dL Hct 32.9 L (35.0-51.0) % MCV 96.6 H (80.0-94.0) fL MCH 30.6 (27.0-31.0) pg MCHC 31.7 L (33.0-37.0) g/dL RDW 19.0 H (11.5-14.5) % Plt Count 97 L (130-400) K/uL MPV 9.6 (7.2-11.7) fL Neut % (Auto) 93.0 H (50.0-75.0) % Lymph % (Auto) 5.1 L (20.0-40.0) % Cecil % (Auto) 1.6 (0.0-10.0) % Eos % (Auto) 0.1 (0.0-4.0) % Baso % (Auto) 0.2 (0.0-2.0) % Neut # 4.7 (1.8-7.0) K/uL Lymph # 0.3 L (1.0-4.3) K/uL Cecil # 0.1 (0.0-0.8) K/uL Eos # 0.0 (0.0-0.7) K/uL Baso # 0.0 (0.0-0.2) K/uL Neutrophils % (Manual) 82 H (50-75) % Band Neutrophils % 10 H (0-2) % Lymphocytes % (Manual) 4 L (20-40) % Monocytes % (Manual) 4 (0-10) % Platelet Estimate Decreased L (NORMAL) Polychromasia Slight Hypochromasia (manual) Slight Anisocytosis (manual) Slight Macrocytosis (manual) Slight Target Cells Slight Ovalocytes Slight [place] Cells Slight Puncture Site Rb pCO2 40 (35-45) mm/Hg pO2 94 (80-100) mm/Hg HCO3 26.5 (21-28) mmol/L ABG pH 7.43 (7.35-7.45) ABG Total CO2 27.7 (22-28) mmol/L ABG O2 Saturation 97.5 (95-98) % ABG Base Excess 2.0 (-2.0-3.0) mmol/L ABG Hemoglobin 10.6 L (11.7-17.4) g/dL ABG Carboxyhemoglobin 1.2 (0.5-1.5) % POC ABG HHb (Measured) 2.4 (0.0-5.0) % ABG Methemoglobin 1.2 (0.0-3.0) % Scar Test Na A-a O2 Difference 213.0 mm/Hg Respiratory Index 2.3 Hgb O2 Saturation 95.3 (95.0-98.0) % Vent Mode Prvc Mechanical Rate 18 FiO2 50.0 % Tidal Volume 400 PEEP 5 Sodium 129 L (132-148) mmol/L Potassium 3.6 (3.6-5.2) mmol/L Chloride 93 L (98-107) mmol/L Carbon Dioxide 28 (22-30) mmol/L Anion Gap 11 (10-20) BUN 44 H (9-20) mg/dL Creatinine 4.2 H (0.8-1.5) mg/dL Est GFR ( Amer) 17 Est GFR (Non-Af Amer) 14 Random Glucose 148 H (75-110) mg/dL Calcium 7.5 L (8.6-10.4) mg/dl Total Bilirubin 0.7 (0.2-1.3) mg/dL AST 90 H (17-59) U/L ALT 60 (21-72) U/L Alkaline Phosphatase 186 H D (38-126) U/L Total Protein 6.2 L (6.3-8.3) g/dL Albumin 2.6 L (3.5-5.0) g/dL Globulin 3.7 (2.2-3.9) gm/dL Albumin/Globulin Ratio 0.7 L (1.0-2.1) Fluid Diff Path Review Fluid Comment 11/07/17 Range/Units 15:53 WBC (4.8-10.8) K/uL RBC (4.40-5.90) Mil/uL Hgb (12.0-18.0) g/dL Hct (35.0-51.0) % MCV (80.0-94.0) fL MCH (27.0-31.0) pg MCHC (33.0-37.0) g/dL RDW (11.5-14.5) % Plt Count (130-400) K/uL MPV (7.2-11.7) fL Neut % (Auto) (50.0-75.0) % Lymph % (Auto) (20.0-40.0) % Cecil % (Auto) (0.0-10.0) % Eos % (Auto) (0.0-4.0) % Baso % (Auto) (0.0-2.0) % Neut # (1.8-7.0) K/uL Lymph # (1.0-4.3) K/uL Cecil # (0.0-0.8) K/uL Eos # (0.0-0.7) K/uL Baso # (0.0-0.2) K/uL Neutrophils % (Manual) (50-75) % Band Neutrophils % (0-2) % Lymphocytes % (Manual) (20-40) % Monocytes % (Manual) (0-10) % Platelet Estimate (NORMAL) Polychromasia Hypochromasia (manual) Anisocytosis (manual) Macrocytosis (manual) Target Cells Ovalocytes [place] Cells Puncture Site pCO2 (35-45) mm/Hg pO2 (80-100) mm/Hg HCO3 (21-28) mmol/L ABG pH (7.35-7.45) ABG Total CO2 (22-28) mmol/L ABG O2 Saturation (95-98) % ABG Base Excess (-2.0-3.0) mmol/L ABG Hemoglobin (11.7-17.4) g/dL ABG Carboxyhemoglobin (0.5-1.5) % POC ABG HHb (Measured) (0.0-5.0) % ABG Methemoglobin (0.0-3.0) % Scar Test A-a O2 Difference mm/Hg Respiratory Index Hgb O2 Saturation (95.0-98.0) % Vent Mode Mechanical Rate FiO2 % Tidal Volume PEEP Sodium (132-148) mmol/L Potassium (3.6-5.2) mmol/L Chloride (98-107) mmol/L Carbon Dioxide (22-30) mmol/L Anion Gap (10-20) BUN (9-20) mg/dL Creatinine (0.8-1.5) mg/dL Est GFR ( Amer) Est GFR (Non-Af Amer) Random Glucose (75-110) mg/dL Calcium (8.6-10.4) mg/dl Total Bilirubin (0.2-1.3) mg/dL AST (17-59) U/L ALT (21-72) U/L Alkaline Phosphatase (38-126) U/L Total Protein (6.3-8.3) g/dL Albumin (3.5-5.0) g/dL Globulin (2.2-3.9) gm/dL Albumin/Globulin Ratio (1.0-2.1) Fluid Diff Path Review Fluid Comment Laboratory Results - last 24 hr 11/07/17 11/08/17 11/08/17 15:53 05:23 08:39 WBC 5.1 RBC 3.40 L Hgb 10.4 L Hct 32.9 L MCV 96.6 H MCH 30.6 MCHC 31.7 L RDW 19.0 H Plt Count 97 L MPV 9.6 Neut % (Auto) 93.0 H Lymph % (Auto) 5.1 L Cecil % (Auto) 1.6 Eos % (Auto) 0.1 Baso % (Auto) 0.2 Neut # 4.7 Lymph # 0.3 L Cecil # 0.1 Eos # 0.0 Baso # 0.0 Neutrophils % (Manual) 82 H Band Neutrophils % 10 H Lymphocytes % (Manual) 4 L Monocytes % (Manual) 4 Platelet Estimate Decreased L Polychromasia Slight Hypochromasia (manual) Slight Anisocytosis (manual) Slight Macrocytosis (manual) Slight Target Cells Slight Ovalocytes Slight [place] Cells Slight Puncture Site Rb pCO2 40 pO2 94 HCO3 26.5 ABG pH 7.43 ABG Total CO2 27.7 ABG O2 Saturation 97.5 ABG Base Excess 2.0 ABG Hemoglobin 10.6 L ABG Carboxyhemoglobin 1.2 POC ABG HHb (Measured) 2.4 ABG Methemoglobin 1.2 Scar Test Na A-a O2 Difference 213.0 Respiratory Index 2.3 Hgb O2 Saturation 95.3 Vent Mode Prvc Mechanical Rate 18 FiO2 50.0 Tidal Volume 400 PEEP 5 Sodium Potassium Chloride Carbon Dioxide Anion Gap BUN Creatinine Est GFR ( Amer) Est GFR (Non-Af Amer) Random Glucose Calcium Total Bilirubin AST ALT Alkaline Phosphatase Total Protein Albumin Globulin Albumin/Globulin Ratio Fluid Diff Path Review Fluid Comment 11/08/17 08:39 WBC RBC Hgb Hct MCV MCH MCHC RDW Plt Count MPV Neut % (Auto) Lymph % (Auto) Cecil % (Auto) Eos % (Auto) Baso % (Auto) Neut # Lymph # Cecil # Eos # Baso # Neutrophils % (Manual) Band Neutrophils % Lymphocytes % (Manual) Monocytes % (Manual) Platelet Estimate Polychromasia Hypochromasia (manual) Anisocytosis (manual) Macrocytosis (manual) Target Cells Ovalocytes [place] Cells Puncture Site pCO2 pO2 HCO3 ABG pH ABG Total CO2 ABG O2 Saturation ABG Base Excess ABG Hemoglobin ABG Carboxyhemoglobin POC ABG HHb (Measured) ABG Methemoglobin Scar Test A-a O2 Difference Respiratory Index Hgb O2 Saturation Vent Mode Mechanical Rate FiO2 Tidal Volume PEEP Sodium 129 L Potassium 3.6 Chloride 93 L Carbon Dioxide 28 Anion Gap 11 BUN 44 H Creatinine 4.2 H Est GFR ( Amer) 17 Est GFR (Non-Af Amer) 14 Random Glucose 148 H Calcium 7.5 L Total Bilirubin 0.7 AST 90 H ALT 60 Alkaline Phosphatase 186 H D Total Protein 6.2 L Albumin 2.6 L Globulin 3.7 Albumin/Globulin Ratio 0.7 L Fluid Diff Path Review Fluid Comment Critical Care Progress Note - Nutrition Nutrition: Nutrition Category Date Time Status Renal Diet [DIET] Diets 10/27/17 Breakfast Active Attending/Attestation - Attestation I have personally seen and examined this patient.: Yes I have fully participated in the care of the patient.: Yes I have reviewed all pertinent clinical information: Yes Notes (Text): 11/08/17 18:54 Today: October The Patient was seen and examined at the bedside, Medical records reviewed, and management issues were discussed and formulated with the house staff. I have reviewed all the relevant clinical, laboratory, hemodynamic, radiographic data and medications Events reviewed Pain issues, skin care, head of the bed elevation, glycemic control were addressed. Agree with above resident's assessment and treatment plans of care as transcribed in Dr. Brooks note.
[2017-11-08] MEDS: Ferric Sodium Gluconat Complex 125 MG in Sodium Chloride 0.9% 100 ML IVPB SCH (11:51)
--- NOTE | 2017-11-08 13:32 | CP.PCM.PN ---
Subjective - Date & Time of Evaluation Date of Evaluation: 11/08/17 Time of Evaluation: 13:31 - Subjective Subjective: REMAINS INTUBATED RESPONSIVE ON LEVOPHED CXR NOT MUCH CHANGE ON IV AB D/W BROTHER PT'S PROGNOSIS Objective - Vital Signs/Intake and Output Vital Signs (last 24 hours): Temp Pulse Resp BP Pulse Ox 97.7 F 64 25 H 92/48 L 97 11/08/17 10:00 11/08/17 11:55 11/08/17 11:55 11/08/17 11:55 11/08/17 11:55 Intake and Output: 11/08/17 11/08/17 11:59 23:59 Intake Total 2537.3 Output Total 280 Balance 2257.3 - Medications Medications: Current Medications Acetaminophen (Tylenol 650mg/20.3ml Solution Ud) 650 mg PO Q4 PRN PRN Reason: Temperature Last Admin: 11/08/17 00:16 Dose: 650 mg Amiodarone HCl (Cordarone) 200 mg PO BID [facility] Last Admin: 11/08/17 09:25 Dose: 200 mg Calcium Acetate (Phoslo) 1,334 mg PO TIDCC [facility] Last Admin: 11/08/17 09:25 Dose: 1,334 mg Enoxaparin Sodium (Lovenox) 40 mg SC DAILY [facility] Last Admin: 11/08/17 11:09 Dose: 40 mg Epoetin Pepe (Procrit) 10,000 unit IV MWF [facility] Last Admin: 11/05/17 13:16 Dose: 10,000 unit Ferric Sodium Gluconate Complex 125 mg/ Sodium Chloride 110 mls @ 110 mls/hr IVPB DAILY [facility] Stop: 11/13/17 14:31 Last Admin: 11/08/17 11:51 Dose: 110 mls/hr Cefepime HCl (Maxipime Iv 1 Gm Premix) 1 gm in 50 mls @ 100 mls/hr IVPB Q24H [facility] Last Admin: 11/07/17 18:27 Dose: 100 mls/hr Propofol (Diprivan) 1,000 mg in 100 mls @ 1.555 mls/hr IV .Q24H PRN; Protocol; 5 MCG/KG/MIN PRN Reason: TITRATE PER MD ORDER Last Admin: 11/08/17 09:26 Dose: 10 mcg/kg/min, 3.111 mls/hr Linezolid (Zyvox 600mg/300ml D5w) 600 mg in 300 mls @ 200 mls/hr IVPB Q12H [facility] Last Admin: 11/08/17 05:42 Dose: 200 mls/hr Norepinephrine Bitartrate 8 mg (/ Sodium Chloride) 508 mls @ 19.05 mls/hr IV .Q24H PRN; Protocol; 5 MCG/MIN PRN Reason: TITRATE PER MD ORDER Last Titration: 11/08/17 10:01 Dose: 13 mcg/min, 49.53 mls/hr Azithromycin 500 mg/ Dextrose 250 mls @ 250 mls/hr IVPB Q24H [facility] Last Admin: 11/08/17 10:00 Dose: 250 mls/hr Lactulose (Enulose) 20 gm PO HS PRN PRN Reason: Constipation Midodrine (Proamatine) 10 mg PO TID [facility] Last Admin: 11/08/17 09:25 Dose: 10 mg Pantoprazole Sodium (Protonix Inj) 40 mg IVP DAILY [facility] Last Admin: 11/08/17 11:09 Dose: 40 mg Tamsulosin HCl (Flomax) 0.4 mg PO DAILY [facility] Last Admin: 11/08/17 09:25 Dose: 0.4 mg Vitamin B Complex/Vit C/Folic Acid (Nephro-Aleksandra) 1 tab PO DAILY [facility] Last Admin: 11/08/17 09:25 Dose: 1 tab - Labs Labs: 11/08/17 08:39 11/08/17 08:39 PT 13.9 SECONDS (9.7-12.2) H 10/24/17 06:20 INR 1.2 10/24/17 06:20 APTT 57 SECONDS (21-34) H D 10/30/17 06:12
[2017-11-08] MEDS: Cefepime IV 1 gm in Dextrose 1 GM/50 ML BAG IVPB SCH (18:00)
--- NOTE | 2017-11-08 19:46 | CP.PCM.PN ---
Subjective - Date & Time of Evaluation Date of Evaluation: 11/08/17 Time of Evaluation: 09:00 - Subjective Subjective: cultures reviewed iv rx in progress prognosis remains poor Objective - Vital Signs/Intake and Output Vital Signs (last 24 hours): Temp Pulse Resp BP Pulse Ox 98.5 F 67 28 H 114/52 L 99 11/08/17 18:00 11/08/17 19:25 11/08/17 19:25 11/08/17 19:25 11/08/17 19:25 Intake and Output: 11/08/17 11/09/17 18:59 06:59 Intake Total 2519.4 128.1 Output Total 150 Balance 2369.4 128.1 - Medications Medications: Current Medications Acetaminophen (Tylenol 650mg/20.3ml Solution Ud) 650 mg PO Q4 PRN PRN Reason: Temperature Last Admin: 11/08/17 00:16 Dose: 650 mg Amiodarone HCl (Cordarone) 200 mg PO BID [facility] Last Admin: 11/08/17 17:58 Dose: 200 mg Calcium Acetate (Phoslo) 1,334 mg PO TIDCC [facility] Last Admin: 11/08/17 17:57 Dose: 1,334 mg Enoxaparin Sodium (Lovenox) 40 mg SC DAILY [facility] Last Admin: 11/08/17 11:09 Dose: 40 mg Epoetin Pepe (Procrit) 10,000 unit IV MWF [facility] Last Admin: 11/05/17 13:16 Dose: 10,000 unit Ferric Sodium Gluconate Complex 125 mg/ Sodium Chloride 110 mls @ 110 mls/hr IVPB DAILY [facility] Stop: 11/13/17 14:31 Last Admin: 11/08/17 11:51 Dose: 110 mls/hr Cefepime HCl (Maxipime Iv 1 Gm Premix) 1 gm in 50 mls @ 100 mls/hr IVPB Q24H [facility] Last Admin: 11/08/17 18:00 Dose: 100 mls/hr Propofol (Diprivan) 1,000 mg in 100 mls @ 1.555 mls/hr IV .Q24H PRN; Protocol; 5 MCG/KG/MIN PRN Reason: TITRATE PER MD ORDER Last Admin: 11/08/17 09:26 Dose: 10 mcg/kg/min, 3.111 mls/hr Linezolid (Zyvox 600mg/300ml D5w) 600 mg in 300 mls @ 200 mls/hr IVPB Q12H [facility] Last Admin: 11/08/17 17:58 Dose: 200 mls/hr Norepinephrine Bitartrate 8 mg (/ Sodium Chloride) 508 mls @ 19.05 mls/hr IV .Q24H PRN; Protocol; 5 MCG/MIN PRN Reason: TITRATE PER MD ORDER Last Admin: 11/08/17 17:06 Dose: 12 mcg/min, 45.72 mls/hr Azithromycin 500 mg/ Dextrose 250 mls @ 250 mls/hr IVPB Q24H [facility] Last Admin: 11/08/17 10:00 Dose: 250 mls/hr Lactulose (Enulose) 20 gm PO HS PRN PRN Reason: Constipation Midodrine (Proamatine) 10 mg PO TID [facility] Last Admin: 11/08/17 17:58 Dose: 10 mg Pantoprazole Sodium (Protonix Inj) 40 mg IVP DAILY [facility] Last Admin: 11/08/17 11:09 Dose: 40 mg Tamsulosin HCl (Flomax) 0.4 mg PO DAILY [facility] Last Admin: 11/08/17 09:25 Dose: 0.4 mg Vitamin B Complex/Vit C/Folic Acid (Nephro-Aleksandra) 1 tab PO DAILY [facility] Last Admin: 11/08/17 09:25 Dose: 1 tab - Labs Labs: 11/08/17 08:39 11/08/17 08:39 PT 13.9 SECONDS (9.7-12.2) H 10/24/17 06:20 INR 1.2 10/24/17 06:20 APTT 57 SECONDS (21-34) H D 10/30/17 06:12 - Constitutional Appears: Cachectic, Chronically Ill - Head Exam Head Exam: NORMOCEPHALIC - Eye Exam Eye Exam: absent: Scleral icterus - ENT Exam ENT Exam: Mucous Membranes Dry - Neck Exam Neck Exam: absent: Lymphadenopathy - Respiratory Exam Respiratory Exam: Decreased Breath Sounds - Cardiovascular Exam Cardiovascular Exam: REGULAR RHYTHM - GI/Abdominal Exam GI & Abdominal Exam: Distended, Soft - Rectal Exam Rectal Exam: Deferred - Exam Exam: absent: NORMAL INSPECTION Assessment and Plan - Assessment and Plan (Free Text) Plan: cont empiric rx for sepsis vre / Pseudomonas poor prognosis
[2017-11-09] MEDS: Norepinephrine 8 MG in Sodium Chloride 0.9% 500 ML IV PRN ×2 (04:35→15:00)
[2017-11-09] MEDS: Linezolid 600 mg in D5W 300 ml 600 MG/300 ML BAG IVPB SCH ×2 (05:34→17:09)
[2017-11-09 05:45] LABS: ARTERIAL BLOOD GAS HCO3 22.6 mmol/L (21-28); ARTERIAL BLOOD GAS HEMOGLOBIN 10.3 g/dL (11.7-17.4); ARTERIAL BLOOD GAS O2 SAT 97.4 % (95-98); ARTERIAL BLOOD GAS PCO2 38 mm/Hg (35-45); ARTERIAL BLOOD GAS PH 7.37 (7.35-7.45); ARTERIAL BLOOD GAS PO2 91 mm/Hg (80-100); ARTERIAL BLOOD GAS TCO2 23.2 mmol/L (22-28)
[2017-11-09 07:00] LABS: HEMOGLOBIN 10.4 g/dL (12.0-18.0); MEAN CELL VOLUME 95.7 fL (80.0-94.0); MEAN CORPUSCULAR HEMOGLOBIN 30.6 pg (27.0-31.0); MEAN PLATELET VOLUME 10.3 fL (7.2-11.7); PLATELET COUNT 87 K/uL (130-400); RBC 3.38 Mil/uL (4.40-5.90); RED CELL DISTRIBUTION WIDTH 19.6 % (11.5-14.5)
--- NOTE | 2017-11-09 08:06 | CP.CCUPN ---
<Krishna Brooks - Last Filed: 11/09/17 12:25> CCU Subjective - Physician Review Subjective (Free Text): 11/09/17 08:13 patient seen and examined at bedside R. chest tube intubate, / Dialysis today sepsis likely secondary to vre/pseudmonas tube feeds nephro goal 50 family at bedside, discussed in detail CCU Objective - Vital Signs / Intake & Output Vital Signs (Last 4 hours): Vital Signs Temp Pulse Resp BP Pulse Ox 11/09/17 07:25 60 28 H 97/46 L 100 11/09/17 07:00 60 28 H 98 11/09/17 06:55 60 30 H 96/43 L 81 L 11/09/17 06:25 65 25 H 104/48 L 98 11/09/17 06:00 97.8 F 63 28 H 97 11/09/17 05:55 62 29 H 85/32 L 75 L 11/09/17 05:25 64 22 105/45 L 100 11/09/17 05:00 65 25 H 98 11/09/17 04:55 65 24 111/48 L 100 11/09/17 04:35 66 27 H 105/45 L 99 11/09/17 04:25 64 26 H 107/45 L 99 Intake and Output (Last 8hrs): Intake & Output 11/08/17 11/09/17 11/09/17 22:59 06:59 14:59 Intake Total 1558.5 1132.8 78.1 Output Total 150 480 Balance 1408.5 1132.8 -401.9 Weight 112 lb 9.6 oz Intake: IV 508 508 Intake, IV Amount 690.5 384.8 48.1 Left Distal Port 350 Left Medial Port 318.8 360 45 Left Proximal Port 21.7 24.8 3.1 Right Hand 0 Tube Feeding 210 240 30 Other 150 Output: Chest Tube Drainage 150 480 Right Posterior Chest 150 480 Other: # Bowel Movements 0 2 0 - Physical Exam Head: Positive for: Atraumatic, Normocephalic Extroacular Muscles: Positive for: EOMI. Negative for: Gaze Palsy Conjunctiva: Positive for: Normal Mouth: Positive for: Moist Mucous Membranes, Normal Lips Neck: Positive for: Normal Range of Motion, Other (L IJ) Respiratory/Chest: Positive for: Clear to Auscultation, Other (intubated) Cardiovascular: Positive for: Regular Rate and Rhythm Abdomen: Positive for: Normal Bowel Sounds Upper Extremity: Positive for: Normal Inspection, Capillary Refill < 2s. Negative for: Edema Lower Extremity: Positive for: Normal Inspection, Capillary Refill < 2 s. Negative for: Edema Neurological: Positive for: Speech Normal Psychiatric: Positive for: Alert, Oriented x 3 - Medications Active Medications: Active Medications Generic Name Dose Route Start Last Admin Trade Name Freq PRN Reason Stop Dose Admin Acetaminophen 650 mg 11/06/17 23:47 11/08/17 00:16 Tylenol 650mg/20.3ml Solution Ud PO 650 mg Q4 PRN Administration Temperature Amiodarone HCl 200 mg 11/05/17 17:17 11/08/17 17:58 Cordarone PO 200 mg BID TANI Administration Calcium Acetate 1,334 mg 10/27/17 09:29 11/08/17 17:57 Phoslo PO 1,334 mg TIDCC TANI Administration Enoxaparin Sodium 40 mg 11/08/17 10:30 11/08/17 11:09 Lovenox SC 40 mg DAILY TANI Administration Epoetin Pepe 10,000 unit 10/22/17 14:30 11/05/17 13:16 Procrit IV 10,000 unit MWF TANI Administration Ferric Sodium Gluconate 110 mls @ 110 mls/hr 11/05/17 14:30 11/08/17 11:51 Complex 125 mg/ Sodium IVPB 11/13/17 14:31 110 mls/hr Chloride DAILY TANI Administration Cefepime HCl 1 gm in 50 mls @ 100 mls/hr 11/05/17 19:00 11/08/17 18:00 Maxipime Iv 1 Gm Premix IVPB 100 mls/hr Q24H TANI Administration Propofol 1,000 mg in 100 mls @ 1.555 mls/hr 11/05/17 18:43 11/08/17 09:26 Diprivan IV 10 mcg/kg/min .Q24H PRN 3.111 mls/hr TITRATE PER MD ORDER Administration Protocol 5 MCG/KG/MIN Linezolid 600 mg in 300 mls @ 200 mls/hr 11/07/17 18:00 11/09/17 05:34 Zyvox 600mg/300ml D5w IVPB 200 mls/hr Q12H TANI Administration Norepinephrine Bitartrate 8 mg 508 mls @ 19.05 mls/hr 11/07/17 21:28 04:35 / Sodium Chloride IV 12 mcg/min .Q24H PRN 45.72 mls/hr TITRATE PER MD ORDER Administration Protocol 5 MCG/MIN Lactulose 20 gm 10/29/17 22:00 Enulose PO HS PRN Constipation Midodrine 10 mg 10/26/17 08:33 11/08/17 17:58 Proamatine PO 10 mg TID TANI Administration Pantoprazole Sodium 40 mg 11/08/17 10:30 11/08/17 11:09 Protonix Inj IVP 40 mg DAILY TANI Administration Tamsulosin HCl 0.4 mg 10/12/17 10:00 11/08/17 09:25 Flomax PO 0.4 mg DAILY TANI Administration Vitamin B Complex/Vit C/Folic Acid 1 tab 10/12/17 10:00 11/08/17 09:25 Nephro-Aleksandra PO 1 tab DAILY TANI Administration - Patient Studies Lab Studies: Microbiology Studies 11/07/17 14:45 Gram Stain - Final Pleural Fluid Body Fluid Culture - Preliminary NO GROWTH AFTER 24 HOURS 11/05/17 18:00 Blood Culture - Preliminary Blood-Venous NO GROWTH AFTER 3 DAYS 11/05/17 18:00 Blood Culture - Preliminary Blood-Venous NO GROWTH AFTER 3 DAYS 11/05/17 17:24 Urine Culture - Final Urine,Catheterized Pseudomonas Aeruginosa Enterococcus Faecalis Lab Studies 11/09/17 11/09/17 11/08/17 Range/Units 06:52 05:15 08:39 WBC 7.0 (4.8-10.8) K/uL RBC 3.38 L (4.40-5.90) Mil/uL Hgb 10.4 L (12.0-18.0) g/dL Hct 32.4 L (35.0-51.0) % MCV 95.7 H (80.0-94.0) fL MCH 30.6 (27.0-31.0) pg MCHC 32.0 L (33.0-37.0) g/dL RDW 19.6 H (11.5-14.5) % Plt Count 87 L (130-400) K/uL MPV 10.3 (7.2-11.7) fL Neut % (Auto) (50.0-75.0) % Lymph % (Auto) (20.0-40.0) % [place] % (Auto) (0.0-10.0) % Eos % (Auto) (0.0-4.0) % Baso % (Auto) (0.0-2.0) % Neut # (1.8-7.0) K/uL Lymph # (1.0-4.3) K/uL [place] # (0.0-0.8) K/uL Eos # (0.0-0.7) K/uL Baso # (0.0-0.2) K/uL Neutrophils % (Manual) (50-75) % Band Neutrophils % (0-2) % Lymphocytes % (Manual) (20-40) % Monocytes % (Manual) (0-10) % Platelet Estimate (NORMAL) Polychromasia Hypochromasia (manual) Anisocytosis (manual) Macrocytosis (manual) Target Cells Ovalocytes [place] Cells Puncture Site Rb pCO2 38 (35-45) mm/Hg pO2 91 (80-100) mm/Hg HCO3 22.6 (21-28) mmol/L ABG pH 7.37 (7.35-7.45) ABG Total CO2 23.2 (22-28) mmol/L ABG O2 Saturation 97.4 (95-98) % ABG Base Excess -3.0 L (-2.0-3.0) mmol/L ABG Hemoglobin 10.3 L (11.7-17.4) g/dL ABG Carboxyhemoglobin 1.2 (0.5-1.5) % POC ABG HHb (Measured) 2.6 (0.0-5.0) % ABG Methemoglobin 0.5 (0.0-3.0) % Scar Test Na A-a O2 Difference 218.0 mm/Hg Respiratory Index 2.4 Hgb O2 Saturation 95.8 (95.0-98.0) % Vent Mode Cpap FiO2 50.0 % Pressure Support 10 CPAP 5 Sodium 129 L (132-148) mmol/L Potassium 3.6 (3.6-5.2) mmol/L Chloride 93 L (98-107) mmol/L Carbon Dioxide 28 (22-30) mmol/L Anion Gap 11 (10-20) BUN 44 H (9-20) mg/dL Creatinine 4.2 H (0.8-1.5) mg/dL Est GFR ( Amer) 17 Est GFR (Non-Af Amer) 14 Random Glucose 148 H (75-110) mg/dL Calcium 7.5 L (8.6-10.4) mg/dl Total Bilirubin 0.7 (0.2-1.3) mg/dL AST 90 H (17-59) U/L ALT 60 (21-72) U/L Alkaline Phosphatase 186 H D (38-126) U/L Total Protein 6.2 L (6.3-8.3) g/dL Albumin 2.6 L (3.5-5.0) g/dL Globulin 3.7 (2.2-3.9) gm/dL Albumin/Globulin Ratio 0.7 L (1.0-2.1) Fluid Diff Path Review Fluid Comment 11/08/17 11/07/17 Range/Units 08:39 15:53 WBC 5.1 (4.8-10.8) K/uL RBC 3.40 L (4.40-5.90) Mil/uL Hgb 10.4 L (12.0-18.0) g/dL Hct 32.9 L (35.0-51.0) % MCV 96.6 H (80.0-94.0) fL MCH 30.6 (27.0-31.0) pg MCHC 31.7 L (33.0-37.0) g/dL RDW 19.0 H (11.5-14.5) % Plt Count 97 L (130-400) K/uL MPV 9.6 (7.2-11.7) fL Neut % (Auto) 93.0 H (50.0-75.0) % Lymph % (Auto) 5.1 L (20.0-40.0) % [place] % (Auto) 1.6 (0.0-10.0) % Eos % (Auto) 0.1 (0.0-4.0) % Baso % (Auto) 0.2 (0.0-2.0) % Neut # 4.7 (1.8-7.0) K/uL Lymph # 0.3 L (1.0-4.3) K/uL [place] # 0.1 (0.0-0.8) K/uL Eos # 0.0 (0.0-0.7) K/uL Baso # 0.0 (0.0-0.2) K/uL Neutrophils % (Manual) 82 H (50-75) % Band Neutrophils % 10 H (0-2) % Lymphocytes % (Manual) 4 L (20-40) % Monocytes % (Manual) 4 (0-10) % Platelet Estimate Decreased L (NORMAL) Polychromasia Slight Hypochromasia (manual) Slight Anisocytosis (manual) Slight Macrocytosis (manual) Slight Target Cells Slight Ovalocytes Slight [place] Cells Slight Puncture Site pCO2 (35-45) mm/Hg pO2 (80-100) mm/Hg HCO3 (21-28) mmol/L ABG pH (7.35-7.45) ABG Total CO2 (22-28) mmol/L ABG O2 Saturation (95-98) % ABG Base Excess (-2.0-3.0) mmol/L ABG Hemoglobin (11.7-17.4) g/dL ABG Carboxyhemoglobin (0.5-1.5) % POC ABG HHb (Measured) (0.0-5.0) % ABG Methemoglobin (0.0-3.0) % Scar Test A-a O2 Difference mm/Hg Respiratory Index Hgb O2 Saturation (95.0-98.0) % Vent Mode FiO2 % Pressure Support CPAP Sodium (132-148) mmol/L Potassium (3.6-5.2) mmol/L Chloride (98-107) mmol/L Carbon Dioxide (22-30) mmol/L Anion Gap (10-20) BUN (9-20) mg/dL Creatinine (0.8-1.5) mg/dL Est GFR ( Amer) Est GFR (Non-Af Amer) Random Glucose (75-110) mg/dL Calcium (8.6-10.4) mg/dl Total Bilirubin (0.2-1.3) mg/dL AST (17-59) U/L ALT (21-72) U/L Alkaline Phosphatase (38-126) U/L Total Protein (6.3-8.3) g/dL Albumin (3.5-5.0) g/dL Globulin (2.2-3.9) gm/dL Albumin/Globulin Ratio (1.0-2.1) Fluid Diff Path Review Fluid Comment Laboratory Results - last 24 hr 11/07/17 11/08/17 11/08/17 15:53 08:39 08:39 WBC 5.1 RBC 3.40 L Hgb 10.4 L Hct 32.9 L MCV 96.6 H MCH 30.6 MCHC 31.7 L RDW 19.0 H Plt Count 97 L MPV 9.6 Neut % (Auto) 93.0 H Lymph % (Auto) 5.1 L [place] % (Auto) 1.6 Eos % (Auto) 0.1 Baso % (Auto) 0.2 Neut # 4.7 Lymph # 0.3 L [place] # 0.1 Eos # 0.0 Baso # 0.0 Neutrophils % (Manual) 82 H Band Neutrophils % 10 H Lymphocytes % (Manual) 4 L Monocytes % (Manual) 4 Platelet Estimate Decreased L Polychromasia Slight Hypochromasia (manual) Slight Anisocytosis (manual) Slight Macrocytosis (manual) Slight Target Cells Slight Ovalocytes Slight [place] Cells Slight Puncture Site pCO2 pO2 HCO3 ABG pH ABG Total CO2 ABG O2 Saturation ABG Base Excess ABG Hemoglobin ABG Carboxyhemoglobin POC ABG HHb (Measured) ABG Methemoglobin Scar Test A-a O2 Difference Respiratory Index Hgb O2 Saturation Vent Mode FiO2 Pressure Support CPAP Sodium 129 L Potassium 3.6 Chloride 93 L Carbon Dioxide 28 Anion Gap 11 BUN 44 H Creatinine 4.2 H Est GFR ( Amer) 17 Est GFR (Non-Af Amer) 14 Random Glucose 148 H Calcium 7.5 L Total Bilirubin 0.7 AST 90 H ALT 60 Alkaline Phosphatase 186 H D Total Protein 6.2 L Albumin 2.6 L Globulin 3.7 Albumin/Globulin Ratio 0.7 L Fluid Diff Path Review Fluid Comment 11/09/17 11/09/17 05:15 06:52 WBC 7.0 RBC 3.38 L Hgb 10.4 L Hct 32.4 L MCV 95.7 H MCH 30.6 MCHC 32.0 L RDW 19.6 H Plt Count 87 L MPV 10.3 Neut % (Auto) Lymph % (Auto) [place] % (Auto) Eos % (Auto) Baso % (Auto) Neut # Lymph # [place] # Eos # Baso # Neutrophils % (Manual) Band Neutrophils % Lymphocytes % (Manual) Monocytes % (Manual) Platelet Estimate Polychromasia Hypochromasia (manual) Anisocytosis (manual) Macrocytosis (manual) Target Cells Ovalocytes [place] Cells Puncture Site Rb pCO2 38 pO2 91 HCO3 22.6 ABG pH 7.37 ABG Total CO2 23.2 ABG O2 Saturation 97.4 ABG Base Excess -3.0 L ABG Hemoglobin 10.3 L ABG Carboxyhemoglobin 1.2 POC ABG HHb (Measured) 2.6 ABG Methemoglobin 0.5 Scar Test Na A-a O2 Difference 218.0 Respiratory Index 2.4 Hgb O2 Saturation 95.8 Vent Mode Cpap FiO2 50.0 Pressure Support 10 CPAP 5 Sodium Potassium Chloride Carbon Dioxide Anion Gap BUN Creatinine Est GFR ( Amer) Est GFR (Non-Af Amer) Random Glucose Calcium Total Bilirubin AST ALT Alkaline Phosphatase Total Protein Albumin Globulin Albumin/Globulin Ratio Fluid Diff Path Review Fluid Comment Critical Care Progress Note - Nutrition Nutrition: Nutrition Category Date Time Status Renal Diet [DIET] Diets 10/27/17 Breakfast Active Assessment/Plan - Assessment and Plan (Free Text) Assessment: 77M w/ Respiratory distress 2/2 fluid overload, intubated Plan: Cardio Cards ([place]) Lifevest - removed. No contact with skin with chest tube Amiodarone 200 PO BID Pulm Intubated Vent 18/400/5/50 Chest tube inserted on right - 430/12 out serosang, small pneumo resolving IR consult for possible thora of L. lung Multifocal pneumonia, Cefepime 1g IV QD,zyvox Propofol Light sedation Renal Nephro ([place]) ESRD on dialysis Uro (Gildardo Varela) urinary retention - flomax 0.4 PO QD sanon removed ID ID (Debra) - [place] covering fever 99.7. Tylenol per NGT f/u blood cultures - negative to date f/u urine cultures - negative to date cefepime 1g IV qd, zyvox Procal 5.99 TLC L. 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 Heparin 5000 SC Q8 PT/OT Renal Diet <Sukumar Caro - Last Filed: 11/09/17 16:21> CCU Objective - Vital Signs / Intake & Output Vital Signs (Last 4 hours): Vital Signs Temp Pulse Pulse Resp BP BP Pulse Ox 11/09/17 15:00 60 36 H 114/36 L 97 11/09/17 14:37 48 L 16 105/33 L 11/09/17 14:32 48 L 18 69/39 L 87 L 11/09/17 14:24 48 L 22 79/34 L 94 L 11/09/17 14:20 60 34 H 72/33 L 93 L 11/09/17 14:17 60 16 80/35 L 94 L 11/09/17 14:08 60 20 97/54 L 88 L 11/09/17 14:00 59 L 27 H 96 11/09/17 13:45 60 29 H 98/48 L 97 11/09/17 13:02 82 27 H 105/48 L 99 11/09/17 12:50 81 26 H 102/51 L 98 11/09/17 12:45 98.8 F 77 24 86/47 L 98 11/09/17 12:34 77 26 H 86/47 L 96 11/09/17 12:24 77 25 H 87/45 L 97 Intake and Output (Last 8hrs): Intake & Output 11/09/17 11/09/17 11/09/17 06:59 14:59 22:59 Intake Total 1132.8 1462.8 40 Output Total 2480 Balance 1132.8 -1017.2 40 Weight 112 lb 9.6 oz Intake: IV 508 468 40 Intake, IV Amount 384.8 414.8 Left Medial Port 360 390.0 Left Proximal Port 24.8 24.8 Tube Feeding 240 250 Other 330 Output: Chest Tube Drainage 480 Right Posterior Chest 480 Other 2000 Other: # Bowel Movements 2 0 - Medications Active Medications: Active Medications Generic Name Dose Route Start Last Admin Trade Name Freq PRN Reason Stop Dose Admin Acetaminophen 650 mg 11/06/17 23:47 11/08/17 00:16 Tylenol 650mg/20.3ml Solution Ud PO 650 mg Q4 PRN Administration Temperature Albuterol/Ipratropium 3 ml 11/09/17 14:00 Duoneb 3 Mg/0.5 Mg (3 Ml) Ud INH RQ6 TANI Amiodarone HCl 200 mg 11/05/17 17:17 11/09/17 09:38 Cordarone PO 200 mg BID TANI Administration Calcium Acetate 1,334 mg 10/27/17 09:29 11/09/17 12:03 Phoslo PO 1,334 mg TIDCC TANI Administration Enoxaparin Sodium 40 mg 11/08/17 10:30 11/09/17 13:43 Lovenox SC 40 mg DAILY TANI Administration Epoetin Pepe 10,000 unit 10/22/17 14:30 11/09/17 11:10 Procrit IV 10,000 unit MWF TANI Administration Ferric Sodium Gluconate 110 mls @ 110 mls/hr 11/05/17 14:30 11/09/17 11:16 Complex 125 mg/ Sodium IVPB 11/13/17 14:31 110 mls/hr Chloride DAILY TANI Administration Cefepime HCl 1 gm in 50 mls @ 100 mls/hr 11/05/17 19:00 11/08/17 18:00 Maxipime Iv 1 Gm Premix IVPB 100 mls/hr Q24H TANI Administration Propofol 1,000 mg in 100 mls @ 1.555 mls/hr 11/05/17 18:43 11/08/17 09:26 Diprivan IV 10 mcg/kg/min .Q24H PRN 3.111 mls/hr TITRATE PER MD ORDER Administration Protocol 5 MCG/KG/MIN Linezolid 600 mg in 300 mls @ 200 mls/hr 11/07/17 18:00 11/09/17 05:34 Zyvox 600mg/300ml D5w IVPB 200 mls/hr Q12H TANI Administration Norepinephrine Bitartrate 8 mg 508 mls @ 19.05 mls/hr 11/07/17 21:28 15:00 / Sodium Chloride IV 19.68 mcg/min .Q24H PRN 74.98 mls/hr TITRATE PER MD ORDER Administration Protocol 5 MCG/MIN Lactulose 20 gm 10/29/17 22:00 Enulose PO HS PRN Constipation Midodrine 10 mg 10/26/17 08:33 11/09/17 13:43 Proamatine PO 10 mg TID TANI Administration Pantoprazole Sodium 40 mg 11/08/17 10:30 11/09/17 13:43 Protonix Inj IVP 40 mg DAILY TANI Administration Tamsulosin HCl 0.4 mg 10/12/17 10:00 11/09/17 09:38 Flomax PO 0.4 mg DAILY TANI Administration Vitamin B Complex/Vit C/Folic Acid 1 tab 10/12/17 10:00 11/09/17 09:38 Nephro-Aleksandra PO 1 tab DAILY TANI Administration - Patient Studies Lab Studies: Microbiology Studies 11/07/17 15:06 Mycobacterial Culture - Preliminary Other: Please Indicate 11/07/17 14:45 Gram Stain - Final Pleural Fluid Body Fluid Culture - Preliminary NO GROWTH AFTER 2 DAYS 11/07/17 14:45 Anaerobic Culture - Final Pleural Fluid NO ANAEROBES ISOLATED. 11/05/17 18:00 Blood Culture - Preliminary Blood-Venous NO GROWTH AFTER 3 DAYS 11/05/17 18:00 Blood Culture - Preliminary Blood-Venous NO GROWTH AFTER 3 DAYS Lab Studies 11/09/17 11/09/17 11/09/17 Range/Units 06:52 06:52 05:15 WBC 7.0 (4.8-10.8) K/uL RBC 3.38 L (4.40-5.90) Mil/uL Hgb 10.4 L (12.0-18.0) g/dL Hct 32.4 L (35.0-51.0) % MCV 95.7 H (80.0-94.0) fL MCH 30.6 (27.0-31.0) pg MCHC 32.0 L (33.0-37.0) g/dL RDW 19.6 H (11.5-14.5) % Plt Count 87 L (130-400) K/uL MPV 10.3 (7.2-11.7) fL Neut % (Auto) 94.0 H (50.0-75.0) % Lymph % (Auto) 4.0 L (20.0-40.0) % [place] % (Auto) 2.0 (0.0-10.0) % Eos % (Auto) 0.0 (0.0-4.0) % Baso % (Auto) 0.0 (0.0-2.0) % Neut # 6.6 (1.8-7.0) K/uL Lymph # 0.3 L (1.0-4.3) K/uL [place] # 0.1 (0.0-0.8) K/uL Eos # 0.0 (0.0-0.7) K/uL Baso # 0.0 (0.0-0.2) K/uL Neutrophils % (Manual) 90 H (50-75) % Band Neutrophils % 7 H (0-2) % Lymphocytes % (Manual) 2 L (20-40) % Monocytes % (Manual) 1 (0-10) % Nucleated RBC % 1 H (0-0) % Toxic Granulation Present Platelet Estimate Normal (NORMAL) Large Platelets Present Polychromasia Slight Hypochromasia (manual) Slight Anisocytosis (manual) Slight Macrocytosis (manual) Slight Puncture Site Rb pCO2 38 (35-45) mm/Hg pO2 91 (80-100) mm/Hg HCO3 22.6 (21-28) mmol/L ABG pH 7.37 (7.35-7.45) ABG Total CO2 23.2 (22-28) mmol/L ABG O2 Saturation 97.4 (95-98) % ABG Base Excess -3.0 L (-2.0-3.0) mmol/L ABG Hemoglobin 10.3 L (11.7-17.4) g/dL ABG Carboxyhemoglobin 1.2 (0.5-1.5) % POC ABG HHb (Measured) 2.6 (0.0-5.0) % ABG Methemoglobin 0.5 (0.0-3.0) % Scar Test Na A-a O2 Difference 218.0 mm/Hg Respiratory Index 2.4 Hgb O2 Saturation 95.8 (95.0-98.0) % Vent Mode Cpap FiO2 50.0 % Pressure Support 10 CPAP 5 Sodium 126 L (132-148) mmol/L Potassium 4.0 (3.6-5.2) mmol/L Chloride 95 L (98-107) mmol/L Carbon Dioxide 23 (22-30) mmol/L Anion Gap 12 (10-20) BUN 56 H (9-20) mg/dL Creatinine 5.4 H (0.8-1.5) mg/dL Est GFR ( Amer) 13 Est GFR (Non-Af Amer) 10 Random Glucose 119 H (75-110) mg/dL Calcium 7.6 L (8.6-10.4) mg/dl Phosphorus 3.1 (2.5-4.5) mg/dL Magnesium 1.7 (1.6-2.3) mg/dL Total Bilirubin 0.7 (0.2-1.3) mg/dL AST 53 (17-59) U/L ALT 50 (21-72) U/L Alkaline Phosphatase 175 H (38-126) U/L Total Protein 5.7 L (6.3-8.3) g/dL Albumin 2.3 L (3.5-5.0) g/dL Globulin 3.4 (2.2-3.9) gm/dL Albumin/Globulin Ratio 0.7 L (1.0-2.1) Laboratory Results - last 24 hr 11/09/17 11/09/17 11/09/17 05:15 06:52 06:52 WBC 7.0 RBC 3.38 L Hgb 10.4 L Hct 32.4 L MCV 95.7 H MCH 30.6 MCHC 32.0 L RDW 19.6 H Plt Count 87 L MPV 10.3 Neut % (Auto) 94.0 H Lymph % (Auto) 4.0 L [place] % (Auto) 2.0 Eos % (Auto) 0.0 Baso % (Auto) 0.0 Neut # 6.6 Lymph # 0.3 L [place] # 0.1 Eos # 0.0 Baso # 0.0 Neutrophils % (Manual) 90 H Band Neutrophils % 7 H Lymphocytes % (Manual) 2 L Monocytes % (Manual) 1 Nucleated RBC % 1 H Toxic Granulation Present Platelet Estimate Normal Large Platelets Present Polychromasia Slight Hypochromasia (manual) Slight Anisocytosis (manual) Slight Macrocytosis (manual) Slight Puncture Site Rb pCO2 38 pO2 91 HCO3 22.6 ABG pH 7.37 ABG Total CO2 23.2 ABG O2 Saturation 97.4 ABG Base Excess -3.0 L ABG Hemoglobin 10.3 L ABG Carboxyhemoglobin 1.2 POC ABG HHb (Measured) 2.6 ABG Methemoglobin 0.5 Scar Test Na A-a O2 Difference 218.0 Respiratory Index 2.4 Hgb O2 Saturation 95.8 Vent Mode Cpap FiO2 50.0 Pressure Support 10 CPAP 5 Sodium 126 L Potassium 4.0 Chloride 95 L Carbon Dioxide 23 Anion Gap 12 BUN 56 H Creatinine 5.4 H Est GFR ( Amer) 13 Est GFR (Non-Af Amer) 10 Random Glucose 119 H Calcium 7.6 L Phosphorus 3.1 Magnesium 1.7 Total Bilirubin 0.7 AST 53 ALT 50 Alkaline Phosphatase 175 H Total Protein 5.7 L Albumin 2.3 L Globulin 3.4 Albumin/Globulin Ratio 0.7 L Critical Care Progress Note - Nutrition Nutrition: Nutrition Category Date Time Status Renal Diet [DIET] Diets 10/27/17 Breakfast Active Assessment/Plan (1) Bradycardia Current Visit: Yes Status: Acute Comment: secondary to third-degree heart block, status post temporary pacemaker insertion Cardiology and EPS evaluation Patient refusing hemodialysis Follow-up lites Neurology evaluation Continue antibiotics for VRE Attending/Attestation - Attestation I have personally seen and examined this patient.: Yes I have fully participated in the care of the patient.: Yes I have reviewed all pertinent clinical information: Yes Notes (Text): 11/09/17 16:19 I have seen and examined the patient. Medical records, lab studies, and imaging were reviewed by me and a management plan was formulated on multidisciplinary rounds with resident Dr. Brooks. I agree with their documented assessment and plan. The patient still has a lot of fluid overload with pulmonary edema. Dialyzing daily with aggressive fluid removal. left thoracentesis with pigtail placement performed by IR to day, with removal of 1.2L of fluid. Once patient's pulmonary edema is reduced and optimized will move toward extubation. Critical Care Time 35 minutes. Multi-disciplinary rounds were performed with house staff, nursing, speech therapy, respiratory therapy, pharmacy and nutrition with integrated input from the primary team/attending and other consulting services. The documented time is cumulative and includes review of patient data/exams/labs/chart review and examination of the patient on rounds and throughout the day; time is exclusive of any procedures or teaching time.
[2017-11-09 08:46] LABS: ALBUMIN 2.3 g/dL (3.5-5.0)
[2017-11-09 08:50] LABS: LYMPH # 0.3 K/uL (1.0-4.3); MONO # 0.1 K/uL (0.0-0.8); NEUT # 6.6 K/uL (1.8-7.0)
[2017-11-09 08:53] LABS: ANISOCYTOSIS SLIGHT; BANDS 7 % (0-2); HYPOCHROMIC SLIGHT; LYMPHOCYTE 2 % (20-40); MONOCYTE 1 % (0-10); NEUTROPHIL 90 % (50-75); NUCLEATED RED BLOOD CELL 1 % (0-0); PLATELET ESTIMATE NORMAL (NORMAL); POLYCHROMIC SLIGHT; TOTAL CELLS COUNTED 100; TOXIC GRANULATION PRESENT
[2017-11-09 08:54] LABS: LARGE PLATELETS PRESENT
[2017-11-09 09:07] LABS: ALB/GLOB RATIO 0.7 (1.0-2.1)
--- NOTE | 2017-11-09 09:22 | RAD ---
HISTORY: ff-up COMPARISON: Portable chest 11/08/2017. FINDINGS: Pacemaker again identified. Endotracheal tube and right center venous dialysis catheter unchanged in position. Stable nasogastric tube position. LUNGS: Right lower lobe and diffuse left pulmonary infiltrates are unchanged minimal right pleural effusion remaining at the right base laterally. Left pleural effusion is unchanged. Right sided pleural drainage catheter unchanged in position. Biapical pleural thickening again evident. No pneumothorax bilaterally. PLEURA: As above. CARDIOVASCULAR: Cardiac silhouette is stable, remaining prominent and partially obscured by above mentioned pulmonary findings. OSSEOUS STRUCTURES: No significant abnormalities. VISUALIZED UPPER ABDOMEN: Normal. OTHER FINDINGS: None. IMPRESSION: No interval change in bilateral pulmonary infiltrates greater the left and right minimal right pleural effusion remaining and potential [id number] left pleural effusion unchanged.
[2017-11-09] MEDS: Multivitamin Vitamin B Complex (Nephro-Vite) Tab PO SCH (09:38)
[2017-11-09 10:00] LABS: CALCIUM 7.6 mg/dl (8.6-10.4); MAGNESIUM 1.7 mg/dL (1.6-2.3)
[2017-11-09] MEDS: Epoetin Alfa 10,000 unit/ml Dialysis IV SCH ×2 (11:09→11:10)
[2017-11-09] MEDS ORDERED: Albumin Human 25% (12.5 gm/50 ml) IV ONE (11:15)
[2017-11-09] MEDS: Ferric Sodium Gluconat Complex 125 MG in Sodium Chloride 0.9% 100 ML IVPB SCH (11:16)
[2017-11-09] MEDS ORDERED: Vancomycin 1 GM in Sodium Chloride 0.9% 200 ML IVPB SCH (12:00)
--- NOTE | 2017-11-09 13:18 | CP.PCM.PN ---
Subjective - Date & Time of Evaluation Date of Evaluation: 11/09/17 Time of Evaluation: 13:17 - Subjective Subjective: REMAINS CRTICALLY STABLE ON LEVOPHED/ IV AB PER ID INTUBATED ON DIALYSIS D/W BROTHER Objective - Vital Signs/Intake and Output Vital Signs (last 24 hours): Temp Pulse Resp BP Pulse Ox 98.8 F 77 24 86/47 L 98 11/09/17 12:45 11/09/17 12:45 11/09/17 12:45 11/09/17 12:45 11/09/17 12:45 Intake and Output: 11/09/17 11/09/17 11:59 23:59 Intake Total 1652.7 185.6 Output Total 480 Balance 1172.7 185.6 - Medications Medications: Current Medications Acetaminophen (Tylenol 650mg/20.3ml Solution Ud) 650 mg PO Q4 PRN PRN Reason: Temperature Last Admin: 11/08/17 00:16 Dose: 650 mg Albuterol/Ipratropium (Duoneb 3 Mg/0.5 Mg (3 Ml) Ud) 3 ml INH RQ6 [facility] Amiodarone HCl (Cordarone) 200 mg PO BID [facility] Last Admin: 11/09/17 09:38 Dose: 200 mg Calcium Acetate (Phoslo) 1,334 mg PO TIDCC [facility] Last Admin: 11/09/17 12:03 Dose: 1,334 mg Enoxaparin Sodium (Lovenox) 40 mg SC DAILY [facility] Last Admin: 11/08/17 11:09 Dose: 40 mg Epoetin Pepe (Procrit) 10,000 unit IV MWF [facility] Last Admin: 11/09/17 11:10 Dose: 10,000 unit Ferric Sodium Gluconate Complex 125 mg/ Sodium Chloride 110 mls @ 110 mls/hr IVPB DAILY [facility] Stop: 11/13/17 14:31 Last Admin: 11/09/17 11:16 Dose: 110 mls/hr Cefepime HCl (Maxipime Iv 1 Gm Premix) 1 gm in 50 mls @ 100 mls/hr IVPB Q24H [facility] Last Admin: 11/08/17 18:00 Dose: 100 mls/hr Propofol (Diprivan) 1,000 mg in 100 mls @ 1.555 mls/hr IV .Q24H PRN; Protocol; 5 MCG/KG/MIN PRN Reason: TITRATE PER MD ORDER Last Admin: 11/08/17 09:26 Dose: 10 mcg/kg/min, 3.111 mls/hr Linezolid (Zyvox 600mg/300ml D5w) 600 mg in 300 mls @ 200 mls/hr IVPB Q12H [facility] Last Admin: 11/09/17 05:34 Dose: 200 mls/hr Norepinephrine Bitartrate 8 mg (/ Sodium Chloride) 508 mls @ 19.05 mls/hr IV .Q24H PRN; Protocol; 5 MCG/MIN PRN Reason: TITRATE PER MD ORDER Last Admin: 11/09/17 04:35 Dose: 12 mcg/min, 45.72 mls/hr Lactulose (Enulose) 20 gm PO HS PRN PRN Reason: Constipation Midodrine (Proamatine) 10 mg PO TID [facility] Last Admin: 11/09/17 09:38 Dose: 10 mg Pantoprazole Sodium (Protonix Inj) 40 mg IVP DAILY [facility] Last Admin: 11/08/17 11:09 Dose: 40 mg Tamsulosin HCl (Flomax) 0.4 mg PO DAILY [facility] Last Admin: 11/09/17 09:38 Dose: 0.4 mg Vitamin B Complex/Vit C/Folic Acid (Nephro-Aleksandra) 1 tab PO DAILY [facility] Last Admin: 11/09/17 09:38 Dose: 1 tab - Labs Labs: 11/09/17 06:52 11/09/17 06:52 PT 13.9 SECONDS (9.7-12.2) H 10/24/17 06:20 INR 1.2 10/24/17 06:20 APTT 57 SECONDS (21-34) H D 10/30/17 06:12
--- NOTE | 2017-11-09 13:42 | CP.PCM.PN ---
Subjective - Date & Time of Evaluation Date of Evaluation: 11/09/17 Time of Evaluation: 13:39 - Subjective Subjective: Remains on vent; alert, partially sedated Remains on hi dose levo CXR with CHF- will need extra UF attempts with HD On treatment for urosepsis Objective - Vital Signs/Intake and Output Vital Signs (last 24 hours): Temp Pulse Resp BP Pulse Ox 98.8 F 77 24 86/47 L 98 11/09/17 12:45 11/09/17 12:45 11/09/17 12:45 11/09/17 12:45 11/09/17 12:45 Intake and Output: 11/09/17 11/09/17 06:59 18:59 Intake Total 1495.2 783.6 Output Total 480 Balance 1495.2 303.6 - Medications Medications: Current Medications Acetaminophen (Tylenol 650mg/20.3ml Solution Ud) 650 mg PO Q4 PRN PRN Reason: Temperature Last Admin: 11/08/17 00:16 Dose: 650 mg Albuterol/Ipratropium (Duoneb 3 Mg/0.5 Mg (3 Ml) Ud) 3 ml INH RQ6 [facility] Amiodarone HCl (Cordarone) 200 mg PO BID [facility] Last Admin: 11/09/17 09:38 Dose: 200 mg Calcium Acetate (Phoslo) 1,334 mg PO TIDCC [facility] Last Admin: 11/09/17 12:03 Dose: 1,334 mg Enoxaparin Sodium (Lovenox) 40 mg SC DAILY [facility] Last Admin: 11/08/17 11:09 Dose: 40 mg Epoetin Pepe (Procrit) 10,000 unit IV MWF [facility] Last Admin: 11/09/17 11:10 Dose: 10,000 unit Ferric Sodium Gluconate Complex 125 mg/ Sodium Chloride 110 mls @ 110 mls/hr IVPB DAILY [facility] Stop: 11/13/17 14:31 Last Admin: 11/09/17 11:16 Dose: 110 mls/hr Cefepime HCl (Maxipime Iv 1 Gm Premix) 1 gm in 50 mls @ 100 mls/hr IVPB Q24H [facility] Last Admin: 11/08/17 18:00 Dose: 100 mls/hr Propofol (Diprivan) 1,000 mg in 100 mls @ 1.555 mls/hr IV .Q24H PRN; Protocol; 5 MCG/KG/MIN PRN Reason: TITRATE PER MD ORDER Last Admin: 11/08/17 09:26 Dose: 10 mcg/kg/min, 3.111 mls/hr Linezolid (Zyvox 600mg/300ml D5w) 600 mg in 300 mls @ 200 mls/hr IVPB Q12H [facility] Last Admin: 11/09/17 05:34 Dose: 200 mls/hr Norepinephrine Bitartrate 8 mg (/ Sodium Chloride) 508 mls @ 19.05 mls/hr IV .Q24H PRN; Protocol; 5 MCG/MIN PRN Reason: TITRATE PER MD ORDER Last Admin: 11/09/17 04:35 Dose: 12 mcg/min, 45.72 mls/hr Lactulose (Enulose) 20 gm PO HS PRN PRN Reason: Constipation Midodrine (Proamatine) 10 mg PO TID [facility] Last Admin: 11/09/17 09:38 Dose: 10 mg Pantoprazole Sodium (Protonix Inj) 40 mg IVP DAILY [facility] Last Admin: 11/08/17 11:09 Dose: 40 mg Tamsulosin HCl (Flomax) 0.4 mg PO DAILY [facility] Last Admin: 11/09/17 09:38 Dose: 0.4 mg Vitamin B Complex/Vit C/Folic Acid (Nephro-Aleksandra) 1 tab PO DAILY [facility] Last Admin: 11/09/17 09:38 Dose: 1 tab - Labs Labs: 11/09/17 06:52 11/09/17 06:52 PT 13.9 SECONDS (9.7-12.2) H 10/24/17 06:20 INR 1.2 10/24/17 06:20 APTT 57 SECONDS (21-34) H D 10/30/17 06:12 - Constitutional Appears: Chronically Ill - Head Exam Head Exam: ATRAUMATIC, NORMAL INSPECTION - Eye Exam Eye Exam: EOMI, Normal appearance - Neck Exam Neck Exam: Normal Inspection. absent: Tenderness - Respiratory Exam Respiratory Exam: Rhonchi, Respiratory Distress - Cardiovascular Exam Cardiovascular Exam: Tachycardia, Irregular Rhythm - GI/Abdominal Exam GI & Abdominal Exam: Soft. absent: Tenderness - Extremities Exam Extremities Exam: Normal Inspection. absent: Tenderness - Neurological Exam Neurological Exam: Awake, CN II-XII Intact - Skin Skin Exam: Dry, Warm Assessment and Plan (1) CKD (chronic kidney disease) stage 5, GFR less than 15 ml/min Status: Acute (2) Acute urinary retention Status: Acute (3) Obstructed Beck catheter Status: Acute (4) Cardiomyopathy Status: Acute (5) Hepatitis C antibody positive in blood Status: Acute (6) VRE (vancomycin resistant enterococcus) culture positive Status: Acute (7) ESRD (end stage renal disease) on dialysis Status: Acute (8) Hepatitis C antibody test positive Status: Acute (9) CHF (congestive heart failure) Status: Acute (10) Metabolic encephalopathy Status: Acute - Assessment and Plan (Free Text) Plan: Extra dialysis - today with increased UF goal and i n AM Cont rx for urosepsis pressor and vent management- ICU team stalin ch
[2017-11-09] MEDS: Enoxaparin 40 mg Syringe SC SCH (13:43)
--- NOTE | 2017-11-09 13:53 | CP.PCM.PN ---
Subjective - Date & Time of Evaluation Date of Evaluation: 11/09/17 Time of Evaluation: 08:00 - Subjective Subjective: less fever CT in place cont vent support, iv antibiotics and HD Objective - Vital Signs/Intake and Output Vital Signs (last 24 hours): Temp Pulse Resp BP Pulse Ox 98.8 F 77 24 86/47 L 98 11/09/17 12:45 11/09/17 12:45 11/09/17 12:45 11/09/17 12:45 11/09/17 12:45 Intake and Output: 11/09/17 11/09/17 06:59 18:59 Intake Total 1495.2 1094.6 Output Total 480 Balance 1495.2 614.6 - Medications Medications: Current Medications Acetaminophen (Tylenol 650mg/20.3ml Solution Ud) 650 mg PO Q4 PRN PRN Reason: Temperature Last Admin: 11/08/17 00:16 Dose: 650 mg Albuterol/Ipratropium (Duoneb 3 Mg/0.5 Mg (3 Ml) Ud) 3 ml INH RQ6 [facility] Amiodarone HCl (Cordarone) 200 mg PO BID [facility] Last Admin: 11/09/17 09:38 Dose: 200 mg Calcium Acetate (Phoslo) 1,334 mg PO TIDCC [facility] Last Admin: 11/09/17 12:03 Dose: 1,334 mg Enoxaparin Sodium (Lovenox) 40 mg SC DAILY [facility] Last Admin: 11/09/17 13:43 Dose: 40 mg Epoetin Pepe (Procrit) 10,000 unit IV MWF [facility] Last Admin: 11/09/17 11:10 Dose: 10,000 unit Ferric Sodium Gluconate Complex 125 mg/ Sodium Chloride 110 mls @ 110 mls/hr IVPB DAILY [facility] Stop: 11/13/17 14:31 Last Admin: 11/09/17 11:16 Dose: 110 mls/hr Cefepime HCl (Maxipime Iv 1 Gm Premix) 1 gm in 50 mls @ 100 mls/hr IVPB Q24H [facility] Last Admin: 11/08/17 18:00 Dose: 100 mls/hr Propofol (Diprivan) 1,000 mg in 100 mls @ 1.555 mls/hr IV .Q24H PRN; Protocol; 5 MCG/KG/MIN PRN Reason: TITRATE PER MD ORDER Last Admin: 11/08/17 09:26 Dose: 10 mcg/kg/min, 3.111 mls/hr Linezolid (Zyvox 600mg/300ml D5w) 600 mg in 300 mls @ 200 mls/hr IVPB Q12H [facility] Last Admin: 11/09/17 05:34 Dose: 200 mls/hr Norepinephrine Bitartrate 8 mg (/ Sodium Chloride) 508 mls @ 19.05 mls/hr IV .Q24H PRN; Protocol; 5 MCG/MIN PRN Reason: TITRATE PER MD ORDER Last Titration: 11/09/17 11:20 Dose: 13.77 mcg/min, 52.5 mls/hr Lactulose (Enulose) 20 gm PO HS PRN PRN Reason: Constipation Midodrine (Proamatine) 10 mg PO TID [facility] Last Admin: 11/09/17 13:43 Dose: 10 mg Pantoprazole Sodium (Protonix Inj) 40 mg IVP DAILY [facility] Last Admin: 11/09/17 13:43 Dose: 40 mg Tamsulosin HCl (Flomax) 0.4 mg PO DAILY [facility] Last Admin: 11/09/17 09:38 Dose: 0.4 mg Vitamin B Complex/Vit C/Folic Acid (Nephro-Aleksandra) 1 tab PO DAILY [facility] Last Admin: 11/09/17 09:38 Dose: 1 tab - Labs Labs: 11/09/17 06:52 11/09/17 06:52 PT 13.9 SECONDS (9.7-12.2) H 10/24/17 06:20 INR 1.2 10/24/17 06:20 APTT 57 SECONDS (21-34) H D 10/30/17 06:12 - Constitutional Appears: Cachectic, Chronically Ill - Head Exam Head Exam: NORMOCEPHALIC - Eye Exam Eye Exam: PERRL. absent: Scleral icterus Pupil Exam: NORMAL ACCOMODATION - ENT Exam ENT Exam: Mucous Membranes Dry, Normal External Ear Exam - Neck Exam Neck Exam: absent: Lymphadenopathy - Respiratory Exam Respiratory Exam: Decreased Breath Sounds, Rhonchi - Cardiovascular Exam Cardiovascular Exam: REGULAR RHYTHM - GI/Abdominal Exam GI & Abdominal Exam: Distended, Soft - Rectal Exam Rectal Exam: Deferred - Exam Exam: NORMAL INSPECTION - Extremities Exam Extremities Exam: absent: Pedal Edema - Back Exam Back Exam: absent: CVA tenderness (L), CVA tenderness (R) - Neurological Exam Neurological Exam: Altered - Psychiatric Exam Psychiatric exam: Normal Mood - Skin Skin Exam: Dry Assessment and Plan - Assessment and Plan (Free Text) Assessment: cont rx for possible VRE / Pseudomonas sepsis poor prognosis
--- NOTE | 2017-11-09 14:52 | PCM.SURG1 ---
Surgeon's Initial Post Op Note - Surgeon's Notes Surgeon: Momo English MD Grain Blender: None Type of Anesthesia: Local Pre-Operative Diagnosis: Left pleural effusion Operative Findings: US showed a moderate left effusion Post-Operative Diagnosis: Left pleural effusion Operation Performed: US guided left thoracentesis. Left chest tube 8fr placement. Specimen/Specimens Removed: 1200 cc of slight serosanguinous fluid Estimated Blood Loss: EBL {In ML}: 1 Blood Products Given: N/A Drains Used: No Drains Post-Op Condition: Fair Date of Surgery/Procedure: 11/09/17 Time of Surgery/Procedure: 14:45
--- NOTE | 2017-11-09 15:54 | RAD ---
HISTORY: thora r/o pnemothorax COMPARISON: Chest radiograph performed approximately 7.5 hours prior. FINDINGS: LUNGS: Stable right lower lobe atelectasis and left lung patchy atelectatic/ consolidative changes. PLEURA: Large left pneumothorax. Small right pleural effusion. CARDIOVASCULAR: Left subclavian access pacemaker redemonstrated Atherosclerotic aortic calcifications. Cardiomediastinal silhouette stably enlarged. OSSEOUS STRUCTURES: No significant abnormalities. VISUALIZED UPPER ABDOMEN: Normal. OTHER FINDINGS: Endotracheal, enteric tubes, unchanged. Right basilar pigtail chest tube, unchanged. Right internal jugular access tunneled hemodialysis catheter, unchanged. Left internal jugular access central venous catheter, unchanged. IMPRESSION: New large left pneumothorax. At the time of this dictation, a more recent chest radiograph had already been performed.
--- NOTE | 2017-11-09 16:37 | RAD ---
HISTORY: chest tube COMPARISON: Multiple serial examinations preceding the most recent study: [id number]. 14:27 FINDINGS: LUNGS: Incomplete re-expansion of the left lung. Persistent right lower lobe infiltrate. PLEURA: Pigtail catheter identified in the left pleural space. Small apical and basilar pneumothorax identified. CARDIOVASCULAR: No significant interval change compared to the prior examination(s). OSSEOUS STRUCTURES: No significant abnormalities. VISUALIZED UPPER ABDOMEN: Normal. OTHER FINDINGS: Stable, satisfactory position ventilatory, vascular and nasogastric apparatus. IMPRESSION: Improved aeration of the nearly completely re-expanded left lung. Pigtail catheter in the left pleural space, small pneumothorax again identified on the left.
[2017-11-09] MEDS ORDERED: Acetaminophen 650mg/20.3ml solution UD PO STA (16:50)
[2017-11-09] MEDS: Propofol 10 mg/ml 1,000 MG/100 ML VIAL IV PRN (17:00)
[2017-11-09] MEDS: Cefepime IV 1 gm in Dextrose 1 GM/50 ML BAG IVPB SCH (18:55)
[2017-11-09] MEDS: SODIUM CHLORIDE 0.9% IV PRN (22:58)
[2017-11-09] MEDS: NOREPINEPHRINE IV PRN (22:58)
[2017-11-10] MEDS: Albuterol-Ipratrop 3 mg / 0.5 (3 ml) UD INH SCH ×5 (02:59→20:06)
[2017-11-10 05:36] LABS: AMYLASE PLEURAL FLUID 23 U/L
[2017-11-10] MEDS: Linezolid 600 mg in D5W 300 ml 600 MG/300 ML BAG IVPB SCH ×2 (05:41→17:32)
[2017-11-10 06:51] LABS: BASO % 0.1 % (0.0-2.0); HEMOGLOBIN 10.3 g/dL (12.0-18.0); LYMPH # 0.2 K/uL (1.0-4.3); LYMPH % 3.8 % (20.0-40.0); MEAN CELL VOLUME 95.9 fL (80.0-94.0); MEAN CORPUSCULAR HEMOGLOBIN 30.4 pg (27.0-31.0); MEAN CORPUSCULAR HGB CONC 31.7 g/dL (33.0-37.0); MEAN PLATELET VOLUME 11.3 fL (7.2-11.7); MONO # 0.1 K/uL (0.0-0.8); MONO % 2.5 % (0.0-10.0); NEUT # 5.5 K/uL (1.8-7.0); NEUT % 93.6 % (50.0-75.0); NRBC % 0.1 % (0.0-2.0); PLATELET COUNT 81 K/uL (130-400); RED CELL DISTRIBUTION WIDTH 19.5 % (11.5-14.5); WHITE BLOOD COUNT 5.8 K/uL (4.8-10.8)
[2017-11-10 06:58] LABS: ABG ALLEN TEST POS; ARTERIAL BLOOD GAS HEMOGLOBIN 10.5 g/dL (11.7-17.4); ARTERIAL BLOOD GAS O2 SAT 96.8 % (95-98); ARTERIAL BLOOD GAS PCO2 43 mm/Hg (35-45); ARTERIAL BLOOD GAS PH 7.38 (7.35-7.45); ARTERIAL BLOOD GAS PO2 75 mm/Hg (80-100); ARTERIAL BLOOD GAS TCO2 26.7 mmol/L (22-28)
[2017-11-10 07:10] LABS: ALB/GLOB RATIO 0.7 (1.0-2.1); ALBUMIN 2.3 g/dL (3.5-5.0); CALCIUM 7.6 mg/dl (8.6-10.4)
--- NOTE | 2017-11-10 08:58 | CP.PCM.PN ---
Subjective - Date & Time of Evaluation Date of Evaluation: 11/10/17 Time of Evaluation: 09:00 - Subjective Subjective: remains hyponatremic dialysis last PM removed about 2 liters thoracentasis removed about 1300cc,developed pneumothorax and required left chest tube remains intubated and sedate ROS intubated and sedate,unable to obtain Objective - Vital Signs/Intake and Output Vital Signs (last 24 hours): Temp Pulse Resp BP Pulse Ox 98.9 F 59 L 28 H 95/44 L 94 L 11/10/17 04:00 11/10/17 07:07 11/10/17 07:07 11/10/17 07:07 11/10/17 07:07 Intake and Output: 11/10/17 11/10/17 06:59 18:59 Intake Total 1515.8 112.1 Output Total 138 Balance 1377.8 112.1 - Medications Medications: Current Medications Acetaminophen (Tylenol 650mg/20.3ml Solution Ud) 650 mg PO Q4 PRN PRN Reason: Temperature Last Admin: 11/08/17 00:16 Dose: 650 mg Albuterol/Ipratropium (Duoneb 3 Mg/0.5 Mg (3 Ml) Ud) 3 ml INH RQ6 [facility] Last Admin: 11/10/17 07:57 Dose: Not Given Amiodarone HCl (Cordarone) 200 mg PO BID [facility] Last Admin: 11/09/17 17:08 Dose: 200 mg Calcium Acetate (Phoslo) 1,334 mg PO TIDCC [facility] Last Admin: 11/10/17 08:05 Dose: 1,334 mg Enoxaparin Sodium (Lovenox) 40 mg SC DAILY [facility] Last Admin: 11/09/17 13:43 Dose: 40 mg Epoetin Pepe (Procrit) 10,000 unit IV MWF [facility] Last Admin: 11/09/17 11:10 Dose: 10,000 unit Ferric Sodium Gluconate Complex 125 mg/ Sodium Chloride 110 mls @ 110 mls/hr IVPB DAILY [facility] Stop: 11/13/17 14:31 Last Admin: 11/09/17 11:16 Dose: 110 mls/hr Cefepime HCl (Maxipime Iv 1 Gm Premix) 1 gm in 50 mls @ 100 mls/hr IVPB Q24H [facility] Last Admin: 11/09/17 18:55 Dose: 100 mls/hr Propofol (Diprivan) 1,000 mg in 100 mls @ 1.555 mls/hr IV .Q24H PRN; Protocol; 5 MCG/KG/MIN PRN Reason: TITRATE PER MD ORDER Last Titration: 11/10/17 03:00 Dose: 14.78 mcg/kg/min, 4.6 mls/hr Linezolid (Zyvox 600mg/300ml D5w) 600 mg in 300 mls @ 200 mls/hr IVPB Q12H [facility] Last Admin: 11/10/17 05:41 Dose: 200 mls/hr Norepinephrine Bitartrate 16 (mg/ Sodium Chloride) 1,000 mls @ 18.75 mls/hr IV .Q24H PRN; Protocol; 5 MCG/MIN PRN Reason: TITRATE PER MD ORDER Last Titration: 11/10/17 06:00 Dose: 18 mcg/min, 67.5 mls/hr Lactulose (Enulose) 20 gm PO HS PRN PRN Reason: Constipation Midodrine (Proamatine) 10 mg PO TID [facility] Last Admin: 11/09/17 17:08 Dose: 10 mg Pantoprazole Sodium (Protonix Inj) 40 mg IVP DAILY [facility] Last Admin: 11/09/17 13:43 Dose: 40 mg Tamsulosin HCl (Flomax) 0.4 mg PO DAILY [facility] Last Admin: 11/09/17 09:38 Dose: 0.4 mg Vitamin B Complex/Vit C/Folic Acid (Nephro-Aleksandra) 1 tab PO DAILY [facility] Last Admin: 11/09/17 09:38 Dose: 1 tab - Labs Labs: 11/10/17 06:39 11/10/17 06:39 PT 13.9 SECONDS (9.7-12.2) H 10/24/17 06:20 INR 1.2 10/24/17 06:20 APTT 57 SECONDS (21-34) H D 10/30/17 06:12 - Constitutional Appears: No Acute Distress - Head Exam Additional comments: intubated sedated enteral feeding in progress - Respiratory Exam Respiratory Exam: Clear to Ausculation Bilateral Additional comments: coarse sounds left chest tube in place - Cardiovascular Exam Cardiovascular Exam: REGULAR RHYTHM - GI/Abdominal Exam GI & Abdominal Exam: Soft. absent: Distended, Tenderness - Extremities Exam Extremities Exam: absent: Calf Tenderness Additional comments: no leg edema Assessment and Plan (1) Benign prostatic hyperplasia Status: Acute (2) ESRD (end stage renal disease) on dialysis Status: Acute (3) Hepatitis C antibody test positive Status: Acute (4) Cardiomyopathy Status: Acute (5) Urinary retention due to benign prostatic hyperplasia Status: Acute - Assessment and Plan (Free Text) Plan: schedule dialysis again today with ultrafiltration continue supportive care
[2017-11-10] MEDS: Propofol 10 mg/ml 1,000 MG/100 ML VIAL IV PRN ×2 (09:08→20:09)
--- NOTE | 2017-11-10 09:36 | RAD ---
HISTORY: Follow up on pulmonary infiltrate COMPARISON: 11/09/2017 FINDINGS: LUNGS: Extensive left-sided pulmonary infiltrate, unchanged. Right basilar pulmonary infiltrate, unchanged. PLEURA: Small bilateral pleural effusion. Small left pneumothorax slightly increased from prior. No right pneumothorax. . Right apical chest tube, new since prior examination. CARDIOVASCULAR: Normal heart size. No congestive change. Right tunneled central venous dialysis catheter. Endotracheal tube and nasogastric tube unchanged. Permanent pacemaker. Left internal jugular multi lumen central venous catheter. Pigtail catheter at left lung base, unchanged. OSSEOUS STRUCTURES: No significant abnormalities. VISUALIZED UPPER ABDOMEN: Normal. OTHER FINDINGS: None. IMPRESSION: Slight increase in left apical pneumothorax compared to prior examination. Left basilar pigtail pleural catheter unchanged. Bilateral infiltrates unchanged. For lines and tubes unchanged. Small bilateral pleural effusion noted. Findings discussed by telephone with the patient's nurseLuz, at 9:20 T7 a.m. on 11/10/2017.
[2017-11-10 10:08] LABS: BANDS 4 % (0-2); LYMPHOCYTE 4 % (20-40); MONOCYTE 2 % (0-10); NEUTROPHIL 89 % (50-75); REACTIVE LYMPHOCYTES 1 % (0-0); TOTAL CELLS COUNTED 100
[2017-11-10 10:09] LABS: PLATELET ESTIMATE DECREASED (NORMAL)
[2017-11-10 10:10] LABS: ANISOCYTOSIS SLIGHT; HYPOCHROMIC SLIGHT; OVALOCYTES SLIGHT; POIKILOCYTOSIS SLIGHT; POLYCHROMIC SLIGHT; TEARDROP CELLS SLIGHT
[2017-11-10 10:11] LABS: LARGE PLATELETS PRESENT; SCHISTOCYTES SLIGHT; TARGET CELLS SLIGHT
[2017-11-10] MEDS: Multivitamin Vitamin B Complex (Nephro-Vite) Tab PO SCH (11:03)
[2017-11-10] MEDS ORDERED: Midazolam 2 MG/2 ML VIAL IVP ONE ×2 (12:01→15:15)
[2017-11-10] MEDS: Enoxaparin 40 mg Syringe SC SCH (12:38)
[2017-11-10] MEDS: Ferric Sodium Gluconat Complex 125 MG in Sodium Chloride 0.9% 100 ML IVPB SCH (13:11)
--- NOTE | 2017-11-10 14:39 | CP.PCM.PN ---
Subjective - Date & Time of Evaluation Date of Evaluation: 11/10/17 Time of Evaluation: 14:37 - Subjective Subjective: INTUBATED ON DIALYSIS ON LEVOPHED TO KEEP SYSTOLIC BP 100 IV AB PER ID PNEUMOTHORAX , CT PLACED FLUID OVELOAD S. LEILANI , PACEMAKER NOT SENSING , EP NOTIFIED Objective - Vital Signs/Intake and Output Vital Signs (last 24 hours): Temp Pulse Resp BP Pulse Ox 98.5 F 70 32 H 115/40 L 95 11/10/17 12:25 11/10/17 12:25 11/10/17 12:25 11/10/17 12:25 11/10/17 12:25 Intake and Output: 11/10/17 11/10/17 11:59 23:59 Intake Total 1236.7 Output Total 138 Balance 1098.7 - Medications Medications: Current Medications Acetaminophen (Tylenol 650mg/20.3ml Solution Ud) 650 mg PO Q4 PRN PRN Reason: Temperature Last Admin: 11/08/17 00:16 Dose: 650 mg Albuterol/Ipratropium (Duoneb 3 Mg/0.5 Mg (3 Ml) Ud) 3 ml INH RQ6 [facility] Last Admin: 11/10/17 13:26 Dose: 3 ml Amiodarone HCl (Cordarone) 200 mg PO BID [facility] Last Admin: 11/10/17 11:04 Dose: 200 mg Calcium Acetate (Phoslo) 1,334 mg PO TIDCC [facility] Last Admin: 11/10/17 12:38 Dose: 1,334 mg Enoxaparin Sodium (Lovenox) 40 mg SC DAILY [facility] Last Admin: 11/10/17 12:38 Dose: 40 mg Epoetin Pepe (Procrit) 10,000 unit IV MWF [facility] Last Admin: 11/09/17 11:10 Dose: 10,000 unit Ferric Sodium Gluconate Complex 125 mg/ Sodium Chloride 110 mls @ 110 mls/hr IVPB DAILY [facility] Stop: 11/13/17 14:31 Last Admin: 11/10/17 13:11 Dose: 110 mls/hr Cefepime HCl (Maxipime Iv 1 Gm Premix) 1 gm in 50 mls @ 100 mls/hr IVPB Q24H [facility] Last Admin: 11/09/17 18:55 Dose: 100 mls/hr Propofol (Diprivan) 1,000 mg in 100 mls @ 1.555 mls/hr IV .Q24H PRN; Protocol; 5 MCG/KG/MIN PRN Reason: TITRATE PER MD ORDER Last Titration: 11/10/17 11:00 Dose: 29.89 mcg/kg/min, 9.3 mls/hr Linezolid (Zyvox 600mg/300ml D5w) 600 mg in 300 mls @ 200 mls/hr IVPB Q12H [facility] Last Admin: 11/10/17 05:41 Dose: 200 mls/hr Norepinephrine Bitartrate 16 (mg/ Sodium Chloride) 1,000 mls @ 18.75 mls/hr IV .Q24H PRN; Protocol; 5 MCG/MIN PRN Reason: TITRATE PER MD ORDER Last Titration: 11/10/17 06:00 Dose: 18 mcg/min, 67.5 mls/hr Lactulose (Enulose) 20 gm PO HS PRN PRN Reason: Constipation Midodrine (Proamatine) 10 mg PO TID [facility] Last Admin: 11/10/17 13:18 Dose: 10 mg Pantoprazole Sodium (Protonix Inj) 40 mg IVP DAILY [facility] Last Admin: 11/10/17 12:38 Dose: 40 mg Vitamin B Complex/Vit C/Folic Acid (Nephro-Aleksandra) 1 tab PO DAILY [facility] Last Admin: 11/10/17 11:03 Dose: 1 tab - Labs Labs: 11/10/17 06:39 11/10/17 06:39 PT 13.9 SECONDS (9.7-12.2) H 10/24/17 06:20 INR 1.2 10/24/17 06:20 APTT 57 SECONDS (21-34) H D 10/30/17 06:12
--- NOTE | 2017-11-10 15:04 | CP.CCUPN ---
CCU Subjective - Physician Review Events Since Last Encounter (Free Text): 11/10/17 14:57 Patient is alert on vent, complains of tube down his throat, wants to be extubated. CCU Objective - Vital Signs / Intake & Output Vital Signs (Last 4 hours): Vital Signs Temp Pulse Pulse Resp BP BP Pulse Ox 11/10/17 14:32 59 L 28 H 90/40 L 98 11/10/17 14:02 53 L 18 91/35 L 97 11/10/17 13:33 98 H 18 101/61 93 L 11/10/17 13:23 81 31 H 124/37 L 97 11/10/17 13:02 47 L 21 137/100 H 97 11/10/17 12:43 47 L 29 H 115/36 L 97 11/10/17 12:32 47 L 18 115/40 L 92 L 11/10/17 12:27 47 L 32 H 207/179 H 92 L 11/10/17 12:25 98.5 F 70 32 H 115/40 L 95 11/10/17 12:13 46 L 29 H 100/40 L 90 L 11/10/17 12:10 100/40 L 11/10/17 12:02 46 L 35 H 100/36 L 11/10/17 12:00 99.6 F 46 L 34 H 11/10/17 11:58 46 L 35 H 95/36 L 11/10/17 11:55 95/36 L 11/10/17 11:45 46 L 36 H 95/33 L 11/10/17 11:40 95/33 L 11/10/17 11:32 47 L 36 H 101/39 L 11/10/17 11:30 47 L 34 H 103/36 L 11/10/17 11:25 103/36 L 11/10/17 11:11 47 L 33 H 99/36 L 11/10/17 11:10 99/36 L 11/10/17 11:05 47 L 22 90/31 L 11/10/17 10:58 47 L 29 H 107/41 L 93 L Intake and Output (Last 8hrs): Intake & Output 11/09/17 11/10/17 11/10/17 22:59 06:59 14:59 Intake Total 1549.5 968.6 392.4 Output Total 365 138 Balance 1184.5 830.6 392.4 Weight 111 lb 6.4 oz Intake: IV 108.2 50 58.2 Intake, IV Amount 1021.3 598.6 144.2 Left Distal Port 350 Left Medial Port 600 547.7 135.0 Left Proximal Port 71.3 50.9 9.2 Tube Feeding 320 320 90 Other 100 100 Output: Chest Tube Drainage 365 138 Left Anterior Chest 25 8 Right Mid-Axillary Chest 340 130 Other: # Bowel Movements 1 0 - Physical Exam Head: Positive for: Atraumatic, Normocephalic Extroacular Muscles: Positive for: EOMI. Negative for: Gaze Palsy Conjunctiva: Positive for: Normal Mouth: Positive for: Moist Mucous Membranes, Normal Lips Neck: Positive for: Normal Range of Motion, Other (L IJ) Respiratory/Chest: Positive for: Clear to Auscultation, Other (intubated) Cardiovascular: Positive for: Regular Rate and Rhythm Abdomen: Positive for: Normal Bowel Sounds Upper Extremity: Positive for: Normal Inspection, Capillary Refill < 2s. Negative for: Edema Lower Extremity: Positive for: Normal Inspection, Capillary Refill < 2 s. Negative for: Edema Psychiatric: Positive for: Alert, Oriented x 3 - Medications Active Medications: Active Medications Generic Name Dose Route Start Last Admin Trade Name Freq PRN Reason Stop Dose Admin Acetaminophen 650 mg 11/06/17 23:47 11/08/17 00:16 Tylenol 650mg/20.3ml Solution Ud PO 650 mg Q4 PRN Administration Temperature Albuterol/Ipratropium 3 ml 11/09/17 14:00 11/10/17 13:26 Duoneb 3 Mg/0.5 Mg (3 Ml) Ud INH 3 ml RQ6 TANI Administration Amiodarone HCl 200 mg 11/05/17 17:17 11/10/17 11:04 Cordarone PO 200 mg BID TANI Administration Calcium Acetate 1,334 mg 10/27/17 09:29 11/10/17 12:38 Phoslo PO 1,334 mg TIDCC TANI Administration Enoxaparin Sodium 40 mg 11/08/17 10:30 11/10/17 12:38 Lovenox SC 40 mg DAILY TANI Administration Epoetin Pepe 10,000 unit 10/22/17 14:30 11/09/17 11:10 Procrit IV 10,000 unit MWF TANI Administration Ferric Sodium Gluconate 110 mls @ 110 mls/hr 11/05/17 14:30 11/10/17 13:11 Complex 125 mg/ Sodium IVPB 11/13/17 14:31 110 mls/hr Chloride DAILY TANI Administration Cefepime HCl 1 gm in 50 mls @ 100 mls/hr 11/05/17 19:00 11/09/17 18:55 Maxipime Iv 1 Gm Premix IVPB 100 mls/hr Q24H TANI Administration Propofol 1,000 mg in 100 mls @ 1.555 mls/hr 11/05/17 18:43 11/10/17 11:00 Diprivan IV 29.89 mcg/kg/min .Q24H PRN 9.3 mls/hr TITRATE PER MD ORDER Titration Protocol 5 MCG/KG/MIN Linezolid 600 mg in 300 mls @ 200 mls/hr 11/07/17 18:00 11/10/17 05:41 Zyvox 600mg/300ml D5w IVPB 200 mls/hr Q12H TANI Administration Norepinephrine Bitartrate 16 1,000 mls @ 18.75 mls/hr 11/09/17 23:00 06:00 mg/ Sodium Chloride IV 18 mcg/min .Q24H PRN 67.5 mls/hr TITRATE PER MD ORDER Titration Protocol 5 MCG/MIN Lactulose 20 gm 10/29/17 22:00 Enulose PO HS PRN Constipation Midodrine 10 mg 10/26/17 08:33 11/10/17 13:18 Proamatine PO 10 mg TID TANI Administration Pantoprazole Sodium 40 mg 11/08/17 10:30 11/10/17 12:38 Protonix Inj IVP 40 mg DAILY TANI Administration Vitamin B Complex/Vit C/Folic Acid 1 tab 10/12/17 10:00 11/10/17 11:03 Nephro-Aleksandra PO 1 tab DAILY TANI Administration - Patient Studies Lab Studies: Microbiology Studies 11/07/17 14:45 Gram Stain - Final Pleural Fluid Body Fluid Culture - Preliminary NO GROWTH AFTER 3 DAYS 11/05/17 18:00 Blood Culture - Preliminary Blood-Venous NO GROWTH AFTER 4 DAYS 11/05/17 18:00 Blood Culture - Preliminary Blood-Venous NO GROWTH AFTER 4 DAYS 11/07/17 15:06 Mycobacterial Culture - Preliminary Other: Please Indicate Lab Studies 11/10/17 11/10/17 11/10/17 Range/Units 06:39 06:39 05:25 WBC 5.8 (4.8-10.8) K/uL RBC 3.40 L (4.40-5.90) Mil/uL Hgb 10.3 L (12.0-18.0) g/dL Hct 32.6 L (35.0-51.0) % MCV 95.9 H (80.0-94.0) fL MCH 30.4 (27.0-31.0) pg MCHC 31.7 L (33.0-37.0) g/dL RDW 19.5 H (11.5-14.5) % Plt Count 81 L (130-400) K/uL MPV 11.3 (7.2-11.7) fL Neut % (Auto) 93.6 H (50.0-75.0) % Lymph % (Auto) 3.8 L (20.0-40.0) % Mcnairy % (Auto) 2.5 (0.0-10.0) % Eos % (Auto) 0.0 (0.0-4.0) % Baso % (Auto) 0.1 (0.0-2.0) % Neut # 5.5 (1.8-7.0) K/uL Lymph # 0.2 L (1.0-4.3) K/uL Mcnairy # 0.1 (0.0-0.8) K/uL Eos # 0.0 (0.0-0.7) K/uL Baso # 0.0 (0.0-0.2) K/uL Neutrophils % (Manual) 89 H (50-75) % Band Neutrophils % 4 H (0-2) % Lymphocytes % (Manual) 4 L (20-40) % Reactive Lymphs % 1 H (0-0) % Monocytes % (Manual) 2 (0-10) % Platelet Estimate Decreased L (NORMAL) Large Platelets Present Polychromasia Slight Hypochromasia (manual) Slight Poikilocytosis (manual Slight Anisocytosis (manual) Slight Macrocytosis (manual) Slight Target Cells Slight Tear Drop Cells Slight Ovalocytes Slight Schistocytes Slight Puncture Site Rr pCO2 43 (35-45) mm/Hg pO2 75 L (80-100) mm/Hg HCO3 25.0 (21-28) mmol/L ABG pH 7.38 (7.35-7.45) ABG Total CO2 26.7 (22-28) mmol/L ABG O2 Saturation 96.8 (95-98) % ABG Base Excess 0.1 (-2.0-3.0) mmol/L ABG Hemoglobin 10.5 L (11.7-17.4) g/dL ABG Carboxyhemoglobin 1.7 H (0.5-1.5) % POC ABG HHb (Measured) 3.1 (0.0-5.0) % ABG Methemoglobin 1.0 (0.0-3.0) % Scar Test Pos A-a O2 Difference 228.0 mm/Hg Respiratory Index 3.0 Hgb O2 Saturation 94.2 L (95.0-98.0) % Vent Mode Prvc Mechanical Rate 18 FiO2 50.0 % Tidal Volume 400 PEEP 5 Sodium 129 L (132-148) mmol/L Potassium 3.8 (3.6-5.2) mmol/L Chloride 97 L (98-107) mmol/L Carbon Dioxide 27 (22-30) mmol/L Anion Gap 10 (10-20) BUN 36 H (9-20) mg/dL Creatinine 4.3 H (0.8-1.5) mg/dL Est GFR ( Amer) 16 Est GFR (Non-Af Amer) 13 Random Glucose 76 (75-110) mg/dL Calcium 7.6 L (8.6-10.4) mg/dl Total Bilirubin 1.5 H (0.2-1.3) mg/dL AST 67 H D (17-59) U/L ALT 47 (21-72) U/L Alkaline Phosphatase 206 H (38-126) U/L Total Protein 5.6 L (6.3-8.3) g/dL Albumin 2.3 L (3.5-5.0) g/dL Globulin 3.3 (2.2-3.9) gm/dL Albumin/Globulin Ratio 0.7 L (1.0-2.1) Pleural Amylase U/L 11/07/17 Range/Units 15:53 WBC (4.8-10.8) K/uL RBC (4.40-5.90) Mil/uL Hgb (12.0-18.0) g/dL Hct (35.0-51.0) % MCV (80.0-94.0) fL MCH (27.0-31.0) pg MCHC (33.0-37.0) g/dL RDW (11.5-14.5) % Plt Count (130-400) K/uL MPV (7.2-11.7) fL Neut % (Auto) (50.0-75.0) % Lymph % (Auto) (20.0-40.0) % Mcnairy % (Auto) (0.0-10.0) % Eos % (Auto) (0.0-4.0) % Baso % (Auto) (0.0-2.0) % Neut # (1.8-7.0) K/uL Lymph # (1.0-4.3) K/uL Mcnairy # (0.0-0.8) K/uL Eos # (0.0-0.7) K/uL Baso # (0.0-0.2) K/uL Neutrophils % (Manual) (50-75) % Band Neutrophils % (0-2) % Lymphocytes % (Manual) (20-40) % Reactive Lymphs % (0-0) % Monocytes % (Manual) (0-10) % Platelet Estimate (NORMAL) Large Platelets Polychromasia Hypochromasia (manual) Poikilocytosis (manual Anisocytosis (manual) Macrocytosis (manual) Target Cells Tear Drop Cells Ovalocytes Schistocytes Puncture Site pCO2 (35-45) mm/Hg pO2 (80-100) mm/Hg HCO3 (21-28) mmol/L ABG pH (7.35-7.45) ABG Total CO2 (22-28) mmol/L ABG O2 Saturation (95-98) % ABG Base Excess (-2.0-3.0) mmol/L ABG Hemoglobin (11.7-17.4) g/dL ABG Carboxyhemoglobin (0.5-1.5) % POC ABG HHb (Measured) (0.0-5.0) % ABG Methemoglobin (0.0-3.0) % Scar Test A-a O2 Difference mm/Hg Respiratory Index Hgb O2 Saturation (95.0-98.0) % Vent Mode Mechanical Rate FiO2 % Tidal Volume PEEP Sodium (132-148) mmol/L Potassium (3.6-5.2) mmol/L Chloride (98-107) mmol/L Carbon Dioxide (22-30) mmol/L Anion Gap (10-20) BUN (9-20) mg/dL Creatinine (0.8-1.5) mg/dL Est GFR ( Amer) Est GFR (Non-Af Amer) Random Glucose (75-110) mg/dL Calcium (8.6-10.4) mg/dl Total Bilirubin (0.2-1.3) mg/dL AST (17-59) U/L ALT (21-72) U/L Alkaline Phosphatase (38-126) U/L Total Protein (6.3-8.3) g/dL Albumin (3.5-5.0) g/dL Globulin (2.2-3.9) gm/dL Albumin/Globulin Ratio (1.0-2.1) Pleural Amylase 23 U/L Laboratory Results - last 24 hr 11/07/17 11/10/17 11/10/17 15:53 05:25 06:39 WBC 5.8 RBC 3.40 L Hgb 10.3 L Hct 32.6 L MCV 95.9 H MCH 30.4 MCHC 31.7 L RDW 19.5 H Plt Count 81 L MPV 11.3 Neut % (Auto) 93.6 H Lymph % (Auto) 3.8 L Mcnairy % (Auto) 2.5 Eos % (Auto) 0.0 Baso % (Auto) 0.1 Neut # 5.5 Lymph # 0.2 L Mcnairy # 0.1 Eos # 0.0 Baso # 0.0 Neutrophils % (Manual) 89 H Band Neutrophils % 4 H Lymphocytes % (Manual) 4 L Reactive Lymphs % 1 H Monocytes % (Manual) 2 Platelet Estimate Decreased L Large Platelets Present Polychromasia Slight Hypochromasia (manual) Slight Poikilocytosis (manual Slight Anisocytosis (manual) Slight Macrocytosis (manual) Slight Target Cells Slight Tear Drop Cells Slight Ovalocytes Slight Schistocytes Slight Puncture Site Rr pCO2 43 pO2 75 L HCO3 25.0 ABG pH 7.38 ABG Total CO2 26.7 ABG O2 Saturation 96.8 ABG Base Excess 0.1 ABG Hemoglobin 10.5 L ABG Carboxyhemoglobin 1.7 H POC ABG HHb (Measured) 3.1 ABG Methemoglobin 1.0 Scar Test Pos A-a O2 Difference 228.0 Respiratory Index 3.0 Hgb O2 Saturation 94.2 L Vent Mode Prvc Mechanical Rate 18 FiO2 50.0 Tidal Volume 400 PEEP 5 Sodium Potassium Chloride Carbon Dioxide Anion Gap BUN Creatinine Est GFR ( Amer) Est GFR (Non-Af Amer) Random Glucose Calcium Total Bilirubin AST ALT Alkaline Phosphatase Total Protein Albumin Globulin Albumin/Globulin Ratio Pleural Amylase 23 11/10/17 06:39 WBC RBC Hgb Hct MCV MCH MCHC RDW Plt Count MPV Neut % (Auto) Lymph % (Auto) Mcnairy % (Auto) Eos % (Auto) Baso % (Auto) Neut # Lymph # Mcnairy # Eos # Baso # Neutrophils % (Manual) Band Neutrophils % Lymphocytes % (Manual) Reactive Lymphs % Monocytes % (Manual) Platelet Estimate Large Platelets Polychromasia Hypochromasia (manual) Poikilocytosis (manual Anisocytosis (manual) Macrocytosis (manual) Target Cells Tear Drop Cells Ovalocytes Schistocytes Puncture Site pCO2 pO2 HCO3 ABG pH ABG Total CO2 ABG O2 Saturation ABG Base Excess ABG Hemoglobin ABG Carboxyhemoglobin POC ABG HHb (Measured) ABG Methemoglobin Scar Test A-a O2 Difference Respiratory Index Hgb O2 Saturation Vent Mode Mechanical Rate FiO2 Tidal Volume PEEP Sodium 129 L Potassium 3.8 Chloride 97 L Carbon Dioxide 27 Anion Gap 10 BUN 36 H Creatinine 4.3 H Est GFR ( Amer) 16 Est GFR (Non-Af Amer) 13 Random Glucose 76 Calcium 7.6 L Total Bilirubin 1.5 H AST 67 H D ALT 47 Alkaline Phosphatase 206 H Total Protein 5.6 L Albumin 2.3 L Globulin 3.3 Albumin/Globulin Ratio 0.7 L Pleural Amylase Review of Systems - Review of Systems Systems not reviewed;Unavailable: Intubated Critical Care Progress Note - Nutrition Nutrition: Nutrition Category Date Time Status Renal Diet [DIET] Diets 10/27/17 Breakfast Active Assessment/Plan (1) Bradycardia Assessment and plan: Neuro: Alert and oriented on vent. Pulm: Acute respiratory failure secondary to pulmonary edema. Patient has bilateral chest tubes for draining of pleural effusions. Left pigtail working but not improving pneumothorax, will place a second apical pigtail in left lung today. Once patient's lungs are fully optimized will start aggressively weaning tomorrow. CV: Relatively hypotensive, but asymptomatic. Continue midodrine. Stopping Flomax for any possibility of contributing to hypotension. CHF with ejection fraction of 15%. Hem: Renal: Anuric on hemodialysis, currently getting daily dialysis to remove as much fluid as possible. Endo: No acute issues GI: Nothing by mouth, Nepro at 50. 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 DVT proph - Lovenox GI proph - Protonix sanon for strict I/O's during acute illness Code status - full code Critical Care Time spent 35 minutes Multi-disciplinary rounds were performed with house staff, nursing, speech therapy, respiratory therapy, pharmacy and nutrition with integrated input from the primary team/attending and other consulting services. The documented time is cumulative and includes review of patient data/exams/labs/chart review and examination of the patient on rounds and throughout the day; time is exclusive of any procedures or teaching time. Current Visit: Yes Status: Acute Comment: secondary to third-degree heart block, status post temporary pacemaker insertion Cardiology and EPS evaluation Patient refusing hemodialysis Follow-up lites Neurology evaluation Continue antibiotics for VRE
[2017-11-10] MEDS: NOREPINEPHRINE IV PRN (15:09)
[2017-11-10] MEDS: SODIUM CHLORIDE 0.9% IV PRN (15:09)
--- NOTE | 2017-11-10 16:06 | RAD ---
HISTORY: S/P CHEST TUBE INSERTION COMPARISON: 11/10/2017 at 7:04 a.m. FINDINGS: LUNGS: Diffuse left-sided infiltrate, unchanged. Right basilar infiltrate, unchanged. PLEURA: Small bilateral pleural effusion. Bilateral pigtail pleural catheters. Left apical pneumothorax seen on earlier examination is somewhat increased density which may be due to interval accumulation of some pleural fluid or pleural fluid superimposed upon pneumothorax. The lung is not reinflated. Small amount of fluid capping the right lung apex. CARDIOVASCULAR: ET tube, NG tube and central venous dialysis catheter are all permanent pacemaker. OSSEOUS STRUCTURES: No significant abnormalities. VISUALIZED UPPER ABDOMEN: Normal. OTHER FINDINGS: None. IMPRESSION: Left apical pneumothorax persists. Increasing attenuation suggests possible dependent pleural fluid at the lung apex. There are small bilateral pleural effusions. There is persistent infiltrate throughout the right lung and in the lower right lung.
--- NOTE | 2017-11-10 16:18 | PCM.PROC ---
<Vinod Cardenas - Last Filed: 11/10/17 16:16> Procedures Attestation:: I certify that I have explained the specified Operation(s) or Procedure(s), risks, benefits and reasonable alternatives to the Patient and/or other person responsible. The opportunity was given to ask questions and all questions answered - Chest Tube Chest Tube Location: Mid-Axillary Left Size of Tube (cm): 8 (ethiopian ) Chest Tube Procedure: Chlorhexidine Tube Sutured to Skin: Yes Sterile Dressing Applied: Yes Anesthesia: Lidocaine 1% Incision Made With: #11 blade Post Procedure: sutured to skin, sterile dressing applied, air occlusive dressing Mazariegos of [employer]: Yes Tube Drainage: fluid Amount of Initial Drainage: 10 Post Procedure CXR?: Yes Patient Tolerated Procedure: Yes <Sukumar Caro - Last Filed: 11/11/17 09:37> Attending/Attestation - Attestation I have personally seen and examined this patient.: Yes I have fully participated in the care of the patient.: Yes I have reviewed all pertinent clinical information, including history, physical exam and plan: Yes Notes (Text): 11/11/17 09:36 supervised procedure, no complications.
[2017-11-10] MEDS: Cefepime IV 1 gm in Dextrose 1 GM/50 ML BAG IVPB SCH (19:10)
[2017-11-10 23:48] LABS: CHOLESTEROL PLEURAL FLUID 19 mg/dL; GLUCOSE PLEURAL FLUID 117 mg/dL; LDH PLEURAL FLUID 163 U/L; TOTAL PROTEIN PLEURAL FLUID <3.0 g/dL; TRIGLYCERIDES PLEURAL FLUID 15 mg/dL
[2017-11-11] MEDS: Linezolid 600 mg in D5W 300 ml 600 MG/300 ML BAG IVPB SCH ×2 (05:27→17:22)
[2017-11-11 06:04] LABS: ARTERIAL BLOOD GAS HCO3 23.1 mmol/L (21-28); ARTERIAL BLOOD GAS HEMOGLOBIN 9.9 g/dL (11.7-17.4); ARTERIAL BLOOD GAS O2 SAT 94.7 % (95-98); ARTERIAL BLOOD GAS PCO2 36 mm/Hg (35-45); ARTERIAL BLOOD GAS PO2 66 mm/Hg (80-100); ARTERIAL BLOOD GAS TCO2 23.4 mmol/L (22-28)
[2017-11-11] MEDS: SODIUM CHLORIDE 0.9% IV PRN (06:28)
[2017-11-11] MEDS: NOREPINEPHRINE IV PRN (06:28)
[2017-11-11 06:50] LABS: BASO % 0.4 % (0.0-2.0); EOS % 0.1 % (0.0-4.0); HEMOGLOBIN 10.1 g/dL (12.0-18.0); LYMPH # 0.2 K/uL (1.0-4.3); LYMPH % 3.4 % (20.0-40.0); MEAN CORPUSCULAR HEMOGLOBIN 30.5 pg (27.0-31.0); MEAN CORPUSCULAR HGB CONC 31.7 g/dL (33.0-37.0); MONO # 0.1 K/uL (0.0-0.8); MONO % 1.6 % (0.0-10.0); NEUT # 5.3 K/uL (1.8-7.0); NEUT % 94.5 % (50.0-75.0); PLATELET COUNT 64 K/uL (130-400); RBC 3.32 Mil/uL (4.40-5.90); RED CELL DISTRIBUTION WIDTH 19.8 % (11.5-14.5); WHITE BLOOD COUNT 5.6 K/uL (4.8-10.8)
[2017-11-11 07:11] LABS: ALB/GLOB RATIO 0.7 (1.0-2.1); ALBUMIN 2.2 g/dL (3.5-5.0); CALCIUM 7.6 mg/dl (8.6-10.4); MAGNESIUM 1.9 mg/dL (1.6-2.3)
[2017-11-11] MEDS: Albuterol-Ipratrop 3 mg / 0.5 (3 ml) UD INH SCH ×3 (07:35→19:14)
[2017-11-11] MEDS: Propofol 10 mg/ml 1,000 MG/100 ML VIAL IV PRN (07:53)
[2017-11-11 09:05] LABS: ANISOCYTOSIS SLIGHT; BANDS 9 % (0-2); LYMPHOCYTE 2 % (20-40); MONOCYTE 1 % (0-10); NEUTROPHIL 88 % (50-75); PLATELET ESTIMATE DECREASED (NORMAL); TOTAL CELLS COUNTED 100
[2017-11-11 09:06] LABS: BURR CELLS SLIGHT; HYPOCHROMIC SLIGHT; OVALOCYTES SLIGHT; POIKILOCYTOSIS SLIGHT; POLYCHROMIC SLIGHT
[2017-11-11 09:07] LABS: LARGE PLATELETS PRESENT; SCHISTOCYTES SLIGHT
[2017-11-11] MEDS: Enoxaparin 40 mg Syringe SC SCH (09:21)
[2017-11-11] MEDS: Multivitamin Vitamin B Complex (Nephro-Vite) Tab PO SCH (09:21)
[2017-11-11] MEDS: Ferric Sodium Gluconat Complex 125 MG in Sodium Chloride 0.9% 100 ML IVPB SCH (10:06)
--- NOTE | 2017-11-11 10:06 | RAD ---
HISTORY: follow up COMPARISON: 11/10/2017 FINDINGS: LUNGS: Diffuse left-sided pulmonary infiltrate, unchanged. Right basilar infiltrate, unchanged. PLEURA: Small bilateral pleural effusion. Bilateral basal pleural pigtail catheters. Questionable very small left apical pneumothorax. No right-sided pneumothorax. CARDIOVASCULAR: Normal heart size. ET tube, NG tube, permanent pacemaker and right central venous dialysis catheter are unchanged. OSSEOUS STRUCTURES: No significant abnormalities. VISUALIZED UPPER ABDOMEN: Normal. OTHER FINDINGS: None. IMPRESSION: No change bilateral pulmonary infiltrates. Bilateral pleural pigtail catheters. Questionable very small residual left apical pneumothorax. Small bilateral pleural effusion.
[2017-11-11] MEDS: Albumin Human 25% (12.5 gm/50 ml) IV SCH ×6 (12:40→17:21)
--- NOTE | 2017-11-11 16:17 | CP.PCM.PN ---
Subjective - Date & Time of Evaluation Date of Evaluation: 11/11/17 Time of Evaluation: 09:00 - Subjective Subjective: afeb s/p chest tube nad intiubated Objective - Vital Signs/Intake and Output Vital Signs (last 24 hours): Temp Pulse Resp BP Pulse Ox 98.2 F 77 38 H 118/57 L 97 11/11/17 12:00 11/11/17 15:00 11/11/17 15:00 11/11/17 14:41 11/11/17 15:00 Intake and Output: 11/11/17 11/11/17 06:59 18:59 Intake Total 2763.4 1891.2 Output Total 284 Balance 2479.4 1891.2 - Medications Medications: Current Medications Acetaminophen (Tylenol 650mg/20.3ml Solution Ud) 650 mg PO Q4 PRN PRN Reason: Temperature Last Admin: 11/08/17 00:16 Dose: 650 mg Albumin Human (Albumin Human 25% (12.5 Gm/50 Ml)) 12.5 gm IV Q1H [facility] Stop: 11/11/17 17:31 Last Admin: 11/11/17 15:00 Dose: 12.5 gm Albuterol/Ipratropium (Duoneb 3 Mg/0.5 Mg (3 Ml) Ud) 3 ml INH RQ6 [facility] Last Admin: 11/11/17 13:14 Dose: 3 ml Amiodarone HCl (Cordarone) 200 mg PO BID [facility] Last Admin: 11/11/17 09:20 Dose: 200 mg Calcium Acetate (Phoslo) 1,334 mg PO TIDCC [facility] Last Admin: 11/11/17 11:03 Dose: 1,334 mg Enoxaparin Sodium (Lovenox) 40 mg SC DAILY [facility] Last Admin: 11/11/17 09:21 Dose: 40 mg Epoetin Pepe (Procrit) 10,000 unit IV MWF [facility] Last Admin: 11/09/17 11:10 Dose: 10,000 unit Ferric Sodium Gluconate Complex 125 mg/ Sodium Chloride 110 mls @ 110 mls/hr IVPB DAILY [facility] Stop: 11/13/17 14:31 Last Admin: 11/11/17 10:06 Dose: 110 mls/hr Cefepime HCl (Maxipime Iv 1 Gm Premix) 1 gm in 50 mls @ 100 mls/hr IVPB Q24H [facility] Last Admin: 11/10/17 19:10 Dose: 100 mls/hr Linezolid (Zyvox 600mg/300ml D5w) 600 mg in 300 mls @ 200 mls/hr IVPB Q12H [facility] Last Admin: 11/11/17 05:27 Dose: 200 mls/hr Norepinephrine Bitartrate 16 (mg/ Sodium Chloride) 1,000 mls @ 18.75 mls/hr IV .Q24H PRN; Protocol; 5 MCG/MIN PRN Reason: TITRATE PER MD ORDER Last Titration: 11/11/17 15:00 Dose: 6 mcg/min, 22.5 mls/hr Midodrine (Proamatine) 10 mg PO TID [facility] Last Admin: 11/11/17 13:25 Dose: 10 mg Pantoprazole Sodium (Protonix Inj) 40 mg IVP DAILY [facility] Last Admin: 11/11/17 09:21 Dose: 40 mg Vitamin B Complex/Vit C/Folic Acid (Nephro-Aelksandra) 1 tab PO DAILY [facility] Last Admin: 11/11/17 09:21 Dose: 1 tab - Labs Labs: 11/11/17 04:27 11/11/17 06:40 PT 13.9 SECONDS (9.7-12.2) H 10/24/17 06:20 INR 1.2 10/24/17 06:20 APTT 57 SECONDS (21-34) H D 10/30/17 06:12 - Constitutional Appears: Non-toxic, Cachectic, Chronically Ill - Head Exam Head Exam: NORMOCEPHALIC - Eye Exam Eye Exam: EOMI, PERRL. absent: Scleral icterus - ENT Exam ENT Exam: Mucous Membranes Dry - Neck Exam Neck Exam: absent: Lymphadenopathy - Respiratory Exam Respiratory Exam: Decreased Breath Sounds - Cardiovascular Exam Cardiovascular Exam: REGULAR RHYTHM - GI/Abdominal Exam GI & Abdominal Exam: Distended, Soft - Rectal Exam Rectal Exam: Deferred - Exam Exam: NORMAL INSPECTION - Extremities Exam Extremities Exam: absent: Pedal Edema - Back Exam Back Exam: absent: CVA tenderness (L), CVA tenderness (R) - Neurological Exam Neurological Exam: Altered Assessment and Plan - Assessment and Plan (Free Text) Assessment: resp failure sepsis pleurisy ckd pneumonia cont rx
[2017-11-11] MEDS: Midazolam 2 MG/2 ML VIAL IVP PRN ×2 (16:49→20:54)
--- NOTE | 2017-11-11 17:57 | CP.CCUPN ---
CCU Subjective - Physician Review Events Since Last Encounter (Free Text): 11/11/17 17:43 alert and following commands. CCU Objective - Vital Signs / Intake & Output Vital Signs (Last 4 hours): Vital Signs Temp Pulse Resp BP Pulse Ox 11/11/17 16:43 49 L 38 H 132/45 L 94 L 11/11/17 16:12 60 36 H 106/49 L 95 11/11/17 16:00 98.2 F 67 35 H 96 11/11/17 15:41 78 36 H 111/53 L 94 L 11/11/17 15:11 77 37 H 114/53 L 11/11/17 15:00 77 38 H 97 11/11/17 14:41 80 37 H 118/57 L 95 11/11/17 14:12 80 35 H 117/51 L 97 11/11/17 14:00 81 38 H 97 Intake and Output (Last 8hrs): Intake & Output 11/11/17 11/11/17 11/11/17 06:59 14:59 22:59 Intake Total 2114.4 1744.7 181.5 Output Total 284 Balance 1830.4 1744.7 181.5 Weight 111 lb 6.4 oz Intake: IV 1100 535 59 Intake, IV Amount 614.4 659.7 72.5 Left Distal Port 150 50 Left Medial Port 540.0 457.5 22.5 Left Proximal Port 74.4 52.2 0 Tube Feeding 400 400 50 Other 150 Output: Chest Tube Drainage 284 Left Anterior Chest 170 Left Mid-Axillary Chest 4 Right Mid-Axillary Chest 110 Other: # Bowel Movements 0 0 0 - Physical Exam Head: Positive for: Atraumatic, Normocephalic Extroacular Muscles: Positive for: EOMI. Negative for: Gaze Palsy Conjunctiva: Positive for: Normal Mouth: Positive for: Moist Mucous Membranes, Normal Lips Neck: Positive for: Normal Range of Motion, Other (L IJ) Respiratory/Chest: Positive for: Clear to Auscultation, Other (intubated) Cardiovascular: Positive for: Regular Rate and Rhythm Abdomen: Positive for: Normal Bowel Sounds Upper Extremity: Positive for: Normal Inspection, Capillary Refill < 2s. Negative for: Edema Lower Extremity: Positive for: Normal Inspection, Capillary Refill < 2 s. Negative for: Edema Neurological: Positive for: Speech Normal Psychiatric: Positive for: Alert, Oriented x 3 - Medications Active Medications: Active Medications Generic Name Dose Route Start Last Admin Trade Name Freq PRN Reason Stop Dose Admin Acetaminophen 650 mg 11/06/17 23:47 11/08/17 00:16 Tylenol 650mg/20.3ml Solution Ud PO 650 mg Q4 PRN Administration Temperature Albuterol/Ipratropium 3 ml 11/09/17 14:00 11/11/17 13:14 Duoneb 3 Mg/0.5 Mg (3 Ml) Ud INH 3 ml RQ6 [facility] Administration Amiodarone HCl 200 mg 11/05/17 17:17 11/11/17 17:21 Cordarone PO 200 mg BID TANI Administration Calcium Acetate 1,334 mg 10/27/17 09:29 11/11/17 17:21 Phoslo PO 1,334 mg TIDCC TANI Administration Enoxaparin Sodium 40 mg 11/08/17 10:30 11/11/17 09:21 Lovenox SC 40 mg DAILY TANI Administration Epoetin Pepe 10,000 unit 10/22/17 14:30 11/09/17 11:10 Procrit IV 10,000 unit MWF TANI Administration Ferric Sodium Gluconate 110 mls @ 110 mls/hr 11/05/17 14:30 11/11/17 10:06 Complex 125 mg/ Sodium IVPB 11/13/17 14:31 110 mls/hr Chloride DAILY TANI Administration Cefepime HCl 1 gm in 50 mls @ 100 mls/hr 11/05/17 19:00 11/10/17 19:10 Maxipime Iv 1 Gm Premix IVPB 100 mls/hr Q24H [facility] Administration Linezolid 600 mg in 300 mls @ 200 mls/hr 11/07/17 18:00 11/11/17 17:22 Zyvox 600mg/300ml D5w IVPB 200 mls/hr Q12H [facility] Administration Norepinephrine Bitartrate 16 1,000 mls @ 18.75 mls/hr 11/09/17 23:00 17:20 mg/ Sodium Chloride IV 6 mcg/min .Q24H PRN 22.5 mls/hr TITRATE PER MD ORDER Titration Protocol 5 MCG/MIN Midazolam HCl 2 mg 11/11/17 16:43 11/11/17 16:49 Versed Inj IVP 2 mg Q4H PRN Administration Agitation Midodrine 10 mg 10/26/17 08:33 11/11/17 17:23 Proamatine PO 10 mg TID TANI Administration Pantoprazole Sodium 40 mg 11/08/17 10:30 11/11/17 09:21 Protonix Inj IVP 40 mg DAILY TANI Administration Vitamin B Complex/Vit C/Folic Acid 1 tab 10/12/17 10:00 11/11/17 09:21 Nephro-Aleksandra PO 1 tab DAILY TANI Administration - Patient Studies Lab Studies: Microbiology Studies 11/07/17 14:45 Gram Stain - Final Pleural Fluid Body Fluid Culture - Final No growth. 11/09/17 16:33 Gram Stain - Final Trachasp 11/05/17 18:00 Blood Culture - Final Blood-Venous NO GROWTH AFTER 5 DAYS Gram Stain - Final TEST NOT PERFORMED 11/05/17 18:00 Blood Culture - Final Blood-Venous NO GROWTH AFTER 5 DAYS Gram Stain - Final TEST NOT PERFORMED 11/09/17 16:25 Blood Culture - Preliminary Blood NO GROWTH AFTER 24 HOURS 11/09/17 16:55 Blood Culture - Preliminary Blood NO GROWTH AFTER 24 HOURS Lab Studies 11/11/17 11/11/17 11/11/17 Range/Units 06:40 05:02 04:27 WBC 5.6 (4.8-10.8) K/uL RBC 3.32 L (4.40-5.90) Mil/uL Hgb 10.1 L (12.0-18.0) g/dL Hct 31.8 L (35.0-51.0) % MCV 96.0 H (80.0-94.0) fL MCH 30.5 (27.0-31.0) pg MCHC 31.7 L (33.0-37.0) g/dL RDW 19.8 H (11.5-14.5) % Plt Count 64 L (130-400) K/uL MPV 11.0 (7.2-11.7) fL Neut % (Auto) 94.5 H (50.0-75.0) % Lymph % (Auto) 3.4 L (20.0-40.0) % [place] % (Auto) 1.6 (0.0-10.0) % Eos % (Auto) 0.1 (0.0-4.0) % Baso % (Auto) 0.4 (0.0-2.0) % Neut # 5.3 (1.8-7.0) K/uL Lymph # 0.2 L (1.0-4.3) K/uL [place] # 0.1 (0.0-0.8) K/uL Eos # 0.0 (0.0-0.7) K/uL Baso # 0.0 (0.0-0.2) K/uL Neutrophils % (Manual) 88 H (50-75) % Band Neutrophils % 9 H (0-2) % Lymphocytes % (Manual) 2 L (20-40) % Monocytes % (Manual) 1 (0-10) % Platelet Estimate Decreased L (NORMAL) Large Platelets Present Polychromasia Slight Hypochromasia (manual) Slight Poikilocytosis (manual Slight Anisocytosis (manual) Slight Macrocytosis (manual) Slight Ovalocytes Slight [place] Cells Slight Schistocytes Slight Puncture Site R bra pCO2 36 (35-45) mm/Hg pO2 66 L (80-100) mm/Hg HCO3 23.1 (21-28) mmol/L ABG pH 7.40 (7.35-7.45) ABG Total CO2 23.4 (22-28) mmol/L ABG O2 Saturation 94.7 L (95-98) % ABG Base Excess -2.2 L (-2.0-3.0) mmol/L ABG Hemoglobin 9.9 L (11.7-17.4) g/dL ABG Carboxyhemoglobin 1.2 (0.5-1.5) % POC ABG HHb (Measured) 5.2 H (0.0-5.0) % ABG Methemoglobin 1.1 (0.0-3.0) % Scar Test Na A-a O2 Difference 246.0 mm/Hg Respiratory Index 3.7 Hgb O2 Saturation 92.5 L (95.0-98.0) % Vent Mode Prvc Mechanical Rate 18 FiO2 50.0 % Tidal Volume 400 PEEP 5 Sodium 129 L (132-148) mmol/L Potassium 3.4 L (3.6-5.2) mmol/L Chloride 96 L (98-107) mmol/L Carbon Dioxide 25 (22-30) mmol/L Anion Gap 11 (10-20) BUN 35 H (9-20) mg/dL Creatinine 3.8 H (0.8-1.5) mg/dL Est GFR ( Amer) 19 Est GFR (Non-Af Amer) 16 Random Glucose 122 H (75-110) mg/dL Calcium 7.6 L (8.6-10.4) mg/dl Phosphorus 2.1 L (2.5-4.5) mg/dL Magnesium 1.9 (1.6-2.3) mg/dL Total Bilirubin 0.8 (0.2-1.3) mg/dL AST 62 H (17-59) U/L ALT 39 (21-72) U/L Alkaline Phosphatase 282 H D (38-126) U/L Total Protein 5.4 L (6.3-8.3) g/dL Albumin 2.2 L (3.5-5.0) g/dL Globulin 3.2 (2.2-3.9) gm/dL Albumin/Globulin Ratio 0.7 L (1.0-2.1) Pleural Total Protein g/dL Pleural LDH U/L Pleural Glucose mg/dL Pleural Cholesterol mg/dL Pleural Triglycerides mg/dL 11/07/17 Range/Units 15:53 WBC (4.8-10.8) K/uL RBC (4.40-5.90) Mil/uL Hgb (12.0-18.0) g/dL Hct (35.0-51.0) % MCV (80.0-94.0) fL MCH (27.0-31.0) pg MCHC (33.0-37.0) g/dL RDW (11.5-14.5) % Plt Count (130-400) K/uL MPV (7.2-11.7) fL Neut % (Auto) (50.0-75.0) % Lymph % (Auto) (20.0-40.0) % [place] % (Auto) (0.0-10.0) % Eos % (Auto) (0.0-4.0) % Baso % (Auto) (0.0-2.0) % Neut # (1.8-7.0) K/uL Lymph # (1.0-4.3) K/uL [place] # (0.0-0.8) K/uL Eos # (0.0-0.7) K/uL Baso # (0.0-0.2) K/uL Neutrophils % (Manual) (50-75) % Band Neutrophils % (0-2) % Lymphocytes % (Manual) (20-40) % Monocytes % (Manual) (0-10) % Platelet Estimate (NORMAL) Large Platelets Polychromasia Hypochromasia (manual) Poikilocytosis (manual Anisocytosis (manual) Macrocytosis (manual) Ovalocytes [place] Cells Schistocytes Puncture Site pCO2 (35-45) mm/Hg pO2 (80-100) mm/Hg HCO3 (21-28) mmol/L ABG pH (7.35-7.45) ABG Total CO2 (22-28) mmol/L ABG O2 Saturation (95-98) % ABG Base Excess (-2.0-3.0) mmol/L ABG Hemoglobin (11.7-17.4) g/dL ABG Carboxyhemoglobin (0.5-1.5) % POC ABG HHb (Measured) (0.0-5.0) % ABG Methemoglobin (0.0-3.0) % Scar Test A-a O2 Difference mm/Hg Respiratory Index Hgb O2 Saturation (95.0-98.0) % Vent Mode Mechanical Rate FiO2 % Tidal Volume PEEP Sodium (132-148) mmol/L Potassium (3.6-5.2) mmol/L Chloride (98-107) mmol/L Carbon Dioxide (22-30) mmol/L Anion Gap (10-20) BUN (9-20) mg/dL Creatinine (0.8-1.5) mg/dL Est GFR ( Amer) Est GFR (Non-Af Amer) Random Glucose (75-110) mg/dL Calcium (8.6-10.4) mg/dl Phosphorus (2.5-4.5) mg/dL Magnesium (1.6-2.3) mg/dL Total Bilirubin (0.2-1.3) mg/dL AST (17-59) U/L ALT (21-72) U/L Alkaline Phosphatase (38-126) U/L Total Protein (6.3-8.3) g/dL Albumin (3.5-5.0) g/dL Globulin (2.2-3.9) gm/dL Albumin/Globulin Ratio (1.0-2.1) Pleural Total Protein <3.0 g/dL Pleural LDH 163 U/L Pleural Glucose 117 mg/dL Pleural Cholesterol 19 mg/dL Pleural Triglycerides 15 mg/dL Laboratory Results - last 24 hr 11/07/17 11/11/17 11/11/17 15:53 04:27 05:02 WBC 5.6 RBC 3.32 L Hgb 10.1 L Hct 31.8 L MCV 96.0 H MCH 30.5 MCHC 31.7 L RDW 19.8 H Plt Count 64 L MPV 11.0 Neut % (Auto) 94.5 H Lymph % (Auto) 3.4 L [place] % (Auto) 1.6 Eos % (Auto) 0.1 Baso % (Auto) 0.4 Neut # 5.3 Lymph # 0.2 L [place] # 0.1 Eos # 0.0 Baso # 0.0 Neutrophils % (Manual) 88 H Band Neutrophils % 9 H Lymphocytes % (Manual) 2 L Monocytes % (Manual) 1 Platelet Estimate Decreased L Large Platelets Present Polychromasia Slight Hypochromasia (manual) Slight Poikilocytosis (manual Slight Anisocytosis (manual) Slight Macrocytosis (manual) Slight Ovalocytes Slight [place] Cells Slight Schistocytes Slight Puncture Site R bra pCO2 36 pO2 66 L HCO3 23.1 ABG pH 7.40 ABG Total CO2 23.4 ABG O2 Saturation 94.7 L ABG Base Excess -2.2 L ABG Hemoglobin 9.9 L ABG Carboxyhemoglobin 1.2 POC ABG HHb (Measured) 5.2 H ABG Methemoglobin 1.1 Scar Test Na A-a O2 Difference 246.0 Respiratory Index 3.7 Hgb O2 Saturation 92.5 L Vent Mode Prvc Mechanical Rate 18 FiO2 50.0 Tidal Volume 400 PEEP 5 Sodium Potassium Chloride Carbon Dioxide Anion Gap BUN Creatinine Est GFR ( Amer) Est GFR (Non-Af Amer) Random Glucose Calcium Phosphorus Magnesium Total Bilirubin AST ALT Alkaline Phosphatase Total Protein Albumin Globulin Albumin/Globulin Ratio Pleural Total Protein <3.0 Pleural LDH 163 Pleural Glucose 117 Pleural Cholesterol 19 Pleural Triglycerides 15 11/11/17 06:40 WBC RBC Hgb Hct MCV MCH MCHC RDW Plt Count MPV Neut % (Auto) Lymph % (Auto) [place] % (Auto) Eos % (Auto) Baso % (Auto) Neut # Lymph # [place] # Eos # Baso # Neutrophils % (Manual) Band Neutrophils % Lymphocytes % (Manual) Monocytes % (Manual) Platelet Estimate Large Platelets Polychromasia Hypochromasia (manual) Poikilocytosis (manual Anisocytosis (manual) Macrocytosis (manual) Ovalocytes [place] Cells Schistocytes Puncture Site pCO2 pO2 HCO3 ABG pH ABG Total CO2 ABG O2 Saturation ABG Base Excess ABG Hemoglobin ABG Carboxyhemoglobin POC ABG HHb (Measured) ABG Methemoglobin Scar Test A-a O2 Difference Respiratory Index Hgb O2 Saturation Vent Mode Mechanical Rate FiO2 Tidal Volume PEEP Sodium 129 L Potassium 3.4 L Chloride 96 L Carbon Dioxide 25 Anion Gap 11 BUN 35 H Creatinine 3.8 H Est GFR ( Amer) 19 Est GFR (Non-Af Amer) 16 Random Glucose 122 H Calcium 7.6 L Phosphorus 2.1 L Magnesium 1.9 Total Bilirubin 0.8 AST 62 H ALT 39 Alkaline Phosphatase 282 H D Total Protein 5.4 L Albumin 2.2 L Globulin 3.2 Albumin/Globulin Ratio 0.7 L Pleural Total Protein Pleural LDH Pleural Glucose Pleural Cholesterol Pleural Triglycerides Review of Systems - Review of Systems Systems not reviewed;Unavailable: Intubated Critical Care Progress Note - Nutrition Nutrition: Nutrition Category Date Time Status Renal Diet [DIET] Diets 10/27/17 Breakfast Active Assessment/Plan (1) Bradycardia Assessment and plan: Neuro: Alert and oriented on vent. versed prn for agitation. Pulm: Acute respiratory failure secondary to pulmonary edema. one right pigtail , two left pigtails, have both drained the patient's lungs effectively. With aggressive dialysis the patient has been effectively dried out. He is unfortunately very weak and failed his first pressure support trial today. Will try again tomorrow. CV: Relatively hypotensive, but asymptomatic. Continue midodrine. Stopping Flomax for any possibility of contributing to hypotension. CHF with ejection fraction of 15%. Hem: anemia of critical illness. Renal: Anuric on hemodialysis, resuming MWF schedule. Endo: No acute issues. GI: Nothing by mouth, Nepro at 50. severe protein calorie malnutrition with cachexia. 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 DVT proph - Lovenox GI proph - Protonix sanon for strict I/O's during acute illness Code status - full code Critical Care Time spent 35 minutes Multi-disciplinary rounds were performed with house staff, nursing, speech therapy, respiratory therapy, pharmacy and nutrition with integrated input from the primary team/attending and other consulting services. The documented time is cumulative and includes review of patient data/exams/labs/chart review and examination of the patient on rounds and throughout the day; time is exclusive of any procedures or teaching time. Current Visit: Yes Status: Acute Comment: secondary to third-degree heart block, status post temporary pacemaker insertion Cardiology and EPS evaluation Patient refusing hemodialysis Follow-up lites Neurology evaluation Continue antibiotics for VRE
[2017-11-11] MEDS: Cefepime IV 1 gm in Dextrose 1 GM/50 ML BAG IVPB SCH (18:48)
[2017-11-11 22:20] LABS: ABG ALLEN TEST POS; ARTERIAL BLOOD GAS HCO3 22.3 mmol/L (21-28); ARTERIAL BLOOD GAS O2 SAT 95.1 % (95-98); ARTERIAL BLOOD GAS PCO2 35 mm/Hg (35-45); ARTERIAL BLOOD GAS PH 7.39 (7.35-7.45); ARTERIAL BLOOD GAS PO2 60 mm/Hg (80-100); ARTERIAL BLOOD GAS TCO2 22.3 mmol/L (22-28)
[2017-11-12] MEDS: Albuterol-Ipratrop 3 mg / 0.5 (3 ml) UD INH SCH ×4 (01:25→20:20)
[2017-11-12] MEDS: Linezolid 600 mg in D5W 300 ml 600 MG/300 ML BAG IVPB SCH ×2 (05:50→18:05)
[2017-11-12 06:03] LABS: BASO % 0.1 % (0.0-2.0); EOS % 0.1 % (0.0-4.0); HEMOGLOBIN 9.4 g/dL (12.0-18.0); LYMPH # 0.4 K/uL (1.0-4.3); LYMPH % 7.5 % (20.0-40.0); MEAN CELL VOLUME 94.7 fL (80.0-94.0); MEAN CORPUSCULAR HEMOGLOBIN 30.5 pg (27.0-31.0); MEAN CORPUSCULAR HGB CONC 32.2 g/dL (33.0-37.0); MEAN PLATELET VOLUME 11.1 fL (7.2-11.7); MONO # 0.1 K/uL (0.0-0.8); MONO % 2.6 % (0.0-10.0); NEUT # 5.1 K/uL (1.8-7.0); NEUT % 89.7 % (50.0-75.0); NRBC % 0.3 % (0.0-2.0); PLATELET COUNT 40 K/uL (130-400); RBC 3.09 Mil/uL (4.40-5.90); RED CELL DISTRIBUTION WIDTH 19.7 % (11.5-14.5); WHITE BLOOD COUNT 5.6 K/uL (4.8-10.8)
[2017-11-12 06:26] LABS: ARTERIAL BLOOD GAS HCO3 26.7 mmol/L (21-28); ARTERIAL BLOOD GAS HEMOGLOBIN 9.6 g/dL (11.7-17.4); ARTERIAL BLOOD GAS O2 SAT 98.5 % (95-98); ARTERIAL BLOOD GAS PCO2 38 mm/Hg (35-45); ARTERIAL BLOOD GAS PH 7.45 (7.35-7.45); ARTERIAL BLOOD GAS PO2 166 mm/Hg (80-100); ARTERIAL BLOOD GAS TCO2 27.6 mmol/L (22-28)
[2017-11-12 06:32] LABS: ALB/GLOB RATIO 0.9 (1.0-2.1); ALBUMIN 2.8 g/dL (3.5-5.0); CALCIUM 7.9 mg/dl (8.6-10.4); MAGNESIUM 1.9 mg/dL (1.6-2.3)
[2017-11-12] MEDS: Midazolam 2 MG/2 ML VIAL IVP PRN ×2 (06:55→16:24)
[2017-11-12] MEDS: Acetaminophen 650mg/20.3ml solution UD PO PRN (08:03)
[2017-11-12 08:39] LABS: BANDS 1 % (0-2); LYMPHOCYTE 4 % (20-40); MONOCYTE 2 % (0-10); NEUTROPHIL 93 % (50-75); PLATELET ESTIMATE NORMAL (NORMAL); TOTAL CELLS COUNTED 100
[2017-11-12 08:40] LABS: ANISOCYTOSIS SLIGHT; HYPOCHROMIC SLIGHT; POLYCHROMIC SLIGHT
[2017-11-12 08:41] LABS: POIKILOCYTOSIS SLIGHT; TARGET CELLS SLIGHT; TOXIC GRANULATION PRESENT
[2017-11-12 08:42] LABS: BURR CELLS SLIGHT; OVALOCYTES SLIGHT
--- NOTE | 2017-11-12 08:58 | RAD ---
Chest x-ray single frontal view History: Pigtail catheter leak Comparison: 11/11/2017 Findings: Lines and tubes in stable position. Persistent moderate bilateral pleural effusions. Persistent diffuse confluent bilateral airspace opacities throughout both lungs. Cardiomegaly. Degenerative changes in the spine and shoulders. Left-sided pacemaker. Impression: No significant interval change.
[2017-11-12] MEDS: Multivitamin Vitamin B Complex (Nephro-Vite) Tab PO SCH (10:43)
--- NOTE | 2017-11-12 11:00 | CP.PCM.PN ---
Subjective - Date & Time of Evaluation Date of Evaluation: 11/12/17 Time of Evaluation: 10:57 - Subjective Subjective: s/p chest tube placement-minmal drainage Has small pneumothorax On vent, sedated; remsains on levo 13 mch/min For dialysis today Cannot obtain ROS Objective - Vital Signs/Intake and Output Vital Signs (last 24 hours): Temp Pulse Resp BP Pulse Ox 102.3 F H 58 L 36 H 99/43 L 100 11/12/17 08:00 11/12/17 09:00 11/12/17 09:00 11/12/17 08:56 11/12/17 09:00 Intake and Output: 11/12/17 11/12/17 06:59 18:59 Intake Total 1055.0 275 Output Total 230 Balance 1055.0 45 - Medications Medications: Current Medications Acetaminophen (Tylenol 650mg/20.3ml Solution Ud) 650 mg PO Q4 PRN PRN Reason: Temperature Last Admin: 11/12/17 08:03 Dose: 650 mg Albuterol/Ipratropium (Duoneb 3 Mg/0.5 Mg (3 Ml) Ud) 3 ml INH RQ6 [facility] Last Admin: 11/12/17 07:20 Dose: 3 ml Amiodarone HCl (Cordarone) 200 mg PO BID [facility] Last Admin: 11/12/17 10:43 Dose: 200 mg Calcium Acetate (Phoslo) 1,334 mg PO TIDCC [facility] Last Admin: 11/12/17 08:03 Dose: 1,334 mg Enoxaparin Sodium (Lovenox) 40 mg SC DAILY [facility] Last Admin: 11/11/17 09:21 Dose: 40 mg Epoetin Pepe (Procrit) 10,000 unit IV MWF [facility] Last Admin: 11/09/17 11:10 Dose: 10,000 unit Ferric Sodium Gluconate Complex 125 mg/ Sodium Chloride 110 mls @ 110 mls/hr IVPB DAILY [facility] Stop: 11/13/17 14:31 Last Admin: 11/11/17 10:06 Dose: 110 mls/hr Cefepime HCl (Maxipime Iv 1 Gm Premix) 1 gm in 50 mls @ 100 mls/hr IVPB Q24H [facility] Last Admin: 11/11/17 18:48 Dose: 100 mls/hr Linezolid (Zyvox 600mg/300ml D5w) 600 mg in 300 mls @ 200 mls/hr IVPB Q12H [facility] Last Admin: 11/12/17 05:50 Dose: 200 mls/hr Norepinephrine Bitartrate 16 (mg/ Sodium Chloride) 1,000 mls @ 18.75 mls/hr IV .Q24H PRN; Protocol; 5 MCG/MIN PRN Reason: TITRATE PER MD ORDER Last Titration: 11/12/17 09:02 Dose: 13 mcg/min, 48.75 mls/hr Midazolam HCl (Versed Inj) 2 mg IVP Q4H PRN PRN Reason: Agitation Last Admin: 11/12/17 06:55 Dose: 2 mg Midodrine (Proamatine) 10 mg PO TID [facility] Last Admin: 11/12/17 10:43 Dose: 10 mg Pantoprazole Sodium (Protonix Inj) 40 mg IVP DAILY [facility] Last Admin: 11/12/17 10:42 Dose: 40 mg Vitamin B Complex/Vit C/Folic Acid (Nephro-Aleksandra) 1 tab PO DAILY [facility] Last Admin: 11/12/17 10:43 Dose: 1 tab - Labs Labs: 11/12/17 06:00 11/12/17 06:00 PT 13.9 SECONDS (9.7-12.2) H 10/24/17 06:20 INR 1.2 10/24/17 06:20 APTT 57 SECONDS (21-34) H D 10/30/17 06:12 - Constitutional Appears: In Acute Distress, Chronically Ill - Head Exam Head Exam: ATRAUMATIC, NORMAL INSPECTION - Eye Exam Eye Exam: EOMI, Normal appearance - Neck Exam Neck Exam: Normal Inspection - Respiratory Exam Respiratory Exam: Decreased Breath Sounds, Clear to Ausculation Bilateral, NORMAL BREATHING PATTERN - Cardiovascular Exam Cardiovascular Exam: REGULAR RHYTHM, +S1 - GI/Abdominal Exam GI & Abdominal Exam: Soft, Normal Bowel Sounds - Extremities Exam Extremities Exam: Normal Inspection - Neurological Exam Neurological Exam: Altered - Skin Skin Exam: Dry, Warm Assessment and Plan (1) CKD (chronic kidney disease) stage 5, GFR less than 15 ml/min Status: Acute (2) Acute urinary retention Status: Acute (3) Obstructed Beck catheter Status: Acute (4) Cardiomyopathy Status: Acute (5) Hepatitis C antibody positive in blood Status: Acute (6) VRE (vancomycin resistant enterococcus) culture positive Status: Acute (7) ESRD (end stage renal disease) on dialysis Status: Acute (8) Hepatitis C antibody test positive Status: Acute (9) CHF (congestive heart failure) Status: Acute (10) Metabolic encephalopathy Status: Acute - Assessment and Plan (Free Text) Plan: Repeat dialysis now, then MWF Vent, chest tube management monitor lytes stop binders Continue ESAs, IV Fe for for Hg cardiology recommendations
--- NOTE | 2017-11-12 11:15 | CP.PCM.PN ---
Subjective - Date & Time of Evaluation Date of Evaluation: 11/12/17 Time of Evaluation: 09:00 - Subjective Subjective: weak and bedridden on vent fever this am recultured add merrem d/c cefepime add mycamine cont zyvox Objective - Vital Signs/Intake and Output Vital Signs (last 24 hours): Temp Pulse Resp BP Pulse Ox 102.3 F H 58 L 36 H 99/43 L 100 11/12/17 08:00 11/12/17 09:00 11/12/17 09:00 11/12/17 08:56 11/12/17 09:00 Intake and Output: 11/12/17 11/12/17 06:59 18:59 Intake Total 1055.0 275 Output Total 230 Balance 1055.0 45 - Medications Medications: Current Medications Acetaminophen (Tylenol 650mg/20.3ml Solution Ud) 650 mg PO Q4 PRN PRN Reason: Temperature Last Admin: 11/12/17 08:03 Dose: 650 mg Albuterol/Ipratropium (Duoneb 3 Mg/0.5 Mg (3 Ml) Ud) 3 ml INH RQ6 [facility] Last Admin: 11/12/17 07:20 Dose: 3 ml Amiodarone HCl (Cordarone) 200 mg PO BID [facility] Last Admin: 11/12/17 10:43 Dose: 200 mg Enoxaparin Sodium (Lovenox) 40 mg SC DAILY [facility] Last Admin: 11/11/17 09:21 Dose: 40 mg Epoetin Pepe (Procrit) 10,000 unit IV MWF [facility] Last Admin: 11/09/17 11:10 Dose: 10,000 unit Ferric Sodium Gluconate Complex 125 mg/ Sodium Chloride 110 mls @ 110 mls/hr IVPB DAILY [facility] Stop: 11/13/17 14:31 Last Admin: 11/11/17 10:06 Dose: 110 mls/hr Cefepime HCl (Maxipime Iv 1 Gm Premix) 1 gm in 50 mls @ 100 mls/hr IVPB Q24H [facility] Last Admin: 11/11/17 18:48 Dose: 100 mls/hr Linezolid (Zyvox 600mg/300ml D5w) 600 mg in 300 mls @ 200 mls/hr IVPB Q12H [facility] Last Admin: 11/12/17 05:50 Dose: 200 mls/hr Norepinephrine Bitartrate 16 (mg/ Sodium Chloride) 1,000 mls @ 18.75 mls/hr IV .Q24H PRN; Protocol; 5 MCG/MIN PRN Reason: TITRATE PER MD ORDER Last Titration: 11/12/17 09:02 Dose: 13 mcg/min, 48.75 mls/hr Meropenem 500 mg/ Sodium (Chloride) 100 mls @ 100 mls/hr IVPB Q12H [facility] Micafungin Sodium 100 mg/ (Sodium Chloride) 100 mls @ 100 mls/hr IV Q24H [facility] Midazolam HCl (Versed Inj) 2 mg IVP Q4H PRN PRN Reason: Agitation Last Admin: 11/12/17 06:55 Dose: 2 mg Midodrine (Proamatine) 10 mg PO TID [facility] Last Admin: 11/12/17 10:43 Dose: 10 mg Pantoprazole Sodium (Protonix Inj) 40 mg IVP DAILY [facility] Last Admin: 11/12/17 10:42 Dose: 40 mg Vitamin B Complex/Vit C/Folic Acid (Nephro-Aleksandra) 1 tab PO DAILY [facility] Last Admin: 11/12/17 10:43 Dose: 1 tab - Labs Labs: 11/12/17 06:00 11/12/17 06:00 PT 13.9 SECONDS (9.7-12.2) H 10/24/17 06:20 INR 1.2 10/24/17 06:20 APTT 57 SECONDS (21-34) H D 10/30/17 06:12 - Constitutional Appears: Toxic, Cachectic, Chronically Ill - Head Exam Head Exam: NORMOCEPHALIC - Eye Exam Eye Exam: absent: Scleral icterus - ENT Exam ENT Exam: Mucous Membranes Dry - Neck Exam Neck Exam: absent: Lymphadenopathy - Respiratory Exam Respiratory Exam: Decreased Breath Sounds, Rhonchi - Cardiovascular Exam Cardiovascular Exam: Tachycardia, REGULAR RHYTHM, +S1, +S2 - GI/Abdominal Exam GI & Abdominal Exam: Distended, Soft. absent: Tenderness - Rectal Exam Rectal Exam: Deferred - Exam Exam: NORMAL INSPECTION - Extremities Exam Extremities Exam: absent: Pedal Edema - Back Exam Back Exam: absent: CVA tenderness (L), CVA tenderness (R) - Neurological Exam Neurological Exam: Alert, Awake - Psychiatric Exam Psychiatric exam: Depressed - Skin Skin Exam: Dry Assessment and Plan - Assessment and Plan (Free Text) Plan: resp failure, pneumonia and CHF in setting of ESRD ongoing sepsis/ pneumonia cont zyvox/ merrem and mycamine
[2017-11-12] MEDS: Meropenem 500 MG in Sodium Chloride 0.9% 100 ML IVPB SCH ×2 (11:40→23:31)
[2017-11-12] MEDS ORDERED: Lidocaine 2 Grams in D5W 2,000 MG/500 ML BAG IV SCH ×3 (13:00→13:45)
[2017-11-12] MEDS: Phenylephrine 30 MG in Dextrose 5% In Water 250 ML IV PRN ×3 (13:05→23:29)
[2017-11-12] MEDS ORDERED: Lidocaine 1% Inj (20ml) IV ONE (13:09)
--- NOTE | 2017-11-12 13:26 | CP.PCM.PN ---
Subjective - Date & Time of Evaluation Date of Evaluation: 11/12/17 Time of Evaluation: 13:25 - Subjective Subjective: ON VENT SEDATED BP MAINTAINED ON LEVOPHED FOR DIALYSIS TODAY SEPSIS ON 3 IV AB PNEUMOTHORAX, EFFUSION DECLINING Objective - Vital Signs/Intake and Output Vital Signs (last 24 hours): Temp Pulse Resp BP Pulse Ox 98.2 F 60 33 H 106/52 L 100 11/12/17 09:03 11/12/17 12:45 11/12/17 12:45 11/12/17 12:45 11/12/17 12:45 Intake and Output: 11/12/17 11/12/17 11:59 23:59 Intake Total 1176.4 Output Total 230 Balance 946.4 - Medications Medications: Current Medications Acetaminophen (Tylenol 650mg/20.3ml Solution Ud) 650 mg PO Q4 PRN PRN Reason: Temperature Last Admin: 11/12/17 08:03 Dose: 650 mg Albuterol/Ipratropium (Duoneb 3 Mg/0.5 Mg (3 Ml) Ud) 3 ml INH RQ6 [facility] Last Admin: 11/12/17 07:20 Dose: 3 ml Amiodarone HCl (Cordarone) 200 mg PO BID [facility] Last Admin: 11/12/17 10:43 Dose: 200 mg Epoetin Pepe (Procrit) 10,000 unit IV MWF [facility] Last Admin: 11/09/17 11:10 Dose: 10,000 unit Ferric Sodium Gluconate Complex 125 mg/ Sodium Chloride 110 mls @ 110 mls/hr IVPB DAILY [facility] Stop: 11/13/17 14:31 Last Admin: 11/11/17 10:06 Dose: 110 mls/hr Cefepime HCl (Maxipime Iv 1 Gm Premix) 1 gm in 50 mls @ 100 mls/hr IVPB Q24H [facility] Last Admin: 11/11/17 18:48 Dose: 100 mls/hr Linezolid (Zyvox 600mg/300ml D5w) 600 mg in 300 mls @ 200 mls/hr IVPB Q12H [facility] Last Admin: 11/12/17 05:50 Dose: 200 mls/hr Meropenem 500 mg/ Sodium (Chloride) 100 mls @ 100 mls/hr IVPB Q12H [facility] Last Admin: 11/12/17 11:40 Dose: 100 mls/hr Micafungin Sodium 100 mg/ (Sodium Chloride) 100 mls @ 100 mls/hr IV Q24H [facility] Phenylephrine HCl 30 mg/ (Dextrose) 253 mls @ 10.12 mls/hr IV .Q24H PRN; Protocol; 20 MCG/MIN PRN Reason: TITRATE PER MD ORDER Potassium Phosphate 15 mmole/ (Dextrose) 255 mls @ 63 mls/hr IV ONCE ONE Stop: 11/12/17 17:32 Last Admin: 11/12/17 13:17 Dose: 63 mls/hr Lidocaine HCl/Dextrose (Lidocaine 2 Grams In D5w) 2,000 mg in 500 mls @ 15 mls/ hr IV .Q24H TANI; 1 MG/MIN PRN Reason: Protocol Lidocaine HCl (Lidocaine 1%) 100 ml IV ONCE ONE Stop: 11/12/17 13:10 Midazolam HCl (Versed Inj) 2 mg IVP Q4H PRN PRN Reason: Agitation Last Admin: 11/12/17 06:55 Dose: 2 mg Midodrine (Proamatine) 10 mg PO TID [facility]ANI Last Admin: 11/12/17 10:43 Dose: 10 mg Pantoprazole Sodium (Protonix Inj) 40 mg IVP DAILY [facility]ANI Last Admin: 11/12/17 10:42 Dose: 40 mg Vitamin B Complex/Vit C/Folic Acid (Nephro-Aleksandra) 1 tab PO DAILY TANI Last Admin: 11/12/17 10:43 Dose: 1 tab - Labs Labs: 11/12/17 06:00 11/12/17 06:00 PT 13.9 SECONDS (9.7-12.2) H 10/24/17 06:20 INR 1.2 10/24/17 06:20 APTT 57 SECONDS (21-34) H D 10/30/17 06:12
[2017-11-12] MEDS ORDERED: Potassium Phosphate 15 MMOLE in Dextrose 5% In Water 250 ML IV ONE (13:30)
[2017-11-12] MEDS ORDERED: Magnesium Sulfate 1 gm in D5W 1 GM/100 ML BAG IVPB ONE (13:34)
[2017-11-12] MEDS ORDERED: Lidocaine 100 MG in Sodium Chloride 0.9% 100 ML IV ONE (14:00)
[2017-11-12] MEDS ORDERED: Amiodarone 150mg/3 ml vial ONE (14:00)
[2017-11-12] MEDS ORDERED: Lidocaine 2% Inj (20ml) IV ONE (14:06)
[2017-11-12] MEDS: Micafungin 100 MG in Sodium Chloride 0.9% 100 ML IV SCH (14:59)
--- NOTE | 2017-11-12 15:11 | CP.CCUPN ---
<Krishna Brooks - Last Filed: 11/12/17 16:21> CCU Subjective - Physician Review Subjective (Free Text): 11/09/17 08:13 patient seen and examined at bedside R. chest tube intubate, /50 Dialysis today sepsis likely secondary to vre/pseudmonas tube feeds nephro goal 50 family at bedside, discussed in detail 11/12/17 15:29 patient had episode of tach for 6 seconds. Amiodarone drip, lidocaine bolus followed by lidocaine drip and d/c amiodarone placed pads on patient. d/c levophed and added phenylephrine. Mg 1g given 11/12/17 16:21 Vfib. defib @ 200 J. Bolus amiodarone 150, converted CCU Objective - Vital Signs / Intake & Output Vital Signs (Last 4 hours): Vital Signs Temp Pulse Resp BP Pulse Ox 11/12/17 14:15 76 14 109/55 L 100 11/12/17 14:00 74 6 L 100 11/12/17 13:49 72 10 L 89/48 L 100 11/12/17 13:34 75 31 H 82/41 L 100 11/12/17 13:27 77 31 H 77/38 L 100 11/12/17 13:14 84 33 H 89/42 L 100 11/12/17 13:05 83 33 H 89/42 L 100 11/12/17 13:00 57 L 18 99 11/12/17 12:58 60 40 H 138/54 L 98 11/12/17 12:54 107 H 37 H 125/53 L 98 11/12/17 12:45 60 33 H 106/52 L 100 11/12/17 12:40 62 20 106/52 L 98 11/12/17 12:39 57 L 17 121/49 L 95 11/12/17 12:00 98.2 F 87 35 H 100 11/12/17 11:49 84 33 H 118/59 L 100 Intake and Output (Last 8hrs): Intake & Output 11/12/17 11/12/17 11/12/17 06:59 14:59 22:59 Intake Total 700 1542.6 Output Total 230 Balance 700 1312.6 Weight 112 lb Intake: IV 484 Intake, IV Amount 300 658.6 Left Distal Port 263.3 Left Medial Port 300 272.3 Left Proximal Port 23.0 left medial sideport 100 Tube Feeding 400 300 Other 100 Output: Chest Tube Drainage 230 Left Anterior Chest 180 Left Mid-Axillary Chest 0 Right Mid-Axillary Chest 50 Other: # Bowel Movements 0 1 - Physical Exam Head: Positive for: Atraumatic, Normocephalic Extroacular Muscles: Positive for: EOMI. Negative for: Gaze Palsy Conjunctiva: Positive for: Normal Mouth: Positive for: Moist Mucous Membranes, Normal Lips Neck: Positive for: Normal Range of Motion, Other (L IJ) Respiratory/Chest: Positive for: Clear to Auscultation, Other (intubated) Cardiovascular: Positive for: Regular Rate and Rhythm Abdomen: Positive for: Normal Bowel Sounds Upper Extremity: Positive for: Normal Inspection, Capillary Refill < 2s. Negative for: Edema Lower Extremity: Positive for: Normal Inspection, Capillary Refill < 2 s. Negative for: Edema Neurological: Positive for: Speech Normal Psychiatric: Positive for: Alert, Oriented x 3 - Medications Active Medications: Active Medications Generic Name Dose Route Start Last Admin Trade Name Freq PRN Reason Stop Dose Admin Acetaminophen 650 mg 11/06/17 23:47 11/12/17 08:03 Tylenol 650mg/20.3ml Solution Ud PO 650 mg Q4 PRN Administration Temperature Albuterol/Ipratropium 3 ml 11/09/17 14:00 11/12/17 13:37 Duoneb 3 Mg/0.5 Mg (3 Ml) Ud INH 3 ml RQ6 TANI Administration Amiodarone HCl 200 mg 11/05/17 17:17 11/12/17 10:43 Cordarone PO 200 mg BID TANI Administration Epoetin Pepe 10,000 unit 10/22/17 14:30 11/09/17 11:10 Procrit IV 10,000 unit MWF TANI Administration Ferric Sodium Gluconate 110 mls @ 110 mls/hr 11/05/17 14:30 11/11/17 10:06 Complex 125 mg/ Sodium IVPB 11/13/17 14:31 110 mls/hr Chloride DAILY TANI Administration Cefepime HCl 1 gm in 50 mls @ 100 mls/hr 11/05/17 19:00 11/11/17 18:48 Maxipime Iv 1 Gm Premix IVPB 100 mls/hr Q24H TANI Administration Linezolid 600 mg in 300 mls @ 200 mls/hr 11/07/17 18:00 11/12/17 05:50 Zyvox 600mg/300ml D5w IVPB 200 mls/hr Q12H TANI Administration Meropenem 500 mg/ Sodium 100 mls @ 100 mls/hr 11/12/17 11:00 11/12/17 11:40 Chloride IVPB 100 mls/hr Q12H TANI Administration Micafungin Sodium 100 mg/ 100 mls @ 100 mls/hr 11/12/17 13:00 11/12/17 14:59 Sodium Chloride IV 100 mls/hr Q24H TANI Administration Phenylephrine HCl 30 mg/ 253 mls @ 10.12 mls/hr 11/12/17 13:00 11/12/17 13:29 Dextrose IV 98.81 mcg/min .Q24H PRN 50 mls/hr TITRATE PER MD ORDER Titration Protocol 20 MCG/MIN Potassium Phosphate 15 mmole/ 255 mls @ 63 mls/hr 11/12/17 13:30 11/12/17 13: 17 Dextrose IV 11/12/17 17:32 63 mls/hr ONCE ONE Administration Lidocaine HCl/Dextrose 2,000 mg in 500 mls @ 7.5 mls/hr 11/12/17 13:00 13:05 Lidocaine 2 Grams In D5w IV 7.5 mls/hr .Q24H TANI Administration 0.5 MG/MIN Midazolam HCl 2 mg 11/11/17 16:43 11/12/17 06:55 Versed Inj IVP 2 mg Q4H PRN Administration Agitation Midodrine 10 mg 10/26/17 08:33 11/12/17 15:10 Proamatine PO 10 mg TID TANI Administration Pantoprazole Sodium 40 mg 11/08/17 10:30 11/12/17 10:42 Protonix Inj IVP 40 mg DAILY TANI Administration Vitamin B Complex/Vit C/Folic Acid 1 tab 10/12/17 10:00 11/12/17 10:43 Nephro-Aleksandra PO 1 tab DAILY TANI Administration - Patient Studies Lab Studies: Microbiology Studies 11/09/17 16:33 Gram Stain - Final Trachasp Sputum Culture - Final NORMAL ORAL DOT 11/09/17 16:25 Blood Culture - Preliminary Blood NO GROWTH AFTER 48 HOURS 01/19/18 16:55 Blood Culture - Preliminary Blood NO GROWTH AFTER 48 HOURS 11/07/17 14:45 Gram Stain - Final Pleural Fluid Body Fluid Culture - Final No growth. Lab Studies 11/12/17 11/12/17 11/12/17 Range/Units 06:00 06:00 05:23 WBC 5.6 (4.8-10.8) K/uL RBC 3.09 L (4.40-5.90) Mil/uL Hgb 9.4 L (12.0-18.0) g/dL Hct 29.3 L (35.0-51.0) % MCV 94.7 H (80.0-94.0) fL MCH 30.5 (27.0-31.0) pg MCHC 32.2 L (33.0-37.0) g/dL RDW 19.7 H (11.5-14.5) % Plt Count 40 L D (130-400) K/uL MPV 11.1 (7.2-11.7) fL Neut % (Auto) 89.7 H (50.0-75.0) % Lymph % (Auto) 7.5 L (20.0-40.0) % [place] % (Auto) 2.6 (0.0-10.0) % Eos % (Auto) 0.1 (0.0-4.0) % Baso % (Auto) 0.1 (0.0-2.0) % Neut # 5.1 (1.8-7.0) K/uL Lymph # 0.4 L (1.0-4.3) K/uL [place] # 0.1 (0.0-0.8) K/uL Eos # 0.0 (0.0-0.7) K/uL Baso # 0.0 (0.0-0.2) K/uL Neutrophils % (Manual) 93 H (50-75) % Band Neutrophils % 1 (0-2) % Lymphocytes % (Manual) 4 L (20-40) % Monocytes % (Manual) 2 (0-10) % Toxic Granulation Present Platelet Estimate Normal (NORMAL) Polychromasia Slight Hypochromasia (manual) Slight Poikilocytosis (manual Slight Basophilic Stippling Slight Anisocytosis (manual) Slight Macrocytosis (manual) Slight Target Cells Slight Ovalocytes Slight [place] Cells Slight Puncture Site R bra pCO2 38 (35-45) mm/Hg pO2 166 H (80-100) mm/Hg HCO3 26.7 (21-28) mmol/L ABG pH 7.45 (7.35-7.45) ABG Total CO2 27.6 (22-28) mmol/L ABG O2 Saturation 98.5 H (95-98) % ABG Base Excess 2.3 (-2.0-3.0) mmol/L ABG Hemoglobin 9.6 L (11.7-17.4) g/dL ABG Carboxyhemoglobin 0.9 (0.5-1.5) % POC ABG HHb (Measured) 1.5 (0.0-5.0) % ABG Methemoglobin 1.0 (0.0-3.0) % Scar Test Na ABG Potassium (3.6-5.2) mmol/L A-a O2 Difference 500.0 mm/Hg Respiratory Index 3.0 Hgb O2 Saturation 96.6 (95.0-98.0) % Sodium 129 L (132-148) mmol/l Chloride 93 L (98-107) mmol/L Glucose (75-110) mg/dl Lactate (0.7-2.1) mmol/L Vent Mode Prvc Mechanical Rate 18 FiO2 100.0 % Tidal Volume 400 PEEP 5 Potassium 3.7 (3.6-5.2) mmol/L Carbon Dioxide 28 (22-30) mmol/L Anion Gap 12 (10-20) BUN 33 H (9-20) mg/dL Creatinine 3.1 H (0.8-1.5) mg/dL Est GFR ( Amer) 24 Est GFR (Non-Af Amer) 20 Random Glucose 86 (75-110) mg/dL Calcium 7.9 L (8.6-10.4) mg/dl Phosphorus 2.0 L (2.5-4.5) mg/dL Magnesium 1.9 (1.6-2.3) mg/dL Total Bilirubin 1.1 (0.2-1.3) mg/dL AST 48 (17-59) U/L ALT 35 (21-72) U/L Alkaline Phosphatase 206 H D (38-126) U/L Total Protein 5.9 L (6.3-8.3) g/dL Albumin 2.8 L D (3.5-5.0) g/dL Globulin 3.1 (2.2-3.9) gm/dL Albumin/Globulin Ratio 0.9 L (1.0-2.1) Arterial Blood Potassium (3.6-5.2) mmol/L 11/11/17 Range/Units 22:15 WBC (4.8-10.8) K/uL RBC (4.40-5.90) Mil/uL Hgb (12.0-18.0) g/dL Hct (35.0-51.0) % MCV (80.0-94.0) fL MCH (27.0-31.0) pg MCHC (33.0-37.0) g/dL RDW (11.5-14.5) % Plt Count (130-400) K/uL MPV (7.2-11.7) fL Neut % (Auto) (50.0-75.0) % Lymph % (Auto) (20.0-40.0) % [place] % (Auto) (0.0-10.0) % Eos % (Auto) (0.0-4.0) % Baso % (Auto) (0.0-2.0) % Neut # (1.8-7.0) K/uL Lymph # (1.0-4.3) K/uL [place] # (0.0-0.8) K/uL Eos # (0.0-0.7) K/uL Baso # (0.0-0.2) K/uL Neutrophils % (Manual) (50-75) % Band Neutrophils % (0-2) % Lymphocytes % (Manual) (20-40) % Monocytes % (Manual) (0-10) % Toxic Granulation Platelet Estimate (NORMAL) Polychromasia Hypochromasia (manual) Poikilocytosis (manual Basophilic Stippling Anisocytosis (manual) Macrocytosis (manual) Target Cells Ovalocytes [place] Cells Puncture Site Rba pCO2 35 (35-45) mm/Hg pO2 60 L (80-100) mm/Hg HCO3 22.3 (21-28) mmol/L ABG pH 7.39 (7.35-7.45) ABG Total CO2 22.3 (22-28) mmol/L ABG O2 Saturation 95.1 (95-98) % ABG Base Excess -3.1 L (-2.0-3.0) mmol/L ABG Hemoglobin (11.7-17.4) g/dL ABG Carboxyhemoglobin (0.5-1.5) % POC ABG HHb (Measured) (0.0-5.0) % ABG Methemoglobin (0.0-3.0) % Scar Test Pos ABG Potassium 3.3 L (3.6-5.2) mmol/L A-a O2 Difference 253.0 mm/Hg Respiratory Index 4.2 Hgb O2 Saturation (95.0-98.0) % Sodium 134.0 (132-148) mmol/l Chloride 101.0 (98-107) mmol/L Glucose 117 H (75-110) mg/dl Lactate 2.8 H (0.7-2.1) mmol/L Vent Mode Prvc Mechanical Rate 18 FiO2 50.0 % Tidal Volume 400 PEEP 5 Potassium (3.6-5.2) mmol/L Carbon Dioxide (22-30) mmol/L Anion Gap (10-20) BUN (9-20) mg/dL Creatinine (0.8-1.5) mg/dL Est GFR ( Amer) Est GFR (Non-Af Amer) Random Glucose (75-110) mg/dL Calcium (8.6-10.4) mg/dl Phosphorus (2.5-4.5) mg/dL Magnesium (1.6-2.3) mg/dL Total Bilirubin (0.2-1.3) mg/dL AST (17-59) U/L ALT (21-72) U/L Alkaline Phosphatase (38-126) U/L Total Protein (6.3-8.3) g/dL Albumin (3.5-5.0) g/dL Globulin (2.2-3.9) gm/dL Albumin/Globulin Ratio (1.0-2.1) Arterial Blood Potassium 3.3 L (3.6-5.2) mmol/L Laboratory Results - last 24 hr 11/11/17 11/12/17 11/12/17 22:15 05:23 06:00 WBC 5.6 RBC 3.09 L Hgb 9.4 L Hct 29.3 L MCV 94.7 H MCH 30.5 MCHC 32.2 L RDW 19.7 H Plt Count 40 L D MPV 11.1 Neut % (Auto) 89.7 H Lymph % (Auto) 7.5 L [place] % (Auto) 2.6 Eos % (Auto) 0.1 Baso % (Auto) 0.1 Neut # 5.1 Lymph # 0.4 L [place] # 0.1 Eos # 0.0 Baso # 0.0 Neutrophils % (Manual) 93 H Band Neutrophils % 1 Lymphocytes % (Manual) 4 L Monocytes % (Manual) 2 Toxic Granulation Present Platelet Estimate Normal Polychromasia Slight Hypochromasia (manual) Slight Poikilocytosis (manual Slight Basophilic Stippling Slight Anisocytosis (manual) Slight Macrocytosis (manual) Slight Target Cells Slight Ovalocytes Slight [place] Cells Slight Puncture Site Rba R bra pCO2 35 38 pO2 60 L 166 H HCO3 22.3 26.7 ABG pH 7.39 7.45 ABG Total CO2 22.3 27.6 ABG O2 Saturation 95.1 98.5 H ABG Base Excess -3.1 L 2.3 ABG Hemoglobin 9.6 L ABG Carboxyhemoglobin 0.9 POC ABG HHb (Measured) 1.5 ABG Methemoglobin 1.0 Scar Test Pos Na ABG Potassium 3.3 L A-a O2 Difference 253.0 500.0 Respiratory Index 4.2 3.0 Hgb O2 Saturation 96.6 Sodium 134.0 Chloride 101.0 Glucose 117 H Lactate 2.8 H Vent Mode Prvc Prvc Mechanical Rate 18 18 FiO2 50.0 100.0 Tidal Volume 400 400 PEEP 5 5 Potassium Carbon Dioxide Anion Gap BUN Creatinine Est GFR ( Amer) Est GFR (Non-Af Amer) Random Glucose Calcium Phosphorus Magnesium Total Bilirubin AST ALT Alkaline Phosphatase Total Protein Albumin Globulin Albumin/Globulin Ratio Arterial Blood Potassium 3.3 L 11/12/17 06:00 WBC RBC Hgb Hct MCV MCH MCHC RDW Plt Count MPV Neut % (Auto) Lymph % (Auto) [place] % (Auto) Eos % (Auto) Baso % (Auto) Neut # Lymph # [place] # Eos # Baso # Neutrophils % (Manual) Band Neutrophils % Lymphocytes % (Manual) Monocytes % (Manual) Toxic Granulation Platelet Estimate Polychromasia Hypochromasia (manual) Poikilocytosis (manual Basophilic Stippling Anisocytosis (manual) Macrocytosis (manual) Target Cells Ovalocytes [place] Cells Puncture Site pCO2 pO2 HCO3 ABG pH ABG Total CO2 ABG O2 Saturation ABG Base Excess ABG Hemoglobin ABG Carboxyhemoglobin POC ABG HHb (Measured) ABG Methemoglobin Scar Test ABG Potassium A-a O2 Difference Respiratory Index Hgb O2 Saturation Sodium 129 L Chloride 93 L Glucose Lactate Vent Mode Mechanical Rate FiO2 Tidal Volume PEEP Potassium 3.7 Carbon Dioxide 28 Anion Gap 12 BUN 33 H Creatinine 3.1 H Est GFR ( Amer) 24 Est GFR (Non-Af Amer) 20 Random Glucose 86 Calcium 7.9 L Phosphorus 2.0 L Magnesium 1.9 Total Bilirubin 1.1 AST 48 ALT 35 Alkaline Phosphatase 206 H D Total Protein 5.9 L Albumin 2.8 L D Globulin 3.1 Albumin/Globulin Ratio 0.9 L Arterial Blood Potassium Critical Care Progress Note - Nutrition Nutrition: Nutrition Category Date Time Status Renal Diet [DIET] Diets 10/27/17 Breakfast Active Assessment/Plan - Assessment and Plan (Free Text) Assessment: 77M respiratory distress 2/2 fluid overload/pneumonia. Neuro: Alert and oriented on vent. versed prn for agitation. Pulm: Acute respiratory failure secondary to pulmonary edema. one right pigtail , two left pigtails, have both drained the patient's lungs effectively. With aggressive dialysis the patient has been effectively dried out. CV: Relatively hypotensive, but asymptomatic. Continue midodrine. Stopping Flomax for any possibility of contributing to hypotension. CHF with ejection fraction of 15%. Vfib. amiodarone, lidocaine, defibrilated. Hem: anemia of critical illness. Renal: Anuric on hemodialysis, resuming MWF schedule. Endo: No acute issues. GI: Nothing by mouth, Nepro at 50. severe protein calorie malnutrition with cachexia. 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 DVT proph - Lovenox GI proph - Protonix sanon for strict I/O's during acute illness Code status - full code <Sandy Perez - Last Filed: 11/15/17 02:43> CCU Objective - Vital Signs / Intake & Output Vital Signs (Last 4 hours): Vital Signs Temp Pulse Resp BP 11/15/17 02:00 60 27 H 11/15/17 01:45 59/23 L 11/15/17 00:45 60 27 H 63/24 L 11/15/17 00:00 99.8 F H 11/14/17 23:45 60 24 61/30 L 11/14/17 22:45 60 19 69/25 L Intake and Output (Last 8hrs): Intake & Output 11/14/17 11/14/17 11/15/17 14:59 22:59 06:59 Intake Total 2780.26 3199.2 809.6 Output Total 0 510 Balance 2780.26 2689.2 809.6 Intake: IV 1258 1250 Intake, IV Amount 1322.26 1809.2 729.6 Left Distal Port 375.06 600 300 Left Medial Port 720 720 360 Left Proximal Port 120 120 60 Right Hand 100 350 left medial sideport 7.2 19.2 9.6 Tube Feeding 100 140 80 Other 100 Output: Chest Tube Drainage 510 Left Lower Anterior Chest 150 Left Mid-Axillary Chest 10 Right Mid-Axillary Chest 350 Urine 0 0 Urine, Voided 0 0 Other: # Bowel Movements 0 0 - Medications Active Medications: Active Medications Generic Name Dose Route Start Last Admin Trade Name Freq PRN Reason Stop Dose Admin Acetaminophen 650 mg 11/06/17 23:47 11/14/17 12:06 Tylenol 650mg/20.3ml Solution Ud PO 650 mg Q4 PRN Administration Temperature Albuterol/Ipratropium 3 ml 11/09/17 14:00 11/15/17 02:08 Duoneb 3 Mg/0.5 Mg (3 Ml) Ud INH 3 ml RQ6 TANI Administration Amiodarone HCl 200 mg 11/05/17 17:17 11/14/17 18:07 Cordarone PO 200 mg BID TANI Administration Epoetin Pepe 10,000 unit 10/22/17 14:30 11/14/17 15:10 Procrit IV 10,000 unit MWF TANI Administration Cefepime HCl 1 gm in 50 mls @ 100 mls/hr 11/05/17 19:00 11/14/17 18:07 Maxipime Iv 1 Gm Premix IVPB 100 mls/hr Q24H TANI Administration Linezolid 600 mg in 300 mls @ 200 mls/hr 11/07/17 18:00 11/14/17 17:24 Zyvox 600mg/300ml D5w IVPB 200 mls/hr Q12H TANI Administration Meropenem 500 mg/ Sodium 100 mls @ 100 mls/hr 11/12/17 11:00 11/14/17 22:31 Chloride IVPB 100 mls/hr Q12H TANI Administration Micafungin Sodium 100 mg/ 100 mls @ 100 mls/hr 11/12/17 13:00 11/14/17 12:42 Sodium Chloride IV 100 mls/hr Q24H TANI Administration Lidocaine HCl/Dextrose 2,000 mg in 500 mls @ 15 mls/hr 11/12/17 16:00 17:22 Lidocaine 2 Grams In D5w IV 15 mls/hr .Q24H TANI Administration 1 MG/MIN Phenylephrine HCl 120 mg/ 1,000 mls @ 10 mls/hr 11/13/17 18:30 11/14/17 19:09 Sodium Chloride IV 180 mcg/min .Q24H PRN 90 mls/hr TITRATE PER MD ORDER Administration Protocol 20 MCG/MIN Vasopressin 40 units/ Sodium 40 mls @ 2.4 mls/hr 11/14/17 13:00 11/14/17 13: 13 Chloride IV 0.04 units/min .[id number] TANI 2.4 mls/hr Protocol Administration 0.04 UNITS/MIN Norepinephrine Bitartrate 16 1,000 mls @ 15 mls/hr 11/14/17 16:02 11/14/17 19 :19 mg/ Sodium Chloride IV 20 mcg/min .Q24H PRN 75 mls/hr TITRATE PER MD ORDER Administration Protocol 4 MCG/MIN Midazolam HCl 2 mg 11/11/17 16:43 11/13/17 14:58 Versed Inj IVP 2 mg Q4H PRN Administration Agitation Midodrine 10 mg 10/26/17 08:33 11/14/17 17:24 Proamatine PO 10 mg TID TANI Administration Pantoprazole Sodium 40 mg 11/08/17 10:30 11/14/17 10:26 Protonix Inj IVP 40 mg DAILY TANI Administration Vitamin B Complex/Vit C/Folic Acid 1 tab 10/12/17 10:00 11/14/17 10:27 Nephro-Aleksandra PO 1 tab DAILY TANI Administration - Patient Studies Lab Studies: Microbiology Studies 11/09/17 16:25 Blood Culture - Final Blood NO GROWTH AFTER 5 DAYS Gram Stain - Final TEST NOT PERFORMED 11/09/17 16:55 Blood Culture - Final Blood NO GROWTH AFTER 5 DAYS Gram Stain - Final TEST NOT PERFORMED Lab Studies 11/14/17 11/14/17 11/14/17 Range/Units 06:22 06:22 05:40 WBC 6.1 (4.8-10.8) K/uL RBC 2.87 L (4.40-5.90) Mil/uL Hgb 8.8 L (12.0-18.0) g/dL Hct 27.4 L (35.0-51.0) % MCV 95.5 H (80.0-94.0) fL MCH 30.6 (27.0-31.0) pg MCHC 32.0 L (33.0-37.0) g/dL RDW 19.8 H (11.5-14.5) % Plt Count 31 L (130-400) K/uL MPV 9.6 (7.2-11.7) fL Neut % (Auto) 88.0 H (50.0-75.0) % Lymph % (Auto) 6.0 L (20.0-40.0) % [place] % (Auto) 6.0 (0.0-10.0) % Eos % (Auto) 0.0 (0.0-4.0) % Baso % (Auto) 0.0 (0.0-2.0) % Neut # 5.3 (1.8-7.0) K/uL Lymph # 0.4 L (1.0-4.3) K/uL [place] # 0.4 (0.0-0.8) K/uL Eos # 0.0 (0.0-0.7) K/uL Baso # 0.0 (0.0-0.2) K/uL Neutrophils % (Manual) 86 H (50-75) % Band Neutrophils % 4 H (0-2) % Lymphocytes % (Manual) 6 L (20-40) % Monocytes % (Manual) 4 (0-10) % Nucleated RBC % 2 H (0-0) % Platelet Estimate Markedly decreased L (NORMAL) Poikilocytosis (manual Slight Anisocytosis (manual) Moderate [place] Cells Moderate Retic Count 0.9 (0.5-1.5) % Puncture Site R bra pCO2 31 L (35-45) mm/Hg pO2 252 H (80-100) mm/Hg HCO3 13.9 L (21-28) mmol/L ABG pH 7.21 L (7.35-7.45) ABG Total CO2 13.4 L (22-28) mmol/L ABG O2 Saturation 98.9 H (95-98) % ABG Base Excess -14.2 L (-2.0-3.0) mmol/L ABG Hemoglobin 7.3 L (11.7-17.4) g/dL ABG Carboxyhemoglobin 0.4 L (0.5-1.5) % POC ABG HHb (Measured) 1.1 (0.0-5.0) % ABG Methemoglobin 1.5 (0.0-3.0) % Scar Test Na A-a O2 Difference 422.0 mm/Hg Respiratory Index 1.7 Hgb O2 Saturation 97.0 (95.0-98.0) % Vent Mode Prvc Mechanical Rate 18 FiO2 100.0 % Tidal Volume 400 PEEP 5 Sodium 124 L (132-148) mmol/L Potassium 5.8 H (3.6-5.2) mmol/L Chloride 95 L (98-107) mmol/L Carbon Dioxide 15 L (22-30) mmol/L Anion Gap 19 (10-20) BUN 50 H (9-20) mg/dL Creatinine 3.4 H (0.8-1.5) mg/dL Est GFR ( Amer) 21 Est GFR (Non-Af Amer) 18 Random Glucose 132 H (75-110) mg/dL Calcium 6.4 L (8.6-10.4) mg/dl Magnesium 1.8 (1.6-2.3) mg/dL Ferritin 6540.0 ng/mL Total Bilirubin 1.2 (0.2-1.3) mg/dL AST 192 H D (17-59) U/L ALT 75 H D (21-72) U/L Alkaline Phosphatase 125 (38-126) U/L Total Protein 5.4 L (6.3-8.3) g/dL Albumin 2.2 L (3.5-5.0) g/dL Globulin 3.1 (2.2-3.9) gm/dL Albumin/Globulin Ratio 0.7 L (1.0-2.1) Vitamin B12 612 (239-931) pg/mL Folate > 20.0 ng/mL Laboratory Results - last 24 hr 11/14/17 11/14/17 11/14/17 05:40 06:22 06:22 WBC 6.1 RBC 2.87 L Hgb 8.8 L Hct 27.4 L MCV 95.5 H MCH 30.6 MCHC 32.0 L RDW 19.8 H Plt Count 31 L MPV 9.6 Neut % (Auto) 88.0 H Lymph % (Auto) 6.0 L [place] % (Auto) 6.0 Eos % (Auto) 0.0 Baso % (Auto) 0.0 Neut # 5.3 Lymph # 0.4 L [place] # 0.4 Eos # 0.0 Baso # 0.0 Neutrophils % (Manual) 86 H Band Neutrophils % 4 H Lymphocytes % (Manual) 6 L Monocytes % (Manual) 4 Nucleated RBC % 2 H Platelet Estimate Markedly decreased L Poikilocytosis (manual Slight Anisocytosis (manual) Moderate [place] Cells Moderate Retic Count 0.9 Puncture Site R bra pCO2 31 L pO2 252 H HCO3 13.9 L ABG pH 7.21 L ABG Total CO2 13.4 L ABG O2 Saturation 98.9 H ABG Base Excess -14.2 L ABG Hemoglobin 7.3 L ABG Carboxyhemoglobin 0.4 L POC ABG HHb (Measured) 1.1 ABG Methemoglobin 1.5 Scar Test Na A-a O2 Difference 422.0 Respiratory Index 1.7 Hgb O2 Saturation 97.0 Vent Mode Prvc Mechanical Rate 18 FiO2 100.0 Tidal Volume 400 PEEP 5 Sodium 124 L Potassium 5.8 H Chloride 95 L Carbon Dioxide 15 L Anion Gap 19 BUN 50 H Creatinine 3.4 H Est GFR ( Amer) 21 Est GFR (Non-Af Amer) 18 Random Glucose 132 H Calcium 6.4 L Magnesium 1.8 Ferritin 6540.0 Total Bilirubin 1.2 AST 192 H D ALT 75 H D Alkaline Phosphatase 125 Total Protein 5.4 L Albumin 2.2 L Globulin 3.1 Albumin/Globulin Ratio 0.7 L Vitamin B12 612 Folate > 20.0 Critical Care Progress Note - Nutrition Nutrition: Nutrition Category Date Time Status Renal Diet [DIET] Diets 10/27/17 Breakfast Active Attending/Attestation - Attestation I have personally seen and examined this patient.: Yes I have fully participated in the care of the patient.: Yes I have reviewed all pertinent clinical information: Yes Notes (Text): Agree with the resident notes, discussion was made to during the rounds. Labs reviewed Continue the current treatment
[2017-11-12] MEDS: Lidocaine 2 Grams in D5W 2,000 MG/500 ML BAG IV SCH (16:00)
[2017-11-12] MEDS: Ferric Sodium Gluconat Complex 125 MG in Sodium Chloride 0.9% 100 ML IVPB SCH (16:17)
[2017-11-12] MEDS: Epoetin Alfa 10,000 unit/ml Dialysis IV SCH (16:38)
[2017-11-12] MEDS: Cefepime IV 1 gm in Dextrose 1 GM/50 ML BAG IVPB SCH (19:57)
[2017-11-13] MEDS: Acetaminophen 650mg/20.3ml solution UD PO PRN (00:04)
[2017-11-13] MEDS: Albuterol-Ipratrop 3 mg / 0.5 (3 ml) UD INH SCH ×4 (01:50→19:09)
[2017-11-13] MEDS: Phenylephrine 30 MG in Dextrose 5% In Water 250 ML IV PRN ×2 (02:15→05:56)
[2017-11-13 05:40] LABS: ARTERIAL BLOOD GAS HCO3 19.5 mmol/L (21-28); ARTERIAL BLOOD GAS HEMOGLOBIN 10.3 g/dL (11.7-17.4); ARTERIAL BLOOD GAS PCO2 36 mm/Hg (35-45); ARTERIAL BLOOD GAS PH 7.32 (7.35-7.45); ARTERIAL BLOOD GAS PO2 103 mm/Hg (80-100); ARTERIAL BLOOD GAS TCO2 19.6 mmol/L (22-28)
[2017-11-13] MEDS: Linezolid 600 mg in D5W 300 ml 600 MG/300 ML BAG IVPB SCH ×2 (05:56→17:14)
[2017-11-13 06:47] LABS: BASO % 0.5 % (0.0-2.0); HEMOGLOBIN 9.6 g/dL (12.0-18.0); LYMPH # 0.4 K/uL (1.0-4.3); LYMPH % 5.6 % (20.0-40.0); MEAN CORPUSCULAR HEMOGLOBIN 30.3 pg (27.0-31.0); MEAN CORPUSCULAR HGB CONC 31.9 g/dL (33.0-37.0); MEAN PLATELET VOLUME 10.9 fL (7.2-11.7); MONO # 0.3 K/uL (0.0-0.8); NEUT # 6.1 K/uL (1.8-7.0); NEUT % 88.9 % (50.0-75.0); NRBC % 1.4 % (0.0-2.0); RBC 3.17 Mil/uL (4.40-5.90); RED CELL DISTRIBUTION WIDTH 19.6 % (11.5-14.5); WHITE BLOOD COUNT 6.8 K/uL (4.8-10.8)
[2017-11-13 06:57] LABS: ALB/GLOB RATIO 0.8 (1.0-2.1); ALBUMIN 2.6 g/dL (3.5-5.0); CALCIUM 7.3 mg/dl (8.6-10.4); MAGNESIUM 2.1 mg/dL (1.6-2.3)
[2017-11-13 07:02] LABS: PLATELET COUNT 30 K/uL (130-400)
--- NOTE | 2017-11-13 08:52 | RAD ---
HISTORY: f-up COMPARISON: 11/11/2017. FINDINGS: The endotracheal tube terminates at the jackeline. The right dialysis catheter terminates in the right atrium. The left IJV line terminates in the SVC. The nasogastric tube terminates in the stomach. LUNGS: There is extensive confluent airspace disease in both lungs, worse since the prior examination. PLEURA: Moderate pleural effusions. Persistent small left apical pneumothorax. Stable position of bilateral chest tubes. CARDIOVASCULAR: Normal. OSSEOUS STRUCTURES: No significant abnormalities. VISUALIZED UPPER ABDOMEN: Normal. OTHER FINDINGS: None. IMPRESSION: 1. Persistent small left apical pneumothorax. 2. Extensive confluent airspace disease/edema in both lungs, worse since the prior examination and moderate pleural effusions.
[2017-11-13 08:57] LABS: BANDS 3 % (0-2); LYMPHOCYTE 5 % (20-40); MONOCYTE 5 % (0-10); NEUTROPHIL 87 % (50-75); PLATELET ESTIMATE MARKEDLY DECREASED (NORMAL); TOTAL CELLS COUNTED 100
[2017-11-13 08:58] LABS: ANISOCYTOSIS MODERATE; HYPOCHROMIC SLIGHT; POIKILOCYTOSIS SLIGHT; POLYCHROMIC SLIGHT
[2017-11-13 08:59] LABS: BURR CELLS SLIGHT; LARGE PLATELETS PRESENT; OVALOCYTES SLIGHT
[2017-11-13 09:02] LABS: TARGET CELLS SLIGHT
[2017-11-13] MEDS: Phenylephrine 30 MG in Sodium Chloride 0.9% 247 ML IV PRN ×3 (09:16→16:12)
[2017-11-13] MEDS: Multivitamin Vitamin B Complex (Nephro-Vite) Tab PO SCH (09:58)
[2017-11-13] MEDS: Midazolam 2 MG/2 ML VIAL IVP PRN ×2 (09:58→14:58)
--- NOTE | 2017-11-13 11:02 | CP.CCUPN ---
<Krishna Brooks - Last Filed: 11/13/17 18:14> CCU Subjective - Physician Review Subjective (Free Text): 11/12/17 15:29 patient had episode of tach for 6 seconds. Amiodarone drip, lidocaine bolus followed by lidocaine drip and d/c amiodarone placed pads on patient. d/c levophed and added phenylephrine. Mg 1g given 11/12/17 16:21 Vfib. defib @ 200 J. Bolus amiodarone 150, converted 11/13/17 18:12 Patient seen and examined at bedside intubated bilateral chest tiubes pneumo resolving pads on patient bcause of episode of Vfib family at bedisde informed of poor prognosis CCU Objective - Vital Signs / Intake & Output Vital Signs (Last 4 hours): Vital Signs Temp Pulse Pulse Resp BP BP Pulse Ox 11/13/17 10:45 103/64 11/13/17 10:30 92/58 L 11/13/17 10:27 76 31 H 92/58 L 100 11/13/17 10:22 76 30 H 86/51 L 100 11/13/17 10:20 76 29 H 87/54 L 100 11/13/17 10:15 87/54 L 11/13/17 10:00 93/51 L 11/13/17 09:58 60 39 H 93/51 L 100 11/13/17 09:52 59 L 37 H 102/49 L 99 11/13/17 09:45 102/49 L 11/13/17 09:30 97.4 F L 60 39 H 96/56 L 100 11/13/17 09:28 60 39 H 96/56 L 97 11/13/17 09:25 97.4 F L 60 39 H 98/56 L 11/13/17 09:16 60 34 H 98/56 L 98 11/13/17 09:00 60 38 H 99 11/13/17 08:58 60 38 H 98/56 L 99 11/13/17 08:37 60 36 H 93/58 L 99 11/13/17 08:00 98.1 F 60 36 H 95 11/13/17 07:58 60 38 H 102/56 L 94 L 11/13/17 07:28 60 37 H 105/54 L 94 L Intake and Output (Last 8hrs): Intake & Output 11/12/17 11/13/17 11/13/17 22:59 06:59 14:59 Intake Total 1803.8 1186 370 Output Total 510 750 Balance 1293.8 436 370 Weight 110 lb 9.6 oz Intake: IV 498 506 0 Intake, IV Amount 1205.8 680 370 Left Distal Port 613.3 Left Medial Port 320 560 310 Left Proximal Port 112.5 120 60 left medial sideport 160 Tube Feeding 50 0 0 Other 50 Output: Chest Tube Drainage 510 750 Left Lower Anterior Chest 40 60 Left Mid-Axillary Chest 220 240 Right Mid-Axillary Chest 250 450 Other: # Bowel Movements 0 0 - Physical Exam Head: Positive for: Atraumatic, Normocephalic Extroacular Muscles: Positive for: EOMI. Negative for: Gaze Palsy Conjunctiva: Positive for: Normal Mouth: Positive for: Moist Mucous Membranes, Normal Lips Neck: Positive for: Normal Range of Motion, Other (L IJ) Respiratory/Chest: Positive for: Clear to Auscultation, Other (intubated) Cardiovascular: Positive for: Regular Rate and Rhythm Abdomen: Positive for: Normal Bowel Sounds Upper Extremity: Positive for: Normal Inspection, Capillary Refill < 2s. Negative for: Edema Lower Extremity: Positive for: Normal Inspection, Capillary Refill < 2 s. Negative for: Edema Neurological: Positive for: Speech Normal Psychiatric: Positive for: Alert, Oriented x 3 - Medications Active Medications: Active Medications Generic Name Dose Route Start Last Admin Trade Name Freq PRN Reason Stop Dose Admin Acetaminophen 650 mg 11/06/17 23:47 11/13/17 00:04 Tylenol 650mg/20.3ml Solution Ud PO 650 mg Q4 PRN Administration Temperature Albuterol/Ipratropium 3 ml 11/09/17 14:00 11/13/17 07:52 Duoneb 3 Mg/0.5 Mg (3 Ml) Ud INH 3 ml RQ6 TANI Administration Amiodarone HCl 200 mg 11/05/17 17:17 11/13/17 09:58 Cordarone PO 200 mg BID TANI Administration Epoetin Pepe 10,000 unit 10/22/17 14:30 11/12/17 16:38 Procrit IV 10,000 unit MWF TANI Administration Ferric Sodium Gluconate 110 mls @ 110 mls/hr 11/05/17 14:30 11/12/17 16:17 Complex 125 mg/ Sodium IVPB 11/13/17 14:31 110 mls/hr Chloride DAILY TANI Administration Cefepime HCl 1 gm in 50 mls @ 100 mls/hr 11/05/17 19:00 11/12/17 19:57 Maxipime Iv 1 Gm Premix IVPB 100 mls/hr Q24H TANI Administration Linezolid 600 mg in 300 mls @ 200 mls/hr 11/07/17 18:00 11/13/17 05:56 Zyvox 600mg/300ml D5w IVPB 200 mls/hr Q12H TANI Administration Meropenem 500 mg/ Sodium 100 mls @ 100 mls/hr 11/12/17 11:00 11/12/17 23:31 Chloride IVPB 100 mls/hr Q12H TANI Administration Micafungin Sodium 100 mg/ 100 mls @ 100 mls/hr 11/12/17 13:00 11/12/17 14:59 Sodium Chloride IV 100 mls/hr Q24H TANI Administration Lidocaine HCl/Dextrose 2,000 mg in 500 mls @ 15 mls/hr 11/12/17 16:00 16:00 Lidocaine 2 Grams In D5w IV 15 mls/hr .Q24H TANI Administration 1 MG/MIN Phenylephrine HCl 30 mg/ 250 mls @ 10 mls/hr 11/13/17 08:30 11/13/17 09:17 Sodium Chloride IV 160 mcg/min .Q24H PRN 80 mls/hr TITRATE PER MD ORDER Titration Protocol 20 MCG/MIN Midazolam HCl 2 mg 11/11/17 16:43 11/13/17 09:58 Versed Inj IVP 2 mg Q4H PRN Administration Agitation Midodrine 10 mg 10/26/17 08:33 11/13/17 09:58 Proamatine PO 10 mg TID TANI Administration Pantoprazole Sodium 40 mg 11/08/17 10:30 11/12/17 10:42 Protonix Inj IVP 40 mg DAILY TANI Administration Vitamin B Complex/Vit C/Folic Acid 1 tab 10/12/17 10:00 11/13/17 09:58 Nephro-Aleksandra PO 1 tab DAILY TANI Administration - Patient Studies Lab Studies: Microbiology Studies 11/09/17 16:25 Blood Culture - Preliminary Blood NO GROWTH AFTER 3 DAYS 11/09/17 16:55 Blood Culture - Preliminary Blood NO GROWTH AFTER 3 DAYS 11/09/17 16:33 Gram Stain - Final Trachasp Sputum Culture - Final NORMAL ORAL DOT Lab Studies 11/13/17 11/13/17 11/13/17 Range/Units 06:27 06:27 05:07 WBC 6.8 (4.8-10.8) K/uL RBC 3.17 L (4.40-5.90) Mil/uL Hgb 9.6 L (12.0-18.0) g/dL Hct 30.1 L (35.0-51.0) % MCV 95.0 H (80.0-94.0) fL MCH 30.3 (27.0-31.0) pg MCHC 31.9 L (33.0-37.0) g/dL RDW 19.6 H (11.5-14.5) % Plt Count 30 L* D (130-400) K/uL MPV 10.9 (7.2-11.7) fL Neut % (Auto) 88.9 H (50.0-75.0) % Lymph % (Auto) 5.6 L (20.0-40.0) % [place] % (Auto) 5.0 (0.0-10.0) % Eos % (Auto) 0.0 (0.0-4.0) % Baso % (Auto) 0.5 (0.0-2.0) % Neut # 6.1 (1.8-7.0) K/uL Lymph # 0.4 L (1.0-4.3) K/uL [place] # 0.3 (0.0-0.8) K/uL Eos # 0.0 (0.0-0.7) K/uL Baso # 0.0 (0.0-0.2) K/uL Neutrophils % (Manual) 87 H (50-75) % Band Neutrophils % 3 H (0-2) % Lymphocytes % (Manual) 5 L (20-40) % Monocytes % (Manual) 5 (0-10) % Platelet Estimate Markedly decreased L (NORMAL) Large Platelets Present Polychromasia Slight Hypochromasia (manual) Slight Poikilocytosis (manual Slight Anisocytosis (manual) Moderate Macrocytosis (manual) Slight Target Cells Slight Ovalocytes Slight Duc Cells Slight Puncture Site Rb pCO2 36 (35-45) mm/Hg pO2 103 H (80-100) mm/Hg HCO3 19.5 L (21-28) mmol/L ABG pH 7.32 L (7.35-7.45) ABG Total CO2 19.6 L (22-28) mmol/L ABG O2 Saturation 98.0 (95-98) % ABG Base Excess -6.9 L (-2.0-3.0) mmol/L ABG Hemoglobin 10.3 L (11.7-17.4) g/dL ABG Carboxyhemoglobin 1.0 (0.5-1.5) % POC ABG HHb (Measured) 2.0 (0.0-5.0) % ABG Methemoglobin 1.2 (0.0-3.0) % Scar Test Na A-a O2 Difference 565.0 mm/Hg Respiratory Index 5.5 Hgb O2 Saturation 95.8 (95.0-98.0) % Vent Mode Prvc Mechanical Rate 18 FiO2 100.0 % Tidal Volume 400 PEEP 5 Sodium 120 L* (132-148) mmol/L Potassium 4.4 (3.6-5.2) mmol/L Chloride 89 L (98-107) mmol/L Carbon Dioxide 19 L (22-30) mmol/L Anion Gap 16 (10-20) BUN 57 H (9-20) mg/dL Creatinine 4.3 H (0.8-1.5) mg/dL Est GFR ( Amer) 16 Est GFR (Non-Af Amer) 13 Random Glucose 98 (75-110) mg/dL Calcium 7.3 L (8.6-10.4) mg/dl Phosphorus 3.5 (2.5-4.5) mg/dL Magnesium 2.1 (1.6-2.3) mg/dL Total Bilirubin 2.4 H (0.2-1.3) mg/dL AST 69 H D (17-59) U/L ALT 43 (21-72) U/L Alkaline Phosphatase 173 H (38-126) U/L Total Protein 5.8 L (6.3-8.3) g/dL Albumin 2.6 L (3.5-5.0) g/dL Globulin 3.2 (2.2-3.9) gm/dL Albumin/Globulin Ratio 0.8 L (1.0-2.1) Laboratory Results - last 24 hr 11/13/17 11/13/17 11/13/17 05:07 06:27 06:27 WBC 6.8 RBC 3.17 L Hgb 9.6 L Hct 30.1 L MCV 95.0 H MCH 30.3 MCHC 31.9 L RDW 19.6 H Plt Count 30 L* D MPV 10.9 Neut % (Auto) 88.9 H Lymph % (Auto) 5.6 L [place] % (Auto) 5.0 Eos % (Auto) 0.0 Baso % (Auto) 0.5 Neut # 6.1 Lymph # 0.4 L [place] # 0.3 Eos # 0.0 Baso # 0.0 Neutrophils % (Manual) 87 H Band Neutrophils % 3 H Lymphocytes % (Manual) 5 L Monocytes % (Manual) 5 Platelet Estimate Markedly decreased L Large Platelets Present Polychromasia Slight Hypochromasia (manual) Slight Poikilocytosis (manual Slight Anisocytosis (manual) Moderate Macrocytosis (manual) Slight Target Cells Slight Ovalocytes Slight Duc Cells Slight Puncture Site Rb pCO2 36 pO2 103 H HCO3 19.5 L ABG pH 7.32 L ABG Total CO2 19.6 L ABG O2 Saturation 98.0 ABG Base Excess -6.9 L ABG Hemoglobin 10.3 L ABG Carboxyhemoglobin 1.0 POC ABG HHb (Measured) 2.0 ABG Methemoglobin 1.2 Scar Test Na A-a O2 Difference 565.0 Respiratory Index 5.5 Hgb O2 Saturation 95.8 Vent Mode Prvc Mechanical Rate 18 FiO2 100.0 Tidal Volume 400 PEEP 5 Sodium 120 L* Potassium 4.4 Chloride 89 L Carbon Dioxide 19 L Anion Gap 16 BUN 57 H Creatinine 4.3 H Est GFR ( Amer) 16 Est GFR (Non-Af Amer) 13 Random Glucose 98 Calcium 7.3 L Phosphorus 3.5 Magnesium 2.1 Total Bilirubin 2.4 H AST 69 H D ALT 43 Alkaline Phosphatase 173 H Total Protein 5.8 L Albumin 2.6 L Globulin 3.2 Albumin/Globulin Ratio 0.8 L Critical Care Progress Note - Nutrition Nutrition: Nutrition Category Date Time Status Renal Diet [DIET] Diets 10/27/17 Breakfast Active Assessment/Plan - Assessment and Plan (Free Text) Assessment: 77M respiratory distress 2/2 fluid overload/pneumonia. Neuro: Lethargic on vent. versed prn for agitation. Pulm: Acute respiratory failure secondary to pulmonary edema. one right pigtail , two left pigtails, have both drained the patient's lungs effectively. With aggressive dialysis the patient has been effectively dried out. pneumo resolving CV: Relatively hypotensive, but asymptomatic. Continue midodrine. Stopping Flomax for any possibility of contributing to hypotension. CHF with ejection fraction of 15%. Vfib. amiodarone, lidocaine, defibrilated. Hem: anemia of critical illness. Renal: Anuric on hemodialysis, resuming MWF schedule. Endo: No acute issues. GI: Nothing by mouth, Nepro at 50. severe protein calorie malnutrition with cachexia. 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 DVT proph - Lovenox GI proph - Protonix sanon for strict I/O's during acute illness Code status - full code <Manjit Krueger S - Last Filed: 11/13/17 18:51> CCU Objective - Vital Signs / Intake & Output Vital Signs (Last 4 hours): Vital Signs Pulse Resp BP Pulse Ox 11/13/17 16:12 47 L 38 H 84/27 L 100 11/13/17 15:01 48 L 26 H 104/45 L Intake and Output (Last 8hrs): Intake & Output 11/13/17 11/13/17 11/13/17 06:59 14:59 22:59 Intake Total 1186 1300 345 Output Total 750 2200 Balance 436 -900 345 Weight 110 lb 9.6 oz Intake: IV 506 250 250 Intake, IV Amount 680 950 95 Left Distal Port 200 Left Medial Port 560 630 80 Left Proximal Port 120 120 15 Tube Feeding 0 0 0 Other 100 Output: Chest Tube Drainage 750 Left Lower Anterior Chest 60 Left Mid-Axillary Chest 240 Right Mid-Axillary Chest 450 Other 2200 Other: # Bowel Movements 0 0 - Medications Active Medications: Active Medications Generic Name Dose Route Start Last Admin Trade Name Freq PRN Reason Stop Dose Admin Acetaminophen 650 mg 11/06/17 23:47 11/13/17 00:04 Tylenol 650mg/20.3ml Solution Ud PO 650 mg Q4 PRN Administration Temperature Albuterol/Ipratropium 3 ml 01/19/18 14:00 11/13/17 13:21 Duoneb 3 Mg/0.5 Mg (3 Ml) Ud INH 3 ml RQ6 TANI Administration Amiodarone HCl 200 mg 11/05/17 17:17 11/13/17 17:14 Cordarone PO 200 mg BID TANI Administration Epoetin Pepe 10,000 unit 10/22/17 14:30 11/12/17 16:38 Procrit IV 10,000 unit MWF TANI Administration Cefepime HCl 1 gm in 50 mls @ 100 mls/hr 11/05/17 19:00 11/12/17 19:57 Maxipime Iv 1 Gm Premix IVPB 100 mls/hr Q24H TANI Administration Linezolid 600 mg in 300 mls @ 200 mls/hr 11/07/17 18:00 11/13/17 17:14 Zyvox 600mg/300ml D5w IVPB 200 mls/hr Q12H TANI Administration Meropenem 500 mg/ Sodium 100 mls @ 100 mls/hr 11/12/17 11:00 11/13/17 13:27 Chloride IVPB 100 mls/hr Q12H TANI Administration Micafungin Sodium 100 mg/ 100 mls @ 100 mls/hr 11/12/17 13:00 11/13/17 14:37 Sodium Chloride IV 100 mls/hr Q24H TANI Administration Lidocaine HCl/Dextrose 2,000 mg in 500 mls @ 15 mls/hr 11/12/17 16:00 16:00 Lidocaine 2 Grams In D5w IV 15 mls/hr .Q24H TANI Administration 1 MG/MIN Phenylephrine HCl 120 mg/ 1,000 mls @ 10 mls/hr 11/13/17 18:30 Sodium Chloride IV .Q24H PRN TITRATE PER MD ORDER Protocol 20 MCG/MIN Midazolam HCl 2 mg 11/11/17 16:43 11/13/17 14:58 Versed Inj IVP 2 mg Q4H PRN Administration Agitation Midodrine 10 mg 10/26/17 08:33 11/13/17 17:14 Proamatine PO 10 mg TID TANI Administration Pantoprazole Sodium 40 mg 11/08/17 10:30 11/13/17 13:26 Protonix Inj IVP 40 mg DAILY TANI Administration Vitamin B Complex/Vit C/Folic Acid 1 tab 10/12/17 10:00 11/13/17 09:58 Nephro-Aleksandra PO 1 tab DAILY TANI Administration - Patient Studies Lab Studies: Microbiology Studies 11/09/17 16:25 Blood Culture - Preliminary Blood NO GROWTH AFTER 4 DAYS 11/09/17 16:55 Blood Culture - Preliminary Blood NO GROWTH AFTER 4 DAYS Lab Studies 11/13/17 11/13/17 11/13/17 Range/Units 17:15 06:27 06:27 WBC 6.8 (4.8-10.8) K/uL RBC 3.17 L (4.40-5.90) Mil/uL Hgb 9.6 L (12.0-18.0) g/dL Hct 30.1 L (35.0-51.0) % MCV 95.0 H (80.0-94.0) fL MCH 30.3 (27.0-31.0) pg MCHC 31.9 L (33.0-37.0) g/dL RDW 19.6 H (11.5-14.5) % Plt Count 30 L* D (130-400) K/uL MPV 10.9 (7.2-11.7) fL Neut % (Auto) 88.9 H (50.0-75.0) % Lymph % (Auto) 5.6 L (20.0-40.0) % [place] % (Auto) 5.0 (0.0-10.0) % Eos % (Auto) 0.0 (0.0-4.0) % Baso % (Auto) 0.5 (0.0-2.0) % Neut # 6.1 (1.8-7.0) K/uL Lymph # 0.4 L (1.0-4.3) K/uL [place] # 0.3 (0.0-0.8) K/uL Eos # 0.0 (0.0-0.7) K/uL Baso # 0.0 (0.0-0.2) K/uL Neutrophils % (Manual) 87 H (50-75) % Band Neutrophils % 3 H (0-2) % Lymphocytes % (Manual) 5 L (20-40) % Monocytes % (Manual) 5 (0-10) % Platelet Estimate Markedly decreased L (NORMAL) Large Platelets Present Polychromasia Slight Hypochromasia (manual) Slight Poikilocytosis (manual Slight Anisocytosis (manual) Moderate Macrocytosis (manual) Slight Target Cells Slight Ovalocytes Slight [place] Cells Slight Fibrinogen 179 L (200-400) mg/dL Puncture Site pCO2 (35-45) mm/Hg pO2 (80-100) mm/Hg HCO3 (21-28) mmol/L ABG pH (7.35-7.45) ABG Total CO2 (22-28) mmol/L ABG O2 Saturation (95-98) % ABG Base Excess (-2.0-3.0) mmol/L ABG Hemoglobin (11.7-17.4) g/dL ABG Carboxyhemoglobin (0.5-1.5) % POC ABG HHb (Measured) (0.0-5.0) % ABG Methemoglobin (0.0-3.0) % Scar Test A-a O2 Difference mm/Hg Respiratory Index Hgb O2 Saturation (95.0-98.0) % Vent Mode Mechanical Rate FiO2 % Tidal Volume PEEP Sodium 120 L* (132-148) mmol/L Potassium 4.4 (3.6-5.2) mmol/L Chloride 89 L (98-107) mmol/L Carbon Dioxide 19 L (22-30) mmol/L Anion Gap 16 (10-20) BUN 57 H (9-20) mg/dL Creatinine 4.3 H (0.8-1.5) mg/dL Est GFR ( Amer) 16 Est GFR (Non-Af Amer) 13 Random Glucose 98 (75-110) mg/dL Calcium 7.3 L (8.6-10.4) mg/dl Phosphorus 3.5 (2.5-4.5) mg/dL Magnesium 2.1 (1.6-2.3) mg/dL Total Bilirubin 2.4 H (0.2-1.3) mg/dL AST 69 H D (17-59) U/L ALT 43 (21-72) U/L Alkaline Phosphatase 173 H (38-126) U/L Total Protein 5.8 L (6.3-8.3) g/dL Albumin 2.6 L (3.5-5.0) g/dL Globulin 3.2 (2.2-3.9) gm/dL Albumin/Globulin Ratio 0.8 L (1.0-2.1) 11/13/17 Range/Units 05:07 WBC (4.8-10.8) K/uL RBC (4.40-5.90) Mil/uL Hgb (12.0-18.0) g/dL Hct (35.0-51.0) % MCV (80.0-94.0) fL MCH (27.0-31.0) pg MCHC (33.0-37.0) g/dL RDW (11.5-14.5) % Plt Count (130-400) K/uL MPV (7.2-11.7) fL Neut % (Auto) (50.0-75.0) % Lymph % (Auto) (20.0-40.0) % [place] % (Auto) (0.0-10.0) % Eos % (Auto) (0.0-4.0) % Baso % (Auto) (0.0-2.0) % Neut # (1.8-7.0) K/uL Lymph # (1.0-4.3) K/uL [place] # (0.0-0.8) K/uL Eos # (0.0-0.7) K/uL Baso # (0.0-0.2) K/uL Neutrophils % (Manual) (50-75) % Band Neutrophils % (0-2) % Lymphocytes % (Manual) (20-40) % Monocytes % (Manual) (0-10) % Platelet Estimate (NORMAL) Large Platelets Polychromasia Hypochromasia (manual) Poikilocytosis (manual Anisocytosis (manual) Macrocytosis (manual) Target Cells Ovalocytes [place] Cells Fibrinogen (200-400) mg/dL Puncture Site Rb pCO2 36 (35-45) mm/Hg pO2 103 H (80-100) mm/Hg HCO3 19.5 L (21-28) mmol/L ABG pH 7.32 L (7.35-7.45) ABG Total CO2 19.6 L (22-28) mmol/L ABG O2 Saturation 98.0 (95-98) % ABG Base Excess -6.9 L (-2.0-3.0) mmol/L ABG Hemoglobin 10.3 L (11.7-17.4) g/dL ABG Carboxyhemoglobin 1.0 (0.5-1.5) % POC ABG HHb (Measured) 2.0 (0.0-5.0) % ABG Methemoglobin 1.2 (0.0-3.0) % Scar Test Na A-a O2 Difference 565.0 mm/Hg Respiratory Index 5.5 Hgb O2 Saturation 95.8 (95.0-98.0) % Vent Mode Prvc Mechanical Rate 18 FiO2 100.0 % Tidal Volume 400 PEEP 5 Sodium (132-148) mmol/L Potassium (3.6-5.2) mmol/L Chloride (98-107) mmol/L Carbon Dioxide (22-30) mmol/L Anion Gap (10-20) BUN (9-20) mg/dL Creatinine (0.8-1.5) mg/dL Est GFR ( Amer) Est GFR (Non-Af Amer) Random Glucose (75-110) mg/dL Calcium (8.6-10.4) mg/dl Phosphorus (2.5-4.5) mg/dL Magnesium (1.6-2.3) mg/dL Total Bilirubin (0.2-1.3) mg/dL AST (17-59) U/L ALT (21-72) U/L Alkaline Phosphatase (38-126) U/L Total Protein (6.3-8.3) g/dL Albumin (3.5-5.0) g/dL Globulin (2.2-3.9) gm/dL Albumin/Globulin Ratio (1.0-2.1) Laboratory Results - last 24 hr 11/13/17 11/13/17 11/13/17 05:07 06:27 06:27 WBC 6.8 RBC 3.17 L Hgb 9.6 L Hct 30.1 L MCV 95.0 H MCH 30.3 MCHC 31.9 L RDW 19.6 H Plt Count 30 L* D MPV 10.9 Neut % (Auto) 88.9 H Lymph % (Auto) 5.6 L [place] % (Auto) 5.0 Eos % (Auto) 0.0 Baso % (Auto) 0.5 Neut # 6.1 Lymph # 0.4 L [place] # 0.3 Eos # 0.0 Baso # 0.0 Neutrophils % (Manual) 87 H Band Neutrophils % 3 H Lymphocytes % (Manual) 5 L Monocytes % (Manual) 5 Platelet Estimate Markedly decreased L Large Platelets Present Polychromasia Slight Hypochromasia (manual) Slight Poikilocytosis (manual Slight Anisocytosis (manual) Moderate Macrocytosis (manual) Slight Target Cells Slight Ovalocytes Slight [place] Cells Slight Fibrinogen Puncture Site Rb pCO2 36 pO2 103 H HCO3 19.5 L ABG pH 7.32 L ABG Total CO2 19.6 L ABG O2 Saturation 98.0 ABG Base Excess -6.9 L ABG Hemoglobin 10.3 L ABG Carboxyhemoglobin 1.0 POC ABG HHb (Measured) 2.0 ABG Methemoglobin 1.2 Scar Test Na A-a O2 Difference 565.0 Respiratory Index 5.5 Hgb O2 Saturation 95.8 Vent Mode Prvc Mechanical Rate 18 FiO2 100.0 Tidal Volume 400 PEEP 5 Sodium 120 L* Potassium 4.4 Chloride 89 L Carbon Dioxide 19 L Anion Gap 16 BUN 57 H Creatinine 4.3 H Est GFR ( Amer) 16 Est GFR (Non-Af Amer) 13 Random Glucose 98 Calcium 7.3 L Phosphorus 3.5 Magnesium 2.1 Total Bilirubin 2.4 H AST 69 H D ALT 43 Alkaline Phosphatase 173 H Total Protein 5.8 L Albumin 2.6 L Globulin 3.2 Albumin/Globulin Ratio 0.8 L 11/13/17 17:15 WBC RBC Hgb Hct MCV MCH MCHC RDW Plt Count MPV Neut % (Auto) Lymph % (Auto) [place] % (Auto) Eos % (Auto) Baso % (Auto) Neut # Lymph # [place] # Eos # Baso # Neutrophils % (Manual) Band Neutrophils % Lymphocytes % (Manual) Monocytes % (Manual) Platelet Estimate Large Platelets Polychromasia Hypochromasia (manual) Poikilocytosis (manual Anisocytosis (manual) Macrocytosis (manual) Target Cells Ovalocytes Duc Cells Fibrinogen 179 L Puncture Site pCO2 pO2 HCO3 ABG pH ABG Total CO2 ABG O2 Saturation ABG Base Excess ABG Hemoglobin ABG Carboxyhemoglobin POC ABG HHb (Measured) ABG Methemoglobin Scar Test A-a O2 Difference Respiratory Index Hgb O2 Saturation Vent Mode Mechanical Rate FiO2 Tidal Volume PEEP Sodium Potassium Chloride Carbon Dioxide Anion Gap BUN Creatinine Est GFR ( Amer) Est GFR (Non-Af Amer) Random Glucose Calcium Phosphorus Magnesium Total Bilirubin AST ALT Alkaline Phosphatase Total Protein Albumin Globulin Albumin/Globulin Ratio Critical Care Progress Note - Nutrition Nutrition: Nutrition Category Date Time Status Renal Diet [DIET] Diets 10/27/17 Breakfast Active Assessment/Plan (1) Bradycardia Current Visit: Yes Status: Acute Comment: secondary to third-degree heart block, status post temporary pacemaker insertion Cardiology and EPS evaluation Patient refusing hemodialysis Follow-up lites Neurology evaluation Continue antibiotics for VRE (2) ESRD (end stage renal disease) on dialysis Current Visit: Yes Status: Acute (3) VRE (vancomycin resistant enterococcus) culture positive Current Visit: Yes Status: Acute (4) Cardiomyopathy Current Visit: No Status: Acute Attending/Attestation - Attestation I have personally seen and examined this patient.: Yes I have fully participated in the care of the patient.: Yes I have reviewed all pertinent clinical information: Yes Notes (Text): 11/13/17 18:49 patient seen and examined in the intensive care unit. Case discussed with house staff in the morning rounds. Remains on lidocaine drip with no further runs of V. tach On ventilator support with FiO2 100% 2. Pigtail catheter on left side and one on the right Small left pneumothorax Status post-hemodialysis Case discussed with family
--- NOTE | 2017-11-13 11:05 | CP.PCM.PN ---
Subjective - Date & Time of Evaluation Date of Evaluation: 11/13/17 Time of Evaluation: 11:02 - Subjective Subjective: pt seen and examined on hd, estimated uf 2L on lidocaine and levophed gtt chest tube remains intubated sedated episodes of v tachs yesterday, cardioverted Objective - Vital Signs/Intake and Output Vital Signs (last 24 hours): Temp Pulse Resp BP Pulse Ox 97.4 F L 76 31 H 103/64 100 11/13/17 09:30 11/13/17 10:27 11/13/17 10:27 11/13/17 10:45 11/13/17 10:27 Intake and Output: 11/13/17 11/13/17 06:59 18:59 Intake Total 1909 370 Output Total 750 Balance 1159 370 - Medications Medications: Current Medications Acetaminophen (Tylenol 650mg/20.3ml Solution Ud) 650 mg PO Q4 PRN PRN Reason: Temperature Last Admin: 11/13/17 00:04 Dose: 650 mg Albuterol/Ipratropium (Duoneb 3 Mg/0.5 Mg (3 Ml) Ud) 3 ml INH RQ6 [facility] [place] Last Admin: 11/13/17 07:52 Dose: 3 ml Amiodarone HCl (Cordarone) 200 mg PO BID [facility] [place] Last Admin: 11/13/17 09:58 Dose: 200 mg Epoetin Pepe (Procrit) 10,000 unit IV MWF [facility] [place] Last Admin: 11/12/17 16:38 Dose: 10,000 unit Ferric Sodium Gluconate Complex 125 mg/ Sodium Chloride 110 mls @ 110 mls/hr IVPB DAILY [facility] [place] Stop: 11/13/17 14:31 Last Admin: 11/12/17 16:17 Dose: 110 mls/hr Cefepime HCl (Maxipime Iv 1 Gm Premix) 1 gm in 50 mls @ 100 mls/hr IVPB Q24H [facility] [place] Last Admin: 11/12/17 19:57 Dose: 100 mls/hr Linezolid (Zyvox 600mg/300ml D5w) 600 mg in 300 mls @ 200 mls/hr IVPB Q12H [facility] [place] Last Admin: 11/13/17 05:56 Dose: 200 mls/hr Meropenem 500 mg/ Sodium (Chloride) 100 mls @ 100 mls/hr IVPB Q12H [facility] [place] Last Admin: 11/12/17 23:31 Dose: 100 mls/hr Micafungin Sodium 100 mg/ (Sodium Chloride) 100 mls @ 100 mls/hr IV Q24H [facility] [place] Last Admin: 11/12/17 14:59 Dose: 100 mls/hr Lidocaine HCl/Dextrose (Lidocaine 2 Grams In D5w) 2,000 mg in 500 mls @ 15 mls/ hr IV .Q24H [facility] PRN Reason: 1 MG/MIN Last Admin: 11/12/17 16:00 Dose: 15 mls/hr Phenylephrine HCl 30 mg/ (Sodium Chloride) 250 mls @ 10 mls/hr IV .Q24H PRN; Protocol; 20 MCG/MIN PRN Reason: TITRATE PER MD ORDER Last Titration: 11/13/17 09:17 Dose: 160 mcg/min, 80 mls/hr Midazolam HCl (Versed Inj) 2 mg IVP Q4H PRN PRN Reason: Agitation Last Admin: 11/13/17 09:58 Dose: 2 mg Midodrine (Proamatine) 10 mg PO TID [facility] [place] Last Admin: 11/13/17 09:58 Dose: 10 mg Pantoprazole Sodium (Protonix Inj) 40 mg IVP DAILY [facility] [place] Last Admin: 11/12/17 10:42 Dose: 40 mg Vitamin B Complex/Vit C/Folic Acid (Nephro-Aleksandra) 1 tab PO DAILY [facility] [place] Last Admin: 11/13/17 09:58 Dose: 1 tab - Labs Labs: 11/13/17 06:27 11/13/17 06:27 PT 13.9 SECONDS (9.7-12.2) H 10/24/17 06:20 INR 1.2 10/24/17 06:20 APTT 57 SECONDS (21-34) H D 10/30/17 06:12 - Constitutional Appears: No Acute Distress, Cachectic, Chronically Ill - Head Exam Head Exam: NORMAL INSPECTION - Eye Exam Eye Exam: Normal appearance Pupil Exam: PERRL - ENT Exam Additional comments: et tube - Neck Exam Neck Exam: Normal Inspection - Respiratory Exam Respiratory Exam: NORMAL BREATHING PATTERN (mechanical breath sounds, chest tube ) - Cardiovascular Exam Cardiovascular Exam: REGULAR RHYTHM, RRR - GI/Abdominal Exam GI & Abdominal Exam: Distended, Soft - Extremities Exam Extremities Exam: Normal Inspection - Skin Skin Exam: Warm Assessment and Plan (1) Acute urinary retention Status: Acute (2) Renal failure, acute on chronic Status: Acute (3) Cardiomyopathy Status: Acute (4) Urinary retention due to benign prostatic hyperplasia Status: Acute (5) Bradycardia Status: Acute - Assessment and Plan (Free Text) Assessment: maintain hd 3 times / week cardiology management 3K bath. low na noted, ecommend concentrating drips overall poor prognosis
--- NOTE | 2017-11-13 12:52 | US ---
PROCEDURE: Date of procedure: 11/09/2017 Procedure: 1. Ultrasound-guided left thoracentesis, CPT 92240 Medications: 7cc 1% Lidocaine HISTORY: Left pleural effusion, shortness of breath TECHNIQUE: Following informed consent ,the Patients' left chest was marked. Procedure time-out was called, and the patient was placed in the sitting position and limited ultrasound showed a large left effusion. The patient's left back was prepped and draped in the usual sterile fashion. After the skin was anesthetized with lidocaine, a drainage catheter was advanced under ultrasound guidance into the pleural space. Ultrasound-guided thoracentesis was performed. A total of 1200 cubic centimeters of slight serosanguineous colored fluid removed without complication. A Xeroform dressing was applied. IMPRESSION: Ultrasound guided left thoracentesis. There were no immediate complications.
--- NOTE | 2017-11-13 13:10 | CP.PCM.PN ---
Subjective - Date & Time of Evaluation Date of Evaluation: 11/13/17 Time of Evaluation: 13:10 Objective - Vital Signs/Intake and Output Vital Signs (last 24 hours): Temp Pulse Resp BP Pulse Ox 98.3 F 77 32 H 83/51 L 100 11/13/17 12:00 11/13/17 12:49 11/13/17 12:49 11/13/17 12:49 11/13/17 12:49 Intake and Output: 11/13/17 11/13/17 06:59 18:59 Intake Total 1909 910 Output Total 750 Balance 1159 910 - Medications Medications: Current Medications Acetaminophen (Tylenol 650mg/20.3ml Solution Ud) 650 mg PO Q4 PRN PRN Reason: Temperature Last Admin: 11/13/17 00:04 Dose: 650 mg Albuterol/Ipratropium (Duoneb 3 Mg/0.5 Mg (3 Ml) Ud) 3 ml INH RQ6 [facility] Last Admin: 11/13/17 07:52 Dose: 3 ml Amiodarone HCl (Cordarone) 200 mg PO BID [facility] Last Admin: 11/13/17 09:58 Dose: 200 mg Epoetin Pepe (Procrit) 10,000 unit IV MWF [facility] Last Admin: 11/12/17 16:38 Dose: 10,000 unit Ferric Sodium Gluconate Complex 125 mg/ Sodium Chloride 110 mls @ 110 mls/hr IVPB DAILY [facility] Stop: 11/13/17 14:31 Last Admin: 11/12/17 16:17 Dose: 110 mls/hr Cefepime HCl (Maxipime Iv 1 Gm Premix) 1 gm in 50 mls @ 100 mls/hr IVPB Q24H [facility] Last Admin: 11/12/17 19:57 Dose: 100 mls/hr Linezolid (Zyvox 600mg/300ml D5w) 600 mg in 300 mls @ 200 mls/hr IVPB Q12H [facility] Last Admin: 11/13/17 05:56 Dose: 200 mls/hr Meropenem 500 mg/ Sodium (Chloride) 100 mls @ 100 mls/hr IVPB Q12H [facility] Last Admin: 11/12/17 23:31 Dose: 100 mls/hr Micafungin Sodium 100 mg/ (Sodium Chloride) 100 mls @ 100 mls/hr IV Q24H [facility] Last Admin: 11/12/17 14:59 Dose: 100 mls/hr Lidocaine HCl/Dextrose (Lidocaine 2 Grams In D5w) 2,000 mg in 500 mls @ 15 mls/ hr IV .Q24H [facility] PRN Reason: 1 MG/MIN Last Admin: 11/12/17 16:00 Dose: 15 mls/hr Phenylephrine HCl 30 mg/ (Sodium Chloride) 250 mls @ 10 mls/hr IV .Q24H PRN; Protocol; 20 MCG/MIN PRN Reason: TITRATE PER MD ORDER Last Admin: 11/13/17 12:34 Dose: 160 mcg/min, 80 mls/hr Midazolam HCl (Versed Inj) 2 mg IVP Q4H PRN PRN Reason: Agitation Last Admin: 11/13/17 09:58 Dose: 2 mg Midodrine (Proamatine) 10 mg PO TID [facility] Last Admin: 11/13/17 09:58 Dose: 10 mg Pantoprazole Sodium (Protonix Inj) 40 mg IVP DAILY [facility] Last Admin: 11/12/17 10:42 Dose: 40 mg Vitamin B Complex/Vit C/Folic Acid (Nephro-Aleksandra) 1 tab PO DAILY [facility] Last Admin: 11/13/17 09:58 Dose: 1 tab - Labs Labs: 11/13/17 06:27 11/13/17 06:27 PT 13.9 SECONDS (9.7-12.2) H 10/24/17 06:20 INR 1.2 10/24/17 06:20 APTT 57 SECONDS (21-34) H D 10/30/17 06:12 Assessment and Plan (1) Respiratory failure with hypoxia Status: Acute (2) Bradycardia Status: Acute (3) UTI (urinary tract infection) Status: Acute (4) Acute urinary retention Status: Acute (5) Obstructed Beck catheter Status: Acute (6) Renal failure, acute on chronic Status: Acute (7) Cachexia Status: Acute (8) Cardiomyopathy Status: Acute (9) Benign prostatic hyperplasia Status: Acute (10) Hepatitis C antibody test positive Status: Acute (11) DVT of axillary vein, acute left Status: Acute (12) Gait instability Status: Acute
[2017-11-13] MEDS: Meropenem 500 MG in Sodium Chloride 0.9% 100 ML IVPB SCH ×2 (13:27→23:30)
--- NOTE | 2017-11-13 13:27 | CP.PCM.PN ---
Subjective - Date & Time of Evaluation Date of Evaluation: 11/13/17 Time of Evaluation: 13:24 - Subjective Subjective: REMAINS INTUBATED AND SEDATED ON LEVOPHED TO MAINTAIN BP HAD EPISODE OF V TACY , CARDIOVERTED , EP COMING TO EVALUATE FURTHER P/E SAME ON IV AB FOR SPENCER PNEUMONIA D/W BROTHER Objective - Vital Signs/Intake and Output Vital Signs (last 24 hours): Temp Pulse Resp BP Pulse Ox 98.3 F 75 23 85/55 L 100 11/13/17 13:00 11/13/17 13:00 11/13/17 13:00 11/13/17 13:00 11/13/17 13:00 Intake and Output: 11/13/17 11/13/17 11:59 23:59 Intake Total 1666 345 Output Total 750 Balance 916 345 - Medications Medications: Current Medications Acetaminophen (Tylenol 650mg/20.3ml Solution Ud) 650 mg PO Q4 PRN PRN Reason: Temperature Last Admin: 11/13/17 00:04 Dose: 650 mg Albuterol/Ipratropium (Duoneb 3 Mg/0.5 Mg (3 Ml) Ud) 3 ml INH RQ6 [facility] Last Admin: 11/13/17 13:21 Dose: 3 ml Amiodarone HCl (Cordarone) 200 mg PO BID [facility] Last Admin: 11/13/17 09:58 Dose: 200 mg Epoetin Pepe (Procrit) 10,000 unit IV MWF [facility] Last Admin: 11/12/17 16:38 Dose: 10,000 unit Ferric Sodium Gluconate Complex 125 mg/ Sodium Chloride 110 mls @ 110 mls/hr IVPB DAILY [facility] Stop: 11/13/17 14:31 Last Admin: 11/12/17 16:17 Dose: 110 mls/hr Cefepime HCl (Maxipime Iv 1 Gm Premix) 1 gm in 50 mls @ 100 mls/hr IVPB Q24H [facility] Last Admin: 11/12/17 19:57 Dose: 100 mls/hr Linezolid (Zyvox 600mg/300ml D5w) 600 mg in 300 mls @ 200 mls/hr IVPB Q12H [facility] Last Admin: 11/13/17 05:56 Dose: 200 mls/hr Meropenem 500 mg/ Sodium (Chloride) 100 mls @ 100 mls/hr IVPB Q12H [facility] Last Admin: 11/12/17 23:31 Dose: 100 mls/hr Micafungin Sodium 100 mg/ (Sodium Chloride) 100 mls @ 100 mls/hr IV Q24H [facility] Last Admin: 11/12/17 14:59 Dose: 100 mls/hr Lidocaine HCl/Dextrose (Lidocaine 2 Grams In D5w) 2,000 mg in 500 mls @ 15 mls/ hr IV .Q24H [facility] PRN Reason: 1 MG/MIN Last Admin: 11/12/17 16:00 Dose: 15 mls/hr Phenylephrine HCl 30 mg/ (Sodium Chloride) 250 mls @ 10 mls/hr IV .Q24H PRN; Protocol; 20 MCG/MIN PRN Reason: TITRATE PER MD ORDER Last Admin: 11/13/17 12:34 Dose: 160 mcg/min, 80 mls/hr Midazolam HCl (Versed Inj) 2 mg IVP Q4H PRN PRN Reason: Agitation Last Admin: 11/13/17 09:58 Dose: 2 mg Midodrine (Proamatine) 10 mg PO TID [facility] Last Admin: 11/13/17 09:58 Dose: 10 mg Pantoprazole Sodium (Protonix Inj) 40 mg IVP DAILY [facility] Last Admin: 11/12/17 10:42 Dose: 40 mg Vitamin B Complex/Vit C/Folic Acid (Nephro-Aleksandra) 1 tab PO DAILY [facility] Last Admin: 11/13/17 09:58 Dose: 1 tab - Labs Labs: 11/13/17 06:27 11/13/17 06:27 PT 13.9 SECONDS (9.7-12.2) H 10/24/17 06:20 INR 1.2 10/24/17 06:20 APTT 57 SECONDS (21-34) H D 10/30/17 06:12
[2017-11-13] MEDS: Micafungin 100 MG in Sodium Chloride 0.9% 100 ML IV SCH (14:37)
[2017-11-13] MEDS: Ferric Sodium Gluconat Complex 125 MG in Sodium Chloride 0.9% 100 ML IVPB SCH (16:11)
--- NOTE | 2017-11-13 16:14 | CP.PCM.CON ---
<Pooja Smith - Last Filed: 11/13/17 16:03> History of Present Illness - History of Present Illness History of Present Illness: Hematology/Oncology Consult for Dr. Holloway Reason for consult: thrombocytopenia 77 year old male with PMHx of CHF with pacemaker, CKD on HD, BPH with urinary retention admitted on 09/24/17 for acute on chronic renal failure and urinary retention. During hospital stay, patient was noncompliant and refusing medications and dialysis. Patient had respiratory failure and had to be intubated. He currently being treated in the ICU for possible sepsis. Patient is intubated and is arousable to voice, but does not follow commands. Heme/Onc consult placed for worsening thrombocytopenia. Past medical history: BPH, urinary retention, renal failure on dialysis, CHF, cardiomyopathy, EF 15% with pacemaker in place Past surgical history: Right IJ permacath by Dr. Ordoñez (10/04/17), Left AVF by Dr. Ordoñez (10/09/17) Family history: unknown Social history: denied on admission as per chart Review of systems: unobtainable Review of Systems - Review of Systems Systems not reviewed;Unavailable: Intubated Past Patient History - Past Medical History & Family History Past Medical History?: Yes - Past Social History Smoking Status: Never Smoked - CARDIAC Hx Cardiac Disorders: Yes - PULMONARY Hx Respiratory Disorders: No - NEUROLOGICAL Hx Neurological Disorder: No - HEENT Hx HEENT Problems: No - RENAL Hx Chronic Kidney Disease: Yes - ENDOCRINE/METABOLIC Hx Endocrine Disorders: No - HEMATOLOGICAL/ONCOLOGICAL Hx Anemia: Yes - INTEGUMENTARY Hx Dermatological Problems: No - MUSCULOSKELETAL/RHEUMATOLOGICAL Hx Musculoskeletal Disorders: Yes Hx Falls: Yes - GASTROINTESTINAL Hx Gastrointestinal Disorders: Yes Hx Gastroesophageal Reflux: Yes Other/Comment:  - GENITOURINARY/GYNECOLOGICAL Hx Genitourinary Disorders: Yes Hx Prostate Problems: Yes Hx Urinary Tract Infection: Yes Other/Comment: hx utis-pt has indwelling sanon from detention - PSYCHIATRIC Hx Substance Use: No - SURGICAL HISTORY Hx Surgeries: No - ANESTHESIA Hx Anesthesia: No Hx Anesthesia Reactions: No Hx Malignant Hyperthermia: No Meds Home Medications: Home Medication List Medication Instructions Recorded Confirmed Type Acetaminophen [Tylenol 325mg tab] 650 mg PO Q4 PRN tab 10/12/17 Rx Amiodarone [Cordarone] 400 mg PO BID tab 10/12/17 Rx Calcitriol [Rocaltrol] 0.5 mcg PO DAILY sgl 10/12/17 Rx Calcium Acetate [Phoslo] 667 mg PO TIDCC tab 10/12/17 Rx Famotidine [Pepcid] 20 mg PO DAILY tab 10/12/17 Rx Gentamicin 100 mg IVPB MWF #2 vial 10/12/17 Rx Midodrine [Proamatine] 2.5 mg PO TID tab 10/12/17 Rx Tamsulosin [Flomax] 0.4 mg PO DAILY cap 10/12/17 Rx Vitamin B Complex/Vit C/Folic 1 tab PO DAILY tab 10/12/17 Rx [Nephro-Aleksandra] Allergies/Adverse Reactions: Allergies Allergy/AdvReac Type Severity Reaction Status Date / Time No Known Allergies Allergy Verified 09/24/17 12:54 - Medications Medications: Current Medications Acetaminophen (Tylenol 650mg/20.3ml Solution Ud) 650 mg PO Q4 PRN PRN Reason: Temperature Last Admin: 11/13/17 00:04 Dose: 650 mg Albuterol/Ipratropium (Duoneb 3 Mg/0.5 Mg (3 Ml) Ud) 3 ml INH RQ6 [facility] Last Admin: 11/13/17 13:21 Dose: 3 ml Amiodarone HCl (Cordarone) 200 mg PO BID [facility] Last Admin: 11/13/17 09:58 Dose: 200 mg Epoetin Pepe (Procrit) 10,000 unit IV MWF [facility] Last Admin: 11/12/17 16:38 Dose: 10,000 unit Cefepime HCl (Maxipime Iv 1 Gm Premix) 1 gm in 50 mls @ 100 mls/hr IVPB Q24H [facility] Last Admin: 11/12/17 19:57 Dose: 100 mls/hr Linezolid (Zyvox 600mg/300ml D5w) 600 mg in 300 mls @ 200 mls/hr IVPB Q12H [facility] Last Admin: 11/13/17 05:56 Dose: 200 mls/hr Meropenem 500 mg/ Sodium (Chloride) 100 mls @ 100 mls/hr IVPB Q12H [facility] Last Admin: 11/13/17 13:27 Dose: 100 mls/hr Micafungin Sodium 100 mg/ (Sodium Chloride) 100 mls @ 100 mls/hr IV Q24H [facility] Last Admin: 11/13/17 14:37 Dose: 100 mls/hr Lidocaine HCl/Dextrose (Lidocaine 2 Grams In D5w) 2,000 mg in 500 mls @ 15 mls/ hr IV .Q24H [facility] PRN Reason: 1 MG/MIN Last Admin: 11/12/17 16:00 Dose: 15 mls/hr Phenylephrine HCl 30 mg/ (Sodium Chloride) 250 mls @ 10 mls/hr IV .Q24H PRN; Protocol; 20 MCG/MIN PRN Reason: TITRATE PER MD ORDER Last Admin: 11/13/17 12:34 Dose: 160 mcg/min, 80 mls/hr Midazolam HCl (Versed Inj) 2 mg IVP Q4H PRN PRN Reason: Agitation Last Admin: 11/13/17 14:58 Dose: 2 mg Midodrine (Proamatine) 10 mg PO TID [facility] Last Admin: 11/13/17 13:27 Dose: 10 mg Pantoprazole Sodium (Protonix Inj) 40 mg IVP DAILY [facility] Last Admin: 11/13/17 13:26 Dose: 40 mg Vitamin B Complex/Vit C/Folic Acid (Nephro-Aleksandra) 1 tab PO DAILY [facility] Last Admin: 11/13/17 09:58 Dose: 1 tab Physical Exam - Constitutional Appears: Chronically Ill - Head Exam Head Exam: NORMAL INSPECTION, NORMOCEPHALIC - Eye Exam Eye Exam: PERRL - ENT Exam ENT Exam: Mucous Membranes Dry - Respiratory Exam Respiratory Exam: Rales - Cardiovascular Exam Cardiovascular Exam: REGULAR RHYTHM, +S1, +S2 - GI/Abdominal Exam GI & Abdominal Exam: Soft. absent: Distended, Tenderness - Extremities Exam Extremities exam: Negative for: pedal edema - Neurological Exam Neurological exam: Altered - Skin Skin Exam: Dry, Intact, Warm Results - Vital Signs Recent Vital Signs: Last Vital Signs Temp 98.3 F 11/13/17 13:00 Pulse 48 L 11/13/17 15:01 Resp 26 H 11/13/17 15:01 BP 104/45 L 11/13/17 15:01 Pulse Ox 100 11/13/17 14:28 - Labs Result Diagrams: 11/13/17 06:27 11/13/17 06:27 Labs: Laboratory Results - last 24 hr 11/13/17 11/13/17 11/13/17 05:07 06:27 06:27 WBC 6.8 RBC 3.17 L Hgb 9.6 L Hct 30.1 L MCV 95.0 H MCH 30.3 MCHC 31.9 L RDW 19.6 H Plt Count 30 L* D MPV 10.9 Neut % (Auto) 88.9 H Lymph % (Auto) 5.6 L [place] % (Auto) 5.0 Eos % (Auto) 0.0 Baso % (Auto) 0.5 Neut # 6.1 Lymph # 0.4 L [place] # 0.3 Eos # 0.0 Baso # 0.0 Neutrophils % (Manual) 87 H Band Neutrophils % 3 H Lymphocytes % (Manual) 5 L Monocytes % (Manual) 5 Platelet Estimate Markedly decreased L Large Platelets Present Polychromasia Slight Hypochromasia (manual) Slight Poikilocytosis (manual Slight Anisocytosis (manual) Moderate Macrocytosis (manual) Slight Target Cells Slight Ovalocytes Slight Duc Cells Slight Puncture Site Rb pCO2 36 pO2 103 H HCO3 19.5 L ABG pH 7.32 L ABG Total CO2 19.6 L ABG O2 Saturation 98.0 ABG Base Excess -6.9 L ABG Hemoglobin 10.3 L ABG Carboxyhemoglobin 1.0 POC ABG HHb (Measured) 2.0 ABG Methemoglobin 1.2 Scar Test Na A-a O2 Difference 565.0 Respiratory Index 5.5 Hgb O2 Saturation 95.8 Vent Mode Prvc Mechanical Rate 18 FiO2 100.0 Tidal Volume 400 PEEP 5 Sodium 120 L* Potassium 4.4 Chloride 89 L Carbon Dioxide 19 L Anion Gap 16 BUN 57 H Creatinine 4.3 H Est GFR ( Amer) 16 Est GFR (Non-Af Amer) 13 Random Glucose 98 Calcium 7.3 L Phosphorus 3.5 Magnesium 2.1 Total Bilirubin 2.4 H AST 69 H D ALT 43 Alkaline Phosphatase 173 H Total Protein 5.8 L Albumin 2.6 L Globulin 3.2 Albumin/Globulin Ratio 0.8 L Assessment & Plan (1) Thrombocytopenia Assessment and Plan: blood smear was reviewed with Dr. Holloway. May be related to sepsis. Will check fibrinogen to check for DIC Will check seratonin essay and heparin induced antibody to check for HIT Status: Acute (2) Anemia Assessment and Plan: Stool OB negative on admission Will check retic count, Vitamin B12, Folate and Ferritin Status: Acute - Assessment and Plan (Free Text) Assessment: Patient seen and examined during rounds with Dr. Holloway. Recommendations above as per attending. Ronda Smith, PGY 3 <Max Holloway - Last Filed: 11/13/17 21:07> Meds - Medications Medications: Current Medications Acetaminophen (Tylenol 650mg/20.3ml Solution Ud) 650 mg PO Q4 PRN PRN Reason: Temperature Last Admin: 11/13/17 00:04 Dose: 650 mg Albuterol/Ipratropium (Duoneb 3 Mg/0.5 Mg (3 Ml) Ud) 3 ml INH RQ6 [facility] Last Admin: 11/13/17 19:09 Dose: 3 ml Amiodarone HCl (Cordarone) 200 mg PO BID [facility] Last Admin: 11/13/17 17:14 Dose: 200 mg Epoetin Pepe (Procrit) 10,000 unit IV MWF [facility] Last Admin: 11/12/17 16:38 Dose: 10,000 unit Cefepime HCl (Maxipime Iv 1 Gm Premix) 1 gm in 50 mls @ 100 mls/hr IVPB Q24H [facility] Last Admin: 11/13/17 19:04 Dose: 100 mls/hr Linezolid (Zyvox 600mg/300ml D5w) 600 mg in 300 mls @ 200 mls/hr IVPB Q12H [facility] Last Admin: 11/13/17 17:14 Dose: 200 mls/hr Meropenem 500 mg/ Sodium (Chloride) 100 mls @ 100 mls/hr IVPB Q12H [facility] Last Admin: 11/13/17 13:27 Dose: 100 mls/hr Micafungin Sodium 100 mg/ (Sodium Chloride) 100 mls @ 100 mls/hr IV Q24H [facility] Last Admin: 11/13/17 14:37 Dose: 100 mls/hr Lidocaine HCl/Dextrose (Lidocaine 2 Grams In D5w) 2,000 mg in 500 mls @ 15 mls/ hr IV .Q24H [facility] PRN Reason: 1 MG/MIN Last Admin: 11/13/17 19:05 Dose: 15 mls/hr Phenylephrine HCl 120 mg/ (Sodium Chloride) 1,000 mls @ 10 mls/hr IV .Q24H PRN ; Protocol; 20 MCG/MIN PRN Reason: TITRATE PER MD ORDER Midazolam HCl (Versed Inj) 2 mg IVP Q4H PRN PRN Reason: Agitation Last Admin: 11/13/17 14:58 Dose: 2 mg Midodrine (Proamatine) 10 mg PO TID [facility] Last Admin: 11/13/17 17:14 Dose: 10 mg Pantoprazole Sodium (Protonix Inj) 40 mg IVP DAILY [facility] Last Admin: 11/13/17 13:26 Dose: 40 mg Vitamin B Complex/Vit C/Folic Acid (Nephro-Aleksandra) 1 tab PO DAILY [facility] Last Admin: 11/13/17 09:58 Dose: 1 tab Results - Vital Signs Recent Vital Signs: Last Vital Signs Temp 98.6 F 11/13/17 16:00 Pulse 60 11/13/17 19:28 Resp 23 11/13/17 19:28 BP 77/43 L 11/13/17 19:28 Pulse Ox 100 11/13/17 19:28 - Labs Result Diagrams: 11/13/17 06:27 11/13/17 06:27 Labs: Laboratory Results - last 24 hr 11/13/17 11/13/17 11/13/17 05:07 06:27 06:27 WBC 6.8 RBC 3.17 L Hgb 9.6 L Hct 30.1 L MCV 95.0 H MCH 30.3 MCHC 31.9 L RDW 19.6 H Plt Count 30 L* D MPV 10.9 Neut % (Auto) 88.9 H Lymph % (Auto) 5.6 L [place] % (Auto) 5.0 Eos % (Auto) 0.0 Baso % (Auto) 0.5 Neut # 6.1 Lymph # 0.4 L [place] # 0.3 Eos # 0.0 Baso # 0.0 Neutrophils % (Manual) 87 H Band Neutrophils % 3 H Lymphocytes % (Manual) 5 L Monocytes % (Manual) 5 Platelet Estimate Markedly decreased L Large Platelets Present Polychromasia Slight Hypochromasia (manual) Slight Poikilocytosis (manual Slight Anisocytosis (manual) Moderate Macrocytosis (manual) Slight Target Cells Slight Ovalocytes Slight Duc Cells Slight Fibrinogen Puncture Site Rb pCO2 36 pO2 103 H HCO3 19.5 L ABG pH 7.32 L ABG Total CO2 19.6 L ABG O2 Saturation 98.0 ABG Base Excess -6.9 L ABG Hemoglobin 10.3 L ABG Carboxyhemoglobin 1.0 POC ABG HHb (Measured) 2.0 ABG Methemoglobin 1.2 Scar Test Na A-a O2 Difference 565.0 Respiratory Index 5.5 Hgb O2 Saturation 95.8 Vent Mode Prvc Mechanical Rate 18 FiO2 100.0 Tidal Volume 400 PEEP 5 Sodium 120 L* Potassium 4.4 Chloride 89 L Carbon Dioxide 19 L Anion Gap 16 BUN 57 H Creatinine 4.3 H Est GFR ( Amer) 16 Est GFR (Non-Af Amer) 13 Random Glucose 98 Calcium 7.3 L Phosphorus 3.5 Magnesium 2.1 Total Bilirubin 2.4 H AST 69 H D ALT 43 Alkaline Phosphatase 173 H Total Protein 5.8 L Albumin 2.6 L Globulin 3.2 Albumin/Globulin Ratio 0.8 L 11/13/17 17:15 WBC RBC Hgb Hct MCV MCH MCHC RDW Plt Count MPV Neut % (Auto) Lymph % (Auto) [place] % (Auto) Eos % (Auto) Baso % (Auto) Neut # Lymph # [place] # Eos # Baso # Neutrophils % (Manual) Band Neutrophils % Lymphocytes % (Manual) Monocytes % (Manual) Platelet Estimate Large Platelets Polychromasia Hypochromasia (manual) Poikilocytosis (manual Anisocytosis (manual) Macrocytosis (manual) Target Cells Ovalocytes [place] Cells Fibrinogen 179 L Puncture Site pCO2 pO2 HCO3 ABG pH ABG Total CO2 ABG O2 Saturation ABG Base Excess ABG Hemoglobin ABG Carboxyhemoglobin POC ABG HHb (Measured) ABG Methemoglobin Scar Test A-a O2 Difference Respiratory Index Hgb O2 Saturation Vent Mode Mechanical Rate FiO2 Tidal Volume PEEP Sodium Potassium Chloride Carbon Dioxide Anion Gap BUN Creatinine Est GFR ( Amer) Est GFR (Non-Af Amer) Random Glucose Calcium Phosphorus Magnesium Total Bilirubin AST ALT Alkaline Phosphatase Total Protein Albumin Globulin Albumin/Globulin Ratio Assessment & Plan - Assessment and Plan (Free Text) Assessment: Pt seen and examined, agree with residents consult. 77 year old male with CHF, CKD on HD, respiratory failure s/p B/L chest tubes, arrythmia, with progressive thrombocytopenia, coagulopathy, and anemia. Will rule out DIC and HIT. Peripheral smear reviewed and shows toxic granulation in neutrophils, mild anisopiokilocytosis, occasional schistocyte, no platelet clumping but giant platelets noted. Likely sepsis related. Anemia w /u sent. Thank you for this interesting consult.
[2017-11-13] MEDS ORDERED: SODIUM CHLORIDE 0.9% IV PRN (18:15)
[2017-11-13] MEDS ORDERED: PHENYLEPHRINE IV PRN (18:15)
[2017-11-13] MEDS: Cefepime IV 1 gm in Dextrose 1 GM/50 ML BAG IVPB SCH (19:04)
[2017-11-13] MEDS: Lidocaine 2 Grams in D5W 2,000 MG/500 ML BAG IV SCH (19:05)
[2017-11-13] MEDS: SODIUM CHLORIDE 0.9% IV PRN (19:30)
[2017-11-13] MEDS: PHENYLEPHRINE IV PRN (19:30)
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
[2017-11-14] MEDS: Albuterol-Ipratrop 3 mg / 0.5 (3 ml) UD INH SCH ×4 (01:40→19:17)
[2017-11-14] MEDS: Linezolid 600 mg in D5W 300 ml 600 MG/300 ML BAG IVPB SCH ×2 (05:15→17:24)
[2017-11-14 06:20] LABS: ARTERIAL BLOOD GAS HCO3 13.9 mmol/L (21-28); ARTERIAL BLOOD GAS HEMOGLOBIN 7.3 g/dL (11.7-17.4); ARTERIAL BLOOD GAS O2 SAT 98.9 % (95-98); ARTERIAL BLOOD GAS PCO2 31 mm/Hg (35-45); ARTERIAL BLOOD GAS PH 7.21 (7.35-7.45); ARTERIAL BLOOD GAS PO2 252 mm/Hg (80-100); ARTERIAL BLOOD GAS TCO2 13.4 mmol/L (22-28)
[2017-11-14 06:35] LABS: HEMOGLOBIN 8.8 g/dL (12.0-18.0); MEAN CELL VOLUME 95.5 fL (80.0-94.0); MEAN CORPUSCULAR HEMOGLOBIN 30.6 pg (27.0-31.0); MEAN PLATELET VOLUME 9.6 fL (7.2-11.7); PLATELET COUNT 31 K/uL (130-400); RBC 2.87 Mil/uL (4.40-5.90); RED CELL DISTRIBUTION WIDTH 19.8 % (11.5-14.5); WHITE BLOOD COUNT 6.1 K/uL (4.8-10.8)
[2017-11-14 06:49] LABS: ALB/GLOB RATIO 0.7 (1.0-2.1); ALBUMIN 2.2 g/dL (3.5-5.0); ALT/SGPT 75 U/L (21-72); AST/SGOT 192 U/L (17-59); BLOOD UREA NITROGEN 50 mg/dL (9-20); CALCIUM 6.4 mg/dl (8.6-10.4); MAGNESIUM 1.8 mg/dL (1.6-2.3)
[2017-11-14] MEDS: Acetaminophen 650mg/20.3ml solution UD PO PRN ×2 (06:55→12:06)
[2017-11-14 07:00] LABS: GFR AFRICAN-AMERICAN 21; GFR NON-AFRICAN AMERICAN 18
[2017-11-14 07:50] LABS: FOLATE > 20.0 ng/mL
[2017-11-14] MEDS: SODIUM CHLORIDE 0.9% IV PRN ×2 (08:36→19:09)
[2017-11-14] MEDS: PHENYLEPHRINE IV PRN ×2 (08:36→19:09)
[2017-11-14 08:46] LABS: LYMPH # 0.4 K/uL (1.0-4.3); MONO # 0.4 K/uL (0.0-0.8); NEUT # 5.3 K/uL (1.8-7.0)
[2017-11-14 08:49] LABS: ANISOCYTOSIS MODERATE; BANDS 4 % (0-2); LYMPHOCYTE 6 % (20-40); MONOCYTE 4 % (0-10); NEUTROPHIL 86 % (50-75); NUCLEATED RED BLOOD CELL 2 % (0-0); PLATELET ESTIMATE MARKEDLY DECREASED (NORMAL); TOTAL CELLS COUNTED 100
[2017-11-14 08:50] LABS: BURR CELLS MODERATE; POIKILOCYTOSIS SLIGHT
--- NOTE | 2017-11-14 09:49 | RAD ---
HISTORY: intubated w/ chest tubes COMPARISON: No prior. FINDINGS: LUNGS: Bilateral airspace opacities, unchanged. Similar pulmonary vascular congestion. PLEURA: Small bilateral pleural effusions. Small to moderate left apical pneumothorax, unchanged. CARDIOVASCULAR: Left subclavian access pacemaker redemonstrated. Atherosclerotic aortic calcifications. Cardiomediastinal silhouette stably enlarged. OSSEOUS STRUCTURES: Unchanged. VISUALIZED UPPER ABDOMEN: Normal. OTHER FINDINGS: Endotracheal and enteric tubes, unchanged. Right internal jugular access tunneled hemodialysis catheter, unchanged. Left internal jugular access central venous catheter, unchanged. Bibasilar pigtail chest tubes, unchanged. Overlying pacer pads redemonstrated. IMPRESSION: Persistent small to moderate left apical pneumothorax. No significant interval change.
[2017-11-14] MEDS ORDERED: Sodium Bicarbonate (8.4%) 50 Meq Syringe IVP ONE ×2 (09:58)
[2017-11-14] MEDS: Multivitamin Vitamin B Complex (Nephro-Vite) Tab PO SCH (10:27)
[2017-11-14] MEDS: Meropenem 500 MG in Sodium Chloride 0.9% 100 ML IVPB SCH ×2 (10:29→22:31)
[2017-11-14 12:03] VITALS: O2SAT 100
--- NOTE | 2017-11-14 12:16 | CP.PCM.PN ---
Subjective - Date & Time of Evaluation Date of Evaluation: 11/14/17 Time of Evaluation: 12:12 - Subjective Subjective: Events noted has had bouts of VTACH- now on lidocaine on hi dose 2 pressors on vent, sedated today K high, has increased metabolic acidosis remains in CHF on coverage for likely sepsis Objective - Vital Signs/Intake and Output Vital Signs (last 24 hours): Temp Pulse Resp BP Pulse Ox 101.3 F H 60 25 H 86/38 L 100 11/14/17 08:00 11/14/17 12:03 11/14/17 12:03 11/14/17 12:03 11/14/17 12:03 Intake and Output: 11/14/17 11/14/17 06:59 18:59 Intake Total 1620 1708.06 Output Total 470 0 Balance 1150 1708.06 - Medications Medications: Current Medications Acetaminophen (Tylenol 650mg/20.3ml Solution Ud) 650 mg PO Q4 PRN PRN Reason: Temperature Last Admin: 11/14/17 12:06 Dose: 650 mg Albuterol/Ipratropium (Duoneb 3 Mg/0.5 Mg (3 Ml) Ud) 3 ml INH RQ6 [facility] Last Admin: 11/14/17 07:20 Dose: 3 ml Amiodarone HCl (Cordarone) 200 mg PO BID [facility] Last Admin: 11/14/17 10:26 Dose: 200 mg Epoetin Pepe (Procrit) 10,000 unit IV MWF [facility] Last Admin: 11/12/17 16:38 Dose: 10,000 unit Cefepime HCl (Maxipime Iv 1 Gm Premix) 1 gm in 50 mls @ 100 mls/hr IVPB Q24H [facility] Last Admin: 11/13/17 19:04 Dose: 100 mls/hr Linezolid (Zyvox 600mg/300ml D5w) 600 mg in 300 mls @ 200 mls/hr IVPB Q12H [facility] Last Admin: 11/14/17 05:15 Dose: 200 mls/hr Meropenem 500 mg/ Sodium (Chloride) 100 mls @ 100 mls/hr IVPB Q12H [facility] Last Admin: 11/14/17 10:29 Dose: 100 mls/hr Micafungin Sodium 100 mg/ (Sodium Chloride) 100 mls @ 100 mls/hr IV Q24H [facility] Last Admin: 11/13/17 14:37 Dose: 100 mls/hr Lidocaine HCl/Dextrose (Lidocaine 2 Grams In D5w) 2,000 mg in 500 mls @ 15 mls/ hr IV .Q24H [facility] PRN Reason: 1 MG/MIN Last Admin: 11/13/17 19:05 Dose: 15 mls/hr Phenylephrine HCl 120 mg/ (Sodium Chloride) 1,000 mls @ 10 mls/hr IV .Q24H PRN ; Protocol; 20 MCG/MIN PRN Reason: TITRATE PER MD ORDER Last Admin: 11/14/17 08:36 Dose: 180 mcg/min, 90 mls/hr Norepinephrine Bitartrate 4 mg (/ Sodium Chloride) 254 mls @ 15.24 mls/hr IV .[id number] PRN; Protocol; 4 MCG/MIN PRN Reason: TITRATE PER MD ORDER Last Titration: 11/14/17 12:09 Dose: 20 mcg/min, 76.2 mls/hr Midazolam HCl (Versed Inj) 2 mg IVP Q4H PRN PRN Reason: Agitation Last Admin: 11/13/17 14:58 Dose: 2 mg Midodrine (Proamatine) 10 mg PO TID [facility] Last Admin: 11/14/17 10:26 Dose: 10 mg Pantoprazole Sodium (Protonix Inj) 40 mg IVP DAILY [facility] Last Admin: 11/14/17 10:26 Dose: 40 mg Vitamin B Complex/Vit C/Folic Acid (Nephro-Aleksandra) 1 tab PO DAILY [facility] Last Admin: 11/14/17 10:27 Dose: 1 tab - Labs Labs: 11/14/17 06:22 11/14/17 06:22 PT 13.9 SECONDS (9.7-12.2) H 10/24/17 06:20 INR 1.2 10/24/17 06:20 APTT 57 SECONDS (21-34) H D 10/30/17 06:12 - Constitutional Appears: In Acute Distress, Cachectic, Chronically Ill - Head Exam Head Exam: ATRAUMATIC, NORMAL INSPECTION - Neck Exam Neck Exam: Normal Inspection. absent: Tenderness - Respiratory Exam Respiratory Exam: Rhonchi, Respiratory Distress - Cardiovascular Exam Cardiovascular Exam: REGULAR RHYTHM, +S1 - GI/Abdominal Exam GI & Abdominal Exam: Soft. absent: Tenderness - Extremities Exam Extremities Exam: Normal Inspection. absent: Tenderness - Neurological Exam Neurological Exam: Altered - Skin Skin Exam: Dry, Warm Assessment and Plan (1) CKD (chronic kidney disease) stage 5, GFR less than 15 ml/min Status: Acute (2) Acute urinary retention Status: Acute (3) Obstructed Beck catheter Status: Acute (4) Cardiomyopathy Status: Acute (5) Hepatitis C antibody positive in blood Status: Acute (6) VRE (vancomycin resistant enterococcus) culture positive Status: Acute (7) ESRD (end stage renal disease) on dialysis Status: Acute (8) Hepatitis C antibody test positive Status: Acute (9) CHF (congestive heart failure) Status: Acute (10) Metabolic encephalopathy Status: Acute - Assessment and Plan (Free Text) Plan: Try short course of dialysis as K high and has severe metabolic acidosis Need to monitor and maintain BP with HD Overall doing poorly and options are limited
[2017-11-14] MEDS: Micafungin 100 MG in Sodium Chloride 0.9% 100 ML IV SCH (12:42)
--- NOTE | 2017-11-14 13:41 | CP.PCM.CON ---
History of Present Illness - History of Present Illness History of Present Illness: Palliative consult requested by Doctor Krueger for goals of care discussion Patient is a 72 yo male admitted from [place] with urinary retention, no urine output to his Sanon cath and with severe suprapubic pain and tenderness. Since the admission patient was treated conservativelly as he had been refusing HD. Doctor Avery on board for B/L Hydronephroses. 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 Patient treated for UTI. Developed severe thrombocytopenia, Doctor Amie on board. 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 All along patient had been refusing HD what has caused other cascading effects on the body. At present patient is on full life support and 3 pressors. Palliative care called to assist in decision making process. 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 Hx: unknown, patient unable to provide information Review of Systems - Review of Systems All systems: reviewed and no additional remarkable complaints except (ROS obtained from nursing, due to patient's condition. Patient is on 3 pressors for low BP) Review of Systems: Obtained from nursing, patient on 3 pressors for BP support Past Patient History - Past Medical History & Family History Past Medical History?: Yes - Past Social History Smoking Status: Never Smoked - CARDIAC Hx Cardiac Disorders: Yes - PULMONARY Hx Respiratory Disorders: No - NEUROLOGICAL Hx Neurological Disorder: No - HEENT Hx HEENT Problems: No - RENAL Hx Chronic Kidney Disease: Yes - ENDOCRINE/METABOLIC Hx Endocrine Disorders: No - HEMATOLOGICAL/ONCOLOGICAL Hx Anemia: Yes - INTEGUMENTARY Hx Dermatological Problems: No - MUSCULOSKELETAL/RHEUMATOLOGICAL Hx Musculoskeletal Disorders: Yes Hx Falls: Yes - GASTROINTESTINAL Hx Gastrointestinal Disorders: Yes Hx Gastroesophageal Reflux: Yes Other/Comment:  - GENITOURINARY/GYNECOLOGICAL Hx Genitourinary Disorders: Yes Hx Prostate Problems: Yes Hx Urinary Tract Infection: Yes Other/Comment: hx utis-pt has indwelling sanon from residential - PSYCHIATRIC Hx Substance Use: No - SURGICAL HISTORY Hx Surgeries: No - ANESTHESIA Hx Anesthesia: No Hx Anesthesia Reactions: No Hx Malignant Hyperthermia: No Meds Home Medications: Home Medication List Medication Instructions Recorded Confirmed Type Acetaminophen [Tylenol 325mg tab] 650 mg PO Q4 PRN tab 10/12/17 Rx Amiodarone [Cordarone] 400 mg PO BID tab 10/12/17 Rx Calcitriol [Rocaltrol] 0.5 mcg PO DAILY sgl 10/12/17 Rx Calcium Acetate [Phoslo] 667 mg PO TIDCC tab 10/12/17 Rx Famotidine [Pepcid] 20 mg PO DAILY tab 10/12/17 Rx Gentamicin 100 mg IVPB MWF #2 vial 10/12/17 Rx Midodrine [Proamatine] 2.5 mg PO TID tab 10/12/17 Rx Tamsulosin [Flomax] 0.4 mg PO DAILY cap 10/12/17 Rx Vitamin B Complex/Vit C/Folic 1 tab PO DAILY tab 10/12/17 Rx [Nephro-Aleksandra] Allergies/Adverse Reactions: Allergies Allergy/AdvReac Type Severity Reaction Status Date / Time No Known Allergies Allergy Verified 09/24/17 12:54 - Medications Medications: Current Medications Acetaminophen (Tylenol 650mg/20.3ml Solution Ud) 650 mg PO Q4 PRN PRN Reason: Temperature Last Admin: 11/14/17 12:06 Dose: 650 mg Albuterol/Ipratropium (Duoneb 3 Mg/0.5 Mg (3 Ml) Ud) 3 ml INH RQ6 [facility] Last Admin: 11/14/17 07:20 Dose: 3 ml Amiodarone HCl (Cordarone) 200 mg PO BID [facility] Last Admin: 11/14/17 10:26 Dose: 200 mg Epoetin Pepe (Procrit) 10,000 unit IV MWF [facility] Last Admin: 11/12/17 16:38 Dose: 10,000 unit Cefepime HCl (Maxipime Iv 1 Gm Premix) 1 gm in 50 mls @ 100 mls/hr IVPB Q24H [facility] Last Admin: 11/13/17 19:04 Dose: 100 mls/hr Linezolid (Zyvox 600mg/300ml D5w) 600 mg in 300 mls @ 200 mls/hr IVPB Q12H [facility] Last Admin: 11/14/17 05:15 Dose: 200 mls/hr Meropenem 500 mg/ Sodium (Chloride) 100 mls @ 100 mls/hr IVPB Q12H [facility] Last Admin: 11/14/17 10:29 Dose: 100 mls/hr Micafungin Sodium 100 mg/ (Sodium Chloride) 100 mls @ 100 mls/hr IV Q24H [facility] Last Admin: 11/14/17 12:42 Dose: 100 mls/hr Lidocaine HCl/Dextrose (Lidocaine 2 Grams In D5w) 2,000 mg in 500 mls @ 15 mls/ hr IV .Q24H [facility] PRN Reason: 1 MG/MIN Last Admin: 11/13/17 19:05 Dose: 15 mls/hr Phenylephrine HCl 120 mg/ (Sodium Chloride) 1,000 mls @ 10 mls/hr IV .Q24H PRN ; Protocol; 20 MCG/MIN PRN Reason: TITRATE PER MD ORDER Last Admin: 11/14/17 08:36 Dose: 180 mcg/min, 90 mls/hr Norepinephrine Bitartrate 4 mg (/ Sodium Chloride) 254 mls @ 15.24 mls/hr IV .[id number] PRN; Protocol; 4 MCG/MIN PRN Reason: TITRATE PER MD ORDER Last Titration: 11/14/17 12:09 Dose: 20 mcg/min, 76.2 mls/hr Vasopressin 40 units/ Sodium (Chloride) 40 mls @ 2.4 mls/hr IV .[id number] [facility]; 0.04 UNITS/MIN PRN Reason: Protocol Last Admin: 11/14/17 13:13 Dose: 0.04 units/min, 2.4 mls/hr Midazolam HCl (Versed Inj) 2 mg IVP Q4H PRN PRN Reason: Agitation Last Admin: 11/13/17 14:58 Dose: 2 mg Midodrine (Proamatine) 10 mg PO TID [facility] Last Admin: 11/14/17 10:26 Dose: 10 mg Pantoprazole Sodium (Protonix Inj) 40 mg IVP DAILY [facility] Last Admin: 11/14/17 10:26 Dose: 40 mg Vitamin B Complex/Vit C/Folic Acid (Nephro-Aleksandra) 1 tab PO DAILY [facility] Last Admin: 11/14/17 10:27 Dose: 1 tab Physical Exam - Constitutional Appears: In Acute Distress, Chronically Ill - Head Exam Head Exam: ATRAUMATIC, NORMAL INSPECTION, NORMOCEPHALIC - Eye Exam Eye Exam: Normal appearance - ENT Exam ENT Exam: Mucous Membranes Dry Additional comments: ETT tube - Respiratory Exam Additional comments: On MV support - Cardiovascular Exam Cardiovascular Exam: Bradycardia Additional comments: on 3 Vasopressors - GI/Abdominal Exam GI & Abdominal Exam: Hypoactive Bowel Sounds - Rectal Exam Rectal Exam: Deferred - Exam Additional comments: Sanon cath - Extremities Exam Extremities exam: Positive for: pedal edema - Back Exam Back exam: NORMAL INSPECTION - Neurological Exam Neurological exam: Motor Sensory Deficit - Psychiatric Exam Psychiatric exam: Flat Affect - Skin Skin Exam: Pallor Results - Vital Signs Recent Vital Signs: Last Vital Signs Temp 102.9 F H 11/14/17 12:00 Pulse 60 11/14/17 13:13 Resp 25 H 11/14/17 13:13 BP 79/30 L 11/14/17 13:13 Pulse Ox 100 11/14/17 13:13 - Labs Result Diagrams: 11/14/17 06:22 11/14/17 06:22 Labs: Laboratory Results - last 24 hr 11/13/17 11/14/17 11/14/17 17:15 05:40 06:22 WBC 6.1 RBC 2.87 L Hgb 8.8 L Hct 27.4 L MCV 95.5 H MCH 30.6 MCHC 32.0 L RDW 19.8 H Plt Count 31 L MPV 9.6 Neut % (Auto) 88.0 H Lymph % (Auto) 6.0 L Clark % (Auto) 6.0 Eos % (Auto) 0.0 Baso % (Auto) 0.0 Neut # 5.3 Lymph # 0.4 L Clark # 0.4 Eos # 0.0 Baso # 0.0 Neutrophils % (Manual) 86 H Band Neutrophils % 4 H Lymphocytes % (Manual) 6 L Monocytes % (Manual) 4 Nucleated RBC % 2 H Platelet Estimate Markedly decreased L Poikilocytosis (manual Slight Anisocytosis (manual) Moderate Bethany Cells Moderate Retic Count 0.9 Fibrinogen 179 L Puncture Site R bra pCO2 31 L pO2 252 H HCO3 13.9 L ABG pH 7.21 L ABG Total CO2 13.4 L ABG O2 Saturation 98.9 H ABG Base Excess -14.2 L ABG Hemoglobin 7.3 L ABG Carboxyhemoglobin 0.4 L POC ABG HHb (Measured) 1.1 ABG Methemoglobin 1.5 Scar Test Na A-a O2 Difference 422.0 Respiratory Index 1.7 Hgb O2 Saturation 97.0 Vent Mode Prvc Mechanical Rate 18 FiO2 100.0 Tidal Volume 400 PEEP 5 Sodium Potassium Chloride Carbon Dioxide Anion Gap BUN Creatinine Est GFR ( Amer) Est GFR (Non-Af Amer) Random Glucose Calcium Magnesium Ferritin Total Bilirubin AST ALT Alkaline Phosphatase Total Protein Albumin Globulin Albumin/Globulin Ratio Vitamin B12 Folate 11/14/17 06:22 WBC RBC Hgb Hct MCV MCH MCHC RDW Plt Count MPV Neut % (Auto) Lymph % (Auto) Clark % (Auto) Eos % (Auto) Baso % (Auto) Neut # Lymph # Clark # Eos # Baso # Neutrophils % (Manual) Band Neutrophils % Lymphocytes % (Manual) Monocytes % (Manual) Nucleated RBC % Platelet Estimate Poikilocytosis (manual Anisocytosis (manual) Duc Cells Retic Count Fibrinogen Puncture Site pCO2 pO2 HCO3 ABG pH ABG Total CO2 ABG O2 Saturation ABG Base Excess ABG Hemoglobin ABG Carboxyhemoglobin POC ABG HHb (Measured) ABG Methemoglobin Scar Test A-a O2 Difference Respiratory Index Hgb O2 Saturation Vent Mode Mechanical Rate FiO2 Tidal Volume PEEP Sodium 124 L Potassium 5.8 H Chloride 95 L Carbon Dioxide 15 L Anion Gap 19 BUN 50 H Creatinine 3.4 H Est GFR ( Amer) 21 Est GFR (Non-Af Amer) 18 Random Glucose 132 H Calcium 6.4 L Magnesium 1.8 Ferritin 6540.0 Total Bilirubin 1.2 AST 192 H D ALT 75 H D Alkaline Phosphatase 125 Total Protein 5.4 L Albumin 2.2 L Globulin 3.1 Albumin/Globulin Ratio 0.7 L Vitamin B12 612 Folate > 20.0 Assessment & Plan - Assessment and Plan (Free Text) Assessment: Palliative consult Code status Full Code, there is no Advance directive on chart, PPS 0% I reviewed medical records, all diagnostic studies, examined patient in the bed. Patient is on MV support unresponsive to stimuli, looking very ill. BP 86/38, HR 60. The 3 rd pressor added jjust now for BP support. Skin is pale, Hb 8.8, there is dscoloration to LEs. Platelets count 31, Doctor Amie on consult. Breath sounds diminished, RR fast. Abdomen soft, flat, NGT for feedings. Per nursing patient was given lately a few HDs and some of them patient insisted to be stopped in the middle of time. Since his condition worsened, the HD become a very risky intervention and was held off. Patient's brother who was visiting this morning has left and I could not meet with him. Per nursing, he [place] is not known if had any phone contact number. I called all numbers on the chart and none of them was working. Impression * This is a critically ill man that will most likely very soon * Patient has been fighting since the admission and despite all prudent measures his condition did not improve * Patient's wishes for the end of life care are not known * No family member were awailable today for goals of care discussion Suggestion * Removal of life support and promotion of peaceful would be the best level of care for this suffering patient. I will talk to brother as soon as he comes back in and advocate for above mentioned suggestions
--- NOTE | 2017-11-14 13:54 | CP.CCUPN ---
<Krishna Brooks - Last Filed: 11/14/17 13:51> CCU Subjective - Physician Review Subjective (Free Text): 11/13/17 18:12 Patient seen and examined at bedside intubated bilateral chest tiubes pneumo resolving pads on patient bcause of episode of Vfib family at bedisde informed of poor prognosis 11/14/17 13:51 patient seen and examined at bedside does not respond to painful stimuli pressure continues to be low on 3 pressors dialysis today prognosis very grim CCU Objective - Vital Signs / Intake & Output Vital Signs (Last 4 hours): Vital Signs Temp Pulse Resp BP Pulse Ox 11/14/17 13:13 60 25 H 79/30 L 100 11/14/17 13:00 60 19 100 11/14/17 12:58 60 19 79/30 L 100 11/14/17 12:45 60 21 73/29 L 100 11/14/17 12:28 60 20 72/28 L 100 11/14/17 12:03 60 25 H 86/38 L 100 11/14/17 12:00 102.9 F H 60 19 100 11/14/17 11:58 60 29 H 86/38 L 100 11/14/17 11:52 60 18 79/38 L 100 11/14/17 11:28 60 20 78/39 L 100 11/14/17 11:00 60 18 99 11/14/17 10:58 60 26 H 86/42 L 100 11/14/17 10:28 60 25 H 93/42 L 100 11/14/17 10:19 60 19 81/38 L 90 L 11/14/17 10:00 60 15 99 11/14/17 09:58 60 25 H 78/41 L 93 L Intake and Output (Last 8hrs): Intake & Output 11/13/17 11/14/17 11/14/17 22:59 06:59 14:59 Intake Total 1550 1100 3.06 Output Total 470 470 0 Balance 3668 075 9562.06 Weight 120 lb 5.958 oz Intake: IV 250 1258 Intake, IV Amount 1220 940 675.06 Left Distal Port 450 100 150.06 Left Medial Port 650 720 450 Left Proximal Port 120 120 75 Tube Feeding 80 160 100 Output: Chest Tube Drainage 470 470 Left Lower Anterior Chest 70 100 Left Mid-Axillary Chest 100 20 Right Mid-Axillary Chest 300 350 Urine 0 0 0 Urine, Voided 0 0 0 Other: # Bowel Movements 0 - Physical Exam Head: Positive for: Atraumatic, Normocephalic Extroacular Muscles: Positive for: EOMI. Negative for: Gaze Palsy Conjunctiva: Positive for: Normal Mouth: Positive for: Moist Mucous Membranes, Normal Lips Neck: Positive for: Normal Range of Motion, Other (L IJ) Respiratory/Chest: Positive for: Clear to Auscultation, Other (intubated) Cardiovascular: Positive for: Regular Rate and Rhythm Abdomen: Positive for: Normal Bowel Sounds Upper Extremity: Positive for: Normal Inspection, Capillary Refill < 2s. Negative for: Edema Lower Extremity: Positive for: Normal Inspection, Capillary Refill < 2 s. Negative for: Edema Neurological: Positive for: Speech Normal Psychiatric: Positive for: Alert, Oriented x 3 - Medications Active Medications: Active Medications Generic Name Dose Route Start Last Admin Trade Name Freq PRN Reason Stop Dose Admin Acetaminophen 650 mg 11/06/17 23:47 11/14/17 12:06 Tylenol 650mg/20.3ml Solution Ud PO 650 mg Q4 PRN Administration Temperature Albuterol/Ipratropium 3 ml 11/09/17 14:00 11/14/17 07:20 Duoneb 3 Mg/0.5 Mg (3 Ml) Ud INH 3 ml RQ6 TANI Administration Amiodarone HCl 200 mg 11/05/17 17:17 11/14/17 10:26 Cordarone PO 200 mg BID TANI Administration Epoetin Pepe 10,000 unit 10/22/17 14:30 11/12/17 16:38 Procrit IV 10,000 unit F TANI Administration Cefepime HCl 1 gm in 50 mls @ 100 mls/hr 11/05/17 19:00 11/13/17 19:04 Maxipime Iv 1 Gm Premix IVPB 100 mls/hr Q24H TANI Administration Linezolid 600 mg in 300 mls @ 200 mls/hr 11/07/17 18:00 11/14/17 05:15 Zyvox 600mg/300ml D5w IVPB 200 mls/hr Q12H TANI Administration Meropenem 500 mg/ Sodium 100 mls @ 100 mls/hr 11/12/17 11:00 11/14/17 10:29 Chloride IVPB 100 mls/hr Q12H TANI Administration Micafungin Sodium 100 mg/ 100 mls @ 100 mls/hr 11/12/17 13:00 11/14/17 12:42 Sodium Chloride IV 100 mls/hr Q24H TANI Administration Lidocaine HCl/Dextrose 2,000 mg in 500 mls @ 15 mls/hr 11/12/17 16:00 19:05 Lidocaine 2 Grams In D5w IV 15 mls/hr .Q24H TANI Administration 1 MG/MIN Phenylephrine HCl 120 mg/ 1,000 mls @ 10 mls/hr 11/13/17 18:30 11/14/17 08:36 Sodium Chloride IV 180 mcg/min .Q24H PRN 90 mls/hr TITRATE PER MD ORDER Administration Protocol 20 MCG/MIN Norepinephrine Bitartrate 4 mg 254 mls @ 15.24 mls/hr 11/14/17 04:56 12:09 / Sodium Chloride IV 20 mcg/min .[id number] PRN 76.2 mls/hr TITRATE PER MD ORDER Titration Protocol 4 MCG/MIN Vasopressin 40 units/ Sodium 40 mls @ 2.4 mls/hr 11/14/17 13:00 11/14/17 13: 13 Chloride IV 0.04 units/min .[id number] TANI 2.4 mls/hr Protocol Administration 0.04 UNITS/MIN Midazolam HCl 2 mg 11/11/17 16:43 11/13/17 14:58 Versed Inj IVP 2 mg Q4H PRN Administration Agitation Midodrine 10 mg 10/26/17 08:33 11/14/17 10:26 Proamatine PO 10 mg TID TANI Administration Pantoprazole Sodium 40 mg 11/08/17 10:30 11/14/17 10:26 Protonix Inj IVP 40 mg DAILY TANI Administration Vitamin B Complex/Vit C/Folic Acid 1 tab 10/12/17 10:00 11/14/17 10:27 Nephro-Aleksandra PO 1 tab DAILY TANI Administration - Patient Studies Lab Studies: Microbiology Studies 11/09/17 16:25 Blood Culture - Preliminary Blood NO GROWTH AFTER 4 DAYS 11/09/17 16:55 Blood Culture - Preliminary Blood NO GROWTH AFTER 4 DAYS Lab Studies 11/14/17 11/14/17 11/14/17 Range/Units 06:22 06:22 05:40 WBC 6.1 (4.8-10.8) K/uL RBC 2.87 L (4.40-5.90) Mil/uL Hgb 8.8 L (12.0-18.0) g/dL Hct 27.4 L (35.0-51.0) % MCV 95.5 H (80.0-94.0) fL MCH 30.6 (27.0-31.0) pg MCHC 32.0 L (33.0-37.0) g/dL RDW 19.8 H (11.5-14.5) % Plt Count 31 L (130-400) K/uL MPV 9.6 (7.2-11.7) fL Neut % (Auto) 88.0 H (50.0-75.0) % Lymph % (Auto) 6.0 L (20.0-40.0) % Chase % (Auto) 6.0 (0.0-10.0) % Eos % (Auto) 0.0 (0.0-4.0) % Baso % (Auto) 0.0 (0.0-2.0) % Neut # 5.3 (1.8-7.0) K/uL Lymph # 0.4 L (1.0-4.3) K/uL Chase # 0.4 (0.0-0.8) K/uL Eos # 0.0 (0.0-0.7) K/uL Baso # 0.0 (0.0-0.2) K/uL Neutrophils % (Manual) 86 H (50-75) % Band Neutrophils % 4 H (0-2) % Lymphocytes % (Manual) 6 L (20-40) % Monocytes % (Manual) 4 (0-10) % Nucleated RBC % 2 H (0-0) % Platelet Estimate Markedly decreased L (NORMAL) Poikilocytosis (manual Slight Anisocytosis (manual) Moderate [place] Cells Moderate Retic Count 0.9 (0.5-1.5) % Fibrinogen (200-400) mg/dL Puncture Site R bra pCO2 31 L (35-45) mm/Hg pO2 252 H (80-100) mm/Hg HCO3 13.9 L (21-28) mmol/L ABG pH 7.21 L (7.35-7.45) ABG Total CO2 13.4 L (22-28) mmol/L ABG O2 Saturation 98.9 H (95-98) % ABG Base Excess -14.2 L (-2.0-3.0) mmol/L ABG Hemoglobin 7.3 L (11.7-17.4) g/dL ABG Carboxyhemoglobin 0.4 L (0.5-1.5) % POC ABG HHb (Measured) 1.1 (0.0-5.0) % ABG Methemoglobin 1.5 (0.0-3.0) % Scar Test Na A-a O2 Difference 422.0 mm/Hg Respiratory Index 1.7 Hgb O2 Saturation 97.0 (95.0-98.0) % Vent Mode Prvc Mechanical Rate 18 FiO2 100.0 % Tidal Volume 400 PEEP 5 Sodium 124 L (132-148) mmol/L Potassium 5.8 H (3.6-5.2) mmol/L Chloride 95 L (98-107) mmol/L Carbon Dioxide 15 L (22-30) mmol/L Anion Gap 19 (10-20) BUN 50 H (9-20) mg/dL Creatinine 3.4 H (0.8-1.5) mg/dL Est GFR ( Amer) 21 Est GFR (Non-Af Amer) 18 Random Glucose 132 H (75-110) mg/dL Calcium 6.4 L (8.6-10.4) mg/dl Magnesium 1.8 (1.6-2.3) mg/dL Ferritin 6540.0 ng/mL Total Bilirubin 1.2 (0.2-1.3) mg/dL AST 192 H D (17-59) U/L ALT 75 H D (21-72) U/L Alkaline Phosphatase 125 (38-126) U/L Total Protein 5.4 L (6.3-8.3) g/dL Albumin 2.2 L (3.5-5.0) g/dL Globulin 3.1 (2.2-3.9) gm/dL Albumin/Globulin Ratio 0.7 L (1.0-2.1) Vitamin B12 612 (239-931) pg/mL Folate > 20.0 ng/mL 01/23/18 Range/Units 17:15 WBC (4.8-10.8) K/uL RBC (4.40-5.90) Mil/uL Hgb (12.0-18.0) g/dL Hct (35.0-51.0) % MCV (80.0-94.0) fL MCH (27.0-31.0) pg MCHC (33.0-37.0) g/dL RDW (11.5-14.5) % Plt Count (130-400) K/uL MPV (7.2-11.7) fL Neut % (Auto) (50.0-75.0) % Lymph % (Auto) (20.0-40.0) % Chase % (Auto) (0.0-10.0) % Eos % (Auto) (0.0-4.0) % Baso % (Auto) (0.0-2.0) % Neut # (1.8-7.0) K/uL Lymph # (1.0-4.3) K/uL Chase # (0.0-0.8) K/uL Eos # (0.0-0.7) K/uL Baso # (0.0-0.2) K/uL Neutrophils % (Manual) (50-75) % Band Neutrophils % (0-2) % Lymphocytes % (Manual) (20-40) % Monocytes % (Manual) (0-10) % Nucleated RBC % (0-0) % Platelet Estimate (NORMAL) Poikilocytosis (manual Anisocytosis (manual) [place] Cells Retic Count (0.5-1.5) % Fibrinogen 179 L (200-400) mg/dL Puncture Site pCO2 (35-45) mm/Hg pO2 (80-100) mm/Hg HCO3 (21-28) mmol/L ABG pH (7.35-7.45) ABG Total CO2 (22-28) mmol/L ABG O2 Saturation (95-98) % ABG Base Excess (-2.0-3.0) mmol/L ABG Hemoglobin (11.7-17.4) g/dL ABG Carboxyhemoglobin (0.5-1.5) % POC ABG HHb (Measured) (0.0-5.0) % ABG Methemoglobin (0.0-3.0) % Scar Test A-a O2 Difference mm/Hg Respiratory Index Hgb O2 Saturation (95.0-98.0) % Vent Mode Mechanical Rate FiO2 % Tidal Volume PEEP Sodium (132-148) mmol/L Potassium (3.6-5.2) mmol/L Chloride (98-107) mmol/L Carbon Dioxide (22-30) mmol/L Anion Gap (10-20) BUN (9-20) mg/dL Creatinine (0.8-1.5) mg/dL Est GFR ( Amer) Est GFR (Non-Af Amer) Random Glucose (75-110) mg/dL Calcium (8.6-10.4) mg/dl Magnesium (1.6-2.3) mg/dL Ferritin ng/mL Total Bilirubin (0.2-1.3) mg/dL AST (17-59) U/L ALT (21-72) U/L Alkaline Phosphatase (38-126) U/L Total Protein (6.3-8.3) g/dL Albumin (3.5-5.0) g/dL Globulin (2.2-3.9) gm/dL Albumin/Globulin Ratio (1.0-2.1) Vitamin B12 (239-931) pg/mL Folate ng/mL Laboratory Results - last 24 hr 11/13/17 11/14/17 11/14/17 17:15 05:40 06:22 WBC 6.1 RBC 2.87 L Hgb 8.8 L Hct 27.4 L MCV 95.5 H MCH 30.6 MCHC 32.0 L RDW 19.8 H Plt Count 31 L MPV 9.6 Neut % (Auto) 88.0 H Lymph % (Auto) 6.0 L [place] % (Auto) 6.0 Eos % (Auto) 0.0 Baso % (Auto) 0.0 Neut # 5.3 Lymph # 0.4 L Chase # 0.4 Eos # 0.0 Baso # 0.0 Neutrophils % (Manual) 86 H Band Neutrophils % 4 H Lymphocytes % (Manual) 6 L Monocytes % (Manual) 4 Nucleated RBC % 2 H Platelet Estimate Markedly decreased L Poikilocytosis (manual Slight Anisocytosis (manual) Moderate [place] Cells Moderate Retic Count 0.9 Fibrinogen 179 L Puncture Site R bra pCO2 31 L pO2 252 H HCO3 13.9 L ABG pH 7.21 L ABG Total CO2 13.4 L ABG O2 Saturation 98.9 H ABG Base Excess -14.2 L ABG Hemoglobin 7.3 L ABG Carboxyhemoglobin 0.4 L POC ABG HHb (Measured) 1.1 ABG Methemoglobin 1.5 Scar Test Na A-a O2 Difference 422.0 Respiratory Index 1.7 Hgb O2 Saturation 97.0 Vent Mode Prvc Mechanical Rate 18 FiO2 100.0 Tidal Volume 400 PEEP 5 Sodium Potassium Chloride Carbon Dioxide Anion Gap BUN Creatinine Est GFR ( Amer) Est GFR (Non-Af Amer) Random Glucose Calcium Magnesium Ferritin Total Bilirubin AST ALT Alkaline Phosphatase Total Protein Albumin Globulin Albumin/Globulin Ratio Vitamin B12 Folate 11/14/17 06:22 WBC RBC Hgb Hct MCV MCH MCHC RDW Plt Count MPV Neut % (Auto) Lymph % (Auto) [place] % (Auto) Eos % (Auto) Baso % (Auto) Neut # Lymph # Chase # Eos # Baso # Neutrophils % (Manual) Band Neutrophils % Lymphocytes % (Manual) Monocytes % (Manual) Nucleated RBC % Platelet Estimate Poikilocytosis (manual Anisocytosis (manual) Duc Cells Retic Count Fibrinogen Puncture Site pCO2 pO2 HCO3 ABG pH ABG Total CO2 ABG O2 Saturation ABG Base Excess ABG Hemoglobin ABG Carboxyhemoglobin POC ABG HHb (Measured) ABG Methemoglobin Scar Test A-a O2 Difference Respiratory Index Hgb O2 Saturation Vent Mode Mechanical Rate FiO2 Tidal Volume PEEP Sodium 124 L Potassium 5.8 H Chloride 95 L Carbon Dioxide 15 L Anion Gap 19 BUN 50 H Creatinine 3.4 H Est GFR ( Amer) 21 Est GFR (Non-Af Amer) 18 Random Glucose 132 H Calcium 6.4 L Magnesium 1.8 Ferritin 6540.0 Total Bilirubin 1.2 AST 192 H D ALT 75 H D Alkaline Phosphatase 125 Total Protein 5.4 L Albumin 2.2 L Globulin 3.1 Albumin/Globulin Ratio 0.7 L Vitamin B12 612 Folate > 20.0 Critical Care Progress Note - Nutrition Nutrition: Nutrition Category Date Time Status Renal Diet [DIET] Diets 10/27/17 Breakfast Active Assessment/Plan - Assessment and Plan (Free Text) Assessment: 77M respiratory distress 2/2 fluid overload/pneumonia. Neuro: Lethargic on vent. versed prn for agitation. Pulm: Acute respiratory failure secondary to pulmonary edema. one right pigtail , two left pigtails, have both drained the patient's lungs effectively. With aggressive dialysis the patient has been effectively dried out. pneumo resolving CV: Relatively hypotensive, but asymptomatic. Continue midodrine. Stopping Flomax for any possibility of contributing to hypotension. CHF with ejection fraction of 15%. Vfib. amiodarone, lidocaine, defibrilated. patient on levophed, phenylephrine and vasopressin, pressure continue to be low Hem: anemia of critical illness. Renal: Anuric on hemodialysis, resuming MWF schedule. Endo: No acute issues. GI: Nothing by mouth, Nepro at 50. severe protein calorie malnutrition with cachexia. 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 DVT proph - Lovenox GI proph - Protonix sanon for strict I/O's during acute illness Code status - full code <Manjit Krueger S - Last Filed: 11/14/17 16:12> CCU Objective - Vital Signs / Intake & Output Vital Signs (Last 4 hours): Vital Signs Temp Pulse Pulse Resp BP BP Pulse Ox 11/14/17 15:15 60 14 96/39 L 100 11/14/17 15:03 60 12 96/39 L 100 11/14/17 15:00 60 16 100 11/14/17 14:54 49 L 17 109/43 L 100 11/14/17 14:48 48 L 16 108/39 L 100 11/14/17 14:47 48 L 22 102/33 L 100 11/14/17 14:45 98.7 F 48 L 102/33 L 11/14/17 14:33 60 17 92/41 L 100 11/14/17 14:30 60 92/41 L 11/14/17 14:18 60 17 90/38 L 100 11/14/17 14:15 60 90/38 L 11/14/17 14:03 60 12 89/38 L 100 11/14/17 14:00 60 60 14 89/38 L 100 11/14/17 13:48 60 26 H 87/37 L 100 11/14/17 13:45 60 87/37 L 11/14/17 13:33 60 25 H 83/35 L 100 11/14/17 13:30 103.2 F H 60 60 20 79/35 L 83/35 L 11/14/17 13:28 60 18 79/35 L 100 11/14/17 13:26 60 26 H 82/36 L 100 11/14/17 13:13 60 25 H 79/30 L 100 11/14/17 13:00 60 19 100 11/14/17 12:58 60 19 79/30 L 100 11/14/17 12:45 60 21 73/29 L 100 11/14/17 12:28 60 20 72/28 L 100 Intake and Output (Last 8hrs): Intake & Output 11/14/17 11/14/17 11/14/17 06:59 14:59 22:59 Intake Total 1100 2780.26 432.4 Output Total 470 0 0 Balance 630 2780.26 432.4 Weight 120 lb 5.958 oz Intake: IV 1258 250 Intake, IV Amount 940 1322.26 182.4 Left Distal Port 100 375.06 75 Left Medial Port 720 720 90 Left Proximal Port 120 120 15 Right Hand 100 left medial sideport 7.2 2.4 Tube Feeding 160 100 0 Other 100 Output: Chest Tube Drainage 470 Left Lower Anterior Chest 100 Left Mid-Axillary Chest 20 Right Mid-Axillary Chest 350 Urine 0 0 0 Urine, Voided 0 0 0 Other: # Bowel Movements 0 0 - Medications Active Medications: Active Medications Generic Name Dose Route Start Last Admin Trade Name Freq PRN Reason Stop Dose Admin Acetaminophen 650 mg 11/06/17 23:47 11/14/17 12:06 Tylenol 650mg/20.3ml Solution Ud PO 650 mg Q4 PRN Administration Temperature Albuterol/Ipratropium 3 ml 11/09/17 14:00 11/14/17 14:29 Duoneb 3 Mg/0.5 Mg (3 Ml) Ud INH 3 ml RQ6 TANI Administration Amiodarone HCl 200 mg 11/05/17 17:17 11/14/17 10:26 Cordarone PO 200 mg BID TANI Administration Epoetin Pepe 10,000 unit 10/22/17 14:30 11/14/17 15:10 Procrit IV 10,000 unit MWF TANI Administration Cefepime HCl 1 gm in 50 mls @ 100 mls/hr 11/05/17 19:00 11/13/17 19:04 Maxipime Iv 1 Gm Premix IVPB 100 mls/hr Q24H TANI Administration Linezolid 600 mg in 300 mls @ 200 mls/hr 11/07/17 18:00 11/14/17 05:15 Zyvox 600mg/300ml D5w IVPB 200 mls/hr Q12H TANI Administration Meropenem 500 mg/ Sodium 100 mls @ 100 mls/hr 11/12/17 11:00 11/14/17 10:29 Chloride IVPB 100 mls/hr Q12H TANI Administration Micafungin Sodium 100 mg/ 100 mls @ 100 mls/hr 11/12/17 13:00 11/14/17 12:42 Sodium Chloride IV 100 mls/hr Q24H TANI Administration Lidocaine HCl/Dextrose 2,000 mg in 500 mls @ 15 mls/hr 11/12/17 16:00 19:05 Lidocaine 2 Grams In D5w IV 15 mls/hr .Q24H ATNI Administration 1 MG/MIN Phenylephrine HCl 120 mg/ 1,000 mls @ 10 mls/hr 11/13/17 18:30 11/14/17 08:36 Sodium Chloride IV 180 mcg/min .Q24H PRN 90 mls/hr TITRATE PER MD ORDER Administration Protocol 20 MCG/MIN Vasopressin 40 units/ Sodium 40 mls @ 2.4 mls/hr 11/14/17 13:00 11/14/17 13: 13 Chloride IV 0.04 units/min .[id number] TANI 2.4 mls/hr Protocol Administration 0.04 UNITS/MIN Norepinephrine Bitartrate 16 1,000 mls @ 15 mls/hr 11/14/17 16:02 mg/ Sodium Chloride IV .Q24H PRN TITRATE PER MD ORDER Protocol 4 MCG/MIN Midazolam HCl 2 mg 11/11/17 16:43 11/13/17 14:58 Versed Inj IVP 2 mg Q4H PRN Administration Agitation Midodrine 10 mg 10/26/17 08:33 11/14/17 13:53 Proamatine PO 10 mg TID TANI Administration Pantoprazole Sodium 40 mg 11/08/17 10:30 11/14/17 10:26 Protonix Inj IVP 40 mg DAILY TANI Administration Vitamin B Complex/Vit C/Folic Acid 1 tab 10/12/17 10:00 11/14/17 10:27 Nephro-Aleksandra PO 1 tab DAILY TANI Administration - Patient Studies Lab Studies: Microbiology Studies 11/09/17 16:25 Blood Culture - Preliminary Blood NO GROWTH AFTER 4 DAYS 11/09/17 16:55 Blood Culture - Preliminary Blood NO GROWTH AFTER 4 DAYS Lab Studies 11/14/17 11/14/17 11/14/17 Range/Units 06:22 06:22 05:40 WBC 6.1 (4.8-10.8) K/uL RBC 2.87 L (4.40-5.90) Mil/uL Hgb 8.8 L (12.0-18.0) g/dL Hct 27.4 L (35.0-51.0) % MCV 95.5 H (80.0-94.0) fL MCH 30.6 (27.0-31.0) pg MCHC 32.0 L (33.0-37.0) g/dL RDW 19.8 H (11.5-14.5) % Plt Count 31 L (130-400) K/uL MPV 9.6 (7.2-11.7) fL Neut % (Auto) 88.0 H (50.0-75.0) % Lymph % (Auto) 6.0 L (20.0-40.0) % Chase % (Auto) 6.0 (0.0-10.0) % Eos % (Auto) 0.0 (0.0-4.0) % Baso % (Auto) 0.0 (0.0-2.0) % Neut # 5.3 (1.8-7.0) K/uL Lymph # 0.4 L (1.0-4.3) K/uL Chase # 0.4 (0.0-0.8) K/uL Eos # 0.0 (0.0-0.7) K/uL Baso # 0.0 (0.0-0.2) K/uL Neutrophils % (Manual) 86 H (50-75) % Band Neutrophils % 4 H (0-2) % Lymphocytes % (Manual) 6 L (20-40) % Monocytes % (Manual) 4 (0-10) % Nucleated RBC % 2 H (0-0) % Platelet Estimate Markedly decreased L (NORMAL) Poikilocytosis (manual Slight Anisocytosis (manual) Moderate [place] Cells Moderate Retic Count 0.9 (0.5-1.5) % Fibrinogen (200-400) mg/dL Puncture Site R bra pCO2 31 L (35-45) mm/Hg pO2 252 H (80-100) mm/Hg HCO3 13.9 L (21-28) mmol/L ABG pH 7.21 L (7.35-7.45) ABG Total CO2 13.4 L (22-28) mmol/L ABG O2 Saturation 98.9 H (95-98) % ABG Base Excess -14.2 L (-2.0-3.0) mmol/L ABG Hemoglobin 7.3 L (11.7-17.4) g/dL ABG Carboxyhemoglobin 0.4 L (0.5-1.5) % POC ABG HHb (Measured) 1.1 (0.0-5.0) % ABG Methemoglobin 1.5 (0.0-3.0) % Scar Test Na A-a O2 Difference 422.0 mm/Hg Respiratory Index 1.7 Hgb O2 Saturation 97.0 (95.0-98.0) % Vent Mode Prvc Mechanical Rate 18 FiO2 100.0 % Tidal Volume 400 PEEP 5 Sodium 124 L (132-148) mmol/L Potassium 5.8 H (3.6-5.2) mmol/L Chloride 95 L (98-107) mmol/L Carbon Dioxide 15 L (22-30) mmol/L Anion Gap 19 (10-20) BUN 50 H (9-20) mg/dL Creatinine 3.4 H (0.8-1.5) mg/dL Est GFR ( Amer) 21 Est GFR (Non-Af Amer) 18 Random Glucose 132 H (75-110) mg/dL Calcium 6.4 L (8.6-10.4) mg/dl Magnesium 1.8 (1.6-2.3) mg/dL Ferritin 6540.0 ng/mL Total Bilirubin 1.2 (0.2-1.3) mg/dL AST 192 H D (17-59) U/L ALT 75 H D (21-72) U/L Alkaline Phosphatase 125 (38-126) U/L Total Protein 5.4 L (6.3-8.3) g/dL Albumin 2.2 L (3.5-5.0) g/dL Globulin 3.1 (2.2-3.9) gm/dL Albumin/Globulin Ratio 0.7 L (1.0-2.1) Vitamin B12 612 (239-931) pg/mL Folate > 20.0 ng/mL 11/13/17 Range/Units 17:15 WBC (4.8-10.8) K/uL RBC (4.40-5.90) Mil/uL Hgb (12.0-18.0) g/dL Hct (35.0-51.0) % MCV (80.0-94.0) fL MCH (27.0-31.0) pg MCHC (33.0-37.0) g/dL RDW (11.5-14.5) % Plt Count (130-400) K/uL MPV (7.2-11.7) fL Neut % (Auto) (50.0-75.0) % Lymph % (Auto) (20.0-40.0) % Chase % (Auto) (0.0-10.0) % Eos % (Auto) (0.0-4.0) % Baso % (Auto) (0.0-2.0) % Neut # (1.8-7.0) K/uL Lymph # (1.0-4.3) K/uL Chase # (0.0-0.8) K/uL Eos # (0.0-0.7) K/uL Baso # (0.0-0.2) K/uL Neutrophils % (Manual) (50-75) % Band Neutrophils % (0-2) % Lymphocytes % (Manual) (20-40) % Monocytes % (Manual) (0-10) % Nucleated RBC % (0-0) % Platelet Estimate (NORMAL) Poikilocytosis (manual Anisocytosis (manual) Duc Cells Retic Count (0.5-1.5) % Fibrinogen 179 L (200-400) mg/dL Puncture Site pCO2 (35-45) mm/Hg pO2 (80-100) mm/Hg HCO3 (21-28) mmol/L ABG pH (7.35-7.45) ABG Total CO2 (22-28) mmol/L ABG O2 Saturation (95-98) % ABG Base Excess (-2.0-3.0) mmol/L ABG Hemoglobin (11.7-17.4) g/dL ABG Carboxyhemoglobin (0.5-1.5) % POC ABG HHb (Measured) (0.0-5.0) % ABG Methemoglobin (0.0-3.0) % Scar Test A-a O2 Difference mm/Hg Respiratory Index Hgb O2 Saturation (95.0-98.0) % Vent Mode Mechanical Rate FiO2 % Tidal Volume PEEP Sodium (132-148) mmol/L Potassium (3.6-5.2) mmol/L Chloride (98-107) mmol/L Carbon Dioxide (22-30) mmol/L Anion Gap (10-20) BUN (9-20) mg/dL Creatinine (0.8-1.5) mg/dL Est GFR ( Amer) Est GFR (Non-Af Amer) Random Glucose (75-110) mg/dL Calcium (8.6-10.4) mg/dl Magnesium (1.6-2.3) mg/dL Ferritin ng/mL Total Bilirubin (0.2-1.3) mg/dL AST (17-59) U/L ALT (21-72) U/L Alkaline Phosphatase (38-126) U/L Total Protein (6.3-8.3) g/dL Albumin (3.5-5.0) g/dL Globulin (2.2-3.9) gm/dL Albumin/Globulin Ratio (1.0-2.1) Vitamin B12 (239-931) pg/mL Folate ng/mL Laboratory Results - last 24 hr 11/13/17 11/14/17 11/14/17 17:15 05:40 06:22 WBC 6.1 RBC 2.87 L Hgb 8.8 L Hct 27.4 L MCV 95.5 H MCH 30.6 MCHC 32.0 L RDW 19.8 H Plt Count 31 L MPV 9.6 Neut % (Auto) 88.0 H Lymph % (Auto) 6.0 L Chase % (Auto) 6.0 Eos % (Auto) 0.0 Baso % (Auto) 0.0 Neut # 5.3 Lymph # 0.4 L Chase # 0.4 Eos # 0.0 Baso # 0.0 Neutrophils % (Manual) 86 H Band Neutrophils % 4 H Lymphocytes % (Manual) 6 L Monocytes % (Manual) 4 Nucleated RBC % 2 H Platelet Estimate Markedly decreased L Poikilocytosis (manual Slight Anisocytosis (manual) Moderate Duc Cells Moderate Retic Count 0.9 Fibrinogen 179 L Puncture Site R bra pCO2 31 L pO2 252 H HCO3 13.9 L ABG pH 7.21 L ABG Total CO2 13.4 L ABG O2 Saturation 98.9 H ABG Base Excess -14.2 L ABG Hemoglobin 7.3 L ABG Carboxyhemoglobin 0.4 L POC ABG HHb (Measured) 1.1 ABG Methemoglobin 1.5 Scar Test Na A-a O2 Difference 422.0 Respiratory Index 1.7 Hgb O2 Saturation 97.0 Vent Mode Prvc Mechanical Rate 18 FiO2 100.0 Tidal Volume 400 PEEP 5 Sodium Potassium Chloride Carbon Dioxide Anion Gap BUN Creatinine Est GFR ( Amer) Est GFR (Non-Af Amer) Random Glucose Calcium Magnesium Ferritin Total Bilirubin AST ALT Alkaline Phosphatase Total Protein Albumin Globulin Albumin/Globulin Ratio Vitamin B12 Folate 11/14/17 06:22 WBC RBC Hgb Hct MCV MCH MCHC RDW Plt Count MPV Neut % (Auto) Lymph % (Auto) Chase % (Auto) Eos % (Auto) Baso % (Auto) Neut # Lymph # Chase # Eos # Baso # Neutrophils % (Manual) Band Neutrophils % Lymphocytes % (Manual) Monocytes % (Manual) Nucleated RBC % Platelet Estimate Poikilocytosis (manual Anisocytosis (manual) [place] Cells Retic Count Fibrinogen Puncture Site pCO2 pO2 HCO3 ABG pH ABG Total CO2 ABG O2 Saturation ABG Base Excess ABG Hemoglobin ABG Carboxyhemoglobin POC ABG HHb (Measured) ABG Methemoglobin Scar Test A-a O2 Difference Respiratory Index Hgb O2 Saturation Vent Mode Mechanical Rate FiO2 Tidal Volume PEEP Sodium 124 L Potassium 5.8 H Chloride 95 L Carbon Dioxide 15 L Anion Gap 19 BUN 50 H Creatinine 3.4 H Est GFR ( Amer) 21 Est GFR (Non-Af Amer) 18 Random Glucose 132 H Calcium 6.4 L Magnesium 1.8 Ferritin 6540.0 Total Bilirubin 1.2 AST 192 H D ALT 75 H D Alkaline Phosphatase 125 Total Protein 5.4 L Albumin 2.2 L Globulin 3.1 Albumin/Globulin Ratio 0.7 L Vitamin B12 612 Folate > 20.0 Critical Care Progress Note - Nutrition Nutrition: Nutrition Category Date Time Status Renal Diet [DIET] Diets 10/27/17 Breakfast Active Assessment/Plan (1) Bradycardia Current Visit: Yes Status: Acute Comment: secondary to third-degree heart block, status post temporary pacemaker insertion Cardiology and EPS evaluation Patient refusing hemodialysis Follow-up lites Neurology evaluation Continue antibiotics for VRE (2) ESRD (end stage renal disease) on dialysis Current Visit: Yes Status: Acute (3) VRE (vancomycin resistant enterococcus) culture positive Current Visit: Yes Status: Acute (4) Cardiomyopathy Current Visit: No Status: Acute Attending/Attestation - Attestation I have personally seen and examined this patient.: Yes I have fully participated in the care of the patient.: Yes I have reviewed all pertinent clinical information: Yes Notes (Text): 11/14/17 16:10 patient seen and examined in the intensive care unit. Patient condition worsened Patient remains hypotensive on max dose of 3 pressors On IV antibiotics Very acidotic Not responding to tactile stimuli Being treated for fungemia and septic shock Case discussed with brother at length/ patient is full code at this point Prognosis poor Continue present treatment for now
--- NOTE | 2017-11-14 13:55 | CP.PCM.PN ---
Subjective - Date & Time of Evaluation Date of Evaluation: 11/14/17 Time of Evaluation: 13:52 - Subjective Subjective: CLINICAALY SAME INTUBATED ON VENT WITH PRESSOR SUPPORT CXR SAME D/W ID , SO FAR ALL CULTURES ARE NEG OF PL. FLUID/LUNG LESS LIKELY THE PNEUMONIA THE MAIN EVENT PERSISTENT CHF IN VIEW OF REFRACTORY CHF , WILL D/W IC IF THERE ARE ANY OPTION FOR MECHANICAL HEAR PUMP TO IMPROVE CO Objective - Vital Signs/Intake and Output Vital Signs (last 24 hours): Temp Pulse Resp BP Pulse Ox 102.9 F H 60 25 H 79/30 L 100 11/14/17 12:00 11/14/17 13:13 11/14/17 13:13 11/14/17 13:13 11/14/17 13:13 Intake and Output: 11/14/17 11/14/17 11:59 23:59 Intake Total 2724.06 184 Output Total 470 Balance 2254.06 184 - Medications Medications: Current Medications Acetaminophen (Tylenol 650mg/20.3ml Solution Ud) 650 mg PO Q4 PRN PRN Reason: Temperature Last Admin: 11/14/17 12:06 Dose: 650 mg Albuterol/Ipratropium (Duoneb 3 Mg/0.5 Mg (3 Ml) Ud) 3 ml INH RQ6 [facility] Last Admin: 11/14/17 07:20 Dose: 3 ml Amiodarone HCl (Cordarone) 200 mg PO BID [facility] Last Admin: 11/14/17 10:26 Dose: 200 mg Epoetin Pepe (Procrit) 10,000 unit IV MWF [facility] Last Admin: 11/12/17 16:38 Dose: 10,000 unit Cefepime HCl (Maxipime Iv 1 Gm Premix) 1 gm in 50 mls @ 100 mls/hr IVPB Q24H [facility] Last Admin: 11/13/17 19:04 Dose: 100 mls/hr Linezolid (Zyvox 600mg/300ml D5w) 600 mg in 300 mls @ 200 mls/hr IVPB Q12H [facility] Last Admin: 11/14/17 05:15 Dose: 200 mls/hr Meropenem 500 mg/ Sodium (Chloride) 100 mls @ 100 mls/hr IVPB Q12H [facility] Last Admin: 11/14/17 10:29 Dose: 100 mls/hr Micafungin Sodium 100 mg/ (Sodium Chloride) 100 mls @ 100 mls/hr IV Q24H [facility] Last Admin: 11/14/17 12:42 Dose: 100 mls/hr Lidocaine HCl/Dextrose (Lidocaine 2 Grams In D5w) 2,000 mg in 500 mls @ 15 mls/ hr IV .Q24H [facility] PRN Reason: 1 MG/MIN Last Admin: 11/13/17 19:05 Dose: 15 mls/hr Phenylephrine HCl 120 mg/ (Sodium Chloride) 1,000 mls @ 10 mls/hr IV .Q24H PRN ; Protocol; 20 MCG/MIN PRN Reason: TITRATE PER MD ORDER Last Admin: 11/14/17 08:36 Dose: 180 mcg/min, 90 mls/hr Norepinephrine Bitartrate 4 mg (/ Sodium Chloride) 254 mls @ 15.24 mls/hr IV .[id number] PRN; Protocol; 4 MCG/MIN PRN Reason: TITRATE PER MD ORDER Last Titration: 11/14/17 12:09 Dose: 20 mcg/min, 76.2 mls/hr Vasopressin 40 units/ Sodium (Chloride) 40 mls @ 2.4 mls/hr IV .[id number] [facility]; 0.04 UNITS/MIN PRN Reason: Protocol Last Admin: 11/14/17 13:13 Dose: 0.04 units/min, 2.4 mls/hr Midazolam HCl (Versed Inj) 2 mg IVP Q4H PRN PRN Reason: Agitation Last Admin: 11/13/17 14:58 Dose: 2 mg Midodrine (Proamatine) 10 mg PO TID [facility] Last Admin: 11/14/17 10:26 Dose: 10 mg Pantoprazole Sodium (Protonix Inj) 40 mg IVP DAILY [facility] Last Admin: 11/14/17 10:26 Dose: 40 mg Vitamin B Complex/Vit C/Folic Acid (Nephro-Aleksandra) 1 tab PO DAILY [facility] Last Admin: 11/14/17 10:27 Dose: 1 tab - Labs Labs: 11/14/17 06:22 11/14/17 06:22 PT 13.9 SECONDS (9.7-12.2) H 10/24/17 06:20 INR 1.2 10/24/17 06:20 APTT 57 SECONDS (21-34) H D 10/30/17 06:12
[2017-11-14] MEDS ORDERED: Albumin Human 25% (12.5 gm/50 ml) IV ONE (13:59)
[2017-11-14] MEDS: Epoetin Alfa 10,000 unit/ml Dialysis IV SCH (15:10)
[2017-11-14] MEDS ORDERED: NOREPINEPHRINE IV PRN (16:02)
[2017-11-14] MEDS ORDERED: SODIUM CHLORIDE 0.9% IV PRN (16:02)
[2017-11-14 16:37] VITALS: PULSE 60
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
[2017-11-14] MEDS: Lidocaine 2 Grams in D5W 2,000 MG/500 ML BAG IV SCH (17:22)
[2017-11-14] MEDS: Cefepime IV 1 gm in Dextrose 1 GM/50 ML BAG IVPB SCH (18:07)
--- NOTE | 2017-11-14 20:26 | CP.PCM.PN ---
Subjective - Date & Time of Evaluation Date of Evaluation: 11/14/17 Time of Evaluation: 12:00 - Subjective Subjective: Chart telemetry and imaging reviewed Multiple episodes of tachycardia was shocked externally and placed on amiodarone followed by lidocaine Intubated minimally responsive normal venous pressures Pacemaker sit clean Normal heart sounds No edema Objective - Vital Signs/Intake and Output Vital Signs (last 24 hours): Temp Pulse Resp BP Pulse Ox 99.5 F 60 32 H 80/33 L 100 11/14/17 16:00 11/14/17 19:19 11/14/17 19:19 11/14/17 19:19 11/14/17 19:09 Intake and Output: 11/14/17 11/15/17 18:59 06:59 Intake Total 4119.86 1252.4 Output Total 510 0 Balance 3609.86 1252.4 - Medications Medications: Current Medications Acetaminophen (Tylenol 650mg/20.3ml Solution Ud) 650 mg PO Q4 PRN PRN Reason: Temperature Last Admin: 11/14/17 12:06 Dose: 650 mg Albuterol/Ipratropium (Duoneb 3 Mg/0.5 Mg (3 Ml) Ud) 3 ml INH RQ6 [facility] Last Admin: 11/14/17 19:17 Dose: 3 ml Amiodarone HCl (Cordarone) 200 mg PO BID [facility] Last Admin: 11/14/17 18:07 Dose: 200 mg Epoetin Pepe (Procrit) 10,000 unit IV MWF [facility] Last Admin: 11/14/17 15:10 Dose: 10,000 unit Cefepime HCl (Maxipime Iv 1 Gm Premix) 1 gm in 50 mls @ 100 mls/hr IVPB Q24H [facility] Last Admin: 11/14/17 18:07 Dose: 100 mls/hr Linezolid (Zyvox 600mg/300ml D5w) 600 mg in 300 mls @ 200 mls/hr IVPB Q12H [facility] Last Admin: 11/14/17 17:24 Dose: 200 mls/hr Meropenem 500 mg/ Sodium (Chloride) 100 mls @ 100 mls/hr IVPB Q12H [facility] Last Admin: 11/14/17 10:29 Dose: 100 mls/hr Micafungin Sodium 100 mg/ (Sodium Chloride) 100 mls @ 100 mls/hr IV Q24H [facility] Last Admin: 11/14/17 12:42 Dose: 100 mls/hr Lidocaine HCl/Dextrose (Lidocaine 2 Grams In D5w) 2,000 mg in 500 mls @ 15 mls/ hr IV .Q24H [facility] PRN Reason: 1 MG/MIN Last Admin: 11/14/17 17:22 Dose: 15 mls/hr Phenylephrine HCl 120 mg/ (Sodium Chloride) 1,000 mls @ 10 mls/hr IV .Q24H PRN ; Protocol; 20 MCG/MIN PRN Reason: TITRATE PER MD ORDER Last Admin: 11/14/17 19:09 Dose: 180 mcg/min, 90 mls/hr Vasopressin 40 units/ Sodium (Chloride) 40 mls @ 2.4 mls/hr IV .[id number] [facility]; 0.04 UNITS/MIN PRN Reason: Protocol Last Admin: 11/14/17 13:13 Dose: 0.04 units/min, 2.4 mls/hr Norepinephrine Bitartrate 16 (mg/ Sodium Chloride) 1,000 mls @ 15 mls/hr IV .Q24H PRN; Protocol; 4 MCG/MIN PRN Reason: TITRATE PER MD ORDER Last Admin: 11/14/17 19:19 Dose: 20 mcg/min, 75 mls/hr Midazolam HCl (Versed Inj) 2 mg IVP Q4H PRN PRN Reason: Agitation Last Admin: 11/13/17 14:58 Dose: 2 mg Midodrine (Proamatine) 10 mg PO TID [facility] Last Admin: 11/14/17 17:24 Dose: 10 mg Pantoprazole Sodium (Protonix Inj) 40 mg IVP DAILY [facility] Last Admin: 11/14/17 10:26 Dose: 40 mg Vitamin B Complex/Vit C/Folic Acid (Nephro-Aleksandra) 1 tab PO DAILY [facility] Last Admin: 11/14/17 10:27 Dose: 1 tab - Labs Labs: 11/14/17 06:22 11/14/17 06:22 PT 13.9 SECONDS (9.7-12.2) H 10/24/17 06:20 INR 1.2 10/24/17 06:20 APTT 57 SECONDS (21-34) H D 10/30/17 06:12 Assessment and Plan - Assessment and Plan (Free Text) Assessment: 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
--- NOTE | 2017-11-14 22:11 | CP.PCM.PN ---
Subjective - Date & Time of Evaluation Date of Evaluation: 11/14/17 Time of Evaluation: 19:00 - Subjective Subjective: Appears comfortable Objective - Vital Signs/Intake and Output Vital Signs (last 24 hours): Temp Pulse Resp BP Pulse Ox 100.8 F H 60 23 80/33 L 100 11/14/17 20:00 11/14/17 20:00 11/14/17 20:00 11/14/17 19:19 11/14/17 19:09 Intake and Output: 11/14/17 11/15/17 18:59 06:59 Intake Total 4119.86 1454.8 Output Total 510 0 Balance 3609.86 1454.8 - Medications Medications: Current Medications Acetaminophen (Tylenol 650mg/20.3ml Solution Ud) 650 mg PO Q4 PRN PRN Reason: Temperature Last Admin: 11/14/17 12:06 Dose: 650 mg Albuterol/Ipratropium (Duoneb 3 Mg/0.5 Mg (3 Ml) Ud) 3 ml INH RQ6 [facility] Last Admin: 11/14/17 19:17 Dose: 3 ml Amiodarone HCl (Cordarone) 200 mg PO BID [facility] Last Admin: 11/14/17 18:07 Dose: 200 mg Epoetin Pepe (Procrit) 10,000 unit IV MWF [facility] Last Admin: 11/14/17 15:10 Dose: 10,000 unit Cefepime HCl (Maxipime Iv 1 Gm Premix) 1 gm in 50 mls @ 100 mls/hr IVPB Q24H [facility] Last Admin: 11/14/17 18:07 Dose: 100 mls/hr Linezolid (Zyvox 600mg/300ml D5w) 600 mg in 300 mls @ 200 mls/hr IVPB Q12H [facility] Last Admin: 11/14/17 17:24 Dose: 200 mls/hr Meropenem 500 mg/ Sodium (Chloride) 100 mls @ 100 mls/hr IVPB Q12H [facility] Last Admin: 11/14/17 10:29 Dose: 100 mls/hr Micafungin Sodium 100 mg/ (Sodium Chloride) 100 mls @ 100 mls/hr IV Q24H [facility] Last Admin: 11/14/17 12:42 Dose: 100 mls/hr Lidocaine HCl/Dextrose (Lidocaine 2 Grams In D5w) 2,000 mg in 500 mls @ 15 mls/ hr IV .Q24H [facility] PRN Reason: 1 MG/MIN Last Admin: 11/14/17 17:22 Dose: 15 mls/hr Phenylephrine HCl 120 mg/ (Sodium Chloride) 1,000 mls @ 10 mls/hr IV .Q24H PRN ; Protocol; 20 MCG/MIN PRN Reason: TITRATE PER MD ORDER Last Admin: 11/14/17 19:09 Dose: 180 mcg/min, 90 mls/hr Vasopressin 40 units/ Sodium (Chloride) 40 mls @ 2.4 mls/hr IV .[id number] [facility]; 0.04 UNITS/MIN PRN Reason: Protocol Last Admin: 11/14/17 13:13 Dose: 0.04 units/min, 2.4 mls/hr Norepinephrine Bitartrate 16 (mg/ Sodium Chloride) 1,000 mls @ 15 mls/hr IV .Q24H PRN; Protocol; 4 MCG/MIN PRN Reason: TITRATE PER MD ORDER Last Admin: 11/14/17 19:19 Dose: 20 mcg/min, 75 mls/hr Midazolam HCl (Versed Inj) 2 mg IVP Q4H PRN PRN Reason: Agitation Last Admin: 11/13/17 14:58 Dose: 2 mg Midodrine (Proamatine) 10 mg PO TID [facility] Last Admin: 11/14/17 17:24 Dose: 10 mg Pantoprazole Sodium (Protonix Inj) 40 mg IVP DAILY [facility] Last Admin: 11/14/17 10:26 Dose: 40 mg Vitamin B Complex/Vit C/Folic Acid (Nephro-Aleksandra) 1 tab PO DAILY [facility] Last Admin: 11/14/17 10:27 Dose: 1 tab - Labs Labs: 11/14/17 06:22 11/14/17 06:22 PT 13.9 SECONDS (9.7-12.2) H 10/24/17 06:20 INR 1.2 10/24/17 06:20 APTT 57 SECONDS (21-34) H D 10/30/17 06:12 - Head Exam Head Exam: ATRAUMATIC - Eye Exam Eye Exam: Normal appearance - ENT Exam ENT Exam: Mucous Membranes Dry - Respiratory Exam Respiratory Exam: Decreased Breath Sounds - Cardiovascular Exam Cardiovascular Exam: +S1, +S2 - GI/Abdominal Exam GI & Abdominal Exam: Normal Bowel Sounds Assessment and Plan (1) Thrombocytopenia Assessment & Plan: low fibrinogen consistent with DIC no current indication for cryopercipitate on treatment for pneumonia repeat fibrinogen in AM Status: Acute (2) Anemia Assessment & Plan: chronic diseas, renal disease hemolysis from DIC Status: Acute
[2017-11-15] MEDS: Albuterol-Ipratrop 3 mg / 0.5 (3 ml) UD INH SCH (02:08)
[2017-11-15 04:21] VITALS: BP 61/19; RESP 20
[2017-11-15 04:36] VITALS: TEMP 99
[2017-11-15] MEDS ORDERED: Calcium Chloride 1000 mg/10 ml Syringe IV ONE (04:55)
[2017-11-15] MEDS ORDERED: Sodium Bicarbonate (8.4%) 50 Meq Syringe ONE (04:55)
[2017-11-15] MEDS ORDERED: EPINEPHrine 1 mg/ml (1:1000) Inj ONE (04:55)
--- NOTE | 2017-11-15 05:22 | CP.PCM.PRO ---
Pronouncement of Note - Clinical Findings Physical Exam: No Response Verbal/Painful Stimuli, Absent Peripheral Pulses{ Carotid & Femoral}, Absent Heart & Breath Sounds, No Pupillary Light Reflex, No Corneal Reflex, Pupils Fixed & Dilated, Absence of Vital Signs - Pronouncement Time Time of Pronouncement of : 05:14 - Notifications Pronouncement Notifications: Family Notified, Atending Notified Senior Interaction Designer Notified: [place]: [id number] Additional Comments: CODE BLUE called 4:54. 5 epi, 2 bicarbs, 1 calcium gluconate, 2 D50 amps. Time of 5:14. Family and Attending notified.
--- NOTE | 2017-11-15 05:36 | CP.PCM.PN ---
Subjective - Date & Time of Evaluation Date of Evaluation: 11/15/17 Time of Evaluation: 04:55 - Subjective Subjective: CODE BLUE called 4:54 Asystole. CPR initiated. No pulse regained throughout 20 minute code. 5 epi, 2 bicarbs, 1 calcium gluconate, 2 D50 amps ( accuchecks <20). Brother called (kiswahili speaking only), notified of running code and discussed code status. He reported he was unable to come to the hospital at this moment. Explained to him the patient has no pulse despite CPR and medications. While speaking to brother patient was pronounced after 20 minutes of CPR. This was conveyed to the brother but it did not seem like he understood. He kept mentioning that he is not from here, can't get to the hospital and he will be here for the arranged family meeting at 9am. I reiterated that his brother , he responded thank you and hung up. Time of 5:14 Family and Attending notified. Objective - Vital Signs/Intake and Output Vital Signs (last 24 hours): Temp Pulse Resp BP Pulse Ox 99 F 60 20 61/19 L 100 11/15/17 04:00 11/15/17 04:00 11/15/17 04:00 11/15/17 03:45 11/14/17 19:09 Intake and Output: 11/14/17 11/15/17 18:59 06:59 Intake Total 4119.86 3074.0 Output Total 510 0 Balance 3609.86 3074.0 - Medications Medications: Current Medications Acetaminophen (Tylenol 650mg/20.3ml Solution Ud) 650 mg PO Q4 PRN PRN Reason: Temperature Last Admin: 11/14/17 12:06 Dose: 650 mg Albuterol/Ipratropium (Duoneb 3 Mg/0.5 Mg (3 Ml) Ud) 3 ml INH RQ6 [facility] Last Admin: 11/15/17 02:08 Dose: 3 ml Amiodarone HCl (Cordarone) 200 mg PO BID [facility] Last Admin: 11/14/17 18:07 Dose: 200 mg Epoetin Pepe (Procrit) 10,000 unit IV MWF [facility] Last Admin: 11/14/17 15:10 Dose: 10,000 unit Cefepime HCl (Maxipime Iv 1 Gm Premix) 1 gm in 50 mls @ 100 mls/hr IVPB Q24H [facility] Last Admin: 11/14/17 18:07 Dose: 100 mls/hr Linezolid (Zyvox 600mg/300ml D5w) 600 mg in 300 mls @ 200 mls/hr IVPB Q12H [facility] Last Admin: 11/14/17 17:24 Dose: 200 mls/hr Meropenem 500 mg/ Sodium (Chloride) 100 mls @ 100 mls/hr IVPB Q12H [facility] Last Admin: 11/14/17 22:31 Dose: 100 mls/hr Micafungin Sodium 100 mg/ (Sodium Chloride) 100 mls @ 100 mls/hr IV Q24H [facility] Last Admin: 11/14/17 12:42 Dose: 100 mls/hr Lidocaine HCl/Dextrose (Lidocaine 2 Grams In D5w) 2,000 mg in 500 mls @ 15 mls/ hr IV .Q24H [facility] PRN Reason: 1 MG/MIN Last Admin: 11/14/17 17:22 Dose: 15 mls/hr Phenylephrine HCl 120 mg/ (Sodium Chloride) 1,000 mls @ 10 mls/hr IV .Q24H PRN ; Protocol; 20 MCG/MIN PRN Reason: TITRATE PER MD ORDER Last Admin: 11/14/17 19:09 Dose: 180 mcg/min, 90 mls/hr Vasopressin 40 units/ Sodium (Chloride) 40 mls @ 2.4 mls/hr IV .[id number] [facility]; 0.04 UNITS/MIN PRN Reason: Protocol Last Admin: 11/14/17 13:13 Dose: 0.04 units/min, 2.4 mls/hr Norepinephrine Bitartrate 16 (mg/ Sodium Chloride) 1,000 mls @ 15 mls/hr IV .Q24H PRN; Protocol; 4 MCG/MIN PRN Reason: TITRATE PER MD ORDER Last Admin: 11/14/17 19:19 Dose: 20 mcg/min, 75 mls/hr Midazolam HCl (Versed Inj) 2 mg IVP Q4H PRN PRN Reason: Agitation Last Admin: 11/13/17 14:58 Dose: 2 mg Midodrine (Proamatine) 10 mg PO TID [facility] Last Admin: 11/14/17 17:24 Dose: 10 mg Pantoprazole Sodium (Protonix Inj) 40 mg IVP DAILY [facility] Last Admin: 11/14/17 10:26 Dose: 40 mg Vitamin B Complex/Vit C/Folic Acid (Nephro-Aleksandra) 1 tab PO DAILY [facility] Last Admin: 11/14/17 10:27 Dose: 1 tab - Labs Labs: 11/14/17 06:22 11/14/17 06:22 PT 13.9 SECONDS (9.7-12.2) H 10/24/17 06:20 INR 1.2 10/24/17 06:20 APTT 57 SECONDS (21-34) H D 10/30/17 06:12
--- NOTE | 2017-11-15 14:03 | CP.PCM.DIS ---
Provider - Provider Date of Admission: 09/24/17 16:37 Attending physician: Akhil Wang MD Time Spent in preparation of Discharge (in minutes): 40 Hospital Course - Lab Results Lab Results: Micro Results 11/09/17 16:25 Blood Blood Culture - Final NO GROWTH AFTER 5 DAYS 11/09/17 16:25 Blood Gram Stain - Final TEST NOT PERFORMED 11/09/17 16:55 Blood Blood Culture - Final NO GROWTH AFTER 5 DAYS 11/09/17 16:55 Blood Gram Stain - Final TEST NOT PERFORMED 11/09/17 16:33 Trachasp Gram Stain - Final 11/09/17 16:33 Trachasp Sputum Culture - Final NORMAL ORAL DOT 11/07/17 14:45 Pleural Fluid Gram Stain - Final 11/07/17 14:45 Pleural Fluid Body Fluid Culture - Final No growth. 11/05/17 18:00 Blood-Venous Blood Culture - Final NO GROWTH AFTER 5 DAYS 11/05/17 18:00 Blood-Venous Gram Stain - Final TEST NOT PERFORMED 11/05/17 18:00 Blood-Venous Blood Culture - Final NO GROWTH AFTER 5 DAYS 11/05/17 18:00 Blood-Venous Gram Stain - Final TEST NOT PERFORMED 11/07/17 15:06 Other: Please Indicate Mycobacterial Culture - Preliminary 11/07/17 14:45 Pleural Fluid Anaerobic Culture - Final NO ANAEROBES ISOLATED. 11/05/17 17:24 Urine,Catheterized Urine Culture - Final Pseudomonas Aeruginosa Enterococcus Faecalis 11/05/17 18:00 Naris MRSA Culture (Admit) - Final MRSA NOT DETECTED 10/30/17 16:48 Nose MRSA Culture - Final MRSA NOT DETECTED 10/19/17 19:00 Naris MRSA Culture (Admit) - Final MRSA NOT DETECTED 10/09/17 05:03 Urine,Catheterized Urine Culture - Final MULTIPLE SPECIES. SUGGEST REPEAT SPECIMEN. 10/02/17 08:00 Urine,Beck Urine Culture - Final Pseudomonas Aeruginosa 09/27/17 18:53 Urine,Catheterized Urine Culture - Final Escherichia Coli Vancomycin Res E.faecalis 09/24/17 13:53 Urine Urine Culture - Final Escherichia Coli Vancomycin Res E.faecalis Most Recent Lab Values WBC 6.1 K/uL (4.8-10.8) 11/14/17 06:22 RBC 2.87 Mil/uL (4.40-5.90) L 11/14/17 06:22 Hgb 8.8 g/dL (12.0-18.0) L 11/14/17 06:22 Hct 27.4 % (35.0-51.0) L 11/14/17 06:22 MCV 95.5 fL (80.0-94.0) H 11/14/17 06:22 MCH 30.6 pg (27.0-31.0) 11/14/17 06:22 MCHC 32.0 g/dL (33.0-37.0) L 11/14/17 06:22 RDW 19.8 % (11.5-14.5) H 11/14/17 06:22 Plt Count 31 K/uL (130-400) L 11/14/17 06:22 MPV 9.6 fL (7.2-11.7) 11/14/17 06:22 Neut % (Auto) 88.0 % (50.0-75.0) H 11/14/17 06:22 Lymph % (Auto) 6.0 % (20.0-40.0) L 11/14/17 06:22 [place] % (Auto) 6.0 % (0.0-10.0) 11/14/17 06:22 Eos % (Auto) 0.0 % (0.0-4.0) 11/14/17 06:22 Baso % (Auto) 0.0 % (0.0-2.0) 11/14/17 06:22 Neut # 5.3 K/uL (1.8-7.0) 11/14/17 06:22 Lymph # 0.4 K/uL (1.0-4.3) L 11/14/17 06:22 [place] # 0.4 K/uL (0.0-0.8) 11/14/17 06:22 Eos # 0.0 K/uL (0.0-0.7) 11/14/17 06:22 Baso # 0.0 K/uL (0.0-0.2) 11/14/17 06:22 Neutrophils % (Manual) 86 % (50-75) H 11/14/17 06:22 Band Neutrophils % 4 % (0-2) H 11/14/17 06:22 Lymphocytes % (Manual) 6 % (20-40) L 11/14/17 06:22 Reactive Lymphs % 1 % (0-0) H 11/10/17 06:39 Monocytes % (Manual) 4 % (0-10) 11/14/17 06:22 Eosinophils % (Manual) 1 % (0-4) 11/05/17 17:42 Nucleated RBC % 2 % (0-0) H 11/14/17 06:22 Differential Comment 11/06/17 07:51 Toxic Granulation Present 11/12/17 06:00 Platelet Estimate Markedly decreased (NORMAL) L 11/14/17 06:22 Large Platelets Present 11/13/17 06:27 Polychromasia Slight 11/13/17 06:27 Hypochromasia (manual) Slight 11/13/17 06:27 Poikilocytosis (manual Slight 11/14/17 06:22 Basophilic Stippling Slight 11/12/17 06:00 Anisocytosis (manual) Moderate 11/14/17 06:22 Microcytosis (manual) Slight 11/05/17 17:42 Macrocytosis (manual) Slight 11/13/17 06:27 Target Cells Slight 11/13/17 06:27 Tear Drop Cells Slight 11/10/17 06:39 Ovalocytes Slight 11/13/17 06:27 Duc Cells Moderate 11/14/17 06:22 Schistocytes Slight 11/11/17 04:27 Retic Count 0.9 % (0.5-1.5) 11/14/17 06:22 PT 13.9 SECONDS (9.7-12.2) H 10/24/17 06:20 INR 1.2 10/24/17 06:20 APTT 57 SECONDS (21-34) H D 10/30/17 06:12 Fibrinogen 179 mg/dL (200-400) L 11/13/17 17:15 Puncture Site R bra 11/14/17 05:40 pCO2 31 mm/Hg (35-45) L 11/14/17 05:40 pO2 252 mm/Hg (80-100) H 11/14/17 05:40 HCO3 13.9 mmol/L (21-28) L 11/14/17 05:40 ABG pH 7.21 (7.35-7.45) L 11/14/17 05:40 ABG Total CO2 13.4 mmol/L (22-28) L 11/14/17 05:40 ABG O2 Saturation 98.9 % (95-98) H 11/14/17 05:40 ABG Base Excess -14.2 mmol/L (-2.0-3.0) L 11/14/17 05:40 ABG Hemoglobin 7.3 g/dL (11.7-17.4) L 11/14/17 05:40 ABG Carboxyhemoglobin 0.4 % (0.5-1.5) L 11/14/17 05:40 POC ABG HHb (Measured) 1.1 % (0.0-5.0) 11/14/17 05:40 ABG Methemoglobin 1.5 % (0.0-3.0) 11/14/17 05:40 Scar Test Na 11/14/17 05:40 ABG Potassium 3.3 mmol/L (3.6-5.2) L 11/11/17 22:15 A-a O2 Difference 422.0 mm/Hg 11/14/17 05:40 Respiratory Index 1.7 11/14/17 05:40 Hgb O2 Saturation 97.0 % (95.0-98.0) 11/14/17 05:40 Sodium 134.0 mmol/l (132-148) 11/11/17 22:15 Chloride 101.0 mmol/L (98-107) 11/11/17 22:15 Glucose 117 mg/dl (75-110) H 11/11/17 22:15 Lactate 2.8 mmol/L (0.7-2.1) H 11/11/17 22:15 Liter Flow 5.0 11/05/17 09:14 Vent Mode Prvc 11/14/17 05:40 Mechanical Rate 18 11/14/17 05:40 FiO2 100.0 % 11/14/17 05:40 Tidal Volume 400 11/14/17 05:40 PEEP 5 11/14/17 05:40 Pressure Support 10 11/09/17 05:15 CPAP 5 11/09/17 05:15 Sodium 124 mmol/L (132-148) L 11/14/17 06:22 Potassium 5.8 mmol/L (3.6-5.2) H 11/14/17 06:22 Chloride 95 mmol/L (98-107) L 11/14/17 06:22 Carbon Dioxide 15 mmol/L (22-30) L 11/14/17 06:22 Anion Gap 19 (10-20) 11/14/17 06:22 BUN 50 mg/dL (9-20) H 11/14/17 06:22 Creatinine 3.4 mg/dL (0.8-1.5) H 11/14/17 06:22 Est GFR ( Amer) 21 11/14/17 06:22 Est GFR (Non-Af Amer) 18 11/14/17 06:22 POC Glucose (mg/dL) < 20 mg/dL (65-110) L* 11/15/17 05:07 Random Glucose 132 mg/dL (75-110) H 11/14/17 06:22 Calcium 6.4 mg/dl (8.6-10.4) L 11/14/17 06:22 Phosphorus 3.5 mg/dL (2.5-4.5) 11/13/17 06:27 Magnesium 1.8 mg/dL (1.6-2.3) 11/14/17 06:22 % Saturation 3.7 (20-55) L 11/05/17 12:49 Ferritin 6540.0 ng/mL 11/14/17 06:22 Total Bilirubin 1.2 mg/dL (0.2-1.3) 11/14/17 06:22 AST 192 U/L (17-59) H D 11/14/17 06:22 ALT 75 U/L (21-72) H D 11/14/17 06:22 Alkaline Phosphatase 125 U/L (38-126) 11/14/17 06:22 Total Creatine Kinase 24 U/L (55-170) L 10/12/17 21:09 CK-MB (Mass) 1.66 ng/mL (0.0-3.38) 10/12/17 21:09 Troponin I 0.0440 ng/mL (0.00-0.120) 10/12/17 21:09 Total Protein 5.4 g/dL (6.3-8.3) L 11/14/17 06:22 Albumin 2.2 g/dL (3.5-5.0) L 11/14/17 06:22 Globulin 3.1 gm/dL (2.2-3.9) 11/14/17 06:22 Albumin/Globulin Ratio 0.7 (1.0-2.1) L 11/14/17 06:22 Prostate Specific Ag 10.7 ng/mL (0.00-4.0) H 11/05/17 17:42 Vitamin B12 612 pg/mL (239-931) 11/14/17 06:22 Folate > 20.0 ng/mL 11/14/17 06:22 Procalcitonin 5.99 NG/ML (0.19-0.49) H 11/06/17 12:07 TSH 3rd Generation 1.42 mIU/L (0.46-4.68) 10/20/17 06:19 PTH Intact Whole Molec 257 pg/mL (14-64) H 09/28/17 06:41 Cortisol AM Sample 14.4 ug/dL (4.46-22.7) 10/06/17 06:29 Arterial Blood Potassium 3.3 mmol/L (3.6-5.2) L 11/11/17 22:15 Urine Color Yellow (YELLOW) 10/09/17 17:19 Urine Clarity Hazy (Clear) 10/09/17 17:19 Urine pH 5.0 (5.0-8.0) 10/09/17 17:19 Ur Specific [place] 1.016 (1.003-1.030) 10/09/17 17:19 Urine Protein 2+ mg/dL (NEGATIVE) H 10/09/17 17:19 Urine Glucose (UA) Normal mg/dL (Normal) 10/09/17 17:19 Urine Ketones Negative mg/dL (NEGATIVE) 10/09/17 17:19 Urine Blood 2+ (NEGATIVE) H 10/09/17 17:19 Urine Nitrate Negative (NEGATIVE) 10/09/17 17:19 Urine Bilirubin Negative (NEGATIVE) 10/09/17 17:19 Urine Urobilinogen Normal mg/dL (0.2-1.0) 10/09/17 17:19 Ur Leukocyte Esterase 3+ [place]/uL (Negative) H 10/09/17 17:19 Urine WBC (Auto) 689 /hpf (0-5) H 10/09/17 17:19 Urine RBC (Auto) 22 /hpf (0-3) H 10/09/17 17:19 Urine WBC Clumps (Auto) Mod /hpf (NONE) H 10/09/17 17:19 Ur Squamous Epith Cells < 1 /hpf (0-5) 10/02/17 04:50 Urine Bacteria Many (<OCC) H 10/09/17 17:19 Fluid Source Pleural 11/07/17 15:53 Fluid Appearance Sl cloudy (CLEAR) 11/07/17 15:53 Fluid WBC 120.0 /mm3 (0.0-300.0) 11/07/17 15:53 Fluid RBC 1990.0 /mm3 (0.0-0.0) H 11/07/17 15:53 Fluid Tot Cell Count 100 (0-0) H 11/07/17 15:53 Fluid Neutrophils 9.0 % (0-0) H 11/07/17 15:53 Fluid Lymphocytes 40.0 % (0-0) H 11/07/17 15:53 Fld Monocyte/Macrophag 51 % (0-0) H 11/07/17 15:53 Fluid Diff Path Review 11/07/17 15:53 Fluid Comment 11/07/17 15:53 Pleural Total Protein <3.0 g/dL 11/07/17 15:53 Pleural LDH 163 U/L 11/07/17 15:53 Pleural Glucose 117 mg/dL 11/07/17 15:53 Pleural Amylase 23 U/L 11/07/17 15:53 Pleural Cholesterol 19 mg/dL 11/07/17 15:53 Pleural Triglycerides 15 mg/dL 11/07/17 15:53 Stool Occult Blood Negative (NEGATIVE) 09/24/17 13:50 Hepatitis A IgM Ab Negative (NEGATIVE) 10/31/17 20:20 Hep Bs Antigen Negative (NEGATIVE) 10/31/17 20:20 Hep Bs Antibody Negative (NEGATIVE) 09/28/17 06:41 Hep B Core IgM Ab Negative (NEGATIVE) 10/31/17 20:20 Hepatitis C Antibody Reactive (NEGATIVE) 10/31/17 20:20 HCV RNA Genotype LiPA Not detected (Not Detected) 10/02/17 07:41 Blood Type O POSITIVE 10/07/17 07:57 Antibody Screen Negative 10/07/17 07:57 - Hospital Course Hospital Course: 2 years old male with a history of chronic renal failure. 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 According to the patient the catheter blocked and patient was unable to pass urine. In the emergency room patient had a BUn 138 and creatinine of 8.1 K was normal. Patient is now admitted for further evaluation. Patient had a similar episode in the last admission and patient refuses renal dialysis the last creatinine was 4.8. 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 Patient also has intermittent CHF with pleural effusion which required pleural tap on the last admission PT HAD A PROLONGED COARSE IN HOSPITAL MULTIPLE CONSULTS WERE ON CASE HAD PERM PACEMAKER DIALYSIS WAS DONE , SOMETIMES INCOMPLETELY PT REFUSED LAST DAYS BEFORE . PT WAS INTUBATED WITH POSSIBLE PNEUMONIA , ALL CULTURES WERE NEG IC WAS CONSULTED FOR HEARMATE TO IMPROVE CO PT WAS PHYSICALLY WEAK FOR ANY INVASIVE INTERVENTION PT BECAME LEILANI ON MAX VASO PRESSORS AND COULD NOT BE REVIVED Discharge Exam - Head Exam Head Exam: ATRAUMATIC Discharge Plan - Follow Up Plan Condition: SERIOUS Disposition: HOME/ ROUTINE Instructions: Heart Failure (DC), Urinary Tract Infection in Men (DC), Dialysis Diet (DC), Arteriovenous Fistula Creation for Hemodialysis (DC), End Stage Kidney Disease (DC), Perma-cath Placement (DC) Additional Instructions: PLEASE ADMIT PATIENT UNDER DR. WANG SERVICE - CALL DR. WANG UPON PATIENT ARRIVAL TO [facility] CONTINUE HD SCHEDULED - [facility] CONTINUE GENTAMYCIN X 2 DOSES POST HD ON 10/15/10/07- RX FAXED TO [facility]ENTER CONTINUE MEDICATION PER MED. REC. KEEP F/C IN UNTIL SEEN BY UROLOGIST - DR. HARRISON. Y- CALL AND MAKE APPOINTMENT T F/U WITH DR. KULKARNI OFFICE IN 2-3 WEEKS KEEP LIFE VEST ALL TIMES Referrals: Akhil Wang MD [Staff Provider] -
== END 2017-11-15 05:15 | DRG 673 ==
LOC: C.ER 12:39 → C.9E 16:37 → C.6T 17:35 → UNDODISIN 10-10 16:30 → C.9I 10-19 15:32 → C.5S 10-30 17:40 → C.9I 11-05 16:43
PROVIDERS: ADMIT Internal Medicine Cardiovascular Disease; ATTEND Internal Medicine Cardiovascular Disease
PROC: 02HV33Z Insertion of Infusion Device into Superior Vena Cava, Percutaneous Approach (ICD-10-PCS; 2017-10-02)
PROC: 03180ZD Bypass Left Brachial Artery to Upper Arm Vein, Open Approach (ICD-10-PCS; 2017-10-08)
PROC: 4A023N7 Measurement of Cardiac Sampling and Pressure, Left Heart, Percutaneous Approach (ICD-10-PCS; 2017-10-10)
PROC: B2111ZZ Fluoroscopy of Multiple Coronary Arteries using Low Osmolar Contrast (ICD-10-PCS; 2017-10-10)
PROC: 5A1955Z Respiratory Ventilation, Greater than 96 Consecutive Hours (ICD-10-PCS; 2017-10-19)
PROC: 02H63JZ Insertion of Pacemaker Lead into Right Atrium, Percutaneous Approach (ICD-10-PCS; 2017-10-26)
PROC: 0JH606Z Insertion of Pacemaker, Dual Chamber into Chest Subcutaneous Tissue and Fascia, Open Approach (ICD-10-PCS; 2017-10-26)
PROC: 02HK3JZ Insertion of Pacemaker Lead into Right Ventricle, Percutaneous Approach (ICD-10-PCS; 2017-10-26)
PROC: 0BH17EZ Insertion of Endotracheal Airway into Trachea, Via Natural or Artificial Opening (ICD-10-PCS; principal; 2017-11-05)
PROC: 5A1955Z Respiratory Ventilation, Greater than 96 Consecutive Hours (ICD-10-PCS; 2017-11-05)
PROC: 0W9930Z Drainage of Right Pleural Cavity with Drainage Device, Percutaneous Approach (ICD-10-PCS; 2017-11-07)
PROC: 0W9B3ZZ Drainage of Left Pleural Cavity, Percutaneous Approach (ICD-10-PCS; 2017-11-09)
PROC: 0W9B30Z Drainage of Left Pleural Cavity with Drainage Device, Percutaneous Approach (ICD-10-PCS; 2017-11-09)
PROC: 5A1D70Z Performance of Urinary Filtration, Intermittent, Less than 6 Hours Per Day (ICD-10-PCS; 2017-11-12)
PROC: 5A1D70Z Performance of Urinary Filtration, Intermittent, Less than 6 Hours Per Day (ICD-10-PCS; 2017-11-14)
DX: T83.511A Infection and inflammatory reaction due to indwelling urethral catheter, initial encounter (principal); J96.01 Acute respiratory failure with hypoxia; I46.9 Cardiac arrest, cause unspecified; A41.52 Sepsis due to Pseudomonas; E43 Unspecified severe protein-calorie malnutrition; I44.2 Atrioventricular block, complete; N17.9 Acute kidney failure, unspecified; J18.9 Pneumonia, unspecified organism; G93.41 Metabolic encephalopathy; I13.2 Hypertensive heart and chronic kidney disease with heart failure and with stage 5 chronic kidney disease, or end stage renal disease; I50.23 Acute on chronic systolic (congestive) heart failure; N18.6 End stage renal disease; I82.A19 Acute embolism and thrombosis of unspecified axillary vein; I47.2 Ventricular tachycardia; D68.9 Coagulation defect, unspecified; E87.1 Hypo-osmolality and hyponatremia; E87.2 Acidosis; I82.619 Acute embolism and thrombosis of superficial veins of unspecified upper extremity; I42.0 Dilated cardiomyopathy; J93.9 Pneumothorax, unspecified; N13.30 Unspecified hydronephrosis; R64 Cachexia; I49.01 Ventricular fibrillation; D69.6 Thrombocytopenia, unspecified; B19.20 Unspecified viral hepatitis C without hepatic coma; E87.5 Hyperkalemia; I95.89 Other hypotension; N40.1 Benign prostatic hyperplasia with lower urinary tract symptoms; R33.8 Other retention of urine; Z16.21 Resistance to vancomycin; Z91.19 Patient's noncompliance with other medical treatment and regimen; Z99.2 Dependence on renal dialysis; Z68.20 Body mass index [BMI] 20.0-20.9, adult; Z91.15 Patient's noncompliance with renal dialysis; I80.8 Phlebitis and thrombophlebitis of other sites; I25.5 Ischemic cardiomyopathy; I25.10 Atherosclerotic heart disease of native coronary artery without angina pectoris; D64.89 Other specified anemias; G25.3 Myoclonus